=== PATIENT | female | born 1935 | race Caucasian/White ===

== ENCOUNTER 2018-03-28 20:14 | Observation (INO) | payer MEDICARE ==
[~2018-03-28] VITALS: Ht 162.6 cm; Wt 54.4 kg
[~2018-03-28 20:14] MED LIST: ADULT ASPIRIN81 MG; ALLEGRA ALLERG180 MG PO; AMARYL1 MG PO; AMLODIPINE BESYL5 MG PO; ASPIR 8181 MG PO; ATORVASTATIN CA10 MG PO; CYANOCOBAL1000 MCG/M PO; DYNACIRC; FISH OIL 1,0001 EAC2 PO; FISH OIL OMEGA1 EACH PO; GABAPENTIN100 MG PO; INTEGRA PLUS C1 EACH PO; LEVOTHROID75 MCG PO; LOSARTAN POTASS25 MG PO; METOPROLOL SUCC50 MG PO; OMEPRAZOLE40 MG PO; PAROXETINE HCL20 MG PO; STOOL SOFTENER1 EAC2; STOOL SOFTENER100 MG PO; TRICOR48 MG PO; Z.0.AMARYL1 MG; Z.0.LIPITOR10 MG; Z.0.PRILOSEC20 MG; Z.0.SYNTHROID75 MCG; Z.0.TOPROL XL50 MG; Z.0.TRICOR48 MG; ZOFRAN PO; [UNRECOGNIZED DRUG - OTHER]
[2018-03-28 20:47] VITALS: BP 158/70
[2018-03-28 20:59] VITALS: BP 158/70
[2018-03-28] MEDS ORDERED: FAMOTIDINE20 MG PO (21:05)
[2018-03-28] MEDS ORDERED: PROLIA60 MG/1 ML IM (21:05)
[2018-03-28] MEDS ORDERED: CALCITRIOL0.25 MCG PO (21:05)
[2018-03-28] MEDS ORDERED: RENAGEL800 MG PO (21:05)
[2018-03-28] MEDS ORDERED: BUMETANIDE1 MG PO (21:05)
[2018-03-28] MEDS ORDERED: ACETAMINOPHEN 325 MG TAB PO PRN (21:15)
[2018-03-28] MEDS ORDERED: DENOSUMAB 60 MG IM SCH (21:15)
[2018-03-28 21:29] VITALS: BP 158/70
[2018-03-29] VITALS (8 sets, daily range): BP systolic 143–163; BP diastolic 65–70
[2018-03-29] MEDS: LEVOTHYROXINE SODIUM 75 MCG TAB PO SCH (06:26)
[2018-03-29] MEDS ORDERED: DENOSUMAB 60 MG IM SCH (06:30)
[2018-03-29 08:03] LABS: BASOPHILS % 0.6 % (0.0-1.0); EOSINOPHILS # (AUTO) 0.3 (0.0-0.4); EOSINOPHILS % 4.2 % (0.0-6.0); HEMATOCRIT 34.4 % (34.2-44.1); HEMOGLOBIN 11.6 g/dL (12.0-16.0); LYMPHOCYTES # (AUTO) 1.5 (1.0-3.2); LYMPHOCYTES % 22.9 % (18.0-39.1); MEAN CORPUSCULAR HEMOGLOBIN 30.2 pg (28-32); MEAN CORPUSCULAR HGB CONC 33.7 g/dL (31-35); MEAN CORPUSCULAR VOLUME 89.6 fL (81-99); MONOCYTES # (AUTO) 0.7 (0.2-0.8); MONOCYTES % 10.8 % (4.4-11.3); NEUTROPHILS # (AUTO) 4.1 (2.1-6.9); NEUTROPHILS % 61.2 % (38.7-80.0); PLATELET COUNT 94 x10e3/uL (140-360); RED BLOOD COUNT 3.84 x10e6/uL (3.6-5.1); RED CELL DISTRIBUTION WIDTH 13.2 % (11.7-14.4)
[2018-03-29 08:18] LABS: CREATININE, SERUM 6.02 mg/dL (0.57-1.11)
[2018-03-29] MEDS ORDERED: CALCITRIOL 0.25 MCG CAP PO SCH (09:00)
[2018-03-29] MEDS ORDERED: LORATADINE 10 MG TAB PO PRN (09:00)
[2018-03-29] MEDS: SEVELAMER CARBONATE 800 MG TAB PO SCH ×3 (09:16→17:07)
[2018-03-29] MEDS: AMLODIPINE BESYLATE 5 MG TAB PO SCH (09:16)
[2018-03-29] MEDS: OMEGA 3 POLYUNSAT FATTY ACIDS 1000 MG SOFTGEL PO SCH ×2 (09:16→17:07)
[2018-03-29] MEDS: BUMETANIDE 1 MG TAB PO SCH (09:16)
[2018-03-29] MEDS: PAROXETINE HCL 20 MG TAB PO SCH (09:16)
[2018-03-29] MEDS: FAMOTIDINE 20 MG TAB PO SCH (09:16)
[2018-03-29] MEDS ORDERED: PANTOPRAZOLE SOD 40 MG TABEC PO ONE (10:15)
[2018-03-29] MEDS ORDERED: CLOPIDOGREL BISULFATE 75 MG TAB PO ONE (12:15)
--- NOTE | 2018-03-29 13:25 | Consultation ---
DATE OF CONSULTATION: March 29, 2018 CARDIAC CONSULTATION REASON FOR CONSULTATION: Chest pain. HISTORY: This is a delightful, 82-year-old lady, who is known to me over the years. She is known with coronary artery disease, hypertension, hypercholesterolemia, diabetes mellitus, chronic kidney disease. The patient in 2014 had PD dialysis. It was stopped in June 2015 and then restarted again in November 2016. Patient is followed in my office. Her latest nuclear stress test was in early January 2018 which was an adenosine nuclear stress test, and it showed only presence of a small defect. We elected to treat her medically. Patient is maintained on appropriate medical therapy. However, for the last 3 days, she is having repetitive severe chest pain radiating to the back associated with diaphoresis and dizzy spells. She came to the emergency room and subsequently admitted to this institution with unstable coronary syndrome. Cardiac consultation is obtained. The patient's symptoms are as per above. There are no congestive heart failure-like symptoms although sometimes she gets easy fatigability and shortness of breath on exertion. Patient is on appropriate medical therapy with beta ilan, calcium channel ilan, statin and aspirin. REVIEW OF SYSTEMS GENERAL: No fever. No chills. HEENT: Unremarkable. PULMONARY: Moderate shortness of breath on exertion. Cough. No pleuritic chest pain. CARDIAC: As per acute illness. GI: No hematemesis. No melena. HEMATOLOGY: Easy bruising but no bleeding. : Patient on PD dialysis. MUSCULOSKELETAL: Stiffness in the morning. PERIPHERAL VASCULAR: No claudication. NEUROLOGICAL: No headache. No seizure activity. SOCIAL HISTORY: She is . She never smoked. She is a nonalcohol-drinker. 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 HOME MEDICATIONS: Include: 1. Aspirin 81 mg a day. 2. Metoprolol succinate 50 mg a day. 3. Amlodipine 5 mg twice a day. 4. Atorvastatin 20 mg a day. 5. Fish oil 1 capsule twice a day. 6. Levothyroxine 75 mcg a day. 7. Sodium bicarbonate. 8. Pepcid. 9. Vitamin D. 10. Paroxetine 10 mg a day. 11. Vitamin B12 monthly. 12. Calcitriol. 13. Terazosin. 14. Nubia. 15. Prolia. 16. P.R.N. Zofran. ALLERGIES: PLAVIX IN THE PAST, PATIENT HAD RASH. ATORVASTATIN IN THE PAST, PATIENT ALSO HAD A RASH, BUT CURRENTLY SHE IS TOLERATING HER ATORVASTATIN. SOCIAL HISTORY: She is . She is a nonsmoker. She does not drink alcohol. 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 PAST MEDICAL HISTORY 1. Coronary artery disease. 2. Peritoneal dialysis in 2014 and restarted again in November 2016, and since then she is on. 3. Anemia. 4. Diabetes mellitus. 5. Hypertension. 6. Hypercholesterolemia. 7. Hypothyroidism. 8. Palpitations. 9. Osteoporosis. 10. Partial hysterectomy. 11. Cholecystectomy. 12. [place] PD dialysis placement in February 2015, removal in June 2015, replacement in December 2016. PHYSICAL EXAMINATION GENERAL: Nice built lady in no acute distress. Height 5 feet 4 inches, weight of 120 pounds. VITALS: Blood pressure 160/70. Heart rate of 60. Respiratory rate of 18. HEENT: Pupils are reactive. NECK: No elevation of jugular venous pulsation. CHEST: Decreased air entry in bases. HEART: PMI at 5th left intercostal space. Normal 1st and 2nd heart sounds. ABDOMEN: Soft, with good bowel sounds. No organomegaly. PD catheter noted in place. EXTREMITIES: No cyanosis. No clubbing. No signs of deep venous thrombosis. NEUROLOGIC: Nonfocal. IMPRESSION AND PLAN 1. Coronary artery disease with angina, unstable coronary syndrome. 2. Positive stress test in January 2018, treated medically. 3. Mild aortic stenosis documented by echocardiogram showing mean gradient of 10 mmHg with mild aortic regurgitation. 4. Hypercholesterolemia. 5. End-stage renal disease on peritoneal dialysis. Since the patient had already noninvasive cardiac workup and her other health problems, plan will be for cardiac catheterization in the morning. The procedure, risks, benefits, and alternatives are discussed and explained. Will continue her beta ilan. Will continue her statin. Will give her a loading dose of Plavix with observation for her rash. Depending on her course, further steps to be done. Job#: [id number]
--- NOTE | 2018-03-29 15:11 | Consultation ---
DATE OF CONSULTATION: March 29, 2018 HISTORY OF PRESENT ILLNESS: Patient is known to our nephrology service. She is an 82-year-old white female with underlying history of end-stage renal disease, presented with heartburn which was lasting intermittently for the last 24 hours. Got worse with some chest tightness. Subsequently came into the hospital. Her manager hydraulic is Dr. Man. She has had past history of end-stage renal disease, hypertension, secondary hyperparathyroidism, history of hyperlipidemia, hypothyroidism, history of type 2 diabetes, history of prior cholecystectomy, history of positive stress test, mild aortic stenosis, history of coronary artery disease. ALLERGIES: TO LANSOPRAZOLE. CURRENT MEDICATIONS 1. Patient is on normal saline which I have stopped. 2. She is on amlodipine 10 mg daily. 3. Aspirin 81 mg bedtime. 4. Atorvastatin 20 mg bedtime. 5. Bumex 2 mg daily. 6. She is on calcitriol 0.25 mg daily. 7. Famotidine. 8. Levothyroxine 75 mcg daily. 9. Metoprolol 50 mg p.o. nightly. 10. [place]-3 fatty acid. 11. Pantoprazole. 12. Paxil 10 mg daily. 13. Renagel 800 mg p.o. t.i.d. with meals. 14. Denosumab (Prolia) 60 mg IM p.r.n. SOCIAL HISTORY: Does not smoke or drink. . FAMILY HISTORY: Significant for hypertension. PHYSICAL EXAMINATION GENERAL: Awake, alert, lying supine. No apparent distress. VITALS: Blood pressure 160/67, pulse rate 66, afebrile. HEAD AND NECK: Cornea clear. Mucosa dry. Neck veins flat. LUNGS: Relatively clear. HEART: S1 and S2 audible. ABDOMEN: Soft, nontender. Peritoneal dialysis exit site satisfactory. Dressing noted, dry. LOWER EXTREMITY EXAMINATION: No edema. LABORATORY DATA: White count 6.69, hemoglobin 11.6. Potassium 4, creatinine 6, calcium 10. IMPRESSION AND PLAN: End-stage renal disease with angina. Workup deferred to Dr. Man. Calcium upper limit of normal. I will discontinue calcitriol. Arrange for peritoneal dialysis. She does 1.5% dextrose alternating with 2.5%. She does 5 exchanges with 500 mL of last bag option. Will do 5 cycles tonight and with a 1,000-mL last bag option in the morning. Volume status appears stable. Blood pressure stable. Electrolytes noted. Calcitriol discontinued. Please see orders. Job#: [id number] TA
[2018-03-29] MEDS: METOPROLOL SUCCINATE 50 MG TAB XL PO SCH (20:51)
[2018-03-29] MEDS: ASPIRIN 81 MG CHEW TAB PO SCH (20:51)
[2018-03-29] MEDS ORDERED: ATORVASTATIN 10 MG TAB PO SCH (21:00)
[2018-03-30] VITALS (14 sets, daily range): BP systolic 132–169; BP diastolic 51–71
[2018-03-30] MEDS: LEVOTHYROXINE SODIUM 75 MCG TAB PO SCH (05:21)
[2018-03-30 05:33] LABS: BASOPHILS % 0.3 % (0.0-1.0); EOSINOPHILS # (AUTO) 0.3 (0.0-0.4); EOSINOPHILS % 3.8 % (0.0-6.0); HEMATOCRIT 34.8 % (34.2-44.1); HEMOGLOBIN 11.6 g/dL (12.0-16.0); LYMPHOCYTES # (AUTO) 0.5 (1.0-3.2); MEAN CORPUSCULAR HEMOGLOBIN 30.2 pg (28-32); MEAN CORPUSCULAR HGB CONC 33.3 g/dL (31-35); MEAN CORPUSCULAR VOLUME 90.6 fL (81-99); MONOCYTES # (AUTO) 0.7 (0.2-0.8); MONOCYTES % 10.7 % (4.4-11.3); NEUTROPHILS % 76.4 % (38.7-80.0); PLATELET COUNT 92 x10e3/uL (140-360); RED BLOOD COUNT 3.84 x10e6/uL (3.6-5.1); RED CELL DISTRIBUTION WIDTH 13.3 % (11.7-14.4)
[2018-03-30 05:55] LABS: CHOL/HDL RATIO 3.6 (3.0-3.6)
[2018-03-30 06:19] LABS: THYROID STIMULATING HORMONE 1.496 uIU/mL (0.350-4.940)
[2018-03-30] MEDS ORDERED: SODIUM CHLORIDE 0.9% 1000ML 1,000 ML IV SCH (07:30)
[2018-03-30] MEDS: PANTOPRAZOLE SOD 40 MG TABEC PO SCH (07:30)
[2018-03-30] MEDS: FAMOTIDINE 20 MG TAB PO SCH (07:30)
[2018-03-30] MEDS: SEVELAMER CARBONATE 800 MG TAB PO SCH ×3 (07:41→17:00)
[2018-03-30] MEDS: OMEGA 3 POLYUNSAT FATTY ACIDS 1000 MG SOFTGEL PO SCH ×2 (07:41→17:00)
[2018-03-30] MEDS: PAROXETINE HCL 20 MG TAB PO SCH (07:42)
[2018-03-30] MEDS: AMLODIPINE BESYLATE 5 MG TAB PO SCH (08:25)
[2018-03-30] MEDS: BUMETANIDE 1 MG TAB PO SCH (08:25)
[2018-03-30 08:41] LABS: EOSINOPHILS % (MANUAL) 2 % (0-7); LYMPHOCYTES % (MANUAL) 7 % (19-48); MONOCYTES % (MANUAL) 10 % (3.4-9.0); NEUTROPHILS % (MANUAL) 81 % (40-74)
[2018-03-30 08:42] LABS: ANISOCYTOSIS SLIGHT; HYPOCHROMASIA SLIGHT; PLATELET ESTIMATE ADEQUATE; PLATELET MORPHOLOGY COMMENT NORMAL; RBC MORPHOLOGY COMMENT NORMAL
[2018-03-30] MEDS ORDERED: CALCITRIOL 0.25 MCG CAP PO SCH (09:00)
[2018-03-30] MEDS ORDERED: LIDOCAINE HCL 2% LOCAL 20 ML VIAL ONE (10:22)
[2018-03-30] MEDS ORDERED: IOPAMIDOL 370 MG/ML 200 ML INFUS..BTL INJ ONE (10:22)
[2018-03-30] MEDS ORDERED: HEPARIN SOD/SOD CHLORIDE 2,000 ML ONE (10:22)
[2018-03-30] MEDS ORDERED: SODIUM CHLORIDE 0.9% 1000ML 1,000 ML ONE (10:23)
[2018-03-30] MEDS ORDERED: FENTANYL CITRATE/PF 100MCG/2 ML INJ ONE (10:23)
[2018-03-30] MEDS ORDERED: MIDAZOLAM HCL 2 MG/2 ML VIAL ONE (10:23)
--- NOTE | 2018-03-30 12:33 | Operative Report ---
DATE OF PROCEDURE: TITLE OF PROCEDURE: Left cardiac catheterization. INDICATIONS: Patient with renal failure. Had adenosine nuclear stress test 3 months ago which was low to moderate risk study, was treated medically. Patient is known with moderate LAD disease many years ago. Patient came to this institution with repeated chest pain, chest pressure, chest tightness, dizziness and diaphoresis. Because of that and because patient already had noninvasive workup, we decided to proceed with the cardiac catheterization. TECHNICAL DETAILS: After the usual sterile preparation and draping procedure, intravenous Versed and fentanyl given for sedation, local Xylocaine for anesthesia, a 4-Bengali sheath established in place. Whit left 4 and 3DRC catheter to engage coronaries. Pigtail for hemodynamic measurement and left ventriculogram. At the end of the procedure, sheath was removed. Hemostasis achieved manually. No complication and no blood loss. RESULTS A. Coronary angiogram. 1. Left main. Minimal plaquing. 2. LAD. LAD having very high 1st diagonal uptake with 70% lesion. The artery is approximately 2 mm in diameter. There is 40% to 50% LAD disease. 3. Circumflex coronary artery. Minimal plaquing. 4. Right coronary artery 40% lesion. 5. B. Hemodynamics. Aorta pressure 130/80. LV pressure 130/20. 6. C. Left ventriculogram in the right anterior oblique view showed normal size ventricle with an ejection fraction of 60% to 70%. Other finding: Heavily, heavily calcified aorta. IMPRESSION: Moderate coronary artery disease with the worst lesion in the high diagonal, 60% to 70%, a 2 mm artery. There is 40% to 50% left anterior descending and right coronary artery disease. Left ventricular ejection fraction is preserved at 60% to 70%. RECOMMENDATION: Aggressive medical therapy. COMPLICATION: None. BLOOD LOSS: None. Job#: [id number] EV
[2018-03-30] MEDS: METOPROLOL SUCCINATE 50 MG TAB XL PO SCH (21:00)
[2018-03-30] MEDS ORDERED: ATORVASTATIN 20 MG TAB PO SCH (21:00)
[2018-03-30] MEDS: ASPIRIN 81 MG CHEW TAB PO SCH (21:15)
[2018-03-31 00:14] VITALS: BP 127/62
[2018-03-31 05:42] VITALS: BP 138/60
[2018-03-31] MEDS: LEVOTHYROXINE SODIUM 75 MCG TAB PO SCH (05:44)
[2018-03-31 07:37] VITALS: BP 161/70
[2018-03-31 08:35] VITALS: BP 161/70
[2018-03-31] MEDS: OMEGA 3 POLYUNSAT FATTY ACIDS 1000 MG SOFTGEL PO SCH (08:35)
[2018-03-31] MEDS: PAROXETINE HCL 20 MG TAB PO SCH (08:35)
[2018-03-31] MEDS: FAMOTIDINE 20 MG TAB PO SCH (08:35)
[2018-03-31] MEDS: BUMETANIDE 1 MG TAB PO SCH (08:35)
[2018-03-31] MEDS: PANTOPRAZOLE SOD 40 MG TABEC PO SCH (08:35)
[2018-03-31] MEDS: SEVELAMER CARBONATE 800 MG TAB PO SCH ×2 (08:35→12:33)
[2018-03-31] MEDS ORDERED: AMLODIPINE BESYLATE 10 MG TAB PO SCH (09:00)
[2018-03-31] MEDS ORDERED: PROTONIX40 MG/ML PO (09:23)
--- NOTE | 2018-03-31 10:04 | Discharge Summary ---
DISCHARGE DIAGNOSES 1. Coronary artery disease, stable. 2. End-stage renal disease, on peritoneal dialysis. 3. Hypertension, controlled. 4. Gastroesophageal reflux disease. HOSPITAL COURSE: Ms. Ling is a very pleasant 82-year-old lady, well known to me from the office and prior hospital admissions. She was in her usual state of health until the night of her admission when she experienced significant discomfort, localized in the epigastric and chest areas. She thought she was having indigestion but this was not resolving and then decided to come to the ED for evaluation. She had 3 sets of cardiac enzymes all negative. Her EKG was negative for any acute changes and she was then admitted and evaluated by her bottle blower, Dr. Man. Due to a prior abnormal nuclear stress test, she was scheduled for cardiac catheterization. This was carried out with findings of established but stable coronary artery disease. No culprit vessel was found and recommendation was made to discharge with intensification of her medical therapy. The patient had been asked to stop taking her proton pump inhibitor by apparently her renal provider. This will be restarted and the patient is to follow up in my office 1 week after discharge. VANI ROSADO MD Job#: [id number]
[2018-03-31 12:28] VITALS: BP 125/59
== END 2018-03-31 13:56 | disposition home or self-care (01) ==
LOC: IMCU 20:30 → MED/SURG 03-31 07:12
PROVIDERS: ADMIT Internal Medicine; ATTEND Internal Medicine
DX: I25.10 Atherosclerotic heart disease of native coronary artery without angina pectoris (principal); R07.89 Other chest pain; E11.22 Type 2 diabetes mellitus with diabetic chronic kidney disease; I12.0 Hypertensive chronic kidney disease with stage 5 chronic kidney disease or end stage renal disease; N18.6 End stage renal disease; Z99.2 Dependence on renal dialysis; Z86.73 Personal history of transient ischemic attack (TIA), and cerebral infarction without residual deficits; E78.00 Pure hypercholesterolemia, unspecified; I35.0 Nonrheumatic aortic (valve) stenosis; N25.81 Secondary hyperparathyroidism of renal origin; E78.5 Hyperlipidemia, unspecified; E03.9 Hypothyroidism, unspecified; K21.9 Gastro-esophageal reflux disease without esophagitis
CPT/HCPCS: 36415 ×2; 77002; 80048; 80061; 82550; 82553; 84443; 84484; 85025 ×2; 93458; C1766; G0378 ×4; J2001; J2250; J7030; Q9967; S0164 ×2; 90945

== ENCOUNTER 2018-05-15 09:25 | Inpatient (IN) | payer MEDICARE ==
[2018-05-15] VITALS (7 sets, daily range): BP systolic 107–152; BP diastolic 53–59
[~2018-05-15] VITALS: Ht 162.6 cm; Wt 57.8 kg
[~2018-05-15 09:25] MED LIST changes: +BUMETANIDE1 MG PO; +CALCITRIOL0.25 MCG PO; +FAMOTIDINE20 MG PO; +PROLIA60 MG/1 ML IM; +PROTONIX40 MG/ML PO; +RENAGEL800 MG PO
[2018-05-15 10:25] LABS: BASOPHILS % 0.5 % (0.0-1.0); EOSINOPHILS # (AUTO) 0.2 (0.0-0.4); EOSINOPHILS % 4.1 % (0.0-6.0); HEMOGLOBIN 7.5 g/dL (12.0-16.0); LYMPHOCYTES # (AUTO) 0.8 (1.0-3.2); LYMPHOCYTES % 13.5 % (18.0-39.1); MEAN CORPUSCULAR HEMOGLOBIN 30.6 pg (28-32); MEAN CORPUSCULAR HGB CONC 33.2 g/dL (31-35); MEAN CORPUSCULAR VOLUME 92.2 fL (81-99); MONOCYTES # (AUTO) 0.6 (0.2-0.8); MONOCYTES % 10.7 % (4.4-11.3); NEUTROPHILS % 70.3 % (38.7-80.0); PLATELET COUNT 174 x10e3/uL (140-360); RED BLOOD COUNT 2.45 x10e6/uL (3.6-5.1); RED CELL DISTRIBUTION WIDTH 14.5 % (11.7-14.4)
[2018-05-15 10:28] LABS: INR 1.22; PROTHROMBIN TIME 14.5 seconds (11.9-14.5)
[2018-05-15 10:31] LABS: HEMATOCRIT 22.6 % (34.2-44.1)
[2018-05-15 10:41] LABS: ALBUMIN 2.5 g/dL (3.5-5.0); ALBUMIN/GLOBULIN RATIO 0.7 (0.8-2.0); CALCIUM 8.6 mg/dL (8.4-10.2); CREATININE, SERUM 4.79 mg/dL (0.57-1.11); MAGNESIUM 1.5 MG/DL (1.3-2.1)
[2018-05-15 10:47] LABS: CREATINE KINASE MB 0.8 ng/mL (0-5.0)
--- NOTE | 2018-05-15 10:56 | Diagnostic Imaging Report ---
EXAMINATION: Head CT HISTORY: Slurred speech, stroke symptoms COMPARISON: Head CT on 07/03/2017 TECHNIQUE: Multidetector axial images were obtained without contrast from the foramen magnum to the vertex . The images were reconstructed using brain and bone algorithms. Thin section brain images were reformatted into coronal and sagittal planes. Image quality: Motion/streaking artifact limits the evaluation of the skull base and posterior cranial fossa. Dose modulation, iterative reconstruction, and/or weight based adjustment of the mA/kV was utilized to reduce the radiation dose to as low as reasonably achievable. FINDINGS: Parenchyma: 1. Unchanged minimal chronic microvascular ischemic changes. 2. No mass or hemorrhage. No CT evidence of acute territorial vascular insult. Extra-axial spaces:No abnormal density. No extra-axial fluid collections Brain volume: Persistent mild generalized brain volume loss, within normal limits for the gestational. Ventricles: No hydrocephalus or displacement. Arteries: No density suggestive of thrombus. Dural sinuses: No abnormal density. Extra-axial spaces: No abnormal density. Foramen magnum: No mass, Chiari malformation, or basilar invagination. Sella: No obvious mass. Paranasal/mastoid sinuses: Imaged portions unremarkable. Skull/Scalp: No lytic or blastic lesions. No fractures. IMPRESSION: 1. No acute intracranial hemorrhage or cortical infarct. 2. Stable mild chronic microvascular ischemic changes changes. Signed by: Dr. Jeane Rosario M.D. on 05/15/2018 10:52 AM
[2018-05-15 12:27] LABS: CLARITY,URINE HAZY (CLEAR); COLOR,URINE YELLOW (YELLOW); KETONES,URINE NEGATIVE (NEGATIVE); LEUKOCYTE ESTERASE ,URINE NEGATIVE (NEGATIVE); NITRITE,URINE NEGATIVE (NEGATIVE); PROTEIN,URINE DIPSTICK 2+ (NEGATIVE); URINE UROBILINOGEN 0.2 mg/dL (0.2 - 1)
[2018-05-15 12:28] LABS: BILIRUBIN,URINE NEGATIVE (NEGATIVE)
[2018-05-15 12:45] LABS: RBC,URINE 0-5 /HPF (0-5); WBC,URINE (MAN) 0-5 /HPF (0-5)
[2018-05-15 12:46] LABS: EPITHELIAL CELLS,URINE MANY /LPF; TRANSITIONAL EPI CELLS,URINE MANY
[2018-05-15] MEDS ORDERED: SODIUM CHLORIDE FLUSH 10 ML SYR INJ PRN (13:15)
[2018-05-15] MEDS ORDERED: FUROSEMIDE INJ 10 MG/ML 4 ML VIAL IV ONE (13:15)
[2018-05-15] MEDS ORDERED: TERAZOSIN HCL1 MG PO (15:38)
[2018-05-15] MEDS ORDERED: SODIUM CHLORIDE 0.9% 250ML 250 ML ONE (15:58)
[2018-05-15] MEDS ORDERED: HYDRALAZINE HCL 20 MG/ML VIAL IV STA (17:16)
[2018-05-15] MEDS: SEVELAMER CARBONATE 800 MG TAB PO SCH (18:22)
[2018-05-15] MEDS ORDERED: ACETAMINOPHEN 325 MG TAB PO PRN (20:30)
[2018-05-15] MEDS ORDERED: PROMETHAZINE 12.5MG/ NACL 0.9% 12.5 MG/50 ML BAG IV PRN (20:30)
[2018-05-15] MEDS ORDERED: MAGNESIUM HYDROXIDE 30 ML UDC PO PRN (20:30)
[2018-05-15] MEDS ORDERED: MAGNESIUM/ALUMINUM/SIMETHICONE 30 ML UDC PO PRN (20:30)
[2018-05-15] MEDS ORDERED: ZOLPIDEM TARTRATE 5 MG TAB PO PRN (20:30)
[2018-05-15] MEDS: METOPROLOL SUCCINATE 50 MG TAB XL PO SCH (20:56)
[2018-05-15] MEDS ORDERED: ATORVASTATIN 10 MG TAB PO SCH (21:00)
[2018-05-15] MEDS: ATORVASTATIN 20 MG TAB PO SCH (21:42)
[2018-05-15] MEDS: ASPIRIN 81 MG CHEW TAB PO SCH (21:42)
[2018-05-16] VITALS (7 sets, daily range): BP systolic 105–144; BP diastolic 47–70
[2018-05-16 05:29] LABS: BASOPHILS % 0.4 % (0.0-1.0); EOSINOPHILS # (AUTO) 0.2 (0.0-0.4); EOSINOPHILS % 3.4 % (0.0-6.0); LYMPHOCYTES # (AUTO) 1.1 (1.0-3.2); LYMPHOCYTES % 20.2 % (18.0-39.1); MEAN CORPUSCULAR HEMOGLOBIN 30.2 pg (28-32); MEAN CORPUSCULAR HGB CONC 32.6 g/dL (31-35); MEAN CORPUSCULAR VOLUME 92.7 fL (81-99); MONOCYTES # (AUTO) 0.6 (0.2-0.8); MONOCYTES % 11.8 % (4.4-11.3); NEUTROPHILS # (AUTO) 3.4 (2.1-6.9); NEUTROPHILS % 63.8 % (38.7-80.0); PLATELET COUNT 178 x10e3/uL (140-360); RED BLOOD COUNT 2.32 x10e6/uL (3.6-5.1); RED CELL DISTRIBUTION WIDTH 14.8 % (11.7-14.4)
[2018-05-16 05:38] LABS: HEMATOCRIT 21.5 % (34.2-44.1)
[2018-05-16] MEDS: LEVOTHYROXINE SODIUM 75 MCG TAB PO SCH (06:07)
[2018-05-16 07:06] LABS: ANION GAP 16.2 mmol/L (8-16); CALCIUM 8.2 mg/dL (8.4-10.2); CREATININE, SERUM 4.94 mg/dL (0.57-1.11); POTASSIUM 3.2 mmol/L (3.5-5.1)
[2018-05-16] MEDS: SEVELAMER CARBONATE 800 MG TAB PO SCH ×3 (08:23→17:50)
[2018-05-16] MEDS: PANTOPRAZOLE SOD 40 MG TABEC PO SCH (08:26)
[2018-05-16] MEDS: FAMOTIDINE 20 MG TAB PO SCH (08:27)
[2018-05-16] MEDS ORDERED: AMLODIPINE BESYLATE 5 MG TAB PO SCH (09:00)
[2018-05-16] MEDS: PAROXETINE HCL 20 MG TAB PO SCH (09:58)
[2018-05-16] MEDS: AMLODIPINE BESYLATE 10 MG TAB PO SCH (09:58)
[2018-05-16] MEDS: BUMETANIDE 1 MG TAB PO SCH (09:58)
[2018-05-16 10:08] LABS: % IRON SATURATION 17 % (15-50); IRON 37 ug/dL (50-170); TOTAL IRON BINDING CAPACITY 217 ug/dL (261-478); TRANSFERRIN 155 mg/dL (180-382)
--- NOTE | 2018-05-16 10:11 | History and Physical ---
Ms. Ling is a complex and elderly 82-year-old woman who presents to the emergency room today with a complaint of "weakness and trembling." HISTORY OF PRESENT ILLNESS: The patient reports that she was treated with IV antibiotics for peritonitis twice last week; but on Tuesday, Tuesday and Tuesday each day she felt weakness and trembling. She denies any fever. PAST MEDICAL HISTORY: Significant for hypertension and kidney failure. She reports she has been on peritoneal dialysis for about the past 1 year. HOME MEDICATIONS: Include: 1. Amlodipine 5 mg daily. 2. Aspirin 81 mg daily. 3. Atorvastatin 10 mg daily. 4. Bumetanide 2 mg daily. 5. Calcitriol 0.25 mg daily. 6. Prolia 60-mg injection monthly. 7. Famotidine 20 mg daily. 8. Nubia 180 mg daily. 9. Levothyroxine 75 mcg daily. 10. Metoprolol succinate XL 50 mg each evening. 11. [place] 3 fish oil. 12. Protonix 40 mg daily. 13. Paroxetine 10 mg daily. 14. Renagel 800 mg t.i.d. 15. Terazosin 2 mg at bedtime. PAST SURGICAL HISTORY: She had a peritoneal dialysis catheter placed about a year ago. FAMILY HISTORY: Noncontributory. PERSONAL AND SOCIAL HISTORY: She does not smoke or drink. She lives with her . PHYSICAL EXAMINATION GENERAL: Exam at this time shows an elderly white woman who is alert and responsive. VITAL SIGNS: Blood pressure 130/60. She is afebrile. HEENT: Unremarkable. NECK: No jugular venous distention. THORAX: Heart sounds S1, S2 are equal. No murmurs. LUNGS: Clear. ABDOMEN: Protuberant with a catheter in the right lower quadrant without visible erythema. Abdomen has no significant tenderness. EXTREMITIES: No cyanosis, clubbing or edema. PERTINENT LABORATORY STUDIES: Hemoglobin of 7.5, hematocrit 22.6, white count 5.6. BNP is 321. BUN 16, creatinine 4.79, and glucose 135. ASSESSMENT 1. Weakness and trembling, etiology not clear. 2. Anemia with hemoglobin 7.5, likely anemia of chronic disease from renal failure. 3. History of recent peritonitis with peritoneal dialysis for end-stage renal failure. PLAN: The patient has already been ordered a transfusion by the ER doctor. Will monitor and ask for consultation with Dr. Turner for further management of kidney failure and previous diagnosis of peritonitis. Further management will be based on clinical course. Job#: [id number] cc:MD SALUD PERKINS MD
[2018-05-16 10:44] LABS: FOLATE 7.3 ng/mL (7.0-15.4)
[2018-05-16] MEDS ORDERED: POTASSIUM CHLORIDE 20 MEQ TAB CR PO STA (11:37)
--- NOTE | 2018-05-16 12:18 | Diagnostic Imaging Report ---
PROCEDURE: A single AP view of the chest. COMPARISON: Chest radiograph 07/03/17. INDICATIONS: POSSIBLE STROKE FINDINGS: Lines/tubes: None. Lungs: Patchy consolidation in the left lower lobe. Right lung is clear. No evidence of pulmonary edema. Pleura: There is no pleural effusion or pneumothorax. Heart and mediastinum: Cardiomediastinal silhouette is unchanged accounting for portable technique. Atherosclerotic calcifications of the aortic arch. Bones: No acute bony abnormality. IMPRESSION: Patchy consolidation in the left lower lobe which could represent aspiration or pneumonia in the appropriate clinical setting. Follow-up radiograph in 6-8 weeks to assess for resolution is suggested. Dictated by: JAZMYN ANDRES M.D. on 05/15/2018 at 10:46 Electronically approved by: JAZMYN ANDRES M.D. on 05/15/2018 at 10:46
--- NOTE | 2018-05-16 13:11 | Consultation ---
DATE OF CONSULTATION: May 16, 2018. HISTORY OF PRESENT ILLNESS: Ms. Eloina Ling is well known to me. She is a delightful 82-year-old female, underlying history of end-stage renal disease, hypertension with stable coronary artery disease and GERD, presented with anemia. She is on peritoneal dialysis. She recently had a left cardiac cath shows moderate coronary artery disease with worse lesion in the high diagonal 60% to 70%. There is a 40% to 50% left anterior descending right coronary artery disease, left ventricular ejection fraction preserved at 60% to 70%. She also has a history of underlying hypothyroidism, hypertension, and hyperlipidemia. She has had prior cholecystectomy and mild aortic stenosis. SOCIAL HISTORY: She does not smoke or drink. She has got a very supportive . FAMILY HISTORY: Significant for hypertension. ALLERGIES: LANSOPRAZOLE. CURRENT MEDICATIONS: Patient is on: 1. Amlodipine 10 mg daily. 2. Aspirin 81 mg daily. 3. Atorvastatin 20 mg bedtime. 4. Bumex 2 mg daily. 5. Levothyroxine 75 mcg daily. 6. Metoprolol 50 mg at bedtime. 7. Pantoprazole 40 mg p.o. q.a.c. 8. Paxil 10 mg daily. 9. Renagel 800 mg p.o. t.i.d. with meals. PHYSICAL EXAMINATION GENERAL: Awake, alert, laying supine, in no apparent distress. VITALS: Blood pressure 131/75, pulse rate 73, afebrile, oxygen saturation 96% on room air. HEAD AND NECK: Cornea clear. Oral mucosa dry. LUNGS: Relatively clear. No rales or rhonchi. HEART: S1 and S2 audible. ABDOMEN: Otherwise, soft and nontender. LOWER EXTREMITY: Shows no edema. LABORATORY DATA: Show white count of 5.3 and hemoglobin 7. She was given 1 unit of packed RBC yesterday, but she developed chest pressure during transfusion. Transfusion was stopped. Today, potassium 3.2 and creatinine 4.9. She has got a serum iron of 37, transferrin sat 17. She has got a BNP of 321. AST and ALT normal. Folic acid 7.3. B12 of 539. IMPRESSION 1. Hypokalemia. 2. End-stage renal disease, on peritoneal dialysis. Peritoneal dialysis catheter site satisfactory. Abdomen soft. PLAN: On continuing her prescription of 1.5% dextrose alternating with 2.5% 2 liter fill, 5 exchanges. I will give IV iron and erythropoietin at 10,000 units subcu every Tuesday, , Tuesday and IV iron. Hopefully, we will be able to avoid packed RBC transfusions. We will send for stool guaiacs. She may need GI evaluation and possible endoscopy. Defer to primary care physician. Please see orders. Job#: [id number] SUB
[2018-05-16] MEDS ORDERED: SODIUM CHLORIDE 0.9% 250ML 0 ML ONE (13:22)
[2018-05-16] MEDS: IRON SUCROSE 100 MG in SODIUM CHLORIDE 0.9% 100 ML 100 ML IV SCH (13:38)
[2018-05-16] MEDS: ASPIRIN 81 MG CHEW TAB PO SCH (21:00)
[2018-05-16] MEDS: ATORVASTATIN 20 MG TAB PO SCH (21:00)
[2018-05-16] MEDS: METOPROLOL SUCCINATE 50 MG TAB XL PO SCH (21:00)
[2018-05-17] VITALS: BP 120/58
[2018-05-17 04:00] VITALS: BP 120/54
[2018-05-17 05:26] LABS: BASOPHILS % 0.6 % (0.0-1.0); EOSINOPHILS # (AUTO) 0.2 (0.0-0.4); EOSINOPHILS % 3.5 % (0.0-6.0); HEMOGLOBIN 7.5 g/dL (12.0-16.0); LYMPHOCYTES # (AUTO) 0.9 (1.0-3.2); LYMPHOCYTES % 18.3 % (18.0-39.1); MEAN CORPUSCULAR HEMOGLOBIN 30.9 pg (28-32); MEAN CORPUSCULAR VOLUME 93.4 fL (81-99); MONOCYTES # (AUTO) 0.7 (0.2-0.8); MONOCYTES % 13.6 % (4.4-11.3); NEUTROPHILS # (AUTO) 3.3 (2.1-6.9); NEUTROPHILS % 63.6 % (38.7-80.0); PLATELET COUNT 185 x10e3/uL (140-360); RED BLOOD COUNT 2.43 x10e6/uL (3.6-5.1); RED CELL DISTRIBUTION WIDTH 15.3 % (11.7-14.4)
[2018-05-17 05:31] LABS: HEMATOCRIT 22.7 % (34.2-44.1)
[2018-05-17] MEDS: LEVOTHYROXINE SODIUM 75 MCG TAB PO SCH (05:39)
[2018-05-17 05:44] LABS: ANION GAP 12.9 mmol/L (8-16); CALCIUM 8.3 mg/dL (8.4-10.2); CREATININE, SERUM 4.75 mg/dL (0.57-1.11)
[2018-05-17 05:45] LABS: POTASSIUM 2.9 mmol/L (3.5-5.1)
[2018-05-17] MEDS ORDERED: POTASSIUM CHLORIDE 20 MEQ TAB CR PO ONE (07:15)
[2018-05-17] MEDS: FAMOTIDINE 20 MG TAB PO SCH (07:30)
[2018-05-17] MEDS: PANTOPRAZOLE SOD 40 MG TABEC PO SCH (07:30)
[2018-05-17 08:00] VITALS: BP 139/58
[2018-05-17] MEDS: SEVELAMER CARBONATE 800 MG TAB PO SCH ×3 (08:00→17:24)
[2018-05-17] MEDS ORDERED: SODIUM CHLORIDE 0.9% 250ML 250 ML ONE ×2 (08:22→10:52)
[2018-05-17] MEDS ORDERED: POTASSIUM CHLORIDE 20MEQ/100ML 200 ML IV ONE (08:30)
[2018-05-17 08:31] VITALS: BP 139/58
[2018-05-17] MEDS: PAROXETINE HCL 20 MG TAB PO SCH (09:00)
[2018-05-17] MEDS: AMLODIPINE BESYLATE 10 MG TAB PO SCH (09:00)
[2018-05-17] MEDS: BUMETANIDE 1 MG TAB PO SCH (09:00)
[2018-05-17 12:00] VITALS: BP 113/58
[2018-05-17] MEDS: IRON SUCROSE 100 MG in SODIUM CHLORIDE 0.9% 100 ML 100 ML IV SCH (12:30)
[2018-05-17] MEDS ORDERED: FENTANYL CITRATE/PF 100MCG/2 ML INJ ONE (17:59)
[2018-05-17] MEDS ORDERED: PROPOFOL IV EMULSION 10 MG/ML 50 ML VIAL ONE (19:27)
[2018-05-17] MEDS ORDERED: LIDOCAINE HCL 2% LOCAL INJ 5 ML SDV VIAL INJ ONE (19:27)
[2018-05-17 20:00] VITALS: BP 124/58
[2018-05-17] MEDS: METOPROLOL SUCCINATE 50 MG TAB XL PO SCH (21:00)
[2018-05-17] MEDS: ATORVASTATIN 20 MG TAB PO SCH (21:00)
[2018-05-17] MEDS: ASPIRIN 81 MG CHEW TAB PO SCH (21:00)
[2018-05-18] VITALS: BP 111/47
[2018-05-18 04:00] VITALS: BP 105/49
[2018-05-18] MEDS: LEVOTHYROXINE SODIUM 75 MCG TAB PO SCH (05:32)
[2018-05-18] MEDS: PANTOPRAZOLE SOD 40 MG TABEC PO SCH (07:30)
[2018-05-18] MEDS: SEVELAMER CARBONATE 800 MG TAB PO SCH (07:30)
[2018-05-18] MEDS: FAMOTIDINE 20 MG TAB PO SCH (07:30)
[2018-05-18 08:00] VITALS: BP 135/63
[2018-05-18] MEDS ORDERED: EPOETIN ALFA 10000 UNIT/ML VIAL SC SCH (09:00)
[2018-05-18] MEDS: AMLODIPINE BESYLATE 10 MG TAB PO SCH (09:00)
[2018-05-18] MEDS: PAROXETINE HCL 20 MG TAB PO SCH (09:00)
[2018-05-18] MEDS: BUMETANIDE 1 MG TAB PO SCH (09:00)
--- NOTE | 2018-05-18 11:12 | Discharge Summary ---
HISTORY OF PRESENT ILLNESS: Ms. Ling is a very complex and elderly 82-year-old woman with end-stage renal failure who presented to the emergency room with complaint of weakness and trembling. HOSPITAL COURSE: It was recognized patient had been treated for peritonitis for her peritoneal dialysis in the week before, but then she complained of substernal discomfort and finding of a hemoglobin of 7.5. She was seen in consultation by Dr. Fany Warren for her end-stage renal failure and Dr. Patrick Alvarez for her chest discomfort, as she had recently had a cardiac catheterization that did not suggest any active disease. She was given intravenous iron supplementation as her serum iron was found to be very low. Endoscopy performed on the showed gastritis and hiatal hernia. Today, the patient is more comfortable and having received 2 doses of intravenous iron. She is discharged to home to continue her previous pantoprazole 40 mg daily and will get Epogen injections as well. She will continue all of her other home medications and follow with Dr. Shipman in [address] Turner in 2 weeks and continue her peritoneal dialysis. DISCHARGE DIAGNOSES: 1. Gastritis/hiatal hernia. 2. End-stage renal failure. 3. Iron-deficiency anemia. 4. Previously demonstrated mild single-vessel coronary disease. CHRISTEL HATHAWAY MD Job#: [id number] [place] cc:MD PATRICK PERKINS MD
== END 2018-05-18 11:14 | disposition home or self-care (01) | DRG 682 ==
LOC: ER 09:25 → ERHOLD 13:35 → IMCU 15:11 → OBSVTOIN 05-16 09:48 → MED/SURG3 05-16 10:45
PROVIDERS: ADMIT Internal Medicine Cardiovascular Disease; ATTEND Internal Medicine Cardiovascular Disease
DX: I12.0 Hypertensive chronic kidney disease with stage 5 chronic kidney disease or end stage renal disease (principal); N18.6 End stage renal disease; R53.1 Weakness; E11.22 Type 2 diabetes mellitus with diabetic chronic kidney disease; D63.1 Anemia in chronic kidney disease; Z99.2 Dependence on renal dialysis; E87.6 Hypokalemia; K29.70 Gastritis, unspecified, without bleeding; K44.9 Diaphragmatic hernia without obstruction or gangrene
CPT/HCPCS: 36415; 36430; 43239; 70450; 71045; 80048; 80053; 81001; 82550; 82553; 82607; 82746; 83540; 83735; 83880; 84132; 84466; 84484; 85025; 85045; 85610; 85730; 86078; 86850; 86900; 86920; 87040; 87086; 88305; 88312; 93005; 99284; G0378; J0360; J1756; J2001; J2550; J3480; J7050; P9016; Q4081

== ENCOUNTER 2018-05-19 09:43 | Observation (INO) | payer MEDICARE ==
[~2018-05-19] VITALS: Ht 162.6 cm; Wt 56.3 kg
[~2018-05-19 09:43] MED LIST changes: +TERAZOSIN HCL1 MG PO
[2018-05-19 10:44] LABS: BASOPHILS % 0.5 % (0.0-1.0); EOSINOPHILS # (AUTO) 0.1 (0.0-0.4); EOSINOPHILS % 1.8 % (0.0-6.0); HEMOGLOBIN 8.9 g/dL (12.0-16.0); LYMPHOCYTES # (AUTO) 0.8 (1.0-3.2); LYMPHOCYTES % 10.6 % (18.0-39.1); MEAN CORPUSCULAR HEMOGLOBIN 30.4 pg (28-32); MEAN CORPUSCULAR HGB CONC 31.8 g/dL (31-35); MEAN CORPUSCULAR VOLUME 95.6 fL (81-99); MONOCYTES # (AUTO) 0.4 (0.2-0.8); MONOCYTES % 5.8 % (4.4-11.3); NEUTROPHILS # (AUTO) 6.2 (2.1-6.9); NEUTROPHILS % 80.8 % (38.7-80.0); PLATELET COUNT 200 x10e3/uL (140-360); RED BLOOD COUNT 2.93 x10e6/uL (3.6-5.1); RED CELL DISTRIBUTION WIDTH 17.5 % (11.7-14.4)
[2018-05-19 10:50] LABS: BILIRUBIN,URINE NEGATIVE (NEGATIVE); CLARITY,URINE SL CLOUDY (CLEAR); COLOR,URINE YELLOW (YELLOW); KETONES,URINE NEGATIVE (NEGATIVE); LEUKOCYTE ESTERASE ,URINE NEGATIVE (NEGATIVE); NITRITE,URINE NEGATIVE (NEGATIVE); PROTEIN,URINE DIPSTICK 2+ (NEGATIVE); URINE UROBILINOGEN 0.2 mg/dL (0.2 - 1)
[2018-05-19 10:55] LABS: INR 1.01; PARTIAL THROMBOPLASTIN TIME 28.6 seconds (23.8-35.5); PROTHROMBIN TIME 14.2 seconds (11.9-14.5)
[2018-05-19 10:59] LABS: EPITHELIAL CELLS,URINE MODERATE /LPF
[2018-05-19 11:00] LABS: ALBUMIN 2.8 g/dL (3.5-5.0); ALBUMIN/GLOBULIN RATIO 0.8 (0.8-2.0); ANION GAP 16.7 mmol/L (8-16); CALCIUM 8.9 mg/dL (8.4-10.2); CREATININE, SERUM 5.46 mg/dL (0.57-1.11); MAGNESIUM 1.7 MG/DL (1.3-2.1); POTASSIUM 3.7 mmol/L (3.5-5.1)
[2018-05-19 11:01] LABS: % IRON SATURATION 30 % (15-50); IRON 84 ug/dL (50-170); TOTAL IRON BINDING CAPACITY 280 ug/dL (261-478); TRANSFERRIN 200 mg/dL (180-382)
[2018-05-19 11:09] LABS: CREATINE KINASE MB 0.7 ng/mL (0-5.0)
--- NOTE | 2018-05-19 11:17 | Consultation ---
DATE OF CONSULTATION: May 19, 2018 HISTORY OF PRESENT ILLNESS: Qfsunu-hwi[age]abby-old white female known to our nephrology service, underlying history of end-stage renal disease on peritoneal dialysis, recently admitted with anemia, iron deficiency, underwent EGD. Was receiving packed RBC transfusion when she developed chest pressure. It was unclear whether this was transfusion reaction or not. She has existing coronary artery disease. Please see Dr. Aby Prakash' recent notes on the clinical status of cardiac cath, etc. Patient was given IV iron and erythropoietin. She had her peritoneal dialysis sessions. Remained completely uneventful. Subsequently was discharged. Presents today with weakness, tiredness, fatigue. Denies any hematemesis or melena. PHYSICAL EXAMINATION VITAL SIGNS: She is found to have a blood pressure 139/61, pulse rate 66, afebrile. Oxygen saturation 99% room air. HEAD AND NECK: Cornea clear. Conjunctivae pale. Oral mucosa moist. LUNGS: Relatively clear. HEART: S1, S2 audible. ABDOMEN: Soft, nontender. LOWER EXTREMITY EXAMINATION: No edema. LABORATORY TESTS: Are pending. Discharge hemoglobin was 7.5. HOME MEDICATIONS: Have not been reconciled. PAST MEDICAL HISTORY: She has past history of renal osteodystrophy, anemia, chronic kidney disease, history of hypothyroidism on levothyroxine, history of hyperlipidemia. She also takes a baby aspirin a day and has been on famotidine. ALLERGIES: TO LANSOPRAZOLE. FAMILY HISTORY: Significant for hypertension. IMPRESSION AND PLAN: Anemia. Patient's blood has been drawn, sent out. Discussed with triage nurse, emergency room physician, 2 units packed red blood cells have been typed and cross matched. She needs to get admitted and may need colonoscopy. Will consult Dr. Chung, hematology. Transfuse blood under his supervision. Arrange for peritoneal dialysis. Volume status appears stable. Blood pressure stable. Discussed with patient, ER physician. Job#: [id number] FAUST[place]
[2018-05-19] MEDS ORDERED: ONDANSETRON HCL INJ 2 MG/ML VIAL IV PRN (12:00)
[2018-05-19 13:30] VITALS: BP 148/61
[2018-05-19 13:40] VITALS: BP 148/61
[2018-05-19] MEDS: SODIUM CHLORIDE 0.9% 1000ML 1,000 ML IV SCH (14:45)
[2018-05-19] MEDS ORDERED: IRON DEXTRAN INJ 500 MG in SODIUM CHLORIDE 0.9% 500ML 500 ML IV PRN (15:30)
[2018-05-19] MEDS ORDERED: IRON DEXTRAN INJ 50 MG in SODIUM CHLORIDE 0.9% 100 ML IV ONE (15:30)
[2018-05-19] MEDS ORDERED: DEXAMETHASONE PHOS 10MG INJ 20 MG in SODIUM CHLORIDE 0.9% 50ML 50 ML IV ONE (15:30)
[2018-05-19] MEDS ORDERED: DIPHENHYDRAMINE HCL INJ 25 MG in SODIUM CHLORIDE 0.9% 50ML 50 ML IV ONE (15:30)
[2018-05-19] MEDS ORDERED: FAMOTIDINE INJ 20 MG in SODIUM CHLORIDE 0.9% 50ML 50 ML IV ONE (15:30)
[2018-05-19 15:49] LABS: BASOPHILS % 0.4 % (0.0-1.0); EOSINOPHILS # (AUTO) 0.1 (0.0-0.4); EOSINOPHILS % 1.3 % (0.0-6.0); LYMPHOCYTES # (AUTO) 1.1 (1.0-3.2); LYMPHOCYTES % 15.9 % (18.0-39.1); MEAN CORPUSCULAR HEMOGLOBIN 30.8 pg (28-32); MEAN CORPUSCULAR VOLUME 96.2 fL (81-99); MONOCYTES # (AUTO) 0.6 (0.2-0.8); MONOCYTES % 8.5 % (4.4-11.3); NEUTROPHILS # (AUTO) 5.2 (2.1-6.9); NEUTROPHILS % 73.6 % (38.7-80.0); PLATELET COUNT 176 x10e3/uL (140-360); RED CELL DISTRIBUTION WIDTH 17.3 % (11.7-14.4)
[2018-05-19 16:00] VITALS: BP 115/53
[2018-05-19] MEDS ORDERED: ACETAMINOPHEN 325 MG TAB PO PRN (17:15)
[2018-05-19] MEDS ORDERED: DIPHENHYDRAMINE HCL 25 MG CAP PO PRN (17:15)
[2018-05-19] MEDS ORDERED: MAGNESIUM/ALUMINUM/SIMETHICONE 30 ML UDC PO PRN (17:15)
[2018-05-19] MEDS: MAGNESIUM HYDROXIDE 30 ML UDC PO PRN (17:40)
[2018-05-19 19:49] VITALS: BP 127/61
[2018-05-19 20:00] VITALS: BP 127/61
[2018-05-19] MEDS ORDERED: ATORVASTATIN 10 MG TAB PO SCH (21:00)
[2018-05-19] MEDS: TERAZOSIN HCL 1 MG CAP PO SCH (21:00)
[2018-05-19] MEDS: METOPROLOL SUCCINATE 50 MG TAB XL PO SCH (21:00)
[2018-05-19] MEDS: ATORVASTATIN 20 MG TAB PO SCH (21:04)
[2018-05-19] MEDS: SEVELAMER CARBONATE 800 MG TAB PO SCH (21:05)
[2018-05-20] VITALS (8 sets, daily range): BP systolic 121–142; BP diastolic 56–75
[2018-05-20] MEDS: SODIUM CHLORIDE 0.9% 1000ML 1,000 ML IV SCH ×2 (01:19→14:39)
[2018-05-20 05:06] LABS: HEMATOCRIT 25.8 % (34.2-44.1); HEMOGLOBIN 8.4 g/dL (12.0-16.0); LYMPHOCYTES # (AUTO) 0.4 (1.0-3.2); LYMPHOCYTES % 7.2 % (18.0-39.1); MEAN CORPUSCULAR HEMOGLOBIN 30.5 pg (28-32); MEAN CORPUSCULAR HGB CONC 32.6 g/dL (31-35); MEAN CORPUSCULAR VOLUME 93.8 fL (81-99); MONOCYTES % 0.8 % (4.4-11.3); NEUTROPHILS # (AUTO) 4.7 (2.1-6.9); NEUTROPHILS % 91.4 % (38.7-80.0); PLATELET COUNT 182 x10e3/uL (140-360); RED BLOOD COUNT 2.75 x10e6/uL (3.6-5.1)
[2018-05-20 05:25] LABS: ANION GAP 16.6 mmol/L (8-16); CALCIUM 8.3 mg/dL (8.4-10.2); CREATININE, SERUM 5.17 mg/dL (0.57-1.11); POTASSIUM 3.6 mmol/L (3.5-5.1)
[2018-05-20] MEDS: LEVOTHYROXINE SODIUM 75 MCG TAB PO SCH (06:09)
[2018-05-20] MEDS: PANTOPRAZOLE SOD 40 MG TABEC PO SCH (07:30)
--- NOTE | 2018-05-20 07:41 | Diagnostic Imaging Report ---
CHEST SINGLE (PORTABLE), 05/20/2018 7:00 AM Technique: CHEST SINGLE (PORTABLE) Comparison: 07/03/2017 Clinical history: Dizziness Findings: See Impression Impression: 1. Stable cardiomediastinal silhouette. Aortic calcifications. 2. Apparent lingular opacity likely artifact of rotation. No consolidation or overt edema. 3. No effusion or pneumothorax. Signed by: Dr Parisa Haskins MD on 05/20/2018 6:35 AM
[2018-05-20] MEDS ORDERED: CALCITRIOL 0.25 MCG CAP PO SCH (09:00)
[2018-05-20] MEDS: SEVELAMER CARBONATE 800 MG TAB PO SCH ×3 (09:00→22:05)
[2018-05-20] MEDS: PAROXETINE HCL 20 MG TAB PO SCH (09:00)
[2018-05-20] MEDS: AMLODIPINE BESYLATE 5 MG TAB PO SCH (09:00)
[2018-05-20] MEDS: CALCITRIOL 0.25 MCG CAP PO SCH (09:00)
[2018-05-20] MEDS ORDERED: LEVOTHYROXINE SODIUM 75 MCG TAB PO SCH (09:00)
[2018-05-20] MEDS: BUMETANIDE 1 MG TAB PO SCH (09:00)
[2018-05-20] MEDS: METOPROLOL SUCCINATE 50 MG TAB XL PO SCH (21:00)
[2018-05-20] MEDS: TERAZOSIN HCL 1 MG CAP PO SCH (21:00)
[2018-05-20] MEDS: ATORVASTATIN 20 MG TAB PO SCH (22:05)
[2018-05-21] VITALS (7 sets, daily range): BP systolic 129–150; BP diastolic 58–82
[2018-05-21] MEDS: SODIUM CHLORIDE 0.9% 1000ML 1,000 ML IV SCH ×2 (03:59→17:15)
[2018-05-21 05:06] LABS: BASOPHILS % 0.2 % (0.0-1.0); EOSINOPHILS % 0.2 % (0.0-6.0); HEMATOCRIT 25.1 % (34.2-44.1); LYMPHOCYTES # (AUTO) 1.3 (1.0-3.2); LYMPHOCYTES % 10.2 % (18.0-39.1); MEAN CORPUSCULAR HEMOGLOBIN 30.3 pg (28-32); MEAN CORPUSCULAR HGB CONC 31.9 g/dL (31-35); MEAN CORPUSCULAR VOLUME 95.1 fL (81-99); MONOCYTES # (AUTO) 0.7 (0.2-0.8); MONOCYTES % 5.7 % (4.4-11.3); NEUTROPHILS # (AUTO) 10.3 (2.1-6.9); NEUTROPHILS % 83.1 % (38.7-80.0); RED BLOOD COUNT 2.64 x10e6/uL (3.6-5.1); RED CELL DISTRIBUTION WIDTH 17.4 % (11.7-14.4)
[2018-05-21 05:13] LABS: PLATELET COUNT 192 x10e3/uL (140-360)
[2018-05-21] MEDS: LEVOTHYROXINE SODIUM 75 MCG TAB PO SCH (06:14)
[2018-05-21] MEDS: PANTOPRAZOLE SOD 40 MG TABEC PO SCH (07:30)
[2018-05-21] MEDS: AMLODIPINE BESYLATE 5 MG TAB PO SCH (09:00)
[2018-05-21] MEDS: CALCITRIOL 0.25 MCG CAP PO SCH (09:00)
[2018-05-21] MEDS: BUMETANIDE 1 MG TAB PO SCH (09:00)
[2018-05-21] MEDS: PAROXETINE HCL 20 MG TAB PO SCH (09:00)
[2018-05-21] MEDS: SEVELAMER CARBONATE 800 MG TAB PO SCH ×3 (09:00→21:28)
[2018-05-21] MEDS: TERAZOSIN HCL 1 MG CAP PO SCH (21:28)
[2018-05-21] MEDS: ATORVASTATIN 20 MG TAB PO SCH (21:28)
[2018-05-21] MEDS: METOPROLOL SUCCINATE 50 MG TAB XL PO SCH (21:29)
[2018-05-21] MEDS: MAGNESIUM HYDROXIDE 30 ML UDC PO PRN (21:29)
[2018-05-22] VITALS: BP 112/53
[2018-05-22 04:00] VITALS: BP 117/56
[2018-05-22] MEDS: LEVOTHYROXINE SODIUM 75 MCG TAB PO SCH (05:50)
[2018-05-22] MEDS: SODIUM CHLORIDE 0.9% 1000ML 1,000 ML IV SCH (06:39)
[2018-05-22 07:38] VITALS: BP 130/62
[2018-05-22] MEDS: AMLODIPINE BESYLATE 5 MG TAB PO SCH (08:20)
[2018-05-22] MEDS: CALCITRIOL 0.25 MCG CAP PO SCH (08:22)
[2018-05-22] MEDS: BUMETANIDE 1 MG TAB PO SCH (08:22)
[2018-05-22] MEDS: PANTOPRAZOLE SOD 40 MG TABEC PO SCH (08:22)
[2018-05-22] MEDS: PAROXETINE HCL 20 MG TAB PO SCH (08:22)
[2018-05-22] MEDS: SEVELAMER CARBONATE 800 MG TAB PO SCH (08:22)
[2018-05-22 11:27] VITALS: BP 130/62
[2018-05-22 11:56] VITALS: BP 134/60
--- NOTE | 2018-05-22 12:33 | History and Physical ---
HISTORY OF PRESENT ILLNESS: Mrs. Ling is a very elderly 82-year-old woman who was discharged only yesterday from [facility] where she had previously have presented on the with ?weak and trembly and found to be anemic.? Patient reports she was walking with a dog and felt she had trouble holding the leash and decided to come back to the emergency room. PAST MEDICAL HISTORY: Significant for longstanding hypertension and chest discomfort. She had upper endoscopy showing gastritis and esophagitis. MEDICATIONS: Recent home medications include 1. Amlodipine 5 mg daily. 2. Aspirin 81 mg. 3. Atorvastatin 10 mg daily. 4. Bumetanide 2 mg daily. 5. Calcitriol 0.25 mg daily. 6. She has been instructed to stop Prolia. 7. Famotidine 20 mg daily. 8. Nubia 180 mg daily. 9. Levothyroxine 75 mcg daily. 10. Metoprolol succinate 50 mg daily. 11. [place] 3 fish oil. 12. Protonix 40 mg daily. 13. Paroxetine 10 mg daily. 14. Renagel 800 mg t.i.d. 15. Terazosin 2 mg at bedtime. PHYSICAL EXAMINATION GENERAL: At this shows very elderly woman who is alert, oriented, and comfortable. She is afebrile. HEAD, EYES, EARS, NOSE, AND THROAT: Unremarkable. NECK: No jugular venous distention. Thorax. CARDIOVASCULAR: Heart sounds S1 and S2 are equal. No murmurs. LUNGS: Clear. ABDOMEN: Has a catheter in the right lower quadrant. Abdomen is nontender. EXTREMITIES: No cyanosis, clubbing, or edema. LABORATORY DATA: Pertinent laboratory studies show hemoglobin 8.9, hematocrit 28.0, white count 7.6, and platelets 200,000. Chemistry shows BUN 19 and creatinine 5.46. ASSESSMENT 1. Weak and trembly, etiology not clear. 2. Gastritis. 3. Anemia. 4. End-stage renal failure. PLAN: We will ask for Dr. Keke Alvarez to re-evaluate and she has been seen by renal and we will asked Dr. Chung to evaluate her hematologic status. Further management based on clinical course. Job#: [id number] [place] cc:DR. VANI ROSADO cc:DR. KEKE ALVAREZ cc:DR. SALUD LAMB
--- NOTE | 2018-05-22 13:09 | Discharge Summary ---
Ms. Ling is an elderly, 82-year-old woman with chronic renal failure on peritoneal dialysis. She presented again to the emergency room on the after being discharged only about 24 hours earlier with the complaint that she fell weak and trembly. HOSPITAL COURSE: Patient was found still to be anemic after being given transfusion and intravenous iron supplementation during a previous hospitalization beginning on May 16. She was seen in consultation by Dr. Patrick Alvarez and Dr. Warren. Her peritoneal dialysis was continued. She received additional dose of intravenous iron. She had not had a bowel movement in days and was given a diuretic. Today the patient is feeling better, ambulating, has had a bowel movement. She has told Dr. Patrick Alvarez that she wishes to have a colonoscopy on an outpatient basis. She is discharged to home to continue her previous home medications. Instructed to pursue a nutritious diet and follow up with renal specialist and with Dr. Patrick Alvarez and Dr. Shipman on a regular basis. DISCHARGE DIAGNOSES 1. Anemia. 2. End-stage renal failure. CHRISTEL HATHAWAY MD Job#: [id number] cc:MD PATRICK PERKINS MD VIJAY K. KOKA, MD
[2018-05-23] MEDS ORDERED: AMLODIPINE BESYLATE 10 MG TAB PO SCH (09:00)
== END 2018-05-22 13:43 | disposition home or self-care (01) ==
LOC: ER 09:43 → ERHOLD 12:17 → IMCU 13:24 → MED/SURG2 19:51
PROVIDERS: ADMIT Internal Medicine Cardiovascular Disease; ATTEND Internal Medicine Cardiovascular Disease
DX: I12.0 Hypertensive chronic kidney disease with stage 5 chronic kidney disease or end stage renal disease (principal); N18.6 End stage renal disease; D63.1 Anemia in chronic kidney disease; Z99.2 Dependence on renal dialysis; K29.70 Gastritis, unspecified, without bleeding; Z83.3 Family history of diabetes mellitus; Z82.49 Family history of ischemic heart disease and other diseases of the circulatory system; I25.10 Atherosclerotic heart disease of native coronary artery without angina pectoris; D50.9 Iron deficiency anemia, unspecified; E88.09 Other disorders of plasma-protein metabolism, not elsewhere classified; E03.9 Hypothyroidism, unspecified; E78.5 Hyperlipidemia, unspecified; K59.00 Constipation, unspecified
CPT/HCPCS: 36415 ×3; 71045; 80048; 80053; 81001; 82550; 82553; 83540; 83735; 84466; 84484; 85025 ×3; 85610; 85730; 86704; 86706; 86850; 86900; 87340; 93005 ×2; 99284; G0378 ×4; J1100; J1200; J1750; J7030 ×4; J7040; J7050; S0164 ×3

== ENCOUNTER 2018-08-21 16:37 | Inpatient (IN) | payer MEDICARE ==
[~2018-08-21] VITALS: Ht 162.6 cm; Wt 51.7 kg
--- OUTSIDE RECORDS SUMMARY | 2018-08-21 16:42 | XMS REPORT | Continuity of Care Document ---
Author Author [facility] Interface Address Unknown Phone Unavailable Problems Problem Status Onset Date Classification Date Reported Comments Source CERVICAL Active 05/11/2018 [facility] [place] UNK Active 10/18/2016 [facility] Z12.31 - ENCNTR SCREEN MAMMOGRAM FOR MA Active 07/30/2015 [facility] [place] 585.4 Active 03/04/2015 [facility] 585.2 Active 07/30/2014 [facility] UNK Active 07/30/2014 [facility] Other [facility] drug therapy Active Problem 06/13/2018 Castillo Souza Osteoporosis Active Problem 06/13/2018 Castillo Souza Vitamin D deficiency Active Problem 06/13/2018 Castillo Souza Rheumatoid arthritis of multiple sites without rheumatoid factor Active Problem 06/13/2018 Castillo Souza ESRD Active Problem 06/13/2018 Castillo Souza Muscle spasm Active Problem 06/13/2018 Castillo Souza Long-term use of other medications - High Risk Active Problem 07/23/2015 Castillo Souza Unspecified vitamin D deficiency Active Problem 07/23/2015 Castillo Souza RENAL INSUFFICIENCY Active Problem 07/23/2015 Castillo Souza Osteoporosis, postmenopausal Active Problem 07/23/2015 Castillo Souza Cramp of limb Active Problem 07/23/2015 Castillo Souza Osteoarthrosis, multiple sites Active Problem 07/23/2015 Castillo Souza Rheumatoid arthritis Active Problem 07/23/2015 Castillo Souza Osteopenia Active Problem 09/05/2014 Castillo Souza Age related osteoporosis Active Diagnosis 03/16/2016 Castillo Souza Acid reflux Active Problem 07/19/2017 [facility] [place] Anemia of chronic renal failure Active Problem 07/19/2017 [facility] [place] Anxiety Active Problem 07/19/2017 BOB Hung, BOB Brower,[facility] DM - Diabetes mellitus Active Problem 07/19/2017 [facility] [place] - Hard of hearing Active Problem 07/19/2017 [facility] [place] HTN - Hypertension Active Problem 07/19/2017 [facility] [place] Hypercholesterolemia Active Problem 07/19/2017 [facility] [place] Hypertriglyceridemia Active Problem 07/19/2017 [facility] [place] Hypothyroid Active Problem 07/19/2017 [facility] [place] Renal failure syndrome Active Problem 07/19/2017 [facility] [place] Ventral hernia Active Problem 07/19/2017 [facility] [place] CHRONIC KIDNEY DISEASE, STAGE 4 (SEVERE) Active [facility] END STAGE RENAL DISEASE Active [facility] Medications Medication Details Route Status Patient Instructions Ordering Provider Order Date Source Prolia 60MG SQ Subcutaneous Active 60 MG/ML Subcutaneous Q 6 MONTHS Ozuna 08/31/2017 Castillo Souza Prolia 60MG SQ Subcutaneous Active 60 MG/ML [facility]cutaneous Q [facility] 06/22/2017 Castillo Souza Voltaren Gel apply to affected area Transdermal Active 1% Trans[facility]mal [facility] 04/05/2017 Castillo Souza Vitamin D (Ergocalciferol) 1 capsule Orally Active 50,000 Orally ONCE A WEEK [place] 12/20/2016 Castillo Souza Oxycodone Hydrochloride 5 MG Oral Tablet 5 mg, Route: PO, Drug form: TAB, ONCE, Dosing Weight 59.545, kg, PRN Pain Score 4-6, Start date: 11/04/16 11:10:00 [facility] Inactive 11/04/2016 [facility] labetalol (ANES) Route: IV, Drug form: INJ, ONCE, Stop date: 11/04/16 10:12:00 [facility] [employer] Inactive 11/04/2016 [facility] ePHEDrine (ANES) Route: IV, Drug form: INJ, ONCE, Stop date: 11/04/16 9:58:00 [facility] [employer] [facility] Inactive 11/04/2016 [facility] famotidine (ANES) Route: IV, Drug form: INJ, ONCE, Stop date: 11/04/16 9:58:00 [facility] [employer] Inactive 11/04/2016 [facility] ondansetron (ANES) Route: IV, Drug form: INJ, ONCE, Stop date: 11/04/16 9:58:00 [facility] [employer] Inactive 11/04/2016 [facility] fentaNYL (ANES) Route: IV, Drug form: INJ, ONCE, Stop date: 11/04/16 9:58:00 [facility] [employer] Inactive 11/04/2016 [facility] propofol (ANES) Route: IV, Drug form: INJ, ONCE, Stop date: 11/04/16 9:58:00 [facility] [employer] Inactive 11/04/2016 [facility] lidocaine (ANES) Route: IV, Drug form: INJ, ONCE, Stop date: 11/04/16 9:58:00 [facility] [employer] Inactive 11/04/2016 [facility] rocuronium (ANES) Route: IV, Drug form: INJ, ONCE, Stop date: 11/04/16 9:58:00 [facility] [employer] Inactive 11/04/2016 [facility] neostigmine (ANES) Route: IV, Drug form: INJ, ONCE, Stop date: 11/04/16 9:58:00 [facility]AT[facility] [employer] Inactive 11/04/2016 [facility] glycopyrrolate (ANES) Route: IV, Drug form: INJ, ONCE, Stop date: 11/04/16 9:58:00 [facility]ATORY [employer] Inactive 11/04/2016 [facility] acetaminophen-codeine #3 2 tab, Route: PO, Drug Form: TAB, Dosing Weight 59.545, kg, Q4H, PRN Pain Score 4-6, Start date: 11/04/16 9:53:00 [facility]ATORY [employer], Duration: 30 day, Stop date: 12/04/16 9:52:00 CDT Inactive 11/04/2016 [facility] Morphine 2 mg, Route: IVP, Q3H, Dosing Weight 59.545, kg, PRN Pain Score 1-3, Start date: 11/04/16 9:53:00 [facility] [employer], Duration: 30 day, Stop date: 12/04/16 9:52:00 CDT Inactive 11/04/2016 [facility] vancomycin (ANES) (ANES) Route: IV, Drug form: INJ, Start date: 11/04/16 9:19:00 LABORATORY [employer], Stop date: 11/04/16 10:19:00 LABORATORY [employer] Inactive 11/04/2016 [facility] ceFAZolin (ANES) (ANES) Route: IV, Drug form: INJ, Start date: 11/04/16 9:19:00 LABORATORY [employer], Stop date: 11/04/16 10:19:00 LABORATORY [employer] Inactive 11/04/2016 [facility] sodium chloride 0.9% 500 ml INJ (ANES) Route: IV, Total Volume: 500, Start date: 11/04/16 9:10:00 LABORATORY [employer], Stop date: 11/04/16 10:10:00 LABORATORY [employer] Inactive 11/04/2016 [facility] sodium chloride 0.9% 500 ml INJ 500 mL 500 mL, Rate: 40 ml/hr, Infuse over: 12.5 hr, Route: IV, Dosing Weight 59.545 kg, Total Volume: 500, Start date: 11/04/16 8:04:00 LAB[facility]ATORY [employer], Duration: 1 day, Stop date: 11/05/16 8:03:00 LAB[facility]ATORY [employer] Inactive 11/04/2016 [facility] Lactated Ringers 1,000 mL 1,000 mL, Rate: 40 ml/hr, Infuse over: 25 hr, Route: IV, Dosing Weight 59.545 kg, Total Volume: 1,000, Start date: 11/04/16 8:03:00 LAB[facility]ATORY [employer], Duration: 1 day, Stop date: 11/05/16 8:02:00 [facility] [employer] Inactive 11/04/2016 [facility] Vitamin D3 50,000 intl units oral capsule 50,000 IntlUnit=1 cap, PO, qWeek, # 12 cap, 0 Refill(s) Active 10/28/2016 [facility] glimepiride 1 mg oral tablet 1 mg=1 tab, PO, Daily, 0 Refill(s) Active 10/28/2016 [facility] Ancef 2 gm, 100 mL, Route: IVPB, Drug form: INJ, PRE OP, Dosing Weight 57.784, kg, Start date: 10/28/16 10:00:00 [facility]ATORY [employer], Duration: 30 day, Stop date: 11/27/16 10:59:00 CDTNotes: Same as: Ancef No Longer Active 10/28/2016 [facility] Vancomycin 1 gm, Route: IVPB, PRE OP, Dosing Weight 57.784, kg, Start date: 10/28/16 10:00:00 LABORATORY [employer], Duration: 30 day, Stop date: 11/27/16 10:59:00 CDTNotes: TIME CRITICAL MEDICATION (Same As: Vancocin) Infusion rate 2001 mg: infuse over 2.5 hours MEDICATION WASTE Product Size: 1000 mg Product Wasted: ___ mg No Longer Active 10/28/2016 [facility] Famotidine 10 MG Oral Tablet 10 mg=1 tab, PO, BID, 0 Refill(s) Active 10/28/2016 [facility] Vitamin D (Ergocalciferol) 1 capsule Orally Active 70270 UNIT Orally Once a week [place] 09/10/2016 Castillo Souza PredniSONE 2 tablets with food or milk Orally Active 5 MG Orally Once a day [place] 02/09/2016 Castillo Souza Nexium 1 capsule Orally Active 40 MG Orally Once a day [place] 02/09/2016 Castillo Souza propofol (ANES) Route: IV, Drug form: INJ, ONCE, Stop date: 11/24/15 9:58:00 Inactive 11/24/2015 [facility] lidocaine (ANES) Route: IV, Drug form: INJ, ONCE, Stop date: 11/24/15 9:58:00 Inactive 11/24/2015 [facility] fentaNYL (ANES) Route: IV, Drug form: INJ, ONCE, Stop date: 11/24/15 9:53:00 Inactive 11/24/2015 [facility] midazolam (ANES) Route: IV, Drug form: SOLN, ONCE, Stop date: 11/24/15 9:53:00 Inactive 11/24/2015 [facility] ceFAZolin (ANES) Route: IV, Drug form: INJ, ONCE, Stop date: 11/24/15 9:53:00 Inactive 11/24/2015 [facility] Oxycodone 10 mg, 2 tab, Route: PO, Drug form: TAB, Q4H, Dosing Weight 57.784, kg, PRN Pain Score 7-10, Start date: 11/24/15 9:51:00, Duration: 30 day, Stop date: 12/24/15 9:50:00Notes: (Same as: Roxicodone) Inactive 11/24/2015 [facility] Flumazenil 0.2 mg, 2 mL, Route: IVP, Drug form: INJ, PRN, Dosing Weight 57.784, kg, PRN Benzodiazepine Reversal, Initial dose, Start date: 11/24/15 9:51:00, Duration: 30 day, Stop date: 12/24/15 9:50:00Notes: ( Same as: Romazicon) Inactive 11/24/2015 [facility] Meperidine 12.5 mg, 0.25 mL, Route: IVP, Drug form: INJ, Q30Min, Dosing Weight 57.784, kg, PRN Other -See Comment, For shivering, Start date: 11/24/15 9:51:00, Duration: 2 doses or times, Stop date: Limited # of timesNotes: (Same As: Demerol) Inactive 11/24/2015 [facility] Naloxone 0.04 mg, 0.1 mL, Route: IVP, Drug form: INJ, Q2MIN, Dosing Weight 57.784, kg, PRN Narcotic Reversal, Start date: 11/24/15 9:51:00, Duration: 8 doses or times, Stop date: Limited # of timesNotes: Same as Narcan Inactive 11/24/2015 [facility] Fentanyl 25 microgram, 0.5 mL, Route: IVP, Drug form: INJ, Q5Min, Dosing Weight 57.784, kg, PRN Pain Score 4-6, Start date: 11/24/15 9:51:00, Duration: 4 doses or times, Stop date: Limited # of timesNotes: (Same as: Sublimaze) Preservative free. Inactive 11/24/2015 [facility] Hydromorphone 0.5 mg, 0.5 mL, Route: IVP, Drug form: INJ, Q5Min, Dosing Weight 57.784, kg, PRN Pain Score 7-10, Start date: 11/24/15 9:51:00, Duration: 4 doses or times, Stop date: Limited # of times Inactive 11/24/2015 [facility] Ondansetron 4 mg, 2 mL, Route: IVP, Drug form: INJ, ONCE, Dosing Weight 57.784, kg, PRN Nausea & Vomiting, Start date: 11/24/15 9:51:00Notes: (Same as: Zofran) MEDICATION WASTE Product Size: 4 mg Product Wasted: ___ mg Inactive 11/24/2015 [facility] Hydralazine 10 mg, 0.5 mL, Route: IVP, Drug form: INJ, Q20Min, Dosing Weight 57.784, kg, PRN Elevated BP, Start date: 11/24/15 9:51:00, Duration: 2 doses or times, Stop date: Limited # of timesNotes: (Same as: A presoline) Push over 5 minutes Inactive 11/24/2015 [facility] ondansetron (ANES) Route: IV, Drug form: INJ, ONCE, Stop date: 11/24/15 9:43:00 Inactive 11/24/2015 [facility] vancomycin (ANES) (ANES) Route: IV, Drug form: INJ, Start date: 11/24/15 9:11:00, Stop date: 11/24/15 10:11:00 Inactive 11/24/2015 [facility] Sodium Chloride 0.154 MEQ/ML Injectable Solution 500 mL, Rate: 25 ml/hr, Infuse over: 20 hr, Route: IV, Dosing Weight 57.784 kg, Total Volume: 500, Start date: 11/24/15 9:09:00, Duration: 30 day, Stop date: 12/24/15 9:08:00 Inactive 11/24/2015 [facility] Sodium Chloride 0.9% IV (ANES) (ANES) Route: IV, Total Volume: 500, Start date: 11/24/15 9:08:00, Stop date: 11/24/15 10:08:00 Inactive 11/24/2015 [facility] Calcium Chloride 0.0014 MEQ/ML / Potassium Chloride 0.004 MEQ/ML / Sodium Chloride 0.103 MEQ/ML / Sodium Lactate 0.028 MEQ/ML Injectable Solution 1,000 mL, Rate: 25 ml/hr, Infuse over: 40 hr, Route: IV, Dosing Weight 57.784 kg, Total Volume: 1,000, Start date: 11/24/15 9:08:00, Duration: 30 day, Stop date: 12/24/15 9:07:00 Inactive 11/24/2015 [facility] Vancomycin 1 gm, Route: IVPB, PRE OP, Dosing Weight 59.091, kg, Start date: 11/17/15 17:00:00, Duration: 8 day, Stop date: 11/25/15 16:59:00Notes: TIME CRITICAL MEDICATION (Same As: Vancocin) Infusion rate 2001 mg: infuse over 2.5 hours MEDICATION WASTE Product Size: 1000 mg Product Wasted: ___ mg No Longer Active 11/17/2015 [facility] Ancef 2 gm, 100 mL, Route: IVPB, Drug form: INJ, PRE OP, Dosing Weight 59.091, kg, Start date: 11/17/15 17:00:00, Duration: 8 day, Stop date: 11/25/15 16:59:00Notes: Same as: Ancef No Longer Active 11/17/2015 [facility] Hydralazine 10 mg, Route: IVP, Q20Min, Dosing Weight 60, kg, PRN Elevated BP, Start date: 03/24/15 13:35:00, Duration: 2 doses or times, Stop date: Limited # of times Inactive 03/24/2015 [facility] Glycopyrrolate 0.2 mg, Route: IVP, Q5Min, Dosing Weight 60, kg, PRN Bradycardia, Start date: 03/24/15 13:35:00, Duration: 3 doses or times, Stop date: Limited # of times Inactive 03/24/2015 [facility] Ondansetron 4 mg, Route: IVP, ONCE, Dosing Weight 60, kg, PRN Nausea & Vomiting, Start date: 03/24/15 13:35:00 Inactive 03/24/2015 [facility] Flumazenil 0.2 mg, Route: IVP, PRN, Dosing Weight 60, kg, PRN Benzodiazepine Reversal, Initial dose, Start date: 03/24/15 13:35:00, Duration: 30 day, Stop date: 04/23/15 13:34:00 Inactive 03/24/2015 [facility] Meperidine 12.5 mg, Route: IVP, Q30Min, Dosing Weight 60, kg, PRN Other -See Comment, For shivering, Start date: 03/24/15 13:35:00, Duration: 2 doses or times, Stop date: Limited # of times Inactive 03/24/2015 [facility] Promethazine 6.25 mg, Route: IVPB, ONCE, Dosing Weight 60, kg, PRN Nausea & Vomiting, Start date: 03/24/15 13:35:00 Inactive 03/24/2015 [facility] Naloxone 0.04 mg, Route: IVP, Q2MIN, Dosing Weight 60, kg, PRN Narcotic Reversal, Start date: 03/24/15 13:35:00, Duration: 8 doses or times, Stop date: Limited # of times Inactive 03/24/2015 [facility] Morphine 4 mg, Route: IVP, Q5Min, Dosing Weight 60, kg, PRN Pain Score 7-10, Start date: 03/24/15 13:35:00, Duration: 3 doses or times, Stop date: Limited # of times Inactive 03/24/2015 [facility] Hydromorphone 0.5 mg, Route: IVP, Q5Min, Dosing Weight 60, kg, PRN Pain Score 7-10, Start date: 03/24/15 13:35:00, Duration: 4 doses or times, Stop date: Limited # of times Inactive 03/24/2015 [facility] Diphenhydramine 12.5 mg, Route: IVP, Drug form: INJ, Q6H, Dosing Weight 60, kg, PRN Itching, Start date: 03/24/15 13:35:00, Duration: 30 day, Stop date: 04/23/15 13:34:00 Inactive 03/24/2015 [facility] Fentanyl 25 microgram, Route: IVP, Q5Min, Dosing Weight 60, kg, PRN Pain Score 4-6, Start date: 03/24/15 13:35:00, Duration: 4 doses or times, Stop date: Limited # of times Inactive 03/24/2015 [facility] Ketorolac 30 mg, 1 mL, Route: IVP, Drug form: INJ, ONCE, Dosing Weight 60, kg, Start date: 03/24/15 13:35:00, Duration: 1 doses or times, Stop date: 03/24/15 13:35:00Notes: (Same as:Toradol) IV bolus must be g iven >15 seconds. Give IM administration slowly and deeply into the muscle. Not for use > 4 days MEDICATION WASTE Product Size: 30 mg Product Wasted: ___ mg Inactive 03/24/2015 [facility] Oxycodone 10 mg, Route: PO, Drug form: TAB, Q4H, Dosing Weight 60, kg, PRN Pain Score 7-10, Start date: 03/24/15 13:35:00, Duration: 30 day, Stop date: 04/23/15 13:34:00 Inactive 03/24/2015 [facility] Metoprolol 1 mg, Route: IVP, Q5Min, Dosing Weight 60, kg, PRN Other -See Comment, Start date: 03/24/15 13:35:00, Duration: 5 doses or times, Stop date: Limited # of times Inactive 03/24/2015 [facility] acetaminophen-codeine #3 1 tab, Route: PO, Drug Form: TAB, Dosing Weight 60, kg, Q4H, PRN Pain Score 4-6, Start date: 03/24/15 13:01:00, Duration: 30 day, Stop date: 04/23/15 13:00:00 Inactive 03/24/2015 [facility] Morphine 2 mg, Route: IVP, Q3H, Dosing Weight 60, kg, PRN Pain Score 1-3, Start date: 03/24/15 13:01:00, Duration: 30 day, Stop date: 04/23/15 13:00:00 Inactive 03/24/2015 [facility] Ancef 2 gm, Route: IVPB, ONCE, Dosing Weight 60, kg, Start date: 03/24/15 11:43:00, Duration: 1 doses or times, Stop date: 03/24/15 11:43:00 Inactive 03/24/2015 [facility] Sodium Chloride 0.154 MEQ/ML Injectable Solution 500 mL, Rate: 25 ml/hr, Infuse over: 20 hr, Route: IV, Dosing Weight 60 kg, Total Volume: 500, Start date: 03/23/15 8:26:00, Duration: 2 day, Stop date: 03/25/15 8:25:00 No Longer Active 03/23/2015 [facility] Vancomycin 1 gm, 200 mL, Route: IVPB, Drug form: INJ, PRE OP, Dosing Weight 60, kg, Start date: 03/17/15 15:00:00, Duration: 30 day, Stop date: 04/16/15 14:59:00Notes: TIME CRITICAL MEDICATION No Longer Active 03/17/2015 [facility] Metoprolol Tartrate 1 tablet Orally Active 50 MG Orally Once a day Ranjit Castillo Souza Nubia 1 tablet as needed Orally Active 160 MG Orally Once a day Laith Souza Vitamin D (Ergocalciferol) 1 capsule Orally Active 50,000 Orally ONCE A WEEK Jen Souza Aspir-81 1 tablet Orally Active 81 MG Orally Once a day Ranjit Castillo Souza Prolia 60MG SQ Subcutaneous Active 60 MG/ML Subcutaneous Q 6 MONTHS Ranjit Castillo Souza Calcitriol 1 capsule Orally Active 0.25 MCG Orally Once a day Ranjit Castillo Souza Levothyroxine Sodium 1 tablet Orally Active 75 MCG Orally Once a day Ranjit Castillo Burrowser Paroxetine HCl 1 tablet in the morning Orally Active 10 MG Orally Once a day Ranjit Castillo Burrowser [place] 3 1 capsule Orally Active 1200 mg Orally Once a day Ranjit Castillo Burrowser Sodium Bicarbonate 1 tablet Orally Active 650 MG Orally twice a day Ranjit Castillo Souza Famotidine 1 tablet as needed Orally Active 10 MG Orally Twice a day Ranjit Castillo Burrowser Ergocalciferol 1 capsule Orally Active 1000 mg Orally Once a day Ranjit Castillo Souza Cyanocobalamin 1 ml Injection Active 1000 MCG/ML Injection Once a month Ranjit Castillo Souza Amlodipine Besylate 1/2 tablet Orally Active 5 MG Orally Once a day Ranjit Castillo Souza Amlodipine Besylate 1/2 tablet Orally Active 5 MG Orally Once a day [place] Castillo Souza Levothyroxine Sodium 1 tablet Orally Active 75 MCG Orally Once a day [place] Castillo Souza Tizanidine HCl 1 tablet as needed Orally Active 4 MG Orally Three times a day [place] Castillo Souza Paroxetine HCl 1 tablet in the morning Orally Active 10 MG Orally Once a day [place] Castillo Souza Ergocalciferol 1 capsule Orally Active 1000 mg Orally Once a day Ozuna Castillo Souza [place] 3 1 capsule Orally Active 1200 mg Orally Once a day [place] Castillo Souza Metoprolol Tartrate 1 tablet Orally Active 50 MG Orally Once a day [place] Castillo Souza Cyanocobalamin 1 ml Injection Active 1000 MCG/ML Injection Once a month Oz[place] Castillo Souza Sodium Bicarbonate 1 tablet Orally Active 650 MG Orally twice a day [place] Castillo Souza Famotidine 1 tablet as needed Orally Active 10 MG Orally Twice a day [place] Castillo Souza Aspir-81 1 tablet Orally Active 81 MG Orally Once a day [facility] Castillo Souza Calcitriol 1 capsule Orally Active 0.25 MCG Orally Once a day [facility] Csatillo Souza Prolia 60MG SQ Subcutaneous Active 60 MG/ML Subcutaneous Q 6 MONTHS [facility] Castillo Souza Atorvastatin Calcium 1 tablet Orally Active 10 MG Orally Once a day [place] Castillo Souza Fenofibrate 1 tablet Orally Active 48 MG Orally Once a day [place] Castillo Souza Glimepiride 1 tablet with breakfast or the first main meal of the day Orally Active 1 MG Orally Once a day Souzabecca Souza Losartan Potassium 1 tablet Orally Active 25 MG Orally Once a day Ozunanicole Souza Omeprazole 2 capsules Orally Active 20 MG Orally Once a day Harley Souza Tricor 1 tablet Orally Active 48 MG Orally Once a day Ozunanicole Souza Synthroid 1 tablet every morning on an empty stomach Orally Active 75 MCG Orally Once a day Zounanicole Souza Vitamin B-12 15 ml Orally Active 1000 MCG/15ML Orally Once a day [place] Castillo Souza Nubia 1 tablet as needed Orally Active 160 MG Orally Once a day Souzabecca Souza Allergies, Adverse Reactions, Alerts Substance Category Reaction Severity Reaction type Status Date Reported Comments Source Plavix Adverse Reaction rash Adverse Reaction Active 04/04/2018 Castillo Souza Fosamax Adverse Reaction severe muscle cramping Adverse Reaction Active 04/04/2018 Castillo Souza Immunizations Immunization Date Given Site Status Last Updated Comments Source Prolia 09/10/2016 completed Castillo Souza Prolia 03/11/2016 completed Castillo Souza Results Order Name Results Value Reference Range Date Interpretation Comments Source Breast Mammo Scrn MC incl CAD MA Breast Mammo Scrn MC incl CAD MA BILATERAL DIGITAL SCREENING MAMMOGRAM WITH CAD: 07/17/2018 CLINICAL: Routine/Screening. Current study was evaluated with a Computer Aided Detection (CAD) system. COMPARISON:Comparison is made to exams dated: 07/16/2017 mammogram, 08/19/2015 mammogram - [facility], 06/26/2014 mammogram, 09/28/2013 mammogram, 09/26/2012 mammogram, and 09/17/2011 mammogram - [facility]. TECHNIQUE: Mammographic views were obtained using digital acquisition. Current study was also evaluated with a Computer Aided Detection (CAD) system. FINDINGS: The tissue of both breasts is heterogeneously dense, which could obscure detection of small masses. There are benign vascular calcifications and calcifications in both breasts. No significant masses, calcifications, or other findings are seen in either breast. There has been no significant interval change. IMPRESSION: BENIGN RECOMMENDATION:There is no mammographic evidence of malignancy. A 1 year screening mammogram is recommended.(07/18/2019) This exam was interpreted at [id number] for CHELSEA Sun. Professional services are provided by the [facility]. Deisy Vance M.D. ak/penrad:07/19/2018 10:59:26 Field Operations Supervisor(s): RT Herminio(R)(M), [facility] letter sent: BI-RADS 1/2 Mammogram BI-RADS: 2 Benign 07/17/2018 - - Read by: Deisy Vance MD Dictated Date/time: 07/19/18 10:59 Electronically Signed by: Deisy Vance MD 07/19/18 10:59 FINAL REPORT OPIJamila Hung Spine cervical 2 or 3 view DX Spine cervical 2 or 3 view DX EXAM: XR CERVICAL SPINE 3 VIEWS DATE: 05/02/2018 2:16 PM CDT INDICATION: M54.2 Cervicalgia COMPARISON: None. TECHNIQUE: 3 views of the cervical spine FINDINGS: Vertebral body heights and intervertebral disc spaces are preserved. Mild C4-C5 listhesis is identified. Mild degenerative changes are seen. No prevertebral swelling is appreciated IMPRESSION: Mild C4-C5 listhesis. 05/02/2018 - - This report was dictated by a Children Teacher/Fellow. I have personally reviewed the images as well as the Resident's interpretation and agree with the findings. Read by: Williams Nails MD Resident: Williams Nails MD Dictated Date/time: 05/02/18 16:27 Electronically Signed by: Shira Jaramillo MD 05/02/18 18:42 FINAL REPORT [facility] Breast Mammo Scrn MC incl CAD MA Breast Mammo Scrn MC incl CAD MA BILATERAL DIGITAL SCREENING MAMMOGRAM WITH CAD: 07/16/2017 CLINICAL: /Z12.31 Encounter For Screening Mammogram For Malignant Neoplasm Of Breast. Current study was evaluated with a Computer Aided Detection (CAD) system. COMPARISON:Comparison is made to exams dated: 08/19/2015 mammogram - [facility], 06/26/2014 mammogram, 09/28/2013 mammogram, 09/26/2012 mammogram, and 09/17/2011 mammogram - [facility]. TECHNIQUE: Mammographic views were obtained using digital acquisition. Current study was also evaluated with a Computer Aided Detection (CAD) system. The tissue of both breasts is heterogeneously dense, which could obscure detection of small masses. FINDINGS: There are benign vascular calcifications and calcifications in both breasts. There also are benign scattered calcifications in both breasts. No significant masses, calcifications, or other findings are seen in either breast. There has been no significant interval change. IMPRESSION: BENIGN RECOMMENDATION:There is no mammographic evidence of malignancy. A 1 year screening mammogram is recommended.(07/17/2018) Wili Ribera M.D. rsl/penrad:07/19/2017 09:55:37 Field Operations Supervisor(s): Tejal Lucio [facility] letter sent: BI-RADS 1/2 Dense Mammogram BI-RADS: 2 Benign 07/16/2017 - - Read by: Wili Ribera MD Dictated Date/time: 07/19/17 09:55 Electronically Signed by: Wili Ribera MD 07/19/17 09:55 FINAL REPORT [facility] ELECTROLYTES Potassium Lvl 4.3 meq/L 3.5 - 5.1 11/04/2016 [facility] BLOOD BANK RESULTS Antibody Scrn Negative (10/28/16 10:13 AM) 10/28/2016 [facility] BLOOD [facility] RESULTS ABO/Rh A POS 10/28/2016 [facility] ELECTROLYTES AGAP 12.4 meq/L 10.0 - 20.0 10/28/2016 [facility] ELECTROLYTES eGFR 12 mL/min/1.73m2 10/28/2016 Result Comment: The eGFR is calculated using the CKD-EPI formula. In most young, healthy individuals the eGFR will be >90 mL/min/1.73m2. The eGFR declines with age. An eGFR of 60-89 may be normal in some populations, particularly the elderly, for whom the CKD-EPI formula has not been extensively validated. Use of the eGFR is not recommended in the following populations: Individuals with unstable creatinine concentrations, including patients and those with serious co-morbid conditions. Patients with extremes in muscle mass or diet. The data above are obtained from the National Kidney Disease Education Program (NKDEP) which additionally recommends that when the eGFR is used in patients with extremes of body mass index for purposes of drug dosing, the eGFR should be multiplied by the estimated BMI. [facility] ELECTROLYTES BUN 36 mg/dL 7 - 22 10/28/2016 [facility] ELECTROLYTES Glucose Lvl 95 mg/dL 70 - 99 10/28/2016 [facility] ELECTROLYTES Creatinine Lvl 3.50 mg/dL 0.50 - 1.40 10/28/2016 [facility] ELECTROLYTES Calcium Lvl 9.1 mg/dL 8.5 - 10.5 10/28/2016 [facility] ELECTROLYTES CO2 21 meq/L 24 - 32 10/28/2016 [facility] ELECTROLYTES Potassium Lvl 4.4 meq/L 3.5 - 5.1 10/28/2016 [facility] ELECTROLYTES Chloride Lvl 112 meq/L 95 - 109 10/28/2016 [facility] ELECTROLYTES Sodium Lvl 141 meq/L 135 - 145 10/28/2016 [facility] HEMATOLOGY Lymphocytes 21.2 % 20.0 - 40.0 10/28/2016 [facility] HEMATOLOGY Basophils 1.5 % 0.0 - 1.0 10/28/2016 [facility] HEMATOLOGY Segs-Bands # 4.2 K/CMM 1.5 - 8.1 10/28/2016 [facility] HEMATOLOGY Eosinophils 3.9 % 0.0 - 4.0 10/28/2016 [facility] HEMATOLOGY Monocytes 7.5 % 2.0 - 12.0 10/28/2016 [facility] HEMATOLOGY Eosinophils # 0.2 K/CMM 0.0 - 0.5 10/28/2016 [facility] HEMATOLOGY Lymphocytes # 1.4 K/CMM 1.0 - 5.5 10/28/2016 [facility] HEMATOLOGY Monocytes # 0.5 K/CMM 0.0 - 0.8 10/28/2016 [facility] HEMATOLOGY Basophils # 0.1 K/CMM 0.0 - 0.2 10/28/2016 [facility] HEMATOLOGY Segs 65.9 % 45.0 - 75.0 10/28/2016 [facility] HEMATOLOGY INR 1.04 0.85 - 1.17 10/28/2016 [facility] HEMATOLOGY PT 13.8 s 12.0 - 14.7 10/28/2016 [facility] HEMATOLOGY PTT 30.0 s 22.9 - 35.8 10/28/2016 [facility] MPV 8.3 fL 7.4 - 10.4 10/28/2016 [facility] MCHC 34.0 g/dL 32.0 - 36.0 10/28/2016 [facility] HEMATOLOGY RDW 13.5 % 11.5 - 14.5 10/28/2016 [facility] RBC 3.45 M/CMM 4.20 - 5.40 10/28/2016 [facility] Hct 30.5 % 36.0 - 48.0 10/28/2016 [facility] Hgb 10.4 g/dL 12.0 - 16.0 10/28/2016 [facility] MCV 88.5 fL 80.0 - 98.0 10/28/2016 [facility] MCH 30.1 pg 27.0 - 31.0 10/28/2016 [facility] Platelet 135 K/CMM 133 - 450 10/28/2016 [facility] WBC 6.4 K/CMM 3.7 - 10.4 10/28/2016 [facility] Chest 2 views DX Chest 2 views DX EXAM: XR CHEST 2 VIEWS DATE: 03/03/2016 3:36 PM CDT INDICATION: R05 Cough COMPARISON: 03/17/2015 TECHNIQUE: PA and lateral chest radiographs FINDINGS: There is mild stable bilateral apical pleural thickening. Minimal right infrahilar linear scarring is present on the PA view. No other lung parenchymal or pleural abnormalities are seen Janie and pulmonary vasculature are normal. Cardiac silhouette is normal in size. Stable atherosclerotic calcifications are seen in the thoracic aorta. No acute bony abnormality is identified. Multilevel degenerative changes are present in the cervical and thoracic spine. IMPRESSION: No acute cardiopulmonary abnormality. No significant change with compared with 03/17/2015. 03/03/2016 - - Read by: Librado Crooks MD Dictated Date/time: 03/03/16 15:52 Electronically Signed by: Librado Crooks MD 03/03/16 15:53 FINAL REPORT [facility] ELECTROLYTES Potassium Lvl 5.0 meq/L 3.5 - 5.1 11/24/2015 [facility] CHEM PANEL eGFR 18 mL/min/1.73m2 11/17/2015 Result Comment: The eGFR is calculated using the CKD-EPI formula. In most young, healthy individuals the eGFR will be >90 mL/min/1.73m2. The eGFR declines with age. An eGFR of 60-89 may be normal in some populations, particularly the elderly, for whom the CKD-EPI formula has not been extensively validated. Use of the eGFR is not recommended in the following populations: Individuals with unstable creatinine concentrations, including patients and those with serious co-morbid conditions. Patients with extremes in muscle mass or diet. The data above are obtained from the National Kidney Disease Education Program (NKDEP) which additionally recommends that when the eGFR is used in patients with extremes of body mass index for purposes of drug dosing, the eGFR should be multiplied by the estimated BMI. [facility] CHEM PANEL Calcium Lvl 7.9 mg/dL 8.5 - 10.5 11/17/2015 [facility] CHEM PANEL CO2 20 meq/L 24 - 32 11/17/2015 [facility] CHEM PANEL Chloride Lvl 113 meq/L 95 - 109 11/17/2015 [facility] CHEM PANEL Potassium Lvl 4.8 meq/L 3.5 - 5.1 11/17/2015 [facility] CHEM PANEL Sodium Lvl 140 meq/L 135 - 145 11/17/2015 [facility] CHEM PANEL Creatinine Lvl 2.45 mg/dL 0.50 - 1.40 11/17/2015 [facility] CHEM PANEL BUN 37 mg/dL 7 - 11/17/2015 [facility] CHEM PANEL Glucose Lvl 130 mg/dL 70 - 99 11/17/2015 [facility] CHEM PANEL AGAP 11.8 meq/L 10.0 - 20.0 11/17/2015 [facility] INR 1.15 0.85 - 1.17 11/17/2015 [facility] PT 15.0 s 12.0 - 14.7 11/17/2015 [facility] MCV 89.9 fL 80.0 - 98.0 11/17/2015 [facility] MPV 8.5 fL 7.4 - 10.4 11/17/2015 [facility] MCHC 33.1 g/dL 32.0 - 36.0 11/17/2015 [facility] RDW 14.3 % 11.5 - 14.5 11/17/2015 [facility] MCH 29.7 pg 27.0 - 31.0 11/17/2015 [facility] Platelet 158 K/CMM 133 - 450 11/17/2015 [facility] Hct 27.1 % 36.0 - 48.0 11/17/2015 [facility] RBC 3.01 M/CMM 4.20 - 5.40 11/17/2015 [facility] Hgb 9.0 g/dL 12.0 - 16.0 11/17/2015 [facility] WBC 5.6 K/CMM 3.7 - 10.4 11/17/2015 [facility] PTT 27.1 s 22.9 - 35.8 11/17/2015 [facility] HEMATOLOGY Basophils # 0.1 K/CMM 0.0 - 0.2 11/17/2015 [facility] HEMATOLOGY Segs-Bands # 3.9 K/CMM 1.5 - 8.1 11/17/2015 [facility] HEMATOLOGY Eosinophils # 0.1 K/CMM 0.0 - 0.5 11/17/2015 [facility] HEMATOLOGY Lymphocytes # 1.1 K/CMM 1.0 - 5.5 11/17/2015 [facility] HEMATOLOGY Monocytes # 0.5 K/CMM 0.0 - 0.8 11/17/2015 [facility] HEMATOLOGY Lymphocytes 18.8 % 20.0 - 40.0 11/17/2015 [facility] HEMATOLOGY Basophils 1.4 % 0.0 - 1.0 11/17/2015 [facility] HEMATOLOGY Monocytes 8.0 % 2.0 - 12.0 11/17/2015 [facility] HEMATOLOGY Eosinophils 2.1 % 0.0 - 4.0 11/17/2015 [facility] Segs 69.7 % 45.0 - 75.0 11/17/2015 [facility] Digital Mammo Screening Mc MA Digital Mammo Screening Mc MA - DIGITAL MAMMO SCREENING MC MA BILATERAL DIGITAL SCREENING MAMMOGRAM WITH CAD: 08/19/2015 CLINICAL: Routine. Current study was evaluated with a Computer Aided Detection (CAD) system. Comparison is made to exams dated: 06/26/2014 mammogram, 09/28/2013 mammogram, 09/26/2012 mammogram and 09/17/2011 mammogram - [facility]. The tissue of both breasts is heterogeneously dense, which could obscure detection of small masses. There are benign vascular calcifications in both breasts. There also are benign scattered calcifications in both breasts. No significant masses, calcifications, or other findings are seen in either breast. There has been no significant interval change. IMPRESSION: BENIGN There is no mammographic evidence of malignancy. A 1 year screening mammogram is recommended. Paul Vick M.D., cm/penrad:08/27/2015 11:51:17 Field Operations Supervisor: Anna AGUILAR(R)(M), [facility] This exam was dictated and interpreted by [id number] [facility] sent: Normal exam Mammogram BI-RADS: 2 Benign 08/19/2015 - - Read by: Brennen Lazo MD Dictated Date/time: 08/27/15 11:51 Electronically Signed by: Brennen Lazo MD 08/27/15 11:51 FINAL REPORT [facility] CHEM PANEL Glucose Lvl 100 mg/dL 70 - 99 03/24/2015 [facility] ELECTROLYTES Potassium Lvl 5.4 meq/L 3.5 - 5.1 03/24/2015 [facility] CHEM PANEL BUN 50 mg/dL 7 - 22 03/17/2015 [facility] CHEM PANEL eGFR 13 mL/min/1.73m2 03/17/2015 Result Comment: The eGFR is calculated using the CKD-EPI formula. In most young, healthy individuals the eGFR will be >90 mL/min/1.73m2. The eGFR declines with age. An eGFR of 60-89 may be normal in some populations, particularly the elderly, for whom the CKD-EPI formula has not been extensively validated. Use of the eGFR is not recommended in the following populations: Individuals with unstable creatinine concentrations, including patients and those with serious co-morbid conditions. Patients with extremes in muscle mass or diet. The data above are obtained from the National Kidney Disease Education Program (NKDEP) which additionally recommends that when the eGFR is used in patients with extremes of body mass index for purposes of drug dosing, the eGFR should be multiplied by the estimated BMI. [facility] CHEM PANEL Creatinine Lvl 3.3 mg/dL 0.5 - 1.4 03/17/2015 [facility] CHEM PANEL Sodium Lvl 140 meq/L 135 - 145 03/17/2015 [facility] CHEM PANEL Glucose Lvl 106 mg/dL 70 - 99 03/17/2015 [facility] CHEM PANEL Potassium Lvl 4.7 meq/L 3.5 - 5.1 03/17/2015 [facility] CHEM PANEL Chloride Lvl 109 meq/L 95 - 109 03/17/2015 [facility] CHEM PANEL Calcium Lvl 9.2 mg/dL 8.5 - 10.5 03/17/2015 [facility] CHEM PANEL CO2 20 meq/L 24 - 32 03/17/2015 [facility] CHEM PANEL AGAP 15.7 meq/L 10.0 - 20.0 03/17/2015 [facility] HEMATOLOGY PTT 34.3 s 22.9 - 35.8 03/17/2015 [facility] HEMATOLOGY INR 1.16 0.85 - 1.17 03/17/2015 [facility] HEMATOLOGY PT 14.9 s 12.0 - 14.7 03/17/2015 [facility] MPV 9.0 fL 7.4 - 10.4 03/17/2015 [facility] Platelet 158 K/CMM 133 - 450 03/17/2015 [facility] Hct 27.7 % 36.0 - 48.0 03/17/2015 [facility] MCV 87.9 fL 80.0 - 98.0 03/17/2015 [facility] RBC 3.15 M/CMM 4.20 - 5.40 03/17/2015 [facility] Hgb 9.3 g/dL 12.0 - 16.0 03/17/2015 [facility] MCHC 33.7 g/dL 32.0 - 36.0 03/17/2015 [facility] RDW 14.0 % 11.5 - 14.5 03/17/2015 [facility] MCH 29.6 pg 27.0 - 31.0 03/17/2015 [facility] WBC 5.4 K/CMM 3.7 - 10.4 03/17/2015 [facility] Lymphocytes # 1.2 K/CMM 1.0 - 5.5 03/17/2015 [facility] Segs-Bands # 3.4 K/CMM 1.5 - 8.1 03/17/2015 [facility] Basophils 1.4 % 0.0 - 1.0 03/17/2015 [facility] Eosinophils 3.0 % 0.0 - 4.0 03/17/2015 [facility] Basophils # 0.1 K/CMM 0.0 - 0.2 03/17/2015 [facility] Monocytes # 0.6 K/CMM 0.0 - 0.8 03/17/2015 [facility] Eosinophils # 0.2 K/CMM 0.0 - 0.5 03/17/2015 [facility] Monocytes 10.9 % 2.0 - 12.0 03/17/2015 [facility] Segs 62.7 % 45.0 - 75.0 03/17/2015 [facility] Lymphocytes 22.0 % 20.0 - 40.0 03/17/2015 [facility] Chest 2 views DX Chest 2 views DX PA and LATERAL CHEST (2 views) HISTORY: Coughing Prior studies cannot be recalled from the PACS for review. The report of a chest radiograph of 08/09/2014 was reviewed. FINDINGS: The lungs are clear. There is mild biapical pleural thickening. There is no evidence of an active or acute process. There are no pleural effusions. The heart and pulmonary vasculature are within normal limits. There are extensive atherosclerotic calcifications involving the thoracic aorta. There is minimal thoracic scoliosis. Otherwise, the regional skeleton is unremarkable. CONCLUSION: 1. No active disease. 2. Atherosclerosis. Coding: Chest 2 views CPT Code: 20783 SL: 13 Avni Vazquez M.D. 03/17/2015 - - Read by: Avni Vazquez MD Dictated Date/time: 03/17/15 15:34 Electronically Signed by: Avni Vazquez MD 03/17/15 15:36 FINAL REPORT [facility] Vital Signs Vital Sign Value Date Comments Source Weight 120 04/04/2018 [facility] Height 64 04/04/2018 [facility] Temperature Oral (F) 97.9 F 04/04/2018 [facility] Heart Rate 64 04/04/2018 [facility] Diastolic (mm Hg) 52 04/04/2018 [facility] Systolic (mm Hg) 130 04/04/2018 [facility] Weight 126.2 10/12/2017 [facility] Height 64 10/12/2017 [facility] Temperature Oral (F) 97.4 F 10/12/2017 [facility] Heart Rate 78 10/12/2017 [facility] Diastolic (mm Hg) 60 10/12/2017 [facility] Systolic (mm Hg) 116 10/12/2017 [facility] Weight 125.6 09/22/2017 [facility] Height 64 09/22/2017 [facility] Temperature Oral (F) 97.9 F 09/22/2017 [facility] Heart Rate 80 09/22/2017 [facility] Diastolic (mm Hg) 50 09/22/2017 [facility] Systolic (mm Hg) 110 09/22/2017 [facility] Weight 124 08/01/2017 [facility] Height 63 08/01/2017 [facility] Temperature Oral (F) 98.6 F 08/01/2017 [facility] Heart Rate 64 08/01/2017 [facility] Diastolic (mm Hg) 46 08/01/2017 [facility] Systolic (mm Hg) 98 08/01/2017 [facility] Weight 130 07/07/2017 [facility] Height 64 07/07/2017 [facility] Temperature Oral (F) 100.9 F 07/07/2017 [facility] Heart Rate 70 07/07/2017 [facility] Diastolic (mm Hg) 60 07/07/2017 [facility] Systolic (mm Hg) 138 07/07/2017 [facility] Weight 128 04/05/2017 [facility] Height 64 04/05/2017 [facility] Temperature Oral (F) 98.1 F 04/05/2017 [facility] Heart Rate 80 04/05/2017 [facility] Diastolic (mm Hg) 68 04/05/2017 [facility] Systolic (mm Hg) 160 04/05/2017 [facility] Systolic (mm Hg) 136 11/04/2016 [facility] Diastolic (mm Hg) 40 11/04/2016 [facility] Systolic (mm Hg) 145 11/04/2016 [facility] Diastolic (mm Hg) 37 11/04/2016 [facility] Systolic (mm Hg) 159 11/04/2016 [facility] Diastolic (mm Hg) 46 11/04/2016 [facility] Respitory Rate 14 11/04/2016 [facility] Respitory Rate 17 11/04/2016 [facility] Respitory Rate 17 11/04/2016 [facility] Heart Rate 72 11/04/2016 [facility] Temperature Oral (F) 97.5 F 10/28/2016 [facility] Heart Rate 54 10/28/2016 [facility] Height 162.56 cm 10/28/2016 [facility] Weight 59.545 10/28/2016 [facility] BMI Calculated 22.53 10/28/2016 [facility] Weight 129 09/10/2016 [facility] Height 64 09/10/2016 [facility] Temperature Oral (F) 96.9 F 09/10/2016 [facility] Heart Rate 60 09/10/2016 [facility] Diastolic (mm Hg) 60 09/10/2016 [facility] Systolic (mm Hg) 124 09/10/2016 [facility] Weight 124 03/11/2016 [facility] Height 64 03/11/2016 [facility] Temperature Oral (F) 98.5 F 03/11/2016 [facility] Heart Rate 64 03/11/2016 [facility] Diastolic (mm Hg) 60 03/11/2016 [facility] Systolic (mm Hg) 130 03/11/2016 [facility] Systolic (mm Hg) 124 11/24/2015 [facility] Diastolic (mm Hg) 54 11/24/2015 [facility] Systolic (mm Hg) 121 11/24/2015 [facility] Diastolic (mm Hg) 39 11/24/2015 [facility] Systolic (mm Hg) 114 11/24/2015 [facility] Diastolic (mm Hg) 31 11/24/2015 [facility] Respitory Rate 15 11/24/2015 [facility] Respitory Rate 16 11/24/2015 [facility] Respitory Rate 14 11/24/2015 [facility] Temperature Oral (F) 97.9 F 11/17/2015 [facility] Heart Rate 61 11/17/2015 [facility] BMI Calculated 21.87 11/17/2015 [facility] Weight 57.784 11/17/2015 [facility] Height 162.56 cm 11/17/2015 [facility] Systolic (mm Hg) 142 03/24/2015 [facility] Diastolic (mm Hg) 49 03/24/2015 [facility] Systolic (mm Hg) 133 03/24/2015 [facility] Diastolic (mm Hg) 46 03/24/2015 [facility] Systolic (mm Hg) 142 03/24/2015 [facility] Diastolic (mm Hg) 45 03/24/2015 [facility] Respitory Rate 15 03/24/2015 [facility] Respitory Rate 19 03/24/2015 [facility] Respitory Rate 15 03/24/2015 [facility] Heart Rate 65 03/17/2015 [facility] Temperature Oral (F) 98.4 F 03/17/2015 [facility] Height 162.56 cm 03/17/2015 [facility] BMI Calculated 22.71 03/17/2015 [facility] Weight 60 03/17/2015 [facility] Weight 140 12/12/2014 [facility] Height 64 12/12/2014 [facility] Temperature Oral (F) 98.0 F 12/12/2014 [facility] Heart Rate 70 12/12/2014 [facility] Diastolic (mm Hg) 60 12/12/2014 [facility] Systolic (mm Hg) 140 12/12/2014 [facility] Weight 135 06/13/2014 [facility] Height 64 06/13/2014 [facility] Temperature Oral (F) 98.2 F 06/13/2014 [facility] Heart Rate 72 06/13/2014 [facility] Diastolic (mm Hg) 52 06/13/2014 [facility] Systolic (mm Hg) 140 06/13/2014 [facility] Weight 135 12/12/2013 [facility] Height 64 12/12/2013 [facility] Temperature Oral (F) 97.5 F 12/12/2013 [facility] Heart Rate 72 12/12/2013 [facility] Diastolic (mm Hg) 56 12/12/2013 [facility] Systolic (mm Hg) 114 12/12/2013 [facility] Encounters Location Location Details Encounter Type Encounter Number Reason For Visit Attending Provider ADM Date DC Date Status Source Martin Souza MD 6m fu [id number] 12/12/2013 12/12/2013 Castillo Souza MD 6m fu [id number] 12/12/2013 12/12/2013 [facility] MD fu [id number] 12/12/2013 12/12/2013 [facility] MD fu [id number] 12/12/2013 12/12/2013 [facility] MD fu [id number] 12/12/2013 12/12/2013 Castillo [facility] MD fu [id number] 12/12/2013 12/12/2013 Castillo Souza MD 6m fu [id number] 12/12/2013 12/12/2013 Castillo Souza MD 6m fu [id number] 12/12/2013 12/12/2013 Castillo Souza MD 6m fu [id number] 12/12/2013 12/12/2013 Castillo Souza MD 6m fu [id number] 12/12/2013 12/12/2013 Castillo Souza MD 6m fu [id number] 12/12/2013 12/12/2013 Castillo Souza MD 6m fu [id number] 12/12/2013 12/12/2013 [facility]illo Souza MD 6m fu [id number] 12/12/2013 12/12/2013 [facility]illo [facility] MD 6m fu [id number] 06/13/2014 06/13/2014 [facility] MD 6m fu [id number] 06/13/2014 06/13/2014 [facility] MD 6m fu [id number] 06/13/2014 06/13/2014 [facility] MD 6m fu [id number] 06/13/2014 06/13/2014 [facility] MD 6m fu [id number] 06/13/2014 06/13/2014 [facility] MD 6m fu [id number] 06/13/2014 06/13/2014 [facility]illo [facility] MD 6m fu [id number] 06/13/2014 06/13/2014 Castillo Souza MD [facility] [id number] 06/13/2014 06/13/2014 Castillo Souza MD [facility] [id number] 06/13/2014 06/13/2014 [facility] department [id number] 06/13/2014 06/13/2014 Castillo Souza MD [facility] [id number] 06/13/2014 06/13/2014 Castillo Souza MD [facility] [id number] 06/13/2014 06/13/2014 Castillo Souza MD [facility] [id number] 12/06/2014 12/06/2014 Castillo Souza MD [facility] [id number] 12/06/2014 12/06/2014 Castillo Souza MD [facility] [id number] 12/06/2014 12/06/2014 Castillo Souza MD [facility] [id number] 12/06/2014 12/06/2014 Castillo Souza MD [facility] [id number] 12/06/2014 12/06/2014 Castillo Souza MD [facility] [id number] 12/06/2014 12/06/2014 Castillo Souza MD [facility] [id number] 12/06/2014 12/06/2014 Castillo Souza MD [facility] [id number] 12/06/2014 12/06/2014 Castillo Souza MD [facility] [id number] 12/06/2014 12/06/2014 Castillo Souza MD [facility] [id number] 12/06/2014 12/06/2014 Castillo Souza MD [facility] [id number] 12/06/2014 12/06/2014 Castillo Souza MD 6m fu [id number] 12/12/2014 12/12/2014 Castillo Souza MD 6m fu [id number] 12/12/2014 12/12/2014 Castillo Souza MD 6m fu [id number] 12/12/2014 12/12/2014 Castillo Souza MD 6m fu [id number] 12/12/2014 12/12/2014 Castillo Souza MD 6m fu [id number] 12/12/2014 12/12/2014 Castillo Souza MD [facility] [id number] 12/12/2014 12/12/2014 Castillo Souza MD 6m [id number] 12/12/2014 12/12/2014 Castillo Souza MD [facility] [id number] 12/12/2014 12/12/2014 Castillo Souza MD 6m [id number] 12/12/2014 12/12/2014 Castillo Souza MD [facility] [id number] 12/12/2014 12/12/2014 Castillo Souza MD [facility] [id number] 12/12/2014 12/12/2014 Castillo Souza MD MRI [id number] 12/18/2014 12/18/2014 Castillo Souza MD MRI [id number] 12/18/2014 12/18/2014 Castillo Souza MD MRI [id number] 12/18/2014 12/18/2014 Castillo Souza MD MRI [id number] 12/18/2014 12/18/2014 Castillo Souza MD MRI [id number] 12/18/2014 12/18/2014 Castillo Souza MD MRI [id number] 12/18/2014 12/18/2014 Castillo Souza MD MRI [id number] 12/18/2014 12/18/2014 Castillo oSuza MD MRI [id number] 12/18/2014 12/18/2014 Castillo Souza MD MRI [id number] 12/18/2014 12/18/2014 Castillo Souza MD MRI [id number] 12/18/2014 12/18/2014 Castillo Souza MD MRI [id number] 12/18/2014 12/18/2014 Castillo Souza MD [facility] [id number] 12/20/2014 12/20/2014 Castillo Souza MD [facility] [id number] 12/20/2014 12/20/2014 Castillo Souza MD [facility] [id number] 12/20/2014 12/20/2014 Castillo Souza MD [facility] [id number] 12/20/2014 12/20/2014 Castillo Souza MD [facility] [id number] 12/20/2014 12/20/2014 MD [facility] [id number] 12/20/2014 12/20/2014 MD Catalino Pitts [id number] 12/20/2014 12/20/2014 MD Catalino Pitts [id number] 12/20/2014 12/20/2014 MD Catalino Pitts [id number] 12/20/2014 12/20/2014 MD Catalino Pitts [id number] 12/20/2014 12/20/2014 MD Catalino Pitts [id number] 12/20/2014 12/20/2014 MD Catalino Pitts [id number] 12/31/2014 12/31/2014 MD Catalino Pitts [id number] 12/31/2014 12/31/2014 MD Catalino Pitts [id number] 12/31/2014 12/31/2014 MD Catalino Pitts [id number] 12/31/2014 12/31/2014 MD Catalino Pitts [id number] 12/31/2014 12/31/2014 Castillo Souza MD [facility] [id number] 12/31/2014 12/31/2014 Castillo Souza MD [facility] [id number] 12/31/2014 12/31/2014 Castillo Souza MD [facility] [id number] 12/31/2014 12/31/2014 Castillo Souza MD [facility] [id number] 12/31/2014 12/31/2014 Castillo Souza MD [facility] [id number] 12/31/2014 12/31/2014 Castillo Souza MD [facility] [id number] 12/31/2014 12/31/2014 Castillo Souza MD Appointment [id number] 01/23/2015 01/23/2015 Castillo Souza MD Appointment [id number] 01/23/2015 01/23/2015 Castillo Souza MD Appointment [id number] 01/23/2015 01/23/2015 Castillo Souza MD Appointment [id number] 01/23/2015 01/23/2015 Castillo Souza MD Appointment [id number] 01/23/2015 01/23/2015 Castillo Souza MD Appointment [id number] 01/23/2015 01/23/2015 Castillo Souza MD Appointment [id number] 01/23/2015 01/23/2015 Castillo Souza MD Appointment [id number] 01/23/2015 01/23/2015 Castillo Souza MD Appointment [id number] 01/23/2015 01/23/2015 Castillo Souza [facility] [id number] [facility] 03/24/2015 03/24/2015 [facility] Martin Souza MD 6m fu [id number] 06/13/2015 06/13/2015 Castillo Souza MD 6m fu [id number] 06/13/2015 06/13/2015 Castillo Souza MD 6m fu [id number] 06/13/2015 06/13/2015 Castillo Souza MD 6m fu [id number] 06/13/2015 06/13/2015 Castillo Souza MD 6m fu [id number] 06/13/2015 06/13/2015 Castillo Souza MD 6m fu [id number] 06/13/2015 06/13/2015 Castillo Souza MD [facility] [id number] 06/13/2015 06/13/2015 Castillo Souza MD [facility] [id number] 06/13/2015 06/13/2015 Castillo Souza MD [facility] [id number] 06/13/2015 06/13/2015 Castillo Souza MD [facility] [id number] 06/17/2015 06/17/2015 Castillo Souza MD [facility] [id number] 06/17/2015 06/17/2015 Castillo Souza MD [facility] [id number] 06/17/2015 06/17/2015 Castillo Souza MD [facility] [id number] 06/17/2015 06/17/2015 Castillo Souza MD [facility] [id number] 06/17/2015 06/17/2015 Castillo Souza MD [facility] [id number] 06/17/2015 06/17/2015 Castillo Souza MD [facility] [id number] 06/17/2015 06/17/2015 Castillo Souza MD [facility] [id number] 06/17/2015 06/17/2015 Castillo Souza MD [facility] [id number] 06/17/2015 06/17/2015 Castillo Souza MD DEXA [id number] 07/11/2015 07/11/2015 Castillo Souza MD DEXA [id number] 07/11/2015 07/11/2015 Castillo Souza MD DEXA [id number] 07/11/2015 07/11/2015 Castillo Souza MD DEXA [id number] 07/11/2015 07/11/2015 Castillo Souza MD DEXA [id number] 07/11/2015 07/11/2015 Castillo Souza MD DEXA [id number] 07/11/2015 07/11/2015 Castillo Souza MD DEXA [id number] 07/11/2015 07/11/2015 Castillo Souza MD DEXA [id number] 07/11/2015 07/11/2015 Castillo Souza MD DEXA [id number] 07/11/2015 07/11/2015 Castillo Souza [facility] [id number] Rodney Shipman 08/19/2015 08/20/2015 [facility] [place] [facility] Day Surgery [id number] Dangelo Hand 11/24/2015 11/24/2015 [facility] Martin Souza MD Lab results [id number] 02/04/2016 02/04/2016 Castillo Souza MD Lab results [id number] 02/04/2016 02/04/2016 Castillo Souza MD Lab results [id number] 02/04/2016 02/04/2016 Castillo Souza MD Lab results [id number] 02/04/2016 02/04/2016 Castillo Souza MD Lab results [id number] 02/04/2016 02/04/2016 Castillo Souza MD Lab results [id number] 02/04/2016 02/04/2016 Castillo Souza MD Lab results [id number] 02/04/2016 02/04/2016 Castillo Souza MD Lab results [id number] 02/04/2016 02/04/2016 Castillo Souza MD Update [id number] 02/09/2016 02/09/2016 Castillo Souza MD Update [id number] 02/09/2016 02/09/2016 Castillo Souza MD Update [id number] 02/09/2016 02/09/2016 Castillo Souza MD Update [id number] 02/09/2016 02/09/2016 Castillo Souza MD Update [id number] 02/09/2016 02/09/2016 Castillo Souza MD Update [id number] 02/09/2016 02/09/2016 Castillo Souza MD Update [id number] 02/09/2016 02/09/2016 Castillo Souza MD Update [id number] 02/25/2016 02/25/2016 Castillo Souza MD Update [id number] 02/25/2016 02/25/2016 Castillo Souza MD Update [id number] 02/25/2016 02/25/2016 Castillo Souza MD Update [id number] 02/25/2016 02/25/2016 Castillo Souza MD Update [id number] 02/25/2016 02/25/2016 Castillo Souza MD Update [id number] 02/25/2016 02/25/2016 Castillo Souza [facility] [id number] Rodney Shipman 03/03/2016 03/04/2016 [facility] Martin Souza MD Unknown [id number] 03/11/2016 03/11/2016 Castillo Souza MD Unknown [id number] 03/11/2016 03/11/2016 Castillo Souza MD Unknown [id number] 03/11/2016 03/11/2016 Castillo Souza MD Unknown [id number] 03/11/2016 03/11/2016 Castillo Souza MD Unknown [id number] 03/11/2016 03/11/2016 Castillo Souza MD [facility] [id number] 05/06/2016 05/06/2016 Castillo Souza MD [facility] [id number] 05/06/2016 05/06/2016 Castillo Souza MD [facility] [id number] 05/06/2016 05/06/2016 Castillo Souza MD [facility] [id number] 05/06/2016 05/06/2016 Castillo Souza MD 6 MTH [facility] [id number] 09/10/2016 09/10/2016 Castillo Souza MD Labs [id number] 09/10/2016 09/10/2016 Castillo Souza MD Labs [id number] 09/10/2016 09/10/2016 Castillo Souza MD Labs [id number] 09/10/2016 09/10/2016 Castillo Souza MD Vitamin D [id number] 09/10/2016 09/10/2016 Castillo Souza MD Vitamin D [id number] 09/10/2016 09/10/2016 Castillo Souza MD Vitamin D [id number] 09/10/2016 09/10/2016 Castillo Souza [facility] Day Surgery [id number] Dangelo Hand 11/04/2016 11/04/2016 [facility] [place] [facility] [id number] Rodney Shipman 07/16/2017 07/17/2017 [facility] [place] Procedures Procedure Code Date Perfomer Comments Source Abdominal hysterectomy 736272116 [place] [id number] [place] Cholecystectomy [id number] [place] Colonoscopy 08244718 [place] Excision of ganglion cyst [id number] [place] Abdominal hysterectomy [id number] [facility] [place] Appendectomy [id number] [facility] [place] Cholecystectomy [id number] [facility] [place] Colonoscopy [id number] [facility] [place] Excision of ganglion cyst [id number] [facility] [place] Abdominal hysterectomy [id number] [facility] [place] Appendectomy [id number] [facility] [place] Cholecystectomy [id number] [facility] [place] Colonoscopy [id number] [facility] [place] Excision of ganglion cyst [id number] [facility] [place]
--- OUTSIDE RECORDS SUMMARY | 2018-08-21 16:42 | XMS REPORT ---
Author Author Martin Souza Organization [employer] Address Unknown Phone Unavailable Care Team Providers Care Stock Counter Name Role Phone Martin Souza CP Unavailable Allergies No Known Allergies Problems Problem Type Condition Code Onset Dates Condition Status Problem ESRD (end stage renal disease) N18.6 Active Problem Vitamin D deficiency E55.9 Active Problem Muscle spasm M62.838 Active Problem Rheumatoid arthritis of multiple sites without rheumatoid factor M06.09 Active Problem Osteoporosis M81.0 Active Problem Other jail (current) drug therapy Z79.899 Active Medications No Known Medications Results No Known Results Summary Purpose [employer] Submission
[2018-08-21 17:47] LABS: BASOPHILS % 0.5 % (0.0-1.0); EOSINOPHILS # (AUTO) 0.3 (0.0-0.4); EOSINOPHILS % 4.5 % (0.0-6.0); HEMATOCRIT 36.3 % (34.2-44.1); LYMPHOCYTES # (AUTO) 1.1 (1.0-3.2); LYMPHOCYTES % 18.1 % (18.0-39.1); MEAN CORPUSCULAR HEMOGLOBIN 27.6 pg (28-32); MEAN CORPUSCULAR HGB CONC 33.1 g/dL (31-35); MEAN CORPUSCULAR VOLUME 83.6 fL (81-99); MONOCYTES # (AUTO) 0.7 (0.2-0.8); MONOCYTES % 12.2 % (4.4-11.3); NEUTROPHILS # (AUTO) 3.8 (2.1-6.9); NEUTROPHILS % 64.4 % (38.7-80.0); PLATELET COUNT 112 x10e3/uL (140-360); RED BLOOD COUNT 4.34 x10e6/uL (3.6-5.1)
[2018-08-21 18:06] LABS: INR 0.95; PROTHROMBIN TIME 13.5 seconds (11.9-14.5)
[2018-08-21 18:07] LABS: PARTIAL THROMBOPLASTIN TIME 29.2 seconds (23.8-35.5)
[2018-08-21 18:11] LABS: ALBUMIN 2.7 g/dL (3.5-5.0); ALBUMIN/GLOBULIN RATIO 0.6 (0.8-2.0); CALCIUM 9.8 mg/dL (8.4-10.2); CREATININE, SERUM 5.25 mg/dL (0.57-1.11)
--- NOTE | 2018-08-21 18:51 | NUR ---
VERBAL REPORT GIVEN TO LESLIE LAMBERT.
[2018-08-21] MEDS ORDERED: PANTOPRAZOLE SO40 MG PO (20:10)
--- NOTE | 2018-08-21 20:26 | NUR ---
sterile abd placed over site. tolerated well. awake alert skin w/d resp nonlab. nad noted. went over home meds with patient.
--- NOTE | 2018-08-21 22:02 | NUR ---
ATTEMPTED TO CALL REPORT WITHOUT SUCCESS
[2018-08-21 23:30] VITALS: BP 156/67
--- NOTE | 2018-08-21 23:30 | NUR ---
Pt received from ER. Pt A&O and in no apparent distress. Assessed pt PD site and no leakage currently and dressing in place. All safety measures ensured, bed alarm on, and pt call galarza near. Pt encouraged to use call galarza for assistance.
[2018-08-21 23:59] VITALS: BP 156/67
[2018-08-22 04:00] VITALS: BP 150/66
[2018-08-22] MEDS: LEVOTHYROXINE SODIUM 75 MCG TAB PO SCH (06:34)
--- NOTE | 2018-08-22 06:50 | NUR ---
report given to oncoming nurse
[2018-08-22 08:15] VITALS: BP 162/71
[2018-08-22] MEDS: PANTOPRAZOLE SOD 40 MG TABEC PO SCH (09:06)
[2018-08-22] MEDS: PAROXETINE HCL 20 MG TAB PO SCH (09:06)
[2018-08-22] MEDS: CALCITRIOL 0.25 MCG CAP PO SCH (09:06)
[2018-08-22] MEDS: AMLODIPINE BESYLATE 5 MG TAB PO SCH (09:06)
[2018-08-22 09:10] VITALS: BP 162/71
--- NOTE | 2018-08-22 09:12 | NUR ---
Dr. Warren rounding; Per Dr. Warren, he will be consulting Dr. Sauceda to find out where the malfunction is with the peritoneal dialysis catheter.
[2018-08-22] MEDS ORDERED: DIATRIZOATE MEGL/DIATRIZOA SOD 30 ML BTL PO ONE (09:21)
--- NOTE | 2018-08-22 09:25 | NUR ---
Consent obtained for peritoneal dialysis; pt off unit at this time for STAT CT of abdomen.
--- NOTE | 2018-08-22 09:40 | NUR ---
Pt back on unit from CT Abdomen
--- NOTE | 2018-08-22 09:58 | NUR ---
Orders received for patient to have R IJ Tunneled hemodialysis catheter inserted tomorrow, 08/23/18 in interventional radiology; Orders rec'd for 1 time dose of Narcisa
--- NOTE | 2018-08-22 10:10 | NUR ---
Dr. Sohail ny. Orders rec'd and implemented.
--- NOTE | 2018-08-22 10:12 | Diagnostic Imaging Report ---
ADDENDUM #1 Impression: 7. Lung nodules as described above. Recommend follow-up with dedicated low-dose chest CT in 6 months. Signed by: Dr. Fredrick Cm MD on 08/22/2018 10:37 AM ORIGINAL REPORT EXAM: CT Abdomen and Pelvis WITHOUT contrast INDICATION: ^peritoneal catheter leak COMPARISON: None. TECHNIQUE: Abdomen and pelvis were scanned utilizing a multidetector helical scanner from the lung base to the pubic symphysis without administration of IV contrast. Absence of intravenous contrast decreases sensitivity for detection of focal lesions and vascular pathology. Coronal and sagittal reformations were obtained. Routine protocol was performed. IV CONTRAST: None ORAL CONTRAST: Water COMPLICATIONS: None RADIATION DOSE: Total DLP: 184.71 mGy*cm Estimated effective dose: (DLP x 0.015 x size factor) mSv CTDIvol has been reviewed. It is below the limits set by the Radiation Protocol Committee (RPC). FINDINGS: LINES and TUBES: Peritoneal catheter in place, entering the abdomen slightly to the right of the midline in lower abdomen with tip looped in the right pelvis. LOWER THORAX: Right middle lobe linear atelectasis/scarring. Groundglass 6 mm right lower lobe nodule (series 2, image 5). Another 4 mm right lower lobe nodule (2/6). 3 mm subpleural left lower lobe nodule versus subsegmental atelectasis (series 2, image 2). HEPATOBILIARY: Tiny hepatic dome hypodensity is too small to characterize. Otherwise, unenhanced liver is unremarkable. Common bile duct distention up to 1.3 cm, which could be due to reservoir effect. GALLBLADDER: Not visualized. SPLEEN: No splenomegaly. PANCREAS: No focal masses or ductal dilatation. ADRENALS: No adrenal nodules KIDNEYS/URETERS: Bilateral renal cortical atrophy, left greater than right. There are bilateral renal cysts, the largest on the left superior pole measuring 4.6 cm. Full evaluation of the cysts cannot be done without intravenous contrast. No hydronephrosis. No stones. Renal calcifications are probably vascular. Fat stranding along the left renal pelvis and left ureter. GI TRACT: No abnormal distention, wall thickening, or evidence of bowel obstruction. Colonic diverticulosis without evidence of diverticulitis. Appendix is normal. PELVIC ORGANS/BLADDER: Bladder is under distended, limiting evaluation. Hysterectomy. LYMPH NODES: No lymphadenopathy. VESSELS: There is severe atherosclerotic disease in the aorta and major arterial branches. PERITONEUM / RETROPERITONEUM: No free fluid. Trace pneumoperitoneum anterior to the liver and adjacent to the umbilicus. BONES: Old fracture deformity of the right inferior pubic ramus. SOFT TISSUES: Small fat-containing umbilical hernia. Tiny air bubbles are seen underneath the umbilical hernia (series 2, image 49). IMPRESSION: 1. Limited study without intravenous contrast. 2. No definite evidence of acute inflammatory process in the abdomen/pelvis. 3. Peritoneal catheter in place with tip looped in right pelvis. No evidence of break in the visualized portion. 4. Colonic diverticulosis without evidence of diverticulitis. 5. Small amount of pneumoperitoneum without identifiable radiology on this exam. This could be due to recent procedure/instrumentation. Please correlate clinically. 6. Bilateral renal cysts. There is also fat stranding surrounding the left renal pelvis and left ureter. Urinary tract infection cannot be excluded Signed by: Dr. Fredrick Cm MD on 08/22/2018 10:09 AM
[2018-08-22] MEDS ORDERED: VANCOMYCIN 1GM/NS 250 ML 250 ML IV ONE (10:15)
--- NOTE | 2018-08-22 11:59 | NUR ---
Dressing changed to RLQ.
[2018-08-22] MEDS ORDERED: GENTAMICIN 120MG/NS 100ML 100 ML IV ONE (12:30)
--- NOTE | 2018-08-22 13:23 | Consultation ---
DATE OF CONSULTATION: August 22, 2018 HPI: An 83-year-old lady who is well known to me. She was sent to the emergency room because there was apparently a leak found at the peritoneal dialysis catheter, unclear if there was a leak from the catheter lumen or the exit site. She is comfortable, lying supine, no apparent distress. Denies fever, chills, abdominal pain, nausea vomiting, diarrhea, or constipation. CURRENT MEDICATIONS 1. Amlodipine 5 mg daily. 2. Calcitriol 0.25 mg daily. 3. Paroxetine 10 mg daily. 4. Levothyroxine 75 mcg daily. 5. Terazosin 2 mg bedtime. 6. Atorvastatin. 7. Metoprolol. 8. Pantoprazole. For dose schedule, please see OCT. SOCIAL HISTORY: Does not smoke or drink. PAST MEDICAL HISTORY: Type 2 diabetes, hypertension, end-stage renal disease, anemia, chronic kidney disease, and secondary hypoparathyroidism. PHYSICAL EXAMINATION GENERAL: Awake and alert, lying supine. No apparent distress. VITAL SIGNS: Blood pressure 156/60, pulse rate 77, afebrile, oxygen saturation 96% on room air. HEAD AND NECK: Cornea clear. Mucosa moist. Neck veins flat. LUNGS: Relatively clear. HEART: S1 S2 audible. ABDOMEN: Soft, nontender. PD catheter exit site is in satisfactory condition. There is a clamp noted right at the catheter exit site, I have not removed it. Otherwise, nontender exam. EXTREMITIES: No edema. LABORATORY DATA: Sodium 139, potassium 3, bicarb 24, creatinine 5.25. Hemoglobin 12, white count 5.96. INR is 0.95. LFTs are within normal range. IMPRESSION AND PLAN Peritoneal dialysis catheter leak, etiology unclear. I will have the peritoneal dialysis nurse evaluate, flush and drain and see. At the same token, I will obtain a stat CT of the abdomen and pelvis to check the position of the catheter. We will consult Dr. Nikunj Sauceda. Discuss with RN. Job#: [id number] SHUB[place]
--- NOTE | 2018-08-22 14:22 | Consultation ---
DATE OF CONSULTATION: August 22, 2018 [address] Rodney Shipman. 2. Dr. Fany Warren. HISTORY OF PRESENT ILLNESS: The patient is an 83-year-old female who was admitted to the hospital because her peritoneal dialysis catheter is leaking and found to be broken near the insertion site. She says the peritoneal dialysis catheter was placed about a year ago. She has no fever. No abdominal pain. PAST MEDICAL HISTORY: Significant for end-stage renal disease, hypercholesterolemia, hypertension, and hypothyroidism. HOME MEDICATIONS: Amlodipine, aspirin, atorvastatin, calcitriol, N[place], levothyroxine, metoprolol, pantoprazole, paroxetine, and terazosin. ALLERGIES: SHE HAS AN ALLERGY TO LANSOPRAZOLE. PREVIOUS SURGERIES: Placement of peritoneal dialysis catheter. She has previous endoscopies, previous heart catheterization. FAMILY HISTORY: Noncontributory. SOCIAL HISTORY: The patient does not smoke cigarettes or drink alcohol. REVIEW OF SYSTEMS: As stated above; otherwise, was negative. PHYSICAL EXAMINATION GENERAL: The patient is awake and alert, in no distress. VITAL SIGNS: Normal. HEENT: No scleral icterus. NECK: Has no masses. LUNGS: Equal breath sounds are clear bilaterally. CARDIAC: Regular rate and rhythm with no murmur. ABDOMEN: Soft. There is peritoneal dialysis catheter entering the right lower abdomen. There is no distention. No mass. No tenderness. EXTREMITIES: No edema. NEUROLOGIC: Grossly intact. ASSESSMENT: An 83-year-old female with broken peritoneal dialysis catheter. It will need to be replaced. She will also need probably temporary dialysis catheter while the new catheter is healing. This was explained to the patient. Thank you for asking me to see Ms. Ling. Job#: [id number] [place]
--- NOTE | 2018-08-22 16:10 | NUR ---
Call placed to Dr. Shipman to request pain medication on behalf of the patient. Orders for tylenol 650mg received.
[2018-08-22] MEDS ORDERED: ACETAMINOPHEN 325 MG TAB PO PRN (16:30)
--- NOTE | 2018-08-22 17:39 | NUR ---
Call placed to Dr. Shipman to report pain unrelieved by APAP 650mg.
--- NOTE | 2018-08-22 17:41 | NUR ---
Call back rec'd from Dr. Shipman. Orders rec'd for one time dose of Tramadol 50mg.
[2018-08-22] MEDS ORDERED: TRAMADOL HCL 50 MG TAB PO ONE (17:45)
--- NOTE | 2018-08-22 19:06 | NUR ---
Report received and walking rounds complete. Pt resting in bed and in no apparent distress. Pt at bedside. Pt on RA and no tele. All safety measures ensured, bed alarm on, and pt call galarza near. Pt encouraged to use call galarza for assistance.
[2018-08-22 19:33] VITALS: BP 148/69
--- NOTE | 2018-08-22 20:11 | NUR ---
Dr. Warren called to check on pt stauts; Updated MD on status. stated to contact [facility] after pt has tube replaced.
[2018-08-22] MEDS ORDERED: ATORVASTATIN 10 MG TAB PO SCH (21:00)
[2018-08-22] MEDS: ASPIRIN 81 MG CHEW TAB PO SCH (21:23)
[2018-08-22] MEDS: TERAZOSIN HCL 1 MG CAP PO SCH (21:24)
[2018-08-22] MEDS: METOPROLOL SUCCINATE 50 MG TAB XL PO SCH (21:24)
--- NOTE | 2018-08-22 21:25 | NUR ---
gauze and foam dressing re-applied to site. Pt states she moves around on her stomach when she sleeps and would like to have it covered to prevent further damage.
[2018-08-23] VITALS (8 sets, daily range): BP systolic 96–157; BP diastolic 46–70
[2018-08-23 05:29] LABS: INR 0.96; PROTHROMBIN TIME 13.7 seconds (11.9-14.5)
[2018-08-23] MEDS: LEVOTHYROXINE SODIUM 75 MCG TAB PO SCH (05:30)
--- NOTE | 2018-08-23 05:41 | NUR ---
Pt asked about what time her procedure would be and I told her I would find out. I informed the pt that she will need dialysis and her cath replacement. At this time the pt express that she did not want not does she feel like she needs to have a HD cath placed and she only wants to have the PD cath replaced. I informed the pt that she can talked to the MD before the procedure. No consent was obtained due to pt still having questions and not wanting the HD cath.
--- NOTE | 2018-08-23 06:56 | NUR ---
Report given to oncoming nurse and walking rounds complete
[2018-08-23] MEDS: AMLODIPINE BESYLATE 5 MG TAB PO SCH (08:12)
[2018-08-23] MEDS: PANTOPRAZOLE SOD 40 MG TABEC PO SCH (08:13)
[2018-08-23] MEDS: PAROXETINE HCL 20 MG TAB PO SCH (08:13)
[2018-08-23] MEDS: CALCITRIOL 0.25 MCG CAP PO SCH (08:13)
[2018-08-23] MEDS ORDERED: POTASSIUM CHLORIDE 20MEQ/100ML 200 ML IV ONE (09:15)
[2018-08-23] MEDS ORDERED: SODIUM CHLORIDE 0.9% 250ML 250 ML ONE (09:17)
[2018-08-23] MEDS ORDERED: BUPIVACAINE HCL 0.5% INJ 30 ML VIAL INJ ONE (11:47)
--- NOTE | 2018-08-23 12:00 | NUR ---
PT OFF UNIT FOR PROCEDURE OF PERITONEAL REMOVAL AT THIS TIME VIA BED. SECOND BAG OF POTASSIUM WAS TAKEN WITH PT AT THIS TIME
[2018-08-23] MEDS ORDERED: MORPHINE SULFATE INJ 4 MG/ML INJ IV PRN (13:15)
[2018-08-23] MEDS ORDERED: HYDROCODONE/APAP 5MG-325MG TAB PO PRN (13:15)
--- NOTE | 2018-08-23 13:42 | NUR ---
received report from nadya in pacu. pt has peritoneal catheter exchanged at this time
[2018-08-23] MEDS ORDERED: MORPHINE SULFATE INJ 4 MG/ML INJ ONE (13:51)
[2018-08-23] MEDS ORDERED: SUCCINYLCHOLINE 200 MG/10 ML SYR ONE (13:53)
[2018-08-23] MEDS ORDERED: PROPOFOL IV EMULSION 10 MG/ML 20 ML VIAL ONE (13:53)
[2018-08-23] MEDS ORDERED: LIDOCAINE HCL 2% LOCAL INJ 5 ML SDV VIAL INJ ONE (13:53)
[2018-08-23] MEDS ORDERED: DESFLURANE 240 ML BTL INH ONE (13:53)
--- NOTE | 2018-08-23 14:20 | Operative Report ---
DATE OF PROCEDURE: August 23, 2018 PREOPERATIVE DIAGNOSIS: Malfunctioning peritoneal dialysis catheter. POSTOPERATIVE DIAGNOSIS: Malfunctioning peritoneal dialysis catheter. PROCEDURES 1. Removal of tunneled peritoneal dialysis catheter. 2. Laparoscopic placement of tunneled peritoneal dialysis catheter. CONVENTION MANAGER: None. ANESTHESIA: General endotracheal. INDICATIONS AND FINDINGS: Patient is an 83-year-old female admitted to the hospital with leakage from her peritoneal dialysis catheter, which had been in for about a year because it was found that the catheter was broken. At surgery, the new catheter was placed without difficulty. There were adhesions involving omentum, and the catheter was placed beneath the omentum and positioned so that the end of the catheter was in the pelvis. The old cath was removed without difficulty being removed intact. TECHNIQUE: After adequate general endotracheal anesthesia and with the patient in the supine position, the abdomen was prepped and draped in a sterile fashion with ChloraPrep solution. On left side of the abdomen away from the area of previous surgery, the skin and subcutaneous tissues were infiltrated with 0.5% Marcaine. An incision was made and the abdominal wall was elevated, and Veress needle was introduced. Pneumoperitoneum was then created. A 5-mm trocar and cannula was then passed through this wound. Laparoscopic camera was introduced. Initial laparoscopy revealed adhesions in the midline involving the omentum. A 5-mm trocar and cannula was placed in the left lower quadrant. The omentum on the left side of the abdomen was elevated. It was found that the catheter could be placed beneath the omentum in the pelvis away from the area of adhesions so the adhesions did not need to be disturbed. The old catheter was seen extending into the lower abdomen. An incision was made in the left side of the abdomen just below the level of the umbilicus, and hemostat was tunneled subcutaneously into the peritoneal cavity. The catheter was passed along the stoma into the peritoneal cavity. It was grasped with a grasper and delivered into the peritoneal cavity such that the deep cuff was above the peritoneum while the more superficial cuff was in the subcutaneous tissue. Then the end of the catheter was positioned beneath the omentum in the pelvis. It was flushed with saline and found to flush easily and fluid removed easily. The cannulas were then removed. The trocar site wounds were closed with subcuticular sutures of 4-0 Vicryl. Catheter was held in place at the skin exit site with 2-0 nylon. Incisions were made along the course of the previous catheter. Superficial cuff was in the subcutaneous tissue and was dissected free and freed from the subcutaneous tissue. The catheter was then followed in the deeper tissues and the 2nd cuff was found to be at the level of the fascia, but just above the fascia. This was also freed from the surrounding tissues and the old catheter was removed intact. Hemostasis achieved with electrocautery. The wounds were irrigated with saline. The wound was then closed with 3-0 Vicryl for subcutaneous tissue and 4-0 Vicryl subcuticular to the skin. Sterile dressings applied to each wound. The patient tolerated the procedure well. Estimated blood loss for the entire procedure was 5 mL. There were no complications. All counts were correct. The patient was taken to the recovery room in satisfactory condition. Job#: [id number] RI cc:MD KAMI PERKINS MD
--- NOTE | 2018-08-23 14:28 | NUR ---
PT RETURNED FROM PROCEDURE, INITIAL ASSESSMENT PT STABLE, VS WNL, PAIN 5/10 ABD. SHORTLY AFTER C/O SOB AND CHEST DISCOMFORT. STAT EKG ORDERED, O2 @2LPM NC PLACED, PAGED. PT REPORTS SYMPTOMS HAVE REDUCED BUT NOT SUBSIDED AT THIS TIME. PENDING CALLBACK
--- NOTE | 2018-08-23 14:38 | NUR ---
PER MD, CXR STAT ORDERED
[2018-08-23] MEDS ORDERED: MIDAZOLAM HCL 2 MG/2 ML VIAL ONE (14:57)
[2018-08-23] MEDS ORDERED: FENTANYL CITRATE/PF 100MCG/2 ML INJ ONE (14:57)
[2018-08-23] MEDS ORDERED: LIDOCAINE HCL 2% LOCAL 20 ML VIAL ONE (14:58)
[2018-08-23] MEDS ORDERED: SODIUM CHLORIDE 0.9% 500ML 1,000 ML ONE (14:58)
--- NOTE | 2018-08-23 15:03 | Diagnostic Imaging Report ---
PROCEDURE: CHEST SINGLE (PORTABLE) COMPARISON: Patients [facility], DX, CHEST SINGLE (PORTABLE), 05/20/2018, 6:04. INDICATIONS: CHEST PAIN FINDINGS: LUNGS: Mild pulmonary vascular congestion. PLEURA: No effusions or pneumothorax. HEART & MEDIASTINUM: The heart is enlarged. Tortuosity of the thoracic aorta with calcification present. BONES & SOFT TISSUES: No acute findings. CONCLUSION: Cardiomegaly with mild pulmonary vascular congestion. Xavi Sharma D.O. Dictated by: Xavi Sharma D.O. on 08/23/2018 at 15:15 Electronically approved by: Xavi Sharma D.O. on 08/23/2018 at 15:15
--- NOTE | 2018-08-23 15:28 | NUR ---
pt off unit for procedure.
[2018-08-23] MEDS ORDERED: FUROSEMIDE INJ 10 MG/ML 4 ML VIAL IV ONE (16:00)
[2018-08-23] MEDS ORDERED: NALOXONE HCL INJ 0.4 MG/ML AMP ONE (16:28)
--- NOTE | 2018-08-23 16:39 | NUR ---
dr baltazar on unit, pt to return from cathlab shortly, dialysis nurse on unit. per , dont give iv lasix.
--- NOTE | 2018-08-23 17:24 | NUR ---
SPOKE WITH DOCTOR ABOUT DIALYSIS CHAIR SET UP, LABS ARE PENDING WILL FAX INFORMATION SOON CHOICE LETTER IS SIGNED.
--- NOTE | 2018-08-23 17:55 | NUR ---
pt returned from cathlab with tunnelled cath to right subclavian. pt stable and currently recvn dialysis.
[2018-08-23] MEDS ORDERED: HEPARIN SOD (PORCINE) 1000 UNIT/ML 10ML MDV IV PRN (18:30)
[2018-08-23] MEDS ORDERED: HEPARIN SOD (PORCINE) 1000 UNIT/ML SDV IV PRN (18:30)
[2018-08-23] MEDS ORDERED: SODIUM CHLORIDE 0.9% 1000ML 2,000 ML IV SCH (18:30)
[2018-08-23] MEDS ORDERED: SODIUM CHLORIDE 0.9% 1000ML 2,000 ML IV PRN (18:45)
[2018-08-23] MEDS ORDERED: ALBUMIN 25% 12.5GM 0.25 GM/ML BTL IV PRN (18:45)
--- NOTE | 2018-08-23 18:47 | NUR ---
dialysis meds given to dialysis nurse directly from pharmacy - hep for line, ivf and albumin. per dialysis nurse, currently hypotensive
--- NOTE | 2018-08-23 20:00 | NUR ---
pt received. pt assessed. no ss of distress noted at time. 02 nc noted. dialysis nurse at bedside. tele in place per orders. will cont to follow poc. call galarza within reach. Addendum: 08/23/18 at 2327 by Kerri Marr RN right chest wall tunnel catheter cdi.
[2018-08-23] MEDS: TERAZOSIN HCL 1 MG CAP PO SCH (21:00)
[2018-08-23] MEDS: METOPROLOL SUCCINATE 50 MG TAB XL PO SCH (21:00)
--- NOTE | 2018-08-23 22:00 | NUR ---
dialysis complete at time. bp rechecked at time 135/61, p 71. no distress noted. spoke to dr duvall regarding pm bp meds. stated to hold pm bp meds.
[2018-08-23] MEDS: ATORVASTATIN 20 MG TAB PO SCH (22:10)
[2018-08-23] MEDS: ASPIRIN 81 MG CHEW TAB PO SCH (22:10)
[2018-08-24] VITALS: BP 122/58
[2018-08-24 04:00] VITALS: BP 136/61
--- NOTE | 2018-08-24 04:27 | NUR ---
pt resting. no ss of distress noted. call galarza within reach.
[2018-08-24] MEDS: LEVOTHYROXINE SODIUM 75 MCG TAB PO SCH (06:18)
[2018-08-24 08:13] VITALS: BP 132/62
--- NOTE | 2018-08-24 08:20 | NUR ---
pt resting in bed, no c/o pain or s/s distress. vs stable. will continue to monitor.
[2018-08-24] MEDS: AMLODIPINE BESYLATE 5 MG TAB PO SCH (09:00)
--- NOTE | 2018-08-24 09:47 | NUR ---
SIGNED CHOICE FOR [facility] FILED IN CHART. WOULD LIKE TO HAVE , AND TUESDAY FROM 10AM TO 2PM START TIME IF POSSIBLE.
--- NOTE | 2018-08-24 09:48 | NUR ---
SOCIAL WORK INITIAL ASSESSMENT Supervisor [employer] to bedside to discuss plan of care with patient/family. CM/SW role and care transitions discussed. Anticipated discharge plan discussed along with duration of care. CM/SW discussed patients right to make decisions in care. CM/SW work hours given. Patient lives: IN OWN HOUSE WITH Admit/Transfer: VIA HOME POA/Emergency contact: DAUGHTER HOWARD [phone] Current/Previous Home Health: NONE PCP/Follow-up Care: ALONZO Current/Previous DME: HOME DIALYSIS Other Services: HOME DIALYSIS DAILY Employment Status: RETIRED Areas of Concerns: NONE Referral Needs: DIALYSIS CHAIR Education Needs: NONE IMM/FISHER given and signed (if applicable): FISHER Goal for discharge: RETURN HOME INDEPENDENTLY CM/SW left business card at the bedside with contact information. Name and number was also written on the patients whiteboard. Patient verbalized understanding of discussion. CM will follow-up with ongoing discharge and transition of care needs.
[2018-08-24] MEDS: PANTOPRAZOLE SOD 40 MG TABEC PO SCH (09:59)
[2018-08-24] MEDS: CALCITRIOL 0.25 MCG CAP PO SCH (09:59)
[2018-08-24] MEDS: PAROXETINE HCL 20 MG TAB PO SCH (09:59)
--- NOTE | 2018-08-24 11:03 | Consultation ---
DATE OF CONSULTATION: August 24, 2018 CARDIOLOGY CONSULTATION REASON FOR CONSULTATION: Cardiac evaluation/murmur. CHIEF COMPLAINT: Peritoneal dialysis catheter leakage. HPI: This is an 83-year-old female with a known history of CAD, hypertension, hyperlipidemia, palpitations, diabetes, end-stage renal disease on HD therapy via a peritoneal dialysis catheter. The patient presents to [facility] ER with apparently complaints of leakage around the peritoneal catheter. She was seen by general surgery and had removal of peritoneal dialysis catheter and replacement on August 23. No major event reported. Postoperatively, cardiology consulted given cardiac history. Patient was seen in the room in no acute distress. Abdomen is soft and nontender with new PD catheter, and also right IJ tunneled HD catheter was placed. The patient denies any chest pain, any shortness of breath, any orthopnea, PND, any changes from her cardiac status. She states that she feels fine. PAST MEDICAL HISTORY: CAD. Had a left heart catheterization in March 2018 showing 40% to 50% LAD, small diagonal with about 70% blockage, 40% RCA. EF about 60% to 70%. History of end-stage renal disease on peritoneal dialysis being followed by Dr. Warren. History of TIA, diabetes, hypertension, hypercholesterolemia, hypothyroidism, palpitations, reflux, osteoporosis. SURGICAL HISTORY: Partial hysterectomy, cholecystectomy, several PD catheter placements and removal. FAMILY HISTORY: Mother at the age of 80, apparently from "old age." Father at the age of about 60 with a history of lung cancer. SOCIAL HISTORY: She is . 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 Denies any alcohol use or tobacco use. ALLERGIES: ATORVASTATIN APPARENTLY GIVES HER A RASH. PLAVIX, APPARENTLY COMPLAINS OF A RASH. ALSO, LANSOPRAZOLE. REVIEW OF SYSTEMS GENERAL: Denies any weight changes, any fatigue, fevers, chills, night sweats. SKIN: No rashes or bruises. HEENT: Denies any nausea, vomiting, vision disturbances or changes, any blurred vision, any double vision, any earache or discharge, any stuffiness or epistaxis, any sore throat or stiff neck. CARDIAC: Denies any chest pain. Denies any palpitations, dyspnea on exertion, orthopnea, PND or lower extremity edema. RESPIRATORY: Denies any shortness of breath, any hemoptysis, any coughing. GI: Reports good appetite. No nausea, vomiting, diarrhea, constipation, hematemesis, hematochezia. URINARY: Denies any dysuria. VASCULAR: Denies any lower extremity edema or claudication. MUSCULOSKELETAL: Positive for generalized joint pain. NEUROLOGIC: Denies any numbness, tingling, weakness, paralysis, fainting or blackouts. HEMATOLOGY: Denies any bruising or anemia. ENDOCRINE: Denies any heat or cold intolerance, polyuria, polydipsia. PHYSICAL EXAMINATION VITAL SIGNS: Height 64 inches, weight 116 pounds, BMI 20. Recent vital signs are temperature 98.2, pulse 62, respiratory rate 20, blood pressure 132/62, pulse ox 96% on room air. GENERAL: Reliable informant. Appears her stated age in no acute distress. SKIN: No rashes or bruises. A right tunneled HD catheter. HEENT: Normocephalic. The pupils are equal and round. Extraocular movements are intact. Trachea is midline. Oral mucosa is pink and moist. No JVD. No thyromegaly. Soft carotid bruit noted. HEART: Regular rate and rhythm. Soft systolic murmur heard in the right upper sternal border. LUNGS: Bilateral breath sounds clear to auscultation. ABDOMEN: Soft, nontender and nondistended. There is a PD catheter with dressing clean, dry and intact. No organomegaly noted. MUSCULOSKELETAL: Good muscle strength throughout. No lower extremity swelling or edema. VASCULAR: +2 bilateral radial pulses, +1 DP and PT bilateral pulses. NEUROLOGIC: Cranial nerves II through XII are intact. LABS: White count 5.9, hemoglobin 12, hematocrit 36, platelets 112. Sodium 139, potassium 4, chloride 99, BUN 35, creatinine 5.2. Chest x-ray showing mild pulmonary vascular congestion. Recent CT of the abdomen showing colonic diverticulosis without evidence of diverticulitis. Small amount of pneumoperitoneum. Bilateral renal cysts. ASSESSMENT 1. Malfunction of peritoneal catheter status post tunneled peritoneal dialysis catheter on August 23, 2018, and also placement of right internal jugular vein tunneled hemodialysis catheter. 2. End-stage renal disease. 3. Coronary artery disease. 4. Hypertension. 5. Hyperlipidemia. 6. Diabetes. PLAN 1. Patient presents with nonfunctioning peritoneal catheter. It has been replaced. No major events postoperatively. 2. From a cardiac standpoint, the patient is hemodynamically stable. Would advise to continue home cardiac medications. 3. Volume management. HD therapy as per renal's recommendations. 4. Will continue to follow the patient and adjust cardiac therapy as clinical course dictates. Thank you very much for this consult. Seen and evaluated Agree with note DICTATED BY: Nikunj Andrade NP Job#: [id number] MH MTDD
[2018-08-24 12:49] VITALS: BP 168/72
[2018-08-24 17:08] VITALS: BP 157/71
[2018-08-24 20:00] VITALS: BP 170/71
--- NOTE | 2018-08-24 20:00 | NUR ---
pt received. pt assessed. no ss of distress noted at time. 02 nc noted. right chest wall tunnel catheter cdi. mid abd peritoneal dialysis catheter cdi. tele in place. will cont to follow poc. call galarza within reach.
[2018-08-24] MEDS: ATORVASTATIN 20 MG TAB PO SCH (21:03)
[2018-08-24] MEDS: METOPROLOL SUCCINATE 50 MG TAB XL PO SCH (21:03)
[2018-08-24] MEDS: TERAZOSIN HCL 1 MG CAP PO SCH (21:03)
[2018-08-24] MEDS: ASPIRIN 81 MG CHEW TAB PO SCH (21:03)
[2018-08-25] VITALS (8 sets, daily range): BP systolic 107–154; BP diastolic 45–68
--- NOTE | 2018-08-25 04:46 | NUR ---
pt resting. no ss of distress noted. call galarza within reach.
[2018-08-25] MEDS: LEVOTHYROXINE SODIUM 75 MCG TAB PO SCH (05:28)
[2018-08-25] MEDS: PAROXETINE HCL 20 MG TAB PO SCH (09:00)
[2018-08-25] MEDS: AMLODIPINE BESYLATE 5 MG TAB PO SCH (09:00)
[2018-08-25] MEDS: PANTOPRAZOLE SOD 40 MG TABEC PO SCH (09:00)
[2018-08-25] MEDS: CALCITRIOL 0.25 MCG CAP PO SCH (09:00)
--- NOTE | 2018-08-25 11:40 | NUR ---
CM SPOKE TO DR. ROSADO REGARDING LOC. MD NOT TO MAKE PATIENT INPATIENT AT THIS TIME. PENDING RETURN LABS TO SEND TO CENTER FOR CHAIR PLACEMENT.
--- NOTE | 2018-08-25 16:02 | NUR ---
CM SPOKE TO RN REGARDING PATIENT PLAN OF CARE. PATIENT PENDING PLACEMENT AT [facility].
--- NOTE | 2018-08-25 19:30 | NUR ---
NO RESPIRATORY DISTRESS OBSERVED, PATIENT DENIES PAIN. DRESSING DRY AND INTACT TO THE ABDOMEN WITH PD CATHETER INTACT. CALL LIGHT WITHIN EASY REACH, PATIENT INSTRUCTED TO CALL FOR ASSISTANCE NEEDED.
[2018-08-25] MEDS: TERAZOSIN HCL 1 MG CAP PO SCH (21:45)
[2018-08-25] MEDS: ASPIRIN 81 MG CHEW TAB PO SCH (21:45)
[2018-08-25] MEDS: METOPROLOL SUCCINATE 50 MG TAB XL PO SCH (21:45)
[2018-08-25] MEDS: ATORVASTATIN 20 MG TAB PO SCH (21:45)
[2018-08-26] VITALS (7 sets, daily range): BP systolic 122–164; BP diastolic 62–80
--- NOTE | 2018-08-26 02:58 | NUR ---
PATIENT IS SOUNDLY ASLEEP WITHOUT RESPIRATORY DISTRESS, SHE'S EASY TO AROUSE. NO PAIN VOICED, CALL LIGHT WITHIN EASY REACH.
--- NOTE | 2018-08-26 05:30 | NUR ---
PATIENT IS ASLEEP, SHE'S EASY TO AROUSE. NO ACUTE DISTRESS OBSERVED, SHE DENIES PAIN. CALL LIGHT WITHIN EASY REACH, INSTRUCTED TO CALL FOR ASSISTANCE NEEDED.
[2018-08-26] MEDS: LEVOTHYROXINE SODIUM 75 MCG TAB PO SCH (06:29)
--- NOTE | 2018-08-26 07:00 | NUR ---
Received patient sleeping in bed, easily arousable and no s/s of distress, patient denies pain and no complaints at this time, bed low and locked call galarza in reach will continue to monitor
[2018-08-26 07:39] LABS: ALBUMIN 2.6 g/dL (3.5-5.0); ALBUMIN/GLOBULIN RATIO 0.8 (0.8-2.0); ANION GAP 12.9 mmol/L (8-16); CALCIUM 9.7 mg/dL (8.4-10.2); CREATININE, SERUM 3.58 mg/dL (0.57-1.11); POTASSIUM 3.9 mmol/L (3.5-5.1)
[2018-08-26] MEDS: AMLODIPINE BESYLATE 5 MG TAB PO SCH (08:25)
[2018-08-26] MEDS: PAROXETINE HCL 20 MG TAB PO SCH (08:32)
[2018-08-26] MEDS: PANTOPRAZOLE SOD 40 MG TABEC PO SCH (08:32)
[2018-08-26] MEDS: CALCITRIOL 0.25 MCG CAP PO SCH (08:32)
[2018-08-26 11:10] LABS: BASOPHILS % 0.5 % (0.0-1.0); EOSINOPHILS # (AUTO) 0.3 (0.0-0.4); EOSINOPHILS % 5.8 % (0.0-6.0); HEMATOCRIT 30.3 % (34.2-44.1); HEMOGLOBIN 9.7 g/dL (12.0-16.0); LYMPHOCYTES # (AUTO) 1.2 (1.0-3.2); LYMPHOCYTES % 20.9 % (18.0-39.1); MEAN CORPUSCULAR HEMOGLOBIN 26.9 pg (28-32); MEAN CORPUSCULAR VOLUME 83.9 fL (81-99); MONOCYTES # (AUTO) 0.6 (0.2-0.8); MONOCYTES % 10.5 % (4.4-11.3); NEUTROPHILS # (AUTO) 3.5 (2.1-6.9); NEUTROPHILS % 61.8 % (38.7-80.0); PLATELET COUNT 80 x10e3/uL (140-360); RED BLOOD COUNT 3.61 x10e6/uL (3.6-5.1); RED CELL DISTRIBUTION WIDTH 13.8 % (11.7-14.4)
--- NOTE | 2018-08-26 12:10 | NUR ---
Nutrition Intervention Note RD Recommendation(s) for Physician: Consider liberalizing diet to promote Po intake Plan of Care: RD following, monitoring for tolerance and adequacy Nutrition reason for involvement: LOS RD Assessment 08/26. Initial encounter with patient. Pt with C/O 12-15 pound wt loss over the past 3-4 months. Decreased Po intake/appetite. Pt Does not like any supplements such as Ensure or Nepro. Pt has some nausea and chronic constipation. Pt can feed herself. Pt denies any difficulty chewing or swallowing. Did eat better at breakfast. Principal Problems/Diagnoses: PD catheter removal and replacement PMH: CKD stage 5 T2DM, TIA, diverticulosis, HTN, hyperlipidemia, CAD, cholecystectomy IVF: None GI: constipation Skin: Intact Labs: (08/26/2018) lab results reviewed Meds: (08/26/2018) MAR reviewed Malnutrition Evaluation (08/26/2018) The patient meets criteria for MODERATE protein-calorie malnutrition. Energy intake: <75% of estimated energy requirements for >3 months Weight loss: >7.5% in 3 months (Acute) Fat loss: unable to evaluate Muscle loss: unable to evaluate Supporting Evidence: Fluid accumulation: None Functional Status: no changes Diet Education Needs Assessment: Diet education indicated and patient agreeable. Ht:64 Wt:116lbs BMI:19.9kg/m2 IBW:120 lbs Estimated Nutritional Needs: 25-30 calories/day kcal/kg/BW 1-1.5g protein/day g pro/kg/BW Calories:3635-0241 (-) Weight used : 116lbs Protein : 52-79g(-) Weight used: 116lbs Nutrition Prescription (Diet Order): Renal Diet Food Allergies: No known food allergies Diet Adequacy: Meeting fluid needs, Not meeting calorie needs, Not meeting protein needs) Tolerance: Tolerating PO Nutrition Care Level: Moderate Nutrition Diagnosis: Inadequate oral food and beverage intake related to lack of appetite as evidenced by the patient Goal:Patient will meet 75-100% of estimated needs by follow up Progress: Progressing Monitor: Po intake, lab results, I/Os, Wt Jose Rubin RD, LD, CNSC
--- NOTE | 2018-08-26 19:35 | NUR ---
Received patient in bed. No complain at this time.
[2018-08-26] MEDS: ASPIRIN 81 MG CHEW TAB PO SCH (20:56)
[2018-08-26] MEDS: TERAZOSIN HCL 1 MG CAP PO SCH (20:56)
[2018-08-26] MEDS: ATORVASTATIN 20 MG TAB PO SCH (20:56)
[2018-08-26] MEDS: METOPROLOL SUCCINATE 50 MG TAB XL PO SCH (20:57)
--- NOTE | 2018-08-26 23:40 | NUR ---
Patient is alert and responsive. No complain at this time.
[2018-08-27] VITALS (7 sets, daily range): BP systolic 130–147; BP diastolic 61–67
[2018-08-27] MEDS: LEVOTHYROXINE SODIUM 75 MCG TAB PO SCH (05:08)
[2018-08-27] MEDS: PAROXETINE HCL 20 MG TAB PO SCH (08:08)
[2018-08-27] MEDS: CALCITRIOL 0.25 MCG CAP PO SCH (08:08)
[2018-08-27] MEDS: PANTOPRAZOLE SOD 40 MG TABEC PO SCH (08:08)
[2018-08-27] MEDS: AMLODIPINE BESYLATE 5 MG TAB PO SCH (08:09)
[2018-08-27] MEDS: TERAZOSIN HCL 1 MG CAP PO SCH (21:41)
[2018-08-27] MEDS: ASPIRIN 81 MG CHEW TAB PO SCH (21:41)
[2018-08-27] MEDS: ATORVASTATIN 20 MG TAB PO SCH (21:41)
[2018-08-27] MEDS: METOPROLOL SUCCINATE 50 MG TAB XL PO SCH (21:42)
[2018-08-28] VITALS (7 sets, daily range): BP systolic 117–163; BP diastolic 50–70
[2018-08-28] MEDS: LEVOTHYROXINE SODIUM 75 MCG TAB PO SCH (06:15)
--- NOTE | 2018-08-28 07:00 | NUR ---
Dialysis nurse at the bedside. Patient without any complaints.
--- NOTE | 2018-08-28 07:10 | NUR ---
Report given to oncoming nurse and walking rounds complete. Pt currently receiving HD.
--- NOTE | 2018-08-28 07:18 | NUR ---
Report given to oncoming nurse and walking rounds complete.
--- NOTE | 2018-08-28 08:18 | NUR ---
CALLED LAB DUE TO LABS STILL PENDING. NEED HEP PANEL FOR PLACEMENT. LAB STATES THEY GOT THE RESULTS ON THE BUT DO NOT UNDERSTAND WHY IT DID NOT CROSS OVER ON COMPUTER, WILL [facility] TO [facility]
--- NOTE | 2018-08-28 08:50 | NUR ---
MARC CALLED DR. ROSADO ANSWERING SERVICE @ [phone]. PLACED ON HOLD FOR 22 MINUTES THEN SPOKE WITH DHRUV. DHRUV PAGED MD REGARDING INPATIENT ORDER. PENDING RETURN CALL FROM DR. ROSADO OR COVERING PHYSICIAN.
[2018-08-28] MEDS: AMLODIPINE BESYLATE 5 MG TAB PO SCH (09:00)
[2018-08-28] MEDS: CALCITRIOL 0.25 MCG CAP PO SCH (12:03)
[2018-08-28] MEDS: PAROXETINE HCL 20 MG TAB PO SCH (12:03)
[2018-08-28] MEDS: PANTOPRAZOLE SOD 40 MG TABEC PO SCH (12:03)
[2018-08-28] MEDS ORDERED: SODIUM CHLORIDE 0.9% 250ML 500 ML IV PRN (15:30)
[2018-08-28] MEDS ORDERED: MANNITOL 25% 12.5GM/50 ML VIAL IV PRN (15:30)
[2018-08-28] MEDS ORDERED: HEPARIN SOD (PORCINE) 1000 UNIT/ML SDV IV PRN (16:00)
[2018-08-28] MEDS ORDERED: ALBUMIN 25% 12.5GM 0.25 GM/ML BTL IV PRN (16:00)
[2018-08-28] MEDS ORDERED: SODIUM CHLORIDE 0.9% 1000ML 2,000 ML IV PRN (16:00)
--- NOTE | 2018-08-28 19:04 | NUR ---
Report given to oncoming shift. Call galarza within reach.
[2018-08-28] MEDS: ASPIRIN 81 MG CHEW TAB PO SCH (22:36)
[2018-08-28] MEDS: METOPROLOL SUCCINATE 50 MG TAB XL PO SCH (22:36)
[2018-08-28] MEDS: TERAZOSIN HCL 1 MG CAP PO SCH (22:36)
[2018-08-28] MEDS: ATORVASTATIN 20 MG TAB PO SCH (22:36)
[2018-08-29] VITALS (7 sets, daily range): BP systolic 131–179; BP diastolic 57–72
[2018-08-29] MEDS: LEVOTHYROXINE SODIUM 75 MCG TAB PO SCH (06:03)
[2018-08-29] MEDS: AMLODIPINE BESYLATE 5 MG TAB PO SCH (09:48)
[2018-08-29] MEDS: PAROXETINE HCL 20 MG TAB PO SCH (09:48)
[2018-08-29] MEDS: CALCITRIOL 0.25 MCG CAP PO SCH (09:48)
[2018-08-29] MEDS: PANTOPRAZOLE SOD 40 MG TABEC PO SCH (09:48)
--- NOTE | 2018-08-29 09:48 | NUR ---
PT RECEIVED SITTING UP IN BED, AA/O X3. NO C/O AT PRESENT. NEWLY PLACED PD CATH TO ABDOMEN IN PLACE. DRESSING C/D/I. ASSESSMENT COMPLETE, VSS. DISCUSSED PLAN FOR THE DAY.
--- NOTE | 2018-08-29 18:27 | NUR ---
REPORT CALLED TO RN, PT NOTIFIED OF ROOM CHANGE TO [phone]
--- NOTE | 2018-08-29 18:30 | NUR ---
PT LEFT FLOOR VIA W/C WITH ALL BELONGINGS
--- NOTE | 2018-08-29 18:31 | NUR ---
received pt via wheelchair, safely transferred into bed. bed in low and locked position. AAOx4. denies pain. Resp even and unlabored. oriented to room and use of call light. call light placed within reach. instructed to call for assistance.
--- NOTE | 2018-08-29 19:30 | NUR ---
patient recieved awake, alert, lying quietly in bed. vss. no c/o pain noted. pm assessment complete. patient instructed to call for assistance when needed.
[2018-08-29] MEDS: METOPROLOL SUCCINATE 50 MG TAB XL PO SCH (21:00)
[2018-08-29] MEDS: ATORVASTATIN 20 MG TAB PO SCH (21:00)
[2018-08-29] MEDS: TERAZOSIN HCL 1 MG CAP PO SCH (21:00)
[2018-08-29] MEDS: ASPIRIN 81 MG CHEW TAB PO SCH (21:00)
[2018-08-30] VITALS (7 sets, daily range): BP systolic 133–168; BP diastolic 57–71
--- NOTE | 2018-08-30 05:00 | NUR ---
patient appears to be resting quietly. no c/o pain noted throughout the night.
[2018-08-30] MEDS: LEVOTHYROXINE SODIUM 75 MCG TAB PO SCH (05:26)
--- NOTE | 2018-08-30 07:06 | NUR ---
received pt lying in bed with eyes closed, resp even and unlabored. call light within reach. bed in low and locked position. bed alarm on. room door open and RR light on.
[2018-08-30] MEDS: PANTOPRAZOLE SOD 40 MG TABEC PO SCH (08:49)
[2018-08-30] MEDS: AMLODIPINE BESYLATE 5 MG TAB PO SCH (08:49)
[2018-08-30] MEDS: CALCITRIOL 0.25 MCG CAP PO SCH (08:49)
[2018-08-30] MEDS: PAROXETINE HCL 20 MG TAB PO SCH (08:49)
--- NOTE | 2018-08-30 13:14 | NUR ---
CALLED [facility] THEY TRANSFERRED ME TO THE [facility] OFFICE AND STATES HER CM IS JEREMY. SHE STATES THEY RECEIVED THE DOCUMENTS ON TUESDAY, SHE STATES SHE WILL VIEW THE DOCUMENTS AND CALL BACK WITH A CHAIR TIME IF THE CLINIC CAN ACCOMMODATE THE PT.
--- NOTE | 2018-08-30 19:40 | NUR ---
walking rounds done with oncoming nurse. call light within reach.
--- NOTE | 2018-08-30 19:50 | NUR ---
RECEIVED PATIENT ALERT AND VERBAL LYING ON BED. NO COMPLAINTS.
[2018-08-30] MEDS: ASPIRIN 81 MG CHEW TAB PO SCH (20:58)
[2018-08-30] MEDS: TERAZOSIN HCL 1 MG CAP PO SCH (20:59)
[2018-08-30] MEDS: METOPROLOL SUCCINATE 50 MG TAB XL PO SCH (20:59)
[2018-08-30] MEDS: ATORVASTATIN 20 MG TAB PO SCH (20:59)
[2018-08-31] VITALS (8 sets, daily range): BP systolic 113–151; BP diastolic 43–108
--- NOTE | 2018-08-31 00:46 | NUR ---
BLOOD PRESSURE RECHECKED, IMPROVED 146/64. PT IS ASYMPTOMATIC.
[2018-08-31] MEDS: LEVOTHYROXINE SODIUM 75 MCG TAB PO SCH (06:11)
--- NOTE | 2018-08-31 07:18 | NUR ---
Report given to oncoming nurse.
[2018-08-31 08:37] LABS: BASOPHILS # (AUTO) 0.1 (0.0-0.1); BASOPHILS % 0.7 % (0.0-1.0); EOSINOPHILS # (AUTO) 0.3 (0.0-0.4); EOSINOPHILS % 3.2 % (0.0-6.0); HEMATOCRIT 27.7 % (34.2-44.1); HEMOGLOBIN 9.1 g/dL (12.0-16.0); LYMPHOCYTES # (AUTO) 1.3 (1.0-3.2); LYMPHOCYTES % 16.6 % (18.0-39.1); MEAN CORPUSCULAR HEMOGLOBIN 27.6 pg (28-32); MEAN CORPUSCULAR HGB CONC 32.9 g/dL (31-35); MEAN CORPUSCULAR VOLUME 83.9 fL (81-99); MONOCYTES # (AUTO) 0.5 (0.2-0.8); MONOCYTES % 6.7 % (4.4-11.3); NEUTROPHILS # (AUTO) 5.8 (2.1-6.9); NEUTROPHILS % 72.3 % (38.7-80.0); PLATELET COUNT 105 x10e3/uL (140-360); RED CELL DISTRIBUTION WIDTH 14.7 % (11.7-14.4)
[2018-08-31] MEDS: AMLODIPINE BESYLATE 5 MG TAB PO SCH (09:00)
[2018-08-31 09:06] LABS: ANION GAP 12.9 mmol/L (8-16); CALCIUM 10.1 mg/dL (8.4-10.2); CREATININE, SERUM 6.32 mg/dL (0.57-1.11); POTASSIUM 4.9 mmol/L (3.5-5.1)
[2018-08-31] MEDS: PANTOPRAZOLE SOD 40 MG TABEC PO SCH (09:24)
[2018-08-31] MEDS: PAROXETINE HCL 20 MG TAB PO SCH (09:24)
[2018-08-31] MEDS: CALCITRIOL 0.25 MCG CAP PO SCH (09:24)
--- NOTE | 2018-08-31 13:00 | NUR ---
CALLED [facility] TO SEE WHAT THE DELAY FOR CHAIR WAS, EXPLAINED ALL ACTIONS TAKEN TO TODAY AND LET KNOW DR KING IS UPSET AND WANTS THE CHAIR IMMEDIATELY. SPOKE WITH DANN SHE STATES SHE HAS A CHAIR FOR AND SAT FOR 6 PM AND NEEDS TO BE AT FACILITY TOMORROW AT 4 TO COMPLETE PAPERWORK SHE GOES TO STATE THAT THEY WILL FAX LETTER FOR CHAIR TIME TO [phone].
--- NOTE | 2018-08-31 13:51 | Diagnostic Imaging Report ---
ADDENDUM #1 Addendum: The right internal jugular vein is patent. Ultrasound was utilized for vascular access. A permanent image was saved to the medical record. Procedure performed using maximal sterile barrier technique. Signed by: Dr. Xavi Sharma DO on 09/04/2018 10:23 AM ORIGINAL REPORT Procedure: Tunneled hemodialysis catheter placement dated 08/23/2018. Data Analytics Chief Scientist: None. Medications: Versed 2 mg intravenous, Fentanyl 50 mcg intravenous. Patient did have an episode of diminished O2 saturation. She also was difficult to arouse. A dose of 0.4 mg of Narcan and was administered with subsequent rise of the O2 saturation. The patient's vital signs, including pulse oximetry, were continuously monitored by the interventional radiology nurse. Fluoroscopy time: 2.3 minutes. Dose area product: 106.7 cGycm2 Contrast used: None Estimated blood loss: 5-10 cc Complications: No immediate. Procedure in detail: Informed consent for the procedure was obtained from the patient after discussion of risks and benefits. The right neck and upper chest was prepped and draped in the standard sterile fashion after the patient was placed in the supine position on the fluoroscopic table. 1% lidocaine was administered into the skin and subcutaneous tissues of the right lower neck for local anesthesia. Then, under continuous sonographic guidance, a 21-gauge micropuncture needle was advanced into the right internal jugular vein. A 0.018 inch wire was advanced centrally under fluoroscopic guidance. The needle was then removed and access was secured with a micropuncture sheath. A 0.035 inch Amplatz superstiff was advanced through the micropuncture sheath into the inferior vena cava under fluoroscopic guidance. Attention was then turned to the right upper chest. A suitable catheter exit site was determined, approximately 3 fingerbreadths inferior to the clavicle. The skin was marked. 1% lidocaine was epinephrine was used to anesthetize a subcutaneous tract extending from the planned catheter exit site to the venotomy at the right lower neck. A stab incision was made on the right upper chest. Subsequently, the catheter was tunneled from the exit site of the right upper chest to the venotomy at the right lower neck. The retention cuff of the catheter was advanced well into the subcutaneous tunnel. The micropuncture sheath was then removed over the wire and the tract was serially dilated. Finally, a 16.5-Ukrainian peel-away sheath was advanced over the wire under fluoroscopic guidance. A 16 Ukrainian Bard 23 cm tip to cuff split tip catheter was then advanced through the peel-away sheath. This was noted to be too long. At this point 2 Amplatz superstiff wires were then placed through the two lumens and a new 16 Ukrainian Bard split tip 19 cm long tip to cuff catheter was then placed. The catheter tips were positioned in the upper right atrium. Each catheter lumen showed good bidirectional flow. Each lumen was then packed with 2000 units of heparin. The catheter was secured at the exit site on the right upper chest with a pursestring 4-0 Vicryl suture. The venotomy at the right lower neck was closed with interrupted 40 Vicryl sutures. The retention phalange was sutured to the skin with 3-0 Ethilon. A sterile dressing was applied. The patient tolerated the procedure well without immediate complication. Impression: Successful placement of a tunneled dual-lumen hemodialysis catheter (16-Ukrainian Bard split tip, 19-cm tip-cuff length) by a right internal jugular approach. The catheter is OK for immediate use. Signed by: Dr. Xavi Sharma DO on 08/24/2018 4:30 PM
--- NOTE | 2018-08-31 16:00 | NUR ---
pt had dialysis today 1 liter taken removed per dialysis nurse
--- NOTE | 2018-08-31 16:10 | NUR ---
PLACED A CALL TO DR ROSADO FOR DISCHARGED ORDERS , AWAITING CALL BACK.
--- NOTE | 2018-08-31 16:12 | NUR ---
GAVE INFORMATION FOR DIALYSIS TO PT, SHE WILL GO , AND SAT AT 6 PM, SHE WILL NEED TO GO TOMORROW AT 4 TO DO PAPERWORK AND START ON TUESDAY. GAVE ADMISSION LETTER TO PATIENT AND FILED ONE IN CHART LET NURSE KNOW PT WAS READY FOR DISCHARGE FROM CM STANDPOINT TO PLEASE CALL DR ROSADO AND GET ORDER AND DISCHARGE.
--- NOTE | 2018-08-31 17:34 | NUR ---
DR. ROSADO PAGED FOR THE SECOND TIME , CLINIC IS CLOSED, SPOKE WITH ANSWERING SERVICE. AWAITING CALL BACK
--- NOTE | 2018-08-31 18:42 | NUR ---
STILL AWAITING CALL FOR DISCHARGED ORDERS FROM DR. ROSADO. WILL PASSED ON NEXT SHIFT.
--- NOTE | 2018-08-31 18:46 | NUR ---
CALL PLACED THROUGH [facility] IN ANSWERING SERVICE FOR DR. ROSADO. AWAITING CALL BACK
--- NOTE | 2018-08-31 19:30 | NUR ---
patient recieved awake, alert, lying quietly in bed. vss. no c/o pain noted. pm assessment complete. patient made aware of discharge order. patient states, " well i can't go home tonight. i don't have a way home and it's to late. " patient to discharge home in am per . patient instructed to call for assistance when needed.
[2018-08-31] MEDS: METOPROLOL SUCCINATE 50 MG TAB XL PO SCH (21:00)
[2018-08-31] MEDS: TERAZOSIN HCL 1 MG CAP PO SCH (21:00)
[2018-08-31] MEDS: ATORVASTATIN 20 MG TAB PO SCH (21:00)
[2018-08-31] MEDS: ASPIRIN 81 MG CHEW TAB PO SCH (21:00)
[2018-09-01] VITALS: BP 137/60
[2018-09-01 04:00] VITALS: BP 132/58
[2018-09-01] MEDS: LEVOTHYROXINE SODIUM 75 MCG TAB PO SCH (06:00)
[2018-09-01 08:00] VITALS: BP 126/58
[2018-09-01 08:15] VITALS: BP 126/58
[2018-09-01] MEDS: PANTOPRAZOLE SOD 40 MG TABEC PO SCH (09:05)
[2018-09-01] MEDS: CALCITRIOL 0.25 MCG CAP PO SCH (09:05)
[2018-09-01] MEDS: AMLODIPINE BESYLATE 5 MG TAB PO SCH (09:05)
[2018-09-01] MEDS: PAROXETINE HCL 20 MG TAB PO SCH (09:05)
--- NOTE | 2018-09-01 10:40 | NUR ---
PT DISCHARGED HOME WITH WRITTEN DOCUMENTATIONS AND VERBALISED UNDERSTANDING OF D/C TEACHING. IV LINE D/C ON RT FA, NO S/S OF REDNESS , BLEEDING OR SWELLING NOTED. DIALYSIS PORT ON RT SIDE OF NECK INTACT , DRESSING CLEAN AND DRY. PT TO GO FOR DIALYSIS TODAY AT 4PM AND AWARE OF APPOINTMENT.ACCOMPANIED BY STAFF VIA W/C TO PRIVATE AUTO DRIVEN BY FAMILY.
== END 2018-09-01 10:31 | disposition home or self-care (01) | DRG 981 ==
LOC: ER 16:37 → ERHOLD 21:56 → IMCU 23:26 → OBSVTOIN 08-28 09:56 → MED/SURG3 08-29 19:01
PROVIDERS: ADMIT Internal Medicine; ATTEND Internal Medicine
PROC: 0WHG43Z Insertion of Infusion Device into Peritoneal Cavity, Percutaneous Endoscopic Approach (ICD-10-PCS; 2018-08-23)
PROC: 0WPG43Z Removal of Infusion Device from Peritoneal Cavity, Percutaneous Endoscopic Approach (ICD-10-PCS; principal; 2018-08-23 12:30)
PROC: 5A1D70Z Performance of Urinary Filtration, Intermittent, Less than 6 Hours Per Day (ICD-10-PCS; 2018-08-24)
PROC: 0JH63XZ Insertion of Tunneled Vascular Access Device into Chest Subcutaneous Tissue and Fascia, Percutaneous Approach (ICD-10-PCS; 2018-08-24)
PROC: 02HV33Z Insertion of Infusion Device into Superior Vena Cava, Percutaneous Approach (ICD-10-PCS; 2018-08-24)
PROC: B548ZZA Ultrasonography of Superior Vena Cava, Guidance (ICD-10-PCS; 2018-08-24)
PROC: 5A1D70Z Performance of Urinary Filtration, Intermittent, Less than 6 Hours Per Day (ICD-10-PCS; 2018-08-25)
PROC: 5A1D70Z Performance of Urinary Filtration, Intermittent, Less than 6 Hours Per Day (ICD-10-PCS; 2018-08-31)
DX: T85.611A Breakdown (mechanical) of intraperitoneal dialysis catheter, initial encounter (principal); N18.6 End stage renal disease; I12.0 Hypertensive chronic kidney disease with stage 5 chronic kidney disease or end stage renal disease; E11.22 Type 2 diabetes mellitus with diabetic chronic kidney disease; Z99.2 Dependence on renal dialysis; E78.5 Hyperlipidemia, unspecified; F41.9 Anxiety disorder, unspecified; Z82.49 Family history of ischemic heart disease and other diseases of the circulatory system; E87.6 Hypokalemia; Z86.73 Personal history of transient ischemic attack (TIA), and cerebral infarction without residual deficits; E78.00 Pure hypercholesterolemia, unspecified; E20.8 Other hypoparathyroidism; I25.10 Atherosclerotic heart disease of native coronary artery without angina pectoris; I35.0 Nonrheumatic aortic (valve) stenosis
CPT/HCPCS: 36415; 36558; 71045; 74176; 74470; 80048; 80053; 84132; 85025; 85610; 85730; 86704; 86705; 86706; 87340; 90962; 93005; 99284; C1750; C1769; G0378; J1580; J1644; J2001; J2250; J2270; J2310; J3370; J3480; J7030; J7040; J7050

== ENCOUNTER 2018-11-12 15:27 | Inpatient (IN) | payer MEDICARE ==
[~2018-11-12] VITALS: Ht 162.6 cm; Wt 50.8 kg
[~2018-11-12 15:27] MED LIST changes: +PANTOPRAZOLE SO40 MG PO
--- OUTSIDE RECORDS SUMMARY | 2018-11-12 15:32 | XMS REPORT | Continuity of Care Document ---
Author Author [facility] Interface Address Unknown Phone Unavailable Problems Problem Status Onset Date Classification Date Reported Comments Source CERVICAL Active 05/11/2018 SMR Nicholson UNK Active 10/18/2016 [facility] Z12.31 - ENCNTR SCREEN MAMMOGRAM FOR MA Active 07/30/2015 OPID Nicholson 585.4 Active 03/04/2015 [facility] UNK Active 07/30/2014 [facility] 585.2 Active 07/30/2014 [facility] Vitamin D deficiency Active Problem 10/27/2018 Castillo Souza Osteoporosis Active Problem 10/27/2018 Castillo Souza ESRD Active Problem 10/27/2018 Castillo Souza 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 10/27/2018 Castillo Souza Rheumatoid arthritis of multiple sites without rheumatoid factor Active Problem 10/27/2018 Castillo Souza Muscle spasm Active Problem 10/27/2018 Castillo Souza Long-term use of other medications - High Risk Active Problem 07/23/2015 Castillo Souza Unspecified vitamin D deficiency Active Problem 07/23/2015 Castillo Souza RENAL INSUFFICIENCY Active Problem 07/23/2015 Castillo Souza Osteoporosis, postmenopausal Active Problem 07/23/2015 Castillo oSuza Cramp of limb Active Problem 07/23/2015 Castillo Souza Osteoarthrosis, multiple sites Active Problem 07/23/2015 Castillo Souza Rheumatoid arthritis Active Problem 07/23/2015 Castillo Souza Osteopenia Active Problem 09/05/2014 Castillo Souza Osteopenia of multiple sites Active Problem 10/27/2018 Castillo Souza Age related osteoporosis Active Diagnosis 03/16/2016 Castillo Souza Acid reflux Active Problem 07/19/2017 OPID Nicholson, OPID [place] Anemia of chronic renal failure Active Problem 07/19/2017 OPID Nicholson, OPID [place] Anxiety Active Problem 07/19/2017 OPID Nicholson, BOB [place] DM - Diabetes mellitus Active Problem 07/19/2017 [facility] [place] [place] - Hard of hearing Active Problem 07/19/2017 [facility] [place] HTN - Hypertension Active Problem 07/19/2017 [facility] [place] Hypercholesterolemia Active Problem 07/19/2017 [facility] [place] Hypertriglyceridemia Active Problem 07/19/2017 OPID Nicholson, OPID [place] Hypothyroid Active Problem 07/19/2017 OPID Nicholson, OPID [place] Renal failure syndrome Active Problem 07/19/2017 OPID Nicholson, OPID [place] Ventral hernia Active Problem 07/19/2017 OPID Nicholson, OPID [place] CHRONIC KIDNEY DISEASE, STAGE 4 (SEVERE) Active [facility] END STAGE RENAL DISEASE Active [facility] Medications Medication Details Route Status Patient Instructions Ordering Provider Order Date Source Prolia 60MG SQ Subcutaneous Active 60 MG/ML Subcutaneous Q 6 MONTHS Ozuna 08/31/2017 Castillo Souza Prolia 60MG SQ Subcutaneous Active 60 MG/ML [facility] 06/22/2017 Castillo Souza Voltaren Gel apply to affected area Transdermal Active 1% Transdermal Four times a day [place] 04/05/2017 Castillo Souza Vitamin D (Ergocalciferol) 1 capsule Orally Active 50,000 Orally ONCE A WEEK [place] 12/20/2016 Castillo Souza Oxycodone Hydrochloride 5 MG Oral Tablet 5 mg, Route: PO, Drug form: TAB, ONCE, Dosing Weight 59.545, kg, PRN Pain Score 4-6, Start date: 11/04/16 11:10:00 [employer] Inactive 11/04/2016 [facility] labetalol (ANES) Route: IV, Drug form: INJ, ONCE, Stop date: 11/04/16 10:12:00 [employer] INST[employer] Inactive 11/04/2016 [facility] ePHEDrine (ANES) Route: IV, Drug form: INJ, ONCE, Stop date: 11/04/16 9:58:00 [employer]OVE INST[employer]ER Inactive 11/04/2016 [facility] famotidine (ANES) Route: IV, Drug form: INJ, ONCE, Stop date: 11/04/16 9:58:00 [employer]OVE INST[employer]ER Inactive 11/04/2016 [facility] ondansetron (ANES) Route: IV, Drug form: INJ, ONCE, Stop date: 11/04/16 9:58:00 [employer]OVE INST[employer]ER Inactive 11/04/2016 [facility] fentaNYL (ANES) Route: IV, Drug form: INJ, ONCE, Stop date: 11/04/16 9:58:00 [employer]OVE INST[employer]ER Inactive 11/04/2016 [facility] propofol (ANES) Route: IV, Drug form: INJ, ONCE, Stop date: 11/04/16 9:58:00 [employer]LECTR[employer]OVE INST[employer]ER Inactive 11/04/2016 [facility] lidocaine (ANES) Route: IV, Drug form: INJ, ONCE, Stop date: 11/04/16 9:58:00 [employer]OVE INST[employer]ER Inactive 11/04/2016 [facility] rocuronium (ANES) Route: IV, Drug form: INJ, ONCE, Stop date: 11/04/16 9:58:00 [employer]RIC [employer]OVE INST[employer]ER Inactive 11/04/2016 [facility] neostigmine (ANES) Route: IV, Drug form: INJ, ONCE, Stop date: 11/04/16 9:58:00 [employer]LECTRIC [employer]OVE INST[employer]ER Inactive 11/04/2016 [facility] glycopyrrolate (ANES) Route: IV, Drug form: INJ, ONCE, Stop date: 11/04/16 9:58:00 [employer]OVE INST[employer] Inactive 11/04/2016 [facility] acetaminophen-codeine #3 2 tab, Route: PO, Drug Form: TAB, Dosing Weight 59.545, kg, Q4H, PRN Pain Score 4-6, Start date: 11/04/16 9:53:00 [employer]OVE INST[employer]ER, Duration: 30 day, Stop date: 12/04/16 9:52:00 CDT Inactive 11/04/2016 [facility] Morphine 2 mg, Route: IVP, Q3H, Dosing Weight 59.545, kg, PRN Pain Score 1-3, Start date: 11/04/16 9:53:00 ELECTRIC [employer]OVE INST[employer]ER, Duration: 30 day, Stop date: 12/04/16 9:52:00 CDT Inactive 11/04/2016 [facility] vancomycin (ANES) (ANES) Route: IV, Drug form: INJ, Start date: 11/04/16 9:19:00 [employer]OVE INST[employer]ER, Stop date: 11/04/16 10:19:00 [employer]LECT[employer]IC [employer]OVE INST[employer]ER Inactive 11/04/2016 [facility] ceFAZolin (ANES) (ANES) Route: IV, Drug form: INJ, Start date: 11/04/16 9:19:00 ELECTRIC [employer]OVE INST[employer]ER, Stop date: 11/04/16 10:19:00 ELECTRIC [employer]OVE INST[employer]ER Inactive 11/04/2016 [facility] sodium chloride 0.9% 500 ml INJ (ANES) Route: IV, Total Volume: 500, Start date: 11/04/16 9:10:00 ELECTRIC [employer]OVE INST[employer]ER, Stop date: 11/04/16 10:10:00 ELECTRIC [employer]OVE INST[employer]ER Inactive 11/04/2016 [facility] sodium chloride 0.9% 500 ml INJ 500 mL 500 mL, Rate: 40 ml/hr, Infuse over: 12.5 hr, Route: IV, Dosing Weight 59.545 kg, Total Volume: 500, Start date: 11/04/16 8:04:00 ELECTRIC [employer]OVE INST[employer]ER, Duration: 1 day, Stop date: 11/05/16 8:03:00 [employer]LECTRIC [employer]OVE INST[employer]ER Inactive 11/04/2016 [facility] Lactated Ringers 1,000 mL 1,000 mL, Rate: 40 ml/hr, Infuse over: 25 hr, Route: IV, Dosing Weight 59.545 kg, Total Volume: 1,000, Start date: 11/04/16 8:03:00 [employer]OVE INST[employer]ER, Duration: 1 day, Stop date: 11/05/16 8:02:00 ELECTRIC [employer]OVE INST[employer]ER Inactive 11/04/2016 [facility] Vitamin D3 50,000 intl units oral capsule 50,000 IntlUnit=1 cap, PO, qWeek, # 12 cap, 0 Refill(s) Active 10/28/2016 [facility] glimepiride 1 mg oral tablet 1 mg=1 tab, PO, Daily, 0 Refill(s) Active 10/28/2016 [facility] Ancef 2 gm, 100 mL, Route: IVPB, Drug form: INJ, PRE OP, Dosing Weight 57.784, kg, Start date: 10/28/16 10:00:00 [employer] IN[employer]ER, Duration: 30 day, Stop date: 11/27/16 10:59:00 CDTNotes: Same as: Ancef No Longer Active 10/28/2016 [facility] Vancomycin 1 gm, Route: IVPB, PRE OP, Dosing Weight 57.784, kg, Start date: 10/28/16 10:00:00 [employer]OVE INST[employer], Duration: 30 day, Stop date: 11/27/16 10:59:00 CDTNotes: TIME CRITICAL MEDICATION (Same As: Vancocin) Infusion rate 2001 mg: infuse over 2.5 hours MEDICATION WASTE Product Size: 1000 mg Product Wasted: ___ mg No Longer Active 10/28/2016 [facility] Famotidine 10 MG Oral Tablet 10 mg=1 tab, PO, BID, 0 Refill(s) Active 10/28/2016 [facility] Vitamin D (Ergocalciferol) 1 capsule Orally Active 25995 UNIT Orally Once a week [place] 09/10/2016 Castillo Burrowser PredniSONE 2 tablets with food or milk Orally Active 5 MG Orally Once a day [place] 02/09/2016 Castillo Souza Nexium 1 capsule Orally Active 40 MG Orally Once a day [place] 02/09/2016 [facility] propofol (ANES) Route: IV, Drug form: INJ, ONCE, Stop date: 11/24/15 9:58:00 Inactive 11/24/2015 [facility] lidocaine (ANES) Route: IV, Drug form: INJ, ONCE, Stop date: 11/24/15 9:58:00 Inactive 11/24/2015 [facility] fentaNYL (ANES) Route: IV, Drug form: INJ, ONCE, Stop date: 11/24/15 9:53:00 Inactive 11/24/2015 [facility] midazolam (ANES) Route: IV, Drug form: SOLN, ONCE, Stop date: 11/24/15 9:53:00 Inactive 11/24/2015 [facility] ceFAZolin (ANES) Route: IV, Drug form: INJ, ONCE, Stop date: 11/24/15 9:53:00 Inactive 11/24/2015 [facility] Oxycodone 10 mg, 2 tab, Route: PO, Drug form: TAB, Q4H, Dosing Weight 57.784, kg, PRN Pain Score 7-10, Start date: 11/24/15 9:51:00, Duration: 30 day, Stop date: 12/24/15 9:50:00Notes: (Same as: Roxicodone) Inactive 11/24/2015 [facility] Flumazenil 0.2 mg, 2 mL, Route: IVP, Drug form: INJ, PRN, Dosing Weight 57.784, kg, PRN Benzodiazepine Reversal, Initial dose, Start date: 11/24/15 9:51:00, Duration: 30 day, Stop date: 12/24/15 9:50:00Notes: ( Same as: Romazicon) Inactive 11/24/2015 [facility] Meperidine 12.5 mg, 0.25 mL, Route: IVP, Drug form: INJ, Q30Min, Dosing Weight 57.784, kg, PRN Other -See Comment, For shivering, Start date: 11/24/15 9:51:00, Duration: 2 doses or times, Stop date: Limited # of timesNotes: (Same As: Demerol) Inactive 11/24/2015 [facility] Naloxone 0.04 mg, 0.1 mL, Route: IVP, Drug form: INJ, Q2MIN, Dosing Weight 57.784, kg, PRN Narcotic Reversal, Start date: 11/24/15 9:51:00, Duration: 8 doses or times, Stop date: Limited # of timesNotes: Same as Narcan Inactive 11/24/2015 [facility] Fentanyl 25 microgram, 0.5 mL, Route: IVP, Drug form: INJ, Q5Min, Dosing Weight 57.784, kg, PRN Pain Score 4-6, Start date: 11/24/15 9:51:00, Duration: 4 doses or times, Stop date: Limited # of timesNotes: (Same as: Sublimaze) Preservative free. Inactive 11/24/2015 [facility] Hydromorphone 0.5 mg, 0.5 mL, Route: IVP, Drug form: INJ, Q5Min, Dosing Weight 57.784, kg, PRN Pain Score 7-10, Start date: 11/24/15 9:51:00, Duration: 4 doses or times, Stop date: Limited # of times Inactive 11/24/2015 [facility] Ondansetron 4 mg, 2 mL, Route: IVP, Drug form: INJ, ONCE, Dosing Weight 57.784, kg, PRN Nausea & Vomiting, Start date: 11/24/15 9:51:00Notes: (Same as: Zofran) MEDICATION WASTE Product Size: 4 mg Product Wasted: ___ mg Inactive 11/24/2015 [facility] Hydralazine 10 mg, 0.5 mL, Route: IVP, Drug form: INJ, Q20Min, Dosing Weight 57.784, kg, PRN Elevated BP, Start date: 11/24/15 9:51:00, Duration: 2 doses or times, Stop date: Limited # of timesNotes: (Same as: A presoline) Push over 5 minutes Inactive 11/24/2015 [facility] ondansetron (ANES) Route: IV, Drug form: INJ, ONCE, Stop date: 11/24/15 9:43:00 Inactive 11/24/2015 [facility] vancomycin (ANES) (ANES) Route: IV, Drug form: INJ, Start date: 11/24/15 9:11:00, Stop date: 11/24/15 10:11:00 Inactive 11/24/2015 [facility] Sodium Chloride 0.154 MEQ/ML Injectable Solution 500 mL, Rate: 25 ml/hr, Infuse over: 20 hr, Route: IV, Dosing Weight 57.784 kg, Total Volume: 500, Start date: 11/24/15 9:09:00, Duration: 30 day, Stop date: 12/24/15 9:08:00 Inactive 11/24/2015 [facility] Sodium Chloride 0.9% IV (ANES) (ANES) Route: IV, Total Volume: 500, Start date: 11/24/15 9:08:00, Stop date: 11/24/15 10:08:00 Inactive 11/24/2015 [facility] Calcium Chloride 0.0014 MEQ/ML / Potassium Chloride 0.004 MEQ/ML / Sodium Chloride 0.103 MEQ/ML / Sodium Lactate 0.028 MEQ/ML Injectable Solution 1,000 mL, Rate: 25 ml/hr, Infuse over: 40 hr, Route: IV, Dosing Weight 57.784 kg, Total Volume: 1,000, Start date: 11/24/15 9:08:00, Duration: 30 day, Stop date: 12/24/15 9:07:00 Inactive 11/24/2015 [facility] Vancomycin 1 gm, Route: IVPB, PRE OP, Dosing Weight 59.091, kg, Start date: 11/17/15 17:00:00, Duration: 8 day, Stop date: 11/25/15 16:59:00Notes: TIME CRITICAL MEDICATION (Same As: Vancocin) Infusion rate 2001 mg: infuse over 2.5 hours MEDICATION WASTE Product Size: 1000 mg Product Wasted: ___ mg No Longer Active 11/17/2015 [facility] Ancef 2 gm, 100 mL, Route: IVPB, Drug form: INJ, PRE OP, Dosing Weight 59.091, kg, Start date: 11/17/15 17:00:00, Duration: 8 day, Stop date: 11/25/15 16:59:00Notes: Same as: Ancef No Longer Active 11/17/2015 [facility] Hydralazine 10 mg, Route: IVP, Q20Min, Dosing Weight 60, kg, PRN Elevated BP, Start date: 03/24/15 13:35:00, Duration: 2 doses or times, Stop date: Limited # of times Inactive 03/24/2015 [facility] Glycopyrrolate 0.2 mg, Route: IVP, Q5Min, Dosing Weight 60, kg, PRN Bradycardia, Start date: 03/24/15 13:35:00, Duration: 3 doses or times, Stop date: Limited # of times Inactive 03/24/2015 [facility] Ondansetron 4 mg, Route: IVP, ONCE, Dosing Weight 60, kg, PRN Nausea & Vomiting, Start date: 03/24/15 13:35:00 Inactive 03/24/2015 [facility] Flumazenil 0.2 mg, Route: IVP, PRN, Dosing Weight 60, kg, PRN Benzodiazepine Reversal, Initial dose, Start date: 03/24/15 13:35:00, Duration: 30 day, Stop date: 04/23/15 13:34:00 Inactive 03/24/2015 [facility] Meperidine 12.5 mg, Route: IVP, Q30Min, Dosing Weight 60, kg, PRN Other -See Comment, For shivering, Start date: 03/24/15 13:35:00, Duration: 2 doses or times, Stop date: Limited # of times Inactive 03/24/2015 [facility] Promethazine 6.25 mg, Route: IVPB, ONCE, Dosing Weight 60, kg, PRN Nausea & Vomiting, Start date: 03/24/15 13:35:00 Inactive 03/24/2015 [facility] Naloxone 0.04 mg, Route: IVP, Q2MIN, Dosing Weight 60, kg, PRN Narcotic Reversal, Start date: 03/24/15 13:35:00, Duration: 8 doses or times, Stop date: Limited # of times Inactive 03/24/2015 [facility] Morphine 4 mg, Route: IVP, Q5Min, Dosing Weight 60, kg, PRN Pain Score 7-10, Start date: 03/24/15 13:35:00, Duration: 3 doses or times, Stop date: Limited # of times Inactive 03/24/2015 [facility] Hydromorphone 0.5 mg, Route: IVP, Q5Min, Dosing Weight 60, kg, PRN Pain Score 7-10, Start date: 03/24/15 13:35:00, Duration: 4 doses or times, Stop date: Limited # of times Inactive 03/24/2015 [facility] Diphenhydramine 12.5 mg, Route: IVP, Drug form: INJ, Q6H, Dosing Weight 60, kg, PRN Itching, Start date: 03/24/15 13:35:00, Duration: 30 day, Stop date: 04/23/15 13:34:00 Inactive 03/24/2015 [facility] Fentanyl 25 microgram, Route: IVP, Q5Min, Dosing Weight 60, kg, PRN Pain Score 4-6, Start date: 03/24/15 13:35:00, Duration: 4 doses or times, Stop date: Limited # of times Inactive 03/24/2015 [facility] Ketorolac 30 mg, 1 mL, Route: [...] mg Product Wasted: ___ mg Inactive 03/24/2015 [facility] Oxycodone 10 mg, Route: PO, Drug form: TAB, Q4H, Dosing Weight 60, kg, PRN Pain Score 7-10, Start date: 03/24/15 13:35:00, Duration: 30 day, Stop date: 04/23/15 13:34:00 Inactive 03/24/2015 [facility] Metoprolol 1 mg, Route: IVP, Q5Min, Dosing Weight 60, kg, PRN Other -See Comment, Start date: 03/24/15 13:35:00, Duration: 5 doses or times, Stop date: Limited # of times Inactive 03/24/2015 [facility] acetaminophen-codeine #3 1 tab, Route: PO, Drug Form: TAB, Dosing Weight 60, kg, Q4H, PRN Pain Score 4-6, Start date: 03/24/15 13:01:00, Duration: 30 day, Stop date: 04/23/15 13:00:00 Inactive 03/24/2015 [facility] Morphine 2 mg, Route: IVP, Q3H, Dosing Weight 60, kg, PRN Pain Score 1-3, Start date: 03/24/15 13:01:00, Duration: 30 day, Stop date: 04/23/15 13:00:00 Inactive 03/24/2015 [facility] Ancef 2 gm, Route: IVPB, ONCE, Dosing Weight 60, kg, Start date: 03/24/15 11:43:00, Duration: 1 doses or times, Stop date: 03/24/15 11:43:00 Inactive 03/24/2015 [facility] Sodium Chloride 0.154 MEQ/ML Injectable Solution 500 mL, Rate: 25 ml/hr, Infuse over: 20 hr, Route: IV, Dosing Weight 60 kg, Total Volume: 500, Start date: 03/23/15 8:26:00, Duration: 2 day, Stop date: 03/25/15 8:25:00 No Longer Active 03/23/2015 [facility] Vancomycin 1 gm, 200 mL, Route: IVPB, Drug form: INJ, PRE OP, Dosing Weight 60, kg, Start date: 03/17/15 15:00:00, Duration: 30 day, Stop date: 04/16/15 14:59:00Notes: TIME CRITICAL MEDICATION No Longer Active 03/17/2015 [facility] Metoprolol Tartrate 1 tablet Orally Active 50 MG Orally Once a day Ranjit Souza Nubia 1 tablet as needed Orally Active 160 MG Orally Once a day Laith Souza Vitamin D (Ergocalciferol) 1 capsule Orally Active 50,000 Orally ONCE A WEEK [facility] Castillo Harley Aspir-81 1 tablet Orally Active 81 MG Orally Once a day Ranjit Castillo Souza Prolia 60MG SQ Subcutaneous Active 60 MG/ML Subcutaneous Q 6 MONTHS Castillo Souza Calcitriol 1 capsule Orally Active 0.25 MCG Orally Once a day Castillo Souza Levothyroxine Sodium 1 tablet Orally Active 75 MCG Orally Once a day Castillo Souza Paroxetine HCl 1 tablet in the morning Orally Active 10 MG Orally Once a day Castillo Souza [place] 3 1 capsule Orally Active 1200 mg Orally Once a day Castillo Souza Sodium Bicarbonate 1 tablet Orally Active 650 MG Orally twice a day Castillo Souza Famotidine 1 tablet as needed Orally Active 10 MG Orally Twice a day Castillo Souza Ergocalciferol 1 capsule Orally Active 1000 mg Orally Once a day Castillo Souza Cyanocobalamin 1 ml Injection Active 1000 MCG/ML Injection Once a month Castillo Souza Amlodipine Besylate 1/2 tablet Orally Active 5 MG Orally Once a day Castillo Souza Amlodipine Besylate 1/2 tablet Orally [...] Orally Once a day Ozuna Castillo Souza [place] 3 1 capsule Orally Active 1200 mg [...] Active 10 MG Orally Twice a day Ozuna Castillo Souza Aspir-81 1 tablet Orally Active 81 MG Orally Once a day [facility] Castillo Souza Calcitriol 1 capsule Orally Active 0.25 MCG Orally Once a day Jen Souza Prolia 60MG SQ Subcutaneous Active 60 MG/ML Subcutaneous Q 6 MONTHS Jen Souza Atorvastatin Calcium 1 tablet Orally Active 10 MG Orally Once a day Harley Souza Fenofibrate 1 tablet Orally Active 48 MG Orally Once a day Souza Castillo Souza Glimepiride 1 tablet with breakfast or the first main meal of the day Orally Active 1 MG Orally Once a day Souza Castillo Souza Losartan Potassium 1 tablet Orally Active 25 MG Orally Once a day Ozunanicole Souza Omeprazole 2 capsules Orally Active 20 MG Orally Once a day Souza Castillo Souza Tricor 1 tablet Orally Active 48 MG Orally Once a day Ozunanicole Souza Synthroid 1 tablet every morning on an empty stomach Orally Active 75 MCG Orally Once a day Ozunanicole Souza Vitamin B-12 15 ml Orally Active 1000 MCG/15ML Orally Once a day Souza Castillo Souza Nubia 1 tablet as needed Orally Active 160 MG Orally Once a day Harley Souza Allergies, Adverse Reactions, Alerts Substance Category [...] exams dated: 07/16/2017 mammogram, 08/19/[address] - [facility], 06/26/2014 mammogram, 09/28/2013 mammogram, 09/26/2012 mammogram, and 09/17/[address] - [facility]. TECHNIQUE: Mammographic views were obtained using digital [...] is recommended.(07/18/2019) This exam was interpreted at [id number] for CHELSEA Mac Dino. Professional services are provided by the [facility]. Deisy Vance M.D. ak/penrad:07/19/2018 10:59:26 Operations Planner(s): Miranda Briggs, RT(R)(M), [facility] letter sent: BI-RADS 1/2 Mammogram BI-RADS: 2 Benign 07/17/2018 - - Read by: Deisy Vance MD Dictated Date/time: 07/19/18 10:59 Electronically Signed by: Deisy Vance MD 07/19/18 10:59 FINAL REPORT [facility] Spine cervical 2 or 3 view [...] - This report was dictated by a Sail Repair Person/Fellow. I have personally reviewed the images as well as the Resident's interpretation and agree with the findings. Read by: Williams Nails MD Resident: Williams Nails MD Dictated Date/time: 05/02/18 16:27 Electronically Signed by: Shira Jaramillo MD 05/02/18 18:42 FINAL REPORT [facility] Breast Mammo Scrn MC incl CAD MA Breast Mammo Scrn MC incl CAD MA BILATERAL DIGITAL SCREENING MAMMOGRAM WITH CAD: 07/16/2017 CLINICAL: /Z12.31 Encounter For Screening Mammogram For Malignant Neoplasm Of Breast. Current study was evaluated with a Computer Aided Detection (CAD) system. COMPARISON:Comparison is made to exams dated: 08/19/2015 mammogram - [facility], 06/26/2014 mammogram, 09/28/2013 mammogram, 09/26/2012 mammogram, and 09/17/2011 mammogram - [facility]. TECHNIQUE: Mammographic views were obtained using digital [...] is recommended.(07/17/2018) Wili Ribera M.D. rsl/penrad:07/19/2017 09:55:37 Operations Planner(s): Tejal Lucio [facility] letter sent: BI-RADS 1/2 Dense Mammogram BI-RADS: 2 Benign 07/16/2017 - - Read by: Wili Ribera MD Dictated Date/time: 07/19/17 09:55 Electronically Signed by: Wili Ribera MD 07/19/17 09:55 FINAL REPORT [facility] ELECTROLYTES Potassium Lvl 4.3 meq/L 3.5 - 5.1 11/04/2016 [facility] BLOOD [facility] RESULTS Antibody Scrn Negative (10/28/16 10:13 AM) 10/28/2016 [facility] BLOOD [facility] RESULTS ABO/Rh A POS 10/28/2016 [facility] ELECTROLYTES AGAP 12.4 meq/L 10.0 - 20.0 10/28/2016 [facility] ELECTROLYTES eGFR 12 mL/min/1.73m2 10/28/2016 Result [...] should be multiplied by the estimated BMI. [facility] ELECTROLYTES BUN 36 mg/dL 7 - 22 10/28/2016 [facility] ELECTROLYTES Glucose Lvl 95 mg/dL 70 - 99 10/28/2016 [facility] ELECTROLYTES Creatinine Lvl 3.50 mg/dL 0.50 - 1.40 10/28/2016 [facility] ELECTROLYTES Calcium Lvl 9.1 mg/dL 8.5 - 10.5 10/28/2016 [facility] ELECTROLYTES CO2 21 meq/L 24 - 32 10/28/2016 [facility] ELECTROLYTES Potassium Lvl 4.4 meq/L 3.5 - 5.1 10/28/2016 [facility] ELECTROLYTES Chloride Lvl 112 meq/L 95 - 109 10/28/2016 [facility] ELECTROLYTES Sodium Lvl 141 meq/L 135 - 145 10/28/2016 [facility] HEMATOLOGY Lymphocytes 21.2 % 20.0 - 40.0 10/28/2016 [facility] HEMATOLOGY Basophils 1.5 % 0.0 - 1.0 10/28/2016 [facility] HEMATOLOGY Segs-Bands # 4.2 K/CMM 1.5 - 8.1 10/28/2016 [facility] HEMATOLOGY Eosinophils 3.9 % 0.0 - 4.0 10/28/2016 [facility] HEMATOLOGY Monocytes 7.5 % 2.0 - 12.0 10/28/2016 [facility] HEMATOLOGY Eosinophils # 0.2 K/CMM 0.0 - 0.5 10/28/2016 [facility] HEMATOLOGY Lymphocytes # 1.4 K/CMM 1.0 - 5.5 10/28/2016 [facility] HEMATOLOGY Monocytes # 0.5 K/CMM 0.0 - 0.8 10/28/2016 [facility] Basophils # 0.1 K/CMM 0.0 - 0.2 10/28/2016 [facility] HEMATOLOGY Segs 65.9 % 45.0 - 75.0 10/28/2016 [facility] HEMATOLOGY INR 1.04 0.85 - 1.17 10/28/2016 [facility] HEMATOLOGY PT 13.8 s 12.0 - 14.7 10/28/2016 [facility] [facility] PTT 30.0 s 22.9 - 35.8 10/28/2016 [facility] MPV 8.3 fL 7.4 - 10.4 10/28/2016 [facility] MCHC 34.0 g/dL 32.0 - 36.0 10/28/2016 [facility] RDW 13.5 % 11.5 - 14.5 10/28/2016 [facility] RBC 3.45 M/CMM 4.20 - 5.40 10/28/2016 [facility] Hct 30.5 % 36.0 - 48.0 10/28/2016 [facility] Hgb 10.4 g/dL 12.0 - 16.0 10/28/2016 [facility] MCV 88.5 fL 80.0 - 98.0 10/28/2016 [facility] MCH 30.1 pg 27.0 - 31.0 10/28/2016 [facility] Platelet 135 K/CMM 133 - 450 10/28/2016 [facility] WBC 6.4 K/CMM 3.7 - 10.4 10/28/2016 [facility] Chest 2 views DX Chest 2 [...] MD 03/03/16 15:53 FINAL REPORT [facility] ELECTROLYTES Potassium Lvl 5.0 meq/L 3.5 - 5.1 11/24/2015 [facility] CHEM PANEL eGFR 18 mL/min/1.73m2 11/17/2015 [...] should be multiplied by the estimated BMI. [facility] CHEM PANEL Calcium Lvl 7.9 mg/dL 8.5 - 10.5 11/17/2015 [facility] CHEM PANEL CO2 20 meq/L 24 - 32 11/17/2015 [facility] CHEM PANEL Chloride Lvl 113 meq/L 95 - 109 11/17/2015 [facility] CHEM PANEL Potassium Lvl 4.8 meq/L 3.5 - 5.1 11/17/2015 [facility] CHEM PANEL Sodium Lvl 140 meq/L 135 - 145 11/17/2015 [facility] CHEM PANEL Creatinine Lvl 2.45 mg/dL 0.50 - 1.40 11/17/2015 [facility] CHEM PANEL BUN 37 mg/dL 7 - 22 11/17/2015 [facility] CHEM PANEL Glucose Lvl 130 mg/dL 70 - 99 11/17/2015 [facility] CHEM PANEL AGAP 11.8 meq/L 10.0 - 20.0 11/17/2015 [facility] HEMATOLOGY INR 1.15 0.85 - 1.17 11/17/2015 [facility] PT 15.0 s 12.0 - 14.7 11/17/2015 [facility] MCV 89.9 fL 80.0 - 98.0 11/17/2015 [facility] MPV 8.5 fL 7.4 - 10.4 11/17/2015 [facility] MCHC 33.1 g/dL 32.0 - 36.0 11/17/2015 [facility] RDW 14.3 % 11.5 - 14.5 11/17/2015 [facility] MCH 29.7 pg 27.0 - 31.0 11/17/2015 [facility] Platelet 158 K/CMM 133 - 450 11/17/2015 [facility] Hct 27.1 % 36.0 - 48.0 11/17/2015 [facility] RBC 3.01 M/CMM 4.20 - 5.40 11/17/2015 [facility] Hgb 9.0 g/dL 12.0 - 16.0 11/17/2015 [facility] WBC 5.6 K/CMM 3.7 - 10.4 11/17/2015 [facility] PTT 27.1 s 22.9 - 35.8 11/17/2015 [facility] Basophils # 0.1 K/CMM 0.0 - 0.2 11/17/2015 [facility] Segs-Bands # 3.9 K/CMM 1.5 - 8.1 11/17/2015 [facility] Eosinophils # 0.1 K/CMM 0.0 - 0.5 11/17/2015 [facility] Lymphocytes # 1.1 K/CMM 1.0 - 5.5 11/17/2015 [facility] Monocytes # 0.5 K/CMM 0.0 - 0.8 11/17/2015 [facility] Lymphocytes 18.8 % 20.0 - 40.0 11/17/2015 [facility] Basophils 1.4 % 0.0 - 1.0 11/17/2015 [facility] Monocytes 8.0 % 2.0 - 12.0 11/17/2015 [facility] Eosinophils 2.1 % 0.0 - 4.0 11/17/2015 [facility] Segs 69.7 % 45.0 - 75.0 11/17/2015 [facility] Digital Mammo Screening Mc MA Digital Mammo Screening Mc MA - DIGITAL MAMMO SCREENING MC MA BILATERAL DIGITAL SCREENING MAMMOGRAM WITH CAD: 08/19/2015 CLINICAL: Routine. Current study was evaluated with a Computer Aided Detection (CAD) system. Comparison is made to exams dated: 06/26/2014 mammogram, 09/28/2013 mammogram, 09/26/2012 mammogram and 09/17/2011 mamm[address] - [facility]. The tissue of both breasts is heterogeneously [...] is recommended. Paul Vick M.D., cm/penrad:08/27/2015 11:51:17 Operations Planner: Anna AMARO)(Kyle), [facility] This exam was dictated and interpreted by [id number] for Melody. letter sent: Normal exam Mammogram BI-RADS: 2 Benign 08/19/2015 - - Read by: Brennen Lazo MD Dictated Date/time: 08/27/15 11:51 Electronically Signed by: Brennen Lazo MD 08/27/15 11:51 FINAL REPORT [facility] CHEM PANEL Glucose Lvl 100 mg/dL 70 - 99 03/24/2015 [facility] ELECTROLYTES Potassium Lvl 5.4 meq/L 3.5 - 5.1 03/24/2015 [facility] CHEM PANEL BUN 50 mg/dL 7 - 03/17/2015 [facility] CHEM PANEL eGFR 13 mL/min/1.73m2 03/17/2015 [...] should be multiplied by the estimated BMI. [facility] CHEM PANEL Creatinine Lvl 3.3 mg/dL 0.5 - 1.4 03/17/2015 [facility] CHEM PANEL Sodium Lvl 140 meq/L 135 - 145 03/17/2015 [facility] CHEM PANEL Glucose Lvl 106 mg/dL 70 - 99 03/17/2015 [facility] CHEM PANEL Potassium Lvl 4.7 meq/L 3.5 - 5.1 03/17/2015 [facility] CHEM PANEL Chloride Lvl 109 meq/L 95 - 109 03/17/2015 [facility] CHEM PANEL Calcium Lvl 9.2 mg/dL 8.5 - 10.5 03/17/2015 [facility] CHEM PANEL CO2 20 meq/L 24 - 32 03/17/2015 [facility] CHEM PANEL AGAP 15.7 meq/L 10.0 - 20.0 03/17/2015 [facility] HEMATOLOGY PTT 34.3 s 22.9 - 35.8 03/17/2015 [facility] HEMATOLOGY INR 1.16 0.85 - 1.17 03/17/2015 [facility] HEMATOLOGY PT 14.9 s 12.0 - 14.7 03/17/2015 [facility] HEMATOLOGY MPV 9.0 fL 7.4 - 10.4 03/17/2015 [facility] HEMATOLOGY Platelet 158 K/CMM 133 - 450 03/17/2015 [facility] HEMATOLOGY Hct 27.7 % 36.0 - 48.0 03/17/2015 [facility] HEMATOLOGY MCV 87.9 fL 80.0 - 98.0 03/17/2015 [facility] HEMATOLOGY RBC 3.15 M/CMM 4.20 - 5.40 03/17/2015 [facility] Hgb 9.3 g/dL 12.0 - 16.0 03/17/2015 [facility] HEMATOLOGY MCHC 33.7 g/dL 32.0 - 36.0 03/17/2015 [facility] HEMATOLOGY RDW 14.0 % 11.5 - 14.5 03/17/2015 [facility] MCH 29.6 pg 27.0 - 31.0 03/17/2015 [facility] HEMATOLOGY WBC 5.4 K/CMM 3.7 - 10.4 03/17/2015 [facility] HEMATOLOGY Lymphocytes # 1.2 K/CMM 1.0 - 5.5 03/17/2015 [facility] HEMATOLOGY Segs-Bands # 3.4 K/CMM 1.5 - 8.1 03/17/2015 [facility] HEMATOLOGY Basophils 1.4 % 0.0 - 1.0 03/17/2015 [facility] HEMATOLOGY Eosinophils 3.0 % 0.0 - 4.0 03/17/2015 [facility] HEMATOLOGY Basophils # 0.1 K/CMM 0.0 - 0.2 03/17/2015 [facility] HEMATOLOGY Monocytes # 0.6 K/CMM 0.0 - 0.8 03/17/2015 [facility] HEMATOLOGY Eosinophils # 0.2 K/CMM 0.0 - 0.5 03/17/2015 [facility] HEMATOLOGY Monocytes 10.9 % 2.0 - 12.0 03/17/2015 [facility] HEMATOLOGY Segs 62.7 % 45.0 - 75.0 03/17/2015 [facility] HEMATOLOGY Lymphocytes 22.0 % 20.0 - 40.0 03/17/2015 [facility] Chest 2 views DX Chest 2 [...] Atherosclerosis. Coding: Chest 2 views CPT Code: 23622 SL: 13 Avni Vazquez M.D. 03/17/2015 - - Read by: Avni Vazquez MD Dictated Date/time: 03/17/15 15:34 Electronically Signed by: Avni Vazquez MD 03/17/15 15:36 FINAL REPORT [facility] Vital Signs Vital Sign Value Date [...] Castillo Souza Systolic (mm Hg) 136 11/04/2016 [facility] Diastolic (mm Hg) 40 11/04/2016 [facility] Systolic (mm Hg) 145 11/04/2016 [facility] Diastolic (mm Hg) 37 11/04/2016 [facility] Systolic (mm Hg) 159 11/04/2016 [facility] Diastolic (mm Hg) 46 11/04/2016 [facility] Respitory Rate 14 11/04/2016 [facility] Respitory Rate 17 11/04/2016 [facility] Respitory Rate 17 11/04/2016 [facility] Heart Rate 72 11/04/2016 [facility] Temperature Oral (F) 97.5 F 10/28/2016 [facility] Heart Rate 54 10/28/2016 [facility] Height 162.56 cm 10/28/2016 [facility] Weight 59.545 10/28/2016 [facility] BMI Calculated 22.53 10/28/2016 [facility] Weight 129 09/10/2016 [facility] Height [...] Castillo Souza Systolic (mm Hg) 124 11/24/2015 [facility] Diastolic (mm Hg) 54 11/24/2015 [facility] Systolic (mm Hg) 121 11/24/2015 [facility] Diastolic (mm Hg) 39 11/24/2015 [facility] Systolic (mm Hg) 114 11/24/2015 [facility] Diastolic (mm Hg) 31 11/24/2015 [facility] Respitory Rate 15 11/24/2015 [facility] Respitory Rate 16 11/24/2015 [facility] Respitory Rate 14 11/24/2015 [facility] Temperature Oral (F) 97.9 F 11/17/2015 [facility] Heart Rate 61 11/17/2015 [facility] BMI Calculated 21.87 11/17/2015 [facility] Weight 57.784 11/17/2015 [facility] Height 162.56 cm 11/17/2015 [facility] Systolic (mm Hg) 142 03/24/2015 [facility] Diastolic (mm Hg) 49 03/24/2015 [facility] Systolic (mm Hg) 133 03/24/2015 [facility] Diastolic (mm Hg) 46 03/24/2015 [facility] Systolic (mm Hg) 142 03/24/2015 [facility] Diastolic (mm Hg) 45 03/24/2015 [facility] Respitory Rate 15 03/24/2015 [facility] Respitory Rate 19 03/24/2015 [facility] Respitory Rate 15 03/24/2015 [facility] Heart Rate 65 03/17/2015 [facility] Temperature Oral (F) 98.4 F 03/17/2015 [facility] Height 162.56 cm 03/17/2015 [facility] BMI Calculated 22.71 03/17/2015 [facility] Weight 60 03/17/2015 [facility] Weight 140 12/12/2014 [facility] Height 64 [...] Status Source Martin Souza MD 6m fu [id number] 12/12/2013 12/12/2013 Castillo Souza MD 6m fu [id number] 12/12/2013 12/12/2013 Castillo Souza MD 6m fu [id number] 12/12/2013 12/12/2013 Castillo Souza MD 6m fu [id number] 12/12/2013 12/12/2013 Castillo Souza MD 6m fu [id number] 12/12/2013 12/12/2013 Castillo Souza MD 6m fu [id number] 12/12/2013 12/12/2013 Castillo Souza MD 6m fu [id number] 12/12/2013 12/12/2013 Castillo Souza MD 6m fu [id number] 12/12/2013 12/12/2013 Castillo Souza MD 6m fu [id number] 12/12/2013 12/12/2013 Castillo Souza MD 6m fu [id number] 12/12/2013 12/12/2013 Castillo Souza MD 6m fu [id number] 12/12/2013 12/12/2013 Castillo Souza MD 6m fu [id number] 12/12/2013 12/12/2013 Castillo Souza MD 6m fu [id number] 12/12/2013 12/12/2013 Castillo Souza MD 6m fu [id number] 06/13/2014 06/13/2014 Castillo Souza MD 6m fu [id number] 06/13/2014 06/13/2014 Castillo Souza MD 6m fu [id number] 06/13/2014 06/13/2014 Castillo Souza MD 6m fu [id number] 06/13/2014 06/13/2014 Castillo Souza MD 6m fu [id number] 06/13/2014 06/13/2014 Castillo Souza MD 6m fu [id number] 06/13/2014 06/13/2014 Castillo Souza MD 6m fu [id number] 06/13/2014 06/13/2014 Castillo Souza MD 6m fu [id number] 06/13/2014 06/13/2014 Castillo Souza MD 6m fu [id number] 06/13/2014 06/13/2014 Castillo Souza MD 6m fu [id number] 06/13/2014 06/13/2014 Castillo Souza MD 6m fu [id number] 06/13/2014 06/13/2014 Castillo Souza MD 6m fu [id number] 06/13/2014 06/13/2014 Castillo Souza MD [facility] [id number] 12/06/2014 12/06/2014 Castillo Souza MD [facility] [id number] 12/06/2014 12/06/2014 Castillo Souza MD [facility] [id number] 12/06/2014 12/06/2014 Castillo Souza MD [facility] [id number] 12/06/2014 12/06/2014 Castillo Souza MD [facility] [id number] 12/06/2014 12/06/2014 Castillo Souza MD [facility] [id number] 12/06/2014 12/06/2014 Castillo Souza MD [facility] [id number] 12/06/2014 12/06/2014 Castillo Souza MD [facility] [id number] 12/06/2014 12/06/2014 Castillo Souza MD [facility] [id number] 12/06/2014 12/06/2014 Castillo Souza MD [facility] [id number] 12/06/2014 12/06/2014 Castillo Souza MD [facility] [id number] 12/06/2014 12/06/2014 Castillo Souza MD 6m fu [id number] 12/12/2014 12/12/2014 Castillo Souza MD 6m fu [id number] 12/12/2014 12/12/2014 Castillo Souza MD 6m fu [id number] 12/12/2014 12/12/2014 Castillo Souza MD fu [id number] 12/12/2014 12/12/2014 Castillo Souza MD 6m fu [id number] 12/12/2014 12/12/2014 Castillo Souza MD fu [id number] 12/12/2014 12/12/2014 Castillo Souza MD [facility] [id number] 12/12/2014 12/12/2014 Castillo Souza MD [facility] [id number] 12/12/2014 12/12/2014 Castillo Souza MD [facility] [id number] 12/12/2014 12/12/2014 Castillo Souza MD fu [id number] 12/12/2014 12/12/2014 Castillo Souza MD [facility] [id number] 12/12/2014 12/12/2014 Castillo Souza MD MRI [id number] 12/18/2014 12/18/2014 Castillo Souza MD MRI [id number] 12/18/2014 12/18/2014 Castillo Souza MD MRI [id number] 12/18/2014 12/18/2014 Castillo Souza MD MRI [id number] 12/18/2014 12/18/2014 Castillo Souza MD MRI [id number] 12/18/2014 12/18/2014 Castillo Souza MD MRI [id number] 12/18/2014 12/18/2014 Castillo Souza MD MRI [id number] 12/18/2014 12/18/2014 Castillo Souza MD MRI [id number] 12/18/2014 12/18/2014 Castillo Souza MD MRI [id number] 12/18/2014 12/18/2014 Castillo Souza MD MRI [id number] 12/18/2014 12/18/2014 Castillo Souza MD MRI [id number] 12/18/2014 12/18/2014 Castillo Souza MD [facility] [id number] 12/20/2014 12/20/2014 Castillo Souza MD [facility] [id number] 12/20/2014 12/20/2014 Castillo Souza MD [facility] [id number] 12/20/2014 12/20/2014 MD Catal[facility] [id number] 12/20/2014 12/20/2014 MD Catalino Pitts [id number] 12/20/2014 12/20/2014 MD Catalino Pitts [id number] 12/20/2014 12/20/2014 MD Catalino Pitts [id number] 12/20/2014 12/20/2014 MD Catalino Pitts [id number] 12/20/2014 12/20/2014 MD Catalino Pitts [id number] 12/20/2014 12/20/2014 MD Catalino Pitts [id number] 12/20/2014 12/20/2014 MD Catalino Pitts [id number] 12/20/2014 12/20/2014 MD Catalino Pitts [id number] 12/31/2014 12/31/2014 MD Catalino Pitts [id number] 12/31/2014 12/31/2014 MD Catalino Pitts [id number] 12/31/2014 12/31/2014 Castillo Souza MD [facility] [id number] 12/31/2014 12/31/2014 MD Tao [facility]ia [id number] 12/31/2014 12/31/2014 Castillo Souza MD [facility] [id number] 12/31/2014 12/31/2014 Castillo Souza MD [facility] [id number] 12/31/2014 12/31/2014 Castillo Souza MD [facility] [id number] 12/31/2014 12/31/2014 Castillo Souza MD [facility] [id number] 12/31/2014 12/31/2014 Castillo Souza MD [facility] [id number] 12/31/2014 12/31/2014 Castillo Souza MD [facility] [id number] 12/31/2014 12/31/2014 Castillo Souza MD Appointment [id number] 01/23/2015 01/23/2015 Castillo Souza MD [facility] [id number] 01/23/2015 01/23/2015 Castillo Souza MD Appointment [id number] 01/23/2015 01/23/2015 Castillo Souza MD Appointment [id number] 01/23/2015 01/23/2015 Castillo Souza MD Appointment [id number] 01/23/2015 01/23/2015 Castillo Souza MD Appointment [id number] 01/23/2015 01/23/2015 Castillo Souza MD Appointment [id number] 01/23/2015 01/23/2015 Castillo Souza MD Appointment [id number] 01/23/2015 01/23/2015 Castillo Souza MD Appointment [id number] 01/23/2015 01/23/2015 Castillo Souza [facility] OBS Day Surgery [id number] Dangelo Yazan 03/24/2015 03/24/2015 [facility] Martin Souza MD 6m fu [id number] 06/13/2015 06/13/2015 Castillo Souza MD 6m fu [id number] 06/13/2015 06/13/2015 Castillo Souza MD 6m fu [id number] 06/13/2015 06/13/2015 Castillo Souza MD 6m fu [id number] 06/13/2015 06/13/2015 Castillo Souza MD 6m [id number] 06/13/2015 06/13/2015 Castillo Souza MD [facility] [id number] 06/13/2015 06/13/2015 Castillo Souza MD 6m [id number] 06/13/2015 06/13/2015 Castillo Souza MD [facility] [id number] 06/13/2015 06/13/2015 Castillo Souza MD [facility] [id number] 06/13/2015 06/13/2015 Castillo Souza MD [facility] [id number] 06/17/2015 06/17/2015 Castillo Souza MD [facility] [id number] 06/17/2015 06/17/2015 Castillo Souza MD [facility] [id number] 06/17/2015 06/17/2015 Castillo Souza MD [facility] [id number] 06/17/2015 06/17/2015 Castillo Souza MD [facility] [id number] 06/17/2015 06/17/2015 Castillo Souza MD [facility] [id number] 06/17/2015 06/17/2015 Castillo Souza MD [facility] [id number] 06/17/2015 06/17/2015 Castillo Souza MD [facility] [id number] 06/17/2015 06/17/2015 Castillo Souza MD [facility] [id number] 06/17/2015 06/17/2015 Castillo Souza MD [facility] [id number] 07/11/2015 07/11/2015 Castillo Souza MD DEXA [id number] 07/11/2015 07/11/2015 Castillo Souza MD DEXA [id number] 07/11/2015 07/11/2015 Castillo Souza MD DEXA [id number] 07/11/2015 07/11/2015 Castillo Souza MD DEXA [id number] 07/11/2015 07/11/2015 Castillo Souza MD DEXA [id number] 07/11/2015 07/11/2015 Castillo Souza MD DEXA [id number] 07/11/2015 07/11/2015 Castillo Souza MD DEXA [id number] 07/11/2015 07/11/2015 Castillo Souza MD DEXA [id number] 07/11/2015 07/11/2015 Castillo Souza [facility] [id number] Rodney Shipman 08/19/2015 08/20/2015 [facility] OBS Day Surgery [id number] Dangelo Hand 11/24/2015 11/24/2015 [facility] Martin Souza MD Lab results [id number] 02/04/2016 02/04/2016 Castillo Souza MD Lab results [id number] 02/04/2016 02/04/2016 Castillo Souza MD Lab results [id number] 02/04/2016 02/04/2016 Castillo Souza MD Lab results [id number] 02/04/2016 02/04/2016 Castillo Souza MD Lab results [id number] 02/04/2016 02/04/2016 Castillo Souza MD Lab results [id number] 02/04/2016 02/04/2016 Castillo Souza MD Lab results [id number] 02/04/2016 02/04/2016 Castillo Souza MD Lab results [id number] 02/04/2016 02/04/2016 Castillo Souza MD Update [id number] 02/09/2016 02/09/2016 Castillo Souza MD Update [id number] 02/09/2016 02/09/2016 Castillo Souza MD Update [id number] 02/09/2016 02/09/2016 Castillo Souza MD Update [id number] 02/09/2016 02/09/2016 Castillo Souza MD Update [id number] 02/09/2016 02/09/2016 Castillo Souza MD Update [id number] 02/09/2016 02/09/2016 Castillo Souza MD Update [id number] 02/09/2016 02/09/2016 Castillo Souza MD Update [id number] 02/25/2016 02/25/2016 Castillo Souza MD Update [id number] 02/25/2016 02/25/2016 Castillo Souza MD Update [id number] 02/25/2016 02/25/2016 Castillo Souza MD Update [id number] 02/25/2016 02/25/2016 Castillo Souza MD Update [id number] 02/25/2016 02/25/2016 Castillo Souza MD Update [id number] 02/25/2016 02/25/2016 Castillo Souza [facility] Outpatient [facility] [place] [id number] Rodney Shipman 03/03/2016 03/04/2016 [facility] Martin Souza MD Unknown [id number] 03/11/2016 03/11/2016 Castillo Souza MD Unknown [id number] 03/11/2016 03/11/2016 Castillo Souza MD Unknown [id number] 03/11/2016 03/11/2016 Castillo Souza MD Unknown [id number] 03/11/2016 03/11/2016 Castillo Souza MD Unknown [id number] 03/11/2016 03/11/2016 Castillo Souza MD [facility] [id number] 05/06/2016 05/06/2016 Castillo Souza MD [facility] [id number] 05/06/2016 05/06/2016 Castillo Souza MD [facility] [id number] 05/06/2016 05/06/2016 Castillo Souza MD [facility] [id number] 05/06/2016 05/06/2016 Castillo Souza MD [facility] [id number] 09/10/2016 09/10/2016 Castillo Souza MD Labs [id number] 09/10/2016 09/10/2016 Castillo Souza MD Labs [id number] 09/10/2016 09/10/2016 Castillo Souza MD Labs [id number] 09/10/2016 09/10/2016 Castillo Souza MD Vitamin D [id number] 09/10/2016 09/10/2016 Castillo Souza MD Vitamin D [id number] 09/10/2016 09/10/2016 Castillo Souza MD Vitamin D [id number] 09/10/2016 09/10/2016 Castillo Souza [facility] Day Surgery [id number] Dangelo Hand 11/04/2016 11/04/2016 [facility] [id number] Rodney Shipman 07/16/2017 07/17/2017 [facility] Procedures Procedure Code Date Perfomer Comments Source Abdominal hysterectomy [id number] [facility] Appendectomy [id number] [facility] Cholecystectomy [id number] [facility] Colonoscopy [id number] [facility] Excision of ganglion cyst [id number] [facility] Abdominal hysterectomy [id number] [facility] [place] Appendectomy [id number] [facility] [place] Cholecyst[facility] [id number] [facility] [place] [id number] of [id number] Abdominal hysterectomy [id number] [facility] Appendectomy [id number] [facility] Cholecystectomy [id number] [facility] Colonoscopy [id number] [facility] Excision of ganglion cyst [id number] [facility]
--- OUTSIDE RECORDS SUMMARY | 2018-11-12 15:32 | XMS REPORT ---
Author Author Martin Souza Organization [employer] Address Unknown Phone Unavailable Care Team Providers Care Fire Prevention Research Engineer Name Role Phone Martin Souza CP Unavailable Allergies No Known Allergies Problems Problem Type Condition Code Onset Dates Condition Status Problem Muscle spasm M62.838 Active Problem ESRD (end stage renal disease) N18.6 Active Problem Osteopenia of multiple sites M85.89 Active Problem Other joint terminal attack controller (current) drug therapy Z79.899 Active Problem Rheumatoid arthritis of multiple sites without rheumatoid factor M06.09 Active Problem Vitamin D deficiency E55.9 Active Problem Osteoporosis M81.0 Active Medications No Known Medications Results No Known Results Summary Purpose [employer] Submission
[2018-11-12 16:19] LABS: BASOPHILS % 0.6 % (0.0-1.0); EOSINOPHILS # (AUTO) 0.4 (0.0-0.4); HEMATOCRIT 40.8 % (34.2-44.1); HEMOGLOBIN 12.7 g/dL (12.0-16.0); LYMPHOCYTES # (AUTO) 1.2 (1.0-3.2); LYMPHOCYTES % 17.7 % (18.0-39.1); MEAN CORPUSCULAR HEMOGLOBIN 29.3 pg (28-32); MEAN CORPUSCULAR HGB CONC 31.1 g/dL (31-35); MEAN CORPUSCULAR VOLUME 94.2 fL (81-99); MONOCYTES # (AUTO) 0.6 (0.2-0.8); MONOCYTES % 8.6 % (4.4-11.3); NEUTROPHILS # (AUTO) 4.7 (2.1-6.9); PLATELET COUNT 178 x10e3/uL (140-360); RED BLOOD COUNT 4.33 x10e6/uL (3.6-5.1); RED CELL DISTRIBUTION WIDTH 17.7 % (11.7-14.4)
[2018-11-12 16:37] LABS: ALBUMIN 2.3 g/dL (3.5-5.0); ALBUMIN/GLOBULIN RATIO 0.5 (0.8-2.0); CALCIUM 7.9 mg/dL (8.4-10.2); CREATININE, SERUM 5.41 mg/dL (0.57-1.11)
[2018-11-12] MEDS ORDERED: SENSIPAR30 MG PO (17:21)
[2018-11-12] MEDS ORDERED: RENVELA0.8 GM (17:21)
[2018-11-12] MEDS ORDERED: ONDANSETRON HCL INJ 2MG/ML 2ML 2 MG/ML VIAL IV PRN (17:45)
[2018-11-12] MEDS ORDERED: SODIUM CHLORIDE FLUSH 10 ML SYR INJ PRN (17:45)
[2018-11-12] MEDS ORDERED: VANCOMYCIN 1GM/NS 250 ML 250 ML IV ONE (18:00)
[2018-11-12] MEDS: PIPERACILLIN/TAZO 2.25 GM 50 ML IV SCH (18:15)
--- NOTE | 2018-11-12 20:00 | NUR ---
Pt admitted to room 287 via stretcher. Pt alert to name, place, and reason for hospital visit. Rt foot redness and moderate swelling. Denies pain at this time. Skin warm and intact. 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 ROM x4 extremities. Bowel sounds active x4 quads, last BM 11/11/2018. 20g IV right AC, flushed 10ml NS. Glasses affixed to face. Denies dysuria, urine yellow. Oriented to room. Call galarza within reach. Bed low and locked. Will continue to monitor.
[2018-11-12 20:11] VITALS: BP 183/70
[2018-11-12 20:20] VITALS: BP 183/70
[2018-11-12 20:25] VITALS: BP 183/70
--- NOTE | 2018-11-12 20:40 | NUR ---
Spoke with Dr. Turner regarding peritoneal dialysis. Ordered to call [facility] to start dialysis. Informed [facility] order. Will start dialysis tonight.
--- NOTE | 2018-11-12 22:00 | NUR ---
[facility] nurse started Automated Peritoneal Dialysis (APD). Informed dialysis will dialyze for approximately 11 hours. [facility] nurse will arrive in am to disconnect tubing and stop APD.
[2018-11-13] VITALS (8 sets, daily range): BP systolic 135–176; BP diastolic 63–93
[2018-11-13 06:14] LABS: BASOPHILS % 0.5 % (0.0-1.0); EOSINOPHILS # (AUTO) 0.4 (0.0-0.4); EOSINOPHILS % 6.1 % (0.0-6.0); HEMATOCRIT 38.5 % (34.2-44.1); HEMOGLOBIN 11.8 g/dL (12.0-16.0); LYMPHOCYTES # (AUTO) 1.2 (1.0-3.2); LYMPHOCYTES % 19.9 % (18.0-39.1); MEAN CORPUSCULAR HEMOGLOBIN 28.9 pg (28-32); MEAN CORPUSCULAR HGB CONC 30.6 g/dL (31-35); MEAN CORPUSCULAR VOLUME 94.1 fL (81-99); MONOCYTES # (AUTO) 0.5 (0.2-0.8); MONOCYTES % 9.3 % (4.4-11.3); NEUTROPHILS # (AUTO) 3.7 (2.1-6.9); NEUTROPHILS % 63.9 % (38.7-80.0); PLATELET COUNT 144 x10e3/uL (140-360); RED BLOOD COUNT 4.09 x10e6/uL (3.6-5.1); RED CELL DISTRIBUTION WIDTH 17.5 % (11.7-14.4)
[2018-11-13 06:40] LABS: ANION GAP 11.9 mmol/L (8-16); CALCIUM 7.9 mg/dL (8.4-10.2); CREATININE, SERUM 5.3 mg/dL (0.57-1.11); POTASSIUM 3.9 mmol/L (3.5-5.1)
[2018-11-13] MEDS ORDERED: SODIUM CHLORIDE 0.9% 250ML 250 ML ONE (06:53)
[2018-11-13] MEDS: PIPERACILLIN/TAZO 2.25 GM 50 ML IV SCH ×2 (07:00→17:28)
--- NOTE | 2018-11-13 13:10 | NUR ---
CM SPOKE TO PATIENT AT BEDSIDE REGARDING IMM LETTER. IMM LETTER GIVEN WITH EXPLANATION BASED ON ANTICIPATED DISCHARGE DATE. ORIGINAL SIGNED AND PLACED IN CHART; COPY OF ORIGINAL DOCUMENT GIVEN TO PATIENT AT BEDSIDE AND PLACED IN CARE TRANSITION FOLDER. CM CONTACT INFORMATION GIVEN TO PATIENT FOR ANY NEEDS OR CONCERNS. PATIENT WITH NO FURTHER QUESTIONS.
--- NOTE | 2018-11-13 16:26 | NUR ---
CALL PLACED OUT TO DR. ROSADO REGARDING PATIENT'S BP 160/74- AWAITING CALLBACK.
[2018-11-13] MEDS ORDERED: NON-FORMULARY MEDICATION (Fexofenadine Hcl (Allegra Allergy) 180 MG) PO PRN (17:30)
--- NOTE | 2018-11-13 19:40 | NUR ---
PATIENT IS IN STABLE CONDITION WITH NO S/S OF RESPIRATORY DISTRESS. NO PAIN VOICED. PATIENT IS TO START PERITONEAL DIALYSIS THIS EVENING. BED ALARM ON. CALL LIGHT IS WITHIN REACH, PATIENT INSTRUCTED TO CALL FOR ASSISTANCE NEEDED. BEDSIDE REPORT GIVEN TO ONCOMING NURSE.
--- NOTE | 2018-11-13 19:42 | NUR ---
PT IS RESTING IN BED GETTING HER PERITONEAL DIALYSIS SET UP. NO RESPIRATORY DISTRESS NOTED. BED IN THE LOWEST POSITION, LOCKED, AND CALL LIGHT WITHIN REACH. WILL CONTINUE TO MONITOR.
--- NOTE | 2018-11-13 19:48 | Diagnostic Imaging Report ---
RIGHT FOOT - 3 Images HISTORY: Cellulitis COMPARISON: None available. FINDINGS: Bones: No acute displaced fracture. No aggressive osseous lesion. Joints: Mild scattered degenerative changes, most notably the first metatarsophalangeal joint. Soft tissues: Nonspecific curvilinear calcification along the lateral aspect of the third metatarsophalangeal joint, likely the skull of remote trauma. Mild nonspecific soft tissue swelling. IMPRESSION: 1. Nonspecific soft tissue swelling. 2. No radiographic evidence of osteomyelitis. Signed by: Dr. Cameron Sykes D.O., M.M.M. on 11/13/2018 7:44 PM
[2018-11-13] MEDS: ASPIRIN 81 MG CHEW TAB PO SCH (21:27)
[2018-11-13] MEDS: ATORVASTATIN 10 MG TAB PO SCH (21:28)
[2018-11-13] MEDS: TERAZOSIN HCL 1 MG CAP PO SCH (21:28)
[2018-11-13] MEDS: METOPROLOL SUCCINATE 50 MG TAB XL PO SCH (21:28)
[2018-11-14] VITALS (8 sets, daily range): BP systolic 128–164; BP diastolic 59–75
--- NOTE | 2018-11-14 03:34 | Consultation ---
DATE OF CONSULTATION: 11/13/2018 HISTORY OF PRESENT ILLNESS: An 83-year-old female, well-known to our Nephrology Service. Multiple comorbidities including end-stage renal disease, secondary hyperparathyroidism, hyperlipidemia, hypothyroidism, hypertension, history of congestive heart failure, coronary artery disease. Renal consulted for management of underlying kidney failure. She came in with cellulitis infection of the toe. FAMILY HISTORY: Significant for hypertension. ALLERGIES: TO LANSOPRAZOLE. CURRENT MEDICATIONS: Please see MAR for details. She is on ondansetron p.r.n., Hytrin 2 mg at bedtime, Nubia p.r.n., levothyroxine 75 mcg daily, metoprolol 50 mg at bedtime, atorvastatin 20 mg daily, cinacalcet 30 mg daily, aspirin 81 mg, two. She is also on piperacillin-tazobactam. LABORATORY DATA: White count 6.96, hemoglobin 12.7. Potassium 4, bicarb 29, and creatinine 5.4. PHYSICAL EXAMINATION: GENERAL: Awake, alert, lying supine, in no apparent distress. VITAL SIGNS: Blood pressure 176/78, pulse rate 86, afebrile, respiratory rate 17, and oxygen saturation 98% on room air. HEAD AND NECK: Cornea clear. Oral mucosa moist. Neck veins flat. LUNGS: Bilaterally clear. No rales. HEART: S1, S2 audible. ABDOMEN: Otherwise soft, nontender. PD catheter exit site satisfactory, no sign of infection. Nontender exam. EXTREMITIES: Lower extremity examination shows no edema. PLAN: Plan on initiating CCPD. We will continue home prescription. We will follow the patient's chemistries, kidney function, urine output, blood pressure, anemia, and vital signs reviewed. Please see orders. MD AIDA Mccullough/MODL /[id number]
[2018-11-14] MEDS: PIPERACILLIN/TAZO 2.25 GM 50 ML IV SCH ×2 (05:24→17:06)
[2018-11-14] MEDS: LEVOTHYROXINE SODIUM 75 MCG TAB PO SCH (08:32)
[2018-11-14] MEDS: PANTOPRAZOLE SOD 40 MG TABEC PO SCH (08:32)
[2018-11-14] MEDS: CINACALCET 30 MG TAB PO SCH (08:32)
--- NOTE | 2018-11-14 19:19 | NUR ---
PT IS RESTING IN BED RECEIVING HER PERITONEAL DIALYSIS. NO RESPIRATORY DISTRESS NOTED. BED IN THE LOWEST POSITION, LOCKED, AND CALL LIGHT WITHIN REACH. WILL CONTINUE TO MONITOR.
--- NOTE | 2018-11-14 19:20 | NUR ---
PATIENT IS IN STABLE CONDITION WITH NO S/S OF RESPIRATORY DISTRESS. NO PAIN VOICED. PATIENT HAS BEGUN PERITONEAL DIALYSIS. CALL LIGHT IS WITHIN REACH, PATIENT INSTRUCTED TO CALL FOR ASSISTANCE NEEDED. BEDSIDE REPORT GIVEN TO ONCOMING NURSE.
[2018-11-14] MEDS: ASPIRIN 81 MG CHEW TAB PO SCH (21:01)
[2018-11-14] MEDS: TERAZOSIN HCL 1 MG CAP PO SCH (21:02)
[2018-11-14] MEDS: METOPROLOL SUCCINATE 50 MG TAB XL PO SCH (21:02)
[2018-11-14] MEDS: ATORVASTATIN 10 MG TAB PO SCH (21:02)
[2018-11-15] VITALS (7 sets, daily range): BP systolic 117–145; BP diastolic 57–67
[2018-11-15] MEDS: PIPERACILLIN/TAZO 2.25 GM 50 ML IV SCH ×2 (05:40→17:40)
[2018-11-15] MEDS: CINACALCET 30 MG TAB PO SCH (08:49)
[2018-11-15] MEDS: PANTOPRAZOLE SOD 40 MG TABEC PO SCH (08:49)
[2018-11-15] MEDS: LEVOTHYROXINE SODIUM 75 MCG TAB PO SCH (08:49)
--- NOTE | 2018-11-15 09:00 | NUR ---
Pt was disconnected from PD a this time. 1.1L were removed.
--- NOTE | 2018-11-15 14:55 | NUR ---
PT IS FROM HOME WITH Timur Ling [phone]
--- NOTE | 2018-11-15 19:12 | NUR ---
Received change of shift report from AM nurse. Rounds completed.
[2018-11-15] MEDS: TERAZOSIN HCL 1 MG CAP PO SCH (20:58)
[2018-11-15] MEDS: ASPIRIN 81 MG CHEW TAB PO SCH (20:58)
[2018-11-15] MEDS: ATORVASTATIN 10 MG TAB PO SCH (20:59)
[2018-11-15] MEDS: METOPROLOL SUCCINATE 50 MG TAB XL PO SCH (21:00)
--- NOTE | 2018-11-15 23:48 | NUR ---
Dialysis nurse on the floor to dialyze patient.
[2018-11-16] VITALS: BP 133/58
[2018-11-16 04:30] VITALS: BP 122/58
--- NOTE | 2018-11-16 05:04 | NUR ---
Patient resting quitly at this time. Dialysis continue. Pt with no c/o at this time.
[2018-11-16] MEDS: PIPERACILLIN/TAZO 2.25 GM 50 ML IV SCH (05:15)
[2018-11-16 07:55] VITALS: BP 138/70
[2018-11-16 08:05] VITALS: BP 133/70
[2018-11-16] MEDS: CINACALCET 30 MG TAB PO SCH (08:18)
[2018-11-16] MEDS: LEVOTHYROXINE SODIUM 75 MCG TAB PO SCH (08:18)
[2018-11-16] MEDS: PANTOPRAZOLE SOD 40 MG TABEC PO SCH (08:18)
[2018-11-16] MEDS ORDERED: AUGMENTIN 500-1 EACH PO (10:41)
--- NOTE | 2018-11-16 10:50 | NUR ---
Pt discharged at this time. Pt is able to verbalize needs. Denies any pain at this time.
--- NOTE | 2018-11-17 03:24 | Discharge Summary ---
DISCHARGE DIAGNOSES: 1. Left foot cellulitis, now resolving. 2. End-stage renal disease, on peritoneal dialysis. 3. Hypertension, controlled. HOSPITAL COURSE: Ms. Ling is a very pleasant 83-year-old lady well known to me from the office with past medical history significant for hypertension, end-stage renal disease, on peritoneal dialysis. She had a rather fast onset of increased erythema and pain involving the right 5th toe, later on spreading to the lateral aspect and dorsum of the right foot. There was no fever, no chills. She was seen at a 24-hour clinic. She was given oral antibiotic, without much improvement. As her symptoms were not improving, she came to the emergency department for evaluation and she was admitted with a diagnosis of right foot cellulitis. She was started on Zosyn, adjusted for renal function and a single dose of vancomycin. A consult was requested with Renal to continue her peritoneal dialysis. The patient did not have an abnormal WBC count and had no fever during the admission, however, there were significant changes localized at the right foot which have steadily improved after the initiation of IV antibiotics. She is being discharged in a stable condition. She was given a prescription for Augmentin 500 mg once daily for 10 days and she is to follow up in the office 10 days after discharge. MD CORTNEY Rush/ALISA /[id number]
== END 2018-11-16 10:59 | disposition home or self-care (01) | DRG 602 ==
LOC: ER 15:27 → ERHOLD 17:35 → MED/SURG3 19:42
PROVIDERS: ADMIT Internal Medicine; ATTEND Internal Medicine
DX: L03.115 Cellulitis of right lower limb (principal); N18.6 End stage renal disease; N25.81 Secondary hyperparathyroidism of renal origin; I13.2 Hypertensive heart and chronic kidney disease with heart failure and with stage 5 chronic kidney disease, or end stage renal disease; Z99.2 Dependence on renal dialysis; E03.9 Hypothyroidism, unspecified; I50.9 Heart failure, unspecified; I25.10 Atherosclerotic heart disease of native coronary artery without angina pectoris
CPT/HCPCS: 36415; 80048; 80053; 84550; 85025; 87040; 90945; 99284; J2405; J2543; J3370; J7050

== ENCOUNTER 2019-10-05 10:03 | Emergency (ER) | payer MEDICARE ==
[~2019-10-05] VITALS: Ht 162.6 cm; Wt 51.3 kg
[~2019-10-05 10:03] MED LIST changes: +AUGMENTIN 500-1 EACH PO; +RENVELA0.8 GM; +SENSIPAR30 MG PO
[2019-10-05] MEDS ORDERED: ASPIRIN 81 MG CHEW TAB PO ONE (10:30)
--- NOTE | 2019-10-05 11:01 | Diagnostic Imaging Report ---
Chest, 1 view, 10/05/2019. History: Slurred speech, headache. Comparison: 09/22/2019. Findings: The cardiomediastinal silhouette and pulmonary vasculature are within normal limits for a portable exam. There is calcification of the aortic arch. There is no focal consolidation or pleural effusion. There are no acute osseous or soft tissue abnormalities. Impression: No acute cardiopulmonary abnormality. Signed by: Loy Millan on 10/05/2019 10:58 AM
--- NOTE | 2019-10-05 11:04 | Diagnostic Imaging Report ---
EXAMINATION: Head CT HISTORY: Headache, standard speech, TIA COMPARISON: Brain MRI and head CT of 09/22/2019 TECHNIQUE: Multidetector axial images were obtained without contrast from the foramen magnum to the vertex . The images were reconstructed using brain and bone algorithms. Thin section brain images were reformatted into coronal and sagittal planes. Image quality: Motion/streaking artifact limits the evaluation of the skull base and posterior cranial fossa. Dose modulation, iterative reconstruction, and/or weight based adjustment of the mA/kV was utilized to reduce the radiation dose to as low as reasonably achievable. FINDINGS: Parenchyma: 1. Persistent mild to moderate chronic microvascular ischemic changes. 2. No mass or hemorrhage. No CT evidence of acute territorial vascular insult. Extra-axial spaces:No abnormal density. No extra-axial fluid collections . Unchanged small 1 x 0.5 cm extra-axial lesion in the left frontal convexity, most likely a small meningioma without associated mass effect. Brain volume: Normal for age. Ventricles: No hydrocephalus or displacement. Arteries: No density suggestive of thrombus. Dural sinuses: No abnormal density. Foramen magnum: No mass, Chiari malformation, or basilar invagination. Sella: No obvious mass. Paranasal/mastoid sinuses: Imaged portions unremarkable. Skull/Scalp: Diffuse heterogeneous bone marrow density, may be related to osteopenia , unchanged compared to head CT of 09/22/2019. IMPRESSION: 1. No acute intracranial abnormalities. 2. Stable mild chronic microvascular ischemic changes. 3. Unchanged tiny left frontal meningioma without mass effect. Signed by: Dr. Jeane Rosario M.D. on 10/05/2019 11:01 AM
[2019-10-05 11:36] LABS: BASOPHILS % 0.6 % (0.0-1.0); EOSINOPHILS # (AUTO) 0.1 (0.0-0.4); EOSINOPHILS % 1.8 % (0.0-6.0); HEMATOCRIT 43.8 % (34.2-44.1); HEMOGLOBIN 14.1 g/dL (12.0-16.0); LYMPHOCYTES # (AUTO) 1.1 (1.0-3.2); LYMPHOCYTES % 15.8 % (18.0-39.1); MEAN CORPUSCULAR HGB CONC 32.2 g/dL (31-35); MEAN CORPUSCULAR VOLUME 89.9 fL (81-99); MONOCYTES # (AUTO) 0.6 (0.2-0.8); MONOCYTES % 7.9 % (4.4-11.3); NEUTROPHILS # (AUTO) 5.2 (2.1-6.9); NEUTROPHILS % 73.5 % (38.7-80.0); PLATELET COUNT 112 x10e3/uL (140-360); RED BLOOD COUNT 4.87 x10e6/uL (3.6-5.1); RED CELL DISTRIBUTION WIDTH 13.6 % (11.7-14.4)
[2019-10-05 11:49] LABS: INR 1.04; PROTHROMBIN TIME 14.2 seconds (11.9-14.5)
[2019-10-05 11:50] LABS: PARTIAL THROMBOPLASTIN TIME 31.2 seconds (23.8-35.5)
[2019-10-05 11:57] LABS: ALBUMIN 3.3 g/dL (3.5-5.0); ALBUMIN/GLOBULIN RATIO 0.9 (0.8-2.0); ANION GAP 17.9 mmol/L (8-16); CALCIUM 9.5 mg/dL (8.4-10.2); CREATININE, SERUM 6.64 mg/dL (0.57-1.11); POTASSIUM 3.9 mmol/L (3.5-5.1)
[2019-10-05 12:03] LABS: CREATINE KINASE MB 1.1 ng/mL (0-5.0)
[2019-10-05] MEDS ORDERED: CLOPIDOGREL BISULFATE 75 MG TAB PO ONE (14:15)
[2019-10-05 14:24] VITALS: BP 142/74
== END 2019-10-05 14:37 | disposition home or self-care (01) ==
LOC: ER 10:03
DX: G45.9 Transient cerebral ischemic attack, unspecified (principal); Z88.8 Allergy status to other drugs, medicaments and biological substances; Z86.73 Personal history of transient ischemic attack (TIA), and cerebral infarction without residual deficits; I12.0 Hypertensive chronic kidney disease with stage 5 chronic kidney disease or end stage renal disease; N18.6 End stage renal disease; Z99.2 Dependence on renal dialysis
CPT/HCPCS: 36415; 70450; 71045; 80053; 82550; 82553; 83880; 84484; 85025; 85610; 85730; 93005; 99284

== ENCOUNTER 2020-01-27 10:59 | Emergency (ER) | payer MEDICARE ==
[~2020-01-27] VITALS: Ht 162.6 cm; Wt 51.3 kg
--- OUTSIDE RECORDS SUMMARY | 2020-01-27 11:03 | XMS REPORT ---
Author Author MIGUEL ROSADO Organization Unknown Address Unknown Phone Care Team Providers Care Business Education Instructor Name Role Phone VANI ROSADO PP Unavailable Reason for Referral No Reason for Referral was given. History of Present Illness No HPI available. 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 (Active) * Metoprolol Succinate ER 50 MG Oral Tablet Extended Release 24 Hour; TAKE 1 TABLET DAILY. (Active) * Losartan Potassium 25 MG Oral Tablet; TAKE ONE TABLET BY MOUTH EVERY DAY DIRECTED; Start Date: 06/04/2013; End Date: (Active) * Atorvastatin Calcium 10 MG Oral Tablet; TAKE 1 TABLET DAILY. (Active) * Levothyroxine Sodium 75 MCG Oral Tablet; TAKE 1 TABLET DAILY. (Active) * Omeprazole 20 MG Oral Capsule Delayed Release; TAKE 1 CAPSULE DAILY. (Active) * Cyanocobalamin 1000 MCG/ML Injection Solution; INJECT 1 ML INTRAMUSCULARLY ONCE A MONTH (Active) * Fenofibrate 48 MG Oral Tablet; TAKE 1 TABLET DAILY. (Active) * Nubia Allergy 180 MG Oral Tablet; TAKE 1 TABLET DAILY NEEDED. (Active) * AmLODIPine Besylate 5 MG Oral Tablet; TAKE 1 TABLET TWICE DAILY. (Active) * Fish Oil Concentrate 1000 MG Oral Capsule; take 2 capsules daily (Active) * Clopidogrel Bisulfate 75 MG Oral Tablet; TAKE 1 TABLET DAILY. (Active) * PARoxetine HCl 10 MG Oral Tablet; TAKE 1 TABLET DAILY.; Start Date: 07/12/2013 (Active) Allergies and Adverse Reactions * No Known Drug Allergies (Active) Past Medical History * History of Hypertension (401.9); (Resolved) * History of Rheumatoid Arthritis (714.0); (Resolved) * History of Diabetes Mellitus (250.00); (Resolved) * History of Hypothyroidism (244.9); (Resolved) * History of Chronic Renal Failure (585.9); (Resolved) * History of Diverticulosis (562.10); (Resolved) Procedures Procedure Procedure Date Date Completed Status Appendectomy - - Resolved Cholecystectomy - - Resolved Hysterectomy - - Resolved Oophorectomy - Unilateral (Removal Of One Ovary) - - Resolved Immunization * Zoster (Zostavax) * Influenza * Influenza - Administered on: 05/22/2013 Family History * Maternal history of Ovarian Cancer (V16.41); (Active) * Maternal history of Hypertension (V17.49); (Active) * Paternal history of Lung Cancer (V16.1); (Active) Social History * Marital History - Currently (Active) * Never A Smoker (Active) * Never Drank Alcohol (Active) Treatment Plan * Medication Use 06/14/2013 Routine Advance Directives * No Advance Directives available. Encounters * AUDIT 07/12/2013 * [facility], Provider: VANI ROSADO, Status: Ryan, Time: 12:15 PM 08/09/2013 * [facility], Provider: VANI ROSADO, Status: Ryan, Time: 2:15 PM 09/05/2013
--- OUTSIDE RECORDS SUMMARY | 2020-01-27 11:03 | XMS REPORT ---
Author Author MIGUEL Gorman Organization Unknown Address Unknown Phone Care Team Providers Care Vehicle Dynamics Engineer Name Role Phone Aida Gorman PP Unavailable Reason for Referral No Reason for Referral was given. History of Present Illness No HPI available. Problems * Normal Routine History And Physical Senior Citizen (65-80) (V70.0); ( Active) Medication * Glimepiride 1 MG Oral Tablet (Active) * Metoprolol Succinate ER 50 MG Oral Tablet Extended Release 24 Hour (Active) * Levothyroxine Sodium 75 MCG Oral Tablet (Active) * Omeprazole 20 MG Oral Capsule Delayed Release (Active) * Atorvastatin Calcium 10 MG Oral Tablet (Active) * Losartan Potassium 25 MG Oral Tablet; TAKE ONE TABLET BY MOUTH EVERY DAY DIRECTED; Start Date: 06/04/2013 (Active) * AmLODIPine Besylate 5 MG Oral Tablet (Active) * Cyanocobalamin 1000 MCG/ML Injection Solution; INJECT 1 ML INTRAMUSCULARLY ONCE A MONTH (Active) * Fenofibrate 48 MG Oral Tablet (Active) * Allergy TABS (Active) * Fish Oil CAPS (Active) Allergies and Adverse Reactions * No Known Drug Allergies (Active) Past Medical History * History of Hypertension (401.9); (Resolved) * History of Rheumatoid Arthritis (714.0); (Resolved) * History of Diabetes Mellitus (250.00); (Resolved) * History of Hypothyroidism (244.9); (Resolved) Procedures Procedure Procedure Date Date Completed Status Appendectomy - - Resolved Cholecystectomy - - Resolved Hysterectomy - - Resolved Oophorectomy - Unilateral (Removal Of One Ovary) - - Resolved Immunization * Zoster (Zostavax) * Influenza Family History * Maternal history of Ovarian Cancer (V16.41); (Active) * Maternal history of Hypertension (V17.49); (Active) * Paternal history of Lung Cancer (V16.1); (Active) Social History * Marital History - Currently (Active) * Never A Smoker (Active) * Never Drank Alcohol (Active) Advance Directives * No Advance Directives available. Encounters * AUDIT 06/04/2013 * [facility], Provider: VANI ROSADO, Status: Ryan, Time: 11:45 AM 06/07/2013
--- OUTSIDE RECORDS SUMMARY | 2020-01-27 11:03 | XMS REPORT ---
Author Author MIGUEL Gorman Organization Unknown Address Unknown Phone Care Team Providers Care Ranch Helper Name Role Phone Aida Gorman PP Unavailable Reason for Referral No Reason for Referral was given. History of Present Illness No HPI available. 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 (Active) * PARoxetine HCl 10 MG Oral Tablet; TAKE 1 TABLET DAILY.; Start Date: 07/12/2013 (Active) * Atorvastatin Calcium 10 MG Oral Tablet; TAKE 1 TABLET DAILY. (Active) * AmLODIPine Besylate 5 MG Oral Tablet; TAKE 1 TABLET TWICE DAILY. (Active) * Fish Oil Concentrate 1000 MG Oral Capsule; take 2 capsules daily (Active) * Cyanocobalamin 1000 MCG/ML Injection Solution; INJECT 1 ML INTRAMUSCULARLY ONCE A MONTH; Start Date: 08/09/2013 (Active) * Gabapentin 100 MG Oral Capsule; TAKE 1 CAPSULE DAILY (Active) * Fenofibrate 48 MG Oral Tablet; TAKE ONE TABLET BY MOUTH EVERY DAY; Start Date: 08/16/2013; End Date: (Active) * Omeprazole 20 MG Oral Capsule Delayed Release; TAKE 1 CAPSULE DAILY. (Active) * Levothyroxine Sodium 75 MCG Oral Tablet; TAKE 1 TABLET DAILY. (Active) * Metoprolol Succinate ER 50 MG Oral Tablet Extended Release 24 Hour; TAKE 1 TABLET DAILY. (Active) * Glimepiride 1 MG Oral Tablet; TAKE 1 TABLET DAILY. (Active) * Losartan Potassium 25 MG Oral Tablet; TAKE ONE TABLET BY MOUTH EVERY DAY DIRECTED; Start Date: 06/04/2013; End Date: (Active) Allergies and Adverse Reactions * Plavix TABS (Active) Past Medical History * History of [...] No Advance Directives available. Encounters * AUDIT 10/25/2013 * [facility], Provider: VANI ROSADO, Status: Ryan, Time: 2:15 PM 11/06/2013
--- OUTSIDE RECORDS SUMMARY | 2020-01-27 11:03 | XMS REPORT ---
Author Author MIGUEL ROSADO Organization Unknown Address Unknown Phone Care Team Providers Care Cloth Burler Name Role Phone VANI ROSADO PP Unavailable Reason for Referral No Reason for Referral was given. History of Present Illness No HPI available. 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 Encounters * AUDIT 08/09/2013 * [facility], Provider: VANI ROSADO, Status: Ryan, Time: 2:15 PM 09/05/2013 * [facility], Provider: VANI ROSADO, Status: Ryan, Time: 2:15 PM 10/09/2013
--- OUTSIDE RECORDS SUMMARY | 2020-01-27 11:03 | XMS REPORT ---
Author Author MIGUEL ROSADO Organization Unknown Address Unknown Phone Care Team Providers Care Babysitter Name Role Phone VANI ROSADO PP Unavailable [...] Kidney Disease, Stage 2 (585.2); (Active) * Vitamin B12 Deficiency (266.2); (Active) * Essential Hypertension (401.9); (Active) * Diabetes Mellitus Under Control (250.00); (Active) * Hyperlipidemia (272.4); (Active) * Hypothyroidism (244.9); (Active) Medication * Glimepiride 1 MG Oral Tablet; TAKE 1 TABLET DAILY. (Active) * Metoprolol Succinate ER 50 MG Oral Tablet Extended Release 24 Hour; TAKE 1 TABLET DAILY. (Active) * Levothyroxine Sodium 75 MCG Oral Tablet; TAKE 1 TABLET DAILY. (Active) * Omeprazole 20 MG Oral Capsule Delayed Release; TAKE 1 CAPSULE DAILY. (Active) * Atorvastatin Calcium 10 MG Oral Tablet; TAKE 1 TABLET DAILY. (Active) * Losartan Potassium 25 MG Oral Tablet; TAKE ONE TABLET BY MOUTH EVERY DAY DIRECTED; Start Date: 06/04/2013; End Date: (Active) * Nubia Allergy 180 MG Oral Tablet; TAKE 1 TABLET DAILY NEEDED. (Active) * Fish Oil Concentrate 1000 MG Oral Capsule; take 2 capsules daily (Active) * Fenofibrate 48 MG Oral Tablet; TAKE ONE TABLET BY MOUTH EVERY DAY; Start Date: 08/16/2013; End Date: (Active) * AmLODIPine Besylate 5 MG Oral Tablet; TAKE 1 TABLET DAILY. (Active) * PARoxetine HCl 10 MG Oral Tablet; TAKE 1 TABLET DAILY.; Start Date: 07/12/2013 (Active) * Cyanocobalamin 1000 MCG/ML Injection Solution; INJECT 1 ML INTRAMUSCULARLY ONCE A MONTH; Start Date: 08/09/2013 (Active) * Gabapentin 100 MG Oral Capsule; TAKE 1 CAPSULE DAILY (Active) Allergies and Adverse Reactions * Plavix [...] No Advance Directives available. Encounters * AUDIT 11/06/2013 * [facility], Provider: VANI ROSADO, Status: Ryan, Time: 12:45 PM 01/03/2014
--- OUTSIDE RECORDS SUMMARY | 2020-01-27 11:03 | XMS REPORT ---
Author Author MIGUEL Hand Organization Unknown Address Unknown Phone Care Team Providers Care Cook Morning Name Role Phone Maddison Hand PP Unavailable Reason for Referral No Reason for Referral was given. History of Present Illness No HPI available. Problems * Normal Routine History And Physical Senior Citizen (65-80) (V70.0); ( Active) * Anxiety Disorder NOS (300.00); (Active) * Vitamin B12 Deficiency (266.2); (Active) * Hyperlipidemia (272.4); (Active) * Hypothyroidism (244.9); (Active) * Esophageal Reflux (530.81); (Active) * Chronic Kidney Disease, Stage 2 (585.2); (Active) * Diabetes Mellitus Under Control (250.00); (Active) * Essential Hypertension (401.9); (Active) * Urinary Incontinence (788.30); (Active) Medication * Glimepiride 1 MG Oral Tablet; TAKE 1 TABLET DAILY. (Active) * Metoprolol Succinate ER 50 MG Oral Tablet Extended Release 24 Hour; TAKE 1 TABLET DAILY. (Active) * Levothyroxine Sodium 75 MCG Oral Tablet; TAKE 1 TABLET DAILY. (Active) * Omeprazole 20 MG Oral Capsule Delayed Release; TAKE 1 CAPSULE DAILY. (Active) * Losartan Potassium 25 MG Oral Tablet; TAKE ONE TABLET BY MOUTH EVERY DAY DIRECTED; Start Date: 06/04/2013 (Active) * Atorvastatin Calcium 10 MG Oral Tablet; TAKE ONE TABLET BY MOUTH EVERY NIGHT AT BEDTIME; Start Date: 11/08/2013; End Date: (Active) * Nubia Allergy 180 MG Oral Tablet; TAKE 1 TABLET DAILY NEEDED. (Active) * Fenofibrate 48 MG Oral Tablet; TAKE ONE TABLET BY MOUTH EVERY DAY; Start Date: 08/16/2013; End Date: (Active) * AmLODIPine Besylate 5 MG Oral Tablet; TAKE 1 TABLET DAILY. (Active) * Fish Oil Concentrate 1000 MG Oral Capsule; take 2 capsules daily (Active) * PARoxetine HCl 10 MG Oral Tablet; TAKE 1 TABLET DAILY.; Start Date: 07/12/2013 (Active) * Cyanocobalamin 1000 MCG/ML Injection Solution; INJECT 1 ML INTRAMUSCULARLY ONCE A MONTH; Start Date: 08/09/2013 (Active) * Gabapentin 100 MG Oral Capsule; TAKE 1 CAPSULE DAILY (Active) * One Touch Ultra Test Strips; CHECK FBS EVERY AM AND CHECK BS EVERY OTHER DAY IN THE EVENING; Start Date: 12/18/2013 (Active) Allergies and Adverse Reactions * Plavix [...] No Advance Directives available. Encounters * AUDIT 01/03/2014 * HE, Provider: VANI ROSADO, Status: Ryan, Time: 2:00 PM 05/01/2014
--- OUTSIDE RECORDS SUMMARY | 2020-01-27 11:03 | XMS REPORT | Continuity of Care Document ---
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 Name Role Phone PC Network Services Information Exchange Unavailable Un available Problems Problem Status Onset Date Classification Date Reported Comments Source Cervicalgia 08/18/2018 03/01/2019 [facility] [place], [facility] [place] CERVICAL Active 05/11/2018 [facility] [place] UNK Active 0 10/18/2016 [facility] Z12.31 - ENCNTR SCREEN MAMMOGRAM FOR MA Active 07/30/2015 [facility] [place] 585.4 Active 03/04/2015 [place] 585.2 Active 07/30/2014 [facility] Hypothyroidism Active 01/03/2014 [facility] Essential Hypertension Active 01/03/2014 [facility] Chronic Kidney Disease, Stage 2 Active 01/03/2014 [facility] Vaccines Prophylactic Need Against Influenza Active 11/08/2013 [facility] Fainting - Unconscious About 1-5 Minutes Active 06/18/2013 [facility] Diabetes Mellitus Under Control Active 01/03/2014 [facility] Nonspecific Abnormal Results Of Function Studies Active 11/08/2013 [facility] Automatism Active 11/08/2013 [facility] 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 [facility] Anxiety Disorder NOS Active 01/03/2014 [facility] Vitamin B12 Deficiency Active 01/03/2014 [facility] Hyperlipidemia Active 01/03/2014 [facility] Esophageal Reflux Active 01/03/2014 [facility] Urinary Incontinence Active 01/03/2014 [facility] Vitamin D deficiency Active Problem 12/07/2019 [facility] Osteoporosis Active Problem 12/07/2019 Cast[facility] Sou[facility] ESRD (end stage renal disease) Active Problem 05/2020 Cast[facility] Souza 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 Active Problem 05/2020 Cast[facility] Souza Rheumatoid arthritis of multiple sites w [facility] rheumatoid factor Active Prob malvin 12/07/2019 [facility] Har[facility] Muscle spasm Active Problem 12/07/2019 [facility] Osteopenia of multiple sites A ctive Problem 05/2020 Cast[facility] Souza Long-term (current) use of other medicat ions - High Risk Active Prob malvin 07/23/2015 [facility] Sou[facility] Unspecified vitamin D deficiency Active Problem [facility] RENAL INSUFFICIENCY Active Problem 07/23/2015 Cast[facility] Souza Osteoporosis, postmenopausal A ctive Problem [facility] Sou[facility] Cramp of limb Active Problem 07/23/2015 [facility] Sou[facility] Osteoarthrosis, multiple sites Active Problem [facility] Rheumatoid arthritis Active Problem 07/23/2015 [facility] Sou[facility] Osteopenia Active Problem 09/05/2014 [facility] Sou[facility] Age related osteoporosis Active Diagnosis 03/16/2016 [facility] Sou[facility] Trigger finger of left hand, unspecified finger Active Diagnosis 09/15/2019 [facility] Gastroesophageal reflux disease (disorder) Active Problem 07/22/2019 [facility] [place],[facility] [place] [facility] [place] Anemia of chronic renal failure (disorder) Active Problem 07/22/2019 [facility] [place],[facility] [place] [facility] [place] Diabetes mellitus (disorder) A ctive Problem [facility] [place] [place] [facility] [place] Hearing loss (finding) Active Problem 07/22/2019 [facility] [place] [place] [facility] [place] Hypertensive disorder, systemic arterial (disorder) Active Problem 07/22/2019 [facility] [place],[facility] [place] [facility] [place] Hypercholesterolemia (disorder) Active Problem [facility] [place] [place] [facility] [place] Hypertriglyceridemia (disorder) Active Problem [facility] [place] [place] [facility] [place] Hypothyroidism (disorder) Acti ve Problem [facility] [place],[facility] [place] [facility] [place] Renal failure syndrome (disorder) Active Problem [facility] [place] [place] [facility] [place] Incisional hernia of anterior abdominal wall (disorder ) Active Problem 07/22/2019 [facility] [place], [place],[facility] [place] [facility] [place] Anxiety (finding) Active Problem 07/22/2019 [facility] [place],[facility] [place] [facility] [place] Weakness 01/29/2019 [facility] [place] Abnormal posture 03/01/2019 [facility] [place] Encounter for screening mammogram for ma lignant neoplasm of breast 07/22/2019 [facility] [place] Spondylolisthesis, cervical region [facility] [place] Muscle weakness (generalized) 03/01/2019 [facility] [place] CHRONIC KIDNEY DISEASE, STAGE 4 (SEVERE) Active [facility] END STAGE RENAL DISEASE Active [facility] Medications Medication Details Route Status Patient Instructions Ordering Provider Order Date Source Vitamin D (Ergocalciferol) 1 c apsule Orally Active 37279 UNIT Orally once a week [place] 11/13/2018 Castillo Souza Prolia as directed Subcutaneous Active 60 MG/ML Subcutaneous q 6 months [place] 10/05/2018 Castillo Souza Prolia 60MG SQ Subcutaneous Active 60 MG/ML Subcutaneous Q 6 MONTHS [place] 08/31/2017 Castillo Souza Prolia 60MG SQ Subcutaneous Active 60 MG/ML Subcutaneous Q 6 MONTHS [facility] 06/22/2017 Castillo Souza Voltaren Gel apply to affected area Transdermal Active 1% Transdermal Four times a day [place] 04/05/2017 Castillo Souza Vitamin D (Ergocalciferol) 1 c apsule Orally Active 50,000 Orally ONCE A WEEK [place] 12/20/2016 Castillo Souza Oxycodone Hydrochloride 5 MG Oral Tablet 5 mg, Route: PO, Drug form: TAB, ONCE, Dosing Weight 59.545, kg, PRN Pain Score 4-6, Start date: 11/04/16 11:10:00 [facility] Inactive 11/04/2016 [facility] labetalol (ANES) Route: IV, ug form: INJ, ONCE, Stop date: 11/04/16 10:12:00 [facility] Inactive 11/04/2016 [facility] ePHEDrine (ANES) Route: IV, ug form: INJ, ONCE, Stop date: 11/04/16 9:58:00 [facility] Inactive 11/04/2016 [facility] famotidine (ANES) Route: IV, D rug form: INJ, ONCE, Stop date: 11/04/16 9:58:00 [facility] Inactive 11/04/2016 [facility] ondansetron (ANES) Route: IV, Drug form: INJ, ONCE, Stop date: 11/04/16 9:58:00 [facility] Inactive 11/04/2016 [facility] fentaNYL (ANES) Route: IV, Kushal g form: INJ, ONCE, Stop date: 11/04/16 9:58:00 [facility] Inactive 11/04/2016 [facility] propofol (ANES) Route: IV, Kushal g form: INJ, ONCE, Stop date: 11/04/16 9:58:00 [facility] Inactive 11/04/2016 [facility] lidocaine (ANES) Route: IV, Dr ug form: INJ, ONCE, Stop date: 11/04/16 9:58:00 [facility] Inactive 11/04/2016 [facility] rocuronium (ANES) Route: IV, D rug form: INJ, ONCE, Stop date: 11/04/16 9:58:00 [facility] Inactive 11/04/2016 [facility] neostigmine (ANES) Route: IV, Drug form: INJ, ONCE, Stop date: 11/04/16 9:58:00 [facility] Inactive 11/04/2016 [facility] glycopyrrolate (ANES) Route: I V, Drug form: INJ, ONCE, Stop date: 11/04/16 9:58:00 [facility] Inactive 11/04/2016 [facility] acetaminophen-codeine #3 2 tab , Route: PO, Drug Form: TAB, Dosing Weight 59.545, kg, Q4H, PRN Pain Score 4-6, Start date: 11/04/16 9:53:00 [facility], Duration: 30 day, Stop date: 12/04/16 9:52:00 CDT Inactive 11/04/2016 [facility] Morphine 2 mg, Route: IVP, Q3H , Dosing Weight 59.545, kg, PRN Pain Score 1-3, Start date: 11/04/16 9:53:00 [facility], Duration: 30 day, Stop date: 12/04/16 9:52:00 CDT Inactive 11/04/2016 [facility] vancomycin (ANES) (ANES) Route : IV, Drug form: INJ, Start date: 11/04/16 9:19:00 VP CL[facility], Stop date: 11/04/16 10:19:00 [facility] Inactive 11/04/2016 [facility] ceFAZolin (ANES) (ANES) Route: IV, Drug form: INJ, Start date: 11/04/16 9:19:00 [facility], Stop date: 11/04/16 10:19:00 [facility] Inactive 11/04/2016 [facility] sodium chloride 0.9% 500 ml INJ (ANES) Route: IV, Total Volume: 500, Start date: 11/04/16 9:10:00 VP CLIENT SERVICES, Stop date: 11/04/16 10:10:00 [facility] Inactive 11/04/2016 [facility] sodium chloride 0.9% 500 ml INJ 500 mL 500 mL, Rate: 40 ml/hr, Infuse over: 12.5 hr, Route: IV, Dosing Weight 59.545 kg, Total Volume: 500, Start date: 11/04/16 8:04:00 [facility], Duration: 1 day, Stop date: 11/05/16 8:03:00 [facility] Inactive 11/04/2016 [facility] Lactated Ringers 1,000 mL 1,00 0 mL, Rate: 40 ml/hr, Infuse over: 25 hr, Route: IV, Dosing Weight 59.545 kg, Total Volume: 1,000, Start date: 11/04/16 8:03:00 [facility], Duration: 1 day, Stop date: 11/05/16 8:02:00 [facility] Inactive 11/04/2016 [facility] Vitamin D3 50,000 intl units oral capsule 50,000 IntlUnit = 1 cap, PO, qWeek, # 12 cap, 0 Refill(s) Active 10/28/2016 [facility] glimepiride 1 mg oral tablet 1 mg = 1 tab, PO, Daily, 0 Refill(s) Active 10/28/2016 [facility] Ancef Notes: Same as: Ancef No Longer Active 10/28/2016 [facility] Vancomycin 2001 mg: infuse ov er 2.5 hours MEDICATION WASTE Product Size: 1000 mg Product Wasted: ___ mg No Longer Active 10/28/2016 [facility] Famotidine 10 MG Oral Tablet 1 0 mg = 1 tab, PO, BID, 0 Refill(s) Active 10/28/2016 [facility] Vitamin D (Ergocalciferol) 1 c apsule Orally Active 04799 UNIT Orally Once a week [place] 09/10/2016 [facility] Burrowser PredniSONE 2 tablets with food or milk Orally Active 5 MG Orally Once a day [place] 02/09/2016 [facility] Souza Nexium 1 capsule Orally Active 40 MG Orally Once a day [place] 02/09/2016 Castillo Souza propofol (ANES) Route: IV, Kushal g form: INJ, ONCE, Stop date: 11/24/15 9:58:00 Inactiv e 11/24/2015 [facility] lidocaine (ANES) Route: IV, Dr ug form: INJ, ONCE, Stop date: 11/24/15 9:58:00 Inactiv e 11/24/2015 [facility] fentaNYL (ANES) Route: IV, Kushal g form: INJ, ONCE, Stop date: 11/24/15 9:53:00 Inactiv e 11/24/2015 [facility] midazolam (ANES) Route: IV, Dr ug form: SOLN, ONCE, Stop date: 11/24/15 9:53:00 Inactiv e 11/24/2015 [facility] ceFAZolin (ANES) Route: IV, Dr ug form: INJ, ONCE, Stop date: 11/24/15 9:53:00 Inactiv e 11/24/2015 [facility] Oxycodone Notes: (Same as: Odilia icodone) Inactive 11/24/2015 [facility] Flumazenil Notes: (Same as: Ro mazicon) Inactive 11/24/2015 [facility] Meperidine Notes: (Same As: De merol) Inactive 11/24/2015 [facility] Naloxone Notes: Same as Narcan Inactive 11/24/2015 [facility] Fentanyl Notes: (Same as: Subl imaze) Preservative free. Inactive 11/24/2015 [facility] Hydromorphone 0.5 mg, 0.5 mL, Route: IVP, Drug form: INJ, Q5Min, Dosing Weight 57.784, kg, PRN Pain Score 7-10, Start date: 11/24/15 9:51:00, Duration: 4 doses or times, Stop date: Limited # of times Inactive 11/24/2015 [facility] Ondansetron Notes: (Same as: Carolann ardon) MEDICATION WASTE Product Size: 4 mg Product Wasted: ___ mg Inactive 11/24/2015 [facility] Hydralazine Notes: (Same as: A presoline) Push over 5 minutes Inactive 11/24/2015 [facility] ondansetron (ANES) Route: IV, Drug form: INJ, ONCE, Stop date: 11/24/15 9:43:00 Inactiv e 11/24/2015 [facility] vancomycin (ANES) (ANES) Route : IV, Drug form: INJ, Start date: 11/24/15 9:11:00, Stop date: 11/24/15 10:11:00 Inactive 11/24/2015 [facility] Sodium Chloride 0.154 MEQ/ML Injectable Solution 500 mL, Rate: 25 ml/hr, Infuse over: 20 hr, Route: IV, Dosing Weight 57.784 kg, Total Volume: 500, Start date: 11/24/15 9:09:00, Duration: 30 day, Stop date: 12/24/15 9:08:00 Inactive 11/24/2015 [facility] Sodium Chloride 0.9% IV (ANES) (ANES) Route: IV, Total Volume: 500, Start date: 11/24/15 9:08:00, Stop date: 11/24/15 10:08:00 Inactive 11/24/2015 [facility] Calcium Chloride 0.0014 MEQ/ML / Potassi um Chloride 0.004 MEQ/ML / Sodium Chloride 0.103 MEQ/ML / Sodium Lactate 0.028 MEQ/ML Injectable Solution 1,000 mL, Rate: 25 ml/hr, Infuse over: 4 0 hr, Route: IV, Dosing Weight 57.784 kg, Total Volume: 1,000, Start date: 11/24/15 9:08:00, Duration: 30 day, Stop date: 12/24/15 9:07:00 Inactive 11/24/2015 [facility] Vancomycin 2001 mg: infuse ov er 2.5 hours MEDICATION WASTE Product Size: 1000 mg Product Wasted: ___ mg No Longer Active 11/17/2015 [facility] Ancef Notes: Same as: Ancef No Longer Active 11/17/2015 [facility] Hydralazine 10 mg, Route: IVP, Q20Min, Dosing Weight 60, kg, PRN Elevated BP, Start date: 03/24/15 13:35:00, Duration: 2 doses or times, Stop date: Limited # of times Inactive 03/24/2015 [facility] Glycopyrrolate 0.2 mg, Route: IVP, Q5Min, Dosing Weight 60, kg, PRN Bradycardia, Start date: 03/24/15 13:35:00, Duration: 3 doses or times, Stop date: Limited # of times Inactive 03/24/2015 [facility] Ondansetron 4 mg, Route: IVP, ONCE, Dosing Weight 60, kg, PRN Nausea & Vomiting, Start date: 03/24/15 13:35:00 Inactive 03/24/2015 [facility] Flumazenil 0.2 mg, Route: IVP, PRN, Dosing Weight 60, kg, PRN Benzodiazepine Reversal, Initial dose, Start date: 03/24/15 13:35:00, Duration: 30 day, Stop date: 04/23/15 13:34:00 Inactive 03/24/2015 [facility] Meperidine 12.5 mg, Route: IVP , Q30Min, Dosing Weight 60, kg, PRN Other -See Comment, For shivering, Start date: 03/24/15 13:35:00, Duration: 2 doses or times, Stop date: Limited # of times Inactive 03/24/2015 [facility] Promethazine 6.25 mg, Route: I VPB, ONCE, Dosing Weight 60, kg, PRN Nausea & Vomiting, Start date: 03/24/15 13:35:00 Inactive 03/24/2015 [facility] Naloxone 0.04 mg, Route: IVP, Q2MIN, Dosing Weight 60, kg, PRN Narcotic Reversal, Start date: 03/24/15 13:35:00, Duration: 8 doses or times, Stop date: Limited # of times Inactive 03/24/2015 [facility] Morphine 4 mg, Route: IVP, Q5M in, Dosing Weight 60, kg, PRN Pain Score 7-10, Start date: 03/24/15 13:35:00, Duration: 3 doses or times, Stop date: Limited # of times Inactive 03/24/2015 [facility] Hydromorphone 0.5 mg, Route: I MATERIAL MANAGER, Q5Min, Dosing Weight 60, kg, PRN Pain Score 7-10, Start date: 03/24/15 13:35:00, Duration: 4 doses or times, Stop date: Limited # of times Inactive 03/24/2015 [facility] Diphenhydramine 12.5 mg, Route : IVP, Drug form: INJ, Q6H, Dosing Weight 60, kg, PRN Itching, Start date: 03/24/15 13:35:00, Duration: 30 day, Stop date: 04/23/15 13:34:00 Inactive 03/24/2015 [facility] Fentanyl 25 microgram, Route: IVP, Q5Min, Dosing Weight 60, kg, PRN Pain Score 4-6, Start date: 03/24/15 13:35:00, Duration: 4 doses or times, Stop date: Limited # of times Inactive 03/24/2015 [facility] Ketorolac 4 days MEDICA TION WASTE Product Size: 30 mg Product Wasted: ___ mg Inactive 03/24/2015 [facility] Oxycodone 10 mg, Route: PO, Dr ug form: TAB, Q4H, Dosing Weight 60, kg, PRN Pain Score 7-10, Start date: 03/24/15 13:35:00, Duration: 30 day, Stop date: 04/23/15 13:34:00 Inactive 03/24/2015 [facility] Metoprolol 1 mg, Route: IVP, Q 5Min, Dosing Weight 60, kg, PRN Other -See Comment, Start date: 03/24/15 13:35:00, Duration: 5 doses or times, Stop date: Limited # of times Inactive 03/24/2015 [facility] acetaminophen-codeine #3 1 tab , Route: PO, Drug Form: TAB, Dosing Weight 60, kg, Q4H, PRN Pain Score 4-6, Start date: 03/24/15 13:01:00, Duration: 30 day, Stop date: 04/23/15 13:00:00 Inactive 03/24/2015 [facility] Morphine 2 mg, Route: IVP, Q3H , Dosing Weight 60, kg, PRN Pain Score 1-3, Start date: 03/24/15 13:01:00, Duration: 30 day, Stop date: 04/23/15 13:00:00 Inactive 03/24/2015 [facility] Ancef 2 gm, Route: IVPB, ONCE, Dosing Weight 60, kg, Start date: 03/24/15 11:43:00, Duration: 1 doses or times, Stop date: 03/24/15 11:43:00 Inactive 03/24/2015 [facility] Sodium Chloride 0.154 MEQ/ML Injectable Solution 500 mL, Rate: 25 ml/hr, Infuse over: 20 hr, Route: IV, Dosing Weight 60 kg, Total Volume: 500, Start date: 03/23/15 8:26:00, Duration: 2 day, Stop date: 03/25/15 8:25:00 No Longer Active 03/23/2015 [facility] Vancomycin Notes: TIME CRITICA L MEDICATION No Longer Active 03/17/2015 [facility] Atorvastatin Calcium 10 MG Oral Tablet ; Start Date: 11/08/2013; End Date: (Active) Active 11/08/2013 [facility] Fenofibrate 48 MG Oral Tablet ; Start Date: 08/16/2013; End Date: (Active) Active 08/16/2013 [facility] Cyanocobalamin 1000 MCG/ML Injection Solution ; Start Date: 08/09/2013 (Active) Active 08/09/2013 [facility] PARoxetine HCl 10 MG Oral Tablet ; Start Date: 07/12/2013 (Active) Active 07/12/2013 [facility] Losartan Potassium 25 MG Oral Tablet ; Start Date: 06/04/2013 (Active) Active 06/04/2013 [facility] Glimepiride 1 MG Oral Tablet (Active) Active [facility] Metoprolol Succinate ER 50 MG Oral Table t Extended Release 24 Hour (Active) A ctive [facility] Levothyroxine Sodium 75 MCG Oral Tablet (Active) Active [facility] Omeprazole 20 MG Oral Capsule Delayed Release (Active) Active [facility] Atorvastatin Calcium 10 MG Oral Tablet (Active) Active [facility] AmLODIPine Besylate 5 MG Oral Tablet (Active) Active [facility] Cyanocobalamin 1000 MCG/ML Injection Solution (Active) Active [facility] Fenofibrate 48 MG Oral Tablet (Active) Active [facility] Allergy TABS (Active) Active [facility] Fish Oil CAPS (Active) Active [facility] Losartan Potassium 25 MG Oral Tablet (Active) Active [facility] Nubia Allergy 180 MG Oral Tablet (Active) Active [facility] Integra Plus CAPS (Active) Active [facility] Fish Oil Concentrate 1000 MG Oral Capsule (Active) Active [facility] Clopidogrel Bisulfate 75 MG Oral Tablet (Active) Active [facility] Integra Plus Oral Capsule (Ac tive) Active [facility] Metoprolol Succinate ER 50 MG Oral Table t Extended Release 24 Hour (Active) A ctive [facility] Gabapentin 100 MG Oral Capsule (Active) Active [facility] Metoprolol Tartrate 1 tablet Orally Active 50 MG Orally Once a day Ranjit Castillo Souza Nubia 1 tablet as needed Orally Active 160 MG Orally Once a day Chase Souza Vitamin D (Ergocalciferol) 1 c apsule Orally Active 50,000 Orally ONCE A WEEK [facility] Castillo Souza Aspir-81 1 tablet Orally Active 81 MG Orally Once a day Ranjit Farshad Souza Prolia 60MG SQ Subcutaneous Active 60 MG/ML Subcutaneous Q 6 MONTHS Ranjit Castillo Souza Calcitriol 1 capsule Orally Active 0.25 MCG Orally Once a day Ranjit Castillo Souza Levothyroxine Sodium 1 tablet Orally Active 75 MCG Orally Once a day Ranjit Castillo Souza Paroxetine HCl 1 tablet in the morning Orally Active 10 MG Orally Once a day Ranjit Castillo Souza [place] 3 1 capsule Orally Active 1200 mg Orally Once a d ay Ranjit Farshad Souza Sodium Bicarbonate 1 tablet Orally Active 650 MG Orally twice a day Ranjit Castillo Souza Famotidine 1 tablet as needed Orally Active 10 MG Orally Twice a day Ranjit Castillo Souza Ergocalciferol 1 capsule Orally Active 1000 mg Orally Once a d ay Ranjit Castillo Souza Cyanocobalamin 1 ml Injection Active 1000 MCG/ML Injection O nce a month Ranjit Castillo Souza Amlodipine Besylate 1/2 tablet Orally Active 5 MG Orally Once a day Ranjit Castillo Souza [place] 3 1 capsule Orally Active 1200 mg Orally Once a d ay Ozuna [facility] genie Souza Famotidine 1 tablet as needed Orally Active 10 MG Orally Twice a day Laith Souza Amlodipine Besylate 1/2 tablet Orally Active 5 MG Orally Once a day Laith Souza Prolia 60MG SQ Subcutaneous Active 60 MG/ML Subcutaneous Q 6 MONTHS [facility] Castillo Souza Cyanocobalamin 1 ml Injection Active 1000 MCG/ML Injection O nce a month Laith Souza Sodium Bicarbonate 1 tablet Orally Active 650 MG Orally twice a day Laith Souza Paroxetine HCl 1 tablet in the morning Orally Active 10 MG Orally Once a day Laith Souza Levothyroxine Sodium 1 tablet Orally Active 75 MCG Orally Once a day [place] Castillo Souza Ergocalciferol 1 capsule Orally Active 1000 mg Orally Once a d Laith Souza Metoprolol Tartrate 1 tablet Orally Active 50 MG Orally Once a day Chase Souza Aspir-81 1 tablet Orally Active 81 MG Orally Once a day Faka Farshad Souza Calcitriol 1 capsule Orally Active 0.25 MCG Orally [facility] Castillo Souza Tizanidine HCl 1 tablet as nee ded Orally Active 4 MG Orally Three times a day Laith Souza Vitamin B-12 15 ml Orally Active 1000 MCG/15ML Orally On ce a day Souza Castillo Souza Synthroid 1 tablet every morni ng on an empty stomach Orally Active 75 MCG Orally Once a day [facility] Castillo Souza Omeprazole 2 capsules Orally Active 20 MG Orally Once a day Souza Castillo Souza Glimepiride 1 tablet with isiah kfast or the first main meal of the day Orally Active 1 MG Orally Once a day Souza Castillo Souza Losartan Potassium 1 tablet Orally Active 25 MG Orally Once a day Laith Souza Tricor 1 tablet Orally Active 48 MG Orally Once a day [facility] genie Souza Atorvastatin Calcium 1 tablet Orally Active 10 MG Orally Once a day Souza Castillo Souza Fenofibrate 1 tablet Orally Active 48 MG Orally Once a day Souza Farshad Souza Aspirin 2 tablets Orally Active 81 MG Orally every nigh t [place] Farshad Souza Famotidine 1 tablet as needed Orally Active 20 MG Orally Twice a day Chase Souza Atorvastatin Calcium 1 tablet Orally Active 20 MG Orally Once a day Chase Souza Amlodipine Besylate 1 tablet Orally Active 5 MG Orally Once a day Chase Souza Pantoprazole Sodium 1 tablet Orally Active 40 MG Orally Once a day Chase Souza Sensipar 1 tablet with food or after a meal Orally Active 30 MG Orally Once a day Chase Souza Nubia 1 tablet as needed Orally Active 160 MG Orally Once a day Harley Souza Allergies, Adverse Reactions, Alerts Substance Category Reaction Severity Reaction type Status Date Reported Comments Source Plavix Adverse Reaction rash Adverse Reaction Active 07/24/2019 [facility] Fosamax Adverse Reaction severe muscle cramping Adverse Reaction Active 07/24/2019 [facility] No Known Drug Allergies drug a llergy drug aller gy Active [facility] Plavix TABS drug allergy drug allergy Active [facility] Immunizations Immunization Date Given Site Status Last Updated Comments Source Prolia 09/10/2016 completed aCstillo Souza Prolia 03/11/2016 completed [facility] Sou[facility] Influenza 05/22/2013 completed [facility] Zoster (Zostavax) completed [facility] Influenza completed [facility] Results Order Name Results Value Reference Range Date Interpretation Comments Source ELECTROLYTES Potassium Lvl 4.3 3.5 - 5.1 11/04/2016 [facility] BLOOD BANK RESULTS Antibody Scrn Negative (10/28/16 10:13 AM) 10/28/2016 [facility] BLOOD BANK RESULTS ABO/Rh A POS 10/28/2016 [facility] ELECTROLYTES AGAP 12.4 10.0 - 20.0 10/28/2016 [facility] ELECTROLYTES eGFR 12 10/28/2016 Result Comment: The eGFR is calculated [...] should be multiplied by the estimated BMI. [facility] ELECTROLYTES BUN 36 7 - 22 10/28/2016 [facility] ELECTROLYTES Glucose Lvl 95 70 - 99 10/28/2016 [facility] ELECTROLYTES Creatinine Lvl 3.5 0 0.50 - 1.40 10/28/2016 [facility] ELECTROLYTES Calcium Lvl 9.1 8.5 - 10.5 10/28/2016 [facility] ELECTROLYTES CO2 21 24 - 32 10/28/2016 [facility] ELECTROLYTES Potassium Lvl 4.4 3.5 - 5.1 10/28/2016 [facility] ELECTROLYTES Chloride Lvl 112 95 - 109 10/28/2016 [facility] ELECTROLYTES Sodium Lvl 141 135 - 145 10/28/2016 [facility] HEMATOLOGY Lymphocytes 21.2 20.0 - 40.0 10/28/2016 [facility] HEMATOLOGY Basophils 1.5 0.0 - 1.0 10/28/2016 [facility] HEMATOLOGY Segs-Bands # 4.2 1.5 - 8.1 10/28/2016 [facility] HEMATOLOGY Eosinophils 3.9 0.0 - 4.0 10/28/2016 [facility] HEMATOLOGY Monocytes 7.5 2.0 - 12.0 10/28/2016 [facility] [facility] H[facility]ATOLOGY Eosinophils # 0.2 0.0 - 0.5 10/28/2016 [facility] HEMATOLOGY Lymphocytes # 1.4 1.0 - 5.5 10/28/2016 [facility] HEMATOLOGY Monocytes # 0.5 0.0 - 0.8 10/28/2016 [facility] HEMATOLOGY Basophils # 0.1 0.0 - 0.2 10/28/2016 [facility] Segs 65.9 45.0 - 75.0 10/28/2016 [facility] INR 1.04 0.85 - 1.17 10/28/2016 [facility] PT 13.8 12.0 - 14.7 10/28/2016 [facility] PTT 30.0 22.9 - 35.8 10/28/2016 [facility] MPV 8.3 7.4 - 10.4 10/28/2016 [facility] MCHC 34.0 32.0 - 36.0 10/28/2016 [facility] RDW 13.5 11.5 - 14.5 10/28/2016 [facility] RBC 3.45 4.20 - 5.40 10/28/2016 [facility] Hct 30.5 36.0 - 48.0 10/28/2016 [facility] Hgb 10.4 12.0 - 16.0 10/28/2016 [facility] MCV 88.5 80.0 - 98.0 10/28/2016 [facility] MCH 30.1 27.0 - 31.0 10/28/2016 [facility] HEMATOLOGY Platelet 135 133 - 450 10/28/2016 [facility] HEMATOLOGY WBC 6.4 3.7 - 10.4 10/28/2016 [facility] ELECTROLYTES Potassium Lvl 5.0 3.5 - 5.1 11/24/2015 [facility] CHEM PANEL eGFR 18 11/17/2015 Result Comment: The eGFR is calculated [...] should be multiplied by the estimated BMI. [facility] CHEM PANEL Calcium Lvl 7.9 8.5 - 10.5 11/17/2015 [facility] CHEM PANEL CO2 20 24 - 32 11/17/2015 [facility] CHEM PANEL Chloride Lvl 113 95 - 109 11/17/2015 [facility] CHEM PANEL Potassium Lvl 4.8 3.5 - 5.1 11/17/2015 [facility] CHEM PANEL Sodium Lvl 140 135 - 145 11/17/2015 [facility] CHEM PANEL Creatinine Lvl 2.45 0.50 - 1.40 11/17/2015 [facility] CHEM PANEL BUN 37 7 - 22 11/17/2015 [facility] CHEM PANEL Glucose Lvl 130 70 - 99 11/17/2015 [facility] CHEM PANEL AGAP 11.8 10.0 - 20.0 11/17/2015 [facility] HEMATOLOGY INR 1.15 0.85 - 1.17 11/17/2015 [facility] HEMATOLOGY PT 15.0 12.0 - 14.7 11/17/2015 [facility] HEMATOLOGY MCV 89.9 80.0 - 98.0 11/17/2015 [facility] HEMATOLOGY MPV 8.5 7.4 - 10.4 11/17/2015 [facility] MCHC 33.1 32.0 - 36.0 11/17/2015 [facility] HEMATOLOGY RDW 14.3 11.5 - 14.5 11/17/2015 [facility] MCH 29.7 27.0 - 31.0 11/17/2015 [facility] Platelet 158 133 - 450 11/17/2015 [facility] Hct 27.1 36.0 - 48.0 11/17/2015 [facility] HEMATOLOGY RBC 3.01 4.20 - 5.40 11/17/2015 [facility] HEMATOLOGY Hgb 9.0 12.0 - 16.0 11/17/2015 [facility] HEMATOLOGY WBC 5.6 3.7 - 10.4 11/17/2015 [facility] HEMATOLOGY PTT 27.1 22.9 - 35.8 11/17/2015 [facility] HEMATOLOGY Basophils # 0.1 0.0 - 0.2 11/17/2015 [facility] HEMATOLOGY Segs-Bands # 3.9 1.5 - 8.1 11/17/2015 [facility] HEMATOLOGY Eosinophils # 0.1 0.0 - 0.5 11/17/2015 [facility] HEMATOLOGY Lymphocytes # 1.1 1.0 - 5.5 11/17/2015 [facility] HEMATOLOGY Monocytes # 0.5 0.0 - 0.8 11/17/2015 [facility] Lymphocytes 18.8 20.0 - 40.0 11/17/2015 [facility] HEMATOLOGY Basophils 1.4 0.0 - 1.0 11/17/2015 [facility] Monocytes 8.0 2.0 - 12.0 11/17/2015 [facility] HEMATOLOGY Eosinophils 2.1 0.0 - 4.0 11/17/2015 [facility] HEMATOLOGY Segs 69.7 45.0 - 75.0 11/17/2015 [facility] CHEM PANEL Glucose Lvl 100 70 - 99 03/24/2015 [facility] ELECTROLYTES Potassium Lvl 5.4 3.5 - 5.1 03/24/2015 [facility] CHEM PANEL BUN 50 7 - 22 03/17/2015 [facility] CHEM PANEL eGFR 13 03/17/2015 Result Comment: The eGFR is calculated [...] should be multiplied by the estimated BMI. [facility] CHEM PANEL Creatinine Lvl 3.3 0.5 - 1.4 03/17/2015 [facility] CHEM PANEL Sodium Lvl 140 135 - 145 03/17/2015 [facility] CHEM PANEL Glucose Lvl 106 70 - 99 03/17/2015 [facility] CHEM PANEL Potassium Lvl 4.7 3.5 - 5.1 03/17/2015 [facility] CHEM PANEL Chloride Lvl 109 95 - 109 03/17/2015 [facility] CHEM PANEL Calcium Lvl 9.2 8.5 - 10.5 03/17/2015 [facility] CHEM PANEL CO2 20 24 - 32 03/17/2015 [facility] CHEM PANEL AGAP 15.7 10.0 - 20.0 03/17/2015 [facility] HEMATOLOGY PTT 34.3 22.9 - 35.8 03/17/2015 [facility] HEMATOLOGY INR 1.16 0.85 - 1.17 03/17/2015 [facility] HEMATOLOGY PT 14.9 12.0 - 14.7 03/17/2015 [facility] HEMATOLOGY MPV 9.0 7.4 - 10.4 03/17/2015 [facility] HEMATOLOGY Platelet 158 133 - 450 03/17/2015 [facility] HEMATOLOGY Hct 27.7 36.0 - 48.0 03/17/2015 [facility] HEMATOLOGY MCV 87.9 80.0 - 98.0 03/17/2015 [facility] HEMATOLOGY RBC 3.15 4.20 - 5.40 03/17/2015 [facility] Hgb 9.3 12.0 - 16.0 03/17/2015 [facility] MCHC 33.7 32.0 - 36.0 03/17/2015 [facility] HEMATOLOGY RDW 14.0 11.5 - 14.5 03/17/2015 [facility] MCH 29.6 27.0 - 31.0 03/17/2015 [facility] HEMATOLOGY WBC 5.4 3.7 - 10.4 03/17/2015 [facility] HEMATOLOGY Lymphocytes # 1.2 1.0 - 5.5 03/17/2015 [facility] HEMATOLOGY Segs-Bands # 3.4 1.5 - 8.1 03/17/2015 [facility] HEMATOLOGY Basophils 1.4 0.0 - 1.0 03/17/2015 [facility] HEMATOLOGY Eosinophils 3.0 0.0 - 4.0 03/17/2015 [facility] HEMATOLOGY Basophils # 0.1 0.0 - 0.2 03/17/2015 [facility] HEMATOLOGY Monocytes # 0.6 0.0 - 0.8 03/17/2015 [facility] HEMATOLOGY Eosinophils # 0.2 0.0 - 0.5 03/17/2015 [facility] HEMATOLOGY Monocytes 10.9 2.0 - 12.0 03/17/2015 [facility] HEMATOLOGY Segs 62.7 45.0 - 75.0 03/17/2015 [facility] HEMATOLOGY Lymphocytes 22.0 20.0 - 40.0 03/17/2015 [facility] Pathology Reports No Data Provided for This Section Diagnostic Reports Report Value Date Source Breast Mammo Scrn MC incl CAD MA BILATERAL DIGITAL SCREENING MAMMOGRAM WITH CAD: 07/19/2019 CLINICAL: Screening/Screening. Current study was evaluated with a Computer Aided Detection (CAD) system. COMPARISON:Comparison is made to exams dated: 07/17/2018 mammogram, 07/16/2017 mammogram, 08/19/2015 mammogram - [facility], 06/26/2014 mammogram, 09/28/2013 mammogram, and 09/26/2012 mammogram - [facility]. TECHNIQUE: Mammographic views were obtained using digital [...] malignancy. A 1 year screening mammogram is recommended.(07/19/2020) This exam was interpreted at [id number] for Melody, SL 15. Professional services are provided by the [facility]. Kelley Del Rio M.D., ms/osito:07/20/2019 08:33:03 Magazine Publisher(s): RT Celeste(R)(M), [facility] letter sent: BI-RADS 1/2 Dense Mammogram BI-RADS: 2 Benign 07/19/2019 [facility] Breast Mammo Scrn MC incl CAD MA BILATERAL DIGITAL SCREENING MAMMOGRAM WITH CAD: 07/17/2018 CLINICAL: Routine/Screening. Current study was evaluated with a Computer Aided Detection (CAD) system. COMPARISON:Comparison is made to exams dated: 07/16/2017 mammogram, 08/19/2015 mammogram - [facility], 06/26/2014 mammogram, 09/28/2013 mammogram, 09/26/2012 mammogram, and 09/17/2011 mammogram - [facility]. TECHNIQUE: Mammographic views were obtained using digital [...] is recommended.(07/18/2019) This exam was interpreted at [id number] for CHELSEA Sun. Professional services are provided by the [facility] of Diagnostic Imaging. Deisy Vance M.D. ak/penrad:07/19/2018 10:59:26 Magazine Publisher(s): RT Herminio(R)(M), [facility] letter sent: BI-RADS 1/2 Mammogram BI-RADS: 2 Benign 07/17/2018 [facility] Hung Spine cervical 2 or 3 view DX EXAM: XR CERVICAL SPINE 3 VIEWS DATE: 05/02/2018 2:16 PM CDT INDICATION: M54.2 Cervicalgia COMPARISON: None. TECHNIQUE: 3 views of the cervical spine FINDINGS: Vertebral body heights and intervertebral disc spaces are preserved. Mild C4-C5 listhesis is identified. Mild degenerative changes are seen. No prevertebral swelling is appreciated IMPRESSION: Mild C4-C5 listhesis. 05/02/2018 [facility] Breast Mammo Scrn MC incl CAD MA BILATERAL DIGITAL SCREENING MAMMOGRAM WITH CAD: 07/16/2017 CLINICAL: /Z12.31 Encounter For Screening Mammogram For Malignant Neoplasm Of Breast. Current study was evaluated with a Computer Aided Detection (CAD) system. COMPARISON:Comparison is made to exams dated: 08/19/2015 mammogram - [facility], 06/26/2014 mammogram, 09/28/2013 mammogram, 09/26/2012 mammogram, and 09/17/2011 mammogram - [facility]. TECHNIQUE: Mammographic views were obtained using digital [...] 1 year screening mammogram is recommended.(07/17/2018) Wili bartlett/osito:07/19/2017 09:55:37 Magazine Publisher(s): Tejal Lucio [facility] letter sent: BI-RADS 1/2 Dense Mammogram BI-RADS: 2 Benign 07/16/2017 [facility] Chest 2 views DX EXAM: XR CHES T 2 VIEWS DATE: 03/03/2016 3:36 PM CDT [...] significant change with compared with 03/17/2015. 03/03/2016 [facility] Digital Mammo Screening Mc MA - DIGITAL MAMMO SCREENING MC MA BILATERAL DIGITAL SCREENING MAMMOGRAM WITH CAD: 08/19/2015 CLINICAL: Routine. Current study was evaluated with a Computer Aided Detection (CAD) system. Comparison is made to exams dated: 06/26/2014 mammogram, 09/28/2013 mammogram, 09/26/2012 mammogram and 09/17/2011 mammogram - [facility]. The tissue of both breasts is heterogeneously [...] is recommended. Paul Vick M.D., cm/penrad:08/27/2015 11:51:17 Magazine Publisher: [place] RT(R)(M), [facility] This exam was dictated and interpreted by [id number] for [place]. letter sent: Normal exam Mammogram BI-RADS: 2 Benign 08/19/2015 [facility] [place] Chest 2 views DX PA and LATERA L CHEST (2 views) HISTORY: Coughing Prior studies [...] Atherosclerosis. Coding: Chest 2 views CPT Code: 89954 SL: 13 Avni Vazquez M.D. 03/17/2015 [facility] Consultation Notes No Data Provided for This Section Discharge Summaries No Data Provided for This Section History and Physicals No Data Provided for This Section Vital Signs Vital Sign Value Date Comments Source Weight 117.4 07/24/2019 [facility] Height 63.75 07/24/2019 [facility] Temperature Oral (F) 98.2 F 07/24/2019 [facility] Heart Rate 68 07/24/2019 [facility] Diastolic (mm Hg) 40 07/24/2019 [facility] Systolic (mm Hg) 114 07/24/2019 [facility] Weight 120 04/04/2018 [facility] Height 64 0 04/04/2018 [facility] Temperature Oral (F) 97.9 F 04/04/2018 [facility] Heart Rate 64 04/04/2018 [facility] Diastolic (mm Hg) 52 04/04/2018 [facility] Systolic (mm Hg) 130 04/04/2018 [facility] Weight 126.2 10/12/2017 [facility] Height 64 0 10/12/2017 [facility] Temperature Oral (F) 97.4 F 10/12/2017 [facility] Heart Rate 78 10/12/2017 [facility] Diastolic (mm Hg) 60 10/12/2017 [facility] Systolic (mm Hg) 116 10/12/2017 [facility] Weight 125.6 09/22/2017 [facility] Height 64 0 09/22/2017 [facility] Temperature Oral (F) 97.9 F 09/22/2017 [facility] Heart Rate 80 09/22/2017 [facility] Diastolic (mm Hg) 50 09/22/2017 [facility] Systolic (mm Hg) 110 09/22/2017 [facility] Weight 124 08/01/2017 [facility] Height 63 1 10/02/2016 [facility] Temperature Oral (F) 98.6 F 08/01/2017 [facility] Heart Rate 64 08/01/2017 [facility] Diastolic (mm Hg) 46 08/01/2017 [facility] Systolic (mm Hg) 98 08/01/2017 [facility] Weight 130 07/07/2017 [facility] Height 64 1 09/06/2016 [facility] Temperature Oral (F) 100.9 F 07/07/2017 [facility] Heart Rate 70 07/07/2017 [facility] Diastolic (mm Hg) 60 07/07/2017 [facility] Systolic (mm Hg) 138 07/07/2017 [facility] Weight 128 04/05/2017 [facility] Height 64 0 04/05/2017 [facility] Temperature Oral (F) 98.1 F 04/05/2017 [facility] Heart Rate 80 04/05/2017 [facility] Diastolic (mm Hg) 68 04/05/2017 [facility] Systolic (mm Hg) 160 04/05/2017 [facility] Systolic (mm Hg) 136 11/04/2016 [facility] Diastolic (mm Hg) 40 11/04/2016 [facility] Systolic (mm Hg) 145 11/04/2016 [facility] Diastolic (mm Hg) 37 11/04/2016 [facility] Systolic (mm Hg) 159 11/04/2016 [facility] Diastolic (mm Hg) 46 11/04/2016 [facility] Respitory Rate 14 11/04/2016 [facility] Respitory Rate 17 11/04/2016 [facility] Respitory Rate 17 11/04/2016 [facility] Heart Rate 72 11/04/2016 [facility] Temperature Oral (F) 97.5 F 10/28/2016 [facility] Heart Rate 54 10/28/2016 [facility] Height 162.56 cm 10/28/2016 [facility] Weight 59.545 10/28/2016 [facility] BMI Calculated 22.53 10/28/2016 [facility] Weight 129 09/10/2016 [facility] Height 64 0 09/10/2016 [facility] Temperature Oral (F) 96.9 F 09/10/2016 [facility] Heart Rate 60 09/10/2016 [facility] Diastolic (mm Hg) 60 09/10/2016 [facility] Systolic (mm Hg) 124 09/10/2016 [facility] Weight 124 03/11/2016 [facility] Height 64 0 03/11/2016 [facility] Temperature Oral (F) 98.5 F 03/11/2016 [facility] Heart Rate 64 03/11/2016 [facility] Diastolic (mm Hg) 60 03/11/2016 [facility] Systolic (mm Hg) 130 03/11/2016 [facility] Systolic (mm Hg) 124 11/24/2015 [facility] Diastolic (mm Hg) 54 11/24/2015 [facility] Systolic (mm Hg) 121 11/24/2015 [facility] Diastolic (mm Hg) 39 11/24/2015 [facility] Systolic (mm Hg) 114 11/24/2015 [facility] Diastolic (mm Hg) 31 11/24/2015 [facility] Respitory Rate 15 11/24/2015 [facility] Respitory Rate 16 11/24/2015 [facility] Respitory Rate 14 11/24/2015 [facility] Temperature Oral (F) 97.9 F 11/17/2015 [facility] Heart Rate 61 11/17/2015 [facility] BMI Calculated 21.87 11/17/2015 [facility] Weight 57.784 11/17/2015 [facility] Height 162.56 cm 11/17/2015 [facility] Systolic (mm Hg) 142 03/24/2015 [facility] Diastolic (mm Hg) 49 03/24/2015 [facility] Systolic (mm Hg) 133 03/24/2015 [facility] Diastolic (mm Hg) 46 03/24/2015 [facility] Systolic (mm Hg) 142 03/24/2015 [facility] Diastolic (mm Hg) 45 03/24/2015 [facility] Respitory Rate 15 03/24/2015 [facility] Respitory Rate 19 03/24/2015 [facility] Respitory Rate 15 03/24/2015 [facility] Heart Rate 65 03/17/2015 [facility] Temperature Oral (F) 98.4 F 03/17/2015 [facility] Height 162.56 cm 03/17/2015 [facility] BMI Calculated 22.71 03/17/2015 [facility] Weight 60 0 03/17/2015 [facility] Weight 140 12/12/2014 [facility] Height 64 0 12/12/2014 [facility] Temperature Oral (F) 98.0 F 12/12/2014 [facility] Heart Rate 70 12/12/2014 [facility] Diastolic (mm Hg) 60 12/12/2014 [facility] Systolic (mm Hg) 140 12/12/2014 [facility] Weight 135 06/13/2014 [facility] Height 64 1 [facility] Temperature Oral (F) 98.2 F 06/13/2014 [facility] Heart Rate 72 06/13/2014 [facility] Diastolic (mm Hg) 52 06/13/2014 [facility] Systolic (mm Hg) 140 06/13/2014 [facility] Weight 135 12/12/2013 [facility] Height 64 0 12/12/2013 [facility] Temperature Oral (F) 97.5 F 12/12/2013 [facility] Heart Rate 72 12/12/2013 [facility] Diastolic (mm Hg) 56 12/12/2013 [facility] Systolic (mm Hg) 114 12/12/2013 [facility] Encounters Location Location Details Encounter Type Encounter Number Reason For Visit Attending Provider ADM Date DC Date Status Source AUDIT [id number] 05/29/2013 05/29/2013 [facility] AUDIT [id number] 06/04/2013 06/04/2013 [facility] Sebastian CUTLER dakota: VANI SHIPMAN, Status: Pen, Time: 11:45 AM [id number] 06/07/20 13 06/04/2013 [facility] AUDIT [id number] 06/18/2013 06/18/2013 [facility] AUDIT [id number] 07/12/2013 07/12/2013 [facility] FUP, Provi dakota: VANI SHIPMAN, Status: Pen, Time: 12:15 PM [id number] 08/09/20 13 07/12/2013 [facility] AUDIT [id number] 08/09/2013 08/09/2013 [facility] AUDIT [id number] 08/16/2013 08/16/2013 [facility] FUP, Provi dakota: VANI SHIPMAN, Status: Pen, Time: 2:15 PM [id number] 09/05/19 14 08/16/2013 [facility] FUP, Provi dakota: VANI SHIPMAN, Status: Pen, Time: 2:15 PM [id number] 10/09/19 14 08/16/2013 [facility] AUDIT [id number] 10/09/2013 10/09/2013 [facility] AUDIT [id number] 10/25/2013 10/25/2013 [facility] FUP, Provi dakota: VANI SHIPMAN, Status: Pen, Time: 2:15 PM [id number] 11/07/19 14 10/25/2013 [facility] AUDIT [id number] 11/06/2013 11/06/2013 [facility] AUDIT [id number] 11/08/2013 11/08/2013 [facility] Martin Souza MD 6m fu [id number] 12/12/2013 12/12/2013 [facility] MD 6m fu [id number] 12/12/2013 12/12/2013 [facility] MD 6m fu [id number] 12/12/2013 12/12/2013 [facility] MD 6m fu [id number] 12/12/2013 12/12/2013 [facility] MD 6m fu [id number] 12/12/2013 12/12/2013 [facility] MD 6m fu [id number] 12/12/2013 12/12/2013 [facility] MD 6m fu [id number] 12/12/2013 12/12/2013 [facility] MD 6m fu [id number] 12/12/2013 12/12/2013 [facility] MD 6m fu [id number] 12/12/2013 12/12/2013 [facility] MD 6m fu [id number] 12/12/2013 12/12/2013 [facility] MD 6m fu [id number] 12/12/2013 12/12/2013 [facility] MD 6m fu [id number] 12/12/2013 12/12/2013 [facility] MD 6m fu [id number] 12/12/2013 12/12/2013 [facility] FULesli, Provi dakota: VANI SHIPMAN, Status: Pen, Time: 12:45 PM [id number] 01/04/20 14 11/08/2013 [facility] AUDIT [id number] 01/03/2014 01/03/2014 [facility] HE, Provi dakota: VANI SHIPMAN, Status: Pen, Time: 2:00 PM [id number] 05/01/20 14 01/03/2014 [facility] Martin Souza MD 6m fu [id number] 06/13/2014 06/13/2014 [facility] MD 6m fu [id number] 06/13/2014 06/13/2014 [facility] MD 6m fu [id number] 06/13/2014 06/13/2014 [facility] MD 6m fu [id number] 06/13/2014 06/13/2014 [facility] MD 6m fu [id number] 06/13/2014 06/13/2014 [facility] MD 6m fu [id number] 06/13/2014 06/13/2014 [facility] MD 6m fu [id number] 06/13/2014 06/13/2014 [facility] MD 6m fu [id number] 06/13/2014 06/13/2014 [facility] MD 6m fu [id number] 06/13/2014 06/13/2014 [facility] MD 6m fu [id number] 06/13/2014 06/13/2014 [facility] MD 6m fu [id number] 06/13/2014 06/13/2014 [facility] MD 6m fu [id number] 06/13/2014 06/13/2014 [facility] Souza MD [facility] [id number] 12/07/19 15 12/06/2014 [facility] MD [facility] [id number] 12/07/19 15 12/06/2014 [facility] MD [facility] [id number] 12/07/19 15 12/06/2014 [facility] MD [facility] [id number] 12/07/19 15 12/06/2014 [facility] MD [facility] [id number] 12/07/19 15 12/06/2014 [facility] MD [facility] [id number] 12/07/19 15 12/06/2014 [facility] MD [facility] [id number] 12/07/19 15 12/06/2014 [facility] MD [facility] [id number] 12/07/19 15 12/06/2014 [facility] MD [facility] [id number] 12/07/19 15 12/06/2014 [facility] MD [facility] [id number] 12/07/19 15 12/06/2014 [facility] MD [facility] [id number] 12/07/1912/06/2014 [facility] MD 6m fu [id number] 12/12/2014 12/12/2014 [facility] MD 6m fu [id number] 12/12/2014 12/12/2014 [facility] MD 6m fu [id number] 12/12/2014 12/12/2014 [facility] MD fu [id number] 12/12/2014 12/12/2014 [facility] MD fu [id number] 12/12/2014 12/12/2014 [facility] MD 6m fu [id number] 12/12/2014 12/12/2014 [facility] MD fu [id number] 12/12/2014 12/12/2014 [facility] MD 6m fu [id number] 12/12/2014 12/12/2014 [facility] MD 6m fu [id number] 12/12/2014 12/12/2014 [facility] MD 6m fu [id number] 12/12/2014 12/12/2014 [facility] MD fu [id number] 12/12/2014 12/12/2014 [facility] MD MRI [id number] 12/18/2014 12/18/2014 [facility] MD MRI [id number] 12/18/2014 12/18/2014 [facility] MD MRI [id number] 12/18/2014 12/18/2014 [facility] MD MRI [id number] 12/18/2014 12/18/2014 [facility] MD MRI [id number] 12/18/2014 12/18/2014 [facility] MD MRI [id number] 12/18/2014 12/18/2014 Castillo Souza MD MRI [id number] 12/18/2014 12/18/2014 [facility] MD MRI [id number] 12/18/2014 12/18/2014 [facility] MD MRI [id number] 12/18/2014 12/18/2014 [facility] MD MRI [id number] 12/18/2014 12/18/2014 Castillo Souza MD [facility] [id number] 12/18/2014 12/18/2014 Castillo Souza MD [facility] [id number] 12/21/19 15 12/20/2014 Castillo Souza MD [facility] [id number] 12/21/19 15 12/20/2014 MD Catalino Pitts [id number] 12/21/19 15 12/20/2014 MD Catalino Pitts [id number] 12/21/19 15 12/20/2014 Castillo Souza MD [facility] [id number] 12/21/19 15 12/20/2014 MD Catalino Pitts [id number] 12/21/19 15 12/20/2014 MD Tao Pittsia [id number] 12/21/19 15 12/20/2014 MD Tao Pittsia [id number] 12/21/19 15 12/20/2014 MD Tao Pittsia [id number] 12/21/19 15 12/20/2014 MD Toa Pittsia [id number] 12/21/19 15 12/20/2014 MD Catalino Pitts [id number] 12/21/19 15 12/20/2014 MD Catalino Pitts [id number] 01/01/20 15 12/31/2014 MD Catalino Pitts [id number] 01/01/20 15 12/31/2014 MD Catalino Pitts [id number] 01/01/20 15 12/31/2014 MD Catalino Pitts [id number] 01/01/20 15 12/31/2014 MD Catalino Pitts [id number] 01/01/20 15 12/31/2014 MD Catalino Pitts [id number] 01/01/20 15 12/31/2014 MD Catalino Pitts [id number] 01/01/20 15 12/31/2014 MD Catalino Pitts [id number] 01/01/20 15 12/31/2014 MD Catalino Pitts [id number] 01/01/20 15 12/31/2014 MD Catalino Pitts [id number] 01/01/20 15 12/31/2014 Castillo Souza MD [facility] [id number] 01/01/20 15 12/31/2014 Castillo Souza MD Appointment [id number] 01/24/20 15 01/23/2015 Castillo Souza MD Appointment [id number] 01/24/20 15 01/23/2015 Castillo Souza MD Appointment [id number] 01/24/20 15 01/23/2015 Castillo Souza MD Appointment [id number] 01/24/20 15 01/23/2015 Castillo Souza MD Appointment [id number] 01/24/20 15 01/23/2015 Castillo Souza MD Appointment [id number] 01/24/20 15 01/23/2015 Castillo Souza MD Appointment [id number] 01/24/20 15 01/23/2015 Castillo Souza MD Appointment [id number] 01/24/20 15 01/23/2015 Castillo Souza MD Appointment [id number] 01/24/20 15 01/23/2015 Castillo Souza [facility] OBS Day Surgery [id number] Dangelo Hand 03/24/2015 03/24/2015 [facility] Martin Souza MD 6m fu [id number] 06/13/2015 06/13/2015 Castillo Souza MD 6m fu [id number] 06/13/2015 06/13/2015 Castillo Souza MD 6m fu [id number] 06/13/2015 06/13/2015 Castillo Souza MD 6m fu [id number] 06/13/2015 06/13/2015 Castillo Souza MD 6m fu [id number] 06/13/2015 06/13/2015 Castillo Souza MD 6m fu [id number] 06/13/2015 06/13/2015 Castillo Souza MD 6m fu [id number] 06/13/2015 06/13/2015 Castillo Souza MD 6m fu [id number] 06/13/2015 06/13/2015 Castillo Souza MD 6m fu [id number] 06/13/2015 06/13/2015 MD nasra Pittstera [id number] 06/17/2006/17/2015 Castillo Souza MD mirtera [id number] 06/17/20 15 06/17/2015 Castillo Souza MD mirtera [id number] 06/17/20 15 06/17/2015 Castillo Souza MD mirtera [id number] 06/17/20 15 06/17/2015 Castillo Souza MD mirtera [id number] 06/17/20 15 06/17/2015 Castillo Souza MD mirtera [id number] 06/17/20 15 06/17/2015 Castillo Souza MD mirtera [id number] 06/17/20 15 06/17/2015 Castillo Souza MD mirtera [id number] 06/17/20 15 06/17/2015 Castillo Souza MD mirtera [id number] 06/17/20 15 06/17/2015 Castillo Souza MD DEXA [id number] 07/11/2015 07/11/2015 Castillo Souza MD DEXA [id number] 07/11/2015 07/11/2015 Castillo Souza MD DEXA [id number] 07/11/2015 07/11/2015 Castillo Souza MD DEXA [id number] 07/11/2015 07/11/2015 Castillo Souza MD DEXA [id number] 07/11/2015 07/11/2015 Castillo Souza MD DEXA [id number] 07/11/2015 07/11/2015 Castillo Souza MD DEXA [id number] 07/11/2015 07/11/2015 Castillo Souza MD DEXA [id number] 07/11/2015 07/11/2015 Castillo Souza MD DEXA [id number] 07/11/2015 07/11/2015 Castillo Souza [facility] [place] Out Diag Services [id number] 00 Vani Shipman 08/19/2015 08/20/2015 [facility] OBS Day Surgery [id number] Dangelo Yazan 11/24/2015 11/24/2015 [facility] Martin Souza MD Lab results [id number] 02/04/20 16 02/04/2016 Castillo Souza MD Lab results [id number] 02/04/20 16 02/04/2016 Castillo Souza MD Lab results [id number] 02/04/20 16 02/04/2016 Castillo Souza MD Lab results [id number] 02/04/20 16 02/04/2016 Castillo Souza MD Lab results [id number] 02/04/20 16 02/04/2016 Castillo Souza MD Lab results [id number] 02/04/20 16 02/04/2016 Castillo Souza MD Lab results [id number] 02/04/20 16 02/04/2016 Castillo Souza MD Lab results [id number] 02/04/20 16 02/04/2016 Castillo Souza MD Update [id number] 02/09/20 16 02/09/2016 Castillo Souza MD Update [id number] 02/09/20 16 02/09/2016 Castillo Souza MD Update [id number] 02/09/20 16 02/09/2016 Castillo Souza MD Update [id number] 02/09/20 16 02/09/2016 Castillo Souza MD Update [id number] 02/09/20 16 02/09/2016 Castillo Souza MD Update [id number] 02/09/20 16 02/09/2016 Castillo Souza MD Update [id number] 02/09/20 16 02/09/2016 Castillo Souza MD Update [id number] 02/25/20 16 02/25/2016 Castillo Souza MD Update [id number] 02/25/20 16 02/25/2016 Castillo Souza MD Update [id number] 02/25/20 16 02/25/2016 Castillo Souza MD Update [id number] 02/25/20 16 02/25/2016 Castillo Souza MD Update [id number] 02/25/20 16 02/25/2016 Castillo Souza MD Update [id number] 02/25/20 16 02/25/2016 Castillo Souza [facility] Outpatient [facility] - [place] Outpt Diag Services [id number] 01 Vanigrover Maganaton 03/03/2016 [facility] [place] Martin Souza MD Unknown [id number] 03/11/20 16 03/11/2016 Castillo Souza MD Unknown [id number] 03/11/20 16 03/11/2016 Castillo Souza MD Unknown [id number] 03/11/20 16 03/11/2016 Castillo Souza MD Unknown [id number] 03/11/20 16 03/11/2016 Castillo Souza MD Unknown [id number] 03/11/20 16 03/11/2016 Castillo Souza MD Prolia [id number] 05/06/20 16 05/06/2016 Castillo Souza MD Prolia [id number] 05/06/20 16 05/06/2016 Castillo Souza MD Prolia [id number] 05/06/20 16 05/06/2016 Castillo Souza MD Prolia [id number] 05/06/20 16 05/06/2016 Castillo Souza MD 6 MTH PROLIA [id number] 09/10/19 17 09/10/2016 Castillo Souza MD Labs [id number] 09/10/2016 09/10/2016 Castillo Souza MD Labs [id number] 09/10/2016 09/10/2016 Castillo Souza MD Labs [id number] 09/10/2016 09/10/2016 Castillo Souza MD Vitamin D [id number] 09/10/19 09/10/2016 Castillo Souza MD Vitamin D [id number] 09/10/1909/10/2016 Castillo Souza MD Vitamin D [id number] 09/10/19 17 09/10/2016 Castillo Souza [facility] Day Surgery [id number] Dangelo Hand 11/04/2016 11/04/2016 [facility] Outpatient [facility] - [place] Outpt Diag Services [id number] Vanigrover Maganaton 07/16/2017 07/17/2017 [facility] [place] [facility] Outpatient [facility] - [place] Outpt Diag Services [id number] Vanigrover Maganaton 05/02/2018 05/03/2018 [facility] [place] [facility] [place] OP Therapy Patients [id number] [facility] 05/11/2018 06/10/2018 [facility] [place] [facility] [place] [facility] [id number] [facility] 06/12/2018 07/12/2018 [facility] [place] [facility] [place] [facility] [id number] [facility] 07/13/2018 08/12/2018 [facility] [place] [facility] Out[facility] - [place] Outpt Diag Services [id number] [facility] 07/17/2018 07/18/2018 [facility] [place] [facility] [place] Outpt Diag Services [id number] [facility] 07/19/2019 07/20/2019 [facility] [place] Procedures Procedure Code Date Perfomer Comments Source Abdominal hysterectomy [id number] [facility] [place],[facility] [place], [facility] [place] Appendectomy [id number] RADHAD [place],[facility] [place], [facility] [place] Cholecystectomy [id number] BOB [facility] [place], [facility] [place] Colonoscopy [id number] BOB Hung,[facility] [place], [facility] [place] Excision of ganglion cyst [phone] BOB CHELSEA Hung,[facility] CHELSEA Yu [place] Assessment and Plan No Data Provided for This Section Plan of Care Plan of Care Date Source Medication Use 06/14/2013 Routine 01/03/2014 [facility] Medication Use 06/14/2013 Routine 11/08/2013 [facility] Medication Use 06/14/2013 Routine 11/06/2013 [facility] Medication Use 06/14/2013 Routine 10/25/2013 [facility] Medication Use 06/14/2013 Routine[QLH] T SH, 3RD GENERATION W/REFLEX TO FT4 10/09/2013 Routine[QLH] LIPID PANEL 10/09/2013 Routine[QLH] HEMOGLOBIN A1c 10/09/2013 Routine[QLH] CMP W/EGFR 10/09/2013 Routine[QLH] CBC (INCLUDES DIFF/PLT) 10/09/2013 Routine 10/09/2013 [facility] Medication Use 06/14/2013 Routine 08/16/2013 [facility] Medication Use 06/14/2013 Routine 08/09/2013 [facility] Medication Use 06/14/2013 Routine 07/12/2013 [facility] Medication Use 06/14/2013 RoutineENT Ref erral 06/18/2013 Routine 06/18/2013 [facility] Social History Social History Date Source Social History TypeResponse Alcohol Never Smoking Status Never smoker; Exposure to Tobacco Smoke None; Cigarette Smoking Last 365 Days No; Reg Smoking Cessation Counseling No entered on: 11/04/16 10/28/2016 [facility] [place] Social History TypeResponse Alcohol Never Smoking Status Never smoker; Exposure to Tobacco Smoke None; Cigarette Smoking Last 365 Days No; Reg Smoking Cessation Counseling No entered on: 11/04/16 10/28/2016 [facility] Social History TypeResponse Alcohol Never Smoking Status Never smoker; Exposure to Tobacco Smoke None; Cigarette Smoking Last 365 Days No; Reg Smoking Cessation Counseling No 10/28/2016 [facility] Social History TypeResponse Alcohol Never Smoking Status Never smoker; Exposure to Tobacco Smoke None; Cigarette Smoking Last 365 Days No; Reg Smoking Cessation Counseling No entered on: 11/04/16 10/28/2016 RAMESH Hung Social History ElementQualifiersDate Rep orted Caffeine: yes. frequency:, 1-5 Sep 10, 2016 Exercise: yes. walking Sep 10, 2016 Alcohol: no. Sep 10, 2016 09/10/2016 Castillo Souza Marital History - Currently (Active) Never A Smoker (Active) Never Drank Alcohol (Active) 01/03/2014 [facility] Family History Value Date S ource Maternal history of Ovarian Cancer (V16. 41); (Active) Maternal history of Hypertension (V17.49); (Active) Paternal history of Lung Cancer (V16.1); (Active) 01/03/2014 [facility] Maternal history of Ovarian Cancer (V16. 41); (Active) Maternal history of Hypertension (V17.49); (Active) Paternal history of Lung Cancer (V16.1); (Active) 11/08/2013 [facility] Maternal history of Ovarian Cancer (V16. 41); (Active) Maternal history of Hypertension (V17.49); (Active) Paternal history of Lung Cancer (V16.1); (Active) 11/06/2013 [facility] Maternal history of Ovarian Cancer (V16. 41); (Active) Maternal history of Hypertension (V17.49); (Active) Paternal history of Lung Cancer (V16.1); (Active) 10/25/2013 [facility] Maternal history of Ovarian Cancer (V16. 41); (Active) Maternal history of Hypertension (V17.49); (Active) Paternal history of Lung Cancer (V16.1); (Active) 10/09/2013 [facility] Maternal history of Ovarian Cancer (V16. 41); (Active) Maternal history of Hypertension (V17.49); (Active) Paternal history of Lung Cancer (V16.1); (Active) 08/16/2013 [facility] Maternal history of Ovarian Cancer (V16. 41); (Active) Maternal history of Hypertension (V17.49); (Active) Paternal history of Lung Cancer (V16.1); (Active) 08/09/2013 [facility] Maternal history of Ovarian Cancer (V16. 41); (Active) Maternal history of Hypertension (V17.49); (Active) Paternal history of Lung Cancer (V16.1); (Active) 07/12/2013 [facility] Maternal history of Ovarian Cancer (V16. 41); (Active) Maternal history of Hypertension (V17.49); (Active) Paternal history of Lung Cancer (V16.1); (Active) 06/18/2013 [facility] Maternal history of Ovarian Cancer (V16. 41); (Active) Maternal history of Hypertension (V17.49); (Active) Paternal history of Lung Cancer (V16.1); (Active) 06/04/2013 [facility] Maternal history of Ovarian Cancer (V16. 41); (Active) Maternal history of Hypertension (V17.49); (Active) Paternal history of Lung Cancer (V16.1); (Active) 05/29/2013 [facility] Advance Directives Order Name Results Value Date Source Advance Directives Advance Dir ectives No Advance Directives available. 01/03/2014 [facility] Advance Directives Advance Dir ectives No Advance Directives available. 11/08/2013 [facility] Advance Directives Advance Dir ectives No Advance Directives available. 11/06/2013 [facility] Advance Directives Advance Dir ectives No Advance Directives available. 10/25/2013 [facility] Advance Directives Advance Dir ectives No Advance Directives available. 10/09/2013 [facility] Advance Directives Advance Dir ectives No Advance Directives available. 08/16/2013 [facility] Advance Directives Advance Dir ectives No Advance Directives available. 08/09/2013 [facility] Advance Directives Advance Dir ectives No Advance Directives available. 07/12/2013 [facility] Advance Directives Advance Dir ectives No Advance Directives available. 06/18/2013 [facility] Advance Directives Advance Dir ectives No Advance Directives available. 06/04/2013 [facility] Advance Directives Advance Dir ectives No Advance Directives available. 05/29/2013 [facility] Functional Status No Data Provided for This Section
--- OUTSIDE RECORDS SUMMARY | 2020-01-27 11:03 | XMS REPORT ---
Author Author MIGUEL Gorman Organization Unknown Address Unknown Phone Care Team Providers Care Sustainability Analyst Name Role Phone Aida Gorman PP Unavailable [...] No Advance Directives available. Encounters * AUDIT 11/08/2013 * [facility], Provider: VANI ROSADO, Status: Ryan, Time: 12:45 PM 01/03/2014
--- OUTSIDE RECORDS SUMMARY | 2020-01-27 11:03 | XMS REPORT ---
Author Author MIGUEL Coles Organization Unknown Address Unknown Phone Care Team Providers Care Director Teen Post Name Role Phone VaishaligroveradriannajagPatricia edmond PP Reason for Referral No Reason for Referral [...] MG Oral Capsule Delayed Release (Active) * Losartan Potassium 25 MG Oral Tablet (Active) * Atorvastatin Calcium 10 MG Oral Tablet (Active) * AmLODIPine Besylate 5 MG Oral [...] No Advance Directives available. Encounters * AUDIT 05/29/2013 * [facility], Provider: VANI ROSADO, Status: Ryan, Time: 11:45 AM 06/07/2013
--- OUTSIDE RECORDS SUMMARY | 2020-01-27 11:03 | XMS REPORT ---
Author Author Sherif MIGUEL M Organization Unknown Address Unknown Phone Care Team Providers Care Leather Fitter Name Role Phone Aida Gorman PP Unavailable Reason for Referral No Reason for Referral was given. History of Present Illness No HPI available. Problems * Hypothyroidism (244.9); (Active) * Essential Hypertension (401.9); (Active) * Chronic Kidney Disease, Stage 2 (585.2); (Active) * Vaccines Prophylactic Need Against Influenza (V04.81); (Active) * Normal Routine History And Physical Senior Citizen (65-80) (V70.0); ( Active) * Fainting - Unconscious About 1-5 Minutes (780.2); (Active) * Diabetes Mellitus Under Control (250.00); (Active) * Nonspecific Abnormal Results Of Function Studies (794.9); (Active) Medication * Glimepiride 1 MG Oral [...] 1 TABLET DAILY. (Active) * Fish Oil CAPS; TAKE 2 CAPSULE DAILY (Active) * Nubia Allergy 180 MG Oral Tablet; TAKE 1 TABLET DAILY NEEDED. (Active) * Integra Plus CAPS; TAKE 1 CAPSULE DAILY (Active) * AmLODIPine Besylate 5 MG Oral Tablet; TAKE 1 TABLET DAILY. (Active) Allergies and Adverse Reactions * No [...] Treatment Plan * Medication Use 06/14/2013 Routine * ENT Referral 06/18/2013 Routine Advance Directives * No Advance Directives available. Encounters * AUDIT 06/18/2013 * [facility], Provider: VANI ROSADO, Status: Ryan, Time: 2:15 PM 09/05/2013
--- OUTSIDE RECORDS SUMMARY | 2020-01-27 11:03 | XMS REPORT ---
Author Author MIGUEL Harris Organization Unknown Address Unknown Phone Care Team Providers Care Front End Java Developer Name Role Phone Ann Marie Harris PP Unavailable Reason for Referral No Reason [...] Capsule; take 2 capsules daily (Active) * AmLODIPine Besylate 5 MG Oral Tablet; TAKE 1 TABLET TWICE DAILY. (Active) * Fenofibrate 48 MG Oral Tablet; TAKE ONE TABLET BY MOUTH EVERY DAY; Start Date: 08/16/2013; End Date: (Active) * PARoxetine HCl 10 MG Oral [...] Plan * Medication Use 06/14/2013 Routine * [[facility]] TSH, 3RD GENERATION W/REFLEX TO FT4 10/09/2013 Routine * [[facility]] LIPID PANEL 10/09/2013 Routine * [QL] HEMOGLOBIN A1c 10/09/2013 Routine * [QL] CMP W/EGFR 10/09/2013 Routine * [[facility]] CBC (INCLUDES DIFF/PLT) 10/09/2013 Routine Advance Directives * No Advance Directives available. Encounters * AUDIT 10/09/2013
--- OUTSIDE RECORDS SUMMARY | 2020-01-27 11:03 | XMS REPORT ---
Author Author MIGUEL Gorman Organization Unknown Address Unknown Phone Care Team Providers Care Exchange Administrator Name Role Phone Aida Gorman PP Unavailable [...] Start Date: 06/04/2013; End Date: (Active) * Cyanocobalamin 1000 MCG/ML Injection Solution; INJECT 1 ML INTRAMUSCULARLY ONCE A MONTH (Active) * Nubia Allergy 180 MG Oral Tablet; TAKE 1 TABLET DAILY NEEDED. (Active) * AmLODIPine Besylate 5 MG Oral Tablet; TAKE 1 TABLET TWICE DAILY. (Active) * Fish Oil Concentrate 1000 MG Oral Capsule; take 2 capsules daily (Active) * Fenofibrate 48 MG Oral Tablet; TAKE ONE TABLET BY MOUTH EVERY DAY; Start Date: 08/16/2013; End Date: (Active) * Clopidogrel Bisulfate 75 MG Oral [...] No Advance Directives available. Encounters * AUDIT 08/16/2013 * [facility], Provider: VANI ROSADO, Status: Ryan, Time: 2:15 PM 09/05/2013 * [facility], Provider: VANI ROSADO, Status: Ryan, Time: 2:15 PM 10/09/2013
--- OUTSIDE RECORDS SUMMARY | 2020-01-27 11:04 | XMS REPORT ---
Author Author MIGUEL Souza Organization [employer] Address Unknown Phone Unavailable Care Team Providers Care Senior Stack Engineer Name Role Phone Martin Souza CP Unavailable Allergies No Known Allergies Problems Problem Type Condition Code Onset Dates Condition Statu s Problem Muscle spasm M62.838 Active Problem ESRD (end stage renal disease) N18.6 Active Problem Osteopenia of multiple sites M85.89 Active Problem Other long term acute care registered nurse (current) drug therapy Z79.899 Active Problem Rheumatoid arthritis of multiple sites without r heumatoid factor M06.09 Active Problem Vitamin D deficiency E55.9 Active Problem Osteoporosis M81.0 Active Medications No Known Medications Results No Known Results Summary Purpose [employer] Submission
--- OUTSIDE RECORDS SUMMARY | 2020-01-27 11:04 | XMS REPORT ---
Author Author MIGUEL Souza Organization [employer] Address Unknown Phone Unavailable Care Team Providers Care Personnel Analyst Name Role Phone Martin Souza CP Unavailable Allergies No Known Allergies Problems Problem Type Condition Code Onset Dates Condition Statu s Problem Muscle spasm M62.838 Active Problem ESRD (end stage renal disease) N18.6 Active Problem Osteopenia of multiple sites M85.89 Active Problem Other bisque placer (current) drug therapy Z79.899 Active Problem Rheumatoid arthritis of multiple sites without r heumatoid factor M06.09 Active Problem Vitamin D deficiency E55.9 Active Problem Osteoporosis M81.0 Active Medications Medication Code System Code Instructions Start Date End Date Status Dosage Prolia [facility] [id number] 60 MG/ML Subcutaneous q 6 months Oct 05 201 9 Active as directed Results No Known Results Summary Purpose [employer] Submission
--- OUTSIDE RECORDS SUMMARY | 2020-01-27 11:04 | XMS REPORT | Summary of Care ---
Author Author [facility] Address Unknown Phone Unavailable Encounter HQ Uriel_romelia(FIN) [id number] Date(s): 06/12/18 - 07/11/18 [facility] Encounter Diagnosis Cervicalgia (Final) - 07/15/18 Weakness (Final) - Abnormal posture (Final) - Discharge Disposition: Home or Self Care Attending Physician: Rodney Shipman MD Vital Signs No data available for this section Problem List Condition Effective Dates Status Health Status Informan t Acid Active reflux(Confirmed) Anemia of chronic Active renal failure(Confirmed) Anxiety(Confirmed) Active DM - Diabetes Active mellitus(Confirmed) [facility] - Hard of Active hearing(Confirmed) HTN - Active Hypertension(Confirm ed) Hypercholesterolemia Active (Confirmed) Hypertriglyceridemia Active (Confirmed) Hypothyroid(Confirme Active d) Renal failure Active syndrome(Confirmed) Ventral Active hernia(Confirmed) Allergies, Adverse Reactions, Alerts Substance Reaction Severity Status Plavix Active Medications No data available for this section Results No data available for this section Immunizations No data available for this section Procedures Procedure Date Related Diagnosis Body Site Status Abdominal hysterectomy Completed Appendectomy Completed Cholecystectomy Completed Colonoscopy Completed Excision of ganglion cyst Completed Social History Social History Type Response Alcohol Never Smoking Status Never smoker; Exposure to T obacco Smoke None; Cigarette Smoking Last 365 Days No; Reg Smoking Cessation Counseli ng No entered on: 11/04/16 Assessment and Plan No data available for this section
--- OUTSIDE RECORDS SUMMARY | 2020-01-27 11:04 | XMS REPORT ---
Author Author MIGUEL Souza Organization [employer] Address Unknown Phone Unavailable Care Team Providers Care Billposter Name Role Phone Martin Souza CP Unavailable Allergies No Known Allergies Problems Problem Type Condition Code Onset Dates Condition Statu s Assessment Other senior care (current) drug therapy Z79.899 Active Assessment Rheumatoid arthritis of multiple sites w ithout rheumatoid factor M06.09 Active Problem Muscle spasm M62.838 Active Problem ESRD (end stage renal disease) N18.6 Active Problem Osteopenia of multiple sites M85.89 Active Problem Other [employer] customer service (current) drug therapy Z79.899 Active Problem Rheumatoid arthritis of multiple sites without r heumatoid factor M06.09 Active Problem Vitamin D deficiency E55.9 Active Problem Osteoporosis M81.0 Active Assessment Muscle spasm M62.838 Active Assessment ESRD (end stage renal disease) N18.6 Active Assessment Vitamin D deficiency E55.9 Active Assessment Osteopenia of multiple sites M85.89 Active Assessment Osteoporosis M81.0 Active Medications No Known Medications Results No Known Results Summary Purpose [employer] Submission
--- OUTSIDE RECORDS SUMMARY | 2020-01-27 11:04 | XMS REPORT ---
Author MIGUEL Campbell Organization [employer] Address Unknown Phone Unavailable Care Team Providers Care Mechanical Laboratory Technician Name Role Phone Tatianna Stone CP Unavailable Allergies, Adverse Reactions, Alerts Substance Reaction Event Type Plavix rash Drug Allergy Fosamax severe muscle cramping Non Drug Allergy Problems Problem Type Condition Code Onset Dates Condition Statu s Assessment Osteoporosis M81.0 Active Assessment Rheumatoid arthritis of multiple sites w ithout rheumatoid factor M06.09 Active Assessment Vitamin D deficiency E55.9 Active Assessment Trigger finger of left hand, unspecified finger M65.30 Active Problem Muscle spasm M62.838 Active Problem ESRD (end stage renal disease) N18.6 Active Problem Osteopenia of multiple sites M85.89 Active Problem Other fci (current) drug therapy Z79.899 Active Problem Rheumatoid arthritis of multiple sites without r heumatoid factor M06.09 Active Problem Vitamin D deficiency E55.9 Active Problem Osteoporosis M81.0 Active Medications Medication Code System Code Instructions Start Date End Date Status Dosage Aspirin [facility] [address]-06 81 MG Orally every night A ctive 2 tablets Levothyroxine Sodium ND 51349305598 75 MCG Orally Once a day Active 1 tablet Nubia NDC 0 160 MG Orally Once a day Active 1 tablet as needed Metoprolol Tartrate ND 20814070930 50 MG Orally Once a day Active 1 tablet Famotidine ND 62025785396 20 MG Orally Twice a day Active 1 tablet as needed Atorvastatin Calcium ND 25660163776 20 MG Orally Once a day Active 1 [place] [address]-92 5 MG Orally Once a day Active 1 tablet Prolia ND 46966401465 60 MG/ML Subcutaneous q 6 months Oct 05 9 Active as directed Pantoprazole Sodium ND 32696478366 40 MG Orally Once a day Active 1 tablet Sensipar ND 76237702853 30 MG Orally Once a day Act bhavna 1 tablet with food or after a meal Vital Signs Date/Time: Jul 24, 2019 BMI 20.31 Index Weight 117.4 lbs Height 63.75 in Temperature 98.2 F Cardiac Monitoring Heart Rate 68 /min Blood Pressure Diastolic 40 mm Hg Blood Pressure Systolic 114 mm Hg Results No Known Results Summary Purpose [employer] Submission
--- OUTSIDE RECORDS SUMMARY | 2020-01-27 11:04 | XMS REPORT ---
Author Author MIGUEL Souza Organization [employer] Address Unknown Phone Unavailable Care Team Providers Care Packager And Strapper Name Role Phone Martin Souza CP Unavailable Allergies No Known Allergies Problems Problem Type Condition Code Onset Dates Condition Statu s Problem Muscle spasm M62.838 Active Problem ESRD (end stage renal disease) N18.6 Active Problem Osteopenia of multiple sites M85.89 Active Problem Other web applications programmer (current) drug therapy Z79.899 Active Problem Rheumatoid arthritis of multiple sites without r heumatoid factor M06.09 Active Problem Vitamin D deficiency E55.9 Active Problem Osteoporosis M81.0 Active Medications No Known Medications Results No Known Results Summary Purpose [employer] Submission
--- OUTSIDE RECORDS SUMMARY | 2020-01-27 11:04 | XMS REPORT ---
Author Author MIGUEL Souza Organization [employer] Address Unknown Phone Unavailable Care Team Providers Care Spot Billing Clerk Name Role Phone Martin Souza CP Unavailable Allergies No Known Allergies Problems Problem Type Condition Code Onset Dates Condition Statu s Problem Muscle spasm M62.838 Active Problem ESRD (end stage renal disease) N18.6 Active Problem Osteopenia of multiple sites M85.89 Active Problem Other termite inspector (current) drug therapy Z79.899 Active Problem Rheumatoid arthritis of multiple sites without r heumatoid factor M06.09 Active Problem Vitamin D deficiency E55.9 Active Problem Osteoporosis M81.0 Active Medications No Known Medications Results No Known Results Summary Purpose [employer] Submission
--- OUTSIDE RECORDS SUMMARY | 2020-01-27 11:04 | XMS REPORT ---
Author Author MIGUEL Souza Organization [employer] Address Unknown Phone Unavailable Care Team Providers Care [place] Instructor Name Role Phone Martin Souza CP Unavailable Allergies No Known Allergies Problems Problem Type Condition Code Onset Dates Condition Statu s Problem Muscle spasm M62.838 Active Problem ESRD (end stage renal disease) N18.6 Active Problem Osteopenia of multiple sites M85.89 Active Problem Other terminal gauger supervisor (current) drug therapy Z79.899 Active Problem Rheumatoid arthritis of multiple sites without r heumatoid factor M06.09 Active Problem Vitamin D deficiency E55.9 Active Problem Osteoporosis M81.0 Active Medications Medication Code System Code Instructions Start Date End Date Status Dosage Vitamin D (Ergocalciferol) [facility] NAMED [facility] [id number] UNIT Ora lly once a week November 13, 2018 Active 1 capsule Results No Known Results Summary Purpose [employer] Submission
--- OUTSIDE RECORDS SUMMARY | 2020-01-27 11:04 | XMS REPORT | Summary of Care ---
Author Author [facility] Address Unknown Phone Unavailable Encounter HQ Uriel_romelia(FIN) [id number] Date(s): 05/11/18 - 06/09/18 [facility] Encounter Diagnosis Cervicalgia (Final) - 06/15/18 Weakness (Final) - Abnormal posture (Final) - Discharge Disposition: Home or Self Care Attending Physician: Rodney Shipman MD Vital Signs No data available for this section Problem List Condition Effective Dates Status Health Status Informan t Acid Active reflux(Confirmed) Anemia of chronic Active renal failure(Confirmed) Anxiety(Confirmed) Active DM - Diabetes Active mellitus(Confirmed) [place] - Hard of Active hearing(Confirmed) HTN - [...]
--- OUTSIDE RECORDS SUMMARY | 2020-01-27 11:04 | XMS REPORT ---
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
--- OUTSIDE RECORDS SUMMARY | 2020-01-27 11:04 | XMS REPORT | Summary of Care ---
Author Author [facility] Address Unknown Phone Unavailable Encounter HQ Vanr_romelia(FIN) [id number] Date(s): 07/13/18 - 08/11/18 [facility] Encounter Diagnosis Cervicalgia (Final) - 08/17/18 Muscle weakness (generalized) (Final) - Abnormal posture (Final) - Discharge Disposition: Home or Self Care Attending Physician: Rodney Shipman MD Vital Signs No data available for this section Problem List Condition Effective Dates Status Health Status Informan t Acid Active reflux(Confirmed) Anemia of chronic Active renal failure(Confirmed) Anxiety(Confirmed) Active DM - Diabetes Active mellitus(Confirmed) [place] - Hard of Active hearing(Confirmed) HTN - [...]
--- OUTSIDE RECORDS SUMMARY | 2020-01-27 11:04 | XMS REPORT | Summary of Care ---
Author Author [facility] - [facility] Organization [facility] Address Unknown Phone Unavailable Encounter HQ Louie(FIN) [id number] Date(s): 07/19/19 - 07/19/19 [facility] Outpatient Imaging - [place] [address] [place], [place] [address] [phone] Encounter Diagnosis Encounter for screening mammogram for malignant neoplasm of breast (Final) - Discharge Disposition: Home or Self Care Attending Physician: Rodney Shipman MD Referring Physician: Rodney Shipman MD Vital Signs No data available for this section Problem List Condition Effective Dates Status Health Status Informan t Acid Active reflux(Confirmed) Anemia of chronic Active renal failure(Confirmed) Anxiety(Confirmed) Active DM - Diabetes Active mellitus(Confirmed) [place] - Hard of Active hearing(Confirmed) HTN - [...]
--- OUTSIDE RECORDS SUMMARY | 2020-01-27 11:04 | XMS REPORT | Summary of Care ---
Author Author [facility] Outpatient Imaging - [facility] Organization [facility] - [facility] Address Unknown Phone Unavailable Encounter HQ Louie(FIN) [id number] Date(s): 05/02/18 - 05/02/18 [facility] Outpatient Imaging [address], [address] [place] [phone] Encounter Diagnosis Cervicalgia (Final) - 05/08/18 Spondylolisthesis, cervical region (Final) - Discharge Disposition: Home or Self Care Attending Physician: Rodney Shipman MD Referring Physician: Rodney Shipman MD Vital Signs No data available for this section Problem List Condition Effective Dates Status Health Status Informan t Acid Active reflux(Confirmed) Anemia of chronic Active renal failure(Confirmed) Anxiety(Confirmed) Active DM - Diabetes Active mellitus(Confirmed) [place] - Hard of Active hearing(Confirmed) HTN - [...]
--- OUTSIDE RECORDS SUMMARY | 2020-01-27 11:04 | XMS REPORT | Summary of Care ---
Author Author [facility] Outpatient Imaging - [facility] Organization [facility] Address Unknown Phone Unavailable Encounter HQ Louie(FIN) [id number] Date(s): 07/17/18 - 07/17/18 [facility] Outpatient Imaging [facility] [address] [place] [phone] Encounter Diagnosis Encounter for screening mammogram for malignant neoplasm of breast (Final) - 07/19/18 Discharge Disposition: Home or Self Care Attending Physician: Rodney Shipman MD Referring Physician: Rodney Shipman MD Vital Signs No data available for this section Problem List Condition Effective Dates Status Health Status Informan t Acid Active reflux(Confirmed) Anemia of chronic Active renal failure(Confirmed) Anxiety(Confirmed) Active DM - Diabetes Active mellitus(Confirmed) [place] - Hard of Active hearing(Confirmed) HTN - [...]
--- OUTSIDE RECORDS SUMMARY | 2020-01-27 11:04 | XMS REPORT ---
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
--- OUTSIDE RECORDS SUMMARY | 2020-01-27 11:06 | XMS REPORT ---
Author Author [facility] t Organization [facility] t Address [address] [place] [address] Phone Unavailable Care Team Providers Care Jawbone Puller Name Role Phone RODNEY SHIPMAN MD PCP Khadar GREENE Attphys Unavailable RODNEY SHIPMAN Attphys Unavailable Tracey Shipman Attphys Khadar HATHAWAY Attphys Unavailable Jamila DAMON Attphys Unavailable Adan Hand Attphys RODNEY SHIPMAN Admphys Unavailable Khadar HATHAWAY Admphys Unavailable Payers Payer Name Policy Type Policy Number Effective Date Expiration Date S [facility] Medicare [id number] 2013 00:00:00 [facility] Problems Condition Name Condition Details Condition Category Status Onset Date Resolution Date Last Treatment Date Treating Clinician Comments Source CERVICAL CERV ICAL Active 05/11/2018 [facility] Diagnosis Active 2018-05-11 08:00:00 2018-07-13 21:49:00 [facility] UNK UNK Active 10/18/2016 [facility] Active 2016-10-18 00:00:00 2016-11-04 05:56:00 [facility] Z12.31 - ENCNTR SCREEN MAMMOGRAM FOR MA Z12.31 - ENCNTR SCREEN MAMMOGRAM FOR MA Active 07/30/2015 [facility] [place] Diagnosis Active 2015-07-30 00:01:00 2015-08-19 14:20:00 M H [facility] [place] 585.4 585. 4 Active 03/04/2015 [facility] Diagnosis Active 2015-03-04 00:00:00 2015-03-24 09:19:00 [facility] 585.2 585. 2 Active 07/30/2014 [facility] Diagnosis Active 2014-07-30 00:00:00 2014-10-18 13:32:00 [facility] Transient cerebral ischemia TIA (transient ischemic attack) Problem Active [facility] Peritoneal dialysis catheter dysfunction Peritoneal di alysis catheter dysfunction Problem Active [facility] Mechanical complication due to peritoneal dialysis cat heter Peritoneal dialysis catheter mechanical complication Problem Active [facility] Ataxia Ataxia Problem Active [facility] End-stage renal disease on peritoneal dialysis ESRD on perit kincaid dialysis Problem Active [facility] Hypothyroidism Hypo thyroidism Active 01/03/2014 [facility] Problem Active 2014-01-03 19:04:04 [facility] Essential Hypertension Esse ntial Hypertension Active 01/03/2014 [facility] Problem Active 2014-01-03 19:04:04 [facility] Chronic Kidney Disease, Stage 2 Chronic Kidney Disease, Stage 2 Active 01/03/2014 [facility] Problem Active 19:04:04 [facility] Vaccines Prophylactic Need Against Influenza Vaccines Prophylactic Need Against Influenza Active 11/08/2013 [facility] Problem Active 2013-11-08 13:32:05 [facility] Fainting - Unconscious About 1-5 Minutes Fainting - Unconscious About 1-5 Minutes Active 06/18/2013 [facility] Problem Active 2013-06-18 16:04:19 [facility] Diabetes Mellitus Under Control Diabetes Mellitus Under Control Active 01/03/2014 [facility] Problem Active 19:04:04 [facility] Nonspecific Abnormal Results Of Function Studies Nonspecific Abnormal Results Of Function Studies Active 11/08/2013 [facility] Problem Active 2013-11-08 13:32:05 [facility] Automatism Auto matism Active 11/08/2013 [facility] Problem Active 2013-11-08 13:32:05 [facility] Transient Global Amnesia Mejia sient Global Amnesia Active 11/08/2013 [facility] Problem Active 2013-11-08 13:32: 05 [facility] Anxiety Disorder NOS Anxi ety Disorder NOS Active 01/03/2014 [facility] Problem Active 2014-01-03 19:04:04 [facility] Vitamin B12 Deficiency Corinna min B12 Deficiency Active 01/03/2014 [facility] Problem Active 2014-01-03 19:04:04 [facility] Hyperlipidemia Hype rlipidemia Active 01/03/2014 [facility] Problem Active 2014-01-03 19:04:04 [facility] Esophageal Reflux Esop hageal Reflux Active 01/03/2014 [facility] Problem Active 2014-01-03 19:04:04 [facility] Urinary Incontinence Urin kenn Incontinence Active 01/03/2014 [facility] Problem Active 2014-01-03 19:04:04 [facility] Vitamin D deficiency Corinna min D deficiency Active Problem 12/07/2019 [facility] Problem Active 2019-12-07 03:02:17 [facility] Osteoporosis Oste oporosis Active Problem 12/07/2019 [facility] Problem Active 2019-12-07 03:02:17 [facility] ESRD (end stage renal disease) ESRD (end stage renal disease) Active Problem 12/07/2019 [facility] Problem Active 2019-12-07 03:02:17 Castillonuha Souza Other mcfp (current) drug therapy 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 Active Problem 12/07/2019 [facility] Problem Ac tive 2019-12-07 03:02:17 [facility] Burrows becca Rheumatoid arthritis of multiple sites without rheumat oid factor Rheumatoid arthritis of multiple sites without rheumatoid factor Active Problem 12/07/2019 [facility] Problem Active 2019-12-07 03 :02:17 [facility] Muscle spasm Musc le spasm Active Problem 12/07/2019 [facility] Problem Active 2019-12-07 03:02:17 [facility] Osteopenia of multiple sites O steopenia of multiple sites Active Problem 12/07/2019 [facility] Problem Active 2019-12-07 03:02:17 [facility] Long-term (current) use of other medications - High Ri sk Long-term (current) use of other medications - High Risk Active Problem 07/23/2015 [facility] Problem Active 2015-07-23 03:59:37 [facility] Unspecified vitamin D deficiency Unspecified vitamin D deficiency Active Problem 07/23/2015 [facility] Problem Active 2015-07-23 03:59:37 [facility] RENAL INSUFFICIENCY SP L INSUFFICIENCY Active Problem 07/23/2015 [facility] Problem Active 2015-07-23 03:59:37 [facility] Osteoporosis, postmenopausal O steoporosis, postmenopausal Active Problem 07/23/2015 [facility] Problem Active 2015-07-23 03:59:37 [facility] Cramp of limb Cram p of limb Active Problem 07/23/2015 [facility] Problem Active 2015-07-23 03:59:37 [facility] Osteoarthrosis, multiple sites Osteoarthrosis, multiple sites Active Problem 07/23/2015 [facility] Problem Active 2015-07-23 03:59:37 [facility] Rheumatoid arthritis Rheu matoid arthritis Active Problem 07/23/2015 [facility] Problem Active 2015-07-23 03:59:37 [facility] Osteopenia Oste openia Active Problem 09/05/2014 [facility] Problem Active 2014-09-05 06:02:46 [facility] Age related osteoporosis Age related osteoporosis Active Diagnosis 03/16/2016 [facility] Diagnosis Active 2016-03-16 02:55:00 [facility] Trigger finger of left hand, unspecified finger Trigger finger of left hand, unspecified finger Active Diagnosis 09/15/2019 [facility] Diagnosis Active 2019-09-15 03:47:23 Ph eve Souza Gastroesophageal reflux disease (disorder) Gastroesophageal reflux disease (disorder) Active Problem 07/22/2019 BOB Oliver,[facility] Tracy, [facility] [employer] Problem Active 2019-07-22 00:09:36 BOB Oliver, [facility], [facility] Tracy, OP[facility] [employer] Anemia of chronic renal failure (disorder) Anemia of chronic renal failure (disorder) Active Problem 07/22/2019 [facility] Tracy, OP[facility] [employer] Problem Active 2019-07-22 00:09:36 BOB Oliver [facility], [facility] Tracy, OPID [employer] Diabetes mellitus (disorder) D iabetes mellitus (disorder) Active Problem 07/22/2019 [facility] Tracy, OP[facility] [employer] Problem Active 2019-07-22 00:09:36 BOB Oliver [facility], [facility] [employer] Hearing loss (finding) Hear ing loss (finding) Active Problem 07/22/2019 [facility] Tracy, [facility] [employer] Problem Active 2019-07-22 00:09:36 [facility] [place], [facility], [facility] Tracy, [facility] [employer] Hypertensive disorder, systemic arterial (disorder) Hypertensive disorder, systemic arterial (disorder) Active Problem 07/22/2019 [facility] [place], [facility], [facility] Tracy, [facility] [employer] Problem Active 2019-07-22 00:09:36 [facility] [place], [facility], [facility] Tracy, [facility] [employer] Hypercholesterolemia (disorder) Hypercholesterolemia (disorder) Active Problem 07/22/2019 [facility] [place], [facility], [facility] Tracy, [facility] [employer] Problem Active 2019-07-22 00:09:36 [facility] [place], [facility], [facility] [place], [facility] [employer] Hypertriglyceridemia (disorder) Hypertriglyceridemia (disorder) Active Problem 07/22/2019 [facility] [place], [facility], [facility] Tracy, [facility] [employer] Problem Active 2019-07-22 00:09:36 [facility] [place], [facility], [facility] Tracy, OPID [employer] Hypothyroidism (disorder) Hypo thyroidism (disorder) Active Problem 07/22/2019 [facility] [place], [facility], [facility] Tracy, [facility] [employer] Problem Active 2019-07-22 00:09:36 O PID [place], [facility], [facility] Tracy, [facility] [employer] Renal failure syndrome (disorder) Renal failure syndrome (disorder) Active Problem 07/22/2019 [facility] [place], [facility], [facility] Tracy, [facility] [employer] Problem Active 2019-07-22 00:09:36 [facility] [place], [facility], [facility] Tracy, [facility] [employer] Incisional hernia of anterior abdominal wall (disorder ) Incisional hernia of anterior abdominal wall (disorder) Active Problem 07/22/2019 [facility] [place], [facility], [facility] Tracy, [facility] [employer] Problem Active 2019-07-22 00:09:36 [facility] [place], [facility], [facility], [facility] [employer] Anxiety (finding) Anxi ety (finding) Active Problem 07/22/2019 BOB [place], [facility] Tracy, OPID [employer] Problem Active 2019-07-22 00:09:36 BOB [place], [facility], [facility] Tracy, OP[facility] [employer] Weakness Weak ness 01/29/2019 [facility] Tracy Problem 2019-01-29 11:39:50 [facility] [place] Abnormal posture Abno rmal posture 03/01/2019 [facility] Tracy Problem 2019-03-01 11:34:53 [facility] Tracy Encounter for screening mammogram for malignant neopla sm of breast Encounter for screening mammogram for malignant neoplasm of breast 07/22/2019 RADHAD Tracy Problem 2019-07-22 00:09:36 BOB Tracy Spondylolisthesis, cervical region Spondylolisthesis, cervical region 11/19/2018 [facility] [employer] Problem 2018-11-19 14:24:21 [facility] [employer] Muscle weakness (generalized) Muscle weakness (generalized) 03/01/2019 [facility] Tracy Problem 2019-02 11:34:53 [facility] Tracy CHRONIC KIDNEY DISEASE, STAGE 4 (SEVERE) CHRONIC KIDNEY DISEASE, STAGE 4 (SEVERE) Active [facility] Diagnosis Active 2015-12-16 15:02:00 [facility] END STAGE RENAL DISEASE END STAGE RENAL DISEASE Active [facility] Diagnosis Active 2016-11-04 05:56:00 [facility] Cervicalgia Cerv icalgia 08/18/2018 03/01/2019 [facility] Tracy, [place] Problem 2018-08-18 05: 46:36 2019-03-01 11:34:53 2019-03-01 11:34:53 [facility] [place], [facility] [employer] Allergies, Adverse Reactions, Alerts Allergy Name Allergy Type Status Severity Reaction(s) Onset Date Inacti ve Date Treating Clinician Comments Source Plavix Plavix Active rash 2019-07-24 00:00:00 [facility] Fosamax Fosamax Active severe muscle cramping 2019-07-24 00:00:00 [facility] Lansoprazole Allergy to Substance Active Moderate ITCHING 2018-08-21 00 :00:00 [facility] No Known Drug Allergies No Known Drug Allergies Active [facility] Plavix TABS Plavix TABS Active [facility] Social History Social Habit Start Date Stop Date Quantity Comments Source Caffeine: 2016-09-10 00:00:00 2016-09-10 00:00:00 [facility] Social History 2014-01-03 19:04:04 2014-01-03 19:04:04 [facility] Medications Ordered Medication Name Filled Medication Name Start Date Stop Da te Current Medication? Ordering Clinician Indication Dosage Frequency Signature (SIG) Comments Components Source Nubia 2019-09-15 03:47:23 Yes Tatianna Stone 1 t ablet as needed [facility] Levothyroxine Sodium 2019-09-15 03:47:23 Yes Tatianna Stone 1 tablet [facility] Metoprolol Tartrate 2019-09-15 03:47:23 Yes Tatianna Stone 1 tablet [facility]rowser Aspirin 2019-09-15 03:47:23 Yes Tatianna Stone 2 t ablets [facility] Famotidine 2019-09-15 03:47:23 Yes Tatianna Stone 1 tablet as needed [facility] Atorvastatin Calcium 2019-09-15 03:47:23 Yes Tatianna Stone 1 tablet [facility] Amlodipine Besylate 2019-09-15 03:47:23 Yes Tatianna Stone 1 tablet [facility] Pantoprazole Sodium 2019-09-15 03:47:23 Yes Tatianna Stone 1 tablet [facility] Sensipar 2019-09-15 03:47:23 Yes Tatianna Stone 1 tablet with food or after a meal [facility] Vitamin D (Ergocalciferol) 2018-11-13 00:00:00 Yes Frances Burrowser 1 capsule [facility]rowser Prolia 2018-10-05 00:00:00 Yes Tatianna Stone as d irected [facility] [place] 3 2018-04-07 02:47:54 Yes Makedakenyatta Burrowsace 1 capsule [facility] O[facility] Famotidine 2018-04-07 02:47:54 Yes Makedakenyatta Burrowsace 1 tablet as needed [facility] Amlodipine Besylate 2018-04-07 02:47:54 Yes Makedakenyatta Burrowsace 1/2 tablet [facility] Burrowser Cyanocobalamin 2018-04-07 02:47:54 Yes Makeda Ozuna 1 ml [facility] Paroxetine HCl 2018-04-07 02:47:54 Yes Makeda Ozuna 1 tablet in the morning [facility] Ergocalciferol 2018-04-07 02:47:54 Yes Makeda Ozuna 1 capsule [facility] Tizanidine HCl 2018-04-07 02:47:54 Yes Makeda Ozuna 1 tablet as needed [facility] Sodium Bicarbonate 2017-10-17 03:45:34 Yes Makeda Ozuna 1 tablet [facility] Prolia 2017-08-31 00:00:00 Yes Makeda Ozuna 60M G SQ [facility] Prolia 2017-08-02 03:46:45 Yes Latifa Fakoya 60MG SQ [facility] Vitamin D (Ergocalciferol) 2017-07-23 03:45:21 Yes Owen a Fakoya 1 capsule [facility] Aspir-81 2017-07-23 03:45:21 Yes Latifa Fakoya 1 tablet [facility] Calcitriol 2017-07-23 03:45:21 Yes Latifa Fakoya 1 capsule [facility] Prolia 2017-06-22 00:00:00 Yes Latifa Fakoya 60MG SQ [facility] Metoprolol Tartrate 2017-04-14 02:46:16 Yes Wajeeha Ranjit 1 tablet Castillo Black-81 2017-04-14 02:46:16 Yes Wajeeha Ranjit 1 tablet [facility] Prolia 2017-04-14 02:46:16 Yes Wajeeha Ranjit 60M G SQ [facility] Calcitriol 2017-04-14 02:46:16 Yes Wajeeha Ranjit 1 capsule [facility] Levothyroxine Sodium 2017-04-14 02:46:16 Yes Wajeeha Ranjit 1 tablet [facility] Paroxetine HCl 2017-04-14 02:46:16 Yes Wajeeha Ranjit 1 tablet in the morning [facility] [place] 3 2017-04-14 02:46:16 Yes Wajeeha Ranjit 1 capsule [facility] Sodium Bicarbonate 2017-04-14 02:46:16 Yes Wajeeha Ranjit 1 tablet [facility] Famotidine 2017-04-14 02:46:16 Yes Wajeeha Ranjit 1 tablet as needed [facility] Ergocalciferol 2017-04-14 02:46:16 Yes Wajeeha Ranjit 1 capsule [facility] Cyanocobalamin 2017-04-14 02:46:16 Yes Wajeeha Ranjit 1 ml [facility] Amlodipine Besylate 2017-04-14 02:46:16 Yes Wajeeha Ranjit 1/2 tablet [facility] Voltaren Gel 2017-04-05 00:00:00 Yes Latifa Fakoya apply to affected area [facility] Vitamin D (Ergocalciferol) 2016-12-20 00:00:00 Yes Frances Souza 1 capsule [facility] Oxycodone Hydrochloride 5 MG Oral Tablet 2016-11-04 17:10:00 No 5 mg, Route: PO, Drug form: TAB, ONCE, Dosing Weight 59.545, kg, PRN Pain Score 4- 6, Start date: 11/04/16 11:10:00 [employer] [facility] labetalol (ANES) 2016-11-04 16:12:00 No Route: IV, Drug form: INJ, ONCE, Stop date: 11/04/16 10:12:00 ASSOCIATE [employer]LY[employer] [facility] ePHEDrine (ANES) 2016-11-04 15:58:00 No Route: IV, Drug form: INJ, ONCE, Stop date: 11/04/16 9:58:00 [employer] [facility] famotidine (ANES) 2016-11-04 15:58:00 No Route: IV, Drug form: INJ, ONCE, Stop date: 11/04/16 9:58:00 [employer]OC[employer] [facility] ondansetron (ANES) 2016-11-04 15:58:00 No Route: IV, Drug form: INJ, ONCE, Stop date: 11/04/16 9:58:00 [employer] [facility] fentaNYL (ANES) 2016-11-04 15:58:00 No Route: IV, Drug form: INJ, ONCE, Stop date: 11/04/16 9:58:00 [employer] [facility] propofol (ANES) 2016-11-04 15:58:00 No Route: IV, Drug form: INJ, ONCE, Stop date: 11/04/16 9:58:00 [employer] [facility] lidocaine (ANES) 2016-11-04 15:58:00 No Route: IV, Drug form: INJ, ONCE, Stop date: 11/04/16 9:58:00 [employer] [facility] rocuronium (ANES) 2016-11-04 15:58:00 No Route: IV, Drug form: INJ, ONCE, Stop date: 11/04/16 9:58:00 [employer] [facility] neostigmine ([facility]) 2016-11-04 15:58:00 No Route: IV, Drug form: INJ, ONCE, Stop date: 11/04/16 9:58:00 [employer] [facility] glycopyrrolate ([facility]) 2016-11-04 15:58:00 No Route: IV, Drug form: INJ, ONCE, Stop date: 11/04/16 9:58:00 [employer] [facility] acetaminophen-codeine #3 2016-11-04 15:53:00 No 2 tab, Route: PO, Drug Form: TAB, Dosing Weight 59.545, kg, Q4H, PRN Pain Score 4-6, Start date: 11/04/16 9:53:00 [employer], Duration: 30 day, Stop date: 12/04/16 9:52:00 CDT [facility] Morphine 2016-11-04 15:53:00 No 2 mg, Route: IVP, Q3H, Dosing Weight 59.545, kg, PRN Pain Score 1-3, Start date: 11/04/16 9:53:00 [employer], Duration: 30 day, Stop date: 12/04/16 9:52:00 CDT [facility] vancomycin ([facility]) (ANES) 2016-11-04 15:19:00 No Route: IV, Drug form: INJ, Start date: 11/04/16 9:19:00 [facility] [employer], Stop date: 11/04/16 10:19:00 [employer] [facility] ceFAZolin ([facility]) (ANES) 2016-11-04 15:19:00 No Route: IV, Drug form: INJ, Start date: 11/04/16 9:19:00 [employer], Stop date: 11/04/16 10:19:00 [employer] [facility] sodium chloride 0.9% 500 ml INJ (ANES) 2016-11-04 15:10:00 No Route: IV, Total Volume: 500, Start date: 11/04/16 9:10:00 [employer], Stop date: 11/04/16 10:10:00 [facility] [facility] sodium chloride 0.9% 500 ml INJ 500 mL 2016-11-04 14:04:00 No 500 mL, Rate: 40 ml/hr, Infuse over: 12.5 hr, Route: IV, Dosing Weight 59.545 kg, Total Volume: 500, Start date: 11/04/16 8:04:00 [employer], Duration: 1 day, Stop date: 11/05/16 8:03:00 [employer] [facility] Lactated Ringers 1,000 mL 2016-11-04 14:03:00 No 1,000 mL, Rate: 40 ml/hr, Infuse over: 25 hr, Route: IV, Dosing Weight 59.545 kg, Total Volume: 1,000, Start date: 11/04/16 8:03:00 [employer], Duration: 1 day, Stop date: 11/05/16 8:02:00 [facility] [facility] Vitamin D3 50,000 intl units oral capsule 2016-10-28 16:01:00 Yes 50,000 IntlUnit = 1 cap, PO, qWeek, # 12 cap, 0 Refill(s) [facility] glimepiride 1 mg oral tablet 2016-10-28 16:00:00 Yes 1 mg = 1 tab, PO, Daily, 0 Refill(s) [facility] Ancef 2016-10-28 16:00:00 No Notes: Same as : [facility] Vancomycin 2016-10-28 16:00:00 No 2001 mg: infuse over 2.5 hours MEDICATION WASTE Product Size: 1000 mg Product Wasted: ___ mg [facility] Famotidine 10 MG Oral Tablet 2016-10-28 16:00:00 Yes 10 mg = 1 tab, PO, BID, 0 Refill(s) [facility] Nubia 2016-09-14 03:50:08 Yes Martin Souza 1 t ablet as needed [facility] Vitamin D (Ergocalciferol) 2016-09-10 00:00:00 Yes Frances Souza 1 capsule [facility] Synthroid 2016-03-16 02:55:00 Yes Makeda Ozuna 1 tablet every morning on an empty stomach [facility] Losartan Potassium 2016-03-16 02:55:00 Yes Makeda Ozuna 1 tablet [facility] Burrowser Tricor 2016-03-16 02:55:00 Yes Makeda Ozuna 1 t ablet [facility] PredniSONE 2016-02-09 00:00:00 Yes Martin Souza 2 tablets with food or milk [facility]rowser Nexium 2016-02-09 00:00:00 Yes Martin Souza 1 ca psule [facility] propofol ([facility]) 2015-11-24 14:58:00 No Route: IV, Drug form: INJ, ONCE, Stop date: 11/24/15 9:58:00 [facility] lidocaine ([facility]) 2015-11-24 14:58:00 No Route: IV, Drug form: INJ, ONCE, Stop date: 11/24/15 9:58:00 [facility] fentaNYL ([facility]) 2015-11-24 14:53:00 No Route: IV, Drug form: INJ, ONCE, Stop date: 11/24/15 9:53:00 [facility] midazolam ([facility]) 2015-11-24 14:53:00 No Route: IV, Drug form: SOLN, ONCE, Stop date: 11/24/15 9:53:00 [facility] ceFAZolin ([facility]) 2015-11-24 14:53:00 No Route: IV, Drug form: INJ, ONCE, Stop date: 11/24/15 9:53:00 [facility] Oxycodone 2015-11-24 14:51:00 No Notes: (Sa me as: Roxicodone) [facility] Flumazenil 2015-11-24 14:51:00 No Notes: (S juan as: Romazicon) [facility] Meperidine 2015-11-24 14:51:00 No Notes: (S juan As: Demerol) [facility] Naloxone 2015-11-24 14:51:00 No Notes: Same as Narcan [facility] Fentanyl 2015-11-24 14:51:00 No Notes: (Same as: Sublimaze) Preservative free. [facility] Hydromorphone 2015-11-24 14:51:00 No 0.5 mg, 0.5 mL, Route: IVP, Drug form: INJ, Q5Min, Dosing Weight 57.784, kg, PRN Pain Score 7-10, Start date: 11/24/15 9:51:00, Duration: 4 doses or times, Stop date: Limited # of times [facility] Ondansetron 2015-11-24 14:51:00 No Notes: (Same as: Zofran) MEDICATION WASTE Product Size: 4 mg Product Wasted: ___ mg [facility] Hydralazine 2015-11-24 14:51:00 No Notes: (Same as: Apresoline) Push over 5 minutes [facility] ondansetron ([facility]) 2015-11-24 14:43:00 No Route: IV, Drug form: INJ, ONCE, Stop date: 11/24/15 9:43:00 [facility] vancomycin ([facility]) ([facility]) 2015-11-24 14:11:00 No Route: IV, Drug form: INJ, Start date: 11/24/15 9:11:00, Stop date: 11/24/15 10:11:00 [facility] Sodium Chloride 0.154 MEQ/ML Injectable Solution 2015-11-24 14:0 9:00 No 500 mL, Rate: 25 ml/hr, Infu se over: 20 hr, Route: IV, Dosing Weight 57.784 kg, Total Volume: 500, Start date: 11/24/15 9:09:00, Duration: 30 day, Stop date: 12/24/15 9:08:00 [facility] Sodium Chloride 0.9% IV ([facility]) ([facility]) 2015-11-24 14:08:00 N o Route: IV, Total Volume: 500, Start date: 11/24/15 9:08:00, Stop date: 11/24/15 10:08:00 [facility] Calcium Chloride 0.0014 MEQ/ML / Potassi um Chloride 0.004 MEQ/ML / Sodium Chloride 0.103 MEQ/ML / Sodium Lactate 0.028 MEQ/ML Injectable Solution 2015-11-24 14:08:00 No 1,000 mL, Rate: 25 ml/hr, Infuse over: 40 hr, Route: IV, Dosing Weight 57.784 kg, Total Volume: 1,000, Start date: 11/24/15 9:08:00, Duration: 30 day, Stop date: 12/24/15 9:07:00 [facility] Vancomycin 2015-11-17 22:00:00 No 2001 mg: infuse over 2.5 hours MEDICATION WASTE Product Size: 1000 mg Product Wasted: ___ mg [facility] Ancef 2015-11-17 22:00:00 No Notes: Same as : [facility] Hydralazine 2015-03-24 18:35:00 No 10 mg, Route: IVP, Q20Min, Dosing Weight 60, kg, PRN Elevated BP, Start date: 03/24/15 13:35:00, Duration: 2 doses or times, Stop date: Limited # of times [facility] Glycopyrrolate 2015-03-24 18:35:00 No 0.2 mg, Route: IVP, Q5Min, Dosing Weight 60, kg, PRN Bradycardia, Start date: 03/24/15 13:35:00, Duration: 3 doses or times, Stop date: Limited # of times [facility] Ondansetron 2015-03-24 18:35:00 No 4 mg, Route: IVP, ONCE, Dosing Weight 60, kg, PRN Nausea & Vomiting, Start date: 03/24/15 13:35:00 [facility] Flumazenil 2015-03-24 18:35:00 No 0.2 mg, Route: IVP, PRN, Dosing Weight 60, kg, PRN Benzodiazepine Reversal, Initial dose, Start date: 03/24/15 13:35:00, Duration: 30 day, Stop date: 04/23/15 13:34:00 [facility] Meperidine 2015-03-24 18:35:00 No 12.5 mg, Route: IVP, Q30Min, Dosing Weight 60, kg, PRN Other -See Comment, For shivering, Start date: 03/24/15 13:35:00, Duration: 2 doses or times, Stop date: Limited # of times [facility] Promethazine 2015-03-24 18:35:00 No 6.25 mg, Route: IVPB, ONCE, Dosing Weight 60, kg, PRN Nausea & Vomiting, Start date: 03/24/15 13:35:00 [facility] Naloxone 2015-03-24 18:35:00 No 0.04 mg, Route: IVP, Q2MIN, Dosing Weight 60, kg, PRN Narcotic Reversal, Start date: 03/24/15 13:35:00, Duration: 8 doses or times, Stop date: Limited # of times [facility] Morphine 2015-03-24 18:35:00 No 4 mg, Route: IVP, Q5Min, Dosing Weight 60, kg, PRN Pain Score 7-10, Start date: 03/24/15 13:35:00, Duration: 3 doses or times, Stop date: Limited # of times [facility] Hydromorphone 2015-03-24 18:35:00 No 0.5 mg, Route: IVP, Q5Min, Dosing Weight 60, kg, PRN Pain Score 7-10, Start date: 03/24/15 13:35:00, Duration: 4 doses or times, Stop date: Limited # of times [facility] Diphenhydramine 2015-03-24 18:35:00 No 12.5 mg, Route: IVP, Drug form: INJ, Q6H, Dosing Weight 60, kg, PRN Itching, Start date: 03/24/15 13:35:00, Duration: 30 day, Stop date: 04/23/15 13:34:00 [facility] Fentanyl 2015-03-24 18:35:00 No 25 microgram, Route: IVP, Q5Min, Dosing Weight 60, kg, PRN Pain Score 4-6, Start date: 03/24/15 13:35:00, Duration: 4 doses or times, Stop date: Limited # of times [facility] Ketorolac 2015-03-24 18:35:00 Yes 4 days MEDICATION WASTE Product Size: 30 mg Product Wasted: ___ mg [facility] Oxycodone 2015-03-24 18:35:00 No 10 mg, Route: PO, Drug form: TAB, Q4H, Dosing Weight 60, kg, PRN Pain Score 7-10, Start date: 03/24/15 13:35:00, Duration: 30 day, Stop date: 04/23/15 13:34:00 [facility] Metoprolol 2015-03-24 18:35:00 No 1 mg, Route: IVP, Q5Min, Dosing Weight 60, kg, PRN Other -See Comment, Start date: 03/24/15 13:35:00, Duration: 5 doses or times, Stop date: Limited # of times [facility] acetaminophen-codeine #3 2015-03-24 18:01:00 No 1 tab, Route: PO, Drug Form: TAB, Dosing Weight 60, kg, Q4H, PRN Pain Score 4-6, Start date: 03/24/15 13:01:00, Duration: 30 day, Stop date: 04/23/15 13:00:00 [facility] Morphine 2015-03-24 18:01:00 No 2 mg, Route: IVP, Q3H, Dosing Weight 60, kg, PRN Pain Score 1-3, Start date: 03/24/15 13:01:00, Duration: 30 day, Stop date: 04/23/15 [facility]:00[facility]00 [facility] 16:43:00 No 2 gm, Route: IVPB, ONCE, Dosing Weight 60, kg, Start date: 03/24/15 11:43:00, Duration: 1 doses or times, Stop date: 03/24/15 11:43:00 [facility] Sodium Chloride 0.154 MEQ/ML Injectable Solution 2015-03-23 13:2 6:00 No 500 mL, Rate: 25 ml/hr, Infu se over: 20 hr, Route: IV, Dosing Weight 60 kg, Total Volume: 500, Start date: 03/23/15 8:26:00, Duration: 2 day, Stop date: 03/25/15 8:25:00 [facility] Vancomycin 2015-03-17 20:00:00 No N otes: TIME CRITICAL MEDICATION [facility] Vitamin B-12 2015-01-01 02:59:57 Yes Martin Souza 15 ml [facility] Omeprazole 2015-01-01 02:59:57 Yes Martin Souza 2 capsules [facility] Glimepiride 2015-01-01 02:59:57 Yes Martin Souza 1 tablet with breakfast or the first main meal of the day [facility] Atorvastatin Calcium 2015-01-01 02:59:57 Yes Martin Souza 1 tablet [facility] Fenofibrate 2015-01-01 02:59:57 Yes Martin Souza 1 tablet [facility] Sou[facility] Glimepiride 1 MG Oral Tablet 2014-01-03 19:04:04 Yes (Active) [facility] Levothyroxine Sodium 75 MCG Oral Tablet 2014-01-03 19:04:04 Yes (Active) [facility] Omeprazole 20 MG Oral Capsule Delayed Release 2014-01-03 19:04:0 4 Yes (Active) [facility] AmLODIPine Besylate 5 MG Oral Tablet 2014-01-03 19:04:04 Ye s (Active) [facility] Nubia Allergy 180 MG Oral Tablet 2014-01-03 19:04:04 Yes (Active) [facility] Fish Oil Concentrate 1000 MG Oral Capsule 2014-01-03 19:04:04 Yes (Active) [facility] Metoprolol Succinate ER 50 MG Oral Tablet Extended Release 2 4 Hour 2014-01-03 19:04:04 Yes (Active) [facility] Gabapentin 100 MG Oral Capsule 2014-01-03 19:04:04 Yes (Active) [facility] Metoprolol Succinate ER 50 MG Oral Tablet Extended Release 2 4 Hour 2013-11-08 13:32:05 Yes (Active) [facility] Atorvastatin Calcium 10 MG Oral Tablet 2013-11-08 05:00:00 Yes ; Start Date: 11/08/2013; End Date: (Active) [facility] Atorvastatin Calcium 10 MG Oral Tablet 2013-11-06 20:34:17 Yes (Active) [facility] Cyanocobalamin 1000 MCG/ML Injection Solution 2013-08-16 15:31:3 7 Yes (Active) [facility] Clopidogrel Bisulfate 75 MG Oral Tablet 2013-08-16 15:31:37 Yes (Active) [facility] Integra Plus Oral Capsule 2013-08-16 15:31:37 Yes (Active) [facility] Fenofibrate 48 MG Oral Tablet 2013-08-16 06:00:00 Yes ; Start Date: 08/16/2013; End Date: (Active) [facility] Fenofibrate 48 MG Oral Tablet 2013-08-09 20:33:17 Yes (Active) [facility] Cyanocobalamin 1000 MCG/ML Injection Solution 2013-08-09 06:00:0 0 Yes ; Start Date: 08/09/2013 (Active) [facility] PARoxetine HCl 10 MG Oral Tablet 2013-07-12 06:00:00 Yes ; Start Date: 07/12/2013 (Active) [facility] Fish Oil CAPS 2013-06-18 16:04:19 Yes (Acti ve) [facility] Integra Plus CAPS 2013-06-18 16:04:19 Yes ( Active) [facility] Allergy TABS 2013-06-04 15:02:02 Yes (Activ e) [facility] Losartan Potassium 25 MG Oral Tablet 2013-06-04 05:00:00 Ye s ; Start Date: 06/04/2013 (Active) [facility] Losartan Potassium 25 MG Oral Tablet 2013-05-29 15:32:01 Ye s (Active) [facility] Amlodipine Besylate 5 Mg Tablet Amlodipine Besylate 5 Mg Tablet Yes 5 Daily [facility] Aspirin (Aspir 81) 81 Mg Tablet. Aspirin (Aspir 81) 81 Mg Tablet. Yes 81 Bedtime [facility] Atorvastatin Calcium 10 Mg Tablet Atorvastatin Calcium 10 Mg Tablet Yes 20 Bedtime [facility] Cinacalcet Hcl (Sensipar) 30 Mg Tablet Cinacalcet Hcl (Sensipar) 30 Mg Tablet Yes 30 Daily [facility] Fexofenadine Hcl (Nubia Allergy) 180 Mg Tablet Fexof enadine Hcl (Nubia Allergy) 180 Mg Tablet Yes 180 As Needed as ne eded for Allergy [facility] Levothyroxine Sodium (Levothroid) 75 Mcg Tablet Levoth yroxine Sodium (Levothroid) 75 Mcg Tablet Yes 75 Daily [facility] Metoprolol Succinate 50 Mg Tab.er.24h Metoprolol Succinate 50 Mg Ta b.er.24h Yes 50 Bedtime [facility] Pantoprazole Sodium (Protonix) 40 Mg Tablet. Pantopr azole Sodium (Protonix) 40 Mg Tablet. Yes 40 Daily [facility] Sevelamer Carbonate (Renvela) 0.8 Gm Powd.pack Sevelam er Carbonate (Renvela) 0.8 Gm Powd.pack Yes [facility] Terazosin Hcl 1 Mg Capsule Terazosin Hcl 1 Mg Capsule Yes 2 Bedtime [facility] Amoxicillin/Potassium Clav (Augmentin 50 0-125 Tablet) 1 Each Tablet, 500 Mg Oral Amoxicillin/Potassium Clav (Augmentin 50 0-125 Tablet) 1 Each Tablet, 500 Mg Oral 2019-09-23 00:00:00 No 500 Daily [facility] Calcitriol 0.25 Mcg Capsule, 0.25 Mg Oral Calcitriol 0 .25 Mcg Capsule, 0.25 Mg Oral 2018-11-12 00:00:00 No .25 Daily [facility] Paroxetine Hcl 20 Mg Tablet, 10 Mg Oral Paroxetine Hcl 20 Mg Tablet, 10 Mg Oral 2018-11-12 00:00:00 No 10 Daily [facility] Denosumab (Prolia) 60 Mg/1 Ml Disp.syrin, 60 Mg Intram us Denosumab (Prolia) 60 Mg/1 Ml Disp.syrin, 60 Mg Intramusc 2018-05-22 00:00:00 No 60 As Needed [facility] Cyanocobalamin (Cyanocobalamin Injection) 1,000 Mcg/Ml Soln, 1000 Mcg Oral Cyanocobalamin (Cyanocobalamin Injection) 1,000 Mcg/Ml Soln, 1000 Mcg Oral 2018-03-28 00:00:00 No 1000 Monthly [facility] Docusate Sodium (Stool Softener) 100 Mg Capsule, 2 Tab Oral Docusate Sodium (Stool Softener) 100 Mg Capsule, 2 Tab Oral 2018-03-28 00:00:00 No 2 Bedtime [facility] Fenofibrate (Tricor) 48 Mg Tab, 48 Mg Oral Fenofibrate (Tricor) 48 Mg Tab, 48 Mg Oral 2018-03-28 00:00:00 No 48 Bedtime [facility] Gabapentin 100 Mg Capsule, 100 Mg Oral Gabapentin 100 Mg Capsule , 100 Mg Oral 2018-03-28 00:00:00 No 100 Bedtime [facility] Glimepiride (Amaryl) 1 Mg Tablet, 1 Mg Oral Glimepirid e (Amaryl) 1 Mg Tablet, 1 Mg Oral 2018-03-28 00:00:00 No 1 Daily [facility] Iron Fum & P/Fa/Vit B & C No.9 (Integra Plus Capsule) 1 Each Capsule, 1 Cap Oral Iron Fum & P/Fa/Vit B & C No.9 (Integra Plus Capsule) 1 Each Capsule, 1 Cap Oral 2018-03-28 00:00:00 No 1 Bedtime [facility] Losartan Potassium 25 Mg Tablet, 25 Mg Oral Losartan P otassium 25 Mg Tablet, 25 Mg Oral 2018-03-28 00:00:00 No 25 Daily [facility] Omeprazole 40 Mg Capsule., 40 Mg Oral Omeprazole 40 Mg Cap brennan., 40 Mg Oral 2018-03-28 00:00:00 No 40 Daily [facility] Sennosides/Docusate Sodium (Stool Softener Tablet) 1 E ach Tablet, Sennosides/Docusate Sodium (Stool Softener Tablet) 1 Each Tablet, 2018-03-28 00:00:00 No [facility] Zofran , 4 Mg Oral Zofran , 4 Mg Oral 2017-06-15 00:00:00 No 4 Twice A Day as needed for Nausea [facility] [place]-3 Fatty Acids/Fish Oil (Fish Oil 1 ,000 Mg Capsule) 1 Each Capsule, 2000 Mg Oral [place]-3 Fatty Acids/Fish Oil (Fish Oil 1 ,000 Mg Capsule) 1 Each Capsule, 2000 Mg Oral 2014-03-31 00:00:00 No 2000 Daily [facility] Aspirin (Adult Aspirin) 81 Mg Tab.chew, Aspirin (Adult Aspir in) 81 Mg Tab.chew, 2013-05-13 00:00:00 No Daily [facility] Atorvastatin Calcium (Lipitor) 10 Mg Tablet, Atorvasta tin Calcium (Lipitor) 10 Mg Tablet, 2013-05-13 00:00:00 No Qhs [facility] Fenofibrate Nanocrystallized (Tricor) 48 Mg Tablet, Fe nofibrate Nanocrystallized (Tricor) 48 Mg Tablet, 2013-05-13 00:00:00 No Q [facility] Fish Oil/Fat No.8/Hrb Comb.137 ([place] 3-6-9 1,200 Mg S oftgel) 1,200 Mg Capsule, Fish Oil/Fat No.8/Hrb Comb.137 ([place] 3-6-9 1,200 Mg Softgel) 1,200 Mg Capsule, 2013-05-13 00:00:00 No Daily [facility] Glimepiride (Amaryl) 1 Mg Tablet, Glimepiride (Amaryl) 1 Mg Tabl et, 2013-05-13 00:00:00 No Daily [facility] Isradipine (Dynacirc Cr) 5 Mg Tab.er.24, Isradipine (D ynacirc Cr) 5 Mg Tab.er.24, 2013-05-13 00:00:00 No Daily [facility] Levothyroxine Sodium (Synthroid) 75 Mcg Tablet, Levoth yroxine Sodium (Synthroid) 75 Mcg Tablet, 2013-05-13 00:00:00 No Qhs [facility] Metoprolol Succinate (Toprol Xl) 50 Mg Tab.sr.24h, Met oprolol Succinate (Toprol Xl) 50 Mg Tab.sr.24h, 2013-05-13 00:00:00 No Vivek castro [facility] Omeprazole (Prilosec) 20 Mg Capsule., Omeprazole (Prilosec ) 20 Mg Capsule., 2013-05-13 00:00:00 No Daily [facility] Vital Signs Vital Name Observation Time Observation Value Comments Source Weight 2019-07-24 19:00:00 Castillo Souza Height 2019-07-24 19:00:00 Castillo Souza Temperature Oral (F) 2019-07-24 19:00:00 98.2 F Castillo Souza Heart Rate 2019-07-24 19:00:00 Castillo Souza Diastolic (mm Hg) 2019-07-24 19:00:00 Phi llip Souza Systolic (mm Hg) 2019-07-24 19:00:00 Farshad lip Souza Weight 2018-04-04 16:00:00 Castillo Souza Height 2018-04-04 16:00:00 Castillo Souza Temperature Oral (F) 2018-04-04 16:00:00 97.9 F Castillo Souza Heart Rate 2018-04-04 16:00:00 Castillo Souza Diastolic (mm Hg) 2018-04-04 16:00:00 Phi llip Souza Systolic (mm Hg) 2018-04-04 16:00:00 Farshad lip Souza Weight 2017-10-12 15:15:00 Castillo Souza Height 2017-10-12 15:15:00 Castillo Souza Temperature Oral (F) 2017-10-12 15:15:00 97.4 F Castillo Souza Heart Rate 2017-10-12 15:15:00 Castillo Souza Diastolic (mm Hg) 2017-10-12 15:15:00 Phi llip Souza Systolic (mm Hg) 2017-10-12 15:15:00 Farshad lip Souza Weight 2017-09-22 16:30:00 Castillo Souza Height 2017-09-22 16:30:00 Castillo Souza Temperature Oral (F) 2017-09-22 16:30:00 97.9 F Castillo Souza Heart Rate 2017-09-22 16:30:00 Castillo Souza Diastolic (mm Hg) 2017-09-22 16:30:00 Phi llip Souza Systolic (mm Hg) 2017-09-22 16:30:00 Farshad lip Souza Weight 2017-08-01 16:00:00 Castillo Souza Height 2017-08-01 16:00:00 Castillo Souza Temperature Oral (F) 2017-08-01 16:00:00 98.6 F Castillo Souza Heart Rate 2017-08-01 16:00:00 Castillo Souza Diastolic (mm Hg) 2017-08-01 16:00:00 Phi llip Souza Systolic (mm Hg) 2017-08-01 16:00:00 Farshad lip Souza Weight 2017-07-07 22:00:00 Castillo Souza Height 2017-07-07 22:00:00 Castillo Souza Temperature Oral (F) 2017-07-07 22:00:00 100.9 F Castillo Souza Heart Rate 2017-07-07 22:00:00 Castillo Souza Diastolic (mm Hg) 2017-07-07 22:00:00 Phi llip Souza Systolic (mm Hg) 2017-07-07 22:00:00 Farshad lip Osuza Weight 2017-04-05 16:30:00 Castillo Souza Height 2017-04-05 16:30:00 Castillo Souza Temperature Oral (F) 2017-04-05 16:30:00 98.1 F Castillo Souza Heart Rate 2017-04-05 16:30:00 Castillo Souza Diastolic (mm Hg) 2017-04-05 16:30:00 Phi llip Souza Systolic (mm Hg) 2017-04-05 16:30:00 Farshad lip Souza Systolic (mm Hg) 2016-11-04 18:00:00 [facility] Diastolic (mm Hg) 2016-11-04 18:00:00 [facility] Systolic (mm Hg) 2016-11-04 17:30:00 [facility] Diastolic (mm Hg) 2016-11-04 17:30:00 [facility] Systolic (mm Hg) 2016-11-04 17:00:00 [facility] Diastolic (mm Hg) 2016-11-04 17:00:00 [facility] Respitory Rate 2016-11-04 16:45:00 [facility] Respitory Rate 2016-11-04 16:30:00 [facility] Respitory Rate 2016-11-04 16:15:00 [facility] Heart Rate 2016-11-04 14:08:00 [facility] Temperature Oral (F) 2016-10-28 15:29:00 97.5 F [facility] Heart Rate 2016-10-28 15:29:00 [facility] Height 2016-10-28 15:22:00 162.56 cm [facility] Weight 2016-10-28 15:22:00 [facility] BMI Calculated 2016-10-28 15:22:00 [facility] Weight 2016-09-10 16:30:00 Castillo Souza Height 2016-09-10 16:30:00 Castillo Souza Temperature Oral (F) 2016-09-10 16:30:00 96.9 F Castillo Souza Heart Rate 2016-09-10 16:30:00 Castillo Souza Diastolic (mm Hg) 2016-09-10 16:30:00 Phi llip Souza Systolic (mm Hg) 2016-09-10 16:30:00 Farshad lip Souza Weight 2016-03-11 15:45:00 Castillo Souza Height 2016-03-11 15:45:00 Castillo Souza Temperature Oral (F) 2016-03-11 15:45:00 98.5 F Castillo Souza Heart Rate 2016-03-11 15:45:00 Castillo Souza Diastolic (mm Hg) 2016-03-11 15:45:00 Phi llip Souza Systolic (mm Hg) 2016-03-11 15:45:00 Farshad lip Souza Systolic (mm Hg) 2015-11-24 17:30:00 [facility] Diastolic (mm Hg) 2015-11-24 17:30:00 [facility] Systolic (mm Hg) 2015-11-24 17:15:00 [facility] Diastolic (mm Hg) 2015-11-24 17:15:00 [facility] Systolic (mm Hg) 2015-11-24 17:00:00 [facility] Diastolic (mm Hg) 2015-11-24 17:00:00 [facility] Respitory Rate 2015-11-24 15:45:00 [facility] Respitory Rate 2015-11-24 15:30:00 [facility] Respitory Rate 2015-11-24 15:15:00 [facility] Temperature Oral (F) 2015-11-17 21:53:00 97.9 F [facility] Heart Rate 2015-11-17 21:53:00 [facility] BMI Calculated 2015-11-17 21:30:00 [facility] Weight 2015-11-17 21:30:00 [facility] Height 2015-11-17 21:30:00 162.56 cm [facility] Systolic (mm Hg) 2015-03-24 20:15:00 [facility] Diastolic (mm Hg) 2015-03-24 20:15:00 [facility] Systolic (mm Hg) 2015-03-24 20:00:00 [facility] Diastolic (mm Hg) 2015-03-24 20:00:00 [facility] Systolic (mm Hg) 2015-03-24 19:45:00 [facility] Diastolic (mm Hg) 2015-03-24 19:45:00 [place] [facility] Rate 2015-03-24 19:00:00 [facility] Respitory Rate 2015-03-24 18:45:00 [facility] Respitory Rate 2015-03-24 18:30:00 [facility] Heart Rate 2015-03-17 20:07:00 [facility] Temperature Oral (F) 2015-03-17 20:07:00 98.4 F [facility] Height 2015-03-17 19:18:00 162.56 cm [facility] BMI Calculated 2015-03-17 19:18:00 [facility] Weight 2015-03-17 19:18:00 [facility] Weight 2014-12-12 15:00:00 Castillo Souza Height 2014-12-12 15:00:00 Castillo Souza Temperature Oral (F) 2014-12-12 15:00:00 98.0 F Castillo Souza Heart Rate 2014-12-12 15:00:00 Castillo Souza Diastolic (mm Hg) 2014-12-12 15:00:00 Phi llip Souza Systolic (mm Hg) 2014-12-12 15:00:00 Farshad lip Souza Weight 2014-06-13 15:15:00 Castillo Souza Height 2014-06-13 15:15:00 Castillo Souza Temperature Oral (F) 2014-06-13 15:15:00 98.2 F Castillo Souza Heart Rate 2014-06-13 15:15:00 Castillo Souza Diastolic (mm Hg) 2014-06-13 15:15:00 Phi llip Souza Systolic (mm Hg) 2014-06-13 15:15:00 Farshad lip Souza Weight 2013-12-12 15:30:00 Castillo Souza Height 2013-12-12 15:30:00 Castillo Souza Temperature Oral (F) 2013-12-12 15:30:00 97.5 F Castillo Souza Heart Rate 2013-12-12 15:30:00 Castillo Souza Diastolic (mm Hg) 2013-12-12 15:30:00 Phi llip Souza Systolic (mm Hg) 2013-12-12 15:30:00 Farshad lip Souza Procedures Procedure Date / Time Performed Performing Clinician [facility] e Computed tomography of brain without radiopaque contrast 202 00:00:00 [facility] Computed tomography of brain without radiopaque contrast 00:00:00 [facility] Magnetic resonance imaging of brain without contrast 2019-08 00:00:00 ERICKA GREENE [facility] Abdominal hysterectomy [place], [place], [facility] [place], [facility] [employer] Appendectomy OPID [place] , [place], [facility] [place], [facility] [employer] Cholecystectomy OPID [place] , [place], [facility] [place], OPID [employer] Colonoscopy OPID [place] , [facility], [facility] [place], OPID [employer] Excision of ganglion cyst OPI D [place], [facility], [facility] [place], OPID [employer] Plan of Care Planned Activity Planned Date Details Comments Source Future Scheduled Test Plan of Care [code = 99536-5] [facility] Future Scheduled Test Plan of Care [code = 60704-5] [facility] Future Scheduled Test Plan of Care [code = 44954-4] [facility] Future Scheduled Test Plan of Care [code = 61291-9] [facility] Future Scheduled Test Plan of Care [code = 06805-7] [facility] Future Scheduled Test Plan of Care [code = 46728-6] [facility] Future Scheduled Test Plan of Care [code = 60027-8] [facility] Future Scheduled Test Plan of Care [code = 65791-1] [facility] Future Scheduled Test Plan of Care [code = 60035-3] [facility] Encounters Start Date/Time End Date/Time Encounter Type Admission Type Attendi [facility] Care Department Encounter ID Source 2019-10-05 10:03:00 2019-10-05 14:37:00 Departed Emergency Room 1 ERICKA GREENE [facility] [id number] [facility] 2019-09-24 10:14:00 2019-09-24 12:30:00 Departed Emergency Room [facility] [id number] [facility] 2019-09-22 14:23:00 2019-09-23 14:53:00 Discharged Inpatient (obs) 1 RODNEY SHIPMAN [facility] [id number] [facility] 2019-09-10 15:41:00 2019-09-10 15:41:00 Outpatient Martin Souza MD [place] [id number] Castillo Souza MD 2019-07-24 13:00:00 2019-07-24 13:00:00 Outpatient Martin Souza MD [place] [id number] CHELSEA Souza MD 2019-07-19 21:10:00 2019-07-20 05:59:00 Outpt Diag Services [facility] - [place] [id number] MH [facility] 2019-07-19 15:10:00 2019-07-19 23:59:00 Outpatient Melonie Shipman [facility] [place] [id number] 2019-07-19 15:50:00 2019-07-19 15:50:00 Outpatient MD OMID De Jesus MD [place] [id number] CHELSEA Souza MD 2019-07-19 11:02:00 2019-07-19 11:02:00 Outpatient MD OMID De Jesus MD [place] [id number] Castillo Souza MD 2019-07-17 13:57:00 2019-07-17 13:57:00 Outpatient MD OMID De Jesus MD [place] [id number] Castillo Sozua MD 2019-07-13 15:04:00 2019-07-13 15:04:00 Outpatient MD OMID De Jesus MD [place] [id number] Castillo Souza MD 2019-06-27 10:41:00 2019-06-27 10:41:00 Outpatient MD OMID De Jesus MD PA [id number] CHELSEA Souza MD 2019-06-11 14:36:00 2019-06-11 14:36:00 Outpatient MD OMID De Jesus MD [place] [id number] CHELSEA Souza MD 2018-11-12 17:35:00 2018-11-16 10:59:00 Discharged Inpatient 1 RODNEY SHIPMAN [facility] [id number] [facility] 2018-11-13 15:57:00 2018-11-13 15:57:00 Outpatient Martni Souza MD [place] [id number] CHELSEA Souza MD 2018-10-25 10:54:00 2018-10-25 10:54:00 Outpatient Martin Souza MD [place] [id number] Catsillo Souza MD 2018-08-28 09:56:00 2018-09-01 10:31:00 Discharged Inpatient 1 RODNEY SHIPMAN [facility] [id number] [facility] 2018-07-13 17:30:00 2018-08-12 05:59:00 OP Therapy Patients [facility] [place] [id number] [facility] [place] 2018-07-13 11:30:00 2018-08-11 23:59:00 Outpatient Rodney Shipman [id number] 2018-07-17 21:30:00 2018-07-18 05:59:00 Outpt Diag Services [facility] Outpatient Imaging - [place] [id number] MH [place] 2018-07-17 15:30:00 2018-07-17 23:59:00 Outpatient Melonie Shipman MHHOIP MHHOIP [id number] 2018-06-12 18:00:00 2018-07-12 05:59:00 OP Therapy Patients [facility] [place] [id number] [facility] [place] 2018-06-12 13:00:00 2018-07-11 23:59:00 Outpatient Rodney Shipman [id number] 2018-05-11 19:16:00 2018-06-10 04:59:00 OP Therapy Patients [facility] [place] [id number] [facility] [place] 2018-05-11 14:16:00 2018 23:59:00 Outpatient Rodney Shipman [id number] 2018 12:41:00 2018 12:41:00 Outpatient Martin Souza MD [place] [id number] Castillo Souza MD 2018-05-19 12:17:00 2018-05-22 13:43:00 Discharged Inpatient (obs) 1 CHRISTEL HATHAWAY [facility] [id number] [facility] 2018-05-16 09:48:00 2018-05-18 11:14:00 Discharged Inpatient 1 CHRISTEL HATHAWAY [facility] [id number] [facility] 2018-05-02 18:53:00 2018-05-03 04:59:00 Outpt Diag Services [facility] Outpatient [facility] [id number] MH OPID [employer] 2018-05-02 13:53:00 2018-05-02 23:59:00 Outpatient Melonie Shipman MHOIB MHOIB [id number] 2018-04-12 09:19:00 2018-04-12 09:19:00 Outpatient Martin Souza MD PA [id number] Castillo Souza MD 2018-04-04 11:00:00 2018-04-04 11:00:00 Outpatient Martin ANNE [id number] Castillo Souza MD 2018-03-28 20:30:00 2018-03-31 13:56:00 Discharged Inpatient (obs) [facility] [id number] [facility] 2018-02-28 09:58:00 2018-02-28 09:58:00 Outpatient Martin Souza MD PA [id number] Castillo Souza MD 2017-10-12 09:15:00 2017-10-12 09:15:00 Outpatient Martin Souza MD PA [id number] CHELSEA Souza MD 2017-09-22 11:33:00 2017-09-22 11:33:00 Outpatient Martin Souza MD PA [id number] Castillo Souza MD 2017-09-22 10:30:00 2017-09-22 10:30:00 Outpatient Martin Souza MD PA [id number] Castillo Souza MD 2017-08-30 13:51:00 2017-08-30 13:51:00 Outpatient Martin ANNE [id number] Castillo Souza MD 2017-08-01 10:00:00 2017-08-01 10:00:00 Outpatient Martin ANNE [id number] Castillo Souza MD 2017-07-22 12:45:00 2017-07-22 15:00:00 Departed Emergency Room [facility] [id number] [facility] 2017-07-16 21:24:00 2017-07-17 05:59:00 Outpt Diag Services [facility] Outpatient Imaging - [place] [id number] [facility] [place] 2017-07-16 15:24:00 2017-07-16 23:59:00 Outpatient Melonie Shipman [facility] [id number] 2017-07-07 17:32:00 2017-07-07 17:32:00 Outpatient Martin Souza MD [place] [id number] Castillo Souza MD 2017-07-07 16:00:00 2017-07-07 16:00:00 Outpatient Martin ANNE [id number] CHELSEA Souza MD 2017-07-03 12:40:00 2017-07-03 16:25:00 Departed Emergency Room ER PATRICK DAMON [facility] [id number] [facility] 2017-06-22 15:33:00 2017-06-22 15:33:00 Outpatient Martin Souza MD PA [id number] CHELSEA Souza MD 2017-06-13 14:53:00 2017-06-15 12:32:00 Discharged Inpatient (obs) ER RODNEY SHIPMAN [facility] [id number] [facility] 2017-04-05 11:30:00 2017-04-05 11:30:00 Outpatient Martin Souza MD PA [id number] Castillo Souza MD 2017-03-07 11:57:00 2017-03-07 11:57:00 Outpatient Martin Souza MD PA [id number] Castillo Souza MD 2016-12-20 10:55:00 2016-12-20 10:55:00 Outpatient Martin Souza MD PA [id number] Castillo Souza MD 2016-11-04 11:56:00 2016-11-04 18:15:00 Day Surgery IEALT [facility] [id number] [facility] 2016-11-04 05:56:00 2016-11-04 12:15:00 Outpatient Dangelo Hand [facility] [id number] 2016-09-10 17:39:00 2016-09-10 17:39:00 Vitamin D JADENT Martin Souza MD [id number] Castillo Souza 2016-09-10 17:39:00 2016-09-10 17:39:00 Vitamin D JADENT Martin Souza MD [id number] Castillo Souza 2016-09-10 17:39:00 2016-09-10 17:39:00 Vitamin D JADENT Martin Souza MD [id number] Castillo Souza 2016-09-10 17:26:00 2016-09-10 17:26:00 Labs RUTH Souza MD [id number] Castillo Souza 2016-09-10 17:26:00 2016-09-10 17:26:00 Labs RUTH Souza MD [id number] Castillo Souza 2016-09-10 17:26:00 2016-09-10 17:26:00 Labs RUTH Souza MD [id number] Castillo Souza 2016-09-10 16:30:00 2016-09-10 16:30:00 6 [facility] PROLIA RUTH Souza MD [id number] Castillo Souza 2016-09-10 11:39:00 2016-09-10 11:39:00 Outpatient MD Martin De Jesus MD [id number] Castillo Souza MD 2016-09-10 11:26:00 2016-09-10 11:26:00 Outpatient MD Martin De Jesus MD [id number] Castillo Souza MD 2016-09-10 10:30:00 2016-09-10 10:30:00 Outpatient MD Martin De Jesus MD [id number] Castillo Souza MD 2016-05-06 20:34:00 2016-05-06 20:34:00 Prolia RUTH Souza MD [id number] Castillo Souza 2016-05-06 20:34:00 2016-05-06 20:34:00 Prolia RUTH Souza MD [id number] Castillo Souza 2016-05-06 20:34:00 2016-05-06 20:34:00 Prolia RUTH Souza MD [id number] Castillo Souza 2016-05-06 19:34:00 2016-05-06 19:34:00 Prolia RUTH Souza MD [id number] Castillo Souza 2016-05-06 14:34:00 2016-05-06 14:34:00 Outpatient MD Martin De Jesus MD [id number] Castillo Souza MD 2016-03-11 16:45:00 2016-03-11 16:45:00 Unknown MHIE[facility] Martin Souza MD [id number] Castillo Souza 2016-03-11 16:45:00 2016-03-11 16:45:00 Unknown MH[facility] Martin Souza MD [id number] Castillo Souza 2016-03-11 16:45:00 2016-03-11 16:45:00 Unknown MHIE[facility] Martin Souza MD [id number] Castillo Souza 2016-03-11 15:45:00 2016-03-11 15:45:00 Unknown MHIE[facility] Martin Souza MD [id number] Castillo Souza 2016-03-11 15:45:00 2016-03-11 15:45:00 Unknown MHIE[facility] Martin Souza MD [id number] Castillo Souza 2016-03-11 10:45:00 2016-03-11 10:45:00 Outpatient MD Martin De Jesus MD [id number] Castillo Souza MD 2016-03-03 20:18:00 2016-03-04 04:59:00 Outpt Diag Services [facility] Outpatient [facility] [id number] MH OPID [employer] 2016-03-03 15:18:00 2016-03-03 23:59:00 Outpatient Melonie Shipman MHOIB MHOIB [id number] 2016-02-25 18:39:00 2016-02-25 18:39:00 Update RUTH Souza MD [id number] Castillo Souza 2016-02-25 18:39:00 2016-02-25 18:39:00 Update RUTH Souza MD [id number] Castillo Souza 2016-02-25 18:39:00 2016-02-25 18:39:00 Update RUTH Souza MD [id number] Castillo Souza 2016-02-25 17:39:00 2016-02-25 17:39:00 Update RUTH Souza MD [id number] Castillo Souza 2016-02-25 17:39:00 2016-02-25 17:39:00 Update RUTH Souza MD [id number] Castillo Souza 2016-02-25 17:39:00 2016-02-25 17:39:00 Update RUTH Souza MD [id number] Castillo Souza 2016-02-25 12:39:00 2016-02-25 12:39:00 Outpatient MD Martin De Jesus MD [id number] MH Castillo Souza MD 2016-02-09 18:54:00 2016-02-09 18:54:00 Update RUTH Souza MD [id number] Castillo Souza 2016-02-09 18:54:00 2016-02-09 18:54:00 Update RUTH Souza MD [id number] Castilol Souza 2016-02-09 18:54:00 2016-02-09 18:54:00 Update RUTH Souza MD [id number] Castillo Souza 2016-02-09 17:54:00 2016-02-09 17:54:00 Update RUTH Souza MD [id number] Castillo Souza 2016-02-09 17:54:00 2016-02-09 17:54:00 Update RUTH Souza MD [id number] Castillo Souza 2016-02-09 17:54:00 2016-02-09 17:54:00 Update RUTH Souza MD [id number] Castillo Souza 2016-02-09 17:54:00 2016-02-09 17:54:00 Update RUTH Souza MD [id number] Castillo Souza 2016-02-09 12:54:00 2016-02-09 12:54:00 Outpatient MD Martin De Jesus MD [id number] Castillo Souza MD 2016-02-04 20:38:00 2016-02-04 20:38:00 Lab results RUTH Souza MD [id number] Castillo Souza 2016-02-04 20:38:00 2016-02-04 20:38:00 Lab results RUTH Souza MD [id number] Castillo Souza 2016-02-04 20:38:00 2016-02-04 20:38:00 Lab results MARYT Martin Souza MD [id number] Castillo Souza 2016-02-04 19:38:00 2016-02-04 19:38:00 Lab results MARYT Martin Souza MD [id number] Castillo Souza 2016-02-04 19:38:00 2016-02-04 19:38:00 Lab results MARYT Martin Souza MD [id number] Castillo Souza 2016-02-04 19:38:00 2016-02-04 19:38:00 Lab results RUTH Souza MD [id number] Castillo Souza 2016-02-04 19:38:00 2016-02-04 19:38:00 Lab results RUTH Souza MD [id number] Castillo Souza 2016-02-04 19:38:00 2016-02-04 19:38:00 Lab results RUTH Souza MD [id number] Castillo Souza 2016-02-04 14:38:00 2016-02-04 14:38:00 Outpatient MD Martin De Jesus MD [id number] Castillo Souza MD 2015-11-24 10:16:00 2015-11-24 17:30:00 OBS Day Surgery IEALT [facility] [id number] [facility] 2015-11-24 05:16:00 2015-11-24 12:30:00 Outpatient Dangelo Hand [facility] [id number] 2015-08-19 20:11:00 2015-08-20 05:59:00 Outpt Diag Services [facility] Outpatient Imaging - [place] [id number] MH OPID [place] 2015-08-19 14:11:00 2015-08-19 23:59:00 Outpatient Umberto Melonie sanon [place] [facility] [id number] 2015-07-11 01:02:00 2015-07-11 01:02:00 DEXA MHIEALT Martin Souza MD [id number] Castillo Souza 2015-07-11 01:02:00 2015-07-11 01:02:00 DEXA CHELSEAIEALT Martin Souza MD [id number] Castillo Souza 2015-07-11 01:02:00 2015-07-11 01:02:00 DEXA MARYT Martin Souza MD [id number] Castillo Souza 2015-07-11 01:02:00 2015-07-11 01:02:00 DEXA MARYT Martin Souza MD [id number] Castillo Souza 2015-07-11 00:02:00 2015-07-11 00:02:00 DEXA RUTH Souza MD [id number] Castillo Souza 2015-07-11 00:02:00 2015-07-11 00:02:00 DEXA MARYT Martin Souza MD [id number] Castillo Souza 2015-07-11 00:02:00 2015-07-11 00:02:00 DEXA MARYT Martin Souza MD [id number] Castillo Souza 2015-07-11 00:02:00 2015-07-11 00:02:00 DEXA RUTH Souza MD [id number] Castillo Souza 2015-07-11 00:02:00 2015-07-11 00:02:00 CECILLE Souza MD [id number] Castillonuha Souza 2015-07-10 19:02:00 2015-07-10 19:02:00 [facility] MD Martin De Jesus MD [id number] Castillo Souza MD 2015-06-17 21:30:00 2015-06-17 21:30:00 paris Souza MD [id number] Castillo Souza 2015-06-17 21:30:00 2015-06-17 21:30:00 paris Souza MD [id number] Castillo Souza 2015-06-17 21:30:00 2015-06-17 21:30:00 paris Souza MD [id number] Castillo Souza 2015-06-17 21:30:00 2015-06-17 21:30:00 paris Souza MD [id number] Castillo Souza 2015-06-17 20:30:00 2015-06-17 20:30:00 paris Souza MD [id number] Castillo Souza 2015-06-17 20:30:00 2015-06-17 20:30:00 paris Souza MD [id number] Castillo Souza 2015-06-17 20:30:00 2015-06-17 20:30:00 paris Souza MD [id number] Castillo Souza 2015-06-17 20:30:00 2015-06-17 20:30:00 paris Souza MD [id number] Castillo Souza 2015-06-17 20:30:00 2015-06-17 20:30:00 paris Souza MD [id number] Castillo Souza 2015-06-13 16:00:00 2015-06-13 16:00:00 6m fu RUTH Souza MD [id number] Castillo Souza 2015-06-13 16:00:00 2015-06-13 16:00:00 6m fu RUTH Souza MD [id number] Castillo Souza 2015-06-13 16:00:00 2015-06-13 16:00:00 6m fu RUTH Souza MD [id number] Castillo Souza 2015-06-13 16:00:00 2015-06-13 16:00:00 6m fu RUTH Souza MD [id number] Castillonuha Souza 2015-06-13 15:00:00 2015-06-13 15:00:00 6m fu RUTH Souza MD [id number] Castillonuha Souza 2015-06-13 15:00:00 2015-06-13 15:00:00 6m fu RUTH Souza MD [id number] Castillo Souza 2015-06-13 15:00:00 2015-06-13 15:00:00 6m fu RUTH Souza MD [id number] Castillo Souza 2015-06-13 15:00:00 2015-06-13 15:00:00 6m fu RUTH Souza MD [id number] Castillo Souza 2015-06-13 15:00:00 2015-06-13 15:00:00 6m fu RUTH Souza MD [id number] Castillo Souza 2015-03-24 14:18:00 2015-03-24 20:40:00 OBS Day Surgery IEALT [facility] [id number] [facility] 2015-03-24 09:18:00 2015-03-24 15:40:00 Outpatient Dangelo Hand [facility] [id number] 2015-01-23 16:15:00 2015-01-23 16:15:00 Appointment RUTH Souza MD [id number] Castillo Souza 2015-01-23 16:15:00 2015-01-23 16:15:00 Appointment RUTH Souza MD [id number] Castillo Souza 2015-01-23 16:15:00 2015-01-23 16:15:00 Appointment RUTH Souza MD [id number] Castillo Souza 2015-01-23 16:15:00 2015-01-23 16:15:00 Appointment RUTH Souza MD [id number] Castillo Souza 2015-01-23 15:15:00 2015-01-23 15:15:00 Appointment RUTH Souza MD [id number] Castillo Souza 2015-01-23 15:15:00 2015-01-23 15:15:00 Appointment RUTH Souza MD [id number] Castillo Souza 2015-01-23 15:15:00 2015-01-23 15:15:00 Appointment RUTH Souza MD [id number] Castillo Souza 2015-01-23 15:15:00 2015-01-23 15:15:00 Appointment RUTH Souza MD [id number] Castillo Souza 2015-01-23 15:15:00 2015-01-23 15:15:00 Appointment RUTH Souza MD [id number] Castillo Souza 2014-12-31 16:43:00 2014-12-31 16:43:00 Prolia RUTH Souza MD [id number] Castillo Souza 2014-12-31 16:43:00 2014-12-31 16:43:00 Taoia RUTH Souza MD [id number] Castillo Souza 2014-12-31 16:43:00 2014-12-31 16:43:00 Prolia RUTH Souza MD [id number] Castillo Souza 2014-12-31 16:43:00 2014-12-31 16:43:00 Prolia RUTH Souza MD [id number] Castillo Souza 2014-12-31 15:43:00 2014-12-31 15:43:00 Prolia RUTH Souza MD [id number] Castillo Souza 2014-12-31 15:43:00 2014-12-31 15:43:00 Taoia RUTH Souza MD [id number] Castillo Souza 2014-12-31 15:43:00 2014-12-31 15:43:00 Taoia RUTH Souza MD [id number] Castillo Souza 2014-12-31 15:43:00 2014-12-31 15:43:00 Catalino Souza MD [id number] Castillo Souza 2014-12-31 15:43:00 2014-12-31 15:43:00 Taoia RUTH Souza MD [id number] Castillo Souza 2014-12-31 15:43:00 2014-12-31 15:43:00 Taoia RUTH Souza MD [id number] Castillo Souza 2014-12-31 15:43:00 2014-12-31 15:43:00 Taoia RUTH Souza MD [id number] Castillo Souza 2014-12-31 10:43:00 2014-12-31 10:43:00 [facility] MD Martin De Jesus MD [id number] Castillo Souza MD 2014-12-20 20:20:00 2014-12-20 20:20:00 Prolia RUTH Souza MD [id number] Castillo Souza 2014-12-20 20:20:00 2014-12-20 20:20:00 Prolia RUTH Souza MD [id number] Castillo Souza 2014-12-20 20:20:00 2014-12-20 20:20:00 Prolia RUTH Souza MD [id number] Castillo Souza 2014-12-20 20:20:00 2014-12-20 20:20:00 Prolia RUTH Souza MD [id number] Castillo Souza 2014-12-20 19:20:00 2014-12-20 19:20:00 Prolia RUTH Souza MD [id number] Castillo Souza 2014-12-20 19:20:00 2014-12-20 19:20:00 Prolia RUTH Souza MD [id number] Castillo Souza 2014-12-20 19:20:00 2014-12-20 19:20:00 Prolia RUTH Souza MD [id number] Castillo Souza 2014-12-20 19:20:00 2014-12-20 19:20:00 Prolia RUTH Souza MD [id number] Castillo Souza 2014-12-20 19:20:00 2014-12-20 19:20:00 Prolia RUTH Souza MD [id number] Castillo Souza 2014-12-20 19:20:00 2014-12-20 19:20:00 Prolia RUTH Souza MD [id number] Castillo Souza 2014-12-20 19:20:00 2014-12-20 19:20:00 Prolia RUTH Souza MD [id number] Castillo Souza 2014-12-18 16:40:00 2014-12-18 16:40:00 MRI RUTH Souza MD [id number] Castillo Souza 2014-12-18 16:40:00 2014-12-18 16:40:00 MRI RUTH Souza MD [id number] Castillo Souza 2014-12-18 16:40:00 2014-12-18 16:40:00 MRI RUTH Souza MD [id number] Castillo Souza 2014-12-18 16:40:00 2014-12-18 16:40:00 MRI RUTH Souza MD [id number] Castillo Souza 2014-12-18 15:40:00 2014-12-18 15:40:00 MRI RUTH Souza MD [id number] Castillo Souza 2014-12-18 15:40:00 2014-12-18 15:40:00 MRI RUTH Souza MD [id number] Castillo Souza 2014-12-18 15:40:00 2014-12-18 15:40:00 MRI RUTH Souza MD [id number] Castillo Souza 2014-12-18 15:40:00 2014-12-18 15:40:00 MRI RUTH Souza MD [id number] Castillo Souza 2014-12-18 15:40:00 2014-12-18 15:40:00 MRI RUTH Souza MD [id number] Castillo Souza 2014-12-18 15:40:00 2014-12-18 15:40:00 MRI RUTH Souza MD [id number] Castillo Souza 2014-12-18 15:40:00 2014-12-18 15:40:00 MRI RUTH Souza MD [id number] Castillo Souza 2014-12-12 16:00:00 2014-12-12 16:00:00 6m fu RUTH Souza MD [id number] Castillo Souza 2014-12-12 16:00:00 2014-12-12 16:00:00 6m fu RUTH Souza MD [id number] Castillo Souza 2014-12-12 16:00:00 2014-12-12 16:00:00 6m fu RUTH Souza MD [id number] Castillo Souza 2014-12-12 16:00:00 2014-12-12 16:00:00 6m fu RUTH Souza MD [id number] Castillo Souza 2014-12-12 15:00:00 2014-12-12 15:00:00 6m fu RUTH Souza MD [id number] Castillonuha Souza 2014-12-12 15:00:00 2014-12-12 15:00:00 6m fu RUTH Souza MD [id number] Castillo Souza 2014-12-12 15:00:00 2014-12-12 15:00:00 6m fu RUTH Souza MD [id number] Castillonuha Souza 2014-12-12 15:00:00 2014-12-12 15:00:00 6m fu RUTH Souza MD [id number] Castillo Souza 2014-12-12 15:00:00 2014-12-12 15:00:00 6m fu RUTH Souza MD [id number] Castillonuha Souza 2014-12-12 15:00:00 2014-12-12 15:00:00 6m fu RUTH Souza MD [id number] Castillo Souza 2014-12-12 15:00:00 2014-12-12 15:00:00 6m fu RUTH Souza MD [id number] Castillo Souza 2014-12-12 10:00:00 2014-12-12 10:00:00 [facility] MD Martin De Jesus MD [id number] Castillo Souza MD 2014-12-06 15:30:00 2014-12-06 15:30:00 MRI [facility] Martin Souza MD [id number] Castillo Souza 2014-12-06 15:30:00 2014-12-06 15:30:00 MRI [facility] Martin Souza MD [id number] Castillo Souza 2014-12-06 15:30:00 2014-12-06 15:30:00 MRI [facility] Martin Souza MD [id number] [facility] Souza 2014-12-06 15:30:00 2014-12-06 15:30:00 [facility] Martin Souza MD [id number] [facility] Souza 2014-12-06 14:30:00 2014-12-06 14:30:00 [facility] Martin Souza MD [id number] Castillo Souza 2014-12-06 14:30:00 2014-12-06 14:30:00 [facility] Martin Souza MD [id number] [facility] Souza 2014-12-06 14:30:00 2014-12-06 14:30:00 [facility] Martin Souza MD [id number] [facility] Sou[facility] 2014-12-06 14:30:00 2014-12-06 14:30:00 [facility] RUTH Souza MD [id number] [facility] Souza 2014-12-06 14:30:00 2014-12-06 14:30:00 [facility] RUTH Souza MD [id number] [facility] 2014-12-06 14:30:00 2014-12-06 14:30:00 [facility] RUTH Souza MD [id number] [facility] Souza 2014-12-06 14:30:00 2014-12-06 14:30:00 [facility] RUTH Souza MD [id number] [facility] Souza 2014-06-13 15:15:00 2014-06-13 15:15:00 6m fu RUTH Souza MD [id number] [facility] 2014-06-13 15:15:00 2014-06-13 15:15:00 6m fu RUTH Souza MD [id number] [facility] 2014-06-13 15:15:00 2014-06-13 15:15:00 6m fu RUTH Souza MD [id number] [facility] Sou[facility] 2014-06-13 15:15:00 2014-06-13 15:15:00 6m fu RUTH Souza MD [id number] [facility] Souza 2014-06-13 15:15:00 2014-06-13 15:15:00 6m fu DAVIE Souza MD [id number] [facility] 2014-06-13 14:15:00 2014-06-13 14:15:00 6m fu DAVIE Souza MD [id number] [facility] 2014-06-13 14:15:00 2014-06-13 14:15:00 6m fu ZACHAZKatie Souza MD [id number] [facility] 2014-06-13 14:15:00 2014-06-13 14:15:00 6m fu DAVIE Souza MD [id number] [facility] 2014-06-13 14:15:00 2014-06-13 14:15:00 6m fu DAVIE Souza MD [id number] [facility] 2014-06-13 14:15:00 2014-06-13 14:15:00 6m fu DAVIE Souza MD [id number] [facility] 2014-06-13 14:15:00 2014-06-13 14:15:00 6m fu ZACHAZKatie Souza MD [id number] [facility] 2014-06-13 14:15:00 2014-06-13 14:15:00 6m fu RUTH Souza MD [id number] [facility] Sou[facility] 2014-06-13 09:15:00 2014-06-13 09:15:00 [facility] MD Martin De Jesus, [place] [id number] Castillo Souza MD 2014-05-01 14:00:00 2014-01-03 19:04:04 FUP, Provider: RODNEY WHEAT, Status: Ryan, Time: 2:00 PM [facility] [id number] [facility] 2014-01-03 14:04:05 2014-01-03 19:04:04 AUDIT [facility] [id number] [facility] 2014-01-03 14:04:05 2014-01-03 14:04:04 Outpatient MHIEA LT [facility] [id number] 2013-12-12 16:30:00 2013-12-12 16:30:00 6m fu [facility] Martin Souza MD [id number] [facility] 2013-12-12 16:30:00 2013-12-12 16:30:00 6m fu [facility] Martin Souza MD [id number] [facility] Sou[facility] 2013-12-12 16:30:00 2013-12-12 16:30:00 6m fu [facility] Martin Souza MD [id number] Cast[facility] Sou[facility] 2013-12-12 16:30:00 2013-12-12 16:30:00 6m fu [facility] Martin Souza MD [id number] [facility] 2013-12-12 16:30:00 2013-12-12 16:30:00 6m fu [facility] Martin Souza MD [id number] [facility] 2013-12-12 15:30:00 2013-12-12 15:30:00 6m fu [facility] Martin Souza MD [id number] [facility] 2013-12-12 15:30:00 2013-12-12 15:30:00 6m fu DAVIE Souza MD [id number] [facility] 2013-12-12 15:30:00 2013-12-12 15:30:00 6m fu DAVIE Souza MD [id number] [facility] 2013-12-12 15:30:00 2013-12-12 15:30:00 6m fu DAVIE Souza MD [id number] Castillon[facility]ha Souza 2013-12-12 15:30:00 2013-12-12 15:30:00 6m fu DAVIE Souza MD [id number] [facility] 2013-12-12 15:30:00 2013-12-12 15:30:00 6m fu DAVIE Souza MD [id number] [facility] 2013-12-12 15:30:00 2013-12-12 15:30:00 6m fu DAVIE Souza MD [id number] [facility] 2013-12-12 15:30:00 2013-12-12 15:30:00 6m fu DAVIE Souza MD [id number] [facility] 2013-12-12 10:30:00 2013-12-12 10:30:00 Outpatient MD Martin De Jesus MD [id number] Castillo Souza MD 2014-01-03 12:45:00 2013-11-08 13:32:05 FUP, Provider: RODNEY WHEAT, Status: Pen, Time: 12:45 PM [facility] [id number] [facility] 2013-11-08 08:32:06 2013-11-08 13:32:05 AUDIT [facility] [id number] [facility] 2013-11-08 08:32:06 2013-11-08 08:32:05 Outpatient [facility]IEA LT [facility] [id number] 2013-11-06 15:34:17 2013-11-06 20:34:17 AUDIT [facility] [id number] [facility] 2013-11-06 15:34:17 2013-11-06 15:34:17 Outpatient [facility]IE[facility] LT [facility] [id number] 2013-11-06 14:15:00 2013-10-25 15:32:03 FUP, Provider: RODNEY WHEAT, Status: Pen, Time: 2:15 PM [facility] [id number] [facility] 2013-10-25 09:32:03 2013-10-25 15:32:03 AUDIT [facility] [id number] [facility] 2013-10-25 09:32:03 2013-10-25 09:32:03 Outpatient MHIEA LT [facility] [id number] 2013-10-09 14:37:29 2013-10-09 20:37:28 AUDIT [facility] [id number] [facility] 2013-10-09 14:37:29 2013-10-09 14:37:28 Outpatient MHIEA LT [facility] [id number] 2013-10-09 14:15:00 2013-08-16 15:31:37 FUP, Provider: RODNEY WHEAT, Status: Pen, Time: 2:15 PM [facility] [id number] [facility] 2013-09-05 14:15:00 2013-08-16 15:31:37 FUP, Provider: RODNEY WHEAT, Status: Pen, Time: 2:15 PM [facility] [id number] [facility] 2013-08-16 09:31:38 2013-08-16 15:31:37 AUDIT [facility] [id number] [facility] 2013-08-16 09:31:38 2013-08-16 09:31:37 Outpatient [facility]IE[facility] LT [facility] [id number] 2013-08-09 14:33:17 2013-08-09 20:33:17 AUDIT [facility] [id number] [facility] 2013-08-09 14:33:17 2013-08-09 14:33:17 Outpatient MHIEA LT [facility] [id number] 2013-08-09 12:15:00 2013-07-12 19:01:33 FUP, Provider: RODNEY WHEAT, Status: Pen, Time: 12:15 PM [facility] [id number] [facility] 2013-07-12 13:01:33 2013-07-12 19:01:33 AUDIT [facility] [id number] [facility] 2013-07-12 13:01:33 2013-07-12 13:01:33 Outpatient MHIEA LT [facility] [id number] 2013-06-18 11:04:20 2013-06-18 16:04:19 AUDIT [facility] [id number] [facility] 2013-06-18 11:04:20 2013-06-18 11:04:19 Outpatient MHIEA LT [facility] [id number] 2013-06-07 11:45:00 2013-06-04 15:02:02 FUP, Provider: RODNEY WHEAT, Status: Pen, Time: 11:45 AM MHIEALT MHIEALT [id number] [facility] ysicians 2013-06-04 10:02:03 2013-06-04 15:02:02 AUDIT MHIEALT MHIEALT [id number] [place] [facility] 2013-06-04 10:02:03 2013-06-04 10:02:02 Outpatient MHIEA LT MHIEALT [id number] 2013-05-29 10:32:01 2013-05-29 15:32:01 AUDIT MHIEALT MHIEALT [id number] [place] [facility] 2013-05-29 10:32:01 2013-05-29 10:32:01 Outpatient MHIEA LT MHIEALT [id number] Results Test Description Test Time Test Comments Results Result Comments Source B-Type Natriuretic Peptide 2019-10-05 12:05:00 Test Item B-Type Natriuretic Peptide (test code = 44881-3) 199.4 0-100 H [facility] AntonioCreatine Kinase [id number] 12:04:00* Test Item Value Reference Range Interpretation Comments Creatine Kinase MB (test code = 06644-9) 1.10 0-5.0 [facility] AntonioTroponin [id number] 12:04:00* Test Item Value Reference Range Interpretation Comments Troponin I (test code = VMI8162) 0.021 0-0.300 [facility] Ytpee9288-52-20 11:58:00* Test Item Value Reference Range Interpretation Comments Sodium Level (test code = 2951-2) 142 136-145 [facility] AntonioPotassium Gamdf7811-89-29 11:58:00* Test Item Value Reference Range Interpretation Comments Potassium Level (test code = 2823-3) 3.9 3.5-5.1 [facility] AntonioChloride Vtqai8602-22-83 11:58:00* Test Item Value Reference Range Interpretation Comments Chloride Level (test code = 2075-0) 105 98-107 [facility] AntonioCarbon Dioxide Flwcf5748-72-14 11:58:00* Test Item Value Reference Range Interpretation Comments Carbon Dioxide Level (test code = 2028-9) 23 22-29 [facility] AntonioAnion Ulw9838-32-98 11:58:00* Test Item Value Reference Range Interpretation Comments Anion Gap (test code = 56928-4) 17.9 8-16 H [facility] AntonioBlood Urea Ngwytzza9061-64-30 11:58:00* Test Item Value Reference Range Interpretation Comments Blood Urea Nitrogen (test code = 3094-0) 37 7-26 H [facility] AntonioCreatinine2020-02-07 11:58:00* Test Item Value Reference Range Interpretation Comments Creatinine (test code = 2160-0) 6.64 0.57-1.11 H [facility] AntonioBUN/Creatinine Augyd2545-82-34 11:58:00* Test Item Value Reference Range Interpretation Comments BUN/Creatinine Ratio (test code = 3097-3) 6 6-25 [facility] AntonioEstimat Glomerular Filtration Rate 2019-10-05 11:58:00* Test Item Value Reference Range Interpretation Comments Estimat Glomerular Filtration Rate (test code = 765663866) 6 >60 L Ranges were taken from the National Kidney Disease Education Program and the Replaced by [facility] literature.Reference ranges:60 or greater: Nsazpv80-92 ( for 3 consecutive months): Chronic kidney disease 15 or less: Kidney failureChildren[facility] Hospital of San AntonioGlucose Jodse4091-62-64 11:58:00* Test Item Value Reference Range Interpretation Comments Glucose Level (test code = ZWM2891) 117 74-118 [facility] AntonioCalcium Mxuuu0880-55-61 11:58:00* Test Item Value Reference Range Interpretation Comments Calcium Level (test code = 98175-6) 9.5 8.4-10.2 [facility] AntonioTotal Xnlkskbst5516-42-48 11:58:00* Test Item Value Reference Range Interpretation Comments Total Bilirubin (test code = 1975-2) 0.5 0.2-1.2 [facility] AntonioAspartate Amino Transf (AST/SGOT) 2019-10-05 11:58:00* Test Item Value Reference Range Interpretation Comments Aspartate Amino Transf (AST/SGOT) (test code = Aspartate Amino Transf (AST/SGOT)) 15 5-34 [facility] AntonioAlanine Aminotransferase (ALT/SGPT) 2019-10-05 11:58:00* Test Item Value Reference Range Interpretation Comments Alanine Aminotransferase (ALT/SGPT) (test code = 1742-6) 10 0-55 [facility] AntonioTotal Aozwaaq3084-12-93 11:58:00* Test Item Value Reference Range Interpretation Comments Total Protein (test code = 2885-2) 7.0 6.5-8.1 [facility] AntonioAlbumin2020-02-07 11:58:00* Test Item Value Reference Range Interpretation Comments Albumin (test code = 1751-7) 3.3 3.5-5.0 L [facility] AntonioGlobulin2020-02-07 11:58:00* Test Item Value Reference Range Interpretation Comments Globulin (test code = 98183-3) 3.7 2.3-3.5 H [facility] AntonioAlbumin/Globulin Xtgry7511-43-76 11:58:00 * Test Item Value Reference Range Interpretation Comments Albumin/Globulin Ratio (test code = 1759-0) 0.9 0.8-2.0 [facility] AntonioAlkaline Ltglahvuxco3908-59-75 11:58:00* Test Item Value Reference Range Interpretation Comments Alkaline Phosphatase (test code = 6768-6) 108 40-150 [facility] AntonioCreatine Yyutav0674-45-25 11:58:00* Test Item Value Reference Range Interpretation Comments Creatine Kinase (test code = 2157-6) 33 29-168 [facility] AntonioProthrombin Xhyn1936-16-81 11:50:00* Test Item Value Reference Range Interpretation Comments Prothrombin Time (test code = 5902-2) 14.2 11.9-14.5 [facility] AntonioProthromb Time International Ratio 2019-10-05 11:50:00* Test Item Value Reference Range Interpretation Comments Prothromb Time International Ratio (test code = 6301-6) 1.04 Oral Anticoagulant Therapy INR Values:1. Low Intensity Therapy 1.5 - 2.02 . Moderate Intensity Therapy 2.0 - 3.03. High Intensity Therapy(1) 2.5 - 3. 54. High Intensity Therapy(2) 3.0 - 4.05. Panic Value INR > 5.0 [facility] AntonioActivated Partial Thromboplast Time 2019-10-05 11:50:00* Test Item Value Reference Range Interpretation Comments Activated Partial Thromboplast Time (test code = 69426-2) 31.2 23.8-35.5 [facility] AntonioWhite Blood Cvzdo9740-91-66 11:38:00* Test Item Value Reference Range Interpretation Comments White Blood Count (test code = 6690-2) 7.09 4.8-10.8 [facility] AntonioRed Blood Qhcke4177-50-70 11:38:00* Test Item Value Reference Range Interpretation Comments Red Blood Count (test code = 789-8) 4.87 3.6-5.1 [facility] AntonioHemoglobin2020-02-07 11:38:00* Test Item Value Reference Range Interpretation Comments Hemoglobin (test code = 38544-4) 14.1 12.0-16.0 [facility] AntonioHematocrit2020-02-07 11:38:00* Test Item Value Reference Range Interpretation Comments Hematocrit (test code = 4544-3) 43.8 34.2-44.1 [facility] AntonioMean Corpuscular Ssftbi6398-43-24 11:38:00* Test Item Value Reference Range Interpretation Comments Mean Corpuscular Volume (test code = 787-2) 89.9 81-99 [facility] AntonioMean Corpuscular Wxesxkjzre7284-20-89 11:38:00* Test Item Value Reference Range Interpretation Comments Mean Corpuscular Hemoglobin (test code = 785-6) 29.0 28-32 [facility] AntonioMean Corpuscular Hemoglobin Concent 2019-10-05 11:38:00* Test Item Value Reference Range Interpretation Comments Mean Corpuscular Hemoglobin Concent (test code = 786-4) 32.2 31-35 [facility] AntonioRed Cell Distribution Cdtdt3957-39-57 11:38:00* Test Item Value Reference Range Interpretation Comments Red Cell Distribution Width (test code = 04426-3) 13.6 11.7 -14.4 [facility] AntonioPlatelet Vtkva0009-01-87 11:38:00* Test Item Value Reference Range Interpretation Comments Platelet Count (test code = 777-3) 112 140-360 L [facility] AntonioNeutrophils (%) (Auto)2019-10-05 11:38:00 * Test Item Value Reference Range Interpretation Comments Neutrophils (%) (Auto) (test code = 09250-5) 73.5 38.7-80.0 [facility] AntonioLymphocytes (%) (Auto)2019-10-05 11:38:00 * Test Item Value Reference Range Interpretation Comments Lymphocytes (%) (Auto) (test code = 736-9) 15.8 18.0-39.1 L [facility] AntonioMonocytes (%) (Auto)2019-10-05 11:38:00* Test Item Value Reference Range Interpretation Comments Monocytes (%) (Auto) (test code = 5905-5) 7.9 4.4-11.3 [facility] AntonioEosinophils (%) (Auto)2019-10-05 11:38:00 * Test Item Value Reference Range Interpretation Comments Eosinophils (%) (Auto) (test code = 713-8) 1.8 0.0-6.0 [facility] AntonioBasophils (%) (Auto)2019-10-05 11:38:00* Test Item Value Reference Range Interpretation Comments Basophils (%) (Auto) (test code = 706-2) 0.6 0.0-1.0 [facility] AntonioIM GRANULOCYTES %2019-10-05 11:38:00* Test Item Value Reference Range Interpretation Comments IM GRANULOCYTES % (test code = IM GRANULOCYTES %) 0.4 0.0- 1.0 [facility] AntonioNeutrophils # (Auto)2019-10-05 11:38:00* Test Item Value Reference Range Interpretation Comments Neutrophils # (Auto) (test code = 751-8) 5.2 2.1-6.9 [facility] AntonioLymphocytes # (Auto)2019-10-05 11:38:00* Test Item Value Reference Range Interpretation Comments Lymphocytes # (Auto) (test code = 09903-0) 1.1 1.0-3.2 [facility] AntonioMonocytes # (Auto)2019-10-05 11:38:00* Test Item Value Reference Range Interpretation Comments Monocytes # (Auto) (test code = 742-7) 0.6 0.2-0.8 [facility] AntonioEosinophils # (Auto)2019-10-05 11:38:00* Test Item Value Reference Range Interpretation Comments Eosinophils # (Auto) (test code = 711-2) 0.1 0.0-0.4 [facility] AntonioBasophils # (Auto)2019-10-05 11:38:00* Test Item Value Reference Range Interpretation Comments Basophils # (Auto) (test code = 704-7) 0.0 0.0-0.1 [facility] AntonioAbsolute Immature Granulocyte (auto 2019-10-05 11:38:00* Test Item Value Reference Range Interpretation Comments Absolute Immature Granulocyte (auto (karo t code = Absolute Immature Granulocyte (auto) 0.03 0-0.1 [facility] AntonioCHEST SINGLE (PORTABLE)2019-10-05 10:58:00 [place] [id number] Patient Name: MIGUEL FONTENOT MR #: [id number] : 1935 Age/Sex: 84/F Req #: [id number] Adm Physician: Ordered by: LOY SO SNUFF MAKER Report #: [id number] Location: ER Room/Bed: Procedure: 0207-0 034 DX/CHEST SINGLE (PORTABLE) Exam Date: 10/05/19 E xam Time: 1025 REPORT STATUS: Velia soto Chest, 1 view, 10/05/2019. History: Slurred speech, headache. Comparison: 09/22/2019. Findings: The cardiomediastinal silhouette and pu lmonary vasculature are within normal limits for a portable exam. There is daria cification of the aortic arch. There is no focal consolidation or pleural effu serenity. There are no acute osseous or soft tissue abnormalities. Impressio n: No acute cardiopulmonary abnormality. Signed by: Loy Millan on 10/05 10:58 AM Dictated By: LOY MILLAN MD 105 Transcribed By: YAQUELIN on 10/05/191057 COPY TO: LOY SO SNUFF MAKER CT BRAIN WS6253-39-05 10:55:00 [place] [address] Patient Name: MIGUEL FONTENOT MR #: [id number] : 07/1935 Age/Sex: 84/F Req #: [id number] Adm Physician: Ordered by: LOY SO NP Report #: [id number] Location: ER Room/Bed: Procedure: 0207-[address]/CT BRAIN WO Exam Date: 10/05/19 Exam Time: 06 22 REPORT STATUS: Signed EXAMINA TION: Head CT HISTORY: Headache, standard speech, TIA COMPARISON: Brain MRI and head CT of 09/22/2019 TECHNIQUE: Multidetector axial images were obtai walter without contrast from the foramen magnum to the vertex . The images were r econstructed using brain and bone algorithms. Thin section brain images were reformatted into coronal and sagittal planes. Image quality: Motion/streakin g artifact limits the evaluation of the skull base and posterior cranial fossa . Dose modulation, iterative reconstruction, and/or weight based adjustment of the mA/kV was utilized to reduce the radiation dose to as low as reasonably achievable. FINDINGS: Parenchyma: 1. Persistent mild to m oderate chronic microvascular ischemic changes. 2. No mass or hemorrhage. No CT evidence of acute territorial vascular insult. Extra-axial s paces:No abnormal density. No extra-axial fluid collections . Unchanged small 1 x 0.5 cm extra-axial lesion in the left frontal convexity, most likely a sma ll meningioma without associated mass effect. Brain volume: Normal for ag e. Ventricles: No hydrocephalus or displacement. Arteries: No d ensity suggestive of thrombus. Dural sinuses: No abnormal density. Foramen magnum: No mass, Chiari malformation, or basilar invagination. Sella: No obvious mass. Paranasal/mastoid sinuses: Imaged portions un remarkable. Skull/Scalp: Diffuse heterogeneous bone marrow density, may be related to osteopenia , unchanged compared to head CT of 09/22/2019. IM PRESSION: 1. No acute intracranial abnormalities. 2. Stable mild chroni c microvascular ischemic changes. 3. Unchanged tiny left frontal meningioma w ithout mass effect. Signed by: Dr. Cezar Rosario M.D. on 10/05/2019 11:01 AM Dictated By: CEZAR ROSARIO MD 1101 COPY TO: AUGUSTO SO SNUFF MAKER Sodium Townd5496-25-70 07:12:00* Test Item Value Reference Range Interpretation Comments Sodium Level (test code = 2951-2) 138 136-145 [facility] AntonioPotassium Wnfbp7150-74-87 07:12:00* Test Item Value Reference Range Interpretation Comments Potassium Level (test code = 2823-3) 3.6 3.5-5.1 [facility] AntonioChloride Slxnj2250-20-75 07:12:00* Test Item Value Reference Range Interpretation Comments Chloride Level (test code = 2075-0) 105 98-107 [facility] AntonioCarbon Dioxide Egkvv0466-96-71 07:12:00* Test Item Value Reference Range Interpretation Comments Carbon Dioxide Level (test code = 2028-9) 21 22-29 L [facility] AntonioAnion Dav8649-86-33 07:12:00* Test Item Value Reference Range Interpretation Comments Anion Gap (test code = 11310-9) 15.6 8-16 [facility] AntonioBlood Urea Lnngwdwk7914-39-88 07:12:00* Test Item Value Reference Range Interpretation Comments Blood Urea Nitrogen (test code = 3094-0) 32 7-26 H [facility] AntonioCreatinine2020-01-26 07:12:00* Test Item Value Reference Range Interpretation Comments Creatinine (test code = 2160-0) 5.68 0.57-1.11 H [facility] AntonioBUN/Creatinine Wasks5872-37-26 07:12:00* Test Item Value Reference Range Interpretation Comments BUN/Creatinine Ratio (test code = 3097-3) 6 6-25 [facility] AntonioEstimat Glomerular Filtration Rate 2019-09-23 07:12:00* Test Item Value Reference Range Interpretation Comments Estimat Glomerular Filtration Rate (test code = 126345688) 7 >60 L Ranges were taken from the National Kidney Disease Education Program and the Replaced by [facility] literature.Reference ranges:60 or greater: Obcwwg06-62 ( for 3 consecutive months): Chronic kidney disease 15 or less: Kidney failureCHI Peterson Regional Medical CenterGlucose Bucrw7534-67-50 07:12:00* Test Item Value Reference Range Interpretation Comments Glucose Level (test code = UBR5839) 108 74-118 [facility] AntonioCalcium Rarwo4600-77-47 07:12:00* Test Item Value Reference Range Interpretation Comments Calcium Level (test code = 88732-1) 9.6 8.4-10.2 [facility] AntonioTotal Ztxmqpohn7728-49-39 07:12:00* Test Item Value Reference Range Interpretation Comments Total Bilirubin (test code = 1975-2) 0.3 0.2-1.2 [facility] AntonioAspartate Amino Transf (AST/SGOT) 2019-09-23 07:12:00* Test Item Value Reference Range Interpretation Comments Aspartate Amino Transf (AST/SGOT) (test code = Aspartate Amino Transf (AST/SGOT)) 12 5-34 [facility] AntonioAlanine Aminotransferase (ALT/SGPT) 2019-09-23 07:12:00* Test Item Value Reference Range Interpretation Comments Alanine Aminotransferase (ALT/SGPT) (test code = 1742-6) 11 0-55 [facility] AntonioTotal Peoldye3366-42-58 07:12:00* Test Item Value Reference Range Interpretation Comments Total Protein (test code = 2885-2) 6.2 6.5-8.1 L [facility] AntonioAlbumin2020-01-26 07:12:00* Test Item Value Reference Range Interpretation Comments Albumin (test code = 1751-7) 2.3 3.5-5.0 L [facility] AntonioGlobulin2020-01-26 07:12:00* Test Item Value Reference Range Interpretation Comments Globulin (test code = 80695-4) 3.9 2.3-3.5 H [facility] AntonioAlbumin/Globulin Mpcuz3194-24-90 07:12:00 * Test Item Value Reference Range Interpretation Comments Albumin/Globulin Ratio (test code = 1759-0) 0.6 0.8-2.0 L [facility] AntonioAlkaline Vgalngtpadh7662-79-38 07:12:00* Test Item Value Reference Range Interpretation Comments Alkaline Phosphatase (test code = 6768-6) 99 40-150 [facility] AntonioTriglycerides Znqof5697-97-65 07:12:00* Test Item Value Reference Range Interpretation Comments Triglycerides Level (test code = 2571-8) 95 0-149 [facility] AntonioCholesterol Lhogy7736-57-22 07:12:00* Test Item Value Reference Range Interpretation Comments Cholesterol Level (test code = 2093-3) 120 0-199 Less than 200 mg/dL Low Xypa082 - 239 mg/dL Borderline Xrjf102 m g/dl and greater High Risk [facility] AntonioLDL Vneuyoocnhl6036-69-09 07:12:00* Test Item Value Reference Range Interpretation Comments LDL Cholesterol (test code = 2089-1) 59 60-130 L [facility] AntonioHDL Rsaedznodec1289-57-69 07:12:00* Test Item Value Reference Range Interpretation Comments HDL Cholesterol (test code = 2085-9) 42 40-60 [facility] AntonioCholesterol/HDL Zcbyk2625-86-80 07:12:00 * Test Item Value Reference Range Interpretation Comments Cholesterol/HDL Ratio (test code = 9830-1) 2.9 3.0-3.6 L [facility]odium Rekty4530-74-58 07:12:00* Test Item Value Reference Range Interpretation Comments Sodium Level (test code = 2951-2) 138 136-145 [facility] AntonioPotassium Zphtp6849-74-91 07:12:00* Test Item Value Reference Range Interpretation Comments Potassium Level (test code = 2823-3) 3.6 3.5-5.1 [facility] AntonioChloride Vbktf2661-57-77 07:12:00* Test Item Value Reference Range Interpretation Comments Chloride Level (test code = 2075-0) 105 98-107 [facility] AntonioCarbon Dioxide Lzoly2206-43-36 07:12:00* Test Item Value Reference Range Interpretation Comments Carbon Dioxide Level (test code = 2028-9) 21 22-29 L [facility] AntonioAnion Faj6168-23-72 07:12:00* Test Item Value Reference Range Interpretation Comments Anion Gap (test code = 25254-0) 15.6 8-16 [facility] AntonioBlood Urea Bqujfgbv3181-93-03 07:12:00* Test Item Value Reference Range Interpretation Comments Blood Urea Nitrogen (test code = 3094-0) 32 7-26 H [facility] AntonioCreatinine2020-01-26 07:12:00* Test Item Value Reference Range Interpretation Comments Creatinine (test code = 2160-0) 5.68 0.57-1.11 H [facility] AntonioBUN/Creatinine Gzynf4674-24-41 07:12:00* Test Item Value Reference Range Interpretation Comments BUN/Creatinine Ratio (test code = 3097-3) 6 6-25 [facility] AntonioEstimat Glomerular Filtration Rate 2019-09-23 07:12:00* Test Item Value Reference Range Interpretation Comments Estimat Glomerular Filtration Rate (test code = 827918150) 7 >60 L Ranges were taken from the National Kidney Disease Education Program and the [facility] literature.Reference ranges:60 or greater: Nfmjsg04-69 ( for 3 consecutive months): Chronic kidney disease 15 or less: Kidney failureChildren's Hospital of San AntonioGlucose Gtgkp8244-14-56 07:12:00* Test Item Value Reference Range Interpretation Comments Glucose Level (test code = KOD5926) 108 74-118 [facility] AntonioCalcium Ejjop2082-11-23 07:12:00* Test Item Value Reference Range Interpretation Comments Calcium Level (test code = 71824-9) 9.6 8.4-10.2 [facility] AntonioTotal Bfenyqill7480-46-71 07:12:00* Test Item Value Reference Range Interpretation Comments Total Bilirubin (test code = 1975-2) 0.3 0.2-1.2 [facility] AntonioAspartate Amino Transf (AST/SGOT) 2019-09-23 07:12:00* Test Item Value Reference Range Interpretation Comments Aspartate Amino Transf (AST/SGOT) (test code = Aspartate Amino Transf (AST/SGOT)) 12 5-34 [facility] AntonioAlanine Aminotransferase (ALT/SGPT) 2019-09-23 07:12:00* Test Item Value Reference Range Interpretation Comments Alanine Aminotransferase (ALT/SGPT) (test code = 1742-6) 11 0-55 [facility] AntonioTotal Qkglmxn5051-37-08 07:12:00* Test Item Value Reference Range Interpretation Comments Total Protein (test code = 2885-2) 6.2 6.5-8.1 L [facility] AntonioAlbumin2020-01-26 07:12:00* Test Item Value Reference Range Interpretation Comments Albumin (test code = 1751-7) 2.3 3.5-5.0 L [facility] AntonioGlobulin2020-01-26 07:12:00* Test Item Value Reference Range Interpretation Comments Globulin (test code = 98433-5) 3.9 2.3-3.5 H [facility] AntonioAlbumin/Globulin Htysl9041-72-24 07:12:00 * Test Item Value Reference Range Interpretation Comments Albumin/Globulin Ratio (test code = 1759-0) 0.6 0.8-2.0 L [facility] AntonioAlkaline Gzmxzwrnmaa9094-28-37 07:12:00* Test Item Value Reference Range Interpretation Comments Alkaline Phosphatase (test code = 6768-6) 99 40-150 [facility] AntonioTriglycerides Zxutv4518-03-73 07:12:00* Test Item Value Reference Range Interpretation Comments Triglycerides Level (test code = 2571-8) 95 0-149 [facility] AntonioCholesterol Fiyow7408-77-97 07:12:00* Test Item Value Reference Range Interpretation Comments Cholesterol Level (test code = 2093-3) 120 0-199 Less than 200 mg/dL Low Sbnc369 - 239 mg/dL Borderline Rfcy447 m g/dl and greater High Risk [facility] AntonioLDL Edjivsrlltx1819-50-43 07:12:00* Test Item Value Reference Range Interpretation Comments LDL Cholesterol (test code = 2089-1) 59 60-130 L [facility] Xyjwkclgozd2786-71-52 07:12:00* Test Item Value Reference Range Interpretation Comments HDL Cholesterol (test code = 2085-9) 42 40-60 [facility] AntonioCholesterol/HDL Scuwh3488-70-17 07:12:00 * Test Item Value Reference Range Interpretation Comments Cholesterol/HDL Ratio (test code = 9830-1) 2.9 3.0-3.6 L [facility] AntonioTriglycerides Iuahj4631-16-53 07:12:00* Test Item Value Reference Range Interpretation Comments Triglycerides Level (test code = 2571-8) 95 0-149 [facility] AntonioCholesterol Tgogt0728-86-07 07:12:00* Test Item Value Reference Range Interpretation Comments Cholesterol Level (test code = 2093-3) 120 0-199 Less than 200 mg/dL Low Phbt804 - 239 mg/dL Borderline Boja744 m g/dl and greater High Risk [facility] AntonioLDL Qqbxqbhaqgl5914-81-67 07:12:00* Test Item Value Reference Range Interpretation Comments LDL Cholesterol (test code = 2089-1) 59 60-130 L [facility] Auqsrkycqzm2085-35-37 07:12:00* Test Item Value Reference Range Interpretation Comments HDL Cholesterol (test code = 2085-9) 42 40-60 [facility] AntonioCholesterol/HDL Qbbwr8070-84-50 07:12:00 * Test Item Value Reference Range Interpretation Comments Cholesterol/HDL Ratio (test code = 9830-1) 2.9 3.0-3.6 L [facility] AntonioCreatine Knzjuj9933-87-20 07:10:00* Test Item Value Reference Range Interpretation Comments Creatine Kinase (test code = 2157-6) 82 29-168 [facility] AntonioCreatine Kinase UW3621-76-81 07:10:00* Test Item Value Reference Range Interpretation Comments Creatine Kinase MB (test code = 49599-9) 1.50 0-5.0 [facility] AntonioTroponin G4692-16-04 07:10:00* Test Item Value Reference Range Interpretation Comments Troponin I (test code = LBT6001) 0.007 0-0.300 [facility] Rpwoxh7709-76-05 07:10:00* Test Item Value Reference Range Interpretation Comments Creatine Kinase (test code = 2157-6) 82 29-168 [facility] AntonioCreatine Kinase KE1164-24-33 07:10:00* Test Item Value Reference Range Interpretation Comments Creatine Kinase MB (test code = 68285-2) 1.50 0-5.0 [facility] AntonioTroponin S0117-10-07 07:10:00* Test Item Value Reference Range Interpretation Comments Troponin I (test code = WFF7804) 0.007 0-0.300 [facility] Blood Ydtaw4485-18-69 06:42:00* Test Item Value Reference Range Interpretation Comments White Blood Count (test code = 6690-2) 7.78 4.8-10.8 [facility] AntonioRed Blood Odemy9494-92-48 06:42:00* Test Item Value Reference Range Interpretation Comments Red Blood Count (test code = 789-8) 4.80 3.6-5.1 [facility]Hemoglobin2020-01-26 06:42:00* Test Item Value Reference Range Interpretation Comments Hemoglobin (test code = 78831-3) 13.9 12.0-16.0 [facility] AntonioHematocrit2020-01-26 06:42:00* Test Item Value Reference Range Interpretation Comments Hematocrit (test code = 4544-3) 42.5 34.2-44.1 [facility] AntonioMean Corpuscular Rwiobd1004-28-98 06:42:00* Test Item Value Reference Range Interpretation Comments Mean Corpuscular Volume (test code = 787-2) 88.5 81-99 [facility] AntonioMean Corpuscular Mujffoalyq6142-74-21 06:42:00* Test Item Value Reference Range Interpretation Comments Mean Corpuscular Hemoglobin (test code = 785-6) 29.0 28-32 [facility] AntonioMean Corpuscular Hemoglobin Concent 2019-09-23 06:42:00* Test Item Value Reference Range Interpretation Comments Mean Corpuscular Hemoglobin Concent (test code = 786-4) 32.7 31-35 [facility] AntonioRed Cell Distribution Wuiqs5219-32-85 06:42:00* Test Item Value Reference Range Interpretation Comments Red Cell Distribution Width (test code = 95383-7) 13.7 11.7 -14.4 [facility] AntonioPlatelet Gsldz2306-63-78 06:42:00* Test Item Value Reference Range Interpretation Comments Platelet Count (test code = 777-3) 147 140-360 [facility] AntonioNeutrophils (%) (Auto)2019-09-23 06:42:00 * Test Item Value Reference Range Interpretation Comments Neutrophils (%) (Auto) (test code = 87073-2) 72.4 38.7-80.0 [facility] AntonioLymphocytes (%) (Auto)2019-09-23 06:42:00 * Test Item Value Reference Range Interpretation Comments Lymphocytes (%) (Auto) (test code = 736-9) 13.4 18.0-39.1 L [facility] AntonioMonocytes (%) (Auto)2019-09-23 06:42:00* Test Item Value Reference Range Interpretation Comments Monocytes (%) (Auto) (test code = 5905-5) 10.3 4.4-11.3 [facility] AntonioEosinophils (%) (Auto)2019-09-23 06:42:00 * Test Item Value Reference Range Interpretation Comments Eosinophils (%) (Auto) (test code = 713-8) 3.0 0.0-6.0 [facility] Antonio[facility]ophils (%) (Auto)2019-09-23 06:42:00* Test Item Value Reference Range Interpretation Comments Basophils (%) (Auto) (test code = 706-2) 0.6 0.0-1.0 [facility] AntonioIM GRANULOCYTES %2019-09-23 06:42:00* Test Item Value Reference Range Interpretation Comments IM GRANULOCYTES % (test code = IM GRANULOCYTES %) 0.3 0.0- 1.0 [facility] AntonioNeutrophils # (Auto)2019-09-23 06:42:00* Test Item Value Reference Range Interpretation Comments Neutrophils # (Auto) (test code = 751-8) 5.6 2.1-6.9 [facility] AntonioLymphocytes # (Auto)2019-09-23 06:42:00* Test Item Value Reference Range Interpretation Comments Lymphocytes # (Auto) (test code = 29540-7) 1.0 1.0-3.2 [facility] AntonioMonocytes # (Auto)2019-09-23 06:42:00* Test Item Value Reference Range Interpretation Comments Monocytes # (Auto) (test code = 742-7) 0.8 0.2-0.8 [facility] AntonioEosinophils # (Auto)2019-09-23 06:42:00* Test Item Value Reference Range Interpretation Comments Eosinophils # (Auto) (test code = 711-2) 0.2 0.0-0.4 [facility] AntonioBasophils # (Auto)2019-09-23 06:42:00* Test Item Value Reference Range Interpretation Comments Basophils # (Auto) (test code = 704-7) 0.1 0.0-0.1 [facility] AntonioAbsolute Immature Granulocyte (auto 2019-09-23 06:42:00* Test Item Value Reference Range Interpretation Comments Absolute Immature Granulocyte (auto (karo t code = Absolute Immature Granulocyte (auto) 0.02 0-0.1 [facility] AntonioWhite Blood Gfstj1393-67-33 06:42:00* Test Item Value Reference Range Interpretation Comments White Blood Count (test code = 6690-2) 7.78 4.8-10.8 [facility] AntonioRed Blood Niohw2710-70-93 06:42:00* Test Item Value Reference Range Interpretation Comments Red Blood Count (test code = 789-8) 4.80 3.6-5.1 [facility] AntonioHemoglobin2020-01-26 06:42:00* Test Item Value Reference Range Interpretation Comments Hemoglobin (test code = 05843-8) 13.9 12.0-16.0 [facility] AntonioHematocrit2020-01-26 06:42:00* Test Item Value Reference Range Interpretation Comments Hematocrit (test code = 4544-3) 42.5 34.2-44.1 [facility] AntonioMean Corpuscular Nghlxl1944-79-07 06:42:00* Test Item Value Reference Range Interpretation Comments Mean Corpuscular Volume (test code = 787-2) 88.5 81-99 [facility] AntonioMean Corpuscular Btxgewjjnz4737-62-34 06:42:00* Test Item Value Reference Range Interpretation Comments Mean Corpuscular Hemoglobin (test code = 785-6) 29.0 28-32 [facility] AntonioMean Corpuscular Hemoglobin Concent 2019-09-23 06:42:00* Test Item Value Reference Range Interpretation Comments Mean Corpuscular Hemoglobin Concent (test code = 786-4) 32.7 31-35 [facility] AntonioRed Cell Distribution Iodot0458-23-84 06:42:00* Test Item Value Reference Range Interpretation Comments Red Cell Distribution Width (test code = 75905-0) 13.7 11.7 -14.4 [facility] AntonioPlatelet Nplec9152-23-19 06:42:00* Test Item Value Reference Range Interpretation Comments Platelet Count (test code = 777-3) 147 140-360 [facility] AntonioNeutrophils (%) (Auto)2019-09-23 06:42:00 * Test Item Value Reference Range Interpretation Comments Neutrophils (%) (Auto) (test code = 82036-9) 72.4 38.7-80.0 [facility] AntonioLymphocytes (%) (Auto)2019-09-23 06:42:00 * Test Item Value Reference Range Interpretation Comments Lymphocytes (%) (Auto) (test code = 736-9) 13.4 18.0-39.1 L [facility] AntonioMonocytes (%) (Auto)2019-09-23 06:42:00* Test Item Value Reference Range Interpretation Comments Monocytes (%) (Auto) (test code = 5905-5) 10.3 4.4-11.3 [facility] AntonioEosinophils (%) (Auto)2019-09-23 06:42:00 * Test Item Value Reference Range Interpretation Comments Eosinophils (%) (Auto) (test code = 713-8) 3.0 0.0-6.0 [facility] AntonioBasophils (%) (Auto)2019-09-23 06:42:00* Test Item Value Reference Range Interpretation Comments Basophils (%) (Auto) (test code = 706-2) 0.6 0.0-1.0 [facility] AntonioIM GRANULOCYTES %2019-09-23 06:42:00* Test Item Value Reference Range Interpretation Comments IM GRANULOCYTES % (test code = IM GRANULOCYTES %) 0.3 0.0- 1.0 [facility] AntonioNeutrophils # (Auto)2019-09-23 06:42:00* Test Item Value Reference Range Interpretation Comments Neutrophils # (Auto) (test code = 751-8) 5.6 2.1-6.9 [facility] AntonioLymphocytes # (Auto)2019-09-23 06:42:00* Test Item Value Reference Range Interpretation Comments Lymphocytes # (Auto) (test code = 26264-4) 1.0 1.0-3.2 [facility] AntonioMonocytes # (Auto)2019-09-23 06:42:00* Test Item Value Reference Range Interpretation Comments Monocytes # (Auto) (test code = 742-7) 0.8 0.2-0.8 [facility] AntonioEosinophils # (Auto)2019-09-23 06:42:00* Test Item Value Reference Range Interpretation Comments Eosinophils # (Auto) (test code = 711-2) 0.2 0.0-0.4 [facility] AntonioBasophils # (Auto)2019-09-23 06:42:00* Test Item Value Reference Range Interpretation Comments Basophils # (Auto) (test code = 704-7) 0.1 0.0-0.1 [facility] AntonioAbsolute Immature Granulocyte (auto 2019-09-23 06:42:00* Test Item Value Reference Range Interpretation Comments Absolute Immature Granulocyte (auto (karo t code = Absolute Immature Granulocyte (auto) 0.02 0-0.1 [facility] AntonioUrine Lznso8066-38-27 18:05:00* Test Item Value Reference Range Interpretation Comments Urine Color (test code = 5778-6) YELLOW YELLOW [facility] AntonioU[facility] Ejnrewa1195-99-02 18:05:00* Test Item Value Reference Range Interpretation Comments Urine Clarity (test code = 77742-7) CLEAR CLEAR [facility] AntonioU[facility] Specific Lbaadho9381-42-98 18:05:00 * Test Item Value Reference Range Interpretation Comments Urine Specific [place] (test code = 5811-5) 1.010 1.010-1.02 5 [facility] AntonioU[facility] tU6009-36-72 18:05:00* Test Item Value Reference Range Interpretation Comments Urine pH (test code = 94591-7) 7 5-7 [facility] Leukocyte Okhggith2210-10-60 18:05:00* Test Item Value Reference Range Interpretation Comments Urine Leukocyte Esterase (test code = 5799-2) NEGATIVE NEGATIVE [facility] AntonioU[facility] Rsmifxy8664-96-99 18:05:00* Test Item Value Reference Range Interpretation Comments Urine Nitrite (test code = 31650-9) NEGATIVE NEGATIVE [facility] AntonioU[facility] Danwrkq0217-48-30 18:05:00* Test Item Value Reference Range Interpretation Comments Urine Protein (test code = 5804-0) 1+ NEGATIVE H [facility] AntonioU[facility] Glucose (UA)2019-09-22 18:05:00* Test Item Value Reference Range Interpretation Comments Urine Glucose (UA) (test code = 2349-9) NEGATIVE NEGATIVE [facility] AntonioU[facility] Wujqvtn3470-17-30 18:05:00* Test Item Value Reference Range Interpretation Comments Urine Ketones (test code = 56150-4) NEGATIVE NEGATIVE [facility] Qoqlrnjdryqe1446-13-84 18:05:00* Test Item Value Reference Range Interpretation Comments Urine Urobilinogen (test code = 04020-8) 0.2 0.2-1 [facility] Ixbyyybef4636-36-31 18:05:00* Test Item Value Reference Range Interpretation Comments Urine Bilirubin (test code = 1978-6) NEGATIVE NEGATIVE [facility] Wnxvk6989-46-17 18:05:00* Test Item Value Reference Range Interpretation Comments Urine Blood (test code = 52300-3) 1+ NEGATIVE [facility] FOA9902-77-32 18:05:00* Test Item Value Reference Range Interpretation Comments Urine WBC (test code = 5821-4) 6-10 0-5 H [facility] UAV3417-07-27 18:05:00* Test Item Value Reference Range Interpretation Comments Urine RBC (test code = 62932-0) 0-5 0-5 [facility] Whgxluhb8043-72-57 18:05:00* Test Item Value Reference Range Interpretation Comments Urine Bacteria (test code = 87659-4) RARE NONE [facility] Epithelial Tqbza9696-17-97 18:05:00 * Test Item Value Reference Range Interpretation Comments Urine Epithelial Cells (test code = 76927-3) FEW NONE [facility] Fctfz2877-58-71 18:05:00* Test Item Value Reference Range Interpretation Comments Urine Color (test code = 5778-6) YELLOW YELLOW [facility] Fuaipoh7294-93-10 18:05:00* Test Item Value Reference Range Interpretation Comments Urine Clarity (test code = 40809-6) CLEAR CLEAR [facility] Specific Mwzzycw3541-50-16 18:05:00 * Test Item Value Reference Range Interpretation Comments Urine Specific [place] (test code = 5811-5) 1.010 1.010-1.02 5 [facility] AntonioU[facility] lD4957-49-98 18:05:00* Test Item Value Reference Range Interpretation Comments Urine pH (test code = 05980-4) 7 5-7 [facility] Leukocyte Legjynwd6716-05-68 18:05:00* Test Item Value Reference Range Interpretation Comments Urine Leukocyte Esterase (test code = 5799-2) NEGATIVE NEGATIVE [facility] Sgrrbpe3245-59-39 18:05:00* Test Item Value Reference Range Interpretation Comments Urine Nitrite (test code = 96158-3) NEGATIVE NEGATIVE [facility] Ypnsljq1608-53-09 18:05:00* Test Item Value Reference Range Interpretation Comments Urine Protein (test code = 5804-0) 1+ NEGATIVE H [facility] AntonioU[facility] Glucose (UA)2019-09-22 18:05:00* Test Item Value Reference Range Interpretation Comments Urine Glucose (UA) (test code = 2349-9) NEGATIVE NEGATIVE [facility] Wyplpsi1202-93-48 18:05:00* Test Item Value Reference Range Interpretation Comments Urine Ketones (test code = 43032-0) NEGATIVE NEGATIVE [facility] Kkrizmbpwisf5123-02-94 18:05:00* Test Item Value Reference Range Interpretation Comments Urine Urobilinogen (test code = 46696-9) 0.2 0.2-1 [facility] Cinezibpl8718-12-12 18:05:00* Test Item Value Reference Range Interpretation Comments Urine Bilirubin (test code = 1978-6) NEGATIVE NEGATIVE [facility] Epzgv6209-79-53 18:05:00* Test Item Value Reference Range Interpretation Comments Urine Blood (test code = 59602-6) 1+ NEGATIVE [facility] ECE9555-84-63 18:05:00* Test Item Value Reference Range Interpretation Comments Urine WBC (test code = 5821-4) 6-10 0-5 H [facility] QRI9084-14-70 18:05:00* Test Item Value Reference Range Interpretation Comments Urine RBC (test code = 85410-6) 0-5 0-5 [facility] Zuusgibw4453-44-09 18:05:00* Test Item Value Reference Range Interpretation Comments Urine Bacteria (test code = 01983-9) RARE NONE [facility] Epithelial Dqnjr8365-73-68 18:05:00 * Test Item Value Reference Range Interpretation Comments Urine Epithelial Cells (test code = 29094-1) FEW NONE [facility] Antonio[facility] Hstde1948-73-69 18:05:00* Test Item Value Reference Range Interpretation Comments Urine Color (test code = 5778-6) YELLOW YELLOW [facility] Cffbrra5351-62-01 18:05:00* Test Item Value Reference Range Interpretation Comments Urine Clarity (test code = 92447-4) CLEAR CLEAR [facility] Specific Dsplfbd5983-61-93 18:05:00 * Test Item Value Reference Range Interpretation Comments Urine Specific [place] (test code = 5811-5) 1.010 1.010-1.02 5 [facility] xL2498-57-56 18:05:00* Test Item Value Reference Range Interpretation Comments Urine pH (test code = 50685-6) 7 5-7 [facility] Leukocyte Kmzlutxt2472-79-07 18:05:00* Test Item Value Reference Range Interpretation Comments Urine Leukocyte Esterase (test code = 5799-2) NEGATIVE NEGATIVE [facility] Hzabgcl2244-02-70 18:05:00* Test Item Value Reference Range Interpretation Comments Urine Nitrite (test code = 78444-6) NEGATIVE NEGATIVE [facility] Kiymaym2193-07-56 18:05:00* Test Item Value Reference Range Interpretation Comments Urine Protein (test code = 5804-0) 1+ NEGATIVE H [facility] Antonio[facility] Glucose (UA)2019-09-22 18:05:00* Test Item Value Reference Range Interpretation Comments Urine Glucose (UA) (test code = 2349-9) NEGATIVE NEGATIVE [facility] Btjekjw4033-35-69 18:05:00* Test Item Value Reference Range Interpretation Comments Urine Ketones (test code = 85859-1) NEGATIVE NEGATIVE [facility] Rkkuaqfquekp4355-52-00 18:05:00* Test Item Value Reference Range Interpretation Comments Urine Urobilinogen (test code = 77478-0) 0.2 0.2-1 [facility] Bmlghkzsx0973-71-99 18:05:00* Test Item Value Reference Range Interpretation Comments Urine Bilirubin (test code = 1978-6) NEGATIVE NEGATIVE [facility] Uqjmh8576-28-97 18:05:00* Test Item Value Reference Range Interpretation Comments Urine Blood (test code = 29217-5) 1+ NEGATIVE [facility] KQS6415-61-52 18:05:00* Test Item Value Reference Range Interpretation Comments Urine WBC (test code = 5821-4) 6-10 0-5 H [facility] Antonio[facility] LWB2448-76-59 18:05:00* Test Item Value Reference Range Interpretation Comments Urine RBC (test code = 78449-0) 0-5 0-5 [facility] Gqyugjdp8730-96-85 18:05:00* Test Item Value Reference Range Interpretation Comments Urine Bacteria (test code = 15075-3) RARE NONE [facility] Epithelial Zvefu5456-58-60 18:05:00 * Test Item Value Reference Range Interpretation Comments Urine Epithelial Cells (test code = 12277-9) FEW NONE [facility] AntonioMRI BRAIN GF6550-02-02 16:23:00 [place] [address] Patient Name: MIGUEL FONTENOT MR #: [id number] : 07/1935 Age/Sex: 84/F Req #: [id number] [facility] Physician: RODNEY SHIPMAN MD Ordered by: ERICKA GREENE MD Report #: [id number] Location: MED/SURG2 Room/Bed: [facility] [place] Procedure: 0125-00 03 MRI/MRI BRAIN WO Exam Date: Exam Time: REPORT STATUS: Signed History: Stroke, w eakness, slurred speech Comparison studies: Prior brain MRI 06/14/2017. Same-d ay head CT 09/22/2019 at 12:31 hours Technique: Sagittal and axial T2 F S, axial DWI, axial T2*GRE, axial T1 FLAIR and axial and coronal T2 FLAIR. I ntravenous contrast: None Findings: Scalp: Normal in signal. No masses . Bone marrow: Normal in signal intensity. Brain sulci: Prominent. Vent ricles: Mild compensatory dilatation. No hydrocephalus. Extra axial spaces: Incidental unchanged 13 mm x 5 mm extra-axial mass at the left frontal convex ity without mass effect, likely meningioma. No other mass or fluid collection. Parenchyma: No mass, hemorrhage or acute ischemia. A few scattered and m ildly confluent T2 FLAIR hyperintense foci in the supratentorial white matter and in the catina are nonspecific but are most compatible with chronic microvasc ular ischemic changes. Suprasellar region: No abnormalities. Craniocerv ical junction: Patent foramen magnum. No Chiari malformation. Vessels: Normal flow-voids in the arteries and sinuses. Incidental findings: Intraocular l ens replacements for previous cataract surgery. IMPRESSION: No acute intracranial abnormalities. Chronic findings: 1. Mild to moderate gener alized parenchymal volume loss. 2. Mild microvascular ischemic changes. 3. Small left frontal meningioma without mass effect. Signed by: Dr. Atilio Estes M.D. on 09/22/2019 4:36 PM Dictated By: ATILIO ABARCA MD Electro nically Signed By: ATILIO ABARCA MD on 09/22/191635 Transcribed By: YAQUELIN on 09/22/191635 COPY TO: ERICKA GREENE MD CHEST SINGLE (PORTABLE)2019-09-22 13:34:00 [place] [address] Patient Name: MIGUEL FONTENOT MR #: [id number] : 1935 Age/Sex: 84/F Req #: [id number] Adm Physician: Ordered by: LOY SO SNUFF MAKER Report #: [id number] Location: ER Room/Bed: Procedure: 0125-0 021 DX/CHEST SINGLE (PORTABLE) Exam Date: 09/22/19 E xam Time: 1315 REPORT STATUS: Velia d Chest, AP. History: Having a stroke. Comparison: Portable chest 1 10/24/2017. Discussion: Lines and support catheters: None. Cardiova scular: The cardiomediastinal silhouette and pulmonary vasculature are within normal limits. Scattered atherosclerotic changes of the aortic arch. Media stinum: No mediastinal, hilar, or axillary mass or lymphadenopathy. Lungs : No parenchymal mass. No focal consolidation. Bibasilar atelectasis. Pleu ra: No pleural effusion or pneumothorax. Bones: No acute osseous abnorma lity. Degenerative changes of the thoracic spine. Impression: Bibasil ar subsegmental atelectasis. Signed by: Dr. Barron Ngo i, M.D. on 09/22/2019 1:36 PM Dictated By: QUE JACKSON MD, MD [facility] Signed By: QUE JACKSON MD, MD on 09/22/191335 Transcribed By: YAQUELIN on 09/22/191335 COPY TO: LOY SO SNUFF MAKER Prothrombin Time 2019-09-22 13:06:00* Test Item Value Reference Range Interpretation Comments Prothrombin Time (test code = 5902-2) 14.0 11.9-14.5 [facility] AntonioProthromb Time International Ratio 2019-09-22 13:06:00* Test Item Value Reference Range Interpretation Comments Prothromb Time International Ratio (test code = 6301-6) 1.03 Oral Anticoagulant Therapy INR Values:1. Low Intensity Therapy 1.5 - 2.02 . Moderate Intensity Therapy 2.0 - 3.03. High Intensity Therapy(1) 2.5 - 3. 54. High Intensity Therapy(2) 3.0 - 4.05. Panic Value INR > 5.0 [facility] AntonioActivated Partial Thromboplast Time 2019-09-22 13:06:00* Test Item Value Reference Range Interpretation Comments Activated Partial Thromboplast Time (test code = 85168-7) 35.5 23.8-35.5 [facility] AntonioProthrombin Nxur3614-48-63 13:06:00* Test Item Value Reference Range Interpretation Comments Prothrombin Time (test code = 5902-2) 14.0 11.9-14.5 [facility] AntonioProthromb Time International Ratio 2019-09-22 13:06:00* Test Item Value Reference Range Interpretation Comments Prothromb Time International Ratio (test code = 6301-6) 1.03 Oral Anticoagulant Therapy INR Values:1. Low Intensity Therapy 1.5 - 2.02 . Moderate Intensity Therapy 2.0 - 3.03. High Intensity Therapy(1) 2.5 - 3. 54. High Intensity Therapy(2) 3.0 - 4.05. Panic Value INR > 5.0 [facility] AntonioActivated Partial Thromboplast Time 2019-09-22 13:06:00* Test Item Value Reference Range Interpretation Comments Activated Partial Thromboplast Time (test code = 18548-5) 35.5 23.8-35.5 [facility] AntonioCT BRAIN [id number] 12:42:00 [facility] [address] [place] [address] Patient Name: MIGUEL FONTENOT MR #: [id number] : 07/1935 Age/Sex: 84/F Req #: [id number] Adm Physician: Ordered by: LOY SO NP Report #: [id number] Location: ER Room/Bed: Procedure: 0125-[address]/CT BRAIN WO Exam Date: Exam Time: REPORT STATUS: Signed Exam: Head CT witho ut contrast History: Stroke Comparison studies: Head CT 05/15/2018 Brandon hnique: Axial images were obtained from the skull base to the vertex. Glynn l and sagittal images reconstructed from the axial data. Dose modulation, ite rative reconstruction, and/or weight based adjustment of the mA/kV was utilize d to reduce the radiation dose to as low as reasonably achievable. Radi ation dose: Total DLP: 921.4 mGy*cm. Estimated effective dose: DLP x 0.015 Intravenous contrast: None Findings: Scalp: No abnormalities. Dilip radha: No fractures, blastic or lytic lesions. Brain sulci: Mild prominent. Ventricles: Mild compensatory dilatation. No hydrocephalus. Extra-axial space s: Unchanged incidental small left frontal extra axial lesion without mass eff ect, likely meningioma. Parenchyma: No mass, acute hemorrhage or acute or chronic cortical insults. A few subtle hypodensities in the supratentorial white matter are nonspecific but are most compatible with chronic microvascula r ischemic changes. Sellar/suprasellar region: No abnormalities. Cranioce rvical junction: Patent foramen magnum. No Chiari one malformation. Inciden talat findings: Bilateral intraocular lens replacement for previous cataract haylie donaldo. Atherosclerotic calcifications in the carotid siphons and intradural ve rtebral arteries. IMPRESSION: No acute intracranial abnormalities. Chronic findings: 1. Generalized parenchymal volume loss. 2. Mild mi crovascular ischemic changes. 3. Unchanged small left frontal extra-axial les ion, likely meningioma. Signed by: Dr. Atilio Abarca M.D. on 09/22/2019 12: 46 PM Dictated By: ATILIO ABARCA MD 45 Transcribed By: YAQUELIN on 09/22/191245 COPY TO: LOY OS SNUFF MAKER Blood Jvdhudf2239-49-48 17:23:00* Test Item Value Reference Range Interpretation Comments Blood Culture (test code = 96078180) NO GROWTH AFTER 72 HOURS [facility] HQHJOXOZ9545-38-75 19:38:00 [facility] [address] [place] [address] Patient Name: MIGUEL FONTENOT MR #: [id number] : 07/1935 Age/Sex: 83/F Req #: [id number] Adm Physician: RODNEY SHIPMAN MD Ordered by: RODNEY SHIPMAN MD Report #: [id number] Location: MED/SURG3 Room/Bed: [facility] Procedure: 0318- 0062 DX/FOOT RIGHT COMPLETE Exam Date: 11/13/18 Exam Time: 1839 REPORT STATUS: Signed RIGHT FOOT - 3 Images HISTORY: Cellulitis COMPARISON: None meg ilable. FINDINGS: Bones: No acute displaced fracture. No aggre ssive osseous lesion. Joints: Mild scattered degenerative changes, m ost notably the first metatarsophalangeal joint. Soft tissues: Nonspeci fic curvilinear calcification along the lateral aspect of the third metatarsop halangeal joint, likely the skull of remote trauma. Mild nonspecific soft tiss ue swelling. IMPRESSION: 1. Nonspecific soft tissue swelling. 2. No radiographic evidence of osteomyelitis. Signed by: Lana ShelleyOGloria , M.M.M. on 11/13/2018 7:44 PM Dictated By: YOJANA STEVENS DO 43 Transcribed By: YAQUELIN on 11/13/181943 COPY TO: RODNEY SHIPMAN MD Uric Bafx1392-25-03 18:28:00* Test Item Value Reference Range Interpretation Comments Uric Acid (test code = 3084-1) 6.3 2.6-8.0 [facility] Mvgzj4410-84-82 06:42:00* Test Item Value Reference Range Interpretation Comments Sodium Level (test code = 2951-2) 142 136-145 [facility] Mvdyi5873-75-49 06:42:00* Test Item Value Reference Range Interpretation Comments Potassium Level (test code = 2823-3) 3.9 3.5-5.1 [facility] AntonioChloride Wvljx4315-17-84 06:42:00* Test Item Value Reference Range Interpretation Comments Chloride Level (test code = 2075-0) 108 98-107 H [facility] AntonioCarbon Dioxide Uiaju7788-85-20 06:42:00* Test Item Value Reference Range Interpretation Comments Carbon Dioxide Level (test code = 2028-9) 26 22-29 [facility] AntonioAnion Lrd5335-36-47 06:42:00* Test Item Value Reference Range Interpretation Comments Anion Gap (test code = 18194-3) 11.9 8-16 [facility] AntonioBlood Urea Snprbqpn0318-65-32 06:42:00* Test Item Value Reference Range Interpretation Comments Blood Urea Nitrogen (test code = 3094-0) 24 7-26 [facility] AntonioCreatinine2019-03-18 06:42:00* Test Item Value Reference Range Interpretation Comments Creatinine (test code = 2160-0) 5.30 0.57-1.11 H [facility] AntonioBUN/Creatinine Lwqsd5549-78-52 06:42:00* Test Item Value Reference Range Interpretation Comments BUN/Creatinine Ratio (test code = 3097-3) 5 6-25 L [facility] AntonioEstimat Glomerular Filtration Rate 2018-11-13 06:42:00* Test Item Value Reference Range Interpretation Comments Estimat Glomerular Filtration Rate (test code = 295860159) 8 >60 L Ranges were taken from the National Kidney Disease Education Program and the Replaced by [facility] Foundation literature.Reference ranges:60 or greater: Qzdppu89-76 ( for 3 consecutive months): Chronic kidney disease 15 or less: Kidney failureChildren[facility] Hospital of San AntonioGlucose Nyttu0176-11-31 06:42:00* Test Item Value Reference Range Interpretation Comments Glucose Level (test code = SFO6518) 104 74-118 [facility] AntonioCalcium Lceng9588-65-11 06:42:00* Test Item Value Reference Range Interpretation Comments Calcium Level (test code = 75907-2) 7.9 8.4-10.2 L [facility] AntonioWhite Blood Vwfpe5477-11-79 06:30:00* Test Item Value Reference Range Interpretation Comments White Blood Count (test code = 6690-2) 5.78 4.8-10.8 [facility] AntonioRed Blood Ivxab9696-32-84 06:30:00* Test Item Value Reference Range Interpretation Comments Red Blood Count (test code = 789-8) 4.09 3.6-5.1 [facility] AntonioHemoglobin2019-03-18 06:30:00* Test Item Value Reference Range Interpretation Comments Hemoglobin (test code = 73740-1) 11.8 12.0-16.0 L [facility] AntonioHematocrit2019-03-18 06:30:00* Test Item Value Reference Range Interpretation Comments Hematocrit (test code = 4544-3) 38.5 34.2-44.1 [facility] AntonioMean Corpuscular Xbdize6655-02-35 06:30:00* Test Item Value Reference Range Interpretation Comments Mean Corpuscular Volume (test code = 787-2) 94.1 81-99 [facility] AntonioMean Corpuscular Ilsegkznbc8815-07-66 06:30:00* Test Item Value Reference Range Interpretation Comments Mean Corpuscular Hemoglobin (test code = 785-6) 28.9 28-32 [facility] AntonioMean Corpuscular Hemoglobin Concent 2018-11-13 06:30:00* Test Item Value Reference Range Interpretation Comments Mean Corpuscular Hemoglobin Concent (test code = 786-4) 30.6 31-35 L [facility] AntonioRed Cell Distribution Axyet1328-41-19 06:30:00* Test Item Value Reference Range Interpretation Comments Red Cell Distribution Width (test code = 11111-7) 17.5 11.7 -14.4 H [facility] AntonioPlatelet Pmqrp9716-60-04 06:30:00* Test Item Value Reference Range Interpretation Comments Platelet Count (test code = 777-3) 144 140-360 [facility] AntonioNeutrophils (%) (Auto)2018-11-13 06:30:00 * Test Item Value Reference Range Interpretation Comments Neutrophils (%) (Auto) (test code = 10332-3) 63.9 38.7-80.0 [facility] AntonioLymphocytes (%) (Auto)2018-11-13 06:30:00 * Test Item Value Reference Range Interpretation Comments Lymphocytes (%) (Auto) (test code = 736-9) 19.9 18.0-39.1 [facility] AntonioMonocytes (%) (Auto)2018-11-13 06:30:00* Test Item Value Reference Range Interpretation Comments Monocytes (%) (Auto) (test code = 5905-5) 9.3 4.4-11.3 [facility] AntonioEosinophils (%) (Auto)2018-11-13 06:30:00 * Test Item Value Reference Range Interpretation Comments Eosinophils (%) (Auto) (test code = 713-8) 6.1 0.0-6.0 H [facility] AntonioBasophils (%) (Auto)2018-11-13 06:30:00* Test Item Value Reference Range Interpretation Comments Basophils (%) (Auto) (test code = 706-2) 0.5 0.0-1.0 [facility] AntonioIM GRANULOCYTES %2018-11-13 06:30:00* Test Item Value Reference Range Interpretation Comments IM GRANULOCYTES % (test code = IM GRANULOCYTES %) 0.3 0.0- 1.0 [facility] AntonioNeutrophils # (Auto)2018-11-13 06:30:00* Test Item Value Reference Range Interpretation Comments Neutrophils # (Auto) (test code = 751-8) 3.7 2.1-6.9 [facility] AntonioLymphocytes # (Auto)2018-11-13 06:30:00* Test Item Value Reference Range Interpretation Comments Lymphocytes # (Auto) (test code = 43377-2) 1.2 1.0-3.2 [facility] AntonioMonocytes # (Auto)2018-11-13 06:30:00* Test Item Value Reference Range Interpretation Comments Monocytes # (Auto) (test code = 742-7) 0.5 0.2-0.8 [facility] AntonioEosinophils # (Auto)2018-11-13 06:30:00* Test Item Value Reference Range Interpretation Comments Eosinophils # (Auto) (test code = 711-2) 0.4 0.0-0.4 [facility] AntonioBasophils # (Auto)2018-11-13 06:30:00* Test Item Value Reference Range Interpretation Comments Basophils # (Auto) (test code = 704-7) 0.0 0.0-0.1 [facility] AntonioAbsolute Immature Granulocyte (auto 2018-11-13 06:30:00* Test Item Value Reference Range Interpretation Comments Absolute Immature Granulocyte (auto (karo t code = Absolute Immature Granulocyte (auto) 0.02 0-0.1 [facility] AntonioTotal Ketnulcov3526-66-48 16:40:00* Test Item Value Reference Range Interpretation Comments Total Bilirubin (test code = 1975-2) 0.3 0.2-1.2 [facility] AntonioAspartate Amino Transf (AST/SGOT) 2018-11-12 16:40:00* Test Item Value Reference Range Interpretation Comments Aspartate Amino Transf (AST/SGOT) (test code = Aspartate Amino Transf (AST/SGOT)) 16 5-34 [facility] AntonioAlanine Aminotransferase (ALT/SGPT) 2018-11-12 16:40:00* Test Item Value Reference Range Interpretation Comments Alanine Aminotransferase (ALT/SGPT) (test code = 1742-6) 9 0-55 [facility] AntonioTotal Xvixzlr2499-12-22 16:40:00* Test Item Value Reference Range Interpretation Comments Total Protein (test code = 2885-2) 7.0 6.5-8.1 [facility] AntonioAlbumin2019-03-17 16:40:00* Test Item Value Reference Range Interpretation Comments Albumin (test code = 1751-7) 2.3 3.5-5.0 L [facility] AntonioGlobulin2019-03-17 16:40:00* Test Item Value Reference Range Interpretation Comments Globulin (test code = 05985-6) 4.7 2.3-3.5 H [facility] AntonioAlbumin/Globulin Rqwbu7729-06-90 16:40:00 * Test Item Value Reference Range Interpretation Comments Albumin/Globulin Ratio (test code = 1759-0) 0.5 0.8-2.0 L [facility] AntonioAlkaline Auppchhtzrl7271-92-92 16:40:00* Test Item Value Reference Range Interpretation Comments Alkaline Phosphatase (test code = 6768-6) 75 40-150 [facility] Eeneo9220-18-29 09:12:00* Test Item Value Reference Range Interpretation Comments Sodium Level (test code = 2951-2) 135 136-145 L [facility] AntonioPotassium Xjblg8960-51-35 09:12:00* Test Item Value Reference Range Interpretation Comments Potassium Level (test code = 2823-3) 4.9 3.5-5.1 [facility] AntonioChloride Hxajw5759-11-22 09:12:00* Test Item Value Reference Range Interpretation Comments Chloride Level (test code = 2075-0) 104 98-107 [facility] AntonioCarbon Dioxide Dojqc5500-02-83 09:12:00* Test Item Value Reference Range Interpretation Comments Carbon Dioxide Level (test code = 2028-9) 23 22-29 [facility] AntonioAnion Jpi6373-54-25 09:12:00* Test Item Value Reference Range Interpretation Comments Anion Gap (test code = 28764-2) 12.9 8-16 [facility] AntonioBlood Urea Tfzsdzwe0214-67-38 09:12:00* Test Item Value Reference Range Interpretation Comments Blood Urea Nitrogen (test code = 3094-0) 55 7-26 H [facility] AntonioCreatinine2019-01-03 09:12:00* Test Item Value Reference Range Interpretation Comments Creatinine (test code = 2160-0) 6.32 0.57-1.11 H [facility] AntonioBUN/Creatinine Sjfvh0622-29-95 09:12:00* Test Item Value Reference Range Interpretation Comments BUN/Creatinine Ratio (test code = 3097-3) 9 6-25 [facility] AntonioEstimat Glomerular Filtration Rate 2018-08-31 09:12:00* Test Item Value Reference Range Interpretation Comments Estimat Glomerular Filtration Rate (test code = 872040509) 6 >60 L Ranges were taken from the National Kidney Disease Education Program and the [facility] literature.Reference ranges:60 or greater: Mccbzz00-94 ( for 3 consecutive months): Chronic kidney disease 15 or less: Kidney failureChildren's Hospital of San AntonioGlucose Pxnym2010-16-40 09:12:00* Test Item Value Reference Range Interpretation Comments Glucose Level (test code = WNM8756) 108 74-118 [facility] AntonioCalcium Sbkwd5781-49-84 09:12:00* Test Item Value Reference Range Interpretation Comments Calcium Level (test code = 66066-7) 10.1 8.4-10.2 [facility] AntonioWhite Blood Ikdmt5217-84-85 08:38:00* Test Item Value Reference Range Interpretation Comments White Blood Count (test code = 6690-2) 8.05 4.8-10.8 [facility] AntonioRed Blood Johvf4360-29-14 08:38:00* Test Item Value Reference Range Interpretation Comments Red Blood Count (test code = 789-8) 3.30 3.6-5.1 L [facility] AntonioHemoglobin2019-01-03 08:38:00* Test Item Value Reference Range Interpretation Comments Hemoglobin (test code = 81779-9) 9.1 12.0-16.0 L [facility] AntonioHematocrit2019-01-03 08:38:00* Test Item Value Reference Range Interpretation Comments Hematocrit (test code = 4544-3) 27.7 34.2-44.1 L [facility] AntonioMean Corpuscular Tflzzo4146-65-23 08:38:00* Test Item Value Reference Range Interpretation Comments Mean Corpuscular Volume (test code = 787-2) 83.9 81-99 [facility] AntonioMean Corpuscular Mhxkoudsjt4042-55-47 08:38:00* Test Item Value Reference Range Interpretation Comments Mean Corpuscular Hemoglobin (test code = 785-6) 27.6 28-32 L [facility] AntonioMean Corpuscular Hemoglobin Concent 2018-08-31 08:38:00* Test Item Value Reference Range Interpretation Comments Mean Corpuscular Hemoglobin Concent (test code = 786-4) 32.9 31-35 [facility] AntonioRed Cell Distribution Cxytp4114-62-86 08:38:00* Test Item Value Reference Range Interpretation Comments Red Cell Distribution Width (test code = 61451-4) 14.7 11.7 -14.4 H [facility] AntonioPlatelet Ffszg0162-89-71 08:38:00* Test Item Value Reference Range Interpretation Comments Platelet Count (test code = 777-3) 105 140-360 L [facility] AntonioNeutrophils (%) (Auto)2018-08-31 08:38:00 * Test Item Value Reference Range Interpretation Comments Neutrophils (%) (Auto) (test code = 87828-2) 72.3 38.7-80.0 [facility] AntonioLymphocytes (%) (Auto)2018-08-31 08:38:00 * Test Item Value Reference Range Interpretation Comments Lymphocytes (%) (Auto) (test code = 736-9) 16.6 18.0-39.1 L [facility] AntonioMonocytes (%) (Auto)2018-08-31 08:38:00* Test Item Value Reference Range Interpretation Comments Monocytes (%) (Auto) (test code = 5905-5) 6.7 4.4-11.3 [facility] AntonioEosinophils (%) (Auto)2018-08-31 08:38:00 * Test Item Value Reference Range Interpretation Comments Eosinophils (%) (Auto) (test code = 713-8) 3.2 0.0-6.0 [facility] AntonioBasophils (%) (Auto)2018-08-31 08:38:00* Test Item Value Reference Range Interpretation Comments Basophils (%) (Auto) (test code = 706-2) 0.7 0.0-1.0 [facility] AntonioIM GRANULOCYTES %2018-08-31 08:38:00* Test Item Value Reference Range Interpretation Comments IM GRANULOCYTES % (test code = IM GRANULOCYTES %) 0.5 0.0- 1.0 [facility] AntonioNeutrophils # (Auto)2018-08-31 08:38:00* Test Item Value Reference Range Interpretation Comments Neutrophils # (Auto) (test code = 751-8) 5.8 2.1-6.9 [facility] AntonioLymphocytes # (Auto)2018-08-31 08:38:00* Test Item Value Reference Range Interpretation Comments Lymphocytes # (Auto) (test code = 02548-0) 1.3 1.0-3.2 [facility] AntonioMonocytes # (Auto)2018-08-31 08:38:00* Test Item Value Reference Range Interpretation Comments Monocytes # (Auto) (test code = 742-7) 0.5 0.2-0.8 [facility] AntonioEosinophils # (Auto)2018-08-31 08:38:00* Test Item Value Reference Range Interpretation Comments Eosinophils # (Auto) (test code = 711-2) 0.3 0.0-0.4 [facility] AntonioBasophils # (Auto)2018-08-31 08:38:00* Test Item Value Reference Range Interpretation Comments Basophils # (Auto) (test code = 704-7) 0.1 0.0-0.1 [facility] AntonioAbsolute Immature Granulocyte (auto 2018-08-31 08:38:00* Test Item Value Reference Range Interpretation Comments Absolute Immature Granulocyte (auto (karo t code = Absolute Immature Granulocyte (auto) 0.04 0-0.1 [facility] B Surface Antibody, Quant 2018-08-29 08:17:00* Test Item Value Reference Range Interpretation Comments Hepatitis B Surface Antibody, Quant (test code = 5194-6) 863.2 Status of Immunity Anti-HBs Level Inconsistent with Immunity 0.0 - 9.9Consistent with Immunity >9.9[facility] Core Total Myltlqlr3071-76-44 08:17:00* Test Item Value Reference Range Interpretation Comments Hepatitis B Core Total Antibody (test code = 77017-6) Negative [facility] B Surface Jsmgrjp8858-51-88 08:17:00* Test Item Value Reference Range Interpretation Comments Hepatitis B Surface Antigen (test code = 5196-1) Negative [facility] B Core IgM Guuwhxhm3675-45-50 08:17:00* Test Item Value Reference Range Interpretation Comments Hepatitis B Core IgM Antibody (test code = 58107-6) Negative [facility] B Surface Antibody, Quant 2018-08-29 08:17:00* Test Item Value Reference Range Interpretation Comments Hepatitis B Surface Antibody, Quant (test code = 5194-6) 863.2 Status of Immunity Anti-HBs Level Inconsistent with Immunity 0.0 - 9.9Consistent with Immunity >9.9[facility] Core Total Vqxfampy6828-47-33 08:17:00* Test Item Value Reference Range Interpretation Comments Hepatitis B Core Total Antibody (test code = 06900-3) Negative [facility] B Surface Pswvetp1793-06-63 08:17:00* Test Item Value Reference Range Interpretation Comments Hepatitis B Surface Antigen (test code = 5196-1) Negative [facility] B Core IgM Rpmuhfzp0703-96-11 08:17:00* Test Item Value Reference Range Interpretation Comments Hepatitis B Core IgM Antibody (test code = 75252-2) Negative [facility] Kkpbjzwyr2322-59-04 07:47:00* Test Item Value Reference Range Interpretation Comments Total Bilirubin (test code = 1975-2) 0.9 0.2-1.2 [facility] AntonioAspartate Amino Transf (AST/SGOT) 2018-08-26 07:47:00* Test Item Value Reference Range Interpretation Comments Aspartate Amino Transf (AST/SGOT) (test code = Aspartate Amino Transf (AST/SGOT)) 21 5-34 [facility] AntonioAlanine Aminotransferase (ALT/SGPT) 2018-08-26 07:47:00* Test Item Value Reference Range Interpretation Comments Alanine Aminotransferase (ALT/SGPT) (test code = 1742-6) 15 0-55 [facility] AntonioTotal Xvytctw7762-09-92 07:47:00* Test Item Value Reference Range Interpretation Comments Total Protein (test code = 2885-2) 5.8 6.5-8.1 L [facility] AntonioAlbumin2018-12-29 07:47:00* Test Item Value Reference Range Interpretation Comments Albumin (test code = 1751-7) 2.6 3.5-5.0 L [facility] AntonioGlobulin2018-12-29 07:47:00* Test Item Value Reference Range Interpretation Comments Globulin (test code = 44535-6) 3.2 2.3-3.5 [facility] AntonioAlbumin/Globulin Fuxnq8221-08-69 07:47:00 * Test Item Value Reference Range Interpretation Comments Albumin/Globulin Ratio (test code = 1759-0) 0.8 0.8-2.0 [facility] AntonioAlkaline Ezkrsvitkja4874-80-73 07:47:00* Test Item Value Reference Range Interpretation Comments Alkaline Phosphatase (test code = 6768-6) 67 40-150 [facility] BCV1994-[facility] 16:21:00 [facility] [address] [address] Patient Name: MIGUEL FONTENOT MR #: [id number] : 1935 Age/Sex: 83/F Req #: [id number] [facility] Physician: RODNEY SHIPMAN MD Ordered by: ABRAM WADDELL, KAMI WADDELL Report #: [id number] Location: [facility] Room/Bed: [facility] Procedure: 1226-0 005 IR/SPECIAL PROCEDURE IN DISPLAY DECORATOR Exam Date: Time: REPORT STATUS: Signed ADDENDUM #1 Addendum: The right internal jugular vein is patent. Ultrasound was utilized for vascular access. A permanent image wa s saved to the medical record. Procedure performed using maximal sterile ba rrier technique. Signed by: Dr. Clifton Friedman DO on 09/04/2018 10:23 AM ORIGINAL REPORT Procedure: Tunneled hemodialysis catheter p lacement dated 08/23/2018. Psychiatric Security Nurse: None. Medications: Versed 2 mg i ntravenous, Fentanyl 50 mcg intravenous. Patient did have an episode of dimin ished O2 saturation. She also was difficult to arouse. A dose of 0.4 mg of Stevo can and was administered with subsequent rise of the O2 saturation. The patien t's vital signs, including pulse oximetry, were continuously monitored by the interventional radiology nurse. Fluoroscopy time: 2.3 minutes. Dose area product: 106.7 cGycm2 Contrast used: None Estimated blood loss: 5-10 cc Complications: No immediate. Procedure in detail: Informed consent for the procedure was obtained from the patient after discussion of risks and be nefits. The right neck and upper chest was prepped and draped in the standard sterile fashion after the patient was placed in the supine position on the la uoroscopic table. 1% lidocaine was administered into the skin and subcutane ous tissues of the right lower neck for local anesthesia. Then, under continu ous sonographic guidance, a 21-gauge micropuncture needle was advanced into th e right internal jugular vein. A 0.018 inch wire was advanced centrally under fluoroscopic guidance. The needle was then removed and access was secured wi th a micropuncture sheath. A 0.035 inch Amplatz superstiff was advanced throu gh the micropuncture sheath into the inferior vena cava under fluoroscopic regina dance. Attention was then turned to the right upper chest. A suitable cath eter exit site was determined, approximately 3 fingerbreadths inferior to the clavicle. The skin was marked. 1% lidocaine was epinephrine was used to anes thetize a subcutaneous tract extending from the planned catheter exit site to the venotomy at the right lower neck. A stab incision was made on the right u pper chest. Subsequently, the catheter was tunneled from the exit site of the right upper chest to the venotomy at the right lower neck. The retention cuff of the catheter was advanced well into the subcutaneous tunnel. The terry ropuncture sheath was then removed over the wire and the tract was serially di lated. Finally, a 16.5-[place] peel-away sheath was advanced over the wire und er fluoroscopic guidance. A 16 [place] Bard 23 cm tip to cuff split tip cathet er was then advanced through the peel-away sheath. This was noted to be too lo ng. At this point 2 Amplatz superstiff wires were then placed through the two lumens and a new 16 [place] Bard split tip 19 cm long tip to cuff catheter was then placed. The catheter tips were positioned in the upper right atrium. Each catheter lumen showed good bidirectional flow. Each lumen was then packed with 2000 units of heparin. The catheter was secured at the exit site on the right upper chest with a pursestring 4-0 Vicryl suture. The venotomy at the right lower neck was closed with interrupted 40 Vicryl sutures. The retention phalange was sutured to the skin with 3-0 Ethilon. A sterile dressing was applied. The patient tolerated the procedure well without immediate complica tion. Impression: Successful placement of a tunneled dual-lumen hemodi alysis catheter (16-[place]izen [place] Bard split tip, 19-cm tip-cuff length) by a right i nternal jugular approach. The catheter is OK for immediate use. Signed b y: Dr. Clifton Friedman DO on 08/24/2018 4:30 PM Dictated By: CLIFTON FRIEDMAN DO 1023 Transcribed By: YAQUELIN on 08/31/18 1348 COPY TO: KAMI VALVERDE CHEST SINGLE (PORTABLE)2018-08-23 15:15:[address] [address] Patient Name: MIGUEL FONTENOT MR #: [id number] : 1935 Age/Sex: 83/F Req #: [id number] Adm Physician: RODNEY SHIPMAN MD Ordered by: RODNEY SHIPMAN MD Report #: [id number] Location: [facility] Room/Bed: [address] [address] Procedure: [id number] DX/CHEST SINGLE (PORTABLE) Exam Date: 08/23/18 Exam Time: 1435 REPORT STATUS: Sign ed PROCEDURE: CHEST SINGLE (PORTABLE) COMPARISON: [facility], DX, CHEST SINGLE (PORTABLE), 05/20/2018, 6:04. INDICATIONS: CHEST PAIN FINDINGS: LUNGS: Mild pulmonary vascular congestion. PLEURA: No e ffusions or pneumothorax. HEART MEDIASTINUM: The heart is enlarged. T ortuosity of the thoracic aorta with calcification present. BONES S OFT TISSUES: No acute findings. CONCLUSION: Cardiomegaly with mi ld pulmonary vascular congestion. Clifton Friedman D.O. Dictated by : Clifton Friedman D.O. on 08/23/2018 at 15:15 Electronically approved by: Clifton Friedman D.O. on 08/23/2018 at 15:15 Dictated By: CLIFTON FRIEDMAN DO 14 Trans cribed By: PENELOPE on 08/23/18 1515 COPY TO: RODNEY SHIPMAN MD Prothrombin Gyfo6213-92-23 05:30:00* Test Item Value Reference Range Interpretation Comments Prothrombin Time (test code = 5902-2) 13.7 11.9-14.5 [facility] AntonioProthromb Time International Ratio 2018-08-23 05:30:00* Test Item Value Reference Range Interpretation Comments Prothromb Time International Ratio (test code = 6301-6) 0.96 Oral Anticoagulant Therapy INR Values:1. Low Intensity Therapy 1.5 - 2.02 . Moderate Intensity Therapy 2.0 - 3.03. High Intensity Therapy(1) 2.5 - 3. 54. High Intensity Therapy(2) 3.0 - 4.05. Panic Value INR > 5.0 [facility] [facility] AntonioProthrombin Wlfo6111-82-78 05:30:00* Test Item Value Reference Range Interpretation Comments Prothrombin Time (test code = 5902-2) 13.7 11.9-14.5 [facility] AntonioProthromb Time International Ratio 2018-08-23 05:30:00* Test Item Value Reference Range Interpretation Comments Prothromb Time International Ratio (test code = 6301-6) 0.96 Oral Anticoagulant Therapy INR Values:1. Low Intensity Therapy 1.5 - 2.02 . Moderate Intensity Therapy 2.0 - 3.03. High Intensity Therapy(1) 2.5 - 3. 54. High Intensity Therapy(2) 3.0 - 4.05. Panic Value INR > 5.0 [facility]1411-24-03 09:50:00 [facility] [address] [address] Patient Name: MIGUEL FONTENOT MR #: [id number] : 07/1935 Age/Sex: 83/F Req #: [id number] Adm Physician: RODNEY SHIPMAN MD Ordered by: ABRAM WADDELL, KAMI WADDELL Report #: [id number] Location: [facility] Room/Bed: [address] [address] Procedure: 1225-[address]/CT ABDOMEN/PELVIS WO Exam Date: Exam Time: REPORT STATUS: Signed ADDENDUM #1 Impression: 7. Lung nodules as described above. Re commend follow-up with dedicated low-dose chest CT in 6 months. Signed by : Dr. Griffin Trivedi MD on 08/22/2018 10:37 AM ORIGINAL REPORT EXAM: CT Abdomen and Pelvis WITHOUT contrast INDICATION: pe ritoneal catheter leak COMPARISON: None. TECHNIQUE: Abdomen and pelvis were scanned utilizing a multidetector helical scanner from the lung base to the p ubic symphysis without administration of IV contrast. Absence of intravenous c ontrast decreases sensitivity for detection of focal lesions and vascular path ology. Coronal and sagittal reformations were obtained. Routine protocol was p erformed. IV CONTRAST: None ORAL CONTRAST: Water COMPLICATIONS: None RADIATION DOSE: Total DLP: 184.71 mGy*cm Estimated effective dose: (DLP x 0.015 x size factor) mSv CTDIvol has be en reviewed. It is below the limits set by the Radiation Protocol Committee (R PC). FINDINGS: LINES and TUBES: Peritoneal catheter in place, entering the abdomen slightly to the right of the midline in lower abdomen with tip lo oped in the right pelvis. LOWER THORAX: Right middle lobe linear atelectas is/scarring. Groundglass 6 mm right lower lobe nodule (series 2, image 5). Ano ther 4 mm right lower lobe nodule (2/6). 3 mm subpleural left lower lobe nodul e versus subsegmental atelectasis (series 2, image 2). HEPATOBILIARY: Tiny hepatic dome hypodensity is too small to characterize. Otherwise, unenh anced liver is unremarkable. Common bile duct distention up to 1.3 cm, which c ould be due to reservoir effect. GALLBLADDER: Not visualized. SPLEEN: No splenomegaly. PANCREAS: No focal masses or ductal dilatation. A DRENALS: No adrenal nodules KIDNEYS/URETERS: Bilateral renal cortical a trophy, left greater than right. There are bilateral renal cysts, the largest on the left superior pole measuring 4.6 cm. Full evaluation of the cysts canno t be done without intravenous contrast. No hydronephrosis. No stones. Renal ca lcifications are probably vascular. Fat stranding along the left renal pelvis and left ureter. GI TRACT: No abnormal distention, wall thickening, or evid ence of bowel obstruction. Colonic diverticulosis without evidence of diverti culitis. Appendix is normal. PELVIC ORGANS/BLADDER: Bladder is under dis tended, limiting evaluation. Hysterectomy. LYMPH NODES: No lymphadenopath y. VESSELS: There is severe atherosclerotic disease in the aorta and major arterial branches. PERITONEUM / RETROPERITONEUM: No free fluid. Trace pne umoperitoneum anterior to the liver and adjacent to the umbilicus. BONES: Old fracture deformity of the right inferior pubic ramus. SOFT TISSUES: Sm all fat-containing umbilical hernia. Tiny air bubbles are seen underneath the umbilical hernia (series 2, image 49). IMPRESSION: 1. Limit ed study without intravenous contrast. 2. No definite evidence of acute infla mmatory process in the abdomen/pelvis. 3. Peritoneal catheter in place with t ip looped in right pelvis. No evidence of break in the visualized portion. 4 . Colonic diverticulosis without evidence of diverticulitis. 5. Small amount of pneumoperitoneum without identifiable radiology on this exam. This could be due to recent procedure/instrumentation. Please correlate clinically. 6. Bilateral renal cysts. There is also fat stranding surrounding the left renal pelvis and left ureter. Urinary tract infection cannot be excluded Signed b y: Dr. Griffin Trivedi MD on 08/22/2018 10:09 AM Dictated By: GRIFFIN Byers MD 1037 Transcribed B y: YAQUELIN on 08/22/18 1009 COPY TO: KAMI VALVERDE Activated Partial Thromboplast Jkhw4636-76-04 18:07:00* Test Item Value Reference Range Interpretation Comments Activated Partial Thromboplast Time (test code = 54368-9) 29.2 23.8-35.5 [facility] AntonioActivated Partial Thromboplast Time 2018-08-21 18:07:00* Test Item Value Reference Range Interpretation Comments Activated Partial Thromboplast Time (test code = 97818-7) 29.2 23.8-35.5 [facility] B Surface Antibody, Quant 2018-05-21 14:59:00* Test Item Value Reference Range Interpretation Comments Hepatitis B Surface Antibody, Quant (test code = 5194-6) 828.4 Immunity>9.9 Status of Immunity Anti-HBs Level Inconsistent with Immunity 0.0 - 9.9Consistent with Immunity >9.9[facility] Core Total Clxekeag7448-73-57 14:59:00* Test Item Value Reference Range Interpretation Comments Hepatitis B Core Total Antibody (test code = 02040-5) Negative Negative Performed at: [facility] [id number] Director: Winston Mcmillan MD, Phone: [phone]'s Hospital of [facility] AntonioHelakeside hospital B Surface Ibyzenn0600-32-32 14:59:00* Test Item Value Reference Range Interpretation Comments Hepatitis B Surface Antigen (test code = 5196-1) Negative Negat bhavna [facility] AntonioWhite Blood Mepah9741-79-84 05:13:00* Test Item Value Reference Range Interpretation Comments White Blood Count (test code = 6690-2) 12.40 4.8-10.8 H VERIFIED PREVIOUS RESULTSChildren's Hospital of San AntonioRed Blood Count 2018-05-21 05:13:00* Test Item Value Reference Range Interpretation Comments Red Blood Count (test code = 789-8) 2.64 3.6-5.1 L [facility] AntonioHemoglobin2018-09-23 05:13:00* Test Item Value Reference Range Interpretation Comments Hemoglobin (test code = 25990-1) 8.0 12.0-16.0 L [facility] AntonioHematocrit2018-09-23 05:13:00* Test Item Value Reference Range Interpretation Comments Hematocrit (test code = 4544-3) 25.1 34.2-44.1 L [facility] AntonioMean Corpuscular Lnjgkz8178-43-35 05:13:00* Test Item Value Reference Range Interpretation Comments Mean Corpuscular Volume (test code = 787-2) 95.1 81-99 [facility] AntonioMean Corpuscular Xkhllqyoow8738-36-32 05:13:00* Test Item Value Reference Range Interpretation Comments Mean Corpuscular Hemoglobin (test code = 785-6) 30.3 28-32 [facility] AntonioMean Corpuscular Hemoglobin Concent 2018-05-21 05:13:00* Test Item Value Reference Range Interpretation Comments Mean Corpuscular Hemoglobin Concent (test code = 786-4) 31.9 31-35 [facility] AntonioRed Cell Distribution Hzyay5757-02-52 05:13:00* Test Item Value Reference Range Interpretation Comments Red Cell Distribution Width (test code = 16932-7) 17.4 11.7 -14.4 H [facility] AntonioPlatelet Ghgor8279-06-39 05:13:00* Test Item Value Reference Range Interpretation Comments Platelet Count (test code = 777-3) 192 140-360 VERIFIED PREVIOUS RESULTSChildren's Hospital of San AntonioNeutrophils (%) (Auto)2018-05-21 05:13:00* Test Item Value Reference Range Interpretation Comments Neutrophils (%) (Auto) (test code = 80510-0) 83.1 38.7-80.0 H [facility] AntonioLymphocytes (%) (Auto)2018-05-21 05:13:00 * Test Item Value Reference Range Interpretation Comments Lymphocytes (%) (Auto) (test code = 736-9) 10.2 18.0-39.1 L [facility] AntonioMonocytes (%) (Auto)2018-05-21 05:13:00* Test Item Value Reference Range Interpretation Comments Monocytes (%) (Auto) (test code = 5905-5) 5.7 4.4-11.3 [facility] AntonioEosinophils (%) (Auto)2018-05-21 05:13:00 * Test Item Value Reference Range Interpretation Comments Eosinophils (%) (Auto) (test code = 713-8) 0.2 0.0-6.0 [facility] AntonioBasophils (%) (Auto)2018-05-21 05:13:00* Test Item Value Reference Range Interpretation Comments Basophils (%) (Auto) (test code = 706-2) 0.2 0.0-1.0 [facility] AntonioIM GRANULOCYTES %2018-05-21 05:13:00* Test Item Value Reference Range Interpretation Comments IM GRANULOCYTES % (test code = IM GRANULOCYTES %) 0.6 0.0- 1.0 [facility] AntonioNeutrophils # (Auto)2018-05-21 05:13:00* Test Item Value Reference Range Interpretation Comments Neutrophils # (Auto) (test code = 751-8) 10.3 2.1-6.9 H [facility] AntonioLymphocytes # (Auto)2018-05-21 05:13:00* Test Item Value Reference Range Interpretation Comments Lymphocytes # (Auto) (test code = 60102-7) 1.3 1.0-3.2 [facility] AntonioMonocytes # (Auto)2018-05-21 05:13:00* Test Item Value Reference Range Interpretation Comments Monocytes # (Auto) (test code = 742-7) 0.7 0.2-0.8 [facility] AntonioEosinophils # (Auto)2018-05-21 05:13:00* Test Item Value Reference Range Interpretation Comments Eosinophils # (Auto) (test code = 711-2) 0.0 0.0-0.4 [facility] AntonioBasophils # (Auto)2018-05-21 05:13:00* Test Item Value Reference Range Interpretation Comments Basophils # (Auto) (test code = 704-7) 0.0 0.0-0.1 [facility] AntonioAbsolute Immature Granulocyte (auto 2018-05-21 05:13:00* Test Item Value Reference Range Interpretation Comments Absolute Immature Granulocyte (auto (karo t code = Absolute Immature Granulocyte (auto) 0.08 0-0.1 [facility] AntonioBlood Konscfl1549-90-74 12:15:00* Test Item Value Reference Range Interpretation Comments Blood Culture (test code = 70741695) NO GROWTH AFTER 5 DAYS, FINAL REPORT [facility] AntonioBlwestbrook [facility] center Qnxjefj8554-33-43 12:15:00* Test Item Value Reference Range Interpretation Comments Blood Culture (test code = 25043218) NO GROWTH AFTER 5 DAYS, FINAL REPORT [facility] AntonioCHEST SINGLE (PORTABLE)2018-05-20 06:33:[address] [address] Patient Name: MIGUEL FONTENOT MR #: [id number] : 1935 Age/Sex: 82/F Req #: [id number] Adm Physician: CHRISTEL HATHAWAY MD Ordered by: ZEINA ALBRIGHT NP Report #: [id number] Location: MED/SURG2 Room/Bed: [facility] Procedure: 921-0 003 DX/CHEST SINGLE (PORTABLE) Exam Date: 05/20/18 E xam Time: 0530 REPORT STATUS: Signed CHEST SINGLE (PORTABLE), 05/20/2018 7:00 AM Technique: CHEST SINGLE (PORTABLE) Comparison: 07/03/2017 Clini daria history: Dizziness Findings: See Impression Impression: 1. Sta ble cardiomediastinal silhouette. Aortic calcifications. 2. Apparent lingular opacity likely artifact of rotation. No consolidation or overt edema. 3. No effusion or pneumothorax. Signed by: Dr Deshawn Apple MD on 05/20/2018 6:35 AM Dictated By: DESHAWN APPLE MD 4 Transcribed By: YAQUELIN on 05/20/18634 COPY T O: ZEINA ALBRIGHT SNUFF MAKER Sodium Xpcnz4193-06-15 05:27:00* Test Item Value Reference Range Interpretation Comments Sodium Level (test code = 2951-2) 139 136-145 [facility] AntonioPotassium Wzkro0396-38-76 05:27:00* Test Item Value Reference Range Interpretation Comments Potassium Level (test code = 2823-3) 3.6 3.5-5.1 [facility] AntonioChloride Jbqjb1360-94-52 05:27:00* Test Item Value Reference Range Interpretation Comments Chloride Level (test code = 2075-0) 104 98-107 [facility] AntonioCarbon Dioxide Xrwzj5039-81-78 05:27:00* Test Item Value Reference Range Interpretation Comments Carbon Dioxide Level (test code = 2028-9) 22 22-29 [facility] AntonioAnion Iip0696-35-20 05:27:00* Test Item Value Reference Range Interpretation Comments Anion Gap (test code = 61745-9) 16.6 8-16 H [facility] AntonioBlood Urea Lucphniy3055-16-43 05:27:00* Test Item Value Reference Range Interpretation Comments Blood Urea Nitrogen (test code = 3094-0) 20 7-26 [facility] AntonioCreatinine2018-09-22 05:27:00* Test Item Value Reference Range Interpretation Comments Creatinine (test code = 2160-0) 5.17 0.57-1.11 H [facility] AntonioBUN/Creatinine Lkjun7496-66-50 05:27:00* Test Item Value Reference Range Interpretation Comments BUN/Creatinine Ratio (test code = 3097-3) 4 6-25 L [facility] San AntonioEstimat Glomerular Filtration Rate 2018-05-20 05:27:00* Test Item Value Reference Range Interpretation Comments Estimat Glomerular Filtration Rate (test code = 038490822) 8 >60 L Ranges were taken from the National Kidney Disease Education Program and the Replaced by [facility] literature.Reference ranges:60 or greater: Sxpkqo03-20 ( for 3 consecutive months): Chronic kidney disease 15 or less: Kidney failureChildren's Hospital of San AntonioGlucose Iigln7644-43-10 05:27:00* Test Item Value Reference Range Interpretation Comments Glucose Level (test code = XXX8563) 194 74-118 H [facility] AntonioCalcium Kigim4852-42-87 05:27:00* Test Item Value Reference Range Interpretation Comments Calcium Level (test code = 33044-5) 8.3 8.4-10.2 L [facility] AntonioCreatine Kinase QF7902-27-92 11:10:00* Test Item Value Reference Range Interpretation Comments Creatine Kinase MB (test code = 99539-5) 0.70 0-5.0 [facility] AntonioTroponin E8447-55-77 11:10:00* Test Item Value Reference Range Interpretation Comments Troponin I (test code = OUI5756) 0.006 0-0.300 [facility] AntonioCreatine Kinase VN1029-70-02 11:10:00* Test Item Value Reference Range Interpretation Comments Creatine Kinase MB (test code = 89116-9) 0.70 0-5.0 [facility] AntonioTrmorrist[facility] [place] N0720-92-32 11:10:00* Test Item Value Reference Range Interpretation Comments Troponin I (test code = DER5339) 0.006 0-0.300 [facility] AntonioCreatine Kinase XT9802-31-56 11:10:00* Test Item Value Reference Range Interpretation Comments Creatine Kinase MB (test code = 02850-4) 0.70 0-5.0 [facility] AntonioTroponin Q1941-55-28 11:10:00* Test Item Value Reference Range Interpretation Comments Troponin I (test code = LFJ8409) 0.006 0-0.300 [facility] AntonioMagnesium Tymwh3731-66-40 11:07:00* Test Item Value Reference Range Interpretation Comments Magnesium Level (test code = 94941-6) 1.7 1.3-2.1 [facility] Dsqyyqdiz9165-32-12 11:07:00* Test Item Value Reference Range Interpretation Comments Total Bilirubin (test code = 1975-2) 0.9 0.2-1.2 [facility] AntonioAspartate Amino Transf (AST/SGOT) 2018-05-19 11:07:00* Test Item Value Reference Range Interpretation Comments Aspartate Amino Transf (AST/SGOT) (test code = Aspartate Amino Transf (AST/SGOT)) 18 5-34 [facility] AntonioAlanine Aminotransferase (ALT/SGPT) 2018-05-19 11:07:00* Test Item Value Reference Range Interpretation Comments Alanine Aminotransferase (ALT/SGPT) (test code = 1742-6) 12 0-55 [facility] AntonioTotal Thycwmh7674-38-83 11:07:00* Test Item Value Reference Range Interpretation Comments Total Protein (test code = 2885-2) 6.5 6.5-8.1 [facility] AntonioAlbumin2018-09-21 11:07:00* Test Item Value Reference Range Interpretation Comments Albumin (test code = 1751-7) 2.8 3.5-5.0 L [facility] AntonioGlobulin2018-09-21 11:07:00* Test Item Value Reference Range Interpretation Comments Globulin (test code = 49289-2) 3.7 2.3-3.5 H [facility] AntonioAlbumin/Globulin Otqas3085-53-94 11:07:00 * Test Item Value Reference Range Interpretation Comments Albumin/Globulin Ratio (test code = 1759-0) 0.8 0.8-2.0 [facility] AntonioAlkaline Bqjrpfgonwf6272-57-21 11:07:00* Test Item Value Reference Range Interpretation Comments Alkaline Phosphatase (test code = 6768-6) 109 40-150 [facility] AntonioCreatine Ufofkh0421-83-67 11:07:00* Test Item Value Reference Range Interpretation Comments Creatine Kinase (test code = 2157-6) 44 29-168 [facility] AntonioMagnesium Qrkdl8784-63-08 11:07:00* Test Item Value Reference Range Interpretation Comments Magnesium Level (test code = 76375-6) 1.7 1.3-2.1 [facility] AntonioCreatine Zbtjqc3424-57-89 11:07:00* Test Item Value Reference Range Interpretation Comments Creatine Kinase (test code = 2157-6) 44 29-168 [facility] AntonioMagnesium Qrdhk2270-06-86 11:07:00* Test Item Value Reference Range Interpretation Comments Magnesium Level (test code = 14743-8) 1.7 1.3-2.1 [facility] AntonioCreatine Igwncr4857-74-73 11:07:00* Test Item Value Reference Range Interpretation Comments Creatine Kinase (test code = 2157-6) 44 29-168 [facility] AntonioIron Zmypa5110-83-37 11:06:00* Test Item Value Reference Range Interpretation Comments Iron Level (test code = 2498-4) 84 50-170 [facility] AntonioTotal Iron Binding Bgyffeot2320-99-13 11:06:00* Test Item Value Reference Range Interpretation Comments Total Iron Binding Capacity (test code = 2500-7) 280 261-4 78 [facility] AntonioPercent Iron Atwewyqokg3286-02-73 11:06:00* Test Item Value Reference Range Interpretation Comments Percent Iron Saturation (test code = 2502-3) 30 15-50 [facility] AntonioTransferrin2018-09-21 11:06:00* Test Item Value Reference Range Interpretation Comments Transferrin (test code = 3034-6) 200 180-382 [facility] Pkpxo6056-63-45 11:06:00* Test Item Value Reference Range Interpretation Comments Iron Level (test code = 2498-4) 84 50-170 [facility] AntonioTotal Iron Binding Yqderczz1269-90-90 11:06:00* Test Item Value Reference Range Interpretation Comments Total Iron Binding Capacity (test code = 2500-7) 280 261-4 78 [facility] AntonioPercent Iron Uvjlooypaf9378-60-90 11:06:00* Test Item Value Reference Range Interpretation Comments Percent Iron Saturation (test code = 2502-3) 30 15-50 [facility] AntonioTransferrin2018-09-21 11:06:00* Test Item Value Reference Range Interpretation Comments Transferrin (test code = 3034-6) 200 180-382 [facility] Myeek4709-16-54 11:06:00* Test Item Value Reference Range Interpretation Comments Iron Level (test code = 2498-4) 84 50-170 [facility] Iron Binding Dimuduhl1466-91-40 11:06:00* Test Item Value Reference Range Interpretation Comments Total Iron Binding Capacity (test code = 2500-7) 280 261-4 78 [facility] AntonioPercent Iron Wfdpqrapqq9658-01-39 11:06:00* Test Item Value Reference Range Interpretation Comments Percent Iron Saturation (test code = 2502-3) 30 15-50 [facility] AntonioTransferrin2018-09-21 11:06:00* Test Item Value Reference Range Interpretation Comments Transferrin (test code = 3034-6) 200 180-382 [facility] AntonioProthrombin Xsgv7356-72-06 11:05:00* Test Item Value Reference Range Interpretation Comments Prothrombin Time (test code = 5902-2) 14.2 11.9-14.5 [facility] AntonioProthromb Time International Ratio 2018-05-19 11:05:00* Test Item Value Reference Range Interpretation Comments Prothromb Time International Ratio (test code = 6301-6) 1.01 Oral Anticoagulant Therapy INR Values:1. Low Intensity Therapy 1.5 - 2.02 . Moderate Intensity Therapy 2.0 - 3.03. High Intensity Therapy(1) 2.5 - 3. 54. High Intensity Therapy(2) 3.0 - 4.05. Panic Value INR > 5.0 [facility] AntonioActivated Partial Thromboplast Time 2018-05-19 11:05:00* Test Item Value Reference Range Interpretation Comments Activated Partial Thromboplast Time (test code = 25783-4) 28.6 23.8-35.5 [facility] AntonioUrine KPD9674-73-34 10:59:00* Test Item Value Reference Range Interpretation Comments Urine WBC (test code = 5821-4) NONE 0-5 [facility] AntonioUrine TKI3593-31-45 10:59:00* Test Item Value Reference Range Interpretation Comments Urine RBC (test code = 93220-0) NONE 0-5 [facility] AntonioUrine Izwkzvlj9105-80-86 10:59:00* Test Item Value Reference Range Interpretation Comments Urine Bacteria (test code = 41654-3) NONE NONE [facility] AntonioUrine Epithelial Kwpwr2996-66-03 10:59:00 * Test Item Value Reference Range Interpretation Comments Urine Epithelial Cells (test code = 78875-5) MODERATE NONE [facility] AntonioUrine PMR4248-78-12 10:59:00* Test Item Value Reference Range Interpretation Comments Urine WBC (test code = 5821-4) NONE 0-5 [facility] AntonioUrine BIG8392-26-78 10:59:00* Test Item Value Reference Range Interpretation Comments Urine RBC (test code = 35215-7) NONE 0-5 [facility] AntonioUrine Hzobykaw0432-16-50 10:59:00* Test Item Value Reference Range Interpretation Comments Urine Bacteria (test code = 17437-0) NONE NONE [facility] AntonioUrine Epithelial Xncnq7185-57-44 10:59:00 * Test Item Value Reference Range Interpretation Comments Urine Epithelial Cells (test code = 56278-2) MODERATE NONE [facility] AntonioUrine PPP0927-13-15 10:59:00* Test Item Value Reference Range Interpretation Comments Urine WBC (test code = 5821-4) NONE 0-5 [facility] AntonioUrine XFI8339-80-48 10:59:00* Test Item Value Reference Range Interpretation Comments Urine RBC (test code = 13159-3) NONE 0-5 [facility] AntonioUrine Asjxfvti6159-01-82 10:59:00* Test Item Value Reference Range Interpretation Comments Urine Bacteria (test code = 83523-0) NONE NONE [facility] AntonioUrine Epithelial Kosoq7749-16-54 10:59:00 * Test Item Value Reference Range Interpretation Comments Urine Epithelial Cells (test code = 79432-0) MODERATE NONE [facility] AntonioUrine Dthgl5085-27-67 10:51:00* Test Item Value Reference Range Interpretation Comments Urine Color (test code = 5778-6) YELLOW YELLOW [facility] AntonioUrine Wtwuhvl2341-86-98 10:51:00* Test Item Value Reference Range Interpretation Comments Urine Clarity (test code = 74510-4) SL CLOUDY CLEAR [facility] AntonioUrine Specific Xvrrozx7682-56-75 10:51:00 * Test Item Value Reference Range Interpretation Comments Urine Specific [place] (test code = 5811-5) 1.010 1.010-1.02 5 [facility] AntonioUrine lI1870-62-66 10:51:00* Test Item Value Reference Range Interpretation Comments Urine pH (test code = 17817-1) 7 5-7 [facility] AntonioUrine Leukocyte Lwxqlwry5556-64-92 10:51:00* Test Item Value Reference Range Interpretation Comments Urine Leukocyte Esterase (test code = 5799-2) NEGATIVE NEGATIVE [facility] AntonioUrine Baodyth4113-18-83 10:51:00* Test Item Value Reference Range Interpretation Comments Urine Nitrite (test code = 20530-3) NEGATIVE NEGATIVE [facility] AntonioUrine Vfxtecn3240-35-15 10:51:00* Test Item Value Reference Range Interpretation Comments Urine Protein (test code = 5804-0) 2+ NEGATIVE H [facility] AntonioUrine Glucose (UA)2018-05-19 10:51:00* Test Item Value Reference Range Interpretation Comments Urine Glucose (UA) (test code = 2349-9) NEGATIVE NEGATIVE [facility] AntonioUrine Oaflgix9357-60-80 10:51:00* Test Item Value Reference Range Interpretation Comments Urine Ketones (test code = 78853-5) NEGATIVE NEGATIVE [facility] AntonioUrine Ucxbsgcpszwb2535-67-78 10:51:00* Test Item Value Reference Range Interpretation Comments Urine Urobilinogen (test code = 24328-8) 0.2 0.2-1 [facility] Antonio[facility] Npsbxkuxr9010-62-43 10:51:00* Test Item Value Reference Range Interpretation Comments Urine Bilirubin (test code = 1978-6) NEGATIVE NEGATIVE [facility] Bhpyn0743-93-43 10:51:00* Test Item Value Reference Range Interpretation Comments Urine Blood (test code = 98328-8) NEGATIVE NEGATIVE [facility] Syfau7726-55-57 10:51:00* Test Item Value Reference Range Interpretation Comments Urine Color (test code = 5778-6) YELLOW YELLOW [facility] Aqutrio4750-80-36 10:51:00* Test Item Value Reference Range Interpretation Comments Urine Clarity (test code = 70013-1) SL CLOUDY CLEAR [facility] Specific Eefcnyx4178-79-02 10:51:00 * Test Item Value Reference Range Interpretation Comments Urine Specific [place] (test code = 5811-5) 1.010 1.010-1.02 5 [facility] Antonio[facility] wK1630-51-33 10:51:00* Test Item Value Reference Range Interpretation Comments Urine pH (test code = 28931-9) 7 5-7 [facility] Leukocyte Tcwflcda0305-99-58 10:51:00* Test Item Value Reference Range Interpretation Comments Urine Leukocyte Esterase (test code = 5799-2) NEGATIVE NEGATIVE [facility] Yuendgk6779-23-68 10:51:00* Test Item Value Reference Range Interpretation Comments Urine Nitrite (test code = 66428-2) NEGATIVE NEGATIVE [facility] Fneyfcz6849-06-68 10:51:00* Test Item Value Reference Range Interpretation Comments Urine Protein (test code = 5804-0) 2+ NEGATIVE H [facility] Glucose (UA)2018-05-19 10:51:00* Test Item Value Reference Range Interpretation Comments Urine Glucose (UA) (test code = 2349-9) NEGATIVE NEGATIVE [facility] Tdhoxgb8884-91-47 10:51:00* Test Item Value Reference Range Interpretation Comments Urine Ketones (test code = 57637-6) NEGATIVE NEGATIVE [facility] Rybvicoblelo9247-74-39 10:51:00* Test Item Value Reference Range Interpretation Comments Urine Urobilinogen (test code = 14436-1) 0.2 0.2-1 [facility] Hqczycpza1424-90-51 10:51:00* Test Item Value Reference Range Interpretation Comments Urine Bilirubin (test code = 1978-6) NEGATIVE NEGATIVE [facility] Mcjee6471-85-72 10:51:00* Test Item Value Reference Range Interpretation Comments Urine Blood (test code = 44071-3) NEGATIVE NEGATIVE [facility] Fqrrs0656-99-95 10:51:00* Test Item Value Reference Range Interpretation Comments Urine Color (test code = 5778-6) YELLOW YELLOW [facility] Xrobiyd9873-30-78 10:51:00* Test Item Value Reference Range Interpretation Comments Urine Clarity (test code = 26037-9) SL CLOUDY CLEAR [facility] Specific Sfklyzz4507-35-34 10:51:00 * Test Item Value Reference Range Interpretation Comments Urine Specific [place] (test code = 5811-5) 1.010 1.010-1.02 5 [facility] Antonio[facility] qJ5130-66-19 10:51:00* Test Item Value Reference Range Interpretation Comments Urine pH (test code = 07788-7) 7 5-7 [facility] Leukocyte Riqyzupt3644-02-50 10:51:00* Test Item Value Reference Range Interpretation Comments Urine Leukocyte Esterase (test code = 5799-2) NEGATIVE NEGATIVE [facility] Ekoboez9407-09-00 10:51:00* Test Item Value Reference Range Interpretation Comments Urine Nitrite (test code = 25627-9) NEGATIVE NEGATIVE [facility] Apmcwup8437-16-85 10:51:00* Test Item Value Reference Range Interpretation Comments Urine Protein (test code = 5804-0) 2+ NEGATIVE H [facility] Glucose (UA)2018-05-19 10:51:00* Test Item Value Reference Range Interpretation Comments Urine Glucose (UA) (test code = 2349-9) NEGATIVE NEGATIVE [facility] Xgyxahr9639-06-33 10:51:00* Test Item Value Reference Range Interpretation Comments Urine Ketones (test code = 41382-1) NEGATIVE NEGATIVE [facility] Corxrltvsdze7741-11-03 10:51:00* Test Item Value Reference Range Interpretation Comments Urine Urobilinogen (test code = 92532-3) 0.2 0.2-1 [facility] Clncwfpir3660-34-59 10:51:00* Test Item Value Reference Range Interpretation Comments Urine Bilirubin (test code = 1978-6) NEGATIVE NEGATIVE [facility] Urton6421-05-85 10:51:00* Test Item Value Reference Range Interpretation Comments Urine Blood (test code = 66750-6) NEGATIVE NEGATIVE [facility] AntonioBlood Xxaduxo6532-36-36 10:07:00* Test Item Value Reference Range Interpretation Comments Blood Culture (test code = 08581081) NO GROWTH AFTER 72 HOURS [facility] AntonioPotassium Vklvi1915-45-83 15:49:00* Test Item Value Reference Range Interpretation Comments Potassium Level (test code = 2823-3) 4.2 3.5-5.1 [facility] Avfcs7100-14-83 05:45:00* Test Item Value Reference Range Interpretation Comments Sodium Level (test code = 2951-2) 144 136-145 [facility] AntonioChloride Vzfim8742-68-53 05:45:00* Test Item Value Reference Range Interpretation Comments Chloride Level (test code = 2075-0) 107 98-107 [facility] AntonioCarbon Dioxide Ptbgf8620-94-06 05:45:00* Test Item Value Reference Range Interpretation Comments Carbon Dioxide Level (test code = 2028-9) 27 22-29 [facility] AntonioAnion Qzz0922-87-44 05:45:00* Test Item Value Reference Range Interpretation Comments Anion Gap (test code = 29728-5) 12.9 8-16 [facility] AntonioBlood Urea Mnpdffwr3114-86-70 05:45:00* Test Item Value Reference Range Interpretation Comments Blood Urea Nitrogen (test code = 3094-0) 15 7-26 [facility] AntonioCreatinine2018-09-19 05:45:00* Test Item Value Reference Range Interpretation Comments Creatinine (test code = 2160-0) 4.75 0.57-1.11 H [facility] AntonioBUN/Creatinine Wvpnl9506-31-40 05:45:00* Test Item Value Reference Range Interpretation Comments BUN/Creatinine Ratio (test code = 3097-3) 3 6-25 L [facility] AntonioEstimat Glomerular Filtration Rate 2018-05-17 05:45:00* Test Item Value Reference Range Interpretation Comments Estimat Glomerular Filtration Rate (test code = 513084156) 9 >60 L Ranges were taken from the National Kidney Disease Education Program and the [facility] literature.Reference ranges:60 or greater: Vnrnac52-09 ( for 3 consecutive months): Chronic kidney disease 15 or less: Kidney failureChildren's Hospital of San AntonioGlucose Yfdai3959-96-65 05:45:00* Test Item Value Reference Range Interpretation Comments Glucose Level (test code = UCB4802) 123 74-118 H [facility] AntonioCalcium Jzlyf6099-98-70 05:45:00* Test Item Value Reference Range Interpretation Comments Calcium Level (test code = 39321-1) 8.3 8.4-10.2 L [facility] AntonioWhite Blood Wgzhc8317-20-87 05:31:00* Test Item Value Reference Range Interpretation Comments White Blood Count (test code = 6690-2) 5.15 4.8-10.8 [facility] AntonioRed Blood Dzhum7598-72-94 05:31:00* Test Item Value Reference Range Interpretation Comments Red Blood Count (test code = 789-8) 2.43 3.6-5.1 L [facility] AntonioHemoglobin2018-09-19 05:31:00* Test Item Value Reference Range Interpretation Comments Hemoglobin (test code = 33064-3) 7.5 12.0-16.0 L [facility] AntonioHematocrit2018-09-19 05:31:00* Test Item Value Reference Range Interpretation Comments Hematocrit (test code = 4544-3) 22.7 34.2-44.1 L Results called to BLANCHE GUTIÉRREZ RN at 0529 on 05/17/18 by Finn Alexis. RB [place]. [facility] AntonioMean Corpuscular Xccoud8695-03-53 05:31:00* Test Item Value Reference Range Interpretation Comments Mean Corpuscular Volume (test code = 787-2) 93.4 81-99 [facility] AntonioMean Corpuscular Zksmuqmgxw5418-05-42 05:31:00* Test Item Value Reference Range Interpretation Comments Mean Corpuscular Hemoglobin (test code = 785-6) 30.9 28-32 [facility] AntonioMean Corpuscular Hemoglobin Concent 2018-05-17 05:31:00* Test Item Value Reference Range Interpretation Comments Mean Corpuscular Hemoglobin Concent (test code = 786-4) 33.0 31-35 [facility] AntonioRed Cell Distribution Bzyls8790-45-90 05:31:00* Test Item Value Reference Range Interpretation Comments Red Cell Distribution Width (test code = 58588-9) 15.3 11.7 -14.4 H [facility] AntonioPlatelet Mbjih1901-69-92 05:31:00* Test Item Value Reference Range Interpretation Comments Platelet Count (test code = 777-3) 185 140-360 [facility] AntonioNeutrophils (%) (Auto)2018-05-17 05:31:00 * Test Item Value Reference Range Interpretation Comments Neutrophils (%) (Auto) (test code = 38506-0) 63.6 38.7-80.0 [facility] AntonioLymphocytes (%) (Auto)2018-05-17 05:31:00 * Test Item Value Reference Range Interpretation Comments Lymphocytes (%) (Auto) (test code = 736-9) 18.3 18.0-39.1 [facility] AntonioMonocytes (%) (Auto)2018-05-17 05:31:00* Test Item Value Reference Range Interpretation Comments Monocytes (%) (Auto) (test code = 5905-5) 13.6 4.4-11.3 H [facility] AntonioEosinophils (%) (Auto)2018-05-17 05:31:00 * Test Item Value Reference Range Interpretation Comments Eosinophils (%) (Auto) (test code = 713-8) 3.5 0.0-6.0 [facility] AntonioBasophils (%) (Auto)2018-05-17 05:31:00* Test Item Value Reference Range Interpretation Comments Basophils (%) (Auto) (test code = 706-2) 0.6 0.0-1.0 [facility] AntonioIM GRANULOCYTES %2018-05-17 05:31:00* Test Item Value Reference Range Interpretation Comments IM GRANULOCYTES % (test code = IM GRANULOCYTES %) 0.4 0.0- 1.0 [facility] AntonioNeutrophils # (Auto)2018-05-17 05:31:00* Test Item Value Reference Range Interpretation Comments Neutrophils # (Auto) (test code = 751-8) 3.3 2.1-6.9 [facility] AntonioLymphocytes # (Auto)2018-05-17 05:31:00* Test Item Value Reference Range Interpretation Comments Lymphocytes # (Auto) (test code = 77729-7) 0.9 1.0-3.2 L [facility] AntonioMonocytes # (Auto)2018-05-17 05:31:00* Test Item Value Reference Range Interpretation Comments Monocytes # (Auto) (test code = 742-7) 0.7 0.2-0.8 [facility] AntonioEosinophils # (Auto)2018-05-17 05:31:00* Test Item Value Reference Range Interpretation Comments Eosinophils # (Auto) (test code = 711-2) 0.2 0.0-0.4 [facility] AntonioBasophils # (Auto)2018-05-17 05:31:00* Test Item Value Reference Range Interpretation Comments Basophils # (Auto) (test code = 704-7) 0.0 0.0-0.1 [facility] AntonioAbsolute Immature Granulocyte (auto 2018-05-17 05:31:00* Test Item Value Reference Range Interpretation Comments Absolute Immature Granulocyte (auto (karo t code = Absolute Immature Granulocyte (auto) 0.02 0-0.1 [facility] AntonioVitamin B12 Lthrd4990-06-72 10:46:00* Test Item Value Reference Range Interpretation Comments Vitamin B12 Level (test code = 10358-3) 539 213-816 [facility] AntonioFolate2018-09-18 10:46:00* Test Item Value Reference Range Interpretation Comments Folate (test code = 2284-8) 7.3 7.0-15.4 [facility] AntonioVitamin B12 Zpwio9716-94-99 10:46:00* Test Item Value Reference Range Interpretation Comments Vitamin B12 Level (test code = 83465-3) 539 213-816 [facility] AntonioFolate2018-09-18 10:46:00* Test Item Value Reference Range Interpretation Comments Folate (test code = 2284-8) 7.3 7.0-15.4 [facility] AntonioVitamin B12 Twffg9762-33-05 10:46:00* Test Item Value Reference Range Interpretation Comments Vitamin B12 Level (test code = 09688-5) 539 213-816 [facility] AntonioFolate2018-09-18 10:46:00* Test Item Value Reference Range Interpretation Comments Folate (test code = 2284-8) 7.3 7.0-15.4 [facility] AntonioVitamin B12 Ogjwu3156-52-64 10:46:00* Test Item Value Reference Range Interpretation Comments Vitamin B12 Level (test code = 14946-2) 539 213-816 [facility] AntonioFolate2018-09-18 10:46:00* Test Item Value Reference Range Interpretation Comments Folate (test code = 2284-8) 7.3 7.0-15.4 [facility] AntonioIron Sdmoh7080-12-31 10:12:00* Test Item Value Reference Range Interpretation Comments Iron Level (test code = 2498-4) 37 50-170 L [facility] AntonioTotal Iron Binding Enbkztzw6210-41-04 10:12:00* Test Item Value Reference Range Interpretation Comments Total Iron Binding Capacity (test code = 2500-7) 217 261-4 78 L [facility] AntonioPercent Iron Wlhijgrrgh9296-90-48 10:12:00* Test Item Value Reference Range Interpretation Comments Percent Iron Saturation (test code = 2502-3) 17 15-50 [facility] AntonioTransferrin2018-09-18 10:12:00* Test Item Value Reference Range Interpretation Comments Transferrin (test code = 3034-6) 155 180-382 L [facility] AntonioPercent Reticulocyte Bibgi6186-46-39 09:58:00* Test Item Value Reference Range Interpretation Comments Percent Reticulocyte Count (test code = 80766-8) 4.5 0.8-2 .2 H [facility] AntonioPercent Reticulocyte Xzrka3571-02-40 09:58:00* Test Item Value Reference Range Interpretation Comments Percent Reticulocyte Count (test code = 12145-6) 4.5 0.8-2 .2 H [facility] AntonioPercent Reticulocyte Ttnto3119-99-82 09:58:00* Test Item Value Reference Range Interpretation Comments Percent Reticulocyte Count (test code = 40442-3) 4.5 0.8-2 .2 H [facility] AntonioPercent Reticulocyte Wpiah6186-49-75 09:58:00* Test Item Value Reference Range Interpretation Comments Percent Reticulocyte Count (test code = 20418-8) 4.5 0.8-2 .2 H [facility] AntonioUrine TKR5641-71-79 12:46:00* Test Item Value Reference Range Interpretation Comments Urine WBC (test code = 5821-4) 0-5 0-5 [facility] AntonioUrine NYY7220-97-97 12:46:00* Test Item Value Reference Range Interpretation Comments Urine RBC (test code = 21540-0) 0-5 0-5 [facility] AntonioUrine Hjrbrslg5830-19-17 12:46:00* Test Item Value Reference Range Interpretation Comments Urine Bacteria (test code = 37048-8) NONE NONE [facility] Epithelial Fridp5038-64-90 12:46:00 * Test Item Value Reference Range Interpretation Comments Urine Epithelial Cells (test code = 34595-4) MANY NONE [facility] Transitional Epithelial Cells 2018-05-15 12:46:00* Test Item Value Reference Range Interpretation Comments Urine Transitional Epithelial Cells (test code = 8249-5) MANY NONE H [facility] AntonioU[facility] Transitional Epithelial Cells 2018-05-15 12:46:00* Test Item Value Reference Range Interpretation Comments Urine Transitional Epithelial Cells (test code = 8249-5) MANY NONE [facility] Epithelial [facility] 2018-05-15 12:46:00* Test Item Value Reference Range Interpretation Comments Urine Transitional Epithelial Cells (test code = 8249-5) MANY NONE [facility] Transitional Epithelial Cells 2018-05-15 12:46:00* Test Item Value Reference Range Interpretation Comments Urine Transitional Epithelial Cells (test code = 8249-5) MANY NONE H [facility] AntonioUrine Qhdlm5637-37-42 12:28:00* Test Item Value Reference Range Interpretation Comments Urine Color (test code = 5778-6) YELLOW YELLOW [facility] AntonioUrine Hrthksu8620-13-70 12:28:00* Test Item Value Reference Range Interpretation Comments Urine Clarity (test code = 06703-2) HAZY CLEAR [facility] AntonioU[facility] Specific Aligjrg1694-68-63 12:28:00 * Test Item Value Reference Range Interpretation Comments Urine Specific [place] (test code = 5811-5) 1.010 1.010-1.02 5 [facility] AntonioUrine pM9864-37-06 12:28:00* Test Item Value Reference Range Interpretation Comments Urine pH (test code = 82849-7) 8 5-7 H [facility] AntonioU[facility] Leukocyte Gzhdjcug5059-63-07 12:28:00* Test Item Value Reference Range Interpretation Comments Urine Leukocyte Esterase (test code = 5799-2) NEGATIVE NEGATIVE [facility] AntonioU[facility] Ilquvcy2986-50-11 12:28:00* Test Item Value Reference Range Interpretation Comments Urine Nitrite (test code = 77743-3) NEGATIVE NEGATIVE [facility] AntonioU[facility] Elogsrn5130-78-20 12:28:00* Test Item Value Reference Range Interpretation Comments Urine Protein (test code = 5804-0) 2+ NEGATIVE H [facility] Glucose (UA)2018-05-15 12:28:00* Test Item Value Reference Range Interpretation Comments Urine Glucose (UA) (test code = 2349-9) NEGATIVE NEGATIVE [facility] AntonioU[facility] Cxtarzs1909-15-39 12:28:00* Test Item Value Reference Range Interpretation Comments Urine Ketones (test code = 63013-7) NEGATIVE NEGATIVE [facility] AntonioU[facility] Safigohnrsxb0523-13-61 12:28:00* Test Item Value Reference Range Interpretation Comments Urine Urobilinogen (test code = 80451-1) 0.2 0.2-1 [facility] AntonioU[facility] Fmeqyxgoj6858-58-02 12:28:00* Test Item Value Reference Range Interpretation Comments Urine Bilirubin (test code = 1978-6) NEGATIVE NEGATIVE [facility] AntonioU[facility] Talzq2955-54-79 12:28:00* Test Item Value Reference Range Interpretation Comments Urine Blood (test code = 83075-2) 1+ NEGATIVE H [facility] AntonioB-Type Natriuretic Zebpxks5135-54-04 11:23:00* Test Item Value Reference Range Interpretation Comments B-Type Natriuretic Peptide (test code = 11343-4) 321.1 0-100 H [facility] AntonioB-Type Natriuretic Fadmmtq9582-66-60 11:23:00* Test Item Value Reference Range Interpretation Comments B-Type Natriuretic Peptide (test code = 91412-9) 321.1 0-100 H [facility] AntonioB-Type Natriuretic Powkhfv3678-22-26 11:23:00* Test Item Value Reference Range Interpretation Comments B-Type Natriuretic Peptide (test code = 75155-3) 321.1 0-100 H [facility] AntonioB-Type Natriuretic Kmwvgnt4359-98-34 11:23:00* Test Item Value Reference Range Interpretation Comments B-Type Natriuretic Peptide (test code = 69215-4) 321.1 0-100 H [facility] AntonioCT BRAIN UX3577-93-24 10:50:00 [facility] [address] [address] Patient Name: MIGUEL FONTENOT MR #: [id number] : 1935 Age/Sex: 82/F Req #: [id number] Adm Physician: Ordered by: CHANDANA DOMINGO SNUFF MAKER Report #: [id number] Location: ER Room/Bed: Procedure: [id number] CT/CT BRAIN WO Exam Date: 05/15/18 Exam Time: 0950 REPORT STATUS: S igned EXAMINATION: Head CT HISTORY: Slurred speech, stroke symptoms C OMPARISON: Head CT on 07/03/2017 TECHNIQUE: Multidetector axial images were obt ained without contrast from the foramen magnum to the vertex . The images were reconstructed using brain and bone algorithms. Thin section brain images were reformatted into coronal and sagittal planes. Image quality: Motion/streak ing artifact limits the evaluation of the skull base and posterior cranial fos sa. Dose modulation, iterative reconstruction, and/or weight based adjustme nt of the mA/kV was utilized to reduce the radiation dose to as low as reasona capo achievable. FINDINGS: Parenchyma: 1. Unchanged minim al chronic microvascular ischemic changes. 2. No mass or hemorrhage. No CT ev idence of acute territorial vascular insult. Extra-axial spaces :No abnormal density. No extra-axial fluid collections Brain volume: Per sistent mild generalized brain volume loss, within normal limits for the gesta tional. Ventricles: No hydrocephalus or displacement. Arteries: No density suggestive of thrombus. Dural sinuses: No abnormal density. Extra-axial spaces: No abnormal density. Foramen magnum: No mass, Chiari malformation, or basilar invagination. Sella: No obvious mass. Paranasal/mastoid sinuses: Imaged portions unremarkable. Skull/ Scalp: No lytic or blastic lesions. No fractures. IMPRESSION: 1. No acute intracranial hemorrhage or cortical infarct. 2. Stable mild chronic mi crovascular ischemic changes changes. Signed by: Dr. Cezar Rosario M.D. on 10:52 AM Dictated By: CEZAR ROSARIO MD 1052 Transcribed By: YAQUELIN on 05/15/18 1052 COPY TO: CHANDANA DOMINGO NP Creatine Kinase MH9616-68-27 10:49:00* Test Item Value Reference Range Interpretation Comments Creatine Kinase MB (test code = 87551-1) 0.80 0-5.0 [facility] AntonioTroponin E2062-35-10 10:49:00* Test Item Value Reference Range Interpretation Comments Troponin I (test code = SBO6769) 0.013 0-0.300 [facility] AntonioCHEST SINGLE (PORTABLE)2018-05-15 10:46:00 [address] [address] Patient Name: MIGUEL FONTENOT MR #: [id number] : 1935 Age/Sex: 82/F Req #: [id number] Adm Physician: CHRISTEL HATHAWAY MD Ordered by: CHANDANA DOMINGO [employer]UFF MAKER Report #: [id number] Location: MED/SURG3 Room/Bed: 298-1 Procedure: DX/CHEST SINGLE (PORTABLE) Exam Date: 05/15/18 Exam Time: 1005 REPORT STATUS: Signed PROCEDURE: A single AP view of the chest. COMPARISON: Chest radiograph 07/03/17. INDICATIONS: P OSSIBLE STROKE FINDINGS: Lines/tubes: None. Lungs: Patchy c onsolidation in the left lower lobe. Right lung is clear. No evidence of pulm onary edema. Pleura: There is no pleural effusion or pneumothorax. Heart and mediastinum: Cardiomediastinal silhouette is unchanged accounting for portable technique. Atherosclerotic calcifications of the aortic arch. Bones: No acute bony abnormality. IMPRESSION: Patchy consolidation in the left lower lobe which could represent aspiration or pneumonia in the appropriate clinical setting. Follow-up radiograph in 6-8 weeks to assess for resolution is suggested. Dictated by: JAZMYN ANDRES M.D. on 2017 at 10:46 Electronically approved by: JAZMYN ANDRES M.D. on 05/15/2018 at 10:46 Dictated By: JAZMYN ANDRES MD 1046 Transcribed By: PENELOPE on 05/15/18 1046 COPY TO: CHANDANA DOMINGO SNUFF MAKER Magnesium Iaeil1721-60-09 10:43:00* Test Item Value Reference Range Interpretation Comments Magnesium Level (test code = 87116-6) 1.5 1.3-2.1 [facility] AntonioTotal Bzpdybpdx9867-27-96 10:43:00* Test Item Value Reference Range Interpretation Comments Total Bilirubin (test code = 1975-2) 0.5 0.2-1.2 [facility] AntonioAspartate Amino Transf (AST/SGOT) 2018-05-15 10:43:00* Test Item Value Reference Range Interpretation Comments Aspartate Amino Transf (AST/SGOT) (test code = Aspartate Amino Transf (AST/SGOT)) 19 5-34 [facility] AntonioAlanine Aminotransferase (ALT/SGPT) 2018-05-15 10:43:00* Test Item Value Reference Range Interpretation Comments Alanine Aminotransferase (ALT/SGPT) (test code = 1742-6) 17 0-55 [facility] AntonioTotal Arlbkoj4036-12-10 10:43:00* Test Item Value Reference Range Interpretation Comments Total Protein (test code = 2885-2) 6.2 6.5-8.1 L [facility] AntonioAlbumin2018-09-17 10:43:00* Test Item Value Reference Range Interpretation Comments Albumin (test code = 1751-7) 2.5 3.5-5.0 L [facility] AntonioGlobulin2018-09-17 10:43:00* Test Item Value Reference Range Interpretation Comments Globulin (test code = 24279-0) 3.7 2.3-3.5 H [facility] AntonioAlbumin/Globulin Iyqek5766-98-60 10:43:00 * Test Item Value Reference Range Interpretation Comments Albumin/Globulin Ratio (test code = 1759-0) 0.7 0.8-2.0 L [facility] AntonioAlkaline Hacwncazbgf0600-01-48 10:43:00* Test Item Value Reference Range Interpretation Comments Alkaline Phosphatase (test code = 6768-6) 79 40-150 [facility] AntonioCreatine Qknavc2126-85-68 10:43:00* Test Item Value Reference Range Interpretation Comments Creatine Kinase (test code = 2157-6) 63 29-168 [facility] AntonioProthrombin Vhqc1935 10:34:00* Test Item Value Reference Range Interpretation Comments Prothrombin Time (test code = 5902-2) 14.5 11.9-14.5 [facility] AntonioProthromb Time International Ratio 2018-05-15 10:34:00* Test Item Value Reference Range Interpretation Comments Prothromb Time International Ratio (test code = 6301-6) 1.22 Oral Anticoagulant Therapy INR Values:1. Low Intensity Therapy 1.5 - 2.02 . Moderate Intensity Therapy 2.0 - 3.03. High Intensity Therapy(1) 2.5 - 3. 54. High Intensity Therapy(2) 3.0 - 4.05. Panic Value INR > 5.0 [facility] AntonioActivated Partial Thromboplast Time 2018-05-15 10:34:00* Test Item Value Reference Range Interpretation Comments Activated Partial Thromboplast Time (test code = 93554-5) 29.0 23.8-35.5 [facility] AntonioDifferential Total Cells Counted 2018-03-30 08:42:00* Test Item Value Reference Range Interpretation Comments Differential Total Cells Counted (test code = Luis Alfredo tial Total Cells Counted) 100 [facility] AntonioNeutrophils % (Manual)2018-03-30 08:42:00 * Test Item Value Reference Range Interpretation Comments Neutrophils % (Manual) (test code = 44208-3) 81 40-74 H [facility] AntonioLymphocytes % (Manual)2018-03-30 08:42:00 * Test Item Value Reference Range Interpretation Comments Lymphocytes % (Manual) (test code = 737-7) 7 19-48 L [facility] AntonioMonocytes % (Manual)2018-03-30 08:42:00* Test Item Value Reference Range Interpretation Comments Monocytes % (Manual) (test code = 744-3) 10 3.4-9.0 H [facility] AntonioEosinophils % (Manual)2018-03-30 08:42:00 * Test Item Value Reference Range Interpretation Comments Eosinophils % (Manual) (test code = 714-6) 2 0-7 [facility] AntonioPlatelet Lzdryhme9413-35-57 08:42:00* Test Item Value Reference Range Interpretation Comments Platelet Estimate (test code = 83354-1) ADEQUATE [facility] AntonioPlatelet Morphology Sqvbwen7621-58-32 08:42:00* Test Item Value Reference Range Interpretation Comments Platelet Morphology Comment (test code = 32942-1) NORMAL [facility] AntonioHypochromasia2018-08-02 08:42:00* Test Item Value Reference Range Interpretation Comments Hypochromasia (test code = 728-6) SLIGHT [facility] AntonioAnisocytosis2018-08-02 08:42:00* Test Item Value Reference Range Interpretation Comments Anisocytosis (test code = 702-1) SLIGHT [facility] AntonioRed Cell Morphology Telyzpl0057-71-80 08:42:00* Test Item Value Reference Range Interpretation Comments Red Cell Morphology Comment (test code = 6742-1) NORMAL [facility] AntonioDifferential Total Cells Counted 2018-03-30 08:42:00* Test Item Value Reference Range Interpretation Comments Differential Total Cells Counted (test code = Luis Alfredo tial Total Cells Counted) 100 [facility] AntonioNeutrophils % (Manual)2018-03-30 08:42:00 * Test Item Value Reference Range Interpretation Comments Neutrophils % (Manual) (test code = 79197-4) 81 40-74 H [facility] AntonioLymphocytes % (Manual)2018-03-30 08:42:00 * Test Item Value Reference Range Interpretation Comments Lymphocytes % (Manual) (test code = 737-7) 7 19-48 L [facility] AntonioMonocytes % (Manual)2018-03-30 08:42:00* Test Item Value Reference Range Interpretation Comments Monocytes % (Manual) (test code = 744-3) 10 3.4-9.0 H [facility] AntonioEosinophils % (Manual)2018-03-30 08:42:00 * Test Item Value Reference Range Interpretation Comments Eosinophils % (Manual) (test code = 714-6) 2 0-7 [facility] AntonioPlatelet Fxjeqltv7657-80-79 08:42:00* Test Item Value Reference Range Interpretation Comments Platelet Estimate (test code = 77286-7) ADEQUATE [facility] AntonioPlatelet Morphology Cmpftsd0635-67-99 08:42:00* Test Item Value Reference Range Interpretation Comments Platelet Morphology Comment (test code = 27086-6) NORMAL [facility] AntonioHypochromasia2018-08-02 08:42:00* Test Item Value Reference Range Interpretation Comments Hypochromasia (test code = 728-6) SLIGHT [facility] AntonioAnisocytosis2018-08-02 08:42:00* Test Item Value Reference Range Interpretation Comments Anisocytosis (test code = 702-1) SLIGHT [facility] AntonioRed Cell Morphology Lwglpph2851-12-93 08:42:00* Test Item Value Reference Range Interpretation Comments Red Cell Morphology Comment (test code = 6742-1) NORMAL [facility] AntonioDifferential Total Cells Counted 2018-03-30 08:42:00* Test Item Value Reference Range Interpretation Comments Differential Total Cells Counted (test code = Differen tial Total Cells Counted) 100 [facility] AntonioNeutrophils % (Manual)2018-03-30 08:42:00 * Test Item Value Reference Range Interpretation Comments Neutrophils % (Manual) (test code = 03417-3) 81 40-74 H [facility] AntonioLymphocytes % (Manual)2018-03-30 08:42:00 * Test Item Value Reference Range Interpretation Comments Lymphocytes % (Manual) (test code = 737-7) 7 19-48 L [facility] AntonioMonocytes % (Manual)2018-03-30 08:42:00* Test Item Value Reference Range Interpretation Comments Monocytes % (Manual) (test code = 744-3) 10 3.4-9.0 H [facility] AntonioEosinophils % (Manual)2018-03-30 08:42:00 * Test Item Value Reference Range Interpretation Comments Eosinophils % (Manual) (test code = 714-6) 2 0-7 [facility] AntonioPlatelet Lrwecteo0079-25-02 08:42:00* Test Item Value Reference Range Interpretation Comments Platelet Estimate (test code = 16053-7) ADEQUATE [facility] AntonioPlatelet Morphology Xzwxifj5652-37-05 08:42:00* Test Item Value Reference Range Interpretation Comments Platelet Morphology Comment (test code = 05245-7) NORMAL [facility] AntonioHypochromasia2018-08-02 08:42:00* Test Item Value Reference Range Interpretation Comments Hypochromasia (test code = 728-6) SLIGHT [facility] AntonioAnisocytosis2018-08-02 08:42:00* Test Item Value Reference Range Interpretation Comments Anisocytosis (test code = 702-1) SLIGHT [facility] AntonioRed Cell Morphology Jitqjlf4522-57-74 08:42:00* Test Item Value Reference Range Interpretation Comments Red Cell Morphology Comment (test code = 6742-1) NORMAL [facility] AntonioDifferential Total Cells Counted 2018-03-30 08:42:00* Test Item Value Reference Range Interpretation Comments Differential Total Cells Counted (test code = Differen tial Total Cells Counted) 100 [facility] AntonioNeutrophils % (Manual)2018-03-30 08:42:00 * Test Item Value Reference Range Interpretation Comments Neutrophils % (Manual) (test code = 66398-1) 81 40-74 H [facility] AntonioLymphocytes % (Manual)2018-03-30 08:42:00 * Test Item Value Reference Range Interpretation Comments Lymphocytes % (Manual) (test code = 737-7) 7 19-48 L [facility] AntonioMonocytes % (Manual)2018-03-30 08:42:00* Test Item Value Reference Range Interpretation Comments Monocytes % (Manual) (test code = 744-3) 10 3.4-9.0 H [facility] AntonioEosinophils % (Manual)2018-03-30 08:42:00 * Test Item Value Reference Range Interpretation Comments Eosinophils % (Manual) (test code = 714-6) 2 0-7 [facility] AntonioPlatelet Xqihoqvf4794-69-47 08:42:00* Test Item Value Reference Range Interpretation Comments Platelet Estimate (test code = 35064-8) ADEQUATE [facility] AntonioPlatelet Morphology Hybhmrs1946-06-70 08:42:00* Test Item Value Reference Range Interpretation Comments Platelet Morphology Comment (test code = 20904-3) NORMAL [facility] AntonioHypochromasia2018-08-02 08:42:00* Test Item Value Reference Range Interpretation Comments Hypochromasia (test code = 728-6) SLIGHT [facility] AntonioAnisocytosis2018-08-02 08:42:00* Test Item Value Reference Range Interpretation Comments Anisocytosis (test code = 702-1) SLIGHT [facility] AntonioRed Cell Morphology Dwdljet4065-68-82 08:42:00* Test Item Value Reference Range Interpretation Comments Red Cell Morphology Comment (test code = 6742-1) NORMAL [facility] AntonioDifferential Total Cells Counted 2018-03-30 08:42:00* Test Item Value Reference Range Interpretation Comments Differential Total Cells Counted (test code = Differen tial Total Cells Counted) 100 [facility] AntonioNeutrophils % (Manual)2018-03-30 08:42:00 * Test Item Value Reference Range Interpretation Comments Neutrophils % (Manual) (test code = 12207-8) 81 40-74 H [facility] AntonioLymphocytes % (Manual)2018-03-30 08:42:00 * Test Item Value Reference Range Interpretation Comments Lymphocytes % (Manual) (test code = 737-7) 7 19-48 L [facility] AntonioMonocytes % (Manual)2018-03-30 08:42:00* Test Item Value Reference Range Interpretation Comments Monocytes % (Manual) (test code = 744-3) 10 3.4-9.0 H [facility] AntonioEosinophils % (Manual)2018-03-30 08:42:00 * Test Item Value Reference Range Interpretation Comments Eosinophils % (Manual) (test code = 714-6) 2 0-7 [facility] AntonioPlatelet Xqgkoktu9719-92-66 08:42:00* Test Item Value Reference Range Interpretation Comments Platelet Estimate (test code = 40233-7) ADEQUATE [facility] AntonioPlatelet Morphology Zmpvqwr0892-74-59 08:42:00* Test Item Value Reference Range Interpretation Comments Platelet Morphology Comment (test code = 84070-9) NORMAL [facility] AntonioHypochromasia2018-08-02 08:42:00* Test Item Value Reference Range Interpretation Comments Hypochromasia (test code = 728-6) SLIGHT [facility] AntonioAnisocytosis2018-08-02 08:42:00* Test Item Value Reference Range Interpretation Comments Anisocytosis (test code = 702-1) SLIGHT [facility] AntonioRed Cell Morphology Fdfgzmj1433-65-06 08:42:00* Test Item Value Reference Range Interpretation Comments Red Cell Morphology Comment (test code = 6742-1) NORMAL [facility] AntonioThyroid Stimulating Hormone (TSH) 2018-03-30 06:23:00* Test Item Value Reference Range Interpretation Comments Thyroid Stimulating Hormone (TSH) (test code = 53206-8) 1.496 0.350-4.940 [facility] AntonioThyroid Stimulating Hormone (TSH) 2018-03-30 06:23:00* Test Item Value Reference Range Interpretation Comments Thyroid Stimulating Hormone (TSH) (test code = 50502-7) 1.496 0.350-4.940 [facility] AntonioThyroid Stimulating Hormone (TSH) 2018-03-30 06:23:00* Test Item Value Reference Range Interpretation Comments Thyroid Stimulating Hormone (TSH) (test code = 93636-3) 1.496 0.350-4.940 [facility] AntonioThyroid Stimulating Hormone (TSH) 2018-03-30 06:23:00* Test Item Value Reference Range Interpretation Comments Thyroid Stimulating Hormone (TSH) (test code = 06361-4) 1.496 0.350-4.940 [facility] AntonioThyroid Stimulating Hormone (TSH) 2018-03-30 06:23:00* Test Item Value Reference Range Interpretation Comments Thyroid Stimulating Hormone (TSH) (test code = 62826-5) 1.496 0.350-4.940 [facility] AntonioTriglycerides Wrzrc1842-40-95 06:00:00* Test Item Value Reference Range Interpretation Comments Triglycerides Level (test code = 2571-8) 152 0-149 H [facility] AntonioCholesterol Sjokm6444-57-24 06:00:00* Test Item Value Reference Range Interpretation Comments Cholesterol Level (test code = 2093-3) 157 0-199 Less than 200 mg/dL Low Nynd842 - 239 mg/dL Borderline Nnjx532 m g/dl and greater High Risk [facility] AntonioLDL Ixzdsfxzxqz2623-83-63 06:00:00* Test Item Value Reference Range Interpretation Comments LDL Cholesterol (test code = 2089-1) 83 60-130 [facility] Nahcayunzgv2720-94-11 06:00:00* Test Item Value Reference Range Interpretation Comments HDL Cholesterol (test code = 2085-9) 44 40-60 [facility] AntonioCholesterol/HDL Karxo5093-40-79 06:00:00 * Test Item Value Reference Range Interpretation Comments Cholesterol/HDL Ratio (test code = 9830-1) 3.6 3.0-3.6 [facility] AntonioTriglycerides Nccgr7298-19-88 06:00:00* Test Item Value Reference Range Interpretation Comments Triglycerides Level (test code = 2571-8) 152 0-149 H [facility] AntonioCholesterol Ghnyk4173-84-94 06:00:00* Test Item Value Reference Range Interpretation Comments Cholesterol Level (test code = 2093-3) 157 0-199 Less than 200 mg/dL Low Amto713 - 239 mg/dL Borderline Akgs722 m g/dl and greater High Risk [facility] AntonioLDL Yhnkcrapahd1261-63-70 06:00:00* Test Item Value Reference Range Interpretation Comments LDL Cholesterol (test code = 2089-1) 83 60-130 [facility] Bvbgmbotmbt9256-38-23 06:00:00* Test Item Value Reference Range Interpretation Comments HDL Cholesterol (test code = 2085-9) 44 40-60 [facility] AntonioCholesterol/HDL Kmkki8457-10-53 06:00:00 * Test Item Value Reference Range Interpretation Comments Cholesterol/HDL Ratio (test code = 9830-1) 3.6 3.0-3.6 [facility] AntonioTriglycerides Iugcf0241-40-58 06:00:00* Test Item Value Reference Range Interpretation Comments Triglycerides Level (test code = 2571-8) 152 0-149 H [facility] AntonioCholesterol Myauh3548-01-87 06:00:00* Test Item Value Reference Range Interpretation Comments Cholesterol Level (test code = 2093-3) 157 0-199 Less than 200 mg/dL Low Zjgc878 - 239 mg/dL Borderline Ftrt931 m g/dl and greater High Risk [facility] AntonioLDL Wdstxxpucep9794-31-00 06:00:00* Test Item Value Reference Range Interpretation Comments LDL Cholesterol (test code = 2089-1) 83 60-130 [facility] Axbgkpuhsgb5119-05-69 06:00:00* Test Item Value Reference Range Interpretation Comments HDL Cholesterol (test code = 2085-9) 44 40-60 [facility] AntonioCholesterol/HDL Wksww0374-98-60 06:00:00 * Test Item Value Reference Range Interpretation Comments Cholesterol/HDL Ratio (test code = 9830-1) 3.6 3.0-3.6 [facility] AntonioTriglycerides Jsoop3477-41-49 06:00:00* Test Item Value Reference Range Interpretation Comments Triglycerides Level (test code = 2571-8) 152 0-149 H [facility] AntonioCholesterol Qlizz2719-03-86 06:00:00* Test Item Value Reference Range Interpretation Comments Cholesterol Level (test code = 2093-3) 157 0-199 Less than 200 mg/dL Low Bdfh385 - 239 mg/dL Borderline Gztn882 m g/dl and greater High Risk [facility] AntonioLDL Nglexetcbnc5077-50-40 06:00:00* Test Item Value Reference Range Interpretation Comments LDL Cholesterol (test code = 2089-1) 83 60-130 [facility] Cvphuyoitdq5605-65-33 06:00:00* Test Item Value Reference Range Interpretation Comments HDL Cholesterol (test code = 2085-9) 44 40-60 [facility] AntonioCholesterol/HDL Wrtqz2866-07-79 06:00:00 * Test Item Value Reference Range Interpretation Comments Cholesterol/HDL Ratio (test code = 9830-1) 3.6 3.0-3.6 [facility] AntonioTriglycerides Sxkag2232-31-09 06:00:00* Test Item Value Reference Range Interpretation Comments Triglycerides Level (test code = 2571-8) 152 0-149 H [facility] AntonioCholesterol Arjbx3008-50-98 06:00:00* Test Item Value Reference Range Interpretation Comments Cholesterol Level (test code = 2093-3) 157 0-199 Less than 200 mg/dL Low Jkgt900 - 239 mg/dL Borderline Jywl997 m g/dl and greater High Risk [facility] AntonioLDL Xzsimzgudeg0203-35-57 06:00:00* Test Item Value Reference Range Interpretation Comments LDL Cholesterol (test code = 2089-1) 83 60-130 [facility] AntonioHDL Ppxduwdxcis6105-38-99 06:00:00* Test Item Value Reference Range Interpretation Comments HDL Cholesterol (test code = 2085-9) 44 40-60 [facility] AntonioCholesterol/HDL Ttemq7525-06-87 06:00:00 * Test Item Value Reference Range Interpretation Comments Cholesterol/HDL Ratio (test code = 9830-1) 3.6 3.0-3.6 [facility] AntonioWhite Blood Pzhxt1459-59-70 05:52:00* Test Item Value Reference Range Interpretation Comments White Blood Count (test code = 6690-2) 6.53 4.8-10.8 [facility] AntonioRed Blood Ucoog5064-25-08 05:52:00* Test Item Value Reference Range Interpretation Comments Red Blood Count (test code = 789-8) 3.84 3.6-5.1 [facility] AntonioHemoglobin2018-08-02 05:52:00* Test Item Value Reference Range Interpretation Comments Hemoglobin (test code = 00246-7) 11.6 12.0-16.0 L [facility] AntonioHematocrit2018-08-02 05:52:00* Test Item Value Reference Range Interpretation Comments Hematocrit (test code = 4544-3) 34.8 34.2-44.1 [facility] AntonioMean Corpuscular Dbfafh4523-12-10 05:52:00* Test Item Value Reference Range Interpretation Comments Mean Corpuscular Volume (test code = 787-2) 90.6 81-99 [facility] AntonioMean Corpuscular Zhgbhcjfbg1532-05-22 05:52:00* Test Item Value Reference Range Interpretation Comments Mean Corpuscular Hemoglobin (test code = 785-6) 30.2 28-32 [facility] AntonioMean Corpuscular Hemoglobin Concent 2018-03-30 05:52:00* Test Item Value Reference Range Interpretation Comments Mean Corpuscular Hemoglobin Concent (test code = 786-4) 33.3 31-35 [facility] AntonioRed Cell Distribution Bwpas6896-26-32 05:52:00* Test Item Value Reference Range Interpretation Comments Red Cell Distribution Width (test code = 82089-7) 13.3 11.7 -14.4 [facility] AntonioPlatelet Sbxru9870-95-49 05:52:00* Test Item Value Reference Range Interpretation Comments Platelet Count (test code = 777-3) 92 140-360 L [facility] AntonioNeutrophils (%) (Auto)2018-03-30 05:52:00 * Test Item Value Reference Range Interpretation Comments Neutrophils (%) (Auto) (test code = 18728-9) 76.4 38.7-80.0 [facility] AntonioLymphocytes (%) (Auto)2018-03-30 05:52:00 * Test Item Value Reference Range Interpretation Comments Lymphocytes (%) (Auto) (test code = 736-9) 8.0 18.0-39.1 L [facility] AntonioMonocytes (%) (Auto)2018-03-30 05:52:00* Test Item Value Reference Range Interpretation Comments Monocytes (%) (Auto) (test code = 5905-5) 10.7 4.4-11.3 [facility] AntonioEosinophils (%) (Auto)2018-03-30 05:52:00 * Test Item Value Reference Range Interpretation Comments Eosinophils (%) (Auto) (test code = 713-8) 3.8 0.0-6.0 [facility] AntonioBasophils (%) (Auto)2018-03-30 05:52:00* Test Item Value Reference Range Interpretation Comments Basophils (%) (Auto) (test code = 706-2) 0.3 0.0-1.0 [facility] AntonioIM GRANULOCYTES %2018-03-30 05:52:00* Test Item Value Reference Range Interpretation Comments IM GRANULOCYTES % (test code = IM GRANULOCYTES %) 0.8 0.0- 1.0 [facility] AntonioNeutrophils # (Auto)2018-03-30 05:52:00* Test Item Value Reference Range Interpretation Comments Neutrophils # (Auto) (test code = 751-8) 5.0 2.1-6.9 [facility] AntonioLymphocytes # (Auto)2018-03-30 05:52:00* Test Item Value Reference Range Interpretation Comments Lymphocytes # (Auto) (test code = 57376-1) 0.5 1.0-3.2 L [facility] AntonioMonocytes # (Auto)2018-03-30 05:52:00* Test Item Value Reference Range Interpretation Comments Monocytes # (Auto) (test code = 742-7) 0.7 0.2-0.8 [facility] AntonioEosinophils # (Auto)2018-03-30 05:52:00* Test Item Value Reference Range Interpretation Comments Eosinophils # (Auto) (test code = 711-2) 0.3 0.0-0.4 [facility] AntonioBasophils # (Auto)2018-03-30 05:52:00* Test Item Value Reference Range Interpretation Comments Basophils # (Auto) (test code = 704-7) 0.0 0.0-0.1 [facility] AntonioAbsolute Immature Granulocyte (auto 2018-03-30 05:52:00* Test Item Value Reference Range Interpretation Comments Absolute Immature Granulocyte (auto (karo t code = Absolute Immature Granulocyte (auto) 0.05 0-0.1 [facility] AntonioTroponin T3361-56-05 08:35:00* Test Item Value Reference Range Interpretation Comments Troponin I (test code = JYD4297) 0.021 0-0.300 [facility] AntonioCreatine Kinase HT6253-97-96 08:30:00* Test Item Value Reference Range Interpretation Comments Creatine Kinase MB (test code = 96506-8) 1.00 0-5.0 [facility] AntonioCreatine Elsgko2319-79-62 08:23:00* Test Item Value Reference Range Interpretation Comments Creatine Kinase (test code = 2157-6) 64 29-168 [facility] Evtfb0405-78-54 08:20:00* Test Item Value Reference Range Interpretation Comments Sodium Level (test code = 2951-2) 142 136-145 [facility] AntonioPotassium Uugbk0984-49-55 08:20:00* Test Item Value Reference Range Interpretation Comments Potassium Level (test code = 2823-3) 4.0 3.5-5.1 [facility] AntonioChloride Ancyb7308-73-59 08:20:00* Test Item Value Reference Range Interpretation Comments Chloride Level (test code = 2075-0) 110 98-107 H [facility] AntonioCarbon Dioxide Ffgxr8001-48-86 08:20:00* Test Item Value Reference Range Interpretation Comments Carbon Dioxide Level (test code = 2028-9) 22 22-29 [facility] AntonioAnion Eeb6161-59-90 08:20:00* Test Item Value Reference Range Interpretation Comments Anion Gap (test code = 18726-3) 14.0 8-16 [facility] AntonioBlood Urea Lywxjqcj6661-85-05 08:20:00* Test Item Value Reference Range Interpretation Comments Blood Urea Nitrogen (test code = 3094-0) 50 7-26 H [facility] AntonioCreatinine2018-08-01 08:20:00* Test Item Value Reference Range Interpretation Comments Creatinine (test code = 2160-0) 6.02 0.57-1.11 H [facility] AntonioBUN/Creatinine Oagvj9834-47-11 08:20:00* Test Item Value Reference Range Interpretation Comments BUN/Creatinine Ratio (test code = 3097-3) 8 6-25 [facility] AntonioEstimat Glomerular Filtration Rate 2018-03-29 08:20:00* Test Item Value Reference Range Interpretation Comments Estimat Glomerular Filtration Rate (test code = 68032-0) 7 >60 L Ranges were taken from the National Kidney Disease Education Program and the [facility] [employer] literature.Reference ranges:60 or greater: Iwouqy41-03 ( for 3 consecutive months): Chronic kidney disease 15 or less: Kidney failureChildren's Hospital of San AntonioGlucose Doqfd2278-96-83 08:20:00* Test Item Value Reference Range Interpretation Comments Glucose Level (test code = JGQ8094) 108 74-118 [facility] AntonioCalcium Ycoqo5234-02-69 08:20:00* Test Item Value Reference Range Interpretation Comments Calcium Level (test code = 90219-5) 10.0 8.4-10.2 [facility] AntonioMagnesium Cevyf4110-42-80 15:53:00* Test Item Value Reference Range Interpretation Comments Magnesium Level (test code = 45731-1) 1.8 1.3-2.1 [facility] AntonioB-Type Natriuretic Swynqro6769-82-24 15:04:00* Test Item Value Reference Range Interpretation Comments B-Type Natriuretic Peptide (test code = 98446-7) 68.0 0-100 [facility] AntonioLactic Acid Lrnqz0749-87-68 14:57:00* Test Item Value Reference Range Interpretation Comments Lactic Acid Level (test code = Lactic Acid Level) 12.2 4.5- 19.8 [facility] AntonioTotal Ngoxrltlb4294-94-02 14:57:00* Test Item Value Reference Range Interpretation Comments Total Bilirubin (test code = 1975-2) 0.5 0.2-1.2 [facility] AntonioAspartate Amino Transf (AST/SGOT) 2017-07-03 14:57:00* Test Item Value Reference Range Interpretation Comments Aspartate Amino Transf (AST/SGOT) (test code = Aspartate Amino Transf (AST/SGOT)) 21 5-34 [facility]/SGPT[facility] 2017-07-03 14:57:00* Test Item Value Reference Range Interpretation Comments Alanine Aminotransferase (ALT/SGPT) (test code = 1742-6) 19 0-55 [facility] Antonio[facility] Ihpjxmy5385-08-69 14:57:00* Test Item Value Reference Range Interpretation Comments Total Protein (test code = 2885-2) 7.4 6.5-8.1 [facility]2017-[facility] 14:57:00* Test Item Value Reference Range Interpretation Comments Albumin (test code = 1751-7) 3.1 3.5-5.0 L [facility]ulin2017-11-05 14:57:00* Test Item Value Reference Range Interpretation Comments Globulin (test code = 75138-0) 4.3 2.3-3.5 H [facility] AntonioAlbum[facility]/Globulin Bxrpg6763-60-85 14:57:00 * Test Item Value Reference Range Interpretation Comments Albumin/Globulin Ratio (test code = 1759-0) 0.7 0.8-2.0 L [facility] AntonioAlkaline Bqgloasiart0669-17-07 14:57:00* Test Item Value Reference Range Interpretation Comments Alkaline Phosphatase (test code = 6768-6) 91 40-150 [facility] Antonio[facility]ase2017-11-05 14:57:00* Test Item Value Reference Range Interpretation Comments Lipase (test code = 3040-3) 35 8-78 [facility] AntonioProthrombin Tvos7247-31-81 14:47:00* Test Item Value Reference Range Interpretation Comments Prothrombin Time (test code = 5902-2) 13.8 11.9-14.5 [facility] AntonioProthromb Time International Ratio 2017-07-03 14:47:00* Test Item Value Reference Range Interpretation Comments Prothromb Time International Ratio (test code = 6301-6) 1.01 Oral Anticoagulant Therapy INR Values:1. Low Intensity Therapy 1.5 - 2.02 . Moderate Intensity Therapy 2.0 - 3.03. High Intensity Therapy(1) 2.5 - 3. 54. High Intensity Therapy(2) 3.0 - 4.05. Panic Value INR > 5.0 [facility] AntonioAct[facility] Partial Thromboplast Time 2017-07-03 14:47:00* Test Item Value Reference Range Interpretation Comments Activated Partial Thromboplast Time (test code = 09679-0) 30.6 23.8-35.5 [facility] Antonio[facility] PVN4056-47-25 14:44:00* Test Item Value Reference Range Interpretation Comments Urine WBC (test code = 5821-4) 11-20 0-5 H [facility] Antonio[facility] YKA5846-04-10 14:44:00* Test Item Value Reference Range Interpretation Comments Urine RBC (test code = 78265-7) 11-20 0-5 H [facility] Gsvycuoh7792-26-81 14:44:00* Test Item Value Reference Range Interpretation Comments Urine Bacteria (test code = 46922-2) MODERATE NONE H [facility] Epithelial Ynotg7394-64-33 14:44:00 * Test Item Value Reference Range Interpretation Comments Urine Epithelial Cells (test code = 26427-3) MODERATE NONE [facility] Zizud2799-27-02 14:29:00* Test Item Value Reference Range Interpretation Comments Urine Color (test code = 5778-6) YELLOW YELLOW [facility] Ddydfxl0147-74-78 14:29:00* Test Item Value Reference Range Interpretation Comments Urine Clarity (test code = 35871-5) SL CLOUDY CLEAR [facility] Specific Mbxijdf4847-40-42 14:29:00 * Test Item Value Reference Range Interpretation Comments Urine Specific [place] (test code = 5811-5) 1.020 1.010-1.02 5 [facility] iD4716-41-80 14:29:00* Test Item Value Reference Range Interpretation Comments Urine pH (test code = 39909-1) 5 5-7 [facility] Leukocyte Tjrhhizt7609-86-54 14:29:00* Test Item Value Reference Range Interpretation Comments Urine Leukocyte Esterase (test code = 5799-2) 1+ NEGATIVE H [facility] Jsghypm8530-79-13 14:29:00* Test Item Value Reference Range Interpretation Comments Urine Nitrite (test code = 42593-7) NEGATIVE NEGATIVE [facility] Iczlspb0926-80-61 14:29:00* Test Item Value Reference Range Interpretation Comments Urine Protein (test code = 5804-0) 3+ NEGATIVE H [facility] Glucose (UA)2017-07-03 14:29:00* Test Item Value Reference Range Interpretation Comments Urine Glucose (UA) (test code = 2349-9) 1+ NEGATIVE H [facility] Ammzywf5937-34-79 14:29:00* Test Item Value Reference Range Interpretation Comments Urine Ketones (test code = 40398-5) NEGATIVE NEGATIVE [facility] Zxfkwjvfifxh6529-49-32 14:29:00* Test Item Value Reference Range Interpretation Comments Urine Urobilinogen (test code = 15126-3) 0.2 0.2-1 [facility] Pgqvpnodu4221-17-55 14:29:00* Test Item Value Reference Range Interpretation Comments Urine Bilirubin (test code = 1978-6) 1+ NEGATIVE H [facility] Caaut5236-98-85 14:29:00* Test Item Value Reference Range Interpretation Comments Urine Blood (test code = 48522-7) 2+ NEGATIVE H [facility] AntonioBedside Ncilxpe8534-24-16 07:22:00* Test Item Value Reference Range Interpretation Comments Bedside Glucose (test code = 38408-2) 96 70-120 Meter ID: [id number] [facility] Hwaud6963-95-26 17:08:00* Test Item Value Reference Range Interpretation Comments Urine Mucus (test code = 8247-9) FEW RARE H [facility] AntonioELECTROLYTES2017-03-09 12:03:004.3[facility] VZWZCEQ5594-84-18 16:13:00Negative (10/28/16 10:13 AM)[facility] HospitalBmysupcmjJDGLOVZTELIO3944-74-33 16:13:0012.4[facility] HospitalIddpuooucVSOUHJTZTKIQ6154-39-84 16:13:0012[facility] HospitalKfixwnunaOJNHJMIUHJOB1313-22-41 16:13:0036 SoutheastELECTROLYTES 2016-10-28 16:13:0095[facility] HospitalPkyvdtohtDUFXBRCAOEBF3882-62-98 16:13:003.50 [facility] XPLXZIXHXGPQ9882-94-83 16:13:009.1M VgremjwudPREAHDJXDQAZ0630-65-50 16:13:0021 [facility] HospitalYekwsodbaWPGAOOWEKOFL2450-22-16 16:13:004.4[facility] HospitalAyjmgzrlkRXNPJGQCIUUJ0664-12-65 16:13:87812DCGro[facility] HospitalFnizthgarGNXIDXNXXBMF2691-13-69 16:13:98940SP SoutheastHEMATOLOGY 2016-10-28 16:13:0021.2M TssnsueftXJHCQTSTBY4909-90-44 16:13:001.5[facility] IDKQZIBSXG1435-91-53 16:13:004.2M DmvokhlqeEVKGAMPKJZ5411-06-60 16:13:003.9 RsfjxtjyoCADSBQXRVF5199-33-19 16:13:007.5 YasmtcivgYJDGBUULNN1046-47-20 16:13:000.2M XytqvcfjqRNXATQSZWI7041-61-10 16:13:001.4 [facility] 2016-10-28 16:13:000.[address]UFHTCJAN8133-62-40 16:13:000.[address] [place] [address] DQUDSSKKLB9750-34-13 16:13:0065.9 IhdxgkarrNPXUKJNITK9667-32-59 16:13:001.04[facility] HospitalBqnrinuxbWFSEYZGCRB7152-63-62 16:13:00* Test Item Value Reference Range Interpretation Comments PT (test code = PT) 13.8 s 12.0-14.7 TbwcxtnbwHZETMNFYDK5107-59-99 16:13:00* Test Item Value Reference Range Interpretation Comments PTT (test code = PTT) 30.0 s 22.9-35.8 FqqmojzgvHLFZGRAFMU6044-28-30 16:13:008.3M JsgdravqrECNSJTLMKO0630-14-38 16:13:0034.0 TbbsjeuxqJDDAGKOHBM6580-88-99 16:13:0013.5 [facility] 2016-10-28 16:13:003.45 SldplgiouBIXZFRYACC6144-06-29 16:13:0030.5[facility] XMGBIQUBOZ2761-25-68 16:13:0010.4 BcssmkntlITLPTNZEOZ9595-53-32 16:13:0088.5 AxaxrwrqiOHNCLCLBKI4533-24-11 16:13:00* Test Item Value Reference Range Interpretation Comments MCH (test code = MCH) 30.1 pg 27.0-31.0 KafpsrjrzJSHKTGXXYZ5401-92-23 16:13:64936GE GjvmzhibxDWIIQAQRUO2599-58-61 16:13:006.4 ThugcqnoyFOVKRFEEUGTY7511-46-88 12:54:475.0 SoutheastCHEM PANEL 2015-11-17 21:43:0018 [facility]CHEM RYINN9827-84-54 21:43:007.9 [facility] DLTXY7145-11-13 21:43:0020 SoutheastCHEM WHQVX5609-87-89 21:43:28558IR [facility]CHEM HZRZI4517-26-05 21:43:004.8 [facility]CHE[facility] SQPUY7169-61-18 21:43:68791YD SoutheastCHEM FMDFZ4431-01-29 21:43:002.45 [facility]CHEM PANEL 2015-11-17 21:43:0037 [facility]CHE[facility] TCVEQ9638-49-77 21:43:86465VG [facility] BOKZD5139-27-37 21:43:0011.8 TpoabxoghOIXIGQQPYG1404-02-94 21:43:001.15 FomcmeomnBCFPMXYUYH5149-39-26 21:43:00* Test Item Value Reference Range Interpretation Comments PT (test code = PT) 15.0 s 12.0-14.7 DfncodqmiCHGGZPTXYI3472-31-67 21:43:0089.9 NltcgenryXKNBIBSLST0512-30-31 21:43:008.5 DmdvxqfjpZZQBEYMGGL1430-10-11 21:43:0033.1M [facility]HEMAT[facility]Y 2015-11-17 21:43:0014.3M LxyncxqdrJEQPYCZIGE5640-56-25 21:43:00* Test Item Value Reference Range Interpretation Comments MCH (test code = MCH) 29.7 pg 27.0-31.0 OwcegmbmkYVUXSAUSGK8154-28-90 21:43:63980KR QpvieskfcZNDFBVGTVI1471-51-58 21:43:0027.1M CugyvhhvbAWNMHWIWCU7652-86-19 21:43:003.01 [facility] 2015-11-17 21:43:009.0 BxuyiesqkDJSXQTVYGO2074-69-75 21:43:005.6MH [facility] BIKKLQPIUR5906-81-44 21:43:00* Test Item Value Reference Range Interpretation Comments PTT (test code = PTT) 27.1 s 22.9-35.8 UvkhmxsvqTIVCVXFCJF2471-07-58 21:43:000.1M JvhfpjnghVOISVHLOWV1902-13-20 21:43:003.9 JjvbmpsxaXCPCDBTBJC0383-51-56 21:43:000.1M [facility] 2015-11-17 21:43:001.1M WvalkqvkvRMAHRYZIOY3309-20-31 21:43:000.5[facility] ZKNDGMQXEM6595-83-18 21:43:0018.8 XygerjcgvXGAMUTGWYT1638-41-60 21:43:001.4 AjosarhjuHLIROWLWJL4821-55-37 21:43:008.0 XqcbubmiiRFEUGKVEMS2027-61-18 21:43:002.1M ZllxhatqkAEGQYVKFVQ7383-36-33 21:43:0069.7 [facility]CHE[facility] PANEL 2015-03-24 14:14:06316CJ YcdsvmbtwLLEOAFLWFEPE6272-16-90 14:14:005.4 [facility] FZQKX3031-03-15 19:57:0050 [facility]CHEM RNFAH4603-14-31 19:57:0013 [facility]CHEM UFOYR4080-03-68 19:57:003.3M [facility] NKFJF2370-03-96 19:57:50817VP [facility]CHEM KNATZ3396-34-90 19:57:45079UD SoutheastCHEM PANEL 2015-03-17 19:57:004.7 [facility]CHEM VULUC8169-01-09 19:57:26543SU [facility] DOWCN6804-55-78 19:57:009.2M [facility]CHEM CMVBX9877-34-50 19:57:0020 [facility] SSZUP7565-90-02 19:57:0015.7 OdxdlshwaHXAVOGRTEA4227-16-20 19:57:00* Test Item Value Reference Range Interpretation Comments PTT (test code = PTT) 34.3 s 22.9-35.8 VeuvirfycADLKPCQYMN5386-92-94 19:57:001.16 KberprpujCWPJXWOBHI4505-52-04 19:57:00* Test Item Value Reference Range Interpretation Comments PT (test code = PT) 14.9 s 12.0-14.7 XmlulfreaMMIPMOECYK8775-33-03 19:57:009.0 CwwqlznabBTKEHDGZSI6765-35-39 19:57:51045QQ YucibvmvaGJYUVJTLNA7794-33-48 19:57:0027.7 [facility] 2015-03-17 19:57:0087.9 VfnynhtniAQPFNTJVFK4775-27-08 19:57:003.15[facility] IJHYXLOJJY1198-04-53 19:57:009.3M XhfnbbfbcFJBWYGJVHA7008-43-97 19:57:0033.7 YgocmuozlOSPQXAZRYJ0356-17-61 19:57:0014.0 AnzlwshapQKLESSIUNT1452-09-58 19:57:00* Test Item Value Reference Range Interpretation Comments MCH (test code = MCH) 29.6 pg 27.0-31.0 CbfzejbcqYGUNJYULCE8695-53-90 19:57:005.4 JcbmsymdgTEPNODCDRV0154-28-91 19:57:001.2M NofsptvmhPTAEBGTYWF2282-29-91 19:57:003.4 [facility] 2015-03-17 19:57:001.4 WvbjfcjljMHFQAILOWO5777-76-12 19:57:003.0[facility] ISNFOGCZPE3504-49-37 19:57:000.1MH YvspnpxouYDVCVRRQJM2686-11-70 19:57:000.6MH KvrpxnsfaAQKPISOWDW5602-21-88 19:57:000.2M MwhhhanhwYRBFODKOUS7872-22-23 19:57:0010.9 XbageprmyLYYUSGNXVX3318-56-99 19:57:0062.7 [facility]HEMAT[facility] 2015-03-17 19:57:0022.0[facility] [address] [place] [address] Patient Name: MIGUEL FONTENOT MR #: [id number] : 1935 Age/Sex: 82/F Req #: [id number] Adm Physician: Ordered by: LOY SO SNUFF MAKER Report #: [id number] Location: Room/Bed: Procedure: [id number] CT/CT BRAIN WO Exam Da te: 07/03/17 Exam Time: 1315 REPORT STATUS: Sig walter History:Numbness right hand and leg Comparison studies:CT head 7 and 06/13/2017. MRI brain 06/14/2017 Technique: Axial images were obtai walter from the skull base to the vertex. Coronal and sagittal images reconstruct ed from the axial data. Intravenous contrast: None Findings: Scalp/s kull: No abnormalities. Extra-axial spaces: Stable left frontal 1 cm extra-axial lesion. No fluid collections. Brain sulci: Mildly prominent. Ventricles: Mild compensatory dilatation. No hydrocephalus. Parenchyma: Scattered small hypodensities in the supratentorial white matter are small ves padmini ischemic changes. No masses, hemorrhage, acute or chronic cortical vascula r insults. Sellar/suprasellar region: No abnormalities. Craniocervical ju nction: Patent foramen magnum. No Chiari one malformation. Incidental find ings: Atherosclerotic calcifications in the carotid siphons and vertebral dany jessica . Impression: No acute abnormalities. Chronic findings: 1. Mild generalized volume loss. 2. Mild supratentorial white matter small ves padmini ischemic changes. 3. Left frontal extra-axial lesion, likely meningioma Signed by: DR Severiano Weeks M.D. on 07/03/2017 1:56 PM Dictated By: SEVERIANO DE AL ROSA MD 1352 Transcribed By: YAQUELIN on 07/03/17 1356 COPY TO: Corey SO NP CHEST SINGLE (PORTABLE) [place] [address] Patient Name: MIGUEL FONTENOT MR #: [id number] : 1935 Age/Sex: 82/F Req #: [id number] Adm Physician: Ordered by: LOY SO SNUFF MAKER Report #: [id number] Location: ER Room/Bed: Procedure: [id number] DX/CHEST SINGLE (PORTAB LE) Exam Date: 07/03/17 Exam Time: 1329 REPORT STATUS: Signed Portable chest x-ray INDICATION: Arm numbness COMP ARISON: Chest x-ray 03/27/2012 FINDINGS: Frontal view of the chest obtained at 1312 hours. The cardiac silhouette is top normal in size but stable. Calci fications of the aorta are stable. There are calcifications throughout the tra cheobronchial tree. The pulmonary vascular markings are normal. The lung s demonstrate no infiltrate or mass. The costophrenic angles are sharp. Ther e is no pneumothorax. The osseous structures are stable with mild levoscolios is of the thoracic spine. IMPRESSION: No acute cardiopulmonary process . Signed by: Dr. Sisi Rodriguez MD on 07/03/2017 2:12 PM Dictated By: SISI RODRIGUEZ MD 1412 COPY TO: MARLA SO SNUFF MAKER MRI BRAIN WO [place] [address] Patient Name: MIGUEL FONTENOT MR #: [id number] : 1935 Age/Sex: 82/F Req #: [id number] Adm Physician: RODNEY SHIPMAN MD Ordered by: RODNEY SHIPMAN MD Report #: [id number] Location: [facility] Room/Bed: [facility] 1831 Procedure: [id number] MRI/MRI BRAIN WO Exam Date: Exam Time: REPORT STATUS: Signed Exam: Brain MRI without IV contrast History: TIA, right arm weakness, facial drooping. Comparison studies: Head CTs of 07/05/2013 and 06/13/2017. Technique: Sagittal T2; axial DWI, FLAIR, T2*GRE, T1, C oronal T2 FLAIR. Intravenous contrast: None Findings: Scalp: Normal in signal. No masses. Bone marrow: Normal in signal intensity. Brain sulc i: Mild to moderately prominent. Ventricles: Mild to moderately prominent. No hydrocephalus. Extra-axial spaces: A 13 mm AP x 5 mm TV extra-axial mass a t the left frontal, just posterior to the left coronal suture without mass eff ect edema or associated edema in the underlying parenchyma is likely an incide ntal meningioma. This lesion was likely subtly present retrospectively on the previous CTs which date to 07/05/2013. Parenchyma: No mass, hemorrhage or acute ischemia. A few scattered and mildly confluent-appearing ventricular T2 FLAIR hyperintense foci as well as a few subtle T2 hyperintense foci within the catina are nonspecific but most compatible with chronic microvascular ischem ic changes. Suprasellar region: No abnormalities. Craniocervical junction : Patent foramen magnum. No Chiari malformation. Vessels: Normal flow-voids i n the arteries and sinuses. IMPRESSION: No acute ischemia. No change s from the previous head CT of 07/14/2017. Chronic findings: 1. Mild to moderate generalized volume loss. 2. Mild chronic microvascular ischemic bogdan nges. 3. Unchanged small left frontal extra-axial lesion is presumably an inc idental meningioma. Signed by: Dr. Atilio Abarca M.D. on 06/14/2017 10:0 5 AM Dictated By: ATILIO ABARCA MD 1005 Transcribed By: YAQUELIN on 06/14/17 1005 COPY TO: RODNEY SHIPMAN MD CT BRAIN WO [facility] [address] [address] Patient Name: MIGUEL FONTENOT MR #: [id number] : 1935 Age/Sex: 82/F Req #: [id number] Adm Physician: Ordered by: PATRICK DAMON MD Report #: [id number] Location: ER Room/Bed: Procedure: [id number] CT/CT BRAIN WO Exam Date: 06/13/17 Exam Time: 1217 REPORT STATUS: Signed EXAMINATION: Head CT HISTORY: Evaluate for stroke, right-sided weakness COMPARISON: Head CT of 05/15/2017 TECHNIQUE: Multidetector axial images were obtained without contrast from the foramen magnum to the vertex . The images were reconstructed using brain and bone algorithms. Thin section brain images were reformatted into coronal and sagittal planes. Intravenous contrast: N one. Motion/streaking artifact limits the evaluation of the skull base and po sterior cranial fossa. FINDINGS: Parenchyma: 1. Unchanged m ild chronic microvascular ischemic changes. Otherwise no abnormal density. 2 . No mass or hemorrhage. No CT evidence of acute territorial vascular insult. Extra-axial spaces:No abnormal density. No extra-axial fluid col lections Brain volume: Mild generalized brain volume loss Ventri cles: No hydrocephalus or displacement. Arteries: No density suggestive of thrombus. Dural sinuses: No abnormal density. Extra-axial sp aces: No abnormal density. Foramen magnum: No mass, Chiari malformation, or basilar invagination. Sella: No obvious mass. Paranasal/mas toid sinuses: Imaged portions unremarkable. Skull/Scalp: No lytic or lissy stic lesions. No fractures. IMPRESSION: 1. No acute intracranial he morrhage or cortical infarct. 2. Unchanged mild chronic microvascular isch emic changes and volume loss compare to head CT on 05/15/2017. Signed by: Dr. Cezar Rosario M.D. on 06/13/2017 1:17 PM Dictated By: CEZAR ROSARIO MD 16 Transcribed By: MARY KATE SHAH on 06/13/171316 COPY TO: PATRICK DAMON MD CT BRAIN WO [place] [address] Patient Name: MIGUEL FONTENOT MR #: [id number] : 1935 Age/Sex: 81/F Req #: [id number] Adm Physician: Ordered by: PATRICK DAMON MD Report #: [id number] Location: ER Room/Bed: Procedure: [id number] CT/CT BRAIN WO Exam Date: Exam Time: REPORT STATUS: Signed Exam: He ad CT without contrast History: Right hand weakness Comparison studies: Pr evious head CT of 07/05/2013 is unavailable on the PACS for comparison the time of dictation. Technique: Axial images were obtained from the skull base to the vertex. Coronal and sagittal images reconstructed from the axial data. Intravenous contrast: None Findings: Scalp: No abnormalities. Bone s: No fractures, blastic or lytic lesions. Brain sulci: Mild to moderately prominent. Ventricles: Mild to moderate compensatory dilatation. No hydrocepha mayra. Extra-axial spaces: No masses, no fluid collection. Parenchyma: No mass, acute hemorrhage or acute or chronic cortical vascular insults. A few scattered subtle hypodensities in the supratentorial white matter are nonspec ific but most compatible with chronic small vessel ischemic changes. Sellar/guzman prasellar region: No abnormalities. Craniocervical junction: Patent foramen magnum. No Chiari one malformation. Incidental findings: Atherosclerotic calcifications in the carotid siphons and intradural vertebral arteries. IMPRESSION: No acute intracranial abnormalities. Chronic findings: 1. Mild to moderate generalized volume loss. 2. Mild chronic microvascular ischemic changes. Signed by: Dr. Atilio Abarca M.D. on 05/15/2017 3:57 PM Dictated By: ATILIO ABARCA MD 1557 Transcribed By: YAQUELIN on 05/15/17 0757 COPY TO: PATRICK DAMON MD
--- NOTE | 2020-01-27 11:15 | NUR ---
rec'd pt in rm7 with c/o "stroke like symptoms". placed on the monitor. labs drawn. ekg done
[2020-01-27] MEDS ORDERED: SODIUM CHLORIDE FLUSH 10 ML SYR INJ PRN (12:00)
[2020-01-27 12:11] LABS: BASOPHILS % 0.6 % (0.0-1.0); EOSINOPHILS # (AUTO) 0.2 (0.0-0.4); EOSINOPHILS % 4.5 % (0.0-6.0); HEMATOCRIT 53.1 % (34.2-44.1); HEMOGLOBIN 16.5 g/dL (12.0-16.0); LYMPHOCYTES # (AUTO) 0.8 (1.0-3.2); LYMPHOCYTES % 14.4 % (18.0-39.1); MEAN CORPUSCULAR HEMOGLOBIN 29.9 pg (28-32); MEAN CORPUSCULAR HGB CONC 31.1 g/dL (31-35); MEAN CORPUSCULAR VOLUME 96.2 fL (81-99); MONOCYTES # (AUTO) 0.6 (0.2-0.8); MONOCYTES % 11.2 % (4.4-11.3); NEUTROPHILS # (AUTO) 3.7 (2.1-6.9); NEUTROPHILS % 69.1 % (38.7-80.0); PLATELET COUNT 87 x10e3/uL (140-360); RED BLOOD COUNT 5.52 x10e6/uL (3.6-5.1); RED CELL DISTRIBUTION WIDTH 13.7 % (11.7-14.4)
--- NOTE | 2020-01-27 12:15 | NUR ---
LAB JUST CALLED TO STATE BLOOD ALL HEMOLYZED EXCEPT PURPLE TOP. PRIMARY NURSE NOTIFIED.
--- NOTE | 2020-01-27 12:20 | NUR ---
marking machine tender in rm with pt to re-draw.
--- NOTE | 2020-01-27 12:56 | NUR ---
pt informed the transportation worker that '" i have an inoperable brain tumor " . dr an informed
[2020-01-27 12:57] LABS: ALBUMIN 2.8 g/dL (3.5-5.0); ALBUMIN/GLOBULIN RATIO 0.7 (0.8-2.0); ANION GAP 16.3 mmol/L (8-16); CALCIUM 10.9 mg/dL (8.4-10.2); CREATININE, SERUM 7.08 mg/dL (0.57-1.11); MAGNESIUM 1.9 MG/DL (1.3-2.1); POTASSIUM 4.3 mmol/L (3.5-5.1)
[2020-01-27 13:04] LABS: CREATINE KINASE MB 1.3 ng/mL (0-5.0)
--- NOTE | 2020-01-27 13:47 | Diagnostic Imaging Report ---
EXAMINATION: CHEST SINGLE (PORTABLE) INDICATION: tia COMPARISON: Chest radiograph 10/05/2019. FINDINGS: TUBES and LINES: None. LUNGS: Lungs are well inflated. Calcified granulomas in the right lung. Mild patchy left basilar opacity, likely atelectasis. No evidence of lobar consolidation or pulmonary edema. PLEURA: No pleural effusion or pneumothorax. HEART AND MEDIASTINUM: The cardiomediastinal silhouette is unremarkable. There are atherosclerotic calcifications within the aorta. BONES AND SOFT TISSUES: No acute osseous lesion. Soft tissues are unremarkable. UPPER ABDOMEN: No free air under the diaphragm. IMPRESSION: Mild patchy left basilar opacity, likely atelectasis. Infection is possible in the appropriate clinical setting. Signed by: Dr. Polo Floyd MD on 01/27/2020 1:44 PM
--- NOTE | 2020-01-27 13:47 | Diagnostic Imaging Report ---
History:Weakness in right arm. Comparison studies:CT head 10/05/2019 Technique: Axial images were obtained from the skull base to the vertex. Coronal and sagittal images reconstructed from the axial data. Intravenous contrast: None Dose modulation, iterative reconstruction, and/or weight based adjustment of the mA/kV was utilized to reduce the radiation dose to as low as reasonably achievable. Findings: Scalp/skull: No abnormalities. Extra-axial spaces: No masses. No fluid collections. Brain sulci: Mildly prominent. Ventricles: Mild compensatory dilatation. No hydrocephalus. Parenchyma: Subcentimeter hypodensity with associated volume loss at the right frontal deep white matter, not seen on previous exam, secondary to chronic lacunar infarct. Other small hypodensities in the supratentorial white matter are small vessel ischemic changes. No masses, hemorrhage, acute or chronic cortical vascular insults. Sellar/suprasellar region: No abnormalities. Craniocervical junction: Patent foramen magnum. No Chiari one malformation. Incidental findings: Atherosclerotic calcifications in the carotid siphons and vertebral arteries . Impression: No acute abnormalities. Chronic findings: 1. Mild generalized volume loss. 2. Mild supratentorial white matter small vessel ischemic changes. 3. Chronic lacunar infarct at the left frontal centrum semiovale, not seen on previous exam. Signed by: DR Severiano Weeks M.D. on 01/27/2020 1:44 PM
--- NOTE | 2020-01-27 14:38 | Emergency Department Note ---
History of Present Illnes History of Present Illness Chief Complaint: rue weakness History of Present Illness This is a 84 year old female. was doing well prior to this. 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 History limited by: condition of the patient (normal) Onset (how long ago): day(s) (1) Location: rue Quality: weakness Radiation: non-radiation Severity: moderate Onset quality: sudden Timing of current episode: intermittent Progression: resolved Context: recent illness, recent surgery, recent immobilization, recent travel, trauma/injury, new medications, hx of DVT/PE, non-compliance w/ medications Relieving factors: none Exacerbating factors: none Associated symptoms: weakness Treatments prior to arrival: none Past Medical/Family History Physician Review I have reviewed the patient's past medical and family history. Any updates have been documented here. Past Medical History Recent Fever: No Clinical Suspicion of Infectio: No New/Unexplained Change in Ment: No Past Medical History: Hypertension, TIA, Hypothyroidism, UTI's, ESRD, Anemia, Hyperlipedemia, Chronic Kidney Disease, Osteoarthritis Other Medical History: PERITONEAL DIALYSIS Past Surgical History: Appendectomy, Hysterectomy Other Surgery: PERITONEAL DIALYSIS ACCESS CATARACT Social History Smoking Cessation: Never Smoker Counseling Performed: No Alcohol Use: None Any Illegal Drug Use: No TB Exposure/Symptoms: No Physically hurt or threatened: No Other Last Tetanus: UNKNOWN Any Pre-Existing Lines (PICC,: No Is patient up to date on immun: Yes Last Flu: utd Last Pneumovax: utd Review of Systems Review of Systems Constitutional: no symptoms EENTM: no symptoms Cardiovascular: no symptoms Respiratory: no symptoms Gastrointestinal: no symptoms Genitourinary: no symptoms Musculoskeletal: as per HPI Neurological: as per HPI Psychological: no symptoms Endocrine: no symptoms Hematological/Lymphatic: no symptoms Review of other systems All other systems reviewed and negative. Physical Exam Related Data Allergies: Coded Allergies: lansoprazole (Verified Allergy, Intermediate, ITCHING, 08/21/18) Triage Vital Signs Vital Signs Date Time Temp Pulse Resp B/P (MAP) Pulse Ox O2 Delivery O2 Flow Rate FiO2 01/27/20 11:15 98.4 66 18 144/56 100 Vital signs reviewed: Yes Physical Exam CONSTITUTIONAL Constitutional: well-developed, well-nourished HENT HENT: normocephalic, atraumatic, oropharynx clear/moist, nose normal HENT L/R: left ext ear normal, right ext ear normal EYES Eyes: PERRL, conjunctivae normal NECK Neck: ROM normal PULMONARY Pulmonary: effort normal, breath sounds normal CARDIOVASCULAR Cardiovascular: regular rhythm, heart sounds normal, capillary refill normal, normal rate GASTROINTESTINAL Abdominal: soft, nontender, bowel sounds normal GENITOURINARY Genitourinary: exam deferred SKIN Skin: warm, dry MUSCULOSKELETAL Musculoskeletal: ROM normal NEUROLOGICAL Neurological: alert, oriented x 3, no gross motor or sensory deficits PSYCHOLOGICAL Psychological: mood/affect normal, judgement normal Results Laboratory Result Diagram: 01/27/20 1155 01/27/20 1230 Laboratory Laboratory Tests Test 01/27/20 12:30 01/27/20 11:55 Sodium Level 141 mmol/L (136-145) Potassium Level 4.3 mmol/L (3.5-5.1) Chloride Level 110 mmol/L (98-107) Carbon Dioxide Level 19 mmol/L (22-29) Anion Gap 16.3 mmol/L (8-16) Blood Urea Nitrogen 34 mg/dL (7-26) Creatinine 7.08 mg/dL (0.57-1.11) Estimat Glomerular Filtration Rate 6 ML/MIN (60-) BUN/Creatinine Ratio 5 (6-25) Glucose Level 108 mg/dL (74-118) Calcium Level 10.9 mg/dL (8.4-10.2) Magnesium Level 1.9 MG/DL (1.3-2.1) Total Bilirubin 0.3 mg/dL (0.2-1.2) Aspartate Amino Transf (AST/SGOT) 14 IU/L (5-34) Alanine Aminotransferase (ALT/SGPT) 15 IU/L (0-55) Alkaline Phosphatase 95 IU/L (40-150) Creatine Kinase 36 IU/L (29-168) Creatine Kinase MB 1.30 ng/mL (0-5.0) Troponin I 0.496 ng/mL (0-0.300) Total Protein 6.7 g/dL (6.5-8.1) Albumin 2.8 g/dL (3.5-5.0) Globulin 3.9 g/dL (2.3-3.5) Albumin/Globulin Ratio 0.7 (0.8-2.0) White Blood Count 5.35 x10e3/uL (4.8-10.8) Red Blood Count 5.52 x10e6/uL (3.6-5.1) Hemoglobin 16.5 g/dL (12.0-16.0) Hematocrit 53.1 % (34.2-44.1) Mean Corpuscular Volume 96.2 fL (81-99) Mean Corpuscular Hemoglobin 29.9 pg (28-32) Mean Corpuscular Hemoglobin Concent 31.1 g/dL (31-35) Red Cell Distribution Width 13.7 % (11.7-14.4) Platelet Count 87 x10e3/uL (140-360) Neutrophils (%) (Auto) 69.1 % (38.7-80.0) Lymphocytes (%) (Auto) 14.4 % (18.0-39.1) Monocytes (%) (Auto) 11.2 % (4.4-11.3) Eosinophils (%) (Auto) 4.5 % (0.0-6.0) Basophils (%) (Auto) 0.6 % (0.0-1.0) Neutrophils # (Auto) 3.7 (2.1-6.9) Lymphocytes # (Auto) 0.8 (1.0-3.2) Monocytes # (Auto) 0.6 (0.2-0.8) Eosinophils # (Auto) 0.2 (0.0-0.4) Basophils # (Auto) 0.0 (0.0-0.1) Absolute Immature Granulocyte (auto 0.01 x10e3/uL (0-0.1) Lab results reviewed: Yes Imaging Imaging results reviewed: Yes (cxr left atelectasis) Diagnostics Tests Diagnostic test(s) reviewed: Yes (ekg= nsr, lad, poor r wave progression anterior/inerior/lateral leads, hr = 72, normal st segments/ t waves) Critical Care Time Subsequent provider I assumed direction of critical care for this patient from another provider of my specialty. Assessment & Plan Reassessment Reassessment spoke to dr katlyn miranda at 1230pm and agreed to see pt in office if there's no indiction for pt to be admitted Assessment & Plan Final Impression: (1) TRANSIENT CEREBRAL ISCHEMIC ATTACK, UNSPECIFIED Assessment & Plan additional dx crf(pt is on peritoneal dialysis). continue aspirin and clopidogrel. follow up with dr potts -neurologist- (cell [phone]. office [phone]) Depart Disposition: HOME, SELF-CARE Last Vital Signs Date Time Temp Pulse Resp B/P (MAP) Pulse Ox O2 Delivery O2 Flow Rate FiO2 01/27/20 12:30 63 16 149/60 98 01/27/20 11:15 98.4 Home Meds Reported Medications Sevelamer Carbonate (RENVELA) 0.8 Gm Powd.pack 11/12/18 Cinacalcet Hcl (SENSIPAR) 30 Mg Tablet, 30 MG PO DAILY, #30 TAB 11/12/18 Pantoprazole Sodium* (PROTONIX) 40 Mg Tablet.dr, 40 MG PO DAILY 08/21/18 Terazosin Hcl (TERAZOSIN HCL) 1 Mg Capsule, 2 MG PO HS, #30 CAP 05/15/18 Fexofenadine Hcl (SADIQ ALLERGY) 180 Mg Tablet, 180 MG PO PRN PRN for ALLERGY 03/31/14 Aspirin (ASPIR 81) 81 Mg Tablet.dr, 81 MG PO HS 03/31/14 Atorvastatin Calcium (ATORVASTATIN CALCIUM) 10 Mg Tablet, 20 MG PO HS 05/13/13 Metoprolol Succinate (METOPROLOL SUCCINATE) 50 Mg Tab.er.24h, 50 MG PO HS 05/13/13 Levothyroxine Sodium (LEVOTHROID) 75 Mcg Tablet, 75 MCG PO DAILY 05/13/13 Amlodipine Besylate (AMLODIPINE BESYLATE) 5 Mg Tablet, 5 MG PO DAILY 05/13/13 Medications in the ED Sodium Chloride 10 ml PRN PRN INJ IV SITE FLUSH; Start 01/27/20 at 12:00; Stop 02/26/20 at 11:59 VADIM MUNOZ January 27, 2020 14:38
[2020-01-27 15:02] VITALS: BP 149/66
== END 2020-01-27 15:07 | disposition home or self-care (01) ==
LOC: ER 10:59
DX: R53.1 Weakness (principal); G45.9 Transient cerebral ischemic attack, unspecified; I12.0 Hypertensive chronic kidney disease with stage 5 chronic kidney disease or end stage renal disease; E11.22 Type 2 diabetes mellitus with diabetic chronic kidney disease; N18.6 End stage renal disease; Z99.2 Dependence on renal dialysis; Z79.84 Long term (current) use of oral hypoglycemic drugs
CPT/HCPCS: 36415; 70450; 71045; 80053; 82550; 82553; 83735; 84484; 85025; 93005; 99284

== ENCOUNTER 2020-01-28 10:50 | Observation (INO) | payer MEDICARE, OTHER ==
[~2020-01-28] VITALS: Ht 162.6 cm; Wt 51.3 kg
--- OUTSIDE RECORDS SUMMARY | 2020-01-28 10:54 | XMS REPORT | Continuity of Care Document ---
Author Author [employer], MIGUEL Wright Organization [employer] Address Unknown Phone Unavailable Care Team Providers Care Mimeographer Name Role Phone Data Storage Group Information Exchange Unavailable Un available Problems Problem Status Onset Date Classification Date Reported Comments Source Cervicalgia 08/18/2018 03/01/2019 [facility] [place], [facility] [place] CERVICAL Active 05/11/2018 [facility] [place] UNK Active 0 10/18/2016 [facility] Z12.31 - ENCNTR SCREEN MAMMOGRAM FOR MA Active 07/30/2015 [facility] [place] 585.4 Active 03/04/2015 [place] 585.2 Active 07/30/2014 [facility] Hypothyroidism Active 01/03/2014 [facility] Essential [...] disease) Active Problem 05/2020 Castillo Souza 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 Active Problem 05/2020 Castillo Souza Rheumatoid arthritis of multiple sites w [facility] rheumatoid factor Active Prob malvin 12/07/2019 Castillo Harley Muscle spasm Active Problem 12/07/2019 Castillo Souza Osteopenia of multiple sites A ctive Problem 05/2020 Castillo Souza Long-term (current) use of other medicat ions - High Risk Active Prob malvin 07/23/2015 Castillo Souza Unspecified vitamin D deficiency Active Problem Castillo Souza RENAL INSUFFICIENCY Active Problem 07/23/2015 Castillo oSuza Osteoporosis, postmenopausal A ctive Problem Castillo Souza Cramp of limb Active Problem 07/23/2015 Castillo Souza Osteoarthrosis, multiple sites Active Problem Castillo Souza Rheumatoid arthritis Active Problem 07/23/2015 Castillo Souza Osteopenia Active Problem 09/05/2014 Castillo Souza Age related osteoporosis Active Diagnosis 03/16/2016 Castillo Souza Trigger finger of left hand, unspecified finger Active Diagnosis 09/15/2019 Castillo Souza Gastroesophageal reflux disease (disorder) Active Problem 07/22/2019 [facility] [place],[facility] [place] [facility] [place] Anemia of chronic renal failure (disorder) Active Problem 07/22/2019 [facility] [place],[facility] [place] [facility] [place] Diabetes mellitus (disorder) A ctive Problem [facility] [place] [place] [facility] [place] Hearing loss (finding) Active Problem 07/22/2019 [facility] [place] [place] [facility] [place] Hypertensive disorder, systemic arterial (disorder) Active Problem 07/22/2019 [facility] [place],[facility] [place] [facility] [place] Hypercholesterolemia (disorder) Active Problem [facility] [place] [place] [facility] [place] Hypertriglyceridemia (disorder) Active Problem [facility] [place] [place] [facility] [place] Hypothyroidism (disorder) Acti ve Problem [facility] [place] [place] [facility] [place] Renal failure syndrome (disorder) Active Problem [facility] [place] [place] [facility] [place] Incisional hernia of anterior abdominal wall (disorder ) Active Problem 07/22/2019 [facility] [place], [place],[facility] [place] [facility] [place] Anxiety (finding) Active Problem 07/22/2019 [facility] [place] [place] [facility] [place] Weakness 01/29/2019 [facility] [place] Abnormal posture 03/01/2019 [facility] [place] Encounter for screening mammogram for ma lignant neoplasm of breast 07/22/2019 [facility] [place] Spondylolisthesis, cervical region [facility] [place] Muscle weakness (generalized) 03/01/2019 [facility] [place] CHRONIC KIDNEY DISEASE, STAGE 4 (SEVERE) Active [facility] END STAGE RENAL DISEASE Active [facility] Medications Medication Details Route Status Patient Instructions Ordering Provider Order Date Source Vitamin D (Ergocalciferol) 1 c apsule Orally Active 59978 UNIT Orally once a week [place] 11/13/2018 Castillo Souza Prolia as directed Subcutaneous Active 60 MG/ML Subcutaneous q 6 months [place] 10/05/2018 Castillo Souza Prolia 60MG SQ Subcutaneous Active 60 MG/ML Subcutaneous Q 6 MONTHS [facility] 08/31/2017 Castillo Souza Prolia 60MG SQ Subcutaneous Active 60 MG/ML Subcutaneous [facility] 06/22/2017 Castillo Souza Voltaren Gel apply to affected area Transdermal Active 1% Transdermal Four times a day [place] 04/05/2017 Castillo Souza Vitamin D (Ergocalciferol) 1 c apsule Orally Active 50,000 Orally ONCE A WEEK [place] 12/20/2016 Castillo Souza Oxycodone Hydrochloride 5 MG Oral Tablet 5 mg, Route: PO, Drug form: TAB, ONCE, Dosing Weight 59.545, kg, PRN Pain Score 4-6, Start date: 11/04/16 11:10:00 CHECKOUT OPERATOR Inactive 11/04/2016 [facility] labetalol (ANES) Route: IV, ug form: INJ, ONCE, Stop date: 11/04/16 10:12:00 CHECKOUT OPERATOR Inactive 11/04/2016 [facility] ePHEDrine (ANES) Route: IV, ug form: INJ, ONCE, Stop date: 11/04/16 9:58:00 CHECKOUT OPERATOR Inactive 11/04/2016 [facility] famotidine (ANES) Route: IV, D rug form: INJ, ONCE, Stop date: 11/04/16 9:58:00 CHECKOUT OPERATOR Inactive 11/04/2016 [facility] ondansetron (ANES) Route: IV, Drug form: INJ, ONCE, Stop date: 11/04/16 9:58:00 CHECKOUT OPERATOR Inactive 11/04/2016 [facility] fentaNYL (ANES) Route: IV, Kushal g form: INJ, ONCE, Stop date: 11/04/16 9:58:00 CHECKOUT OPERATOR Inactive 11/04/2016 [facility] propofol (ANES) Route: IV, Kushal g form: INJ, ONCE, Stop date: 11/04/16 9:58:00 CHECKOUT OPERATOR Inactive 11/04/2016 [facility] lidocaine (ANES) Route: IV, Dr ug form: INJ, ONCE, Stop date: 11/04/16 9:58:00 CHECKOUT OPERATOR Inactive 11/04/2016 [facility] rocuronium (ANES) Route: IV, D rug form: INJ, ONCE, Stop date: 11/04/16 9:58:00 CHECKOUT OPERATOR Inactive 11/04/2016 [facility] neostigmine (ANES) Route: IV, Drug form: INJ, ONCE, Stop date: 11/04/16 9:58:00 CHECKOUT OPERATOR Inactive 11/04/2016 [facility] glycopyrrolate (ANES) Route: I V, Drug form: INJ, ONCE, Stop date: 11/04/16 9:58:00 CHECKOUT OPERATOR Inactive 11/04/2016 [facility] acetaminophen-codeine #3 2 tab , Route: PO, Drug Form: TAB, Dosing Weight 59.545, kg, Q4H, PRN Pain Score 4-6, Start date: 11/04/16 9:53:00 CHECKOUT OPERATOR, Duration: 30 day, Stop date: 12/04/16 9:52:00 CDT Inactive 11/04/2016 [facility] Morphine 2 mg, Route: IVP, Q3H , Dosing Weight 59.545, kg, PRN Pain Score 1-3, Start date: 11/04/16 9:53:00 CHECKOUT OPERATOR, Duration: 30 day, Stop date: 12/04/16 9:52:00 CDT Inactive 11/04/2016 [facility] vancomycin (ANES) (ANES) Route : IV, Drug form: INJ, Start date: 11/04/16 9:19:00 CHECKOUT OPERATOR, Stop date: 11/04/16 10:19:00 CHECKOUT OPERATOR Inactive 11/04/2016 [facility] ceFAZolin (ANES) (ANES) Route: IV, Drug form: INJ, Start date: 11/04/16 9:19:00 CHECKOUT OPERATOR, Stop date: 11/04/16 10:19:00 CHECKOUT OPERATOR Inactive 11/04/2016 [facility] sodium chloride 0.9% 500 ml INJ (ANES) Route: IV, Total Volume: 500, Start date: 11/04/16 9:10:00 CHECKOUT OPERATOR, Stop date: 11/04/16 10:10:00 CHECKOUT OPERATOR Inactive 11/04/2016 [facility] sodium chloride 0.9% 500 ml INJ 500 mL 500 mL, Rate: 40 ml/hr, Infuse over: 12.5 hr, Route: IV, Dosing Weight 59.545 kg, Total Volume: 500, Start date: 11/04/16 8:04:00 CHECKOUT OPERATOR, Duration: 1 day, Stop date: 11/05/16 8:03:00 CHECKOUT OPERATOR Inactive 11/04/2016 [facility] Lactated Ringers 1,000 mL 1,00 0 mL, Rate: 40 ml/hr, Infuse over: 25 hr, Route: IV, Dosing Weight 59.545 kg, Total Volume: 1,000, Start date: 11/04/16 8:03:00 CHECKOUT OPERATOR, Duration: 1 day, Stop date: 11/05/16 8:02:00 CHECKOUT OPERATOR Inactive 11/04/2016 [facility] Vitamin D3 50,000 intl units oral capsule 50,000 IntlUnit = 1 cap, PO, qWeek, # 12 cap, 0 Refill(s) Active 10/28/2016 [facility] glimepiride 1 mg oral tablet 1 mg = 1 tab, PO, Daily, 0 Refill(s) Active 10/28/2016 [facility] Ancef Notes: Same as: Ancef No Longer Active 10/28/2016 [facility] Vancomycin 2001 mg: infuse ov er 2.5 hours MEDICATION WASTE Product Size: 1000 mg Product Wasted: ___ mg No Longer Active 10/28/2016 [facility] Famotidine 10 MG Oral Tablet 1 0 mg = 1 tab, PO, BID, 0 Refill(s) Active 10/28/2016 [facility] Vitamin D (Ergocalciferol) 1 c apsule Orally Active 73358 UNIT Orally Once a week [place] 09/10/2016 Castillo Burrowser PredniSONE 2 tablets with food or milk Orally Active 5 MG Orally Once a day [place] 02/09/2016 Castillo Souza Nexium 1 capsule Orally Active 40 MG Orally Once a day [place] 02/09/2016 Castillo Souza propofol (ANES) Route: IV, Kushal g form: INJ, ONCE, Stop date: 11/24/15 9:58:00 Inactiv e 11/24/2015 [facility] lidocaine (ANES) Route: IV, Dr ug form: INJ, ONCE, Stop date: 11/24/15 9:58:00 Inactiv e 11/24/2015 [facility] fentaNYL (ANES) Route: IV, Kushal g form: INJ, ONCE, Stop date: 11/24/15 9:53:00 Inactiv e 11/24/2015 [facility] midazolam (ANES) Route: IV, Dr ug form: SOLN, ONCE, Stop date: 11/24/15 9:53:00 Inactiv e 11/24/2015 [facility] ceFAZolin (ANES) Route: IV, Dr ug form: INJ, ONCE, Stop date: 11/24/15 9:53:00 Inactiv e 11/24/2015 [facility] Oxycodone Notes: (Same as: Odilia icodone) Inactive 11/24/2015 [facility] Flumazenil Notes: (Same as: Ro mazicon) Inactive 11/24/2015 [facility] Meperidine Notes: (Same As: De merol) Inactive 11/24/2015 [facility] Naloxone Notes: Same as Narcan Inactive 11/24/2015 [facility] Fentanyl Notes: (Same as: Subl imaze) Preservative free. Inactive 11/24/2015 [facility] Hydromorphone 0.5 mg, 0.5 mL, Route: IVP, Drug form: INJ, Q5Min, Dosing Weight 57.784, kg, PRN Pain Score 7-10, Start date: 11/24/15 9:51:00, Duration: 4 doses or times, Stop date: Limited # of times Inactive 11/24/2015 [facility] Ondansetron Notes: (Same as: Carolann ardon) MEDICATION WASTE Product Size: 4 mg Product Wasted: ___ mg Inactive 11/24/2015 [facility] Hydralazine Notes: (Same as: A presoline) Push over 5 minutes Inactive 11/24/2015 [facility] ondansetron (ANES) Route: IV, Drug form: INJ, ONCE, Stop date: 11/24/15 9:43:00 Inactiv e 11/24/2015 [facility] vancomycin (ANES) (ANES) Route : IV, Drug form: INJ, Start date: 11/24/15 9:11:00, Stop date: 11/24/15 10:11:00 Inactive 11/24/2015 [facility] Sodium Chloride 0.154 MEQ/ML Injectable Solution 500 mL, Rate: 25 ml/hr, Infuse over: 20 hr, Route: IV, Dosing Weight 57.784 kg, Total Volume: 500, Start date: 11/24/15 9:09:00, Duration: 30 day, Stop date: 12/24/15 9:08:00 Inactive 11/24/2015 [facility] Sodium Chloride 0.9% IV (ANES) (ANES) Route: IV, Total Volume: 500, Start date: 11/24/15 9:08:00, Stop date: 11/24/15 10:08:00 Inactive 11/24/2015 [facility] Calcium Chloride 0.0014 MEQ/ML / Potassi um Chloride 0.004 MEQ/ML / Sodium Chloride 0.103 MEQ/ML / Sodium Lactate 0.028 MEQ/ML Injectable Solution 1,000 mL, Rate: 25 ml/hr, Infuse over: 4 0 hr, Route: IV, Dosing Weight 57.784 kg, Total Volume: 1,000, Start date: 11/24/15 9:08:00, Duration: 30 day, Stop date: 12/24/15 9:07:00 Inactive 11/24/2015 [facility] Vancomycin 2001 mg: infuse ov er 2.5 hours MEDICATION WASTE Product Size: 1000 mg Product Wasted: ___ mg No Longer Active 11/17/2015 [facility] Ancef Notes: Same as: Ancef No Longer Active 11/17/2015 [facility] Hydralazine 10 mg, Route: IVP, Q20Min, Dosing Weight 60, kg, PRN Elevated BP, Start date: 03/24/15 13:35:00, Duration: 2 doses or times, Stop date: Limited # of times Inactive 03/24/2015 [facility] Glycopyrrolate 0.2 mg, Route: IVP, Q5Min, Dosing Weight 60, kg, PRN Bradycardia, Start date: 03/24/15 13:35:00, Duration: 3 doses or times, Stop date: Limited # of times Inactive 03/24/2015 [facility] Ondansetron 4 mg, Route: IVP, ONCE, Dosing Weight 60, kg, PRN Nausea & Vomiting, Start date: 03/24/15 13:35:00 Inactive 03/24/2015 [facility] Flumazenil 0.2 mg, Route: IVP, PRN, Dosing Weight 60, kg, PRN Benzodiazepine Reversal, Initial dose, Start date: 03/24/15 13:35:00, Duration: 30 day, Stop date: 04/23/15 13:34:00 Inactive 03/24/2015 [facility] Meperidine 12.5 mg, Route: IVP , Q30Min, Dosing Weight 60, kg, PRN Other -See Comment, For shivering, Start date: 03/24/15 13:35:00, Duration: 2 doses or times, Stop date: Limited # of times Inactive 03/24/2015 [facility] Promethazine 6.25 mg, Route: I VPB, ONCE, Dosing Weight 60, kg, PRN Nausea & Vomiting, Start date: 03/24/15 13:35:00 Inactive 03/24/2015 [facility] Naloxone 0.04 mg, Route: IVP, Q2MIN, Dosing Weight 60, kg, PRN Narcotic Reversal, Start date: 03/24/15 13:35:00, Duration: 8 doses or times, Stop date: Limited # of times Inactive 03/24/2015 [facility] Morphine 4 mg, Route: IVP, Q5M in, Dosing Weight 60, kg, PRN Pain Score 7-10, Start date: 03/24/15 13:35:00, Duration: 3 doses or times, Stop date: Limited # of times Inactive 03/24/2015 [facility] Hydromorphone 0.5 mg, Route: I FACILITY DESIGNER, Q5Min, Dosing Weight 60, kg, PRN Pain Score 7-10, Start date: 03/24/15 13:35:00, Duration: 4 doses or times, Stop date: Limited # of times Inactive 03/24/2015 [facility] Diphenhydramine 12.5 mg, Route : IVP, Drug form: INJ, Q6H, Dosing Weight 60, kg, PRN Itching, Start date: 03/24/15 13:35:00, Duration: 30 day, Stop date: 04/23/15 13:34:00 Inactive 03/24/2015 [facility] Fentanyl 25 microgram, Route: IVP, Q5Min, Dosing Weight 60, kg, PRN Pain Score 4-6, Start date: 03/24/15 13:35:00, Duration: 4 doses or times, Stop date: Limited # of times Inactive 03/24/2015 [facility] Ketorolac 4 days MEDICA TION WASTE Product Size: 30 mg Product Wasted: ___ mg Inactive 03/24/2015 [facility] Oxycodone 10 mg, Route: PO, Dr ug form: TAB, Q4H, Dosing Weight 60, kg, PRN Pain Score 7-10, Start date: 03/24/15 13:35:00, Duration: 30 day, Stop date: 04/23/15 13:34:00 Inactive 03/24/2015 [facility] Metoprolol 1 mg, Route: IVP, Q 5Min, Dosing Weight 60, kg, PRN Other -See Comment, Start date: 03/24/15 13:35:00, Duration: 5 doses or times, Stop date: Limited # of times Inactive 03/24/2015 [facility] acetaminophen-codeine #3 1 tab , Route: PO, Drug Form: TAB, Dosing Weight 60, kg, Q4H, PRN Pain Score 4-6, Start date: 03/24/15 13:01:00, Duration: 30 day, Stop date: 04/23/15 13:00:00 Inactive 03/24/2015 [facility] Morphine 2 mg, Route: IVP, Q3H , Dosing Weight 60, kg, PRN Pain Score 1-3, Start date: 03/24/15 13:01:00, Duration: 30 day, Stop date: 04/23/15 13:00:00 Inactive 03/24/2015 [facility] Ancef 2 gm, Route: IVPB, ONCE, Dosing Weight 60, kg, Start date: 03/24/15 11:43:00, Duration: 1 doses or times, Stop date: 03/24/15 11:43:00 Inactive 03/24/2015 [facility] Sodium Chloride 0.154 MEQ/ML Injectable Solution 500 mL, Rate: 25 ml/hr, Infuse over: 20 hr, Route: IV, Dosing Weight 60 kg, Total Volume: 500, Start date: 03/23/15 8:26:00, Duration: 2 day, Stop date: 03/25/15 8:25:00 No Longer Active 03/23/2015 [facility] Vancomycin Notes: TIME CRITICA L MEDICATION No Longer Active 03/17/2015 [facility] Atorvastatin Calcium 10 MG Oral Tablet [...] Orally Active 50,000 Orally ONCE A WEEK [facility] Castillo Souza Aspir-81 1 tablet Orally Active [...] Orally Once a day Ranjit Castillo Souza [place] 3 1 capsule Orally Active 1200 mg [...] Orally Once a day Ranjit Castillo Souza [place] 3 1 capsule Orally Active 1200 mg Orally Once a d ay Ozuna [facility] genie Souza Famotidine 1 tablet as needed Orally Active 10 MG Orally Twice a day Laith Souza Amlodipine Besylate 1/2 tablet Orally Active 5 MG Orally Once a day Laith Souza Prolia 60MG SQ Subcutaneous Active 60 MG/ML Subcutaneous Q 6 MONTHS [facility] Castillo Souza Cyanocobalamin 1 ml Injection Active 1000 MCG/ML Injection O nce a month Laith Souza Sodium Bicarbonate 1 tablet Orally Active 650 MG Orally twice a day Laith Souza Paroxetine HCl 1 tablet in the morning Orally Active 10 MG Orally Once a day Laith Souza Levothyroxine Sodium 1 tablet Orally Active 75 MCG Orally Once a day [place] Castillo Souza Ergocalciferol 1 capsule Orally Active 1000 mg Orally Once a d Laith Souza Metoprolol Tartrate 1 tablet Orally Active 50 MG Orally Once a day [place] Souza Aspir-81 1 tablet Orally Active 81 MG Orally Once a day [place] Farshad Souza Calcitriol 1 capsule Orally Active 0.25 MCG Or[facility] a [facility] Castillo Souza Tizanidine HCl 1 tablet as nee ded Orally Active 4 MG Orally Three times a day Laith Souza Vitamin B-12 15 ml Orally Active 1000 MCG/15ML Orally On ce a day Souza Castillo Souza Synthroid 1 tablet every morni ng on an empty stomach Orally Active 75 MCG Orally Once a day [facility] Castillo Souza Omeprazole 2 capsules Orally Active [...] Active 48 MG Orally Once a day [facility] genie Souza Atorvastatin Calcium 1 tablet Orally Active 10 MG Orally Once a day Souza Castillo Souza Fenofibrate 1 tablet Orally Active 48 MG Orally Once a day Souza Farshad Souza Aspirin 2 tablets Orally Active 81 MG Orally every nigh t [place] Farshad Souza Famotidine 1 tablet as needed [...] Castillo Souza Prolia 03/11/2016 completed Castillo Souza Influenza 05/22/2013 completed [facility] Zoster (Zostavax) completed [facility] Influenza completed [facility] Results Order Name Results Value Reference Range Date Interpretation Comments Source ELECTROLYTES Potassium Lvl 4.3 3.5 - 5.1 11/04/2016 [facility] BLOOD BANK RESULTS Antibody Scrn Negative (10/28/16 10:13 AM) 10/28/2016 [facility] BLOOD BANK RESULTS ABO/Rh A POS 10/28/2016 [facility] ELECTROLYTES AGAP 12.4 10.0 - 20.0 10/28/2016 [facility] ELECTROLYTES eGFR 12 10/28/2016 Result Comment: [...] should be multiplied by the estimated BMI. [facility] ELECTROLYTES BUN 36 7 - 22 10/28/2016 [facility] ELECTROLYTES Glucose Lvl 95 70 - 99 10/28/2016 [facility] ELECTROLYTES Creatinine Lvl 3.5 0 0.50 - 1.40 10/28/2016 [facility] ELECTROLYTES Calcium Lvl 9.1 8.5 - 10.5 10/28/2016 [facility] ELECTROLYTES CO2 21 24 - 32 10/28/2016 [facility] ELECTROLYTES Potassium Lvl 4.4 3.5 - 5.1 10/28/2016 [facility] ELECTROLYTES Chloride Lvl 112 95 - 109 10/28/2016 [facility] ELECTROLYTES Sodium Lvl 141 135 - 145 10/28/2016 [facility] HEMATOLOGY Lymphocytes 21.2 20.0 - 40.0 10/28/2016 [facility] HEMATOLOGY Basophils 1.5 0.0 - 1.0 10/28/2016 [facility] HEMATOLOGY Segs-Bands # 4.2 1.5 - 8.1 10/28/2016 [facility] HEMATOLOGY Eosinophils 3.9 0.0 - 4.0 10/28/2016 [facility] HEMATOLOGY Monocytes 7.5 2.0 - 12.0 10/28/2016 [facility] HEMATOLOGY Eosinophils # 0.2 0.0 - 0.5 10/28/2016 [facility] HEMATOLOGY Lymphocytes # 1.4 1.0 - 5.5 10/28/2016 [facility] HEMATOLOGY Monocytes # 0.5 0.0 - 0.8 10/28/2016 [facility] HEMATOLOGY Basophils # 0.1 0.0 - 0.2 10/28/2016 [facility] Segs 65.9 45.0 - 75.0 10/28/2016 [facility] INR 1.04 0.85 - 1.17 10/28/2016 [facility] PT 13.8 12.0 - 14.7 10/28/2016 [facility] PTT 30.0 22.9 - 35.8 10/28/2016 [facility] MPV 8.3 7.4 - 10.4 10/28/2016 [facility] MCHC 34.0 32.0 - 36.0 10/28/2016 [facility] RDW 13.5 11.5 - 14.5 10/28/2016 [facility] RBC 3.45 4.20 - 5.40 10/28/2016 [facility] Hct 30.5 36.0 - 48.0 10/28/2016 [facility] Hgb 10.4 12.0 - 16.0 10/28/2016 [facility] MCV 88.5 80.0 - 98.0 10/28/2016 [facility] MCH 30.1 27.0 - 31.0 10/28/2016 [facility] HEMATOLOGY Platelet 135 133 - 450 10/28/2016 [facility] HEMATOLOGY WBC 6.4 3.7 - 10.4 10/28/2016 [facility] ELECTROLYTES Potassium Lvl 5.0 3.5 - 5.1 11/24/2015 [facility] CHEM PANEL eGFR 18 11/17/2015 Result [...] should be multiplied by the estimated BMI. [facility] CHEM PANEL Calcium Lvl 7.9 8.5 - 10.5 11/17/2015 [facility] CHEM PANEL CO2 20 24 - 32 11/17/2015 [facility] CHEM PANEL Chloride Lvl 113 95 - 109 11/17/2015 [facility] CHEM PANEL Potassium Lvl 4.8 3.5 - 5.1 11/17/2015 [facility] CHEM PANEL Sodium Lvl 140 135 - 145 11/17/2015 [facility] CHEM PANEL Creatinine Lvl 2.45 0.50 - 1.40 11/17/2015 [facility] CHEM PANEL BUN 37 7 - 22 11/17/2015 [facility] CHEM PANEL Glucose Lvl 130 70 - 99 11/17/2015 [facility] CHEM PANEL AGAP 11.8 10.0 - 20.0 11/17/2015 [facility] HEMATOLOGY INR 1.15 0.85 - 1.17 11/17/2015 [facility] HEMATOLOGY PT 15.0 12.0 - 14.7 11/17/2015 [facility] HEMATOLOGY MCV 89.9 80.0 - 98.0 11/17/2015 [facility] HEMATOLOGY MPV 8.5 7.4 - 10.4 11/17/2015 [facility] MCHC 33.1 32.0 - 36.0 11/17/2015 [facility] HEMATOLOGY RDW 14.3 11.5 - 14.5 11/17/2015 [facility] MCH 29.7 27.0 - 31.0 11/17/2015 [facility] Platelet 158 133 - 450 11/17/2015 [facility] Hct 27.1 36.0 - 48.0 11/17/2015 [facility] HEMATOLOGY RBC 3.01 4.20 - 5.40 11/17/2015 [facility] HEMATOLOGY Hgb 9.0 12.0 - 16.0 11/17/2015 [facility] HEMATOLOGY WBC 5.6 3.7 - 10.4 11/17/2015 [facility] HEMATOLOGY PTT 27.1 22.9 - 35.8 11/17/2015 [facility] HEMATOLOGY Basophils # 0.1 0.0 - 0.2 11/17/2015 [facility] HEMATOLOGY Segs-Bands # 3.9 1.5 - 8.1 11/17/2015 [facility] HEMATOLOGY Eosinophils # 0.1 0.0 - 0.5 11/17/2015 [facility] HEMATOLOGY Lymphocytes # 1.1 1.0 - 5.5 11/17/2015 [facility] HEMATOLOGY Monocytes # 0.5 0.0 - 0.8 11/17/2015 [facility] Lymphocytes 18.8 20.0 - 40.0 11/17/2015 [facility] HEMATOLOGY Basophils 1.4 0.0 - 1.0 11/17/2015 [facility] Monocytes 8.0 2.0 - 12.0 11/17/2015 [facility] HEMATOLOGY Eosinophils 2.1 0.0 - 4.0 11/17/2015 [facility] HEMATOLOGY Segs 69.7 45.0 - 75.0 11/17/2015 [facility] CHEM PANEL Glucose Lvl 100 70 - 99 03/24/2015 [facility] ELECTROLYTES Potassium Lvl 5.4 3.5 - 5.1 03/24/2015 [facility] CHEM PANEL BUN 50 7 - 22 03/17/2015 [facility] CHEM PANEL eGFR 13 03/17/2015 Result [...] should be multiplied by the estimated BMI. [facility] CHEM PANEL Creatinine Lvl 3.3 0.5 - 1.4 03/17/2015 [facility] CHEM PANEL Sodium Lvl 140 135 - 145 03/17/2015 [facility] CHEM PANEL Glucose Lvl 106 70 - 99 03/17/2015 [facility] CHEM PANEL Potassium Lvl 4.7 3.5 - 5.1 03/17/2015 [facility] CHEM PANEL Chloride Lvl 109 95 - 109 03/17/2015 [facility] CHEM PANEL Calcium Lvl 9.2 8.5 - 10.5 03/17/2015 [facility] CHEM PANEL CO2 20 24 - 32 03/17/2015 [facility] CHEM PANEL AGAP 15.7 10.0 - 20.0 03/17/2015 [facility] HEMATOLOGY PTT 34.3 22.9 - 35.8 03/17/2015 [facility] HEMATOLOGY INR 1.16 0.85 - 1.17 03/17/2015 [facility] HEMATOLOGY PT 14.9 12.0 - 14.7 03/17/2015 [facility] HEMATOLOGY MPV 9.0 7.4 - 10.4 03/17/2015 [facility] HEMATOLOGY Platelet 158 133 - 450 03/17/2015 [facility] HEMATOLOGY Hct 27.7 36.0 - 48.0 03/17/2015 [facility] HEMATOLOGY MCV 87.9 80.0 - 98.0 03/17/2015 [facility] HEMATOLOGY RBC 3.15 4.20 - 5.40 03/17/2015 [facility] Hgb 9.3 12.0 - 16.0 03/17/2015 [facility] MCHC 33.7 32.0 - 36.0 03/17/2015 [facility] HEMATOLOGY RDW 14.0 11.5 - 14.5 03/17/2015 [facility] MCH 29.6 27.0 - 31.0 03/17/2015 [facility] HEMATOLOGY WBC 5.4 3.7 - 10.4 03/17/2015 [facility] HEMATOLOGY Lymphocytes # 1.2 1.0 - 5.5 03/17/2015 [facility] HEMATOLOGY Segs-Bands # 3.4 1.5 - 8.1 03/17/2015 [facility] HEMATOLOGY Basophils 1.4 0.0 - 1.0 03/17/2015 [facility] HEMATOLOGY Eosinophils 3.0 0.0 - 4.0 03/17/2015 [facility] HEMATOLOGY Basophils # 0.1 0.0 - 0.2 03/17/2015 [facility] HEMATOLOGY Monocytes # 0.6 0.0 - 0.8 03/17/2015 [facility] HEMATOLOGY Eosinophils # 0.2 0.0 - 0.5 03/17/2015 [facility] HEMATOLOGY Monocytes 10.9 2.0 - 12.0 03/17/2015 [facility] [facility] HEMATOLOGY Segs 62.7 45.0 - 75.0 03/17/2015 [facility] HEMATOLOGY Lymphocytes 22.0 20.0 - 40.0 03/17/2015 [facility] Pathology Reports No Data Provided for This Section Diagnostic Reports Report Value Date Source Breast Mammo Scrn MC incl CAD MA BILATERAL DIGITAL SCREENING MAMMOGRAM WITH CAD: 07/19/2019 CLINICAL: Screening/Screening. Current study was evaluated with a Computer Aided Detection (CAD) system. COMPARISON:Comparison is made to exams dated: 07/17/2018 mammogram, 07/16/2017 mammogram, 08/19/2015 mammogram - [facility], 06/26/2014 mammogram, 09/28/2013 mammogram, and 09/26/2012 mammogram - [facility]. TECHNIQUE: Mammographic views were obtained using digital [...] is recommended.(07/19/2020) This exam was interpreted at [id number] for Melody, SL 15. Professional services are provided by the [facility]. Kelley Del Rio M.D., ms/osito:07/20/2019 08:33:03 Installment Dealer(s): RT Celeste(R)(M), [facility] letter sent: BI-RADS 1/2 Dense Mammogram BI-RADS: 2 Benign 07/19/2019 [facility] Breast Mammo Scrn MC incl CAD MA BILATERAL DIGITAL SCREENING MAMMOGRAM WITH CAD: 07/17/2018 CLINICAL: Routine/Screening. Current study was evaluated with a Computer Aided Detection (CAD) system. COMPARISON:Comparison is made to exams dated: 07/16/2017 mammogram, 08/19/2015 mammogram - [facility], 06/26/2014 mammogram, 09/28/2013 mammogram, 09/26/2012 mammogram, and 09/17/2011 mammogram - [facility]. TECHNIQUE: Mammographic views were obtained using digital [...] is recommended.(07/18/2019) This exam was interpreted at [id number] for CHELSEA Sun. Professional services are provided by the [facility] Diagnostic Imaging. Deisy Vance M.D. ak/penrad:07/19/2018 10:59:26 Installment Dealer(s): RT Herminio(R)(M), [facility] letter sent: BI-RADS 1/2 Mammogram BI-RADS: [...] is appreciated IMPRESSION: Mild C4-C5 listhesis. 05/02/2018 [facility] Breast Mammo Scrn MC incl CAD MA BILATERAL DIGITAL SCREENING MAMMOGRAM WITH CAD: 07/16/2017 CLINICAL: /Z12.31 Encounter For Screening Mammogram For Malignant Neoplasm Of Breast. Current study was evaluated with a Computer Aided Detection (CAD) system. COMPARISON:Comparison is made to exams dated: 08/19/2015 mammogram - [facility], 06/26/2014 mammogram, 09/28/2013 mammogram, 09/26/2012 mammogram, and 09/17/2011 mammogram - [facility]. TECHNIQUE: Mammographic views were obtained using digital [...] screening mammogram is recommended.(07/17/2018) Wili bartlett/osito:07/19/2017 09:55:37 Installment Dealer(s): Tejal Lucio [facility] letter sent: BI-RADS 1/2 Dense Mammogram BI-RADS: 2 Benign 07/16/2017 [facility] Chest 2 views DX EXAM: XR CHES [...] significant change with compared with 03/17/2015. 03/03/2016 [facility] Digital Mammo Screening Mc MA - DIGITAL MAMMO SCREENING MC MA BILATERAL DIGITAL SCREENING MAMMOGRAM WITH CAD: 08/19/2015 CLINICAL: Routine. Current study was evaluated with a Computer Aided Detection (CAD) system. Comparison is made to exams dated: 06/26/2014 mammogram, 09/28/2013 mammogram, 09/26/2012 mammogram and 09/17/2011 mammogram - [facility]. The tissue of both breasts is heterogeneously [...] is recommended. Paul Vick M.D., cm/penrad:08/27/2015 11:51:17 Installment Dealer: Anna [place] RT(R)(M), [facility] This exam was dictated and interpreted by [id number] for [place]. letter sent: Normal exam Mammogram BI-RADS: 2 Benign 08/19/2015 [facility] [place] Chest 2 views DX PA and LATERA [...] Atherosclerosis. Coding: Chest 2 views CPT Code: 50119 SL: 13 Avni Vazquez M.D. 03/17/2015 [facility] Consultation Notes No Data Provided for [...] 17 11/04/2016 [facility] Rate 72 11/04/2016 [facility] Temperature Oral (F) 97.5 F 10/28/2016 [facility] Rate 54 10/28/2016 [facility] Height 162.56 cm 10/28/2016 [facility] Weight 59.545 10/28/2016 [facility] BMI Calculated 22.53 10/28/2016 [facility] Weight [...] 16 11/24/2015 [facility] Respitory Rate 14 11/24/2015 [facility] Temperature Oral (F) 97.9 F 11/17/2015 [facility] Heart Rate 61 11/17/2015 [facility] BMI Calculated 21.87 11/17/2015 [facility] Weight 57.784 11/17/2015 [facility] Height 162.56 cm 11/17/2015 [facility] Systolic (mm Hg) 142 03/24/2015 [facility] Diastolic (mm Hg) 49 03/24/2015 [facility] Systolic (mm Hg) 133 03/24/2015 [facility] Diastolic (mm Hg) 46 03/24/2015 [facility] Systolic (mm Hg) 142 03/24/2015 [facility] Diastolic (mm Hg) 45 03/24/2015 [facility] Respitory Rate 15 03/24/2015 [facility] Respitory Rate 19 03/24/2015 [facility] Respitory Rate 15 03/24/2015 [facility] Heart Rate 65 03/17/2015 [facility] Temperature Oral (F) 98.4 F 03/17/2015 [facility] Height 162.56 cm 03/17/2015 [facility] BMI Calculated 22.71 03/17/2015 [facility] Weight 60 0 03/17/2015 [facility] Weight 140 12/12/2014 Castillo Souza Height [...] ADM Date DC Date Status Source AUDIT [id number] 05/29/2013 05/29/2013 [facility] AUDIT [id number] 06/04/2013 06/04/2013 [facility] Sebastian CUTLER dakota: VANI SHIPMAN, Status: Pen, Time: 11:45 AM [id number] 06/07/20 13 06/04/2013 [facility] AUDIT [id number] 06/18/2013 06/18/2013 [facility] AUDIT [id number] 07/12/2013 07/12/2013 [facility] FUP, Provi dakota: VANI SHIPMAN, Status: Pen, Time: 12:15 PM [id number] 08/09/20 13 07/12/2013 [facility] AUDIT [id number] 08/09/2013 08/09/2013 [facility] AUDIT [id number] 08/16/2013 08/16/2013 [facility] FUP, Provi dakota: VANI SHIPMAN, Status: Pen, Time: 2:15 PM [id number] 09/05/19 14 08/16/2013 [facility] FUP, Provi dakota: VANI SHIPMAN, Status: Pen, Time: 2:15 PM [id number] 10/09/19 14 08/16/2013 [facility] AUDIT [id number] 10/09/2013 10/09/2013 [facility] AUDIT [id number] 10/25/2013 10/25/2013 [facility] FUP, Provi dakota: VANI SHIPMAN, Status: Pen, Time: 2:15 PM [id number] 11/07/19 14 10/25/2013 [facility] AUDIT [id number] 11/06/2013 11/06/2013 [facility] AUDIT [id number] 11/08/2013 11/08/2013 [facility] Martin Souza MD 6m fu [id number] 12/12/2013 12/12/2013 Castillo Souza MD 6m fu [id number] 12/12/2013 12/12/2013 Castillo Souza MD 6m fu [id number]-8t5c27ozwt1f 12/12/2013 12/12/2013 aCstillo Souza MD 6m fu [id number]-4470-v22w-sq7p57n0708u 12/12/2013 12/12/2013 Castillo Souza MD 6m fu [id number]-7m96-3h2g-x337-3e4y79211w3p 12/12/2013 12/12/2013 Castillo Souza MD 6m fu 16c4iru6-09zy-5c28-i0l0-zrc39440i920 12/12/2013 12/12/2013 Castillo Souza MD 6m fu [id number]-1c24-165t52ul5816 12/12/2013 12/12/2013 Castillo Souza MD 6m fu 122qw13t-nz54-5p09-34p2-07d786yrix4x 12/12/2013 12/12/2013 Castillo Souza MD 6m fu [id number]-jk50m6554k4t 12/12/2013 12/12/2013 Castillo Souza MD 6m fu 08cunv9r-c7y6-1ty6-4926-1c0zj56t8h9i 12/12/2013 12/12/2013 Castillo Souza MD 6m fu [id number]-0trv-5km85w270989 12/12/2013 12/12/2013 Castillo Souza MD 6m fu 3h2q08q3-v141-32o6-7023-39e9u6f5vng7 12/12/2013 12/12/2013 Castillo Souza MD 6m fu [id number] 12/12/2013 12/12/2013 Castillo Souza FULesli, Provi dakota: VANI SHIPMAN, Status: Pen, Time: 12:45 PM [id number] 01/04/20 14 11/08/2013 [facility] AUDIT [id number] 01/03/2014 01/03/2014 [facility] HE, Provi dakota: VANI SHIPMAN, Status: Pen, Time: 2:00 PM [id number] 05/01/20 14 01/03/2014 [facility] Martin Souza MD 6m fu [id number] 06/13/2014 06/13/2014 Castillo Souza MD 6m fu [id number] 06/13/2014 06/13/2014 Castillo Souza MD 6m fu [id number]-43d4-n85u-fx8lo09c271m 06/13/2014 06/13/2014 Castillo Souza MD 6m fu [id number]-q922-2r9wt855m27k 06/13/2014 06/13/2014 Castillo Souza MD 6m fu 56kt5lm8-444n-1035-u338-03e16o71c924 06/13/2014 06/13/2014 Castillo Souza MD 6m fu [id number]-9j95-79ro-857q4e2o9k81 06/13/2014 06/13/2014 Castillo Souza MD 6m fu [id number]-7ej04mxgc395 06/13/2014 06/13/2014 Castillo Souza MD 6m fu [id number]-90gw-25m3-vy23w04w29e4 06/13/2014 06/13/2014 Castillo Souza MD 6m fu 257f0hm0-dpko-13q5-iw42-2q7uwcb088r6 06/13/2014 06/13/2014 Castillo Souza MD 6m fu i5609o6r-cx7v-27gb-58b3-a125v9b4y23n 06/13/2014 06/13/2014 Castillo Souza MD 6m fu 4snl73kw-m893-6a4j-0es1-722x2m67u785 06/13/2014 06/13/2014 Castillo Souza MD 6m fu [id number]-m8ra-4184-74b6-4791231xk32c 06/13/2014 06/13/2014 Castilol Souza MD [facility] [id number]-62le-9751-1805-5qnv657tf6u0 12/07/19 15 12/06/2014 Castillo Souza MD [facility] Bi Hands 2s0272t0-et98-4194-v6j4-7z3kc221rfw8 12/07/19 15 12/06/2014 Castillo Souza MD MRI Bi Hands f088u2vr-l948-6275-e22e-3jkb7nj313oi 12/07/19 15 12/06/2014 Castillo Souza MD MRI Bi Hands 96311s12-h9mw-184k-4682-76p5dp60701m 12/07/19 15 12/06/2014 Castillo Souza MD MRI Bi Hands 5p65m4h6-qufd-0q5u-gr40-h61308n0052k 12/07/19 15 12/06/2014 Castillo Souza MD [facility] k7l6h309-o4c3-780n-c879-353v284882z7 12/07/19 15 12/06/2014 Castillo Souza MD MRI Bi Hands 538pum2j-90s6-26z2-8a4b-3lm2y2453x72 12/07/19 15 12/06/2014 Castillo Souza MD MRI Bi Hands 20i80wy2-4o01-60kt-276q-7iw4i8a32i40 12/07/19 15 12/06/2014 Castillo Souza MD MRI Bi Hands 350qk41h-5880-29d0-h75q-n07714tuqf3c 12/07/19 15 12/06/2014 Castillo Souza MD MRI Bi Hands t2tr2786-3b0q-3573-g9wf-4p3s36szc0x2 12/07/19 15 12/06/2014 Castillo Souza MD MRI Bi Hands 3i04a2or-25mf-503t-i8n7-5z6b552qk200 12/07/1912/06/2014 Castillo Souza MD 6m fu f6ywz7g1-h353-81it-x210-72q118i0q1i9 12/12/2014 12/12/2014 Castillo Souza MD 6m fu [id number]-a1u8-1m15kpm01683 12/12/2014 12/12/2014 Castillo Souza MD 6m fu [id number]-3fzu-2i125i992396 12/12/2014 12/12/2014 Castillo Souza MD fu 8s6jma89-t738-3d1s-4og7-tv1872q18h4x 12/12/2014 12/12/2014 Castillo Souza MD fu 95rfl761-2174-3547-09ic-66h9v218g645 12/12/2014 12/12/2014 Castillo Souza MD 6m fu [id number]-62rs-u154-07u604q15996 12/12/2014 12/12/2014 Castillo Souza MD fu [id number]-87p7-2d56-27726sc87oq9 12/12/2014 12/12/2014 Castillo Souza MD 6m fu 988p9qg3-5x0g-69m2-0a6n-77f201554bf5 12/12/2014 12/12/2014 Castillo Souza MD 6m fu m9xo821y-u1lg-63l4-5724-8193a81a3558 12/12/2014 12/12/2014 Castillo Souza MD 6m fu 58y87w1g-98pt-61q5-v052-0f8527cbef51 12/12/2014 12/12/2014 Castillo Souza MD fu 1541s950-63hl-7y5a-j6s5-75j9vp42t350 12/12/2014 12/12/2014 Castillo Souza MD MRI f8ht8798-9kqm-3256-z7s4-2k386bt94j5q 12/18/2014 12/18/2014 Castillo Souza MD MRI 4i9jhywm-fzb1-577d-ya4w-u2248w079exl 12/18/2014 12/18/2014 Castillo Souza MD MRI q423737r-271i-5w14-0j75-68g1k23837q1 12/18/2014 12/18/2014 Castillo Souza MD MRI -ox52-50nn-41tn-b1283575o8q5 12/18/2014 12/18/2014 Castillo Souza MD MRI 3k4r2ht2-sp30-7g60-vp1g-dg362o5vum64 12/18/2014 12/18/2014 Castillo Souza MD MRI 4713g5e1-5110-8252-y41h-6p7306m4cq5v 12/18/2014 12/18/2014 Castillo Souza MD MRI [id number]-0n87-7q50-623z-6399l569f198 12/18/2014 12/18/2014 Castillo Souza MD MRI 3pv666n0-3512-9ttw-6772-b31zfs66twk5 12/18/2014 12/18/2014 Castillo Souza MD MRI jk54b0rb-i54f-499o-2zw1-6ng61748z28z 12/18/2014 12/18/2014 Castillo Souza MD MRI 7s616p4v-26b4-756a-uow3-30r6c9a221mq 12/18/2014 12/18/2014 Castillo Souza MD [facility] 9t3emcu9-1983-80yp-1f63-59qm646807qb 12/18/2014 12/18/2014 Castillo Souza MD [facility] 1257ynor-k3d6-1psrd2m4-9dhb-o367-5r42tpd11h01 12/21/19 15 12/20/2014 Castillo Souza MD [facility] [id number]-rmxm-2tj630380y15 12/21/19 15 12/20/2014 MD Catalino Pitts k08az774-l4jo-95k6-9677-6t749e2460x8 12/21/19 15 12/20/2014 MD Catalino Pitts 2716057i-322u-0z10-wk44-q816h4hb13ci 12/21/19 15 12/20/2014 Castillo Souza MD Prolsharmila i927nk0f-k29x-010v-8872-185wcm7z04o4 12/21/19 15 12/20/2014 MD Catalino Pitts 34i91089-te39-4dtg-71w1-64i4o6w1870b 12/21/19 15 12/20/2014 MD Tao Pittsia 7tdxk147-0ags-41l6-a20a-6qo5ct6cr126 12/21/19 15 12/20/2014 MD Tao Pittsia 6oetn948-574t-77g5-2661-556wy453547p 12/21/19 15 12/20/2014 MD Tao Pittsia 6i65552w-9374-44q4-43n2-9866ssis4190 12/21/19 15 12/20/2014 MD Tao Pittsia 4p6r9dn9-6q70-51p3-q851-39e7sj965361 12/21/19 15 12/20/2014 MD Catalino Pitts 344s9k02-390p-3u3t-zo13-1a8jvx3b8r5r 12/21/19 15 12/20/2014 MD Catalino Pitts 3y81ay4o-1ky1-474t-78fq-cz0u8208x6qa 01/01/20 15 12/31/2014 MD Catalino Pitts goa96a14-9409-448b-589x-4iv99313y2s7 01/01/20 15 12/31/2014 MD Catalino Pitts 308b42gi-4401-3fz3-g71x-isa58389780w 01/01/20 15 12/31/2014 MD Catalino Pitts 5k3s0484-0lhx-72a0-75i1-k93592qvfh88 01/01/20 15 12/31/2014 MD Catalino Pitts t980a0sl-7978-9y1d-97y3-yjb6q76874a4 01/01/20 15 12/31/2014 MD Catalino Pitts w18s50tn-259c-1364-8nlj-28vo588e9s02 01/01/20 15 12/31/2014 MD Catalino Pitts 7x38ds9p-re45-3dlz-3idz-8zrp979su8p5 01/01/20 15 12/31/2014 MD Catalino Pitts 922r3993-7f6m-0crg-401i-7i0719c36u9y 01/01/20 15 12/31/2014 MD Catalino Pitts jg13k354-8820-0q26-3fim-680a8b093hc0 01/01/20 15 12/31/2014 MD Catalino Pitts g19t8gr8-8102-866z-r4db-b8499713u924 01/01/20 15 12/31/2014 Castillo Souza MD [facility] 92l39orm-kp4m-580d-cgm4-80a2bwe3655t 01/01/20 15 12/31/2014 Castillo Souza MD Appointment r75l79pz-285k-2288-9fa3-150w61kc65nw 01/24/20 15 01/23/2015 Castillo Souza MD Appointment 7g04sg55-l81q-0v90-44r8-8wp27hy7i84o 01/24/20 15 01/23/2015 Castillo Souza MD Appointment [id number] 01/24/20 15 01/23/2015 Castillo Souza MD Appointment 25281uz2-k5wc-69b5-20b3-7h0gijzlg187 01/24/20 15 01/23/2015 Castillo Souza MD Appointment [id number]-o6r9-3pq0-gm5w-67y0753gg8vc 01/24/20 15 01/23/2015 Castillo Souza MD Appointment 6f95ypb5-4344-5703-d532-7s5tv3d588jl 01/24/20 15 01/23/2015 Castillo Souza MD Appointment 43ycr7c3-dv47-1431-3d8r-8489s4r459a4 01/24/20 15 01/23/2015 Castillo Souza MD Appointment rg67v32a-ml2v-9824-851q-4r7p0t55op4u 01/24/20 15 01/23/2015 Castillo Souza MD Appointment q546y0os-t6qs-1t8x-0623-916r0049k512 01/24/20 15 01/23/2015 Castillo Souza [facility] OBS Day Surgery [id number] Dangelo Hand 03/24/2015 03/24/2015 [facility] Martin Souza MD 6m fu zjr4kw08-f981-703o-y3vv-6478c1t65913 06/13/2015 06/13/2015 Castillo Souza MD 6m fu g69409mo-bhl3-1n57-29r4-7gw6ux113q06 06/13/2015 06/13/2015 Castillo Souza MD 6m fu wr3e5c3f-sbrv-89o5-hlq7-847h6x4v6160 06/13/2015 06/13/2015 Castillo Souza MD 6m fu otjp81s5-2r46-0kpl-5996-641m407a3p6y 06/13/2015 06/13/2015 Castillo Souza MD 6m fu 689j1sy4-675o-23op-ymw7-72um7l4u2u29 06/13/2015 06/13/2015 Castillo Souza MD 6m fu bl3415oe-t2u2-2m90-j3y7-185d0873699j 06/13/2015 06/13/2015 Castillo Souza MD 6m fu kr4806od-49d0-3723-u9f8-s5x0xcer9b2e 06/13/2015 06/13/2015 Castillo Souza MD 6m fu [id number]-62s6-00f0u6261ki6 06/13/2015 06/13/2015 Castillo Souza MD 6m fu 8w2j75m6-173t-385a-6049-627g1mm07908 06/13/2015 06/13/2015 MD nasra Pittstera n2c81692-88wt-15gt-8w1r-pjaq9z26rt40 06/17/2006/17/2015 Castillo Souza MD mirtera vq45110g-3708-9191-r56l-465105t87l02 06/17/20 15 06/17/2015 Castillo Souza MD mirtera 2858k13g-d547-4cao-813s-400g74w16685 06/17/20 15 06/17/2015 Castillo Souza MD mirtera 445r52cy-h404-76n6-p084-296n0m85867u 06/17/20 15 06/17/2015 Castillo Souza MD mirtera q9g102f0-p3jr-04yc-71c5-2g17074ddc2i 06/17/20 15 06/17/2015 Castillo Souza MD mirtera 8936r414-h908-47g0-4u2x-4s285qoo491r 06/17/20 15 06/17/2015 Castillo Souza MD mirtera [id number]-jrew-5h8j-8wk4-1p70573d3lsy 06/17/20 15 06/17/2015 Castillo Souza MD mirtera 89i9jh47-7315-5r84-j4d9-17z8z596900q 06/17/20 15 06/17/2015 Castillo Souza MD mirtera i4vydd8s-649o-13sj-8uw6-87u32cld2e3j 06/17/20 15 06/17/2015 Castillo Souza MD DEXA 0w9k36d4-53h6-5006-975y-87q981v33fza 07/11/2015 07/11/2015 Castillo Souza MD DEXA [id number] 07/11/2015 07/11/2015 Castillo Souza MD DEXA 40izo260-12uc-6h53-04z5-0n231hc94vo3 07/11/2015 07/11/2015 Castillo Souza MD DEXA 5qe246ge-031m-537t-k0fe-2jp595r5d299 07/11/2015 07/11/2015 Castillo Souza MD DEXA [id number]-l690k960ciq6 07/11/2015 07/11/2015 Castillo Souza MD DEXA 0l8gg5c9-56ku-07e1-4c8z-376pzpc50t64 07/11/2015 07/11/2015 Castillo Souza MD DEXA [id number]515 07/11/2015 07/11/2015 Castillo Souza MD DEXA [id number]-[id number] 07/11/2015 07/11/2015 Castillo Souza MD DEXA [id number] 07/11/2015 07/11/2015 Castillo Souza [facility] Out[facility] - [place] [facility] Services [id number] 00 Vani Shipman 08/19/2015 08/20/2015 [facility] OBS Day Surgery [id number] Dangelo Yazan 11/24/2015 11/24/2015 [facility] Martin Souza MD Lab results [id number] 02/04/20 16 02/04/2016 Castillo Souza MD Lab results qjvb2vdx-[id number]-xm84-8lrhf932q047 02/04/20 16 02/04/2016 Castillo Souza MD Lab results [id number]-82127ces61kj 02/04/20 16 02/04/2016 Castillo Souza MD Lab results i5nv1j7j-t860-19po-z1h2-6z38696cutj2 02/04/20 16 02/04/2016 Castillo Souza MD Lab results [id number] 02/04/20 16 02/04/2016 Castillo Souza MD Lab results [id number] 02/04/20 16 02/04/2016 Castillo Souza MD Lab results 448of4u2-[id number]-[id number] 02/04/20 16 02/04/2016 Castillo Souza MD Lab results [id number] 02/04/20 16 02/04/2016 Castillo Souza MD Update [id number]-l1sh-40g9-g8h9-0067q7z0cvo3 02/09/20 16 02/09/2016 Castillo Souza MD Update 3p5at378-st3v-99x3-2c39-581rt85mj81l 02/09/20 16 02/09/2016 Castillo Souza MD Update 9jxd6270-hn1z-21d2-802l-034891s7c242 02/09/20 16 02/09/2016 Castillo Souza MD Update 8679v1hs-gs77-8yi2-008u-t90jf42q1vqf 02/09/20 16 02/09/2016 Castillo Souza MD Update [id number]-[id number] 02/09/20 16 02/09/2016 Castillo Souza MD Update eb3p5sr9-1c14-247m-m382-3u8g57q314lw 02/09/20 16 02/09/2016 Castillo Souza MD Update 30lez900-063c-2p8j-5lf8-x73645bu6y3i 02/09/20 16 02/09/2016 Castillo Souza MD Update [id number]-a6dc-9xp5h90l1u04 02/25/20 16 02/25/2016 Castillo Souza MD Update [id number]-82pj-[id number] 02/25/20 16 02/25/2016 Castillo Souza MD Update alqj37l4-8v5d-707z-4f4x-31b82106o90p 02/25/20 16 02/25/2016 Castillo Souza MD Update hu0ih0t9-3i2j-6137-lbd7-9843x324y00p 02/25/20 16 02/25/2016 Castillo Souza MD Update 84uoe8d4-k184-54pw-34i5-8m6p7b2w3764 02/25/20 16 02/25/2016 Castillo Souza MD Update [id number]-9190-k82g-796vw4dhw140 02/25/20 16 02/25/2016 Castillo Souza [facility] Outpatient Imaging - [place] Outpt Diag Services [id number] 01 Vanigrover Maganaton 03/03/2016 03/04/[facility] [place] Martin Souza MD Unknown [id number] 03/11/20 16 03/11/2016 Castillo Souza MD Unknown [id number] 03/11/20 16 03/11/2016 Castillo Souza MD Unknown [id number] 03/11/20 16 03/11/2016 Castillo Souza MD Unknown [id number] 03/11/20 16 03/11/2016 Castillo Souza MD Unknown [id number] 03/11/20 16 03/11/2016 Castillo Souza MD Prolia [id number] 05/06/20 16 05/06/2016 Castillo Souza MD Prolia [id number] 05/06/20 16 05/06/2016 Castillo Souza MD Prolia [id number] 05/06/20 16 05/06/2016 Castillo Souza MD Prolia [id number] 05/06/20 16 05/06/2016 Castillo Souza MD 6 MTH PROLIA [id number] 09/10/19 17 09/10/2016 Castillo Souza MD Labs [id number] 09/10/2016 09/10/2016 Castillo Souza MD Labs [id number] 09/10/2016 09/10/2016 Castillo Souza MD Labs [id number] 09/10/2016 09/10/2016 Castillo Souza MD Vitamin D [id number] 09/10/19 09/10/2016 Castillo Souza MD Vitamin D [id number] 09/10/1909/10/2016 Castillo Souza MD Vitamin D [id number] 09/10/19 17 09/10/2016 Castillo Souza [facility] [id number] [facility] 11/04/2016 11/04/2016 [facility] [place] [facility] [id number] Vanigrover [place] 07/16/2017 07/17/2017 [facility] [place] [facility] [place] [facility] [id number] Vanigrover [place] 05/02/2018 05/03/2018 [facility] [place] [facility] [place] [facility] [id number] [facility] 05/11/2018 06/10/2018 [facility] [place] [facility] [place] [facility] [id number] [facility] 06/12/2018 07/12/2018 [facility] [place] [facility] [place] [facility] [id number] [facility] 07/13/2018 08/12/2018 [facility] [place] [facility] [place] [facility] [id number] [facility] 07/17/2018 07/18/2018 [facility] [place] [facility] [place] [facility] [id number] [facility] 07/19/2019 07/20/2019 [facility] [place] Procedures Procedure Code Date Perfomer Comments Source Abdominal hysterectomy [id number] [facility] [place],[facility] [place], [facility] [place] Appendectomy [id number] RADHAD [place],[facility] [place] [facility] [place] Cholecystectomy [id number] BOB [facility] [place] [facility] [place] Colonoscopy [id number] BOB Hung,[facility] [place], [facility] [place] Excision of ganglion cyst [id number] BOB CHELSEA Hung,[facility] [place] Assessment and Plan No Data Provided for [...] No; Reg Smoking Cessation Counseling No 10/28/2016 [facility] Social History TypeResponse Alcohol Never Smoking [...]
--- OUTSIDE RECORDS SUMMARY | 2020-01-28 10:56 | XMS REPORT ---
Author Author [facility] t Organization [facility] Address 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 Name Role Phone ALONZO WADDELL, MD LUDWIG PCP Mine MUNOZ Attphys Unavailable Khadar GREENE Attphys Unavailable RODNEY SHIPMAN Attphys Unavailable Tracey Shipman Attphys Khadar HATHAWAY Attphys Unavailable Jamila DAMON Attphys Unavailable Adan Hand Attphys RODNEY SHIPMAN Admphys Unavailable Khadar HATHAWAY Admphys Unavailable Payers Payer Name Policy Type Policy Number Effective Date Expiration Date S [facility] Medicare NA 2013 00:00:00 [facility] Problems Condition Name Condition Details Condition Category Status Onset Date Resolution Date Last Treatment Date Treating Clinician Comments Source CERVICAL CERV ICAL Active 05/11/2018 [facility] Diagnosis Active 2018-05-11 08:00:00 2018-07-13 21:49:00 [facility]ine UNK UNK Active 10/18/2016 [facility] Active 2016-10-18 00:00:00 2016-11-04 05:56:00 [facility] Z12.31 - ENCNTR SCREEN MAMMOGRAM FOR MA Z12.31 - ENCNTR SCREEN MAMMOGRAM FOR MA Active 07/30/2015 [facility] Diagnosis Active 2015-07-30 00:01:00 2015-08-19 14:20:00 M H [facility] Saline 585.4 585. 4 Active 03/04/2015 [facility] Diagnosis Active 2015-03-04 00:00:00 2015-03-24 09:19:00 [facility] 585.2 585. 2 Active 07/30/2014 [facility] Active 2014-07-30 00:00:00 2014-10-18 13:32:00 [facility] Mechanical complication due to peritoneal dialysis cat heter Peritoneal dialysis catheter mechanical complication Problem Active [facility] Ataxia Ataxia Problem Active [facility] Transient cerebral ischemia Problem Active [facility] Peritoneal dialysis catheter dysfunction Problem Active [facility] End-stage renal disease on peritoneal dialysis Problem Active [facility] Hypothyroidism Hypo thyroidism Active 01/03/2014 [facility] [...] Castillo Souza Problem Active 2019-12-07 03:02:17 Castillo Burrowser Osteoporosis Oste oporosis Active Problem 12/07/2019 Castillo Souza Problem Active 2019-12-07 03:02:17 Castillo Souza ESRD (end stage renal disease) ESRD (end stage renal disease) Active Problem 12/07/2019 Castillo Souza Problem Active 2019-12-07 03:02:17 Castillo Souza Other longterm (current) drug therapy 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 Active Problem 12/07/2019 Castillo Burrowser Problem Ac tive 2019-12-07 03:02:17 Castillo Burrows [...] reflux disease (disorder) Active Problem 07/22/2019 BOB Hung,[facility] [place] Problem Active 2019-07-22 00:09:36 BOB Hung, [facility], [facility] Saline, [facility] [place] Anemia of chronic renal failure (disorder) Anemia of chronic renal failure (disorder) Active Problem 07/22/2019 BOB Hung,[facility] Saline, [facility] [place] Problem Active 2019-07-22 00:09:36 BOB Saline, [facility], [facility] Sal[facility], [facility] [place] Diabetes mellitus (disorder) D iabetes mellitus (disorder) Active Problem 07/22/2019 BOB Hung,[facility] Saline, [facility] [place] Problem Active 2019-07-22 00:09:36 BOB Hung, [facility], [facility] Sal[facility], [facility] [place] Hearing loss (finding) Hear ing loss (finding) Active Problem 07/22/2019 [facility], [facility], [facility], [facility] [place] Problem Active 2019-07-22 00:09:36 [facility], [facility], [facility], [facility] [place] Hypertensive disorder, systemic arterial (disorder) Hypertensive disorder, systemic arterial (disorder) Active Problem 07/22/2019 [facility], [facility], [facility], [facility] [place] Problem Active 2019-07-22 00:09:36 [facility], [facility], [facility], [facility] [place] Hypercholesterolemia (disorder) Hypercholesterolemia (disorder) Active Problem 07/22/2019 [facility], [facility], [facility], [facility] [place] Problem Active 2019-07-22 00:09:36 [facility], [facility], [facility], [facility] [place] Hypertriglyceridemia (disorder) Hypertriglyceridemia (disorder) Active Problem 07/22/2019 [facility], [facility], [facility], [facility] [place] Problem Active 2019-07-22 00:09:36 [facility], [facility], [facility], [facility] [place] Hypothyroidism (disorder) Hypo thyroidism (disorder) Active Problem 07/22/2019 [facility], [facility], [facility], [facility] [place] Problem Active 2019-07-22 00:09:36 O PID [facility], [facility], [facility], [facility] [place] Renal failure syndrome (disorder) Renal failure syndrome (disorder) Active Problem 07/22/2019 [facility], [facility], [facility], [facility] [place] Problem Active 2019-07-22 00:09:36 [facility], [facility], [facility], [facility] [place] Incisional hernia of anterior abdominal wall (disorder ) Incisional hernia of anterior abdominal wall (disorder) Active Problem 07/22/2019 [facility], [facility], [facility], [facility] [place] Problem Active 2019-07-22 00:09:36 [facility], [facility], [facility], BOB [place] Anxiety (finding) Anxi ety (finding) Active Problem 07/22/2019 [facility] Saline, [facility] Saline, [facility] [place] Problem Active 2019-07-22 00:09:36 [facility], [facility], [facility] Saline, [facility] [place] Weakness Weak ness 01/29/2019 [facility] Saline Problem 2019-01-29 11:39:50 [facility] [place] Abnormal posture Abno rmal posture 03/01/2019 [facility] Saline Problem 2019-03-01 11:34:53 [facility] Saline Encounter for screening mammogram for malignant neopla sm of breast Encounter for screening mammogram for malignant neoplasm of breast 07/22/2019 [facility] Problem 2019-07-22 00:09:36 [facility] Spondylolisthesis, cervical region Spondylolisthesis, cervical region 11/19/2018 [facility] [place] Problem 2018-11-19 14:24:21 [facility] [place] Muscle weakness (generalized) Muscle weakness (generalized) 03/01/2019 [facility] Saline Problem 2019-02 11:34:53 [facility] Saline CHRONIC KIDNEY DISEASE, STAGE 4 (SEVERE) CHRONIC KIDNEY DISEASE, STAGE 4 (SEVERE) Active [facility] Diagnosis Active 2015-12-16 15:02:00 [facility] END STAGE RENAL DISEASE END STAGE RENAL DISEASE Active [facility] Diagnosis Active 2016-11-04 05:56:00 [facility] Cervicalgia Cerv icalgia 08/18/2018 03/01/2019 [facility] Saline, [facility] [place] Problem 2018-08-18 05: 46:36 2019-03-01 11:34:53 2019-03-01 11:34:53 [facility] [place], [facility] [place] Allergies, Adverse Reactions, Alerts Allergy Name Allergy Type Status Severity Reaction(s) Onset Date Inacti ve Date Treating Clinician Comments Source Plavix Plavix Active rash 2019-07-24 00:00:00 [facility] Fosamax Fosamax Active severe muscle cramping 2019-07-24 00:00:00 [facility] Lansoprazole Allergy to substance Active Moderate ITCHING 2018-08-21 00 :00:00 [facility] No Known Drug Allergies No Known Drug Allergies Active [facility] Plavix TABS Plavix TABS Active [facility] Social History Social Habit Start Date Stop Date Quantity Comments Source Caffeine: 2016-09-10 00:00:00 2016-09-10 00:00:00 [facility] Social History 2014-01-03 19:04:04 2014-01-03 19:04:04 [facility] Sex Assigned At 1935 00:00:00 1935 00:00:00 Female [facility] Medications Ordered Medication Name Filled Medication Name Start Date Stop Da te Current Medication? Ordering Clinician Indication Dosage Frequency Signature (SIG) Comments Components Source Nubia 2019-09-15 03:47:23 Yes Tatianna Stone 1 t ablet as needed Castillo Burrowser Levothyroxine Sodium 2019-09-15 03:47:23 Yes Tatianna Stone [...] Vitamin D (Ergocalciferol) 2018-11-13 00:00:00 Yes Frances Souza 1 capsule Castillo Souza Prolia 2018-10-05 00:00:00 Yes Tatianna ortiz d irected Castillo Souza [place] 3 2018-04-07 02:47:54 Yes Makeda Ozuna 1 capsule Castillo Souza Famotidine 2018-04-07 02:47:54 Yes Makeda Ozuna 1 tablet as needed Castillo Souza Amlodipine Besylate 2018-04-07 02:47:54 Yes Makeda Ozuna 1/2 tablet Castillo Souza Cyanocobalamin 2018-04-07 02:47:54 Yes Makeda Ozuna 1 [...] Yes Wajeeha Ranjit 1 tablet Castillo Souza Aspir-81 2017-04-14 02:46:16 Yes Wajeeha Ranjit 1 tablet Castillo Souza Prolia 2017-04-14 02:46:16 Yes Wajeeha Ranjit 60M G SQ Castillo Souza Calcitriol 2017-04-14 02:46:16 Yes Wajeeha Ranjit 1 capsule Castillo Souza Levothyroxine Sodium 2017-04-14 02:46:16 Yes Wajeeha Ranjit 1 tablet Castillo Souza Paroxetine HCl 2017-04-14 02:46:16 Yes Wajeeha Ranjit 1 tablet in the morning Castillo Souza [place] 3 2017-04-14 02:46:16 Yes Wajeeha Ranjit 1 capsule Casitllo Souza Sodium Bicarbonate 2017-04-14 02:46:16 Yes Wajeeha [...] Score 4- 6, Start date: 11/04/16 11:10:00 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 [facility] labetalol (ANES) 2016-11-04 16:12:00 No Route: IV, Drug form: INJ, ONCE, Stop date: 11/04/16 10:12:00 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 [facility] ePHEDrine (ANES) 2016-11-04 15:58:00 No Route: IV, Drug form: INJ, ONCE, Stop date: 11/04/16 9:58:00 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 [facility] famotidine (ANES) 2016-11-04 15:58:00 No Route: IV, Drug form: INJ, ONCE, Stop date: 11/04/16 9:58:00 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 [facility] ondansetron (ANES) 2016-11-04 15:58:00 No Route: IV, Drug form: INJ, ONCE, Stop date: 11/04/16 9:58:00 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 [facility] fentaNYL (ANES) 2016-11-04 15:58:00 No Route: IV, Drug form: INJ, ONCE, Stop date: 11/04/16 9:58:00 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 [facility] propofol (ANES) 2016-11-04 15:58:00 No Route: IV, Drug form: INJ, ONCE, Stop date: 11/04/16 9:58:00 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 [facility] lidocaine (ANES) 2016-11-04 15:58:00 No Route: IV, Drug form: INJ, ONCE, Stop date: 11/04/16 9:58:00 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) 2016-11-04 15:58:00 No Route: IV, Drug form: INJ, ONCE, Stop date: 11/04/16 9:58:00 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 [facility] glycopyrrolate ([facility]) 2016-11-04 15:58:00 No Route: IV, Drug form: INJ, ONCE, Stop date: 11/04/16 9:58:00 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 [facility] acetaminophen-codeine #3 2016-11-04 15:53:00 No 2 tab, Route: PO, Drug Form: TAB, Dosing Weight 59.545, kg, Q4H, PRN Pain Score 4-6, Start date: 11/04/16 9:53:00 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, Duration: 30 day, Stop date: 12/04/16 9:52:00 CDT [facility] Morphine 2016-11-04 15:53:00 No 2 mg, Route: IVP, Q3H, Dosing Weight 59.545, kg, PRN Pain Score 1-3, Start date: 11/04/16 9:53:00 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, Duration: 30 day, Stop date: 12/04/16 9:52:00 CDT [facility] vancomycin (ANES) (ANES) 2016-11-04 15:19:00 No Route: IV, Drug form: INJ, Start date: 11/04/16 9:19:00 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, Stop date: 11/04/16 10:19:00 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 [facility] ceFAZolin (ANES) (ANES) 2016-11-04 15:19:00 No Route: IV, Drug form: INJ, Start date: 11/04/16 9:19:00 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, Stop date: 11/04/16 10:19:00 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 [facility] sodium chloride 0.9% 500 ml INJ (ANES) 2016-11-04 15:10:00 No Route: IV, Total Volume: 500, Start date: 11/04/16 9:10:00 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, Stop date: 11/04/16 10:10:00 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 [facility] sodium chloride 0.9% 500 ml INJ 500 mL 2016-11-04 14:04:00 No 500 mL, Rate: 40 ml/hr, Infuse over: 12.5 hr, Route: IV, Dosing Weight 59.545 kg, Total Volume: 500, Start date: 11/04/16 8:04:00 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, Duration: 1 day, Stop date: 11/05/16 8:03:00 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 [facility] Lactated Ringers 1,000 mL 2016-11-04 14:03:00 No 1,000 mL, Rate: 40 ml/hr, Infuse over: 25 hr, Route: IV, Dosing Weight 59.545 kg, Total Volume: 1,000, Start date: 11/04/16 8:03:00 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, Duration: 1 day, Stop date: 11/05/16 8:02:00 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 [facility] Vitamin D3 50,000 intl units oral capsule 2016-10-28 16:01:00 Yes 50,000 IntlUnit = 1 cap, PO, qWeek, # 12 cap, 0 Refill(s) [facility] glimepiride 1 mg oral tablet 2016-10-28 16:00:00 Yes 1 mg = 1 tab, PO, Daily, 0 Refill(s) [facility] Ancef 2016-10-28 16:00:00 No Notes: Same as : [facility] Vancomycin 2016-10-28 16:00:00 No 2001 mg: infuse over 2.5 hours MEDICATION WASTE Product Size: 1000 mg Product Wasted: ___ mg [facility] Famotidine 10 MG Oral Tablet 2016-10-28 16:00:00 Yes 10 mg = 1 tab, PO, BID, 0 Refill(s) [facility] Nubia 2016-09-14 03:50:08 Yes Martin Souza 1 t ablet as needed Castillo Souza Vitamin D (Ergocalciferol) 2016-09-10 00:00:00 Yes Farshadi p Souza 1 capsule Castillo Souza Synthroid 2016-03-16 02:55:00 Yes Makeda Ozuna 1 tablet every morning on an empty stomach [facility]illo Wall er Losartan Potassium 2016-03-16 02:55:00 Yes Makeda Ozuna 1 tablet Castillo Souza Tricor 2016-03-16 02:55:00 Yes Makeda Ozuna 1 t ablet Castillo Souza PredniSONE 2016-02-09 00:00:00 Yes Martin Souza 2 tablets with food or milk Castillo Souza Nexium 2016-02-09 00:00:00 Yes Martin Souza 1 ca psule Castillo Souza propofol (ANES) 2015-11-24 14:58:00 No Route: IV, Drug form: INJ, ONCE, Stop date: 11/24/15 9:58:00 [facility] lidocaine ([facility]) 2015-11-24 14:58:00 No Route: IV, Drug form: INJ, ONCE, Stop date: 11/24/15 9:58:00 [facility] fentaNYL ([facility]) 2015-11-24 14:53:00 No Route: IV, Drug form: INJ, ONCE, Stop date: 11/24/15 9:53:00 [facility] midazolam ([facility]) 2015-11-24 14:53:00 No Route: IV, Drug form: SOLN, ONCE, Stop date: 11/24/15 9:53:00 [facility] the[facility] ceFAZolin ([facility]) 2015-11-24 14:53:00 No Route: IV, Drug form: INJ, ONCE, Stop date: 11/24/15 9:53:00 [facility] Oxycodone 2015-11-24 14:51:00 No Notes: (Sa me as: Roxicodone) [facility] Flumazenil 2015-11-24 14:51:00 No Notes: (S juan as: Romazicon) [facility] Meperidine 2015-11-24 14:51:00 No Notes: (S juan As: Demerol) [facility] Naloxone 2015-11-24 14:51:00 No Notes: Same as Narcan [facility] Fentanyl 2015-11-24 14:51:00 No Notes: (Same as: Sublimaze) Preservative free. [facility] Hydromorphone 2015-11-24 14:51:00 No 0.5 mg, 0.5 mL, Route: IVP, Drug form: INJ, Q5Min, Dosing Weight 57.784, kg, PRN Pain Score 7-10, Start date: 11/24/15 9:51:00, Duration: 4 doses or times, Stop date: Limited # of times [facility] Ondansetron 2015-11-24 14:51:00 No Notes: (Same as: Zofran) MEDICATION WASTE Product Size: 4 mg Product Wasted: ___ mg [facility] Hydralazine 2015-11-24 14:51:00 No Notes: (Same as: Apresoline) Push over 5 minutes [facility] ondansetron ([facility]) 2015-11-24 14:43:00 No Route: IV, Drug form: INJ, ONCE, Stop date: 11/24/15 9:43:00 [facility] vancomycin (ELENITA) (ELENITAS) 2015-11-24 14:11:00 No Route: IV, Drug form: INJ, Start date: 11/24/15 9:11:00, Stop date: 11/24/15 10:11:00 [facility] Sodium Chloride 0.154 MEQ/ML Injectable Solution 2015-11-24 14:0 9:00 No 500 mL, Rate: 25 ml/hr, Infu se over: 20 hr, Route: IV, Dosing Weight 57.784 kg, Total Volume: 500, Start date: 11/24/15 9:09:00, Duration: 30 day, Stop date: 12/24/15 9:08:00 [facility] Sodium Chloride 0.9% IV ([facility]) (ELENITAS) 2015-11-24 14:08:00 N o Route: IV, Total Volume: 500, Start date: 11/24/15 9:08:00, Stop date: 11/24/15 10:08:00 [facility] Calcium Chloride 0.0014 MEQ/ML / Potassi um Chloride 0.004 MEQ/ML / Sodium Chloride 0.103 MEQ/ML / Sodium Lactate 0.028 MEQ/ML Injectable Solution 2015-11-24 14:08:00 No 1,000 mL, Rate: 25 ml/hr, Infuse over: 40 hr, Route: IV, Dosing Weight 57.784 kg, Total Volume: 1,000, Start date: 11/24/15 9:08:00, Duration: 30 day, Stop date: 12/24/15 9:07:00 [facility] Vancomycin 2015-11-17 22:00:00 No 2001 mg: infuse over 2.5 hours MEDICATION WASTE Product Size: 1000 mg Product Wasted: ___ mg [facility] Ancef 2015-11-17 22:00:00 No Notes: Same as : [facility] Hydralazine 2015-03-24 18:35:00 No 10 mg, Route: IVP, Q20Min, Dosing Weight 60, kg, PRN Elevated BP, Start date: 03/24/15 13:35:00, Duration: 2 doses or times, Stop date: Limited # of times [facility] Glycopyrrolate 2015-03-24 18:35:00 No 0.2 mg, Route: IVP, Q5Min, Dosing Weight 60, kg, PRN Bradycardia, Start date: 03/24/15 13:35:00, Duration: 3 doses or times, Stop date: Limited # of times [facility] Ondansetron 2015-03-24 18:35:00 No 4 mg, Route: IVP, ONCE, Dosing Weight 60, kg, PRN Nausea & Vomiting, Start date: 03/24/15 13:35:00 [facility] Flumazenil 2015-03-24 18:35:00 No 0.2 mg, Route: IVP, PRN, Dosing Weight 60, kg, PRN Benzodiazepine Reversal, Initial dose, Start date: 03/24/15 13:35:00, Duration: 30 day, Stop date: 04/23/15 13:34:00 [facility] Meperidine 2015-03-24 18:35:00 No 12.5 mg, Route: IVP, Q30Min, Dosing Weight 60, kg, PRN Other -See Comment, For shivering, Start date: 03/24/15 13:35:00, Duration: 2 doses or times, Stop date: Limited # of times [facility] Promethazine 2015-03-24 18:35:00 No 6.25 mg, Route: IVPB, ONCE, Dosing Weight 60, kg, PRN Nausea & Vomiting, Start date: 03/24/15 13:35:00 [facility] Naloxone 2015-03-24 18:35:00 No 0.04 mg, Route: IVP, Q2MIN, Dosing Weight 60, kg, PRN Narcotic Reversal, Start date: 03/24/15 13:35:00, Duration: 8 doses or times, Stop date: Limited # of times [facility] Morphine 2015-03-24 18:35:00 No 4 mg, Route: IVP, Q5Min, Dosing Weight 60, kg, PRN Pain Score 7-10, Start date: 03/24/15 13:35:00, Duration: 3 doses or times, Stop date: Limited # of times [facility] Hydromorphone 2015-03-24 18:35:00 No 0.5 mg, Route: IVP, Q5Min, Dosing Weight 60, kg, PRN Pain Score 7-10, Start date: 03/24/15 13:35:00, Duration: 4 doses or times, Stop date: Limited # of times [facility] Diphenhydramine 2015-03-24 18:35:00 No 12.5 mg, Route: IVP, Drug form: INJ, Q6H, Dosing Weight 60, kg, PRN Itching, Start date: 03/24/15 13:35:00, Duration: 30 day, Stop date: 04/23/15 13:34:00 [facility] Fentanyl 2015-03-24 18:35:00 No 25 microgram, Route: IVP, Q5Min, Dosing Weight 60, kg, PRN Pain Score 4-6, Start date: 03/24/15 13:35:00, Duration: 4 doses or times, Stop date: Limited # of times [facility] Ketorolac 2015-03-24 18:35:00 Yes 4 days MEDICATION WASTE Product Size: 30 mg Product Wasted: ___ mg [facility] Oxycodone 2015-03-24 18:35:00 No 10 mg, Route: PO, Drug form: TAB, Q4H, Dosing Weight 60, kg, PRN Pain Score 7-10, Start date: 03/24/15 13:35:00, Duration: 30 day, Stop date: 04/23/15 13:34:00 [facility] Metoprolol 2015-03-24 18:35:00 No 1 mg, Route: IVP, Q5Min, Dosing Weight 60, kg, PRN Other -See Comment, Start date: 03/24/15 13:35:00, Duration: 5 doses or times, Stop date: Limited # of times [facility] acetaminophen-codeine #3 2015-03-24 18:01:00 No 1 tab, Route: PO, Drug Form: TAB, Dosing Weight 60, kg, Q4H, PRN Pain Score 4-6, Start date: 03/24/15 13:01:00, Duration: 30 day, Stop date: 04/23/15 13:00:00 [facility] Morphine 2015-03-24 18:01:00 No 2 mg, Route: IVP, Q3H, Dosing Weight 60, kg, PRN Pain Score 1-3, Start date: 03/24/15 13:01:00, Duration: 30 day, Stop date: 04/23/15 [facility] 16:43:00 No 2 gm, Route: IVPB, ONCE, Dosing Weight 60, kg, Start date: 03/24/15 11:43:00, Duration: 1 doses or times, Stop date: 03/24/15 11:43:00 [facility] Sodium Chloride 0.154 MEQ/ML Injectable Solution 2015-03-23 13:2 6:00 No 500 mL, Rate: 25 ml/hr, Infu se over: 20 hr, Route: IV, Dosing Weight 60 kg, Total Volume: 500, Start date: 03/23/15 8:26:00, Duration: 2 day, Stop date: 03/25/15 8:25:00 [facility] Vancomycin 2015-03-17 20:00:00 No N otes: TIME CRITICAL MEDICATION [facility] Vitamin B-12 2015-01-01 02:59:57 Yes Martin Souza 15 ml [facility] Sou[facility] Omeprazole 2015-01-01 02:59:57 Yes Martin Souza 2 capsules [facility] Sou[facility] Glimepiride 2015-01-01 02:59:57 Yes Martin Souza 1 tablet with breakfast or the first main meal of the day [facility] Atorvastatin Calcium 2015-01-01 02:59:57 Yes Martin Souza 1 tablet [facility] Sozua Fenofibrate 2015-01-01 02:59:57 Yes Martin Burrowser 1 tablet Castillo Souza Glimepiride 1 MG Oral Tablet 2014-01-03 19:04:04 Yes (Active) [facility] Levothyroxine Sodium 75 MCG Oral [...] MG Oral Capsule 2014-01-03 19:04:04 Yes (Active) [facility] Metoprolol Succinate ER 50 MG Oral [...] ; Start Date: 11/08/2013; End Date: (Active) [facility] Atorvastatin Calcium 10 MG Oral Tablet 2013-11-06 20:34:17 Yes (Active) [facility] Cyanocobalamin 1000 MCG/ML Injection Solution 2013-08-16 15:31:3 7 Yes (Active) [facility] Clopidogrel Bisulfate 75 MG Oral Tablet 2013-08-16 15:31:37 Yes (Active) [facility] Integra Plus Oral Capsule 2013-08-16 15:31:37 Yes (Active) [facility] Fenofibrate 48 MG Oral Tablet 2013-08-16 06:00:00 Yes ; Start Date: 08/16/2013; End Date: (Active) [facility] Fenofibrate 48 MG Oral Tablet 2013-08-09 20:33:17 Yes (Active) [facility] Cyanocobalamin 1000 MCG/ML Injection Solution 2013-08-09 06:00:0 0 Yes ; Start Date: 08/09/2013 (Active) [facility] PARoxetine HCl 10 MG Oral Tablet 2013-07-12 06:00:00 Yes ; Start Date: 07/12/2013 (Active) [facility] Fish Oil CAPS 2013-06-18 16:04:19 Yes (Acti ve) [facility] Integra Plus CAPS 2013-06-18 16:04:19 Yes ( Active) [facility] Allergy TABS 2013-06-04 15:02:02 Yes (Activ e) [facility] Losartan Potassium 25 MG Oral Tablet 2013-06-04 05:00:00 Ye s ; Start Date: 06/04/2013 (Active) [facility] Losartan Potassium 25 MG Oral Tablet 2013-05-29 15:32:01 Ye s (Active) [facility] Amlodipine Besylate Amlodipine Besylate Yes 5 Daily [facility] Aspirin (Aspir 81) 81 Mg TABLET. Aspirin (Aspir 81) 81 Mg TABLET. Yes 81 Bedtime [facility] Atorvastatin Calcium Atorvastatin Calcium Yes 20 Bedtime [facility] Cinacalcet Hcl (Sensipar) 30 Mg TABLET Cinacalcet Hcl (Sensipar) 30 Mg TABLET Yes 30 Daily [facility] Fexofenadine Hcl (Nubia Allergy) 180 Mg TABLET Fexof enadine Hcl ([place]ia Allergy) 180 Mg TABLET Yes 180 As Needed as ne eded for Allergy [facility] Levothyroxine Sodium (Levothroid) 75 Mcg TABLET Levoth yroxine Sodium (Levothroid) 75 Mcg TABLET Yes 75 Daily [facility] Metoprolol Succinate Metoprolol Succinate Yes 50 Bedtime [facility] Pantoprazole Sodium (Protonix) 40 Mg TABLET. Pantopr azole Sodium (Protonix) 40 Mg TABLET. Yes 40 Daily [facility] Sevelamer Carbonate (Renvela) 0.8 Gm POWD.PACK Sevelam er Carbonate (Renvela) 0.8 Gm POWD.PACK Yes [facility] Terazosin Hcl Terazosin Hcl Yes 2 Bedtime [facility] Amoxicillin/Potassium Clav (Augmentin 500-125 Tablet) 1 Each TABLET Amoxicillin/Potassium Clav (Augmentin 500-125 Tablet) 1 Each TABLET 2019-09-23 00:00:00 No 500 Daily [facility] Calcitriol Calcitriol 2018-11-12 00:00:00 No .25 Fozuia ly [facility] Paroxetine Hcl Paroxetine Hcl 2018-11-12 00:00:00 No 10 Daily [facility] Denosumab (Prolia) 60 Mg/1 Ml DISP.SYRIN Denosumab (Pr michelle) 60 Mg/1 Ml DISP.SYRIN 2018-05-22 00:00:00 No 60 As Needed [facility] Cyanocobalamin (Cyanocobalamin Injection) 1,000 Mcg/Ml SOLN Cyanocobalamin (Cyanocobalamin Injection) 1,000 Mcg/Ml SOLN 2018-03-28 00:00:00 No 1000 Monthly [facility] Docusate Sodium (Stool Softener) 100 Mg CAPSULE Docusa te Sodium (Stool Softener) 100 Mg CAPSULE 2018-03-28 00:00:00 No 2 Bedtime [facility] Fenofibrate (Tricor) 48 Mg TAB Fenofibrate (Tricor) 48 Mg TAB 2018-03-28 00:00:00 No 48 Bedtime [facility] Gabapentin Gabapentin 2018-03-28 00:00:00 No 100 Bed time [facility] Glimepiride (Amaryl) 1 Mg TABLET Glimepiride (Amaryl) 1 Mg TABLE T 2018-03-28 00:00:00 No 1 Daily [facility] Iron Fum & P/Fa/Vit B & C No.9 (Integra Plus Capsule) 1 Each CAPSULE Iron Fum & P/Fa/Vit B & C No.9 (Integra Plus Capsule) 1 Each CAPSULE 20 15-03-31 00:00:00 No 1 Bedtime [facility] Losartan Potassium Losartan Potassium 2018-03-28 00:00:00 No 25 Daily [facility] Omeprazole Omeprazole 2018-03-28 00:00:00 No 40 Fouzia ly [facility] Sennosides/Docusate Sodium (Stool Softener Tablet) 1 E ach TABLET Sennosides/Docusate Sodium (Stool Softener Tablet) 1 Each TABLET 2018-03-28 00:00:00 No [facility] Sparkle Villagran 2017-06-15 00:00:00 No 4 Twic e A Day as needed for Nausea [facility] [place]-3 Fatty Acids/Fish Oil (Fish Oil 1,000 Mg Capsul e) 1 Each CAPSULE [place]-3 Fatty Acids/Fish Oil (Fish Oil 1,000 Mg Capsule) 1 Each CAPSULE 2014-03-31 00:00:00 No 2000 Daily [facility] Aspirin (Adult Aspirin) 81 Mg TAB.CHEW Aspirin (Adult Aspirin) 8 1 Mg TAB.CHEW 2013-05-13 00:00:00 No Daily [facility] Atorvastatin Calcium (Lipitor) 10 Mg TABLET Atorvastat in Calcium (Lipitor) 10 Mg TABLET 2013-05-13 00:00:00 No Qhs [facility] Fenofibrate Nanocrystallized (Tricor) 48 Mg TABLET Fen ofibrate Nanocrystallized (Tricor) 48 Mg TABLET 2013-05-13 00:00:00 No Qh s [facility] Fish Oil/Fat No.8/Hrb Comb.137 ([place] 3-6-9 1,200 Mg S oftgel) 1,200 Mg CAPSULE Fish Oil/Fat No.8/Hrb Comb.137 ([place] 3-6-9 1,200 Mg Softgel) 1,200 Mg CAPSULE 2013-05-13 00:00:00 No Daily [facility] Glimepiride (Amaryl) 1 Mg TABLET Glimepiride (Amaryl) 1 Mg TABLE T 2013-05-13 00:00:00 No Daily [facility] Isradipine (Dynacirc Cr) 5 Mg TAB.ER.24 Isradipine (Dynacirc Cr) 5 Mg TAB.ER.24 2013-05-13 00:00:00 No Daily [facility] Levothyroxine Sodium (Synthroid) 75 Mcg TABLET Levothy roxine Sodium (Synthroid) 75 Mcg TABLET 2013-05-13 00:00:00 No Qhs [facility] Metoprolol Succinate (Toprol Xl) 50 Mg TAB.SR.24H Meto prolol Succinate (Toprol Xl) 50 Mg TAB.SR.24H 2013-05-13 00:00:00 No Fouzia ly [facility] Omeprazole (Prilosec) 20 Mg CAPSULE. Omeprazole (Prilosec) 20 Mg CAPSULE. 2013-05-13 00:00:00 No Daily [facility] Vital Signs Vital Name Observation Time Observation Value Comments Source Body Temperature 2020-01-27 15:02:00 98.0 [degF] [facility] Weight 2020-01-27 11:15:00 113 [lb_av] [facility] BMI (Body Mass Index) 2020-01-27 11:15:00 19.4 kg/m2 [facility] Weight 2019-07-24 19:00:00 Castillo Souza Height 2019-07-24 19:00:00 Castillo Souza Temperature Oral (F) 2019-07-24 19:00:00 98.2 F Castillo Souza Heart Rate 2019-07-24 19:00:00 Castillo Souza Diastolic (mm Hg) 2019-07-24 19:00:00 Phi llip Souza Systolic (mm Hg) 2019-07-24 19:00:00 Farshad Burrowser Weight 2018-04-04 16:00:00 Castillo Souza Height 2018-04-04 16:00:00 Castillo Souza Temperature Oral (F) 2018-04-04 16:00:00 97.9 F Castillo Souza Heart Rate 2018-04-04 16:00:00 Castillo Souza Diastolic (mm Hg) 2018-04-04 16:00:00 Phi llip Souza Systolic (mm Hg) 2018-04-04 16:00:00 Farshad ashia Souza Weight 2017-10-12 15:15:00 Castillo Souza Height [...] Systolic (mm Hg) 2017-07-07 22:00:00 Farshad lip Souza Weight 2017-04-05 16:30:00 Castillo Souza Height 2017-04-05 [...] [facility] Respitory Rate 2016-11-04 16:30:00 [facility] Respitory Rate 2016-11-04 16:15:00 [facility] Heart Rate 2016-11-04 14:08:00 [facility] Temperature Oral (F) 2016-10-28 15:29:00 97.5 F [facility] Heart Rate 2016-10-28 15:29:00 [facility] Height 2016-10-28 15:22:00 162.56 cm [facility] Weight 2016-10-28 15:22:00 [facility] BMI Calculated 2016-10-28 15:22:00 [facility] Weight 2016-09-10 16:30:00 Castillo Souza [...] outheast Diastolic (mm Hg) 2015-11-24 17:15:00 [facility] Systolic (mm Hg) 2015-11-24 17:00:00 [facility] Diastolic (mm Hg) 2015-11-24 17:00:00 [facility] Respitory Rate 2015-11-24 15:45:00 [facility] Respitory Rate 2015-11-24 15:30:00 [facility] Respitory Rate 2015-11-24 15:15:00 [facility] Temperature Oral (F) 2015-11-17 21:53:00 97.9 F [facility] Heart Rate 2015-11-17 21:53:00 [facility] BMI Calculated 2015-11-17 21:30:00 [facility] Weight 2015-11-17 21:30:00 [facility] Height 2015-11-17 21:30:00 162.56 cm [facility] Systolic (mm Hg) 2015-03-24 20:15:00 [facility] Diastolic (mm Hg) 2015-03-24 20:15:00 [facility] Systolic (mm Hg) 2015-03-24 20:00:00 [facility] Diastolic (mm Hg) 2015-03-24 20:00:00 [facility] Systolic (mm Hg) 2015-03-24 19:45:00 [facility] Diastolic (mm Hg) 2015-03-24 19:45:00 [facility] Respitory Rate 2015-03-24 19:00:00 [facility] Respitory Rate 2015-03-24 18:45:00 [facility] Respitory Rate 2015-03-24 18:30:00 [facility] Heart Rate 2015-03-17 20:07:00 [facility] Temperature Oral (F) 2015-03-17 20:07:00 98.4 F [facility] Height 2015-03-17 19:18:00 162.56 cm [facility] BMI Calculated 2015-03-17 19:18:00 [facility] Weight 2015-03-17 19:18:00 [facility] Weight 2014-12-12 15:00:00 Castillo Souza Height 2014-12-12 [...] Procedure Date / Time Performed Performing Clinician [facility] Computed tomography of brain without radiopaque contrast 2019-12 00:00:00 [facility] Computed tomography of brain without radiopaque contrast 202 00:00:00 LOY SO [facility] Computed tomography of brain without radiopaque contrast 202 00:00:00 LOY SO [facility] Magnetic resonance imaging of brain without contrast 2019-08 00:00:00 ERICKA GREENE [facility] Abdominal hysterectomy [facility] [place], [facility], [facility] [place] [place] Appendectomy [facility] [place] , [facility], [facility] [place] Cholecystectomy [facility]ID [place] , [facility] [place], [facility] [place] Colonoscopy OPID [place] , [facility], [facility] [place], [facility] [place] Excision of ganglion cyst OPI D [place], [facility], [facility] [place], CHELSEA ROJAS [place] Plan of Care Planned Activity Planned Date Details Comments Source Future Scheduled Test Plan of Care [code = 93481-4] [facility] Future Scheduled Test Plan of Care [code = 74877-6] [facility] Future Scheduled Test Plan of Care [code = 04817-8] [facility] Future Scheduled Test Plan of Care [code = 03127-5] [facility] Future Scheduled Test Plan of Care [code = 16336-4] [facility] Future Scheduled Test Plan of Care [code = 07815-4] [facility] Future Scheduled Test Plan of Care [code = 72798-9] [facility] Future Scheduled Test Plan of Care [code = 01410-5] [facility] Future Scheduled Test Plan of Care [code = 58604-3] [facility] Instructions TIA [facility]. [facility] Encounters Start Date/Time End Date/Time Encounter Type Admission Type [facility] Care Department Encounter ID Source 2020-01-27 10:59:00 2020-01-27 15:07:00 Departed Emergency Room 1 VADIM MUNOZ [facility] [id number] [facility]. [facility] 2019-10-05 09:03:00 2019-10-05 13:37:00 Departed Emergency Room 1 [facility]ICKA GREENE [facility] [id number] [facility] 2019-09-24 09:14:00 2019-09-24 11:30:00 Departed Emergency Room [facility] [id number] [facility] 2019-09-22 13:23:00 2019-09-23 13:53:00 Discharged Inpatient (obs) 1 RODNEY SHIPMAN [facility] [id number] [facility] 2019-09-10 15:41:00 2019-09-10 15:41:00 Outpatient Martin Souza MD PA Martin Souza MD PA [id number] Castillo Souza MD 2019-07-24 13:00:00 2019-07-24 13:00:00 Outpatient Martin Souza MD PA [id number] Castillo Souza MD 2019-07-19 21:10:00 2019-07-20 05:59:00 Outpt Diag Services [facility] Outpatient Imaging - [place] [id number] [facility] [place] 2019-07-19 15:10:00 2019-07-19 23:59:00 Outpatient Melonie Shipman [facility] [id number] 2019-07-19 15:50:00 2019-07-19 15:50:00 Outpatient MD OMID De Jesus MD PA [id number] Castillo Souza MD 2019-07-19 11:02:00 2019-07-19 11:02:00 Outpatient MD OMID De Jesus MD PA [id number] Castillo Souza MD 2019-07-17 13:57:00 2019-07-17 13:57:00 Outpatient MD OMID De Jesus MD PA [id number] CHELSEA Souza MD 2019-07-13 15:04:00 2019-07-13 15:04:00 Outpatient MD OMID De Jesus MD PA [id number] Castillo Souza MD 2019-06-27 10:41:00 2019-06-27 10:41:00 Outpatient MD OMID De Jesus MD [place] [id number] Castillo Souza MD 2019-06-11 14:36:00 2019-06-11 14:36:00 Outpatient MD OMID De Jesus MD [place] [id number] CHELSEA Souza MD 2018-11-12 17:35:00 2018-11-16 10:59:00 Discharged Inpatient 1 RODNEY SHIPMAN [facility] [id number] [facility] 2018-11-13 15:57:00 2018-11-13 15:57:00 Outpatient Martin Souza MD PA [id number] Castillo Souza MD 2018-10-25 10:54:00 2018-10-25 10:54:00 Outpatient Martin Souza MD PA [id number] Castillo Souza MD 2018-08-28 09:56:00 2018-09-01 10:31:00 Discharged Inpatient 1 RODNEY SHIPMAN [facility] [id number] [facility] 2018-07-13 17:30:00 2018-08-12 05:59:00 OP Therapy Patients [facility]ALT [facility] [place] [id number] [facility] 2018-07-13 11:30:00 2018-08-11 23:59:00 Outpatient Rodney Shipman [id number] 2018-07-17 21:30:00 2018-07-18 05:59:00 Outpt Diag Services [facility] Outpatient Imaging - [place] [id number] MH [facility] [place] 2018-07-17 15:30:00 2018-07-17 23:59:00 Outpatient Melonie Shipman [facility] M[facility] [id number] 2018-06-12 18:00:00 2018-07-12 05:59:00 OP Therapy Patients [facility]ALT [facility] [place] [id number] [facility] 2018-06-12 13:00:00 2018-07-11 23:59:00 Outpatient Rodney Shipman [id number] 2018-05-11 19:16:00 2018-06-10 04:59:00 OP Therapy Patients [facility] [place] [id number] [facility] 2018-05-11 14:16:00 2018 23:59:00 Outpatient Rodney Shipman [id number] 2018 12:41:00 2018 12:41:00 Outpatient Martin Souza MD PA [id number] Castillo Souza MD 2018-05-19 12:17:00 2018-05-22 13:43:00 Discharged Inpatient (obs) 1 CHRISTEL HATHAWAY [facility] [id number] [facility] 2018-05-16 09:48:00 2018-05-18 11:14:00 Discharged Inpatient 1 HATHAWAYCHRISTEL BROWN [facility] [id number] [facility] 2018-05-02 18:53:00 2018-05-03 04:59:00 Outpt Diag Services [facility] Outpatient [facility] [id number] MH [place] [place] 2018-05-02 13:53:00 2018-05-02 23:59:00 Outpatient Melonie Shipman MHOIB MHOIB [id number] 2018-04-12 09:19:00 2018-04-12 09:19:00 Outpatient Martin ANNE [id number] Castillo Souza MD 2018-04-04 11:00:00 2018-04-04 11:00:00 Outpatient Martin ANNE [id number] Castillo Souza MD 2018-03-28 20:30:00 2018-03-31 13:56:00 Discharged Inpatient (obs) [facility] [id number] [facility] 2018-02-28 09:58:00 2018-02-28 09:58:00 Outpatient Martin Suoza MD PA [id number] Castillo Souza MD 2017-10-12 09:15:00 2017-10-12 09:15:00 Outpatient Martin Souza MD PA [id number] Castillo Souza MD 2017-09-22 11:33:00 2017-09-22 11:33:00 Outpatient Martin ANNE [id number] Castillo Souza MD 2017-09-22 10:30:00 2017-09-22 10:30:00 Outpatient Martin ANNE [id number] Castillo Souza MD 2017-08-30 13:51:00 2017-08-30 13:51:00 Outpatient Martin ANNE [id number] Castillo Souza MD 2017-08-01 10:00:00 2017-08-01 10:00:00 Outpatient Martin ANNE [id number] Castillo Souza MD 2017-07-22 12:45:00 2017-07-22 15:00:00 Departed Emergency Room [facility] [id number] [facility] 2017-07-16 21:24:00 2017-07-17 05:59:00 Outpt Diag Services [facility]ALT [facility] Outpatient Imaging - [place] [id number] MH [facility] [place] 2017-07-16 15:24:00 2017-07-16 23:59:00 Outpatient Melonie Shipman HOIP HOIP [id number] 2017-07-07 17:32:00 2017-07-07 17:32:00 Outpatient Martin Souza MD PA [id number] Castillo Souza MD 2017-07-07 16:00:00 2017-07-07 16:00:00 Outpatient Martin Souza MD PA [id number] CHELSEA Souza MD 2017-07-03 12:40:00 2017-07-03 16:25:00 Departed Emergency Room PATRICK LEMONS [facility] [id number] [facility] 2017-06-22 15:33:00 2017-06-22 15:33:00 Outpatient Martin Souza MD PA [id number] Castillo Souza MD 2017-06-13 14:53:00 2017-06-15 12:32:00 Discharged Inpatient (obs) RODNEY POLO [facility] [id number] [facility] 2017-04-05 11:30:00 2017-04-05 11:30:00 Outpatient Martin Souza MD PA [id number] Castillo Souza MD 2017-03-07 11:57:00 2017-03-07 11:57:00 Outpatient Martin Souza MD PA [id number] Castillo Souza MD 2016-12-20 10:55:00 2016-12-20 10:55:00 Outpatient Martin Souza MD PA [id number] Castillo Souza MD 2016-11-04 11:56:00 2016-11-04 18:15:00 Day Surgery IEALT [facility] [id number] [facility] 2016-11-04 05:56:00 2016-11-04 12:15:00 Outpatient Dangelo Hand [facility] [id number] 2016-09-10 17:39:00 2016-09-10 17:39:00 Vitamin D RUTH Souza MD [id number] Castillo Souza 2016-09-10 17:39:00 2016-09-10 17:39:00 Vitamin D RUTH Souza MD [id number] Castillo Souza 2016-09-10 17:39:00 2016-09-10 17:39:00 Vitamin D RUTH Souza MD [id number] Castillo Souza 2016-09-10 17:26:00 2016-09-10 17:26:00 Labs RUTH Souza MD [id number] Castillo Souza 2016-09-10 17:26:00 2016-09-10 17:26:00 Labs RUTH Souza MD [id number] Castillo Souza 2016-09-10 17:26:00 2016-09-10 17:26:00 Labs RUTH Souza MD [id number] Castillo Souza 2016-09-10 16:30:00 2016-09-10 16:30:00 6 MTH PROLIA RUTH Souza MD [id number] Castillo Souza 2016-09-10 11:39:00 2016-09-10 11:39:00 Outpatient MD Martin De Jesus MD [id number] Castillo Souza MD 2016-09-10 11:26:00 2016-09-10 11:26:00 Outpatient MD Martin De Jesus MD [id number] Castillo Souza MD 2016-09-10 10:30:00 2016-09-10 10:30:00 Outpatient MD Martin De Jesus MD [id number] Castillo Souza MD 2016-05-06 20:34:00 2016-05-06 20:34:00 Prolia RUTH Souza MD [id number] Castillo Souza 2016-05-06 20:34:00 2016-05-06 20:34:00 Prolia RUTH Souza MD [id number] Castillo Souza 2016-05-06 20:34:00 2016-05-06 20:34:00 Prolia RUTH Souza MD [id number] Castillo Souza 2016-05-06 19:34:00 2016-05-06 19:34:00 Prolia MHIEALT Martin Souza MD [id number] Castillo Souza 2016-05-06 14:34:00 2016-05-06 14:34:00 Outpatient MD Martin De Jesus MD [id number] Castillo Souza MD 2016-03-11 16:45:00 2016-03-11 16:45:00 Unknown MHIEALT Martin Souza MD [id number] Castillo Souza 2016-03-11 16:45:00 2016-03-11 16:45:00 Unknown MHIEALT Martin Souza MD [id number] Castillo Souza 2016-03-11 16:45:00 2016-03-11 16:45:00 Unknown MHIEALT Martin Souza MD [id number] Castillo Souza 2016-03-11 15:45:00 2016-03-11 15:45:00 Unknown MHIEALT Martin Souza MD [id number] Castillo Souza 2016-03-11 15:45:00 2016-03-11 15:45:00 Unknown MHZACHALT Martin Souza MD [id number] Castillo Souza 2016-03-11 10:45:00 2016-03-11 10:45:00 Outpatient MD Martin De Jesus MD [id number] Castillo Souza MD 2016-03-03 20:18:00 2016-03-04 04:59:00 Outpt Diag Services [facility]ALT [facility] Outpatient [facility] [place] [id number] [facility] [place] 2016-03-03 15:18:00 2016-03-03 23:59:00 Outpatient Melonie Shipman MHOIB MHOIB [id number] 2016-02-25 18:39:00 2016-02-25 18:39:00 Update RUTH Souza MD [id number] Castillo Souza 2016-02-25 18:39:00 2016-02-25 18:39:00 Update RUTH Souza MD [id number] Castillo Souza 2016-02-25 18:39:00 2016-02-25 18:39:00 Update RUTH Souza MD [id number] Castillo Souza 2016-02-25 17:39:00 2016-02-25 17:39:00 Update RUTH Souza MD [id number] Castillo Souza 2016-02-25 17:39:00 2016-02-25 17:39:00 Update RUTH Souza MD [id number] Castillo Souza 2016-02-25 17:39:00 2016-02-25 17:39:00 Update RUTH Souza MD [id number] Castillo Souza 2016-02-25 12:39:00 2016-02-25 12:39:00 Outpatient MD Martin De Jesus MD [id number] Castillo Souza MD 2016-02-09 18:54:00 2016-02-09 18:54:00 Update RUTH Souza MD [id number] Castillo Souza 2016-02-09 18:54:00 2016-02-09 18:54:00 Update RUTH Souza MD [id number] Castillo Souza 2016-02-09 18:54:00 2016-02-09 18:54:00 Update RUTH Souza MD [id number] Castillo Souza 2016-02-09 17:54:00 2016-02-09 17:54:00 Update RUTH Souza MD [id number] Castillo Souza 2016-02-09 17:54:00 2016-02-09 17:54:00 Update RUTH Suoza MD [id number] Castillo Souza 2016-02-09 17:54:00 2016-02-09 17:54:00 Update RUTH Souza MD [id number] aCstillo Souza 2016-02-09 17:54:00 2016-02-09 17:54:00 Update RUTH Souza MD [id number] Castillo Souza 2016-02-09 12:54:00 2016-02-09 12:54:00 Outpatient MD Martin De Jesus MD [id number] Castillo Souza MD 2016-02-04 20:38:00 2016-02-04 20:38:00 Lab results RUTH Souza MD [id number] Castillo Souza 2016-02-04 20:38:00 2016-02-04 20:38:00 Lab results RUTH Souza MD [id number] Castillo Souza 2016-02-04 20:38:00 2016-02-04 20:38:00 Lab results RUTH Souza MD [id number] Castillo Souza 2016-02-04 19:38:00 2016-02-04 19:38:00 Lab results RUTH Souza MD [id number] Castillo Souza 2016-02-04 19:38:00 2016-02-04 19:38:00 Lab results RUTH Souza MD [id number] Castillo Souza 2016-02-04 19:38:00 2016-02-04 19:38:00 Lab results RUTH Souza MD [id number] Castillo Souza 2016-02-04 19:38:00 2016-02-04 19:38:00 Lab results RUTH Souza MD [id number] Castillo Souza 2016-02-04 19:38:00 2016-02-04 19:38:00 Lab results RUTH Souza MD [id number] Castillo Souza 2016-02-04 14:38:00 2016-02-04 14:38:00 Outpatient MD Martin De Jesus MD [id number] Castillo Souza MD 2015-11-24 10:16:00 2015-11-24 17:30:00 OBS Day Surgery [facility] [id number] [facility] 2015-11-24 05:16:00 2015-11-24 12:30:00 Outpatient Dangelo Hand [facility] [id number] 2015-08-19 20:11:00 2015-08-20 05:59:00 Outpt Diag Services [facility] Outpatient Imaging - [place] [id number] MH OPID [place] 2015-08-19 14:11:00 2015-08-19 23:59:00 Out[facility]onie Ship[id number] 2015-07-11 01:02:00 2015-07-11 01:02:00 DEXA RUTH Souza MD [id number] Castillo Souza 2015-07-11 01:02:00 2015-07-11 01:02:00 DEXA RUTH Souza MD [id number] [facility] 2015-07-11 01:02:00 2015-07-11 01:02:00 DEXA RUTH Souza MD [id number] [facility] 2015-07-11 01:02:00 2015-07-11 01:02:00 DEXA RUTH Souza MD [id number] [facility] 2015-07-11 00:02:00 2015-07-11 00:02:00 DEXA RUTH Souza MD [id number] [facility] 2015-07-11 00:02:00 2015-07-11 00:02:00 CECILLE Souza MD [id number] [facility] 2015-07-11 00:02:00 2015-07-11 00:02:00 DEXKhadar Souza MD [id number] [facility] 2015-07-11 00:02:00 2015-07-11 00:02:00 DOMENICOA RUTH Souza MD [id number] [facility] 2015-07-11 00:02:00 2015-07-11 00:02:00 DOMENICOA RUTH Souza MD [id number] [facility] 2015-07-10 19:02:00 2015-07-10 19:02:00 [facility] MD Martin De Jesus MD [id number] [facility] Souza MD 2015-06-17 21:30:00 2015-06-17 21:30:00 paris Souza MD [id number] [facility] 2015-06-17 21:30:00 2015-06-17 21:30:00 paris Souza MD [id number] [facility] 2015-06-17 21:30:00 2015-06-17 21:30:00 paris Souza MD [id number] [facility] 2015-06-17 21:30:00 2015-06-17 21:30:00 paris Souza MD [id number] [facility] 2015-06-17 20:30:00 2015-06-17 20:30:00 paris Souza MD [id number] [facility] 2015-06-17 20:30:00 2015-06-17 20:30:00 paris Souza MD [id number] [facility] 2015-06-17 20:30:00 2015-06-17 20:30:00 paris Souza MD [id number] [facility] 2015-06-17 20:30:00 2015-06-17 20:30:00 paris Souza MD [id number] [facility] 2015-06-17 20:30:00 2015-06-17 20:30:00 paris Souza MD [id number] [facility] 2015-06-13 16:00:00 2015-06-13 16:00:00 6m fu RUTH Souza MD [id number] [facility] 2015-06-13 16:00:00 2015-06-13 16:00:00 6m fu RUTH Souza MD [id number] [facility] 2015-06-13 16:00:00 2015-06-13 16:00:00 6m fu RUTH Souza MD [id number] [facility] 2015-06-13 16:00:00 2015-06-13 16:00:00 6m fu RUTH Souza MD [id number] [facility] 2015-06-13 15:00:00 2015-06-13 15:00:00 6m fu RUTH Souza MD [id number] [facility] 2015-06-13 15:00:00 2015-06-13 15:00:00 6m fu RUTH Souza MD [id number] Castillo Souza 2015-06-13 15:00:00 2015-06-13 15:00:00 6m fu RUTH Souza MD [id number] Castillo Souza 2015-06-13 15:00:00 2015-06-13 15:00:00 6m fu RUTH Souza MD [id number] Castillo Souza 2015-06-13 15:00:00 2015-06-13 15:00:00 6m fu RUTH Souza MD [id number] Castillo Souza 2015-03-24 14:18:00 2015-03-24 20:40:00 [facility] [id number] [facility] 2015-03-24 09:18:00 2015-03-24 15:40:00 Outpatient Dangelo Hand [facility] [id number] 2015-01-23 16:15:00 2015-01-23 16:15:00 Appointment RUTH Souza MD [id number] Cast[facility] Souza 2015-01-23 16:15:00 2015-01-23 16:15:00 Appointment RUTH Souza MD [id number] Castillo Souza 2015-01-23 16:15:00 2015-01-23 16:15:00 Appointment RUTH Souza MD [id number] [facility] Souza 2015-01-23 16:15:00 2015-01-23 16:15:00 Appointment RUTH Souza MD [id number] Cast[facility] Souza 2015-01-23 15:15:00 2015-01-23 15:15:00 Appointment RUTH Souza MD [id number] [facility] Souza 2015-01-23 15:15:00 2015-01-23 15:15:00 Appointment RUTH Souza MD [id number] Cast[facility] Souza 2015-01-23 15:15:00 2015-01-23 15:15:00 Appointment RUTH Souza MD [id number] Castillo Souza 2015-01-23 15:15:00 2015-01-23 15:15:00 Appointment RUTH Souza MD [id number] Castillo Souza 2015-01-23 15:15:00 2015-01-23 15:15:00 Appointment RUTH Souza MD [id number] Castillo Souza 2014-12-31 16:43:00 2014-12-31 16:43:00 Prolia RUTH Souza MD [id number] [facility] Souza 2014-12-31 16:43:00 2014-12-31 16:43:00 Prolia RUTH Souza MD [id number] Cast[facility] Souza 2014-12-31 16:43:00 2014-12-31 16:43:00 Prolia RUTH Souza MD [id number] [facility] Souza 2014-12-31 16:43:00 2014-12-31 16:43:00 Prolia RUTH Souza MD [id number] [facility] Sou[facility] 2014-12-31 15:43:00 2014-12-31 15:43:00 Prolia RUTH Souza MD [id number] [facility] Souza 2014-12-31 15:43:00 2014-12-31 15:43:00 Prolia RUTH Souza MD [id number] Cast[facility] Souza 2014-12-31 15:43:00 2014-12-31 15:43:00 Prolia RUTH Souza MD [id number] Castillo Souza 2014-12-31 15:43:00 2014-12-31 15:43:00 Catalino Souza MD [id number] [facility] Souza 2014-12-31 15:43:00 2014-12-31 15:43:00 Prolia RUTH Souza MD [id number] Castillo Suoza 2014-12-31 15:43:00 2014-12-31 15:43:00 Taoia RUHT Souza MD [id number] [facility] Souza 2014-12-31 15:43:00 2014-12-31 15:43:00 Prolia RUTH Souza MD [id number] Cast[facility] Souza 2014-12-31 10:43:00 2014-12-31 10:43:00 [facility] MD Martin De Jesus MD [id number] Castillo Souza MD 2014-12-20 20:20:00 2014-12-20 20:20:00 Prolia RUTH Souza MD [id number] Castillo Souza 2014-12-20 20:20:00 2014-12-20 20:20:00 Prolia RUTH Souza MD [id number] Cast[facility] Souza 2014-12-20 20:20:00 2014-12-20 20:20:00 Prolia RUTH Souza MD [id number] [facility] Souza 2014-12-20 20:20:00 2014-12-20 20:20:00 Taoia RUTH Souza MD [id number] Cast[facility] Souza 2014-12-20 19:20:00 2014-12-20 19:20:00 Prolia RUTH Souza MD [id number] Cast[facility] Souza 2014-12-20 19:20:00 2014-12-20 19:20:00 Prolia RUTH Souza MD [id number] Cast[facility] Souza 2014-12-20 19:20:00 2014-12-20 19:20:00 Prolia RUTH Souza MD [id number] [facility] Souza 2014-12-20 19:20:00 2014-12-20 19:20:00 Prolia RUTH Souza MD [id number] Castillo Souza 2014-12-20 19:20:00 2014-12-20 19:20:00 Prolia RUTH Souza MD [id number] [facility] Souza 2014-12-20 19:20:00 2014-12-20 19:20:00 Prolia RUTH Souza MD [id number] [facility] Souza 2014-12-20 19:20:00 2014-12-20 19:20:00 Prolia RUTH Souza MD [id number] [facility] Souza 2014-12-18 16:40:00 2014-12-18 16:40:00 MRI RUTH Souza MD [id number] [facility] Souza 2014-12-18 16:40:00 2014-12-18 16:40:00 MRI RUTH Souza MD [id number] [facility] 2014-12-18 16:40:00 2014-12-18 16:40:00 MRI RUTH Souza MD [id number] [facility] Souza 2014-12-18 16:40:00 2014-12-18 16:40:00 MRI RUTH Souza MD [id number] [facility] Souza 2014-12-18 15:40:00 2014-12-18 15:40:00 MRI RUTH Souza MD [id number] [facility] Souza 2014-12-18 15:40:00 2014-12-18 15:40:00 MRI RUTH Souza MD [id number] Cast[facility] Souza 2014-12-18 15:40:00 2014-12-18 15:40:00 MRI RUTH Souza MD [id number] [facility] Souza 2014-12-18 15:40:00 2014-12-18 15:40:00 MRI RUTH Souza MD [id number] [facility] Souza 2014-12-18 15:40:00 2014-12-18 15:40:00 MRI RUTH Souza MD [id number] Cast[facility] Souza 2014-12-18 15:40:00 2014-12-18 15:40:00 MRI RUTH Souza MD [id number] Cast[facility] Souza 2014-12-18 15:40:00 2014-12-18 15:40:00 MRI RUTH Souza MD [id number] Castillo Souza 2014-12-12 16:00:00 2014-12-12 16:00:00 6m fu RUTH Souza MD [id number] [facility] Souza 2014-12-12 16:00:00 2014-12-12 16:00:00 6m fu RUTH Souza MD [id number] [facility] Souza 2014-12-12 16:00:00 2014-12-12 16:00:00 6m fu RUTH Souza MD [id number] [facility] Souza 2014-12-12 16:00:00 2014-12-12 16:00:00 6m fu RUTH Souza MD [id number] [facility] Souza 2014-12-12 15:00:00 2014-12-12 15:00:00 6m fu RUTH Souza MD [id number] [facility] Souza 2014-12-12 15:00:00 2014-12-12 15:00:00 6m fu RUTH Souza MD [id number] [facility] Souza 2014-12-12 15:00:00 2014-12-12 15:00:00 6m fu RUTH Souza MD [id number] [facility] Souza 2014-12-12 15:00:00 2014-12-12 15:00:00 6m fu RUTH Souza MD [id number] [facility] Souza 2014-12-12 15:00:00 2014-12-12 15:00:00 6m fu RUTH Souza MD [id number] [facility] Souza 2014-12-12 15:00:00 2014-12-12 15:00:00 6m fu RUTH Souza MD [id number] [facility]za 2014-12-12 15:00:00 2014-12-12 15:00:00 6m fu MHIEALT Martin Souza MD [id number] Cast[facility] Souza 2014-12-12 10:00:00 2014-12-12 10:00:00 [facility] MD Martin De Jesus MD [id number] Castillo Souza MD 2014-12-06 15:30:00 2014-12-06 15:30:00 [facility] IEALT Martin Souza MD [id number] Castillo Souza 2014-12-06 15:30:00 2014-12-06 15:30:00 [facility] ZACHALT Martin Souza MD [id number] Castillo Souza 2014-12-06 15:30:00 2014-12-06 15:30:00 [facility] IEALT Martin Souza MD [id number] Castillo Souza 2014-12-06 15:30:00 2014-12-06 15:30:00 [facility] ZACHALT Martin Souza MD [id number] Cast[facility] Souza 2014-12-06 14:30:00 2014-12-06 14:30:00 MRI [facility] IEALT Martin Souza MD [id number] Castillo Souza 2014-12-06 14:30:00 2014-12-06 14:30:00 MRI [facility] IEALT Martin Souza MD [id number] [facility] Souza 2014-12-06 14:30:00 2014-12-06 14:30:00 MRI [facility] IEALT Martin Souza MD [id number] Cast[facility] Souza 2014-12-06 14:30:00 2014-12-06 14:30:00 MRI [facility] Hands RUTH Souza MD [id number] Castillo Souza 2014-12-06 14:30:00 2014-12-06 14:30:00 MRI [facility] RUTH Souza MD [id number] Cast[facility] Souza 2014-12-06 14:30:00 2014-12-06 14:30:00 MRI [facility] RUTH Souza MD [id number] Cast[facility] Souza 2014-12-06 14:30:00 2014-12-06 14:30:00 MRI [facility] RUTH Souza MD [id number] Castillo Souza 2014-06-13 15:15:00 2014-06-13 15:15:00 6m fu RUTH Souza MD [id number] Castillo Souza 2014-06-13 15:15:00 2014-06-13 15:15:00 6m fu RUTH Souza MD [id number] Cast[facility] Souza 2014-06-13 15:15:00 2014-06-13 15:15:00 6m fu RUTH Souza MD [id number] Cast[facility] Souza 2014-06-13 15:15:00 2014-06-13 15:15:00 6m fu RUTH Souza MD [id number] Cast[facility] Souza 2014-06-13 15:15:00 2014-06-13 15:15:00 6m fu RUTH Souza MD [id number] [facility] Souza 2014-06-13 14:15:00 2014-06-13 14:15:00 6m fu RUTH Souza MD [id number] [facility] Souza 2014-06-13 14:15:00 2014-06-13 14:15:00 6m fu RUTH Souza MD [id number] [facility] Souza 2014-06-13 14:15:00 2014-06-13 14:15:00 6m fu RUTH Souza MD [id number] [facility] Souza 2014-06-13 14:15:00 2014-06-13 14:15:00 6m fu RUTH Souza MD [id number] [facility] Souza 2014-06-13 14:15:00 2014-06-13 14:15:00 6m fu RUTH Souza MD [id number] Cast[facility] Souza 2014-06-13 14:15:00 2014-06-13 14:15:00 6m fu RUTH Souza MD [id number] [facility] Souza 2014-06-13 14:15:00 2014-06-13 14:15:00 6m fu RUTH Souza MD [id number] [facility] Souza 2014-06-13 09:15:00 2014-06-13 09:15:00 Outpatient MD Martin De Jesus MD [id number] Castillo Souza MD 2014-05-01 14:00:00 2014-01-03 19:04:04 FUP, Provider: RODNEY WHEAT, Status: Pen, Time: 2:00 PM MHIEALT MHIEALT [id number] [facility] Phy s[facility] 2014-01-03 14:04:05 2014-01-03 19:04:04 AUDIT MHIEALT MHIEALT [id number] [facility] Physicians 2014-01-03 14:04:05 2014-01-03 14:04:04 Outpatient MHIEA LT MHIEALT [id number] 2013-12-12 16:30:00 2013-12-12 16:30:00 6m fu MHIEALT Martin Souza MD [id number] Cast[facility] Souza 2013-12-12 16:30:00 2013-12-12 16:30:00 6m fu MHIEALT Martin Souza MD [id number] Castillo Souza 2013-12-12 16:30:00 2013-12-12 16:30:00 6m fu MHIEALT Martin Souza MD [id number] Castillo Souza 2013-12-12 16:30:00 2013-12-12 16:30:00 6m fu MHIEALT Martin Souza MD [id number] Castillo Souza 2013-12-12 16:30:00 2013-12-12 16:30:00 6m fu MHIEALT Martin Souza MD [id number] Castillo Souza 2013-12-12 15:30:00 2013-12-12 15:30:00 6m fu MHIEALT Martin Souza MD [id number] Castillo Souza 2013-12-12 15:30:00 2013-12-12 15:30:00 6m fu RUTH Souza MD [id number] Castillo Souza 2013-12-12 15:30:00 2013-12-12 15:30:00 6m fu RUTH Souza MD [id number] Castillo Souza 2013-12-12 15:30:00 2013-12-12 15:30:00 6m fu RUTH Souza MD [id number] [facility] Souza 2013-12-12 15:30:00 2013-12-12 15:30:00 6m fu RUTH Souza MD [id number] Cast[facility] Souza 2013-12-12 15:30:00 2013-12-12 15:30:00 6m fu RUTH Souza MD [id number] Cast[facility] Souza 2013-12-12 15:30:00 2013-12-12 15:30:00 6m fu RUTH Souza MD [id number] Cast[facility] Souza 2013-12-12 15:30:00 2013-12-12 15:30:00 6m fu RUTH Souza MD [id number] Cast[facility] Souza 2013-12-12 10:30:00 2013-12-12 10:30:00 [facility] MD Martin De Jesus MD [id number] Castillo Souza MD 2014-01-03 12:45:00 2013-11-08 13:32:05 FUP, Provider: RODNEY WHEAT, Status: Pen, Time: 12:45 PM [facility]IEALT MHIEALT [id number] [facility] 2013-11-08 08:32:06 2013-11-08 13:32:05 AUDIT MHIEALT MHIEALT [id number] [facility] Physicians 2013-11-08 08:32:06 2013-11-08 08:32:05 Outpatient MHIEA LT MHIEALT [id number] 2013-11-06 15:34:17 2013-11-06 20:34:17 AUDIT MHIEALT MHIEALT [id number] [facility] 2013-11-06 15:34:17 2013-11-06 15:34:17 Outpatient MHIEA LT MHIEALT [id number] 2013-11-06 14:15:00 2013-10-25 15:32:03 FUP, Provider: RODNEY WHEAT, Status: Ryan, Time: 2:15 PM MHIEALT MHIEALT [id number] [facility] 2013-10-25 09:32:03 2013-10-25 15:32:03 AUDIT MHIEALT MHIEALT [id number] [facility] 2013-10-25 09:32:03 2013-10-25 09:32:03 Outpatient MHIEA LT MHIEALT [id number] 2013-10-09 14:37:29 2013-10-09 20:37:28 AUDIT MHIEALT MHIEALT [id number] [facility] 2013-10-09 14:37:29 2013-10-09 14:37:28 Outpatient MHIEA LT MHIEALT [id number] 2013-10-09 14:15:00 2013-08-16 15:31:37 FUP, Provider: RODNEY WHEAT, Status: Pen, Time: 2:15 PM MHIEALT MHIEALT [id number] [facility] 2013-09-05 14:15:00 2013-08-16 15:31:37 FUP, Provider: RODNEY WHEAT, Status: Pen, Time: 2:15 PM MHIEALT MHIEALT [id number] [facility] 2013-08-16 09:31:38 2013-08-16 15:31:37 AUDIT MHIEALT MHIEALT [id number] [facility] 2013-08-16 09:31:38 2013-08-16 09:31:37 Outpatient MHIEA LT MHIEALT [id number] 2013-08-09 14:33:17 2013-08-09 20:33:17 AUDIT MHIEALT MHIEALT [id number] [facility] 2013-08-09 14:33:17 2013-08-09 14:33:17 Outpatient MHIEA LT MHIEALT [id number] 2013-08-09 12:15:00 2013-07-12 19:01:33 FUP, Provider: RODNEY WHEAT, Status: Pen, Time: 12:15 PM MHIEALT MHIEALT [id number] OR Ph ysicians 2013-07-12 13:01:33 2013-07-12 19:01:33 AUDIT MHIEALT MHIEALT [id number] [facility] 2013-07-12 13:01:33 2013-07-12 13:01:33 Outpatient MHIEA LT MHIEALT [id number] 2013-06-18 11:04:20 2013-06-18 16:04:19 AUDIT MHIEALT MHIEALT [id number] [facility] 2013-06-18 11:04:20 2013-06-18 11:04:19 Outpatient MHIEA LT MHIEALT [id number] 2013-06-07 11:45:00 2013-06-04 15:02:02 FUP, Provider: RODNEY WHEAT, Status: Pen, Time: 11:45 AM MHIEALT MHIEALT [id number] [facility] Ph ysicians 2013-06-04 10:02:03 2013-06-04 15:02:02 AUDIT MHIEALT MHIEALT [id number] [facility] 2013-06-04 10:02:03 2013-06-04 10:02:02 Outpatient MHIEA LT MHIEALT [id number] 2013-05-29 10:32:01 2013-05-29 15:32:01 AUDIT MHIEALT MHIEALT [id number] [facility] 2013-05-29 10:32:01 2013-05-29 10:32:01 Outpatient MHIEA MHIEALT [id number] Results Test Description Test Time Test Comments Results Result Comments Source CHEST SINGLE (PORTABLE) 2020-01-27 13:39:00 [place] [address] Patient Name: MIGUEL FONTENOT MR #: [id number] : 1935 Age/Sex: 84/F Req #: [id number] Adm Physician: Ordered by: VADIM MUNOZ Report #: [id number] Location: ER Room/Bed: Procedure: [id number] DX/CHEST SINGLE (PORTABLE) Exam Date: 01/27/20 Exam Time: 1244 REPORT STATUS: Signed EXAMINATION: CHEST SINGLE (PORTABLE) INDICATION: tia COMPARISON: Chest radiograph 10/05/2019. FINDINGS: TUBES and LINES: None. LUNGS: Lungs are well inflated. Calcified granulomas in the right lung. Mild patchy left basilar o pacity, likely atelectasis. No evidence of lobar consolidation or pulmonary edema. PLEURA: No pleural effusion or pneumothorax. HEART AND MEDIASTINUM: The cardiomediastinal silhouette is unremarkable. There are atherosclerotic calcifications within the aorta. BONES AND SOFT TISSUES: No acute osseous lesion. Soft tissues are unremarkable. UPPER ABDOMEN: No free air under the diaphragm. IMPRESSION: Mild patchy left basilar opacity, likely atelectasis. Infection is possible in the appropriate clinical setting. Signed by: Dr. Jazmyn Andres MD on 01/27/2020 1:44 PM Dictated By: JAZMYN ANDRES MD 1344 Transcribed By: YAQUELIN on 01/27/20 1344 COPY TO: VADIM MUNOZ CT BRAIN WO 2020-01-27 13:34:00 [facility] [address] [address] Patient Name: MIGUEL FONTENOT MR #: [id number] : 1935 Age/Sex: 84/F Req #: [id number] Adm Physician: Ordered by: VADIM MUNOZ Report #: [id number] Location: ER Room/Bed: Procedure: [id number] CT/CT BRAIN WO Exam Date: 01/27/20 Exam Time: 1247 REPORT STATUS: Signed History:Weakness in right arm. Comparison studies:CT head 10/05/2019 Technique: Axial images were obtained from the skull base to the vertex. Coronal and sagittal images reconstructed from the axial data. Intravenous contrast: None Dose modulation, iterative reconstruction, and/or weight based adjustment of the mA/kV was utilized to reduce the radiation dose to as low as reasonably achievable. Findings: Scalp/skull: No abnormalities. Extra-axial spaces: No masses. No fluid collections. Brain sulci: Mildly prominent. Ventricles: Mild compensatory dilatation. No hydrocephalus. Parenchyma: Subcentimeter hypodensity with associated volume loss at the right frontal deep white matter, not seen on previous exam, secondary to chronic lacunar infarct. Other small hypodensities in the supratentorial white matter are small vessel ischemic changes. No masses, hemorrhage, acute or chronic cortical vascular insults. Sellar/suprasellar region: No abnormalities. Craniocervical junction: Patent foramen magnum. No Chiari one malformation. Incidental findings: Atherosclerotic calcifications in the carotid siphons and vertebral arteries . Impression: No acute abnormalities. Chronic findings: 1. Mild generalized volume loss. 2. Mild supratentorial white matter small vessel ischemic changes. 3. Chronic lacunar infarct at the left frontal centrum semiovale, not seen on previous exam. Signed by: DR Severiano Weeks M.D. on 01/27/2020 1:44 PM Dictated By: SEVERIANO DE LA ROSA MD 1344 Transcribed By: YAQUELIN on 01/27/20 1344 COPY TO: VADIM MUNOZ Serum or plasma sodium measurement (moles/volume) 2020-01-27 12:30:00 Test Item Sodium Level (test code = 2951-2) 141 136-145 [facility]/volume[facility]2020-01-27 12:30:00* Test Item Value Reference Range Interpretation Comments Potassium Level (test code = 2823-3) 4.3 3.5-5.1 [facility] chloride measurement (moles/volume)2020-01-27 12:30:00* Test Item Value Reference Range Interpretation Comments Chloride Level (test code = 2075-0) 110 98-107 [facility] carbon dioxide, total measurement (moles/volume)2020-01-27 12:30:00* Test Item Value Reference Range Interpretation Comments Carbon Dioxide Level (test code = 2028-9) 19 22-29 [facility] anion mno0895-72-14 12:30:00* Test Item Value Reference Range Interpretation Comments Anion Gap (test code = 07839-7) 16.3 8-16 [facility] urea nitrogen measurement (mass/volume)2020-01-27 12:30:00* Test Item Value Reference Range Interpretation Comments Blood Urea Nitrogen (test code = 3094-0) 34 7-26 [facility] creatinine measurement (mass/volume)2020-01-27 12:30:00* Test Item Value Reference Range Interpretation Comments Creatinine (test code = 2160-0) 7.08 0.57-1.11 [facility] urea nitrogen/creatinine mass lwoer0527-50-38 12:30:00* Test Item Value Reference Range Interpretation Comments BUN/Creatinine Ratio (test code = 3097-3) 5 6-25 [facility]ie[facility]ated glomerular filtration rate (GFR) iqcjhtbetwinh6610-07-97 12:30:00* Test Item Value Reference Range Interpretation Comments Estimat Glomerular Filtration Rate (test code = 475372682) 6 >60 Ranges were taken from the National Kidney Disease Education Program and the [facility] literature.Reference ranges:60 or greater: Omicrw25-31 ( for 3 consecutive months): Chronic kidney disease 15 or less: Kidney failureB[facility] & [facility] WaxahachieGlucose [id number] 12:30:00* Test Item Value Reference Range Interpretation Comments Glucose Level (test code = QEK0065) 108 74-118 [facility] calcium measurement (mass/volume)2020-01-27 12:30:00* Test Item Value Reference Range Interpretation Comments Calcium Level (test code = 64007-1) 10.9 8.4-10.2 [facility] magnesium measurement (mass/volume)2020-01-27 12:30:00* Test Item Value Reference Range Interpretation Comments Magnesium Level (test code = 34940-8) 1.9 1.3-2.1 [facility] total bilirubin measurement (mass/volume)2020-01-27 12:30:00* Test Item Value Reference Range Interpretation Comments Total Bilirubin (test code = 1975-2) 0.3 0.2-1.2 [facility]ieFluoroscopic procedure less than one hour [id number] 12:30:00* Test Item Value Reference Range Interpretation Comments Aspartate Amino Transf (AST/SGOT) (test code = Aspartate Amino Transf (AST/SGOT)) 14 5-34 [facility] alanine aminotransferase measurement (enzymatic activity/volume)2020-01-27 12:30:00* Test Item Value Reference Range Interpretation Comments Alanine Aminotransferase (ALT/SGPT) (test code = 1742-6) 15 0-55 [facility] protein measurement (mass/volume)2020-01-27 12:30:00* Test Item Value Reference Range Interpretation Comments Total Protein (test code = 2885-2) 6.7 6.5-8.1 [facility]ere[facility] albumin measurement (mass/volume)2020-01-27 12:30:00* Test Item Value Reference Range Interpretation Comments Albumin (test code = 1751-7) 2.8 3.5-5.0 [facility]iePlasma globulin measurement (mass/volume) 2020-01-27 12:30:00* Test Item Value Reference Range Interpretation Comments Globulin (test code = 68483-3) 3.9 2.3-3.5 [facility] albumin/globulin mass [id number] 12:30:00* Test Item Value Reference Range Interpretation Comments Albumin/Globulin Ratio (test code = 1759-0) 0.7 0.8-2.0 [facility] alkaline phosphatase measurement (enzymatic activity/volume)2020-01-27 12:30:00* Test Item Value Reference Range Interpretation Comments Alkaline Phosphatase (test code = 6768-6) 95 40-150 [facility] creatine kinase measurement (enzymatic activity/volume)2020-01-27 12:30:00* Test Item Value Reference Range Interpretation Comments Creatine Kinase (test code = 2157-6) 36 29-168 [facility] plasma creatine kinase MB measurement (mass/volume)2020-01-27 12:30:00* Test Item Value Reference Range Interpretation Comments Creatine Kinase MB (test code = 08271-0) 1.30 0-5.0 [facility]ieTroponin I measurement by highly sensitive enzyme [id number] 12:30:00* Test Item Value Reference Range Interpretation Comments Troponin I (test code = 47842-4) 0.496 0-0.300 [facility]ieBlood leukocytes automated count (number/volume)2020-01-27 11:55:00* Test Item Value Reference Range Interpretation Comments White Blood Count (test code = 6690-2) 5.35 4.8-10.8 [facility]ieBlood erythrocytes automated count (number/volume)2020-01-27 11:55:00* Test Item Value Reference Range Interpretation Comments Red Blood Count (test code = 789-8) 5.52 3.6-5.1 [facility]ieBlood hemoglobin measurement (moles/volume)2020-01-27 11:55:00* Test Item Value Reference Range Interpretation Comments Hemoglobin (test code = 15903-8) 16.5 12.0-16.0 [facility]ieAutomated blood hematocrit (volume fraction)2020-01-27 11:55:00* Test Item Value Reference Range Interpretation Comments Hematocrit (test code = 4544-3) 53.1 34.2-44.1 [facility]ieAutomated erythrocyte mean corpuscular [id number] 11:55:00* Test Item Value Reference Range Interpretation Comments Mean Corpuscular Volume (test code = 787-2) 96.2 81-99 [facility]ieAutomated erythrocyte mean corpuscular hemoglobin (mass per erythrocyte)2020-01-27 11:55:00* Test Item Value Reference Range Interpretation Comments Mean Corpuscular Hemoglobin (test code = 785-6) 29.9 28-32 [facility]achieAutomated erythrocyte mean corpuscular hemoglobin concentration measurement (mass/volume)2020-01-27 11:55:00* Test Item Value Reference Range Interpretation Comments Mean Corpuscular Hemoglobin Concent (test code = 786-4) 31.1 31-35 [facility] FpqZo-Ess4537-64-31 11:55:00* Test Item Value Reference Range Interpretation Comments Red Cell Distribution Width (test code = 54141-4) 13.7 11.7 -14.4 [facility]achieAutomated blood platelet count (count/volume)2020-01-27 11:55:00* Test Item Value Reference Range Interpretation Comments Platelet Count (test code = 777-3) 87 140-360 NO CLOTThis test has been rerun and double checked for accuracy.[facility]achieAutomated blood segmented neutrophil count as percentage of total qualtwbkvx1176-35-02 11:55:00* Test Item Value Reference Range Interpretation Comments Neutrophils (%) (Auto) (test code = 99710-2) 69.1 38.7-80.0 [facility]achieAutomated blood lymphocyte count as percentage ot total edfhfcjtat5353-10-45 11:55:00* Test Item Value Reference Range Interpretation Comments Lymphocytes (%) (Auto) (test code = 736-9) 14.4 18.0-39.1 [facility]ieAutomated blood monocyte count as percentage of total ciajnmoyfl5902-12-48 11:55:00* Test Item Value Reference Range Interpretation Comments Monocytes (%) (Auto) (test code = 5905-5) 11.2 4.4-11.3 [facility]ieAutomated blood eosinophil count as percentage of total gvghmtcmka7225-32-49 11:55:00* Test Item Value Reference Range Interpretation Comments Eosinophils (%) (Auto) (test code = 713-8) 4.5 0.0-6.0 [facility]ieAutomated blood basophil count as percentage of total hwggzkgchx2742-67-83 11:55:00* Test Item Value Reference Range Interpretation Comments Basophils (%) (Auto) (test code = 706-2) 0.6 0.0-1.0 [facility]achieFluoroscopic procedure less than one hour jirbahdc5054-76-70 11:55:00* Test Item Value Reference Range Interpretation Comments IM GRANULOCYTES % (test code = IM GRANULOCYTES %) 0.2 0.0- 1.0 [facility]achieAutomated blood neutrophil count 2020-01-27 11:55:00* Test Item Value Reference Range Interpretation Comments Neutrophils # (Auto) (test code = 751-8) 3.7 2.1-6.9 [facility]ieBlood lymphocytes count (number/volume) 2020-01-27 11:55:00* Test Item Value Reference Range Interpretation Comments Lymphocytes # (Auto) (test code = 42180-8) 0.8 1.0-3.2 [facility]ieB[facility] monocytes automated count (number/volume)2020-01-27 11:55:00* Test Item Value Reference Range Interpretation Comments Monocytes # (Auto) (test code = 742-7) 0.6 0.2-0.8 [facility]ieAutomated blood eosinophil count 2020-01-27 11:55:00* Test Item Value Reference Range Interpretation Comments Eosinophils # (Auto) (test code = 711-2) 0.2 0.0-0.4 [facility]ieAutomated blood basophil count (count/volume)2020-01-27 11:55:00* Test Item Value Reference Range Interpretation Comments Basophils # (Auto) (test code = 704-7) 0.0 0.0-0.1 [facility]ieFluoroscopic procedure less than one hour mhqspawl6800-68-91 11:55:00* Test Item Value Reference Range Interpretation Comments Absolute Immature Granulocyte (auto (karo t code = Absolute Immature Granulocyte (auto) 0.01 0-0.1 [facility]ieB-Type Natriuretic Dogjuzn0809-02-24 12:05:00* Test Item Value Reference Range Interpretation Comments B-Type Natriuretic Peptide (test code = 58401-0) 199.4 0-100 H [facility]achieCreatine Kinase TY7390-35-63 12:04:00* Test Item Value Reference Range Interpretation Comments Creatine Kinase MB (test code = 87878-6) 1.10 0-5.0 [facility]ieTroponin C1099-61-90 12:04:00* Test Item Value Reference Range Interpretation Comments Troponin I (test code = HPD3592) 0.021 0-0.300 [facility]odium Pvknf3633-85-35 11:58:00* Test Item Value Reference Range Interpretation Comments Sodium Level (test code = 2951-2) 142 136-145 [facility]iePotassium Ecdbx4037-37-90 11:58:00* Test Item Value Reference Range Interpretation Comments Potassium Level (test code = 2823-3) 3.9 3.5-5.1 [facility]ieChloride Wfcer6543-68-31 11:58:00* Test Item Value Reference Range Interpretation Comments Chloride Level (test code = 2075-0) 105 98-107 [facility]achieCarbon Dioxide Xflmj9274-52-00 11:58:00* Test Item Value Reference Range Interpretation Comments Carbon Dioxide Level (test code = 2028-9) 23 22-29 [facility] W[facility]achieAnion Yoh5081-70-60 11:58:00* Test Item Value Reference Range Interpretation Comments Anion Gap (test code = 06637-5) 17.9 8-16 H [facility]ieBlood Urea Zigqbjfo7130-17-26 11:58:00* Test Item Value Reference Range Interpretation Comments Blood Urea Nitrogen (test code = 3094-0) 37 7-26 H [facility]ieCreatinine2020-02-07 11:58:00* Test Item Value Reference Range Interpretation Comments Creatinine (test code = 2160-0) 6.64 0.57-1.11 H [facility]ieBUN/Creatinine Seexy9536-81-25 11:58:00* Test Item Value Reference Range Interpretation Comments BUN/Creatinine Ratio (test code = 3097-3) 6 6-25 [facility]achieEstimat Glomerular Filtration Rate 2019-10-05 11:58:00* Test Item Value Reference Range Interpretation Comments Estimat Glomerular Filtration Rate (test code = 600988514) 6 >60 L Ranges were taken from the National Kidney Disease Education Program and the [facility] Kidney Foundation literature.Reference ranges:60 or greater: Pdxluh87-68 ( for 3 consecutive months): Chronic kidney disease 15 or less: Kidney failureBaylor Scott & [facility] Center – WaxahachieGlucose Rthyr3780-43-23 11:58:00* Test Item Value Reference Range Interpretation Comments Glucose Level (test code = RON3107) 117 74-118 [facility]achieCalcium Hchcn5596-73-41 11:58:00* Test Item Value Reference Range Interpretation Comments Calcium Level (test code = 56207-7) 9.5 8.4-10.2 [facility]ieTotal Nlccajowb3481-71-91 11:58:00* Test Item Value Reference Range Interpretation Comments Total Bilirubin (test code = 1975-2) 0.5 0.2-1.2 [facility]achieAspartate Amino Transf (AST/SGOT) 2019-10-05 11:58:00* Test Item Value Reference Range Interpretation Comments Aspartate Amino Transf (AST/SGOT) (test code = Aspartate Amino Transf (AST/SGOT)) 15 5-34 [facility]achieAlanine Aminotransferase (ALT/SGPT) 2019-10-05 11:58:00* Test Item Value Reference Range Interpretation Comments Alanine Aminotransferase (ALT/SGPT) (test code = 1742-6) 10 0-55 [facility]achieTotal Yoszwch8155-04-74 11:58:00* Test Item Value Reference Range Interpretation Comments Total Protein (test code = 2885-2) 7.0 6.5-8.1 [facility]achieAlbumin2020-02-07 11:58:00* Test Item Value Reference Range Interpretation Comments Albumin (test code = 1751-7) 3.3 3.5-5.0 L [facility] WaxahachieGlobulin2020-02-07 11:58:00* Test Item Value Reference Range Interpretation Comments Globulin (test code = 31393-7) 3.7 2.3-3.5 H [facility]achieAlbumin/Globulin Zbjrp9020-41-00 11:58:00 * Test Item Value Reference Range Interpretation Comments Albumin/Globulin Ratio (test code = 1759-0) 0.9 0.8-2.0 [facility]achieAlkaline Vokqozzkbsn2909-51-08 11:58:00* Test Item Value Reference Range Interpretation Comments Alkaline Phosphatase (test code = 6768-6) 108 40-150 [facility]achieCreatine Tctjfg3352-59-81 11:58:00* Test Item Value Reference Range Interpretation Comments Creatine Kinase (test code = 2157-6) 33 29-168 [facility]achieProthrombin Hqwp1078-51-50 11:50:00* Test Item Value Reference Range Interpretation Comments Prothrombin Time (test code = 5902-2) 14.2 11.9-14.5 [facility] Wax[facility]achieProthromb Time International Ratio 2019-10-05 11:50:00* Test Item Value Reference Range Interpretation Comments Prothromb Time International Ratio (test code = 6301-6) 1.04 Oral Anticoagulant Therapy INR Values:1. Low Intensity Therapy 1.5 - 2.02 . Moderate Intensity Therapy 2.0 - 3.03. High Intensity Therapy(1) 2.5 - 3. 54. High Intensity Therapy(2) 3.0 - 4.05. Panic Value INR > 5.0 [facility]achieActivated Partial Thromboplast Time 2019-10-05 11:50:00* Test Item Value Reference Range Interpretation Comments Activated Partial Thromboplast Time (test code = 07013-9) 31.2 23.8-35.5 [facility]achieWhite Blood Sugbf6904-49-55 11:38:00* Test Item Value Reference Range Interpretation Comments White Blood Count (test code = 6690-2) 7.09 4.8-10.8 [facility] W[facility]achieRed Blood Wzvue5262-35-69 11:38:00* Test Item Value Reference Range Interpretation Comments Red Blood Count (test code = 789-8) 4.87 3.6-5.1 [facility]ieHemoglobin2020-02-07 11:38:00* Test Item Value Reference Range Interpretation Comments Hemoglobin (test code = 24508-4) 14.1 12.0-16.0 [facility]achieHematocrit2020-02-07 11:38:00* Test Item Value Reference Range Interpretation Comments Hematocrit (test code = 4544-3) 43.8 34.2-44.1 [facility] WaxahachieMean Corpuscular Sylgig4644-49-96 11:38:00* Test Item Value Reference Range Interpretation Comments Mean Corpuscular Volume (test code = 787-2) 89.9 81-99 [facility] W[facility]achieMean Corpuscular Wgxlftzieg9513-51-66 11:38:00* Test Item Value Reference Range Interpretation Comments Mean Corpuscular Hemoglobin (test code = 785-6) 29.0 28-32 [facility] WaxahachieMean Corpuscular Hemoglobin Concent 2019-10-05 11:38:00* Test Item Value Reference Range Interpretation Comments Mean Corpuscular Hemoglobin Concent (test code = 786-4) 32.2 31-35 [facility] Wax[facility]achieRed Cell Distribution Kdrcg1263-94-62 11:38:00* Test Item Value Reference Range Interpretation Comments Red Cell Distribution Width (test code = 51954-5) 13.6 11.7 -14.4 [facility] WaxahachiePlatelet Obkbc4333-33-60 11:38:00* Test Item Value Reference Range Interpretation Comments Platelet Count (test code = 777-3) 112 140-360 L [facility] WaxahachieNeutrophils (%) (Auto)2019-10-05 11:38:00 * Test Item Value Reference Range Interpretation Comments Neutrophils (%) (Auto) (test code = 01188-1) 73.5 38.7-80.0 [facility] Wax[facility]achieLymphocytes (%) (Auto)2019-10-05 11:38:00 * Test Item Value Reference Range Interpretation Comments Lymphocytes (%) (Auto) (test code = 736-9) 15.8 18.0-39.1 L [facility]achieMonocytes (%) (Auto)2019-10-05 11:38:00* Test Item Value Reference Range Interpretation Comments Monocytes (%) (Auto) (test code = 5905-5) 7.9 4.4-11.3 [facility]ieEosinophils (%) (Auto)2019-10-05 11:38:00 * Test Item Value Reference Range Interpretation Comments Eosinophils (%) (Auto) (test code = 713-8) 1.8 0.0-6.0 [facility]achieBasophils (%) (Auto)2019-10-05 11:38:00* Test Item Value Reference Range Interpretation Comments Basophils (%) (Auto) (test code = 706-2) 0.6 0.0-1.0 [facility]achieIM GRANULOCYTES %2019-10-05 11:38:00* Test Item Value Reference Range Interpretation Comments IM GRANULOCYTES % (test code = IM GRANULOCYTES %) 0.4 0.0- 1.0 [facility]achieNeutrophils # (Auto)2019-10-05 11:38:00* Test Item Value Reference Range Interpretation Comments Neutrophils # (Auto) (test code = 751-8) 5.2 2.1-6.9 [facility]achieLymphocytes # (Auto)2019-10-05 11:38:00* Test Item Value Reference Range Interpretation Comments Lymphocytes # (Auto) (test code = 31042-5) 1.1 1.0-3.2 [facility]achieMonocytes # (Auto)2019-10-05 11:38:00* Test Item Value Reference Range Interpretation Comments Monocytes # (Auto) (test code = 742-7) 0.6 0.2-0.8 [facility]ieEosinophils # (Auto)2019-10-05 11:38:00* Test Item Value Reference Range Interpretation Comments Eosinophils # (Auto) (test code = 711-2) 0.1 0.0-0.4 [facility]ieBasophils # (Auto)2019-10-05 11:38:00* Test Item Value Reference Range Interpretation Comments Basophils # (Auto) (test code = 704-7) 0.0 0.0-0.1 [facility] Wax[facility]achieAbsolute Immature Granulocyte (auto 2019-10-05 11:38:00* Test Item Value Reference Range Interpretation Comments Absolute Immature Granulocyte (auto (karo t code = Absolute Immature Granulocyte (auto) 0.03 0-0.1 [facility]achieCHEST SINGLE (PORTABLE)2019-10-05 10:58:00 [facility] [address] [place] [address] Patient Name: MIGUEL FONTENOT MR #: [id number] : 1935 Age/Sex: 84/F Req #: [id number] Adm Physician: Ordered by: LOY SO NP Report #: [id number] Location: ER Room/Bed: Procedure: 0207-0 034 DX/CHEST SINGLE (PORTABLE) Exam Date: 10/05/19 E xam Time: 1025 REPORT STATUS: Velia jamila Chest, 1 view, 10/05/2019. History: Slurred speech, [...] YAQUELIN on 10/05/191057 COPY TO: LOY SO FORKLIFT PICKER CT BRAIN [id number] 10:55:00 [place] [address] Patient Name: MIGUEL FONTENOT MR #: [id number] : 07/1935 Age/Sex: 84/F Req #: [id number] Adm Physician: Ordered by: LOY SO FORKLIFT PICKER Report #: [id number] Location: ER Room/Bed: Procedure: 0207-[address]/CT [...] ROSARIO MD 1101 COPY TO: AUGUSTO SO NP Prothrombin time (PT) in platelet poor plasma by coagulation strpv7291-36-55 09:48:00* Test Item Value Reference Range Interpretation Comments Prothrombin Time (test code = 5902-2) 14.2 11.9-14.5 [facility]achieINR in Platelet poor plasma by Coagulation nqlkh4352-23-27 09:48:00* Test Item Value Reference Range Interpretation Comments Prothromb Time International Ratio (test code = 6301-6) 1.04 Oral Anticoagulant Therapy INR Values:1. Low Intensity Therapy 1.5 - 2.02 . Moderate Intensity Therapy 2.0 - 3.03. High Intensity Therapy(1) 2.5 - 3. 54. High Intensity Therapy(2) 3.0 - 4.05. Panic Value INR > 5.0 [facility]ahachieActivated partial thromboplastin time (aPTT) in platelet poor plasma by coagulation qqfmd9648-66-33 09:48:00* Test Item Value Reference Range Interpretation Comments Activated Partial Thromboplast Time (test code = 62511-7) 31.2 23.8-35.5 [facility] W[facility]achieBNP Rmm-rPif0237-64-07 09:48:00* Test Item Value Reference Range Interpretation Comments B-Type Natriuretic Peptide (test code = 27313-7) 199.4 0-100 [facility] Centerodium Gddrw7798-01-76 07:12:00* Test Item Value Reference Range Interpretation Comments Sodium Level (test code = 2951-2) 138 136-145 [facility]achiePotassium Imvip9811-07-86 07:12:00* Test Item Value Reference Range Interpretation Comments Potassium Level (test code = 2823-3) 3.6 3.5-5.1 [facility] W[facility]achieChloride Tikgh9459-69-71 07:12:00* Test Item Value Reference Range Interpretation Comments Chloride Level (test code = 2075-0) 105 98-107 [facility] WaxahachieCarbon Dioxide Koohb5126-84-29 07:12:00* Test Item Value Reference Range Interpretation Comments Carbon Dioxide Level (test code = 2028-9) 21 22-29 L [facility] WaxahachieAnion Pwl0785-73-92 07:12:00* Test Item Value Reference Range Interpretation Comments Anion Gap (test code = 08734-1) 15.6 8-16 [facility] W[facility]achieBlood Urea Lcxhqgng3501-35-24 07:12:00* Test Item Value Reference Range Interpretation Comments Blood Urea Nitrogen (test code = 3094-0) 32 7-26 H [facility]achieCreatinine2020-01-26 07:12:00* Test Item Value Reference Range Interpretation Comments Creatinine (test code = 2160-0) 5.68 0.57-1.11 H [facility]achieBUN/Creatinine Vihtz3907-10-18 07:12:00* Test Item Value Reference Range Interpretation Comments BUN/Creatinine Ratio (test code = 3097-3) 6 6-25 [facility] WaxahachieEstimat Glomerular Filtration Rate 2019-09-23 07:12:00* Test Item Value Reference Range Interpretation Comments Estimat Glomerular Filtration Rate (test code = 058395954) 7 >60 L Ranges were taken from the National Kidney Disease Education Program and the [facility] Kidney Foundation literature.Reference ranges:60 or greater: Tgfoyn67-61 ( for 3 consecutive months): Chronic kidney disease 15 or less: Kidney failureBaylor Scott & White Medical Center – WaxahachieGlucose Xlees1362-96-37 07:12:00* Test Item Value Reference Range Interpretation Comments Glucose Level (test code = FXD6621) 108 74-118 [facility]achieCalcium Ksqkq8741-84-75 07:12:00* Test Item Value Reference Range Interpretation Comments Calcium Level (test code = 38003-2) 9.6 8.4-10.2 [facility]achieTotal Zechqlann0754-29-10 07:12:00* Test Item Value Reference Range Interpretation Comments Total Bilirubin (test code = 1975-2) 0.3 0.2-1.2 [facility]ahachieAspartate Amino Transf (AST/SGOT) 2019-09-23 07:12:00* Test Item Value Reference Range Interpretation Comments Aspartate Amino Transf (AST/SGOT) (test code = Aspartate Amino Transf (AST/SGOT)) 12 5-34 [facility]achieAlanine Aminotransferase (ALT/SGPT) 2019-09-23 07:12:00* Test Item Value Reference Range Interpretation Comments Alanine Aminotransferase (ALT/SGPT) (test code = 1742-6) 11 0-55 [facility]achieTotal Lxoybpn4756-02-25 07:12:00* Test Item Value Reference Range Interpretation Comments Total Protein (test code = 2885-2) 6.2 6.5-8.1 L [facility] WaxahachieAlbumin2020-01-26 07:12:00* Test Item Value Reference Range Interpretation Comments Albumin (test code = 1751-7) 2.3 3.5-5.0 L [facility] WaxahachieGlobulin2020-01-26 07:12:00* Test Item Value Reference Range Interpretation Comments Globulin (test code = 10149-1) 3.9 2.3-3.5 H [facility]achieAlbumin/Globulin Dgnbf4696-47-00 07:12:00 * Test Item Value Reference Range Interpretation Comments Albumin/Globulin Ratio (test code = 1759-0) 0.6 0.8-2.0 L [facility]achieAlkaline Tfjbirgaplh9441-12-76 07:12:00* Test Item Value Reference Range Interpretation Comments Alkaline Phosphatase (test code = 6768-6) 99 40-150 [facility]achieTriglycerides Rrtng5693-60-28 07:12:00* Test Item Value Reference Range Interpretation Comments Triglycerides Level (test code = 2571-8) 95 0-149 [facility]achieCholesterol Enmjg7250-64-28 07:12:00* Test Item Value Reference Range Interpretation Comments Cholesterol Level (test code = 2093-3) 120 0-199 Less than 200 mg/dL Low Atdf979 - 239 mg/dL Borderline Khvn063 m g/dl and greater High Risk [facility] W[facility]achieLDL Frpiabexfbs6255-30-60 07:12:00* Test Item Value Reference Range Interpretation Comments LDL Cholesterol (test code = 2089-1) 59 60-130 L [facility] W[facility]achieHDL Nmpjvhtarpq3342-69-68 07:12:00* Test Item Value Reference Range Interpretation Comments HDL Cholesterol (test code = 2085-9) 42 40-60 [facility]achieCholesterol/HDL Apqgj3696-22-17 07:12:00 * Test Item Value Reference Range Interpretation Comments Cholesterol/HDL Ratio (test code = 9830-1) 2.9 3.0-3.6 L [facility] Centerodium Ctzid1323-43-82 07:12:00* Test Item Value Reference Range Interpretation Comments Sodium Level (test code = 2951-2) 138 136-145 [facility]achiePotassium Szwnx6568-08-91 07:12:00* Test Item Value Reference Range Interpretation Comments Potassium Level (test code = 2823-3) 3.6 3.5-5.1 [facility]achieChloride Cxwhb6935-43-60 07:12:00* Test Item Value Reference Range Interpretation Comments Chloride Level (test code = 2075-0) 105 98-107 [facility] WaxahachieCarbon Dioxide Wbppa6707-70-42 07:12:00* Test Item Value Reference Range Interpretation Comments Carbon Dioxide Level (test code = 2028-9) 21 22-29 L [facility] WaxahachieAnion Uuc7062-96-43 07:12:00* Test Item Value Reference Range Interpretation Comments Anion Gap (test code = 55445-7) 15.6 8-16 [facility] W[facility]achieBlood Urea Hgfafauf7479-14-23 07:12:00* Test Item Value Reference Range Interpretation Comments Blood Urea Nitrogen (test code = 3094-0) 32 7-26 H [facility] W[facility]ahachieCreatinine2020-01-26 07:12:00* Test Item Value Reference Range Interpretation Comments Creatinine (test code = 2160-0) 5.68 0.57-1.11 H [facility]achieBUN/Creatinine Dtepd2309-10-05 07:12:00* Test Item Value Reference Range Interpretation Comments BUN/Creatinine Ratio (test code = 3097-3) 6 6-25 [facility] WaxahachieEstimat Glomerular Filtration Rate 2019-09-23 07:12:00* Test Item Value Reference Range Interpretation Comments Estimat Glomerular Filtration Rate (test code = 651743835) 7 >60 L Ranges were taken from the National Kidney Disease Education Program and the [facility] Kidney Foundation literature.Reference ranges:60 or greater: Hiddsl19-61 ( for 3 consecutive months): Chronic kidney disease 15 or less: Kidney failureBaylor Scott & White Medical Center – WaxahachieGlucose Bvhqh1543-61-29 07:12:00* Test Item Value Reference Range Interpretation Comments Glucose Level (test code = GDX6195) 108 74-118 [facility] W[facility]achieCalcium Ozztm5174-70-75 07:12:00* Test Item Value Reference Range Interpretation Comments Calcium Level (test code = 35649-1) 9.6 8.4-10.2 [facility]achieTotal Zgesobcof5072-61-34 07:12:00* Test Item Value Reference Range Interpretation Comments Total Bilirubin (test code = 1975-2) 0.3 0.2-1.2 [facility] WaxahachieAspartate Amino Transf (AST/SGOT) 2019-09-23 07:12:00* Test Item Value Reference Range Interpretation Comments Aspartate Amino Transf (AST/SGOT) (test code = Aspartate Amino Transf (AST/SGOT)) 12 5-34 [facility] WaxahachieAlanine Aminotransferase (ALT/SGPT) 2019-09-23 07:12:00* Test Item Value Reference Range Interpretation Comments Alanine Aminotransferase (ALT/SGPT) (test code = 1742-6) 11 0-55 [facility]achieTotal Lbokypb3696-08-12 07:12:00* Test Item Value Reference Range Interpretation Comments Total Protein (test code = 2885-2) 6.2 6.5-8.1 L [facility] W[facility]ahachieAlbumin2020-01-26 07:12:00* Test Item Value Reference Range Interpretation Comments Albumin (test code = 1751-7) 2.3 3.5-5.0 L [facility] WaxahachieGlobulin2020-01-26 07:12:00* Test Item Value Reference Range Interpretation Comments Globulin (test code = 59053-0) 3.9 2.3-3.5 H [facility] [place]in[place]Globulin Fwvly2047-44-38 07:12:00 * Test Item Value Reference Range Interpretation Comments Albumin/Globulin Ratio (test code = 1759-0) 0.6 0.8-2.0 L [facility] [place]ieAlkaline Vlzyfsldofi9468-20-37 07:12:00* Test Item Value Reference Range Interpretation Comments Alkaline Phosphatase (test code = 6768-6) 99 40-150 [facility] [place]ieTriglycerides Salth5351-41-67 07:12:00* Test Item Value Reference Range Interpretation Comments Triglycerides Level (test code = 2571-8) 95 0-149 [facility] [place]ieCholesterol Kdxsy6177-63-92 07:12:00* Test Item Value Reference Range Interpretation Comments Cholesterol Level (test code = 2093-3) 120 0-199 Less than 200 mg/dL Low Ahvv754 - 239 mg/dL Borderline Ypql138 m g/dl and greater High Risk [facility] [place]ieLDL Mqvskewrnjv6284-15-46 07:12:00* Test Item Value Reference Range Interpretation Comments LDL Cholesterol (test code = 2089-1) 59 60-130 L [facility] Qyghmmeowfl5302-72-16 07:12:00* Test Item Value Reference Range Interpretation Comments HDL Cholesterol (test code = 2085-9) 42 40-60 [facility] [place]ieCholesterol/HDL Ijdpi6090-04-01 07:12:00 * Test Item Value Reference Range Interpretation Comments Cholesterol/HDL Ratio (test code = 9830-1) 2.9 3.0-3.6 L [facility] [place]ieTriglycerides Lcyxp1932-17-01 07:12:00* Test Item Value Reference Range Interpretation Comments Triglycerides Level (test code = 2571-8) 95 0-149 [facility] [place]Cholesterol Vztwf1275-57-09 07:12:00* Test Item Value Reference Range Interpretation Comments Cholesterol Level (test code = 2093-3) 120 0-199 Less than 200 mg/dL Low Frgs440 - 239 mg/dL Borderline Hkuv374 m g/dl and greater High Risk [facility] [place]ieLDL Sicimpvzwxi0202-19-10 07:12:00* Test Item Value Reference Range Interpretation Comments LDL Cholesterol (test code = 2089-1) 59 60-130 L [facility] Gyfhoqdzili8577-32-53 07:12:00* Test Item Value Reference Range Interpretation Comments HDL Cholesterol (test code = 2085-9) 42 40-60 [facility] [place]Cholesterol/HDL Gatdu2981-67-62 07:12:00 * Test Item Value Reference Range Interpretation Comments Cholesterol/HDL Ratio (test code = 9830-1) 2.9 3.0-3.6 L [facility] [place]ieCreatine Brhljs1934-82-24 07:10:00* Test Item Value Reference Range Interpretation Comments Creatine Kinase (test code = 2157-6) 82 29-168 [facility] [place]ieCreatine Kinase QW5833-07-48 07:10:00* Test Item Value Reference Range Interpretation Comments Creatine Kinase MB (test code = 65376-1) 1.50 0-5.0 [facility] [place]ieTroponin Q5643-66-87 07:10:00* Test Item Value Reference Range Interpretation Comments Troponin I (test code = RYW6357) 0.007 0-0.300 [facility]at[facility] Qwjrmw3808-40-88 07:10:00* Test Item Value Reference Range Interpretation Comments Creatine Kinase (test code = 2157-6) 82 29-168 [facility] [place]ieCreatine Kinase AS6190-72-68 07:10:00* Test Item Value Reference Range Interpretation Comments Creatine Kinase MB (test code = 49446-1) 1.50 0-5.0 [facility] [place]ieTroponin E5670-24-75 07:10:00* Test Item Value Reference Range Interpretation Comments Troponin I (test code = SCX4330) 0.007 0-0.300 [facility] [place]ieWhite Blood Rfgsf6380-89-89 06:42:00* Test Item Value Reference Range Interpretation Comments White Blood Count (test code = 6690-2) 7.78 4.8-10.8 [facility] [place]ieRed Blood Rnpao0442-93-96 06:42:00* Test Item Value Reference Range Interpretation Comments Red Blood Count (test code = 789-8) 4.80 3.6-5.1 [facility] [place]ieHemoglobin2020-01-26 06:42:00* Test Item Value Reference Range Interpretation Comments Hemoglobin (test code = 68685-0) 13.9 12.0-16.0 [facility] [place]ieHematocrit2020-01-26 06:42:00* Test Item Value Reference Range Interpretation Comments Hematocrit (test code = 4544-3) 42.5 34.2-44.1 [facility] [place]ieMean Corpuscular Qvwsyl2998-94-58 06:42:00* Test Item Value Reference Range Interpretation Comments Mean Corpuscular Volume (test code = 787-2) 88.5 81-99 [facility] [place]ieMean Corpuscular Aetqjhvnzy2841-74-17 06:42:00* Test Item Value Reference Range Interpretation Comments Mean Corpuscular Hemoglobin (test code = 785-6) 29.0 28-32 [facility] [place]ieMean Corpuscular Hemoglobin Concent 2019-09-23 06:42:00* Test Item Value Reference Range Interpretation Comments Mean Corpuscular Hemoglobin Concent (test code = 786-4) 32.7 31-35 [facility] [place]ieRed Cell Distribution Mpasi7699-57-27 06:42:00* Test Item Value Reference Range Interpretation Comments Red Cell Distribution Width (test code = 21735-2) 13.7 11.7 -14.4 [facility] [place]iePlatelet Txmud0460-03-90 06:42:00* Test Item Value Reference Range Interpretation Comments Platelet Count (test code = 777-3) 147 140-360 [facility] [place]ieNeutrophils (%) (Auto)2019-09-23 06:42:00 * Test Item Value Reference Range Interpretation Comments Neutrophils (%) (Auto) (test code = 07715-5) 72.4 38.7-80.0 [facility] [place]ieLymphocytes (%) (Auto)2019-09-23 06:42:00 * Test Item Value Reference Range Interpretation Comments Lymphocytes (%) (Auto) (test code = 736-9) 13.4 18.0-39.1 L [facility] [place]ieMonocytes (%) (Auto)2019-09-23 06:42:00* Test Item Value Reference Range Interpretation Comments Monocytes (%) (Auto) (test code = 5905-5) 10.3 4.4-11.3 [facility] [place]ieEosinophils (%) (Auto)2019-09-23 06:42:00 * Test Item Value Reference Range Interpretation Comments Eosinophils (%) (Auto) (test code = 713-8) 3.0 0.0-6.0 [facility] [place]ieBasophils (%) (Auto)2019-09-23 06:42:00* Test Item Value Reference Range Interpretation Comments Basophils (%) (Auto) (test code = 706-2) 0.6 0.0-1.0 [facility] [place]ieIM GRANULOCYTES %2019-09-23 06:42:00* Test Item Value Reference Range Interpretation Comments IM GRANULOCYTES % (test code = IM GRANULOCYTES %) 0.3 0.0- 1.0 [facility] [place]ieNeutrophils # (Auto)2019-09-23 06:42:00* Test Item Value Reference Range Interpretation Comments Neutrophils # (Auto) (test code = 751-8) 5.6 2.1-6.9 [facility] [place]ieLymphocytes # (Auto)2019-09-23 06:42:00* Test Item Value Reference Range Interpretation Comments Lymphocytes # (Auto) (test code = 72252-7) 1.0 1.0-3.2 [facility] [place]ieMonocytes # (Auto)2019-09-23 06:42:00* Test Item Value Reference Range Interpretation Comments Monocytes # (Auto) (test code = 742-7) 0.8 0.2-0.8 [facility] [place]ieEosinophils # (Auto)2019-09-23 06:42:00* Test Item Value Reference Range Interpretation Comments Eosinophils # (Auto) (test code = 711-2) 0.2 0.0-0.4 [facility] [place]ieBasophils # (Auto)2019-09-23 06:42:00* Test Item Value Reference Range Interpretation Comments Basophils # (Auto) (test code = 704-7) 0.1 0.0-0.1 [facility] [place]ieAbsolute Immature Granulocyte (auto 2019-09-23 06:42:00* Test Item Value Reference Range Interpretation Comments Absolute Immature Granulocyte (auto (karo t code = Absolute Immature Granulocyte (auto) 0.02 0-0.1 [facility] [place]ieWhite Blood Cbgyq7237-42-60 06:42:00* Test Item Value Reference Range Interpretation Comments White Blood Count (test code = 6690-2) 7.78 4.8-10.8 [facility] [place]ieRed Blood Elwjk0494-73-93 06:42:00* Test Item Value Reference Range Interpretation Comments Red Blood Count (test code = 789-8) 4.80 3.6-5.1 [facility] [place]ieHemoglobin2020-01-26 06:42:00* Test Item Value Reference Range Interpretation Comments Hemoglobin (test code = 35618-2) 13.9 12.0-16.0 [facility] [place]ieHematocrit2020-01-26 06:42:00* Test Item Value Reference Range Interpretation Comments Hematocrit (test code = 4544-3) 42.5 34.2-44.1 [facility] [place]ieMean Corpuscular Rdzxsp4611-59-71 06:42:00* Test Item Value Reference Range Interpretation Comments Mean Corpuscular Volume (test code = 787-2) 88.5 81-99 [facility] [place]ieMean Corpuscular Nfydnwujzh3384-96-79 06:42:00* Test Item Value Reference Range Interpretation Comments Mean Corpuscular Hemoglobin (test code = 785-6) 29.0 28-32 [facility] [place]ieMean Corpuscular Hemoglobin Concent 2019-09-23 06:42:00* Test Item Value Reference Range Interpretation Comments Mean Corpuscular Hemoglobin Concent (test code = 786-4) 32.7 31-35 [facility] [place]ieRed Cell Distribution Yswlt9888-92-31 06:42:00* Test Item Value Reference Range Interpretation Comments Red Cell Distribution Width (test code = 35261-3) 13.7 11.7 -14.4 [facility] [place]iePlatelet Kfgbm4340-14-50 06:42:00* Test Item Value Reference Range Interpretation Comments Platelet Count (test code = 777-3) 147 140-360 [facility] [place]ieNeutrophils (%) (Auto)2019-09-23 06:42:00 * Test Item Value Reference Range Interpretation Comments Neutrophils (%) (Auto) (test code = 61718-0) 72.4 38.7-80.0 [facility] [place]ieLymphocytes (%) (Auto)2019-09-23 06:42:00 * Test Item Value Reference Range Interpretation Comments Lymphocytes (%) (Auto) (test code = 736-9) 13.4 18.0-39.1 L [facility] [place]ieMonocytes (%) (Auto)2019-09-23 06:42:00* Test Item Value Reference Range Interpretation Comments Monocytes (%) (Auto) (test code = 5905-5) 10.3 4.4-11.3 [facility] [place]ieEosinophils (%) (Auto)2019-09-23 06:42:00 * Test Item Value Reference Range Interpretation Comments Eosinophils (%) (Auto) (test code = 713-8) 3.0 0.0-6.0 [facility] [place]ieBasophils (%) (Auto)2019-09-23 06:42:00* Test Item Value Reference Range Interpretation Comments Basophils (%) (Auto) (test code = 706-2) 0.6 0.0-1.0 [facility] [place]ieIM GRANULOCYTES %2019-09-23 06:42:00* Test Item Value Reference Range Interpretation Comments IM GRANULOCYTES % (test code = IM GRANULOCYTES %) 0.3 0.0- 1.0 [facility] [place]ieNeutrophils # (Auto)2019-09-23 06:42:00* Test Item Value Reference Range Interpretation Comments Neutrophils # (Auto) (test code = 751-8) 5.6 2.1-6.9 [facility] [place]ieLymphocytes # (Auto)2019-09-23 06:42:00* Test Item Value Reference Range Interpretation Comments Lymphocytes # (Auto) (test code = 09141-6) 1.0 1.0-3.2 [facility] [place]ieMonocytes # (Auto)2019-09-23 06:42:00* Test Item Value Reference Range Interpretation Comments Monocytes # (Auto) (test code = 742-7) 0.8 0.2-0.8 [facility] [place]ieEosinophils # (Auto)2019-09-23 06:42:00* Test Item Value Reference Range Interpretation Comments Eosinophils # (Auto) (test code = 711-2) 0.2 0.0-0.4 [facility] [place]ieBasophils # (Auto)2019-09-23 06:42:00* Test Item Value Reference Range Interpretation Comments Basophils # (Auto) (test code = 704-7) 0.1 0.0-0.1 [facility] [place]ieAbsolute Immature Granulocyte (auto 2019-09-23 06:42:00* Test Item Value Reference Range Interpretation Comments Absolute Immature Granulocyte (auto (karo t code = Absolute Immature Granulocyte (auto) 0.02 0-0.1 [facility] triglyceride measurement (mass/volume)2019-09-23 04:35:00* Test Item Value Reference Range Interpretation Comments Triglycerides Level (test code = 2571-8) 95 0-149 [facility]ererum or plasma cholesterol measurement (mass/volume)2019-09-23 04:35:00* Test Item Value Reference Range Interpretation Comments Cholesterol Level (test code = 2093-3) 120 0-199 Less than 200 mg/dL Low Lpbq993 - 239 mg/dL Borderline Mduu962 m g/dl and greater High Risk [facility]ererum [facility] plasma cholesterol in LDL measurement (mass/volume) 2019-09-23 04:35:00* Test Item Value Reference Range Interpretation Comments LDL Cholesterol (test code = 2089-1) 59 60-130 [facility]ererum [facility] plasma cholesterol in HDL measurement (mass/volume)2019-09-23 04:35:00* Test Item Value Reference Range Interpretation Comments HDL Cholesterol (test code = 2085-9) 42 40-60 [facility]ererum or plasma total cholesterol/cholesterol in HDL mass rwdka3641-14-50 04:35:00* Test Item Value Reference Range Interpretation Comments Cholesterol/HDL Ratio (test code = 9830-1) 2.9 3.0-3.6 [facility] [place]ieUrine Lbyvu9775-11-44 18:05:00* Test Item Value Reference Range Interpretation Comments Urine Color (test code = 5778-6) YELLOW YELLOW [facility] [place]ieUrine Yfhobta2883-62-71 18:05:00* Test Item Value Reference Range Interpretation Comments Urine Clarity (test code = 68621-7) CLEAR CLEAR [facility] [place]ieUrine Specific Wtgzglo1896-91-47 18:05:00 * Test Item Value Reference Range Interpretation Comments Urine Specific [place] (test code = 5811-5) 1.010 1.010-1.02 5 [facility] [place]ieUrine fW2312-41-54 18:05:00* Test Item Value Reference Range Interpretation Comments Urine pH (test code = 99903-4) 7 5-7 [facility] [place]ieUrine Leukocyte Yszuottd1042-39-71 18:05:00* Test Item Value Reference Range Interpretation Comments Urine Leukocyte Esterase (test code = 5799-2) NEGATIVE NEGATIVE [facility] [place]ieUrine Zmvectb4976-56-01 18:05:00* Test Item Value Reference Range Interpretation Comments Urine Nitrite (test code = 91404-8) NEGATIVE NEGATIVE [facility] [place]ieUrine Oppatln2926-18-70 18:05:00* Test Item Value Reference Range Interpretation Comments Urine Protein (test code = 5804-0) 1+ NEGATIVE H [facility] [place]ieUrine Glucose (UA)2019-09-22 18:05:00* Test Item Value Reference Range Interpretation Comments Urine Glucose (UA) (test code = 2349-9) NEGATIVE NEGATIVE [facility] [place]ieUrine Fqprkdk2663-04-01 18:05:00* Test Item Value Reference Range Interpretation Comments Urine Ketones (test code = 18821-0) NEGATIVE NEGATIVE [facility] [place]ieUrine Xaieasfhvbkl9205-01-42 18:05:00* Test Item Value Reference Range Interpretation Comments Urine Urobilinogen (test code = 89301-4) 0.2 0.2-1 [facility] [place]ieUrine Auvjdkpsd3593-04-56 18:05:00* Test Item Value Reference Range Interpretation Comments Urine Bilirubin (test code = 1978-6) NEGATIVE NEGATIVE [facility] [place]ieUrine Ckgzj9366-45-94 18:05:00* Test Item Value Reference Range Interpretation Comments Urine Blood (test code = 18584-4) 1+ NEGATIVE [facility] [place]ieUrine EXY6803-10-15 18:05:00* Test Item Value Reference Range Interpretation Comments Urine WBC (test code = 5821-4) 6-10 0-5 H [facility] [place]ieUrine FTB6865-07-29 18:05:00* Test Item Value Reference Range Interpretation Comments Urine RBC (test code = 33030-8) 0-5 0-5 [facility] Htncjiuh3254-73-74 18:05:00* Test Item Value Reference Range Interpretation Comments Urine Bacteria (test code = 26645-4) RARE NONE [facility] [place]ieUrine Epithelial Otpdu3243-10-09 18:05:00 * Test Item Value Reference Range Interpretation Comments Urine Epithelial Cells (test code = 27295-5) FEW NONE [facility] [place]ieUrine Oqunr0278-24-30 18:05:00* Test Item Value Reference Range Interpretation Comments Urine Color (test code = 5778-6) YELLOW YELLOW [facility] [place]ieUrine Johgiav2770-48-33 18:05:00* Test Item Value Reference Range Interpretation Comments Urine Clarity (test code = 76579-4) CLEAR CLEAR [facility] [place]ieUrine Specific Qythyvy7528-56-98 18:05:00 * Test Item Value Reference Range Interpretation Comments Urine Specific [place] (test code = 5811-5) 1.010 1.010-1.02 5 [facility] [place]ieUrine kU6244-73-70 18:05:00* Test Item Value Reference Range Interpretation Comments Urine pH (test code = 85177-1) 7 5-7 [facility] [place]ieUrine Leukocyte Ektkhkof4612-96-99 18:05:00* Test Item Value Reference Range Interpretation Comments Urine Leukocyte Esterase (test code = 5799-2) NEGATIVE NEGATIVE [facility] [place]ieUrine Vxggkvk3596-41-69 18:05:00* Test Item Value Reference Range Interpretation Comments Urine Nitrite (test code = 66066-1) NEGATIVE NEGATIVE [facility] [place]ieUrine Hgluetw8978-33-86 18:05:00* Test Item Value Reference Range Interpretation Comments Urine Protein (test code = 5804-0) 1+ NEGATIVE H [facility] Glucose (UA)2019-09-22 18:05:00* Test Item Value Reference Range Interpretation Comments Urine Glucose (UA) (test code = 2349-9) NEGATIVE NEGATIVE [facility] [place]ieUrine Umizbda0668-42-99 18:05:00* Test Item Value Reference Range Interpretation Comments Urine Ketones (test code = 29608-6) NEGATIVE NEGATIVE [facility] Jzflyvusudic0827-56-62 18:05:00* Test Item Value Reference Range Interpretation Comments Urine Urobilinogen (test code = 36928-1) 0.2 0.2-1 [facility] Peqlsjvls3657-78-33 18:05:00* Test Item Value Reference Range Interpretation Comments Urine Bilirubin (test code = 1978-6) NEGATIVE NEGATIVE [facility] Fcedz5702-20-16 18:05:00* Test Item Value Reference Range Interpretation Comments Urine Blood (test code = 78255-5) 1+ NEGATIVE [facility] [place]ieU[facility] NET1749-70-03 18:05:00* Test Item Value Reference Range Interpretation Comments Urine WBC (test code = 5821-4) 6-10 0-5 H [facility] [place]ieUrine EII7290-45-12 18:05:00* Test Item Value Reference Range Interpretation Comments Urine RBC (test code = 18730-2) 0-5 0-5 [facility] [place]ieU[facility] Mgcdyusr2655-82-64 18:05:00* Test Item Value Reference Range Interpretation Comments Urine Bacteria (test code = 74841-2) RARE NONE [facility] [place]ieUrine Epithelial Rqmtd3864-58-88 18:05:00 * Test Item Value Reference Range Interpretation Comments Urine Epithelial Cells (test code = 67398-2) FEW NONE [facility] [place]ieUrine Jqizh4732-96-21 18:05:00* Test Item Value Reference Range Interpretation Comments Urine Color (test code = 5778-6) YELLOW YELLOW [facility] [place]ieUrine Iivxksh0000-32-05 18:05:00* Test Item Value Reference Range Interpretation Comments Urine Clarity (test code = 24664-8) CLEAR CLEAR [facility] [place]ieUrine Specific Lxpsvjn1774-37-56 18:05:00 * Test Item Value Reference Range Interpretation Comments Urine Specific [place] (test code = 5811-5) 1.010 1.010-1.02 5 [facility] [place]ieUrine vZ1348-23-41 18:05:00* Test Item Value Reference Range Interpretation Comments Urine pH (test code = 55138-6) 7 5-7 [facility] [place]ieUrine Leukocyte Fedbhfdc0296-50-41 18:05:00* Test Item Value Reference Range Interpretation Comments Urine Leukocyte Esterase (test code = 5799-2) NEGATIVE NEGATIVE [facility]ieU[facility] Yhuczyv4081-59-80 18:05:00* Test Item Value Reference Range Interpretation Comments Urine Nitrite (test code = 87572-1) NEGATIVE NEGATIVE [facility] [place]ieUrine Wcizgss4545-65-91 18:05:00* Test Item Value Reference Range Interpretation Comments Urine Protein (test code = 5804-0) 1+ NEGATIVE H [facility] [place]ieUrine Glucose (UA)2019-09-22 18:05:00* Test Item Value Reference Range Interpretation Comments Urine Glucose (UA) (test code = 2349-9) NEGATIVE NEGATIVE [facility] [place]ieUrine Rwrohvh0886-27-86 18:05:00* Test Item Value Reference Range Interpretation Comments Urine Ketones (test code = 76363-4) NEGATIVE NEGATIVE [facility] [place]ieUrine Adaunrxlojif8085-84-52 18:05:00* Test Item Value Reference Range Interpretation Comments Urine Urobilinogen (test code = 20223-5) 0.2 0.2-1 [facility]ieU[facility] Hbigwnqer6999-60-56 18:05:00* Test Item Value Reference Range Interpretation Comments Urine Bilirubin (test code = 1978-6) NEGATIVE NEGATIVE [facility] Qmhng6768-92-53 18:05:00* Test Item Value Reference Range Interpretation Comments Urine Blood (test code = 86258-6) 1+ NEGATIVE [facility] [place]ieU[facility] UDM8763-07-06 18:05:00* Test Item Value Reference Range Interpretation Comments Urine WBC (test code = 5821-4) 6-10 0-5 H [facility]ieU[facility] YML9489-90-27 18:05:00* Test Item Value Reference Range Interpretation Comments Urine RBC (test code = 32463-8) 0-5 0-5 [facility]ieU[facility] Gkcnjudp2749-17-31 18:05:00* Test Item Value Reference Range Interpretation Comments Urine Bacteria (test code = 36773-8) RARE NONE [facility]ieUrine Epithelial Nqtso3218-33-33 18:05:00 * Test Item Value Reference Range Interpretation Comments Urine Epithelial Cells (test code = 46729-4) FEW NONE [facility]ieUrine color ywavngoymtaoy0024-68-82 16:40:00* Test Item Value Reference Range Interpretation Comments Urine Color (test code = 5778-6) YELLOW YELLOW [facility]ieUrine zboomxn1063-17-27 16:40:00* Test Item Value Reference Range Interpretation Comments Urine Clarity (test code = 81562-5) CLEAR CLEAR [facility] by Test strip 2019-09-22 16:40:00* Test Item Value Reference Range Interpretation Comments Urine Specific [place] (test code = 5811-5) 1.010 1.010-1.02 5 [facility] [place]ieUrine pH measurement by automated test bbzyn7632-73-75 16:40:00* Test Item Value Reference Range Interpretation Comments Urine pH (test code = 15908-8) 7 5-7 [facility]ieUrine leukocyte esterase detection by wajmbvod4015-64-11 16:40:00* Test Item Value Reference Range Interpretation Comments Urine Leukocyte Esterase (test code = 5799-2) NEGATIVE NEGATIVE [facility]ieUrine nitrite uutltngjh1929-69-47 16:40:00* Test Item Value Reference Range Interpretation Comments Urine Nitrite (test code = 90630-7) NEGATIVE NEGATIVE [facility]ieUrine protein measurement by test strip (mass/volume)2019-09-22 16:40:00* Test Item Value Reference Range Interpretation Comments Urine Protein (test code = 5804-0) 1+ NEGATIVE [facility]ieUrine glucose dmartmmma9657-31-52 16:40:00* Test Item Value Reference Range Interpretation Comments Urine Glucose (UA) (test code = 2349-9) NEGATIVE NEGATIVE [facility]ieUrine ketones detection by automated test zmjzj9602-59-87 16:40:00* Test Item Value Reference Range Interpretation Comments Urine Ketones (test code = 68828-3) NEGATIVE NEGATIVE [facility]ieUrine urobilinogen measurement by test strip (mass/volume)2019-09-22 16:40:00* Test Item Value Reference Range Interpretation Comments Urine Urobilinogen (test code = 61405-0) 0.2 0.2-1 [facility]ieUrine total bilirubin measurement (mass/volume)2019-09-22 16:40:00* Test Item Value Reference Range Interpretation Comments Urine Bilirubin (test code = 1978-6) NEGATIVE NEGATIVE [facility]ieUrine erythrocytes sxvbfxduc4596-20-12 16:40:00* Test Item Value Reference Range Interpretation Comments Urine Blood (test code = 94599-7) 1+ NEGATIVE [facility]ieAutomated urine sediment leukocyte count by microscopy (number/high power field)2019-09-22 16:40:00* Test Item Value Reference Range Interpretation Comments Urine WBC (test code = 5821-4) 6-10 0-5 [facility]ieErythrocytes detection in urine sediment by light litqrabfsf1555-50-66 16:40:00* Test Item Value Reference Range Interpretation Comments Urine RBC (test code = 90094-6) 0-5 0-5 [facility]ieBacteria detection in urine sediment by light mygjqrsllv5989-63-62 16:40:00* Test Item Value Reference Range Interpretation Comments Urine Bacteria (test code = 20235-9) RARE NONE [facility]ieEpithelial cells detection in urine sediment by light zevshpacdf2747-15-66 16:40:00* Test Item Value Reference Range Interpretation Comments Urine Epithelial Cells (test code = 19633-1) FEW NONE [facility]ieMRI BRAIN QX9820-65-89 16:23:00 [facility] [address] [address] Patient Name: MIGUEL FONTENOT MR #: [id number] : 07/1935 Age/Sex: 84/F Req #: [id number] Adm Physician: RODNEY SHIPMAN MD Ordered by: ERICKA GREENE MD Report #: [id number] Location: [facility]/SURG2 Room/Bed: [facility] Procedure: [id number] MRI/MRI BRAIN WO Exam Date: Exam [...] ERICKA GREENE MD CHEST SINGLE (PORTABLE)2019-09-22 13:34:[address] [address] Patient Name: MIGUEL FONTENOT MR #: [id number] : 1935 Age/Sex: 84/F Req #: [id number] Adm Physician: Ordered by: LOY SO FORKLIFT PICKER Report #: [id number] Location: ER Room/Bed: Procedure: 0125-0 021 DX/CHEST SINGLE (PORTABLE) Exam Date: 09/22/19 E xam Time: 1315 REPORT STATUS: Velia soto Chest, AP. History: Having a stroke. Comparison: [...] on 09/22/2019 1:36 PM Dictated By: QUE francis Signed By: QUE JACKSON MD, MD on 09/22/191335 Transcribed By: YAQUELIN on 09/22/191335 COPY TO: LOY SO FORKLIFT PICKER Prothrombin Time 2019-09-22 13:06:00* Test Item Value Reference Range Interpretation Comments Prothrombin Time (test code = 5902-2) 14.0 11.9-14.5 [facility]ieProthromb Time International Ratio 2019-09-22 13:06:00* Test Item Value Reference Range Interpretation Comments Prothromb Time International Ratio (test code = 6301-6) 1.03 Oral Anticoagulant Therapy INR Values:1. Low Intensity Therapy 1.5 - 2.02 . Moderate Intensity Therapy 2.0 - 3.03. High Intensity Therapy(1) 2.5 - 3. 54. High Intensity Therapy(2) 3.0 - 4.05. Panic Value INR > 5.0 [facility]ieActivated Partial Thromboplast Time 2019-09-22 13:06:00* Test Item Value Reference Range Interpretation Comments Activated Partial Thromboplast Time (test code = 08195-0) 35.5 23.8-35.5 [facility]ieProthrombin Ywoe6864-33-23 13:06:00* Test Item Value Reference Range Interpretation Comments Prothrombin Time (test code = 5902-2) 14.0 11.9-14.5 [facility]ieProthromb Time International Ratio 2019-09-22 13:06:00* Test Item Value Reference Range Interpretation Comments Prothromb Time International Ratio (test code = 6301-6) 1.03 Oral Anticoagulant Therapy INR Values:1. Low Intensity Therapy 1.5 - 2.02 . Moderate Intensity Therapy 2.0 - 3.03. High Intensity Therapy(1) 2.5 - 3. 54. High Intensity Therapy(2) 3.0 - 4.05. Panic Value INR > 5.0 [facility]ieActivated Partial Thromboplast Time 2019-09-22 13:06:00* Test Item Value Reference Range Interpretation Comments Activated Partial Thromboplast Time (test code = 23757-1) 35.5 23.8-35.5 [facility]achieCT BRAIN ZO4781-76-83 12:42:00 [facility] [address] [address] Patient Name: MIGUEL FONTENOT MR #: [id number] : 07/1935 Age/Sex: 84/F Req #: [id number] Adm Physician: Ordered by: LOY SO FORKLIFT PICKER Report #: [id number] Location: ER Room/Bed: Procedure: 0125-[address]/CT [...] 46 PM Dictated By: ATILIO ABARCA MD 1246 Transcribed By: YAQUELIN on 09/22/19 1246 COPY TO: LOY SO FORKLIFT PICKER Blood Vqjhmwl4035-57-85 17:23:00* Test Item Value Reference Range Interpretation Comments Blood Culture (test code = 96575900) NO GROWTH AFTER 72 HOURS [facility] Hospital[facility] QVDZJOFS3090-51-42 19:38:00 [facility] [address] [address] Patient Name: MIGUEL FONTENOT MR #: [id number] : 07/1935 Age/Sex: 83/F Req #: [id number] Adm Physician: RODNEY SHIPMAN MD Ordered by: RODNEY SHIPMAN MD Report #: [id number] Location: MED/SURG3 Room/Bed: [facility] Procedure: 0318- 0062 DX/FOOT RIGHT COMPLETE Exam [...] radiographic evidence of osteomyelitis. Signed by: Lana ShelleyO. , M.M.M. on 11/13/2018 7:44 PM Dictated By: YOJANA STEVENS DO 43 Transcribed By: YAQUELIN on 11/13/181943 COPY TO: RODNEY SHIPMAN MD Uric Tynv8325-99-92 18:28:00* Test Item Value Reference Range Interpretation Comments Uric Acid (test code = 3084-1) 6.3 2.6-8.0 [facility] Txkny0543-79-15 06:42:00* Test Item Value Reference Range Interpretation Comments Sodium Level (test code = 2951-2) 142 136-145 [facility]iePotassium Rqtoi7645-49-70 06:42:00* Test Item Value Reference Range Interpretation Comments Potassium Level (test code = 2823-3) 3.9 3.5-5.1 [facility]ieChloride Zpwxo7574-01-29 06:42:00* Test Item Value Reference Range Interpretation Comments Chloride Level (test code = 2075-0) 108 98-107 H [facility]achieCarbon Dioxide Ccuii2846-02-99 06:42:00* Test Item Value Reference Range Interpretation Comments Carbon Dioxide Level (test code = 2028-9) 26 22-29 [facility] W[facility]achieAnion Nwb4338-18-38 06:42:00* Test Item Value Reference Range Interpretation Comments Anion Gap (test code = 86993-7) 11.9 8-16 [facility] W[facility]achieBlood Urea Xlpncctj0629-80-31 06:42:00* Test Item Value Reference Range Interpretation Comments Blood Urea Nitrogen (test code = 3094-0) 24 7-26 [facility]ieCreatinine2019-03-18 06:42:00* Test Item Value Reference Range Interpretation Comments Creatinine (test code = 2160-0) 5.30 0.57-1.11 H [facility]ieBUN/Creatinine Btcvq8121-90-38 06:42:00* Test Item Value Reference Range Interpretation Comments BUN/Creatinine Ratio (test code = 3097-3) 5 6-25 L [facility] WaxahachieEstimat Glomerular Filtration Rate 2018-11-13 06:42:00* Test Item Value Reference Range Interpretation Comments Estimat Glomerular Filtration Rate (test code = 726561261) 8 >60 L Ranges were taken from the National Kidney Disease Education Program and the [facility] Kidney Foundation literature.Reference ranges:60 or greater: Dsvzkw60-88 ( for 3 consecutive months): Chronic kidney disease 15 or less: Kidney failureBaylor Scott & White Medical Center – WaxahachieGlucose Ztczm8379-88-95 06:42:00* Test Item Value Reference Range Interpretation Comments Glucose Level (test code = WUG4362) 104 74-118 [facility]achieCalcium Ygoyc0278-96-66 06:42:00* Test Item Value Reference Range Interpretation Comments Calcium Level (test code = 67572-5) 7.9 8.4-10.2 L [facility]achieWhite Blood Paaur7697-53-38 06:30:00* Test Item Value Reference Range Interpretation Comments White Blood Count (test code = 6690-2) 5.78 4.8-10.8 [facility] W[facility]achieRed Blood Zrzho7133-79-93 06:30:00* Test Item Value Reference Range Interpretation Comments Red Blood Count (test code = 789-8) 4.09 3.6-5.1 [facility]ieHemoglobin2019-03-18 06:30:00* Test Item Value Reference Range Interpretation Comments Hemoglobin (test code = 64126-0) 11.8 12.0-16.0 L [facility]achieHematocrit2019-03-18 06:30:00* Test Item Value Reference Range Interpretation Comments Hematocrit (test code = 4544-3) 38.5 34.2-44.1 [facility] Wax[facility]achieMean Corpuscular Pimioz4123-13-38 06:30:00* Test Item Value Reference Range Interpretation Comments Mean Corpuscular Volume (test code = 787-2) 94.1 81-99 [facility] W[facility]achieMean Corpuscular Hovueefzas9278-16-09 06:30:00* Test Item Value Reference Range Interpretation Comments Mean Corpuscular Hemoglobin (test code = 785-6) 28.9 28-32 [facility] W[facility]achieMean Corpuscular Hemoglobin Concent 2018-11-13 06:30:00* Test Item Value Reference Range Interpretation Comments Mean Corpuscular Hemoglobin Concent (test code = 786-4) 30.6 31-35 L [facility] WaxahachieRed Cell Distribution Rxsty1917-11-73 06:30:00* Test Item Value Reference Range Interpretation Comments Red Cell Distribution Width (test code = 25978-7) 17.5 11.7 -14.4 H [facility] WaxahachiePlatelet Njdwv9761-29-39 06:30:00* Test Item Value Reference Range Interpretation Comments Platelet Count (test code = 777-3) 144 140-360 [facility]achieNeutrophils (%) (Auto)2018-11-13 06:30:00 * Test Item Value Reference Range Interpretation Comments Neutrophils (%) (Auto) (test code = 63066-9) 63.9 38.7-80.0 [facility] Wax[facility]achieLymphocytes (%) (Auto)2018-11-13 06:30:00 * Test Item Value Reference Range Interpretation Comments Lymphocytes (%) (Auto) (test code = 736-9) 19.9 18.0-39.1 [facility]achieMonocytes (%) (Auto)2018-11-13 06:30:00* Test Item Value Reference Range Interpretation Comments Monocytes (%) (Auto) (test code = 5905-5) 9.3 4.4-11.3 [facility]ieEosinophils (%) (Auto)2018-11-13 06:30:00 * Test Item Value Reference Range Interpretation Comments Eosinophils (%) (Auto) (test code = 713-8) 6.1 0.0-6.0 H [facility]achieBasophils (%) (Auto)2018-11-13 06:30:00* Test Item Value Reference Range Interpretation Comments Basophils (%) (Auto) (test code = 706-2) 0.5 0.0-1.0 [facility]ieIM GRANULOCYTES %2018-11-13 06:30:00* Test Item Value Reference Range Interpretation Comments IM GRANULOCYTES % (test code = IM GRANULOCYTES %) 0.3 0.0- 1.0 [facility]ieNeutrophils # (Auto)2018-11-13 06:30:00* Test Item Value Reference Range Interpretation Comments Neutrophils # (Auto) (test code = 751-8) 3.7 2.1-6.9 [facility] W[facility]achieLymphocytes # (Auto)2018-11-13 06:30:00* Test Item Value Reference Range Interpretation Comments Lymphocytes # (Auto) (test code = 58440-1) 1.2 1.0-3.2 [facility]ieMonocytes # (Auto)2018-11-13 06:30:00* Test Item Value Reference Range Interpretation Comments Monocytes # (Auto) (test code = 742-7) 0.5 0.2-0.8 [facility]ieEosinophils # (Auto)2018-11-13 06:30:00* Test Item Value Reference Range Interpretation Comments Eosinophils # (Auto) (test code = 711-2) 0.4 0.0-0.4 [facility]achieBasophils # (Auto)2018-11-13 06:30:00* Test Item Value Reference Range Interpretation Comments Basophils # (Auto) (test code = 704-7) 0.0 0.0-0.1 [facility] W[facility]achieAbsolute Immature Granulocyte (auto 2018-11-13 06:30:00* Test Item Value Reference Range Interpretation Comments Absolute Immature Granulocyte (auto (karo t code = Absolute Immature Granulocyte (auto) 0.02 0-0.1 [facility]achieTotal Otfcbfrac1398-47-20 16:40:00* Test Item Value Reference Range Interpretation Comments Total Bilirubin (test code = 1975-2) 0.3 0.2-1.2 [facility] WaxahachieAspartate Amino Transf (AST/SGOT) 2018-11-12 16:40:00* Test Item Value Reference Range Interpretation Comments Aspartate Amino Transf (AST/SGOT) (test code = Aspartate Amino Transf (AST/SGOT)) 16 5-34 [facility] Wax[facility]achieAlanine Aminotransferase (ALT/SGPT) 2018-11-12 16:40:00* Test Item Value Reference Range Interpretation Comments Alanine Aminotransferase (ALT/SGPT) (test code = 1742-6) 9 0-55 [facility] W[facility]achieTotal Kpcmgrb7855-65-54 16:40:00* Test Item Value Reference Range Interpretation Comments Total Protein (test code = 2885-2) 7.0 6.5-8.1 [facility] W[facility]achieAlbumin2019-03-17 16:40:00* Test Item Value Reference Range Interpretation Comments Albumin (test code = 1751-7) 2.3 3.5-5.0 L [facility] Wax[facility]achieGlobulin2019-03-17 16:40:00* Test Item Value Reference Range Interpretation Comments Globulin (test code = 76227-1) 4.7 2.3-3.5 H [facility]achieAlbumin/Globulin Cxiyu3218-95-98 16:40:00 * Test Item Value Reference Range Interpretation Comments Albumin/Globulin Ratio (test code = 1759-0) 0.5 0.8-2.0 L [facility]achieAlkaline Driaidlyjuk4877-40-48 16:40:00* Test Item Value Reference Range Interpretation Comments Alkaline Phosphatase (test code = 6768-6) 75 40-150 [facility] Centerodium Gustj4775-31-63 09:12:00* Test Item Value Reference Range Interpretation Comments Sodium Level (test code = 2951-2) 135 136-145 L [facility]achiePotassium Srqcn9063-50-93 09:12:00* Test Item Value Reference Range Interpretation Comments Potassium Level (test code = 2823-3) 4.9 3.5-5.1 [facility]achieChloride Mlxqk7470-33-40 09:12:00* Test Item Value Reference Range Interpretation Comments Chloride Level (test code = 2075-0) 104 98-107 [facility] W[facility]achieCarbon Dioxide Ukomn7399-74-42 09:12:00* Test Item Value Reference Range Interpretation Comments Carbon Dioxide Level (test code = 2028-9) 23 22-29 [facility] Wax[facility]achieAnion Wqn0819-67-24 09:12:00* Test Item Value Reference Range Interpretation Comments Anion Gap (test code = 15868-5) 12.9 8-16 [facility] W[facility]achieBlood Urea Uqydsjed9654-91-68 09:12:00* Test Item Value Reference Range Interpretation Comments Blood Urea Nitrogen (test code = 3094-0) 55 7-26 H [facility]achieCreatinine2019-01-03 09:12:00* Test Item Value Reference Range Interpretation Comments Creatinine (test code = 2160-0) 6.32 0.57-1.11 H [facility]ieBUN/Creatinine Mxbhw3963-98-01 09:12:00* Test Item Value Reference Range Interpretation Comments BUN/Creatinine Ratio (test code = 3097-3) 9 6-25 [facility] WaxahachieEstimat Glomerular Filtration Rate 2018-08-31 09:12:00* Test Item Value Reference Range Interpretation Comments Estimat Glomerular Filtration Rate (test code = 116293423) 6 >60 L Ranges were taken from the National Kidney Disease Education Program and the [facility] Kidney Foundation literature.Reference ranges:60 or greater: Efkopl73-47 ( for 3 consecutive months): Chronic kidney disease 15 or less: Kidney failureCHI [facility] Saint [facility]'S HospitalGlucose Dxptb4144-17-66 09:12:00* Test Item Value Reference Range Interpretation Comments Glucose Level (test code = NRT3660) 108 74-118 [facility]achieCalcium Gwnoa7018-33-67 09:12:00* Test Item Value Reference Range Interpretation Comments Calcium Level (test code = 62002-3) 10.1 8.4-10.2 [facility]ieWhite Blood Vafit9947-88-47 08:38:00* Test Item Value Reference Range Interpretation Comments White Blood Count (test code = 6690-2) 8.05 4.8-10.8 [facility] W[facility]achieRed Blood Wivvy3996-64-42 08:38:00* Test Item Value Reference Range Interpretation Comments Red Blood Count (test code = 789-8) 3.30 3.6-5.1 L [facility]achieHemoglobin2019-01-03 08:38:00* Test Item Value Reference Range Interpretation Comments Hemoglobin (test code = 62650-1) 9.1 12.0-16.0 L [facility]achieHematocrit2019-01-03 08:38:00* Test Item Value Reference Range Interpretation Comments Hematocrit (test code = 4544-3) 27.7 34.2-44.1 L [facility]achieMean Corpuscular Lrxnvl2848-95-30 08:38:00* Test Item Value Reference Range Interpretation Comments Mean Corpuscular Volume (test code = 787-2) 83.9 81-99 [facility]achieMean Corpuscular Nguqejtmsv3268-15-93 08:38:00* Test Item Value Reference Range Interpretation Comments Mean Corpuscular Hemoglobin (test code = 785-6) 27.6 28-32 L [facility] W[facility]achieMean Corpuscular Hemoglobin Concent 2018-08-31 08:38:00* Test Item Value Reference Range Interpretation Comments Mean Corpuscular Hemoglobin Concent (test code = 786-4) 32.9 31-35 [facility]achieRed Cell Distribution Dbbhu2078-72-33 08:38:00* Test Item Value Reference Range Interpretation Comments Red Cell Distribution Width (test code = 45149-5) 14.7 11.7 -14.4 H [facility] W[facility]achiePlatelet Cqnlk5007-84-28 08:38:00* Test Item Value Reference Range Interpretation Comments Platelet Count (test code = 777-3) 105 140-360 L [facility]achieNeutrophils (%) (Auto)2018-08-31 08:38:00 * Test Item Value Reference Range Interpretation Comments Neutrophils (%) (Auto) (test code = 60327-1) 72.3 38.7-80.0 [facility]achieLymphocytes (%) (Auto)2018-08-31 08:38:00 * Test Item Value Reference Range Interpretation Comments Lymphocytes (%) (Auto) (test code = 736-9) 16.6 18.0-39.1 L [facility]ieMonocytes (%) (Auto)2018-08-31 08:38:00* Test Item Value Reference Range Interpretation Comments Monocytes (%) (Auto) (test code = 5905-5) 6.7 4.4-11.3 [facility]ieEosinophils (%) (Auto)2018-08-31 08:38:00 * Test Item Value Reference Range Interpretation Comments Eosinophils (%) (Auto) (test code = 713-8) 3.2 0.0-6.0 [facility]ieBasophils (%) (Auto)2018-08-31 08:38:00* Test Item Value Reference Range Interpretation Comments Basophils (%) (Auto) (test code = 706-2) 0.7 0.0-1.0 [facility]ieIM GRANULOCYTES %2018-08-31 08:38:00* Test Item Value Reference Range Interpretation Comments IM GRANULOCYTES % (test code = IM GRANULOCYTES %) 0.5 0.0- 1.0 [facility]ieNeutrophils # (Auto)2018-08-31 08:38:00* Test Item Value Reference Range Interpretation Comments Neutrophils # (Auto) (test code = 751-8) 5.8 2.1-6.9 [facility]achieLymphocytes # (Auto)2018-08-31 08:38:00* Test Item Value Reference Range Interpretation Comments Lymphocytes # (Auto) (test code = 67024-2) 1.3 1.0-3.2 [facility]ieMonocytes # (Auto)2018-08-31 08:38:00* Test Item Value Reference Range Interpretation Comments Monocytes # (Auto) (test code = 742-7) 0.5 0.2-0.8 [facility]ieEosinophils # (Auto)2018-08-31 08:38:00* Test Item Value Reference Range Interpretation Comments Eosinophils # (Auto) (test code = 711-2) 0.3 0.0-0.4 [facility]ieBasophils # (Auto)2018-08-31 08:38:00* Test Item Value Reference Range Interpretation Comments Basophils # (Auto) (test code = 704-7) 0.1 0.0-0.1 [facility]achieAbsolute Immature Granulocyte (auto 2018-08-31 08:38:00* Test Item Value Reference Range Interpretation Comments Absolute Immature Granulocyte (auto (karo t code = Absolute Immature Granulocyte (auto) 0.04 0-0.1 [facility]ieHesan [facility] B Surface Antibody, Quant 2018-08-29 08:17:00* Test Item Value Reference Range Interpretation Comments Hepatitis B Surface Antibody, Quant (test code = 5194-6) 863.2 Status of Immunity Anti-HBs Level Inconsistent with Immunity 0.0 - 9.9Consistent with Immunity >9.9[facility] HospitalHesan [facility] B Core Total Xaoxofrp7987-40-72 08:17:00* Test Item Value Reference Range Interpretation Comments Hepatitis B Core Total Antibody (test code = 72841-9) Negative [facility] B Surface Fhlmpwq3954-22-70 08:17:00* Test Item Value Reference Range Interpretation Comments Hepatitis B Surface Antigen (test code = 5196-1) Negative [facility] B Core IgM Bvuxqfgg9920-75-70 08:17:00* Test Item Value Reference Range Interpretation Comments Hepatitis B Core IgM Antibody (test code = 24955-7) Negative [facility]ieHesan [facility] B Surface Antibody, Quant 2018-08-29 08:17:00* Test Item Value Reference Range Interpretation Comments Hepatitis B Surface Antibody, Quant (test code = 5194-6) 863.2 Status of Immunity Anti-HBs Level Inconsistent with Immunity 0.0 - 9.9Consistent with Immunity >9.9[facility] B Core Total Dkvfbrke3324-46-47 08:17:00* Test Item Value Reference Range Interpretation Comments Hepatitis B Core Total Antibody (test code = 44112-2) Negative [facility] B Surface Uhxkhhb4635-41-18 08:17:00* Test Item Value Reference Range Interpretation Comments Hepatitis B Surface Antigen (test code = 5196-1) Negative [facility] B Core IgM Rnqvowts2580-66-16 08:17:00* Test Item Value Reference Range Interpretation Comments Hepatitis B Core IgM Antibody (test code = 03045-3) Negative [facility]ieT[facility] Cidiaypks9239-55-14 07:47:00* Test Item Value Reference Range Interpretation Comments Total Bilirubin (test code = 1975-2) 0.9 0.2-1.2 [facility]achieAspartate Amino Transf (AST/SGOT) 2018-08-26 07:47:00* Test Item Value Reference Range Interpretation Comments Aspartate Amino Transf (AST/SGOT) (test code = Aspartate Amino Transf (AST/SGOT)) 21 5-34 [facility]achieAlanine Aminotransferase (ALT/SGPT) 2018-08-26 07:47:00* Test Item Value Reference Range Interpretation Comments Alanine Aminotransferase (ALT/SGPT) (test code = 1742-6) 15 0-55 [facility]ieTotal Tnkrbdp3308-15-08 07:47:00* Test Item Value Reference Range Interpretation Comments Total Protein (test code = 2885-2) 5.8 6.5-8.1 L [facility]achieAlbumin2018-12-29 07:47:00* Test Item Value Reference Range Interpretation Comments Albumin (test code = 1751-7) 2.6 3.5-5.0 L [facility] W[facility]achieGlobulin2018-12-29 07:47:00* Test Item Value Reference Range Interpretation Comments Globulin (test code = 46265-1) 3.2 2.3-3.5 [facility]achieAlbumin/Globulin Yruna2115-57-03 07:47:00 * Test Item Value Reference Range Interpretation Comments Albumin/Globulin Ratio (test code = 1759-0) 0.8 0.8-2.0 [facility]achieAlkaline Iovnzocyvuv0993-78-74 07:47:00* Test Item Value Reference Range Interpretation Comments Alkaline Phosphatase (test code = 6768-6) 67 40-150 [facility] EAB2513-22-00 16:21:00 [place] [address] Patient Name: MIGUEL FONTENOT MR #: [id number] : 1935 Age/Sex: 83/F Req #: [id number] Adm Physician: RODNEY SHIPMAN MD Ordered by: ABRAM WADDELL, KAMI WADDELL Report #: [id number] Location: [facility] Room/Bed: [facility] [place] Procedure: 1226-0 005 IR/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 Ultrasound was utilized for vascular access. A permanent image wa s saved to the medical record. Procedure performed using maximal sterile ba rrier technique. Signed by: Dr. Clifton Friedman DO on 09/04/2018 10:23 AM ORIGINAL REPORT Procedure: Tunneled hemodialysis catheter p lacement dated 08/23/2018. Automated Logistics Specialist: None. Medications: Versed 2 mg i ntravenous, [...] placed in the supine position on the ar uoroscopic table. 1% lidocaine was administered into [...] tract was serially di lated. Finally, a 16.5-Tristanian peel-away sheath was advanced over the wire und er fluoroscopic guidance. A 16 Tristanian Bard 23 cm tip to cuff split tip cathet er was then advanced through the peel-away sheath. This was noted to be too lo ng. At this point 2 Amplatz superstiff wires were then placed through the two lumens and a new 16 Tristanian Bard split tip 19 cm long tip [...] of a tunneled dual-lumen hemodi alysis catheter (16-Tristanian Bard split tip, 19-cm tip-cuff length) by a right i nternal jugular approach. The catheter is OK for immediate use. Signed b y: Dr. Clifton Friedman DO on 08/24/2018 4:30 PM Dictated By: CLIFTON FRIEDMAN DO 1023 Transcribed By: YAQUELIN on 08/31/18 1348 COPY TO: KAMI VALVERDE CHEST SINGLE (PORTABLE)2018-08-23 15:15:00 [place] [address] Patient Name: MIGUEL FONTENOT MR #: [id number] : 1935 Age/Sex: 83/F Req #: [id number] Adm Physician: RODNEY SHIPMAN MD Ordered by: RODNEY SHIPMAN MD Report #: [id number] Location: [facility] Room/Bed: IMCU 184-1 Procedure: 1226- 0061 DX/CHEST SINGLE (PORTABLE) Exam Date: 08/23/18 Exam Time: 1435 REPORT STATUS: Sign ed PROCEDURE: CHEST SINGLE (PORTABLE) COMPARISON: [facility], DX, CHEST SINGLE (PORTABLE), 05/20/2018, 6:04. INDICATIONS: [...] at 15:15 Dictated By: CLIFTON FRIEDMAN DO 1515 Trans cribed By: PENELOPE on 08/23/18 1515 COPY TO: RODNEY SHIPMAN MD Prothrombin Rikt7146-15-01 05:30:00* Test Item Value Reference Range Interpretation Comments Prothrombin Time (test code = 5902-2) 13.7 11.9-14.5 [facility]achieProthromb Time International Ratio 2018-08-23 05:30:00* Test Item Value Reference Range Interpretation Comments Prothromb Time International Ratio (test code = 6301-6) 0.96 Oral Anticoagulant Therapy INR Values:1. Low Intensity Therapy 1.5 - 2.02 . Moderate Intensity Therapy 2.0 - 3.03. High Intensity Therapy(1) 2.5 - 3. 54. High Intensity Therapy(2) 3.0 - 4.05. Panic Value INR > 5.0 [facility]achieProthrombin Klzr3672-39-76 05:30:00* Test Item Value Reference Range Interpretation Comments Prothrombin Time (test code = 5902-2) 13.7 11.9-14.5 [facility]ieProthromb Time International Ratio 2018-08-23 05:30:00* Test Item Value Reference Range Interpretation Comments Prothromb Time International Ratio (test code = 6301-6) 0.96 Oral Anticoagulant Therapy INR Values:1. Low Intensity Therapy 1.5 - 2.02 . Moderate Intensity Therapy 2.0 - 3.03. High Intensity Therapy(1) 2.5 - 3. 54. High Intensity Therapy(2) 3.0 - 4.05. Panic Value INR > 5.0 [facility]achieCT ABDOMEN/PELVIS FK1548-07-33 09:50:00 [place] [address] Patient Name: MIGUEL FONTENOT MR #: [id number] : 07/1935 Age/Sex: 83/F Req #: [id number] Adm Physician: RODNEY SHIPMAN MD Ordered by: ABRAM WADDELL, KAMI WADDELL Report #: [id number] Location: [facility] Room/Bed: [place] [address] Procedure: 1225-[address]/CT ABDOMEN/PELVIS WO Exam [...] COPY TO: KAMI VALVERDE Activated Partial Thromboplast Ubva3553-14-73 18:07:00* Test Item Value Reference Range Interpretation Comments Activated Partial Thromboplast Time (test code = 35142-9) 29.2 23.8-35.5 [facility]achieActivated Partial Thromboplast Time 2018-08-21 18:07:00* Test Item Value Reference Range Interpretation Comments Activated Partial Thromboplast Time (test code = 42071-8) 29.2 23.8-35.5 [facility]achieHepatibaptist memorial hospital for women B Surface Antibody, Quant 2018-05-21 14:59:00* Test Item Value Reference Range Interpretation Comments Hepatitis B Surface Antibody, Quant (test code = 5194-6) 828.4 Immunity>9.9 Status of Immunity Anti-HBs Level Inconsistent with Immunity 0.0 - 9.9Consistent with Immunity >9.9[facility]Hep[facility] Core Total Iracclor8084-04-63 14:59:00* Test Item Value Reference Range Interpretation Comments Hepatitis B Core Total Antibody (test code = 29038-0) Negative Negative Performed at: [facility] Lab[address] [id number] Director: Winston Mcmillan MD, Phone: [phone] Scott & [facility] Center – WaxahachieHepatitis B Surface Moflbxo7281-39-47 14:59:00* Test Item Value Reference Range Interpretation Comments Hepatitis B Surface Antigen (test code = 5196-1) Negative Negat bhavna [facility]achieWhite Blood Vwbas6397-96-12 05:13:00* Test Item Value Reference Range Interpretation Comments White Blood Count (test code = 6690-2) 12.40 4.8-10.8 H VERIFIED PREVIOUS RESULTSBaylor Scott & [facility] Medical Center – WaxahachieRed Blood Count 2018-05-21 05:13:00* Test Item Value Reference Range Interpretation Comments Red Blood Count (test code = 789-8) 2.64 3.6-5.1 L [facility] W[facility]achieHemoglobin2018-09-23 05:13:00* Test Item Value Reference Range Interpretation Comments Hemoglobin (test code = 32755-8) 8.0 12.0-16.0 L [facility]achieHematocrit2018-09-23 05:13:00* Test Item Value Reference Range Interpretation Comments Hematocrit (test code = 4544-3) 25.1 34.2-44.1 L [facility]ahachieMean Corpuscular Fwlbzq8376-16-70 05:13:00* Test Item Value Reference Range Interpretation Comments Mean Corpuscular Volume (test code = 787-2) 95.1 81-99 [facility] Wax[facility]achieMean Corpuscular Okvzhwdtjz3320-20-82 05:13:00* Test Item Value Reference Range Interpretation Comments Mean Corpuscular Hemoglobin (test code = 785-6) 30.3 28-32 [facility] Wax[facility]achieMean Corpuscular Hemoglobin Concent 2018-05-21 05:13:00* Test Item Value Reference Range Interpretation Comments Mean Corpuscular Hemoglobin Concent (test code = 786-4) 31.9 31-35 [facility] WaxahachieRed Cell Distribution Rrwzd6682-79-64 05:13:00* Test Item Value Reference Range Interpretation Comments Red Cell Distribution Width (test code = 46658-8) 17.4 11.7 -14.4 H [facility] WaxahachiePlatelet Nmwni2090-88-33 05:13:00* Test Item Value Reference Range Interpretation Comments Platelet Count (test code = 777-3) 192 140-360 VERIFIED PREVIOUS RESULTSBaylor Scott & White Medical Center – WaxahachieNeutrophils (%) (Auto)2018-05-21 05:13:00* Test Item Value Reference Range Interpretation Comments Neutrophils (%) (Auto) (test code = 69115-5) 83.1 38.7-80.0 H [facility]achieLymphocytes (%) (Auto)2018-05-21 05:13:00 * Test Item Value Reference Range Interpretation Comments Lymphocytes (%) (Auto) (test code = 736-9) 10.2 18.0-39.1 L [facility]ieMonocytes (%) (Auto)2018-05-21 05:13:00* Test Item Value Reference Range Interpretation Comments Monocytes (%) (Auto) (test code = 5905-5) 5.7 4.4-11.3 [facility]ieEosinophils (%) (Auto)2018-05-21 05:13:00 * Test Item Value Reference Range Interpretation Comments Eosinophils (%) (Auto) (test code = 713-8) 0.2 0.0-6.0 [facility]achieBasophils (%) (Auto)2018-05-21 05:13:00* Test Item Value Reference Range Interpretation Comments Basophils (%) (Auto) (test code = 706-2) 0.2 0.0-1.0 [facility]achieIM GRANULOCYTES %2018-05-21 05:13:00* Test Item Value Reference Range Interpretation Comments IM GRANULOCYTES % (test code = IM GRANULOCYTES %) 0.6 0.0- 1.0 [facility]ieNeutrophils # (Auto)2018-05-21 05:13:00* Test Item Value Reference Range Interpretation Comments Neutrophils # (Auto) (test code = 751-8) 10.3 2.1-6.9 H [facility]achieLymphocytes # (Auto)2018-05-21 05:13:00* Test Item Value Reference Range Interpretation Comments Lymphocytes # (Auto) (test code = 87737-1) 1.3 1.0-3.2 [facility]achieMonocytes # (Auto)2018-05-21 05:13:00* Test Item Value Reference Range Interpretation Comments Monocytes # (Auto) (test code = 742-7) 0.7 0.2-0.8 [facility]ieEosinophils # (Auto)2018-05-21 05:13:00* Test Item Value Reference Range Interpretation Comments Eosinophils # (Auto) (test code = 711-2) 0.0 0.0-0.4 [facility]achieBasophils # (Auto)2018-05-21 05:13:00* Test Item Value Reference Range Interpretation Comments Basophils # (Auto) (test code = 704-7) 0.0 0.0-0.1 [facility] W[facility]achieAbsolute Immature Granulocyte (auto 2018-05-21 05:13:00* Test Item Value Reference Range Interpretation Comments Absolute Immature Granulocyte (auto (karo t code = Absolute Immature Granulocyte (auto) 0.08 0-0.1 [facility] W[facility]achieBlood Eidoksh7602-92-51 12:15:00* Test Item Value Reference Range Interpretation Comments Blood Culture (test code = 13715288) NO GROWTH AFTER 5 DAYS, FINAL REPORT [facility] WaxahachieBlood Tysunnj1816-30-15 12:15:00* Test Item Value Reference Range Interpretation Comments Blood Culture (test code = 20177649) NO GROWTH AFTER 5 DAYS, FINAL REPORT [facility] WaxahachieCHEST SINGLE (PORTABLE)2018-05-20 06:33:00 [place] [address] Patient Name: MIGUEL FONTENOT MR #: [id number] : 1935 Age/Sex: 82/F Req #: [id number] Adm Physician: CHRISTEL HATHAWAY MD Ordered by: ZEINA ALBRIGHT NP Report #: [id number] Location: MED/SURG2 Room/Bed: [facility] Procedure: 0922-0 003 DX/CHEST SINGLE (PORTABLE) Exam Date: 05/20/18 [...] on 05/20/18634 COPY T O: ZEINA ALBRIGHT NP Sodium Zprhb3823-21-80 05:27:00* Test Item Value Reference Range Interpretation Comments Sodium Level (test code = 2951-2) 139 136-145 [facility] WaxahachiePotassium Mdblk7848-66-55 05:27:00* Test Item Value Reference Range Interpretation Comments Potassium Level (test code = 2823-3) 3.6 3.5-5.1 [facility] W[facility]achieChloride Ykxly0267-30-12 05:27:00* Test Item Value Reference Range Interpretation Comments Chloride Level (test code = 2075-0) 104 98-107 [facility] Wax[facility]achieCarbon Dioxide Trgfd7391-42-74 05:27:00* Test Item Value Reference Range Interpretation Comments Carbon Dioxide Level (test code = 2028-9) 22 -29 [facility] WaxahachieAnion Uam0257-07-51 05:27:00* Test Item Value Reference Range Interpretation Comments Anion Gap (test code = 72624-2) 16.6 8-16 H [facility] W[facility]achieBlood Urea Ywpefxky9711-29-02 05:27:00* Test Item Value Reference Range Interpretation Comments Blood Urea Nitrogen (test code = 3094-0) 20 7-26 [facility] WaxahachieCreatinine2018-09-22 05:27:00* Test Item Value Reference Range Interpretation Comments Creatinine (test code = 2160-0) 5.17 0.57-1.11 H [facility] WaxahachieBUN/Creatinine Qljzt0746-87-92 05:27:00* Test Item Value Reference Range Interpretation Comments BUN/Creatinine Ratio (test code = 3097-3) 4 6-25 L [facility] WaxahachieEstimat Glomerular Filtration Rate 2018-05-20 05:27:00* Test Item Value Reference Range Interpretation Comments Estimat Glomerular Filtration Rate (test code = 115566362) 8 >60 L Ranges were taken from the National Kidney Disease Education Program and the [facility] cent[facility] Kidney Foundation literature.Reference ranges:60 or greater: Vqepyx72-87 ( for 3 consecutive months): Chronic kidney disease 15 or less: Kidney failureBaylor Scott & White Medical Center – WaxahachieGlucose Rtukr5030-78-97 05:27:00* Test Item Value Reference Range Interpretation Comments Glucose Level (test code = NVQ4907) 194 74-118 H [facility] WaxahachieCalcium Ocgwu6710-26-44 05:27:00* Test Item Value Reference Range Interpretation Comments Calcium Level (test code = 28484-5) 8.3 8.4-10.2 L [facility] WaxahachieCreatine Kinase IJ2343-41-06 11:10:00* Test Item Value Reference Range Interpretation Comments Creatine Kinase MB (test code = 64490-7) 0.70 0-5.0 [facility] WaxahachieTrfort [facility]oun [facility] [place]nin L1376-84-42 11:10:00* Test Item Value Reference Range Interpretation Comments Troponin I (test code = FRW8564) 0.006 0-0.300 [facility] WaxahachieCreatine Kinase VN6915-33-63 11:10:00* Test Item Value Reference Range Interpretation Comments Creatine Kinase MB (test code = 74952-6) 0.70 0-5.0 [facility] WaxahachieTroponin J2581-37-19 11:10:00* Test Item Value Reference Range Interpretation Comments Troponin I (test code = CHD9740) 0.006 0-0.300 [facility] WaxahachieCreatine Kinase QE4432-21-95 11:10:00* Test Item Value Reference Range Interpretation Comments Creatine Kinase MB (test code = 79862-4) 0.70 0-5.0 [facility] W[place]ahachieTrErica [place]ille [address]Q4110-06-17 11:10:00* Test Item Value Reference Range Interpretation Comments Troponin I (test code = KJV8271) 0.006 0-0.300 [facility] WaxahachieMagnesium Ckmzc9419-40-34 11:07:00* Test Item Value Reference Range Interpretation Comments Magnesium Level (test code = 57788-6) 1.7 1.3-2.1 [facility] W[facility]achieTotal Cpoeanlbo7207-07-67 11:07:00* Test Item Value Reference Range Interpretation Comments Total Bilirubin (test code = 1975-2) 0.9 0.2-1.2 [facility] WaxahachieAspartate Amino Transf (AST/SGOT) 2018-05-19 11:07:00* Test Item Value Reference Range Interpretation Comments Aspartate Amino Transf (AST/SGOT) (test code = Aspartate Amino Transf (AST/SGOT)) 18 5-34 [facility] WaxahachieAlanine Aminotransferase (ALT/SGPT) 2018-05-19 11:07:00* Test Item Value Reference Range Interpretation Comments Alanine Aminotransferase (ALT/SGPT) (test code = 1742-6) 12 0-55 [facility]achieTotal Davaecg4110-98-01 11:07:00* Test Item Value Reference Range Interpretation Comments Total Protein (test code = 2885-2) 6.5 6.5-8.1 [facility] WaxahachieAlbumin2018-09-21 11:07:00* Test Item Value Reference Range Interpretation Comments Albumin (test code = 1751-7) 2.8 3.5-5.0 L [facility] WaxahachieGlobulin2018-09-21 11:07:00* Test Item Value Reference Range Interpretation Comments Globulin (test code = 65362-0) 3.7 2.3-3.5 H [facility] WaxahachieAlbumin/Globulin Pjgsi9307-99-73 11:07:00 * Test Item Value Reference Range Interpretation Comments Albumin/Globulin Ratio (test code = 1759-0) 0.8 0.8-2.0 [facility]achieAlkaline Cfnqtbusqan0464-73-76 11:07:00* Test Item Value Reference Range Interpretation Comments Alkaline Phosphatase (test code = 6768-6) 109 40-150 [facility]achieCreatine Fqtflx5043-74-76 11:07:00* Test Item Value Reference Range Interpretation Comments Creatine Kinase (test code = 2157-6) 44 29-168 [facility] WaxahachieMagnesium Muqsy1080-26-69 11:07:00* Test Item Value Reference Range Interpretation Comments Magnesium Level (test code = 88347-3) 1.7 1.3-2.1 [facility]achieCreatine Dqeqzx1485-87-79 11:07:00* Test Item Value Reference Range Interpretation Comments Creatine Kinase (test code = 2157-6) 44 29-168 [facility] WaxahachieMagnesium Xmhwt3002-88-89 11:07:00* Test Item Value Reference Range Interpretation Comments Magnesium Level (test code = 40350-2) 1.7 1.3-2.1 [facility]achieCreatine Qjvolx6059-28-61 11:07:00* Test Item Value Reference Range Interpretation Comments Creatine Kinase (test code = 2157-6) 44 29-168 [facility] W[facility]achieIron Fqzqv4262-69-53 11:06:00* Test Item Value Reference Range Interpretation Comments Iron Level (test code = 2498-4) 84 50-170 [facility]achieTotal Iron Binding Zafzfaxz0229-24-93 11:06:00* Test Item Value Reference Range Interpretation Comments Total Iron Binding Capacity (test code = 2500-7) 280 261-4 78 [facility] W[facility]achiePercent Iron Wfelvnnlrp4352-78-32 11:06:00* Test Item Value Reference Range Interpretation Comments Percent Iron Saturation (test code = 2502-3) 30 15-50 [facility] WaxahachieTransferrin2018-09-21 11:06:00* Test Item Value Reference Range Interpretation Comments Transferrin (test code = 3034-6) 200 180-382 [facility] Nlmnf5575-23-64 11:06:00* Test Item Value Reference Range Interpretation Comments Iron Level (test code = 2498-4) 84 50-170 [facility] Iron Binding Tlhppvjo5697-39-58 11:06:00* Test Item Value Reference Range Interpretation Comments Total Iron Binding Capacity (test code = 2500-7) 280 261-4 78 [facility] Texascent Iron Erotbhapmm1568-24-54 11:06:00* Test Item Value Reference Range Interpretation Comments Percent Iron Saturation (test code = 2502-3) 30 15-50 [facility] W[facility]achieTransferrin2018-09-21 11:06:00* Test Item Value Reference Range Interpretation Comments Transferrin (test code = 3034-6) 200 180-382 [facility] Ntlca2937-69-35 11:06:00* Test Item Value Reference Range Interpretation Comments Iron Level (test code = 2498-4) 84 50-170 [facility] Iron Binding Agwrowex5829-13-15 11:06:00* Test Item Value Reference Range Interpretation Comments Total Iron Binding Capacity (test code = 2500-7) 280 261-4 78 [facility]cent Iron Csspafpxpg4611-38-24 11:06:00* Test Item Value Reference Range Interpretation Comments Percent Iron Saturation (test code = 2502-3) 30 15-50 [facility] W[facility]achieTransferrin2018-09-21 11:06:00* Test Item Value Reference Range Interpretation Comments Transferrin (test code = 3034-6) 200 180-382 [facility] Wax[facility]achieProthrombin Iwds7570-49-95 11:05:00* Test Item Value Reference Range Interpretation Comments Prothrombin Time (test code = 5902-2) 14.2 11.9-14.5 [facility] WaxahachieProthromb Time International Ratio 2018-05-19 11:05:00* Test Item Value Reference Range Interpretation Comments Prothromb Time International Ratio (test code = 6301-6) 1.01 Oral Anticoagulant Therapy INR Values:1. Low Intensity Therapy 1.5 - 2.02 . Moderate Intensity Therapy 2.0 - 3.03. High Intensity Therapy(1) 2.5 - 3. 54. High Intensity Therapy(2) 3.0 - 4.05. Panic Value INR > 5.0 [facility] WaxahachieActivated Partial Thromboplast Time 2018-05-19 11:05:00* Test Item Value Reference Range Interpretation Comments Activated Partial Thromboplast Time (test code = 16102-5) 28.6 23.8-35.5 [facility] WaxahachieUrine XYX5449-81-29 10:59:00* Test Item Value Reference Range Interpretation Comments Urine WBC (test code = 5821-4) NONE 0-5 [facility] WaxahachieUrine GUW3765-32-72 10:59:00* Test Item Value Reference Range Interpretation Comments Urine RBC (test code = 67766-7) NONE 0-5 [facility] WaxahachieUrine Hpdgeqce2018-27-80 10:59:00* Test Item Value Reference Range Interpretation Comments Urine Bacteria (test code = 65157-3) NONE NONE [facility] WaxahachieUrine Epithelial Pzndn7374-38-18 10:59:00 * Test Item Value Reference Range Interpretation Comments Urine Epithelial Cells (test code = 78697-0) MODERATE NONE [facility] WaxahachieUrine LAW9947-51-23 10:59:00* Test Item Value Reference Range Interpretation Comments Urine WBC (test code = 5821-4) NONE 0-5 [facility] Wax[facility]achieUrine TMA9659-71-79 10:59:00* Test Item Value Reference Range Interpretation Comments Urine RBC (test code = 24182-1) NONE 0-5 [facility] W[facility]achieUrine Hdophnxr9263-42-28 10:59:00* Test Item Value Reference Range Interpretation Comments Urine Bacteria (test code = 49011-3) NONE NONE [facility] WaxahachieUrine Epithelial Dsuho6054-08-58 10:59:00 * Test Item Value Reference Range Interpretation Comments Urine Epithelial Cells (test code = 23246-1) MODERATE NONE [facility] W[facility]achieUrine VZE4811-21-86 10:59:00* Test Item Value Reference Range Interpretation Comments Urine WBC (test code = 5821-4) NONE 0-5 [facility] W[facility]achieUrine JFN3185-51-38 10:59:00* Test Item Value Reference Range Interpretation Comments Urine RBC (test code = 34551-9) NONE 0-5 [facility]achieUrine Xdtdpagk9607-02-21 10:59:00* Test Item Value Reference Range Interpretation Comments Urine Bacteria (test code = 99241-6) NONE NONE [facility] WaxahachieUrine Epithelial Fgndr3041-68-24 10:59:00 * Test Item Value Reference Range Interpretation Comments Urine Epithelial Cells (test code = 93995-2) MODERATE NONE [facility] W[facility]achieUrine Hjcdg8241-70-33 10:51:00* Test Item Value Reference Range Interpretation Comments Urine Color (test code = 5778-6) YELLOW YELLOW [facility]achieUrine Sqmwaxw8705-98-26 10:51:00* Test Item Value Reference Range Interpretation Comments Urine Clarity (test code = 64508-2) SL CLOUDY CLEAR [facility] W[facility]achieUrine Specific Fflyokw1714-66-76 10:51:00 * Test Item Value Reference Range Interpretation Comments Urine Specific [place] (test code = 5811-5) 1.010 1.010-1.02 5 [facility]achieUrine vS7205-23-67 10:51:00* Test Item Value Reference Range Interpretation Comments Urine pH (test code = 69826-2) 7 5-7 [facility]ieUrine Leukocyte Agoqyhlk5831-60-28 10:51:00* Test Item Value Reference Range Interpretation Comments Urine Leukocyte Esterase (test code = 5799-2) NEGATIVE NEGATIVE [facility]achieUrine Wblbxaz3742-37-53 10:51:00* Test Item Value Reference Range Interpretation Comments Urine Nitrite (test code = 55614-6) NEGATIVE NEGATIVE [facility]achieUrine Snxroub0839-46-03 10:51:00* Test Item Value Reference Range Interpretation Comments Urine Protein (test code = 5804-0) 2+ NEGATIVE H [facility] WaxahachieUrine Glucose (UA)2018-05-19 10:51:00* Test Item Value Reference Range Interpretation Comments Urine Glucose (UA) (test code = 2349-9) NEGATIVE NEGATIVE [facility] Ahyqmxe8413-81-65 10:51:00* Test Item Value Reference Range Interpretation Comments Urine Ketones (test code = 74863-4) NEGATIVE NEGATIVE [facility] Lfqrhnmjgrcl2723-45-33 10:51:00* Test Item Value Reference Range Interpretation Comments Urine Urobilinogen (test code = 19110-9) 0.2 0.2-1 [facility] Ouhahzvut7723-70-51 10:51:00* Test Item Value Reference Range Interpretation Comments Urine Bilirubin (test code = 1978-6) NEGATIVE NEGATIVE [facility] Znlgi5165-38-54 10:51:00* Test Item Value Reference Range Interpretation Comments Urine Blood (test code = 10280-0) NEGATIVE NEGATIVE [facility] Pghhj0249-71-51 10:51:00* Test Item Value Reference Range Interpretation Comments Urine Color (test code = 5778-6) YELLOW YELLOW [facility] Lxffsrp7647-09-51 10:51:00* Test Item Value Reference Range Interpretation Comments Urine Clarity (test code = 20574-8) SL CLOUDY CLEAR [facility] Specific Eiefrcd1275-57-01 10:51:00 * Test Item Value Reference Range Interpretation Comments Urine Specific Sterling (test code = 5811-5) 1.010 1.010-1.02 5 [facility] kE7661-65-47 10:51:00* Test Item Value Reference Range Interpretation Comments Urine pH (test code = 66145-9) 7 5-7 [facility] Leukocyte Lfhsiswp5802-77-43 10:51:00* Test Item Value Reference Range Interpretation Comments Urine Leukocyte Esterase (test code = 5799-2) NEGATIVE NEGATIVE [facility] Jsgmqkc0445-16-43 10:51:00* Test Item Value Reference Range Interpretation Comments Urine Nitrite (test code = 51763-8) NEGATIVE NEGATIVE [facility] Jnygvls9525-07-60 10:51:00* Test Item Value Reference Range Interpretation Comments Urine Protein (test code = 5804-0) 2+ NEGATIVE H [facility] Glucose (UA)2018-05-19 10:51:00* Test Item Value Reference Range Interpretation Comments Urine Glucose (UA) (test code = 2349-9) NEGATIVE NEGATIVE [facility] Aopocsh1587-20-57 10:51:00* Test Item Value Reference Range Interpretation Comments Urine Ketones (test code = 30495-2) NEGATIVE NEGATIVE [facility] Hyiebooeywjg9358-22-26 10:51:00* Test Item Value Reference Range Interpretation Comments Urine Urobilinogen (test code = 77393-8) 0.2 0.2-1 [facility] Xgdkzsigj6846-85-70 10:51:00* Test Item Value Reference Range Interpretation Comments Urine Bilirubin (test code = 1978-6) NEGATIVE NEGATIVE [facility] Kgbpb3156-42-50 10:51:00* Test Item Value Reference Range Interpretation Comments Urine Blood (test code = 89168-9) NEGATIVE NEGATIVE [facility] Xwshu3316-10-96 10:51:00* Test Item Value Reference Range Interpretation Comments Urine Color (test code = 5778-6) YELLOW YELLOW [facility] Hfdovsi2406-00-93 10:51:00* Test Item Value Reference Range Interpretation Comments Urine Clarity (test code = 21856-3) SL CLOUDY CLEAR [facility] Specific Pibmtmi7731-05-01 10:51:00 * Test Item Value Reference Range Interpretation Comments Urine Specific Sterling (test code = 5811-5) 1.010 1.010-1.02 5 [facility] mV8865-04-79 10:51:00* Test Item Value Reference Range Interpretation Comments Urine pH (test code = 01123-4) 7 5-7 [facility] Leukocyte Bafvhkds7772-45-72 10:51:00* Test Item Value Reference Range Interpretation Comments Urine Leukocyte Esterase (test code = 5799-2) NEGATIVE NEGATIVE [facility] Qszcroh2629-21-29 10:51:00* Test Item Value Reference Range Interpretation Comments Urine Nitrite (test code = 88274-5) NEGATIVE NEGATIVE [facility] Mpmoiei8796-16-47 10:51:00* Test Item Value Reference Range Interpretation Comments Urine Protein (test code = 5804-0) 2+ NEGATIVE H [facility] Glucose (UA)2018-05-19 10:51:00* Test Item Value Reference Range Interpretation Comments Urine Glucose (UA) (test code = 2349-9) NEGATIVE NEGATIVE [facility] Pxlbjxm3001-02-43 10:51:00* Test Item Value Reference Range Interpretation Comments Urine Ketones (test code = 18791-5) NEGATIVE NEGATIVE [facility] Znfclprwzhqm3069-72-85 10:51:00* Test Item Value Reference Range Interpretation Comments Urine Urobilinogen (test code = 40461-1) 0.2 0.2-1 [facility] Ftfksvsko8701-50-67 10:51:00* Test Item Value Reference Range Interpretation Comments Urine Bilirubin (test code = 1978-6) NEGATIVE NEGATIVE [facility] Juwnn3278-24-94 10:51:00* Test Item Value Reference Range Interpretation Comments Urine Blood (test code = 52546-8) NEGATIVE NEGATIVE [facility]ieBlood Gzpwits9003-23-25 10:07:00* Test Item Value Reference Range Interpretation Comments Blood Culture (test code = 90425197) NO GROWTH AFTER 72 HOURS [facility]iePotassium Glwzy1459-59-04 15:49:00* Test Item Value Reference Range Interpretation Comments Potassium Level (test code = 2823-3) 4.2 3.5-5.1 [facility] Zurti0709-02-87 05:45:00* Test Item Value Reference Range Interpretation Comments Sodium Level (test code = 2951-2) 144 136-145 [facility]ieChloride Gqdbz3696-25-48 05:45:00* Test Item Value Reference Range Interpretation Comments Chloride Level (test code = 2075-0) 107 98-107 [facility]ieCarbon Dioxide Iqerk9405-37-19 05:45:00* Test Item Value Reference Range Interpretation Comments Carbon Dioxide Level (test code = 2028-9) 27 22-29 [facility]ieAnion Yrh1193-71-32 05:45:00* Test Item Value Reference Range Interpretation Comments Anion Gap (test code = 93208-2) 12.9 8-16 [facility]ieBlood Urea Oeawyjok8211-65-40 05:45:00* Test Item Value Reference Range Interpretation Comments Blood Urea Nitrogen (test code = 3094-0) 15 7-26 [facility]ieCreatinine2018-09-19 05:45:00* Test Item Value Reference Range Interpretation Comments Creatinine (test code = 2160-0) 4.75 0.57-1.11 H [facility]ieBUN/Creatinine Jccch1771-94-28 05:45:00* Test Item Value Reference Range Interpretation Comments BUN/Creatinine Ratio (test code = 3097-3) 3 6-25 L [facility]achieEstimat Glomerular Filtration Rate 2018-05-17 05:45:00* Test Item Value Reference Range Interpretation Comments Estimat Glomerular Filtration Rate (test code = 782524145) 9 >60 L Ranges were taken from the National Kidney Disease Education Program and the [facility] literature.Reference ranges:60 or greater: Foqgbb86-58 ( for 3 consecutive months): Chronic kidney disease 15 or less: Kidney failureBaylor [facility] & [facility] – WaxahachieGlucose Ovskd0197-80-27 05:45:00* Test Item Value Reference Range Interpretation Comments Glucose Level (test code = ILI7831) 123 74-118 H [facility]ieCalcium Thvjw1097-96-90 05:45:00* Test Item Value Reference Range Interpretation Comments Calcium Level (test code = 55946-6) 8.3 8.4-10.2 L [facility]ieWhite Blood Pmipg7864-17-01 05:31:00* Test Item Value Reference Range Interpretation Comments White Blood Count (test code = 6690-2) 5.15 4.8-10.8 [facility]ieRed Blood Aqtov7539-68-66 05:31:00* Test Item Value Reference Range Interpretation Comments Red Blood Count (test code = 789-8) 2.43 3.6-5.1 L [facility]ieHemoglobin2018-09-19 05:31:00* Test Item Value Reference Range Interpretation Comments Hemoglobin (test code = 83510-0) 7.5 12.0-16.0 L [facility]ieHematocrit2018-09-19 05:31:00* Test Item Value Reference Range Interpretation Comments Hematocrit (test code = 4544-3) 22.7 34.2-44.1 L Results called to BLANCHE GUTIÉRREZRN at 0529 on 05/17/18 by Finn Alexis. RB [place]. [facility]achieMean Corpuscular Lgklmh9043-81-90 05:31:00* Test Item Value Reference Range Interpretation Comments Mean Corpuscular Volume (test code = 787-2) 93.4 81-99 [facility]ieMean Corpuscular Piugunhvuh0654-61-35 05:31:00* Test Item Value Reference Range Interpretation Comments Mean Corpuscular Hemoglobin (test code = 785-6) 30.9 28-32 [facility]ieMean Corpuscular Hemoglobin Concent 2018-05-17 05:31:00* Test Item Value Reference Range Interpretation Comments Mean Corpuscular Hemoglobin Concent (test code = 786-4) 33.0 31-35 [facility]ieRed Cell Distribution Zwqjy1747-94-62 05:31:00* Test Item Value Reference Range Interpretation Comments Red Cell Distribution Width (test code = 93082-4) 15.3 11.7 -14.4 H [facility]iePlatelet Amebf9397-62-99 05:31:00* Test Item Value Reference Range Interpretation Comments Platelet Count (test code = 777-3) 185 140-360 [facility]ieNeutrophils (%) (Auto)2018-05-17 05:31:00 * Test Item Value Reference Range Interpretation Comments Neutrophils (%) (Auto) (test code = 15378-1) 63.6 38.7-80.0 [facility]ieLymphocytes (%) (Auto)2018-05-17 05:31:00 * Test Item Value Reference Range Interpretation Comments Lymphocytes (%) (Auto) (test code = 736-9) 18.3 18.0-39.1 [facility]ieMonocytes (%) (Auto)2018-05-17 05:31:00* Test Item Value Reference Range Interpretation Comments Monocytes (%) (Auto) (test code = 5905-5) 13.6 4.4-11.3 H [facility]ieEosinophils (%) (Auto)2018-05-17 05:31:00 * Test Item Value Reference Range Interpretation Comments Eosinophils (%) (Auto) (test code = 713-8) 3.5 0.0-6.0 [facility]ieBasophils (%) (Auto)2018-05-17 05:31:00* Test Item Value Reference Range Interpretation Comments Basophils (%) (Auto) (test code = 706-2) 0.6 0.0-1.0 [facility]ieIM GRANULOCYTES %2018-05-17 05:31:00* Test Item Value Reference Range Interpretation Comments IM GRANULOCYTES % (test code = IM GRANULOCYTES %) 0.4 0.0- 1.0 [facility]ieNeutrophils # (Auto)2018-05-17 05:31:00* Test Item Value Reference Range Interpretation Comments Neutrophils # (Auto) (test code = 751-8) 3.3 2.1-6.9 [facility]ieLymphocytes # (Auto)2018-05-17 05:31:00* Test Item Value Reference Range Interpretation Comments Lymphocytes # (Auto) (test code = 06459-7) 0.9 1.0-3.2 L [facility]ieMonocytes # (Auto)2018-05-17 05:31:00* Test Item Value Reference Range Interpretation Comments Monocytes # (Auto) (test code = 742-7) 0.7 0.2-0.8 [facility]ieEosinophils # (Auto)2018-05-17 05:31:00* Test Item Value Reference Range Interpretation Comments Eosinophils # (Auto) (test code = 711-2) 0.2 0.0-0.4 [facility]ieBasophils # (Auto)2018-05-17 05:31:00* Test Item Value Reference Range Interpretation Comments Basophils # (Auto) (test code = 704-7) 0.0 0.0-0.1 [facility]achieAbsolute Immature Granulocyte (auto 2018-05-17 05:31:00* Test Item Value Reference Range Interpretation Comments Absolute Immature Granulocyte (auto (karo t code = Absolute Immature Granulocyte (auto) 0.02 0-0.1 [facility]ieVitamin B12 Vthld6639-05-43 10:46:00* Test Item Value Reference Range Interpretation Comments Vitamin B12 Level (test code = 31703-8) 539 213-816 [facility] W[facility]achieFolate2018-09-18 10:46:00* Test Item Value Reference Range Interpretation Comments Folate (test code = 2284-8) 7.3 7.0-15.4 [facility]achieVitamin B12 Disty0726-83-66 10:46:00* Test Item Value Reference Range Interpretation Comments Vitamin B12 Level (test code = 81935-9) 539 213-816 [facility] W[facility]achieFolate2018-09-18 10:46:00* Test Item Value Reference Range Interpretation Comments Folate (test code = 2284-8) 7.3 7.0-15.4 [facility]ieVitamin B12 Ntrsw0042-82-45 10:46:00* Test Item Value Reference Range Interpretation Comments Vitamin B12 Level (test code = 89310-6) 539 213-816 [facility]achieFolate2018-09-18 10:46:00* Test Item Value Reference Range Interpretation Comments Folate (test code = 2284-8) 7.3 7.0-15.4 [facility]ieVitamin B12 Stxgj4388-26-05 10:46:00* Test Item Value Reference Range Interpretation Comments Vitamin B12 Level (test code = 89388-0) 539 213-816 [facility]ieFolate2018-09-18 10:46:00* Test Item Value Reference Range Interpretation Comments Folate (test code = 2284-8) 7.3 7.0-15.4 [facility]ieIron Ughoz5182-56-41 10:12:00* Test Item Value Reference Range Interpretation Comments Iron Level (test code = 2498-4) 37 50-170 L [facility]ieTotal Iron Binding Nyerjibx1236-89-72 10:12:00* Test Item Value Reference Range Interpretation Comments Total Iron Binding Capacity (test code = 2500-7) 217 261-4 78 L [facility]iePercent Iron Szpepugjok6666-95-42 10:12:00* Test Item Value Reference Range Interpretation Comments Percent Iron Saturation (test code = 2502-3) 17 15-50 [facility]ieTransferrin2018-09-18 10:12:00* Test Item Value Reference Range Interpretation Comments Transferrin (test code = 3034-6) 155 180-382 L [facility] W[facility]achiePercent Reticulocyte Brnpw2113-91-34 09:58:00* Test Item Value Reference Range Interpretation Comments Percent Reticulocyte Count (test code = 13772-5) 4.5 0.8-2 .2 H [facility]iePercent Reticulocyte Txdsl5598-05-03 09:58:00* Test Item Value Reference Range Interpretation Comments Percent Reticulocyte Count (test code = 74426-0) 4.5 0.8-2 .2 H [facility]iePercent Reticulocyte Hmjoy0281-62-76 09:58:00* Test Item Value Reference Range Interpretation Comments Percent Reticulocyte Count (test code = 50354-1) 4.5 0.8-2 .2 H [facility]iePercent Reticulocyte Ygoex3888-37-29 09:58:00* Test Item Value Reference Range Interpretation Comments Percent Reticulocyte Count (test code = 89220-1) 4.5 0.8-2 .2 H [facility]ieUrine QXK4211-98-00 12:46:00* Test Item Value Reference Range Interpretation Comments Urine WBC (test code = 5821-4) 0-5 0-5 [facility]ieUrine OOF0735-60-09 12:46:00* Test Item Value Reference Range Interpretation Comments Urine RBC (test code = 99866-8) 0-5 0-5 [facility]ieUrine Ncntofcj0600-64-62 12:46:00* Test Item Value Reference Range Interpretation Comments Urine Bacteria (test code = 01331-0) NONE [facility]udaUrine Epithelial Gzqbl8966-14-89 12:46:00 * Test Item Value Reference Range Interpretation Comments Urine Epithelial Cells (test code = 73776-6) MANY NONE [facility]ieUrine Transitional Epithelial Cells 2018-05-15 12:46:00* Test Item Value Reference Range Interpretation Comments Urine Transitional Epithelial Cells (test code = 8249-5) [facility] 2018-05-15 12:46:00* Test Item Value Reference Range Interpretation Comments Urine Transitional Epithelial Cells (test code = 8249-5) MANY NONE [facility] Trans[facility] Ep[facility]helial Cells 2018-05-15 12:46:00* Test Item Value Reference Range Interpretation Comments Urine Transitional Epithelial Cells (test code = 8249-5) MANY NONE [facility] Trans[facility] Ep[facility] Cells 2018-05-15 12:46:00* Test Item Value Reference Range Interpretation Comments Urine Transitional Epithelial Cells (test code = 8249-5) MANY NONE H [facility]ieUrine Qgxhn3113-44-15 12:28:00* Test Item Value Reference Range Interpretation Comments Urine Color (test code = 5778-6) YELLOW YELLOW [facility]ieUrine Slfuspq6149-10-98 12:28:00* Test Item Value Reference Range Interpretation Comments Urine Clarity (test code = 20348-4) HAZY CLEAR [facility] Specific Zzqmrkh8126-09-26 12:28:00 * Test Item Value Reference Range Interpretation Comments Urine Specific Sterling (test code = 5811-5) 1.010 1.010-1.02 5 [facility]ieUrine qF5455-85-55 12:28:00* Test Item Value Reference Range Interpretation Comments Urine pH (test code = 61615-2) 8 5-7 H [facility] Leukocyte Onomylzi5033-25-16 12:28:00* Test Item Value Reference Range Interpretation Comments Urine Leukocyte Esterase (test code = 5799-2) NEGATIVE NEGATIVE [facility] Galgzrx6632-96-78 12:28:00* Test Item Value Reference Range Interpretation Comments Urine Nitrite (test code = 06654-9) NEGATIVE NEGATIVE [facility] Tvqesgp8917-48-81 12:28:00* Test Item Value Reference Range Interpretation Comments Urine Protein (test code = 5804-0) 2+ NEGATIVE H [facility] Glucose (UA)2018-05-15 12:28:00* Test Item Value Reference Range Interpretation Comments Urine Glucose (UA) (test code = 2349-9) NEGATIVE NEGATIVE [facility]ieUrine Xwpaoae4956-47-93 12:28:00* Test Item Value Reference Range Interpretation Comments Urine Ketones (test code = 16501-3) NEGATIVE NEGATIVE [facility] Tqmjohttrvns8328-29-25 12:28:00* Test Item Value Reference Range Interpretation Comments Urine Urobilinogen (test code = 31103-1) 0.2 0.2-1 [facility]ieUrine Znsdlnqax7415-22-46 12:28:00* Test Item Value Reference Range Interpretation Comments Urine Bilirubin (test code = 1978-6) NEGATIVE NEGATIVE [facility]ieUrine Xwrxu9139-34-09 12:28:00* Test Item Value Reference Range Interpretation Comments Urine Blood (test code = 90075-7) 1+ NEGATIVE H [facility]achieB-Type Natriuretic Vqgeqzq0343-25-31 11:23:00* Test Item Value Reference Range Interpretation Comments B-Type Natriuretic Peptide (test code = 08570-0) 321.1 0-100 H [facility]ieB-Type Natriuretic Dxpmeal2888-34-61 11:23:00* Test Item Value Reference Range Interpretation Comments B-Type Natriuretic Peptide (test code = 89463-2) 321.1 0-100 H [facility]ieB-Type Natriuretic Opqegeh1669-65-15 11:23:00* Test Item Value Reference Range Interpretation Comments B-Type Natriuretic Peptide (test code = 21420-7) 321.1 0-100 H [facility]ieB-Type Natriuretic Nisoulk2498-14-99 11:23:00* Test Item Value Reference Range Interpretation Comments B-Type Natriuretic Peptide (test code = 27275-6) 321.1 0-100 H [facility]achieCT BRAIN YG4604-86-92 10:50:00 [facility] [address] [place] [address] Patient Name: MIGUEL FONTENOT MR #: [id number] : 1935 Age/Sex: 82/F Req #: [id number] Adm Physician: Ordered by: CHANDANA DOMINGO FORKLIFT PICKER Report #: [id number] Location: Room/Bed: Procedure: [id number] CT/CT BRAIN WO Exam Date: 05/15/18 Exam [...] COPY TO: CHANDANA DOMINGO NP Creatine Kinase LO0481-61-14 10:49:00* Test Item Value Reference Range Interpretation Comments Creatine Kinase MB (test code = 13259-0) 0.80 0-5.0 [facility] X6374-08-14 10:49:00* Test Item Value Reference Range Interpretation Comments Troponin I (test code = VOW2402) 0.013 0-0.300 [facility] SINGLE (PORTABLE)2018-05-15 10:46:00 [facility] [address] [address] Patient Name: MIGUEL FONTENOT MR #: [id number] : 1935 Age/Sex: 82/F Req #: [id number] Adm Physician: CHRISTEL HATHAWAY MD Ordered by: CHANDANA DOMINGO FORKLIFT PICKER Report #: [id number] Location: MED/SURG3 Room/Bed: [facility] Procedure: DX/CHEST SINGLE (PORTABLE) Exam Date: 05/15/18 [...] on 05/15/18 1046 COPY TO: CHANDANA DOMINGO FORKLIFT PICKER Magnesium Oycyr2882-34-02 10:43:00* Test Item Value Reference Range Interpretation Comments Magnesium Level (test code = 06730-3) 1.5 1.3-2.1 [facility]ieTotal Uhxlsutmd9485-44-73 10:43:00* Test Item Value Reference Range Interpretation Comments Total Bilirubin (test code = 1975-2) 0.5 0.2-1.2 [facility]achieAspartate Amino Transf (AST/SGOT) 2018-05-15 10:43:00* Test Item Value Reference Range Interpretation Comments Aspartate Amino Transf (AST/SGOT) (test code = Aspartate Amino Transf (AST/SGOT)) 19 5-34 [facility]ieAlanine Aminotransferase (ALT/SGPT) 2018-05-15 10:43:00* Test Item Value Reference Range Interpretation Comments Alanine Aminotransferase (ALT/SGPT) (test code = 1742-6) 17 0-55 [facility]ieTotal Zfhsjei5191-31-07 10:43:00* Test Item Value Reference Range Interpretation Comments Total Protein (test code = 2885-2) 6.2 6.5-8.1 L [facility]achieAlbumin2018-09-17 10:43:00* Test Item Value Reference Range Interpretation Comments Albumin (test code = 1751-7) 2.5 3.5-5.0 L [facility]ieGlobulin2018-09-17 10:43:00* Test Item Value Reference Range Interpretation Comments Globulin (test code = 65617-8) 3.7 2.3-3.5 H [facility]achieAlbumin/Globulin Zgcbx3570-23-96 10:43:00 * Test Item Value Reference Range Interpretation Comments Albumin/Globulin Ratio (test code = 1759-0) 0.7 0.8-2.0 L [facility]ieAlkaline Vwdsmpbmljh6261-17-57 10:43:00* Test Item Value Reference Range Interpretation Comments Alkaline Phosphatase (test code = 6768-6) 79 40-150 [facility]ieCreatine Knvnqy2023-05-45 10:43:00* Test Item Value Reference Range Interpretation Comments Creatine Kinase (test code = 2157-6) 63 29-168 [facility]achieProthrombin Yiee8821-66-96 10:34:00* Test Item Value Reference Range Interpretation Comments Prothrombin Time (test code = 5902-2) 14.5 11.9-14.5 [facility]ieProthromb Time International Ratio 2018-05-15 10:34:00* Test Item Value Reference Range Interpretation Comments Prothromb Time International Ratio (test code = 6301-6) 1.22 Oral Anticoagulant Therapy INR Values:1. Low Intensity Therapy 1.5 - 2.02 . Moderate Intensity Therapy 2.0 - 3.03. High Intensity Therapy(1) 2.5 - 3. 54. High Intensity Therapy(2) 3.0 - 4.05. Panic Value INR > 5.0 [facility] [facility]ieActivated Partial Thromboplast Time 2018-05-15 10:34:00* Test Item Value Reference Range Interpretation Comments Activated Partial Thromboplast Time (test code = 51625-2) 29.0 23.8-35.5 [facility]ieDifferential Total Cells Counted 2018-03-30 08:42:00* Test Item Value Reference Range Interpretation Comments Differential Total Cells Counted (test code = Differgary tial Total Cells Counted) 100 [facility]ieNeutrophils % (Manual)2018-03-30 08:42:00 * Test Item Value Reference Range Interpretation Comments Neutrophils % (Manual) (test code = 06097-2) 81 40-74 H [facility]ieLymphocytes % (Manual)2018-03-30 08:42:00 * Test Item Value Reference Range Interpretation Comments Lymphocytes % (Manual) (test code = 737-7) 7 19-48 L [facility]ieMonocytes % (Manual)2018-03-30 08:42:00* Test Item Value Reference Range Interpretation Comments Monocytes % (Manual) (test code = 744-3) 10 3.4-9.0 H [facility]Eosinophils % (Manual)2018-03-30 08:42:00 * Test Item Value Reference Range Interpretation Comments Eosinophils % (Manual) (test code = 714-6) 2 0-7 [facility]iePlatelet Dwwefuaq5912-09-84 08:42:00* Test Item Value Reference Range Interpretation Comments Platelet Estimate (test code = 21331-9) ADEQUATE [facility]iePlatelet Morphology Cpxqxkf1384-75-43 08:42:00* Test Item Value Reference Range Interpretation Comments Platelet Morphology Comment (test code = 50601-9) NORMAL [facility]ieHypochromasia2018-08-02 08:42:00* Test Item Value Reference Range Interpretation Comments Hypochromasia (test code = 728-6) SLIGHT [facility]ieAnisocytosis2018-08-02 08:42:00* Test Item Value Reference Range Interpretation Comments Anisocytosis (test code = 702-1) SLIGHT [facility]ieRed Cell Morphology Yyrfqib2878-11-46 08:42:00* Test Item Value Reference Range Interpretation Comments Red Cell Morphology Comment (test code = 6742-1) NORMAL [facility]ieDifferential Total Cells Counted 2018-03-30 08:42:00* Test Item Value Reference Range Interpretation Comments Differential Total Cells Counted (test code = Luis Alfredo tial Total Cells Counted) 100 [facility]ieNeutrophils % (Manual)2018-03-30 08:42:00 * Test Item Value Reference Range Interpretation Comments Neutrophils % (Manual) (test code = 81351-7) 81 40-74 H [facility]ieLymphocytes % (Manual)2018-03-30 08:42:00 * Test Item Value Reference Range Interpretation Comments Lymphocytes % (Manual) (test code = 737-7) 7 19-48 L [facility]ieMonocytes % (Manual)2018-03-30 08:42:00* Test Item Value Reference Range Interpretation Comments Monocytes % (Manual) (test code = 744-3) 10 3.4-9.0 H [facility]ieEosinophils % (Manual)2018-03-30 08:42:00 * Test Item Value Reference Range Interpretation Comments Eosinophils % (Manual) (test code = 714-6) 2 0-7 [facility]iePlatelet Ocegqscw7400-45-21 08:42:00* Test Item Value Reference Range Interpretation Comments Platelet Estimate (test code = 58338-0) ADEQUATE [facility]iePlatelet Morphology Wkemdur3559-64-89 08:42:00* Test Item Value Reference Range Interpretation Comments Platelet Morphology Comment (test code = 06037-6) NORMAL [facility]ieHypochromasia2018-08-02 08:42:00* Test Item Value Reference Range Interpretation Comments Hypochromasia (test code = 728-6) SLIGHT [facility]ieAnisocytosis2018-08-02 08:42:00* Test Item Value Reference Range Interpretation Comments Anisocytosis (test code = 702-1) SLIGHT [facility]ieRed Cell Morphology Ynwmued8423-22-09 08:42:00* Test Item Value Reference Range Interpretation Comments Red Cell Morphology Comment (test code = 6742-1) NORMAL [facility]ieDifferential Total Cells Counted 2018-03-30 08:42:00* Test Item Value Reference Range Interpretation Comments Differential Total Cells Counted (test code = Luis Alfredo florinda Total Cells Counted) 100 [facility]ieNeutrophils % (Manual)2018-03-30 08:42:00 * Test Item Value Reference Range Interpretation Comments Neutrophils % (Manual) (test code = 25846-7) 81 40-74 H [facility]ieLymphocytes % (Manual)2018-03-30 08:42:00 * Test Item Value Reference Range Interpretation Comments Lymphocytes % (Manual) (test code = 737-7) 7 19-48 L [facility]ieMonocytes % (Manual)2018-03-30 08:42:00* Test Item Value Reference Range Interpretation Comments Monocytes % (Manual) (test code = 744-3) 10 3.4-9.0 H [facility]Eosinophils % (Manual)2018-03-30 08:42:00 * Test Item Value Reference Range Interpretation Comments Eosinophils % (Manual) (test code = 714-6) 2 0-7 [facility]iePlatelet Nxccmxbp1417-88-78 08:42:00* Test Item Value Reference Range Interpretation Comments Platelet Estimate (test code = 99164-1) ADEQUATE [facility]iePlatelet Morphology Cahefuu0433-09-66 08:42:00* Test Item Value Reference Range Interpretation Comments Platelet Morphology Comment (test code = 71997-7) NORMAL [facility]ieHypochromasia2018-08-02 08:42:00* Test Item Value Reference Range Interpretation Comments Hypochromasia (test code = 728-6) SLIGHT [facility]ieAnisocytosis2018-08-02 08:42:00* Test Item Value Reference Range Interpretation Comments Anisocytosis (test code = 702-1) SLIGHT [facility]ieRed Cell Morphology Xvjgafj9466-76-98 08:42:00* Test Item Value Reference Range Interpretation Comments Red Cell Morphology Comment (test code = 6742-1) NORMAL [facility]ieDifferential Total Cells Counted 2018-03-30 08:42:00* Test Item Value Reference Range Interpretation Comments Differential Total Cells Counted (test code = Luis Alfredo tial Total Cells Counted) 100 [facility]ieNeutrophils % (Manual)2018-03-30 08:42:00 * Test Item Value Reference Range Interpretation Comments Neutrophils % (Manual) (test code = 50374-0) 81 40-74 H [facility]ieLymphocytes % (Manual)2018-03-30 08:42:00 * Test Item Value Reference Range Interpretation Comments Lymphocytes % (Manual) (test code = 737-7) 7 19-48 L [facility]ieMonocytes % (Manual)2018-03-30 08:42:00* Test Item Value Reference Range Interpretation Comments Monocytes % (Manual) (test code = 744-3) 10 3.4-9.0 H [facility]ieEosinophils % (Manual)2018-03-30 08:42:00 * Test Item Value Reference Range Interpretation Comments Eosinophils % (Manual) (test code = 714-6) 2 0-7 [facility]iePlatelet Gayyyljh5161-05-30 08:42:00* Test Item Value Reference Range Interpretation Comments Platelet Estimate (test code = 06821-0) ADEQUATE [facility]iePlatelet Morphology Rsdsxez5375-77-58 08:42:00* Test Item Value Reference Range Interpretation Comments Platelet Morphology Comment (test code = 41380-9) NORMAL [facility]ieHypochromasia2018-08-02 08:42:00* Test Item Value Reference Range Interpretation Comments Hypochromasia (test code = 728-6) SLIGHT [facility]ieAnisocytosis2018-08-02 08:42:00* Test Item Value Reference Range Interpretation Comments Anisocytosis (test code = 702-1) SLIGHT [facility]ieRed Cell Morphology Svkaeju0637-09-91 08:42:00* Test Item Value Reference Range Interpretation Comments Red Cell Morphology Comment (test code = 6742-1) NORMAL [facility]ieDifferential Total Cells Counted 2018-03-30 08:42:00* Test Item Value Reference Range Interpretation Comments Differential Total Cells Counted (test code = Differen tial Total Cells Counted) 100 [facility]ieNeutrophils % (Manual)2018-03-30 08:42:00 * Test Item Value Reference Range Interpretation Comments Neutrophils % (Manual) (test code = 01681-5) 81 40-74 H [facility]ieLymphocytes % (Manual)2018-03-30 08:42:00 * Test Item Value Reference Range Interpretation Comments Lymphocytes % (Manual) (test code = 737-7) 7 19-48 L [facility]ieMonocytes % (Manual)2018-03-30 08:42:00* Test Item Value Reference Range Interpretation Comments Monocytes % (Manual) (test code = 744-3) 10 3.4-9.0 H [facility]Eosinophils % (Manual)2018-03-30 08:42:00 * Test Item Value Reference Range Interpretation Comments Eosinophils % (Manual) (test code = 714-6) 2 0-7 [facility]iePlatelet Lpmkxasv6885-63-42 08:42:00* Test Item Value Reference Range Interpretation Comments Platelet Estimate (test code = 15200-5) ADEQUATE [facility]iePlatelet Morphology Vxfaimn7523-23-49 08:42:00* Test Item Value Reference Range Interpretation Comments Platelet Morphology Comment (test code = 88032-3) NORMAL [facility]ieHypochromasia2018-08-02 08:42:00* Test Item Value Reference Range Interpretation Comments Hypochromasia (test code = 728-6) SLIGHT [facility]ieAnisocytosis2018-08-02 08:42:00* Test Item Value Reference Range Interpretation Comments Anisocytosis (test code = 702-1) SLIGHT [facility]ieRed Cell Morphology Idmkdbf0775-12-00 08:42:00* Test Item Value Reference Range Interpretation Comments Red Cell Morphology Comment (test code = 6742-1) NORMAL [facility]ieThyroid Stimulating Hormone (TSH) 2018-03-30 06:23:00* Test Item Value Reference Range Interpretation Comments Thyroid Stimulating Hormone (TSH) (test code = 95501-2) 1.496 0.350-4.940 [facility]ieThyroid Stimulating Hormone (TSH) 2018-03-30 06:23:00* Test Item Value Reference Range Interpretation Comments Thyroid Stimulating Hormone (TSH) (test code = 49633-2) 1.496 0.350-4.940 [facility]ieThyroid Stimulating Hormone (TSH) 2018-03-30 06:23:00* Test Item Value Reference Range Interpretation Comments Thyroid Stimulating Hormone (TSH) (test code = 57196-0) 1.496 0.350-4.940 [facility]ieThyroid Stimulating Hormone (TSH) 2018-03-30 06:23:00* Test Item Value Reference Range Interpretation Comments Thyroid Stimulating Hormone (TSH) (test code = 54301-0) 1.496 0.350-4.940 [facility]ieThyroid Stimulating Hormone (TSH) 2018-03-30 06:23:00* Test Item Value Reference Range Interpretation Comments Thyroid Stimulating Hormone (TSH) (test code = 70187-3) 1.496 0.350-4.940 [facility]ieTriglycerides Vvkkn6457-48-76 06:00:00* Test Item Value Reference Range Interpretation Comments Triglycerides Level (test code = 2571-8) 152 0-149 H [facility]ieCholesterol Smsca7498-24-48 06:00:00* Test Item Value Reference Range Interpretation Comments Cholesterol Level (test code = 2093-3) 157 0-199 Less than 200 mg/dL Low Tlvy147 - 239 mg/dL Borderline Vkpz573 m g/dl and greater High Risk [facility] Ohowzruibbv0330-31-97 06:00:00* Test Item Value Reference Range Interpretation Comments LDL Cholesterol (test code = 2089-1) 83 60-130 [facility] Zagotiwotvr9270-03-36 06:00:00* Test Item Value Reference Range Interpretation Comments HDL Cholesterol (test code = 2085-9) 44 40-60 [facility]ieCholesterol/HDL Uhdns3053-87-44 06:00:00 * Test Item Value Reference Range Interpretation Comments Cholesterol/HDL Ratio (test code = 9830-1) 3.6 3.0-3.6 [facility]ieTriglycerides Smufg2485-30-87 06:00:00* Test Item Value Reference Range Interpretation Comments Triglycerides Level (test code = 2571-8) 152 0-149 H [facility]ieCholesterol Czefn9892-16-02 06:00:00* Test Item Value Reference Range Interpretation Comments Cholesterol Level (test code = 2093-3) 157 0-199 Less than 200 mg/dL Low Cqlm271 - 239 mg/dL Borderline Ncaq556 m g/dl and greater High Risk [facility]ieLDL Wflkyzyjvus6335-41-53 06:00:00* Test Item Value Reference Range Interpretation Comments LDL Cholesterol (test code = 2089-1) 83 60-130 [facility] Tqsyvwqjexn4785-92-81 06:00:00* Test Item Value Reference Range Interpretation Comments HDL Cholesterol (test code = 2085-9) 44 40-60 [facility]ieCholesterol/HDL Sizys3920-28-25 06:00:00 * Test Item Value Reference Range Interpretation Comments Cholesterol/HDL Ratio (test code = 9830-1) 3.6 3.0-3.6 [facility]ieTriglycerides Daymv8326-43-17 06:00:00* Test Item Value Reference Range Interpretation Comments Triglycerides Level (test code = 2571-8) 152 0-149 H [facility]ieCholesterol Mbppz7268-50-35 06:00:00* Test Item Value Reference Range Interpretation Comments Cholesterol Level (test code = 2093-3) 157 0-199 Less than 200 mg/dL Low Hqpx362 - 239 mg/dL Borderline Eooc277 m g/dl and greater High Risk [facility] [place]ieLDL Coelgwhvuzl0566-43-83 06:00:00* Test Item Value Reference Range Interpretation Comments LDL Cholesterol (test code = 2089-1) 83 60-130 [facility]ieHDL Ojagzmbzjwo6404-32-72 06:00:00* Test Item Value Reference Range Interpretation Comments HDL Cholesterol (test code = 2085-9) 44 40-60 [facility]ieCholesterol/HDL Ifxmb6236-48-17 06:00:00 * Test Item Value Reference Range Interpretation Comments Cholesterol/HDL Ratio (test code = 9830-1) 3.6 3.0-3.6 [facility]ieTriglycerides Khtgc4965-59-08 06:00:00* Test Item Value Reference Range Interpretation Comments Triglycerides Level (test code = 2571-8) 152 0-149 H [facility]ieCholesterol Tzlkw3729-57-96 06:00:00* Test Item Value Reference Range Interpretation Comments Cholesterol Level (test code = 2093-3) 157 0-199 Less than 200 mg/dL Low Lnqu230 - 239 mg/dL Borderline Zizd212 m g/dl and greater High Risk [facility]ieLDL Kebqnqxnyik2241-94-63 06:00:00* Test Item Value Reference Range Interpretation Comments LDL Cholesterol (test code = 2089-1) 83 60-130 [facility]ieHDL Mxznqdrzusq0015-90-76 06:00:00* Test Item Value Reference Range Interpretation Comments HDL Cholesterol (test code = 2085-9) 44 40-60 [facility]ieCholesterol/HDL Pxocp5986-92-13 06:00:00 * Test Item Value Reference Range Interpretation Comments Cholesterol/HDL Ratio (test code = 9830-1) 3.6 3.0-3.6 [facility]ieTriglycerides Fdhuk8926-59-61 06:00:00* Test Item Value Reference Range Interpretation Comments Triglycerides Level (test code = 2571-8) 152 0-149 H [facility]ieCholesterol Wzbvz6099-67-36 06:00:00* Test Item Value Reference Range Interpretation Comments Cholesterol Level (test code = 2093-3) 157 0-199 Less than 200 mg/dL Low Kplh475 - 239 mg/dL Borderline Wwpg384 m g/dl and greater High Risk [facility] [place]ieLDL Lnaeifutwpr8924-57-64 06:00:00* Test Item Value Reference Range Interpretation Comments LDL Cholesterol (test code = 2089-1) 83 60-130 [facility] Qyvtujuqmqm9599-23-76 06:00:00* Test Item Value Reference Range Interpretation Comments HDL Cholesterol (test code = 2085-9) 44 40-60 [facility]ieCholesterol/HDL Hxedj0829-11-64 06:00:00 * Test Item Value Reference Range Interpretation Comments Cholesterol/HDL Ratio (test code = 9830-1) 3.6 3.0-3.6 [facility]ieWhite Blood Wptrr5439-86-78 05:52:00* Test Item Value Reference Range Interpretation Comments White Blood Count (test code = 6690-2) 6.53 4.8-10.8 [facility]ieRed Blood Wdfyq6404-69-00 05:52:00* Test Item Value Reference Range Interpretation Comments Red Blood Count (test code = 789-8) 3.84 3.6-5.1 [facility]ieHemoglobin2018-08-02 05:52:00* Test Item Value Reference Range Interpretation Comments Hemoglobin (test code = 56222-2) 11.6 12.0-16.0 L [facility]ieHematocrit2018-08-02 05:52:00* Test Item Value Reference Range Interpretation Comments Hematocrit (test code = 4544-3) 34.8 34.2-44.1 [facility]ieMean Corpuscular Dagzmw7385-94-45 05:52:00* Test Item Value Reference Range Interpretation Comments Mean Corpuscular Volume (test code = 787-2) 90.6 81-99 [facility]ieMean Corpuscular Dxlgsnhdiv7952-91-73 05:52:00* Test Item Value Reference Range Interpretation Comments Mean Corpuscular Hemoglobin (test code = 785-6) 30.2 28-32 [facility]ieMean Corpuscular Hemoglobin Concent 2018-03-30 05:52:00* Test Item Value Reference Range Interpretation Comments Mean Corpuscular Hemoglobin Concent (test code = 786-4) 33.3 31-35 [facility]ieRed Cell Distribution Celqe0711-87-55 05:52:00* Test Item Value Reference Range Interpretation Comments Red Cell Distribution Width (test code = 28407-5) 13.3 11.7 -14.4 [facility]iePlatelet Pxpxz4075-34-30 05:52:00* Test Item Value Reference Range Interpretation Comments Platelet Count (test code = 777-3) 92 140-360 L [facility]ieNeutrophils (%) (Auto)2018-03-30 05:52:00 * Test Item Value Reference Range Interpretation Comments Neutrophils (%) (Auto) (test code = 23359-2) 76.4 38.7-80.0 [facility]ieLymphocytes (%) (Auto)2018-03-30 05:52:00 * Test Item Value Reference Range Interpretation Comments Lymphocytes (%) (Auto) (test code = 736-9) 8.0 18.0-39.1 L [facility]ieMonocytes (%) (Auto)2018-03-30 05:52:00* Test Item Value Reference Range Interpretation Comments Monocytes (%) (Auto) (test code = 5905-5) 10.7 4.4-11.3 [facility]ieEosinophils (%) (Auto)2018-03-30 05:52:00 * Test Item Value Reference Range Interpretation Comments Eosinophils (%) (Auto) (test code = 713-8) 3.8 0.0-6.0 [facility]ieBasophils (%) (Auto)2018-03-30 05:52:00* Test Item Value Reference Range Interpretation Comments Basophils (%) (Auto) (test code = 706-2) 0.3 0.0-1.0 [facility]ieIM GRANULOCYTES %2018-03-30 05:52:00* Test Item Value Reference Range Interpretation Comments IM GRANULOCYTES % (test code = IM GRANULOCYTES %) 0.8 0.0- 1.0 [facility]ieNeutrophils # (Auto)2018-03-30 05:52:00* Test Item Value Reference Range Interpretation Comments Neutrophils # (Auto) (test code = 751-8) 5.0 2.1-6.9 [facility]ieLymphocytes # (Auto)2018-03-30 05:52:00* Test Item Value Reference Range Interpretation Comments Lymphocytes # (Auto) (test code = 33612-4) 0.5 1.0-3.2 L [facility]ieMonocytes # (Auto)2018-03-30 05:52:00* Test Item Value Reference Range Interpretation Comments Monocytes # (Auto) (test code = 742-7) 0.7 0.2-0.8 [facility]ieEosinophils # (Auto)2018-03-30 05:52:00* Test Item Value Reference Range Interpretation Comments Eosinophils # (Auto) (test code = 711-2) 0.3 0.0-0.4 [facility]ieBasophils # (Auto)2018-03-30 05:52:00* Test Item Value Reference Range Interpretation Comments Basophils # (Auto) (test code = 704-7) 0.0 0.0-0.1 [facility]ieAbsolute Immature Granulocyte (auto 2018-03-30 05:52:00* Test Item Value Reference Range Interpretation Comments Absolute Immature Granulocyte (auto (karo t code = Absolute Immature Granulocyte (auto) 0.05 0-0.1 [facility]ieTroponin H7812-06-02 08:35:00* Test Item Value Reference Range Interpretation Comments Troponin I (test code = QKU1378) 0.021 0-0.300 [facility]achieCreatine Kinase TA0324-38-02 08:30:00* Test Item Value Reference Range Interpretation Comments Creatine Kinase MB (test code = 46362-8) 1.00 0-5.0 [facility]ieCreatine Bihzho4276-59-68 08:23:00* Test Item Value Reference Range Interpretation Comments Creatine Kinase (test code = 2157-6) 64 29-168 [facility] Centerodium Dasyw0287-65-60 08:20:00* Test Item Value Reference Range Interpretation Comments Sodium Level (test code = 2951-2) 142 136-145 [facility]iePotassium Brmov7839-64-95 08:20:00* Test Item Value Reference Range Interpretation Comments Potassium Level (test code = 2823-3) 4.0 3.5-5.1 [facility]ieChloride Xmdrh0715-16-32 08:20:00* Test Item Value Reference Range Interpretation Comments Chloride Level (test code = 2075-0) 110 98-107 H [facility]achieCarbon Dioxide Rwdrf9639-77-05 08:20:00* Test Item Value Reference Range Interpretation Comments Carbon Dioxide Level (test code = 2028-9) 22 22-29 [facility] W[facility]achieAnion Kob6153-38-25 08:20:00* Test Item Value Reference Range Interpretation Comments Anion Gap (test code = 66645-1) 14.0 8-16 [facility]ieBlood Urea Hsmntomo0160-99-23 08:20:00* Test Item Value Reference Range Interpretation Comments Blood Urea Nitrogen (test code = 3094-0) 50 7-26 H [facility]ieCreatinine2018-08-01 08:20:00* Test Item Value Reference Range Interpretation Comments Creatinine (test code = 2160-0) 6.02 0.57-1.11 H [facility]ieBUN/Creatinine Hlolm7816-99-51 08:20:00* Test Item Value Reference Range Interpretation Comments BUN/Creatinine Ratio (test code = 3097-3) 8 6-25 [facility] W[facility]ahachieEstimat Glomerular Filtration Rate 2018-03-29 08:20:00* Test Item Value Reference Range Interpretation Comments Estimat Glomerular Filtration Rate (test code = 53993-4) 7 >60 L Ranges were taken from the National Kidney Disease Education Program and the [facility] Kidney Foundation literature.Reference ranges:60 or greater: Hxnuju53-45 ( for 3 consecutive months): Chronic kidney disease 15 or less: Kidney failureBaylor Scott & [facility] – WaxahachieGlucose Vooqn7603-78-15 08:20:00* Test Item Value Reference Range Interpretation Comments Glucose Level (test code = AAD0341) 108 74-118 [facility] W[facility]achieCalcium Nyalp5393-58-17 08:20:00* Test Item Value Reference Range Interpretation Comments Calcium Level (test code = 66485-0) 10.0 8.4-10.2 [facility] W[facility]achieMagnesium Bcyeh6465-79-68 15:53:00* Test Item Value Reference Range Interpretation Comments Magnesium Level (test code = 06894-2) 1.8 1.3-2.1 [facility] Natriuretic Wefafle4620-54-17 15:04:00* Test Item Value Reference Range Interpretation Comments B-Type Natriuretic Peptide (test code = 66138-2) 68.0 0-100 [facility]ieLactic Acid Elkwo7077-18-50 14:57:00* Test Item Value Reference Range Interpretation Comments Lactic Acid Level (test code = Lactic Acid Level) 12.2 4.5- 19.8 [facility]ieTotal Khrkxtytc9895-43-99 14:57:00* Test Item Value Reference Range Interpretation Comments Total Bilirubin (test code = 1975-2) 0.5 0.2-1.2 [facility]ieAspartate Amino Transf (AST/SGOT) 2017-07-03 14:57:00* Test Item Value Reference Range Interpretation Comments Aspartate Amino Transf (AST/SGOT) (test code = Aspartate Amino Transf (AST/SGOT)) 21 5-34 [facility]ieAlanine Aminotransferase (ALT/SGPT) 2017-07-03 14:57:00* Test Item Value Reference Range Interpretation Comments Alanine Aminotransferase (ALT/SGPT) (test code = 1742-6) 19 0-55 [facility]ieTotal Mkxages1210-14-16 14:57:00* Test Item Value Reference Range Interpretation Comments Total Protein (test code = 2885-2) 7.4 6.5-8.1 [facility]ieAlbumin2017-11-05 14:57:00* Test Item Value Reference Range Interpretation Comments Albumin (test code = 1751-7) 3.1 3.5-5.0 L [facility]ieGlobulin2017-11-05 14:57:00* Test Item Value Reference Range Interpretation Comments Globulin (test code = 31208-8) 4.3 2.3-3.5 H [facility]ieAlbumin/Globulin Nvaij1752-59-71 14:57:00 * Test Item Value Reference Range Interpretation Comments Albumin/Globulin Ratio (test code = 1759-0) 0.7 0.8-2.0 L [facility]ieAlkaline Wgtmnrvrvzo5324-22-22 14:57:00* Test Item Value Reference Range Interpretation Comments Alkaline Phosphatase (test code = 6768-6) 91 40-150 [facility]ieLipase2017-11-05 14:57:00* Test Item Value Reference Range Interpretation Comments Lipase (test code = 3040-3) 35 8-78 [facility]ieProthrombin Yrbx4535-42-87 14:47:00* Test Item Value Reference Range Interpretation Comments Prothrombin Time (test code = 5902-2) 13.8 11.9-14.5 [facility]ieProthromb Time International Ratio 2017-07-03 14:47:00* Test Item Value Reference Range Interpretation Comments Prothromb Time International Ratio (test code = 6301-6) 1.01 Oral Anticoagulant Therapy INR Values:1. Low Intensity Therapy 1.5 - 2.02 . Moderate Intensity Therapy 2.0 - 3.03. High Intensity Therapy(1) 2.5 - 3. 54. High Intensity Therapy(2) 3.0 - 4.05. Panic Value INR > 5.0 [facility]ieActivated Partial Thromboplast Time 2017-07-03 14:47:00* Test Item Value Reference Range Interpretation Comments Activated Partial Thromboplast Time (test code = 99129-1) 30.6 23.8-35.5 [facility]ieUrine AFW2790-89-65 14:44:00* Test Item Value Reference Range Interpretation Comments Urine WBC (test code = 5821-4) 11-20 0-5 H [facility]ieUrine RNN7108-10-47 14:44:00* Test Item Value Reference Range Interpretation Comments Urine RBC (test code = 10379-5) 11-20 0-5 H [facility]ieUrine Ethgzxhe2457-61-38 14:44:00* Test Item Value Reference Range Interpretation Comments Urine Bacteria (test code = 98089-5) MODERATE NONE H [facility]ieUrine Epithelial Fwwxv2771-35-64 14:44:00 * Test Item Value Reference Range Interpretation Comments Urine Epithelial Cells (test code = 88130-4) MODERATE NONE [facility]ieU[facility] Vdfxb0877-21-98 14:29:00* Test Item Value Reference Range Interpretation Comments Urine Color (test code = 5778-6) YELLOW YELLOW [facility]ieUrine Avxqdpp1828-71-08 14:29:00* Test Item Value Reference Range Interpretation Comments Urine Clarity (test code = 39447-5) SL CLOUDY CLEAR [facility]ieUrine Specific Hdsgjfj8913-87-31 14:29:00 * Test Item Value Reference Range Interpretation Comments Urine Specific [place] (test code = 5811-5) 1.020 1.010-1.02 5 [facility]ieUrine uO9834-87-51 14:29:00* Test Item Value Reference Range Interpretation Comments Urine pH (test code = 95221-7) 5 5-7 [facility]ieU[facility] Leukocyte Gdoohmsw5022-48-96 14:29:00* Test Item Value Reference Range Interpretation Comments Urine Leukocyte Esterase (test code = 5799-2) 1+ NEGATIVE H [facility]ieUrine Ehgsnlc1574-74-61 14:29:00* Test Item Value Reference Range Interpretation Comments Urine Nitrite (test code = 74154-7) NEGATIVE NEGATIVE [facility]ieUrine Mvfqrkv6950-59-70 14:29:00* Test Item Value Reference Range Interpretation Comments Urine Protein (test code = 5804-0) 3+ NEGATIVE H [facility] Glucose (UA)2017-07-03 14:29:00* Test Item Value Reference Range Interpretation Comments Urine Glucose (UA) (test code = 2349-9) 1+ NEGATIVE H [facility] Qsqjtli2550-80-36 14:29:00* Test Item Value Reference Range Interpretation Comments Urine Ketones (test code = 89911-6) NEGATIVE NEGATIVE [facility] Kwdeksydrqov0260-22-43 14:29:00* Test Item Value Reference Range Interpretation Comments Urine Urobilinogen (test code = 32484-0) 0.2 0.2-1 [facility] Sykvumumc2954-08-28 14:29:00* Test Item Value Reference Range Interpretation Comments Urine Bilirubin (test code = 1978-6) 1+ NEGATIVE H [facility] Lthln2418-78-81 14:29:00* Test Item Value Reference Range Interpretation Comments Urine Blood (test code = 17728-8) 2+ NEGATIVE H [facility]ieBedside Dyheqeq2777-67-33 07:22:00* Test Item Value Reference Range Interpretation Comments Bedside Glucose (test code = 08431-5) 96 70-120 Meter ID: [id number] [facility] Iojxh3999-01-63 17:08:00* Test Item Value Reference Range Interpretation Comments Urine Mucus (test code = 8247-9) FEW RARE H [facility] HospitalELECTROLYTES2017-03-09 12:03:004.3MH [facility] BHPKTFZ9297-27-52 16:13:00Negative (10/28/16 10:13 AM)[facility] HospitalRzydbbdqfQTFXBNEISQXZ4646-74-81 16:13:0012.4[facility] HospitalKnxmmfjixLJGJBWOENTCK3805-30-58 16:13:0012[facility] HospitalMpbdtxhduELXGQDABFOST9927-13-74 16:13:0036 [facility]ELECTROLYTES 2016-10-28 16:13:0095[facility] HospitalThijqhzifZSCTEKMRZSSW0848-03-63 16:13:003.50 [facility] UVGBQBCERDZV5849-84-31 16:13:009.[address] [place], [place] [address]EywfjumlsYQYYZYQOYFCA2942-76-12 16:13:0021 [facility] HospitalUsisgsqswBPKNBXWKCZLV9675-87-39 16:13:004.4[facility] HospitalErxygukfjFQPBSUXCUZWB0413-71-69 16:13:16211SYB[facility]pate HospitalIxuqnqaawRLFNTURGVMYD4899-78-74 16:13:09998PB SoutheastHEMATOLOGY 2016-10-28 16:13:0021.2M CahbjjszhUINGFNMNDT2158-43-29 16:13:001.5[facility] MOKGGXJIUE8895-00-83 16:13:004.2MLeon[facility] HospitalJilxmvtsrNHWADTSSEC4943-42-13 16:13:003.9[facility] HospitalWdzskgvxoCSTHAJZPNO4750-66-77 16:13:007.5 RrznfsfxfCWLZBJJMFB8305-41-64 16:13:000.2M JvutqatnyWXUIGSIGRS4763-21-69 16:13:001.4 [facility] 2016-10-28 16:13:000.[address]zkQTTAQFULUZ4148-07-47 16:13:000.[address] [place] [address] KURQPSTWCY1744-90-65 16:13:0065.9 WjuwwpbgoNTWZEXSCCS7387-25-50 16:13:001.04 SgkxgzftiMEFCSXJEWL4748-93-04 16:13:00* Test Item Value Reference Range Interpretation Comments PT (test code = PT) 13.8 s 12.0-14.7 XiibdtbreICNJLCFPGE2297-89-81 16:13:00* Test Item Value Reference Range Interpretation Comments PTT (test code = PTT) 30.0 s 22.9-35.8 WlqsdjmpdSEFYVTKXKD7590-41-31 16:13:008.3M CugecaojgCAZXANICVV1692-31-27 16:13:0034.0 ArcjjetmnNCUSRAWLBJ6572-55-92 16:13:0013.5 [facility] 2016-10-28 16:13:003.45 QbtfpxdduUJDVXCVLWX4036-17-06 16:13:0030.5 [facility] QXEQTGWFGK6014-82-68 16:13:0010.4 KmcmwrykeJQCSYYNCYR6567-94-87 16:13:0088.5 IifgrkdplKRYSSVWYSW2773-84-89 16:13:00* Test Item Value Reference Range Interpretation Comments MCH (test code = MCH) 30.1 pg 27.0-31.0 BfnjaxqybJKDGCLWTKT1517-52-57 16:13:13234MW GldvpveguLNVKHSIKIP6316-84-27 16:13:006.4 JplrqghlxZFCJLULJBNGM2831-67-84 12:54:475.0 SoutheastCHEM PANEL 2015-11-17 21:43:0018 [facility]CHEM KLSDE4909-04-03 21:43:007.9 [facility] LBVCG7169-65-59 21:43:0020 [facility]CHEM UMKGM1530-78-32 21:43:00309AZ SoutheastCHEM ETXXE7296-64-91 21:43:004.8 [facility] XLDDA6753-55-41 21:43:12759TM [facility] FLXUR0183-75-92 21:43:002.45 [facility]CHEM PANEL 2015-11-17 21:43:0037 [facility]CHEM XOXRD6925-64-36 21:43:69034DM [facility] MIWTV5185-19-16 21:43:0011.8 VcouwcfmeYSSMEQOEYM6077-29-07 21:43:001.15 IbipnqhplPVUPANVPIC6752-42-08 21:43:00* Test Item Value Reference Range Interpretation Comments PT (test code = PT) 15.0 s 12.0-14.7 HltbnawreCIRERLJBWU8379-42-74 21:43:0089.9 DecaukfzeBWIGQCPFUD0571-24-89 21:43:008.5 CdjxignjoGTHKTPMAGK9676-12-37 21:43:0033.1M [facility] 2015-11-17 21:43:0014.3M GuobthdruRFTEXTTFJZ2212-65-63 21:43:00* Test Item Value Reference Range Interpretation Comments MCH (test code = MCH) 29.7 pg 27.0-31.0 NrxnerzhuSGTXZNAVTT6303-18-29 21:43:03850AM UlfobzqibHNNXORCFXO9598-80-23 21:43:0027.1M EhqhfczqoBYSKPFVVAU4478-95-59 21:43:003.01 [facility] 2015-11-17 21:43:009.0 OzckkcjzwERQYTLTHHH7742-31-20 21:43:005.6M [facility] WBOJOUDFDP1809-58-70 21:43:00* Test Item Value Reference Range Interpretation Comments PTT (test code = PTT) 27.1 s 22.9-35.8 KxptgjmvvBVWKPOABEQ0694-56-71 21:43:000.1M RepgoveufFSSCKKTRKS4536-92-26 21:43:003.9 DsdfebgqkXLHFAYLSMA6369-08-14 21:43:000.1M [facility] 2015-11-17 21:43:001.1M MuhuopchsXPPRHGQPTB1233-04-89 21:43:000.5[facility] KTBUFUXXSP6396-70-06 21:43:0018.8 PeblhymgjGQIHZSCYPV0220-68-28 21:43:001.4 BqgnhkifwDTOBSSWPQH6941-52-19 21:43:008.0 QzbzowmtbPPXWFHVANF0108-25-32 21:43:002.1M IwhsagbedSOQYMHSHYI6730-78-34 21:43:0069.7 [facility]CHE[facility] PANEL 2015-03-24 14:14:80482BY NeqnbgfwqYBTPZKIVMPLJ2099-99-85 14:14:005.4 [facility] UXJTZ4233-67-57 19:57:0050 [facility]CHE[facility] DEIVX2643-93-65 19:57:0013 [facility] QHNGK2137-57-06 19:57:003.3M [facility] RNFGO4371-34-43 19:57:33848JQ [facility] PKQJW7701-96-49 19:57:95271MI SoutheastCHEM PANEL 2015-03-17 19:57:004.7 [facility] XJVBK2590-20-25 19:57:23660GI [facility] OGNXY3366-91-62 19:57:009.2MLeon[facility] HospitalCHEM FJWVK1296-40-57 19:57:0020[facility] HospitalCHEM CFHUX9539-96-25 19:57:0015.7 WbiusmotbJQYBZYHVBP1594-97-31 19:57:00* Test Item Value Reference Range Interpretation Comments PTT (test code = PTT) 34.3 s 22.9-35.8 RpmphbirnSXFUHHXIWX6271-21-11 19:57:001.16 FplzubaewCFGJSNRRVP0185-82-16 19:57:00* Test Item Value Reference Range Interpretation Comments PT (test code = PT) 14.9 s 12.0-14.7 LkkglqbilFLUSDARKJZ6361-80-59 19:57:009.0 QsmplmkfeVZHAQVIORH8261-14-70 19:57:05614MF CfrmlqanmZHWJLMOKFK8412-52-99 19:57:0027.7 [facility] 2015-03-17 19:57:0087.9 WwhmnouikYKKODBLCEY6563-80-71 19:57:003.15[facility] JKGVUFXIXV5389-53-77 19:57:009.3M QwowuzhknTZCFGJPXHY0026-25-09 19:57:0033.7 AqudpcmqzHVSGEVOBHK7055-76-72 19:57:0014.0 KnrmwuxlzJCTGMIEHFM2038-36-57 19:57:00* Test Item Value Reference Range Interpretation Comments MCH (test code = MCH) 29.6 pg 27.0-31.0 AidgwbexoTGEMYMMOKN4290-13-61 19:57:005.4 HqrsmbxbrPVFWBWEQCU5329-74-00 19:57:001.2M TvviidshhGSWLSIPTSU6468-53-32 19:57:003.4 [facility] 2015-03-17 19:57:001.4 XiweyxvabYQWREDKDCD7705-57-60 19:57:003.0[facility] ECFLRURQCI0535-25-34 19:57:000.1MH MdvknvpccGCCUBFTQGK0398-29-01 19:57:000.6MH CvoewzxqgYBZJMLTGAK2773-84-00 19:57:000.2M IheypukiyKSGCJCNYDR7932-33-60 19:57:0010.9 SyyhcrqcmGCDQUSKXGI0167-62-61 19:57:0062.7 [facility] 2015-03-17 19:57:0022.0MH SoutheastCT BRAIN WO [facility] [address] [address] Patient Name: MIGUEL FONTENOT MR #: [id number] : 1935 Age/Sex: 82/F Req #: [id number] Adm Physician: Ordered by: LOY SO FORKLIFT PICKER Report #: [id number] Location: ER Room/Bed: Procedure: [id number] CT/CT BRAIN WO Exam Da te: 07/03/17 [...] 07/03/2017 1:56 PM Dictated By: SEVERIANO DE LA ROSA MD 1356 Transcribed By: YAQUELIN on 07/03/17 1356 COPY TO: Corey SO NP CHEST SINGLE (PORTABLE) [address] [place] [address] Patient Name: MIGUEL FONTENOT MR #: [id number] : 1935 Age/Sex: 82/F Req #: [id number] Adm Physician: Ordered by: LOY SO NP Report #: [id number] Location: ER Room/Bed: Procedure: [id number] DX/CHEST SINGLE (PORTAB LE) Exam Date: 07/03/17 [...] RODRIGUEZ MD 1412 COPY TO: MARLA SO NP MRI BRAIN WO [id number] [address] Patient Name: MIGUEL FONTENOT MR #: [id number] : 1935 Age/Sex: 82/F Req #: [id number] Adm Physician: RODNEY SHIPMAN MD Ordered by: RODNEY SHIPMAN MD Report #: [id number] Location: [facility] Room/Bed: [address] [place] [address] Procedure: [id number] MRI/MRI BRAIN WO Exam [...] TO: RODNEY SHIPMAN MD CT BRAIN WO [address] [place] [address] Patient Name: MIGUEL FONTENOT MR #: [id number] : 1935 Age/Sex: 82/F Req #: [id number] Adm Physician: Ordered by: PATRICK DAMON MD Report #: [id number] Location: ER Room/Bed: Procedure: [id number] CT/CT BRAIN WO Exam Date: 06/13/17 Exam [...] TO: PATRICK DAMON MD CT BRAIN WO [place] [address] Patient Name: MIGUEL FONTENOT MR #: [id number] : 1935 Age/Sex: 81/F Req #: [id number] Adm Physician: Ordered by: PATRICK DAMON MD Report #: [id number] Location: ER Room/Bed: Procedure: [id number] CT/CT BRAIN WO Exam Date: Exam Time: [...] 3:57 PM Dictated By: ATILIO ABARCA MD 1373 Transcribed By: YAQUELIN on 05/15/17 8387 COPY TO: PATRICK DAMON MD
[2020-01-28 11:34] LABS: BASOPHILS % 0.8 % (0.0-1.0); EOSINOPHILS # (AUTO) 0.2 (0.0-0.4); EOSINOPHILS % 3.8 % (0.0-6.0); HEMATOCRIT 53.8 % (34.2-44.1); HEMOGLOBIN 16.7 g/dL (12.0-16.0); LYMPHOCYTES # (AUTO) 0.7 (1.0-3.2); LYMPHOCYTES % 13.7 % (18.0-39.1); MEAN CORPUSCULAR HEMOGLOBIN 29.6 pg (28-32); MEAN CORPUSCULAR VOLUME 95.2 fL (81-99); MONOCYTES # (AUTO) 0.4 (0.2-0.8); MONOCYTES % 8.2 % (4.4-11.3); NEUTROPHILS # (AUTO) 3.7 (2.1-6.9); NEUTROPHILS % 73.3 % (38.7-80.0); PLATELET COUNT 91 x10e3/uL (140-360); RED BLOOD COUNT 5.65 x10e6/uL (3.6-5.1); RED CELL DISTRIBUTION WIDTH 13.5 % (11.7-14.4)
[2020-01-28 11:51] LABS: ALBUMIN 2.9 g/dL (3.5-5.0); ALBUMIN/GLOBULIN RATIO 0.7 (0.8-2.0); CALCIUM 10.9 mg/dL (8.4-10.2); CREATININE, SERUM 7.02 mg/dL (0.57-1.11)
[2020-01-28 11:59] LABS: CREATINE KINASE MB 1.9 ng/mL (0-5.0)
--- NOTE | 2020-01-28 12:32 | Emergency Department Note ---
History of Present Illnes History of Present Illness Chief Complaint: Neurological History of Present Illness This is a 84 year old female arrives to the ED with complaints of difficulty speaking and right hand weakness and numbness. Patient states she can't hold anything up. Patient states the numbness began today but the weakness present since yesterday. Patient states the numbness began on waking up this morning. Chief Complaint Comment PATIENT IN FROM HOME WITH COMPLAINTS OF SLURRED SPEECH AND RIGHT HAND NUMBNESS. PATIENT STATES SHE WOKE UP WITH SLURRED SPEECH THIS MORNING. STATES SHE WAS SEEN HERE IN THE ER YESTERDAY AND DIAGNOSED WITH A TIA AND DISCHARGED. PATIENT ALERT AND ORIENTED, RESP EVEN AND NONLABORED, DENIES PAIN, AMBULATORY WITH STEADY GAIT Historian: Patient, Family Member Arrival Mode: Car Onset (how long ago): hour(s) Severity: mild Duration (how long): day(s) Relieving factors: none Past Medical/Family History Physician Review I have reviewed the patient's past medical and family history. Any updates have been documented here. Past Medical History Recent Fever: No Clinical Suspicion of Infectio: No New/Unexplained Change in Ment: Yes Past Medical History: Hypertension, TIA, Hypothyroidism, UTI's, ESRD, Anemia, Hyperlipedemia, Chronic Kidney Disease, Osteoarthritis Other Medical History: PERITONEAL DIALYSIS Past Surgical History: Appendectomy, Hysterectomy Other Surgery: PERITONEAL DIALYSIS ACCESS CATARACT Family History Family history of heart diseas: No Other Last Tetanus: UNKNOWN Review of Systems Review of Systems Constitutional: no symptoms EENTM: no symptoms Cardiovascular: no symptoms Respiratory: no symptoms Gastrointestinal: no symptoms Genitourinary: no symptoms Musculoskeletal: no symptoms Neurological: weakness Psychological: no symptoms Endocrine: no symptoms Hematological/Lymphatic: no symptoms Review of other systems All other systems reviewed and negative. Physical Exam Related Data Allergies: Coded Allergies: lansoprazole (Verified Allergy, Intermediate, ITCHING, 08/21/18) Triage Vital Signs Vital Signs Date Time Temp Pulse Resp B/P (MAP) Pulse Ox O2 Delivery O2 Flow Rate FiO2 01/28/20 11:00 97.1 77 16 165/63 97 Vital signs reviewed: Yes Physical Exam CONSTITUTIONAL Constitutional: well-developed, well-nourished HENT HENT: normocephalic, atraumatic, oropharynx clear/moist, nose normal HENT L/R: left ext ear normal, right ext ear normal EYES Eyes: PERRL, conjunctivae normal NECK Neck: ROM normal PULMONARY Pulmonary: effort normal, breath sounds normal CARDIOVASCULAR Cardiovascular: regular rhythm, heart sounds normal, capillary refill normal, normal rate GASTROINTESTINAL Abdominal: soft, nontender, bowel sounds normal GENITOURINARY Genitourinary: exam deferred SKIN Skin: warm, dry MUSCULOSKELETAL Musculoskeletal: ROM normal NEUROLOGICAL Neurological: alert, oriented x 3, sensory deficit; no gross motor or sensory deficits PSYCHOLOGICAL Psychological: mood/affect normal, judgement normal Results Laboratory Result Diagram: 01/28/20 1111 01/28/20 1111 Laboratory Laboratory Tests Test 01/28/20 11:11 White Blood Count 5.03 x10e3/uL (4.8-10.8) Red Blood Count 5.65 x10e6/uL (3.6-5.1) Hemoglobin 16.7 g/dL (12.0-16.0) Hematocrit 53.8 % (34.2-44.1) Mean Corpuscular Volume 95.2 fL (81-99) Mean Corpuscular Hemoglobin 29.6 pg (28-32) Mean Corpuscular Hemoglobin Concent 31.0 g/dL (31-35) Red Cell Distribution Width 13.5 % (11.7-14.4) Platelet Count 91 x10e3/uL (140-360) Neutrophils (%) (Auto) 73.3 % (38.7-80.0) Lymphocytes (%) (Auto) 13.7 % (18.0-39.1) Monocytes (%) (Auto) 8.2 % (4.4-11.3) Eosinophils (%) (Auto) 3.8 % (0.0-6.0) Basophils (%) (Auto) 0.8 % (0.0-1.0) Neutrophils # (Auto) 3.7 (2.1-6.9) Lymphocytes # (Auto) 0.7 (1.0-3.2) Monocytes # (Auto) 0.4 (0.2-0.8) Eosinophils # (Auto) 0.2 (0.0-0.4) Basophils # (Auto) 0.0 (0.0-0.1) Absolute Immature Granulocyte (auto 0.01 x10e3/uL (0-0.1) Sodium Level 142 mmol/L (136-145) Potassium Level 4.0 mmol/L (3.5-5.1) Chloride Level 108 mmol/L (98-107) Carbon Dioxide Level 22 mmol/L (22-29) Anion Gap 16.0 mmol/L (8-16) Blood Urea Nitrogen 33 mg/dL (7-26) Creatinine 7.02 mg/dL (0.57-1.11) Estimat Glomerular Filtration Rate 6 ML/MIN (60-) BUN/Creatinine Ratio 5 (6-25) Glucose Level 122 mg/dL (74-118) Calcium Level 10.9 mg/dL (8.4-10.2) Total Bilirubin 0.3 mg/dL (0.2-1.2) Aspartate Amino Transf (AST/SGOT) 15 IU/L (5-34) Alanine Aminotransferase (ALT/SGPT) 15 IU/L (0-55) Alkaline Phosphatase 96 IU/L (40-150) Creatine Kinase 42 IU/L (29-168) Creatine Kinase MB 1.90 ng/mL (0-5.0) Troponin I 0.317 ng/mL (0-0.300) Total Protein 7.0 g/dL (6.5-8.1) Albumin 2.9 g/dL (3.5-5.0) Globulin 4.1 g/dL (2.3-3.5) Albumin/Globulin Ratio 0.7 (0.8-2.0) Lab results reviewed: Yes Imaging Imaging results reviewed: Yes Impressions Impression: No acute abnormalities. Chronic findings: 1. Mild generalized volume loss. 2. Mild supratentorial white matter small vessel ischemic changes. 3. 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 Critical Care Time Subsequent provider I assumed direction of critical care for this patient from another provider of my specialty. Clinical Decision Tools NIH Stroke Scale Interval: baselline NIH Stroke Score: NIH Stroke Score Response (Comments) Value Level of Consciousness Alert, Keenly Responsive 0 Level of Consciousness Questions Answers Both Correctly 0 Level of Consciousness Commands Performs Both Tasks 0 Lateral Gaze Paresis Normal 0 Visual Field Loss No Visual Loss 0 Facial Palsy Normal Symmetrical Move 0 Motor Left Arm No Drift, Arm Stays 45/90 0 Motor Right Arm Drift, Does Not Hit Bed 1 Motor Left Leg No Drift, Arm Stays 45/90 0 Motor Right Leg Drift, Does Not Hit Bed 1 Limb Ataxia Absent 0 Sensory Loss Mild/Mod Sensory Loss 1 Language Aphasia No Aphasia, Normal 0 Dysarthria Mild/Mod Slurs Words 1 Extinction and Inattention No Abnormality 0 Total 4 Baseline increased by 4: No Assessment & Plan Assessment & Plan Final Impression: (1) TRANSIENT CEREBRAL ISCHEMIC ATTACK, UNSPECIFIED (2) CVA (cerebral vascular accident) Assessment & Plan CBC, CMP CT brain Patient out of the window for TPA, admitted for telemetry monitoring and neuro checks. Admission for CVA workup In pt patient carotid ultrasound, CT angiogram and possible MRI Neurology consult per primary medicine team Depart Disposition: ADMITTED Last Vital Signs Date Time Temp Pulse Resp B/P (MAP) Pulse Ox O2 Delivery O2 Flow Rate FiO2 01/28/20 11:00 97.1 77 16 165/63 97 Home Meds Active Scripts Warfarin Sodium (COUMADIN) 5 Mg Tablet, 5 MG PO QD17 for 30 Days Prov:SHELTON HATFIELD Kyle [employer]NAGER [employer] 01/31/20 Reported Medications Ondansetron Hcl* (ZOFRAN*) 4 Mg Tablet, 4 MG PO PRN 01/29/20 Alprazolam (ALPRAZOLAM) 0.25 Mg Tab.rapdis, 0.25 MG PO PRN 01/29/20 Ubidecarenone (Coenzyme Q-10) 50 Mg Capsule, 100 MG PO DAILY 01/29/20 Mirtazapine (MIRTAZAPINE) 7.5 Mg Tablet, 7.5 MG PO HS, TAB 01/29/20 Famotidine (FAMOTIDINE) 20 Mg Tab, 20 MG PO DAILY, #30 TAB 01/29/20 Calcitriol (CALCITRIOL) 0.25 Mcg Capsule, 0.25 MG PO DAILY, #30 TAB 01/29/20 [proliva] No Conflict Check, 160 MG PO q6 months 01/29/20 Sevelamer Carbonate (RENVELA) 0.8 Gm Powd.pack 11/12/18 Cinacalcet Hcl (SENSIPAR) 30 Mg Tablet, 60 MG PO 2100, #30 TAB 11/12/18 Pantoprazole Sodium* (PROTONIX) 40 Mg Tablet.dr, 40 MG PO DAILY 08/21/18 Terazosin Hcl (TERAZOSIN HCL) 1 Mg Capsule, 2 MG PO HS, #30 CAP 05/15/18 Fexofenadine Hcl (SADIQ ALLERGY) 180 Mg Tablet, 160 MG PO PRN PRN for ALLERGY 03/31/14 Aspirin (ASPIR 81) 81 Mg Tablet.dr, 81 MG PO HS 03/31/14 Atorvastatin Calcium (ATORVASTATIN CALCIUM) 10 Mg Tablet, 20 MG PO HS 05/13/13 Metoprolol Succinate (METOPROLOL SUCCINATE) 50 Mg Tab.er.24h, 50 MG PO HS 05/13/13 Levothyroxine Sodium (LEVOTHROID) 75 Mcg Tablet, 75 MCG PO DAILY 05/13/13 Amlodipine Besylate (AMLODIPINE BESYLATE) 5 Mg Tablet, 5 MG PO DAILY 05/13/13 Discontinued Reported Medications Clopidogrel Bisulfate (CLOPIDOGREL) 75 Mg Tablet, 75 MG PO DAILY, #30 TAB 01/29/20 AVA FENTON, Jan 28, 2020 12:32
--- NOTE | 2020-01-28 12:38 | Diagnostic Imaging Report ---
EXAM: CHEST SINGLE (PORTABLE) DATE: 01/28/2020 12:00 PM INDICATION: CVA COMPARISON: None FINDINGS: The trachea is midline. The lungs are symmetrically expanded without evidence for large focal consolidation, pneumothorax, or significant pleural effusion. The cardiomediastinal silhouette and pulmonary vasculature are within normal limits. Atherosclerotic calcifications calcifications are noted within the thoracic aorta. No acute osseous abnormality is identified. The surrounding soft tissues are unremarkable. IMPRESSION: No acute cardiopulmonary process identified. Signed by: Dr. Neno Villalobos MD on 01/28/2020 12:35 PM
--- NOTE | 2020-01-28 12:45 | Diagnostic Imaging Report ---
History:Hand numbness Comparison studies:CT head 01/27/[address] head 10/05/2019 Technique: Axial images were obtained from the skull base to the vertex. Coronal and sagittal images reconstructed from the axial data. Intravenous contrast: None Dose modulation, iterative reconstruction, and/or weight based adjustment of the mA/kV was utilized to reduce the radiation dose to as low as reasonably achievable. Findings: Scalp/skull: No abnormalities. Extra-axial spaces: No masses. No fluid collections. Brain sulci: Mildly prominent. Ventricles: Mild compensatory dilatation. No hydrocephalus. Parenchyma: Scattered subtle hypodensities in the supratentorial white matter are small vessel ischemic changes. Small hypodensity at the left frontal deep white matter with volume loss, stable. Small cortical hypodensity at the left mid frontal gyrus with associated volume loss, stable. No masses, hemorrhage or acute cortical vascular insults. Sellar/suprasellar region: No abnormalities. Craniocervical junction: Patent foramen magnum. No Chiari one malformation. Incidental findings: Atherosclerotic calcifications in the carotid siphons . Impression: No acute abnormalities. Chronic findings: 1. Mild generalized volume loss. 2. Mild supratentorial white matter small vessel ischemic changes. 3. 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 Signed by: DR Severiano Weeks M.D. on 01/28/2020 12:42 PM
--- OUTSIDE RECORDS SUMMARY | 2020-01-28 13:15 | XMS REPORT | Continuity of Care Document ---
Author Author [employer], MIGUEL Wright Organization [employer] Address Unknown Phone Unavailable Care Team Providers Care Reed Dipper Name Role Phone [employer] Information Exchange Unavailable Un available Problems Problem Status Onset Date Classification Date Reported Comments Source Cervicalgia 08/18/2018 03/01/2019 [facility] [place], [facility] [employer] [place] CERVICAL Active 05/11/2018 [facility] [place] UNK Active 0 10/18/2016 [facility] Z12.31 - ENCNTR SCREEN MAMMOGRAM FOR MA Active 07/30/2015 [facility] [place] 585.4 Active 03/04/2015 [place] 585.2 Active 07/30/2014 [facility] Hypothyroidism Active 01/03/2014 [facility] Essential Hypertension Active 01/03/2014 [facility] Chronic Kidney Disease, Stage 2 Active 01/03/2014 [facility] Vaccines Prophylactic Need Against Influenza Active 11/08/2013 [facility] Fainting - Unconscious About 1-5 Minutes Active 06/18/2013 [facility] Diabetes Mellitus Under Control Active 01/03/2014 [facility] Nonspecific Abnormal Results Of Function Studies Active 11/08/2013 [facility] Automatism Active 11/08/2013 [facility] 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 [facility] Anxiety Disorder NOS Active 01/03/2014 [facility] Vitamin B12 Deficiency Active 01/03/2014 [facility] Hyperlipidemia Active 01/03/2014 [facility] Esophageal Reflux Active 01/03/2014 [facility] Urinary Incontinence Active 01/03/2014 [facility] Vitamin D deficiency Active Problem 12/07/2019 [facility] Osteoporosis Active Problem 12/07/2019 [facility] ESRD (end stage renal disease) Active Problem 05/2020 [facility] 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 Active Problem 05/2020 [facility] Rheumatoid arthritis of multiple sites w [facility] rheumatoid factor Active Prob malvin 12/07/2019 [...] reflux disease (disorder) Active Problem 07/22/2019 [facility] [place],[facility] [place], [facility] [employer] Anemia of chronic renal failure (disorder) Active Problem 07/22/2019 [facility] [place],[facility] [place], [facility] [employer] Diabetes mellitus (disorder) A ctive Problem [facility] [place] [place] [employer] [place] Hearing loss (finding) Active Problem 07/22/2019 [facility] [place] [place], [facility] [employer] Hypertensive disorder, systemic arterial (disorder) Active Problem 07/22/2019 [facility] [place],[facility] [place], [facility] [employer] [place] Hypercholesterolemia (disorder) Active Problem [facility] [place] [place], [facility] [employer] Hypertriglyceridemia (disorder) Active Problem [facility] [place] [place], [facility] [employer] Hypothyroidism (disorder) Acti ve Problem [facility] [place] [place], [facility] [employer] [place] Renal failure syndrome (disorder) Active Problem [facility] [place] [place], [facility] [employer] Incisional hernia of anterior abdominal wall (disorder ) Active Problem 07/22/2019 [facility] [place], [place],[facility] [place], [facility] [employer] Anxiety (finding) Active Problem 07/22/2019 [facility] [place] [place], [facility] [employer] Weakness 01/29/2019 [facility] [place] Abnormal posture 03/01/2019 [facility] [place] Encounter for screening mammogram for ma lignant neoplasm of breast 07/22/2019 [facility] [place] Spondylolisthesis, cervical region 11/19/2018 [facility] [place] Muscle weakness (generalized) 03/01/2019 [facility] [place] CHRONIC KIDNEY DISEASE, STAGE 4 (SEVERE) Active [facility] END STAGE RENAL DISEASE Active [facility] Medications Medication Details Route Status Patient Instructions Ordering Provider Order Date Source Vitamin D (Ergocalciferol) 1 c apsule Orally Active 36463 UNIT Orally once a week [place] 11/13/2018 [facility] Prolia as directed Subcutaneous Active 60 MG/ML Subcutaneous q 6 months [place] 10/05/2018 [facility] Prolia 60MG SQ Subcutaneous Active 60 MG/ML Subcutaneous Q 6 MONTHS [place] 08/31/2017 [facility] Prolia 60MG SQ Subcutaneous Active 60 MG/ML Subcutaneous Q [facility] 06/22/2017 [facility] Voltaren Gel apply to affected area Transdermal Active 1% Transdermal Four times a day [place] 04/05/2017 [facility] Vitamin D (Ergocalciferol) 1 c apsule Orally Active 50,000 Orally ONCE A WEEK [place] 12/20/2016 [facility] Oxycodone Hydrochloride 5 MG Oral Tablet 5 mg, Route: PO, Drug form: TAB, ONCE, Dosing Weight 59.545, kg, PRN Pain Score 4-6, Start date: 11/04/16 11:10:00 BUSINESS REPRESENTATIVE Inactive 11/04/2016 [facility] labetalol (ANES) Route: IV, ug form: INJ, ONCE, Stop date: 11/04/16 10:12:00 BUSINESS REPRESENTATIVE Inactive 11/04/2016 [facility] ePHEDrine (ANES) Route: IV, ug form: INJ, ONCE, Stop date: 11/04/16 9:58:00 BUSINESS REPRESENTATIVE Inactive 11/04/2016 [facility] famotidine (ANES) Route: IV, D rug form: INJ, ONCE, Stop date: 11/04/16 9:58:00 BUSINESS REPRESENTATIVE Inactive 11/04/2016 [facility] ondansetron (ANES) Route: IV, Drug form: INJ, ONCE, Stop date: 11/04/16 9:58:00 BUSINESS REPRESENTATIVE Inactive 11/04/2016 [facility] fentaNYL (ANES) Route: IV, Kushal g form: INJ, ONCE, Stop date: 11/04/16 9:58:00 BUSINESS REPRESENTATIVE Inactive 11/04/2016 [facility] propofol (ANES) Route: IV, Kushal g form: INJ, ONCE, Stop date: 11/04/16 9:58:00 BUSINESS REPRESENTATIVE Inactive 11/04/2016 [facility] lidocaine (ANES) Route: IV, Dr ug form: INJ, ONCE, Stop date: 11/04/16 9:58:00 BUSINESS REPRESENTATIVE Inactive 11/04/2016 [facility] rocuronium (ANES) Route: IV, D rug form: INJ, ONCE, Stop date: 11/04/16 9:58:00 BUSINESS REPRESENTATIVE Inactive 11/04/2016 [facility] neostigmine (ANES) Route: IV, Drug form: INJ, ONCE, Stop date: 11/04/16 9:58:00 BUSINESS REPRESENTATIVE Inactive 11/04/2016 [facility] glycopyrrolate (ANES) Route: I V, Drug form: INJ, ONCE, Stop date: 11/04/16 9:58:00 BUSINESS REPRESENTATIVE Inactive 11/04/2016 [facility] acetaminophen-codeine #3 2 tab , Route: PO, Drug Form: TAB, Dosing Weight 59.545, kg, Q4H, PRN Pain Score 4-6, Start date: 11/04/16 9:53:00 BUSINESS REPRESENTATIVE, Duration: 30 day, Stop date: 12/04/16 9:52:00 CDT Inactive 11/04/2016 [facility] Morphine 2 mg, Route: IVP, Q3H , Dosing Weight 59.545, kg, PRN Pain Score 1-3, Start date: 11/04/16 9:53:00 BUSINESS REPRESENTATIVE, Duration: 30 day, Stop date: 12/04/16 9:52:00 CDT Inactive 11/04/2016 [facility] vancomycin (ANES) (ANES) Route : IV, Drug form: INJ, Start date: 11/04/16 9:19:00 BUSINESS REPRESENTATIVE, Stop date: 11/04/16 10:19:00 BUSINESS REPRESENTATIVE Inactive 11/04/2016 [facility] ceFAZolin (ANES) (ANES) Route: IV, Drug form: INJ, Start date: 11/04/16 9:19:00 BUSINESS REPRESENTATIVE, Stop date: 11/04/16 10:19:00 BUSINESS REPRESENTATIVE Inactive 11/04/2016 [facility] sodium chloride 0.9% 500 ml INJ (ANES) Route: IV, Total Volume: 500, Start date: 11/04/16 9:10:00 BUSINESS REPRESENTATIVE, Stop date: 11/04/16 10:10:00 BUSINESS REPRESENTATIVE Inactive 11/04/2016 [facility] sodium chloride 0.9% 500 ml INJ 500 mL 500 mL, Rate: 40 ml/hr, Infuse over: 12.5 hr, Route: IV, Dosing Weight 59.545 kg, Total Volume: 500, Start date: 11/04/16 8:04:00 BUSINESS REPRESENTATIVE, Duration: 1 day, Stop date: 11/05/16 8:03:00 BUSINESS REPRESENTATIVE Inactive 11/04/2016 [facility] Lactated Ringers 1,000 mL 1,00 0 mL, Rate: 40 ml/hr, Infuse over: 25 hr, Route: IV, Dosing Weight 59.545 kg, Total Volume: 1,000, Start date: 11/04/16 8:03:00 BUSINESS REPRESENTATIVE, Duration: 1 day, Stop date: 11/05/16 8:02:00 BUSINESS REPRESENTATIVE Inactive 11/04/2016 [facility] Vitamin D3 50,000 intl units oral capsule 50,000 IntlUnit = 1 cap, PO, qWeek, # 12 cap, 0 Refill(s) Active 10/28/2016 [facility] glimepiride 1 mg oral tablet 1 mg = 1 tab, PO, Daily, 0 Refill(s) Active 10/28/2016 [facility] Ancef Notes: Same as: Ancef No Longer Active 10/28/2016 [facility] Vancomycin 2001 mg: infuse ov er 2.5 hours MEDICATION WASTE Product Size: 1000 mg Product Wasted: ___ mg No Longer Active 10/28/2016 [facility] Famotidine 10 MG Oral Tablet 1 0 mg = 1 tab, PO, BID, 0 Refill(s) Active 10/28/2016 [facility] Vitamin D (Ergocalciferol) 1 c apsule Orally Active 02223 UNIT Orally Once a week [place] 09/10/2016 [facility] PredniSONE 2 tablets with food or milk Orally Active 5 MG Orally Once a day [place] 02/09/2016 [facility] Nexium 1 capsule Orally Active 40 MG Orally Once a day [place] 02/09/2016 [facility] propofol (ANES) Route: IV, Kushal g form: INJ, ONCE, Stop date: 11/24/15 9:58:00 Inactiv e 11/24/2015 [facility] lidocaine (ANES) Route: IV, Dr ug form: INJ, ONCE, Stop date: 11/24/15 9:58:00 Inactiv e 11/24/2015 [facility] fentaNYL (ANES) Route: IV, Kushal g form: INJ, ONCE, Stop date: 11/24/15 9:53:00 Inactiv e 11/24/2015 [facility] midazolam (ANES) Route: IV, Dr ug form: SOLN, ONCE, Stop date: 11/24/15 9:53:00 Inactiv e 11/24/2015 [facility] ceFAZolin (ANES) Route: IV, Dr ug form: INJ, ONCE, Stop date: 11/24/15 9:53:00 Inactiv e 11/24/2015 [facility] Oxycodone Notes: (Same as: Odilia icodone) Inactive 11/24/2015 [facility] Flumazenil Notes: (Same as: Ro mazicon) Inactive 11/24/2015 [facility] Meperidine Notes: (Same As: De merol) Inactive 11/24/2015 [facility] Naloxone Notes: Same as Narcan Inactive 11/24/2015 [facility] Fentanyl Notes: (Same as: Subl imaze) Preservative free. Inactive 11/24/2015 [facility] Hydromorphone 0.5 mg, 0.5 mL, Route: IVP, Drug form: INJ, Q5Min, Dosing Weight 57.784, kg, PRN Pain Score 7-10, Start date: 11/24/15 9:51:00, Duration: 4 doses or times, Stop date: Limited # of times Inactive 11/24/2015 [facility] Ondansetron Notes: (Same as: Carolann ardon) MEDICATION WASTE Product Size: 4 mg Product Wasted: ___ mg Inactive 11/24/2015 [facility] Hydralazine Notes: (Same as: A presoline) Push over 5 minutes Inactive 11/24/2015 [facility] ondansetron (ANES) Route: IV, Drug form: INJ, ONCE, Stop date: 11/24/15 9:43:00 Inactiv e 11/24/2015 [facility] vancomycin (ANES) (ANES) Route : IV, Drug form: INJ, Start date: 11/24/15 9:11:00, Stop date: 11/24/15 10:11:00 Inactive 11/24/2015 [facility] Sodium Chloride 0.154 MEQ/ML Injectable Solution 500 mL, Rate: 25 ml/hr, Infuse over: 20 hr, Route: IV, Dosing Weight 57.784 kg, Total Volume: 500, Start date: 11/24/15 9:09:00, Duration: 30 day, Stop date: 12/24/15 9:08:00 Inactive 11/24/2015 [facility] Sodium Chloride 0.9% IV (ANES) (ANES) Route: IV, Total Volume: 500, Start date: 11/24/15 9:08:00, Stop date: 11/24/15 10:08:00 Inactive 11/24/2015 [facility] Calcium Chloride 0.0014 MEQ/ML / Potassi um Chloride 0.004 MEQ/ML / Sodium Chloride 0.103 MEQ/ML / Sodium Lactate 0.028 MEQ/ML Injectable Solution 1,000 mL, Rate: 25 ml/hr, Infuse over: 4 0 hr, Route: IV, Dosing Weight 57.784 kg, Total Volume: 1,000, Start date: 11/24/15 9:08:00, Duration: 30 day, Stop date: 12/24/15 9:07:00 Inactive 11/24/2015 [facility] Vancomycin 2001 mg: infuse ov er 2.5 hours MEDICATION WASTE Product Size: 1000 mg Product Wasted: ___ mg No Longer Active 11/17/2015 [facility] Ancef Notes: Same as: Ancef No Longer Active 11/17/2015 [facility] Hydralazine 10 mg, Route: IVP, Q20Min, Dosing Weight 60, kg, PRN Elevated BP, Start date: 03/24/15 13:35:00, Duration: 2 doses or times, Stop date: Limited # of times Inactive 03/24/2015 [facility] Glycopyrrolate 0.2 mg, Route: IVP, Q5Min, Dosing Weight 60, kg, PRN Bradycardia, Start date: 03/24/15 13:35:00, Duration: 3 doses or times, Stop date: Limited # of times Inactive 03/24/2015 [facility] Ondansetron 4 mg, Route: IVP, ONCE, Dosing Weight 60, kg, PRN Nausea & Vomiting, Start date: 03/24/15 13:35:00 Inactive 03/24/2015 [facility] Flumazenil 0.2 mg, Route: IVP, PRN, Dosing Weight 60, kg, PRN Benzodiazepine Reversal, Initial dose, Start date: 03/24/15 13:35:00, Duration: 30 day, Stop date: 04/23/15 13:34:00 Inactive 03/24/2015 [facility] Meperidine 12.5 mg, Route: IVP , Q30Min, Dosing Weight 60, kg, PRN Other -See Comment, For shivering, Start date: 03/24/15 13:35:00, Duration: 2 doses or times, Stop date: Limited # of times Inactive 03/24/2015 [facility] Promethazine 6.25 mg, Route: I VPB, ONCE, Dosing Weight 60, kg, PRN Nausea & Vomiting, Start date: 03/24/15 13:35:00 Inactive 03/24/2015 [facility] Naloxone 0.04 mg, Route: IVP, Q2MIN, Dosing Weight 60, kg, PRN Narcotic Reversal, Start date: 03/24/15 13:35:00, Duration: 8 doses or times, Stop date: Limited # of times Inactive 03/24/2015 [facility] Morphine 4 mg, Route: IVP, Q5M in, Dosing Weight 60, kg, PRN Pain Score 7-10, Start date: 03/24/15 13:35:00, Duration: 3 doses or times, Stop date: Limited # of times Inactive 03/24/2015 [facility] Hydromorphone 0.5 mg, Route: 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, Q5Min, Dosing Weight 60, kg, PRN Pain Score 7-10, Start date: 03/24/15 13:35:00, Duration: 4 doses or times, Stop date: Limited # of times Inactive 03/24/2015 [facility] Diphenhydramine 12.5 mg, Route : IVP, Drug form: INJ, Q6H, Dosing Weight 60, kg, PRN Itching, Start date: 03/24/15 13:35:00, Duration: 30 day, Stop date: 04/23/15 13:34:00 Inactive 03/24/2015 [facility] Fentanyl 25 microgram, Route: IVP, Q5Min, Dosing Weight 60, kg, PRN Pain Score 4-6, Start date: 03/24/15 13:35:00, Duration: 4 doses or times, Stop date: Limited # of times Inactive 03/24/2015 [facility] Ketorolac 4 days MEDICA TION WASTE Product Size: 30 mg Product Wasted: ___ mg Inactive 03/24/2015 [facility] Oxycodone 10 mg, Route: PO, Dr ug form: TAB, Q4H, Dosing Weight 60, kg, PRN Pain Score 7-10, Start date: 03/24/15 13:35:00, Duration: 30 day, Stop date: 04/23/15 13:34:00 Inactive 03/24/2015 [facility] Metoprolol 1 mg, Route: IVP, Q 5Min, Dosing Weight 60, kg, PRN Other -See Comment, Start date: 03/24/15 13:35:00, Duration: 5 doses or times, Stop date: Limited # of times Inactive 03/24/2015 [facility] acetaminophen-codeine #3 1 tab , Route: PO, Drug Form: TAB, Dosing Weight 60, kg, Q4H, PRN Pain Score 4-6, Start date: 03/24/15 13:01:00, Duration: 30 day, Stop date: 04/23/15 13:00:00 Inactive 03/24/2015 [facility] Morphine 2 mg, Route: IVP, Q3H , Dosing Weight 60, kg, PRN Pain Score 1-3, Start date: 03/24/15 13:01:00, Duration: 30 day, Stop date: 04/23/15 13:00:00 Inactive 03/24/2015 [facility] Ancef 2 gm, Route: IVPB, ONCE, Dosing Weight 60, kg, Start date: 03/24/15 11:43:00, Duration: 1 doses or times, Stop date: 03/24/15 11:43:00 Inactive 03/24/2015 [facility] Sodium Chloride 0.154 MEQ/ML Injectable Solution 500 mL, Rate: 25 ml/hr, Infuse over: 20 hr, Route: IV, Dosing Weight 60 kg, Total Volume: 500, Start date: 03/23/15 8:26:00, Duration: 2 day, Stop date: 03/25/15 8:25:00 No Longer Active 03/23/2015 [facility] Vancomycin Notes: TIME CRITICA L MEDICATION No Longer Active 03/17/2015 [facility] Atorvastatin Calcium 10 MG Oral Tablet ; Start Date: 11/08/2013; End Date: (Active) Active 11/08/2013 [facility] Fenofibrate 48 MG Oral Tablet ; [...] Cyanocobalamin 1000 MCG/ML Injection Solution (Active) Active [facility] Fenofibrate 48 MG Oral Tablet (Active) Active [facility] TABS (Active) Active [facility] Fish Oil CAPS (Active) Active [facility] Losartan Potassium 25 MG Oral Tablet (Active) Active [facility] Nubia Allergy 180 MG Oral Tablet (Active) Active [facility] Integra Plus CAPS (Active) Active [facility] Fish Oil Concentrate 1000 MG Oral Capsule (Active) Active [facility] Clopidogrel Bisulfate 75 MG Oral Tablet [...] Orally Active 50,000 Orally ONCE A WEEK [facility] Aspir-81 1 tablet Orally [...] Orally Once a day Ranjit [facility] 3 1 capsule Orally Active 1200 mg [...] Orally Once a day Ranjit [facility] 3 1 capsule Orally Active 1200 mg Orally Once a d ay Oz[facility] genie Souza Famotidine 1 tablet as needed Orally Active 10 MG Orally Twice a day Laith Souza Amlodipine Besylate 1/2 tablet Orally Active 5 MG Orally Once a day Laith Souza Prolia 60MG SQ Subcutaneous Active 60 MG/ML Subcutaneous Q 6 MONTHS [facility] Cyanocobalamin 1 ml Injection Active 1000 MCG/ML Injection O nce a month Laith Souza Sodium Bicarbonate 1 tablet Orally Active 650 MG Orally twice a day Laith Souza Paroxetine HCl 1 tablet in the morning Orally Active 10 MG Orally Once a day Laith Souza Levothyroxine Sodium 1 tablet Orally Active 75 MCG Orally Once a day [place] [facility] Ergocalciferol 1 capsule Orally Active 1000 mg Orally Once a d Laith [facility] Metoprolol Tartrate 1 tablet Orally Active 50 MG Orally Once a day [place] [facility] Aspir-81 1 tablet Orally Active 81 MG Orally Once a day [place] Farshad [facility] Calcitriol 1 capsule Orally Active 0.25 MCG Orally [facility] Tizanidine HCl 1 tablet as nee ded Orally Active 4 MG Orally Three times a day Laith Souza Vitamin B-12 15 ml Orally Active 1000 MCG/15ML Orally On ce a day [facility] Synthroid 1 tablet every morni ng on an empty stomach Orally Active 75 MCG Orally Once a day [facility] Omeprazole 2 capsules Orally Active [...] Active 48 MG Orally Once a day [facility] genie Souza Atorvastatin Calcium 1 tablet Orally Active 10 MG Orally Once a day [facility] Fenofibrate 1 tablet Orally Active 48 MG Orally Once a day Souza Farshad Souza Aspirin 2 tablets Orally Active 81 MG Orally every nigh t [place] Farshad Souza Famotidine 1 tablet as needed [...] drug a llergy drug aller gy Active [facility] Plavix TABS drug allergy drug allergy Active [facility] Immunizations Immunization Date Given Site Status Last Updated Comments Source Prolia 09/10/2016 completed [facility] Prolia 03/11/2016 completed [facility] Influenza 05/22/2013 completed [facility] Zoster (Zostavax) completed [facility] Influenza completed [facility] Results Order Name Results Value Reference Range Date Interpretation Comments Source ELECTROLYTES Potassium Lvl 4.3 3.5 - 5.1 11/04/2016 [facility] BLOOD BANK RESULTS Antibody Scrn Negative (10/28/16 10:13 AM) 10/28/2016 [facility] BLOOD BANK RESULTS ABO/Rh A POS 10/28/2016 [facility] ELECTROLYTES AGAP 12.4 10.0 - 20.0 10/28/2016 [facility] ELECTROLYTES eGFR 12 10/28/2016 Result Comment: [...] should be multiplied by the estimated BMI. [facility] ELECTROLYTES BUN 36 7 - 22 10/28/2016 [facility] ELECTROLYTES Glucose Lvl 95 70 - 99 10/28/2016 [facility] ELECTROLYTES Creatinine Lvl 3.5 0 0.50 - 1.40 10/28/2016 [facility] ELECTROLYTES Calcium Lvl 9.1 8.5 - 10.5 10/28/2016 [facility] ELECTROLYTES CO2 21 24 - 32 10/28/2016 [facility] ELECTROLYTES Potassium Lvl 4.4 3.5 - 5.1 10/28/2016 [facility] ELECTROLYTES Chloride Lvl 112 95 - 109 10/28/2016 [facility] ELECTROLYTES Sodium Lvl 141 135 - 145 10/28/2016 [facility] HEMATOLOGY Lymphocytes 21.2 20.0 - 40.0 10/28/2016 [facility] HEMATOLOGY Basophils 1.5 0.0 - 1.0 10/28/2016 [facility] HEMATOLOGY Segs-Bands # 4.2 1.5 - 8.1 10/28/2016 [facility] HEMATOLOGY Eosinophils 3.9 0.0 - 4.0 10/28/2016 [facility] HEMATOLOGY Monocytes 7.5 2.0 - 12.0 10/28/2016 [facility] HEMATOLOGY Eosinophils # 0.2 0.0 - 0.5 10/28/2016 [facility] HEMATOLOGY Lymphocytes # 1.4 1.0 - 5.5 10/28/2016 [facility] HEMATOLOGY Monocytes # 0.5 0.0 - 0.8 10/28/2016 [facility] HEMATOLOGY Basophils # 0.1 0.0 - 0.2 10/28/2016 [facility] Segs 65.9 45.0 - 75.0 10/28/2016 [facility] INR 1.04 0.85 - 1.17 10/28/2016 [facility] PT 13.8 12.0 - 14.7 10/28/2016 [facility] PTT 30.0 22.9 - 35.8 10/28/2016 [facility] MPV 8.3 7.4 - 10.4 10/28/2016 [facility] MCHC 34.0 32.0 - 36.0 10/28/2016 [facility] RDW 13.5 11.5 - 14.5 10/28/2016 [facility] RBC 3.45 4.20 - 5.40 10/28/2016 [facility] Hct 30.5 36.0 - 48.0 10/28/2016 [facility] Hgb 10.4 12.0 - 16.0 10/28/2016 [facility] MCV 88.5 80.0 - 98.0 10/28/2016 [facility] MCH 30.1 27.0 - 31.0 10/28/2016 [facility] HEMATOLOGY Platelet 135 133 - 450 10/28/2016 [facility] HEMATOLOGY WBC 6.4 3.7 - 10.4 10/28/2016 [facility] ELECTROLYTES Potassium Lvl 5.0 3.5 - 5.1 11/24/2015 [facility] CHEM PANEL eGFR 18 11/17/2015 Result [...] should be multiplied by the estimated BMI. [facility] CHEM PANEL Calcium Lvl 7.9 8.5 - 10.5 11/17/2015 [facility] CHEM PANEL CO2 20 24 - 32 11/17/2015 [facility] CHEM PANEL Chloride Lvl 113 95 - 109 11/17/2015 [facility] CHEM PANEL Potassium Lvl 4.8 3.5 - 5.1 11/17/2015 [facility] CHEM PANEL Sodium Lvl 140 135 - 145 11/17/2015 [facility] CHEM PANEL Creatinine Lvl 2.45 0.50 - 1.40 11/17/2015 [facility] CHEM PANEL BUN 37 7 - 22 11/17/2015 [facility] CHEM PANEL Glucose Lvl 130 70 - 99 11/17/2015 [facility] CHEM PANEL AGAP 11.8 10.0 - 20.0 11/17/2015 [facility] HEMATOLOGY INR 1.15 0.85 - 1.17 11/17/2015 [facility] HEMATOLOGY PT 15.0 12.0 - 14.7 11/17/2015 [facility] HEMATOLOGY MCV 89.9 80.0 - 98.0 11/17/2015 [facility] HEMATOLOGY MPV 8.5 7.4 - 10.4 11/17/2015 [facility] MCHC 33.1 32.0 - 36.0 11/17/2015 [facility] HEMATOLOGY RDW 14.3 11.5 - 14.5 11/17/2015 [facility] MCH 29.7 27.0 - 31.0 11/17/2015 [facility] Platelet 158 133 - 450 11/17/2015 [facility] Hct 27.1 36.0 - 48.0 11/17/2015 [facility] HEMATOLOGY RBC 3.01 4.20 - 5.40 11/17/2015 [facility] HEMATOLOGY Hgb 9.0 12.0 - 16.0 11/17/2015 [facility] HEMATOLOGY WBC 5.6 3.7 - 10.4 11/17/2015 [facility] HEMATOLOGY PTT 27.1 22.9 - 35.8 11/17/2015 [facility] HEMATOLOGY Basophils # 0.1 0.0 - 0.2 11/17/2015 [facility] HEMATOLOGY Segs-Bands # 3.9 1.5 - 8.1 11/17/2015 [facility] HEMATOLOGY Eosinophils # 0.1 0.0 - 0.5 11/17/2015 [facility] HEMATOLOGY Lymphocytes # 1.1 1.0 - 5.5 11/17/2015 [facility] HEMATOLOGY Monocytes # 0.5 0.0 - 0.8 11/17/2015 [facility] Lymphocytes 18.8 20.0 - 40.0 11/17/2015 [facility] HEMATOLOGY Basophils 1.4 0.0 - 1.0 11/17/2015 [facility] Monocytes 8.0 2.0 - 12.0 11/17/2015 [facility] HEMATOLOGY Eosinophils 2.1 0.0 - 4.0 11/17/2015 [facility] HEMATOLOGY Segs 69.7 45.0 - 75.0 11/17/2015 [facility] CHEM PANEL Glucose Lvl 100 70 - 99 03/24/2015 [facility] ELECTROLYTES Potassium Lvl 5.4 3.5 - 5.1 03/24/2015 [facility] CHEM PANEL BUN 50 7 - 22 03/17/2015 [facility] CHEM PANEL eGFR 13 03/17/2015 Result [...] should be multiplied by the estimated BMI. [facility] CHEM PANEL Creatinine Lvl 3.3 0.5 - 1.4 03/17/2015 [facility] CHEM PANEL Sodium Lvl 140 135 - 145 03/17/2015 [facility] CHEM PANEL Glucose Lvl 106 70 - 99 03/17/2015 [facility] CHEM PANEL Potassium Lvl 4.7 3.5 - 5.1 03/17/2015 [facility] CHEM PANEL Chloride Lvl 109 95 - 109 03/17/2015 [facility] CHEM PANEL Calcium Lvl 9.2 8.5 - 10.5 03/17/2015 [facility] CHEM PANEL CO2 20 24 - 32 03/17/2015 [facility] CHEM PANEL AGAP 15.7 10.0 - 20.0 03/17/2015 [facility] HEMATOLOGY PTT 34.3 22.9 - 35.8 03/17/2015 [facility] HEMATOLOGY INR 1.16 0.85 - 1.17 03/17/2015 [facility] HEMATOLOGY PT 14.9 12.0 - 14.7 03/17/2015 [facility] HEMATOLOGY MPV 9.0 7.4 - 10.4 03/17/2015 [facility] HEMATOLOGY Platelet 158 133 - 450 03/17/2015 [facility] HEMATOLOGY Hct 27.7 36.0 - 48.0 03/17/2015 [facility] HEMATOLOGY MCV 87.9 80.0 - 98.0 03/17/2015 [facility] HEMATOLOGY RBC 3.15 4.20 - 5.40 03/17/2015 [facility] Hgb 9.3 12.0 - 16.0 03/17/2015 [facility] MCHC 33.7 32.0 - 36.0 03/17/2015 [facility] HEMATOLOGY RDW 14.0 11.5 - 14.5 03/17/2015 [facility] MCH 29.6 27.0 - 31.0 03/17/2015 [facility] HEMATOLOGY WBC 5.4 3.7 - 10.4 03/17/2015 [facility] HEMATOLOGY Lymphocytes # 1.2 1.0 - 5.5 03/17/2015 [facility] HEMATOLOGY Segs-Bands # 3.4 1.5 - 8.1 03/17/2015 [facility] HEMATOLOGY Basophils 1.4 0.0 - 1.0 03/17/2015 [facility] HEMATOLOGY Eosinophils 3.0 0.0 - 4.0 03/17/2015 [facility] HEMATOLOGY Basophils # 0.1 0.0 - 0.2 03/17/2015 [facility] HEMATOLOGY Monocytes # 0.6 0.0 - 0.8 03/17/2015 [facility] HEMATOLOGY Eosinophils # 0.2 0.0 - 0.5 03/17/2015 [facility] HEMATOLOGY Monocytes 10.9 2.0 - 12.0 03/17/2015 [facility] HEMATOLOGY Segs 62.7 45.0 - 75.0 03/17/2015 [facility] HEMATOLOGY Lymphocytes 22.0 20.0 - 40.0 03/17/2015 [facility] Pathology Reports No Data Provided for This Section Diagnostic Reports Report Value Date Source Breast Mammo Scrn MC incl CAD MA BILATERAL DIGITAL SCREENING MAMMOGRAM WITH CAD: 07/19/2019 CLINICAL: Screening/Screening. Current study was evaluated with a Computer Aided Detection (CAD) system. COMPARISON:Comparison is made to exams dated: 07/17/2018 mammogram, 07/16/2017 mammogram, 08/19/2015 mammogram - [facility], 06/26/2014 mammogram, 09/28/2013 mammogram, and 09/26/2012 mammogram - [facility]. TECHNIQUE: Mammographic views were obtained using [...] is recommended.(07/19/2020) This exam was interpreted at [id number] for Melody, SL 15. Professional services are provided by the [facility]. Kelley Del Rio M.D., ms/osito:07/20/2019 08:33:03 Employee Benefits Director(s): RT Celeste(R)(M), [facility] letter sent: BI-RADS 1/2 Dense Mammogram BI-RADS: 2 Benign 07/19/2019 [facility] Breast Mammo Scrn MC incl CAD MA BILATERAL DIGITAL SCREENING MAMMOGRAM WITH CAD: 07/17/2018 CLINICAL: Routine/Screening. Current study was evaluated with a Computer Aided Detection (CAD) system. COMPARISON:Comparison is made to exams dated: 07/16/2017 mammogram, 08/19/2015 mammogram - [facility], 06/26/2014 mammogram, 09/28/2013 mammogram, 09/26/2012 mammogram, and 09/17/2011 mammogram - [facility]. TECHNIQUE: Mammographic views were obtained using [...] is recommended.(07/18/2019) This exam was interpreted at [id number] for CHELSEA Sun. Professional services are provided by the [facility] Diagnostic Imaging. Deisy Vance M.D. ak/penrad:07/19/2018 10:59:26 Employee Benefits Director(s): RT Herminio(R)(M), [facility] letter sent: BI-RADS 1/2 Mammogram BI-RADS: [...] is appreciated IMPRESSION: Mild C4-C5 listhesis. 05/02/2018 [facility] Breast Mammo Scrn MC incl CAD MA BILATERAL DIGITAL SCREENING MAMMOGRAM WITH CAD: 07/16/2017 CLINICAL: /Z12.31 Encounter For Screening Mammogram For Malignant Neoplasm Of Breast. Current study was evaluated with a Computer Aided Detection (CAD) system. COMPARISON:Comparison is made to exams dated: 08/19/2015 mammogram - [facility], 06/26/2014 mammogram, 09/28/2013 mammogram, 09/26/2012 mammogram, and 09/17/2011 mammogram - [facility]. TECHNIQUE: Mammographic views were obtained using [...] screening mammogram is recommended.(07/17/2018) Wili bartlett/osito:07/19/2017 09:55:37 Employee Benefits Director(s): Tejal Lucio [facility] letter sent: BI-RADS 1/2 Dense Mammogram BI-RADS: 2 Benign 07/16/2017 [facility] Chest 2 views DX EXAM: XR [...] significant change with compared with 03/17/2015. 03/03/2016 [facility] Digital Mammo Screening Mc MA - DIGITAL MAMMO SCREENING MC MA BILATERAL DIGITAL SCREENING MAMMOGRAM WITH CAD: 08/19/2015 CLINICAL: Routine. Current study was evaluated with a Computer Aided Detection (CAD) system. Comparison is made to exams dated: 06/26/2014 mammogram, 09/28/2013 mammogram, 09/26/2012 mammogram and 09/17/2011 mammogram - [facility]. The tissue of both breasts is [...] is recommended. Paul Vick M.D., cm/penrad:08/27/2015 11:51:17 Employee Benefits Director: Anna Bay RT(R)(M), [facility] This exam was dictated and interpreted by [id number] for [place]. letter sent: Normal exam Mammogram BI-RADS: 2 Benign 08/19/2015 [facility] [place] Chest 2 views DX PA and LATERA [...] Atherosclerosis. Coding: Chest 2 views CPT Code: 45328 SL: 13 Avni Vazquez M.D. 03/17/2015 [facility] Consultation Notes No Data Provided for [...] 17 11/04/2016 [facility] 72 11/04/2016 [facility] Temperature Oral (F) 97.5 F 10/28/2016 [facility] Rate 54 10/28/2016 [facility] Height 162.56 cm 10/28/2016 [facility] Weight 59.545 10/28/2016 [facility] BMI Calculated 22.53 10/28/2016 [facility] Weight 129 09/10/2016 [facility] Height 64 0 09/10/2016 [facility] Temperature Oral (F) 96.9 F 09/10/2016 [facility] Heart Rate 60 09/10/2016 [facility] Diastolic (mm Hg) 60 09/10/2016 [facility] Systolic (mm Hg) 124 09/10/2016 [facility] Weight 124 03/11/2016 [facility] Height 64 0 03/11/2016 [facility] [...] 16 11/24/2015 [facility] Respitory Rate 14 11/24/2015 [facility] Temperature Oral (F) 97.9 F 11/17/2015 [facility] Heart Rate 61 11/17/2015 [facility] BMI Calculated 21.87 11/17/2015 [facility] Weight 57.784 11/17/2015 [facility] Height 162.56 cm 11/17/2015 [facility] Systolic (mm Hg) 142 03/24/2015 [facility] Diastolic (mm Hg) 49 03/24/2015 [facility] Systolic (mm Hg) 133 03/24/2015 [facility] Diastolic (mm Hg) 46 03/24/2015 [facility] Systolic (mm Hg) 142 03/24/2015 [facility] Diastolic (mm Hg) 45 03/24/2015 [facility] Respitory Rate 15 03/24/2015 [facility] Respitory Rate 19 03/24/2015 [facility] Respitory Rate 15 03/24/2015 [facility] Heart Rate 65 03/17/2015 [facility] Temperature Oral (F) 98.4 F 03/17/2015 [facility] Height 162.56 cm 03/17/2015 [facility] BMI Calculated 22.71 03/17/2015 [facility] Weight 60 0 03/17/2015 [facility] Weight 140 12/12/2014 [facility] Height [...] ADM Date DC Date Status Source AUDIT [id number] 05/29/2013 05/29/2013 [facility] AUDIT [id number] 06/04/2013 06/04/2013 [facility] Sebastian CUTLER dakota: VANI SHIPMAN, Status: Pen, Time: 11:45 AM [id number] 06/07/20 13 06/04/2013 [facility] AUDIT [id number] 06/18/2013 06/18/2013 [facility] AUDIT [id number] 07/12/2013 07/12/2013 [facility] FUP, Provi dakota: VANI SHIPMAN, Status: Pen, Time: 12:15 PM [id number] 08/09/20 13 07/12/2013 [facility] AUDIT [id number] 08/09/2013 08/09/2013 [facility] AUDIT [id number] 08/16/2013 08/16/2013 [facility] FUP, Provi dakota: VANI SHIPMAN, Status: Pen, Time: 2:15 PM [id number] 09/05/19 14 08/16/2013 [facility] FUP, Provi dakota: VANI SHIPMAN, Status: Pen, Time: 2:15 PM [id number] 10/09/19 14 08/16/2013 [facility] AUDIT [id number] 10/09/2013 10/09/2013 [facility] AUDIT [id number] 10/25/2013 10/25/2013 [facility] FUP, Provi dakota: VANI SHIPMAN, Status: Pen, Time: 2:15 PM [id number] 11/07/19 14 10/25/2013 [facility] AUDIT [id number] 11/06/2013 11/06/2013 [facility] AUDIT [id number] 11/08/2013 11/08/2013 [facility] Martin Souza MD 6m fu [id number] 12/12/2013 12/12/2013 [facility] MD 6m fu [id number] 12/12/2013 12/12/2013 [facility] MD 6m fu [id number] 12/12/2013 12/12/2013 [facility] MD 6m fu [id number] 12/12/2013 12/12/2013 Castillo Sou[facility] MD 6m fu [id number] 12/12/2013 12/12/2013 Castillo Sou[facility] MD 6m fu [id number]-d7j0-[id number] 12/12/2013 12/12/2013 Castillo Souza MD 6m fu [id number] 12/12/2013 12/12/2013 Castillo Souza MD 6m fu [id number] 12/12/2013 12/12/2013 Castillo Souza MD 6m fu [id number]-rm39t4975y1z 12/12/2013 12/12/2013 [facility] MD 6m fu 13bmlg9a-f1h4-8dt7-6101-9a0mg20g4z5m 12/12/2013 12/12/2013 Castillo Sou[facility] MD 6m fu [id number] 12/12/2013 12/12/2013 Castillo Souza MD 6m fu [id number] 12/12/2013 12/12/2013 [facility] MD 6m fu [id number] 12/12/2013 12/12/2013 [facility] FULesli, Provi dakota: VANI SHIPMAN, Status: Pen, Time: 12:45 PM [id number] 01/04/20 14 11/08/2013 [facility] AUDIT [id number] 01/03/2014 01/03/2014 [facility] HE, Provi dakota: VANI SHIPMAN, Status: Pen, Time: 2:00 PM [id number] 05/01/20 14 01/03/2014 [facility] Martin Souza MD 6m fu [id number] 06/13/2014 06/13/2014 [facility] MD 6m fu [id number] 06/13/2014 06/13/2014 [facility] MD 6m fu [id number]-[id number] 06/13/2014 06/13/2014 Castillo Souza MD 6m fu [id number] 06/13/2014 06/13/2014 Castillo Souza MD 6m fu [id number] 06/13/2014 06/13/2014 Castillo Souza MD 6m fu [id number] 06/13/2014 06/13/2014 Castillo [facility] MD 6m fu [id number] 06/13/2014 06/13/2014 Castillo Souza MD 6m fu [id number]-83c7-vl00s32m40y0 06/13/2014 06/13/2014 [facility] MD 6m fu [id number]-[id number] 06/13/2014 06/13/2014 [facility] MD 6m fu [id number]-17br-58q0-j329v2m2f72c 06/13/2014 06/13/2014 [facility]illo [facility] MD 6m fu [id number] 06/13/2014 06/13/2014 [facility] MD 6m fu [id number]-1548-64y8-7921076ix73p 06/13/2014 06/13/2014 Castillo Souza MD [facility] [id number] 12/07/19 15 12/06/2014 [facility] MD [facility] [id number] 12/07/19 15 12/06/2014 [facility] MD MRI Bi Hands [id number] 12/07/19 15 12/06/2014 Castillo Souza MD MRI Bi Hands [id number] 12/07/19 15 12/06/2014 [facility]illo [facility] MD MRI Bi Hands [id number]-[id number]-[id number] 12/07/19 15 12/06/2014 [facility] MD [facility] Bi Hands [id number] 12/07/19 15 12/06/2014 Castillo Sou[facility] MD MRI Bi Hands [id number]-6tj2r1387j27 12/07/19 15 12/06/2014 [facility] MD MRI Bi Hands [id number]-[id number] 12/07/19 15 12/06/2014 [facility] MD MRI Bi Hands [id number]-[id number]-m36h-e89516ytgd4f 12/07/19 15 12/06/2014 [facility]illo [facility] MD MRI Bi Hands [id number] 12/07/19 15 12/06/2014 [facility] MD MRI Bi Hands 0s38v6ou-[id number]-e0x9-9h5o045wn301 12/07/1912/06/2014 [facility] MD 6m fu z2gle5b0-[id number]-f809-06v655u4s3q7 12/12/2014 12/12/2014 Castillo Souza MD 6m fu [id number]-s0a3-5c86crh94302 12/12/2014 12/12/2014 [facility] Sou[facility] MD 6m fu [id number]-2scp-0s169p909273 12/12/2014 12/12/2014 [facility] MD fu 7a9wie17-[id number]-yw0367k94p4i 12/12/2014 12/12/2014 Castillo oSuza MD fu [id number] 12/12/2014 12/12/2014 Castillo Sou[facility] MD 6m fu [id number]-43mg-y784-65u152g76461 12/12/2014 12/12/2014 Castillo Souza MD fu [id number] 12/12/2014 12/12/2014 Castillo Souza MD 6m fu [id number]-48j592852iq3 12/12/2014 12/12/2014 [facility] MD 6m fu [id number]-[id number] 12/12/2014 12/12/2014 Castillo Sou[facility] MD 6m fu 25x23s9v-31ja-21x1-h872-2s2924cxhy51 12/12/2014 12/12/2014 Castillo Souza MD fu [id number]-q9d6-43m4zb13i920 12/12/2014 12/12/2014 Castillo Souza MD MRI [id number] 12/18/2014 12/18/2014 Castillo Sou[facility] MD MRI [id number]-u8057y438zoi 12/18/2014 12/18/2014 Castillo Souza MD MRI [id number] 12/18/2014 12/18/2014 Castillo Souza MD MRI [id number]-35nn-[id number] 12/18/2014 12/18/2014 Castillo Sou[facility] MD MRI [id number]-[id number]-qz037n7goi14 12/18/2014 12/18/2014 Castillo Souza MD MRI [id number] 12/18/2014 12/18/2014 Castillo Souza MD MRI [id number] 12/18/2014 12/18/2014 Castillo Souza MD MRI [id number]-[id number] 12/18/2014 12/18/2014 [facility] MD MRI [id number]-6kf5-8qp94067s73d 12/18/2014 12/18/2014 Castillo [facility] MD MRI [id number]-ttx4-06q3q5l794ns 12/18/2014 12/18/2014 Castillo Souza MD [facility] [id number] 12/18/2014 12/18/2014 Castillo Souza MD Prolia [id number]-[id number]-m769-8k69icb66x66 12/21/19 15 12/20/2014 Castillo [facility] MD Prolia [id number]-[id number] 12/21/19 15 12/20/2014 MD Catalino Pitts [id number] 12/21/19 15 12/20/2014 MD Catalino Pitts [id number]-u123s9ks53xi 12/21/19 15 12/20/2014 [facility] MD Prolsharmila k770hm6o-[id number] 12/21/19 15 12/20/2014 MD Catalino Pitts [id number] 12/21/19 15 12/20/2014 MD Tao Pittsia [id number]-61s9-g77e-9kt5nu3yz853 12/21/19 15 12/20/2014 MD Tao Pittsia 5ofzd636-995t-33j8-1238-885nr585092x 12/21/19 15 12/20/2014 MD Toa Pittsia [id number] 12/21/19 15 12/20/2014 MD Tao Pittsia [id number]-m467-95p1rz719219 12/21/19 15 12/20/2014 MD Catalino Pitts [id number]-gk63-4u4vut4s3a9v 12/21/19 15 12/20/2014 MD Catalino Pitts [id number]-41yc-sd5e1815c8ha 01/01/20 15 12/31/2014 MD Catalino Pitts [id number]-190y-[id number] 01/01/20 15 12/31/2014 MD Ctaalino Pitts [id number]-q32w-mro25094448d 01/01/20 15 12/31/2014 MD Catalino Pitts [id number]-74n9-09n4-z99849dsnl58 01/01/20 15 12/31/2014 MD Catalino Pitts t720g6nf-[id number]-04x4-mbk1h65668d9 01/01/20 15 12/31/2014 MD Catalino Pitts [id number]-455l-[id number]-30ps494a8g66 01/01/20 15 12/31/2014 MD Catalino Pitts 8y72xf7h-[id number]-7qqp-6brb524zh6i8 01/01/20 15 12/31/2014 MD Catalino Pitts [id number]-1wey-117m-7s0023j46d8m 01/01/20 15 12/31/2014 MD Catalino Pitts [id number]-857y1m568lk8 01/01/20 15 12/31/2014 MD Catalino Pitts [id number]-[id number]-[id number] 01/01/20 15 12/31/2014 Castillo [facility]za MD Prolia 14d72eal-np0j-707q-kzt9-55n3jlx2065w 01/01/20 15 12/31/2014 Castillo Souza MD Appointment [id number] 01/24/20 15 01/23/2015 Castillo Souza MD Appointment [id number] 01/24/20 15 01/23/2015 Castillo Souza MD Appointment [id number] 01/24/20 15 01/23/2015 Castillo Souza MD Appointment [id number] 01/24/20 15 01/23/2015 Castillo Souza MD Appointment [id number]-[id number] 01/24/20 15 01/23/2015 Castillo Souza MD Appointment [id number] 01/24/20 15 01/23/2015 Castillo Souza MD Appointment 67wyw1g5-[id number]-3291u2n461l6 01/24/20 15 01/23/2015 Castillo Souza MD Appointment [id number]-kq0c-[id number] 01/24/20 15 01/23/2015 Castillo Souza MD Appointment [id number] 01/24/20 15 01/23/2015 Castillo Souza [facility] OBS Day Surgery [id number] Dangelo Hand 03/24/2015 03/24/2015 [facility] Martin Souza MD 6m fu [id number] 06/13/2015 06/13/2015 Castillo Souza MD 6m fu [id number] 06/13/2015 06/13/2015 Castillo Souza MD 6m fu [id number]-23t4-ekf7-899g1l5z7760 06/13/2015 06/13/2015 Castillo Souza MD 6m fu [id number] 06/13/2015 06/13/2015 Castillo Souza MD 6m fu [id number]-[id number] 06/13/2015 06/13/2015 Castillo Souza MD 6m fu [id number] 06/13/2015 06/13/2015 Castillo Souza MD 6m fu [id number]-u8s6xbpx5e0z 06/13/2015 06/13/2015 Castillo Souza MD 6m fu [id number] 06/13/2015 06/13/2015 Castillo Souza MD 6m fu [id number] 06/13/2015 06/13/2015 MD nasra Pittstera [id number]-otvu5k25nn38 06/17/2006/17/2015 Castillo [facility]za MD mirtera [id number] 06/17/20 15 06/17/2015 Castillo Souza MD mirtera [id number]-[id number] 06/17/20 15 06/17/2015 Castillo Souza MD mirtera [id number]-[id number] 06/17/20 15 06/17/2015 Castillo Souza MD mirtera [id number]-[id number] 06/17/20 15 06/17/2015 Castillo Souza MD mirtera [id number]-7v371ttz192y 06/17/20 15 06/17/2015 Castillo Souza MD mirtera [id number] 06/17/20 15 06/17/2015 Castillo Souza MD mirtera [id number] 06/17/20 15 06/17/2015 Castillo Souza MD mirtera [id number] 06/17/20 15 06/17/2015 Castillo Souza MD DEXA [id number] 07/11/2015 07/11/2015 Castillo Souza MD DEXA [id number] 07/11/2015 07/11/2015 Castillo Souza MD DEXA [id number] 07/11/2015 07/11/2015 Castillo Souza MD DEXA [id number] 07/11/2015 07/11/2015 Castillo Souza MD DEXA [id number] 07/11/2015 07/11/2015 Castillo Souza MD DEXA [id number] 07/11/2015 07/11/2015 Castillo Souza MD DEXA [id number] 07/11/2015 07/11/2015 Castillo Souza MD DEXA [id number] 07/11/2015 07/11/2015 Castillo Souza MD DEXA [id number] 07/11/2015 07/11/2015 Castillo Souza [facility] Outpatient Imaging - [place] [facility] Di[facility] Services [id number] 00 Vani Shipman 08/19/2015 08/20/2015 [facility] OBS Day Surgery [id number] Dangelo Yazan 11/24/2015 11/24/2015 [facility] Martin Souza MD Lab results [id number] 02/04/20 16 02/04/2016 Castillo Souza MD Lab results [id number] 02/04/20 16 02/04/2016 Castillo Souza MD Lab results [id number] 02/04/20 16 02/04/2016 Castillo Souza MD Lab results [id number] 02/04/20 16 02/04/2016 Castillo Souza MD Lab results [id number] 02/04/20 16 02/04/2016 Castillo Souza MD Lab results [id number] 02/04/20 16 02/04/2016 Castillo Souza MD Lab results [id number] 02/04/20 16 02/04/2016 Castillo Souza MD Lab results [id number] 02/04/20 16 02/04/2016 Castillo Souza MD Update [id number] 02/09/20 16 02/09/2016 Castillo Souza MD Update [id number] 02/09/20 16 02/09/2016 Castillo Souza MD Update [id number] 02/09/20 16 02/09/2016 Castillo Souza MD Update [id number] 02/09/20 16 02/09/2016 Castillo Souza MD Update [id number] 02/09/20 16 02/09/2016 Castillo Souza MD Update [id number] 02/09/20 16 02/09/2016 Castillo Souza MD Update [id number] 02/09/20 16 02/09/2016 Castillo Souza MD Update [id number] 02/25/20 16 02/25/2016 Castillo Souza MD Update [id number] 02/25/20 16 02/25/2016 Castillo Souza MD Update [id number] 02/25/20 16 02/25/2016 Castillo Souza MD Update [id number] 02/25/20 16 02/25/2016 Castillo Souza MD Update [id number] 02/25/20 16 02/25/2016 Castillo Souza MD Update [id number] 02/25/20 16 02/25/2016 Castillo Souza [facility] Outpatient Imaging - [place] Outpt Diag Services [id number] Vanigrover Maganaton 03/03/2016 03/04/2016 [facility] [place] Martin Souza MD Unknown [id number] 03/11/20 16 03/11/2016 Castillo Souza MD Unknown [id number] 03/11/20 16 03/11/2016 Castillo Souza MD Unknown [id number] 03/11/20 16 03/11/2016 Castillo Souza MD Unknown [id number] 03/11/20 16 03/11/2016 Castillo Souza MD Unknown [id number] 03/11/20 16 03/11/2016 Castillo Souza MD Prolia [id number] 05/06/20 16 05/06/2016 Castillo Souza MD Prolia [id number] 05/06/20 16 05/06/2016 Castillo Souza MD Prolia [id number] 05/06/20 16 05/06/2016 Castillo Souza MD Prolia [id number] 05/06/20 16 05/06/2016 Castillo Souza MD 6 MTH PROLIA [id number] 09/10/19 17 09/10/2016 Castillo Souza MD Labs [id number] 09/10/2016 09/10/2016 Castillo Souza MD Labs [id number] 09/10/2016 09/10/2016 Castillo Souza MD Labs [id number] 09/10/2016 09/10/2016 Castillo Souza MD Vitamin D [id number] 09/10/19 09/10/2016 Castillo Souza MD Vitamin D [id number] 09/10/1909/10/2016 Castillo Souza MD Vitamin D [id number] 09/10/19 17 09/10/2016 Castillo Souza [facility] Day Surgery [id number] Dangelo Hand 11/04/2016 11/04/2016 [facility] Outpatient Imaging - [place] Outpt Diag Services [id number] Vanigrover Maganaton 07/16/2017 07/17/2017 [facility] [place] [facility] Outpatient Imaging - [place] Outpt Diag Services [id number] Vanigrover Maganaton 05/02/2018 05/03/2018 [facility] [place] [facility] [place] OP Therapy Patients [id number] [facility] 05/11/2018 06/10/2018 [facility] [place] [facility] [place] [facility] [id number] [facility] 06/12/2018 07/12/2018 [facility] [place] [facility] [place] [facility] [id number] [facility] 07/13/2018 08/12/2018 [facility] [place] [facility] Out[facility] - [place] Outpt Diag Services [id number] [facility] 07/17/2018 07/18/2018 [facility] [place] [facility] Out[facility] - [place] Outpt Diag Services [id number] [facility] 07/19/2019 07/20/2019 [facility] [place] Procedures Procedure Code Date Perfomer Comments Source Abdominal hysterectomy [id number] [facility]ID [place],[facility] [place], [facility] [place] Appendectomy [id number] RADHAD [place],[facility] [place], [facility] [employer] [place] Cholecystectomy [id number] BOB Hung,[facility] [place], [facility] [employer] [place] Colonoscopy [id number] BOB Hung,[facility] [place], [facility] [employer] Excision of ganglion cyst [phone] BOB CHELSEA Hung,[facility] C[facility]SEA [facility] [employer] Assessment and Plan No Data Provided for This Section Plan of Care Plan of Care Date Source Medication Use 06/14/2013 Routine 01/03/2014 [facility] Medication Use 06/14/2013 Routine 11/08/2013 [facility] Medication Use 06/14/2013 Routine 11/06/2013 [facility] Medication Use 06/14/2013 Routine 10/25/2013 [facility] Medication Use 06/14/2013 Routine[QLH] T SH, 3RD GENERATION W/REFLEX TO FT4 10/09/2013 Routine[QLH] LIPID PANEL 10/09/2013 Routine[QLH] HEMOGLOBIN A1c 10/09/2013 Routine[QLH] CMP W/EGFR 10/09/2013 Routine[QLH] CBC (INCLUDES DIFF/PLT) 10/09/2013 Routine 10/09/2013 [facility] Medication Use 06/14/2013 Routine 08/16/2013 [facility] Medication Use 06/14/2013 Routine 08/09/2013 [facility] Medication Use 06/14/2013 Routine 07/12/2013 [facility] Medication Use 06/14/2013 RoutineENT Ref erral 06/18/2013 Routine 06/18/2013 [facility] Social History Social History Date Source [...] No; Reg Smoking Cessation Counseling No 10/28/2016 [facility] Social History TypeResponse Alcohol Never Smoking [...] Smoker (Active) Never Drank Alcohol (Active) 01/03/2014 [facility] Family History Value Date S ource Maternal history of Ovarian Cancer (V16. 41); (Active) Maternal history of Hypertension (V17.49); (Active) Paternal history of Lung Cancer (V16.1); (Active) 01/03/2014 [facility] Maternal history of Ovarian Cancer (V16. 41); (Active) Maternal history of Hypertension (V17.49); (Active) Paternal history of Lung Cancer (V16.1); (Active) 11/08/2013 [facility] Maternal history of Ovarian Cancer (V16. 41); (Active) Maternal history of Hypertension (V17.49); (Active) Paternal history of Lung Cancer (V16.1); (Active) 11/06/2013 [facility] Maternal history of Ovarian Cancer (V16. 41); (Active) Maternal history of Hypertension (V17.49); (Active) Paternal history of Lung Cancer (V16.1); (Active) 10/25/2013 [facility] Maternal history of Ovarian Cancer (V16. 41); (Active) Maternal history of Hypertension (V17.49); (Active) Paternal history of Lung Cancer (V16.1); (Active) 10/09/2013 [facility] Maternal history of Ovarian Cancer (V16. 41); (Active) Maternal history of Hypertension (V17.49); (Active) Paternal history of Lung Cancer (V16.1); (Active) 08/16/2013 [facility] Maternal history of Ovarian Cancer (V16. 41); (Active) Maternal history of Hypertension (V17.49); (Active) Paternal history of Lung Cancer (V16.1); (Active) 08/09/2013 [facility] Maternal history of Ovarian Cancer (V16. 41); (Active) Maternal history of Hypertension (V17.49); (Active) Paternal history of Lung Cancer (V16.1); (Active) 07/12/2013 [facility] Maternal history of Ovarian Cancer (V16. 41); (Active) Maternal history of Hypertension (V17.49); (Active) Paternal history of Lung Cancer (V16.1); (Active) 06/18/2013 [facility] Maternal history of Ovarian Cancer (V16. 41); (Active) Maternal history of Hypertension (V17.49); (Active) Paternal history of Lung Cancer (V16.1); (Active) 06/04/2013 [facility] Maternal history of Ovarian Cancer (V16. 41); (Active) Maternal history of Hypertension (V17.49); (Active) Paternal history of Lung Cancer (V16.1); (Active) 05/29/2013 [facility] Advance Directives Order Name Results Value Date Source Advance Directives Advance Dir ectives No Advance Directives available. 01/03/2014 [facility] Advance Directives Advance Dir ectives No Advance Directives available. 11/08/2013 [facility] Advance Directives Advance Dir ectives No Advance Directives available. 11/06/2013 [facility] Advance Directives Advance Dir ectives No Advance Directives available. 10/25/2013 [facility] Advance Directives Advance Dir ectives No Advance Directives available. 10/09/2013 [facility] Advance Directives Advance Dir ectives No Advance Directives available. 08/16/2013 [facility] Advance Directives Advance Dir ectives No Advance Directives available. 08/09/2013 [facility] Advance Directives Advance Dir ectives No Advance Directives available. 07/12/2013 [facility] Advance Directives Advance Dir ectives No Advance Directives available. 06/18/2013 [facility] Advance Directives Advance Dir ectives No Advance Directives available. 06/04/2013 [facility] Advance Directives Advance Dir ectives No Advance Directives available. 05/29/2013 [facility] Functional Status No Data Provided for This Section
--- OUTSIDE RECORDS SUMMARY | 2020-01-28 13:17 | XMS REPORT ---
Author Author [facility] t Organization [facility] Address [address] [place] [address] Phone Unavailable Care Team Providers Care Electrical Prospecting Observer Name Role Phone ALONZO WADDELL, MD LUDWIG PCP Faustino FENTONICA Attphys Unavailable Mine MUNOZ Attphys Unavailable Khadar GREENE Attphys Unavailable RODNEY SHIPMAN Attphys Unavailable Tracey Shipman Attphys Khadar HATHAWAY Attphys Unavailable Jamila DAMON Attphys Unavailable Adan Hand Attphys RODNEY SHIPMAN Admphys Unavailable Khadar HATHAWAY Admphys Unavailable Payers Payer Name Policy Type Policy Number Effective Date Expiration Date S efra [employer] NA 2013 00:00:00 [facility] Problems Condition Name Condition Details Condition Category Status Onset Date Resolution Date Last Treatment Date Treating Clinician Comments Source CERVICAL CERV ICAL Active 05/11/2018 [facility] Diagnosis Active 2018-05-11 08:00:00 2018-07-13 21:49:00 [facility] UNK UNK Active 10/18/2016 [facility] Active 2016-10-18 00:00:00 2016-11-04 05:56:00 M H [facility] Z12.31 - ENCNTR SCREEN MAMMOGRAM FOR MA Z12.31 - ENCNTR SCREEN MAMMOGRAM FOR MA Active 07/30/2015 [facility] Diagnosis Active 2015-07-30 00:01:00 2015-08-19 14:20:00 M Melonie Hung 585.4 585. 4 Active 03/04/2015 [facility] Active 2015-03-04 00:00:00 2015-03-24 09:19:00 [facility] 585.2 585. 2 Active 07/30/2014 [facility] Active 2014-07-30 00:00:00 2014-10-18 13:32:00 [facility] Mechanical complication due to peritoneal dialysis cat heter Peritoneal dialysis catheter mechanical complication Problem Active [facility] Ataxia Ataxia Problem Active [facility] Transient cerebral ischemia Problem Active [facility] Peritoneal dialysis catheter dysfunction Problem Active [facility] End-stage renal disease on peritoneal dialysis Problem Active [facility] Hypothyroidism Hypo thyroidism Active 01/03/2014 [facility] Problem Active 2014-01-03 19:04:04 [facility] Essential Hypertension Esse ntial Hypertension Active [...] Problem Active 2019-12-07 03:02:17 Castillo Souza 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 Active Problem 12/07/2019 Castillo Souza Problem Ac tive 2019-12-07 03:02:17 Castillo hudson Rheumatoid arthritis of multiple sites without rheumat [...] Souza Problem Active 2019-12-07 03:02:17 Castillonuha Souza Long-term (current) use of other medications - High Ri sk Long-term (current) use of other medications - High Risk Active Problem 07/23/2015 Castillo Souza Problem Active 2015-07-23 03:59:37 Castillo Burrowser Unspecified vitamin D deficiency Unspecified vitamin D deficiency Active Problem 07/23/2015 Castillo Souza Problem Active 2015-07-23 03:59:37 Castillo Burrowser RENAL INSUFFICIENCY SP L INSUFFICIENCY Active Problem 07/23/2015 Castillo Souza Problem Active 2015-07-23 03:59:37 Castillo Souza Osteoporosis, postmenopausal O steoporosis, postmenopausal Active Problem 07/23/2015 Castillo Souza Problem Active 2015-07-23 03:59:37 Castillo Suoza Cramp of limb Cram p of limb Active Problem 07/23/2015 Castilol Souza Problem Active 2015-07-23 03:59:37 Castillo Souza [...] Castillo Souza Diagnosis Active 2016-03-16 02:55:00 Castillo Souaz Trigger finger of left hand, unspecified finger Trigger finger of left hand, unspecified finger Active Diagnosis 09/15/2019 Castillo Souza Diagnosis Active 2019-09-15 03:47:23 Ph eve Souza Gastroesophageal reflux disease (disorder) Gastroesophageal reflux disease (disorder) Active Problem 07/22/2019 CHELSEA Hnug,[facility] Arnold, [facility] [employer] Problem Active 2019-07-22 00:09:36 BOB Hung, [facility], [facility] Arnold, [facility] [employer] Anemia of chronic renal failure (disorder) Anemia of chronic renal failure (disorder) Active Problem 07/22/2019 BOB Hung,[facility] Arnold, [facility] [employer] Problem Active 2019-07-22 00:09:36 BOB Hung, [facility], [facility] Diabetes mellitus (disorder) D iabetes mellitus (disorder) Active Problem 07/22/2019 BOB Hung,[facility] Arnold, [facility] [employer] Problem Active 2019-07-22 00:09:36 BOB Hung [facility], [facility], [facility] [employer] Hearing loss (finding) Hear ing loss (finding) Active Problem 07/22/2019 [facility], [facility] Arnold, [facility] [employer] Problem Active 2019-07-22 00:09:36 [facility], [facility], [facility], [facility] [employer] Hypertensive disorder, systemic arterial (disorder) Hypertensive disorder, systemic arterial (disorder) Active Problem 07/22/2019 [facility], [facility], [facility], [facility] [employer] Problem Active 2019-07-22 00:09:36 [facility], [facility], [facility] Arnold, [facility] [employer] Hypercholesterolemia (disorder) Hypercholesterolemia (disorder) Active Problem 07/22/2019 [facility], [facility] Arnold, [facility] [employer] Problem Active 2019-07-22 00:09:36 [facility], [facility], [facility] Arnold, [facility] [employer] Hypertriglyceridemia (disorder) Hypertriglyceridemia (disorder) Active Problem 07/22/2019 [facility] Arnold, [facility] Arnold, [facility] [employer] Problem Active 2019-07-22 00:09:36 OP[facility], [facility], [facility] Arnold, [facility] [employer] Hypothyroidism (disorder) Hypo thyroidism (disorder) Active Problem 07/22/2019 [facility], [facility], [facility], [facility] [employer] Problem Active 2019-07-22 00:09:36 O PID Arnold, [facility], [facility], [facility] [employer] Renal failure syndrome (disorder) Renal failure syndrome (disorder) Active Problem 07/22/2019 [facility] Arnold, [facility] Arnold, [facility] [employer] Problem Active 2019-07-22 00:09:36 OP[facility] Arnold, [facility], [facility] Arnold, [facility] [employer] Incisional hernia of anterior abdominal wall (disorder ) Incisional hernia of anterior abdominal wall (disorder) Active Problem 07/22/2019 [facility] Arnold, [facility] Arnold, [facility] [employer] Problem Active 2019-07-22 00:09:36 OP[facility] Arnold, [facility], [facility] Arnold, [facility] [employer] Anxiety (finding) Anxi ety (finding) Active Problem 07/22/2019 RADHAD Arnold, [facility] Arnold, [facility] [employer] Problem Active 2019-07-22 00:09:36 OP[facility] Arnold, [facility], [facility] Arnold, [facility] [employer] Weakness Weak ness 01/29/2019 [facility] Arnold Problem 2019-01-29 11:39:50 [facility] [place] Abnormal posture Abno rmal posture 03/01/2019 [facility] Problem 2019-03-01 11:34:53 [facility] Arnold Encounter for screening mammogram for malignant neopla sm of breast Encounter for screening mammogram for malignant neoplasm of breast 07/22/2019 [facility] Arnold Problem 2019-07-22 00:09:36 [facility] Arnold Spondylolisthesis, cervical region Spondylolisthesis, cervical region 11/19/2018 [facility] [employer] Problem 2018-11-19 14:24:21 RADHAD [facility] Muscle weakness (generalized) Muscle weakness (generalized) 03/01/2019 [facility] Arnold Problem 2019-02 11:34:53 [facility] Arnold CHRONIC KIDNEY DISEASE, STAGE 4 (SEVERE) CHRONIC KIDNEY DISEASE, STAGE 4 (SEVERE) Active [facility] Diagnosis Active 2015-12-16 15:02:00 [facility] END STAGE RENAL DISEASE END STAGE RENAL DISEASE Active [facility] Diagnosis Active 2016-11-04 05:56:00 [facility] Cervicalgia Cerv icalgia 08/18/2018 03/01/2019 [facility] Arnold, [facility] [employer] Problem 2018-08-18 05: 46:36 2019-03-01 11:34:53 2019-03-01 11:34:53 [facility] [place], [facility] [employer] Allergies, Adverse Reactions, Alerts Allergy Name Allergy Type Status Severity Reaction(s) Onset Date Inacti ve Date Treating Clinician Comments Source Plavix Plavix Active rash 2019-07-24 00:00:00 [facility] Fosamax Fosamax Active severe muscle cramping 2019-07-24 00:00:00 [facility] Lansoprazole Allergy to substance Active Moderate ITCHING 2018-08-21 00 :00:00 [facility] No Known Drug Allergies No Known Drug Allergies Active [facility] Plavix TABS Plavix TABS Active [facility] Social History Social Habit Start Date Stop Date Quantity Comments Source Caffeine: 2016-09-10 00:00:00 2016-09-10 00:00:00 [facility] Social History 2014-01-03 19:04:04 2014-01-03 19:04:04 [facility] Sex Assigned At 1935 00:00:00 1935 00:00:00 Female [facility] Medications Ordered Medication Name Filled Medication Name Start Date Stop Da te Current Medication? Ordering Clinician Indication Dosage Frequency Signature (SIG) Comments Components Source Nubia 2019-09-15 03:47:23 Yes Tatianna Stone 1 t ablet as needed Castillo Souza Levothyroxine Sodium 2019-09-15 03:47:23 Yes Tatianna Stone 1 tablet Castillo Souza Metoprolol Tartrate 2019-09-15 03:47:23 Yes Tatianna Stone 1 tablet Castillo Souza Aspirin 2019-09-15 03:47:23 Yes Tatianna Stone 2 t ablets Castillonuha Souza Famotidine 2019-09-15 03:47:23 Yes Tatianna Stone 1 tablet as needed Castillo Souza Atorvastatin Calcium 2019-09-15 03:47:23 Yes Tatianna Stone 1 tablet Castillonuha Souza Amlodipine Besylate 2019-09-15 03:47:23 Yes Tatianna Stone 1 tablet Castillo Souza Pantoprazole Sodium 2019-09-15 03:47:23 Yes Tatianna Stone 1 tablet Castillo Souza Sensipar 2019-09-15 03:47:23 Yes Tatianna Stone 1 tablet with food or after a meal Castillo Souza Vitamin D (Ergocalciferol) 2018-11-13 00:00:00 Yes Frances Souza 1 capsule Castillo Souza Prolia 2018-10-05 00:00:00 Yes Tatianna Stone as d irected Castillo Souza [place] 3 2018-04-07 02:47:54 Yes Makeda Ozuna 1 [...] Castillo Souza Tizanidine HCl 2018-04-07 02:47:54 Yes Mkaeda Ozuna 1 tablet as needed Castillo Souza Sodium Bicarbonate 2017-10-17 03:45:34 Yes Makeda Ozuna 1 tablet Castillo Souza Prolia 2017-08-31 00:00:00 Yes Makeda Ozuna 60M G SQ Castillo Harley Prolia 2017-08-02 03:46:45 Yes Latifa Fakoya 60MG SQ Castillo Souza Vitamin D (Ergocalciferol) 2017-07-23 03:45:21 Yes Owen a Fakoya 1 capsule Castillo Souza Aspir-81 2017-07-23 03:45:21 Yes Latifa Fakoya 1 tablet Castillo Souza Calcitriol 2017-07-23 03:45:21 Yes Latifa Fakoya 1 capsule Castillo Souza Prolia 2017-06-22 00:00:00 Yes [facility] Tart[facility] 2017-04-14 02:46:16 Yes Wajeeha Ranjit 1 tablet Castillo Souza Aspir-81 2017-04-14 02:46:16 Yes Wajeeha Ranjit 1 tablet Castillo Souza Prolia 2017-04-14 02:46:16 Yes Wajeeha Ranjit 60M G SQ Castillo Souza Calcitriol 2017-04-14 02:46:16 Yes Wajeeha Ranjit 1 capsule Castillo Souza Levothyroxine Sodium 2017-04-14 02:46:16 Yes Wajeeha Ranjit [facility] Parox[facility] HCl 2017-04-14 02:46:16 Yes Wajeeha Ranjit 1 tablet in the morning Castillo Souza [place] 3 2017-04-14 02:46:16 Yes Wajeeha Ranjit 1 [...] Score 4- 6, Start date: 11/04/16 11:10:00 NOC ENGINEER [facility] labetalol (ANES) 2016-11-04 16:12:00 No Route: IV, Drug form: INJ, ONCE, Stop date: 11/04/16 10:12:00 NOC ENGINEER [facility] ePHEDrine (ANES) 2016-11-04 15:58:00 No Route: IV, Drug form: INJ, ONCE, Stop date: 11/04/16 9:58:00 NOC ENGINEER [facility] famotidine (ANES) 2016-11-04 15:58:00 No Route: IV, Drug form: INJ, ONCE, Stop date: 11/04/16 9:58:00 NOC ENGINEER [facility] ondansetron (ANES) 2016-11-04 15:58:00 No Route: IV, Drug form: INJ, ONCE, Stop date: 11/04/16 9:58:00 NOC ENGINEER [facility] fentaNYL (ANES) 2016-11-04 15:58:00 No Route: IV, Drug form: INJ, ONCE, Stop date: 11/04/16 9:58:00 NOC ENGINEER [facility] propofol (ANES) 2016-11-04 15:58:00 No Route: IV, Drug form: INJ, ONCE, Stop date: 11/04/16 9:58:00 NOC ENGINEER [facility] lidocaine (ANES) 2016-11-04 15:58:00 No Route: IV, Drug form: INJ, ONCE, Stop date: 11/04/16 9:58:00 NOC ENGINEER [facility] rocuronium ([facility]) 2016-11-04 15:58:00 No Route: IV, Drug form: INJ, ONCE, Stop date: 11/04/16 9:58:00 NOC ENGINEER [facility] neostigmine ([facility]) 2016-11-04 15:58:00 No Route: IV, Drug form: INJ, ONCE, Stop date: 11/04/16 9:58:00 NOC ENGINEER [facility] glycopyrrolate ([facility]) 2016-11-04 15:58:00 No Route: IV, Drug form: INJ, ONCE, Stop date: 11/04/16 9:58:00 NOC ENGINEER [facility] acetaminophen-codeine #3 2016-11-04 15:53:00 No 2 tab, Route: PO, Drug Form: TAB, Dosing Weight 59.545, kg, Q4H, PRN Pain Score 4-6, Start date: 11/04/16 9:53:00 NOC ENGINEER, Duration: 30 day, Stop date: 12/04/16 9:52:00 CDT [facility] Morphine 2016-11-04 15:53:00 No 2 mg, Route: IVP, Q3H, Dosing Weight 59.545, kg, PRN Pain Score 1-3, Start date: 11/04/16 9:53:00 NOC ENGINEER, Duration: 30 day, Stop date: 12/04/16 9:52:00 CDT [facility] vancomycin (ANES) (ANES) 2016-11-04 15:19:00 No Route: IV, Drug form: INJ, Start date: 11/04/16 9:19:00 NOC ENGINEER, Stop date: 11/04/16 10:19:00 NOC ENGINEER [facility] ceFAZolin ([facility]) (ANES) 2016-11-04 15:19:00 No Route: IV, Drug form: INJ, Start date: 11/04/16 9:19:00 NOC ENGINEER, Stop date: 11/04/16 10:19:00 NOC ENGINEER [facility] sodium chloride 0.9% 500 ml INJ (ANES) 2016-11-04 15:10:00 No Route: IV, Total Volume: 500, Start date: 11/04/16 9:10:00 NOC ENGINEER, Stop date: 11/04/16 10:10:00 NOC ENGINEER [facility] sodium chloride 0.9% 500 ml INJ 500 mL 2016-11-04 14:04:00 No 500 mL, Rate: 40 ml/hr, Infuse over: 12.5 hr, Route: IV, Dosing Weight 59.545 kg, Total Volume: 500, Start date: 11/04/16 8:04:00 NOC ENGINEER, Duration: 1 day, Stop date: 11/05/16 8:03:00 NOC ENGINEER [facility] Lactated Ringers 1,000 mL 2016-11-04 14:03:00 No 1,000 mL, Rate: 40 ml/hr, Infuse over: 25 hr, Route: IV, Dosing Weight 59.545 kg, Total Volume: 1,000, Start date: 11/04/16 8:03:00 NOC ENGINEER, Duration: 1 day, Stop date: 11/05/16 8:02:00 NOC ENGINEER [facility] Vitamin D3 50,000 intl units oral capsule 2016-10-28 16:01:00 Yes 50,000 IntlUnit = 1 cap, PO, qWeek, # 12 cap, 0 Refill(s) [facility] glimepiride 1 mg oral tablet 2016-10-28 16:00:00 Yes 1 mg = 1 tab, PO, Daily, 0 Refill(s) [facility] Ancef 2016-10-28 16:00:00 No Notes: Same as : [facility] Vancomycin 2016-10-28 16:00:00 No 2001 mg: infuse over 2.5 hours MEDICATION WASTE Product Size: 1000 mg Product Wasted: ___ mg [facility] Famotidine 10 MG Oral Tablet 2016-10-28 16:00:00 Yes 10 mg = 1 tab, PO, BID, 0 Refill(s) [facility] Nubia 2016-09-14 03:50:08 Yes Martin Souza 1 t ablet as needed Castillo Souza Vitamin D (Ergocalciferol) 2016-09-10 00:00:00 Yes Farshadi p Souza 1 capsule Castillo Souza Synthroid 2016-03-16 02:55:00 Yes Makeda Ozuna 1 tablet every morning on an empty stomach Castillo Burrows er Losartan Potassium 2016-03-16 02:55:00 Yes Makeda Ozuna 1 tablet Castillo Burrowser Tricor 2016-03-16 02:55:00 Yes Makeda Ozuna 1 t ablet Castillo Burrowser PredniSONE 2016-02-09 00:00:00 Yes Martin Souza 2 tablets with food or milk Castillo Souza Nexium 2016-02-09 00:00:00 Yes Martin Souza 1 ca psule Castillo Souza propofol (ANES) 2015-11-24 14:58:00 No Route: IV, Drug form: INJ, ONCE, Stop date: 11/24/15 9:58:00 [facility] lidocaine ([facility]) 2015-11-24 14:58:00 No Route: IV, Drug form: INJ, ONCE, Stop date: 11/24/15 9:58:00 [facility] fentaNYL ([facility]) 2015-11-24 14:53:00 No Route: IV, Drug form: INJ, ONCE, Stop date: 11/24/15 9:53:00 [facility] midazolam ([facility]) 2015-11-24 14:53:00 No Route: IV, Drug form: SOLN, ONCE, Stop date: 11/24/15 9:53:00 [facility] ceFAZolin ([facility]) 2015-11-24 14:53:00 No Route: IV, Drug form: INJ, ONCE, Stop date: 11/24/15 9:53:00 [facility] Oxycodone 2015-11-24 14:51:00 No Notes: (Sa me as: Roxicodone) [facility] Flumazenil 2015-11-24 14:51:00 No Notes: (S juan as: Romazicon) [facility] Meperidine 2015-11-24 14:51:00 No Notes: (S juan As: Demerol) [facility] Naloxone 2015-11-24 14:51:00 No Notes: Same as Narcan [facility] Fentanyl 2015-11-24 14:51:00 No Notes: (Same as: Sublimaze) Preservative free. [facility] Hydromorphone 2015-11-24 14:51:00 No 0.5 mg, 0.5 mL, Route: IVP, Drug form: INJ, Q5Min, Dosing Weight 57.784, kg, PRN Pain Score 7-10, Start date: 11/24/15 9:51:00, Duration: 4 doses or times, Stop date: Limited # of times [facility] Ondansetron 2015-11-24 14:51:00 No Notes: (Same as: Zofran) MEDICATION WASTE Product Size: 4 mg Product Wasted: ___ mg [facility] Hydralazine 2015-11-24 14:51:00 No Notes: (Same as: Apresoline) Push over 5 minutes [facility] ondansetron (ANES) 2015-11-24 14:43:00 No Route: IV, Drug form: INJ, ONCE, Stop date: 11/24/15 9:43:00 [facility] vancomycin (ANES) (ANES) 2015-11-24 14:11:00 No Route: IV, Drug form: INJ, Start date: 11/24/15 9:11:00, Stop date: 11/24/15 10:11:00 [facility] Sodium Chloride 0.154 MEQ/ML Injectable Solution 2015-11-24 14:0 9:00 No 500 mL, Rate: 25 ml/hr, Infu se over: 20 hr, Route: IV, Dosing Weight 57.784 kg, Total Volume: 500, Start date: 11/24/15 9:09:00, Duration: 30 day, Stop date: 12/24/15 9:08:00 [facility] Sodium Chloride 0.9% IV (ANES) (ANES) 2015-11-24 14:08:00 N o Route: IV, Total Volume: 500, Start date: 11/24/15 9:08:00, Stop date: 11/24/15 10:08:00 [facility] Calcium Chloride 0.0014 MEQ/ML / Potassi um Chloride 0.004 MEQ/ML / Sodium Chloride 0.103 MEQ/ML / Sodium Lactate 0.028 MEQ/ML Injectable Solution 2015-11-24 14:08:00 No 1,000 mL, Rate: 25 ml/hr, Infuse over: 40 hr, Route: IV, Dosing Weight 57.784 kg, Total Volume: 1,000, Start date: 11/24/15 9:08:00, Duration: 30 day, Stop date: 12/24/15 9:07:00 [facility] Vancomycin 2015-11-17 22:00:00 No 2001 mg: infuse over 2.5 hours MEDICATION WASTE Product Size: 1000 mg Product Wasted: ___ mg [facility] Ancef 2015-11-17 22:00:00 No Notes: Same as : [facility] Hydralazine 2015-03-24 18:35:00 No 10 mg, Route: IVP, Q20Min, Dosing Weight 60, kg, PRN Elevated BP, Start date: 03/24/15 13:35:00, Duration: 2 doses or times, Stop date: Limited # of times [facility] Glycopyrrolate 2015-03-24 18:35:00 No 0.2 mg, Route: IVP, Q5Min, Dosing Weight 60, kg, PRN Bradycardia, Start date: 03/24/15 13:35:00, Duration: 3 doses or times, Stop date: Limited # of times [facility] Ondansetron 2015-03-24 18:35:00 No 4 mg, Route: IVP, ONCE, Dosing Weight 60, kg, PRN Nausea & Vomiting, Start date: 03/24/15 13:35:00 [facility] Flumazenil 2015-03-24 18:35:00 No 0.2 mg, Route: IVP, PRN, Dosing Weight 60, kg, PRN Benzodiazepine Reversal, Initial dose, Start date: 03/24/15 13:35:00, Duration: 30 day, Stop date: 04/23/15 13:34:00 [facility] Meperidine 2015-03-24 18:35:00 No 12.5 mg, Route: IVP, Q30Min, Dosing Weight 60, kg, PRN Other -See Comment, For shivering, Start date: 03/24/15 13:35:00, Duration: 2 doses or times, Stop date: Limited # of times [facility] Promethazine 2015-03-24 18:35:00 No 6.25 mg, Route: IVPB, ONCE, Dosing Weight 60, kg, PRN Nausea & Vomiting, Start date: 03/24/15 13:35:00 [facility] Naloxone 2015-03-24 18:35:00 No 0.04 mg, Route: IVP, Q2MIN, Dosing Weight 60, kg, PRN Narcotic Reversal, Start date: 03/24/15 13:35:00, Duration: 8 doses or times, Stop date: Limited # of times [facility] Morphine 2015-03-24 18:35:00 No 4 mg, Route: IVP, Q5Min, Dosing Weight 60, kg, PRN Pain Score 7-10, Start date: 03/24/15 13:35:00, Duration: 3 doses or times, Stop date: Limited # of times [facility] Hydromorphone 2015-03-24 18:35:00 No 0.5 mg, Route: IVP, Q5Min, Dosing Weight 60, kg, PRN Pain Score 7-10, Start date: 03/24/15 13:35:00, Duration: 4 doses or times, Stop date: Limited # of times [facility] Diphenhydramine 2015-03-24 18:35:00 No 12.5 mg, Route: IVP, Drug form: INJ, Q6H, Dosing Weight 60, kg, PRN Itching, Start date: 03/24/15 13:35:00, Duration: 30 day, Stop date: 04/23/15 13:34:00 [facility] Fentanyl 2015-03-24 18:35:00 No 25 microgram, Route: IVP, Q5Min, Dosing Weight 60, kg, PRN Pain Score 4-6, Start date: 03/24/15 13:35:00, Duration: 4 doses or times, Stop date: Limited # of times [facility] Ketorolac 2015-03-24 18:35:00 Yes 4 days MEDICATION WASTE Product Size: 30 mg Product Wasted: ___ mg [facility] Oxycodone 2015-03-24 18:35:00 No 10 mg, Route: PO, Drug form: TAB, Q4H, Dosing Weight 60, kg, PRN Pain Score 7-10, Start date: 03/24/15 13:35:00, Duration: 30 day, Stop date: 04/23/15 13:34:00 [facility] Metoprolol 2015-03-24 18:35:00 No 1 mg, Route: IVP, Q5Min, Dosing Weight 60, kg, PRN Other -See Comment, Start date: 03/24/15 13:35:00, Duration: 5 doses or times, Stop date: Limited # of times [facility] acetaminophen-codeine #3 2015-03-24 18:01:00 No 1 tab, Route: PO, Drug Form: TAB, Dosing Weight 60, kg, Q4H, PRN Pain Score 4-6, Start date: 03/24/15 13:01:00, Duration: 30 day, Stop date: 04/23/15 13:00:00 [facility] Morphine 2015-03-24 18:01:00 No 2 mg, Route: IVP, Q3H, Dosing Weight 60, kg, PRN Pain Score 1-3, Start date: 03/24/15 13:01:00, Duration: 30 day, Stop date: 04/23/15 [facility] 16:43:00 No 2 gm, Route: IVPB, ONCE, Dosing Weight 60, kg, Start date: 03/24/15 11:43:00, Duration: 1 doses or times, Stop date: 03/24/15 11:43:00 [facility] Sodium Chloride 0.154 MEQ/ML Injectable Solution 2015-03-23 13:2 6:00 No 500 mL, Rate: 25 ml/hr, Infu se over: 20 hr, Route: IV, Dosing Weight 60 kg, Total Volume: 500, Start date: 03/23/15 8:26:00, Duration: 2 day, Stop date: 03/25/15 8:25:00 [facility] Vancomycin 2015-03-17 20:00:00 No N otes: TIME CRITICAL MEDICATION [facility] Vitamin B-12 2015-01-01 02:59:57 Yes Martin [...] 06:00:00 Yes ; Start Date: 07/12/2013 (Active) [facility] Fish Oil CAPS 2013-06-18 16:04:19 Yes (Acti ve) [facility] Integra Plus CAPS 2013-06-18 16:04:19 Yes ( Active) [facility] Allergy TABS 2013-06-04 15:02:02 Yes (Activ e) [facility] Losartan Potassium 25 MG Oral Tablet 2013-06-04 05:00:00 Ye s ; Start Date: 06/04/2013 (Active) [facility] Losartan Potassium 25 MG Oral Tablet 2013-05-29 15:32:01 Ye s (Active) [facility] Amlodipine Besylate Amlodipine Besylate Yes 5 Daily [facility] Aspirin (Aspir 81) 81 Mg TABLET. Aspirin (Aspir 81) 81 Mg TABLET. Yes 81 Bedtime [facility] Atorvastatin Calcium Atorvastatin Calcium Yes 20 Bedtime [facility] Cinacalcet Hcl (Sensipar) 30 Mg TABLET Cinacalcet Hcl (Sensipar) 30 Mg TABLET Yes 30 Daily [facility] Fexofenadine Hcl ([place] Allergy) 180 Mg TABLET Fexof enadine Hcl (Nubia Allergy) 180 Mg TABLET Yes 180 As Needed as ne eded for Allergy [facility] Levothyroxine Sodium (Levothroid) 75 Mcg TABLET Levoth yroxine Sodium (Levothroid) 75 Mcg TABLET Yes 75 Daily [facility] Metoprolol Succinate Metoprolol Succinate Yes 50 Bedtime [facility] Pantoprazole Sodium (Protonix) 40 Mg TABLET. Pantopr azole Sodium (Protonix) 40 Mg TABLET. Yes 40 Daily [facility] Sevelamer Carbonate (Renvela) 0.8 Gm POWD.PACK Sevelam er Carbonate (Renvela) 0.8 Gm POWD.PACK Yes [facility] Terazosin Hcl Terazosin Hcl Yes 2 Bedtime [facility] Amoxicillin/Potassium Clav (Augmentin 500-125 Tablet) 1 Each TABLET Amoxicillin/Potassium Clav (Augmentin 500-125 Tablet) 1 Each TABLET 2019-09-23 00:00:00 No 500 Daily [facility] Calcitriol Calcitriol 2018-11-12 00:00:00 No .25 Fouzia ly [facility] Paroxetine Hcl Paroxetine Hcl 2018-11-12 00:00:00 No 10 Daily [facility] Denosumab (Prolia) 60 Mg/1 Ml DISP.SYRIN Denosumab (Pr michelle) 60 Mg/1 Ml DISP.SYRIN 2018-05-22 00:00:00 No 60 As Needed [facility] Cyanocobalamin (Cyanocobalamin Injection) 1,000 Mcg/Ml SOLN Cyanocobalamin (Cyanocobalamin Injection) 1,000 Mcg/Ml SOLN 2018-03-28 00:00:00 No 1000 Monthly [facility] Docusate Sodium (Stool Softener) 100 Mg CAPSULE Docusa te Sodium (Stool Softener) 100 Mg CAPSULE 2018-03-28 00:00:00 No 2 Bedtime [facility] Fenofibrate (Tricor) 48 Mg TAB Fenofibrate (Tricor) 48 Mg TAB 2018-03-28 00:00:00 No 48 Bedtime [facility] Gabapentin Gabapentin 2018-03-28 00:00:00 No 100 Bed time [facility] Glimepiride (Amaryl) 1 Mg TABLET Glimepiride (Amaryl) 1 Mg TABLE T 2018-03-28 00:00:00 No 1 Daily [facility] Iron Fum & P/Fa/Vit B & C No.9 (Integra Plus Capsule) 1 Each CAPSULE Iron Fum & P/Fa/Vit B & C No.9 (Integra Plus Capsule) 1 Each CAPSULE 20 15-03-31 00:00:00 No 1 Bedtime [facility] Losartan Potassium Losartan Potassium 2018-03-28 00:00:00 No 25 Daily [facility] Omeprazole Omeprazole 2018-03-28 00:00:00 No 40 Fouzia ly [facility] Sennosides/Docusate Sodium (Stool Softener Tablet) 1 E ach TABLET Sennosides/Docusate Sodium (Stool Softener Tablet) 1 Each TABLET 2018-03-28 00:00:00 No [facility] Sparkle Villagran 2017-06-15 00:00:00 No 4 Twic e A Day as needed for Nausea [facility] [place]-3 Fatty Acids/Fish Oil (Fish Oil 1,000 Mg Capsul e) 1 Each CAPSULE [place]-3 Fatty Acids/Fish Oil (Fish Oil 1,000 Mg Capsule) 1 Each CAPSULE 2014-03-31 00:00:00 No 2000 Daily [facility] Aspirin (Adult Aspirin) 81 Mg TAB.CHEW Aspirin (Adult Aspirin) 8 1 Mg TAB.CHEW 2013-05-13 00:00:00 No Daily [facility] Atorvastatin Calcium (Lipitor) 10 Mg TABLET Atorvastat in Calcium (Lipitor) 10 Mg TABLET 2013-05-13 00:00:00 No Qhs [facility] Fenofibrate Nanocrystallized (Tricor) 48 Mg TABLET Fen ofibrate Nanocrystallized (Tricor) 48 Mg TABLET 2013-05-13 00:00:00 No Qh s [facility] Fish Oil/Fat No.8/Hrb Comb.137 ([place] 3-6-9 1,200 Mg S oftgel) 1,200 Mg CAPSULE Fish Oil/Fat No.8/Hrb Comb.137 ([place] 3-6-9 1,200 Mg Softgel) 1,200 Mg CAPSULE 2013-05-13 00:00:00 No Daily [facility] Glimepiride (Amaryl) 1 Mg TABLET Glimepiride (Amaryl) 1 Mg TABLE T 2013-05-13 00:00:00 No Daily [facility] Isradipine (Dynacirc Cr) 5 Mg TAB.ER.24 Isradipine (Dynacirc Cr) 5 Mg TAB.ER.24 2013-05-13 00:00:00 No Daily [facility] Levothyroxine Sodium (Synthroid) 75 Mcg TABLET Levothy roxine Sodium (Synthroid) 75 Mcg TABLET 2013-05-13 00:00:00 No Qhs [facility] Metoprolol Succinate (Toprol Xl) 50 Mg TAB.SR.24H Meto prolol Succinate (Toprol Xl) 50 Mg TAB.SR.24H 2013-05-13 00:00:00 No Fouzia ly [facility] Omeprazole (Prilosec) 20 Mg CAPSULE. Omeprazole (Prilosec) 20 Mg CAPSULE. 2013-05-13 00:00:00 No Daily [facility] Vital Signs Vital Name Observation Time Observation Value Comments Source Body Temperature 2020-01-27 15:02:00 98.0 [degF] [facility] Weight 2020-01-27 11:15:00 113 [lb_av] [facility] BMI (Body Mass Index) 2020-01-27 11:15:00 19.4 kg/m2 [facility] Weight 2019-07-24 19:00:00 Castillo Souza Height 2019-07-24 [...] Souza Systolic (mm Hg) 2018-04-04 16:00:00 Farshad ang Souza Weight 2017-10-12 15:15:00 Castillo Souza Height [...] Systolic (mm Hg) 2017-09-22 16:30:00 Farshad lip Osuza Weight 2017-08-01 16:00:00 Castillo Souza Height 2017-08-01 [...] [facility] Heart Rate 2016-11-04 14:08:00 [facility] Temperature Oral (F) 2016-10-28 15:29:00 97.5 F [facility] Heart Rate 2016-10-28 15:29:00 [facility] Height 2016-10-28 15:22:00 162.56 cm [facility] Weight 2016-10-28 15:22:00 [facility] BMI Calculated 2016-10-28 15:22:00 MH [facility] [...] outheast Diastolic (mm Hg) 2015-11-24 17:15:[address] [facility] Systolic (mm Hg) 2015-11-24 17:00:00 [facility] Diastolic (mm Hg) 2015-11-24 17:00:00 [facility] Rate 2015-11-24 15:45:00 [facility] Respitory Rate 2015-11-24 15:30:00 [facility] Respitory Rate 2015-11-24 15:15:00 [facility] Temperature Oral (F) 2015-11-17 21:53:00 97.9 F [facility] Heart Rate 2015-11-17 21:53:00 [facility] BMI Calculated 2015-11-17 21:30:00 [facility] Weight 2015-11-17 21:30:00 [facility] Height 2015-11-17 21:30:00 162.56 cm [facility] Systolic (mm Hg) 2015-03-24 20:15:00 [facility] Diastolic (mm Hg) 2015-03-24 20:15:00 [facility] Systolic (mm Hg) 2015-03-24 20:00:00 [facility] Diastolic (mm Hg) 2015-03-24 20:00:00 [facility] Systolic (mm Hg) 2015-03-24 19:45:00 [facility] Diastolic (mm Hg) 2015-03-24 19:45:00 [facility] Resp[facility] Rate 2015-03-24 19:00:00 [facility] Respitory Rate 2015-03-24 18:45:00 [facility] Respitory Rate 2015-03-24 18:30:00 [facility] Heart Rate 2015-03-17 20:07:00 [facility] Temperature Oral (F) 2015-03-17 20:07:00 98.4 F [facility] Height 2015-03-17 19:18:00 162.56 cm [facility] BMI Calculated 2015-03-17 19:18:00 [facility] Weight 2015-03-17 19:18:00 [facility] Weight 2014-12-12 15:00:00 Castillo Souza Height [...] Procedure Date / Time Performed Performing Clinician [facility] e Computed tomography of brain without radiopaque contrast 2019-12 00:00:00 [facility] Computed tomography of brain without radiopaque contrast 202 00:00:00 LOY SO [facility] Computed tomography of brain without radiopaque contrast 202 00:00:00 LOY SO [facility] Magnetic resonance imaging of brain without contrast 2019-08 00:00:00 ERICKA GREENE [facility] Abdominal hysterectomy OPID [place], [facility], [facility] [place], [facility] [place] Appendectomy OPID [place] , [facility], [facility], [facility] [place] Cholecystectomy [facility] , [facility], [facility] [place], [facility] [place] Colonoscopy OPID [place] , [facility], [facility] [place], [facility] Excision of ganglion cyst OPI D [place], [facility], [facility] [place], OPID [place] Plan of Care Planned Activity Planned Date Details Comments Source Future Scheduled Test Plan of Care [code = 91472-5] [facility] Future Scheduled Test Plan of Care [code = 78723-2] [facility] Future Scheduled Test Plan of Care [code = 70865-5] [facility] Future Scheduled Test Plan of Care [code = 43668-3] [facility] Future Scheduled Test Plan of Care [code = 58612-1] [facility] Future Scheduled Test Plan of Care [code = 61806-1] [facility] Future Scheduled Test Plan of Care [code = 30635-8] [facility] Future Scheduled Test Plan of Care [code = 39888-5] [facility] Future Scheduled Test Plan of Care [code = 99718-6] [facility] Instructions [facility] Encounters Start Date/Time End Date/Time Encounter Type Admission Type Attendi [facility] Care Department Encounter ID Source 2020-01-27 10:59:00 2020-01-27 15:07:00 Departed Emergency Room 1 VADIM MUNOZ [facility] [id number] [facility] 2019-10-05 09:03:00 2019-10-05 13:37:00 Departed Emergency [facility] [id number] [facility] Patients [facility] 2019-09-24 09:14:00 2019-09-24 11:30:00 Departed Emergency Room [facility] [id number] [facility] 2019-09-22 13:23:00 2019-09-23 13:53:00 Discharged Inpatient (obs) 1 [facility] [id number] [facility] 2019-09-10 15:41:00 2019-09-10 15:41:00 Outpatient Martin Souza MD PA Martin Souza MD PA [id number] Castillo Souza MD 2019-07-24 13:00:00 2019-07-24 13:00:00 Outpatient Martin Souza MD [place] [id number] Castillo Souza MD 2019-07-19 21:10:00 2019-07-20 05:59:00 Outpt Diag Services [facility] - [place] [id number] MH OPID [place] 2019-07-19 15:10:00 2019-07-19 23:59:00 Outpatient Melonie Shipman HOIP [facility] [id number] 2019-07-19 15:50:00 2019-07-19 15:50:00 Outpatient MD OMID De Jesus MD [place] [id number] Castillo Souza MD 2019-07-19 11:02:00 2019-07-19 11:02:00 Outpatient MD OMID De Jesus MD PA [id number] Castillo Souza MD 2019-07-17 13:57:00 2019-07-17 13:57:00 Outpatient MD OMID De Jesus MD PA [id number] Castillo Souza MD 2019-07-13 15:04:00 2019-07-13 15:04:00 Outpatient MD OMID De Jesus MD PA [id number] CHELSEA Souza MD 2019-06-27 10:41:00 2019-06-27 10:41:00 Outpatient MD OMID De Jesus MD PA [id number] CHELSEA Souza MD 2019-06-11 14:36:00 2019-06-11 14:36:00 Outpatient MD OMID De Jesus MD PA [id number] Castillo Souza MD 2018-11-12 17:35:00 2018-11-16 10:59:00 Discharged Inpatient 1 SHIPMANRODNEY DURAN [facility] [id number] [facility] 2018-11-13 15:57:00 2018-11-13 15:57:00 Outpatient Martin ANNE [id number] Castillo Souza MD 2018-10-25 10:54:00 2018-10-25 10:54:00 Outpatient Martin Souza MD PA [id number] Castillo Souza MD 2018-08-28 09:56:00 2018-09-01 10:31:00 Discharged Inpatient 1 RODNEY SHIPMAN [facility] [id number] [facility] 2018-07-13 17:30:00 2018-08-12 05:59:00 OP Therapy Patients MHIEALT [facility] [id number] [facility] 2018-07-13 11:30:00 2018-08-11 23:59:00 Outpatient Rodney Shipman [id number] 2018-07-17 21:30:00 2018-07-18 05:59:00 Outpt Diag Services [facility] - [place] [id number] MH OPID [place] 2018-07-17 15:30:00 2018-07-17 23:59:00 Outpatient Melonie Shipman MHHOIP M[facility]OIP [id number] 2018-06-12 18:00:00 2018-07-12 05:59:00 OP Therapy Patients MHIEALT [facility] [place] [id number] [facility] 2018-06-12 13:00:00 2018-07-11 23:59:00 Outpatient Rodney Shipman [id number] 2018-05-11 19:16:00 2018-06-10 04:59:00 OP Therapy Patients MHIEALT [facility] [place] [id number] [facility] 2018-05-11 14:16:00 2018 23:59:00 Outpatient Rodney Shipman [id number] 2018 12:41:00 2018 12:41:00 Outpatient Martin ANNE [id number] Castlilo Souza MD 2018-05-19 12:17:00 2018-05-22 13:43:00 Discharged Inpatient (obs) 1 CHRISTEL HATHAWAY [facility] [id number] [facility] 2018-05-16 09:48:00 2018-05-18 11:14:00 Discharged Inpatient 1 CHRISTEL HATHAWAY [facility] [id number] [facility] 2018-05-02 18:53:00 2018-05-03 04:59:00 Outpt Diag Services [facility]IEALT [facility] Outpatient [facility] [id number] OPID [place] 2018-05-02 13:53:00 2018-05-02 23:59:00 Outpatient Melonie Shipman MHOIB MHOIB [id number] 2018-04-12 09:19:00 2018-04-12 09:19:00 Outpatient Martin Souza MD PA [id number] Castillo Souza MD 2018-04-04 11:00:00 2018-04-04 11:00:00 Outpatient Martin Souza MD PA [id number] Castillo Souza MD 2018-03-28 20:30:00 2018-03-31 13:56:00 Discharged Inpatient (obs) [facility] [id number] [facility] 2018-02-28 09:58:00 2018-02-28 09:58:00 Outpatient Martin Souza MD PA [id number] Castillo Souza MD 2017-10-12 09:15:00 2017-10-12 09:15:00 Outpatient Martin Souza MD PA [id number] Castillo Souza MD 2017-09-22 11:33:00 2017-09-22 11:33:00 Outpatient Martin Souza MD PA [id number] Castillo Souza MD 2017-09-22 10:30:00 2017-09-22 10:30:00 Outpatient Martin Souza MD PA [id number] Castillo Souza MD 2017-08-30 13:51:00 2017-08-30 13:51:00 Outpatient Martin Souza MD PA [id number] Castillo Souza MD 2017-08-01 10:00:00 2017-08-01 10:00:00 Outpatient Martin Souza MD PA [id number] Castillo Souza MD 2017-07-22 12:45:00 2017-07-22 15:00:00 Departed Emergency Room [facility] [id number] [facility] 2017-07-16 21:24:00 2017-07-17 05:59:00 Outpt Diag Services MHIEALT [facility] Out[facility] - [place] [id number] MH OPID [place] 2017-07-16 15:24:00 2017-07-16 23:59:00 Outpatient Melonie Shipamn HOIP HOIP [id number] 2017-07-07 17:32:00 2017-07-07 17:32:00 Outpatient Martin Souza MD PA [id number] Castillo Souza MD 2017-07-07 16:00:00 2017-07-07 16:00:00 Outpatient Martin Souza MD PA [id number] CHELSEA Souza MD 2017-07-03 12:40:00 2017-07-03 16:25:00 Departed Emergency Room ER PATRICK DAMON [facility] [id number] [facility] 2017-06-22 15:33:00 2017-06-22 15:33:00 Outpatient Martin Souza MD PA [id number] Castillo Souza MD 2017-06-13 14:53:00 2017-06-15 12:32:00 Discharged Inpatient (obs) RODNEY POLO [facility] [id number] [facility] 2017-04-05 11:30:00 2017-04-05 11:30:00 Outpatient Matrin Souza MD PA [id number] Castillo Souza MD 2017-03-07 11:57:00 2017-03-07 11:57:00 Outpatient Martin Souza MD PA [id number] Castillo Souza MD 2016-12-20 10:55:00 2016-12-20 10:55:00 Outpatient Martin Souza MD PA [id number] Castillo Souza MD 2016-11-04 11:56:00 2016-11-04 18:15:00 Day Surgery IEALT [facility] [id number] [facility] 2016-11-04 05:56:00 2016-11-04 12:15:00 Outpatient Dangelo Hand [facility] [id number] 2016-09-10 17:39:00 2016-09-10 17:39:00 Vitamin D JADENT Martin Souza MD [id number] Castillo Souza 2016-09-10 17:39:00 2016-09-10 17:39:00 Vitamin D RUTH Souza MD [id number] Castillo Souza 2016-09-10 17:39:00 2016-09-10 17:39:00 Vitamin D RUTH Souza MD [id number] Castillo Souza 2016-09-10 17:26:00 2016-09-10 17:26:00 Labs RUTH Souza MD [id number] Castillo Souza 2016-09-10 17:26:00 2016-09-10 17:26:00 Labs RUTH Souza MD [id number] Castillo Souza 2016-09-10 17:26:00 2016-09-10 17:26:00 Labs RUTH Souza MD [id number] Castillo Souza 2016-09-10 16:30:00 2016-09-10 16:30:00 6 MTH PROLIA RUTH Souza MD [id number] Castillo Souza 2016-09-10 11:39:00 2016-09-10 11:39:00 Outpatient MD Martin De Jesus MD [id number] Castillo Souza MD 2016-09-10 11:26:00 2016-09-10 11:26:00 Outpatient MD Martin De Jesus MD [id number] Castillo Souza MD 2016-09-10 10:30:00 2016-09-10 10:30:00 Outpatient MD Martin De Jesus MD [id number] Castillo Souza MD 2016-05-06 20:34:00 2016-05-06 20:34:00 Prolia RUTH Souza MD [id number] Castillo Souza 2016-05-06 20:34:00 2016-05-06 20:34:00 Prolia RUTH Souza MD [id number] Castillo Souza 2016-05-06 20:34:00 2016-05-06 20:34:00 Prolia RUTH Souza MD [id number] Castillo Souza 2016-05-06 19:34:00 2016-05-06 19:34:00 Prolia CHELSEAIEALT Martin Souza MD [id number] Castillo Souza 2016-05-06 14:34:00 2016-05-06 14:34:00 Outpatient MD Martin De Jesus MD [id number] Castillo Souza MD 2016-03-11 16:45:00 2016-03-11 16:45:00 Unknown MHIEALT Martin Souza MD [id number] Castillo Souza 2016-03-11 16:45:00 2016-03-11 16:45:00 Unknown JUNEALT Martin Souza MD [id number] Castillo Souza 2016-03-11 16:45:00 2016-03-11 16:45:00 Unknown MHIEALT Martin Souza MD [id number] Castillo Souza 2016-03-11 15:45:00 2016-03-11 15:45:00 Unknown MHIEALT Martin Souza MD [id number] Castillo Souza 2016-03-11 15:45:00 2016-03-11 15:45:00 Unknown MHIEALT Martin Souza MD [id number] Castillo Souza 2016-03-11 10:45:00 2016-03-11 10:45:00 Outpatient MD Martin De Jesus MD [id number] Castillo Souza MD 2016-03-03 20:18:00 2016-03-04 04:59:00 Outpt Diag Services MHIEALT [facility] Outpatient [facility] [place] [id number] [facility] [place] 2016-03-03 15:18:00 2016-03-03 23:59:00 Outpatient ShipmanMelonie MHOIB MHOIB [id number] 2016-02-25 18:39:00 2016-02-25 18:39:00 Update RUTH Souza MD [id number] Castillo Souza 2016-02-25 18:39:00 2016-02-25 18:39:00 Update RUTH Souza MD [id number] Castillo Souza 2016-02-25 18:39:00 2016-02-25 18:39:00 Update RUTH Souza MD [id number] Castillo Souza 2016-02-25 17:39:00 2016-02-25 17:39:00 Update RUTH Souza MD [id number] Castillo Souza 2016-02-25 17:39:00 2016-02-25 17:39:00 Update RUTH Souza MD [id number] Castillo Souza 2016-02-25 17:39:00 2016-02-25 17:39:00 Update RUTH Souza MD [id number] Castillo Souza 2016-02-25 12:39:00 2016-02-25 12:39:00 Outpatient MD Martin De Jesus MD [id number] Castillo Souza MD 2016-02-09 18:54:00 2016-02-09 18:54:00 Update RUTH Souza MD [id number] Castillo Souza 2016-02-09 18:54:00 2016-02-09 18:54:00 Update RUTH Souza MD [id number] Castillo Souza 2016-02-09 18:54:00 2016-02-09 18:54:00 Update RUTH Souza MD [id number] Castillo Souza 2016-02-09 17:54:00 2016-02-09 17:54:00 Update RUTH Souza MD [id number] Castillo Souza 2016-02-09 17:54:00 2016-02-09 17:54:00 Update RUTH Souza MD [id number] Castillo Souza 2016-02-09 17:54:00 2016-02-09 17:54:00 Update RUTH Souza MD [id number] Castillo Souza 2016-02-09 17:54:00 2016-02-09 17:54:00 Update RUTH Souza MD [id number] Castillo Souza 2016-02-09 12:54:00 2016-02-09 12:54:00 Outpatient MD Martin De Jesus MD [id number] Castillo Souza MD 2016-02-04 20:38:00 2016-02-04 20:38:00 Lab results RUTH Souza MD [id number] Castillo Souza 2016-02-04 20:38:00 2016-02-04 20:38:00 Lab results RUTH Souza MD [id number] Castillo Souza 2016-02-04 20:38:00 2016-02-04 20:38:00 Lab results RUTH Souza MD [id number] Castillo Souza 2016-02-04 19:38:00 2016-02-04 19:38:00 Lab results RUTH Souza MD [id number] Castillo Souza 2016-02-04 19:38:00 2016-02-04 19:38:00 Lab results RUTH Souza MD [id number] Castillo Souza 2016-02-04 19:38:00 2016-02-04 19:38:00 Lab results RUTH Souza MD [id number] Castillo Souza 2016-02-04 19:38:00 2016-02-04 19:38:00 Lab results RUTH Souza MD [id number] Castillo Souza 2016-02-04 19:38:00 2016-02-04 19:38:00 Lab results RUTH Souza MD [id number] Castillo Souza 2016-02-04 14:38:00 2016-02-04 14:38:00 Outpatient MD Martin De Jesus MD [id number] Castillo Souza MD 2015-11-24 10:16:00 2015-11-24 17:30:00 OBS Day Surgery IEALT [facility] [id number] [facility] 2015-11-24 05:16:00 2015-11-24 12:30:00 Outpatient Dangelo Hand [facility] [id number] 2015-08-19 20:11:00 2015-08-20 05:59:00 Outpt Diag Services MHIEALT [facility] Outpatient Imaging - [place] [id number] MH OPID [facility] 2015-08-19 14:11:00 2015-08-19 23:59:00 Outpatient Melonie Shipman Tracey MHHOIP M[facility]IP [id number] 2015-07-11 01:02:00 2015-07-11 01:02:00 DEXA RUTH Souza MD [id number] Castillo Souza 2015-07-11 01:02:00 2015-07-11 01:02:00 DEXA RUTH Souza MD [id number] Castillo Souza 2015-07-11 01:02:00 2015-07-11 01:02:00 DEXA RUTH Souza MD [id number] Castillo Souza 2015-07-11 01:02:00 2015-07-11 01:02:00 CECILLE Souza MD [id number] Castillo Souza 2015-07-11 00:02:00 2015-07-11 00:02:00 CECILLE Souza MD [id number] Casitllo Souza 2015-07-11 00:02:00 2015-07-11 00:02:00 CECILLE Souza MD [id number] Castillo Souza 2015-07-11 00:02:00 2015-07-11 00:02:00 CECILLE Souza MD [id number] [facility] Souza 2015-07-11 00:02:00 2015-07-11 00:02:00 DOMENICOA RUTH Souza MD [id number] [facility] Souza 2015-07-11 00:02:00 2015-07-11 00:02:00 CECILLE Souza MD [id number] Castillon[facility] Souza 2015-07-10 19:02:00 2015-07-10 19:02:[address] [facility] MD Martin De Jesus MD [id number] Castillo Souza MD 2015-06-17 21:30:00 2015-06-17 21:30:00 paris Souza MD [id number] [facility] Souza 2015-06-17 21:30:00 2015-06-17 21:30:00 paris Souza MD [id number] [facility] Souza 2015-06-17 21:30:00 2015-06-17 21:30:00 paris Souza MD [id number] [facility] Souza 2015-06-17 21:30:00 2015-06-17 21:30:00 paris Souza MD [id number] [facility] Souza 2015-06-17 20:30:00 2015-06-17 20:30:00 paris Souza MD [id number] [facility] Souza 2015-06-17 20:30:00 2015-06-17 20:30:00 paris Souza MD [id number] aCstillo Souza 2015-06-17 20:30:00 2015-06-17 20:30:00 paris Souza MD [id number] [facility] Souza 2015-06-17 20:30:00 2015-06-17 20:30:00 paris Souza MD [id number] [facility] Sou[facility] 2015-06-17 20:30:00 2015-06-17 20:30:00 paris Souza MD [id number] [facility] Souza 2015-06-13 16:00:00 2015-06-13 16:00:00 6m fu RUTH Souza MD [id number] [facility] Souza 2015-06-13 16:00:00 2015-06-13 16:00:00 6m fu RUTH Souza MD [id number] [facility] Souza 2015-06-13 16:00:00 2015-06-13 16:00:00 6m fu RUTH Sozua MD [id number] [facility] Souza 2015-06-13 16:00:00 2015-06-13 16:00:00 6m fu RUTH Souza MD [id number] [facility] Souza 2015-06-13 15:00:00 2015-06-13 15:00:00 6m fu RUTH Souza MD [id number] [facility] Sou[facility] 2015-06-13 15:00:00 2015-06-13 15:00:00 6m fu RUTH Souza MD [id number] Castillo Souza 2015-06-13 15:00:00 2015-06-13 15:00:00 6m fu RUTH Souza MD [id number] Cast[facility] Souza 2015-06-13 15:00:00 2015-06-13 15:00:00 6m fu RUTH Souza MD [id number] [facility] Souza 2015-06-13 15:00:00 2015-06-13 15:00:00 6m fu RUTH Souza MD [id number] Castillo Souza 2015-03-24 14:18:00 2015-03-24 20:40:00 OBS Day Surgery [facility] [id number] [facility] 2015-03-24 09:18:00 2015-03-24 15:40:00 Outpatient Yazan Dangelo Adan [facility] [id number] 2015-01-23 16:15:00 2015-01-23 16:15:00 Appointment RUTH Souza MD [id number] [facility] 2015-01-23 16:15:00 2015-01-23 16:15:00 Appointment RUTH Souza MD [id number] Cast[facility] Souza 2015-01-23 16:15:00 2015-01-23 16:15:00 Appointment RUTH Souza MD [id number] [facility] Souza 2015-01-23 16:15:00 2015-01-23 16:15:00 Appointment RUTH Souza MD [id number] [facility] Sou[facility] 2015-01-23 15:15:00 2015-01-23 15:15:00 Appointment RUTH Souza MD [id number] [facility] Souza 2015-01-23 15:15:00 2015-01-23 15:15:00 Appointment RUTH Souza MD [id number] Cast[facility] Souza 2015-01-23 15:15:00 2015-01-23 15:15:00 Appointment RUTH Souaz MD [id number] Cast[facility] Souza 2015-01-23 15:15:00 2015-01-23 15:15:00 Appointment RUTH Souza MD [id number] Castillo Souza 2015-01-23 15:15:00 2015-01-23 15:15:00 Appointment RUTH Souza MD [id number] Castillo Souza 2014-12-31 16:43:00 2014-12-31 16:43:00 Prolia RUTH Souza MD [id number] Cast[facility] Souza 2014-12-31 16:43:00 2014-12-31 16:43:00 Prolia RUTH Souza MD [id number] Cast[facility] Souza 2014-12-31 16:43:00 2014-12-31 16:43:00 Prolia RUTH Souza MD [id number] Cast[facility] Souza 2014-12-31 16:43:00 2014-12-31 16:43:00 Prolia RUTH Souza MD [id number] [facility] Souza 2014-12-31 15:43:00 2014-12-31 15:43:00 Prolia RUTH Souza MD [id number] [facility] 2014-12-31 15:43:00 2014-12-31 15:43:00 Taoia RUTH Souza MD [id number] [facility] Souza 2014-12-31 15:43:00 2014-12-31 15:43:00 Prolia RUTH Souza MD [id number] [facility] Souza 2014-12-31 15:43:00 2014-12-31 15:43:00 Prolia RUTH Souza MD [id number] [facility] Souza 2014-12-31 15:43:00 2014-12-31 15:43:00 Prolia RUTH Souza MD [id number] [facility] Souza 2014-12-31 15:43:00 2014-12-31 15:43:00 Taoia RUTH Souza MD [id number] [facility] Souza 2014-12-31 15:43:00 2014-12-31 15:43:00 Prolia MHDAVIE Souza MD [id number] Cast[facility] Souza 2014-12-31 10:43:00 2014-12-31 10:43:[address] [facility] MD Martin De Jesus MD [id number] Castillo Souza MD 2014-12-20 20:20:00 2014-12-20 20:20:00 Prolia RUTH Souza MD [id number] Castillo Suoza 2014-12-20 20:20:00 2014-12-20 20:20:00 Prolia RUTH Souza MD [id number] Cast[facility] Souza 2014-12-20 20:20:00 2014-12-20 20:20:00 Prolia RUTH Souza MD [id number] [facility] Souza 2014-12-20 20:20:00 2014-12-20 20:20:00 Prolia RUTH Souza MD [id number] [facility] Souza 2014-12-20 19:20:00 2014-12-20 19:20:00 Prolia RUTH Souza MD [id number] [facility] Souza 2014-12-20 19:20:00 2014-12-20 19:20:00 Prolia RUTH Souza MD [id number] [facility] Souza 2014-12-20 19:20:00 2014-12-20 19:20:00 Prolia RUTH Souza MD [id number] [facility] Souza 2014-12-20 19:20:00 2014-12-20 19:20:00 Prolia RUTH Souza MD [id number] [facility] Sou[facility] 2014-12-20 19:20:00 2014-12-20 19:20:00 Prolia RUTH Souza MD [id number] [facility] 2014-12-20 19:20:00 2014-12-20 19:20:00 Prolia RUTH Souza MD [id number] [facility] 2014-12-20 19:20:00 2014-12-20 19:20:00 Prolia RUTH Souza MD [id number] [facility] 2014-12-18 16:40:00 2014-12-18 16:40:00 MRI RUTH Souza MD [id number] [facility] Souza 2014-12-18 16:40:00 2014-12-18 16:40:00 MRI RUTH Souza MD [id number] [facility] 2014-12-18 16:40:00 2014-12-18 16:40:00 MRI RUTH Souza MD [id number] [facility] 2014-12-18 16:40:00 2014-12-18 16:40:00 MRI RUTH Souza MD [id number] [facility] 2014-12-18 15:40:00 2014-12-18 15:40:00 MRI RUTH Souza MD [id number] [facility] Souza 2014-12-18 15:40:00 2014-12-18 15:40:00 MRI RUTH Souza MD [id number] [facility] 2014-12-18 15:40:00 2014-12-18 15:40:00 MRI RUTH Souza MD [id number] [facility] Souza 2014-12-18 15:40:00 2014-12-18 15:40:00 MRI RUTH Souza MD [id number] [facility] 2014-12-18 15:40:00 2014-12-18 15:40:00 MRI URTH Souza MD [id number] [facility] 2014-12-18 15:40:00 2014-12-18 15:40:00 MRI RUTH Souza MD [id number] Cast[facility] Souza 2014-12-18 15:40:00 2014-12-18 15:40:00 MRI RUTH Souza MD [id number] Cast[facility] Souza 2014-12-12 16:00:00 2014-12-12 16:00:00 6m fu RUTH Souza MD [id number] Cats[facility] Souza 2014-12-12 16:00:00 2014-12-12 16:00:00 6m fu RUTH Souza MD [id number] [facility] Souza 2014-12-12 16:00:00 2014-12-12 16:00:00 6m fu RUTH Souza MD [id number] [facility] Souza 2014-12-12 16:00:00 2014-12-12 16:00:00 6m fu RUTH Souza MD [id number] [facility] Souza 2014-12-12 15:00:00 2014-12-12 15:00:00 6m fu RUTH Souza MD [id number] [facility] Souza 2014-12-12 15:00:00 2014-12-12 15:00:00 6m fu RUTH Souza MD [id number] [facility] Souza 2014-12-12 15:00:00 2014-12-12 15:00:00 6m fu RUTH Souza MD [id number] [facility] Souza 2014-12-12 15:00:00 2014-12-12 15:00:00 6m fu RUTH Souza MD [id number] [facility] Souza 2014-12-12 15:00:00 2014-12-12 15:00:00 6m fu RUTH Souza MD [id number] [facility] Souza 2014-12-12 15:00:00 2014-12-12 15:00:00 6m fu RUTH Souza MD [id number] Cast[facility] Souza 2014-12-12 15:00:00 2014-12-12 15:00:00 fu MHIEALT Martin Souza MD [id number] Castillo Souza 2014-12-12 10:00:00 2014-12-12 10:00:[address] [facility] MD Martin De Jesus MD [id number] Castillo Souza MD 2014-12-06 15:30:00 2014-12-06 15:30:00 [facility] Martin Souza MD [id number] Castillo Souza 2014-12-06 15:30:00 2014-12-06 15:30:00 [facility] Martin Souza MD [id number] Cast[facility] Souza 2014-12-06 15:30:00 2014-12-06 15:30:00 [facility] Martin Souza MD [id number] Castillo Souza 2014-12-06 15:30:00 2014-12-06 15:30:00 [facility] Martin Souza MD [id number] [facility] Souza 2014-12-06 14:30:00 2014-12-06 14:30:00 [facility] Martin Souza MD [id number] Cast[facility] Souza 2014-12-06 14:30:00 2014-12-06 14:30:00 [facility] Martin Souza MD [id number] [facility] Souza 2014-12-06 14:30:00 2014-12-06 14:30:00 [facility] Martin Burrowser, MD [id number] [facility] 2014-12-06 14:30:00 2014-12-06 14:30:00 [facility] MARYT Martin Souza MD [id number] Castillo Souza 2014-12-06 14:30:00 2014-12-06 14:30:00 [facility] MARYT Martin Souza MD [id number] [facility] Souza 2014-12-06 14:30:00 2014-12-06 14:30:00 [facility] RUTH Souza MD [id number] [facility] Souza 2014-12-06 14:30:00 2014-12-06 14:30:00 [facility] RUTH Souza MD [id number] Cast[facility] Souza 2014-06-13 15:15:00 2014-06-13 15:15:00 6m fu RUTH Souza MD [id number] [facility] Souza 2014-06-13 15:15:00 2014-06-13 15:15:00 6m fu RUTH Souza MD [id number] Cast[facility] Souza 2014-06-13 15:15:00 2014-06-13 15:15:00 6m fu RUTH Souza MD [id number] [facility] Souza 2014-06-13 15:15:00 2014-06-13 15:15:00 6m fu RUTH Souza MD [id number] Cast[facility] Souza 2014-06-13 15:15:00 2014-06-13 15:15:00 6m fu RUTH Souza MD [id number] [facility] Souza 2014-06-13 14:15:00 2014-06-13 14:15:00 6m fu RUTH Souza MD [id number] Cast[facility] Souza 2014-06-13 14:15:00 2014-06-13 14:15:00 6m fu RUTH Souza MD [id number] Cast[facility] Souza 2014-06-13 14:15:00 2014-06-13 14:15:00 6m fu RUTH Souza MD [id number] Cast[facility] Souza 2014-06-13 14:15:00 2014-06-13 14:15:00 6m fu RUTH Souza MD [id number] Cast[facility] Souza 2014-06-13 14:15:00 2014-06-13 14:15:00 6m fu RUTH Souza MD [id number] Cast[facility] Souza 2014-06-13 14:15:00 2014-06-13 14:15:00 6m fu RUTH Souza MD [id number] [facility] Souza 2014-06-13 14:15:00 2014-06-13 14:15:00 6m fu RUTH Souza MD [id number] [facility]za 2014-06-13 09:15:00 2014-06-13 09:15:00 Outpatient MD Martin De Jesus MD [id number] Castillo Souza MD 2014-05-01 14:00:00 2014-01-03 19:04:04 FUP, Provider: RODNEY WHEAT, Status: Pen, Time: 2:00 PM [facility] [id number] [facility] 2014-01-03 14:04:05 2014-01-03 19:04:04 AUDIT MHIEALT MHIEALT [id number] [facility] 2014-01-03 14:04:05 2014-01-03 14:04:04 Outpatient MHIEA LT MHIEALT [id number] 2013-12-12 16:30:00 2013-12-12 16:30:00 6m fu MHIEALT Martin Souza MD [id number] [facility] 2013-12-12 16:30:00 2013-12-12 16:30:00 6m fu MHIEALT Martin Souza MD [id number] Cast[facility] Souza 2013-12-12 16:30:00 2013-12-12 16:30:00 6m fu MHIEALT Martin Souza MD [id number] Cast[facility] Souza 2013-12-12 16:30:00 2013-12-12 16:30:00 6m fu MHIEALT Martin Souza MD [id number] [facility] 2013-12-12 16:30:00 2013-12-12 16:30:00 6m fu MHIEALT Martin Souza MD [id number] Cast[facility] Souza 2013-12-12 15:30:00 2013-12-12 15:30:00 6m fu MHDAVIE Souza MD [id number] [facility]za 2013-12-12 15:30:00 2013-12-12 15:30:00 6m fu RUTH Souza MD [id number] [facility]za 2013-12-12 15:30:00 2013-12-12 15:30:00 6m fu DAVIE Souza MD [id number] [facility] 2013-12-12 15:30:00 2013-12-12 15:30:00 6m fu RUTH Souza MD [id number] [facility] 2013-12-12 15:30:00 2013-12-12 15:30:00 6m fu RUTH Souza MD [id number] [facility] 2013-12-12 15:30:00 2013-12-12 15:30:00 6m fu RUTH Souza MD [id number] [facility]za 2013-12-12 15:30:00 2013-12-12 15:30:00 6m fu RUTH Souza MD [id number] [facility]za 2013-12-12 15:30:00 2013-12-12 15:30:00 6m fu RUTH Souza MD [id number] [facility] 2013-12-12 10:30:00 2013-12-12 10:30:[address] [facility] MD Martin De Jesus MD [id number] Castillo Souza MD 2014-01-03 12:45:00 2013-11-08 13:32:05 FUP, Provider: RODNEY WHEAT, Status: Pen, Time: 12:45 PM MHIEALT MHIEALT [id number] [facility] 2013-11-08 08:32:06 2013-11-08 13:32:05 AUDIT MHIEALT [facility]ALT [id number] [facility] 2013-11-08 08:32:06 2013-11-08 08:32:05 Outpatient MHIEA LT MHIEALT [id number] 2013-11-06 15:34:17 2013-11-06 20:34:17 AUDIT [facility]IEALT [facility]ALT [id number] [facility] 2013-11-06 15:34:17 2013-11-06 15:34:17 Outpatient MHIEA LT [facility]ALT [id number] 2013-11-06 14:15:00 2013-10-25 15:32:03 FUP, Provider: RODNEY WHEAT, Status: Ryan, Time: 2:15 PM MHIEALT MHIEALT [id number] [facility] sicians 2013-10-25 09:32:03 2013-10-25 15:32:03 AUDIT MHIEALT [facility]ALT [id number] [facility] 2013-10-25 09:32:03 2013-10-25 09:32:03 Outpatient MHIEA LT MHIEALT [id number] 2013-10-09 14:37:29 2013-10-09 20:37:28 AUDIT MHIEALT [facility]ALT [id number] [facility] 2013-10-09 14:37:29 2013-10-09 14:37:28 Outpatient MHIEA LT MHIEALT [id number] 2013-10-09 14:15:00 2013-08-16 15:31:37 FUP, Provider: RODNEY WHEAT, Status: Pen, Time: 2:15 PM MHIEALT MHIEALT [id number] [facility] 2013-09-05 14:15:00 2013-08-16 15:31:37 FUP, Provider: RODNEY WHEAT, Status: Pen, Time: 2:15 PM [facility] [id number] [facility] 2013-08-16 09:31:38 2013-08-16 15:31:37 AUDIT MHIEALT MH[facility]ALT [id number] [facility] 2013-08-16 09:31:38 2013-08-16 09:31:37 Outpatient MHIEA LT MHIEALT [id number] 2013-08-09 14:33:17 2013-08-09 20:33:17 AUDIT MHIEALT MH[facility]ALT [id number] [facility] 2013-08-09 14:33:17 2013-08-09 14:33:17 Outpatient MHIEA LT MHIEALT [id number] 2013-08-09 12:15:00 2013-07-12 19:01:33 FUP, Provider: RODNEY WHEAT, Status: Ryan, Time: 12:15 PM [facility] [id number] [facility] 2013-07-12 13:01:33 2013-07-12 19:01:33 AUDIT MHIEALT MH[facility]ALT [id number] [facility] 2013-07-12 13:01:33 2013-07-12 13:01:33 Outpatient MHIEA LT MHIEALT [id number] 2013-06-18 11:04:20 2013-06-18 16:04:19 AUDIT MHIEALT [facility]ALT [id number] [facility] 2013-06-18 11:04:20 2013-06-18 11:04:19 Outpatient MHIEA LT MHIEALT [id number] 2013-06-07 11:45:00 2013-06-04 15:02:02 FUP, Provider: RODNEY WHEAT, Status: Pen, Time: 11:45 AM MHIE[facility]ALT [id number] [facility] 2013-06-04 10:02:03 2013-06-04 15:02:02 AUDIT MHIEALT MH[facility]ALT [id number] [facility] 2013-06-04 10:02:03 2013-06-04 10:02:02 Outpatient MHIEA LT MHIEALT [id number] 2013-05-29 10:32:01 2013-05-29 15:32:01 AUDIT MHIEALT [facility]ALT [id number] [facility] 2013-05-29 10:32:01 2013-05-29 10:32:01 [id number] Results Test Description Test Time Test Comments Results Result Comments Source CHEST SINGLE (PORTABLE) 2020-01-28 12:34:00 [facility] [address] [address] Patient Name: MIGUEL FONTENOT MR #: [id number] : 1935 Age/Sex: 84/F Req #: [id number] Adm Physician: Ordered by: AVA FENTON DO Report #: [id number] Location: ER Room/Bed: Procedure: [id number] DX/CHEST SINGLE (PORTABLE) Exam Date: 01/28/20 Exam Time: 1200 REPORT STATUS: Signed EXAM: CHEST SINGLE (PORTABLE) DATE: 01/28/2020 12:00 PM INDICATION: CVA COMPARISON: None FINDINGS: The trachea is midline. The lungs are symmetrically expanded without evidence for large focal consolidation, pneumothorax, or significant pleural effusion. The cardiomediastinal silhouette and pulmonary vasculature are within normal limits. Atherosclerotic calcifications calcifications are noted within the thoracic aorta. No acute osseous abnormality is identified. The surrounding soft tissues are unremarkable. IMPRESSION: No acute cardiopulmonary process identified. Signed by: Dr. Neno Villalobos MD on 01/28/2020 12:35 PM Dictated By: NENO VILLALOBOS MD 1235 Transcribed By: YAQUELIN on 01/28/20 1235 COPY TO: AVA FENTON DO CT BRAIN WO 2020-01-28 12:31:00 [facility] [address] [place] [address] Patient Name: MIGUEL FONTENOT MR #: [id number] : 1935 Age/Sex: 84/F Req #: [id number] Adm Physician: Ordered by: AVA FENTON DO Report #: [id number] Location: Room/Bed: Procedure: CT/CT BRAIN WO Exam Date: 01/28/20 Exam Time: 1200 REPORT STATUS: Signed History:Hand numbness Comparison studies:CT head 01/27/[address] head 10/05/2019 Technique: Axial images were obtained [...] Mild compensatory dilatation. No hydrocephalus. Parenchyma: Scattered subtle hypodensities in the supratentorial white matter are small vessel ischemic changes. Small hypodensity at the left frontal deep white matter with volume loss, stable. Small cortical hypodensity at the left mid frontal gyrus with associated volume loss, stable. No masses, hemorrhage or acute cortical vascular insults. Sellar/suprasellar region: No abnormalities. Craniocervical junction: Patent foramen magnum. No Chiari one malformation. Incidental findings: Atherosclerotic calcifications in the carotid siphons . Impression: No acute abnormalities. Chronic findings: 1. Mild generalized volume loss. 2. Mild supratentorial white matter small vessel ischemic changes. 3. 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 Signed by: DR Severiano Weeks M.D. on 01/28/2020 12:42 PM Dictated By: SEVERIANO WEEKS MD 1242 Transcribed By: YAQUELIN on 01/28/20 1242 COPY TO: AVA FENTON DO CHEST SINGLE (PORTABLE) 2020-01-27 13:39:[address] [address] Patient Name: MIGUEL FONTENOT MR #: [id number] : 1935 Age/Sex: 84/F Req #: [id number] Adm Physician: Ordered by: VADIM MUNOZ Report #: [id number] Location: ER Room/Bed: Procedure: [id number] DX/CHEST SINGLE (PORTABLE) Exam Date: 01/27/20 Exam [...] VADIM MUNOZ CT BRAIN WO 2020-01-27 13:34:00 [facility] [address] [address] Patient Name: MIGUEL FONTENOT MR #: [id number] : 1935 Age/Sex: 84/F Req #: [id number] Adm Physician: Ordered by: VADIM MUNOZ Report #: [id number] Location: ER Room/Bed: Procedure: [id number] CT/CT BRAIN WO Exam Date: 01/27/20 Exam [...] Level (test code = 2951-2) 141 136-145 [facility] potassium [facility] (moles/volume)2020-01-27 12:30:00* Test Item Value Reference Range Interpretation Comments Potassium Level (test code = 2823-3) 4.3 3.5-5.1 [facility] plasma chloride measurement (moles/volume)2020-01-27 12:30:00* Test Item Value Reference Range Interpretation Comments Chloride Level (test code = 2075-0) 110 98-107 [facility] or plasma carbon dioxide, total measurement (moles/volume)2020-01-27 12:30:00* Test Item Value Reference Range Interpretation Comments Carbon Dioxide Level (test code = 2028-9) 19 22-29 [facility] or plasma anion gtx2864-81-22 12:30:00* Test Item Value Reference Range Interpretation Comments Anion Gap (test code = 61781-3) 16.3 8-16 [facility] or plasma urea nitrogen measurement (mass/volume)2020-01-27 12:30:00* Test Item Value Reference Range Interpretation Comments Blood Urea Nitrogen (test code = 3094-0) 34 7-26 [facility] or plasma creatinine measurement (mass/volume)2020-01-27 12:30:00* Test Item Value Reference Range Interpretation Comments Creatinine (test code = 2160-0) 7.08 0.57-1.11 [facility] or plasma urea nitrogen/creatinine mass pthbb0588-45-94 12:30:00* Test Item Value Reference Range Interpretation Comments BUN/Creatinine Ratio (test code = 3097-3) 5 6-25 [facility] CenterEstimated glomerular filtration rate (GFR) [id number] 12:30:00* Test Item Value Reference Range Interpretation Comments Estimat Glomerular Filtration Rate (test code = 028571626) 6 >60 Ranges were taken from the National Kidney Disease Education Program and the [facility] Kid[facility] Foundation literature.Reference ranges:60 or greater: Ktsaph63-05 ( for 3 consecutive months): Chronic kidney disease 15 or less: Kidney failureWoodland Heights Medical CenterGlucose [id number] 12:30:00* Test Item Value Reference Range Interpretation Comments Glucose Level (test code = EKY9108) 108 74-118 [facility] or plasma calcium measurement (mass/volume)2020-01-27 12:30:00* Test Item Value Reference Range Interpretation Comments Calcium Level (test code = 74641-5) 10.9 8.4-10.2 [facility] plasma magnesium measurement (mass/volume)2020-01-27 12:30:00* Test Item Value Reference Range Interpretation Comments Magnesium Level (test code = 28095-2) 1.9 1.3-2.1 [facility] plasma total bilirubin measurement (mass/volume)2020-01-27 12:30:00* Test Item Value Reference Range Interpretation Comments Total Bilirubin (test code = 1975-2) 0.3 0.2-1.2 [facility] CenterFluoroscopic procedure less than one hour [id number] 12:30:00* Test Item Value Reference Range Interpretation Comments Aspartate Amino Transf (AST/SGOT) (test code = Aspartate Amino Transf (AST/SGOT)) 14 5-34 [facility] or plasma alanine aminotransferase measurement (enzymatic activity/volume)2020-01-27 12:30:00* Test Item Value Reference Range Interpretation Comments Alanine Aminotransferase (ALT/SGPT) (test code = 1742-6) 15 0-55 [facility] or plasma protein measurement (mass/volume)2020-01-27 12:30:00* Test Item Value Reference Range Interpretation Comments Total Protein (test code = 2885-2) 6.7 6.5-8.1 [facility] or [facility] albumin measurement (mass/volume)2020-01-27 12:30:00* Test Item Value Reference Range Interpretation Comments Albumin (test code = 1751-7) 2.8 3.5-5.0 [facility] CenterPlasma globulin measurement (mass/volume) 2020-01-27 12:30:00* Test Item Value Reference Range Interpretation Comments Globulin (test code = 76957-2) 3.9 2.3-3.5 [facility] or [facility] albumin/globulin mass [id number] 12:30:00* Test Item Value Reference Range Interpretation Comments Albumin/Globulin Ratio (test code = 1759-0) 0.7 0.8-2.0 [facility] or [facility] alkaline phosphatase measurement (enzymatic activity/volume)2020-01-27 12:30:00* Test Item Value Reference Range Interpretation Comments Alkaline Phosphatase (test code = 6768-6) 95 40-150 [facility] or plasma creatine kinase measurement (enzymatic activity/volume)2020-01-27 12:30:00* Test Item Value Reference Range Interpretation Comments Creatine Kinase (test code = 2157-6) 36 29-168 [facility] or plasma creatine kinase MB measurement (mass/volume)2020-01-27 12:30:00* Test Item Value Reference Range Interpretation Comments Creatine Kinase MB (test code = 00564-8) 1.30 0-5.0 [facility] CenterTroponin I measurement by highly sensitive enzyme [id number] 12:30:00* Test Item Value Reference Range Interpretation Comments Troponin I (test code = 84997-6) 0.496 0-0.300 [facility] CenterBlood leukocytes automated count (number/volume)2020-01-27 11:55:00* Test Item Value Reference Range Interpretation Comments White Blood Count (test code = 6690-2) 5.35 4.8-10.8 [facility] CenterBlood erythrocytes automated count (number/volume)2020-01-27 11:55:00* Test Item Value Reference Range Interpretation Comments Red Blood Count (test code = 789-8) 5.52 3.6-5.1 [facility] CenterBlood hemoglobin measurement (moles/volume)2020-01-27 11:55:00* Test Item Value Reference Range Interpretation Comments Hemoglobin (test code = 00567-9) 16.5 12.0-16.0 [facility] CenterAutomated blood hematocrit (volume fraction)2020-01-27 11:55:00* Test Item Value Reference Range Interpretation Comments Hematocrit (test code = 4544-3) 53.1 34.2-44.1 [facility] CenterAutomated erythrocyte mean corpuscular [id number] 11:55:00* Test Item Value Reference Range Interpretation Comments Mean Corpuscular Volume (test code = 787-2) 96.2 81-99 [facility] CenterAutomated erythrocyte mean corpuscular hemoglobin (mass per erythrocyte)2020-01-27 11:55:00* Test Item Value Reference Range Interpretation Comments Mean Corpuscular Hemoglobin (test code = 785-6) 29.9 28-32 [facility] CenterAutomated erythrocyte mean corpuscular hemoglobin concentration measurement (mass/volume)2020-01-27 11:55:00* Test Item Value Reference Range Interpretation Comments Mean Corpuscular Hemoglobin Concent (test code = 786-4) 31.1 31-35 [facility] CenterRDW FuiAq-Wxu4696-69-31 11:55:00* Test Item Value Reference Range Interpretation Comments Red Cell Distribution Width (test code = 05896-4) 13.7 11.7 -14.4 [facility] CenterAutomated blood platelet count (count/volume)2020-01-27 11:55:00* Test Item Value Reference Range Interpretation Comments Platelet Count (test code = 777-3) 87 140-360 NO CLOTThis test has been rerun and double checked for accuracy.[facility] CenterAutomated blood segmented neutrophil count as percentage of total kxjklevywo2128-98-53 11:55:00* Test Item Value Reference Range Interpretation Comments Neutrophils (%) (Auto) (test code = 59829-2) 69.1 38.7-80.0 [facility] CenterAutomated blood lymphocyte count as percentage ot total gopfkmvzcg0756-49-56 11:55:00* Test Item Value Reference Range Interpretation Comments Lymphocytes (%) (Auto) (test code = 736-9) 14.4 18.0-39.1 [facility] CenterAutomated blood monocyte count as percentage of total rxgubsbvjf9660-32-55 11:55:00* Test Item Value Reference Range Interpretation Comments Monocytes (%) (Auto) (test code = 5905-5) 11.2 4.4-11.3 [facility] CenterAutomated blood eosinophil count as percentage of total ahtzahntoa8911-18-41 11:55:00* Test Item Value Reference Range Interpretation Comments Eosinophils (%) (Auto) (test code = 713-8) 4.5 0.0-6.0 [facility] CenterAutomated blood basophil count as percentage of total obxoyjzzrn5504-95-20 11:55:00* Test Item Value Reference Range Interpretation Comments Basophils (%) (Auto) (test code = 706-2) 0.6 0.0-1.0 [facility] CenterFluoroscopic procedure less than one hour ypnbwavg9682-60-05 11:55:00* Test Item Value Reference Range Interpretation Comments IM GRANULOCYTES % (test code = IM GRANULOCYTES %) 0.2 0.0- 1.0 [facility] CenterAutomated blood neutrophil count 2020-01-27 11:55:00* Test Item Value Reference Range Interpretation Comments Neutrophils # (Auto) (test code = 751-8) 3.7 2.1-6.9 [facility] CenterBlood lymphocytes count (number/volume) 2020-01-27 11:55:00* Test Item Value Reference Range Interpretation Comments Lymphocytes # (Auto) (test code = 44572-1) 0.8 1.0-3.2 [facility] CenterBlood monocytes automated count (number/volume)2020-01-27 11:55:00* Test Item Value Reference Range Interpretation Comments Monocytes # (Auto) (test code = 742-7) 0.6 0.2-0.8 [facility] CenterAutomated blood eosinophil count 2020-01-27 11:55:00* Test Item Value Reference Range Interpretation Comments Eosinophils # (Auto) (test code = 711-2) 0.2 0.0-0.4 [facility] CenterAutomated blood basophil count (count/volume)2020-01-27 11:55:00* Test Item Value Reference Range Interpretation Comments Basophils # (Auto) (test code = 704-7) 0.0 0.0-0.1 [facility] CenterFluoroscopic procedure less than one hour oylqleqp6433-26-84 11:55:00* Test Item Value Reference Range Interpretation Comments Absolute Immature Granulocyte (auto (karo t code = Absolute Immature Granulocyte (auto) 0.01 0-0.1 [facility] CenterB-Type Natriuretic Gtyulhk1719-30-32 12:05:00* Test Item Value Reference Range Interpretation Comments B-Type Natriuretic Peptide (test code = 97160-4) 199.4 0-100 H [facility] CenterCreatine Kinase MH3334-14-73 12:04:00* Test Item Value Reference Range Interpretation Comments Creatine Kinase MB (test code = 26062-5) 1.10 0-5.0 [facility] CenterTroponin N6500-98-53 12:04:00* Test Item Value Reference Range Interpretation Comments Troponin I (test code = CPI2708) 0.021 0-0.300 [facility] Tnked4513-55-48 11:58:00* Test Item Value Reference Range Interpretation Comments Sodium Level (test code = 2951-2) 142 136-145 [facility] CenterPotassium Lpqmr8011-14-25 11:58:00* Test Item Value Reference Range Interpretation Comments Potassium Level (test code = 2823-3) 3.9 3.5-5.1 [facility] CenterChloride Dtfsr0128-77-55 11:58:00* Test Item Value Reference Range Interpretation Comments Chloride Level (test code = 2075-0) 105 98-107 [facility] CenterCarbon Dioxide Fxgzj2375-84-06 11:58:00* Test Item Value Reference Range Interpretation Comments Carbon Dioxide Level (test code = 2028-9) 23 22-29 [facility] CenterAnion Xod6748-90-98 11:58:00* Test Item Value Reference Range Interpretation Comments Anion Gap (test code = 34666-5) 17.9 8-16 H [facility] CenterBlood Urea Hjovgeyu2923-48-79 11:58:00* Test Item Value Reference Range Interpretation Comments Blood Urea Nitrogen (test code = 3094-0) 37 7-26 H [facility] CenterCreatinine2020-02-07 11:58:00* Test Item Value Reference Range Interpretation Comments Creatinine (test code = 2160-0) 6.64 0.57-1.11 H [facility] CenterBUN/Creatinine Cwtbc0420-75-99 11:58:00* Test Item Value Reference Range Interpretation Comments BUN/Creatinine Ratio (test code = 3097-3) 6 6-25 [facility] CenterEstimat Glomerular Filtration Rate 2019-10-05 11:58:00* Test Item Value Reference Range Interpretation Comments Estimat Glomerular Filtration Rate (test code = 905282676) 6 >60 L Ranges were taken from the National Kidney Disease Education Program and the [facility] Kidney Foundation literature.Reference ranges:60 or greater: Ubpykg33-41 ( for 3 consecutive months): Chronic kidney disease 15 or less: Kidney failureWoodland Heights Medical CenterGlucose Aiiki8697-69-76 11:58:00* Test Item Value Reference Range Interpretation Comments Glucose Level (test code = CBJ3637) 117 74-118 [facility] CenterCalcium Tbvsd7622-80-95 11:58:00* Test Item Value Reference Range Interpretation Comments Calcium Level (test code = 70946-7) 9.5 8.4-10.2 [facility] CenterTotal Yflfojher6501-99-64 11:58:00* Test Item Value Reference Range Interpretation Comments Total Bilirubin (test code = 1975-2) 0.5 0.2-1.2 [facility] CenterAspartate Amino Transf (AST/SGOT) 2019-10-05 11:58:00* Test Item Value Reference Range Interpretation Comments Aspartate Amino Transf (AST/SGOT) (test code = Aspartate Amino Transf (AST/SGOT)) 15 5-34 [facility] CenterAlanine Aminotransferase (ALT/SGPT) 2019-10-05 11:58:00* Test Item Value Reference Range Interpretation Comments Alanine Aminotransferase (ALT/SGPT) (test code = 1742-6) 10 0-55 [facility] Hqiakru9462-33-60 11:58:00* Test Item Value Reference Range Interpretation Comments Total Protein (test code = 2885-2) 7.0 6.5-8.1 [facility] CenterAlbumin2020-02-07 11:58:00* Test Item Value Reference Range Interpretation Comments Albumin (test code = 1751-7) 3.3 3.5-5.0 L [facility] CenterGlobulin2020-02-07 11:58:00* Test Item Value Reference Range Interpretation Comments Globulin (test code = 36837-3) 3.7 2.3-3.5 H [facility] CenterAlbumin/Globulin Igegx3586-54-43 11:58:00 * Test Item Value Reference Range Interpretation Comments Albumin/Globulin Ratio (test code = 1759-0) 0.9 0.8-2.0 [facility] CenterAlkaline Fbxbbaviqgr9711-68-12 11:58:00* Test Item Value Reference Range Interpretation Comments Alkaline Phosphatase (test code = 6768-6) 108 40-150 [facility] CenterCreatine Vqyrcj6510-64-26 11:58:00* Test Item Value Reference Range Interpretation Comments Creatine Kinase (test code = 2157-6) 33 29-168 [facility] CenterProthrombin Rcjn2835-62-22 11:50:00* Test Item Value Reference Range Interpretation Comments Prothrombin Time (test code = 5902-2) 14.2 11.9-14.5 [facility] CenterProthromb Time International Ratio 2019-10-05 11:50:00* Test Item Value Reference Range Interpretation Comments Prothromb Time International Ratio (test code = 6301-6) 1.04 Oral Anticoagulant Therapy INR Values:1. Low Intensity Therapy 1.5 - 2.02 . Moderate Intensity Therapy 2.0 - 3.03. High Intensity Therapy(1) 2.5 - 3. 54. High Intensity Therapy(2) 3.0 - 4.05. Panic Value INR > 5.0 [facility] CenterActivated Partial Thromboplast Time 2019-10-05 11:50:00* Test Item Value Reference Range Interpretation Comments Activated Partial Thromboplast Time (test code = 21103-5) 31.2 23.8-35.5 [facility] CenterWhite Blood Vttjn8738-04-03 11:38:00* Test Item Value Reference Range Interpretation Comments White Blood Count (test code = 6690-2) 7.09 4.8-10.8 [facility] CenterRed Blood Eezqw9380-58-52 11:38:00* Test Item Value Reference Range Interpretation Comments Red Blood Count (test code = 789-8) 4.87 3.6-5.1 [facility] CenterHemoglobin2020-02-07 11:38:00* Test Item Value Reference Range Interpretation Comments Hemoglobin (test code = 32052-3) 14.1 12.0-16.0 [facility] CenterHematocrit2020-02-07 11:38:00* Test Item Value Reference Range Interpretation Comments Hematocrit (test code = 4544-3) 43.8 34.2-44.1 [facility] CenterMean Corpuscular Slbbet9919-01-73 11:38:00* Test Item Value Reference Range Interpretation Comments Mean Corpuscular Volume (test code = 787-2) 89.9 81-99 [facility] CenterMean Corpuscular Npsbwpdvuj7588-52-47 11:38:00* Test Item Value Reference Range Interpretation Comments Mean Corpuscular Hemoglobin (test code = 785-6) 29.0 28-32 [facility] CenterMean Corpuscular Hemoglobin Concent 2019-10-05 11:38:00* Test Item Value Reference Range Interpretation Comments Mean Corpuscular Hemoglobin Concent (test code = 786-4) 32.2 31-35 [facility] CenterRed Cell Distribution Urosa8254-86-88 11:38:00* Test Item Value Reference Range Interpretation Comments Red Cell Distribution Width (test code = 25632-7) 13.6 11.7 -14.4 [facility] CenterPlatelet Easdh6619-76-09 11:38:00* Test Item Value Reference Range Interpretation Comments Platelet Count (test code = 777-3) 112 140-360 L [facility] CenterNeutrophils (%) (Auto)2019-10-05 11:38:00 * Test Item Value Reference Range Interpretation Comments Neutrophils (%) (Auto) (test code = 74201-6) 73.5 38.7-80.0 [facility] CenterLymphocytes (%) (Auto)2019-10-05 11:38:00 * Test Item Value Reference Range Interpretation Comments Lymphocytes (%) (Auto) (test code = 736-9) 15.8 18.0-39.1 L [facility] CenterMonocytes (%) (Auto)2019-10-05 11:38:00* Test Item Value Reference Range Interpretation Comments Monocytes (%) (Auto) (test code = 5905-5) 7.9 4.4-11.3 [facility] CenterEosinophils (%) (Auto)2019-10-05 11:38:00 * Test Item Value Reference Range Interpretation Comments Eosinophils (%) (Auto) (test code = 713-8) 1.8 0.0-6.0 [facility] CenterBasophils (%) (Auto)2019-10-05 11:38:00* Test Item Value Reference Range Interpretation Comments Basophils (%) (Auto) (test code = 706-2) 0.6 0.0-1.0 [facility] CenterIM GRANULOCYTES %2019-10-05 11:38:00* Test Item Value Reference Range Interpretation Comments IM GRANULOCYTES % (test code = IM GRANULOCYTES %) 0.4 0.0- 1.0 [facility] CenterNeutrophils # (Auto)2019-10-05 11:38:00* Test Item Value Reference Range Interpretation Comments Neutrophils # (Auto) (test code = 751-8) 5.2 2.1-6.9 [facility] CenterLymphocytes # (Auto)2019-10-05 11:38:00* Test Item Value Reference Range Interpretation Comments Lymphocytes # (Auto) (test code = 06990-0) 1.1 1.0-3.2 [facility] CenterMonocytes # (Auto)2019-10-05 11:38:00* Test Item Value Reference Range Interpretation Comments Monocytes # (Auto) (test code = 742-7) 0.6 0.2-0.8 [facility] CenterEosinophils # (Auto)2019-10-05 11:38:00* Test Item Value Reference Range Interpretation Comments Eosinophils # (Auto) (test code = 711-2) 0.1 0.0-0.4 [facility] CenterBasophils # (Auto)2019-10-05 11:38:00* Test Item Value Reference Range Interpretation Comments Basophils # (Auto) (test code = 704-7) 0.0 0.0-0.1 [facility] CenterAbsolute Immature Granulocyte (auto 2019-10-05 11:38:00* Test Item Value Reference Range Interpretation Comments Absolute Immature Granulocyte (auto (karo t code = Absolute Immature Granulocyte (auto) 0.03 0-0.1 [facility] CenterCHEST SINGLE (PORTABLE)2019-10-05 10:58:00 [place] [address] Patient Name: MIGUEL FONTENOT MR #: [id number] : 1935 Age/Sex: 84/F Req #: [id number] Adm Physician: Ordered by: LOY SO [employer]TER Report #: [id number] Location: ER Room/Bed: Procedure: 0207-0 034 DX/CHEST SINGLE (PORTABLE) Exam Date: 10/05/19 E xam Time: 1025 REPORT STATUS: Velia d Chest, 1 view, 10/05/2019. History: Slurred speech, [...] YAQUELIN on 10/05/191057 COPY TO: LOY SO [employer] SE[employer]TER CT BRAIN WT1065-69-22 10:55:00 [place] [address] Patient Name: MIGUEL FONTENOT MR #: [id number] : 07/1935 Age/Sex: 84/F Req #: [id number] Adm Physician: Ordered by: LOY SO [employer]TER Report #: [id number] Location: ER Room/Bed: Procedure: 0207-[address]/CT [...] (PT) in platelet poor plasma by coagulation nybzw1787-49-04 09:48:00* Test Item Value Reference Range Interpretation Comments Prothrombin Time (test code = 5902-2) 14.2 11.9-14.5 [facility] CenterINR in Platelet poor plasma by Coagulation hsokm5376-13-41 09:48:00* Test Item Value Reference Range Interpretation Comments Prothromb Time International Ratio (test code = 6301-6) 1.04 Oral Anticoagulant Therapy INR Values:1. Low Intensity Therapy 1.5 - 2.02 . Moderate Intensity Therapy 2.0 - 3.03. High Intensity Therapy(1) 2.5 - 3. 54. High Intensity Therapy(2) 3.0 - 4.05. Panic Value INR > 5.0 [facility] CenterActivated partial thromboplastin time (aPTT) in platelet poor plasma by coagulation gxksi3447-92-76 09:48:00* Test Item Value Reference Range Interpretation Comments Activated Partial Thromboplast Time (test code = 02327-9) 31.2 23.8-35.5 [facility] CenterBNP Vlk-oJom9671-75-07 09:48:00* Test Item Value Reference Range Interpretation Comments B-Type Natriuretic Peptide (test code = 52096-8) 199.4 0-100 [facility] Mkgfv5211-85-61 07:12:00* Test Item Value Reference Range Interpretation Comments Sodium Level (test code = 2951-2) 138 136-145 [facility] CenterPotassium Avyin4568-33-39 07:12:00* Test Item Value Reference Range Interpretation Comments Potassium Level (test code = 2823-3) 3.6 3.5-5.1 [facility] CenterChloride Ijhnt2874-89-86 07:12:00* Test Item Value Reference Range Interpretation Comments Chloride Level (test code = 2075-0) 105 98-107 [facility] CenterCarbon Dioxide Swjim3878-76-54 07:12:00* Test Item Value Reference Range Interpretation Comments Carbon Dioxide Level (test code = 2028-9) 21 22-29 L [facility] CenterAnion Pyv5776-68-40 07:12:00* Test Item Value Reference Range Interpretation Comments Anion Gap (test code = 74449-5) 15.6 8-16 [facility] CenterBlood Urea Nxzqorip4776-26-44 07:12:00* Test Item Value Reference Range Interpretation Comments Blood Urea Nitrogen (test code = 3094-0) 32 7-26 H [facility] CenterCreatinine2020-01-26 07:12:00* Test Item Value Reference Range Interpretation Comments Creatinine (test code = 2160-0) 5.68 0.57-1.11 H [facility] CenterBUN/Creatinine Snikq6732-11-09 07:12:00* Test Item Value Reference Range Interpretation Comments BUN/Creatinine Ratio (test code = 3097-3) 6 6-25 [facility] CenterEstimat Glomerular Filtration Rate 2019-09-23 07:12:00* Test Item Value Reference Range Interpretation Comments Estimat Glomerular Filtration Rate (test code = 450511424) 7 >60 L Ranges were taken from the National Kidney Disease Education Program and the [facility] Kidney Foundation literature.Reference ranges:60 or greater: Iveqxg13-17 ( for 3 consecutive months): Chronic kidney disease 15 or less: Kidney failureWoodland Heights Medical CenterGlucose Lakqc5684-40-30 07:12:00* Test Item Value Reference Range Interpretation Comments Glucose Level (test code = JAP1242) 108 74-118 [facility] CenterCalcium Kcqvv5760-49-98 07:12:00* Test Item Value Reference Range Interpretation Comments Calcium Level (test code = 57061-1) 9.6 8.4-10.2 [facility] CenterTotal Bjhybgsgu8551-94-63 07:12:00* Test Item Value Reference Range Interpretation Comments Total Bilirubin (test code = 1975-2) 0.3 0.2-1.2 [facility] CenterAspartate Amino Transf (AST/SGOT) 2019-09-23 07:12:00* Test Item Value Reference Range Interpretation Comments Aspartate Amino Transf (AST/SGOT) (test code = Aspartate Amino Transf (AST/SGOT)) 12 5-34 [facility] CenterAlanine Aminotransferase (ALT/SGPT) 2019-09-23 07:12:00* Test Item Value Reference Range Interpretation Comments Alanine Aminotransferase (ALT/SGPT) (test code = 1742-6) 11 0-55 [facility] CenterTotal Tnmolfv0986-97-77 07:12:00* Test Item Value Reference Range Interpretation Comments Total Protein (test code = 2885-2) 6.2 6.5-8.1 L [facility] CenterAlbumin2020-01-26 07:12:00* Test Item Value Reference Range Interpretation Comments Albumin (test code = 1751-7) 2.3 3.5-5.0 L [facility] CenterGlobulin2020-01-26 07:12:00* Test Item Value Reference Range Interpretation Comments Globulin (test code = 68485-4) 3.9 2.3-3.5 H [facility] CenterAlbumin/Globulin Cbdqj0962-50-90 07:12:00 * Test Item Value Reference Range Interpretation Comments Albumin/Globulin Ratio (test code = 1759-0) 0.6 0.8-2.0 L [facility] CenterAlkaline Pxjkzmijwba9415-96-10 07:12:00* Test Item Value Reference Range Interpretation Comments Alkaline Phosphatase (test code = 6768-6) 99 40-150 [facility] CenterTriglycerides Nhcni2332-69-26 07:12:00* Test Item Value Reference Range Interpretation Comments Triglycerides Level (test code = 2571-8) 95 0-149 [facility] CenterCholesterol Kyyiv4111-90-41 07:12:00* Test Item Value Reference Range Interpretation Comments Cholesterol Level (test code = 2093-3) 120 0-199 Less than 200 mg/dL Low Faqg583 - 239 mg/dL Borderline Ibmy055 m g/dl and greater High Risk [facility] CenterLDL Nlgilfarsvm0249-36-11 07:12:00* Test Item Value Reference Range Interpretation Comments LDL Cholesterol (test code = 2089-1) 59 60-130 L [facility] CenterHDL Snjrtlykkqo8337-69-80 07:12:00* Test Item Value Reference Range Interpretation Comments HDL Cholesterol (test code = 2085-9) 42 40-60 [facility] CenterCholesterol/HDL Rttan3978-50-40 07:12:00 * Test Item Value Reference Range Interpretation Comments Cholesterol/HDL Ratio (test code = 9830-1) 2.9 3.0-3.6 L [facility] Jfuvy5072-78-10 07:12:00* Test Item Value Reference Range Interpretation Comments Sodium Level (test code = 2951-2) 138 136-145 [facility] CenterPotassium Ybqtv1567-16-26 07:12:00* Test Item Value Reference Range Interpretation Comments Potassium Level (test code = 2823-3) 3.6 3.5-5.1 [facility] CenterChloride Srpea8797-39-01 07:12:00* Test Item Value Reference Range Interpretation Comments Chloride Level (test code = 2075-0) 105 98-107 [facility] CenterCarbon Dioxide Zwmbi0333-01-64 07:12:00* Test Item Value Reference Range Interpretation Comments Carbon Dioxide Level (test code = 2028-9) 21 22-29 L [facility] CenterAnion Exk9422-39-71 07:12:00* Test Item Value Reference Range Interpretation Comments Anion Gap (test code = 53288-0) 15.6 8-16 [facility] CenterBlood Urea Wkoronjr5237-59-23 07:12:00* Test Item Value Reference Range Interpretation Comments Blood Urea Nitrogen (test code = 3094-0) 32 7-26 H [facility] CenterCreatinine2020-01-26 07:12:00* Test Item Value Reference Range Interpretation Comments Creatinine (test code = 2160-0) 5.68 0.57-1.11 H [facility] CenterBUN/Creatinine Oezno2251-98-16 07:12:00* Test Item Value Reference Range Interpretation Comments BUN/Creatinine Ratio (test code = 3097-3) 6 6-25 [facility] CenterEstimat Glomerular Filtration Rate 2019-09-23 07:12:00* Test Item Value Reference Range Interpretation Comments Estimat Glomerular Filtration Rate (test code = 694140648) 7 >60 L Ranges were taken from the National Kidney Disease Education Program and the [facility] Kidney Foundation literature.Reference ranges:60 or greater: Jyrqzs27-39 ( for 3 consecutive months): Chronic kidney disease 15 or less: Kidney failureWoodland Heights Medical CenterGlucose Dhdxg4697-72-40 07:12:00* Test Item Value Reference Range Interpretation Comments Glucose Level (test code = WPP6760) 108 74-118 [facility] CenterCalcium Rqcll0931-58-27 07:12:00* Test Item Value Reference Range Interpretation Comments Calcium Level (test code = 00830-3) 9.6 8.4-10.2 [facility] CenterTotal Xcyryyllt7471-57-28 07:12:00* Test Item Value Reference Range Interpretation Comments Total Bilirubin (test code = 1975-2) 0.3 0.2-1.2 [facility] CenterAspartate Amino Transf (AST/SGOT) 2019-09-23 07:12:00* Test Item Value Reference Range Interpretation Comments Aspartate Amino Transf (AST/SGOT) (test code = Aspartate Amino Transf (AST/SGOT)) 12 5-34 [facility] CenterAlanine Aminotransferase (ALT/SGPT) 2019-09-23 07:12:00* Test Item Value Reference Range Interpretation Comments Alanine Aminotransferase (ALT/SGPT) (test code = 1742-6) 11 0-55 [facility] CenterTotal Ehwftnc5290-62-37 07:12:00* Test Item Value Reference Range Interpretation Comments Total Protein (test code = 2885-2) 6.2 6.5-8.1 L [facility] CenterAlbumin2020-01-26 07:12:00* Test Item Value Reference Range Interpretation Comments Albumin (test code = 1751-7) 2.3 3.5-5.0 L [facility] CenterGlobulin2020-01-26 07:12:00* Test Item Value Reference Range Interpretation Comments Globulin (test code = 79260-7) 3.9 2.3-3.5 H [facility] CenterAlbumin/Globulin Gygsh2960-91-72 07:12:00 * Test Item Value Reference Range Interpretation Comments Albumin/Globulin Ratio (test code = 1759-0) 0.6 0.8-2.0 L [facility] CenterAlkaline Epjxrdsoocs4207-51-79 07:12:00* Test Item Value Reference Range Interpretation Comments Alkaline Phosphatase (test code = 6768-6) 99 40-150 [facility] CenterTriglycerides Ndcmw0194-71-37 07:12:00* Test Item Value Reference Range Interpretation Comments Triglycerides Level (test code = 2571-8) 95 0-149 [facility] CenterCholesterol Jwoqu5793-38-16 07:12:00* Test Item Value Reference Range Interpretation Comments Cholesterol Level (test code = 2093-3) 120 0-199 Less than 200 mg/dL Low Uqpj599 - 239 mg/dL Borderline Wfla403 m g/dl and greater High Risk [facility] CenterLDL Zsprszxboaw6058-32-21 07:12:00* Test Item Value Reference Range Interpretation Comments LDL Cholesterol (test code = 2089-1) 59 60-130 L [facility] CenterHDL Ggxgqqeqagt4150-95-11 07:12:00* Test Item Value Reference Range Interpretation Comments HDL Cholesterol (test code = 2085-9) 42 40-60 [facility] CenterCholesterol/HDL Fzjnp2782-54-69 07:12:00 * Test Item Value Reference Range Interpretation Comments Cholesterol/HDL Ratio (test code = 9830-1) 2.9 3.0-3.6 L [facility] CenterTriglycerides Cwwtx8912-79-95 07:12:00* Test Item Value Reference Range Interpretation Comments Triglycerides Level (test code = 2571-8) 95 0-149 [facility] CenterCholesterol Sfxwn7494-35-90 07:12:00* Test Item Value Reference Range Interpretation Comments Cholesterol Level (test code = 2093-3) 120 0-199 Less than 200 mg/dL Low Digo537 - 239 mg/dL Borderline Nskz162 m g/dl and greater High Risk [facility] CenterLDL Snvnctgowes6490-93-22 07:12:00* Test Item Value Reference Range Interpretation Comments LDL Cholesterol (test code = 2089-1) 59 60-130 [facility] [facility] CenterHDL Dwmlrubfwya1108-46-13 07:12:00* Test Item Value Reference Range Interpretation Comments HDL Cholesterol (test code = 2085-9) 42 40-60 [facility] CenterCholesterol/HDL Msbec0073-28-24 07:12:00 * Test Item Value Reference Range Interpretation Comments Cholesterol/HDL Ratio (test code = 9830-1) 2.9 3.0-3.6 L [facility] CenterCreatine Dzeobl4525-02-84 07:10:00* Test Item Value Reference Range Interpretation Comments Creatine Kinase (test code = 2157-6) 82 29-168 [facility] CenterCreatine Kinase HT3588-09-43 07:10:00* Test Item Value Reference Range Interpretation Comments Creatine Kinase MB (test code = 66176-7) 1.50 0-5.0 [facility] CenterTroponin W5174-86-09 07:10:00* Test Item Value Reference Range Interpretation Comments Troponin I (test code = LGP9699) 0.007 0-0.300 [facility] CenterCreatine Rbztzy9321-27-18 07:10:00* Test Item Value Reference Range Interpretation Comments Creatine Kinase (test code = 2157-6) 82 29-168 [facility] CenterCreatine Kinase PP8956-95-96 07:10:00* Test Item Value Reference Range Interpretation Comments Creatine Kinase MB (test code = 48814-5) 1.50 0-5.0 [facility] CenterTrerl[facility] systemnin X4888-90-09 07:10:00* Test Item Value Reference Range Interpretation Comments Troponin I (test code = GOM8998) 0.007 0-0.300 [facility] CenterWhite Blood Slopp3706-32-54 06:42:00* Test Item Value Reference Range Interpretation Comments White Blood Count (test code = 6690-2) 7.78 4.8-10.8 [facility] CenterRed Blood Rsfbe8242-50-07 06:42:00* Test Item Value Reference Range Interpretation Comments Red Blood Count (test code = 789-8) 4.80 3.6-5.1 [facility] CenterHemoglobin2020-01-26 06:42:00* Test Item Value Reference Range Interpretation Comments Hemoglobin (test code = 90518-5) 13.9 12.0-16.0 [facility] CenterHematocrit2020-01-26 06:42:00* Test Item Value Reference Range Interpretation Comments Hematocrit (test code = 4544-3) 42.5 34.2-44.1 [facility] CenterMean Corpuscular Xwwsaz1090-57-12 06:42:00* Test Item Value Reference Range Interpretation Comments Mean Corpuscular Volume (test code = 787-2) 88.5 81-99 [facility] CenterMean Corpuscular Qbhcynoyvn1187-47-46 06:42:00* Test Item Value Reference Range Interpretation Comments Mean Corpuscular Hemoglobin (test code = 785-6) 29.0 28-32 [facility] CenterMean Corpuscular Hemoglobin Concent 2019-09-23 06:42:00* Test Item Value Reference Range Interpretation Comments Mean Corpuscular Hemoglobin Concent (test code = 786-4) 32.7 31-35 [facility] CenterRed Cell Distribution Ccdea9796-07-08 06:42:00* Test Item Value Reference Range Interpretation Comments Red Cell Distribution Width (test code = 13490-2) 13.7 11.7 -14.4 [facility] CenterPlatelet Pkmtp6976-70-34 06:42:00* Test Item Value Reference Range Interpretation Comments Platelet Count (test code = 777-3) 147 140-360 [facility] CenterNeutrophils (%) (Auto)2019-09-23 06:42:00 * Test Item Value Reference Range Interpretation Comments Neutrophils (%) (Auto) (test code = 23340-6) 72.4 38.7-80.0 [facility] CenterLymphocytes (%) (Auto)2019-09-23 06:42:00 * Test Item Value Reference Range Interpretation Comments Lymphocytes (%) (Auto) (test code = 736-9) 13.4 18.0-39.1 L [facility] CenterMonocytes (%) (Auto)2019-09-23 06:42:00* Test Item Value Reference Range Interpretation Comments Monocytes (%) (Auto) (test code = 5905-5) 10.3 4.4-11.3 [facility] CenterEosinophils (%) (Auto)2019-09-23 06:42:00 * Test Item Value Reference Range Interpretation Comments Eosinophils (%) (Auto) (test code = 713-8) 3.0 0.0-6.0 [facility] CenterBasophils (%) (Auto)2019-09-23 06:42:00* Test Item Value Reference Range Interpretation Comments Basophils (%) (Auto) (test code = 706-2) 0.6 0.0-1.0 [facility] CenterIM GRANULOCYTES %2019-09-23 06:42:00* Test Item Value Reference Range Interpretation Comments IM GRANULOCYTES % (test code = IM GRANULOCYTES %) 0.3 0.0- 1.0 [facility] CenterNeutrophils # (Auto)2019-09-23 06:42:00* Test Item Value Reference Range Interpretation Comments Neutrophils # (Auto) (test code = 751-8) 5.6 2.1-6.9 [facility] CenterLymphocytes # (Auto)2019-09-23 06:42:00* Test Item Value Reference Range Interpretation Comments Lymphocytes # (Auto) (test code = 09171-5) 1.0 1.0-3.2 [facility] CenterMonocytes # (Auto)2019-09-23 06:42:00* Test Item Value Reference Range Interpretation Comments Monocytes # (Auto) (test code = 742-7) 0.8 0.2-0.8 [facility] CenterEosinophils # (Auto)2019-09-23 06:42:00* Test Item Value Reference Range Interpretation Comments Eosinophils # (Auto) (test code = 711-2) 0.2 0.0-0.4 [facility] CenterBasophils # (Auto)2019-09-23 06:42:00* Test Item Value Reference Range Interpretation Comments Basophils # (Auto) (test code = 704-7) 0.1 0.0-0.1 [facility] CenterAbsolute Immature Granulocyte (auto 2019-09-23 06:42:00* Test Item Value Reference Range Interpretation Comments Absolute Immature Granulocyte (auto (karo t code = Absolute Immature Granulocyte (auto) 0.02 0-0.1 [facility] CenterWhite Blood Izinj3723-26-87 06:42:00* Test Item Value Reference Range Interpretation Comments White Blood Count (test code = 6690-2) 7.78 4.8-10.8 [facility] CenterRed Blood Kmwtq5623-18-20 06:42:00* Test Item Value Reference Range Interpretation Comments Red Blood Count (test code = 789-8) 4.80 3.6-5.1 [facility] CenterHemoglobin2020-01-26 06:42:00* Test Item Value Reference Range Interpretation Comments Hemoglobin (test code = 95903-5) 13.9 12.0-16.0 [facility] CenterHematocrit2020-01-26 06:42:00* Test Item Value Reference Range Interpretation Comments Hematocrit (test code = 4544-3) 42.5 34.2-44.1 [facility] CenterMean Corpuscular Ozvtxj7974-22-16 06:42:00* Test Item Value Reference Range Interpretation Comments Mean Corpuscular Volume (test code = 787-2) 88.5 81-99 [facility] CenterMean Corpuscular Taobpckper0569-42-71 06:42:00* Test Item Value Reference Range Interpretation Comments Mean Corpuscular Hemoglobin (test code = 785-6) 29.0 28-32 [facility] Corpuscular Hemoglobin Concent 2019-09-23 06:42:00* Test Item Value Reference Range Interpretation Comments Mean Corpuscular Hemoglobin Concent (test code = 786-4) 32.7 31-35 [facility] CenterRed Cell Distribution Dkjgx6420-47-93 06:42:00* Test Item Value Reference Range Interpretation Comments Red Cell Distribution Width (test code = 91359-0) 13.7 11.7 -14.4 [facility] CenterPlatelet Wllpf1834-87-15 06:42:00* Test Item Value Reference Range Interpretation Comments Platelet Count (test code = 777-3) 147 140-360 [facility] CenterNeutrophils (%) (Auto)2019-09-23 06:42:00 * Test Item Value Reference Range Interpretation Comments Neutrophils (%) (Auto) (test code = 51812-1) 72.4 38.7-80.0 [facility] CenterLymphocytes (%) (Auto)2019-09-23 06:42:00 * Test Item Value Reference Range Interpretation Comments Lymphocytes (%) (Auto) (test code = 736-9) 13.4 18.0-39.1 L [facility] CenterMonocytes (%) (Auto)2019-09-23 06:42:00* Test Item Value Reference Range Interpretation Comments Monocytes (%) (Auto) (test code = 5905-5) 10.3 4.4-11.3 [facility] CenterEosinophils (%) (Auto)2019-09-23 06:42:00 * Test Item Value Reference Range Interpretation Comments Eosinophils (%) (Auto) (test code = 713-8) 3.0 0.0-6.0 [facility] CenterBasophils (%) (Auto)2019-09-23 06:42:00* Test Item Value Reference Range Interpretation Comments Basophils (%) (Auto) (test code = 706-2) 0.6 0.0-1.0 [facility] CenterIM GRANULOCYTES %2019-09-23 06:42:00* Test Item Value Reference Range Interpretation Comments IM GRANULOCYTES % (test code = IM GRANULOCYTES %) 0.3 0.0- 1.0 [facility] CenterNeutrophils # (Auto)2019-09-23 06:42:00* Test Item Value Reference Range Interpretation Comments Neutrophils # (Auto) (test code = 751-8) 5.6 2.1-6.9 [facility] CenterLymphocytes # (Auto)2019-09-23 06:42:00* Test Item Value Reference Range Interpretation Comments Lymphocytes # (Auto) (test code = 47798-1) 1.0 1.0-3.2 [facility] CenterMonocytes # (Auto)2019-09-23 06:42:00* Test Item Value Reference Range Interpretation Comments Monocytes # (Auto) (test code = 742-7) 0.8 0.2-0.8 [facility] CenterEosinophils # (Auto)2019-09-23 06:42:00* Test Item Value Reference Range Interpretation Comments Eosinophils # (Auto) (test code = 711-2) 0.2 0.0-0.4 [facility] CenterBasophils # (Auto)2019-09-23 06:42:00* Test Item Value Reference Range Interpretation Comments Basophils # (Auto) (test code = 704-7) 0.1 0.0-0.1 [facility] CenterAbsolute Immature Granulocyte (auto 2019-09-23 06:42:00* Test Item Value Reference Range Interpretation Comments Absolute Immature Granulocyte (auto (karo t code = Absolute Immature Granulocyte (auto) 0.02 0-0.1 [facility] plasma triglyceride measurement (mass/volume)2019-09-23 04:35:00* Test Item Value Reference Range Interpretation Comments Triglycerides Level (test code = 2571-8) 95 0-149 [facility] McAllenerum or plasma cholesterol measurement (mass/volume)2019-09-23 04:35:00* Test Item Value Reference Range Interpretation Comments Cholesterol Level (test code = 2093-3) 120 0-199 Less than 200 mg/dL Low Jhiu157 - 239 mg/dL Borderline Lpqr418 m g/dl and greater High Risk [facility] McAllenerum or plasma cholesterol in LDL measurement (mass/volume) 2019-09-23 04:35:00* Test Item Value Reference Range Interpretation Comments LDL Cholesterol (test code = 2089-1) 59 60-130 [facility] McAllenerum or plasma cholesterol in HDL measurement (mass/volume)2019-09-23 04:35:00* Test Item Value Reference Range Interpretation Comments HDL Cholesterol (test code = 2085-9) 42 40-60 [facility]Allenerum or plasma total cholesterol/cholesterol in HDL mass bdbuy8381-09-74 04:35:00* Test Item Value Reference Range Interpretation Comments Cholesterol/HDL Ratio (test code = 9830-1) 2.9 3.0-3.6 [facility] CenterUrine Zupfk6873-70-86 18:05:00* Test Item Value Reference Range Interpretation Comments Urine Color (test code = 5778-6) YELLOW YELLOW [facility] CenterUrine Fhhiuru3079-38-06 18:05:00* Test Item Value Reference Range Interpretation Comments Urine Clarity (test code = 24298-6) CLEAR CLEAR [facility] CenterUrine Specific Tqntuhh1303-81-17 18:05:00 * Test Item Value Reference Range Interpretation Comments Urine Specific [place] (test code = 5811-5) 1.010 1.010-1.02 5 [facility] CenterUrine hC6232-51-59 18:05:00* Test Item Value Reference Range Interpretation Comments Urine pH (test code = 14245-7) 7 5-7 [facility] CenterUrine Leukocyte Tgetmroo6777-81-50 18:05:00* Test Item Value Reference Range Interpretation Comments Urine Leukocyte Esterase (test code = 5799-2) NEGATIVE NEGATIVE [facility] CenterUrine Eghtwqf1810-96-34 18:05:00* Test Item Value Reference Range Interpretation Comments Urine Nitrite (test code = 62740-7) NEGATIVE NEGATIVE [facility] CenterUrine Fqhzkob0309-83-76 18:05:00* Test Item Value Reference Range Interpretation Comments Urine Protein (test code = 5804-0) 1+ NEGATIVE H [facility] CenterUrine Glucose (UA)2019-09-22 18:05:00* Test Item Value Reference Range Interpretation Comments Urine Glucose (UA) (test code = 2349-9) NEGATIVE NEGATIVE [facility] CenterUrine Fbruabf2556-99-31 18:05:00* Test Item Value Reference Range Interpretation Comments Urine Ketones (test code = 30127-0) NEGATIVE NEGATIVE [facility] Jxyrhzcngtsa0291-75-78 18:05:00* Test Item Value Reference Range Interpretation Comments Urine Urobilinogen (test code = 80308-6) 0.2 0.2-1 [facility] CenterUrine Acpuyebzq7081-68-10 18:05:00* Test Item Value Reference Range Interpretation Comments Urine Bilirubin (test code = 1978-6) NEGATIVE NEGATIVE [facility] Sgbik1272-36-20 18:05:00* Test Item Value Reference Range Interpretation Comments Urine Blood (test code = 48453-7) 1+ NEGATIVE [facility] TFF9749-53-33 18:05:00* Test Item Value Reference Range Interpretation Comments Urine WBC (test code = 5821-4) 6-10 0-5 H [facility] ZWC2874-95-12 18:05:00* Test Item Value Reference Range Interpretation Comments Urine RBC (test code = 07090-2) 0-5 0-5 [facility] CenterU[facility] Xvjybayf8865-78-67 18:05:00* Test Item Value Reference Range Interpretation Comments Urine Bacteria (test code = 95640-6) RARE NONE [facility] CenterUrine Epithelial Vctyu8124-41-23 18:05:00 * Test Item Value Reference Range Interpretation Comments Urine Epithelial Cells (test code = 39153-7) FEW NONE [facility] CenterUrine Ofmmy9420-57-34 18:05:00* Test Item Value Reference Range Interpretation Comments Urine Color (test code = 5778-6) YELLOW YELLOW [facility] CenterUrine Mhjmvpi6256-48-16 18:05:00* Test Item Value Reference Range Interpretation Comments Urine Clarity (test code = 82984-8) CLEAR CLEAR [facility] CenterUrine Specific Unnuncv9861-55-07 18:05:00 * Test Item Value Reference Range Interpretation Comments Urine Specific [place] (test code = 5811-5) 1.010 1.010-1.02 5 [facility] CenterUrine yO4982-99-90 18:05:00* Test Item Value Reference Range Interpretation Comments Urine pH (test code = 01242-2) 7 5-7 [facility] CenterUrine Leukocyte Xggxqsvg1617-36-66 18:05:00* Test Item Value Reference Range Interpretation Comments Urine Leukocyte Esterase (test code = 5799-2) NEGATIVE NEGATIVE [facility] CenterUrine Jdsnxcu7452-77-54 18:05:00* Test Item Value Reference Range Interpretation Comments Urine Nitrite (test code = 74084-5) NEGATIVE NEGATIVE [facility] CenterUrine Wcmeddu3213-99-32 18:05:00* Test Item Value Reference Range Interpretation Comments Urine Protein (test code = 5804-0) 1+ NEGATIVE H [facility] CenterUrine Glucose (UA)2019-09-22 18:05:00* Test Item Value Reference Range Interpretation Comments Urine Glucose (UA) (test code = 2349-9) NEGATIVE NEGATIVE [facility] Fvsidga6981-51-16 18:05:00* Test Item Value Reference Range Interpretation Comments Urine Ketones (test code = 65168-5) NEGATIVE NEGATIVE [facility] CenterU[facility] Asujsorbwstq8425-05-36 18:05:00* Test Item Value Reference Range Interpretation Comments Urine Urobilinogen (test code = 80731-0) 0.2 0.2-1 [facility] CenterU[facility] Swaosrwju7462-48-11 18:05:00* Test Item Value Reference Range Interpretation Comments Urine Bilirubin (test code = 1978-6) NEGATIVE NEGATIVE [facility] CenterU[facility] Zrygd4800-58-97 18:05:00* Test Item Value Reference Range Interpretation Comments Urine Blood (test code = 51250-3) 1+ NEGATIVE [facility] CenterU[facility] SMU9738-73-16 18:05:00* Test Item Value Reference Range Interpretation Comments Urine WBC (test code = 5821-4) 6-10 0-5 H [facility] CenterU[facility] GPI1574-18-44 18:05:00* Test Item Value Reference Range Interpretation Comments Urine RBC (test code = 09882-1) 0-5 0-5 [facility] CenterU[facility] Wukxyepw1999-98-67 18:05:00* Test Item Value Reference Range Interpretation Comments Urine Bacteria (test code = 58760-8) RARE NONE [facility] CenterUrine Epithelial Bjthg7512-15-71 18:05:00 * Test Item Value Reference Range Interpretation Comments Urine Epithelial Cells (test code = 30440-6) FEW NONE [facility] CenterU[facility] Zvbfj0707-74-26 18:05:00* Test Item Value Reference Range Interpretation Comments Urine Color (test code = 5778-6) YELLOW YELLOW [facility] CenterU[facility] Nsvxipa5421-76-95 18:05:00* Test Item Value Reference Range Interpretation Comments Urine Clarity (test code = 54293-3) CLEAR CLEAR [facility] Specific Mcrfpna7044-73-13 18:05:00 * Test Item Value Reference Range Interpretation Comments Urine Specific [place] (test code = 5811-5) 1.010 1.010-1.02 5 [facility] CenterU[facility] bG6811-04-80 18:05:00* Test Item Value Reference Range Interpretation Comments Urine pH (test code = 77064-4) 7 5-7 [facility] CenterU[facility] Leukocyte Czulzheo2590-17-21 18:05:00* Test Item Value Reference Range Interpretation Comments Urine Leukocyte Esterase (test code = 5799-2) NEGATIVE NEGATIVE [facility] CenterU[facility] Ognioal7398-86-28 18:05:00* Test Item Value Reference Range Interpretation Comments Urine Nitrite (test code = 40753-4) NEGATIVE NEGATIVE [facility] CenterU[facility] Mvscxkm6488-01-49 18:05:00* Test Item Value Reference Range Interpretation Comments Urine Protein (test code = 5804-0) 1+ NEGATIVE H [facility] CenterUrine Glucose (UA)2019-09-22 18:05:00* Test Item Value Reference Range Interpretation Comments Urine Glucose (UA) (test code = 2349-9) NEGATIVE NEGATIVE [facility] CenterU[facility] Rfwfjtx0863-14-56 18:05:00* Test Item Value Reference Range Interpretation Comments Urine Ketones (test code = 93061-6) NEGATIVE NEGATIVE [facility] Lthljwfxabtm1872-54-20 18:05:00* Test Item Value Reference Range Interpretation Comments Urine Urobilinogen (test code = 33938-9) 0.2 0.2-1 [facility] CenterU[facility] Rqudivphc2158-57-69 18:05:00* Test Item Value Reference Range Interpretation Comments Urine Bilirubin (test code = 1978-6) NEGATIVE NEGATIVE [facility] CenterU[facility] Elrqq2509-14-52 18:05:00* Test Item Value Reference Range Interpretation Comments Urine Blood (test code = 12866-1) 1+ NEGATIVE [facility] CenterU[facility] SLU9548-41-89 18:05:00* Test Item Value Reference Range Interpretation Comments Urine WBC (test code = 5821-4) 6-10 0-5 H [facility] HXW0543-66-34 18:05:00* Test Item Value Reference Range Interpretation Comments Urine RBC (test code = 14841-9) 0-5 0-5 [facility] CenterU[facility] Acnnhapy4050-07-81 18:05:00* Test Item Value Reference Range Interpretation Comments Urine Bacteria (test code = 24725-4) RARE NONE [facility] CenterUrine Epithelial Gnoir2132-74-57 18:05:00 * Test Item Value Reference Range Interpretation Comments Urine Epithelial Cells (test code = 46071-1) FEW NONE [facility] CenterUrine color raycvxfwyqisn9507-88-18 16:40:00* Test Item Value Reference Range Interpretation Comments Urine Color (test code = 5778-6) YELLOW YELLOW [facility] CenterUrine skscveg0420-81-56 16:40:00* Test Item Value Reference Range Interpretation Comments Urine Clarity (test code = 61687-4) CLEAR CLEAR [facility] of Urine by Test strip 2019-09-22 16:40:00* Test Item Value Reference Range Interpretation Comments Urine Specific [place] (test code = 5811-5) 1.010 1.010-1.02 5 [facility] CenterUrine pH measurement by automated test lrtpz4838-92-12 16:40:00* Test Item Value Reference Range Interpretation Comments Urine pH (test code = 76791-5) 7 5-7 [facility] CenterUrine leukocyte esterase detection by rdwfhbzw4140-70-34 16:40:00* Test Item Value Reference Range Interpretation Comments Urine Leukocyte Esterase (test code = 5799-2) NEGATIVE NEGATIVE [facility] CenterUrine nitrite wwtpluwuz4363-20-54 16:40:00* Test Item Value Reference Range Interpretation Comments Urine Nitrite (test code = 16936-3) NEGATIVE NEGATIVE [facility] CenterUrine protein measurement by test strip (mass/volume)2019-09-22 16:40:00* Test Item Value Reference Range Interpretation Comments Urine Protein (test code = 5804-0) 1+ NEGATIVE [facility] CenterUrine glucose icvdqhukn3662-65-61 16:40:00* Test Item Value Reference Range Interpretation Comments Urine Glucose (UA) (test code = 2349-9) NEGATIVE NEGATIVE [facility] CenterUrine ketones detection by automated test pezmg6263-45-17 16:40:00* Test Item Value Reference Range Interpretation Comments Urine Ketones (test code = 92819-1) NEGATIVE NEGATIVE [facility] CenterUrine urobilinogen measurement by test strip (mass/volume)2019-09-22 16:40:00* Test Item Value Reference Range Interpretation Comments Urine Urobilinogen (test code = 04056-6) 0.2 0.2-1 [facility] CenterUrine total bilirubin measurement (mass/volume)2019-09-22 16:40:00* Test Item Value Reference Range Interpretation Comments Urine Bilirubin (test code = 1978-6) NEGATIVE NEGATIVE [facility] CenterUrine erythrocytes anknkrmqc2818-05-74 16:40:00* Test Item Value Reference Range Interpretation Comments Urine Blood (test code = 02231-1) 1+ NEGATIVE [facility] CenterAutomated urine sediment leukocyte count by microscopy (number/high power field)2019-09-22 16:40:00* Test Item Value Reference Range Interpretation Comments Urine WBC (test code = 5821-4) 6-10 0-5 [facility] CenterErythrocytes detection in urine sediment by light eqcwybqlzq1105-45-05 16:40:00* Test Item Value Reference Range Interpretation Comments Urine RBC (test code = 61664-0) 0-5 0-5 [facility] CenterBacteria detection in urine sediment by light nghcjjvrdw7529-61-66 16:40:00* Test Item Value Reference Range Interpretation Comments Urine Bacteria (test code = 31150-0) RARE NONE [facility] CenterEpithelial cells detection in urine sediment by light hlsxavccwe5583-78-64 16:40:00* Test Item Value Reference Range Interpretation Comments Urine Epithelial Cells (test code = 93106-4) FEW NONE [facility] CenterMRI BRAIN KW2859-04-71 16:23:00 [facility] [address] [place] [address] Patient Name: MIGUEL FONTENOT MR #: [id number] : 07/1935 Age/Sex: 84/F Req #: [id number] Adm Physician: RODNEY SHIPMAN MD Ordered by: ERICKA GREENE MD Report #: [id number] Location: MED/SURG2 Room[place]Bed: [facility] [place] Procedure: 03 MRI/MRI BRAIN WO Exam Date: Exam [...] nically Signed By: ATILIO ABARCA MD on 09/22/19 1636 Transcribed By: YAQUELIN on 09/22/19 1636 COPY TO: ERICKA GREENE MD CHEST SINGLE (PORTABLE)2019-09-22 13:34:00 [place] [address] Patient Name: MIGUEL FONTENOT MR #: [id number] : 1935 Age/Sex: 84/F Req #: [id number] Adm Physician: Ordered by: LOY SO [employer]TER Report #: [id number] Location: ER Room/Bed: Procedure: 0125-0 021 DX/CHEST [...] PM Dictated By: QUE JACKSON MD, MD [facility] Signed By: QUE JACKSON MD, MD on 09/22/191335 Transcribed By: YAQUELIN on 09/22/191335 COPY TO: [employer] Prothrombin Time 2019-09-22 13:06:00* Test Item Value Reference Range Interpretation Comments Prothrombin Time (test code = 5902-2) 14.0 11.9-14.5 [facility] CenterProthromb Time International Ratio 2019-09-22 13:06:00* Test Item Value Reference Range Interpretation Comments Prothromb Time International Ratio (test code = 6301-6) 1.03 Oral Anticoagulant Therapy INR Values:1. Low Intensity Therapy 1.5 - 2.02 . Moderate Intensity Therapy 2.0 - 3.03. High Intensity Therapy(1) 2.5 - 3. 54. High Intensity Therapy(2) 3.0 - 4.05. Panic Value INR > 5.0 [facility] CenterActivated Partial Thromboplast Time 2019-09-22 13:06:00* Test Item Value Reference Range Interpretation Comments Activated Partial Thromboplast Time (test code = 72392-5) 35.5 23.8-35.5 [facility] CenterProthrombin Sesb6582-36-39 13:06:00* Test Item Value Reference Range Interpretation Comments Prothrombin Time (test code = 5902-2) 14.0 11.9-14.5 [facility] CenterProthromb Time International Ratio 2019-09-22 13:06:00* Test Item Value Reference Range Interpretation Comments Prothromb Time International Ratio (test code = 6301-6) 1.03 Oral Anticoagulant Therapy INR Values:1. Low Intensity Therapy 1.5 - 2.02 . Moderate Intensity Therapy 2.0 - 3.03. High Intensity Therapy(1) 2.5 - 3. 54. High Intensity Therapy(2) 3.0 - 4.05. Panic Value INR > 5.0 [facility] CenterActivated Partial Thromboplast Time 2019-09-22 13:06:00* Test Item Value Reference Range Interpretation Comments Activated Partial Thromboplast Time (test code = 89776-3) 35.5 23.8-35.5 [facility] CenterCT BRAIN SA1538-48-47 12:42:00 [facility] [address] [place] [address] Patient Name: MIGUEL FONTENOT MR #: [id number] : 07/1935 Age/Sex: 84/F Req #: [id number] Adm Physician: Ordered by: LOY SO HEEL SEAT FITTER Report #: [id number] Location: ER Room/Bed: Procedure: 0125-[address]/CT [...] on 09/22/19 1246 COPY TO: LOY SO NP Blood Vbwnzqf4702-41-50 17:23:00* Test Item Value Reference Range Interpretation Comments Blood Culture (test code = 35226058) NO GROWTH AFTER 72 HOURS [facility]NAGY1802-26-10 19:38:00 [place] [address] Patient Name: MIGUEL FONTENOT MR #: [id number] : 07/1935 Age/Sex: 83/F Req #: [id number] Adm Physician: RODNEY SHIPMAN MD Ordered by: RODNEY SHIPMAN MD Report #: [id number] Location: MED/SURG3 Room/Bed: [facility] Procedure: 0318- 0062 DX/FOOT RIGHT COMPLETE [...] No radiographic evidence of osteomyelitis. Signed by: Dr. Cameron Stevens D.O. , M.M.M. on 11/13/2018 7:44 PM Dictated By: CAMERON STEVENS DO 43 Transcribed By: YAQUELIN on 11/13/181943 COPY TO: RODNEY SHIPMAN MD Uric Gmkt5247-60-75 18:28:00* Test Item Value Reference Range Interpretation Comments Uric Acid (test code = 3084-1) 6.3 2.6-8.0 [facility] Brkgv9861-71-40 06:42:00* Test Item Value Reference Range Interpretation Comments Sodium Level (test code = 2951-2) 142 136-145 [facility] CenterPotassium Fwqcm3849-57-63 06:42:00* Test Item Value Reference Range Interpretation Comments Potassium Level (test code = 2823-3) 3.9 3.5-5.1 [facility] CenterChloride Cprmd1343-41-58 06:42:00* Test Item Value Reference Range Interpretation Comments Chloride Level (test code = 2075-0) 108 98-107 H [facility] CenterCarbon Dioxide Guzdu1160-82-58 06:42:00* Test Item Value Reference Range Interpretation Comments Carbon Dioxide Level (test code = 2028-9) 26 22-29 [facility] CenterAnion Pwk2348-31-04 06:42:00* Test Item Value Reference Range Interpretation Comments Anion Gap (test code = 94196-3) 11.9 8-16 [facility] CenterBlood Urea Gxklzbpb4917-61-09 06:42:00* Test Item Value Reference Range Interpretation Comments Blood Urea Nitrogen (test code = 3094-0) 24 7-26 [facility] CenterCreatinine2019-03-18 06:42:00* Test Item Value Reference Range Interpretation Comments Creatinine (test code = 2160-0) 5.30 0.57-1.11 H [facility] CenterBUN/Creatinine Ecppr2356-48-16 06:42:00* Test Item Value Reference Range Interpretation Comments BUN/Creatinine Ratio (test code = 3097-3) 5 6-25 L [facility] CenterEstimat Glomerular Filtration Rate 2018-11-13 06:42:00* Test Item Value Reference Range Interpretation Comments Estimat Glomerular Filtration Rate (test code = 515396288) 8 >60 L Ranges were taken from the National Kidney Disease Education Program and the [facility] Kidney Foundation literature.Reference ranges:60 or greater: Tkhsjt36-92 ( for 3 consecutive months): Chronic kidney disease 15 or less: Kidney failureWoodland Heights Medical CenterGlucose Luilk5042-15-34 06:42:00* Test Item Value Reference Range Interpretation Comments Glucose Level (test code = KPH0475) 104 74-118 [facility] CenterCalcium Jqagy6205-97-00 06:42:00* Test Item Value Reference Range Interpretation Comments Calcium Level (test code = 03331-3) 7.9 8.4-10.2 L [facility] CenterWhite Blood Lqmkj4589-29-87 06:30:00* Test Item Value Reference Range Interpretation Comments White Blood Count (test code = 6690-2) 5.78 4.8-10.8 [facility] CenterRed Blood Uusvm6614-41-61 06:30:00* Test Item Value Reference Range Interpretation Comments Red Blood Count (test code = 789-8) 4.09 3.6-5.1 [facility] CenterHemoglobin2019-03-18 06:30:00* Test Item Value Reference Range Interpretation Comments Hemoglobin (test code = 59764-8) 11.8 12.0-16.0 L [facility] CenterHematocrit2019-03-18 06:30:00* Test Item Value Reference Range Interpretation Comments Hematocrit (test code = 4544-3) 38.5 34.2-44.1 [facility] CenterMean Corpuscular Gepzka1303-72-30 06:30:00* Test Item Value Reference Range Interpretation Comments Mean Corpuscular Volume (test code = 787-2) 94.1 81-99 [facility] CenterMean Corpuscular Jhzxkpevvh5772-73-15 06:30:00* Test Item Value Reference Range Interpretation Comments Mean Corpuscular Hemoglobin (test code = 785-6) 28.9 28-32 [facility] CenterMean Corpuscular Hemoglobin Concent 2018-11-13 06:30:00* Test Item Value Reference Range Interpretation Comments Mean Corpuscular Hemoglobin Concent (test code = 786-4) 30.6 31-35 L [facility] CenterRed Cell Distribution Jeooo1013-87-29 06:30:00* Test Item Value Reference Range Interpretation Comments Red Cell Distribution Width (test code = 03186-5) 17.5 11.7 -14.4 H [facility] CenterPlatelet Ycciu7702-33-69 06:30:00* Test Item Value Reference Range Interpretation Comments Platelet Count (test code = 777-3) 144 140-360 [facility] CenterNeutrophils (%) (Auto)2018-11-13 06:30:00 * Test Item Value Reference Range Interpretation Comments Neutrophils (%) (Auto) (test code = 07760-5) 63.9 38.7-80.0 [facility] CenterLymphocytes (%) (Auto)2018-11-13 06:30:00 * Test Item Value Reference Range Interpretation Comments Lymphocytes (%) (Auto) (test code = 736-9) 19.9 18.0-39.1 [facility] CenterMonocytes (%) (Auto)2018-11-13 06:30:00* Test Item Value Reference Range Interpretation Comments Monocytes (%) (Auto) (test code = 5905-5) 9.3 4.4-11.3 [facility] CenterEosinophils (%) (Auto)2018-11-13 06:30:00 * Test Item Value Reference Range Interpretation Comments Eosinophils (%) (Auto) (test code = 713-8) 6.1 0.0-6.0 H [facility] CenterBasophils (%) (Auto)2018-11-13 06:30:00* Test Item Value Reference Range Interpretation Comments Basophils (%) (Auto) (test code = 706-2) 0.5 0.0-1.0 [facility] CenterIM GRANULOCYTES %2018-11-13 06:30:00* Test Item Value Reference Range Interpretation Comments IM GRANULOCYTES % (test code = IM GRANULOCYTES %) 0.3 0.0- 1.0 [facility] CenterNeutrophils # (Auto)2018-11-13 06:30:00* Test Item Value Reference Range Interpretation Comments Neutrophils # (Auto) (test code = 751-8) 3.7 2.1-6.9 [facility] CenterLymphocytes # (Auto)2018-11-13 06:30:00* Test Item Value Reference Range Interpretation Comments Lymphocytes # (Auto) (test code = 96688-4) 1.2 1.0-3.2 [facility] CenterMonocytes # (Auto)2018-11-13 06:30:00* Test Item Value Reference Range Interpretation Comments Monocytes # (Auto) (test code = 742-7) 0.5 0.2-0.8 [facility] CenterEosinophils # (Auto)2018-11-13 06:30:00* Test Item Value Reference Range Interpretation Comments Eosinophils # (Auto) (test code = 711-2) 0.4 0.0-0.4 [facility] CenterBasophils # (Auto)2018-11-13 06:30:00* Test Item Value Reference Range Interpretation Comments Basophils # (Auto) (test code = 704-7) 0.0 0.0-0.1 [facility] CenterAbsolute Immature Granulocyte (auto 2018-11-13 06:30:00* Test Item Value Reference Range Interpretation Comments Absolute Immature Granulocyte (auto (karo t code = Absolute Immature Granulocyte (auto) 0.02 0-0.1 [facility] CenterTotal Thqezlrlk0315-66-50 16:40:00* Test Item Value Reference Range Interpretation Comments Total Bilirubin (test code = 1975-2) 0.3 0.2-1.2 [facility] CenterAspartate Amino Transf (AST/SGOT) 2018-11-12 16:40:00* Test Item Value Reference Range Interpretation Comments Aspartate Amino Transf (AST/SGOT) (test code = Aspartate Amino Transf (AST/SGOT)) 16 5-34 [facility] CenterAlanine Aminotransferase (ALT/SGPT) 2018-11-12 16:40:00* Test Item Value Reference Range Interpretation Comments Alanine Aminotransferase (ALT/SGPT) (test code = 1742-6) 9 0-55 [facility] Szhagst1034-17-93 16:40:00* Test Item Value Reference Range Interpretation Comments Total Protein (test code = 2885-2) 7.0 6.5-8.1 [facility] CenterAlbumin2019-03-17 16:40:00* Test Item Value Reference Range Interpretation Comments Albumin (test code = 1751-7) 2.3 3.5-5.0 L [facility] CenterGlobulin2019-03-17 16:40:00* Test Item Value Reference Range Interpretation Comments Globulin (test code = 79340-9) 4.7 2.3-3.5 H [facility] CenterAlbumin/Globulin Smwts3209-41-24 16:40:00 * Test Item Value Reference Range Interpretation Comments Albumin/Globulin Ratio (test code = 1759-0) 0.5 0.8-2.0 L [facility] CenterAlkaline Yasnyeijubh4925-08-97 16:40:00* Test Item Value Reference Range Interpretation Comments Alkaline Phosphatase (test code = 6768-6) 75 40-150 [facility]Allenodium Enzmw5990-01-38 09:12:00* Test Item Value Reference Range Interpretation Comments Sodium Level (test code = 2951-2) 135 136-145 L [facility] CenterPotassium Yswcu0564-61-76 09:12:00* Test Item Value Reference Range Interpretation Comments Potassium Level (test code = 2823-3) 4.9 3.5-5.1 [facility] CenterChloride Peody3792-51-12 09:12:00* Test Item Value Reference Range Interpretation Comments Chloride Level (test code = 2075-0) 104 98-107 [facility] CenterCarbon Dioxide Ndond2389-28-71 09:12:00* Test Item Value Reference Range Interpretation Comments Carbon Dioxide Level (test code = 2028-9) 23 22-29 [facility] CenterAnion Wrp1720-79-18 09:12:00* Test Item Value Reference Range Interpretation Comments Anion Gap (test code = 74100-6) 12.9 8-16 [facility] CenterBlood Urea Fvnwtxjw6773-36-06 09:12:00* Test Item Value Reference Range Interpretation Comments Blood Urea Nitrogen (test code = 3094-0) 55 7-26 H [facility] CenterCreatinine2019-01-03 09:12:00* Test Item Value Reference Range Interpretation Comments Creatinine (test code = 2160-0) 6.32 0.57-1.11 H [facility] CenterBUN/Creatinine Nvipw6850-89-93 09:12:00* Test Item Value Reference Range Interpretation Comments BUN/Creatinine Ratio (test code = 3097-3) 9 6-25 [facility] CenterEstimat Glomerular Filtration Rate 2018-08-31 09:12:00* Test Item Value Reference Range Interpretation Comments Estimat Glomerular Filtration Rate (test code = 236315554) 6 >60 L Ranges were taken from the National Kidney Disease Education Program and the [facility] Kidney Foundation literature.Reference ranges:60 or greater: Aucfdm44-12 ( for 3 consecutive months): Chronic kidney disease 15 or less: Kidney failureWoodland Heights Medical CenterGlucose Vevit2499-39-96 09:12:00* Test Item Value Reference Range Interpretation Comments Glucose Level (test code = RLO7563) 108 74-118 [facility] CenterCalcium Nhblx8810-21-87 09:12:00* Test Item Value Reference Range Interpretation Comments Calcium Level (test code = 07009-2) 10.1 8.4-10.2 [facility] CenterWhite Blood Momzd8284-05-42 08:38:00* Test Item Value Reference Range Interpretation Comments White Blood Count (test code = 6690-2) 8.05 4.8-10.8 [facility] CenterRed Blood Szdak6474-36-34 08:38:00* Test Item Value Reference Range Interpretation Comments Red Blood Count (test code = 789-8) 3.30 3.6-5.1 L [facility] CenterHemoglobin2019-01-03 08:38:00* Test Item Value Reference Range Interpretation Comments Hemoglobin (test code = 17952-6) 9.1 12.0-16.0 L [facility] CenterHematocrit2019-01-03 08:38:00* Test Item Value Reference Range Interpretation Comments Hematocrit (test code = 4544-3) 27.7 34.2-44.1 L [facility] CenterMean Corpuscular Phdkcd7831-75-05 08:38:00* Test Item Value Reference Range Interpretation Comments Mean Corpuscular Volume (test code = 787-2) 83.9 81-99 [facility] CenterMean Corpuscular Jeugxomvcl8953-28-68 08:38:00* Test Item Value Reference Range Interpretation Comments Mean Corpuscular Hemoglobin (test code = 785-6) 27.6 28-32 L [facility] Corpuscular Hemoglobin Concent 2018-08-31 08:38:00* Test Item Value Reference Range Interpretation Comments Mean Corpuscular Hemoglobin Concent (test code = 786-4) 32.9 31-35 [facility] CenterRed Cell Distribution Vlqyg5183-13-93 08:38:00* Test Item Value Reference Range Interpretation Comments Red Cell Distribution Width (test code = 38797-9) 14.7 11.7 -14.4 H [facility] CenterPlatelet Buegc7634-81-03 08:38:00* Test Item Value Reference Range Interpretation Comments Platelet Count (test code = 777-3) 105 140-360 L [facility] CenterNeutrophils (%) (Auto)2018-08-31 08:38:00 * Test Item Value Reference Range Interpretation Comments Neutrophils (%) (Auto) (test code = 02606-2) 72.3 38.7-80.0 [facility] CenterLymphocytes (%) (Auto)2018-08-31 08:38:00 * Test Item Value Reference Range Interpretation Comments Lymphocytes (%) (Auto) (test code = 736-9) 16.6 18.0-39.1 L [facility] CenterMonocytes (%) (Auto)2018-08-31 08:38:00* Test Item Value Reference Range Interpretation Comments Monocytes (%) (Auto) (test code = 5905-5) 6.7 4.4-11.3 [facility] CenterEosinophils (%) (Auto)2018-08-31 08:38:00 * Test Item Value Reference Range Interpretation Comments Eosinophils (%) (Auto) (test code = 713-8) 3.2 0.0-6.0 [facility] CenterBasophils (%) (Auto)2018-08-31 08:38:00* Test Item Value Reference Range Interpretation Comments Basophils (%) (Auto) (test code = 706-2) 0.7 0.0-1.0 [facility] CenterIM GRANULOCYTES %2018-08-31 08:38:00* Test Item Value Reference Range Interpretation Comments IM GRANULOCYTES % (test code = IM GRANULOCYTES %) 0.5 0.0- 1.0 [facility] CenterNeutrophils # (Auto)2018-08-31 08:38:00* Test Item Value Reference Range Interpretation Comments Neutrophils # (Auto) (test code = 751-8) 5.8 2.1-6.9 [facility] CenterLymphocytes # (Auto)2018-08-31 08:38:00* Test Item Value Reference Range Interpretation Comments Lymphocytes # (Auto) (test code = 41758-6) 1.3 1.0-3.2 [facility] CenterMonocytes # (Auto)2018-08-31 08:38:00* Test Item Value Reference Range Interpretation Comments Monocytes # (Auto) (test code = 742-7) 0.5 0.2-0.8 [facility] CenterEosinophils # (Auto)2018-08-31 08:38:00* Test Item Value Reference Range Interpretation Comments Eosinophils # (Auto) (test code = 711-2) 0.3 0.0-0.4 [facility] CenterBasophils # (Auto)2018-08-31 08:38:00* Test Item Value Reference Range Interpretation Comments Basophils # (Auto) (test code = 704-7) 0.1 0.0-0.1 [facility] CenterAbsolute Immature Granulocyte (auto 2018-08-31 08:38:00* Test Item Value Reference Range Interpretation Comments Absolute Immature Granulocyte (auto (karo t code = Absolute Immature Granulocyte (auto) 0.04 0-0.1 [facility] CenterHepomona valley hospital medical [facility] B Surface Antibody, Quant 2018-08-29 08:17:00* Test Item Value Reference Range Interpretation Comments Hepatitis B Surface Antibody, Quant (test code = 5194-6) 863.2 Status of Immunity Anti-HBs Level Inconsistent with Immunity 0.0 - 9.9Consistent with Immunity >9.9[facility] B Core Total Gzeoskti3529-73-83 08:17:00* Test Item Value Reference Range Interpretation Comments Hepatitis B Core Total Antibody (test code = 15931-5) Negative [facility] B Surface Zkiqxqx4717-40-66 08:17:00* Test Item Value Reference Range Interpretation Comments Hepatitis B Surface Antigen (test code = 5196-1) Negative [facility] B Core IgM Hbhjkleh4305-79-74 08:17:00* Test Item Value Reference Range Interpretation Comments Hepatitis B Core IgM Antibody (test code = 23315-4) Negative [facility] B Surface Antibody, Quant 2018-08-29 08:17:00* Test Item Value Reference Range Interpretation Comments Hepatitis B Surface Antibody, Quant (test code = 5194-6) 863.2 Status of Immunity Anti-HBs Level Inconsistent with Immunity 0.0 - 9.9Consistent with Immunity >9.9[facility] B Core Total Ztfjipcb0936-87-39 08:17:00* Test Item Value Reference Range Interpretation Comments Hepatitis B Core Total Antibody (test code = 10469-0) Negative [facility] B Surface Ylpjjza3267-86-73 08:17:00* Test Item Value Reference Range Interpretation Comments Hepatitis B Surface Antigen (test code = 5196-1) Negative [facility] B Core IgM Mowxsoll9313-51-74 08:17:00* Test Item Value Reference Range Interpretation Comments Hepatitis B Core IgM Antibody (test code = 01905-2) Negative [facility] CenterTotal Klbvotopf8981-22-53 07:47:00* Test Item Value Reference Range Interpretation Comments Total Bilirubin (test code = 1975-2) 0.9 0.2-1.2 [facility] CenterAspartate Amino Transf (AST/SGOT) 2018-08-26 07:47:00* Test Item Value Reference Range Interpretation Comments Aspartate Amino Transf (AST/SGOT) (test code = Aspartate Amino Transf (AST/SGOT)) 21 5-34 [facility] CenterAlanine Aminotransferase (ALT/SGPT) 2018-08-26 07:47:00* Test Item Value Reference Range Interpretation Comments Alanine Aminotransferase (ALT/SGPT) (test code = 1742-6) 15 0-55 [facility] CenterTotal Tjjetii8157-99-47 07:47:00* Test Item Value Reference Range Interpretation Comments Total Protein (test code = 2885-2) 5.8 6.5-8.1 L [facility] CenterAlbumin2018-12-29 07:47:00* Test Item Value Reference Range Interpretation Comments Albumin (test code = 1751-7) 2.6 3.5-5.0 L [facility] CenterGlobulin2018-12-29 07:47:00* Test Item Value Reference Range Interpretation Comments Globulin (test code = 05598-0) 3.2 2.3-3.5 [facility] CenterAlbumin/Globulin Jrkfi5195-77-15 07:47:00 * Test Item Value Reference Range Interpretation Comments Albumin/Globulin Ratio (test code = 1759-0) 0.8 0.8-2.0 [facility] CenterAlkaline Anvitigsquw6571-64-28 07:47:00* Test Item Value Reference Range Interpretation Comments Alkaline Phosphatase (test code = 6768-6) 67 40-150 [facility]AllenPECIAL PROCED[facility] IN [facility] PZP4568-28-12 16:21:00 [place] [address] Patient Name: MIGUEL FONTENOT MR #: [id number] : 1935 Age/Sex: 83/F Req #: [id number] Adm Physician: RODNEY SHIPMAN MD Ordered by: ABRAM WADDELL, KAMI WADDELL Report #: [id number] Location: MED/SURG3 Room/Bed: [facility] Procedure: 1226-0 005 IR/SPECIAL PROCEDURE IN CUTTER WOODWIND REEDS Exam Date: Time: REPORT STATUS: Signed ADDENDUM #1 Addendum: The right internal jugular vein is patent. Ultrasound was utilized for vascular access. A permanent image wa s saved to the medical record. Procedure performed using maximal sterile ba rrier technique. Signed by: Dr. Clifton Friedman DO on 09/04/2018 10:23 AM ORIGINAL REPORT Procedure: Tunneled hemodialysis catheter p lacement dated 08/23/2018. Senior Clinical Sas Programmer: None. Medications: Versed 2 mg i ntravenous, [...] placed in the supine position on the fl uoroscopic table. 1% lidocaine was administered into [...] tract was serially di lated. Finally, a 16.5-[place] peel-away sheath was advanced over the wire und er fluoroscopic guidance. A 16 [place] Bard 23 cm tip to cuff split tip cathet er was then advanced through the peel-away sheath. This was noted to be too lo ng. At this point 2 Amplatz superstiff wires were then placed through the two lumens and a new 16 [place] Bard split tip 19 cm long tip [...] of a tunneled dual-lumen hemodi alysis catheter (16-[place] Bard split tip, 19-cm tip-cuff length) by a right i nternal jugular approach. The catheter is OK for immediate use. Signed b y: Dr. Clifton Friedman DO on 08/24/2018 4:30 PM Dictated By: CLIFTON FRIEDMAN DO 1023 Transcribed By: YAQUELIN on 08/31/18 1348 COPY TO: KAMI VALVERDE CHEST SINGLE (PORTABLE)2018-08-23 15:15:00 [place] [address] Patient Name: MIGUEL FNOTENOT MR #: [id number] : 1935 Age/Sex: 83/F Req #: [id number] Adm Physician: RODNEY SHIPMAN MD Ordered by: RODNEY SHIPMAN MD Report #: [id number] Location: [facility] Room/Bed: [address] Procedure: 1226- 0061 DX/CHEST SINGLE (PORTABLE) Exam Date: 08/23/18 Exam Time: 1435 REPORT STATUS: Sign ed PROCEDURE: CHEST SINGLE (PORTABLE) COMPARISON: [facility], DX, CHEST SINGLE (PORTABLE), 05/20/2018, 6:04. INDICATIONS: [...] DO 1515 Trans cribed By: PENELOPE on 08/23/180 COPY TO: RODNEY SHIPMAN MD Prothrombin Elcg4043-37-67 05:30:00* Test Item Value Reference Range Interpretation Comments Prothrombin Time (test code = 5902-2) 13.7 11.9-14.5 [facility] CenterProthromb Time International Ratio 2018-08-23 05:30:00* Test Item Value Reference Range Interpretation Comments Prothromb Time International Ratio (test code = 6301-6) 0.96 Oral Anticoagulant Therapy INR Values:1. Low Intensity Therapy 1.5 - 2.02 . Moderate Intensity Therapy 2.0 - 3.03. High Intensity Therapy(1) 2.5 - 3. 54. High Intensity Therapy(2) 3.0 - 4.05. Panic Value INR > 5.0 [facility] CenterProthrombin Apmo4510-23-44 05:30:00* Test Item Value Reference Range Interpretation Comments Prothrombin Time (test code = 5902-2) 13.7 11.9-14.5 [facility] CenterProthromb Time International Ratio 2018-08-23 05:30:00* Test Item Value Reference Range Interpretation Comments Prothromb Time International Ratio (test code = 6301-6) 0.96 Oral Anticoagulant Therapy INR Values:1. Low Intensity Therapy 1.5 - 2.02 . Moderate Intensity Therapy 2.0 - 3.03. High Intensity Therapy(1) 2.5 - 3. 54. High Intensity Therapy(2) 3.0 - 4.05. Panic Value INR > 5.0 [facility] CenterCT ABDOMEN/PELVIS JF6266-05-19 09:50:00 [place] [address] Patient Name: MIGUEL FONTENOT MR #: [id number] : 07/1935 Age/Sex: 83/F Req #: [id number] [facility] Physician: RODNEY SHIPMAN MD Ordered by: ABRAM WADDELL, KAMI WADDELL Report #: [id number] Location: [facility] Room/Bed: [place] [address] Procedure: 1225-[address]/CT ABDOMEN/PELVIS WO Exam [...] COPY TO: KAMI VALVERDE Activated Partial Thromboplast Pixf0478-10-10 18:07:00* Test Item Value Reference Range Interpretation Comments Activated Partial Thromboplast Time (test code = 40047-0) 29.2 23.8-35.5 [facility] CenterActivated Partial Thromboplast Time 2018-08-21 18:07:00* Test Item Value Reference Range Interpretation Comments Activated Partial Thromboplast Time (test code = 68118-5) 29.2 23.8-35.5 [facility] CenterHepatitis B Surface Antibody, Quant 2018-05-21 14:59:00* Test Item Value Reference Range Interpretation Comments Hepatitis B Surface Antibody, Quant (test code = 5194-6) 828.4 Immunity>9.9 Status of Immunity Anti-HBs Level Inconsistent with Immunity 0.0 - 9.9Consistent with Immunity >9.9[facility] B Core Total Gjprujpy2633-75-20 14:59:00* Test Item Value Reference Range Interpretation Comments Hepatitis B Core Total Antibody (test code = 19227-7) Negative Negative Performed at: - Lab[address] [id number] Director: Winston Mcmillan MD, Phone: [phone] Heights Medical CenterHepomona valley hospital [facility] Vqwqwto6783-82-49 14:59:00* Test Item Value Reference Range Interpretation Comments Hepatitis B Surface Antigen (test code = 5196-1) Negative Negat bhavna [facility] CenterWhite Blood Tmwny7879-25-26 05:13:00* Test Item Value Reference Range Interpretation Comments White Blood Count (test code = 6690-2) 12.40 4.8-10.8 H VERIFIED PREVIOUS RESULTSWoodland Heights Medical CenterRed Blood Count 2018-05-21 05:13:00* Test Item Value Reference Range Interpretation Comments Red Blood Count (test code = 789-8) 2.64 3.6-5.1 L [facility] CenterHemoglobin2018-09-23 05:13:00* Test Item Value Reference Range Interpretation Comments Hemoglobin (test code = 70290-3) 8.0 12.0-16.0 L [facility] CenterHematocrit2018-09-23 05:13:00* Test Item Value Reference Range Interpretation Comments Hematocrit (test code = 4544-3) 25.1 34.2-44.1 L [facility] CenterMean Corpuscular Uhypje3343-93-27 05:13:00* Test Item Value Reference Range Interpretation Comments Mean Corpuscular Volume (test code = 787-2) 95.1 81-99 [facility] CenterMean Corpuscular Twqpqvlgcq8152-60-34 05:13:00* Test Item Value Reference Range Interpretation Comments Mean Corpuscular Hemoglobin (test code = 785-6) 30.3 28-32 [facility] CenterMean Corpuscular Hemoglobin Concent 2018-05-21 05:13:00* Test Item Value Reference Range Interpretation Comments Mean Corpuscular Hemoglobin Concent (test code = 786-4) 31.9 31-35 [facility] CenterRed Cell Distribution Diebe9464-13-34 05:13:00* Test Item Value Reference Range Interpretation Comments Red Cell Distribution Width (test code = 24461-7) 17.4 11.7 -14.4 H [facility] CenterPlatelet Udabj6370-95-77 05:13:00* Test Item Value Reference Range Interpretation Comments Platelet Count (test code = 777-3) 192 140-360 VERIFIED PREVIOUS RESULTSWoodland Heights Medical CenterNeutrophils (%) (Auto)2018-05-21 05:13:00* Test Item Value Reference Range Interpretation Comments Neutrophils (%) (Auto) (test code = 03760-6) 83.1 38.7-80.0 H [facility] CenterLymphocytes (%) (Auto)2018-05-21 05:13:00 * Test Item Value Reference Range Interpretation Comments Lymphocytes (%) (Auto) (test code = 736-9) 10.2 18.0-39.1 L [facility] CenterMonocytes (%) (Auto)2018-05-21 05:13:00* Test Item Value Reference Range Interpretation Comments Monocytes (%) (Auto) (test code = 5905-5) 5.7 4.4-11.3 [facility] CenterEosinophils (%) (Auto)2018-05-21 05:13:00 * Test Item Value Reference Range Interpretation Comments Eosinophils (%) (Auto) (test code = 713-8) 0.2 0.0-6.0 [facility] CenterBasophils (%) (Auto)2018-05-21 05:13:00* Test Item Value Reference Range Interpretation Comments Basophils (%) (Auto) (test code = 706-2) 0.2 0.0-1.0 [facility] CenterIM GRANULOCYTES %2018-05-21 05:13:00* Test Item Value Reference Range Interpretation Comments IM GRANULOCYTES % (test code = IM GRANULOCYTES %) 0.6 0.0- 1.0 [facility] CenterNeutrophils # (Auto)2018-05-21 05:13:00* Test Item Value Reference Range Interpretation Comments Neutrophils # (Auto) (test code = 751-8) 10.3 2.1-6.9 H [facility] CenterLymphocytes # (Auto)2018-05-21 05:13:00* Test Item Value Reference Range Interpretation Comments Lymphocytes # (Auto) (test code = 83257-4) 1.3 1.0-3.2 [facility] CenterMonocytes # (Auto)2018-05-21 05:13:00* Test Item Value Reference Range Interpretation Comments Monocytes # (Auto) (test code = 742-7) 0.7 0.2-0.8 [facility] CenterEosinophils # (Auto)2018-05-21 05:13:00* Test Item Value Reference Range Interpretation Comments Eosinophils # (Auto) (test code = 711-2) 0.0 0.0-0.4 [facility] CenterBasophils # (Auto)2018-05-21 05:13:00* Test Item Value Reference Range Interpretation Comments Basophils # (Auto) (test code = 704-7) 0.0 0.0-0.1 [facility] CenterAbsolute Immature Granulocyte (auto 2018-05-21 05:13:00* Test Item Value Reference Range Interpretation Comments Absolute Immature Granulocyte (auto (karo t code = Absolute Immature Granulocyte (auto) 0.08 0-0.1 [facility] CenterBlood Gyumqqt3357-88-57 12:15:00* Test Item Value Reference Range Interpretation Comments Blood Culture (test code = 51309631) NO GROWTH AFTER 5 DAYS, FINAL REPORT [facility] Lnlnsum0559-90-22 12:15:00* Test Item Value Reference Range Interpretation Comments Blood Culture (test code = 82531626) NO GROWTH AFTER 5 DAYS, FINAL REPORT [facility] CenterCHEST SINGLE (PORTABLE)2018-05-20 06:33:00 [facility] [address] [place] [address] Patient Name: MIGUEL FONTENOT MR #: [id number] : 1935 Age/Sex: 82/F Req #: [id number] Adm Physician: CHRISTEL HATHAWAY MD Ordered by: ZEINA ALBRIGHT NP Report #: [id number] Location: MED/SURG2 Room/Bed: [facility] Procedure: [id number] DX/CHEST SINGLE (PORTABLE) Exam Date: 05/20/18 E xam Time: 529 REPORT STATUS: Signed CHEST SINGLE (PORTABLE), 05/20/2018 7:00 AM Technique: CHEST SINGLE (PORTABLE) Comparison: 07/03/2017 Clini daria history: Dizziness Findings: See Impression Impression: 1. Sta ble cardiomediastinal silhouette. Aortic calcifications. 2. Apparent lingular opacity likely artifact of rotation. No consolidation or overt edema. 3. No effusion or pneumothorax. Signed by: Dr Deshawn Apple MD on 05/20/2018 6:35 AM Dictated By: DESHAWN APPLE MD Transcribed By: YAQUELIN on 05/20/1835 COPY T O: ZEINA ALBRIGHT HEEL SEAT FITTER Sodium Jmelv2902-69-01 05:27:00* Test Item Value Reference Range Interpretation Comments Sodium Level (test code = 2951-2) 139 136-145 [facility] CenterPotassium Kruzc1053-96-25 05:27:00* Test Item Value Reference Range Interpretation Comments Potassium Level (test code = 2823-3) 3.6 3.5-5.1 [facility] CenterChloride Cvydz4161-48-84 05:27:00* Test Item Value Reference Range Interpretation Comments Chloride Level (test code = 2075-0) 104 98-107 [facility] CenterCarbon Dioxide Hweyp2564-32-24 05:27:00* Test Item Value Reference Range Interpretation Comments Carbon Dioxide Level (test code = 2028-9) 22 22-29 [facility] CenterAnion Akq7853-83-68 05:27:00* Test Item Value Reference Range Interpretation Comments Anion Gap (test code = 85314-9) 16.6 8-16 H [facility] CenterBlood Urea Zlyujxmm3810-39-75 05:27:00* Test Item Value Reference Range Interpretation Comments Blood Urea Nitrogen (test code = 3094-0) 20 7-26 [facility] CenterCreatinine2018-09-22 05:27:00* Test Item Value Reference Range Interpretation Comments Creatinine (test code = 2160-0) 5.17 0.57-1.11 H [facility] CenterBUN/Creatinine Ywlua3283-21-42 05:27:00* Test Item Value Reference Range Interpretation Comments BUN/Creatinine Ratio (test code = 3097-3) 4 6-25 L [facility] CenterEstimat Glomerular Filtration Rate 2018-05-20 05:27:00* Test Item Value Reference Range Interpretation Comments Estimat Glomerular Filtration Rate (test code = 256675707) 8 >60 L Ranges were taken from the National Kidney Disease Education Program and the [facility] literature.Reference ranges:60 or greater: Qjijdl87-91 ( for 3 consecutive months): Chronic kidney disease 15 or less: Kidney failureWoodland Heights Medical CenterGlucose Zyewi5734-81-60 05:27:00* Test Item Value Reference Range Interpretation Comments Glucose Level (test code = TVW1235) 194 74-118 H [facility] CenterCalcium Gepul9974-46-87 05:27:00* Test Item Value Reference Range Interpretation Comments Calcium Level (test code = 88924-2) 8.3 8.4-10.2 L [facility] CenterCreatine Kinase YD9332-49-79 11:10:00* Test Item Value Reference Range Interpretation Comments Creatine Kinase MB (test code = 23397-6) 0.70 0-5.0 [facility] B9685-76-55 11:10:00* Test Item Value Reference Range Interpretation Comments Troponin I (test code = OSS1655) 0.006 0-0.300 [facility] CenterCreatine Kinase QG7560-34-11 11:10:00* Test Item Value Reference Range Interpretation Comments Creatine Kinase MB (test code = 00502-3) 0.70 0-5.0 [facility] CenterTroponin B1800-99-73 11:10:00* Test Item Value Reference Range Interpretation Comments Troponin I (test code = OSW9805) 0.006 0-0.300 [facility] CenterCreatine Kinase CJ6305-27-21 11:10:00* Test Item Value Reference Range Interpretation Comments Creatine Kinase MB (test code = 97852-0) 0.70 0-5.0 [facility] U3843-50-45 11:10:00* Test Item Value Reference Range Interpretation Comments Troponin I (test code = CBY2422) 0.006 0-0.300 [facility] CenterMagnesium Myvig8852-67-28 11:07:00* Test Item Value Reference Range Interpretation Comments Magnesium Level (test code = 62425-2) 1.7 1.3-2.1 [facility] CenterTotal Simfmowfh0046-33-23 11:07:00* Test Item Value Reference Range Interpretation Comments Total Bilirubin (test code = 1975-2) 0.9 0.2-1.2 [facility] CenterAspartate Amino Transf (AST/SGOT) 2018-05-19 11:07:00* Test Item Value Reference Range Interpretation Comments Aspartate Amino Transf (AST/SGOT) (test code = Aspartate Amino Transf (AST/SGOT)) 18 5-34 [facility] CenterAlanine Aminotransferase (ALT/SGPT) 2018-05-19 11:07:00* Test Item Value Reference Range Interpretation Comments Alanine Aminotransferase (ALT/SGPT) (test code = 1742-6) 12 0-55 [facility] CenterTotal Gjamblo9435-76-41 11:07:00* Test Item Value Reference Range Interpretation Comments Total Protein (test code = 2885-2) 6.5 6.5-8.1 [facility] CenterAlbumin2018-09-21 11:07:00* Test Item Value Reference Range Interpretation Comments Albumin (test code = 1751-7) 2.8 3.5-5.0 L [facility] CenterGlobulin2018-09-21 11:07:00* Test Item Value Reference Range Interpretation Comments Globulin (test code = 65318-8) 3.7 2.3-3.5 H [facility] CenterAlbumin/Globulin Gvtwr1041-42-39 11:07:00 * Test Item Value Reference Range Interpretation Comments Albumin/Globulin Ratio (test code = 1759-0) 0.8 0.8-2.0 [facility] CenterAlkaline Cndtbltqxmr4316-62-14 11:07:00* Test Item Value Reference Range Interpretation Comments Alkaline Phosphatase (test code = 6768-6) 109 40-150 [facility] CenterCreatine Mtnqpt3836-49-49 11:07:00* Test Item Value Reference Range Interpretation Comments Creatine Kinase (test code = 2157-6) 44 29-168 [facility] CenterMagnesium Tavqd4279-05-63 11:07:00* Test Item Value Reference Range Interpretation Comments Magnesium Level (test code = 19598-4) 1.7 1.3-2.1 [facility] CenterCreatine Svrqbr5626-31-36 11:07:00* Test Item Value Reference Range Interpretation Comments Creatine Kinase (test code = 2157-6) 44 29-168 [facility] CenterMagnesium Kwrjv1154-88-42 11:07:00* Test Item Value Reference Range Interpretation Comments Magnesium Level (test code = 30319-9) 1.7 1.3-2.1 [facility] CenterCreatine Lnxloq1673-16-03 11:07:00* Test Item Value Reference Range Interpretation Comments Creatine Kinase (test code = 2157-6) 44 29-168 [facility]2018-09-21 11:06:00* Test Item Value Reference Range Interpretation Comments Iron Level (test code = 2498-4) 84 50-170 [facility] Iron Binding Brpnkrbm0971-23-37 11:06:00* Test Item Value Reference Range Interpretation Comments Total Iron Binding Capacity (test code = 2500-7) 280 261-4 78 [facility] Iron Ranacofoik6984-21-37 11:06:00* Test Item Value Reference Range Interpretation Comments Percent Iron Saturation (test code = 2502-3) 30 15-50 [facility] CenterTransferrin2018-09-21 11:06:00* Test Item Value Reference Range Interpretation Comments Transferrin (test code = 3034-6) 200 180-382 [facility]2018-09-21 11:06:00* Test Item Value Reference Range Interpretation Comments Iron Level (test code = 2498-4) 84 50-170 [facility] Iron Binding Efnqhewb1014-52-36 11:06:00* Test Item Value Reference Range Interpretation Comments Total Iron Binding Capacity (test code = 2500-7) 280 261-4 78 [facility] Iron Kdmgpvebep6994-68-61 11:06:00* Test Item Value Reference Range Interpretation Comments Percent Iron Saturation (test code = 2502-3) 30 15-50 [facility] CenterTransferrin2018-09-21 11:06:00* Test Item Value Reference Range Interpretation Comments Transferrin (test code = 3034-6) 200 180-382 [facility]2018-09-21 11:06:00* Test Item Value Reference Range Interpretation Comments Iron Level (test code = 2498-4) 84 50-170 [facility] Iron Binding Iavhghuz1259-01-42 11:06:00* Test Item Value Reference Range Interpretation Comments Total Iron Binding Capacity (test code = 2500-7) 280 261-4 78 [facility] CenterPercent Iron Ztlqqkfdlc7151-84-82 11:06:00* Test Item Value Reference Range Interpretation Comments Percent Iron Saturation (test code = 2502-3) 30 15-50 [facility] CenterTransferrin2018-09-21 11:06:00* Test Item Value Reference Range Interpretation Comments Transferrin (test code = 3034-6) 200 180-382 [facility] CenterProthrombin Tzox2368-70-08 11:05:00* Test Item Value Reference Range Interpretation Comments Prothrombin Time (test code = 5902-2) 14.2 11.9-14.5 [facility] CenterProthromb Time International Ratio 2018-05-19 11:05:00* Test Item Value Reference Range Interpretation Comments Prothromb Time International Ratio (test code = 6301-6) 1.01 Oral Anticoagulant Therapy INR Values:1. Low Intensity Therapy 1.5 - 2.02 . Moderate Intensity Therapy 2.0 - 3.03. High Intensity Therapy(1) 2.5 - 3. 54. High Intensity Therapy(2) 3.0 - 4.05. Panic Value INR > 5.0 [facility] CenterActivated Partial Thromboplast Time 2018-05-19 11:05:00* Test Item Value Reference Range Interpretation Comments Activated Partial Thromboplast Time (test code = 25822-6) 28.6 23.8-35.5 [facility] CenterUrine LEQ9659-31-48 10:59:00* Test Item Value Reference Range Interpretation Comments Urine WBC (test code = 5821-4) NONE 0-5 [facility] CenterUrine WDT7612-06-86 10:59:00* Test Item Value Reference Range Interpretation Comments Urine RBC (test code = 74731-0) NONE 0-5 [facility] CenterUrine Rpczzqem7832-53-00 10:59:00* Test Item Value Reference Range Interpretation Comments Urine Bacteria (test code = 93414-0) NONE NONE [facility] CenterUrine Epithelial Lczrz1319-73-47 10:59:00 * Test Item Value Reference Range Interpretation Comments Urine Epithelial Cells (test code = 49423-9) MODERATE NONE [facility] CenterUrine YEW8908-58-09 10:59:00* Test Item Value Reference Range Interpretation Comments Urine WBC (test code = 5821-4) NONE 0-5 [facility] CenterUrine VQK0022-77-67 10:59:00* Test Item Value Reference Range Interpretation Comments Urine RBC (test code = 41013-8) NONE 0-5 [facility] CenterUrine Cwdnhrhj3369-16-42 10:59:00* Test Item Value Reference Range Interpretation Comments Urine Bacteria (test code = 76166-1) NONE NONE [facility] CenterUrine Epithelial Pcuwd2841-31-34 10:59:00 * Test Item Value Reference Range Interpretation Comments Urine Epithelial Cells (test code = 54252-1) MODERATE NONE [facility] CenterUrine HRW3623-66-36 10:59:00* Test Item Value Reference Range Interpretation Comments Urine WBC (test code = 5821-4) NONE 0-5 [facility] CenterUrine OFE9023-69-61 10:59:00* Test Item Value Reference Range Interpretation Comments Urine RBC (test code = 04117-3) NONE 0-5 [facility] CenterUrine Rminpzzg9955-35-40 10:59:00* Test Item Value Reference Range Interpretation Comments Urine Bacteria (test code = 32352-8) NONE NONE [facility] CenterUrine Epithelial Kmhlb0124-10-73 10:59:00 * Test Item Value Reference Range Interpretation Comments Urine Epithelial Cells (test code = 82154-4) MODERATE NONE [facility] CenterUrine Rnkgx0724-24-11 10:51:00* Test Item Value Reference Range Interpretation Comments Urine Color (test code = 5778-6) YELLOW YELLOW [facility] CenterUrine Jetlkty9072-64-04 10:51:00* Test Item Value Reference Range Interpretation Comments Urine Clarity (test code = 01702-4) SL CLOUDY CLEAR [facility] CenterUrine Specific Brjeskx4233-45-81 10:51:00 * Test Item Value Reference Range Interpretation Comments Urine Specific [place] (test code = 5811-5) 1.010 1.010-1.02 5 [facility] CenterUrine rP5304-44-91 10:51:00* Test Item Value Reference Range Interpretation Comments Urine pH (test code = 20309-4) 7 5-7 [facility] CenterUrine Leukocyte Ozuxwngi9392-72-09 10:51:00* Test Item Value Reference Range Interpretation Comments Urine Leukocyte Esterase (test code = 5799-2) NEGATIVE NEGATIVE [facility] Vdpgojr3940-55-73 10:51:00* Test Item Value Reference Range Interpretation Comments Urine Nitrite (test code = 58295-7) NEGATIVE NEGATIVE [facility] CenterUrine Xxqcnde6170-34-14 10:51:00* Test Item Value Reference Range Interpretation Comments Urine Protein (test code = 5804-0) 2+ NEGATIVE H [facility] Glucose (UA)2018-05-19 10:51:00* Test Item Value Reference Range Interpretation Comments Urine Glucose (UA) (test code = 2349-9) NEGATIVE NEGATIVE [facility] CenterUrine Meaoseh2707-67-82 10:51:00* Test Item Value Reference Range Interpretation Comments Urine Ketones (test code = 36803-2) NEGATIVE NEGATIVE [facility] Vnxkqimxmchw6210-07-53 10:51:00* Test Item Value Reference Range Interpretation Comments Urine Urobilinogen (test code = 05506-2) 0.2 0.2-1 [facility] CenterUrine Wpjzrjpfo3740-52-69 10:51:00* Test Item Value Reference Range Interpretation Comments Urine Bilirubin (test code = 1978-6) NEGATIVE NEGATIVE [facility] CenterUrine Tzqlh2331-14-27 10:51:00* Test Item Value Reference Range Interpretation Comments Urine Blood (test code = 31295-5) NEGATIVE NEGATIVE [facility] CenterUrine Ogtsm1034-54-46 10:51:00* Test Item Value Reference Range Interpretation Comments Urine Color (test code = 5778-6) YELLOW YELLOW [facility] CenterUrine Xgafyzo3710-00-79 10:51:00* Test Item Value Reference Range Interpretation Comments Urine Clarity (test code = 65333-3) SL CLOUDY CLEAR [facility] CenterUrine Specific Kpohjys3778-59-69 10:51:00 * Test Item Value Reference Range Interpretation Comments Urine Specific [place] (test code = 5811-5) 1.010 1.010-1.02 5 [facility] CenterUrine eR3227-65-92 10:51:00* Test Item Value Reference Range Interpretation Comments Urine pH (test code = 33800-7) 7 5-7 [facility] CenterUrine Leukocyte Qjugfwwt2659-61-57 10:51:00* Test Item Value Reference Range Interpretation Comments Urine Leukocyte Esterase (test code = 5799-2) NEGATIVE NEGATIVE [facility] Ijwbrmc3893-74-89 10:51:00* Test Item Value Reference Range Interpretation Comments Urine Nitrite (test code = 82020-3) NEGATIVE NEGATIVE [facility] Czoxonn1116-88-43 10:51:00* Test Item Value Reference Range Interpretation Comments Urine Protein (test code = 5804-0) 2+ NEGATIVE H [facility] Glucose (UA)2018-05-19 10:51:00* Test Item Value Reference Range Interpretation Comments Urine Glucose (UA) (test code = 2349-9) NEGATIVE NEGATIVE [facility] Qwjqdlj5645-47-43 10:51:00* Test Item Value Reference Range Interpretation Comments Urine Ketones (test code = 91406-3) NEGATIVE NEGATIVE [facility] Phrwrnbxsgqe6899-00-43 10:51:00* Test Item Value Reference Range Interpretation Comments Urine Urobilinogen (test code = 94908-6) 0.2 0.2-1 [facility] CenterUrine Eblaoquky4444-55-10 10:51:00* Test Item Value Reference Range Interpretation Comments Urine Bilirubin (test code = 1978-6) NEGATIVE NEGATIVE [facility] Taylf1717-98-44 10:51:00* Test Item Value Reference Range Interpretation Comments Urine Blood (test code = 98940-5) NEGATIVE NEGATIVE [facility] CenterUrine Vanqj5565-98-13 10:51:00* Test Item Value Reference Range Interpretation Comments Urine Color (test code = 5778-6) YELLOW YELLOW [facility] CenterUrine Nwnlggh5368-22-80 10:51:00* Test Item Value Reference Range Interpretation Comments Urine Clarity (test code = 08218-8) SL CLOUDY CLEAR [facility] CenterUrine Specific Bshwhte0832-37-76 10:51:00 * Test Item Value Reference Range Interpretation Comments Urine Specific [place] (test code = 5811-5) 1.010 1.010-1.02 5 [facility] CenterUrine pN9291-53-02 10:51:00* Test Item Value Reference Range Interpretation Comments Urine pH (test code = 04718-2) 7 5-7 [facility] CenterUrine Leukocyte Eutjextv4779-86-55 10:51:00* Test Item Value Reference Range Interpretation Comments Urine Leukocyte Esterase (test code = 5799-2) NEGATIVE NEGATIVE [facility] CenterUrine Sohebev2110-31-32 10:51:00* Test Item Value Reference Range Interpretation Comments Urine Nitrite (test code = 35143-2) NEGATIVE NEGATIVE [facility] CenterUrine Etjpvsu4210-01-43 10:51:00* Test Item Value Reference Range Interpretation Comments Urine Protein (test code = 5804-0) 2+ NEGATIVE H [facility] CenterUrine Glucose (UA)2018-05-19 10:51:00* Test Item Value Reference Range Interpretation Comments Urine Glucose (UA) (test code = 2349-9) NEGATIVE NEGATIVE [facility] CenterUrine Tvtfzrl0839-01-34 10:51:00* Test Item Value Reference Range Interpretation Comments Urine Ketones (test code = 48001-1) NEGATIVE NEGATIVE [facility] CenterUrine Khfqexgajwol4451-41-32 10:51:00* Test Item Value Reference Range Interpretation Comments Urine Urobilinogen (test code = 16932-3) 0.2 0.2-1 [facility] CenterUrine Tlmgnwxdm2806-74-40 10:51:00* Test Item Value Reference Range Interpretation Comments Urine Bilirubin (test code = 1978-6) NEGATIVE NEGATIVE [facility] CenterUrine Xcdvs5014-55-31 10:51:00* Test Item Value Reference Range Interpretation Comments Urine Blood (test code = 17413-7) NEGATIVE NEGATIVE [facility] CenterBlood Gpgkwxf9655-32-17 10:07:00* Test Item Value Reference Range Interpretation Comments Blood Culture (test code = 19345560) NO GROWTH AFTER 72 HOURS [facility] CenterPotassium Siqlc8312-91-69 15:49:00* Test Item Value Reference Range Interpretation Comments Potassium Level (test code = 2823-3) 4.2 3.5-5.1 [facility] Viobb9992-98-11 05:45:00* Test Item Value Reference Range Interpretation Comments Sodium Level (test code = 2951-2) 144 136-145 [facility] CenterChloride Zgyhb3836-72-59 05:45:00* Test Item Value Reference Range Interpretation Comments Chloride Level (test code = 2075-0) 107 98-107 [facility] CenterCarbon Dioxide Onhgx6495-95-93 05:45:00* Test Item Value Reference Range Interpretation Comments Carbon Dioxide Level (test code = 2028-9) 27 22-29 [facility] CenterAnion Lrt7780-74-28 05:45:00* Test Item Value Reference Range Interpretation Comments Anion Gap (test code = 66893-3) 12.9 8-16 [facility] CenterBlood Urea Vbcpkgjh5345-24-21 05:45:00* Test Item Value Reference Range Interpretation Comments Blood Urea Nitrogen (test code = 3094-0) 15 7-26 [facility] CenterCreatinine2018-09-19 05:45:00* Test Item Value Reference Range Interpretation Comments Creatinine (test code = 2160-0) 4.75 0.57-1.11 [facility] CenterBUN/Creatinine Ibhrj6792-05-72 05:45:00* Test Item Value Reference Range Interpretation Comments BUN/Creatinine Ratio (test code = 3097-3) 3 6-25 L [facility] CenterEstimat Glomerular Filtration Rate 2018-05-17 05:45:00* Test Item Value Reference Range Interpretation Comments Estimat Glomerular Filtration Rate (test code = 057784566) 9 >60 L Ranges were taken from the National Kidney Disease Education Program and the [facility] Kidney Foundation literature.Reference ranges:60 or greater: Lcxdtj21-62 ( for 3 consecutive months): Chronic kidney disease 15 or less: Kidney failureWoodland Heights Medical CenterGlucose Mebet9945-53-45 05:45:00* Test Item Value Reference Range Interpretation Comments Glucose Level (test code = LUG1012) 123 74-118 H [facility] CenterCalcium Gwdgo3903-71-82 05:45:00* Test Item Value Reference Range Interpretation Comments Calcium Level (test code = 85550-1) 8.3 8.4-10.2 L [facility] CenterWhite Blood Mtdty2937-54-84 05:31:00* Test Item Value Reference Range Interpretation Comments White Blood Count (test code = 6690-2) 5.15 4.8-10.8 [facility] CenterRed Blood Opivi3623-01-32 05:31:00* Test Item Value Reference Range Interpretation Comments Red Blood Count (test code = 789-8) 2.43 3.6-5.1 L [facility] CenterHemoglobin2018-09-19 05:31:00* Test Item Value Reference Range Interpretation Comments Hemoglobin (test code = 32456-2) 7.5 12.0-16.0 L [facility] CenterHematocrit2018-09-19 05:31:00* Test Item Value Reference Range Interpretation Comments Hematocrit (test code = 4544-3) 22.7 34.2-44.1 L Results called to BLANCHE GUTIÉRREZ RN at 0529 on 05/17/18 by Finn Alexis. RB [place]. [facility] CenterMean Corpuscular Mplzkf5376-55-24 05:31:00* Test Item Value Reference Range Interpretation Comments Mean Corpuscular Volume (test code = 787-2) 93.4 81-99 [facility] CenterMean Corpuscular Mizrrsoqgq8817-31-61 05:31:00* Test Item Value Reference Range Interpretation Comments Mean Corpuscular Hemoglobin (test code = 785-6) 30.9 28-32 [facility] CenterMean Corpuscular Hemoglobin Concent 2018-05-17 05:31:00* Test Item Value Reference Range Interpretation Comments Mean Corpuscular Hemoglobin Concent (test code = 786-4) 33.0 31-35 [facility] CenterRed Cell Distribution Zbsoi3411-49-77 05:31:00* Test Item Value Reference Range Interpretation Comments Red Cell Distribution Width (test code = 83983-3) 15.3 11.7 -14.4 H [facility] CenterPlatelet Zwiyk2569-46-36 05:31:00* Test Item Value Reference Range Interpretation Comments Platelet Count (test code = 777-3) 185 140-360 [facility] CenterNeutrophils (%) (Auto)2018-05-17 05:31:00 * Test Item Value Reference Range Interpretation Comments Neutrophils (%) (Auto) (test code = 28600-7) 63.6 38.7-80.0 [facility] CenterLymphocytes (%) (Auto)2018-05-17 05:31:00 * Test Item Value Reference Range Interpretation Comments Lymphocytes (%) (Auto) (test code = 736-9) 18.3 18.0-39.1 [facility] CenterMonocytes (%) (Auto)2018-05-17 05:31:00* Test Item Value Reference Range Interpretation Comments Monocytes (%) (Auto) (test code = 5905-5) 13.6 4.4-11.3 H [facility] CenterEosinophils (%) (Auto)2018-05-17 05:31:00 * Test Item Value Reference Range Interpretation Comments Eosinophils (%) (Auto) (test code = 713-8) 3.5 0.0-6.0 [facility] CenterBasophils (%) (Auto)2018-05-17 05:31:00* Test Item Value Reference Range Interpretation Comments Basophils (%) (Auto) (test code = 706-2) 0.6 0.0-1.0 [facility] CenterIM GRANULOCYTES %2018-05-17 05:31:00* Test Item Value Reference Range Interpretation Comments IM GRANULOCYTES % (test code = IM GRANULOCYTES %) 0.4 0.0- 1.0 [facility] CenterNeutrophils # (Auto)2018-05-17 05:31:00* Test Item Value Reference Range Interpretation Comments Neutrophils # (Auto) (test code = 751-8) 3.3 2.1-6.9 [facility] CenterLymphocytes # (Auto)2018-05-17 05:31:00* Test Item Value Reference Range Interpretation Comments Lymphocytes # (Auto) (test code = 70632-4) 0.9 1.0-3.2 L [facility] CenterMonocytes # (Auto)2018-05-17 05:31:00* Test Item Value Reference Range Interpretation Comments Monocytes # (Auto) (test code = 742-7) 0.7 0.2-0.8 [facility] CenterEosinophils # (Auto)2018-05-17 05:31:00* Test Item Value Reference Range Interpretation Comments Eosinophils # (Auto) (test code = 711-2) 0.2 0.0-0.4 [facility] CenterBasophils # (Auto)2018-05-17 05:31:00* Test Item Value Reference Range Interpretation Comments Basophils # (Auto) (test code = 704-7) 0.0 0.0-0.1 [facility] CenterAbsolute Immature Granulocyte (auto 2018-05-17 05:31:00* Test Item Value Reference Range Interpretation Comments Absolute Immature Granulocyte (auto (karo t code = Absolute Immature Granulocyte (auto) 0.02 0-0.1 [facility] CenterVitamin B12 Espkn1183-61-59 10:46:00* Test Item Value Reference Range Interpretation Comments Vitamin B12 Level (test code = 32340-3) 642 857-471 [facility] CenterFolate2018-09-18 10:46:00* Test Item Value Reference Range Interpretation Comments Folate (test code = 2284-8) 7.3 7.0-15.4 [facility] CenterVitamin B12 Rqirq1775-29-03 10:46:00* Test Item Value Reference Range Interpretation Comments Vitamin B12 Level (test code = 51626-6) 539 213-816 [facility] CenterFolate2018-09-18 10:46:00* Test Item Value Reference Range Interpretation Comments Folate (test code = 2284-8) 7.3 7.0-15.4 [facility] CenterVitamin B12 Arvdc0183-33-37 10:46:00* Test Item Value Reference Range Interpretation Comments Vitamin B12 Level (test code = 86440-6) 539 213-816 [facility] CenterFolate2018-09-18 10:46:00* Test Item Value Reference Range Interpretation Comments Folate (test code = 2284-8) 7.3 7.0-15.4 [facility] CenterVitamin B12 Kdgvm4689-07-00 10:46:00* Test Item Value Reference Range Interpretation Comments Vitamin B12 Level (test code = 60002-1) 539 213-816 [facility] CenterFolate2018-09-18 10:46:00* Test Item Value Reference Range Interpretation Comments Folate (test code = 2284-8) 7.3 7.0-15.4 [facility] CenterIron Awinw2358-46-73 10:12:00* Test Item Value Reference Range Interpretation Comments Iron Level (test code = 2498-4) 37 50-170 L [facility] CenterTotal Iron Binding Npzhyflc6623-51-89 10:12:00* Test Item Value Reference Range Interpretation Comments Total Iron Binding Capacity (test code = 2500-7) 217 261-4 78 L [facility] CenterPercent Iron Fclbodvuex0287-25-95 10:12:00* Test Item Value Reference Range Interpretation Comments Percent Iron Saturation (test code = 2502-3) 17 15-50 [facility] CenterTransferrin2018-09-18 10:12:00* Test Item Value Reference Range Interpretation Comments Transferrin (test code = 3034-6) 155 180-382 L [facility] CenterPercent Reticulocyte Jgxwa8099-71-04 09:58:00* Test Item Value Reference Range Interpretation Comments Percent Reticulocyte Count (test code = 28708-2) 4.5 0.8-2 .2 H [facility] CenterPercent Reticulocyte Wdzwf0029-23-61 09:58:00* Test Item Value Reference Range Interpretation Comments Percent Reticulocyte Count (test code = 75654-3) 4.5 0.8-2 .2 H [facility] CenterPercent Reticulocyte Eldbu7688-62-93 09:58:00* Test Item Value Reference Range Interpretation Comments Percent Reticulocyte Count (test code = 36091-7) 4.5 0.8-2 .2 H [facility] CenterPercent Reticulocyte Xptng2139-47-56 09:58:00* Test Item Value Reference Range Interpretation Comments Percent Reticulocyte Count (test code = 64604-9) 4.5 0.8-2 .2 H [facility] CenterUrine COD6354-50-06 12:46:00* Test Item Value Reference Range Interpretation Comments Urine WBC (test code = 5821-4) 0-5 0-5 [facility] CenterUrine OWO1485-41-92 12:46:00* Test Item Value Reference Range Interpretation Comments Urine RBC (test code = 55146-8) 0-5 0-5 [facility] CenterUrine Tpixdevm5644-83-37 12:46:00* Test Item Value Reference Range Interpretation Comments Urine Bacteria (test code = 14873-0) NONE NONE [facility] CenterUrine Epithelial Wtdmm9843-45-55 12:46:00 * Test Item Value Reference Range Interpretation Comments Urine Epithelial Cells (test code = 71286-6) MANY NONE [facility] CenterUrine Transitional Epithelial Cells 2018-05-15 12:46:00* Test Item Value Reference Range Interpretation Comments Urine Transitional Epithelial Cells (test code = 8249-5) MANY NONE H [facility] CenterUrine Transitional Epithelial Cells 2018-05-15 12:46:00* Test Item Value Reference Range Interpretation Comments Urine Transitional Epithelial Cells (test code = 8249-5) MANY NONE H [facility] CenterUrine Transitional Epithelial Cells 2018-05-15 12:46:00* Test Item Value Reference Range Interpretation Comments Urine Transitional Epithelial Cells (test code = 8249-5) MANY NONE H [facility] CenterUrine Transitional Epithelial Cells 2018-05-15 12:46:00* Test Item Value Reference Range Interpretation Comments Urine Transitional Epithelial Cells (test code = 8249-5) MANY NONE [facility] CenterUrine Ltnwe9233-63-01 12:28:00* Test Item Value Reference Range Interpretation Comments Urine Color (test code = 5778-6) YELLOW YELLOW [facility] CenterUrine Czexmjl0662-31-13 12:28:00* Test Item Value Reference Range Interpretation Comments Urine Clarity (test code = 47384-4) HAZY CLEAR [facility] Specific Vuhotsp9519-67-88 12:28:00 * Test Item Value Reference Range Interpretation Comments Urine Specific [place] (test code = 5811-5) 1.010 1.010-1.02 5 [facility] CenterUrine oK8979-77-53 12:28:00* Test Item Value Reference Range Interpretation Comments Urine pH (test code = 57152-7) 8 5-7 H [facility] CenterUrine Leukocyte Oziybmlk9253-23-57 12:28:00* Test Item Value Reference Range Interpretation Comments Urine Leukocyte Esterase (test code = 5799-2) NEGATIVE NEGATIVE [facility] Ualawdl1391-19-55 12:28:00* Test Item Value Reference Range Interpretation Comments Urine Nitrite (test code = 00788-2) NEGATIVE NEGATIVE [facility] CenterUrine Upunoca9718-73-22 12:28:00* Test Item Value Reference Range Interpretation Comments Urine Protein (test code = 5804-0) 2+ NEGATIVE H [facility] CenterUrine Glucose (UA)2018-05-15 12:28:00* Test Item Value Reference Range Interpretation Comments Urine Glucose (UA) (test code = 2349-9) NEGATIVE NEGATIVE [facility] CenterUrine Vsxberp3265-77-45 12:28:00* Test Item Value Reference Range Interpretation Comments Urine Ketones (test code = 79196-8) NEGATIVE NEGATIVE [facility] CenterUrine Rqkqnhnfnjlo4337-23-03 12:28:00* Test Item Value Reference Range Interpretation Comments Urine Urobilinogen (test code = 30259-2) 0.2 0.2-1 [facility] CenterUrine Pizocgobn9496-33-98 12:28:00* Test Item Value Reference Range Interpretation Comments Urine Bilirubin (test code = 1978-6) NEGATIVE NEGATIVE [facility] CenterUrine Jdpzl5668-28-57 12:28:00* Test Item Value Reference Range Interpretation Comments Urine Blood (test code = 82708-3) 1+ NEGATIVE H [facility] CenterB-Type Natriuretic Cnrtqbo7639-23-50 11:23:00* Test Item Value Reference Range Interpretation Comments B-Type Natriuretic Peptide (test code = 15972-4) 321.1 0-100 H [facility] CenterB-Type Natriuretic Wifrowm9653-28-32 11:23:00* Test Item Value Reference Range Interpretation Comments B-Type Natriuretic Peptide (test code = 10089-3) 321.1 0-100 H [facility] CenterB-Type Natriuretic Xxbaazd3838-42-64 11:23:00* Test Item Value Reference Range Interpretation Comments B-Type Natriuretic Peptide (test code = 95931-1) 321.1 0-100 H [facility] CenterB-Type Natriuretic Gpsdmyw2407-35-93 11:23:00* Test Item Value Reference Range Interpretation Comments B-Type Natriuretic Peptide (test code = 98683-0) 321.1 0-100 H [facility] CenterCT BRAIN KE8568-33-81 10:50:00 [place] [address] Patient Name: MIGUEL FONTENOT MR #: [id number] : 1935 Age/Sex: 82/F Req #: [id number] Adm Physician: Ordered by: CHANDANA DOMINGO NP Report #: [id number] Location: ER Room/Bed: Procedure: [id number] CT/CT BRAIN WO Exam Date: 05/15/18 Exam [...] 10:52 AM Dictated By: CEZAR ROSARIO MD 105 Transcribed By: YAQUELIN on 05/15/18 105 COPY TO: CHANDANA DOMINGO NP Creatine Kinase MC0870-95-00 10:49:00* Test Item Value Reference Range Interpretation Comments Creatine Kinase MB (test code = 70666-6) 0.80 0-5.0 [facility] CenterTroponin H8325-22-16 10:49:00* Test Item Value Reference Range Interpretation Comments Troponin I (test code = RTT9602) 0.013 0-0.300 [facility] CenterCHES SINGLE (PORTABLE)2018-05-15 10:46:00 [place] [address] Patient Name: MIGUEL FONTENOT MR #: [id number] : 1935 Age/Sex: 82/F Req #: [id number] Adm Physician: CHRISTEL HATHAWAY MD Ordered by: CHANDANA DOMINGO HE[employer]TER Report #: [id number] Location: [facility]: [facility] Procedure: DX/CHEST SINGLE (PORTABLE) Exam Date: 05/15/18 [...] on 05/15/2018 at 10:46 Dictated By: JAZMYN NADRES MD 1046 Transcribed By: PENELOPE on 05/15/18 1046 COPY TO: CHANDANA DOMINGO NP Magnesium Qqdnz2811-69-74 10:43:00* Test Item Value Reference Range Interpretation Comments Magnesium Level (test code = 17905-0) 1.5 1.3-2.1 [facility] CenterTotal Cftrqyqdc7626-21-12 10:43:00* Test Item Value Reference Range Interpretation Comments Total Bilirubin (test code = 1975-2) 0.5 0.2-1.2 [facility] CenterAspartate Amino Transf (AST/SGOT) 2018-05-15 10:43:00* Test Item Value Reference Range Interpretation Comments Aspartate Amino Transf (AST/SGOT) (test code = Aspartate Amino Transf (AST/SGOT)) 19 5-34 [facility] CenterAlanine Aminotransferase (ALT/SGPT) 2018-05-15 10:43:00* Test Item Value Reference Range Interpretation Comments Alanine Aminotransferase (ALT/SGPT) (test code = 1742-6) 17 0-55 [facility] CenterTotal Ohhvtjb4178-37-76 10:43:00* Test Item Value Reference Range Interpretation Comments Total Protein (test code = 2885-2) 6.2 6.5-8.1 L [facility] CenterAlbumin2018-09-17 10:43:00* Test Item Value Reference Range Interpretation Comments Albumin (test code = 1751-7) 2.5 3.5-5.0 L [facility] CenterGlobulin2018-09-17 10:43:00* Test Item Value Reference Range Interpretation Comments Globulin (test code = 48694-6) 3.7 2.3-3.5 H [facility] CenterAlbumin/Globulin Vwllm9307-48-98 10:43:00 * Test Item Value Reference Range Interpretation Comments Albumin/Globulin Ratio (test code = 1759-0) 0.7 0.8-2.0 L [facility] CenterAlkaline Zdhoeaoykrm2115-21-56 10:43:00* Test Item Value Reference Range Interpretation Comments Alkaline Phosphatase (test code = 6768-6) 79 40-150 [facility] CenterCreatine Sfzoxq2919-87-28 10:43:00* Test Item Value Reference Range Interpretation Comments Creatine Kinase (test code = 2157-6) 63 29-168 [facility] CenterProthrombin Wstr4079-74-69 10:34:00* Test Item Value Reference Range Interpretation Comments Prothrombin Time (test code = 5902-2) 14.5 11.9-14.5 [facility] CenterProthromb Time International Ratio 2018-05-15 10:34:00* Test Item Value Reference Range Interpretation Comments Prothromb Time International Ratio (test code = 6301-6) 1.22 Oral Anticoagulant Therapy INR Values:1. Low Intensity Therapy 1.5 - 2.02 . Moderate Intensity Therapy 2.0 - 3.03. High Intensity Therapy(1) 2.5 - 3. 54. High Intensity Therapy(2) 3.0 - 4.05. Panic Value INR > 5.0 [facility] CenterActivated Partial Thromboplast Time 2018-05-15 10:34:00* Test Item Value Reference Range Interpretation Comments Activated Partial Thromboplast Time (test code = 29889-0) 29.0 23.8-35.5 [facility] CenterDifferential Total Cells Counted 2018-03-30 08:42:00* Test Item Value Reference Range Interpretation Comments Differential Total Cells Counted (test code = Differgary tial Total Cells Counted) 100 [facility] CenterNeutrophils % (Manual)2018-03-30 08:42:00 * Test Item Value Reference Range Interpretation Comments Neutrophils % (Manual) (test code = 86347-2) 81 40-74 H [facility] CenterLymphocytes % (Manual)2018-03-30 08:42:00 * Test Item Value Reference Range Interpretation Comments Lymphocytes % (Manual) (test code = 737-7) 7 19-48 L [facility] CenterMonocytes % (Manual)2018-03-30 08:42:00* Test Item Value Reference Range Interpretation Comments Monocytes % (Manual) (test code = 744-3) 10 3.4-9.0 H [facility] CenterEosinophils % (Manual)2018-03-30 08:42:00 * Test Item Value Reference Range Interpretation Comments Eosinophils % (Manual) (test code = 714-6) 2 0-7 [facility] CenterPlatelet Oobpadoy9658-49-60 08:42:00* Test Item Value Reference Range Interpretation Comments Platelet Estimate (test code = 95208-2) ADEQUATE [facility] CenterPlatelet Morphology Kyaewxw7157-44-05 08:42:00* Test Item Value Reference Range Interpretation Comments Platelet Morphology Comment (test code = 39798-1) NORMAL [facility] CenterHypochromasia2018-08-02 08:42:00* Test Item Value Reference Range Interpretation Comments Hypochromasia (test code = 728-6) SLIGHT [facility] CenterAnisocytosis2018-08-02 08:42:00* Test Item Value Reference Range Interpretation Comments Anisocytosis (test code = 702-1) SLIGHT [facility] CenterRed Cell Morphology Euphdzm0335-70-08 08:42:00* Test Item Value Reference Range Interpretation Comments Red Cell Morphology Comment (test code = 6742-1) NORMAL [facility] CenterDifferential Total Cells Counted 2018-03-30 08:42:00* Test Item Value Reference Range Interpretation Comments Differential Total Cells Counted (test code = Differgary tial Total Cells Counted) 100 [facility] CenterNeutrophils % (Manual)2018-03-30 08:42:00 * Test Item Value Reference Range Interpretation Comments Neutrophils % (Manual) (test code = 45058-6) 81 40-74 H [facility] CenterLymphocytes % (Manual)2018-03-30 08:42:00 * Test Item Value Reference Range Interpretation Comments Lymphocytes % (Manual) (test code = 737-7) 7 19-48 L [facility] CenterMonocytes % (Manual)2018-03-30 08:42:00* Test Item Value Reference Range Interpretation Comments Monocytes % (Manual) (test code = 744-3) 10 3.4-9.0 H [facility] CenterEosinophils % (Manual)2018-03-30 08:42:00 * Test Item Value Reference Range Interpretation Comments Eosinophils % (Manual) (test code = 714-6) 2 0-7 [facility] CenterPlatelet Uvzdxvdh4878-39-79 08:42:00* Test Item Value Reference Range Interpretation Comments Platelet Estimate (test code = 24285-7) ADEQUATE [facility] CenterPlatelet Morphology Sjhlggv6363-32-27 08:42:00* Test Item Value Reference Range Interpretation Comments Platelet Morphology Comment (test code = 99017-0) NORMAL [facility] CenterHypochromasia2018-08-02 08:42:00* Test Item Value Reference Range Interpretation Comments Hypochromasia (test code = 728-6) SLIGHT [facility] CenterAnisocytosis2018-08-02 08:42:00* Test Item Value Reference Range Interpretation Comments Anisocytosis (test code = 702-1) SLIGHT [facility] CenterRed Cell Morphology Stlfymi1997-24-74 08:42:00* Test Item Value Reference Range Interpretation Comments Red Cell Morphology Comment (test code = 6742-1) NORMAL [facility] CenterDifferential Total Cells Counted 2018-03-30 08:42:00* Test Item Value Reference Range Interpretation Comments Differential Total Cells Counted (test code = Differen tial Total Cells Counted) 100 [facility] CenterNeutrophils % (Manual)2018-03-30 08:42:00 * Test Item Value Reference Range Interpretation Comments Neutrophils % (Manual) (test code = 59223-1) 81 40-74 H [facility] CenterLymphocytes % (Manual)2018-03-30 08:42:00 * Test Item Value Reference Range Interpretation Comments Lymphocytes % (Manual) (test code = 737-7) 7 19-48 L [facility] CenterMonocytes % (Manual)2018-03-30 08:42:00* Test Item Value Reference Range Interpretation Comments Monocytes % (Manual) (test code = 744-3) 10 3.4-9.0 H [facility] CenterEosinophils % (Manual)2018-03-30 08:42:00 * Test Item Value Reference Range Interpretation Comments Eosinophils % (Manual) (test code = 714-6) 2 0-7 [facility] CenterPlatelet Vgsntsxg5744-42-22 08:42:00* Test Item Value Reference Range Interpretation Comments Platelet Estimate (test code = 65701-2) ADEQUATE [facility] CenterPlatelet Morphology Khamyxo6552-93-64 08:42:00* Test Item Value Reference Range Interpretation Comments Platelet Morphology Comment (test code = 72834-9) NORMAL [facility] CenterHypochromasia2018-08-02 08:42:00* Test Item Value Reference Range Interpretation Comments Hypochromasia (test code = 728-6) SLIGHT [facility] CenterAnisocytosis2018-08-02 08:42:00* Test Item Value Reference Range Interpretation Comments Anisocytosis (test code = 702-1) SLIGHT [facility] CenterRed Cell Morphology Voudpmm3873-30-59 08:42:00* Test Item Value Reference Range Interpretation Comments Red Cell Morphology Comment (test code = 6742-1) NORMAL [facility] CenterDifferential Total Cells Counted 2018-03-30 08:42:00* Test Item Value Reference Range Interpretation Comments Differential Total Cells Counted (test code = Differen tial Total Cells Counted) 100 [facility] CenterNeutrophils % (Manual)2018-03-30 08:42:00 * Test Item Value Reference Range Interpretation Comments Neutrophils % (Manual) (test code = 37603-3) 81 40-74 H [facility] CenterLymphocytes % (Manual)2018-03-30 08:42:00 * Test Item Value Reference Range Interpretation Comments Lymphocytes % (Manual) (test code = 737-7) 7 19-48 L [facility] CenterMonocytes % (Manual)2018-03-30 08:42:00* Test Item Value Reference Range Interpretation Comments Monocytes % (Manual) (test code = 744-3) 10 3.4-9.0 H [facility] CenterEosinophils % (Manual)2018-03-30 08:42:00 * Test Item Value Reference Range Interpretation Comments Eosinophils % (Manual) (test code = 714-6) 2 0-7 [facility] CenterPlatelet Vswvpdyn6245-24-09 08:42:00* Test Item Value Reference Range Interpretation Comments Platelet Estimate (test code = 37741-5) ADEQUATE [facility] CenterPlatelet Morphology Bqejjhs5240-52-05 08:42:00* Test Item Value Reference Range Interpretation Comments Platelet Morphology Comment (test code = 17160-4) NORMAL [facility] CenterHypochromasia2018-08-02 08:42:00* Test Item Value Reference Range Interpretation Comments Hypochromasia (test code = 728-6) SLIGHT [facility] CenterAnisocytosis2018-08-02 08:42:00* Test Item Value Reference Range Interpretation Comments Anisocytosis (test code = 702-1) SLIGHT [facility] CenterRed Cell Morphology Asxaxpd8783-32-89 08:42:00* Test Item Value Reference Range Interpretation Comments Red Cell Morphology Comment (test code = 6742-1) NORMAL [facility] CenterDifferential Total Cells Counted 2018-03-30 08:42:00* Test Item Value Reference Range Interpretation Comments Differential Total Cells Counted (test code = Differgary tial Total Cells Counted) 100 [facility] CenterNeutrophils % (Manual)2018-03-30 08:42:00 * Test Item Value Reference Range Interpretation Comments Neutrophils % (Manual) (test code = 40538-5) 81 40-74 H [facility] CenterLymphocytes % (Manual)2018-03-30 08:42:00 * Test Item Value Reference Range Interpretation Comments Lymphocytes % (Manual) (test code = 737-7) 7 19-48 L [facility] CenterMonocytes % (Manual)2018-03-30 08:42:00* Test Item Value Reference Range Interpretation Comments Monocytes % (Manual) (test code = 744-3) 10 3.4-9.0 H [facility] CenterEosinophils % (Manual)2018-03-30 08:42:00 * Test Item Value Reference Range Interpretation Comments Eosinophils % (Manual) (test code = 714-6) 2 0-7 [facility] CenterPlatelet Aavvjpkl2523-99-13 08:42:00* Test Item Value Reference Range Interpretation Comments Platelet Estimate (test code = 27141-4) ADEQUATE [facility] CenterPlatelet Morphology Rbhambq7873-35-43 08:42:00* Test Item Value Reference Range Interpretation Comments Platelet Morphology Comment (test code = 07673-2) NORMAL [facility] CenterHypochromasia2018-08-02 08:42:00* Test Item Value Reference Range Interpretation Comments Hypochromasia (test code = 728-6) SLIGHT [facility] CenterAnisocytosis2018-08-02 08:42:00* Test Item Value Reference Range Interpretation Comments Anisocytosis (test code = 702-1) SLIGHT [facility] CenterRed Cell Morphology Yguwpzd7416-40-17 08:42:00* Test Item Value Reference Range Interpretation Comments Red Cell Morphology Comment (test code = 6742-1) NORMAL [facility] CenterThyroid Stimulating Hormone (TSH) 2018-03-30 06:23:00* Test Item Value Reference Range Interpretation Comments Thyroid Stimulating Hormone (TSH) (test code = 65904-9) 1.496 0.350-4.940 [facility] CenterThyroid Stimulating Hormone (TSH) 2018-03-30 06:23:00* Test Item Value Reference Range Interpretation Comments Thyroid Stimulating Hormone (TSH) (test code = 49631-1) 1.496 0.350-4.940 [facility] CenterThyroid Stimulating Hormone (TSH) 2018-03-30 06:23:00* Test Item Value Reference Range Interpretation Comments Thyroid Stimulating Hormone (TSH) (test code = 94978-8) 1.496 0.350-4.940 [facility] CenterThyroid Stimulating Hormone (TSH) 2018-03-30 06:23:00* Test Item Value Reference Range Interpretation Comments Thyroid Stimulating Hormone (TSH) (test code = 90758-5) 1.496 0.350-4.940 [facility] CenterThyroid Stimulating Hormone (TSH) 2018-03-30 06:23:00* Test Item Value Reference Range Interpretation Comments Thyroid Stimulating Hormone (TSH) (test code = 72302-7) 1.496 0.350-4.940 [facility] CenterTriglycerides Wzccy2502-15-14 06:00:00* Test Item Value Reference Range Interpretation Comments Triglycerides Level (test code = 2571-8) 152 0-149 H [facility] CenterCholesterol Cfiki0200-30-64 06:00:00* Test Item Value Reference Range Interpretation Comments Cholesterol Level (test code = 2093-3) 157 0-199 Less than 200 mg/dL Low Euym566 - 239 mg/dL Borderline Urbx148 m g/dl and greater High Risk [facility] CenterLDL Kqjvvdivvno2632-51-11 06:00:00* Test Item Value Reference Range Interpretation Comments LDL Cholesterol (test code = 2089-1) 83 60-130 [facility] CenterHDL Qdlgrpawdrh9332-92-35 06:00:00* Test Item Value Reference Range Interpretation Comments HDL Cholesterol (test code = 2085-9) 44 40-60 [facility] CenterCholesterol/HDL Hzdij8373-42-21 06:00:00 * Test Item Value Reference Range Interpretation Comments Cholesterol/HDL Ratio (test code = 9830-1) 3.6 3.0-3.6 [facility] CenterTriglycerides Yihle4830-33-25 06:00:00* Test Item Value Reference Range Interpretation Comments Triglycerides Level (test code = 2571-8) 152 0-149 H [facility] CenterCholesterol Yjhad5541-12-39 06:00:00* Test Item Value Reference Range Interpretation Comments Cholesterol Level (test code = 2093-3) 157 0-199 Less than 200 mg/dL Low Qaia396 - 239 mg/dL Borderline Ulla643 m g/dl and greater High Risk [facility] CenterLDL Tvmojmwjhcs8656-71-21 06:00:00* Test Item Value Reference Range Interpretation Comments LDL Cholesterol (test code = 2089-1) 83 60-130 [facility] Kcugossmcic7367-33-74 06:00:00* Test Item Value Reference Range Interpretation Comments HDL Cholesterol (test code = 2085-9) 44 40-60 [facility] CenterCholesterol/HDL Clnth0173-58-29 06:00:00 * Test Item Value Reference Range Interpretation Comments Cholesterol/HDL Ratio (test code = 9830-1) 3.6 3.0-3.6 [facility] CenterTriglycerides Vtcss0705-76-70 06:00:00* Test Item Value Reference Range Interpretation Comments Triglycerides Level (test code = 2571-8) 152 0-149 H [facility] CenterCholesterol Lruqx4797-88-94 06:00:00* Test Item Value Reference Range Interpretation Comments Cholesterol Level (test code = 2093-3) 157 0-199 Less than 200 mg/dL Low Xaxu818 - 239 mg/dL Borderline Yngu017 m g/dl and greater High Risk [facility] Hbniekijoew3388-52-45 06:00:00* Test Item Value Reference Range Interpretation Comments LDL Cholesterol (test code = 2089-1) 83 60-130 [facility] Ndnxlghwemd4332-22-00 06:00:00* Test Item Value Reference Range Interpretation Comments HDL Cholesterol (test code = 2085-9) 44 40-60 [facility] CenterCholesterol/HDL Rskzt9595-68-50 06:00:00 * Test Item Value Reference Range Interpretation Comments Cholesterol/HDL Ratio (test code = 9830-1) 3.6 3.0-3.6 [facility] CenterTriglycerides Bequd4727-63-79 06:00:00* Test Item Value Reference Range Interpretation Comments Triglycerides Level (test code = 2571-8) 152 0-149 H [facility] CenterCholesterol Bsakd9612-15-32 06:00:00* Test Item Value Reference Range Interpretation Comments Cholesterol Level (test code = 2093-3) 157 0-199 Less than 200 mg/dL Low Nsjw792 - 239 mg/dL Borderline Omho138 m g/dl and greater High Risk [facility] CenterLDL Npremprxbdp9409-71-95 06:00:00* Test Item Value Reference Range Interpretation Comments LDL Cholesterol (test code = 2089-1) 83 60-130 [facility] CenterHDL Hxnexcqhsib5862-40-10 06:00:00* Test Item Value Reference Range Interpretation Comments HDL Cholesterol (test code = 2085-9) 44 40-60 [facility] CenterCholesterol/HDL Vqcdb8225-16-11 06:00:00 * Test Item Value Reference Range Interpretation Comments Cholesterol/HDL Ratio (test code = 9830-1) 3.6 3.0-3.6 [facility] CenterTriglycerides Qukrc7373-84-82 06:00:00* Test Item Value Reference Range Interpretation Comments Triglycerides Level (test code = 2571-8) 152 0-149 H [facility] CenterCholesterol Iacfl8684-62-66 06:00:00* Test Item Value Reference Range Interpretation Comments Cholesterol Level (test code = 2093-3) 157 0-199 Less than 200 mg/dL Low Crwj798 - 239 mg/dL Borderline Epwi627 m g/dl and greater High Risk [facility] CenterLDL Miekwngaiad7900-36-05 06:00:00* Test Item Value Reference Range Interpretation Comments LDL Cholesterol (test code = 2089-1) 83 60-130 [facility] Asyzuaxnwjy6905-20-70 06:00:00* Test Item Value Reference Range Interpretation Comments HDL Cholesterol (test code = 2085-9) 44 40-60 [facility] CenterCholesterol/HDL Ijobm3166-38-88 06:00:00 * Test Item Value Reference Range Interpretation Comments Cholesterol/HDL Ratio (test code = 9830-1) 3.6 3.0-3.6 [facility] CenterWhite Blood Rtdux3738-66-10 05:52:00* Test Item Value Reference Range Interpretation Comments White Blood Count (test code = 6690-2) 6.53 4.8-10.8 [facility] CenterRed Blood Prmjo0113-47-16 05:52:00* Test Item Value Reference Range Interpretation Comments Red Blood Count (test code = 789-8) 3.84 3.6-5.1 [facility] CenterHemoglobin2018-08-02 05:52:00* Test Item Value Reference Range Interpretation Comments Hemoglobin (test code = 50509-9) 11.6 12.0-16.0 L [facility] CenterHematocrit2018-08-02 05:52:00* Test Item Value Reference Range Interpretation Comments Hematocrit (test code = 4544-3) 34.8 34.2-44.1 [facility] CenterMean Corpuscular Aofuck8239-31-95 05:52:00* Test Item Value Reference Range Interpretation Comments Mean Corpuscular Volume (test code = 787-2) 90.6 81-99 [facility] CenterMean Corpuscular Qyjfrvjech0183-12-30 05:52:00* Test Item Value Reference Range Interpretation Comments Mean Corpuscular Hemoglobin (test code = 785-6) 30.2 28-32 [facility] CenterMean Corpuscular Hemoglobin Concent 2018-03-30 05:52:00* Test Item Value Reference Range Interpretation Comments Mean Corpuscular Hemoglobin Concent (test code = 786-4) 33.3 31-35 [facility] CenterRed Cell Distribution Txthj0220-83-31 05:52:00* Test Item Value Reference Range Interpretation Comments Red Cell Distribution Width (test code = 35569-1) 13.3 11.7 -14.4 [facility] CenterPlatelet Qmifh4173-29-85 05:52:00* Test Item Value Reference Range Interpretation Comments Platelet Count (test code = 777-3) 92 140-360 L [facility] CenterNeutrophils (%) (Auto)2018-03-30 05:52:00 * Test Item Value Reference Range Interpretation Comments Neutrophils (%) (Auto) (test code = 31680-4) 76.4 38.7-80.0 [facility] CenterLymphocytes (%) (Auto)2018-03-30 05:52:00 * Test Item Value Reference Range Interpretation Comments Lymphocytes (%) (Auto) (test code = 736-9) 8.0 18.0-39.1 L [facility] CenterMonocytes (%) (Auto)2018-03-30 05:52:00* Test Item Value Reference Range Interpretation Comments Monocytes (%) (Auto) (test code = 5905-5) 10.7 4.4-11.3 [facility] CenterEosinophils (%) (Auto)2018-03-30 05:52:00 * Test Item Value Reference Range Interpretation Comments Eosinophils (%) (Auto) (test code = 713-8) 3.8 0.0-6.0 [facility] CenterBasophils (%) (Auto)2018-03-30 05:52:00* Test Item Value Reference Range Interpretation Comments Basophils (%) (Auto) (test code = 706-2) 0.3 0.0-1.0 [facility] CenterIM GRANULOCYTES %2018-03-30 05:52:00* Test Item Value Reference Range Interpretation Comments IM GRANULOCYTES % (test code = IM GRANULOCYTES %) 0.8 0.0- 1.0 [facility] CenterNeutrophils # (Auto)2018-03-30 05:52:00* Test Item Value Reference Range Interpretation Comments Neutrophils # (Auto) (test code = 751-8) 5.0 2.1-6.9 [facility] CenterLymphocytes # (Auto)2018-03-30 05:52:00* Test Item Value Reference Range Interpretation Comments Lymphocytes # (Auto) (test code = 48090-8) 0.5 1.0-3.2 L [facility] CenterMonocytes # (Auto)2018-03-30 05:52:00* Test Item Value Reference Range Interpretation Comments Monocytes # (Auto) (test code = 742-7) 0.7 0.2-0.8 [facility] CenterEosinophils # (Auto)2018-03-30 05:52:00* Test Item Value Reference Range Interpretation Comments Eosinophils # (Auto) (test code = 711-2) 0.3 0.0-0.4 [facility] CenterBasophils # (Auto)2018-03-30 05:52:00* Test Item Value Reference Range Interpretation Comments Basophils # (Auto) (test code = 704-7) 0.0 0.0-0.1 [facility] CenterAbsolute Immature Granulocyte (auto 2018-03-30 05:52:00* Test Item Value Reference Range Interpretation Comments Absolute Immature Granulocyte (auto (karo t code = Absolute Immature Granulocyte (auto) 0.05 0-0.1 [facility] CenterTroponin O4429-33-07 08:35:00* Test Item Value Reference Range Interpretation Comments Troponin I (test code = NJV5754) 0.021 0-0.300 [facility] CenterCreatine Kinase SW6579-22-76 08:30:00* Test Item Value Reference Range Interpretation Comments Creatine Kinase MB (test code = 58822-5) 1.00 0-5.0 [facility] CenterCreatine Rsnjpi1136-42-28 08:23:00* Test Item Value Reference Range Interpretation Comments Creatine Kinase (test code = 2157-6) 64 29-168 [facility] Vljhu0152-81-60 08:20:00* Test Item Value Reference Range Interpretation Comments Sodium Level (test code = 2951-2) 142 136-145 [facility] CenterPotassium Nimqh4625-24-77 08:20:00* Test Item Value Reference Range Interpretation Comments Potassium Level (test code = 2823-3) 4.0 3.5-5.1 [facility] CenterChloride Xytjr3879-77-90 08:20:00* Test Item Value Reference Range Interpretation Comments Chloride Level (test code = 2075-0) 110 98-107 H [facility] CenterCarbon Dioxide Vsopj2905-90-11 08:20:00* Test Item Value Reference Range Interpretation Comments Carbon Dioxide Level (test code = 2028-9) 22 22-29 [facility] CenterAnion Cil8607-94-54 08:20:00* Test Item Value Reference Range Interpretation Comments Anion Gap (test code = 33965-5) 14.0 8-16 [facility] CenterBlood Urea Aiprxvgh9249-45-44 08:20:00* Test Item Value Reference Range Interpretation Comments Blood Urea Nitrogen (test code = 3094-0) 50 7-26 H [facility] CenterCreatinine2018-08-01 08:20:00* Test Item Value Reference Range Interpretation Comments Creatinine (test code = 2160-0) 6.02 0.57-1.11 H [facility] CenterBUN/Creatinine Vyzlr9922-54-02 08:20:00* Test Item Value Reference Range Interpretation Comments BUN/Creatinine Ratio (test code = 3097-3) 8 6-25 [facility] CenterEstimat Glomerular Filtration Rate 2018-03-29 08:20:00* Test Item Value Reference Range Interpretation Comments Estimat Glomerular Filtration Rate (test code = 18658-6) 7 >60 L Ranges were taken from the National Kidney Disease Education Program and the [facility] literature.Reference ranges:60 or greater: Tjiiaw87-94 ( for 3 consecutive months): Chronic kidney disease 15 or less: Kidney failureWoodland Heights Medical CenterGlucose Frmis0617-49-80 08:20:00* Test Item Value Reference Range Interpretation Comments Glucose Level (test code = OVU8849) 108 74-118 [facility] CenterCalcium Famwf7153-18-33 08:20:00* Test Item Value Reference Range Interpretation Comments Calcium Level (test code = 71948-8) 10.0 8.4-10.2 [facility] CenterMagnesium Yagnx9081-42-31 15:53:00* Test Item Value Reference Range Interpretation Comments Magnesium Level (test code = 17167-4) 1.8 1.3-2.1 [facility] CenterB-Type Natriuretic Tvrsnwh2502-80-70 15:04:00* Test Item Value Reference Range Interpretation Comments B-Type Natriuretic Peptide (test code = 03412-0) 68.0 0-100 [facility] CenterLactic Acid Cswud7650-92-19 14:57:00* Test Item Value Reference Range Interpretation Comments Lactic Acid Level (test code = Lactic Acid Level) 12.2 4.5- 19.8 [facility] CenterTotal Mrnbsoyrw5002-12-08 14:57:00* Test Item Value Reference Range Interpretation Comments Total Bilirubin (test code = 1975-2) 0.5 0.2-1.2 [facility] CenterAspartate Amino Transf (AST/SGOT) 2017-07-03 14:57:00* Test Item Value Reference Range Interpretation Comments Aspartate Amino Transf (AST/SGOT) (test code = Aspartate Amino Transf (AST/SGOT)) 21 5-34 [facility] CenterAlanine Aminotransferase (ALT/SGPT) 2017-07-03 14:57:00* Test Item Value Reference Range Interpretation Comments Alanine Aminotransferase (ALT/SGPT) (test code = 1742-6) 19 0-55 [facility] CenterTotal Rrpsmsz5663-76-10 14:57:00* Test Item Value Reference Range Interpretation Comments Total Protein (test code = 2885-2) 7.4 6.5-8.1 [facility] CenterAlbumin2017-11-05 14:57:00* Test Item Value Reference Range Interpretation Comments Albumin (test code = 1751-7) 3.1 3.5-5.0 L [facility] CenterGlobulin2017-11-05 14:57:00* Test Item Value Reference Range Interpretation Comments Globulin (test code = 90847-9) 4.3 2.3-3.5 H [facility] CenterAlbumin/Globulin Ahjkq8631-43-21 14:57:00 * Test Item Value Reference Range Interpretation Comments Albumin/Globulin Ratio (test code = 1759-0) 0.7 0.8-2.0 L [facility] CenterAlkaline Yzkkmnyrscg5498-92-32 14:57:00* Test Item Value Reference Range Interpretation Comments Alkaline Phosphatase (test code = 6768-6) 91 40-150 [facility] CenterLipase2017-11-05 14:57:00* Test Item Value Reference Range Interpretation Comments Lipase (test code = 3040-3) 35 8-78 [facility] CenterProthrombin Iwfn5875-81-39 14:47:00* Test Item Value Reference Range Interpretation Comments Prothrombin Time (test code = 5902-2) 13.8 11.9-14.5 [facility] CenterProthromb Time International Ratio 2017-07-03 14:47:00* Test Item Value Reference Range Interpretation Comments Prothromb Time International Ratio (test code = 6301-6) 1.01 Oral Anticoagulant Therapy INR Values:1. Low Intensity Therapy 1.5 - 2.02 . Moderate Intensity Therapy 2.0 - 3.03. High Intensity Therapy(1) 2.5 - 3. 54. High Intensity Therapy(2) 3.0 - 4.05. Panic Value INR > 5.0 [facility] CenterActivated Partial Thromboplast Time 2017-07-03 14:47:00* Test Item Value Reference Range Interpretation Comments Activated Partial Thromboplast Time (test code = 70711-4) 30.6 23.8-35.5 [facility] CenterUrine WGX2258-65-52 14:44:00* Test Item Value Reference Range Interpretation Comments Urine WBC (test code = 5821-4) 11-20 0-5 H [facility] CenterUrine XPL4921-85-20 14:44:00* Test Item Value Reference Range Interpretation Comments Urine RBC (test code = 92743-5) 11-20 0-5 H [facility] CenterUrine Wabmohwh1086-89-32 14:44:00* Test Item Value Reference Range Interpretation Comments Urine Bacteria (test code = 04073-3) MODERATE NONE H [facility] CenterUrine Epithelial Zcqql6149-10-42 14:44:00 * Test Item Value Reference Range Interpretation Comments Urine Epithelial Cells (test code = 11809-3) MODERATE NONE [facility] CenterUrine Bslui6242-43-08 14:29:00* Test Item Value Reference Range Interpretation Comments Urine Color (test code = 5778-6) YELLOW YELLOW [facility] CenterUrine Ppowjxe4735-73-72 14:29:00* Test Item Value Reference Range Interpretation Comments Urine Clarity (test code = 15773-8) SL CLOUDY CLEAR [facility] CenterUrine Specific Vcpebya3410-58-93 14:29:00 * Test Item Value Reference Range Interpretation Comments Urine Specific [place] (test code = 5811-5) 1.020 1.010-1.02 5 [facility] CenterUrine hX1344-00-25 14:29:00* Test Item Value Reference Range Interpretation Comments Urine pH (test code = 96916-2) 5 5-7 [facility] Leukocyte Nhlzbhuw4479-51-59 14:29:00* Test Item Value Reference Range Interpretation Comments Urine Leukocyte Esterase (test code = 5799-2) 1+ NEGATIVE H [facility] Uifnajb6354-74-88 14:29:00* Test Item Value Reference Range Interpretation Comments Urine Nitrite (test code = 42366-3) NEGATIVE NEGATIVE [facility] Ygmvvyo6753-40-46 14:29:00* Test Item Value Reference Range Interpretation Comments Urine Protein (test code = 5804-0) 3+ NEGATIVE H [facility] Glucose (UA)2017-07-03 14:29:00* Test Item Value Reference Range Interpretation Comments Urine Glucose (UA) (test code = 2349-9) 1+ NEGATIVE H [facility] Ofazbue0453-69-45 14:29:00* Test Item Value Reference Range Interpretation Comments Urine Ketones (test code = 64507-4) NEGATIVE NEGATIVE [facility] Tgphshnjenvt2641-63-47 14:29:00* Test Item Value Reference Range Interpretation Comments Urine Urobilinogen (test code = 65764-3) 0.2 0.2-1 [facility] CenterUrine Usedjvzgl7006-80-33 14:29:00* Test Item Value Reference Range Interpretation Comments Urine Bilirubin (test code = 1978-6) 1+ NEGATIVE H [facility] Gvdvm2389-11-13 14:29:00* Test Item Value Reference Range Interpretation Comments Urine Blood (test code = 92579-7) 2+ NEGATIVE H [facility] CenterBedside Wkcsksy6210-66-58 07:22:00* Test Item Value Reference Range Interpretation Comments Bedside Glucose (test code = 23100-6) 96 70-120 Meter ID: [id number] [facility] Swihu2068-95-44 17:08:00* Test Item Value Reference Range Interpretation Comments Urine Mucus (test code = 8247-9) FEW RARE H [facility] HospitalELECTROLYTES2017-03-09 12:03:004.3[facility] CenterBL[facility]OD [facility] LNWNPLK2086-23-22 16:13:00Negative (10/28/16 10:13 AM) QcbuxsopjTXRSQWLIBOBC9410-59-27 16:13:0012.4[facility] HospitalMewpzneorSDIPZTMGETVG8883-32-98 16:13:0012[facility] HospitalSimdvaykeBLESCMAVHVOC9210-66-78 16:13:0036 SoutheastELECTROLYTES 2016-10-28 16:13:0095[facility] HospitalQyxijygoaUCPTMTFIENOQ5478-78-85 16:13:003.50[facility] VPKTTNJCQOKG7926-31-70 16:13:[address] [place], [place] [address]SakxudselMRLPAZLBNHFZ5775-62-74 16:13:0021 HfayzqvqvWVMOCDEUPYTN8333-89-35 16:13:004.4[facility] HospitalNkraryoebCLDMGZGINFXC9460-66-19 16:13:64939HGCardinal Cushing HospitalCvecssxhzPQLAXXWHJEBW4197-94-93 16:13:68580FQ SoutheastHEMATOLOGY 2016-10-28 16:13:0021.2M GszavoinaRSPRNMZZYP4046-81-04 16:13:001.[address] [place] [address] RSMZEPGJIJ7003-33-20 16:13:004.2M AzvpyoiufXBCAWPSYXZ7116-05-05 16:13:003.9 BscmyvasfNABCLHSISL7215-59-27 16:13:007.5 QujegdcxqNOLNHKDVDV2737-54-33 16:13:000.2M YhbgrhitbAKZQNVFJXV5408-30-66 16:13:001.4 [facility] 2016-10-28 16:13:000.5 UgdzjytubIIFBBSIYII9072-01-74 16:13:000.[address] [place] [address] VIDZAMZJDS6894-08-01 16:13:0065.[facility] YasjjxfemSPZXMPITWH4516-14-26 16:13:001.04 NjayqtgvmPYHAAQOJCU9002-16-73 16:13:00* Test Item Value Reference Range Interpretation Comments PT (test code = PT) 13.8 s 12.0-14.7 FxllkxrizDNNTKHRUEG8997-99-25 16:13:00* Test Item Value Reference Range Interpretation Comments PTT (test code = PTT) 30.0 s 22.9-35.8 QcdyxpdmoALJRICTMCH6103-86-36 16:13:008.3M IpbtjizemHWTOJLAQVY5457-70-86 16:13:0034.0 YkxtgemocMYJIMTZZAE5430-63-88 16:13:0013.5 [facility] 2016-10-28 16:13:003.45 MvtbhnzluBMCESSBLLH2193-82-52 16:13:0030.5 [facility] SXCYFMLTWB3683-42-61 16:13:0010.4 OmdacjerfMYFAJENTAW3368-89-30 16:13:0088.5 UeltixepvNFOHLIVYVO1607-82-25 16:13:00* Test Item Value Reference Range Interpretation Comments MCH (test code = MCH) 30.1 pg 27.0-31.0 XpekfyvynRKQZACRBAI3702-91-26 16:13:30947IS OfcwozmqeJXDARLABOC1833-58-55 16:13:006.4 RdminycwjCXRWUXHSWKMQ5476-47-30 12:54:475.0 SoutheastCHEM PANEL 2015-11-17 21:43:0018 SoutheastCHEM ZQCIS4196-08-03 21:43:007.9 [facility] CHEM QWAVG6186-19-57 21:43:0020 SoutheastCHEM JABFZ1204-80-27 21:43:57023DW SoutheastCHEM CLPIG7485-68-33 21:43:004.8 [facility]CHEM KHOMM7068-40-95 21:43:86517JA SoutheastCHEM VBMSV3720-81-13 21:43:002.45 SoutheastCHEM PANEL 2015-11-17 21:43:0037 SoutheastCHEM KAEFT3338-61-97 21:43:98459RE [facility] CHE[facility] AKJJK1504-88-53 21:43:0011.8 RedurraguVBUWEMTRKU2083-62-18 21:43:001.15 KaglkthgwNMFURSLWCR5696-03-66 21:43:00* Test Item Value Reference Range Interpretation Comments PT (test code = PT) 15.0 s 12.0-14.7 DatkgddqzPNPMQMNMXQ7323-14-28 21:43:0089.9 UinwvkgvyAXZFABXFXF0407-68-23 21:43:008.5 AyghrexqhGYJUHETFYL4013-12-95 21:43:0033.1M [facility]HEMAT[facility] 2015-11-17 21:43:0014.3M YneoyrsjtKXCCZQIGSS3680-69-21 21:43:00* Test Item Value Reference Range Interpretation Comments MCH (test code = MCH) 29.7 pg 27.0-31.0 HippkvilnJADOCQPNZM1131-75-85 21:43:13660PR ThyuqhgkuPXSZLVPSMI4226-10-26 21:43:0027.1M HxvsqxmgyECMDBZXCQY7963-73-94 21:43:003.01 [facility] 2015-11-17 21:43:009.0 UggcrlpduHSGIEKRYFJ8554-86-98 21:43[facility] JTOTQWLJHA5273-66-14 21:43:00* Test Item Value Reference Range Interpretation Comments PTT (test code = PTT) 27.1 s 22.9-35.8 VinoaggufXZSXGYUISR2983-20-35 21:43:000.1M ItkxzqagyBDVSKCIUZZ1589-51-95 21:43:003.9 XyockcbvrLXVKNCARFG9969-83-47 21:43:000.1M [facility]HE[facility] 2015-11-17 21:43:001.1M DrymqvovvQBBZEYZXQY2835-52-08 21:43:000.5[facility] EJVKUPLRTG6266-56-35 21:43:0018.8[facility] HospitalDohtqbeumUGLJLCKHYT9423-39-16 21:43:001.4 JeedplelsSNBQZROYQX4958-02-22 21:43:008.0 LbxyzyassXBIZDWNDTP2315-47-51 21:43:002.1M DwfzwrjuiPPQWSRHHTJ5892-05-37 21:43:0069.7 [facility]EL 2015-03-24 14:14:45851QV JtpdedjdpQOMQMXDCFXZV2240-60-50 14:14:005.4 [facility] BAGEZ7967-65-89 19:57:0050 [facility] JPFMK5815-90-62 19:57:0013 [facility] EINUQ3775-75-47 19:57:003.3M [facility] XKFJQ5987-54-53 19:57:62481ZQ [facility] PUOXW6758-51-66 19:57:73033SW [facility]CHEM PANEL 2015-03-17 19:57:004.7 [facility] GMCBI5301-69-14 19:57:45758MY [facility] YTAOF5789-32-56 19:57:009.2MH [facility] HQITN0179-90-28 19:57:0020 [facility] TVCKM2150-20-04 19:57:0015.7 FrejdjmrwJXBZEHJKNA5372-49-72 19:57:00* Test Item Value Reference Range Interpretation Comments PTT (test code = PTT) 34.3 s 22.9-35.8 HzsvpaenvQFVNTULTBF8958-93-27 19:57:001.16 NprmhamhgATCOHYKQZG6749-75-31 19:57:00* Test Item Value Reference Range Interpretation Comments PT (test code = PT) 14.9 s 12.0-14.7 AfnzdfticVHJRIRKMCN8850-80-19 19:57:009.0 DnmxeaseyQVZTFVFBRP3656-76-40 19:57:52700DN AxxzoakufNOYCZHGDAM6344-50-61 19:57:0027.7 [facility] 2015-03-17 19:57:0087.9 VqhxcgkflOJBWMJMZKU1901-93-83 19:57:003.15[facility] FTCJCUEYMO7558-49-04 19:57:009.3M KdusrrnodOLNZHHYPBN1020-30-80 19:57:0033.7 YzvyoilqdKMXFYVVKYN0391-21-17 19:57:0014.0 ZvimqpkcsZCGRNPGJZZ7213-57-27 19:57:00* Test Item Value Reference Range Interpretation Comments MCH (test code = MCH) 29.6 pg 27.0-31.0 WqorsdrhgCHHXOGCQET8844-45-07 19:57:005.4 BzaipflciNAPQHTXFVW2140-91-86 19:57:001.2M XhaebowggKDPTHCEQOT9331-12-78 19:57:003.4 [facility] 2015-03-17 19:57:001.4 NrwsbkoaqANDZTWTFQG9164-07-78 19:57:003.0[facility] DUOANIOFBN1807-14-42 19:57:000.1MH SrluujnabUGIJNTLSUE0287-37-49 19:57:000.6MH JlfgtamsxHSBITCKTDX3497-37-75 19:57:000.2MH LhdlceljsMEMHWMGPCD6564-18-30 19:57:0010.9MH GbtudghwuFKNJOUVSMY0551-64-64 19:57:0062.7MH [facility] 2015-03-17 19:57:0022.0MH [facility] BRAIN WO [facility] [address] [address] Patient Name: MIGUEL FONTENOT MR #: [id number] : 1935 Age/Sex: 82/F Req #: [id number] Adm Physician: Ordered by: LOY SO NP Report #: [id number] Location: ER Room/Bed: Procedure: [id number] CT/CT BRAIN WO Exam Da te: 07/03/17 [...] on 07/03/17 1356 COPY TO: Corey SO HEEL SEAT FITTER CHEST SINGLE (PORTABLE) [place] [address] Patient Name: MIGUEL FONTENOT MR #: [id number] : 1935 Age/Sex: 82/F Req #: [id number] Adm Physician: Ordered by: LOY SO HEEL SEAT FITTER Report #: [id number] Location: ER Room/Bed: Procedure: [id number] DX/CHEST SINGLE (PORTAB LE) Exam Date: 07/03/17 [...] 2:12 PM Dictated By: SISI RODRIGUEZ MD 11 COPY TO: MARLA SO NP MRI BRAIN WO [place] [address] Patient Name: MIGUEL FONTENOT MR #: [id number] : 1935 Age/Sex: 82/F Req #: [id number] Adm Physician: RODNEY SHIPMAN MD Ordered by: RODNEY SHIPMAN MD Report #: [id number] Location: [facility] Room/Bed: [place] [address] Procedure: [id number] MRI/MRI BRAIN WO Exam [...] TO: RODNEY SHIPMAN MD CT BRAIN WO [place] [address] Patient Name: MIGUEL FONTENOT MR #: [id number] : 1935 Age/Sex: 82/F Req #: [id number] Adm Physician: Ordered by: PATRICK DAMON MD Report #: [id number] Location: ER Room/Bed: Procedure: [id number] CT/CT BRAIN WO Exam Date: 06/13/17 Exam [...] 16 Transcribed By: MARY KATE SHAH on 06/13/17 131 COPY TO: PATRICK DAMON MD CT BRAIN WO [place] [address] Patient Name: MIGUEL FONTENOT MR #: [id number] : 1935 Age/Sex: 81/F Req #: [id number] Adm Physician: Ordered by: PATRICK DAMON MD Report #: [id number] Location: ER Room/Bed: Procedure: [id number] CT/CT BRAIN WO Exam Date: Exam Time: [...] 3:57 PM Dictated By: ATILIO ABARCA MD [id number] Transcribed By: YAQUELIN on 05/15/17 094 COPY TO: PATRICK DAMON MD
--- NOTE | 2020-01-28 17:19 | Consultation ---
DATE OF CONSULTATION: 01/28/2020 HISTORY OF PRESENT ILLNESS: Ms. Eloina Ling is known to me, 84-year-old female, who apparently developed some numbness and tingling in right arm yesterday, came to the ER. Subsequently was discharged, comes in again with numbness and tingling of the right arm, which lasted for about 7 minutes and then subsequently has subsided. She denies any symptoms right now. She denies any fever, chills, headache, or blurred vision. She states she has had a mini-stroke in the past, but she has been maintained on aspirin and Plavix at home. She follows up with Dr. Man in our group. She has underlying end-stage renal disease, on peritoneal dialysis. She is currently moving all 4 extremities. Awake, alert, and oriented x3. No apparent distress. LABORATORY TEST: Shows white count 5, hemoglobin 16 with a potassium 4, creatinine 7.0, carbon dioxide 22, calcium 10.9. White count is 5 and hemoglobin 16.7. ALLERGIES: SHE IS ALLERGIC TO LANSOPRAZOLE. SOCIAL HISTORY: She is . Does not smoke or drink. by bedside. Her primary care physician is Dr. Shipman. She apparently had a near syncope back in August 2019. She had an MRI at that time. She had some lower extremity weakness and slurred speech at that time. MRI did not confirm anything acute. She does have a history of secondary hyperparathyroidism. She has end-stage renal disease, hyperlipidemia, and history of hypertension. PHYSICAL EXAMINATION: GENERAL: Awake, alert, and oriented x3. No apparent distress. VITAL SIGNS: Blood pressure of 165/63, pulse is 77, afebrile, and oxygen saturation 97%. HEAD AND NECK: Cornea clear. Oral mucosa moist. LUNGS: Relatively clear. HEART: S1 and S2 audible. ABDOMEN: Otherwise soft and nontender. No apparent visceromegaly. EXTREMITIES: Lower extremity examination shows no edema. PD catheter exit site satisfactory. Dressing dry. IMPRESSION AND PLAN: Possible transient ischemic attack. Strongly recommend Neurology consultation, CT brain, Cardiology evaluation, echo Doppler of carotids. I will workup hypercalcemia. Medications reviewed. Discussed with Dr. Heredia, ER physician. We may need to start IV heparin. Defer decision to her. I will arrange for peritoneal dialysis. Blood pressure appears relatively stable. Please see orders. MD AIDA Mccullough/ALISA /[id number]
--- NOTE | 2020-01-28 17:28 | Diagnostic Imaging Report ---
MRI BRAIN WO HISTORY: TIA COMPARISON: Head CT 01/28/2020 and MRI of the brain 09/22/2019 TECHNIQUE: Sagittal T2, axial T2, axial T1, axial T2/FLAIR, axial gradient echo (or susceptibility weighted), coronal T2/FLAIR, and axial diffusion weighted MR images of the brain were obtained without contrast. Susceptibility artifacts obscure some details. DISCUSSION: Scalp/bone marrow: Unremarkable. Brain sulci: Prominent. Ventricles: Compensatory dilatation. Extra-axial spaces: Unchanged 1.3 cm left frontal dural mass, just posterior to the left coronal suture, is likely an incidental meningioma. No additional masses or fluid collections. Parenchyma: Focal mild diffusion restriction (bright on DWI, isointense on ADC) is seen in the left centrum semiovale. This is compatible with subacute ischemia. Questionable additional subcentimeter focus of mild cortical diffusion restriction in the left subcentral gyrus may be an additional area of acute or subacute ischemia. No other diffusion restricting abnormalities are seen. Scattered T2/FLAIR hyperintense foci throughout the supratentorial white matter and catina are likely chronic microvascular ischemic changes. Otherwise, no mass, or hemorrhage. Vessels: Normal flow voids in major arteries and veins. Sellar/Suprasellar region: No abnormalities. Craniocervical junction: No abnormalities. Incidental findings: Bilateral ocular lens replacement. IMPRESSION: Susceptibility artifacts obscure some details. In spite of limitations: 1. Focal subacute ischemia in the left centrum semiovale. 2. Questionable subcentimeter focal area of cortical acute or subacute ischemia in the left subcentral gyrus. 3. No other acute intracranial abnormalities. Chronic findings: 1. Mild supratentorial/pontine chronic microvascular ischemic change. 2. Generalized cerebral volume loss. 3. Small left frontal meningioma without mass effect. Signed by: Dr. Christian Dasilva M.D. on 01/28/2020 5:24 PM
[2020-01-28] MEDS ORDERED: ONDANSETRON HCL INJ 2MG/ML 2ML 2 MG/ML VIAL IV PRN (18:00)
[2020-01-28] MEDS ORDERED: ACETAMINOPHEN 325 MG TAB PO PRN (18:00)
[2020-01-28] MEDS ORDERED: HYDRALAZINE HCL 20 MG/ML VIAL IV PRN (18:00)
[2020-01-28] MEDS: ASPIRIN 81 MG ENTERIC COATED PO SCH (18:04)
[2020-01-28 19:34] VITALS: BP 154/67
--- NOTE | 2020-01-28 19:45 | NUR ---
Patient received sitting up in bed. AAO x 4. Patient had no complaints of pain. Respirations even and non-labored. Admission history obtained. Initial physical assessment performed. Patient oriented to room, call light and plan of care. Safety measures implemented. Patient instructed to call for assistance when needed. Call light within reach.
[2020-01-28 20:00] VITALS: BP 154/67
[2020-01-28 21:00] VITALS: BP 154/67
--- NOTE | 2020-01-28 21:00 | NUR ---
Order received from Dr. Artem Warren for Peritoneal Dialysis.
[2020-01-28] MEDS: ATORVASTATIN 20 MG TAB PO SCH (21:12)
--- NOTE | 2020-01-28 21:12 | NUR ---
Patient informed of order for Peritoneal Dialysis. Patient verbalized understanding and voluntarily signed "Disclosure and Consent" form.
--- NOTE | 2020-01-28 21:35 | Consultation ---
DATE OF CONSULTATION: 01/28/2020 REASON FOR CONSULTATION: CVA and carotid bruit. CHIEF COMPLAINT: Right arm weakness and slurred speech. HISTORY OF PRESENT ILLNESS: This is an 84-year-old female, well known to practice with history of CAD, multiple TIAs, most recent 09/2019, end-stage renal disease on PD therapy, anemia, diabetes, hypertension, hyperlipidemia, hypothyroidism, and reflux disease. The patient presents to [facility] ER with complaints of right-sided arm weakness and slurred speech. Cardiology was consulted to evaluate the patient. CT of the head noted showing no acute abnormalities. Does show small chronic infarct in left small frontal gyrus and left frontal deep white matter. It is unchanged from previous exam. 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 On Tuesday today, the patient woke up with right arm weakness, numbness with slurred speech, lasting for an hour. She took aspirin and then came to the ER for further evaluation. The patient denies any palpitations, dizziness, chest pain, or shortness of breath. No EKG in chart. PAST MEDICAL HISTORY: CAD, status post left heart catheterization March 2018 showing 40% to 50% LAD, 40% RCA, multiple TIAs and most recent in September 2019, end- stage renal disease on PD therapy, history of also diabetes, hypertension, hyperlipidemia, hypothyroidism, palpitations, history of SVT, and reflux. ALLERGIES: TO PREVACID. PAST SURGICAL HISTORY: Left heart catheterization in 2018 and PD catheter. HOME MEDICATIONS: Include aspirin 81 mg daily, metoprolol succinate 50 mg daily, amlodipine 5 mg b.i.d., atorvastatin 20 mg daily, Protonix 40 mg daily, levothyroxine 75 mcg daily, famotidine 20 mg daily, and Plavix 75 mg daily. REVIEW OF SYSTEMS: GENERAL: Denies any weight changes, fatigue, weakness, fevers, chills, or night sweats. SKIN: No rashes or bruises. HEENT: Denies any frequency, nausea, vomiting, vision changes, blurred vision, double vision, epistaxis, sore throat, or swollen neck. CARDIAC: Denies any chest pain or palpitations. Positive for dyspnea on exertion. No orthopnea, PND, or lower extremity edema. RESPIRATORY: Denies any shortness of breath, wheezing, coughing, or hemoptysis. GI: Reports good appetite. No nausea, vomiting, diarrhea, constipation, melena, tarry or bloody stools. URINARY: Denies any frequency or urgency. VASCULAR: Denies any lower extremity edema or claudication. MUSCULOSKELETAL: Does report right-sided weakness, however, it seems to be resolved since coming to the ER. Positive for generalized joint pains and back pains. NEUROLOGIC: Reports numbness and tingling in right arm and right arm weakness, which had resolved since here in the ER. Denies any fainting, blackouts, or seizures. HEMATOLOGY: Denies easy bruising or bleeding. ENDOCRINE: Denies heat or cold intolerance, polyuria, polydipsia, or polyphagia. PHYSICAL EXAMINATION: VITAL SIGNS: Height 64 inches, weight 113 pounds, temperature 97, pulse 77, respiratory rate 18, blood pressure 165/63, and pulse ox 97% on room air. GENERAL: Appears stated age, reliable informant. No acute distress. SKIN: No rashes or bruises noted. HEENT: Normocephalic. Pupils are equal and reactive. Extraocular movement intact. Trachea midline. Positive right carotid bruit. No JVD. HEART: Regular rate and rhythm. Positive systolic murmur over the right upper sternal border. LUNGS: Bilateral breath sounds. Clear to auscultation. No wheezes or rales noted. Good airway entry and exit. ABDOMEN: Soft, nontender, and nondistended. No organomegaly noted. A PD catheter. MUSCULOSKELETAL: Good muscle strength throughout. No lower extremity edema noted. VASCULAR: +2 radial pulses bilaterally, +1 DP/PT pulses bilaterally. NEUROLOGIC: Cranial nerves 2 through 12 seem intact. LABORATORY DATA: White count 5, hemoglobin 16, hematocrit 53, and platelets 91. Sodium 142, potassium 4.0, chloride 108, BUN 33, and creatinine 7.0. CT of the brain showing small chronic infarct in the left mid frontal gyrus and left frontal deep white matter, apparently stable from previous exam. No EKG in chart. ASSESSMENT AND PLAN: 1. Transient ischemic attack, multiple, most recent September 2019. 2. Aortic stenosis. 3. Right carotid bruit. 4. Hypertension. 5. Hyperlipidemia. 6. Hypothyroidism. 7. End-stage renal disease, on PD therapy. 8. History of coronary artery disease. PLAN: The patient presents to [facility] ER with complaints of right arm weakness and numbness off and on since Tuesday. Symptoms have resolved since being here in the ER. We will get an echo to evaluate heart function, structure, and progression of aortic stenosis. We will get a carotid Doppler to evaluate carotid disease. Continue telemonitoring to evaluate any occult arrhythmias. Aspirin, statin therapy. MRI of the brain will be ordered. Given the patient's multiple TIAs, OAC therapy has been discussed with the patient and . We will re-discuss OAC therapy after MRI results. We will continue to monitor the patient. Further recommendations as clinical course dictates. Thank you very much for this consult. Dictated by Nikunj Andrade NP Homar Man MD DC/ALISA /[id number] SVITLANA
--- NOTE | 2020-01-28 22:00 | NUR ---
[place] (HAKAN) aware of inability to change attending MD to Phil PERSAUD).
--- NOTE | 2020-01-28 22:30 | NUR ---
Peritoneal Dialysis in progress.
[2020-01-29] VITALS (8 sets, daily range): BP systolic 143–166; BP diastolic 47–77
[2020-01-29] MEDS ORDERED: [UNRECOGNIZED DRUG - OTHER] PO (02:42)
[2020-01-29] MEDS ORDERED: CLOPIDOGREL75 MG PO (02:42)
[2020-01-29] MEDS ORDERED: ALPRAZOLAM0.25 M1 PO (02:42)
[2020-01-29] MEDS ORDERED: COENZYME Q-1050 MG PO (02:42)
[2020-01-29] MEDS ORDERED: MIRTAZAPINE7.5 MG PO (02:42)
[2020-01-29] MEDS ORDERED: FAMOTIDINE20 MG PO (02:42)
[2020-01-29] MEDS ORDERED: ZOFRAN4 MG PO (02:42)
[2020-01-29] MEDS ORDERED: CALCITRIOL0.25 MCG PO (02:42)
[2020-01-29 05:43] LABS: BASOPHILS % 0.5 % (0.0-1.0); EOSINOPHILS # (AUTO) 0.3 (0.0-0.4); EOSINOPHILS % 5.1 % (0.0-6.0); HEMATOCRIT 50.7 % (34.2-44.1); HEMOGLOBIN 15.9 g/dL (12.0-16.0); LYMPHOCYTES % 16.8 % (18.0-39.1); MEAN CORPUSCULAR HGB CONC 31.4 g/dL (31-35); MEAN CORPUSCULAR VOLUME 95.7 fL (81-99); MONOCYTES # (AUTO) 0.7 (0.2-0.8); MONOCYTES % 12.6 % (4.4-11.3); NEUTROPHILS # (AUTO) 3.6 (2.1-6.9); NEUTROPHILS % 64.6 % (38.7-80.0); PLATELET COUNT 89 x10e3/uL (140-360); RED CELL DISTRIBUTION WIDTH 13.5 % (11.7-14.4)
[2020-01-29] MEDS: LEVOTHYROXINE SODIUM 75 MCG TAB PO SCH (06:14)
[2020-01-29 06:21] LABS: ALBUMIN 2.6 g/dL (3.5-5.0); ALBUMIN/GLOBULIN RATIO 0.7 (0.8-2.0); ANION GAP 15.8 mmol/L (8-16); CALCIUM 10.1 mg/dL (8.4-10.2); CREATININE, SERUM 6.57 mg/dL (0.57-1.11); POTASSIUM 3.8 mmol/L (3.5-5.1)
[2020-01-29 06:45] LABS: CHOL/HDL RATIO 2.6 (3.0-3.6)
[2020-01-29 06:55] LABS: THYROID STIMULATING HORMONE 2.627 uIU/mL (0.350-4.940)
--- NOTE | 2020-01-29 07:00 | NUR ---
Patient resting comfortably. Walking rounds done. Bed-side report given to oncoming nurse.
[2020-01-29] MEDS: METOPROLOL SUCCINATE 50 MG TAB XL PO SCH (08:31)
[2020-01-29] MEDS: ASPIRIN 81 MG ENTERIC COATED PO SCH (08:31)
[2020-01-29] MEDS: PANTOPRAZOLE SOD 40 MG TABEC PO SCH (08:31)
--- NOTE | 2020-01-29 09:15 | NUR ---
ASSESSMENT: Spiritual concern Pt using humor to cope with uncertainty. Pt states the source of her illness hasn't been determined. Intervention: Provided empathic listening and information on how to reach saw sharpener, if needed. Outcome: Pt expressed appreciation for visit. No need to follow at this time. DIANNE GUPTA Delivery Room Supervisor Spiritual Care Department O: [phone]
[2020-01-29 11:57] LABS: INR 0.99; PROTHROMBIN TIME 13.7 seconds (11.9-14.5)
[2020-01-29] MEDS ORDERED: ONDANSETRON HCL 4 MG ORAL DISINTEGRATING TAB PO PRN (13:45)
--- NOTE | 2020-01-29 15:14 | Diagnostic Imaging Report ---
Examination: MRA NECK WO CONTRAST History: Stroke; TIA Comparison studies: None Technique: 2-D xxdi-qe-oubkia MR angiogram of the cervical circulation was obtained. MIP images of the arteries were isolated into the right and left cervical circulations. Degree of stenosis at the carotid bulbs, if present, will be calculated using NASCET criteria where the smallest diameter at the location of stenosis is compared to the diameter of the more distal non-diseased vessel lumen. Findings: Cervical MRA Aortic arch: Normal 3 great vessel origin. Patent. Internal carotid arteries: No flow abnormalities at the origins of the common carotid arteries, the cervical carotid bifurcations or in the cervical segments. Vertebral arteries: No flow abnormalities at the origins of the vertebral arteries or through its cervical segments (V1-V3). IMPRESSION: No cervical arterial stenosis or occlusion or vascular malformation. Signed by: Dr. Yumiko Posada M.D. on 01/29/2020 3:10 PM
--- NOTE | 2020-01-29 17:39 | NUR ---
Nutrition Screen Note RD Recommendation for Physician: - Continue current diet Plan of Care: RD following, monitoring for tolerance and adequacy Nutrition reason for involvement: DX- ESRD Primary Diagnose(s): ESRD on PD, transient cerebral attack PMH: CAD, ESRD on PD, DM, HTN, HLD, hypothyroidism Ht: 64 in Wt: 113 lb BMI: 19.4 kg/m2 IBW: [address] Assessment: (01/28) 84 YOF admitted for CVA, seen today per dx screen. Pt reports fair appetite and intake at baseline, denies any changes. Pt with 75% po intake since admit. Pt reports UBW of 106#, no wt loss noted. Pt denies any N/V/C/D. Pt with no questions or concerns at time of visit. Chart reviewed. Labs and meds reviewed. Will continue to monitor. Current Diet: Cardiac Malnutrition Evaluation (20l) The patient does not meet criteria for a specified degree of malnutrition at this time. Will re-evaluate at follow-up as appropriate. Diet Education Needs Assessment: Diet education not indicated. Diet tolerance: tolerating po Nutrition Care Level: low Signed: Lindsay Hand RD, LD, [facility]
--- NOTE | 2020-01-29 17:51 | Diagnostic Imaging Report ---
MRA HEAD WO HISTORY: Stroke COMPARISON: MRA of the neck 01/29/2020, MRI of the brain 01/28/2020 TECHNIQUE: 3D intracranial hmkx-ne-ozqfeg MRA images were obtained without contrast. Maximum intensity projection images and coronal/sagittal reformatted images were created. FINDINGS: Carotid arteries: No flow abnormalities in the intracranial internal carotid arteries. Normal A1 and M1 segments. Vertebrobasilar Circulation: Right vertebral artery: No flow abnormalities. Left vertebral artery: No flow abnormalities. Basilar artery: No flow abnormalities. Posterior cerebral arteries: No flow abnormalities. Normal Variants: ACom: Not clearly visualized. PComs: Not clearly visualized. Vertebral arteries: Co-dominant. IMPRESSION: No intracranial MRA abnormalities. Signed by: Dr. Christian Dasilva M.D. on 01/29/2020 6:49 PM
[2020-01-29] MEDS: WARFARIN SOD 5 MG TAB PO SCH (17:59)
--- NOTE | 2020-01-29 19:25 | NUR ---
Patient received lying in bed. AAO x 4. Patient undergoing Peritoneal dialysis. Safety measures implemented. Call light within reach.
--- NOTE | 2020-01-29 19:26 | Consultation ---
DATE OF CONSULTATION: Neurology consultation REASON FOR CONSULTATION: The patient with a history of stroke and carotid bruit. Comes in with transient right arm external rotation weakness and dysarthria, which is now resolved. HISTORY OF PRESENT ILLNESS: She is an 84-year-old female, history of multiple TIAs, most recently in September as well as history of coronary artery disease, and end-stage renal disease, on dialysis. She came in with a new onset right-sided weakness which resolved prior to admission. She has a history of small stroke and previous TIAs, multiple admissions for TIAs earlier this year. She is already taking Plavix and aspirin at home without resolution of these recurrent symptoms. She denies history of atrial fibrillation and previous evaluations for atrial fibrillation have been negative. Her heart has been reassuring. 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 MRI which was done shows subacute ischemia in the left Centrum semiovale, which is possibly associated with previous strokes, but rather than new one and some meningioma which is not affecting her symptomatology. SOCIAL HISTORY: Denies tobacco, alcohol, or drugs. PHYSICAL EXAMINATION: VITAL SIGNS: Temperature 98.1, heart rate is 80 and regular, and blood pressure 166/62. HEENT: Eye exam shows extraocular muscles intact. Face symmetric. Tongue is midline. Speech is clear. at this time. Reflexes symmetric. ABDOMEN: Soft and nontender. NEUROLOGIC: The patient able to stand and take two steps with minimal assistance. This is not of her normal symptomatology. ASSESSMENT AND PLAN: The patient comes in with recurrent TIAs. The etiology is not entirely clear. She is already on aspirin and Plavix. We will get a carotid evaluation with the MRA of the head and neck without contrast. Given that she has a history of end-stage renal disease, we were going to get an echocardiogram and given that her symptoms are recurrent hemiparetic, we will also get an EEG to rule out possibility of seizures or neurophysiological disturbances. The question of whether we should upgrade from aspirin and Plavix to full on anticoagulation. From neurological perspective, there is no evidence that is helpful, but there is also possible benefit in terms of stroke prevention and possible diagnosed hypercoagulable state. I will do more hypercoagulable panel from that out and we will see as we go forward. I am not averse to switching her to more aggressive anticoagulation if she is aware of the risks which were I discussed with her at length, the risk of hemorrhage or bleeding disorders with falls. MD KAYLEE ROJO/MODL /[id number]
[2020-01-29] MEDS: ATORVASTATIN 20 MG TAB PO SCH (21:21)
[2020-01-30] VITALS (7 sets, daily range): BP systolic 136–167; BP diastolic 59–71
[2020-01-30] MEDS: LEVOTHYROXINE SODIUM 75 MCG TAB PO SCH (05:37)
[2020-01-30 05:48] LABS: BASOPHILS % 0.7 % (0.0-1.0); EOSINOPHILS # (AUTO) 0.2 (0.0-0.4); EOSINOPHILS % 5.1 % (0.0-6.0); HEMATOCRIT 50.8 % (34.2-44.1); HEMOGLOBIN 16.4 g/dL (12.0-16.0); LYMPHOCYTES # (AUTO) 1.1 (1.0-3.2); LYMPHOCYTES % 24.2 % (18.0-39.1); MEAN CORPUSCULAR HEMOGLOBIN 30.8 pg (28-32); MEAN CORPUSCULAR HGB CONC 32.3 g/dL (31-35); MEAN CORPUSCULAR VOLUME 95.3 fL (81-99); MONOCYTES # (AUTO) 0.6 (0.2-0.8); MONOCYTES % 13.6 % (4.4-11.3); NEUTROPHILS # (AUTO) 2.5 (2.1-6.9); NEUTROPHILS % 56.2 % (38.7-80.0); PLATELET COUNT 89 x10e3/uL (140-360); RED BLOOD COUNT 5.33 x10e6/uL (3.6-5.1); RED CELL DISTRIBUTION WIDTH 13.5 % (11.7-14.4)
[2020-01-30 05:56] LABS: INR 0.97; PROTHROMBIN TIME 13.5 seconds (11.9-14.5)
--- NOTE | 2020-01-30 06:50 | NUR ---
patient stable no symptoms feels well 98.1 64 167/61 ncat no nuchal rigidity rrr cta abd soft nt nd aox3, fluent speech and comprehension eomi perrl face symmetric speech clear motor 4+/5 in bue scheduler conveyor strength symmetric reflexes 1/4 no ataxia a./p tia- recurrent despite ASA+ plavix and statin transition to anticoagultion, discussed risk and benefit with patient, including risk of bleeding spontanously or with falls. patient reports she does not usually fall and is safe at home vascular imaging is normal cardiac eval in progress hypercoag workup sent out. will take approx 5-7 days for full results eeg shows no evidence seizure or focal dysfunction outpt perfusion study and 72 hour eeg neuro stable, ok to dc once stable from cards, anticoagulation transition - defer to cardiology pending cards studies
--- NOTE | 2020-01-30 08:04 | NUR ---
AAOX3. ACYANOTIC. NO DISTRESS NOTED. RESTING IN BED. CALL LIGHT IN REACH. BED LOW AND LOCKED. SIDE RAILS UP X2. DIALYSIS NURSE ENDED PERITONEAL DIALYSIS TREATMENT.
[2020-01-30] MEDS: ASPIRIN 81 MG ENTERIC COATED PO SCH (08:13)
[2020-01-30] MEDS: PANTOPRAZOLE SOD 40 MG TABEC PO SCH (08:13)
[2020-01-30] MEDS: METOPROLOL SUCCINATE 50 MG TAB XL PO SCH (08:15)
--- NOTE | 2020-01-30 09:49 | Electroencephalogram ---
DATE OF STUDY: REQUESTING PHYSICIAN: STUDY: 30-minute EEG. EEG is being done for recurrent left-sided hemiparesis. She shows a posterior dominant rhythm of 10 hertz, high amplitude waves well-formed, and reactive anterior beta frequencies of 18 hertz less than 20 microvolts. EEG is reactive to stimulation in responsivity. No photic stimulations was performed. No hyperventilation was performed. No . EEG INTERPRETATION: This EEG is largely within normal limits. No underlying evidence of epilepsy or seizure activity. HIRAM APPLE MD RR/MODL /[id number]
--- NOTE | 2020-01-30 11:22 | NUR ---
Spoke to pt who said she was going to [facility]. States she has already called them and let them know she will be there tomorrow. Choice letter signed for [facility] and placed in chart. Copy to pt. MARC called and spoke to Chelsea. She asked for us to send DC order and resumption of outpatient therapy. Clinicals faxed to [phone]
[2020-01-30] MEDS: WARFARIN SOD 5 MG TAB PO SCH (17:15)
[2020-01-30] MEDS: ATORVASTATIN 20 MG TAB PO SCH (21:30)
[2020-01-31 00:29] VITALS: BP 128/60
[2020-01-31 05:18] VITALS: BP 142/63
[2020-01-31 05:36] LABS: BASOPHILS # (AUTO) 0.1 (0.0-0.1); BASOPHILS % 0.9 % (0.0-1.0); EOSINOPHILS # (AUTO) 0.3 (0.0-0.4); EOSINOPHILS % 5.1 % (0.0-6.0); HEMATOCRIT 48.6 % (34.2-44.1); HEMOGLOBIN 15.6 g/dL (12.0-16.0); LYMPHOCYTES # (AUTO) 1.3 (1.0-3.2); LYMPHOCYTES % 23.1 % (18.0-39.1); MEAN CORPUSCULAR HGB CONC 32.1 g/dL (31-35); MEAN CORPUSCULAR VOLUME 93.5 fL (81-99); MONOCYTES # (AUTO) 0.7 (0.2-0.8); MONOCYTES % 12.9 % (4.4-11.3); NEUTROPHILS # (AUTO) 3.3 (2.1-6.9); NEUTROPHILS % 57.8 % (38.7-80.0); PLATELET COUNT 90 x10e3/uL (140-360); RED CELL DISTRIBUTION WIDTH 13.6 % (11.7-14.4)
[2020-01-31] MEDS: LEVOTHYROXINE SODIUM 75 MCG TAB PO SCH (06:00)
[2020-01-31 08:21] VITALS: BP 146/59
[2020-01-31] MEDS: ASPIRIN 81 MG ENTERIC COATED PO SCH (08:30)
[2020-01-31] MEDS: PANTOPRAZOLE SOD 40 MG TABEC PO SCH (08:30)
[2020-01-31] MEDS: METOPROLOL SUCCINATE 50 MG TAB XL PO SCH (08:30)
[2020-01-31 09:00] VITALS: BP 146/59
[2020-01-31] MEDS ORDERED: COUMADIN5 MG PO (11:04)
[2020-01-31 11:35] VITALS: BP 146/59
--- NOTE | 2020-01-31 14:00 | Consultation ---
DATE OF CONSULTATION: 01/29/[address] Cardoso. HISTORY OF PRESENT ILLNESS: Eloina Ling is an 84-year-old female referred to me for stroke with an extremely high hemoglobin and hematocrit. The patient was admitted with slurred speech, lasting for an hour, weakness of the right upper extremity, numbness. Subsequently, she took aspirin. They came to the emergency room. Denied any chest pain, some palpitations, subsequently was found to have an acute stroke. HISTORY OF PAST ILLNESS: History of coronary artery disease, history of cardiac catheterization in March 2018 showing lesions, which were between 40%-50%, history of multiple TIAs in the past. The most recent being in September 2019, history of chronic renal failure on peritoneal dialysis, history of diabetes, hypertension, hyperlipidemia, hypothyroidism, history of SVT in the past. SOCIAL HISTORY: Noncontributory. FAMILY HISTORY: Noncontributory. ALLERGIES: REPORTED NONE. MEDICATIONS: At this time: 1. Protonix. 2. Ondansetron. 3. Metoprolol. 4. Synthroid. 5. Hydralazine. 6. Lipitor. 7. Aspirin. REVIEW OF SYSTEMS: HEENT: Normal. CARDIAC: History of hypertension, hyperlipidemia. RESPIRATORY: Normal. GI: Normal. : Chronic renal failure on peritoneal dialysis. MUSCULOSKELETAL: Normal. SKIN AND BREASTS: Normal. NEUROENDOCRINE: History of hypothyroidism. PHYSICAL EXAMINATION: GENERAL: A rather thin built female. No palpable adenopathy. HEART: Within normal limits. LUNGS: Clear. BREASTS: Normal. ABDOMEN: Soft. RECTAL: Vaginal exam is deferred. CENTRAL NERVOUS SYSTEM: At this time are essentially normal. LABORATORY DATA: Hemoglobin of 16.7, hematocrit of 53.8, white count 5300, platelets of 91,000. Chemistry shows a sodium of 142, potassium 4.0, chloride 108, CO2 of 22, BUN 33, creatinine 7.02, glucose 122, calcium initially was reported slightly high at 10.9, however, repeat was 10.1, total protein 7, albumin 2.9, globulin slightly high at 4.1, repeat was reported at 3.8. Parathyroid hormone slightly high at 282. Imaging consists of neck MRA, which was reported essentially normal. Also consists of head MRA, which was also reported normal. MRI of the brain was done, which showed mild supratentorial pontine chronic microvascular ischemic changes, small left frontal meningioma. The CT scan of the brain showed infarct at the left mid frontal gyrus and left frontal deep white matter. IMPRESSION: 1. Recent transient ischemic attack. 2. Ischemia left Centrum ovale. 3. Left frontal meningioma. 4. Chronic renal failure. 5. Hypoalbuminemia. 6. Hyperglobulinemia. 7. [place] syndrome. 8. History of aortic stenosis. 9. Right carotid bruit by physical exam of Dr. Man. 10. Hypothyroidism. PLAN, COMMENTS, AND SUGGESTIONS: Suggest to hold the Procrit add Coumadin. Need to bring the hematocrit down to 45, as there is higher incidence of strokes in people with chronic renal failure if the hemoglobin goes above 12. Phlebotomy was done, the hematocrit was brought down to 48. However, I will do one more phlebotomy to bring the hematocrit down to 45. I will communicate with the shredding machine tender to keep the hemoglobin close to 10 only. Thank you very much for allowing me to participate in the management of this patient. Coumadin was added. I will keep an eye on the INR as outpatient. Rafaela Chung MD MAQ/MODL /[id number] cc: MD Dr. Magda Olivares MD
--- NOTE | 2020-02-04 11:49 | Discharge Summary ---
ADMISSION DIAGNOSES: Left centrum semiovale ischemia, hypertension, hyperlipidemia, end-stage renal disease, hypothyroidism. DISCHARGE DIAGNOSES: Left centrum semiovale ischemia, hypertension, hyperlipidemia, end-stage renal disease, hypothyroidism. HISTORY: Hypertension, hyperlipidemia, hypothyroidism, GERD, end-stage renal disease with peritoneal dialysis, CAD, type 2 diabetes, SVT, TIA. SURGICAL HISTORY: Peritoneal dialysis catheter, hysterectomy, cholecystectomy, appendectomy. FAMILY HISTORY: The patient's mother had a stroke. SOCIAL HISTORY: Noncontributory. HOSPITAL COURSE: An 84-year-old female admits with complaints of right arm numbness and tingling that started on Tuesday. It went away, so she did not worry about it. When it returned on Tuesday, she came to the ER. She was diagnosed with TIA and was sent home. She returned on Tuesday when the symptoms returned. On admission, CT of the brain showed no acute abnormality. Chest x-ray was negative. MRI of the brain showed focal subacute ischemia in the left centrum semiovale, questionable subcentimeter focal area of cortical acute or subacute ischemia in the left subcentral gyrus. No other acute intracranial abnormality. Neurology was consulted as was Cardiology and Hematology. MRA of the head was negative. MRI of the neck showed no cervical arterial stenosis, acute occlusion or vascular malformation. Echo showed an EF of 61% with impaired diastolic relaxation. EEG was largely within normal limits. No evidence of epilepsy or seizure. The patient's parathyroid was found to be 282. She was advised to follow up with Nephrology and primary care regarding that number. Per Hematology recommendation, the patient was stopped on Plavix and started on Coumadin. She had 2 phlebotomy treatments as her hematocrit was over 50. The first phlebotomy treatment, they only pulled 200 mL, so the second day she had an additional one, where they pulled 350 mL. Per Hematology recommendation, the patient is able to discharge home. She was given a prescription for Coumadin 5 mg p.o. daily. She will follow up with primary care, Cardiology, and Hematology in 1 to 2 weeks. The patient and understand discharge instructions and agrees to plan. Her outpatient rehab was resumed per Physical Therapy recommendation. Dictated by Aditi Bautista NP Avni Cardoso MD JESSE/MODL /[id number]
== END 2020-01-31 12:27 | disposition home or self-care (01) ==
LOC: ER 10:50 → INTOOBSV 12:38 → ERHOLD 12:38 → MED/SURG2 18:42
PROVIDERS: ADMIT Internal Medicine; ATTEND Internal Medicine
DX: I63.9 Cerebral infarction, unspecified (principal); I67.82 Cerebral ischemia; E78.5 Hyperlipidemia, unspecified; I12.0 Hypertensive chronic kidney disease with stage 5 chronic kidney disease or end stage renal disease; E11.22 Type 2 diabetes mellitus with diabetic chronic kidney disease; N18.6 End stage renal disease; Z99.2 Dependence on renal dialysis; Z79.4 Long term (current) use of insulin; I25.10 Atherosclerotic heart disease of native coronary artery without angina pectoris; K21.9 Gastro-esophageal reflux disease without esophagitis; Z86.73 Personal history of transient ischemic attack (TIA), and cerebral infarction without residual deficits; I35.0 Nonrheumatic aortic (valve) stenosis; D32.9 Benign neoplasm of meninges, unspecified; D75.1 Secondary polycythemia; R77.1 Abnormality of globulin; E88.09 Other disorders of plasma-protein metabolism, not elsewhere classified
CPT/HCPCS: 36415 ×4; 70450; 70544; 70547; 70551; 71045; 80053 ×2; 80061; 82550; 82553; 83036; 83970; 84443; 84484; 85025 ×4; 85300; 85597; 85598; 85610 ×2; 85613; 85730; 85732; 86146 ×3; 86147; 86148; 86849; 87635; 93005; 93306; 93880; 95812; 97116; 97139; 97161; 99284; G0378 ×4; S0164 ×3

== ENCOUNTER 2020-04-22 11:41 | Emergency (ER) | payer MEDICARE ==
[~2020-04-22] VITALS: Ht 162.6 cm; Wt 51.3 kg
[~2020-04-22 11:41] MED LIST changes: +ALPRAZOLAM0.25 M1 PO; +CLOPIDOGREL75 MG PO; +COENZYME Q-1050 MG PO; +COUMADIN5 MG PO; +MIRTAZAPINE7.5 MG PO; +ZOFRAN4 MG PO; +[UNRECOGNIZED DRUG - OTHER] PO
--- NOTE | 2020-04-22 12:14 | Emergency Department Note ---
History of Present Illnes History of Present Illness Chief Complaint: Neurological History of Present Illness This is a 84 year old female Chief Complaint Comment PATIENT IN FROM HOME WITH COMPLAINTS OF LEFT SHOULDER PAIN, DIFFICULTY HOLDING THINGS, AND SLURRED SPEECH STARTING AT 1055 TODAY. PATIENT STATES THAT DIFFICULTY HOLDING THINGS AND SLURRED SPEECH HAS SINCE RESOLVED. 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 Any updates have been documented here. Past Medical History Recent Fever: No Clinical Suspicion of Infectio: No New/Unexplained Change in Ment: No Past Medical History: Hypertension, TIA, Hypothyroidism, UTI's, ESRD, Anemia, Hyperlipedemia, Chronic Kidney Disease, Osteoarthritis Other Medical History: PERITONEAL DIALYSIS Past Surgical History: Appendectomy, Hysterectomy Other Surgery: PERITONEAL DIALYSIS ACCESS CATARACT Social History Physically hurt or threatened: No Other Last Tetanus: UNKNOWN Review of Systems Review of Systems Constitutional: Reports no symptoms EENTM: Reports no symptoms Cardiovascular: Reports no symptoms Respiratory: Reports no symptoms Gastrointestinal: Reports no symptoms Genitourinary: Reports no symptoms Musculoskeletal: Reports as per HPI Integumentary: Reports no symptoms Neurological: Reports no symptoms Psychological: Reports no symptoms Endocrine: Reports no symptoms Hematological/Lymphatic: Reports no symptoms Physical Exam Related Data Allergies: Coded Allergies: lansoprazole (Verified Allergy, Intermediate, ITCHING, 04/22/20) Triage Vital Signs Vital Signs Date Time Temp Pulse Resp B/P (MAP) Pulse Ox O2 Delivery O2 Flow Rate FiO2 04/22/20 11:47 97.7 61 18 117/57 100 Room Air Vital signs reviewed: Yes Physical Exam CONSTITUTIONAL Constitutional: Present well-developed, Present well-nourished HENT HENT: Present normocephalic, Present atraumatic, Present oropharynx clear/moist, Present nose normal HENT L/R: Present left ext ear normal, Present right ext ear normal EYES Eyes: Reports PERRL, Reports conjunctivae normal NECK Neck: Present ROM normal PULMONARY Pulmonary: Present effort normal, Present breath sounds normal CARDIOVASCULAR Cardiovascular: Present regular rhythm, Present heart sounds normal, Present capillary refill normal, Present normal rate GASTROINTESTINAL Abdominal: Present soft, Present nontender, Present bowel sounds normal GENITOURINARY Genitourinary: Present exam deferred SKIN Skin: Present warm, Present dry MUSCULOSKELETAL Musculoskeletal: Present ROM normal NEUROLOGICAL Neurological: Present alert, Present oriented x 3, Present no gross motor or sensory deficits; Absent cranial nerve deficit, Absent abnormal coordination, Absent weakness PSYCHOLOGICAL Psychological: Present mood/affect normal, Present judgement normal Results Laboratory Lab results reviewed: Yes Imaging Imaging results reviewed: Yes Procedures 12 Lead ECG Interpretation ECG Interpretation : Yard Crane Operator: Interpreted by ED physician Date: Apr 22, 2020 Prior ECG tracings: reviewed Rhythm: sinus rhythm Rate: normal QRS axis: normal ST segment flattening: V4, V5, V6 T waves normal: Yes Clinical Impression: non-specific ECG Assessment & Plan Medical Decision Making MDM 84-year-old female with a history of prior TIAs presents to emergency department for left arm weakness and left shoulder pain. She states she had an episode of slurred speech, left arm weakness and shoulder pain which has largely resolved at this time. She was recently admitted for TIA and discharged home on aspirin and Plavix. Examination shows no focal neurologic deficits patient appears to be baseline. CT head, labs are largely unremarkable. Discussed management with patient and due to her recent extensive workup we will discharge her home to follow up with her primary care provider. Doubt emergent process at this time. I discussed results patient as well as expected disease time course and management. They will follow up with their primary care provider or return to the emergency department for new or worsening symptoms. Patient's appropriate for discharge. Part of this note was dictated with Marcelo and is subject to recognition errors. Reassessment Reassessment time: 14:03 Reassessment Well appearing, NAD Assessment & Plan Final Impression: (1) TIA (transient ischemic attack) Depart Disposition: HOME, SELF-CARE Last Vital Signs Date Time Temp Pulse Resp B/P (MAP) Pulse Ox O2 Delivery O2 Flow Rate FiO2 04/22/20 11:47 97.7 61 18 117/57 100 Room Air Home Meds Active Scripts Warfarin Sodium (COUMADIN) 5 Mg Tablet, 5 MG PO QD17 for 30 Days Prov:SHEL[employer] 01/31/20 Reported Medications Ondansetron Hcl* (ZOFRAN*) 4 Mg Tablet, 4 MG PO PRN 01/29/20 Alprazolam (ALPRAZOLAM) 0.25 Mg Tab.rapdis, 0.25 MG PO PRN 01/29/20 Ubidecarenone (Coenzyme Q-10) 50 Mg Capsule, 100 MG PO DAILY 01/29/20 Mirtazapine (MIRTAZAPINE) 7.5 Mg Tablet, 7.5 MG PO HS, TAB 01/29/20 Famotidine (FAMOTIDINE) 20 Mg Tab, 20 MG PO DAILY, #30 TAB 01/29/20 Calcitriol (CALCITRIOL) 0.25 Mcg Capsule, 0.25 MG PO DAILY, #30 TAB 01/29/20 [proliva] No Conflict Check, 160 MG PO q6 months 01/29/20 Sevelamer Carbonate (RENVELA) 0.8 Gm Powd.pack 11/12/18 Cinacalcet Hcl (SENSIPAR) 30 Mg Tablet, 60 MG PO 2100, #30 TAB 11/12/18 Pantoprazole Sodium* (PROTONIX) 40 Mg Tablet.dr, 40 MG PO DAILY 08/21/18 Terazosin Hcl (TERAZOSIN HCL) 1 Mg Capsule, 2 MG PO HS, #30 CAP 05/15/18 Fexofenadine Hcl (SADIQ ALLERGY) 180 Mg Tablet, 160 MG PO PRN PRN for ALLERGY 03/31/14 Aspirin (ASPIR 81) 81 Mg Tablet.dr, 81 MG PO HS 03/31/14 Atorvastatin Calcium (ATORVASTATIN CALCIUM) 10 Mg Tablet, 20 MG PO HS 05/13/13 Metoprolol Succinate (METOPROLOL SUCCINATE) 50 Mg Tab.er.24h, 50 MG PO HS 05/13/13 Levothyroxine Sodium (LEVOTHROID) 75 Mcg Tablet, 75 MCG PO DAILY 05/13/13 Amlodipine Besylate (AMLODIPINE BESYLATE) 5 Mg Tablet, 5 MG PO DAILY 05/13/13 CLAU MACIAS MD Apr 22, 2020 12:14
--- OUTSIDE RECORDS SUMMARY | 2020-04-22 12:34 | XMS REPORT ---
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 Name Role Phone Jeffry Parker CP Unavailable Allergies, Adverse Reactions, Alerts Substance Reaction Event Type Plavix rash Drug Allergy Fosamax severe muscle cramping Non Drug Allergy Problems Problem Type Condition Code Onset Dates Condition Statu s Assessment Osteopenia of multiple sites M85.89 Active Assessment Rheumatoid arthritis of multiple sites w ithout rheumatoid factor M06.09 Active Problem Muscle spasm M62.838 Active Problem ESRD (end stage renal disease) N18.6 Active Problem Osteopenia of multiple sites M85.89 Active Problem Other jail (current) drug therapy Z79.899 Active Problem Rheumatoid arthritis of multiple sites without r heumatoid factor M06.09 Active Problem Vitamin D deficiency E55.9 Active Problem Osteoporosis M81.0 Active Medications Medication Code System Code Instructions Start Date End Date Status Dosage Aspirin [facility] 32751628736 81 MG Orally every night Act bhavna 2 tablets Terazosin HCl [facility] [address]-12 1 MG Orally Once a day Active 1 null at bedtime Paroxetine HCl ND 07094267914 10 MG Orally Once a day Active 1 tablet in the morning Amlodipine Besylate ND 61979338845 5 MG Orally Once a day Active 1/2 tablet Clopidogrel Bisulfate ND 56713776242 75 MG Orally Once a day Active 1 tablet Prolia [facility] 94919968475 60 MG/ML Subcutaneous q 6 months February 23 20 Active as directed Mirtazapine [facility] 54250581367 7.5 MG Orally Once a day Active 2 tablets at bedtime Metoprolol Tartrate ND 60988127109 50 MG Orally Once a day Active 1 tablet Vitamin D (Ergocalciferol) [facility] 66942291219 28212 UNIT Ora lly once a week November 13, 2018 Active 1 capsule Nubia ND 0 160 MG Orally Once a day Active 1 tablet as needed Famotidine ND 40341107545 20 MG Orally Once a day A ctive 1 tablet Calcitriol [facility] 09788456272 0.25 MCG Orally Once a day Active 1 capsule Co Q 10 [facility] 95097-50744 100 MG Orally Once a day Act bhavna 1 capsule with a meal Levothyroxine Sodium [facility] 70667055198 75 MCG Orally Once a day Active 1 tablet Atorvastatin Calcium [facility] 73081155085 20 MG Orally Once a day Active 1 tablet Alprazolam [facility] 62296371049 0.25 MG Orally Twice a day Active 1 tablet Pantoprazole Sodium [facility] 60968702694 40 MG Orally Once a day Active 1 tablet Sensipar [facility] 15965283469 60 MG Orally Once a day Act bhavna 1 tablet with food or after a meal Vital Signs Date/Time: February 21, 2020 BMI 18.92 Index Weight 106.8 lbs Height 63 in Temperature 97.2 F Cardiac Monitoring Heart Rate 68 /min Blood Pressure Diastolic 48 mm Hg Blood Pressure Systolic 118 mm Hg Results No Known Results Summary Purpose [employer] Submission
--- OUTSIDE RECORDS SUMMARY | 2020-04-22 12:34 | XMS REPORT | Continuity of Care Document ---
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 Role Phone [employer] Unavailable Un available Problems Problem Status Onset Date Classification Date Reported Comments Source Cervicalgia 08/18/2018 03/01/2019 [facility] [place] [place] CERVICAL Active 05/11/2018 [facility] [place] UNK Active 0 10/18/2016 [facility] Z12.31 - ENCNTR SCREEN MAMMOGRAM FOR MA Active 07/30/2015 [facility] [place] 585.4 Active 03/04/2015 [facility] 585.2 Active 07/30/2014 [facility] Gastroesophageal reflux disease (disorder) Active Problem 07/22/2019 [facility] [place],[facility] [place], [facility] [place] Anemia of chronic renal failure (disorder) Active Problem 07/22/2019 [facility] [place],[facility] [place], [facility] [place] Diabetes mellitus (disorder) A ctive Problem [facility] [place] [place], [facility] [place] Hearing loss (finding) Active Problem 07/22/2019 [facility] [place] [place], [facility] [place] Hypertensive disorder, systemic arterial (disorder) Active Problem 07/22/2019 [facility] [place],[facility] [place], [facility] [place] Hypercholesterolemia (disorder) Active Problem [facility] [place],[facility] [place], [facility] [place] Hypertriglyceridemia (disorder) Active Problem [facility] [place],[facility] [place], [facility] [place] Hypothyroidism (disorder) Acti ve Problem [facility] [place],[facility] [place], [facility] [place] Renal failure syndrome (disorder) Active Problem [facility] [place] [place], [facility] [place] Incisional hernia of anterior abdominal wall (disorder ) Active Problem 07/22/2019 [facility] [place] [place], [facility] [place] Anxiety (finding) Active Problem 07/22/2019 [facility] [place], [place] [place], [facility] [place] Weakness 01/29/2019 [facility] [place] Abnormal posture 03/01/2019 [facility] [place] Encounter for screening mammogram for ma lignant neoplasm of breast 07/22/2019 [facility] [place] Spondylolisthesis, cervical region 11/19/2018 [facility] [place] Muscle weakness (generalized) 03/01/2019 [facility] [place] Hypothyroidism Active 01/03/2014 [facility] Essential Hypertension Active 01/03/2014 [facility] Chronic Kidney Disease, Stage 2 Active 01/03/2014 [facility] Vaccines Prophylactic Need Against Influenza Active 11/08/2013 [facility] Fainting - Unconscious About 1-5 Minutes Active 06/18/2013 [facility] Diabetes Mellitus Under Control Active 01/03/2014 [facility] Nonspecific Abnormal Results Of Function Studies Active 11/08/2013 [facility] Automatism Active 11/08/2013 [facility] 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 [facility] Anxiety Disorder NOS Active 01/03/2014 [facility] Vitamin B12 Deficiency Active 01/03/2014 [facility] Hyperlipidemia Active 01/03/2014 [facility] Esophageal Reflux Active 01/03/2014 [facility] Urinary Incontinence Active 01/03/2014 [facility] Vitamin D deficiency Active Problem 03/19/2020 [facility] Osteoporosis Active Problem 03/19/2020 [facility] Sou[facility] ESRD (end stage renal disease) Active Problem [facility] Other retirement (current) drug therapy Active Problem [facility] Active Prob malvin 03/19/2020 [facility] Muscle spasm Active Problem 03/19/2020 [facility] Osteopenia of multiple sites A ctive Problem [facility] Long-term (current) use of other [...] unspecified finger Active Diagnosis 09/15/2019 [facility] Sou[facility] CHRONIC KIDNEY DISEASE, STAGE 4 (SEVERE) Active [facility] END STAGE RENAL DISEASE Active [facility] Medications Medication Details Route Status Patient Instructions Ordering Provider Order Date Source Prolia as directed Subcutaneous Active 60 MG/ML Subcutaneous q 6 months Parker 02/24/2020 Castillo Souza Vitamin D (Ergocalciferol) 1 c apsule Orally Active 71442 UNIT Orally once a week Parker 11/13/2018 Castillo Souza Prolia as directed Subcutaneous Active 60 MG/ML Subcutaneous q 6 months Souza 10/05/2018 Castillo Souza Prolia 60MG SQ Subcutaneous Active 60 MG/ML Subcutaneous Q 6 MONTHS Ozuna 08/31/2017 Castillo Souza Prolia 60MG SQ Subcutaneous Active 60 MG/ML Subcutaneous Q 6 MONTHS Fakoya 06/22/2017 Castillo Souza Voltaren Gel apply to affected area Transdermal Active 1% Transdermal Four times a day Fakoya 04/05/2017 Castillo Souza Vitamin D (Ergocalciferol) 1 c apsule Orally Active 50,000 Orally ONCE A WEEK Souza 12/20/2016 Castillo Sou[facility] Oxycodone Hydrochloride 5 MG Oral Tablet 5 mg, Route: PO, Drug form: TAB, ONCE, Dosing Weight 59.545, kg, PRN Pain Score 4-6, Start date: 11/04/16 11:10:00 ASSISTANT ART DIRECTOR Inactive 11/04/2016 [facility] labetalol (ANES) Route: IVDr sierra form: INJ, ONCE, Stop date: 11/04/16 10:12:00 ASSISTANT ART DIRECTOR Inactive 11/04/2016 [facility] ePHEDrine (ANES) Route: IVDr sierra form: INJ, ONCE, Stop date: 11/04/16 9:58:00 ASSISTANT ART DIRECTOR Inactive 11/04/2016 [facility] famotidine (ANES) Route: IV, D rug form: INJ, ONCE, Stop date: 11/04/16 9:58:00 ASSISTANT ART DIRECTOR Inactive 11/04/2016 [facility] ondansetron (ANES) Route: IV, Drug form: INJ, ONCE, Stop date: 11/04/16 9:58:00 ASSISTANT ART DIRECTOR Inactive 11/04/2016 [facility] fentaNYL (ANES) Route: IV, Kushal g form: INJ, ONCE, Stop date: 11/04/16 9:58:00 ASSISTANT ART DIRECTOR Inactive 11/04/2016 [facility] propofol (ANES) Route: IV, Kushal g form: INJ, ONCE, Stop date: 11/04/16 9:58:00 ASSISTANT ART DIRECTOR Inactive 11/04/2016 [facility] lidocaine (ANES) Route: IV, Dr ug form: INJ, ONCE, Stop date: 11/04/16 9:58:00 ASSISTANT ART DIRECTOR Inactive 11/04/2016 [facility] rocuronium (ANES) Route: IV, D rug form: INJ, ONCE, Stop date: 11/04/16 9:58:00 ASSISTANT ART DIRECTOR Inactive 11/04/2016 [facility] neostigmine (ANES) Route: IV, Drug form: INJ, ONCE, Stop date: 11/04/16 9:58:00 ASSISTANT ART DIRECTOR Inactive 11/04/2016 [facility] glycopyrrolate (ANES) Route: I V, Drug form: INJ, ONCE, Stop date: 11/04/16 9:58:00 ASSISTANT ART DIRECTOR Inactive 11/04/2016 [facility] acetaminophen-codeine #3 2 tab , Route: PO, Drug Form: TAB, Dosing Weight 59.545, kg, Q4H, PRN Pain Score 4-6, Start date: 11/04/16 9:53:00 ASSISTANT ART DIRECTOR, Duration: 30 day, Stop date: 12/04/16 9:52:00 CDT Inactive 11/04/2016 [facility] Morphine 2 mg, Route: IVP, Q3H , Dosing Weight 59.545, kg, PRN Pain Score 1-3, Start date: 11/04/16 9:53:00 ASSISTANT ART DIRECTOR, Duration: 30 day, Stop date: 12/04/16 9:52:00 CDT Inactive 11/04/2016 [facility] vancomycin (ANES) (ANES) Route : IV, Drug form: INJ, Start date: 11/04/16 9:19:00 ASSISTANT ART DIRECTOR, Stop date: 11/04/16 10:19:00 ASSISTANT ART DIRECTOR Inactive 11/04/2016 [facility] ceFAZolin (ANES) (ANES) Route: IV, Drug form: INJ, Start date: 11/04/16 9:19:00 ASSISTANT ART DIRECTOR, Stop date: 11/04/16 10:19:00 ASSISTANT ART DIRECTOR Inactive 11/04/2016 [facility] sodium chloride 0.9% 500 ml INJ (ANES) Route: IV, Total Volume: 500, Start date: 11/04/16 9:10:00 ASSISTANT ART DIRECTOR, Stop date: 11/04/16 10:10:00 ASSISTANT ART DIRECTOR Inactive 11/04/2016 [facility] sodium chloride 0.9% 500 ml INJ 500 mL 500 mL, Rate: 40 ml/hr, Infuse over: 12.5 hr, Route: IV, Dosing Weight 59.545 kg, Total Volume: 500, Start date: 11/04/16 8:04:00 ASSISTANT ART DIRECTOR, Duration: 1 day, Stop date: 11/05/16 8:03:00 ASSISTANT ART DIRECTOR Inactive 11/04/2016 [facility] Lactated Ringers 1,000 mL 1,00 0 mL, Rate: 40 ml/hr, Infuse over: 25 hr, Route: IV, Dosing Weight 59.545 kg, Total Volume: 1,000, Start date: 11/04/16 8:03:00 ASSISTANT ART DIRECTOR, Duration: 1 day, Stop date: 11/05/16 8:02:00 ASSISTANT ART DIRECTOR Inactive 11/04/2016 [facility] Vitamin D3 50,000 intl units oral capsule 50,000 IntlUnit = 1 cap, PO, qWeek, # 12 cap, 0 Refill(s) Active 10/28/2016 [facility] glimepiride 1 mg oral tablet 1 mg = 1 tab, PO, Daily, 0 Refill(s) Active 10/28/2016 [facility] Ancef Notes: Same as: Ancef No Longer Active 10/28/2016 [facility] Vancomycin 2001 mg: infuse ov er 2.5 hours MEDICATION WASTE Product Size: 1000 mg Product Wasted: ___ mg No Longer Active 10/28/2016 [facility] Famotidine 10 MG Oral Tablet 1 0 mg = 1 tab, PO, BID, 0 Refill(s) Active 10/28/2016 [facility] Vitamin D (Ergocalciferol) 1 c apsule Orally Active 93947 UNIT Orally Once a week [place] 09/10/2016 [facility] PredniSONE 2 tablets with food or milk Orally Active 5 MG Orally Once a day Souza 02/09/2016 [facility] Nexium 1 capsule Orally Active 40 MG Orally Once a day [place] 02/09/2016 [facility] propofol (ANES) Route: IV, Kushal g form: INJ, ONCE, Stop date: 11/24/15 9:58:00 Inactiv e 11/24/2015 [facility] lidocaine (ANES) Route: IV, Dr ug form: INJ, ONCE, Stop date: 11/24/15 9:58:00 Inactiv e 11/24/2015 [facility] fentaNYL (ANES) Route: IV, Kushal g form: INJ, ONCE, Stop date: 11/24/15 9:53:00 Inactiv e 11/24/2015 [facility] midazolam (ANES) Route: IV, Dr ug form: SOLN, ONCE, Stop date: 11/24/15 9:53:00 Inactiv e 11/24/2015 [facility] ceFAZolin (ANES) Route: IV, Dr ug form: INJ, ONCE, Stop date: 11/24/15 9:53:00 Inactiv e 11/24/2015 [facility] Oxycodone Notes: (Same as: Odilia icodone) Inactive 11/24/2015 [facility] Flumazenil Notes: (Same as: Ro mazicon) Inactive 11/24/2015 [facility] Meperidine Notes: (Same As: De merol) Inactive 11/24/2015 [facility] Naloxone Notes: Same as Narcan Inactive 11/24/2015 [facility] Fentanyl Notes: (Same as: Subl imaze) Preservative free. Inactive 11/24/2015 [facility] Hydromorphone 0.5 mg, 0.5 mL, Route: IVP, Drug form: INJ, Q5Min, Dosing Weight 57.784, kg, PRN Pain Score 7-10, Start date: 11/24/15 9:51:00, Duration: 4 doses or times, Stop date: Limited # of times Inactive 11/24/2015 [facility] Ondansetron Notes: (Same as: Carolann ardon) MEDICATION WASTE Product Size: 4 mg Product Wasted: ___ mg Inactive 11/24/2015 [facility] Hydralazine Notes: (Same as: A presoline) Push over 5 minutes Inactive 11/24/2015 [facility] ondansetron (ANES) Route: IV, Drug form: INJ, ONCE, Stop date: 11/24/15 9:43:00 Inactiv e 11/24/2015 [facility] vancomycin (ANES) (ANES) Route : IV, Drug form: INJ, Start date: 11/24/15 9:11:00, Stop date: 11/24/15 10:11:00 Inactive 11/24/2015 [facility] Sodium Chloride 0.154 MEQ/ML Injectable Solution 500 mL, Rate: 25 ml/hr, Infuse over: 20 hr, Route: IV, Dosing Weight 57.784 kg, Total Volume: 500, Start date: 11/24/15 9:09:00, Duration: 30 day, Stop date: 12/24/15 9:08:00 Inactive 11/24/2015 [facility] Sodium Chloride 0.9% IV (ANES) (ANES) Route: IV, Total Volume: 500, Start date: 11/24/15 9:08:00, Stop date: 11/24/15 10:08:00 Inactive 11/24/2015 [facility] Calcium Chloride 0.0014 MEQ/ML / Potassi um Chloride 0.004 MEQ/ML / Sodium Chloride 0.103 MEQ/ML / Sodium Lactate 0.028 MEQ/ML Injectable Solution 1,000 mL, Rate: 25 ml/hr, Infuse over: 4 0 hr, Route: IV, Dosing Weight 57.784 kg, Total Volume: 1,000, Start date: 11/24/15 9:08:00, Duration: 30 day, Stop date: 12/24/15 9:07:00 Inactive 11/24/2015 [facility] Vancomycin 2001 mg: infuse ov er 2.5 hours MEDICATION WASTE Product Size: 1000 mg Product Wasted: ___ mg No Longer Active 11/17/2015 [facility] Ancef Notes: Same as: Ancef No Longer Active 11/17/2015 [facility] Hydralazine 10 mg, Route: IVP, Q20Min, Dosing Weight 60, kg, PRN Elevated BP, Start date: 03/24/15 13:35:00, Duration: 2 doses or times, Stop date: Limited # of times Inactive 03/24/2015 [facility] Glycopyrrolate 0.2 mg, Route: IVP, Q5Min, Dosing Weight 60, kg, PRN Bradycardia, Start date: 03/24/15 13:35:00, Duration: 3 doses or times, Stop date: Limited # of times Inactive 03/24/2015 [facility] Ondansetron 4 mg, Route: IVP, ONCE, Dosing Weight 60, kg, PRN Nausea & Vomiting, Start date: 03/24/15 13:35:00 Inactive 03/24/2015 [facility] Flumazenil 0.2 mg, Route: IVP, PRN, Dosing Weight 60, kg, PRN Benzodiazepine Reversal, Initial dose, Start date: 03/24/15 13:35:00, Duration: 30 day, Stop date: 04/23/15 13:34:00 Inactive 03/24/2015 [facility] Meperidine 12.5 mg, Route: IVP , Q30Min, Dosing Weight 60, kg, PRN Other -See Comment, For shivering, Start date: 03/24/15 13:35:00, Duration: 2 doses or times, Stop date: Limited # of times Inactive 03/24/2015 [facility] Promethazine 6.25 mg, Route: I VPB, ONCE, Dosing Weight 60, kg, PRN Nausea & Vomiting, Start date: 03/24/15 13:35:00 Inactive 03/24/2015 [facility] Naloxone 0.04 mg, Route: IVP, Q2MIN, Dosing Weight 60, kg, PRN Narcotic Reversal, Start date: 03/24/15 13:35:00, Duration: 8 doses or times, Stop date: Limited # of times Inactive 03/24/2015 [facility] Morphine 4 mg, Route: IVP, Q5M in, Dosing Weight 60, kg, PRN Pain Score 7-10, Start date: 03/24/15 13:35:00, Duration: 3 doses or times, Stop date: Limited # of times Inactive 03/24/2015 [facility] Hydromorphone 0.5 mg, Route: I GATE PERSON, Q5Min, Dosing Weight 60, kg, PRN Pain Score 7-10, Start date: 03/24/15 13:35:00, Duration: 4 doses or times, Stop date: Limited # of times Inactive 03/24/2015 [facility] Diphenhydramine 12.5 mg, Route : IVP, Drug form: INJ, Q6H, Dosing Weight 60, kg, PRN Itching, Start date: 03/24/15 13:35:00, Duration: 30 day, Stop date: 04/23/15 13:34:00 Inactive 03/24/2015 [facility] Fentanyl 25 microgram, Route: IVP, Q5Min, Dosing Weight 60, kg, PRN Pain Score 4-6, Start date: 03/24/15 13:35:00, Duration: 4 doses or times, Stop date: Limited # of times Inactive 03/24/2015 [facility] Ketorolac 4 days MEDICA TION WASTE Product Size: 30 mg Product Wasted: ___ mg Inactive 03/24/2015 [facility] Oxycodone 10 mg, Route: PO, Dr ug form: TAB, Q4H, Dosing Weight 60, kg, PRN Pain Score 7-10, Start date: 03/24/15 13:35:00, Duration: 30 day, Stop date: 04/23/15 13:34:00 Inactive 03/24/2015 [facility] Metoprolol 1 mg, Route: IVP, Q 5Min, Dosing Weight 60, kg, PRN Other -See Comment, Start date: 03/24/15 13:35:00, Duration: 5 doses or times, Stop date: Limited # of times Inactive 03/24/2015 [facility] acetaminophen-codeine #3 1 tab , Route: PO, Drug Form: TAB, Dosing Weight 60, kg, Q4H, PRN Pain Score 4-6, Start date: 03/24/15 13:01:00, Duration: 30 day, Stop date: 04/23/15 13:00:00 Inactive 03/24/2015 [facility] Morphine 2 mg, Route: IVP, Q3H , Dosing Weight 60, kg, PRN Pain Score 1-3, Start date: 03/24/15 13:01:00, Duration: 30 day, Stop date: 04/23/15 13:00:00 Inactive 03/24/2015 [facility] Ancef 2 gm, Route: IVPB, ONCE, Dosing Weight 60, kg, Start date: 03/24/15 11:43:00, Duration: 1 doses or times, Stop date: 03/24/15 11:43:00 Inactive 03/24/2015 [facility] Sodium Chloride 0.154 MEQ/ML Injectable Solution 500 mL, Rate: 25 ml/hr, Infuse over: 20 hr, Route: IV, Dosing Weight 60 kg, Total Volume: 500, Start date: 03/23/15 8:26:00, Duration: 2 day, Stop date: 03/25/15 8:25:00 No Longer Active 03/23/2015 [facility] Vancomycin Notes: TIME CRITICA L MEDICATION No Longer Active 03/17/2015 [facility] Atorvastatin Calcium 10 MG Oral Tablet ; Start Date: 11/08/2013; End Date: (Active) Active 11/08/2013 [facility] Fenofibrate 48 MG Oral Tablet ; [...] Extended Release 24 Hour (Active) A ctive [facility] Levothyroxine Sodium 75 MCG Oral Tablet (Active) Active [facility] Omeprazole 20 MG Oral Capsule Delayed Release (Active) Active [facility] Atorvastatin Calcium 10 MG Oral Tablet (Active) Active [facility] AmLODIPine Besylate 5 MG Oral Tablet (Active) Active [facility] Cyanocobalamin 1000 MCG/ML Injection Solution (Active) Active [facility] Fenofibrate 48 MG Oral Tablet (Active) Active [facility] Allergy TABS (Active) Active [facility] Fish Oil CAPS (Active) Active [facility] Losartan Potassium 25 MG Oral Tablet (Active) Active [facility] Nubia Allergy 180 MG Oral Tablet (Active) Active [facility] Integra Plus CAPS (Active) Active [facility] Fish Oil Concentrate 1000 MG Oral Capsule (Active) Active [facility] Clopidogrel Bisulfate 75 MG Oral Tablet (Active) Active [facility] Integra Plus Oral Capsule (Ac tive) Active [facility] Metoprolol Succinate ER 50 MG Oral Table t Extended Release 24 Hour (Active) A ctive [facility] Gabapentin 100 MG Oral Capsule (Active) Active [facility] Metoprolol Tartrate 1 tablet Orally Active 50 MG Orally Once a day Ranjit Castillo Souza Nubia 1 tablet as needed Orally Active 160 MG Orally Once a day Elena Souza Vitamin D (Ergocalciferol) 1 c apsule Orally Active 50,000 Orally ONCE A WEEK [facility] Castillo Souza Aspir-81 1 tablet Orally Active 81 MG Orally Once a day [facility] Farshad Souza Prolia 60MG SQ Subcutaneous Active 60 MG/ML Subcutaneous Q 6 MONTHS [facility] Castillo Souza Calcitriol 1 capsule Orally Active 0.25 MCG Orally Once a day [facility] Castillo Souza Levothyroxine Sodium 1 tablet Orally Active 75 MCG Orally Once a day [facility] Castillo Souza Paroxetine HCl 1 tablet in the morning Orally Active 10 MG Orally Once a day [facility] Castillo Souza [place] 3 1 capsule Orally Active 1200 mg Orally Once a d ay [facility] Farshad Souza Sodium Bicarbonate 1 tablet Orally Active 650 MG Orally twice a day [facility] Castillo Souza Famotidine 1 tablet as needed Orally Active 10 MG Orally Twice a day [facility] Castillo Souza Ergocalciferol 1 capsule Orally Active 1000 mg Orally Once a d ay [facility] Castillo Souza Cyanocobalamin 1 ml Injection Active 1000 MCG/ML Injection O nce a month [facility] Castillo Souza Amlodipine Besylate 1/2 tablet Orally Active 5 MG Orally Once a day [facility] Castillo Souza [place] 3 1 capsule Orally Active 1200 mg Orally Once a d ay Laith Souza Famotidine 1 tablet as needed Orally Active 10 MG Orally Twice a day Laith Souza Amlodipine Besylate 1/2 tablet Orally Active 5 MG Orally Once a day Elena Souza Prolia 60MG SQ Subcutaneous Active 60 MG/ML Subcutaneous Q 6 MONTHS [facility] Castillo Souza Cyanocobalamin 1 ml Injection Active 1000 MCG/ML Injection O nce a month Laith Souza Sodium Bicarbonate 1 tablet Orally Active 650 MG Orally twice a day [place]ole Souza Paroxetine HCl 1 tablet in the morning Orally Active 10 MG Orally Once a day Elnea Souza Levothyroxine Sodium 1 tablet Orally Active 75 MCG Orally Once a day [place] Castillo Souza Ergocalciferol 1 capsule Orally Active 1000 mg Orally Once a d ay Laith Souza Metoprolol Tartrate 1 tablet Orally Active 50 MG Orally Once a day [place] Castillo Souza Aspir-81 1 tablet Orally Active 81 MG Orally Once a day Fakoya Farshad Souza Calcitriol 1 capsule Orally Active 0.25 MCG Orally Once a day [place] Castillo Souza Tizanidine HCl 1 tablet as nee ded Orally Active 4 MG Orally Three times a day Laith Souza Vitamin B-12 15 ml Orally Active 1000 MCG/15ML Orally On ce a day Harley Souza Synthroid 1 tablet every morni ng on an empty stomach Orally Active 75 MCG Orally Once a day [facility] Castillo Souza Omeprazole 2 capsules Orally Active [...] Active 81 MG Orally every nigh t [place] Farshad Souza Famotidine 1 tablet Orally Active 20 MG Orally Once a day [facility] ashia Burrowser Atorvastatin Calcium 1 tablet Orally Active 20 MG Orally Once a day Elena Souza Amlodipine Besylate 1 tablet Orally Active 5 MG Orally Once a day Chase Souza Pantoprazole Sodium 1 tablet Orally Active 40 MG Orally Once a day [place] Castillo Souza Sensipar 1 tablet with food or after a meal Orally Active 30 MG Orally Once a day Chase Souza Nubia 1 tablet as needed Orally Active 160 MG Orally Once a day Souza Castillo Souza Aspirin 2 tablets Orally Active 81 MG Orally every nigh t Elena Souza Terazosin HCl 1 null at bedtime Orally Active 1 MG Orally Once a day Elena Souza Clopidogrel Bisulfate 1 tablet Orally Active 75 MG Orally Once a day Elena Souza Mirtazapine 2 tablets at bedti me Orally Active 7.5 MG Orally Once a day Elena Souza Co Q 10 1 capsule with a meal Orally Active 100 MG Orally Once a day Elena Souza Alprazolam 1 tablet Orally Active 0.25 MG Orally Twice a day Parkeraleena Souza Sensipar 1 tablet with food or after a meal Orally Active 60 MG Orally Once a day Elena Souza Allergies, Adverse Reactions, Alerts Substance Category Reaction Severity Reaction type Status Date Reported Comments Source Plavix Adverse Reaction rash Adverse Reaction Active 02/21/2020 [facility] Fosamax Adverse Reaction severe muscle cramping Adverse Reaction Active 02/21/2020 [facility] No Known Drug Allergies drug a llergy drug aller gy Active [facility] Plavix TABS drug allergy drug allergy Active [facility] Immunizations Immunization Date Given Site Status Last Updated Comments Source Prolia 09/10/2016 completed [facility] Prolia 03/11/2016 completed [facility] Influenza 05/22/2013 completed [facility] Zoster (Zostavax) completed [facility] Influenza completed [facility] Results Order Name Results Value Reference Range Date Interpretation Comments Source ELECTROLYTES Potassium Lvl 4.3 3.5 - 5.1 11/04/2016 [facility] BLOOD BANK RESULTS Antibody Scrn Negative (10/28/16 10:13 AM) 10/28/2016 [facility] BLOOD [facility] RESULTS ABO/Rh A POS 10/28/2016 [facility] ELECTROLYTES AGAP 12.4 10.0 - 20.0 10/28/2016 [facility] ELECTROLYTES eGFR 12 10/28/2016 Result Comment: The [...] should be multiplied by the estimated BMI. [facility] ELECTROLYTES BUN 36 7 - 22 10/28/2016 [facility] ELECTROLYTES Glucose Lvl 95 70 - 99 10/28/2016 [facility] ELECTROLYTES Creatinine Lvl 3.5 0 0.50 - 1.40 10/28/2016 [facility] ELECTROLYTES Calcium Lvl 9.1 8.5 - 10.5 10/28/2016 [facility] ELECTROLYTES CO2 21 24 - 32 10/28/2016 [facility] ELECTROLYTES Potassium Lvl 4.4 3.5 - 5.1 10/28/2016 [facility] ELECTROLYTES Chloride Lvl 112 95 - 109 10/28/2016 [facility] ELECTROLYTES Sodium Lvl 141 135 - 145 10/28/2016 [facility] HEMATOLOGY Lymphocytes 21.2 20.0 - 40.0 10/28/2016 [facility] HEMATOLOGY Basophils 1.5 0.0 - 1.0 10/28/2016 [facility] HEMATOLOGY Segs-Bands # 4.2 1.5 - 8.1 10/28/2016 [facility] HEMATOLOGY Eosinophils 3.9 0.0 - 4.0 10/28/2016 [facility] HEMATOLOGY Monocytes 7.5 2.0 - 12.0 10/28/2016 [facility] HEMATOLOGY Eosinophils # 0.2 0.0 - 0.5 10/28/2016 [facility] HEMATOLOGY Lymphocytes # 1.4 1.0 - 5.5 10/28/2016 [facility] HEMATOLOGY Monocytes # 0.5 0.0 - 0.8 10/28/2016 [facility] [place] Basophils # 0.1 0.0 - 0.2 10/28/2016 [facility] Segs 65.9 45.0 - 75.0 10/28/2016 [facility] HEMATOLOGY INR 1.04 0.85 - 1.17 10/28/2016 [facility] HEMATOLOGY PT 13.8 12.0 - 14.7 10/28/2016 [facility] PTT 30.0 22.9 - 35.8 10/28/2016 [facility] MPV 8.3 7.4 - 10.4 10/28/2016 [facility] MCHC 34.0 32.0 - 36.0 10/28/2016 [facility] HEMATOLOGY RDW 13.5 11.5 - 14.5 10/28/2016 [facility] HEMATOLOGY RBC 3.45 4.20 - 5.40 10/28/2016 [facility] HEMATOLOGY Hct 30.5 36.0 - 48.0 10/28/2016 [facility] HEMATOLOGY Hgb 10.4 12.0 - 16.0 10/28/2016 [facility] HEMATOLOGY MCV 88.5 80.0 - 98.0 10/28/2016 [facility] HEMATOLOGY MCH 30.1 27.0 - 31.0 10/28/2016 [facility] HEMATOLOGY Platelet 135 133 - 450 10/28/2016 [facility] HEMATOLOGY WBC 6.4 3.7 - 10.4 10/28/2016 [facility] ELECTROLYTES Potassium Lvl 5.0 3.5 - 5.1 11/24/2015 [facility] CHEM PANEL eGFR 18 11/17/2015 Result Comment: [...] should be multiplied by the estimated BMI. [facility] CHEM PANEL Calcium Lvl 7.9 8.5 - 10.5 11/17/2015 [facility] CHEM PANEL CO2 20 24 - 32 11/17/2015 [facility] CHEM PANEL Chloride Lvl 113 95 - 109 11/17/2015 [facility] CHEM PANEL Potassium Lvl 4.8 3.5 - 5.1 11/17/2015 [facility] CHEM PANEL Sodium Lvl 140 135 - 145 11/17/2015 [facility] CHEM PANEL Creatinine Lvl 2.45 0.50 - 1.40 11/17/2015 [facility] CHEM PANEL BUN 37 7 - 22 11/17/2015 [facility] CHEM PANEL Glucose Lvl 130 70 - 99 11/17/2015 [facility] CHEM PANEL AGAP 11.8 10.0 - 20.0 11/17/2015 [facility] HEMATOLOGY INR 1.15 0.85 - 1.17 11/17/2015 [facility] HEMATOLOGY PT 15.0 12.0 - 14.7 11/17/2015 [facility] HEMATOLOGY MCV 89.9 80.0 - 98.0 11/17/2015 [facility] HEMATOLOGY MPV 8.5 7.4 - 10.4 11/17/2015 [facility] HEMATOLOGY MCHC 33.1 32.0 - 36.0 11/17/2015 [facility] HEMATOLOGY RDW 14.3 11.5 - 14.5 11/17/2015 [facility] HEMATOLOGY MCH 29.7 27.0 - 31.0 11/17/2015 [facility] HEMATOLOGY Platelet 158 133 - 450 11/17/2015 [facility] HEMATOLOGY Hct 27.1 36.0 - 48.0 11/17/2015 [facility] HEMATOLOGY RBC 3.01 4.20 - 5.40 11/17/2015 [facility] HEMATOLOGY Hgb 9.0 12.0 - 16.0 11/17/2015 [facility] HEMATOLOGY WBC 5.6 3.7 - 10.4 11/17/2015 [facility] HEMATOLOGY PTT 27.1 22.9 - 35.8 11/17/2015 [facility] HEMATOLOGY Basophils # 0.1 0.0 - 0.2 11/17/2015 [facility] HEMATOLOGY Segs-Bands # 3.9 1.5 - 8.1 11/17/2015 [facility] HEMATOLOGY Eosinophils # 0.1 0.0 - 0.5 11/17/2015 [facility] HEMATOLOGY Lymphocytes # 1.1 1.0 - 5.5 11/17/2015 [facility] HEMATOLOGY Monocytes # 0.5 0.0 - 0.8 11/17/2015 [facility] HEMATOLOGY Lymphocytes 18.8 20.0 - 40.0 11/17/2015 [facility] HEMATOLOGY Basophils 1.4 0.0 - 1.0 11/17/2015 [facility] HEMATOLOGY Monocytes 8.0 2.0 - 12.0 11/17/2015 [facility] HEMATOLOGY Eosinophils 2.1 0.0 - 4.0 11/17/2015 [facility] HEMATOLOGY Segs 69.7 45.0 - 75.0 11/17/2015 [facility] CHEM PANEL Glucose Lvl 100 70 - 99 03/24/2015 [facility] ELECTROLYTES Potassium Lvl 5.4 3.5 - 5.1 03/24/2015 [facility] CHEM PANEL BUN 50 7 - 22 03/17/2015 [facility] CHEM PANEL eGFR 13 03/17/2015 Result Comment: [...] should be multiplied by the estimated BMI. [facility] CHEM PANEL Creatinine Lvl 3.3 0.5 - 1.4 03/17/2015 [facility] CHEM PANEL Sodium Lvl 140 135 - 145 03/17/2015 [facility] CHEM PANEL Glucose Lvl 106 70 - 99 03/17/2015 [facility] CHEM PANEL Potassium Lvl 4.7 3.5 - 5.1 03/17/2015 [facility] CHEM PANEL Chloride Lvl 109 95 - 109 03/17/2015 [facility] CHEM PANEL Calcium Lvl 9.2 8.5 - 10.5 03/17/2015 [facility] CHEM PANEL CO2 20 24 - 32 03/17/2015 [facility] CHEM PANEL AGAP 15.7 10.0 - 20.0 03/17/2015 [facility] HEMATOLOGY PTT 34.3 22.9 - 35.8 03/17/2015 [facility] HEMATOLOGY INR 1.16 0.85 - 1.17 03/17/2015 [facility] HEMATOLOGY PT 14.9 12.0 - 14.7 03/17/2015 [facility] HEMATOLOGY MPV 9.0 7.4 - 10.4 03/17/2015 [facility] HEMATOLOGY Platelet 158 133 - 450 03/17/2015 [facility] HEMATOLOGY Hct 27.7 36.0 - 48.0 03/17/2015 [facility] HEMATOLOGY MCV 87.9 80.0 - 98.0 03/17/2015 [facility] RBC 3.15 4.20 - 5.40 03/17/2015 [facility] Hgb 9.3 12.0 - 16.0 03/17/2015 [facility] MCHC 33.7 32.0 - 36.0 03/17/2015 [facility] RDW 14.0 11.5 - 14.5 03/17/2015 [facility] MCH 29.6 27.0 - 31.0 03/17/2015 [facility] WBC 5.4 3.7 - 10.4 03/17/2015 [facility] Lymphocytes # 1.2 1.0 - 5.5 03/17/2015 [facility] Segs-Bands # 3.4 1.5 - 8.1 03/17/2015 [facility] Basophils 1.4 0.0 - 1.0 03/17/2015 [facility] Eosinophils 3.0 0.0 - 4.0 03/17/2015 [facility] Basophils # 0.1 0.0 - 0.2 03/17/2015 [facility] Monocytes # 0.6 0.0 - 0.8 03/17/2015 [facility] Eosinophils # 0.2 0.0 - 0.5 03/17/2015 [facility] Monocytes 10.9 2.0 - 12.0 03/17/2015 [facility] Segs 62.7 45.0 - 75.0 03/17/2015 [facility] Lymphocytes 22.0 20.0 - 40.0 03/17/2015 [facility] Pathology Reports No Data Provided for This Section Diagnostic Reports Report Value Date Source Breast Mammo Scrn MC incl CAD MA BILATERAL DIGITAL SCREENING MAMMOGRAM WITH CAD: 07/19/2019 CLINICAL: Screening/Screening. Current study was evaluated with a Computer Aided Detection (CAD) system. COMPARISON:Comparison is made to exams dated: 07/17/2018 mammogram, 07/16/2017 mammogram, 08/19/2015 mammogram - [facility], 06/26/2014 mammogram, 09/28/2013 mammogram, and 09/26/2012 mammogram - [facility]. TECHNIQUE: Mammographic views were obtained [...] is recommended.(07/19/2020) This exam was interpreted at [id number] for CHELSEA Hung, SL 15. Professional services are provided by the [facility] Division of Diagnostic Imaging. Kelley Del Rio M.D. ms/penrad:07/20/2019 08:33:03 Ug Designer(s): Maddison Alonso RT(R)(M), [facility] letter sent: BI-RADS 1/2 Dense Mammogram BI-RADS: 2 Benign 07/19/2019 [facility] Breast Mammo Scrn MC incl CAD MA BILATERAL DIGITAL SCREENING MAMMOGRAM WITH CAD: 07/17/2018 CLINICAL: Routine/Screening. Current study was evaluated with a Computer Aided Detection (CAD) system. COMPARISON:Comparison is made to exams dated: 07/16/2017 mammogram, 08/19/2015 mammogram - [facility], 06/26/2014 mammogram, 09/28/2013 mammogram, 09/26/2012 mammogram, and 09/17/2011 mammogram - [facility]. TECHNIQUE: Mammographic views were obtained [...] is recommended.(07/18/2019) This exam was interpreted at [id number] for CHELSEA Sun. Professional services are provided by the [facility] Diagnostic Imaging. Deisy Vance M.D. ak/penrad:07/19/2018 10:59:26 Ug Designer(s): Miranda Briggs RT(R)(M), [facility] letter sent: BI-RADS 1/2 Mammogram BI-RADS: 2 Benign 07/17/2018 CHEL[facility] [place] Spine cervical 2 or 3 view DX EXAM: XR CERVICAL SPINE 3 VIEWS DATE: 05/02/2018 2:16 PM CDT INDICATION: M54.2 Cervicalgia COMPARISON: None. TECHNIQUE: 3 views of the cervical spine FINDINGS: Vertebral body heights and intervertebral disc spaces are preserved. Mild C4-C5 listhesis is identified. Mild degenerative changes are seen. No prevertebral swelling is appreciated IMPRESSION: Mild C4-C5 listhesis. 05/02/2018 [facility] Breast Mammo Scrn MC incl CAD MA BILATERAL DIGITAL SCREENING MAMMOGRAM WITH CAD: 07/16/2017 CLINICAL: /Z12.31 Encounter For Screening Mammogram For Malignant Neoplasm Of Breast. Current study was evaluated with a Computer Aided Detection (CAD) system. COMPARISON:Comparison is made to exams dated: 08/19/2015 mammogram - [facility], 06/26/2014 mammogram, 09/28/2013 mammogram, 09/26/2012 mammogram, and 09/17/2011 mammogram - [facility]. TECHNIQUE: Mammographic views were obtained [...] 1 year screening mammogram is recommended.(07/17/2018) Wili bartlett/penivonne:07/19/2017 09:55:37 Ug Designer(s): Tejal Lucio [facility] letter sent: BI-RADS 1/2 Dense Mammogram BI-RADS: 2 Benign 07/16/2017 [facility] Chest 2 views DX EXAM: XR CHES [...] change with compared with 03/17/2015. 03/03/2016 [facility] Digital Mammo Screening Mc MA - DIGITAL MAMMO SCREENING MC MA BILATERAL DIGITAL SCREENING MAMMOGRAM WITH CAD: 08/19/2015 CLINICAL: Routine. Current study was evaluated with a Computer Aided Detection (CAD) system. Comparison is made to exams dated: 06/26/2014 mammogram, 09/28/2013 mammogram, 09/26/2012 mammogram and 09/17/2011 mammogram - [facility]. The tissue of both breasts [...] year screening mammogram is recommended. Paul Vick M.D. cm/penrad:08/27/2015 11:51:17 Ug Designer: Anna AGUILAR(R)(Kyle), [facility] This exam was dictated and interpreted by [id number] for Melody. letter sent: Normal exam Mammogram BI-RADS: 2 Benign 08/19/2015 [facility] Chest 2 views DX PA and LATERA [...] Atherosclerosis. Coding: Chest 2 views CPT Code: 63515 SL: 13 Avni Vazquez M.D. 03/17/2015 [facility] Consultation Notes No Data Provided for This Section Discharge Summaries No Data Provided for This Section History and Physicals No Data Provided for This Section Vital Signs Vital Sign Value Date Comments Source Weight 106.8 02/21/2020 [facility] Height 63 0 02/21/2020 [facility] Temperature Oral (F) 97.2 F 02/21/2020 [facility] Heart Rate 68 02/21/2020 [facility] Diastolic (mm Hg) 48 02/21/2020 [facility] Systolic (mm Hg) 118 02/21/2020 [facility] Weight 117.4 07/24/2019 [facility] Height 63.75 07/24/2019 [facility] Temperature Oral [...] 07/07/2017 [facility] Weight 128 04/05/2017 [facility] Height 64 0 04/05/2017 [facility] Temperature Oral (F) 98.1 F 04/05/2017 [facility] Heart Rate 80 04/05/2017 [facility] Diastolic (mm Hg) 68 04/05/2017 [facility] Systolic (mm Hg) 160 04/05/2017 [facility] Systolic (mm Hg) 136 11/04/2016 [facility] Diastolic (mm Hg) 40 11/04/2016 [facility] Systolic (mm Hg) 145 11/04/2016 [facility] Diastolic (mm Hg) 37 11/04/2016 [facility] Systolic (mm Hg) 159 11/04/2016 [facility] Diastolic (mm Hg) 46 11/04/2016 [facility] Respitory Rate 14 11/04/2016 [facility] Respitory Rate 17 11/04/2016 [facility] Respitory Rate 17 11/04/2016 [facility] Heart Rate 72 11/04/2016 [facility] Temperature Oral (F) 97.5 F 10/28/2016 [facility] Heart Rate 54 10/28/2016 [facility] Height 162.56 cm 10/28/2016 [facility] Weight 59.545 10/28/2016 [facility] BMI Calculated 22.53 10/28/2016 [facility] Weight 129 09/10/2016 [facility] Height 64 [...] [facility] Systolic (mm Hg) 124 11/24/2015 [facility] Diastolic (mm Hg) 54 11/24/2015 [facility] Systolic (mm Hg) 121 11/24/2015 [facility] Diastolic (mm Hg) 39 11/24/2015 [facility] Systolic (mm Hg) 114 11/24/2015 [facility] Diastolic (mm Hg) 31 11/24/2015 [facility] Respitory Rate 15 11/24/2015 [facility] Respitory Rate 16 11/24/2015 [facility] Respitory Rate 14 11/24/2015 [facility] Temperature Oral (F) 97.9 F 11/17/2015 [facility] Heart Rate 61 11/17/2015 [facility] BMI Calculated 21.87 11/17/2015 [facility] Weight 57.784 11/17/2015 [facility] Height 162.56 cm 11/17/2015 [facility] Systolic (mm Hg) 142 03/24/2015 [facility] Diastolic (mm Hg) 49 03/24/2015 [facility] Systolic (mm Hg) 133 03/24/2015 [facility] Diastolic (mm Hg) 46 03/24/2015 [facility] Systolic (mm Hg) 142 03/24/2015 [facility] Diastolic (mm Hg) 45 03/24/2015 [facility] Respitory Rate 15 03/24/2015 [facility] Respitory Rate 19 03/24/2015 [facility] Respitory Rate 15 03/24/2015 [facility] Heart Rate 65 03/17/2015 [facility] Temperature Oral (F) 98.4 F 03/17/2015 [facility] Height 162.56 cm 03/17/2015 [facility] BMI Calculated 22.71 03/17/2015 [facility] Weight 60 0 03/17/2015 [facility] Weight 140 12/12/2014 [facility] Height 64 0 12/12/2014 [facility] Temperature Oral (F) 98.0 F 12/12/2014 [facility] Heart Rate 70 12/12/2014 [facility] Diastolic (mm Hg) 60 12/12/2014 [facility] Systolic (mm Hg) 140 12/12/2014 [facility] Weight 135 06/13/2014 [facility] Height 64 1 [facility] Temperature Oral (F) 98.2 F 06/13/2014 [facility] Heart Rate 72 06/13/2014 [facility] [...] ADM Date DC Date Status Source AUDIT [id number] 05/29/2013 05/29/2013 [facility] AUDIT [id number] 06/04/2013 06/04/2013 [facility] HE Provi d[place]ota: VANI SHIPMAN, Status: Pen, Time: 11:45 AM [id number] 06/07/20 13 06/04/2013 [facility] AUDIT [id number] 06/18/2013 06/18/2013 [facility] AUDIT [id number] 07/12/2013 07/12/2013 [facility] Sebastian CUTLER dakota: VANI SHIPMAN, Status: Pen, Time: 12:15 PM [id number] 08/09/20 13 07/12/2013 [facility] AUDIT [id number] 08/09/2013 08/09/2013 [facility] AUDIT [id number] 08/16/2013 08/16/2013 [facility] Provi [place]: VANI SHIPMAN, Status: Pen, Time: 2:15 PM [id number] 09/05/19 14 08/16/2013 [facility] Provi [place]: VANI SHIPMAN, Status: Pen, Time: 2:15 PM [id number] 10/09/19 14 08/16/2013 [facility] AUDIT [id number] 10/09/2013 10/09/2013 [facility] AUDIT [id number] 10/25/2013 10/25/2013 [facility] HE Provi [place]: VANI SHIPMAN, Status: Pen, Time: 2:15 PM [id number] 11/07/19 14 10/25/2013 [facility] AUDIT [id number] 11/06/2013 11/06/2013 [facility] AUDIT [id number] 11/08/2013 11/08/2013 [facility] Martin Souza MD 6m fu [id number] 12/12/2013 12/12/2013 [facility] MD 6m fu [id number] 12/12/2013 12/12/2013 [facility] MD 6m fu [id number] 12/12/2013 12/12/2013 Cast[facility] Sou[facility] MD 6m fu [id number] 12/12/2013 12/12/2013 Castillo Sou[facility] MD 6m fu [id number] 12/12/2013 12/12/2013 [facility] MD 6m fu [id number] 12/12/2013 12/12/2013 Castillo Souza MD 6m fu [id number] 12/12/2013 12/12/2013 Castillo Souza MD 6m fu [id number] 12/12/2013 12/12/2013 Castillo Souza MD 6m fu [id number] 12/12/2013 12/12/2013 [facility] MD 6m fu [id number] 12/12/2013 12/12/2013 Cast[facility] MD 6m fu [id number] 12/12/2013 12/12/2013 [facility] MD 6m fu [id number] 12/12/2013 12/12/2013 Castillo Souza MD 6m fu [id number] 12/12/2013 12/12/2013 [facility] FUP, Provi d[place]: VANI SHIPMAN, Status: Pen, Time: 12:45 PM [id number] 01/04/20 14 11/08/2013 [facility] AUDIT [id number] 01/03/2014 01/03/2014 [facility] FU, Provi d[place]: VANI SHIPMAN, Status: Pen, Time: 2:00 PM [id number] 05/01/20 14 01/03/2014 [facility] Martin Souza MD 6m fu [id number] 06/13/2014 06/13/2014 [facility] MD 6m fu [id number] 06/13/2014 06/13/2014 Cast[facility] Sou[facility] MD 6m fu [id number] 06/13/2014 06/13/2014 Castillo Souza MD 6m fu [id number] 06/13/2014 06/13/2014 Castillo Souza MD 6m fu [id number] 06/13/2014 06/13/2014 Castillo Souza MD 6m fu [id number] 06/13/2014 06/13/2014 Castillo Souza MD [facility] [id number] 06/13/2014 06/13/2014 Castillo Souza MD 6m [id number] 06/13/2014 06/13/2014 Castillo Souza MD 6m [id number] 06/13/2014 06/13/2014 Castillo Souza MD [facility] [id number] 06/13/2014 06/13/2014 Castillo Souza MD [facility] [id number] 06/13/2014 06/13/2014 Castillo Souza MD [facility] [id number] 06/13/2014 06/13/2014 Castillo Souza MD [facility] [id number] 12/07/19 15 12/06/2014 Castillo Souza MD [facility] [id number] 12/07/19 15 12/06/2014 [facility] MD [facility] [id number] 12/07/19 15 12/06/2014 Castillo Souza MD [facility] [id number] 12/07/19 15 12/06/2014 Cast[facility] Sou[facility] MD [facility] [id number] 12/07/19 15 12/06/2014 Cast[facility] MD [facility] [id number] 12/07/19 15 12/06/2014 Cast[facility] Sou[facility] MD [facility] [id number] 12/07/19 15 12/06/2014 Castillo Souza MD [facility] [id number] 12/07/19 15 12/06/2014 Castillo Souza MD [facility] [id number] 12/07/19 15 12/06/2014 Castillo Souza MD [facility] [id number] 12/07/19 15 12/06/2014 Castillo Souza MD [facility] [id number] 12/07/19 15 12/06/2014 Castillo Souza MD 6m fu [id number] 12/12/2014 12/12/2014 Castillo Souza MD 6m fu [id number] 12/12/2014 12/12/2014 Castillo Souza MD 6m fu [id number] 12/12/2014 12/12/2014 Castillo Souza MD 6m fu [id number] 12/12/2014 12/12/2014 Castillo Souza MD [facility] [id number] 12/12/2014 12/12/2014 Castillo Souza MD [facility] [id number] 12/12/2014 12/12/2014 Castillo Souza MD [facility] [id number] 12/12/2014 12/12/2014 Castillo Souza MD [facility] [id number] 12/12/2014 12/12/2014 Castillo Souza MD [facility] [id number] 12/12/2014 12/12/2014 Castillo Souza MD [facility] [id number] 12/12/2014 12/12/2014 Castillo Souza MD [facility] [id number] 12/12/2014 12/12/2014 Castillo Souza MD MRI [id number] 12/18/2014 12/18/2014 Castillo Souza MD MRI [id number] 12/18/2014 12/18/2014 Castillo Souza MD MRI [id number] 12/18/2014 12/18/2014 Castillo Souza MD MRI [id number] 12/18/2014 12/18/2014 Castillo Souza MD MRI [id number] 12/18/2014 12/18/2014 Castillo Souza MD MRI [id number] 12/18/2014 12/18/2014 Castillo Souza MD MRI [id number] 12/18/2014 12/18/2014 Castillo Souza MD MRI [id number] 12/18/2014 12/18/2014 Castillo Suoza MD MRI [id number] 12/18/2014 12/18/2014 Castillo Souza MD MRI [id number] 12/18/2014 12/18/2014 Castillo Souza MD MRI [id number] 12/18/2014 12/18/2014 Castillo Souza MD [facility] [id number] 12/21/19 15 12/20/2014 Castillo Souza MD [facility] [id number] 12/21/19 15 12/20/2014 Castillo Souza MD [facility] [id number] 12/21/19 15 12/20/2014 Castillo Souza MD [facility] [id number] 12/21/19 15 12/20/2014 MD Catalino Pitts [id number] 12/21/19 15 12/20/2014 MD Catalino Pitts [id number] 12/21/19 15 12/20/2014 MD Catalino Pitts [id number] 12/21/19 15 12/20/2014 MD Catalino Pitts [id number] 12/21/19 15 12/20/2014 MD Catalino Pitts [id number] 12/21/19 15 12/20/2014 MD Catalino Pitts [id number] 12/21/19 15 12/20/2014 MD Catalino Pitts [id number] 12/21/19 15 12/20/2014 MD Catalino Pitts [id number] 01/01/20 15 12/31/2014 MD Catalino Pitts [id number] 01/01/20 15 12/31/2014 MD Catalino Pitts [id number] 01/01/20 15 12/31/2014 MD Catalino Pitts [id number] 01/01/20 15 12/31/2014 MD Tao Pittsia [id number] 01/01/20 15 12/31/2014 Castillo Souza MD [facility] [id number] 01/01/20 15 12/31/2014 MD Tao Pittsia [id number] 01/01/20 15 12/31/2014 Castillo Souza MD [facility] [id number] 01/01/20 15 12/31/2014 Castillo Souza MD [facility] [id number] 01/01/20 15 12/31/2014 Castillo Souza MD [facility] [id number] 01/01/20 15 12/31/2014 Castillo Souza MD [facility] [id number] 01/01/20 15 12/31/2014 Castillo Souza MD Appointment [id number] 01/24/20 15 01/23/2015 Castillo Souza MD Appointment [id number] 01/24/20 15 01/23/2015 Castillo Souza MD Appointment [id number] 01/24/20 15 01/23/2015 Castillo Souza MD Appointment [id number] 01/24/20 15 01/23/2015 Castillo Suoza MD Appointment [id number] 01/24/20 15 01/23/2015 Castillo Souza MD Appointment [id number] 01/24/20 15 01/23/2015 Castillo Souza MD Appointment [id number] 01/24/20 15 01/23/2015 Castillo Souza MD Appointment [id number] 01/24/20 15 01/23/2015 Castillo Souza MD Appointment [id number] 01/24/20 15 01/23/2015 Castillo Souza [facility] Day Surgery [id number] Dangel[facility] Hand 03/24/2015 03/24/2015 [facility] Martin Souza MD 6m fu [id number] 06/13/2015 06/13/2015 Castillo Souza MD 6m fu [id number] 06/13/2015 06/13/2015 Castillo Souza MD 6m fu [id number] 06/13/2015 06/13/2015 Castillo Souza MD 6m fu [id number] 06/13/2015 06/13/2015 Castillo Souza MD 6m [id number] 06/13/2015 06/13/2015 Castillo Souza MD 6m [id number] 06/13/2015 06/13/2015 Castillo Souza MD 6m [id number] 06/13/2015 06/13/2015 Castillo Souza MD 6m [id number] 06/13/2015 06/13/2015 Castillo Souza MD [facility] [id number] 06/13/2015 06/13/2015 Castillo Souza MD [facility] [id number] 06/17/20 15 06/17/2015 Castillo Souza MD [facility] [id number] 06/17/20 15 06/17/2015 Castillo Souza MD [facility] [id number] 06/17/20 15 06/17/2015 Castillo Souza MD [facility] [id number] 06/17/20 15 06/17/2015 Castillo Souza MD [facility] [id number] 06/17/20 15 06/17/2015 Castillo Souza MD [facility] [id number] 06/17/20 15 06/17/2015 Castillo Souza MD [facility] [id number] 06/17/20 15 06/17/2015 Castillo Souza MD [facility] [id number] 06/17/20 15 06/17/2015 Castillo Souza MD [facility] [id number] 06/17/20 15 06/17/2015 Castillo Souza MD DEXA [id number] 07/11/2015 07/11/2015 Castillo Souza MD DEXA [id number] 07/11/2015 07/11/2015 Castillo Souza MD DEXA [id number] 07/11/2015 07/11/2015 Castillo Souza MD DEXA [id number] 07/11/2015 07/11/2015 Castillo Souza MD DEXA [id number] 07/11/2015 07/11/2015 Castillo Souza MD DEXA [id number] 07/11/2015 07/11/2015 Castillo Souza MD DEXA [id number] 07/11/2015 07/11/2015 Castillo Souza MD DEXA [id number] 07/11/2015 07/11/2015 Castillo Souza MD DEXA [id number] 07/11/2015 07/11/2015 Castillo Souza [facility] Outpatient Imaging - [place] Out[facility] Diag Services [id number] Vani Shimpan 08/19/2015 08/20/2015 [facility] OBS Day Surgery [id number] Dangelo Hand 11/24/2015 11/24/2015 [facility] Martin Souza MD Lab results [id number] 02/04/20 16 02/04/2016 Castillo Souza MD Lab results [id number] 02/04/20 16 02/04/2016 Castillo Souza MD Lab results [id number] 02/04/20 16 02/04/2016 Castillo Souza MD Lab results [id number] 02/04/20 16 02/04/2016 Castillo Souza MD Lab results [id number] 02/04/20 16 02/04/2016 Castillo Souza MD Lab results [id number] 02/04/20 16 02/04/2016 Castillo Souza MD Lab results [id number] 02/04/20 16 02/04/2016 Castillo Souza MD Lab results [id number] 02/04/20 16 02/04/2016 Castillo Souza MD Update [id number] 02/09/20 16 02/09/2016 Castillo Souza MD Update [id number] 02/09/20 16 02/09/2016 Castillo Souza MD Update [id number] 02/09/20 16 02/09/2016 Castillo Souza MD Update [id number] 02/09/20 16 02/09/2016 Castillo Souza MD Update [id number] 02/09/20 16 02/09/2016 Castillo Souza MD Update [id number] 02/09/20 16 02/09/2016 Castillo Souza MD Update [id number] 02/09/20 16 02/09/2016 Castillo Souza MD Update [id number] 02/25/20 16 02/25/2016 Castillo Souza MD Update [id number] 02/25/20 16 02/25/2016 Castillo Souza MD Update [id number] 02/25/20 16 02/25/2016 Castillo Souza MD Update [id number] 02/25/20 16 02/25/2016 Castillo Souza MD Update [id number] 02/25/20 16 02/25/2016 Castillo Souza MD Update [id number] 02/25/20 16 02/25/2016 Castillo Souza [facility] Outpatient Imaging - [place] Outpt Diag Services [id number] Vani Shipman 03/03/2016 03/04/2016 [facility] [place] Martin Souza MD Unknown [id number] 03/11/20 16 03/11/2016 Castillo Souza MD Unknown [id number] 03/11/20 16 03/11/2016 Castillo Souza MD Unknown [id number] 03/11/20 16 03/11/2016 Castillo Souza MD Unknown [id number] 03/11/20 16 03/11/2016 Castillo Souza MD Unknown [id number] 03/11/20 16 03/11/2016 Castillo Souza MD Prolia [id number] 05/06/20 16 05/06/2016 Castillo Souza MD Prolia [id number] 05/06/20 16 05/06/2016 Castillo Souza MD Prolia [id number] 05/06/20 16 05/06/2016 Castillo Souza MD Prolia [id number] 05/06/20 16 05/06/2016 Castillo Souza MD 6 MTH PROLIA [id number] 09/10/19 17 09/10/2016 Castillo Souza MD Labs [id number] 09/10/2016 09/10/2016 Castillo Souza MD Labs [id number] 09/10/2016 09/10/2016 Castillo Souza MD Labs [id number] 09/10/2016 09/10/2016 Castillo Souza MD Vitamin D [id number] 09/10/19 17 09/10/2016 Castillo Souza MD Vitamin D [id number] 09/10/19 17 09/10/2016 Castlilo Souza MD Vitamin D [id number] 09/10/19 17 09/10/2016 Castillo Souza [facility] Day Surgery [id number] Dangelo Hand 11/04/2016 11/04/2016 [facility] Outpatient Imaging - [place] Outpt Diag Services [id number] Vani Shipman 07/16/2017 07/17/2017 [facility] [place] [facility] Outpatient Imaging - [place] Outpt Diag Services [id number] Vani Shipman 05/02/2018 05/03/2018 [facility] [place] [facility] [place] [facility] [id number] Vani Shipman 05/11/2018 06/10/2018 [facility] [place] [facility] [place] [facility] [id number] Vani Shipman 06/12/2018 07/12/2018 [facility] [place] [facility] [place] [facility] [id number] Vani Shipman 07/13/2018 08/12/2018 [facility] [place] [facility] Outpatient Imaging - [place] Outpt Diag Services [id number] Vani Shipman 07/17/2018 07/18/2018 [facility] [place] [facility] Outpatient Imaging - [place] Out[facility] Diag Services [id number] Vani Shipman 07/19/2019 07/20/2019 [facility] [place] Procedures Procedure Code Date Perfomer Comments Source Abdominal hysterectomy [id number] [facility] [place] [place], [facility] [place], [facility] [place] Appendectomy [id number] [facility] [place] [place] [place], [facility] [place] Cholecystectomy [id number] [facility] [place] [place], [facility] [place], [facility] [place] Colonoscopy [id number] [facility] [place] [place] [place], [facility] [place] Excision of ganglion cyst [id number] [facility] [place] [place] [place], [facility] [place] Assessment and Plan No Data Provided for This Section Plan of Care Plan of Care Date Source Medication Use 06/14/2013 Routine 01/03/2014 [facility] Medication Use 06/14/2013 Routine 11/08/2013 [facility] Medication Use 06/14/2013 Routine 11/06/2013 [facility] Medication Use 06/14/2013 Routine 10/25/2013 [facility] Medication Use 06/14/2013 Routine[QLH] T SH, 3RD GENERATION W/REFLEX TO FT4 10/09/2013 Routine[QL] LIPID PANEL 10/09/2013 Routine[QLH] HEMOGLOBIN A1c 10/09/2013 Routine[QL] CMP W/EGFR 10/09/2013 Routine[QL] CBC (INCLUDES DIFF/PLT) 10/09/2013 Routine 10/09/2013 [facility] Medication Use 06/14/2013 Routine 08/16/2013 [facility] Medication Use 06/14/2013 Routine 08/09/2013 [facility] Medication Use 06/14/2013 Routine 07/12/2013 [facility] Medication Use 06/14/2013 RoutineENT Ref erral 06/18/2013 Routine 06/18/2013 [facility] Social History Social History Date Source Social History TypeResponse Alcohol Never Smoking Status Never smoker; Exposure to Tobacco Smoke None; Cigarette Smoking Last 365 Days No; Reg Smoking Cessation Counseling No entered on: 11/04/16 10/28[place] TypeResponse Alcohol Never Smoking Status Never smoker; Exposure to Tobacco Smoke None; Cigarette Smoking Last 365 Days No; Reg Smoking Cessation Counseling No entered on: 11/04/16 10/28/2016 BOB [place] Social History TypeResponse Alcohol Never Smoking Status Never smoker; Exposure to Tobacco Smoke None; Cigarette Smoking Last 365 Days No; Reg Smoking Cessation Counseling No 10/28/2016 [place] Social History TypeResponse Alcohol Never Smoking Status Never smoker; Exposure to Tobacco Smoke None; Cigarette Smoking Last 365 Days No; Reg Smoking Cessation Counseling No entered on: 11/04/16 10/28/2016 [place] Social History ElementQualifiersDate Rep orted Caffeine: yes. frequency:, 1-5 Sep 10, 2016 Exercise: yes. walking Sep 10, 2016 Alcohol: no. Sep 10, 2016 09/10/2016 Castillo Souza Marital History - Currently (Active) Never A Smoker (Active) Never Drank Alcohol (Active) 01/03/2014 [facility] Family History Value Date S ource Maternal history of Ovarian Cancer (V16. 41); (Active) Maternal history of Hypertension (V17.49); (Active) Paternal history of Lung Cancer (V16.1); (Active) 01/03/2014 [facility] Maternal history of Ovarian Cancer (V16. 41); (Active) Maternal history of Hypertension (V17.49); (Active) Paternal history of Lung Cancer (V16.1); (Active) 11/08/2013 [facility] Maternal history of Ovarian Cancer (V16. 41); (Active) Maternal history of Hypertension (V17.49); (Active) Paternal history of Lung Cancer (V16.1); (Active) 11/06/2013 [facility] Maternal history of Ovarian Cancer (V16. 41); (Active) Maternal history of Hypertension (V17.49); (Active) Paternal history of Lung Cancer (V16.1); (Active) 10/25/2013 [facility] Maternal history of Ovarian Cancer (V16. 41); (Active) Maternal history of Hypertension (V17.49); (Active) Paternal history of Lung Cancer (V16.1); (Active) 10/09/2013 [facility] Maternal history of Ovarian Cancer (V16. 41); (Active) Maternal history of Hypertension (V17.49); (Active) Paternal history of Lung Cancer (V16.1); (Active) 08/16/2013 [facility] Maternal history of Ovarian Cancer (V16. 41); (Active) Maternal history of Hypertension (V17.49); (Active) Paternal history of Lung Cancer (V16.1); (Active) 08/09/2013 [facility] Maternal history of Ovarian Cancer (V16. 41); (Active) Maternal history of Hypertension (V17.49); (Active) Paternal history of Lung Cancer (V16.1); (Active) 07/12/2013 [facility] Maternal history of Ovarian Cancer (V16. 41); (Active) Maternal history of Hypertension (V17.49); (Active) Paternal history of Lung Cancer (V16.1); (Active) 06/18/2013 [facility] Maternal history of Ovarian Cancer (V16. 41); (Active) Maternal history of Hypertension (V17.49); (Active) Paternal history of Lung Cancer (V16.1); (Active) 06/04/2013 [facility] Maternal history of Ovarian Cancer (V16. 41); (Active) Maternal history of Hypertension (V17.49); (Active) Paternal history of Lung Cancer (V16.1); (Active) 05/29/2013 [facility] Advance Directives Order Name Results Value Date Source Advance Directives Advance Dir ectives No Advance Directives available. 01/03/2014 [facility] Advance Directives Advance Dir ectives No Advance Directives available. 11/08/2013 [facility] Advance Directives Advance Dir ectives No Advance Directives available. 11/06/2013 [facility] Advance Directives Advance Dir ectives No Advance Directives available. 10/25/2013 [facility] Advance Directives Advance Dir ectives No Advance Directives available. 10/09/2013 [facility] Advance Directives Advance Dir ectives No Advance Directives available. 08/16/2013 [facility] Advance Directives Advance Dir ectives No Advance Directives available. 08/09/2013 [facility] Advance Directives Advance Dir ectives No Advance Directives available. 07/12/2013 [facility] Advance Directives Advance Dir ectives No Advance Directives available. 06/18/2013 [facility] Advance Directives Advance Dir ectives No Advance Directives available. 06/04/2013 [facility] Advance Directives Advance Dir ectives No Advance Directives available. 05/29/2013 [facility] Functional Status No Data Provided for This Section
--- OUTSIDE RECORDS SUMMARY | 2020-04-22 12:34 | XMS REPORT ---
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
--- OUTSIDE RECORDS SUMMARY | 2020-04-22 12:36 | XMS REPORT | Continuity of Care Document ---
Author Author [facility] t Organization [facility] Address [address] [place] [address] Phone Unavailable Care Team Providers Care President And Chief Executive Officer Name Role Phone MD RODNEY ROSADO MD PCP Khadar HATHAWAY Attphys Unavailable Mine MUNOZ Attphys Unavailable Khadar GREENE Attphys Unavailable RODNEY ROSADO Attphys Unavailable Tracey Rosado Attphys Jamila DAMON Attphys Unavailable Adan Hand Attphys Khadar HATHAWAY Admphys Unavailable RODNEY ROSADO Admphyadrianne Unavailable Payers Payer Name Policy Type Policy Number Effective Date Expiration Date S [facility] Medicare [id number] 2013 00:00:00 [facility] Problems Condition Name Condition Details Condition Category Status Onset Date Resolution Date Last Treatment Date Treating Clinician Comments Source CERVICAL CERV ICAL Active 05/11/2018 [facility] [place] Diagnosis Active 2018-05-11 08:00:00 2018-07-13 21:49:00 Joshua ALVAREZK UNK Active 10/18/2016 [facility] Diagnosis Active 2016-10-18 00:00:00 2016-11-04 05:56:00 Kyle Vuong12.31 - ENCNTR SCREEN MAMMOGRAM FOR MA Z12.31 - ENCNTR SCREEN MAMMOGRAM FOR MA Active 07/30/2015 [facility] [place] Diagnosis Active 2015-07-30 00:01:00 2015-08-19 14:20:00 mayte Regulo 585.4 585. 4 Active 03/04/2015 [facility] Active 2015-03-04 00:00:00 2015-03-24 09:19:00 [facility] Regulo 585.2 585. 2 Active 07/30/2014 [facility] Active 2014-07-30 00:00:00 2014-10-18 13:32:00 [facility] Mechanical complication due to peritoneal dialysis cat heter Peritoneal dialysis catheter mechanical complication Problem Active [facility] Ataxia Ataxia Problem Active [facility] Transient cerebral ischemia Problem Active [facility] Peritoneal dialysis catheter dysfunction Problem Active [facility] End-stage renal disease on peritoneal dialysis Problem Active [facility] Weakness Weak ness 01/29/2019 RAMESH [place] Problem 2019-01-29 11:39:50 [facility] Abnormal posture Abno rmal posture 03/01/2019 [facility] [place] Problem 2019-03-01 11:34:53 [facility] Encounter for screening mammogram for malignant neopla sm of breast Encounter for screening mammogram for malignant neoplasm of breast 07/22/2019 [facility] [place] Problem 2019-07-22 00:09:36 [facility] Spondylolisthesis, cervical region Spondylolisthesis, cervical region 11/19/2018 [facility] [place] Problem 2018-11-19 14:24:21 [facility] Muscle weakness (generalized) Muscle weakness (generalized) 03/01/2019 RAMESH [place] Problem 2019-02 11:34:53 [facility] Gastroesophageal reflux disease (disorder) Gastroesophageal reflux disease (disorder) Active Problem 07/22/2019 [facility], [facility] [place] Problem Active 2019-07-22 00:09:36 [facility] Anemia of chronic renal failure (disorder) Anemia of chronic renal failure (disorder) Active Problem 07/22/2019 [facility] [place], [facility] Problem Active 2019-07-22 00:09:36 [facility] Diabetes mellitus (disorder) D iabetes mellitus (disorder) Active Problem 07/22/2019 [facility] [place], [facility] [place], [facility] Problem Active 2019-07-22 00:09:36 [facility] Hearing loss (finding) Hear ing loss (finding) Active Problem 07/22/2019 [facility] [place], [facility] [place], [facility] Problem Active 2019-07-22 00:09:36 [facility] Hypertensive disorder, systemic arterial (disorder) Hypertensive disorder, systemic arterial (disorder) Active Problem 07/22/2019 [facility] [place], [facility] [place], [facility] Problem Active 2019-07-22 00:09:36 [facility] Hypercholesterolemia (disorder) Hypercholesterolemia (disorder) Active Problem 07/22/2019 [facility] [place], [facility] [place], [facility] Problem Active 2019-07-22 00:09:36 [facility] Hypertriglyceridemia (disorder) Hypertriglyceridemia (disorder) Active Problem 07/22/2019 [facility] [place], [facility] [place], [facility] Problem Active 2019-07-22 00:09:36 [facility] Hypothyroidism (disorder) Hypo thyroidism (disorder) Active Problem 07/22/2019 [facility] [place], [facility] [place], [facility] Problem Active 2019-07-22 00:09:36 [facility]igreyson jackson [place] Renal failure syndrome (disorder) Renal failure syndrome (disorder) Active Problem 07/22/2019 [facility] [place], [facility] [place], [facility] Problem Active 2019-07-22 00:09:36 [facility] Incisional hernia of anterior abdominal wall (disorder ) Incisional hernia of anterior abdominal wall (disorder) Active Problem 07/22/2019 [facility] [place], [facility] [place], [facility] Problem Active 2019-07-22 00:09:36 [facility] Anxiety (finding) Anxi ety (finding) Active Problem 07/22/2019 [facility] [place] [place], [facility] Problem Active 2019-07-22 00:09:36 [facility] Hypothyroidism Hypo thyroidism Active 01/03/2014 [facility] Problem Active 2014-01-03 19:04:04 [facility] Essential Hypertension Esse ntial Hypertension Active 01/03/2014 [facility] Problem Active 2014-01-03 19:04:04 [facility] Chronic Kidney Disease, Stage 2 Chronic Kidney Disease, Stage 2 Active 01/03/2014 [facility] Problem Active 19:04:04 [facility] Vaccines Prophylactic Need Against Influenza Vaccines Prophylactic Need Against Influenza Active 11/08/2013 [facility] Problem Active 2013-11-08 13:32:05 Fer Rajput Fainting - Unconscious About 1-5 Minutes Fainting - Unconscious About 1-5 Minutes Active 06/18/2013 [facility] Problem Active 2013-06-18 16:04:19 Joshua Rajptu Diabetes Mellitus Under Control Diabetes Mellitus Under Control Active 01/03/2014 [facility] Problem Active 19:04:04 Joshua Rajput Nonspecific Abnormal Results Of Function Studies Nonspecific Abnormal Results Of Function Studies Active 11/08/2013 [facility] Problem Active 2013-11-08 13:32:05 [facility] Automatism Auto matism Active 11/08/2013 [facility] Problem Active 2013-11-08 13:32:05 [facility] Transient Global Amnesia Mejia sient Global Amnesia Active 11/08/2013 [facility] Problem Active 2013-11-08 13:32: 05 [facility] Anxiety Disorder NOS Anxi ety Disorder NOS Active 01/03/2014 [facility] Problem Active 2014-01-03 19:04:04 [facility] [place] Vitamin B12 Deficiency Corinna min B12 Deficiency Active 01/03/2014 [facility] Problem Active 2014-01-03 19:04:04 [facility] [place] Hyperlipidemia Hype rlipidemia Active 01/03/2014 [facility] Problem Active 2014-01-03 19:04:04 [facility] Esophageal Reflux Esop hageal Reflux Active 01/03/2014 [facility] Problem Active 2014-01-03 19:04:04 [facility] Urinary Incontinence Urin kenn Incontinence Active 01/03/2014 [facility] Problem Active 2014-01-03 19:04:04 [facility] [place] Vitamin D deficiency Corinna min D deficiency Active Problem 03/19/2020 Cast[facility] Problem Active 2020-03-19 02:46:20 Joshua Rajput Osteoporosis Oste oporosis Active Problem 03/19/2020 [facility] Problem Active 2020-03-19 02:46:20 Joshua Rajput ESRD (end stage renal disease) ESRD (end stage renal disease) Active Problem 03/19/2020 [facility] Problem Active 2020-03-19 02:46:20 Joshua Rajput Other fpc (current) drug therapy Other fpc (current) drug therapy Active Problem 03/19/2020 Cast[facility] Problem Ac tive 2020-03-19 02:46:20 Joshua vital Rheumatoid arthritis of multiple sites without rheumat oid factor Rheumatoid arthritis of multiple sites without rheumatoid factor Active Problem 03/19/2020 [facility] Problem Active 2020-03-19 02 :46:20 Joshua Rajput Muscle spasm Musc le spasm Active Problem 03/19/2020 [facility] Problem Active 2020-03-19 02:46:20 Joshua Rajput Osteopenia of multiple sites O steopenia of multiple sites Active Problem 03/19/2020 [facility] Problem Active 2020-03-19 02:46:20 Joshua Rajput Long-term (current) use of other medications - High Ri sk Long-term (current) use of other medications - High Risk Active Problem 07/23/2015 [facility] Problem Active 2015-07-23 03:59:37 Joshua Rajput Unspecified vitamin D deficiency Unspecified vitamin D deficiency Active Problem 07/23/2015 [facility] Problem Active 2015-07-23 03:59:37 Joshua Rajput RENAL INSUFFICIENCY SP L INSUFFICIENCY Active Problem 07/23/2015 [facility] Problem Active 2015-07-23 03:59:37 Joshua Rajput Osteoporosis, postmenopausal O steoporosis, postmenopausal Active Problem 07/23/2015 Cast[facility] Problem Active 2015-07-23 03:59:37 Joshua Rajput Cramp of limb Cram p of limb Active Problem 07/23/2015 Cast[facility] Problem Active 2015-07-23 03:59:37 Joshua Rajput Osteoarthrosis, multiple sites Osteoarthrosis, multiple sites Active Problem 07/23/2015 Cast[facility] Problem Active 2015-07-23 03:59:37 Joshua Rajput Rheumatoid arthritis Rheu matoid arthritis Active Problem 07/23/2015 Cast[facility] Problem Active 2015-07-23 03:59:37 Joshua Rajput Osteopenia Oste openia Active Problem 09/05/2014 Cast[facility] Souza Problem Active 2014-09-05 06:02:46 Joshua Rajput Age related osteoporosis Age related osteoporosis Active Diagnosis 03/16/2016 Castillonu[facility] Diagnosis Active 2016-03-16 02:55:00 Joshua Rajput Trigger finger of left hand, unspecified finger Trigger finger of left hand, unspecified finger Active Diagnosis 09/15/2019 [facility] Diagnosis Active 2019-09-15 03:47:23 Ga nitza Rajput CHRONIC KIDNEY DISEASE, STAGE 4 (SEVERE) CHRONIC KIDNEY DISEASE, STAGE 4 (SEVERE) Active [facility] Diagnosis Active 2015-12-16 15:02:00 Joshua Rajput END STAGE RENAL DISEASE END STAGE RENAL DISEASE Active [facility] Diagnosis Active 2016-11-04 05:56:00 Joshua Rajput Cervicalgia Cerv icalgia 08/18/2018 03/01/2019 RAMESH [place], [facility] Problem 2018-08-18 05: 46:36 2019-03-01 11:34:53 2019-03-01 11:34:53 Joshua vital Allergies, Adverse Reactions, Alerts Allergy Name Allergy Type Status Severity Reaction(s) Onset Date Inacti ve Date Treating Clinician Comments Source No Known Allergies DA Active U 2020-04-15 00:00:00 [facility] No Known Allergies DA Active U 2020-04-08 00:00:00 [facility] Plavix Plavix Active rash 2020-02-21 00:00:00 Joshua Rajput Fosamax Fosamax Active severe muscle cramping 2020-02-21 00:00:00 Joshua Rajput Lansoprazole Allergy to substance Active Moderate ITCHING 2018-08-21 00 :00:00 [facility] clopidogrel DA Active U 2015-11-23 00:00:00 [facility] No Known Drug Allergies No Known Drug Allergies Active [facility] Plavix TABS Plavix TABS Active [facility] Family History Family Member Diagnosis Comments Start Date Stop Date Source Unknown Family Member Family History 2013-05-29 15:32:01 2 15:32:01 Joshua Rajput Social History Social Habit Start Date Stop Date Quantity Comments Source Caffeine: 2016-09-10 00:00:00 2016-09-10 00:00:00 [facility] Social History 2014-01-03 19:04:04 2014-01-03 19:04:04 [facility] Sex Assigned At 1935 00:00:00 1935 00:00:00 Female [facility] Medications Ordered Medication Name Filled Medication Name Start Date Stop Da te Current Medication? Ordering Clinician Indication Dosage Frequency Signature (SIG) Comments Components Source Nubia 2020-02-27 02:46:16 Yes Jeffry Parker 1 ta blet as needed [facility] Amlodipine Besylate 2020-02-27 02:46:16 Yes Jeffry Parker 1/2 tablet [facility] Paroxetine HCl 2020-02-27 02:46:16 Yes Jeffry Parker 1 tablet in the morning [facility] Levothyroxine Sodium 2020-02-27 02:46:16 Yes Jeffry Parker 1 tablet [facility] Metoprolol Tartrate 2020-02-27 02:46:16 Yes Jeffry Parker 1 tablet [facility] Calcitriol 2020-02-27 02:46:16 Yes Jeffry Parker 1 capsule [facility] Famotidine 2020-02-27 02:46:16 Yes Jeffry Parker 1 tablet [facility] Atorvastatin Calcium 2020-02-27 02:46:16 Yes Jeffry Parker 1 tablet [facility] Pantoprazole Sodium 2020-02-27 02:46:16 Yes Jeffry Parker 1 tablet [facility] Aspirin 2020-02-27 02:46:16 Yes Jeffry Parker 2 ta blets [facility] Terazosin HCl 2020-02-27 02:46:16 Yes Jeffry Parker 1 null at bedtime [facility] Clopidogrel Bisulfate 2020-02-27 02:46:16 Yes Jeffry Parker 1 tablet [facility] Mirtazapine 2020-02-27 02:46:16 Yes Jeffry Parker 2 tablets at bedtime [facility] Co Q 10 2020-02-27 02:46:16 Yes Jeffry Parker 1 capsule with a meal [facility] Alprazolam 2020-02-27 02:46:16 Yes Jeffry Parker 1 tablet [facility] Sensipar 2020-02-27 02:46:16 Yes Jeffry Parker 1 tablet with food or after a meal [facility] Prolia 2020-02-24 00:00:00 Yes Jeffry Parker as di rected [facility] Warfarin Sodium (Coumadin) 5 Mg TABLET Warfarin Sodium (Coum rob) 5 Mg TABLET 2020-01-31 11:04:00 Yes 5 Daily At 17[facility] Aspirin 2019-09-15 03:47:23 Yes Tatianna Stone 2 t ablets [facility] Amlodipine Besylate 2019-09-15 03:47:23 Yes Tatianna Stone 1 tablet [facility] Sensipar 2019-09-15 03:47:23 Yes Tatianna Chase 1 tablet with food or after a meal [facility] Vitamin D (Ergocalciferol) 2018-11-13 00:00:00 Yes Jeffry Parker 1 capsule [facility] Prolia 2018-10-05 00:00:00 Yes Martin Souza as d irected [facility] [place] 3 2018-04-07 02:47:54 Yes Makeda Ozuna 1 capsule [facility] Famotidine 2018-04-07 02:47:54 Yes Makeda Ozuna 1 tablet as needed [facility] Cyanocobalamin 2018-04-07 02:47:54 Yes Makeda Ozuna 1 ml [facility] Ergocalciferol 2018-04-07 02:47:54 Yes Makeda Ozuna 1 capsule [facility] Tizanidine HCl 2018-04-07 02:47:54 Yes Makeda Ozuna 1 tablet as needed [facility] Sodium Bicarbonate 2017-10-17 03:45:34 Yes Makeda Ozuna 1 tablet [facility] Prolia 2017-08-31 00:00:00 Yes Makeda Ozuna 60M G SQ [facility] Prolia 2017-08-02 03:46:45 Yes Latifa Fakoya 60MG SQ [facility] Vitamin D (Ergocalciferol) 2017-07-23 03:45:21 Yes Owen a Fakoya 1 capsule [facility] Aspir-81 2017-07-23 03:45:21 Yes Latifa Fakoya 1 tablet [facility] Prolia 2017-06-22 00:00:00 Yes Latifa Fakoya 60MG SQ [facility] Metoprolol Tartrate 2017-04-14 02:46:16 Yes Wajeeha Ranjit 1 tablet [facility] Aspir-81 2017-04-14 02:46:16 Yes Wajeeha Ranjit 1 tablet [facility] Prolia 2017-04-14 02:46:16 Yes Wajeeha Ranjit 60M G SQ [facility] Calcitriol 2017-04-14 02:46:16 Yes Wajeeha Ranjit 1 capsule [facility] Levothyroxine Sodium 2017-04-14 02:46:16 Yes Wajeeha Ranjit 1 tablet [facility] Paroxetine HCl 2017-04-14 02:46:16 Yes Wajeeha Ranjit 1 tablet in the morning [facility] [place] 3 2017-04-14 02:46:16 Yes Wajeeha Ranjit 1 capsule [facility] Sodium Bicarbonate 2017-04-14 02:46:16 Yes Wajeeha Ranjit 1 tablet [facility] Famotidine 2017-04-14 02:46:16 Yes Wajeeha Ranjit 1 tablet as needed [facility] Ergocalciferol 2017-04-14 02:46:16 Yes Wajeeha Ranjit 1 capsule [facility] Cyanocobalamin 2017-04-14 02:46:16 Yes Wajeeha Ranjit 1 ml [facility] Amlodipine Besylate 2017-04-14 02:46:16 Yes Wajeeha Ranjit 1/2 tablet [facility] Voltaren Gel 2017-04-05 00:00:00 Yes Latifa Fakoya apply to affected area [facility] Vitamin D (Ergocalciferol) 2016-12-20 00:00:00 Yes Frances Souza 1 capsule [facility] Oxycodone Hydrochloride 5 MG Oral Tablet 2016-11-04 17:10:00 No 5 mg, Route: PO, Drug form: TAB, ONCE, Dosing Weight 59.545, kg, PRN Pain Score 4- 6, Start date: 11/04/16 11:10:00 [facility] Vadim orimarlena Rajput labetalol (ANES) 2016-11-04 16:12:00 No Route: IV, Drug form: INJ, ONCE, Stop date: 11/04/16 10:12:00 [facility] RES[facility] Kyle verasrimarlena Rajput ePHEDrine (ANES) 2016-11-04 15:58:00 No Route: IV, Drug form: INJ, ONCE, Stop date: 11/04/16 9:58:00 [facility] RESIDENT Ga nitza Rajput famotidine ([facility]) 2016-11-04 15:58:00 No Route: IV, Drug form: INJ, ONCE, Stop date: 11/04/16 9:58:00 [facility] PRO[facility] RESIDENT Ga nitza Rajput ondansetron ([facility]) 2016-11-04 15:58:00 No Route: IV, Drug form: INJ, ONCE, Stop date: 11/04/16 9:58:00 [facility] PRO[facility] RESIDENT Ga nitza Rajput fentaNYL ([facility]) 2016-11-04 15:58:00 No Route: IV, Drug form: INJ, ONCE, Stop date: 11/04/16 9:58:00 [facility] RESIDENT Ga nitza Rajput propofol ([facility]) 2016-11-04 15:58:00 No Route: IV, Drug form: INJ, ONCE, Stop date: 11/04/16 9:58:00 [facility] RESIDENT Ga nitza Rajput lidocaine ([facility]) 2016-11-04 15:58:00 No Route: IV, Drug form: INJ, ONCE, Stop date: 11/04/16 9:58:00 [facility] RESIDENT Ga nitza Rajput rocuronium ([facility]) 2016-11-04 15:58:00 No Route: IV, Drug form: INJ, ONCE, Stop date: 11/04/16 9:58:00 [facility] PRO[facility] RESIDENT Ga nitza Rajput neostigmine ([facility]) 2016-11-04 15:58:00 No Route: IV, Drug form: INJ, ONCE, Stop date: 11/04/16 9:58:00 [facility] RESIDENT Ga nitza Rajput glycopyrrolate ([facility]) 2016-11-04 15:58:00 No Route: IV, Drug form: INJ, ONCE, Stop date: 11/04/16 9:58:00 [facility] RESIDENT Joshua Rajput acetaminophen-codeine #3 2016-11-04 15:53:00 No 2 tab, Route: PO, Drug Form: TAB, Dosing Weight 59.545, kg, Q4H, PRN Pain Score 4-6, Start date: 11/04/16 9:53:00 [facility] RESIDENT, Duration: 30 day, Stop date: 12/04/16 9:52:00 CDT [facility] Morphine 2016-11-04 15:53:00 No 2 mg, Route: IVP, Q3H, Dosing Weight 59.545, kg, PRN Pain Score 1-3, Start date: 11/04/16 9:53:00 [facility] RESIDENT, Duration: 30 day, Stop date: 12/04/16 9:52:[address] [facility] vancomycin ([facility]) ([facility]) 2016-11-04 15:19:00 No Route: IV, Drug form: INJ, Start date: 11/04/16 9:19:00 [facility] RESIDENT, Stop date: 11/04/16 10:19:00 [facility] RESIDENT [facility] ceFAZolin ([facility]) ([facility]) 2016-11-04 15:19:00 No Route: IV, Drug form: INJ, Start date: 11/04/16 9:19:00 [facility] RESIDENT, Stop date: 11/04/16 10:19:00 [facility] RESIDENT [facility] sodium chloride 0.9% 500 ml INJ ([facility]) 2016-11-04 15:10:00 No Route: IV, Total Volume: 500, Start date: 11/04/16 9:10:00 [facility] RESIDENT, Stop date: 11/04/16 10:10:00 [facility] RESIDENT [facility] sodium chloride 0.9% 500 ml INJ 500 mL 2016-11-04 14:04:00 No 500 mL, Rate: 40 ml/hr, Infuse over: 12.5 hr, Route: IV, Dosing Weight 59.545 kg, Total Volume: 500, Start date: 11/04/16 8:04:00 [facility] RESIDENT, Duration: 1 day, Stop date: 11/05/16 8:03:00 [facility] Lactated Ringers 1,000 mL 2016-11-04 14:03:00 No 1,000 mL, Rate: 40 ml/hr, Infuse over: 25 hr, Route: IV, Dosing Weight 59.545 kg, Total Volume: 1,000, Start date: 11/04/16 8:03:00 [facility] RESIDENT, Duration: 1 day, Stop date: 11/05/16 8:02:00 [facility] Vitamin D3 50,000 intl units oral capsule 2016-10-28 16:01:00 Yes 50,000 IntlUnit = 1 cap, PO, qWeek, # 12 cap, 0 Refill(s) [facility] glimepiride 1 mg oral tablet 2016-10-28 16:00:00 Yes 1 mg = 1 tab, PO, Daily, 0 Refill(s) [facility] Ancef 2016-10-28 16:00:00 No Notes: Same as : [facility] Vancomycin 2016-10-28 16:00:00 No 2001 mg: infuse over 2.5 hours MEDICATION WASTE Product Size: 1000 mg Product Wasted: ___ mg [facility] Famotidine 10 MG Oral Tablet 2016-10-28 16:00:00 Yes 10 mg = 1 tab, PO, BID, 0 Refill(s) [facility] Nubia 2016-09-14 03:50:08 Yes Martin Burrowser 1 t ablet as needed [facility] Vitamin D (Ergocalciferol) 2016-09-10 00:00:00 Yes Frances rodriguez Souza 1 capsule [facility] Synthroid 2016-03-16 02:55:00 Yes Makeda Ozuna 1 tablet every morning on an empty stomach [facility] Losartan Potassium 2016-03-16 02:55:00 Yes Makeda Ozuna 1 tablet [facility] Tricor 2016-03-16 02:55:00 Yes Makeda Ozuna 1 t ablet [facility] PredniSONE 2016-02-09 00:00:00 Yes Martin Souza 2 tablets with food or milk [facility] Nexium 2016-02-09 00:00:00 Yes Martin Burrowser 1 ca psule [facility] propofol (ANES) 2015-11-24 14:58:00 No Route: IV, Drug form: INJ, ONCE, Stop date: 11/24/15 9:58:00 Memrichar va [facility] lidocaine (ANES) 2015-11-24 14:58:00 No Route: IV, Drug form: INJ, ONCE, Stop date: 11/24/15 9:58:00 Irene va [facility] fentaNYL (ANES) 2015-11-24 14:53:00 No Route: IV, Drug form: INJ, ONCE, Stop date: 11/24/15 9:53:00 Memrichar Retana midazolam (ANES) 2015-11-24 14:53:00 No Route: IV, Drug form: SOLN, ONCE, Stop date: 11/24/15 9:53:00 Irene Retana ceFAZolin (ANES) 2015-11-24 14:53:00 No Route: IV, Drug form: INJ, ONCE, Stop date: 11/24/15 9:53:00 Irene Retana Oxycodone 2015-11-24 14:51:00 No Notes: (Sa me as: Roxicodone) Joshua Rajput Flumazenil 2015-11-24 14:51:00 No Notes: (S juan as: Romazicon) [facility] Meperidine 2015-11-24 14:51:00 No Notes: (S juan As: Demerol) Joshua Rajput Naloxone 2015-11-24 14:51:00 No Notes: Same as Narcan Joshua Rajput Fentanyl 2015-11-24 14:51:00 No Notes: (Same as: Sublimaze) Preservative free. Joshua Rajput Hydromorphone 2015-11-24 14:51:00 No 0.5 mg, 0.5 mL, Route: IVP, Drug form: INJ, Q5Min, Dosing Weight 57.784, kg, PRN Pain Score 7-10, Start date: 11/24/15 9:51:00, Duration: 4 doses or times, Stop date: Limited # of times Joshua Rajput Ondansetron 2015-11-24 14:51:00 No Notes: (Same as: Zofran) MEDICATION WASTE Product Size: 4 mg Product Wasted: ___ mg Joshua Rajput Hydralazine 2015-11-24 14:51:00 No Notes: (Same as: Apresoline) Push over 5 minutes Joshua Rajput ondansetron ([facility]) 2015-11-24 14:43:00 No Route: IV, Drug form: INJ, ONCE, Stop date: 11/24/15 9:43:00 Irene Rteana vancomycin (ANES) (ANES) 2015-11-24 14:11:00 No Route: IV, Drug form: INJ, Start date: 11/24/15 9:11:00, Stop date: 11/24/15 10:11:00 Joshua Rajput Sodium Chloride 0.154 MEQ/ML Injectable Solution 2015-11-24 14:0 9:00 No 500 mL, Rate: 25 ml/hr, Infu se over: 20 hr, Route: IV, Dosing Weight 57.784 kg, Total Volume: 500, Start date: 11/24/15 9:09:00, Duration: 30 day, Stop date: 12/24/15 9:08:00 [facility] Sodium Chloride 0.9% IV (ANES) (ANES) 2015-11-24 14:08:00 N o Route: IV, Total Volume: 500, Start date: 11/24/15 9:08:00, Stop date: 11/24/15 10:08:00 [facility] Calcium Chloride 0.0014 MEQ/ML / Potassi um Chloride 0.004 MEQ/ML / Sodium Chloride 0.103 MEQ/ML / Sodium Lactate 0.028 MEQ/ML Injectable Solution 2015-11-24 14:08:00 No 1,000 mL, Rate: 25 ml/hr, Infuse over: 40 hr, Route: IV, Dosing Weight 57.784 kg, Total Volume: 1,000, Start date: 11/24/15 9:08:00, Duration: 30 day, Stop date: 12/24/15 9:07:00 [facility] Vancomycin 2015-11-17 22:00:00 No 2001 mg: infuse over 2.5 hours MEDICATION WASTE Product Size: 1000 mg Product Wasted: ___ mg [facility] Ancef 2015-11-17 22:00:00 No Notes: Same as : [facility] Hydralazine 2015-03-24 18:35:00 No 10 mg, Route: IVP, Q20Min, Dosing Weight 60, kg, PRN Elevated BP, Start date: 03/24/15 13:35:00, Duration: 2 doses or times, Stop date: Limited # of times [facility] Glycopyrrolate 2015-03-24 18:35:00 No 0.2 mg, Route: IVP, Q5Min, Dosing Weight 60, kg, PRN Bradycardia, Start date: 03/24/15 13:35:00, Duration: 3 doses or times, Stop date: Limited # of times [facility] Ondansetron 2015-03-24 18:35:00 No 4 mg, Route: IVP, ONCE, Dosing Weight 60, kg, PRN Nausea & Vomiting, Start date: 03/24/15 13:35:00 [facility] Flumazenil 2015-03-24 18:35:00 No 0.2 mg, Route: IVP, PRN, Dosing Weight 60, kg, PRN Benzodiazepine Reversal, Initial dose, Start date: 03/24/15 13:35:00, Duration: 30 day, Stop date: 04/23/15 13:34:00 [facility] Meperidine 2015-03-24 18:35:00 No 12.5 mg, Route: IVP, Q30Min, Dosing Weight 60, kg, PRN Other -See Comment, For shivering, Start date: 03/24/15 13:35:00, Duration: 2 doses or times, Stop date: Limited # of times [facility] Promethazine 2015-03-24 18:35:00 No 6.25 mg, Route: IVPB, ONCE, Dosing Weight 60, kg, PRN Nausea & Vomiting, Start date: 03/24/15 13:35:00 [facility] Naloxone 2015-03-24 18:35:00 No 0.04 mg, Route: IVP, Q2MIN, Dosing Weight 60, kg, PRN Narcotic Reversal, Start date: 03/24/15 13:35:00, Duration: 8 doses or times, Stop date: Limited # of times [facility] Morphine 2015-03-24 18:35:00 No 4 mg, Route: IVP, Q5Min, Dosing Weight 60, kg, PRN Pain Score 7-10, Start date: 03/24/15 13:35:00, Duration: 3 doses or times, Stop date: Limited # of times [facility] Hydromorphone 2015-03-24 18:35:00 No 0.5 mg, Route: IVP, Q5Min, Dosing Weight 60, kg, PRN Pain Score 7-10, Start date: 03/24/15 13:35:00, Duration: 4 doses or times, Stop date: Limited # of times [facility] Diphenhydramine 2015-03-24 18:35:00 No 12.5 mg, Route: IVP, Drug form: INJ, Q6H, Dosing Weight 60, kg, PRN Itching, Start date: 03/24/15 13:35:00, Duration: 30 day, Stop date: 04/23/15 13:34:00 [facility] Fentanyl 2015-03-24 18:35:00 No 25 microgram, Route: IVP, Q5Min, Dosing Weight 60, kg, PRN Pain Score 4-6, Start date: 03/24/15 13:35:00, Duration: 4 doses or times, Stop date: Limited # of times [facility] Ketorolac 2015-03-24 18:35:00 Yes 4 days MEDICATION WASTE Product Size: 30 mg Product Wasted: ___ mg [facility] Oxycodone 2015-03-24 18:35:00 No 10 mg, Route: PO, Drug form: TAB, Q4H, Dosing Weight 60, kg, PRN Pain Score 7-10, Start date: 03/24/15 13:35:00, Duration: 30 day, Stop date: 04/23/15 13:34:00 [facility] Metoprolol 2015-03-24 18:35:00 No 1 mg, Route: IVP, Q5Min, Dosing Weight 60, kg, PRN Other -See Comment, Start date: 03/24/15 13:35:00, Duration: 5 doses or times, Stop date: Limited # of times [facility] acetaminophen-codeine #3 2015-03-24 18:01:00 No 1 tab, Route: PO, Drug Form: TAB, Dosing Weight 60, kg, Q4H, PRN Pain Score 4-6, Start date: 03/24/15 13:01:00, Duration: 30 day, Stop date: 04/23/15 13:00:00 [facility] Morphine 2015-03-24 18:01:00 No 2 mg, Route: IVP, Q3H, Dosing Weight 60, kg, PRN Pain Score 1-3, Start date: 03/24/15 13:01:00, Duration: 30 day, Stop date: 04/23/15 13:00:00 [facility] Ancef 2015-03-24 16:43:00 No 2 gm, Route: IVPB, ONCE, Dosing Weight 60, kg, Start date: 03/24/15 11:43:00, Duration: 1 doses or times, Stop date: 03/24/15 11:43:00 [facility] Sodium Chloride 0.154 MEQ/ML Injectable Solution 2015-03-23 13:2 6:00 No 500 mL, Rate: 25 ml/hr, Infu se over: 20 hr, Route: IV, Dosing Weight 60 kg, Total Volume: 500, Start date: 03/23/15 8:26:00, Duration: 2 day, Stop date: 03/25/15 8:25:00 [facility] Vancomycin 2015-03-17 20:00:00 No N otes: TIME CRITICAL MEDICATION [facility] Vitamin B-12 2015-01-01 02:59:57 Yes Martin Souza 15 ml [facility] Omeprazole 2015-01-01 02:59:57 Yes Martin Souza 2 capsules [facility] Glimepiride 2015-01-01 02:59:57 Yes Martin Souza 1 tablet with breakfast or the first main meal of the day [facility] Atorvastatin Calcium 2015-01-01 02:59:57 Yes Martin Souza 1 tablet [facility] Fenofibrate 2015-01-01 02:59:57 Yes Martin Souza 1 tablet [facility] Glimepiride 1 MG Oral Tablet 2014-01-03 19:04:04 Yes (Active) [facility] Levothyroxine Sodium 75 MCG Oral Tablet 2014-01-03 19:04:04 Yes (Active) [facility] Omeprazole 20 MG Oral Capsule Delayed Release 2014-01-03 19:04:0 4 Yes (Active) [facility] AmLODIPine Besylate 5 MG Oral Tablet 2014-01-03 19:04:04 Ye s (Active) [facility] Nubia Allergy 180 MG Oral Tablet 2014-01-03 19:04:04 Yes (Active) [facility] Fish Oil Concentrate 1000 MG Oral Capsule 2014-01-03 19:04:04 Yes (Active) [facility] Metoprolol Succinate ER 50 MG Oral Tablet Extended Release 2 4 Hour 2014-01-03 19:04:04 Yes (Active) [facility] [place] Gabapentin 100 MG Oral Capsule 2014-01-03 19:04:04 Yes (Active) [facility] Metoprolol Succinate ER 50 MG Oral Tablet Extended Release 2 4 Hour 2013-11-08 13:32:05 Yes (Active) [facility] [place] Atorvastatin Calcium 10 MG Oral Tablet 2013-11-08 05:00:00 Yes ; Start Date: 11/08/2013; End Date: (Active) Joshua Rajput Atorvastatin Calcium 10 MG Oral Tablet 2013-11-06 20:34:17 Yes (Active) Joshua Rajput Cyanocobalamin 1000 MCG/ML Injection Solution 2013-08-16 15:31:3 7 Yes (Active) Joshua Rajput Clopidogrel Bisulfate 75 MG Oral Tablet 2013-08-16 15:31:37 Yes (Active) Joshua Rajput Integra Plus Oral Capsule 2013-08-16 15:31:37 Yes (Active) Joshua Rajput Fenofibrate 48 MG Oral Tablet 2013-08-16 06:00:00 Yes ; Start Date: 08/16/2013; End Date: (Active) Joshua Rajput Fenofibrate 48 MG Oral Tablet 2013-08-09 20:33:17 Yes (Active) Joshua Rajput Cyanocobalamin 1000 MCG/ML Injection Solution 2013-08-09 06:00:0 0 Yes ; Start Date: 08/09/2013 (Active) Joshua Rajput PARoxetine HCl 10 MG Oral Tablet 2013-07-12 06:00:00 Yes ; Start Date: 07/12/2013 (Active) Joshua Giles nn Fish Oil CAPS 2013-06-18 16:04:19 Yes (Acti ve) Joshua Rajput Integra Plus CAPS 2013-06-18 16:04:19 Yes ( Active) Joshua Rajput Allergy TABS 2013-06-04 15:02:02 Yes (Activ e) Joshua Rajput Losartan Potassium 25 MG Oral Tablet 2013-06-04 05:00:00 Ye s ; Start Date: 06/04/2013 (Active) Joshua Giles nn Losartan Potassium 25 MG Oral Tablet 2013-05-29 15:32:01 Ye s (Active) Joshua Rajput Alprazolam Alprazolam Yes .25 As Needed [facility] Amlodipine Besylate Amlodipine Besylate Yes 5 Daily [facility] Aspirin (Aspir 81) 81 Mg TABLET. Aspirin (Aspir 81) 81 Mg TABLET. Yes 81 Bedtime [facility] Atorvastatin Calcium Atorvastatin Calcium Yes 20 Bedtime [facility] Calcitriol Calcitriol Yes .25 Daily [facility] Cinacalcet Hcl (Sensipar) 30 Mg TABLET Cinacalcet Hcl (Sensipar) 30 Mg TABLET Yes 60 Today At 9:00PM [facility] Famotidine Famotidine Yes [address] [facility] Fexofenadine Hcl (Nubia Allergy) 180 Mg TABLET Fexof enadine Hcl (Nubia Allergy) 180 Mg TABLET Yes 160 As Needed as ne eded for Allergy [facility] Levothyroxine Sodium (Levothroid) 75 Mcg TABLET Levoth yroxine Sodium (Levothroid) 75 Mcg TABLET Yes 75 Daily [facility] Metoprolol Succinate Metoprolol Succinate Yes 50 Bedtime [facility] Mirtazapine Mirtazapine Yes 7.5 Bedtime [facility] Ondansetron Hcl (Zofran*) 4 Mg TABLET Ondansetron Hcl (Zofran*) 4 M g TABLET Yes 4 As Needed [facility] Pantoprazole Sodium (Protonix) 40 Mg TABLET. Pantopr azole Sodium (Protonix) 40 Mg TABLET. Yes 40 Daily [facility] Proliva Proliva Yes 160 Q6 Months [facility] Sevelamer Carbonate (Renvela) 0.8 Gm POWD.PACK Sevelam er Carbonate (Renvela) 0.8 Gm POWD.PACK Yes [facility] Terazosin Hcl Terazosin Hcl Yes 2 Bedtime [facility] Ubidecarenone (Coenzyme Q-10) 50 Mg CAPSULE Ubidecaren one (Coenzyme Q-10) 50 Mg CAPSULE Yes 100 Daily [facility] Clopidogrel Bisulfate (Clopidogrel) 75 Mg TABLET Clopi dogrel Bisulfate (Clopidogrel) 75 Mg TABLET 2020-01-30 00:00:00 No 75 Daily [facility] Amoxicillin/Potassium Clav (Augmentin 500-125 Tablet) 1 Each TABLET Amoxicillin/Potassium Clav (Augmentin 500-125 Tablet) 1 Each TABLET 2019-09-23 00:00:00 No 500 Daily [facility] Calcitriol Calcitriol 2018-11-12 00:00:00 No .25 Fouzia ly [facility] Paroxetine Hcl Paroxetine Hcl 2018-11-12 00:00:00 No 10 Daily [facility] Denosumab (Prolia) 60 Mg/1 Ml DISP.SYRIN Denosumab (Pr michelle) 60 Mg/1 Ml DISP.SYRIN 2018-05-22 00:00:00 No 60 As Needed [facility] Cyanocobalamin (Cyanocobalamin Injection) 1,000 Mcg/Ml SOLN Cyanocobalamin (Cyanocobalamin Injection) 1,000 Mcg/Ml SOLN 2018-03-28 00:00:00 No 1000 Monthly [facility] Docusate Sodium (Stool Softener) 100 Mg CAPSULE Docusa te Sodium (Stool Softener) 100 Mg CAPSULE 2018-03-28 00:00:00 No 2 Bedtime [facility] Fenofibrate (Tricor) 48 Mg TAB Fenofibrate (Tricor) 48 Mg TAB 2018-03-28 00:00:00 No 48 Bedtime [facility] Gabapentin Gabapentin 2018-03-28 00:00:00 No 100 Bed time [facility] Glimepiride (Amaryl) 1 Mg TABLET Glimepiride (Amaryl) 1 Mg TABLE T 2018-03-28 00:00:00 No 1 Daily [facility] Iron Fum & P/Fa/Vit B & C No.9 (Integra Plus Capsule) 1 Each CAPSULE Iron Fum & P/Fa/Vit B & C No.9 (Integra Plus Capsule) 1 Each CAPSULE 20 15-03-31 00:00:00 No 1 Bedtime [facility] Losartan Potassium Losartan Potassium 2018-03-28 00:00:00 No 25 Daily [facility] Omeprazole Omeprazole 2018-03-28 00:00:00 No 40 Fouzia ly [facility] Sennosides/Docusate Sodium (Stool Softener Tablet) 1 E ach TABLET Sennosides/Docusate Sodium (Stool Softener Tablet) 1 Each TABLET 2018-03-28 00:00:00 No [facility] Sparkle Villagran 2017-06-15 00:00:00 No 4 Twic e A Day as needed for Nausea [facility] [place]-3 Fatty Acids/Fish Oil (Fish Oil 1,000 Mg Capsul e) 1 Each CAPSULE [place]-3 Fatty Acids/Fish Oil (Fish Oil 1,000 Mg Capsule) 1 Each CAPSULE 2014-03-31 00:00:00 No 2000 Daily [facility] Aspirin (Adult Aspirin) 81 Mg TAB.CHEW Aspirin (Adult Aspirin) 8 1 Mg TAB.CHEW 2013-05-13 00:00:00 No Daily [facility] Atorvastatin Calcium (Lipitor) 10 Mg TABLET Atorvastat in Calcium (Lipitor) 10 Mg TABLET 2013-05-13 00:00:00 No Qhs [facility] Fenofibrate Nanocrystallized (Tricor) 48 Mg TABLET Fen ofibrate Nanocrystallized (Tricor) 48 Mg TABLET 2013-05-13 00:00:00 No Qh s [facility] Fish Oil/Fat No.8/Hrb Comb.137 ([place] 3-6-9 1,200 Mg S oftgel) 1,200 Mg CAPSULE Fish Oil/Fat No.8/Hrb Comb.137 ([place] 3-6-9 1,200 Mg Softgel) 1,200 Mg CAPSULE 2013-05-13 00:00:00 No Daily [facility] Glimepiride (Amaryl) 1 Mg TABLET Glimepiride (Amaryl) 1 Mg TABLE T 2013-05-13 00:00:00 No Daily [facility] Isradipine (Dynacirc Cr) 5 Mg TAB.ER.24 Isradipine (Dynacirc Cr) 5 Mg TAB.ER.24 2013-05-13 00:00:00 No Daily [facility] Levothyroxine Sodium (Synthroid) 75 Mcg TABLET Levothy roxine Sodium (Synthroid) 75 Mcg TABLET 2013-05-13 00:00:00 No Qhs [facility] Metoprolol Succinate (Toprol Xl) 50 Mg TAB.SR.24H Meto prolol Succinate (Toprol Xl) 50 Mg TAB.SR.24H 2013-05-13 00:00:00 No Fouzia ly [facility] Omeprazole (Prilosec) 20 Mg CAPSULE. Omeprazole (Prilosec) 20 Mg CAPSULE. 2013-05-13 00:00:00 No Daily [facility] Vital Signs Vital Name Observation Time Observation Value Comments Source Weight 2020-02-21 20:00:00 [facility] Height 2020-02-21 20:00:00 [facility] Temperature Oral (F) 2020-02-21 20:00:00 97.2 F [facility] Heart Rate 2020-02-21 20:00:00 [facility] [place] Diastolic (mm Hg) 2020-02-21 20:00:00 [facility] [place] Systolic (mm Hg) 2020-02-21 20:00:00 [facility] [place] Body Temperature 2020-01-31 11:35:00 97.8 [degF] [facility] BMI (Body Mass Index) 2020-01-28 19:48:00 19.4 kg/m2 [facility] Weight 2020-01-28 11:00:00 113 [lb_av] [facility] Body Temperature 2020-01-27 15:02:00 98.0 [degF] [facility] Weight 2020-01-27 11:15:00 113 [lb_av] [facility] BMI (Body Mass Index) 2020-01-27 11:15:00 19.4 kg/m2 [facility] Weight 2019-07-24 19:00:00 [facility] Height 2019-07-24 19:00:00 [facility] Temperature Oral (F) 2019-07-24 19:00:00 98.2 F [facility] [place] Heart Rate 2019-07-24 19:00:00 [facility] Diastolic (mm Hg) 2019-07-24 19:00:00 [facility] Systolic (mm Hg) 2019-07-24 19:00:00 [facility] [place] Weight 2018-04-04 16:00:00 [facility] Height 2018-04-04 16:00:00 [facility] [place] Temperature Oral (F) 2018-04-04 16:00:00 97.9 F [facility] [place] Heart Rate 2018-04-04 16:00:00 [facility] Diastolic (mm Hg) 2018-04-04 16:00:00 [facility] Systolic (mm Hg) 2018-04-04 16:00:00 [facility] [place] Weight 2017-10-12 15:15:00 [facility] [place] Height 2017-10-12 15:15:00 [facility] Temperature Oral (F) 2017-10-12 15:15:00 97.4 F [facility] [place] Heart Rate 2017-10-12 15:15:00 [facility] Diastolic (mm Hg) 2017-10-12 15:15:00 [facility] Systolic (mm Hg) 2017-10-12 15:15:00 [facility] Weight 2017-09-22 16:30:00 [facility] [place] Height 2017-09-22 16:30:00 [facility] [place] Temperature Oral (F) 2017-09-22 16:30:00 97.9 F [facility] [place] Heart Rate 2017-09-22 16:30:00 [facility] [place] Diastolic (mm Hg) 2017-09-22 16:30:00 [facility] [place] Systolic (mm Hg) 2017-09-22 16:30:00 [facility] Weight 2017-08-01 16:00:00 [facility] [place] Height 2017-08-01 16:00:00 [facility] Temperature Oral (F) 2017-08-01 16:00:00 98.6 F [facility] Heart Rate 2017-08-01 16:00:00 [facility] Diastolic (mm Hg) 2017-08-01 16:00:00 [facility] [place] Systolic (mm Hg) 2017-08-01 16:00:00 [facility] [place] Weight 2017-07-07 22:00:00 [facility] Height 2017-07-07 22:00:00 [facility] [place] Temperature Oral (F) 2017-07-07 22:00:00 100.9 F [facility] [place] Heart Rate 2017-07-07 22:00:00 [facility] Diastolic (mm Hg) 2017-07-07 22:00:00 [facility] [place] Systolic (mm Hg) 2017-07-07 22:00:00 [facility] [place] Weight 2017-04-05 16:30:00 [facility] Height 2017-04-05 16:30:00 [facility] Temperature Oral (F) 2017-04-05 16:30:00 98.1 F [facility] Heart Rate 2017-04-05 16:30:00 [facility] [place] Diastolic (mm Hg) 2017-04-05 16:30:00 [facility] Systolic (mm Hg) 2017-04-05 16:30:00 [facility] [place] Systolic (mm Hg) 2016-11-04 18:00:00 [facility] Diastolic (mm Hg) 2016-11-04 18:00:00 [facility] Systolic (mm Hg) 2016-11-04 17:30:00 [facility] [place] Diastolic (mm Hg) 2016-11-04 17:30:00 [facility] Systolic (mm Hg) 2016-11-04 17:00:00 [facility] Diastolic (mm Hg) 2016-11-04 17:00:00 [facility] [place] Respitory Rate 2016-11-04 16:45:00 [facility] [place] Respitory Rate 2016-11-04 16:30:00 [facility] Respitory Rate 2016-11-04 16:15:00 [facility] [place] Heart Rate 2016-11-04 14:08:00 [facility] [place] Temperature Oral (F) 2016-10-28 15:29:00 97.5 F [facility] [place] Heart Rate 2016-10-28 15:29:00 [facility] [place] Height 2016-10-28 15:22:00 162.56 cm [facility] [place] Weight 2016-10-28 15:22:00 [facility] [place] BMI Calculated 2016-10-28 15:22:00 [facility] [place] Weight 2016-09-10 16:30:00 [facility] [place] Height 2016-09-10 16:30:00 [facility] [place] Temperature Oral (F) 2016-09-10 16:30:00 96.9 F [facility] [place] Heart Rate 2016-09-10 16:30:00 [facility] Diastolic (mm Hg) 2016-09-10 16:30:00 [facility] Systolic (mm Hg) 2016-09-10 16:30:00 [facility] [place] Weight 2016-03-11 15:45:00 [facility] Height 2016-03-11 15:45:00 [facility] Temperature Oral (F) 2016-03-11 15:45:00 98.5 F [facility] Heart Rate 2016-03-11 15:45:00 [facility] [place] Diastolic (mm Hg) 2016-03-11 15:45:00 [facility] [place] Systolic (mm Hg) 2016-03-11 15:45:00 [facility] [place] Systolic (mm Hg) 2015-11-24 17:30:00 [facility] [place] Diastolic (mm Hg) 2015-11-24 17:30:00 [facility] [place] Systolic (mm Hg) 2015-11-24 17:15:00 [facility] Diastolic (mm Hg) 2015-11-24 17:15:00 [facility] Systolic (mm Hg) 2015-11-24 17:00:00 [facility] [place] Diastolic (mm Hg) 2015-11-24 17:00:00 [facility] Respitory Rate 2015-11-24 15:45:00 [facility] Respitory Rate 2015-11-24 15:30:00 [facility] Respitory Rate 2015-11-24 15:15:00 [facility] Temperature Oral (F) 2015-11-17 21:53:00 97.9 F [facility] Heart Rate 2015-11-17 21:53:00 [facility] BMI Calculated 2015-11-17 21:30:00 [facility] Weight 2015-11-17 21:30:00 [facility] Height 2015-11-17 21:30:00 162.56 cm [facility] [place] Systolic (mm Hg) 2015-03-24 20:15:00 [facility] [place] Diastolic (mm Hg) 2015-03-24 20:15:00 [facility] [place] Systolic (mm Hg) 2015-03-24 20:00:00 [facility] Diastolic (mm Hg) 2015-03-24 20:00:00 [facility] [place] Systolic (mm Hg) 2015-03-24 19:45:00 [facility] Diastolic (mm Hg) 2015-03-24 19:45:00 [facility] Respitory Rate 2015-03-24 19:00:00 [facility] Respitory Rate 2015-03-24 18:45:00 [facility] [place] Respitory Rate 2015-03-24 18:30:00 [facility] [place] Heart Rate 2015-03-17 20:07:00 [facility] Temperature Oral (F) 2015-03-17 20:07:00 98.4 F [facility] Height 2015-03-17 19:18:00 162.56 cm [facility] [place] BMI Calculated 2015-03-17 19:18:00 [facility] [place] Weight 2015-03-17 19:18:00 [facility] [place] Weight 2014-12-12 15:00:00 [facility] Height 2014-12-12 15:00:00 [facility] [place] Temperature Oral (F) 2014-12-12 15:00:00 98.0 F [facility] [place] Heart Rate 2014-12-12 15:00:00 [facility] [place] Diastolic (mm Hg) 2014-12-12 15:00:00 [facility] Systolic (mm Hg) 2014-12-12 15:00:00 [facility] [place] Weight 2014-06-13 15:15:00 [facility] [place] Height 2014-06-13 15:15:00 [facility] Temperature Oral (F) 2014-06-13 15:15:00 98.2 F [facility] [place] Heart Rate 2014-06-13 15:15:00 [facility] [place] Diastolic (mm Hg) 2014-06-13 15:15:00 [facility] Systolic (mm Hg) 2014-06-13 15:15:00 [facility] [place] Weight 2013-12-12 15:30:00 [facility] [place] Height 2013-12-12 15:30:00 [facility] Temperature Oral (F) 2013-12-12 15:30:00 97.5 F [facility] [place] Heart Rate 2013-12-12 15:30:00 [facility] [place] Diastolic (mm Hg) 2013-12-12 15:30:00 [facility] [place] Systolic (mm Hg) 2013-12-12 15:30:00 [facility] [place] Procedures Procedure Date / Time Performed Performing Clinician [facility] e Magnetic resonance angiography of head without contrast 00:00:00 [facility] Magnetic resonance angiography of neck without contrast 00:00:00 [facility] Computed tomography of brain without radiopaque contrast 2020-01 00:00:00 [facility] Magnetic resonance imaging of brain without contrast 2020-01-28 00:00:00 [facility] Computed tomography of brain without radiopaque contrast 2019-12 00:00:00 [facility] Computed tomography of brain without radiopaque contrast 202 00:00:00 LOY SO [facility] Computed tomography of brain without radiopaque contrast 202 00:00:00 LOY SO [facility] Magnetic resonance imaging of brain without contrast 2019-08 00:00:00 ERICKA GREENE [facility] Abdominal hysterectomy [facility] Appendectomy [facility] Cholecystectomy [facility] Colonoscopy [facility] Excision of ganglion cyst Irene [facility] Plan of Care Planned Activity Planned Date Details [facility] Future Scheduled Test 2014-01-03 19:04:04 Plan of Care [code = 1877 6-5] [facility] Scheduled Test 2013-11-08 13:32:05 Plan of Care [code = 1877 6-5] [facility] Scheduled Test 2013-11-06 20:34:17 Plan of Care [code = 1877 6-5] [facility] Scheduled Test 2013-10-25 15:32:03 Plan of Care [code = 1877 6-5] [facility] Scheduled Test 2013-10-09 20:37:28 Plan of Care [code = 1877 6-5] [facility] Scheduled Test 2013-08-16 15:31:37 Plan of Care [code = 1877 6-5] [facility] Scheduled Test 2013-08-09 20:33:17 Plan of Care [code = 1877 6-5] [facility] Scheduled Test 2013-07-12 19:01:33 Plan of Care [code = 1877 6-5] [facility] Scheduled Test 2013-06-18 16:04:19 Plan of Care [code = 1877 6-5] [facility] Instructions Anemia - Oncology [facility] Instructions Infection Control [facility] Instructions Peritoneal Dialysis [facility] Encounters Start Date/Time End Date/Time Encounter Type Admission Type Attendi [facility] Care Department Encounter ID Source 2020-02-21 15:00:00 2020-02-21 15:00:00 Outpatient Martin ANNE [id number] CHELSEA Souza MD 2020-01-28 12:38:00 2020-01-31 12:27:00 Discharged Inpatient (obs) 1 CHRISTEL HATHAWAY [facility] [id number] [facility] 2020-01-27 10:59:00 2020-01-27 15:07:00 Departed Emergency Room 1 VADIM MUNOZ [facility] [id number] [facility] 2020-01-07 10:56:00 2020-01-07 10:56:00 Outpatient Martin Souza MD [place] [id number] Castillo Souza MD 2019-10-05 09:03:00 2019-10-05 13:37:00 Departed Emergency Room 1 ERICKA GREENE [facility] [id number] [facility] 2019-09-24 09:14:00 2019-09-24 11:30:00 Departed Emergency Room [facility] [id number] [facility] 2019-09-22 13:23:00 2019-09-23 13:53:00 Discharged Inpatient (obs) 1 RODNEY ROSADO [facility] [id number] [facility] 2019-09-10 15:41:00 2019-09-10 15:41:00 Outpatient Martin Souza MD PA [id number] CHELSEA Souza MD 2019-07-24 13:00:00 2019-07-24 13:00:00 Outpatient Martin Souza MD [place] [id number] Castillo Souza MD 2019-07-19 15:10:00 2019-07-19 23:59:00 Outpatient Melonie Rosado [facility] [id number] 2019-07-19 15:50:00 2019-07-19 15:50:00 Outpatient MD OMID De Jesus MD [place] [id number] Castillo Souza MD 2019-07-19 11:02:00 2019-07-19 11:02:00 Outpatient MD OMID De Jesus MD [place] [id number] Castillo Souza MD 2019-07-17 13:57:00 2019-07-17 13:57:00 Outpatient MD OMID De Jesus MD [place] [id number] Castillo Souza MD 2019-07-13 15:04:00 2019-07-13 15:04:00 Outpatient MD OMID De Jesus MD PA [id number] Castillo Souza MD 2019-06-27 10:41:00 2019-06-27 10:41:00 Outpatient MD OMID De Jesus MD PA [id number] CHELSEA Souza MD 2019-06-11 14:36:00 2019-06-11 14:36:00 Outpatient MD OMID De Jesus MD [place] [id number] CHELSEA Souza MD 2018-11-12 17:35:00 2018-11-16 10:59:00 Discharged Inpatient 1 RODNEY ROSADO [facility] [id number] [facility] 2018-11-13 15:57:00 2018-11-13 15:57:00 Outpatient Martin Souza MD [place] [id number] CHELSEA Souza MD 2018-10-25 10:54:00 2018-10-25 10:54:00 Outpatient Martin Souza MD [place] [id number] CHELSEA Souza MD 2018-08-28 09:56:00 2018-09-01 10:31:00 Discharged Inpatient 1 RODNEY ROSADO [facility] [id number] [facility] 2018-07-13 11:30:00 2018-08-11 23:59:00 Outpatient Rodney Rosado [id number] 2018-07-17 15:30:00 2018-07-17 23:59:00 Outpatient Melonie Rosado [facility] [id number] 2018-06-12 13:00:00 2018-07-11 23:59:00 Outpatient Rodney Rosado [id number] 2018-05-11 14:16:00 2018 23:59:00 Outpatient Rodney Rosado [id number] 2018 12:41:00 2018 12:41:00 Outpatient Martin Souza MD [place] [id number] Castillo Souza MD 2018-05-19 12:17:00 2018-05-22 13:43:00 Discharged Inpatient (obs) 1 CHRISTEL HATHAWAY [facility] [id number] [facility] 2018-05-16 09:48:00 2018-05-18 11:14:00 Discharged Inpatient 1 CHRISTEL HATHAWAY [facility] [id number] [facility] 2018-05-02 13:53:00 2018-05-02 23:59:00 Outpatient Melonie Rosado [facility] MHOIB [id number] 2018-04-12 09:19:00 2018-04-12 09:19:00 Outpatient Martin Souza MD PA [id number] CHELSEA Souza MD 2018-04-04 11:00:00 2018-04-04 11:00:00 Outpatient Martin Souza MD PA [id number] Castillo Souza MD 2018-03-28 20:30:00 2018-03-31 13:56:00 Discharged Inpatient (obs) [facility] [id number] [facility] 2018-02-28 09:58:00 2018-02-28 09:58:00 Outpatient Martin ANNE [id number] Castillo Souza MD 2017-10-12 09:15:00 2017-10-12 09:15:00 Outpatient Martin Souza MD PA [id number] Castillo Souza MD 2017-09-22 11:33:00 2017-09-22 11:33:00 Outpatient Martin Souza MD PA [id number] Castillo Souza MD 2017-09-22 10:30:00 2017-09-22 10:30:00 Outpatient Martin Souza MD PA [id number] Castillo Souza MD 2017-08-30 13:51:00 2017-08-30 13:51:00 Outpatient Martin Souza MD PA [id number] Castillo Souza MD 2017-08-01 10:00:00 2017-08-01 10:00:00 Outpatient Martin Souza MD PA [id number] Castillo Souza MD 2017-07-22 12:45:00 2017-07-22 15:00:00 Departed Emergency Room [facility] [id number] [facility] 2017-07-16 15:24:00 2017-07-16 23:59:00 Outpatient Melonie Rosado [facility] [id number] 2017-07-07 17:32:00 2017-07-07 17:32:00 Outpatient Martin Souza MD PA [id number] Castillo Souza MD 2017-07-07 16:00:00 2017-07-07 16:00:00 Outpatient Martin Souza MD PA [id number] Castillo Souza MD 2017-07-03 12:40:00 2017-07-03 16:25:00 Departed Emergency Room ER PATRICK DAMON [facility] [id number] [facility] 2017-06-22 15:33:00 2017-06-22 15:33:00 Outpatient Martin Souza MD PA [id number] CHELSEA Souza MD 2017-06-13 14:53:00 2017-06-15 12:32:00 Discharged Inpatient (obs) ER RODNEY ROSADO [facility] [id number] [facility] 2017-04-05 11:30:00 2017-04-05 11:30:00 Outpatient Martin Souza MD PA [id number] Castillo Souza MD 2017-03-07 11:57:00 2017-03-07 11:57:00 Outpatient Martin Souza MD PA [id number] CHELSEA Souza MD 2016-12-20 10:55:00 2016-12-20 10:55:00 Outpatient Martin Souza MD PA [id number] CHELSEA Souza MD 2016-11-04 05:56:00 2016-11-04 12:15:00 Outpatient Isabelle Hand [facility] MHSE [id number] 2016-09-10 11:39:00 2016-09-10 11:39:00 Outpatient MD Martin De Jesus MD [id number] CHELSEA Souza MD 2016-09-10 11:26:00 2016-09-10 11:26:00 Outpatient MD Martin De Jesus MD [id number] CHELSEA Souza MD 2016-09-10 10:30:00 2016-09-10 10:30:00 Outpatient MD Martin De Jesus MD [id number] Castillo Souza MD 2016-05-06 14:34:00 2016-05-06 14:34:00 Outpatient MD Martin De Jesus MD [id number] CHELSEA Souza MD 2016-03-11 10:45:00 2016-03-11 10:45:00 Outpatient MD Martin De Jesus MD [id number] CHELSEA Souza MD 2016-03-03 15:18:00 2016-03-03 23:59:00 Outpatient Melonie Rosado MHOIB MHOIB [id number] 2016-02-25 12:39:00 2016-02-25 12:39:00 Outpatient MD Martin De Jesus MD [id number] Castillo Souza MD 2016-02-09 12:54:00 2016-02-09 12:54:00 Outpatient MD Martin De Jesus MD [id number] CHELSEA Souza MD 2016-02-04 14:38:00 2016-02-04 14:38:00 Outpatient MD Martin De Jesus MD [id number] CHELSEA Souza MD 2015-11-24 05:16:00 2015-11-24 12:30:00 Outpatient Isabelle Hand [facility] MHSE [id number] 2015-08-19 14:11:00 2015-08-19 23:59:00 Outpatient Melonie Rosado [facility]IP M[facility]IP [id number] 2015-07-10 19:02:00 2015-07-10 19:02:00 Outpatient MD Martin De Jesus MD [id number] CHELSEA Souza MD 2015-03-24 09:18:00 2015-03-24 15:40:00 Outpatient Isabelle Hand [facility] [id number] 2014-12-31 10:43:00 2014-12-31 10:43:00 Outpatient MD Martin De Jesus MD [id number] Castillo Souza MD 2014-12-12 10:00:00 2014-12-12 10:00:00 Outpatient MD Martin De Jesus MD [id number] Castillo Souza MD 2014-06-13 09:15:00 2014-06-13 09:15:00 Outpatient MD Martin De Jesus MD [id number] Castillo Souza MD 2014-01-03 14:04:05 2014-01-03 14:04:04 Outpatient MHIE MHIE [id number] 2013-12-12 10:30:00 2013-12-12 10:30:00 Outpatient MD Martin De Jesus MD [id number] Castillo Souza MD 2013-11-08 08:32:06 2013-11-08 08:32:05 Outpatient MHIE MHIE [id number] 2013-11-06 15:34:17 2013-11-06 15:34:17 Outpatient MHIE MHIE [id number] 2013-10-25 09:32:03 2013-10-25 09:32:03 Outpatient MHIE MHIE [id number] 2013-10-09 14:37:29 2013-10-09 14:37:28 Outpatient MHIE MHIE [id number] 2013-08-16 09:31:38 2013-08-16 09:31:37 Outpatient MHIE MHIE [id number] 2013-08-09 14:33:17 2013-08-09 14:33:17 Outpatient MHIE MHIE [id number] 2013-07-12 13:01:33 2013-07-12 13:01:33 Outpatient MHIE MHIE [id number] 2013-06-18 11:04:20 2013-06-18 11:04:19 Outpatient MHIE MHIE [id number] 2013-06-04 10:02:03 2013-06-04 10:02:02 Outpatient MHIE MHIE [id number] 2013-05-29 10:32:01 2013-05-29 10:32:01 Outpatient MHIE MHIE [id number] Results Test Description Test Time Test Comments Results Result Comments Source GLUCOSE BEDSIDE TESTING 2020-04-18 11:05:00 Test Item GLUCOSE BEDSIDE TESTING (test code = GLUBED) 120 MG/DL 60-99 H BASIC METABOLIC [id number] 07:32:00* Test Item Value Reference Range Interpretation Comments SODIUM (test code = NA) 137 MMOL/L 137-145 N POTASSIUM (test code = K) 3.3 MMOL/L 3.5-5.1 L CHLORIDE (test code = CL) 104 MMOL/L 98-107 N CARBON DIOXIDE (test code = CO2) 26 MMOL/L 22-30 N ANION GAP (test code = GAP) 10 MMOL/L 14-24 L GLUCOSE (test code = GLU) 92 MG/DL 74-106 N BLOOD UREA NITROGEN (test code = BUN) 42 MG/DL 7-17 H GLOMERULAR FILTRATION RATE (test code = GFR) 7 Reporting units: ml/min/1.73 m2 (Modified MDRD Formula)Reference Range: > or = 60 ml/min/1.73 m2 CREATININE (test code = CREAT) 6.00 MG/DL 0.52-1.04 H CALCIUM (test code = CA) 8.9 MG/DL 8.4-10.2 N CBC W/AUTO [id number] 07:29:00* Test Item Value Reference Range Interpretation Comments WHITE BLOOD CELL (test code = WBC) 6.0 K/MM3 3.8-9.8 N RED BLOOD CELL (test code = RBC) 3.00 M/MM3 3.58-4.97 L HEMOGLOBIN (test code = HGB) 8.8 G/DL 11.2-14.9 L HEMATOCRIT (test code = HCT) 28.6 % 33.2-43.5 L MEAN CELL VOLUME (test code = MCV) 95 fL 80.7-99.1 N MEAN CELL HGB (test code = MCH) 29.3 pg 27.0-34.1 N MEAN CELL HGB CONCETRATION (test code = MCHC) 30.8 % 32.2-35. 7 L RED CELL DISTRIBUTION WIDTH (test code = RDW) 13.8 % 12.1-15. 2 N PLATELET COUNT (test code = PLT) 103 K/MM3 129-368 L MEAN PLATELET VOLUME (test code = MPV) 11.9 fl 7.4-10.4 H NEUTROPHIL % (test code = NT%) 60.0 % 43-75 N IMMATURE GRANULOCYTE % (test code = IG%) 0.5 % 0.0-2.0 N LYMPHOCYTE % (test code = LY%) 24.2 % 14-44 N MONOCYTE % (test code = MO%) 9.9 % 4-13 N EOSINOPHIL % (test code = EO%) 4.9 % 0-6 N BASOPHIL % (test code = BA%) 0.5 % 0-2 N NUCLEATED RBC % (test code = NRBC%) 0.0 % 0-1.0 N NEUTROPHIL # (test code = NT#) 3.57 K/mm3 2.0-7.6 N IMMATURE GRANULOCYTE # (test code = IG#) 0.03 x10 3/uL 0-0.03 N LYMPHOCYTE # (test code = LY#) 1.44 K/mm3 1.0-3.8 N MONOCYTE # (test code = MO#) 0.59 K/mm3 0.1-0.8 N EOSINOPHIL # (test code = EO#) 0.29 K/mm3 0.0-0.2 H BASOPHIL # (test code = BA#) 0.03 K/mm3 0.0-0.2 N NUCLEATED RBC # (test code = NRBC#) 0.00 K/mm3 0.0-0.1 N - MRA HEAD W/O [id number] 11:39:00 Patient Name: MIGUEL FONTENOT Unit No: [id number] EXAMS: CPT CODE: [id number] MRA HEAD W/O CONT [id number] MRA brain without contrast 04/17/2020 11:34 AM CLINICAL HISTORY: CVA, right approximately weakness, slurred speech COMPARISON: CT head 04/15/2020; MRI brain 04/16/2020. LOCATION: 9 TECHNIQUE: Three-dimensional [id number] intracranial MRA was performed, from which maximal intensity projection 3- D reconstructions of the intracranial arterial vasculatures were created. FINDINGS: The distal segments of the internal carotid arteries demonstrate normal flow signal and caliber with no incidental aneurysms. The distal vertebral arteries and basilar artery are also unremarkable. There is normal flow signal throughout the bilateral anterior, middle, and posterior cerebral arteries with no evidence of flow-limiting stenosis or incidental aneurysm. Flow signal is demonstrated to the distal branch vessels bilaterally. IMPRESSION: No major vessel occlusion, flow-limiting stenosis, or incidental aneurysms noted. at 1139 Reported and signed by: Jose Alberto Car MD CC: Krishna Elizabeth; Rodney Burrows Technologist: Stephan Bernal (RT) George (CT) (MRI) Transcrpt Date/Tm/Trnsp: 04/17/2020 (1136) [id number] Orig Print D/T: S: 04/17/2020 (7341) [facility] NAME: MIGUEL FONTENOT [address] PHYS: [place] [address] : 1935 AGE: 84 SEX: F LOC: Z.512 A PHONE #: [phone] EXAM DATE: 04/17/2020 STATUS: ADM IN FAX #: [phone] RADIOLOGY NO: PAGE 1 Signed Report GLYCOSYLATED HEMOGLOBIN [id number] 07:46:00* Test Item Value Reference Range Interpretation Comments GLYCOSYLATED HEMOGLOBIN (HA1C) (test code = GLYHGB) 5.6 % 4. 8-5.9 N Any condition that shortens erythocyte survival or decreasesmean erythrocyte age (e.g., recovery from acute blood loss,hemolytic anemia) will falsely lower HGBA1c resultsregardless of the method used. HGBA1c results from patientswith HbSS, HbCC, and HbSc must be interpreted with cautiongiven the pathological processes, including anemia,increased red cell turnover, transfusion requirements, thatadversely impact HGBA1c as a marker of long-term glycemiccontrol. Alternative forms of testing such as fructosamineshould be considered for these patients. MEAN BLOOD GLUCOSE (test code = MBG) 114 MG/DL 70-110 H BASIC METABOLIC [id number] 07:27:00* Test Item Value Reference Range Interpretation Comments SODIUM (test code = NA) 138 MMOL/L 137-145 N POTASSIUM (test code = K) 3.3 MMOL/L 3.5-5.1 L CHLORIDE (test code = CL) 104 MMOL/L 98-107 N CARBON DIOXIDE (test code = CO2) 30 MMOL/L 22-30 N ANION GAP (test code = GAP) 7 MMOL/L 14-24 L GLUCOSE (test code = GLU) 91 MG/DL 74-106 N BLOOD UREA NITROGEN (test code = BUN) 35 MG/DL 7-17 H GLOMERULAR FILTRATION RATE (test code = GFR) 7 Reporting units: ml/min/1.73 m2 (Modified MDRD Formula)Reference Range: > or = 60 ml/min/1.73 m2 CREATININE (test code = CREAT) 5.90 MG/DL 0.52-1.04 H CALCIUM (test code = CA) 9.2 MG/DL 8.4-10.2 N LIPID PROFILE (CORONARY RISK)2020-04-17 07:27:00* Test Item Value Reference Range Interpretation Comments TRIGLYCERIDES (test code = TRIG) 153 MG/DL TRIGLYCERIDES REFERENCE RANGE:Normal: <150 mg/dLBorderline High: 150-199 mg/dLHigh: 200-499 mg/dLVery High: >=500 mg/dL CHOLESTEROL (test code = CHOL) 131 MG/DL <200 HDL CHOLESTEROL (test code = HDL) 37 MG/DL 40-59 L LIPOPROTEIN LDL (test code = LDL) 55 MG/DL 0-99 N OPTIMAL.........<100 mg/dLNEAR OPTIMAL/ABOVE OPTIMAL.........100-129 mg/dL BORDERLINE HIGH.........130-159 mg/dL HIGH.........160- 189 mg/dL VERY HIGH.........>/= 190 mg/dL [id number] 07:27:00* Test Item Value Reference Range Interpretation Comments PHOSPHOROUS (test code = PHOS) 3.9 MG/DL 2.5-4.5 N [id number] 07:27:00* Test Item Value Reference Range Interpretation Comments MAGNESIUM (test code = MAG) 1.7 MG/DL 1.6-2.3 N THYROID STIMULATING [id number] 07:27:00* Test Item Value Reference Range Interpretation Comments THYROID STIMULATING HORMONE (test code = TSH) 2.090 MIU/L 0.465-4. 68 Please be aware that bias results for TSH may occur forpatient who are taking Biotin supplements. BASIC METABOLIC [id number] 06:18:00* Test Item Value Reference Range Interpretation Comments SODIUM (test code = NA) 138 MMOL/L 137-145 N POTASSIUM (test code = K) 3.3 MMOL/L 3.5-5.1 L CHLORIDE (test code = CL) 104 MMOL/L 98-107 N CARBON DIOXIDE (test code = CO2) 30 MMOL/L 22-30 N ANION GAP (test code = GAP) 7 MMOL/L 14-24 L GLUCOSE (test code = GLU) 91 MG/DL 74-106 N BLOOD UREA NITROGEN (test code = BUN) 35 MG/DL 7-17 H GLOMERULAR FILTRATION RATE (test code = GFR) 7 Reporting units: ml/min/1.73 m2 (Modified MDRD Formula)Reference Range: > or = 60 ml/min/1.73 m2 CREATININE (test code = CREAT) 5.90 MG/DL 0.52-1.04 H CALCIUM (test code = CA) 9.2 MG/DL 8.4-10.2 N LIPID PROFILE (CORONARY RISK)2020-04-17 06:18:00* Test Item Value Reference Range Interpretation Comments TRIGLYCERIDES (test code = TRIG) 153 MG/DL TRIGLYCERIDES REFERENCE RANGE:Normal: <150 mg/dLBorderline High: 150-199 mg/dLHigh: 200-499 mg/dLVery High: >=500 mg/dL CHOLESTEROL (test code = CHOL) 131 MG/DL <200 HDL CHOLESTEROL (test code = HDL) 37 MG/DL 40-59 L LIPOPROTEIN LDL (test code = LDL) 55 MG/DL 0-99 N OPTIMAL.........<100 mg/dLNEAR OPTIMAL/ABOVE OPTIMAL.........100-129 mg/dL BORDERLINE HIGH.........130-159 mg/dL HIGH.........160- 189 mg/dL VERY HIGH.........>/= 190 mg/dL [id number] 06:18:00* Test Item Value Reference Range Interpretation Comments PHOSPHOROUS (test code = PHOS) 3.9 MG/DL 2.5-4.5 N [id number] 06:18:00* Test Item Value Reference Range Interpretation Comments MAGNESIUM (test code = MAG) 1.7 MG/DL 1.6-2.3 N THYROID STIMULATING [id number] 06:18:00* Test Item Value Reference Range Interpretation Comments THYROID STIMULATING HORMONE (test code = TSH) MIU/L 0.465-4. 68 BASIC METABOLIC [id number] 06:10:00* Test Item Value Reference Range Interpretation Comments SODIUM (test code = NA) 138 MMOL/L 137-145 N POTASSIUM (test code = K) 3.3 MMOL/L 3.5-5.1 L CHLORIDE (test code = CL) 104 MMOL/L 98-107 N CARBON DIOXIDE (test code = CO2) 30 MMOL/L 22-30 N ANION GAP (test code = GAP) 7 MMOL/L 14-24 L GLUCOSE (test code = GLU) 91 MG/DL 74-106 N BLOOD UREA NITROGEN (test code = BUN) 35 MG/DL 7-17 H GLOMERULAR FILTRATION RATE (test code = GFR) 7 Reporting units: ml/min/1.73 m2 (Modified MDRD Formula)Reference Range: > or = 60 ml/min/1.73 m2 CREATININE (test code = CREAT) 5.90 MG/DL 0.52-1.04 H CALCIUM (test code = CA) 9.2 MG/DL 8.4-10.2 N LIPID PROFILE (CORONARY RISK)2020-04-17 06:10:00* Test Item Value Reference Range Interpretation Comments TRIGLYCERIDES (test code = TRIG) 153 MG/DL TRIGLYCERIDES REFERENCE RANGE:Normal: <150 mg/dLBorderline High: 150-199 mg/dLHigh: 200-499 mg/dLVery High: >=500 mg/dL CHOLESTEROL (test code = CHOL) 131 MG/DL <200 HDL CHOLESTEROL (test code = HDL) 37 MG/DL 40-59 L LIPOPROTEIN LDL (test code = LDL) MG/DL 0-99 [id number] 06:10:00* Test Item Value Reference Range Interpretation Comments PHOSPHOROUS (test code = PHOS) 3.9 MG/DL 2.5-4.5 N [id number] 06:10:00* Test Item Value Reference Range Interpretation Comments MAGNESIUM (test code = MAG) 1.7 MG/DL 1.6-2.3 N THYROID STIMULATING [id number] 06:10:00* Test Item Value Reference Range Interpretation Comments THYROID STIMULATING HORMONE (test code = TSH) MIU/L 0.465-4. 68 BASIC METABOLIC [id number] 06:04:00* Test Item Value Reference Range Interpretation Comments SODIUM (test code = NA) 138 MMOL/L 137-145 N POTASSIUM (test code = K) 3.3 MMOL/L 3.5-5.1 L CHLORIDE (test code = CL) 104 MMOL/L 98-107 N CARBON DIOXIDE (test code = CO2) MMOL/L 22-30 GLUCOSE (test code = GLU) MG/DL 74-106 BLOOD UREA NITROGEN (test code = BUN) MG/DL 7-17 GLOMERULAR FILTRATION RATE (test code = GFR) CREATININE (test code = CREAT) MG/DL 0.52-1.04 CALCIUM (test code = CA) MG/DL 8.7-9.7 LIPID PROFILE (CORONARY RISK)2020-04-17 06:04:00* Test Item Value Reference Range Interpretation Comments TRIGLYCERIDES (test code = TRIG) MG/DL CHOLESTEROL (test code = CHOL) MG/DL <200 HDL CHOLESTEROL (test code = HDL) MG/DL 40-59 LIPOPROTEIN LDL (test code = LDL) MG/DL 0-99 [id number] 06:04:00* Test Item Value Reference Range Interpretation Comments PHOSPHOROUS (test code = PHOS) MG/DL 2.5-4.5 [id number] 06:04:00* Test Item Value Reference Range Interpretation Comments MAGNESIUM (test code = MAG) MG/DL 1.6-2.3 THYROID STIMULATING [id number] 06:04:00* Test Item Value Reference Range Interpretation Comments THYROID STIMULATING HORMONE (test code = TSH) MIU/L 0.465-4. 68 BASIC METABOLIC [id number] 06:03:00* Test Item Value Reference Range Interpretation Comments SODIUM (test code = NA) MMOL/L 137-145 POTASSIUM (test code = K) MMOL/L 3.5-5.1 CHLORIDE (test code = CL) 104 MMOL/L 98-107 N CARBON DIOXIDE (test code = CO2) MMOL/L 22-30 GLUCOSE (test code = GLU) MG/DL 74-106 BLOOD UREA NITROGEN (test code = BUN) MG/DL 7-17 GLOMERULAR FILTRATION RATE (test code = GFR) CREATININE (test code = CREAT) MG/DL 0.52-1.04 CALCIUM (test code = CA) MG/DL 8.7-9.7 LIPID PROFILE (CORONARY RISK)2020-04-17 06:03:00* Test Item Value Reference Range Interpretation Comments TRIGLYCERIDES (test code = TRIG) MG/DL CHOLESTEROL (test code = CHOL) MG/DL <200 HDL CHOLESTEROL (test code = HDL) MG/DL 40-59 LIPOPROTEIN LDL (test code = LDL) MG/DL 0-99 [id number] 06:03:00* Test Item Value Reference Range Interpretation Comments PHOSPHOROUS (test code = PHOS) MG/DL 2.5-4.5 [id number] 06:03:00* Test Item Value Reference Range Interpretation Comments MAGNESIUM (test code = MAG) MG/DL 1.6-2.3 THYROID STIMULATING [id number] 06:03:00* Test Item Value Reference Range Interpretation Comments THYROID STIMULATING HORMONE (test code = TSH) MIU/L 0.465-4. 68 CBC W/AUTO [id number] 05:50:00* Test Item Value Reference Range Interpretation Comments WHITE BLOOD CELL (test code = WBC) 5.6 K/MM3 3.8-9.8 N RED BLOOD CELL (test code = RBC) 2.93 M/MM3 3.58-4.97 L HEMOGLOBIN (test code = HGB) 8.6 G/DL 11.2-14.9 L HEMATOCRIT (test code = HCT) 27.7 % 33.2-43.5 L MEAN CELL VOLUME (test code = MCV) 95 fL 80.7-99.1 N MEAN CELL HGB (test code = MCH) 29.4 pg 27.0-34.1 N MEAN CELL HGB CONCETRATION (test code = MCHC) 31.0 % 32.2-35. 7 L RED CELL DISTRIBUTION WIDTH (test code = RDW) 13.5 % 12.1-15. 2 N PLATELET COUNT (test code = PLT) 98 K/MM3 129-368 L MEAN PLATELET VOLUME (test code = MPV) 11.7 fl 7.4-10.4 H NEUTROPHIL % (test code = NT%) 56.6 % 43-75 N IMMATURE GRANULOCYTE % (test code = IG%) 0.7 % 0.0-2.0 N LYMPHOCYTE % (test code = LY%) 25.7 % 14-44 N MONOCYTE % (test code = MO%) 11.5 % 4-13 N EOSINOPHIL % (test code = EO%) 5.1 % 0-6 N BASOPHIL % (test code = BA%) 0.4 % 0-2 N NUCLEATED RBC % (test code = NRBC%) 0.0 % 0-1.0 N NEUTROPHIL # (test code = NT#) 3.19 K/mm3 2.0-7.6 N IMMATURE GRANULOCYTE # (test code = IG#) 0.04 x10 3/uL 0-0.03 H LYMPHOCYTE # (test code = LY#) 1.45 K/mm3 1.0-3.8 N MONOCYTE # (test code = MO#) 0.65 K/mm3 0.1-0.8 N EOSINOPHIL # (test code = EO#) 0.29 K/mm3 0.0-0.2 H BASOPHIL # (test code = BA#) 0.02 K/mm3 0.0-0.2 N NUCLEATED RBC # (test code = NRBC#) 0.00 K/mm3 0.0-0.1 N THYROID STIMULATING [id number] 22:16:00* Test Item Value Reference Range Interpretation Comments THYROID STIMULATING HORMONE (test code = TSH) 1.940 MIU/L 0.465-4. 68 N Please be aware that bias results for TSH may occur forpatient who are taking Biotin supplements. T4 [id number] 21:57:00* Test Item Value Reference Range Interpretation Comments T4 FREE (test code = T4F) 1.2 NG/DL 0.78-2.19 N - MRI BRAIN W/O [id number] 08:54:00 Patient Name: MIGUEL FONTENOT Unit No: [id number] EXAMS: CPT CODE: [id number] MRI BRAIN W/O CONTRAST [id number] Dictation location: U19. MRI BRAIN WITHOUT CONTRAST HISTORY: RUE weakness, slurred speech TECHNIQUE: Multiplanar and multiple pulse sequences were obtained throughout the brain without contrast. COMPARISON: CT head 04/15/20 and MRI brain 06/15/13 FINDINGS: Diffusion weighted imaging shows a small area of increased DWI signal along the left frontal lobe without corresponding decreased ADC to suggest a more chronic area of infarct. No other areas of increased DWI signal to indicate an acute infarct. Adjacent to this area of abnormal signal is a probable extra- axial lesion measuring 11 x 4 x 8 mm. Moderate generalized atrophy. Mild T2 and FLAIR signal hyperintensities in noted within the white matter. No hemorrhage, hydrocephalus, midline shift or extra-axial fluid collection. Minimal thickening of the ethmoid sinuses. [place] of both globes are absent. IMPRESSION: No evidence of acute ischemia. Small 11 mm extra- axial lesion along the left frontal bone noted adjacent to the area of probable chronic infarct. This could relate to a meningioma, not definitely present on prior MRI. Recommend further assessment with an MRI brain without and with contrast. at 0854 Reported and signed by: Chalino Valadez MD CC: Stalin Pollard MD Technologist: Stephan Bernal (RT) George (CT) (MRI) Transcrpt Date/Tm/Trnsp: 04/16/2020 (0854) [id number] Orig Print D/T: S: 04/16/2020 (0857) [facility] NAME: MIGUEL FONTENOT [address] [place] [address] PHYS: [email or web address].[place]ear [place] [address] : 1935 AGE: 84 [id number] LOC: Z.512 A PHONE #: [phone] EXAM DATE: 03/29 STATUS: ADM IN FAX #: [phone] RADIOLOGY NO: PAGE 1 Signed Report COVID 19 Asymptomatic IH [id number] 20:31:00* Test Item Value Reference Range Interpretation Comments COVID 19 Asymptomatic IH AG (test code = COVNONPUIAG) NEGATIVE Negative "Negative results from patients with symptom onset beyondfive days, should be treated as presumptive, andconfirmation with a molecular assay, if necessary forpatient management may be performed. Negative results do notrule out COVID-19 and should not be used as the sole basisfor treatment or patient management decisions, includinginfection control decisions. Negative results should beconsidered in the context of a patients recent exposures,history, and the presence of clinical signs and symptomsconsistent with COVID-19.This test detects both viable andnon-viable SARS-CoV and SARS CoV-2.Test performance dependson the amount of virus (antigen) in the sample." BASIC METABOLIC [id number] 13:48:00* Test Item Value Reference Range Interpretation Comments SODIUM (test code = NA) 140 mmol/L 136-145 N POTASSIUM (test code = K) 2.9 mmol/L 3.5-5.1 L Re sults called to DR. JOHNSON by NATHANB 04/15/20 1347Critical results verified and read back by Nurse? Y CHLORIDE (test code = CL) 101.0 mmol/L 98-107 N CARBON DIOXIDE (test code = CO2) 29.0 mmol/L 21-32 N ANION GAP (test code = GAP) 12.9 10-20 N GLUCOSE (test code = GLU) 150 mg/dL 74-106 H BLOOD UREA NITROGEN (test code = BUN) 30 mg/dL 7-18 H GLOMERULAR FILTRATION RATE (test code = GFR) 6 mL/min >=60 Estimated GFR by using Modified MDRD formula.Chronic kidney disease is defined as either kidney damageor GFR <60 mL/min/1.73 m2 for >3 months. CREATININE (test code = CREAT) 6.50 mg/dL 0.55-1.02 H Note change in reference range due to change in reagent. BUN/CREATININE RATIO (test code = BUN/CREA) 4.6 10-20 L CALCIUM (test code = CA) 10.0 mg/dL 8.5-10.1 N [id number] 13:48:00* Test Item Value Reference Range Interpretation Comments TROPONIN-I (test code = TROPI) 0.026 ng/mL 0-0.045 N - XR CHEST 1 [id number] 13:29:00 FAX: Claribel Gibson [phone] [place]: St: [facility] FAX: Rodney Hernandez MD [phone] Name: FONTENOTMIGUEL [facility] : 1935 Age/S: 84/F [address] Unit #: [id number] Loc: [place], [place] [address] Phys: Claribel Johnson MD Acct: [id number] Dis Date: Status: REG ER PHONE #: [phone] Exam Date: 04/15/2020 1312 FAX #: [phone] Reason: CODE STROKE EXAMS: CPT CODE: [id number] XR CHEST 1 V 13737 HISTORY: Stroke. COMPARISON: June 14, 2009. Location: [facility]. No acute infiltrates, effusion or congestion is noted. Hyperinflation. The cardiac and mediastinal silhouette are within normal limits. IMPRESSION: No acute infiltrates, effusion or congestion. at 132 Reported and signed by: Thom Cagle M.D. CC: Claribel Johnson MD; Rodney Rosado Technologist: RT Jaleel(George) Trnscrd Date/Time/By: 04/15/2020 (1558) : By: [email or web address] Orig Print D/T: S: 04/15/2020 (9400) PAGE 1 Signed Report CBC W/AUTO [id number] 13:19:00* Test Item Value Reference Range Interpretation Comments WHITE BLOOD CELL (test code = WBC) 5.6 K/mm3 4.5-12.5 N RED BLOOD CELL (test code = RBC) 3.64 mill/mm3 3.7-5.2 L HEMOGLOBIN (test code = HGB) 10.7 gram/dL 11.5-15.5 L HEMATOCRIT (test code = HCT) 33.3 % 36.0-46.0 L MEAN CELL VOLUME (test code = MCV) 91.5 fL 80-98 N MEAN CELL HGB (test code = MCH) 29.4 picogram 27.0-33.0 N MEAN CELL HGB CONCETRATION (test code = MCHC) 32.1 gram/dL 33.0-36. 0 L RED CELL DISTRIBUTION WIDTH (test code = RDW) 13.4 % 11.6-16. 2 N RED CELL DISTRIBUTION WIDTH SD (test code = RDW-SD) 45.2 fL 37 .0-51.0 N PLATELET COUNT (test code = PLT) 122 K/mm3 150-450 L MEAN PLATELET VOLUME (test code = MPV) 11.6 fL 6.7-11.0 H NEUTROPHIL % (test code = NT%) 65.2 % 39.0-69.0 N IMMATURE GRANULOCYTE % (test code = IG%) 0.5 % 0.0-5.0 N LYMPHOCYTE % (test code = LY%) 20.7 % 25.0-55.0 L MONOCYTE % (test code = MO%) 9.5 % 0.0-10.0 N EOSINOPHIL % (test code = EO%) 3.4 % 0.0-5.0 N BASOPHIL % (test code = BA%) 0.7 % 0.0-1.0 N NUCLEATED RBC % (test code = NRBC%) 0.0 % 0-0 N NEUTROPHIL # (test code = NT#) 3.62 K/mm3 1.8-7.7 N IMMATURE GRANULOCYTE # (test code = IG#) 0.03 x10 3/uL 0-0.03 N LYMPHOCYTE # (test code = LY#) 1.15 K/mm3 1.0-5.0 N MONOCYTE # (test code = MO#) 0.53 K/mm3 0-0.8 N EOSINOPHIL # (test code = EO#) 0.19 K/mm3 0.0-0.5 N BASOPHIL # (test code = BA#) 0.04 K/mm3 0.0-0.2 N NUCLEATED RBC # (test code = NRBC#) 0.00 K/mm3 0.0-0.1 N PROTHROMBIN [id number] 13:10:00* Test Item Value Reference Range Interpretation Comments PROTHROMBIN TIME PATIENT (test code = PTP) 12.0 seconds 9.0-14.0 N INTERNATIONAL NORMAL RATIO (test code = INR) 1.0 0.8-1.2 N The therapeutic range for oral anticoagulant therapy formost indications is an international normalized ratio (INR)of between 2.0 and 3.0. The recommended therapeutic INRrange for various clinical situations is listed below: Clinical Situation INR range Pulmonary e mbolism treatment (2.0-3.0)Venous thrombosis treatmentVenous thrombosis prophylaxis (high risk surgery)Prevention of systemic embolism from: Acute myocardial infarction Valvular heart disease Atrial fibrillation Mechanical prosthetic heart valves (2.5-3.5) IS PATIENT ON ANTICOAGULANTS? NTHROMBOPLASTIN TIME [id number] 13:10:00* Test Item Value Reference Range Interpretation Comments THROMBOPLASTIN TIME PARTIAL (test code = PTT) 26.5 seconds 23.0-37. 0 N IS PATIENT ON ANTICOAGULANTS? N- CT HEAD/BRAIN W/O [id number] 13:03:00 Name: MIGUEL FONTENOT [facility] : 1935 Age/S: 84 / F [address] [facility] Unit #: [id number] Loc: [place] [address] Phys: Raheem Johnson MD Acct: [id number] Di s Date: Status: PRE ER PHONE #: [phone] Exam Date: 04/15/2020 7620 FAX #: Reason: difficulty with speech, right arm weakneess EXAMS: CPT CODE: [id number] CT HEAD/BRAIN W/O CONT 68778 HISTORY: Difficulty with speech and right arm weakness. COMPARISON: MRI brain from June 15, 2013. Location: [facility]. CT brain without contrast: Automated exposure control. No acute intracranial bleeds or extra- axial collections are noted. No acute territorial vascular infarction is n oted. The sulci, gyri, ventricles and subarachnoid spaces and the basilar cisterns are normal for patient's age. No herniation or hydrocepha mayra or midline shift is noted. Mild periventricular ischemic gliosis is noted. Age-appropriate atrophy is noted as well. Portions of the visualized paranasal sinuses are normal. No obvio us bony calvarial defect is noted. IMPRESSION: No acute intracranial bleeds or extra-axial collections. No a cute territorial vascular infarction. No herniation or hydroce phalus or midline shift. 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 These findings were discussed with Dr. Johnson at 1:03 PM. FOR INTERNAL CODING PURPOSES O NLY RESULT CODE: CVR Antonia ctronically Signed by José Cagle on 04/15/2020 at 1303 Reported and signed by: Thom Cagle M.D. PAGE 1 Signed Report (CONTINUED) Name: CESAR FONTENOTCHAZ PURVIS ZZIJOHANNY [facility] : 1935 Age/S: 84 / F [address] [facility] Unit #: [id number] [place]: [place] [address] Phys: Claribel Johnson MD Acct: [id number] Dis Date: Status: PRE ER PHONE #: [phone] Exam Date: 1305 FAX #: [phone] Reason: difficulty w ith speech, right arm weakneess EXAMS: CPT CODE: [id number] CT HEAD/BRAIN W/O CONT 14127 <Continued> CC: Claribel Johnson MD; Rodney Rosado Technologist:Eulogio Staley RT(R),(MR),(CT) CTDI: DLP: Trnscb Date/Time: 04/15/2020 (6393) t.SDR.TH4 Orig Print D/T: S: 04/15/2020 (9165) PAGE 2 Signed Report Novel Coronavirus 02:06:00* Test Item Value Reference Range Interpretation Comments Novel Coronavirus 2019 Inhouse (test code = [id number]) Negative Negative Positive results are indicative of the presence eaYAZO-YzH-8 RNA, clinical correlation with patient historyand other diagnostic information is necessary to determinepatient infection status. Positive results do not rule outbacterial infection or co-infection with other viruses. Negative results do not preclude SARS-CoV-2 infection andshould not be used as the sole basis for patient managementdecisions. Negative results must be combined with otherclinical observations, patient history, and epidemiologicalinformation. Detection of SARS-CoV-2 RNA may be affected bysample collection methods, storage conditions, and/or stageof infection. Viral RNA mutations, vaccinations, antiviraltherapeutics, antibiotics, chemotherapeutic orimmunosuppressant drugs have not been evaluated for effectson detection. Results are for the identification of SARS-CoV-2 RNA usingthe Black M2000 System under the FDA Emergency UseAuthorization. The testing is performed by personneltrained in the procedures for the Black M2000 moleculardiagnostic SARS-CoV-2 assay in vitro. Novel Coronavirus [id number] 02:05:00* Test Item Value Reference Range Interpretation Comments Novel Coronavirus 2019 Inhouse (test code = [id number]) Negative Negative Positive results are indicative of the presence yqPMAL-WxW-0 RNA, clinical correlation with patient historyand other diagnostic information is necessary to determinepatient infection status. Positive results do not rule outbacterial infection or co-infection with other viruses. Negative results do not preclude SARS-CoV-2 infection andshould not be used as the sole basis for patient managementdecisions. Negative results must be combined with otherclinical observations, patient history, and epidemiologicalinformation. Detection of SARS-CoV-2 RNA may be affected bysample collection methods, storage conditions, and/or stageof infection. Viral RNA mutations, vaccinations, antiviraltherapeutics, antibiotics, chemotherapeutic orimmunosuppressant drugs have not been evaluated for effectson detection. Results are for the identification of SARS-CoV-2 RNA usingthe Black M2000 System under the FDA Emergency UseAuthorization. The testing is performed by personneltrained in the procedures for the Black M2000 moleculardiagnostic SARS-CoV-2 assay in vitro. CBC W/AUTO [id number] 14:34:00* Test Item Value Reference Range Interpretation Comments WHITE BLOOD CELL (test code = WBC) 6.8 K/mm3 4.5-12.5 N RED BLOOD CELL (test code = RBC) 3.71 mill/mm3 3.7-5.2 N HEMOGLOBIN (test code = HGB) 11.0 gram/dL 11.5-15.5 L HEMATOCRIT (test code = HCT) 34.4 % 36.0-46.0 L MEAN CELL VOLUME (test code = MCV) 92.7 fL 80-98 N MEAN CELL HGB (test code = MCH) 29.6 picogram 27.0-33.0 N MEAN CELL HGB CONCETRATION (test code = MCHC) 32.0 gram/dL 33.0-36. 0 L RED CELL DISTRIBUTION WIDTH (test code = RDW) 13.7 % 11.6-16. 2 N RED CELL DISTRIBUTION WIDTH SD (test code = RDW-SD) 47.0 fL 37 .0-51.0 N PLATELET COUNT (test code = PLT) 121 K/mm3 150-450 L MEAN PLATELET VOLUME (test code = MPV) 12.2 fL 6.7-11.0 H NEUTROPHIL % (test code = NT%) 67.9 % 39.0-69.0 N IMMATURE GRANULOCYTE % (test code = IG%) 0.3 % 0.0-5.0 N LYMPHOCYTE % (test code = LY%) 19.6 % 25.0-55.0 L MONOCYTE % (test code = MO%) 8.0 % 0.0-10.0 N EOSINOPHIL % (test code = EO%) 3.6 % 0.0-5.0 N BASOPHIL % (test code = BA%) 0.6 % 0.0-1.0 N NUCLEATED RBC % (test code = NRBC%) 0.0 % 0-0 N NEUTROPHIL # (test code = NT#) 4.59 K/mm3 1.8-7.7 N IMMATURE GRANULOCYTE # (test code = IG#) 0.02 x10 3/uL 0-0.03 N LYMPHOCYTE # (test code = LY#) 1.32 K/mm3 1.0-5.0 N MONOCYTE # (test code = MO#) 0.54 K/mm3 0-0.8 N EOSINOPHIL # (test code = EO#) 0.24 K/mm3 0.0-0.5 N BASOPHIL # (test code = BA#) 0.04 K/mm3 0.0-0.2 N NUCLEATED RBC # (test code = NRBC#) 0.00 K/mm3 0.0-0.1 N BASIC METABOLIC [id number] 12:55:00* Test Item Value Reference Range Interpretation Comments SODIUM (test code = NA) 140 mmol/L 136-145 N POTASSIUM (test code = K) 3.3 mmol/L 3.5-5.1 L CHLORIDE (test code = CL) 105.0 mmol/L 98-107 N CARBON DIOXIDE (test code = CO2) 27.0 mmol/L 21-32 N ANION GAP (test code = GAP) 11.3 10-20 N GLUCOSE (test code = GLU) 118 mg/dL 74-106 H BLOOD UREA NITROGEN (test code = BUN) 37 mg/dL 7-18 H GLOMERULAR FILTRATION RATE (test code = GFR) 6 mL/min >=60 Estimated GFR by using Modified MDRD formula.Chronic kidney disease is defined as either kidney damageor GFR <60 mL/min/1.73 m2 for >3 months. CREATININE (test code = CREAT) 6.60 mg/dL 0.55-1.02 H Note change in reference range due to change in reagent. BUN/CREATININE RATIO (test code = BUN/CREA) 5.6 10-20 L CALCIUM (test code = CA) 9.7 mg/dL 8.5-10.1 N BASIC METABOLIC [id number] 12:49:00* Test Item Value Reference Range Interpretation Comments SODIUM (test code = NA) 140 mmol/L 136-145 N POTASSIUM (test code = K) 3.3 mmol/L 3.5-5.1 L CHLORIDE (test code = CL) 105.0 mmol/L 98-107 N CARBON DIOXIDE (test code = CO2) mmol/L 21-32 ANION GAP (test code = GAP) 10-20 GLUCOSE (test code = GLU) mg/dL 74-106 BLOOD UREA NITROGEN (test code = BUN) mg/dL 7-18 GLOMERULAR FILTRATION RATE (test code = GFR) mL/min >=60 CREATININE (test code = CREAT) mg/dL 0.55-1.02 BUN/CREATININE RATIO (test code = BUN/CREA) 10-20 CALCIUM (test code = CA) mg/dL 8.5-10.1 Blood leukocytes automated count (number/volume)2020-01-31 05:10:00* Test Item Value Reference Range Interpretation Comments White Blood Count (test code = 6690-2) 5.66 4.8-10.8 [facility] count (number/volume)2020-01-31 05:10:00* Test Item Value Reference Range Interpretation Comments Red Blood Count (test code = 789-8) 5.20 3.6-5.1 [facility] measurement (moles/volume)2020-01-31 05:10:00* Test Item Value Reference Range Interpretation Comments Hemoglobin (test code = 14087-3) 15.6 12.0-16.0 [facility] CenterAutomated blood hematocrit (volume fraction)2020-01-31 05:10:00* Test Item Value Reference Range Interpretation Comments Hematocrit (test code = 4544-3) 48.6 34.2-44.1 [facility] CenterAutomated erythrocyte mean corpuscular ilbagj0437-74-95 05:10:00* Test Item Value Reference Range Interpretation Comments Mean Corpuscular Volume (test code = 787-2) 93.5 81-99 [facility] mean corpuscular hemoglobin (mass per erythrocyte)2020-01-31 05:10:00* Test Item Value Reference Range Interpretation Comments Mean Corpuscular Hemoglobin (test code = 785-6) 30.0 28-32 [facility] CenterAutomated erythrocyte mean corpuscular hemoglobin concentration measurement (mass/volume)2020-01-31 05:10:00* Test Item Value Reference Range Interpretation Comments Mean Corpuscular Hemoglobin Concent (test code = 786-4) 32.1 31-35 [facility] CenterRDW PwwXq-Qud5848-80-04 05:10:00* Test Item Value Reference Range Interpretation Comments Red Cell Distribution Width (test code = 62547-8) 13.6 11.7 -14.4 [facility] CenterAutomated blood platelet count (count/volume)2020-01-31 05:10:00* Test Item Value Reference Range Interpretation Comments Platelet Count (test code = 777-3) 90 140-360 [facility] blood segmented neutrophil count as percentage of total qofemtxcot2614-57-47 05:10:00* Test Item Value Reference Range Interpretation Comments Neutrophils (%) (Auto) (test code = 68883-6) 57.8 38.7-80.0 [facility] CenterAutomated blood lymphocyte count as percentage ot total snpewzwpza2720-84-88 05:10:00* Test Item Value Reference Range Interpretation Comments Lymphocytes (%) (Auto) (test code = 736-9) 23.1 18.0-39.1 [facility] CenterAutom[facility] blood monocyte count as percentage of total tcqmkwwisw2527-37-86 05:10:00* Test Item Value Reference Range Interpretation Comments Monocytes (%) (Auto) (test code = 5905-5) 12.9 4.4-11.3 [facility] CenterAutomated blood eosinophil count as percentage of total vfdledfidj1446-85-05 05:10:00* Test Item Value Reference Range Interpretation Comments Eosinophils (%) (Auto) (test code = 713-8) 5.1 0.0-6.0 [facility] basophil count as percentage of total yedmruywve4384-24-35 05:10:00* Test Item Value Reference Range Interpretation Comments Basophils (%) (Auto) (test code = 706-2) 0.9 0.0-1.0 [facility] CenterFluoroscopic procedure less than one hour gqfmbxnm4190-61-93 05:10:00* Test Item Value Reference Range Interpretation Comments IM GRANULOCYTES % (test code = IM GRANULOCYTES %) 0.2 0.0- 1.0 [facility] CenterAutom[facility] blood neutrophil count 2020-01-31 05:10:00* Test Item Value Reference Range Interpretation Comments Neutrophils # (Auto) (test code = 751-8) 3.3 2.1-6.9 [facility] Center[facility] lymphocytes count (number/volume) 2020-01-31 05:10:00* Test Item Value Reference Range Interpretation Comments Lymphocytes # (Auto) (test code = 00578-5) 1.3 1.0-3.2 [facility] CenterBlood monocytes automated count (number/volume)2020-01-31 05:10:00* Test Item Value Reference Range Interpretation Comments Monocytes # (Auto) (test code = 742-7) 0.7 0.2-0.8 [facility] CenterAutomated blood eosinophil count 2020-01-31 05:10:00* Test Item Value Reference Range Interpretation Comments Eosinophils # (Auto) (test code = 711-2) 0.3 0.0-0.4 [facility] CenterAutomated blood basophil count (count/volume)2020-01-31 05:10:00* Test Item Value Reference Range Interpretation Comments Basophils # (Auto) (test code = 704-7) 0.1 0.0-0.1 [facility] CenterFluoroscopic procedure less than one hour pgoszhcx7902-28-70 05:10:00* Test Item Value Reference Range Interpretation Comments Absolute Immature Granulocyte (auto (karo t code = Absolute Immature Granulocyte (auto) 0.01 0-0.1 [facility] CenterProthrombin time (PT) in platelet poor plasma by coagulation qxnia8516-52-24 05:20:00* Test Item Value Reference Range Interpretation Comments Prothrombin Time (test code = 5902-2) 13.5 11.9-14.5 [facility] CenterINR in Platelet poor plasma by Coagulation brlze4455-16-38 05:20:00* Test Item Value Reference Range Interpretation Comments Prothromb Time International Ratio (test code = 6301-6) 0.97 Oral Anticoagulant Therapy INR Values:1. Low Intensity Therapy 1.5 - 2.02 . Moderate Intensity Therapy 2.0 - 3.03. High Intensity Therapy(1) 2.5 - 3. 54. High Intensity Therapy(2) 3.0 - 4.05. Panic Value INR > 5.0 [facility] CenterMRA HEAD [id number] 17:44:00 [facility] [address] [place] [address] Patient Name: MIGUEL FONTENOT MR #: [id number] : 1935 Age/Sex: 84/F Req #: [id number] Adm Physician: CHRISTEL HATHAWAY MD Ordered by: HIRAM APPLE MD Report #: [id number] Location: MED/SURG2 Room/Bed: [facility] Procedure: [id number] MRI/MRA H EAD WO Exam Date: Exam Time: REPORT STATUS: Signed MRA HEAD WO HISTORY: Stroke COMPARISON: MRA of the neck 01/29/2020, MRI of the brain 01/28/2020 BRANDON HNIQUE: 3D intracranial xbmh-xv-goceap MRA images were obtained without contr ast. Maximum intensity projection images and coronal/sagittal reformatted imag es were created. FINDINGS: Carotid arteries: No flow abnormaliti es in the intracranial internal carotid arteries. Normal A1 and M1 segments. Vertebrobasilar Circulation: Right vertebral artery: No flow abnormalities. Left vertebral artery: No flow abnormalities. Basilar artery: No flow ab normalities. Posterior cerebral arteries: No flow abnormalities. Normal Variants: ACom: Not clearly visualized. PComs: Not clearly visualized. Ve rtebral arteries: Co-dominant. IMPRESSION: No intracranial MRA abnormalit ies. Signed by: Dr. Christian Dasilva M.D. on 01/29/2020 6:49 PM Dictate d By: CHRISTIAN DASILVA MD 48 COPY TO: HIRAM APPLE MD MRA NECK [id number] 15:08:00 [place] [address] Patient Name: MIGUEL FONTENOT MR #: [id number] : 1935 Age/Sex: 84/F Req #: [id number] Adm Physician: CHRISTEL HATHAWAY MD Ordered by: HIRAM APPLE MD Report #: [id number] Location: MED/SURG2 Room/Bed: [facility] Procedure: [id number] MRI/MRA N ABBE WO Exam Date: Exam Time: REPORT STATUS: Signed Examination: MRA NECK WO CONTRA ST History: Stroke; TIA Comparison studies: None Technique: 2-D time-of -flight MR angiogram of the cervical circulation was obtained. MIP images of t he arteries were isolated into the right and left cervical circulations. Degree of stenosis at the carotid bulbs, if present, will be calculated using NASCET criteria where the smallest diameter at the location of stenosis is co mpared to the diameter of the more distal non-diseased vessel lumen. Findin gs: Cervical MRA Aortic arch: Normal 3 great vessel origin. Patent. Internal carotid arteries: No flow abnormalities at the origins of the common carotid arteries, the cervical carotid bifurcations or in the cervical segments. Vertebral arteries: No flow abnormalities at the origins of th e vertebral arteries or through its cervical segments (V1-V3). IMPRESSION : No cervical arterial stenosis or occlusion or vascular malformation. Signed by: Dr. Yumiko Posada M.D. on 01/29/2020 3:10 PM Dictated By: YUMIKO DODSON MD 151 Transcribed By: YAQUELIN on 01/29/20 1510 COPY TO: HIRAM MAHONEY MD Serum or plasma sodium measurement (moles/volume) 2020-01-29 04:45:00* Test Item Value Reference Range Interpretation Comments Sodium Level (test code = 2951-2) 142 136-145 [facility] plasma potassium measurement (moles/volume)2020-01-29 04:45:00* Test Item Value Reference Range Interpretation Comments Potassium Level (test code = 2823-3) 3.8 3.5-5.1 [facility] Hospitalerum or plasma chloride measurement (moles/volume)2020-01-29 04:45:00* Test Item Value Reference Range Interpretation Comments Chloride Level (test code = 2075-0) 111 98-107 [facility] Hospitalerum or plasma carbon dioxide, total measurement (moles/volume)2020-01-29 04:45:00* Test Item Value Reference Range Interpretation Comments Carbon Dioxide Level (test code = 2028-9) 19 22-29 [facility] Hospitalerum or plasma anion bca2446-75-36 04:45:00* Test Item Value Reference Range Interpretation Comments Anion Gap (test code = 56211-4) 15.8 8-16 [facility] Hospitalerum or plasma urea nitrogen measurement (mass/volume)2020-01-29 04:45:00* Test Item Value Reference Range Interpretation Comments Blood Urea Nitrogen (test code = 3094-0) 37 7-26 [facility] Hospitalerum or plasma creatinine measurement (mass/volume)2020-01-29 04:45:00* Test Item Value Reference Range Interpretation Comments Creatinine (test code = 2160-0) 6.57 0.57-1.11 [facility] Hospitalerum or plasma urea nitrogen/creatinine mass isugn5886-34-24 04:45:00* Test Item Value Reference Range Interpretation Comments BUN/Creatinine Ratio (test code = 3097-3) 6 6-25 [facility] CenterEstimated glomerular filtration rate (GFR) qarkbaqcrdoft4244-15-79 04:45:00* Test Item Value Reference Range Interpretation Comments Estimat Glomerular Filtration Rate (test code = 140935263) 6 >60 Ranges were taken from the National Kidney Disease Education Program and the [facility] Foundation literature.Reference ranges:60 or greater: Tdzfue93-74 ( for 3 consecutive months): Chronic kidney disease 15 or less: Kidney failureUniversity Medical CenterGlucose zargpncsmjk7029-12-64 04:45:00* Test Item Value Reference Range Interpretation Comments Glucose Level (test code = YZG1557) 103 74-118 [facility] Hospitalerum or plasma calcium measurement (mass/volume)2020-01-29 04:45:00* Test Item Value Reference Range Interpretation Comments Calcium Level (test code = 89944-6) 10.1 8.4-10.2 [facility] CenterFluoroscopic procedure less than one hour eyobrbkc4268-25-76 04:45:00* Test Item Value Reference Range Interpretation Comments Hemoglobin A1c Percent (test code = Hemoglobin A1c Percent) 4.6 4.0-7.0 [facility] Hospitalerum or plasma total bilirubin measurement (mass/volume)2020-01-29 04:45:00* Test Item Value Reference Range Interpretation Comments Total Bilirubin (test code = 1975-2) 0.3 0.2-1.2 [facility] CenterFluoroscopic procedure less than one hour arejdzzn2712-04-35 04:45:00* Test Item Value Reference Range Interpretation Comments Aspartate Amino Transf (AST/SGOT) (test code = Aspartate Amino Transf (AST/SGOT)) 14 5-34 [facility] Hospitalerum or plasma alanine aminotransferase measurement (enzymatic activity/volume)2020-01-29 04:45:00* Test Item Value Reference Range Interpretation Comments Alanine Aminotransferase (ALT/SGPT) (test code = 1742-6) 12 0-55 [facility] Hospitalerum or plasma protein measurement (mass/volume)2020-01-29 04:45:00* Test Item Value Reference Range Interpretation Comments Total Protein (test code = 2885-2) 6.4 6.5-8.1 [facility] Hospitalerum or plasma albumin measurement (mass/volume)2020-01-29 04:45:00* Test Item Value Reference Range Interpretation Comments Albumin (test code = 1751-7) 2.6 3.5-5.0 [facility] CenterPlasma globulin measurement (mass/volume) 2020-01-29 04:45:00* Test Item Value Reference Range Interpretation Comments Globulin (test code = 48360-2) 3.8 2.3-3.5 [facility] Hospitalerum or plasma albumin/globulin mass wared6426-01-50 04:45:00* Test Item Value Reference Range Interpretation Comments Albumin/Globulin Ratio (test code = 1759-0) 0.7 0.8-2.0 [facility]er[facility] or plasma alkaline phosphatase measurement (enzymatic activity/volume)2020-01-29 04:45:00* Test Item Value Reference Range Interpretation Comments Alkaline Phosphatase (test code = 6768-6) 96 40-150 [facility]erum or plasma triglyceride measurement (mass/volume)2020-01-29 04:45:00* Test Item Value Reference Range Interpretation Comments Triglycerides Level (test code = 2571-8) 111 0-149 [facility]erum or plasma cholesterol measurement (mass/volume)2020-01-29 04:45:00* Test Item Value Reference Range Interpretation Comments Cholesterol Level (test code = 2093-3) 104 0-199 Less than 200 mg/dL Low Gjvn208 - 239 mg/dL Borderline Fekn245 m g/dl and greater High Risk [facility]er[facility] or plasma cholesterol in LDL measurement (mass/volume) 2020-01-29 04:45:00* Test Item Value Reference Range Interpretation Comments LDL Cholesterol (test code = 2089-1) 42 60-130 [facility]er[facility] or plasma cholesterol in HDL measurement (mass/volume)2020-01-29 04:45:00* Test Item Value Reference Range Interpretation Comments HDL Cholesterol (test code = 2085-9) 40 40-60 [facility]erum or plasma total cholesterol/cholesterol in HDL mass rneup2261-17-37 04:45:00* Test Item Value Reference Range Interpretation Comments Cholesterol/HDL Ratio (test code = 9830-1) 2.6 3.0-3.6 [facility] Hospitalerum or plasma thyrotropin measurement by detection limit <= 0.005 miu/l (units/volume)2020-01-29 04:45:00* Test Item Value Reference Range Interpretation Comments Thyroid Stimulating Hormone (TSH) (test code = 01803-3) 2.627 0.350-4.940 [facility] [id number] 17:14:00 [facility] [address] [place] [address] Patient Name: MIGUEL FONTENOT MR #: [id number] : 1935 Age/Sex: 84/F Req #: [id number] Adm Physician: KIRIT ALEXANDER MD Ordered by: ATILIO OSBORNE OPERATIONS TRAINER Report #: [id number] Location: [facility] Room/Bed: [place] [address] Procedure: [id number] MRI/MRI B RAIN WO Exam Date: Exam Time: REPORT STATUS: Signed MRI BRAIN WO HISTORY: TIA COMPARISON: Head CT 01/28/2020 and MRI of the brain 09/22/2019 TECHNIQUE: Sagittal T2, axial T2, axial T1, axial T2/FLAIR, axial gradient echo (or susceptibility weighted), coronal T2/FLAIR, and axial diffusion weighted MR i mages of the brain were obtained without contrast. Susceptibility artifacts ob scure some details. DISCUSSION: Scalp/bone marrow: Unremarkable. Bra in sulci: Prominent. Ventricles: Compensatory dilatation. Extra-axial space s: Unchanged 1.3 cm left frontal dural mass, just posterior to the left don l suture, is likely an incidental meningioma. No additional masses or fluid co llections. Parenchyma: Focal mild diffusion restriction (bright on DWI, i sointense on ADC) is seen in the left centrum semiovale. This is compatible wi th subacute ischemia. Questionable additional subcentimeter focus of mild satya ical diffusion restriction in the left subcentral gyrus may be an additional a shameka of acute or subacute ischemia. No other diffusion restricting abnorma lities are seen. Scattered T2/FLAIR hyperintense foci throughout the suprat entorial white matter and catina are likely chronic microvascular ischemic ashley es. Otherwise, no mass, or hemorrhage. Vessels: Normal flow voids in isai r arteries and veins. Sellar/Suprasellar region: No abnormalities. Cranioce rvical junction: No abnormalities. Incidental findings: Bilateral ocular lens replacement. IMPRESSION: Susceptibility artifacts obscure some details. I n spite of limitations: 1. Focal subacute ischemia in the left centrum se miovale. 2. Questionable subcentimeter focal area of cortical acute or subac alyse ischemia in the left subcentral gyrus. 3. No other acute intracranial abnormalities. Chronic findings: 1. Mild supratentorial/pontine chronic microvascular ischemic change. 2. Generalized cerebral volume loss. 3. Sma ll left frontal meningioma without mass effect. Signed by: Dr. Christian anne M.D. on 01/28/2020 5:24 PM Dictated By: CHRISTIAN DASILVA MD Electronic ally Signed By: CHRISTIAN DASILVA MD on 01/28/201723 Transcribed By: YAQUELIN on 01/28/201723 COPY TO: ATILIO OSBORNE NP Serum or plasma intact pararthyroid hormone measurement (mass/volume)2020-01-28 15:53:00* Test Item Value Reference Range Interpretation Comments Parathyroid Hormone (test code = 2731-8) 282 15-65 [facility] or plasma calcium measurement (mass/volume)2020-01-28 15:53:00* Test Item Value Reference Range Interpretation Comments Calcium (Send out) (test code = 88645-0) 10.1 8.7-10.3 [facility] CenterFluoroscopic procedure less than one hour qgtoiizi6128-54-98 15:53:00* Test Item Value Reference Range Interpretation Comments Parathyroid Hormone Interpretation (test code = Parathyroid Hormone Interpretation) Comment . Interpretation Intact PTH Calcium (pg/mL) (mg/dL)Normal 15 - 65 8.6 - 10.2Pr imary Hyperparathyroidism >65 >10.2Secondary Hyperparathyroidism >65 <10.2Non-Parathyroid Hypercalcemia <65 >10.2Hypoparathyroidism <15 < 8.6Non- Parathyroid Hypocalcemia 15 - 65 < 8.6Performed at: - [facility] [id number] Director: Winston Mcmillan MD, Phone: [phone] at: [facility] [employer] [id number] Director: Shivam Swenson MD, Phone: [phone] Medical CenterFluoroscopic procedure less than one hour mqiyangx1519-09-05 15:37:00* Test Item Value Reference Range Interpretation Comments Coronavirus (PCR) (test code = Coronavirus (PCR)) NOT DETECTED NOTD ETECTED SARS-COV-2 (COVID19), HIGHRISK, RT-PCRNegative results do not preclude SARS-CoV- 2 infection and should not be used as the sole basis for patient management deci sions. Negative results must be combined with clinical observations, patient his tory, and epidemiological information. Optimum specimen types and timing for pea k viral levels during infections caused by SARS-CoV-2 have not been determined. Collection of multiple specimens ot types of specimens may be necessary to detec t virus. Improper specimen collection and handling, sequence variability under p rimers/probes, or organism present below the limit of detection may lead to fals e negative results. Positive and negative predictive values of testing are highl y dependent on prevalance. False negative test results are more likely when prev alence is high.The expected result is negative (not detected).The SARS-CoV-2 karo t is intended for the qualitative detection of nucleic acid from SARS-CoV-2 in n asopharyngeal and oropharyngeal swab samples from patients who meet COVID-19 cli nical and or epidemiological criteria. For lower respiratory tract specimens, th e assay is submitted for authoriztion by FDA under an Emergency Use Authorizatio n (EUA). Testing methodology is real time RT-PCR. If received as separate collec tion devices, nasopharygeal and oropharyngeal specimens are combined for analysi s. Additional specimens may be split to a separate accession for analysi and rep orting as this test includes a single unit of service.Test results must be corre lated with clinical presentation and evaluated in the context of other laborator y and epidemiologic data. Test performance can be affected because the epidemiol ogy and clinical spectrum of infection caused by SARS-CoV-2 is not fully known. For example, the optimum types of specimens to collect and when during the cours e of infection these specimens are most likely to contain detectable viral RNA m ay not be known.This test has not been Food and Drug Administration (FDA) cleare d or approved and has been authorized by FDA under an Emergency Use Authorizatio n (EUA). The test is only authorized for the duration of the declaration that ci rcumstances exist justifying the authorization of emergency use of in vitro diag nostic tests for detection and/or diagnosis of SARS-CoV-2 under section 564(b) o f the Act, 21 U.S.C. section 360bbb-3(b)(1), unless the authorization is termina shira or revoked sooner. [facility] are certified under the C linical Laboratory Improvement Amendments of 1988 (CLIA), 42 U.S.C. section 263a , to perform high complexity tests.Testing performed by [facility] [address] [place], [place] [phone] Director: Dirk Lima M.D.CLIA # [id number] [facility] SINGLE (PORTABLE)2020-01-28 12:34:00 [place] [address] Patient Name: MIGUEL FONTENOT MR #: [id number] : 1935 Age/Sex: 84/F Req #: [id number] Adm Physician: Ordered by: AVA FENTON DO Report #: [id number] Location: ER Room/Bed: Procedure: [id number] DX/[facility] SINGLE (PORTABLE) Exam Date: 01/28/20 Exam Time: 1200 REPORT STATUS: Signed EXAM: CHEST SINGLE (PORTABLE) DATE: 01/28/2020 12:00 PM INDICATION: CVA COMPARISON: None FINDINGS: The trachea is midline. The lungs are symm etrically expanded without evidence for large focal consolidation, pneumothora x, or significant pleural effusion. The cardiomediastinal silhouette and pu lmonary vasculature are within normal limits. Atherosclerotic calcifications c alcifications are noted within the thoracic aorta. No acute osseous abnormalit y is identified. The surrounding soft tissues are unremarkable. IMPRES SERENITY: No acute cardiopulmonary process identified. Signed by: Dr. Neno Villalobos MD on 01/28/2020 12:35 PM Dictated By: NENO francis Signed By: NENO VILLALOBOS MD on 01/28/20 1235 Transcribed By: YAQUELIN on 1235 COPY TO: AVA FENTON DO CT BRAIN [id number] 12:31:00 [place] [address] Patient Name: MIGUEL FONTENOT MR #: [id number] : 1935 Age/Sex: 84/F Req #: [id number] Adm Physician: Ordered by: AVA FENTON DO Report #: [id number] Location: ER Room/Bed: Procedure: [id number] CT/CT BRAIN WO Exam Date: 01/28/20 Exam Time: 1200 REPORT STATUS: Signed History:Hand numb ness Comparison studies:CT head 01/27/[address] head 10/05/2019 Technique: Axial images were obtained from the skull base to the vertex. Coronal and s agittal images reconstructed from the axial data. Intravenous contrast: None Dose modulation, iterative reconstruction, and/or weight based adjustment of the mA/kV was utilized to reduce the radiation dose to as low as reasonably ac hievable. Findings: Scalp/skull: No abnormalities. Extra-axial spaces: No masses. No fluid collections. Brain sulci: Mildly prominent. Ventricles: Mild compensatory dilatation. No hydrocephalus. Parenchyma: Scattered subtle hypodensities in the supratentorial white matter are small vessel ischemic changes. Small hypodensity at the left frontal deep white ma tter with volume loss, stable. Small cortical hypodensity at the left mid fron talat gyrus with associated volume loss, stable. No masses, hemorrhage or acute cortical vascular insults. Sellar/suprasellar region: No abnormalities. C raniocervical junction: Patent foramen magnum. No Chiari one malformation. Incidental findings: Atherosclerotic calcifications in the carotid siphons . Impression: No acute abnormalities. Chronic findings: 1. Mild generalized volume loss. 2. Mild supratentorial white matter small vessel isc hemic changes. 3. Small chronic infarct at the left mid frontal gyrus and lef t frontal deep white matter, stable from previous exam. Signed by: DR Bryan Weeks M.D. on 01/28/2020 12:42 PM Dictated By: SEVERIANO JENKINS MD 1242 Transc ribed By: YAQUELIN on 01/28/20 1242 COPY TO: AVA FENTON DO Serum or plasma creatine kinase measurement (enzymatic activity/volume) 2020-01-28 11:11:00* Test Item Value Reference Range Interpretation Comments Creatine Kinase (test code = 2157-6) 42 29-168 [facility] Hospitalerum or plasma creatine kinase MB measurement (mass/volume)2020-01-28 11:11:00* Test Item Value Reference Range Interpretation Comments Creatine Kinase MB (test code = 41893-6) 1.90 0-5.0 [facility] CenterTroponin I measurement by highly sensitive enzyme jmcabjhhxyo2236-12-03 11:11:00* Test Item Value Reference Range Interpretation Comments Troponin I (test code = 36055-8) 0.317 0-0.300 [facility]CHE[facility])2020-01-27 13:39:00 [place] [address] Patient Name: MIGUEL FONTENOT MR #: [id number] : 1935 Age/Sex: 84/F Req #: [id number] Adm Physician: Ordered by: VADIM MUNOZ Report #: [id number] Location: ER Room/Bed: Procedure: [id number] DX/CHEST SINGLE (PORTABLE) Exam Date: 01/27/20 Exam Time: 124 4 REPORT STATUS: Signed EXAMINAT ION: CHEST SINGLE (PORTABLE) INDICATION: tia COMPARISON: Chest r adiograph 10/05/2019. FINDINGS: TUBES and LINES: None. LUNGS: L ungs are well inflated. Calcified granulomas in the right lung. Mild patchy le ft basilar opacity, likely atelectasis. No evidence of lobar consolidation or pulmonary edema. PLEURA: No pleural effusion or pneumothorax. HEART AND MEDIASTINUM: The cardiomediastinal silhouette is unremarkable. There are atherosclerotic calcifications within the aorta. BONES AND SOFT TISSUES: N o acute osseous lesion. Soft tissues are unremarkable. UPPER ABDOMEN: No free air under the diaphragm. IMPRESSION: Mild patchy left basilar opacity, likely atelectasis. Infection is possible in the appropriate clinical setting. Signed by: Dr. Jazmyn Andres MD on 01/27/2020 1:44 PM Dictated By: JAZMYN ANDRES MD 1344 T ranscribed By: YAQUELIN on 01/27/20 1346 COPY TO: VADIM MUNOZ CT BRAIN [id number] 13:34:00 [place] [address] Patient Name: MIGUEL FONTENOT MR #: [id number] : 1935 Age/Sex: 84/F Req #: [id number] Adm Physician: Ordered by: VADIM MUNOZ Report #: [id number] Location: ER Room/Bed: Procedure: [id number] CT/CT BRA IN WO Exam Date: 01/27/20 Exam Time: 1247 REPORT STATUS: Signed History:Weakness in right arm. Comparison studies:CT head 10/05/2019 Technique: Axial images were obtained from the skull base to the vertex. Coronal and sagittal images r econstructed from the axial data. Intravenous contrast: None Dose modulation , iterative reconstruction, and/or weight based adjustment of the mA/kV was ut ilized to reduce the radiation dose to as low as reasonably achievable. F indings: Scalp/skull: No abnormalities. Extra-axial spaces: No m asses. No fluid collections. Brain sulci: Mildly prominent. Ventricles: Mild compensatory dilatation. No hydrocephalus. Parenchyma: Subcentimete r hypodensity with associated volume loss at the right frontal deep white jo er, not seen on previous exam, secondary to chronic lacunar infarct. Other sm all hypodensities in the supratentorial white matter are small vessel ischemic changes. No masses, hemorrhage, acute or chronic cortical vascular insults. Sellar/suprasellar region: No abnormalities. Craniocervical junction: Patent foramen magnum. No Chiari one malformation. Incidental findings: Athe rosclerotic calcifications in the carotid siphons and vertebral arteries . Impression: No acute abnormalities. Chronic findings: 1. Mild gene ralized volume loss. 2. Mild supratentorial white matter small vessel ischemi c changes. 3. Chronic lacunar infarct at the left frontal centrum semiovale, not seen on previous exam. Signed by: DR Severiano Weeks M.D. on 1:44 PM Dictated By: SEVERIANO DE LA ROSA MD 1341 Transcribed By: YAQUELIN on 01/27/20 1341 COPY TO: VADIM MUNOZ Serum or plasma sodium measurement (moles/volume)2020-01-27 12:30:00* Test Item Value Reference Range Interpretation Comments Sodium Level (test code = 2951-2) 141 136-145 [facility]er[facility] or plasma potassium measurement (moles/volume)2020-01-27 12:30:00* Test Item Value Reference Range Interpretation Comments Potassium Level (test code = 2823-3) 4.3 3.5-5.1 [facility] Hospitalerum or plasma chloride measurement (moles/volume)2020-01-27 12:30:00* Test Item Value Reference Range Interpretation Comments Chloride Level (test code = 2075-0) 110 98-107 [facility] Hospitalerum or plasma carbon dioxide, total measurement (moles/volume)2020-01-27 12:30:00* Test Item Value Reference Range Interpretation Comments Carbon Dioxide Level (test code = 2028-9) 19 22-29 [facility] Hospitalerum or plasma anion vcl9956-34-54 12:30:00* Test Item Value Reference Range Interpretation Comments Anion Gap (test code = 88265-5) 16.3 8-16 [facility] Hospitalerum or plasma urea nitrogen measurement (mass/volume)2020-01-27 12:30:00* Test Item Value Reference Range Interpretation Comments Blood Urea Nitrogen (test code = 3094-0) 34 7-26 [facility] Hospitalerum or plasma creatinine measurement (mass/volume)2020-01-27 12:30:00* Test Item Value Reference Range Interpretation Comments Creatinine (test code = 2160-0) 7.08 0.57-1.11 [facility] Hospitalerum or plasma urea nitrogen/creatinine mass fwpel3439-60-88 12:30:00* Test Item Value Reference Range Interpretation Comments BUN/Creatinine Ratio (test code = 3097-3) 5 6-25 [facility] CenterEstimated glomerular filtration rate (GFR) dxcjaxwvsiteb7306-98-88 12:30:00* Test Item Value Reference Range Interpretation Comments Estimat Glomerular Filtration Rate (test code = 422225158) 6 >60 Ranges were taken from the National Kidney Disease Education Program and the [facility] literature.Reference ranges:60 or greater: Bcmrhn03-52 ( for 3 consecutive months): Chronic kidney disease 15 or less: Kidney failureUniversity Medical CenterGlucose dzmlvnxwabg2531-66-86 12:30:00* Test Item Value Reference Range Interpretation Comments Glucose Level (test code = CRQ5885) 108 74-118 [facility] Hospitalerum or plasma calcium measurement (mass/volume)2020-01-27 12:30:00* Test Item Value Reference Range Interpretation Comments Calcium Level (test code = 97857-9) 10.9 8.4-10.2 [facility] Hospitalerum or plasma magnesium measurement (mass/volume)2020-01-27 12:30:00* Test Item Value Reference Range Interpretation Comments Magnesium Level (test code = 32182-3) 1.9 1.3-2.1 [facility] Hospitalerum or plasma total bilirubin measurement (mass/volume)2020-01-27 12:30:00* Test Item Value Reference Range Interpretation Comments Total Bilirubin (test code = 1975-2) 0.3 0.2-1.2 [facility] CenterFluoroscopic procedure less than one hour kwkxryom7106-98-36 12:30:00* Test Item Value Reference Range Interpretation Comments Aspartate Amino Transf (AST/SGOT) (test code = Aspartate Amino Transf (AST/SGOT)) 14 5-34 [facility] Hospitalerum or plasma alanine aminotransferase measurement (enzymatic activity/volume)2020-01-27 12:30:00* Test Item Value Reference Range Interpretation Comments Alanine Aminotransferase (ALT/SGPT) (test code = 1742-6) 15 0-55 [facility] Hospitalerum or plasma protein measurement (mass/volume)2020-01-27 12:30:00* Test Item Value Reference Range Interpretation Comments Total Protein (test code = 2885-2) 6.7 6.5-8.1 [facility] Hospitalerum or plasma albumin measurement (mass/volume)2020-01-27 12:30:00* Test Item Value Reference Range Interpretation Comments Albumin (test code = 1751-7) 2.8 3.5-5.0 [facility] CenterPlasma globulin measurement (mass/volume) 2020-01-27 12:30:00* Test Item Value Reference Range Interpretation Comments Globulin (test code = 30395-3) 3.9 2.3-3.5 [facility] Hospitalerum or plasma albumin/globulin mass mqcfq0776-44-08 12:30:00* Test Item Value Reference Range Interpretation Comments Albumin/Globulin Ratio (test code = 1759-0) 0.7 0.8-2.0 [facility] Hospitalerum or plasma alkaline phosphatase measurement (enzymatic activity/volume)2020-01-27 12:30:00* Test Item Value Reference Range Interpretation Comments Alkaline Phosphatase (test code = 6768-6) 95 40-150 [facility] Hospitalerum or plasma creatine kinase measurement (enzymatic activity/volume)2020-01-27 12:30:00* Test Item Value Reference Range Interpretation Comments Creatine Kinase (test code = 2157-6) 36 29-168 [facility] Hospitalerum or plasma creatine kinase MB measurement (mass/volume)2020-01-27 12:30:00* Test Item Value Reference Range Interpretation Comments Creatine Kinase MB (test code = 04635-9) 1.30 0-5.0 [facility] CenterTroponin I measurement by highly sensitive enzyme xzdqcqkzimm1676-99-33 12:30:00* Test Item Value Reference Range Interpretation Comments Troponin I (test code = 27589-6) 0.496 0-0.300 [facility] Hospitalerum or plasma magnesium measurement (mass/volume)2020-01-27 12:30:00* Test Item Value Reference Range Interpretation Comments Magnesium Level (test code = 44468-7) 1.9 1.3-2.1 [facility] CenterBlood leukocytes automated count (number/volume)2020-01-27 11:55:00* Test Item Value Reference Range Interpretation Comments White Blood Count (test code = 6690-2) 5.35 4.8-10.8 [facility] CenterBlmille [facility] erythrocytes automated count (number/volume)2020-01-27 11:55:00* Test Item Value Reference Range Interpretation Comments Red Blood Count (test code = 789-8) 5.52 3.6-5.1 [facility] CenterBlood hemoglobin measurement (moles/volume)2020-01-27 11:55:00* Test Item Value Reference Range Interpretation Comments Hemoglobin (test code = 02051-1) 16.5 12.0-16.0 [facility] CenterAutomated blood hematocrit (volume fraction)2020-01-27 11:55:00* Test Item Value Reference Range Interpretation Comments Hematocrit (test code = 4544-3) 53.1 34.2-44.1 [facility] CenterAutomated erythrocyte mean corpuscular nkedek4166-26-69 11:55:00* Test Item Value Reference Range Interpretation Comments Mean Corpuscular Volume (test code = 787-2) 96.2 81-99 [facility] CenterAutomated erythrocyte mean corpuscular hemoglobin (mass per erythrocyte)2020-01-27 11:55:00* Test Item Value Reference Range Interpretation Comments Mean Corpuscular Hemoglobin (test code = 785-6) 29.9 28-32 [facility] CenterAutomated erythrocyte mean corpuscular hemoglobin concentration measurement (mass/volume)2020-01-27 11:55:00* Test Item Value Reference Range Interpretation Comments Mean Corpuscular Hemoglobin Concent (test code = 786-4) 31.1 31-35 [facility] CenterRDW FsuSu-Cjo0806-51-31 11:55:00* Test Item Value Reference Range Interpretation Comments Red Cell Distribution Width (test code = 54483-8) 13.7 11.7 -14.4 [facility] CenterAutomated blood platelet count (count/volume)2020-01-27 11:55:00* Test Item Value Reference Range Interpretation Comments Platelet Count (test code = 777-3) 87 140-360 NO CLOTThis test has been rerun and double checked for accuracy.[facility] CenterAutomated blood segmented neutrophil count as percentage of total jhihokllex4032-50-62 11:55:00* Test Item Value Reference Range Interpretation Comments Neutrophils (%) (Auto) (test code = 60671-8) 69.1 38.7-80.0 [facility] CenterAutomated blood lymphocyte count as percentage ot total yzqqjszhmn0929-34-33 11:55:00* Test Item Value Reference Range Interpretation Comments Lymphocytes (%) (Auto) (test code = 736-9) 14.4 18.0-39.1 [facility] CenterAutomated blood monocyte count as percentage of total uoxbcffdkh1896-70-73 11:55:00* Test Item Value Reference Range Interpretation Comments Monocytes (%) (Auto) (test code = 5905-5) 11.2 4.4-11.3 [facility] CenterAutomated blood eosinophil count as percentage of total rdquaaqhxa0985-68-65 11:55:00* Test Item Value Reference Range Interpretation Comments Eosinophils (%) (Auto) (test code = 713-8) 4.5 0.0-6.0 [facility] CenterAutomated blood basophil count as percentage of total upyxsnalco2293-80-30 11:55:00* Test Item Value Reference Range Interpretation Comments Basophils (%) (Auto) (test code = 706-2) 0.6 0.0-1.0 [facility] CenterFluoroscopic procedure less than one hour rdpnxnww2016-80-11 11:55:00* Test Item Value Reference Range Interpretation Comments IM GRANULOCYTES % (test code = IM GRANULOCYTES %) 0.2 0.0- 1.0 [facility] CenterAutomated blood neutrophil count 2020-01-27 11:55:00* Test Item Value Reference Range Interpretation Comments Neutrophils # (Auto) (test code = 751-8) 3.7 2.1-6.9 [facility] CenterBlood lymphocytes count (number/volume) 2020-01-27 11:55:00* Test Item Value Reference Range Interpretation Comments Lymphocytes # (Auto) (test code = 42439-2) 0.8 1.0-3.2 [facility] CenterBlood monocytes automated count (number/volume)2020-01-27 11:55:00* Test Item Value Reference Range Interpretation Comments Monocytes # (Auto) (test code = 742-7) 0.6 0.2-0.8 [facility] CenterAutomated blood eosinophil count 2020-01-27 11:55:00* Test Item Value Reference Range Interpretation Comments Eosinophils # (Auto) (test code = 711-2) 0.2 0.0-0.4 [facility] CenterAutomated blood basophil count (count/volume)2020-01-27 11:55:00* Test Item Value Reference Range Interpretation Comments Basophils # (Auto) (test code = 704-7) 0.0 0.0-0.1 [facility] CenterFluoroscopic procedure less than one hour dkqccjfc0889-04-14 11:55:00* Test Item Value Reference Range Interpretation Comments Absolute Immature Granulocyte (auto (karo t code = Absolute Immature Granulocyte (auto) 0.01 0-0.1 [facility] CenterB-Type Natriuretic Ixgwdvn7073-65-15 12:05:00* Test Item Value Reference Range Interpretation Comments B-Type Natriuretic Peptide (test code = 86614-7) 199.4 0-100 H [facility] CenterCreatine Kinase VL5820-82-40 12:04:00* Test Item Value Reference Range Interpretation Comments Creatine Kinase MB (test code = 37419-3) 1.10 0-5.0 [facility] CenterTroponin J1977-86-82 12:04:00* Test Item Value Reference Range Interpretation Comments Troponin I (test code = HVF3182) 0.021 0-0.300 [facility] Fyhex9053-89-65 11:58:00* Test Item Value Reference Range Interpretation Comments Sodium Level (test code = 2951-2) 142 136-145 [facility]Potassium Lqyag8178-50-54 11:58:00* Test Item Value Reference Range Interpretation Comments Potassium Level (test code = 2823-3) 3.9 3.5-5.1 [facility] CenterChloride Xdizq6227-94-03 11:58:00* Test Item Value Reference Range Interpretation Comments Chloride Level (test code = 2075-0) 105 98-107 [facility] CenterCarbon Dioxide Wgsll6998-29-31 11:58:00* Test Item Value Reference Range Interpretation Comments Carbon Dioxide Level (test code = 2028-9) 23 22-29 [facility] CenterAnion Ill6756-14-37 11:58:00* Test Item Value Reference Range Interpretation Comments Anion Gap (test code = 44090-3) 17.9 8-16 H [facility] CenterBlood Urea Apixxwcb1480-83-32 11:58:00* Test Item Value Reference Range Interpretation Comments Blood Urea Nitrogen (test code = 3094-0) 37 7-26 H [facility] CenterCreatinine2020-02-07 11:58:00* Test Item Value Reference Range Interpretation Comments Creatinine (test code = 2160-0) 6.64 0.57-1.11 H [facility] CenterBUN/Creatinine Dyphs4025-68-05 11:58:00* Test Item Value Reference Range Interpretation Comments BUN/Creatinine Ratio (test code = 3097-3) 6 6-25 [facility] CenterEstimat Glomerular Filtration Rate 2019-10-05 11:58:00* Test Item Value Reference Range Interpretation Comments Estimat Glomerular Filtration Rate (test code = 848519140) 6 >60 L Ranges were taken from the National Kidney Disease Education Program and the [facility] literature.Reference ranges:60 or greater: Kiddks98-10 ( for 3 consecutive months): Chronic kidney disease 15 or less: Kidney failureUniversity Medical CenterGlucose Lvrgp7430-01-52 11:58:00* Test Item Value Reference Range Interpretation Comments Glucose Level (test code = MXZ1654) 117 74-118 [facility] CenterCalcium Ceffc7058-72-44 11:58:00* Test Item Value Reference Range Interpretation Comments Calcium Level (test code = 90822-7) 9.5 8.4-10.2 [facility] CenterTotal Ublkvjyvo1395-56-22 11:58:00* Test Item Value Reference Range Interpretation Comments Total Bilirubin (test code = 1975-2) 0.5 0.2-1.2 [facility] CenterAspartate Amino Transf (AST/SGOT) 2019-10-05 11:58:00* Test Item Value Reference Range Interpretation Comments Aspartate Amino Transf (AST/SGOT) (test code = Aspartate Amino Transf (AST/SGOT)) 15 5-34 [facility] CenterAlanine Aminotransferase (ALT/SGPT) 2019-10-05 11:58:00* Test Item Value Reference Range Interpretation Comments Alanine Aminotransferase (ALT/SGPT) (test code = 1742-6) 10 0-55 [facility] CenterTotal Xubkadg7039-18-04 11:58:00* Test Item Value Reference Range Interpretation Comments Total Protein (test code = 2885-2) 7.0 6.5-8.1 [facility] CenterAlbumin2020-02-07 11:58:00* Test Item Value Reference Range Interpretation Comments Albumin (test code = 1751-7) 3.3 3.5-5.0 L [facility] CenterGlobulin2020-02-07 11:58:00* Test Item Value Reference Range Interpretation Comments Globulin (test code = 66046-0) 3.7 2.3-3.5 H [facility] CenterAlbumin/Globulin Wydet9665-55-51 11:58:00 * Test Item Value Reference Range Interpretation Comments Albumin/Globulin Ratio (test code = 1759-0) 0.9 0.8-2.0 [facility] CenterAlkaline Sszgfhermmh1721-02-43 11:58:00* Test Item Value Reference Range Interpretation Comments Alkaline Phosphatase (test code = 6768-6) 108 40-150 [facility] CenterCreatine Zifdnq9503-91-69 11:58:00* Test Item Value Reference Range Interpretation Comments Creatine Kinase (test code = 2157-6) 33 29-168 [facility] CenterProthrombin Prvv7509-11-87 11:50:00* Test Item Value Reference Range Interpretation Comments Prothrombin Time (test code = 5902-2) 14.2 11.9-14.5 [facility] CenterProthromb Time International Ratio 2019-10-05 11:50:00* Test Item Value Reference Range Interpretation Comments Prothromb Time International Ratio (test code = 6301-6) 1.04 Oral Anticoagulant Therapy INR Values:1. Low Intensity Therapy 1.5 - 2.02 . Moderate Intensity Therapy 2.0 - 3.03. High Intensity Therapy(1) 2.5 - 3. 54. High Intensity Therapy(2) 3.0 - 4.05. Panic Value INR > 5.0 [facility] CenterActivated Partial Thromboplast Time 2019-10-05 11:50:00* Test Item Value Reference Range Interpretation Comments Activated Partial Thromboplast Time (test code = 08772-1) 31.2 23.8-35.5 [facility] CenterWhite Blood Vbyca9190-56-59 11:38:00* Test Item Value Reference Range Interpretation Comments White Blood Count (test code = 6690-2) 7.09 4.8-10.8 [facility] CenterRed Blood Kzohf1400-94-16 11:38:00* Test Item Value Reference Range Interpretation Comments Red Blood Count (test code = 789-8) 4.87 3.6-5.1 [facility] CenterHemoglobin2020-02-07 11:38:00* Test Item Value Reference Range Interpretation Comments Hemoglobin (test code = 72096-1) 14.1 12.0-16.0 [facility] CenterHematocrit2020-02-07 11:38:00* Test Item Value Reference Range Interpretation Comments Hematocrit (test code = 4544-3) 43.8 34.2-44.1 [facility] CenterMean Corpuscular Vbugns0477-40-73 11:38:00* Test Item Value Reference Range Interpretation Comments Mean Corpuscular Volume (test code = 787-2) 89.9 81-99 [facility] CenterMean Corpuscular Xznpzakgpe0190-72-20 11:38:00* Test Item Value Reference Range Interpretation Comments Mean Corpuscular Hemoglobin (test code = 785-6) 29.0 28-32 [facility] Hemoglobin Concent 2019-10-05 11:38:00* Test Item Value Reference Range Interpretation Comments Mean Corpuscular Hemoglobin Concent (test code = 786-4) 32.2 31-35 [facility] CenterRed Cell Distribution Jkfnd4439-96-87 11:38:00* Test Item Value Reference Range Interpretation Comments Red Cell Distribution Width (test code = 04204-8) 13.6 11.7 -14.4 [facility] CenterPlatelet Bxqxw6021-68-66 11:38:00* Test Item Value Reference Range Interpretation Comments Platelet Count (test code = 777-3) 112 140-360 L [facility] CenterNeutrophils (%) (Auto)2019-10-05 11:38:00 * Test Item Value Reference Range Interpretation Comments Neutrophils (%) (Auto) (test code = 23979-3) 73.5 38.7-80.0 [facility] CenterLymphocytes (%) (Auto)2019-10-05 11:38:00 * Test Item Value Reference Range Interpretation Comments Lymphocytes (%) (Auto) (test code = 736-9) 15.8 18.0-39.1 L [facility] CenterMonocytes (%) (Auto)2019-10-05 11:38:00* Test Item Value Reference Range Interpretation Comments Monocytes (%) (Auto) (test code = 5905-5) 7.9 4.4-11.3 [facility] CenterEosinophils (%) (Auto)2019-10-05 11:38:00 * Test Item Value Reference Range Interpretation Comments Eosinophils (%) (Auto) (test code = 713-8) 1.8 0.0-6.0 [facility] CenterBasophils (%) (Auto)2019-10-05 11:38:00* Test Item Value Reference Range Interpretation Comments Basophils (%) (Auto) (test code = 706-2) 0.6 0.0-1.0 [facility] CenterIM GRANULOCYTES %2019-10-05 11:38:00* Test Item Value Reference Range Interpretation Comments IM GRANULOCYTES % (test code = IM GRANULOCYTES %) 0.4 0.0- 1.0 [facility] CenterNeutrophils # (Auto)2019-10-05 11:38:00* Test Item Value Reference Range Interpretation Comments Neutrophils # (Auto) (test code = 751-8) 5.2 2.1-6.9 [facility] CenterLymphocytes # (Auto)2019-10-05 11:38:00* Test Item Value Reference Range Interpretation Comments Lymphocytes # (Auto) (test code = 00215-5) 1.1 1.0-3.2 [facility] CenterMonocytes # (Auto)2019-10-05 11:38:00* Test Item Value Reference Range Interpretation Comments Monocytes # (Auto) (test code = 742-7) 0.6 0.2-0.8 [facility] CenterEosinophils # (Auto)2019-10-05 11:38:00* Test Item Value Reference Range Interpretation Comments Eosinophils # (Auto) (test code = 711-2) 0.1 0.0-0.4 [facility] CenterBasophils # (Auto)2019-10-05 11:38:00* Test Item Value Reference Range Interpretation Comments Basophils # (Auto) (test code = 704-7) 0.0 0.0-0.1 [facility] CenterAbsolute Immature Granulocyte (auto 2019-10-05 11:38:00* Test Item Value Reference Range Interpretation Comments Absolute Immature Granulocyte (auto (karo t code = Absolute Immature Granulocyte (auto) 0.03 0-0.1 [facility] CenterCHEST SINGLE (PORTABLE)2019-10-05 10:58:00 [place] [address] Patient Name: MIGUEL FONTENOT MR #: [id number] : 1935 Age/Sex: 84/F Req #: [id number] Adm Physician: Ordered by: LOY SO OPERATIONS TRAINER Report #: [id number] Location: ER Room/Bed: Procedure: 0207-0 034 DX/CHEST [...] No acute cardiopulmonary abnormality. Signed by: Loy Gomez on 10/05 10:58 AM Dictated By: LOY GOMEZ MD 1058 Transcribed By: YAQUELIN on 10/05/19 1058 COPY TO: LOY SO OPERATIONS TRAINER CT BRAIN MJ1243-61-54 10:55:00 [place] [address] Patient Name: MIGUEL FONTENOT MR #: [id number] : 07/1935 Age/Sex: 84/F Req #: [id number] Adm Physician: Ordered by: LOY SO OPERATIONS TRAINER Report #: [id number] Location: ER Room/Bed: Procedure: 0207-[address]/CT [...] ithout mass effect. Signed by: Dr. Cezar Cabrera M.D. on 10/05/2019 11:01 AM Dictated By: CEZAR CABRERA MD 1101 COPY TO: [place] SO NP Prothrombin time (PT) in platelet poor plasma by coagulation ixmjq0729-13-03 09:48:00* Test Item Value Reference Range Interpretation Comments Prothrombin Time (test code = 5902-2) 14.2 11.9-14.5 [facility] CenterINR in Platelet poor plasma by Coagulation ogyut1364-31-68 09:48:00* Test Item Value Reference Range Interpretation Comments Prothromb Time International Ratio (test code = 6301-6) 1.04 Oral Anticoagulant Therapy INR Values:1. Low Intensity Therapy 1.5 - 2.02 . Moderate Intensity Therapy 2.0 - 3.03. High Intensity Therapy(1) 2.5 - 3. 54. High Intensity Therapy(2) 3.0 - 4.05. Panic Value INR > 5.0 [facility] CenterActivated partial thromboplastin time (aPTT) in platelet poor plasma by coagulation iijea5371-89-90 09:48:00* Test Item Value Reference Range Interpretation Comments Activated Partial Thromboplast Time (test code = 76422-8) 31.2 23.8-35.5 [facility] 09:48:00* Test Item Value Reference Range Interpretation Comments B-Type Natriuretic Peptide (test code = 47639-8) 199.4 0-100 [facility] CenterActivated partial thromboplastin time (aPTT) in platelet poor plasma by coagulation fkpwe9782-82-01 09:48:00* Test Item Value Reference Range Interpretation Comments Activated Partial Thromboplast Time (test code = 08927-0) 31.2 23.8-35.5 [facility]-nGqy4551-86-29 09:48:00* Test Item Value Reference Range Interpretation Comments B-Type Natriuretic Peptide (test code = 25931-6) 199.4 0-100 [facility]odium Txqar4824-02-56 07:12:00* Test Item Value Reference Range Interpretation Comments Sodium Level (test code = 2951-2) 138 136-145 [facility] CenterPotassium Nsldc4726-67-68 07:12:00* Test Item Value Reference Range Interpretation Comments Potassium Level (test code = 2823-3) 3.6 3.5-5.1 [facility] CenterChloride Hblgb0303-48-70 07:12:00* Test Item Value Reference Range Interpretation Comments Chloride Level (test code = 2075-0) 105 98-107 [facility] CenterCarbon Dioxide Upgvx9499-12-25 07:12:00* Test Item Value Reference Range Interpretation Comments Carbon Dioxide Level (test code = 2028-9) 21 22-29 L [facility] CenterAnion Zus6830-75-71 07:12:00* Test Item Value Reference Range Interpretation Comments Anion Gap (test code = 57344-1) 15.6 8-16 [facility] CenterBlood Urea Phaexaqk1467-34-45 07:12:00* Test Item Value Reference Range Interpretation Comments Blood Urea Nitrogen (test code = 3094-0) 32 7-26 H [facility] CenterCreatinine2020-01-26 07:12:00* Test Item Value Reference Range Interpretation Comments Creatinine (test code = 2160-0) 5.68 0.57-1.11 H [facility] CenterBUN/Creatinine Kucir1369-04-43 07:12:00* Test Item Value Reference Range Interpretation Comments BUN/Creatinine Ratio (test code = 3097-3) 6 6-25 [facility] CenterEstimat Glomerular Filtration Rate 2019-09-23 07:12:00* Test Item Value Reference Range Interpretation Comments Estimat Glomerular Filtration Rate (test code = 844004343) 7 >60 L Ranges were taken from the National Kidney Disease Education Program and the [facility] literature.Reference ranges:60 or greater: Avavrx08-11 ( for 3 consecutive months): Chronic kidney disease 15 or less: Kidney failureUniversity Medical CenterGlucose Lhofp9682-35-65 07:12:00* Test Item Value Reference Range Interpretation Comments Glucose Level (test code = ZBL8818) 108 74-118 [facility] CenterCalcium Xxsmq1782-65-69 07:12:00* Test Item Value Reference Range Interpretation Comments Calcium Level (test code = 96802-0) 9.6 8.4-10.2 [facility] CenterTotal Ftakfwgvc2881-63-46 07:12:00* Test Item Value Reference Range Interpretation Comments Total Bilirubin (test code = 1975-2) 0.3 0.2-1.2 [facility] CenterAspartate Amino Transf (AST/SGOT) 2019-09-23 07:12:00* Test Item Value Reference Range Interpretation Comments Aspartate Amino Transf (AST/SGOT) (test code = Aspartate Amino Transf (AST/SGOT)) 12 5-34 [facility] CenterAlanine Aminotransferase (ALT/SGPT) 2019-09-23 07:12:00* Test Item Value Reference Range Interpretation Comments Alanine Aminotransferase (ALT/SGPT) (test code = 1742-6) 11 0-55 [facility] CenterTotal Pdbzdxv8243-28-71 07:12:00* Test Item Value Reference Range Interpretation Comments Total Protein (test code = 2885-2) 6.2 6.5-8.1 L [facility] CenterAlbumin2020-01-26 07:12:00* Test Item Value Reference Range Interpretation Comments Albumin (test code = 1751-7) 2.3 3.5-5.0 L [facility] CenterGlobulin2020-01-26 07:12:00* Test Item Value Reference Range Interpretation Comments Globulin (test code = 99111-0) 3.9 2.3-3.5 H [facility] CenterAlbumin/Globulin Eaiil1639-36-40 07:12:00 * Test Item Value Reference Range Interpretation Comments Albumin/Globulin Ratio (test code = 1759-0) 0.6 0.8-2.0 L [facility] CenterAlkaline Vjwipmqawyx6769-92-65 07:12:00* Test Item Value Reference Range Interpretation Comments Alkaline Phosphatase (test code = 6768-6) 99 40-150 [facility] CenterTriglycerides Jfjir4132-37-72 07:12:00* Test Item Value Reference Range Interpretation Comments Triglycerides Level (test code = 2571-8) 95 0-149 [facility] CenterCholesterol Fgejf5270-22-97 07:12:00* Test Item Value Reference Range Interpretation Comments Cholesterol Level (test code = 2093-3) 120 0-199 Less than 200 mg/dL Low Btks512 - 239 mg/dL Borderline Gksu529 m g/dl and greater High Risk [facility] CenterLDL Uhiexvwxtzv0062-29-09 07:12:00* Test Item Value Reference Range Interpretation Comments LDL Cholesterol (test code = 2089-1) 59 60-130 L [facility] CenterHDL Tcpddhiyjmc2016-54-12 07:12:00* Test Item Value Reference Range Interpretation Comments HDL Cholesterol (test code = 2085-9) 42 40-60 [facility] CenterCholesterol/HDL Pweqm2558-31-32 07:12:00 * Test Item Value Reference Range Interpretation Comments Cholesterol/HDL Ratio (test code = 9830-1) 2.9 3.0-3.6 L [facility]odium Obvqg0701-45-55 07:12:00* Test Item Value Reference Range Interpretation Comments Sodium Level (test code = 2951-2) 138 136-145 [facility] CenterPotassium Cmyjp9951-73-69 07:12:00* Test Item Value Reference Range Interpretation Comments Potassium Level (test code = 2823-3) 3.6 3.5-5.1 [facility] CenterChloride Jugtm6422-97-62 07:12:00* Test Item Value Reference Range Interpretation Comments Chloride Level (test code = 2075-0) 105 98-107 [facility] CenterCarbon Dioxide Ueexs3872-27-24 07:12:00* Test Item Value Reference Range Interpretation Comments Carbon Dioxide Level (test code = 2028-9) 21 22-29 L [facility] CenterAnion Evf4148-03-85 07:12:00* Test Item Value Reference Range Interpretation Comments Anion Gap (test code = 14401-7) 15.6 8-16 [facility] CenterBlood Urea Xfanqexh8861-77-98 07:12:00* Test Item Value Reference Range Interpretation Comments Blood Urea Nitrogen (test code = 3094-0) 32 7-26 H [facility] CenterCreatinine2020-01-26 07:12:00* Test Item Value Reference Range Interpretation Comments Creatinine (test code = 2160-0) 5.68 0.57-1.11 H [facility] CenterBUN/Creatinine Txxoa8140-70-84 07:12:00* Test Item Value Reference Range Interpretation Comments BUN/Creatinine Ratio (test code = 3097-3) 6 6-25 [facility] CenterEstimat Glomerular Filtration Rate 2019-09-23 07:12:00* Test Item Value Reference Range Interpretation Comments Estimat Glomerular Filtration Rate (test code = 198101593) 7 >60 L Ranges were taken from the National Kidney Disease Education Program and the [facility] literature.Reference ranges:60 or greater: Zekozj99-42 ( for 3 consecutive months): Chronic kidney disease 15 or less: Kidney failureUniversity Medical CenterGlucose Oxnls4690-36-51 07:12:00* Test Item Value Reference Range Interpretation Comments Glucose Level (test code = JRC2219) 108 74-118 [facility] CenterCalcium Ppjeo3498-01-03 07:12:00* Test Item Value Reference Range Interpretation Comments Calcium Level (test code = 01379-1) 9.6 8.4-10.2 [facility] CenterTotal Kowqvhyts1116-91-71 07:12:00* Test Item Value Reference Range Interpretation Comments Total Bilirubin (test code = 1975-2) 0.3 0.2-1.2 [facility] CenterAspartate Amino Transf (AST/SGOT) 2019-09-23 07:12:00* Test Item Value Reference Range Interpretation Comments Aspartate Amino Transf (AST/SGOT) (test code = Aspartate Amino Transf (AST/SGOT)) 12 5-34 [facility] CenterAlanine Aminotransferase (ALT/SGPT) 2019-09-23 07:12:00* Test Item Value Reference Range Interpretation Comments Alanine Aminotransferase (ALT/SGPT) (test code = 1742-6) 11 0-55 [facility] CenterTotal Jgefiyn8592-69-17 07:12:00* Test Item Value Reference Range Interpretation Comments Total Protein (test code = 2885-2) 6.2 6.5-8.1 L [facility] CenterAlbumin2020-01-26 07:12:00* Test Item Value Reference Range Interpretation Comments Albumin (test code = 1751-7) 2.3 3.5-5.0 L [facility] CenterGlobulin2020-01-26 07:12:00* Test Item Value Reference Range Interpretation Comments Globulin (test code = 08381-5) 3.9 2.3-3.5 H [facility] CenterAlbumin/Globulin Ihkiu6626-81-95 07:12:00 * Test Item Value Reference Range Interpretation Comments Albumin/Globulin Ratio (test code = 1759-0) 0.6 0.8-2.0 L [facility] CenterAlkaline Kwehzstcwld0251-94-80 07:12:00* Test Item Value Reference Range Interpretation Comments Alkaline Phosphatase (test code = 6768-6) 99 40-150 [facility] CenterTriglycerides Mlagk4511-27-54 07:12:00* Test Item Value Reference Range Interpretation Comments Triglycerides Level (test code = 2571-8) 95 0-149 [facility] CenterCholesterol Guviu6378-35-34 07:12:00* Test Item Value Reference Range Interpretation Comments Cholesterol Level (test code = 2093-3) 120 0-199 Less than 200 mg/dL Low Ouvn362 - 239 mg/dL Borderline Cbfw652 m g/dl and greater High Risk [facility] CenterLDL Geaohpftlpn9249-88-04 07:12:00* Test Item Value Reference Range Interpretation Comments LDL Cholesterol (test code = 2089-1) 59 60-130 L [facility] CenterHDL Fhnhwhtqpns2007-06-05 07:12:00* Test Item Value Reference Range Interpretation Comments HDL Cholesterol (test code = 2085-9) 42 40-60 [facility] CenterCholesterol/HDL Zmxnk6105-15-19 07:12:00 * Test Item Value Reference Range Interpretation Comments Cholesterol/HDL Ratio (test code = 9830-1) 2.9 3.0-3.6 L [facility] CenterTriglycerides Prfcw8055-64-10 07:12:00* Test Item Value Reference Range Interpretation Comments Triglycerides Level (test code = 2571-8) 95 0-149 [facility] CenterCholesterol Cbsli1925-89-42 07:12:00* Test Item Value Reference Range Interpretation Comments Cholesterol Level (test code = 2093-3) 120 0-199 Less than 200 mg/dL Low Wyss789 - 239 mg/dL Borderline Vhvh319 m g/dl and greater High Risk [facility] CenterLDL Nqqemgvgedj5896-30-33 07:12:00* Test Item Value Reference Range Interpretation Comments LDL Cholesterol (test code = 2089-1) 59 60-130 L [facility] CenterHDL Kglywjxnsie1726-59-97 07:12:00* Test Item Value Reference Range Interpretation Comments HDL Cholesterol (test code = 2085-9) 42 40-60 [facility] CenterCholesterol/HDL Doagy9792-02-83 07:12:00 * Test Item Value Reference Range Interpretation Comments Cholesterol/HDL Ratio (test code = 9830-1) 2.9 3.0-3.6 L [facility] CenterCreatine Nvivym5832-40-24 07:10:00* Test Item Value Reference Range Interpretation Comments Creatine Kinase (test code = 2157-6) 82 29-168 [facility] CenterCreatine Kinase UD8126-32-73 07:10:00* Test Item Value Reference Range Interpretation Comments Creatine Kinase MB (test code = 11579-8) 1.50 0-5.0 [facility] CenterTroponin Q7471-08-44 07:10:00* Test Item Value Reference Range Interpretation Comments Troponin I (test code = NPB8577) 0.007 0-0.300 [facility] CenterCreatine Asoueg6082-01-63 07:10:00* Test Item Value Reference Range Interpretation Comments Creatine Kinase (test code = 2157-6) 82 29-168 [facility] CenterCreatine Kinase XK3738-31-21 07:10:00* Test Item Value Reference Range Interpretation Comments Creatine Kinase MB (test code = 60376-3) 1.50 0-5.0 [facility] CenterTroponin U0750-10-04 07:10:00* Test Item Value Reference Range Interpretation Comments Troponin I (test code = UJK8539) 0.007 0-0.300 [facility] CenterWhite Blood Efwni6710-83-57 06:42:00* Test Item Value Reference Range Interpretation Comments White Blood Count (test code = 6690-2) 7.78 4.8-10.8 [facility] CenterRed Blood Ypwrk7921-15-03 06:42:00* Test Item Value Reference Range Interpretation Comments Red Blood Count (test code = 789-8) 4.80 3.6-5.1 [facility] CenterHemoglobin2020-01-26 06:42:00* Test Item Value Reference Range Interpretation Comments Hemoglobin (test code = 09713-3) 13.9 12.0-16.0 [facility] CenterHematocrit2020-01-26 06:42:00* Test Item Value Reference Range Interpretation Comments Hematocrit (test code = 4544-3) 42.5 34.2-44.1 [facility] CenterMean Corpuscular Aucovb2542-64-89 06:42:00* Test Item Value Reference Range Interpretation Comments Mean Corpuscular Volume (test code = 787-2) 88.5 81-99 [facility] CenterMean Corpuscular Roesagijuw5839-83-14 06:42:00* Test Item Value Reference Range Interpretation Comments Mean Corpuscular Hemoglobin (test code = 785-6) 29.0 28-32 [facility] CenterMean Corpuscular Hemoglobin Concent 2019-09-23 06:42:00* Test Item Value Reference Range Interpretation Comments Mean Corpuscular Hemoglobin Concent (test code = 786-4) 32.7 31-35 [facility] CenterRed Cell Distribution Tfksg2207-18-35 06:42:00* Test Item Value Reference Range Interpretation Comments Red Cell Distribution Width (test code = 18473-6) 13.7 11.7 -14.4 [facility] CenterPlatelet Rjykq1835-65-91 06:42:00* Test Item Value Reference Range Interpretation Comments Platelet Count (test code = 777-3) 147 140-360 [facility] CenterNeutrophils (%) (Auto)2019-09-23 06:42:00 * Test Item Value Reference Range Interpretation Comments Neutrophils (%) (Auto) (test code = 78361-6) 72.4 38.7-80.0 [facility] CenterLymphocytes (%) (Auto)2019-09-23 06:42:00 * Test Item Value Reference Range Interpretation Comments Lymphocytes (%) (Auto) (test code = 736-9) 13.4 18.0-39.1 L [facility] CenterMonocytes (%) (Auto)2019-09-23 06:42:00* Test Item Value Reference Range Interpretation Comments Monocytes (%) (Auto) (test code = 5905-5) 10.3 4.4-11.3 [facility] CenterEosinophils (%) (Auto)2019-09-23 06:42:00 * Test Item Value Reference Range Interpretation Comments Eosinophils (%) (Auto) (test code = 713-8) 3.0 0.0-6.0 [facility] (Auto)2019-09-23 06:42:00* Test Item Value Reference Range Interpretation Comments Basophils (%) (Auto) (test code = 706-2) 0.6 0.0-1.0 [facility] CenterIM [facility]ANULOCYTES %2019-09-23 06:42:00* Test Item Value Reference Range Interpretation Comments IM GRANULOCYTES % (test code = IM GRANULOCYTES %) 0.3 0.0- 1.0 [facility] CenterNeutrophils # (Auto)2019-09-23 06:42:00* Test Item Value Reference Range Interpretation Comments Neutrophils # (Auto) (test code = 751-8) 5.6 2.1-6.9 [facility] CenterLymphocytes # (Auto)2019-09-23 06:42:00* Test Item Value Reference Range Interpretation Comments Lymphocytes # (Auto) (test code = 87871-5) 1.0 1.0-3.2 [facility] CenterMonocytes # (Auto)2019-09-23 06:42:00* Test Item Value Reference Range Interpretation Comments Monocytes # (Auto) (test code = 742-7) 0.8 0.2-0.8 [facility] CenterEosinophils # (Auto)2019-09-23 06:42:00* Test Item Value Reference Range Interpretation Comments Eosinophils # (Auto) (test code = 711-2) 0.2 0.0-0.4 [facility] CenterBasophils # (Auto)2019-09-23 06:42:00* Test Item Value Reference Range Interpretation Comments Basophils # (Auto) (test code = 704-7) 0.1 0.0-0.1 [facility] CenterAbsolute Immature Granulocyte (auto 2019-09-23 06:42:00* Test Item Value Reference Range Interpretation Comments Absolute Immature Granulocyte (auto (karo t code = Absolute Immature Granulocyte (auto) 0.02 0-0.1 [facility] CenterWhite Blood Rarjj4152-60-62 06:42:00* Test Item Value Reference Range Interpretation Comments White Blood Count (test code = 6690-2) 7.78 4.8-10.8 [facility] CenterRed Blood Idkrv7749-13-23 06:42:00* Test Item Value Reference Range Interpretation Comments Red Blood Count (test code = 789-8) 4.80 3.6-5.1 [facility] CenterHemoglobin2020-01-26 06:42:00* Test Item Value Reference Range Interpretation Comments Hemoglobin (test code = 75139-5) 13.9 12.0-16.0 [facility] CenterHematocrit2020-01-26 06:42:00* Test Item Value Reference Range Interpretation Comments Hematocrit (test code = 4544-3) 42.5 34.2-44.1 [facility] CenterMean Corpuscular Llgmqq9938-99-93 06:42:00* Test Item Value Reference Range Interpretation Comments Mean Corpuscular Volume (test code = 787-2) 88.5 81-99 [facility] CenterMean Corpuscular Kahshxkoqk2968-96-30 06:42:00* Test Item Value Reference Range Interpretation Comments Mean Corpuscular Hemoglobin (test code = 785-6) 29.0 28-32 [facility] CenterMean Corpuscular Hemoglobin Concent 2019-09-23 06:42:00* Test Item Value Reference Range Interpretation Comments Mean Corpuscular Hemoglobin Concent (test code = 786-4) 32.7 31-35 [facility] CenterRed Cell Distribution Traxt5702-82-81 06:42:00* Test Item Value Reference Range Interpretation Comments Red Cell Distribution Width (test code = 45299-5) 13.7 11.7 -14.4 [facility] CenterPlatelet Uqwwj6661-10-12 06:42:00* Test Item Value Reference Range Interpretation Comments Platelet Count (test code = 777-3) 147 140-360 [facility] CenterNeutrophils (%) (Auto)2019-09-23 06:42:00 * Test Item Value Reference Range Interpretation Comments Neutrophils (%) (Auto) (test code = 22768-9) 72.4 38.7-80.0 [facility] CenterLymphocytes (%) (Auto)2019-09-23 06:42:00 * Test Item Value Reference Range Interpretation Comments Lymphocytes (%) (Auto) (test code = 736-9) 13.4 18.0-39.1 L [facility] CenterMonocytes (%) (Auto)2019-09-23 06:42:00* Test Item Value Reference Range Interpretation Comments Monocytes (%) (Auto) (test code = 5905-5) 10.3 4.4-11.3 [facility] CenterEosinophils (%) (Auto)2019-09-23 06:42:00 * Test Item Value Reference Range Interpretation Comments Eosinophils (%) (Auto) (test code = 713-8) 3.0 0.0-6.0 [facility] CenterBasophils (%) (Auto)2019-09-23 06:42:00* Test Item Value Reference Range Interpretation Comments Basophils (%) (Auto) (test code = 706-2) 0.6 0.0-1.0 [facility] CenterIM GRANULOCYTES %2019-09-23 06:42:00* Test Item Value Reference Range Interpretation Comments IM GRANULOCYTES % (test code = IM GRANULOCYTES %) 0.3 0.0- 1.0 [facility] CenterNeutrophils # (Auto)2019-09-23 06:42:00* Test Item Value Reference Range Interpretation Comments Neutrophils # (Auto) (test code = 751-8) 5.6 2.1-6.9 [facility] CenterLymphocytes # (Auto)2019-09-23 06:42:00* Test Item Value Reference Range Interpretation Comments Lymphocytes # (Auto) (test code = 15677-6) 1.0 1.0-3.2 [facility] CenterMonocytes # (Auto)2019-09-23 06:42:00* Test Item Value Reference Range Interpretation Comments Monocytes # (Auto) (test code = 742-7) 0.8 0.2-0.8 [facility] CenterEosinophils # (Auto)2019-09-23 06:42:00* Test Item Value Reference Range Interpretation Comments Eosinophils # (Auto) (test code = 711-2) 0.2 0.0-0.4 [facility] CenterBasophils # (Auto)2019-09-23 06:42:00* Test Item Value Reference Range Interpretation Comments Basophils # (Auto) (test code = 704-7) 0.1 0.0-0.1 [facility] CenterAbsolute Immature Granulocyte (auto 2019-09-23 06:42:00* Test Item Value Reference Range Interpretation Comments Absolute Immature Granulocyte (auto (karo t code = Absolute Immature Granulocyte (auto) 0.02 0-0.1 [facility] plasma triglyceride measurement (mass/volume)2019-09-23 04:35:00* Test Item Value Reference Range Interpretation Comments Triglycerides Level (test code = 2571-8) 95 0-149 [facility] Hospitaler[facility] or plasma cholesterol measurement (mass/volume)2019-09-23 04:35:00* Test Item Value Reference Range Interpretation Comments Cholesterol Level (test code = 2093-3) 120 0-199 Less than 200 mg/dL Low Jvud945 - 239 mg/dL Borderline Vbjo155 m g/dl and greater High Risk [facility] or plasma cholesterol in LDL measurement (mass/volume) 2019-09-23 04:35:00* Test Item Value Reference Range Interpretation Comments LDL Cholesterol (test code = 2089-1) 59 60-130 [facility] or plasma cholesterol in HDL measurement (mass/volume)2019-09-23 04:35:00* Test Item Value Reference Range Interpretation Comments HDL Cholesterol (test code = 2085-9) 42 40-60 [facility]er[facility] or plasma total cholesterol/cholesterol in HDL mass sxhdb0139-28-12 04:35:00* Test Item Value Reference Range Interpretation Comments Cholesterol/HDL Ratio (test code = 9830-1) 2.9 3.0-3.6 [facility] CenterUrine Jiwem5125-93-32 18:05:00* Test Item Value Reference Range Interpretation Comments Urine Color (test code = 5778-6) YELLOW YELLOW [facility] CenterUrine Zbwkyms5755-18-50 18:05:00* Test Item Value Reference Range Interpretation Comments Urine Clarity (test code = 93574-2) CLEAR CLEAR [facility] CenterUrine Specific Nerxwkt8907-35-56 18:05:00 * Test Item Value Reference Range Interpretation Comments Urine Specific [place] (test code = 5811-5) 1.010 1.010-1.02 5 [facility] CenterUrine bT3069-07-41 18:05:00* Test Item Value Reference Range Interpretation Comments Urine pH (test code = 18087-4) 7 5-7 [facility] CenterUrine Leukocyte Dgmbtvzt3117-11-31 18:05:00* Test Item Value Reference Range Interpretation Comments Urine Leukocyte Esterase (test code = 5799-2) NEGATIVE NEGATIVE [facility] CenterUrine Ttylhvi7661-60-86 18:05:00* Test Item Value Reference Range Interpretation Comments Urine Nitrite (test code = 00610-0) NEGATIVE NEGATIVE [facility] CenterUrine Lfrgvau0572-13-85 18:05:00* Test Item Value Reference Range Interpretation Comments Urine Protein (test code = 5804-0) 1+ NEGATIVE H [facility] CenterUrine Glucose (UA)2019-09-22 18:05:00* Test Item Value Reference Range Interpretation Comments Urine Glucose (UA) (test code = 2349-9) NEGATIVE NEGATIVE [facility] CenterUrine Xzpxdvy2186-54-88 18:05:00* Test Item Value Reference Range Interpretation Comments Urine Ketones (test code = 10171-3) NEGATIVE NEGATIVE [facility] CenterUrine Qhhktmddrhsm6888-38-56 18:05:00* Test Item Value Reference Range Interpretation Comments Urine Urobilinogen (test code = 35339-4) 0.2 0.2-1 [facility] CenterUrine Vczpytqza7912-03-09 18:05:00* Test Item Value Reference Range Interpretation Comments Urine Bilirubin (test code = 1978-6) NEGATIVE NEGATIVE [facility] CenterU[facility] Vrzzh4472-69-71 18:05:00* Test Item Value Reference Range Interpretation Comments Urine Blood (test code = 71926-8) 1+ NEGATIVE [facility] CenterUrine GOM6424-22-87 18:05:00* Test Item Value Reference Range Interpretation Comments Urine WBC (test code = 5821-4) 6-10 0-5 H [facility] LYR1952-16-76 18:05:00* Test Item Value Reference Range Interpretation Comments Urine RBC (test code = 30734-5) 0-5 0-5 [facility] CenterU[facility] Elsbquug3790-51-65 18:05:00* Test Item Value Reference Range Interpretation Comments Urine Bacteria (test code = 58260-4) RARE NONE [facility] CenterUrine Epithelial Ffuvl4629-76-17 18:05:00 * Test Item Value Reference Range Interpretation Comments Urine Epithelial Cells (test code = 17182-7) FEW NONE [facility] CenterU[facility] Phjko1966-96-48 18:05:00* Test Item Value Reference Range Interpretation Comments Urine Color (test code = 5778-6) YELLOW YELLOW [facility] CenterUrine Wxbevbd9609-25-24 18:05:00* Test Item Value Reference Range Interpretation Comments Urine Clarity (test code = 19688-3) CLEAR CLEAR [facility] CenterUrine Specific Qgpygdv3651-37-41 18:05:00 * Test Item Value Reference Range Interpretation Comments Urine Specific [place] (test code = 5811-5) 1.010 1.010-1.02 5 [facility] CenterUrine hP7397-86-38 18:05:00* Test Item Value Reference Range Interpretation Comments Urine pH (test code = 35435-6) 7 5-7 [facility] CenterU[facility] Leukocyte Tznrrmwh6157-82-05 18:05:00* Test Item Value Reference Range Interpretation Comments Urine Leukocyte Esterase (test code = 5799-2) NEGATIVE NEGATIVE [facility] CenterU[facility] Cxljulm7315-04-79 18:05:00* Test Item Value Reference Range Interpretation Comments Urine Nitrite (test code = 64039-5) NEGATIVE NEGATIVE [facility] CenterU[facility] Aljahlh5419-36-58 18:05:00* Test Item Value Reference Range Interpretation Comments Urine Protein (test code = 5804-0) 1+ NEGATIVE H [facility] CenterUrine Glucose (UA)2019-09-22 18:05:00* Test Item Value Reference Range Interpretation Comments Urine Glucose (UA) (test code = 2349-9) NEGATIVE NEGATIVE [facility] CenterUrine Pqruecs2653-73-97 18:05:00* Test Item Value Reference Range Interpretation Comments Urine Ketones (test code = 92243-0) NEGATIVE NEGATIVE [facility] CenterU[facility] Binosikuhjcs2123-73-70 18:05:00* Test Item Value Reference Range Interpretation Comments Urine Urobilinogen (test code = 29292-6) 0.2 0.2-1 [facility] CenterU[facility] Owoihhxdb3651-36-82 18:05:00* Test Item Value Reference Range Interpretation Comments Urine Bilirubin (test code = 1978-6) NEGATIVE NEGATIVE [facility] Vfldc5600-75-98 18:05:00* Test Item Value Reference Range Interpretation Comments Urine Blood (test code = 40440-6) 1+ NEGATIVE [facility] CenterU[facility] IVD1388-61-59 18:05:00* Test Item Value Reference Range Interpretation Comments Urine WBC (test code = 5821-4) 6-10 0-5 H [facility] CenterU[facility] NND9366-11-01 18:05:00* Test Item Value Reference Range Interpretation Comments Urine RBC (test code = 52384-0) 0-5 0-5 [facility] CenterU[facility] Bbmzylby8548-23-71 18:05:00* Test Item Value Reference Range Interpretation Comments Urine Bacteria (test code = 15361-9) RARE NONE [facility] CenterU[facility] Epithelial Ihjkv3613-49-62 18:05:00 * Test Item Value Reference Range Interpretation Comments Urine Epithelial Cells (test code = 68555-4) FEW NONE [facility] CenterU[facility] Vfwze9276-13-31 18:05:00* Test Item Value Reference Range Interpretation Comments Urine Color (test code = 5778-6) YELLOW YELLOW [facility] CenterU[facility] Mfjkkcq2314-54-45 18:05:00* Test Item Value Reference Range Interpretation Comments Urine Clarity (test code = 64362-9) CLEAR CLEAR [facility] Specific Cvcbvdl3354-34-63 18:05:00 * Test Item Value Reference Range Interpretation Comments Urine Specific [place] (test code = 5811-5) 1.010 1.010-1.02 5 [facility] CenterU[facility] hL7157-20-44 18:05:00* Test Item Value Reference Range Interpretation Comments Urine pH (test code = 68246-0) 7 5-7 [facility] CenterU[facility] Leukocyte Mhmnxqtg9688-98-24 18:05:00* Test Item Value Reference Range Interpretation Comments Urine Leukocyte Esterase (test code = 5799-2) NEGATIVE NEGATIVE [facility] CenterU[facility] Coriiob8804-94-48 18:05:00* Test Item Value Reference Range Interpretation Comments Urine Nitrite (test code = 01800-3) NEGATIVE NEGATIVE [facility] CenterU[facility] Jixcbrr2520-94-62 18:05:00* Test Item Value Reference Range Interpretation Comments Urine Protein (test code = 5804-0) 1+ NEGATIVE H [facility] CenterUrine Glucose (UA)2019-09-22 18:05:00* Test Item Value Reference Range Interpretation Comments Urine Glucose (UA) (test code = 2349-9) NEGATIVE NEGATIVE [facility] CenterU[facility] Wojirty4479-88-76 18:05:00* Test Item Value Reference Range Interpretation Comments Urine Ketones (test code = 83653-3) NEGATIVE NEGATIVE [facility] CenterU[facility] Tryfbuqcjgll5603-53-85 18:05:00* Test Item Value Reference Range Interpretation Comments Urine Urobilinogen (test code = 65275-1) 0.2 0.2-1 [facility] Egkhvgtks6811-46-00 18:05:00* Test Item Value Reference Range Interpretation Comments Urine Bilirubin (test code = 1978-6) NEGATIVE NEGATIVE [facility] Cvliy9178-15-36 18:05:00* Test Item Value Reference Range Interpretation Comments Urine Blood (test code = 28824-6) 1+ NEGATIVE [facility] XAY2535-62-46 18:05:00* Test Item Value Reference Range Interpretation Comments Urine WBC (test code = 5821-4) 6-10 0-5 H [facility] CenterU[facility] RTV6063-73-84 18:05:00* Test Item Value Reference Range Interpretation Comments Urine RBC (test code = 21020-8) 0-5 0-5 [facility] CenterU[facility] Ddalpcaf5771-06-32 18:05:00* Test Item Value Reference Range Interpretation Comments Urine Bacteria (test code = 82146-7) RARE NONE [facility] CenterU[facility] Epithelial Wksqv9332-92-32 18:05:00 * Test Item Value Reference Range Interpretation Comments Urine Epithelial Cells (test code = 49476-5) FEW NONE [facility] CenterUrine color cvbqxgctoeocd0059-24-49 16:40:00* Test Item Value Reference Range Interpretation Comments Urine Color (test code = 5778-6) YELLOW YELLOW [facility] CenterUrine wfmwbgg6353-81-27 16:40:00* Test Item Value Reference Range Interpretation Comments Urine Clarity (test code = 84482-9) CLEAR CLEAR [facility] gravity of Urine by Test strip 2019-09-22 16:40:00* Test Item Value Reference Range Interpretation Comments Urine Specific [place] (test code = 5811-5) 1.010 1.010-1.02 5 [facility] CenterU[facility] pH measurement by automated test paljx7252-70-17 16:40:00* Test Item Value Reference Range Interpretation Comments Urine pH (test code = 84839-4) 7 5-7 [facility] CenterUrine leukocyte esterase detection by nypzkckq7451-56-18 16:40:00* Test Item Value Reference Range Interpretation Comments Urine Leukocyte Esterase (test code = 5799-2) NEGATIVE NEGATIVE [facility] CenterU[facility] nitrite uiiyvunji3270-18-23 16:40:00* Test Item Value Reference Range Interpretation Comments Urine Nitrite (test code = 19055-3) NEGATIVE NEGATIVE [facility] CenterUrine protein measurement by test strip (mass/volume)2019-09-22 16:40:00* Test Item Value Reference Range Interpretation Comments Urine Protein (test code = 5804-0) 1+ NEGATIVE [facility] CenterUrine glucose ualjuwwbs0287-49-62 16:40:00* Test Item Value Reference Range Interpretation Comments Urine Glucose (UA) (test code = 2349-9) NEGATIVE NEGATIVE [facility] CenterUrine ketones detection by automated test xtchq5909-33-84 16:40:00* Test Item Value Reference Range Interpretation Comments Urine Ketones (test code = 85369-2) NEGATIVE NEGATIVE [facility] CenterUrine urobilinogen measurement by test strip (mass/volume)2019-09-22 16:40:00* Test Item Value Reference Range Interpretation Comments Urine Urobilinogen (test code = 85869-4) 0.2 0.2-1 [facility] CenterU[facility] total bilirubin measurement (mass/volume)2019-09-22 16:40:00* Test Item Value Reference Range Interpretation Comments Urine Bilirubin (test code = 1978-6) NEGATIVE NEGATIVE [facility] CenterUrine erythrocytes mdifyjjeg1474-77-81 16:40:00* Test Item Value Reference Range Interpretation Comments Urine Blood (test code = 52045-1) 1+ NEGATIVE [facility] CenterAutomated urine sediment leukocyte count by microscopy (number/high power field)2019-09-22 16:40:00* Test Item Value Reference Range Interpretation Comments Urine WBC (test code = 5821-4) 6-10 0-5 [facility] CenterErythrocytes detection in urine sediment by light ymbenwrefc7188-70-74 16:40:00* Test Item Value Reference Range Interpretation Comments Urine RBC (test code = 63146-1) 0-5 0-5 [facility] CenterBacteria detection in urine sediment by light yedrxtupbb7159-95-88 16:40:00* Test Item Value Reference Range Interpretation Comments Urine Bacteria (test code = 00869-0) RARE NONE [facility] CenterEpithelial cells detection in urine sediment by light jhnqsxxstw4289-21-33 16:40:00* Test Item Value Reference Range Interpretation Comments Urine Epithelial Cells (test code = 61676-4) FEW NONE [facility] CenterUrine color cronewskojqag8037-18-58 16:40:00* Test Item Value Reference Range Interpretation Comments Urine Color (test code = 5778-6) YELLOW YELLOW [facility] CenterUrine oopzcad2229-74-00 16:40:00* Test Item Value Reference Range Interpretation Comments Urine Clarity (test code = 38850-7) CLEAR CLEAR [facility] gravity of Urine by Test strip 2019-09-22 16:40:00* Test Item Value Reference Range Interpretation Comments Urine Specific [place] (test code = 5811-5) 1.010 1.010-1.02 5 [facility] CenterUrine pH measurement by automated test cjoeo9459-35-94 16:40:00* Test Item Value Reference Range Interpretation Comments Urine pH (test code = 82381-3) 7 5-7 [facility] CenterUrine leukocyte esterase detection by vebzekrs6325-71-98 16:40:00* Test Item Value Reference Range Interpretation Comments Urine Leukocyte Esterase (test code = 5799-2) NEGATIVE NEGATIVE [facility] CenterUrine nitrite qzfqujsnu7393-43-27 16:40:00* Test Item Value Reference Range Interpretation Comments Urine Nitrite (test code = 61849-7) NEGATIVE NEGATIVE [facility] CenterUrine protein measurement by test strip (mass/volume)2019-09-22 16:40:00* Test Item Value Reference Range Interpretation Comments Urine Protein (test code = 5804-0) 1+ NEGATIVE [facility] CenterUrine glucose tghrigdik7754-60-54 16:40:00* Test Item Value Reference Range Interpretation Comments Urine Glucose (UA) (test code = 2349-9) NEGATIVE NEGATIVE [facility] CenterUrine ketones detection by automated test wbnrq5949-27-54 16:40:00* Test Item Value Reference Range Interpretation Comments Urine Ketones (test code = 69704-0) NEGATIVE NEGATIVE [facility] CenterUrine urobilinogen measurement by test strip (mass/volume)2019-09-22 16:40:00* Test Item Value Reference Range Interpretation Comments Urine Urobilinogen (test code = 26607-9) 0.2 0.2-1 [facility] CenterUrine total bilirubin measurement (mass/volume)2019-09-22 16:40:00* Test Item Value Reference Range Interpretation Comments Urine Bilirubin (test code = 1978-6) NEGATIVE NEGATIVE [facility] CenterUrine erythrocytes xduvrfhns2148-97-64 16:40:00* Test Item Value Reference Range Interpretation Comments Urine Blood (test code = 37740-7) 1+ NEGATIVE [facility] CenterAutomated urine sediment leukocyte count by microscopy (number/high power field)2019-09-22 16:40:00* Test Item Value Reference Range Interpretation Comments Urine WBC (test code = 5821-4) 6-10 0-5 [facility] CenterErythrocytes detection in urine sediment by light ikjeodohrb4448-91-21 16:40:00* Test Item Value Reference Range Interpretation Comments Urine RBC (test code = 68964-2) 0-5 0-5 [facility] CenterBacteria detection in urine sediment by light fkieycgilm8575-28-77 16:40:00* Test Item Value Reference Range Interpretation Comments Urine Bacteria (test code = 93899-6) RARE NONE [facility] CenterEpithelial cells detection in urine sediment by light nbzhjhatuj4130-22-41 16:40:00* Test Item Value Reference Range Interpretation Comments Urine Epithelial Cells (test code = 55676-0) FEW NONE [facility] CenterMRI BRAIN BY2515-29-12 16:23:00 [facility] [place] [address] Patient Name: MIGUEL FONTENOT MR #: [id number] : 07/1935 Age/Sex: 84/F Req #: [id number] [facility] Physician: RODNEY ROSADO MD Ordered by: ERICKA GREENE MD Report #: [id number] Location: MED/SURG2 Room/Bed: [facility] [...] ERICKA GREENE MD CHEST SINGLE (PORTABLE)2019-09-22 13:34:00 [place] [address] Patient Name: MIGUEL FONTENOT MR #: [id number] : 1935 Age/Sex: 84/F Req #: [id number] Adm Physician: Ordered by: LOY SO NP Report #: [id number] Location: ER Room/Bed: Procedure: 0125-0 021 DX/CHEST [...] ar subsegmental atelectasis. Signed by: Dr. Barron Nog i, M.D. on 09/22/2019 1:36 PM Dictated By: QUE francis Signed By: QUE JACKSON MD, MD on 09/22/191335 Transcribed By: YAQUELIN on 09/22/191335 COPY TO: LOY SO [employer]PERATIONS TRAINER Prothrombin Time 2019-09-22 13:06:00* Test Item Value Reference Range Interpretation Comments Prothrombin Time (test code = 5902-2) 14.0 11.9-14.5 [facility] CenterProthromb Time International Ratio 2019-09-22 13:06:00* Test Item Value Reference Range Interpretation Comments Prothromb Time International Ratio (test code = 6301-6) 1.03 Oral Anticoagulant Therapy INR Values:1. Low Intensity Therapy 1.5 - 2.02 . Moderate Intensity Therapy 2.0 - 3.03. High Intensity Therapy(1) 2.5 - 3. 54. High Intensity Therapy(2) 3.0 - 4.05. Panic Value INR > 5.0 [facility] CenterActivated Partial Thromboplast Time 2019-09-22 13:06:00* Test Item Value Reference Range Interpretation Comments Activated Partial Thromboplast Time (test code = 55210-1) 35.5 23.8-35.5 [facility] CenterProthrombin Vbul0047-89-17 13:06:00* Test Item Value Reference Range Interpretation Comments Prothrombin Time (test code = 5902-2) 14.0 11.9-14.5 [facility] CenterProthromb Time International Ratio 2019-09-22 13:06:00* Test Item Value Reference Range Interpretation Comments Prothromb Time International Ratio (test code = 6301-6) 1.03 Oral Anticoagulant Therapy INR Values:1. Low Intensity Therapy 1.5 - 2.02 . Moderate Intensity Therapy 2.0 - 3.03. High Intensity Therapy(1) 2.5 - 3. 54. High Intensity Therapy(2) 3.0 - 4.05. Panic Value INR > 5.0 [facility] CenterActivated Partial Thromboplast Time 2019-09-22 13:06:00* Test Item Value Reference Range Interpretation Comments Activated Partial Thromboplast Time (test code = 24056-2) 35.5 23.8-35.5 [facility] CenterCT BRAIN JK7427-84-38 12:42:00 [facility] [address] [place] [address] Patient Name: MIGUEL FONTENOT MR #: [id number] : 07/1935 Age/Sex: 84/F Req #: [id number] Adm Physician: Ordered by: LOY SO OPERATIONS TRAINER Report #: [id number] Location: ER Room/Bed: Procedure: 0125-[address]/CT BRAIN WO Exam Date: Exam Time: REPORT STATUS: Signed Exam: Head CT witho ut contrast History: Stroke Comparison studies: Head CT 05/15/2018 Brandon hnique: Axial images were obtained from the skull base to the vertex. Don l and sagittal images reconstructed from the [...] By: YAQUELIN on 09/22/191245 COPY TO: LOY SO NP Blood Asczqpr9794-81-29 17:23:00* Test Item Value Reference Range Interpretation Comments Blood Culture (test code = 08158834) NO GROWTH AFTER 72 HOURS [facility] DistrictFO[facility] RIGHT BWAYENUX0431-14-58 19:38:00 [facility] [address] [place] [address] Patient Name: MIGUEL FONTENOT MR #: [id number] : 07/1935 Age/Sex: 83/F Req #: [id number] Adm Physician: RODNEY ROSADO MD Ordered by: RODNEY ROSADO MD Report #: [id number] Location: MED/SURG3 Room/Bed: [facility] Procedure: [id number] DX/FOOT RIGHT COMPLETE Exam Date: 11/13/18 Exam Time: 183 REPORT STATUS: Signed RIGHT FOOT - 3 [...] By: YAQUELIN on 11/13/181943 COPY TO: RODNEY ROSADO MD Uric Wvwp8895-32-86 18:28:00* Test Item Value Reference Range Interpretation Comments Uric Acid (test code = 3084-1) 6.3 2.6-8.0 [facility] Ahnyh0788-07-94 06:42:00* Test Item Value Reference Range Interpretation Comments Sodium Level (test code = 2951-2) 142 136-145 [facility] Hjycu3205-81-68 06:42:00* Test Item Value Reference Range Interpretation Comments Potassium Level (test code = 2823-3) 3.9 3.5-5.1 [facility] CenterChloride Pnurh6284-24-49 06:42:00* Test Item Value Reference Range Interpretation Comments Chloride Level (test code = 2075-0) 108 98-107 H [facility] CenterCarbon Dioxide Bodpf9544-60-85 06:42:00* Test Item Value Reference Range Interpretation Comments Carbon Dioxide Level (test code = 2028-9) 26 22-29 [facility] CenterAnion Tcj7518-05-82 06:42:00* Test Item Value Reference Range Interpretation Comments Anion Gap (test code = 12728-5) 11.9 8-16 [facility] CenterBlood Urea Gglbqvlh5913-09-24 06:42:00* Test Item Value Reference Range Interpretation Comments Blood Urea Nitrogen (test code = 3094-0) 24 7-26 [facility] CenterCreatinine2019-03-18 06:42:00* Test Item Value Reference Range Interpretation Comments Creatinine (test code = 2160-0) 5.30 0.57-1.11 H [facility] CenterBUN/Creatinine Vypaa3211-37-00 06:42:00* Test Item Value Reference Range Interpretation Comments BUN/Creatinine Ratio (test code = 3097-3) 5 6-25 L [facility] CenterEstimat Glomerular Filtration Rate 2018-11-13 06:42:00* Test Item Value Reference Range Interpretation Comments Estimat Glomerular Filtration Rate (test code = 981540853) 8 >60 L Ranges were taken from the National Kidney Disease Education Program and the [facility] Kidney Foundation literature.Reference ranges:60 or greater: Stgxzj14-45 ( for 3 consecutive months): Chronic kidney disease 15 or less: Kidney failureUniversity Medical CenterGlucose Cnmgb8158-09-02 06:42:00* Test Item Value Reference Range Interpretation Comments Glucose Level (test code = OKK6836) 104 74-118 [facility] CenterCalcium Ckklp3429-27-04 06:42:00* Test Item Value Reference Range Interpretation Comments Calcium Level (test code = 46660-5) 7.9 8.4-10.2 L [facility] CenterWhite Blood Igayy5913-07-07 06:30:00* Test Item Value Reference Range Interpretation Comments White Blood Count (test code = 6690-2) 5.78 4.8-10.8 [facility] CenterRed Blood Cngin9555-57-69 06:30:00* Test Item Value Reference Range Interpretation Comments Red Blood Count (test code = 789-8) 4.09 3.6-5.1 [facility] CenterHemoglobin2019-03-18 06:30:00* Test Item Value Reference Range Interpretation Comments Hemoglobin (test code = 50194-8) 11.8 12.0-16.0 L [facility] CenterHematocrit2019-03-18 06:30:00* Test Item Value Reference Range Interpretation Comments Hematocrit (test code = 4544-3) 38.5 34.2-44.1 [facility] CenterMean Corpuscular Dqcvjh4321-37-15 06:30:00* Test Item Value Reference Range Interpretation Comments Mean Corpuscular Volume (test code = 787-2) 94.1 81-99 [facility] CenterMean Corpuscular Cszlmxqljc9686-57-69 06:30:00* Test Item Value Reference Range Interpretation Comments Mean Corpuscular Hemoglobin (test code = 785-6) 28.9 28-32 [facility] CenterMean Corpuscular Hemoglobin Concent 2018-11-13 06:30:00* Test Item Value Reference Range Interpretation Comments Mean Corpuscular Hemoglobin Concent (test code = 786-4) 30.6 31-35 L [facility] CenterRed Cell Distribution Qcpjr4475-65-06 06:30:00* Test Item Value Reference Range Interpretation Comments Red Cell Distribution Width (test code = 85096-0) 17.5 11.7 -14.4 H [facility] CenterPlatelet Vejoi5992-34-30 06:30:00* Test Item Value Reference Range Interpretation Comments Platelet Count (test code = 777-3) 144 140-360 [facility] CenterNeutrophils (%) (Auto)2018-11-13 06:30:00 * Test Item Value Reference Range Interpretation Comments Neutrophils (%) (Auto) (test code = 04129-8) 63.9 38.7-80.0 [facility] CenterLymphocytes (%) (Auto)2018-11-13 06:30:00 * Test Item Value Reference Range Interpretation Comments Lymphocytes (%) (Auto) (test code = 736-9) 19.9 18.0-39.1 [facility] CenterMonocytes (%) (Auto)2018-11-13 06:30:00* Test Item Value Reference Range Interpretation Comments Monocytes (%) (Auto) (test code = 5905-5) 9.3 4.4-11.3 [facility] CenterEosinophils (%) (Auto)2018-11-13 06:30:00 * Test Item Value Reference Range Interpretation Comments Eosinophils (%) (Auto) (test code = 713-8) 6.1 0.0-6.0 H [facility] CenterBasophils (%) (Auto)2018-11-13 06:30:00* Test Item Value Reference Range Interpretation Comments Basophils (%) (Auto) (test code = 706-2) 0.5 0.0-1.0 [facility] CenterIM GRANULOCYTES %2018-11-13 06:30:00* Test Item Value Reference Range Interpretation Comments IM GRANULOCYTES % (test code = IM GRANULOCYTES %) 0.3 0.0- 1.0 [facility] CenterNeutrophils # (Auto)2018-11-13 06:30:00* Test Item Value Reference Range Interpretation Comments Neutrophils # (Auto) (test code = 751-8) 3.7 2.1-6.9 [facility] CenterLymphocytes # (Auto)2018-11-13 06:30:00* Test Item Value Reference Range Interpretation Comments Lymphocytes # (Auto) (test code = 73372-7) 1.2 1.0-3.2 [facility] CenterMonocytes # (Auto)2018-11-13 06:30:00* Test Item Value Reference Range Interpretation Comments Monocytes # (Auto) (test code = 742-7) 0.5 0.2-0.8 [facility] CenterEosinophils # (Auto)2018-11-13 06:30:00* Test Item Value Reference Range Interpretation Comments Eosinophils # (Auto) (test code = 711-2) 0.4 0.0-0.4 [facility] CenterBasophils # (Auto)2018-11-13 06:30:00* Test Item Value Reference Range Interpretation Comments Basophils # (Auto) (test code = 704-7) 0.0 0.0-0.1 [facility] CenterAbsolute Immature Granulocyte (auto 2018-11-13 06:30:00* Test Item Value Reference Range Interpretation Comments Absolute Immature Granulocyte (auto (karo t code = Absolute Immature Granulocyte (auto) 0.02 0-0.1 [facility] CenterTotal Ykvyvolsc2092-56-41 16:40:00* Test Item Value Reference Range Interpretation Comments Total Bilirubin (test code = 1975-2) 0.3 0.2-1.2 [facility] CenterAspartate Amino Transf (AST/SGOT) 2018-11-12 16:40:00* Test Item Value Reference Range Interpretation Comments Aspartate Amino Transf (AST/SGOT) (test code = Aspartate Amino Transf (AST/SGOT)) 16 5-34 [facility] CenterAlanine Aminotransferase (ALT/SGPT) 2018-11-12 16:40:00* Test Item Value Reference Range Interpretation Comments Alanine Aminotransferase (ALT/SGPT) (test code = 1742-6) 9 0-55 [facility] CenterTotal Ihdrhak8712-22-29 16:40:00* Test Item Value Reference Range Interpretation Comments Total Protein (test code = 2885-2) 7.0 6.5-8.1 [facility] CenterAlbumin2019-03-17 16:40:00* Test Item Value Reference Range Interpretation Comments Albumin (test code = 1751-7) 2.3 3.5-5.0 L [facility] CenterGlobulin2019-03-17 16:40:00* Test Item Value Reference Range Interpretation Comments Globulin (test code = 98955-2) 4.7 2.3-3.5 H [facility] CenterAlbumin/Globulin Pttud0962-06-77 16:40:00 * Test Item Value Reference Range Interpretation Comments Albumin/Globulin Ratio (test code = 1759-0) 0.5 0.8-2.0 L [facility] CenterAlkaline Whxtcdckxdr5899-72-22 16:40:00* Test Item Value Reference Range Interpretation Comments Alkaline Phosphatase (test code = 6768-6) 75 40-150 [facility] Hospitalodium Wepfz5589-11-67 09:12:00* Test Item Value Reference Range Interpretation Comments Sodium Level (test code = 2951-2) 135 136-145 L [facility] CenterPotassium Msqac7439-61-66 09:12:00* Test Item Value Reference Range Interpretation Comments Potassium Level (test code = 2823-3) 4.9 3.5-5.1 [facility] CenterChloride Lbnmf4394-91-01 09:12:00* Test Item Value Reference Range Interpretation Comments Chloride Level (test code = 2075-0) 104 98-107 [facility] CenterCarbon Dioxide Osiaz9215-44-11 09:12:00* Test Item Value Reference Range Interpretation Comments Carbon Dioxide Level (test code = 2028-9) 23 22-29 [facility] CenterAnion Ool4625-59-58 09:12:00* Test Item Value Reference Range Interpretation Comments Anion Gap (test code = 09816-1) 12.9 8-16 [facility] CenterBlood Urea Dfbbrjmc1545-36-72 09:12:00* Test Item Value Reference Range Interpretation Comments Blood Urea Nitrogen (test code = 3094-0) 55 7-26 H [facility] CenterCreatinine2019-01-03 09:12:00* Test Item Value Reference Range Interpretation Comments Creatinine (test code = 2160-0) 6.32 0.57-1.11 H [facility] CenterBUN/Creatinine Nxeje3190-38-25 09:12:00* Test Item Value Reference Range Interpretation Comments BUN/Creatinine Ratio (test code = 3097-3) 9 6-25 [facility] CenterEstimat Glomerular Filtration Rate 2018-08-31 09:12:00* Test Item Value Reference Range Interpretation Comments Estimat Glomerular Filtration Rate (test code = 595347792) 6 >60 L Ranges were taken from the National Kidney Disease Education Program and the [facility] Kid[facility] Foundation literature.Reference ranges:60 or greater: Katvxp47-63 ( for 3 consecutive months): Chronic kidney disease 15 or less: Kidney failureUniversity Medical CenterGlucose Yufzi5030-86-47 09:12:00* Test Item Value Reference Range Interpretation Comments Glucose Level (test code = GEA9018) 108 74-118 [facility] CenterCalcium Bgtho5044-66-21 09:12:00* Test Item Value Reference Range Interpretation Comments Calcium Level (test code = 05097-9) 10.1 8.4-10.2 [facility] CenterWhite Blood Anqag9309-78-83 08:38:00* Test Item Value Reference Range Interpretation Comments White Blood Count (test code = 6690-2) 8.05 4.8-10.8 [facility] CenterRed Blood Olpce8694-20-79 08:38:00* Test Item Value Reference Range Interpretation Comments Red Blood Count (test code = 789-8) 3.30 3.6-5.1 L [facility] CenterHemoglobin2019-01-03 08:38:00* Test Item Value Reference Range Interpretation Comments Hemoglobin (test code = 28693-4) 9.1 12.0-16.0 L [facility] CenterHematocrit2019-01-03 08:38:00* Test Item Value Reference Range Interpretation Comments Hematocrit (test code = 4544-3) 27.7 34.2-44.1 L [facility] CenterMean Corpuscular Ksctjd7979-37-33 08:38:00* Test Item Value Reference Range Interpretation Comments Mean Corpuscular Volume (test code = 787-2) 83.9 81-99 [facility] CenterMean Corpuscular Ekuybkdlga0152-29-03 08:38:00* Test Item Value Reference Range Interpretation Comments Mean Corpuscular Hemoglobin (test code = 785-6) 27.6 28-32 L [facility] CenterMean Corpuscular Hemoglobin Concent 2018-08-31 08:38:00* Test Item Value Reference Range Interpretation Comments Mean Corpuscular Hemoglobin Concent (test code = 786-4) 32.9 31-35 [facility] CenterRed Cell Distribution Chbvz6993-53-60 08:38:00* Test Item Value Reference Range Interpretation Comments Red Cell Distribution Width (test code = 16493-3) 14.7 11.7 -14.4 H [facility] CenterPlatelet Fvhoc7873-51-29 08:38:00* Test Item Value Reference Range Interpretation Comments Platelet Count (test code = 777-3) 105 140-360 L [facility] CenterNeutrophils (%) (Auto)2018-08-31 08:38:00 * Test Item Value Reference Range Interpretation Comments Neutrophils (%) (Auto) (test code = 85231-3) 72.3 38.7-80.0 [facility] CenterLymphocytes (%) (Auto)2018-08-31 08:38:00 * Test Item Value Reference Range Interpretation Comments Lymphocytes (%) (Auto) (test code = 736-9) 16.6 18.0-39.1 L [facility] CenterMonocytes (%) (Auto)2018-08-31 08:38:00* Test Item Value Reference Range Interpretation Comments Monocytes (%) (Auto) (test code = 5905-5) 6.7 4.4-11.3 [facility] CenterEosinophils (%) (Auto)2018-08-31 08:38:00 * Test Item Value Reference Range Interpretation Comments Eosinophils (%) (Auto) (test code = 713-8) 3.2 0.0-6.0 [facility] CenterBasophils (%) (Auto)2018-08-31 08:38:00* Test Item Value Reference Range Interpretation Comments Basophils (%) (Auto) (test code = 706-2) 0.7 0.0-1.0 [facility] CenterIM GRANULOCYTES %2018-08-31 08:38:00* Test Item Value Reference Range Interpretation Comments IM GRANULOCYTES % (test code = IM GRANULOCYTES %) 0.5 0.0- 1.0 [facility] CenterNeutrophils # (Auto)2018-08-31 08:38:00* Test Item Value Reference Range Interpretation Comments Neutrophils # (Auto) (test code = 751-8) 5.8 2.1-6.9 [facility] CenterLymphocytes # (Auto)2018-08-31 08:38:00* Test Item Value Reference Range Interpretation Comments Lymphocytes # (Auto) (test code = 41295-7) 1.3 1.0-3.2 [facility] CenterMonocytes # (Auto)2018-08-31 08:38:00* Test Item Value Reference Range Interpretation Comments Monocytes # (Auto) (test code = 742-7) 0.5 0.2-0.8 [facility] CenterEosinophils # (Auto)2018-08-31 08:38:00* Test Item Value Reference Range Interpretation Comments Eosinophils # (Auto) (test code = 711-2) 0.3 0.0-0.4 [facility] CenterBasophils # (Auto)2018-08-31 08:38:00* Test Item Value Reference Range Interpretation Comments Basophils # (Auto) (test code = 704-7) 0.1 0.0-0.1 [facility] CenterAbsolute Immature Granulocyte (auto 2018-08-31 08:38:00* Test Item Value Reference Range Interpretation Comments Absolute Immature Granulocyte (auto (karo t code = Absolute Immature Granulocyte (auto) 0.04 0-0.1 [facility]He[facility] B Surface Antibody, Quant 2018-08-29 08:17:00* Test Item Value Reference Range Interpretation Comments Hepatitis B Surface Antibody, Quant (test code = 5194-6) 863.2 Status of Immunity Anti-HBs Level Inconsistent with Immunity 0.0 - 9.9Consistent with Immunity >9.9[facility] Core Total Otezpidk8696-04-23 08:17:00* Test Item Value Reference Range Interpretation Comments Hepatitis B Core Total Antibody (test code = 01191-5) Negative [facility] B Surface Qoedjtf5828-18-04 08:17:00* Test Item Value Reference Range Interpretation Comments Hepatitis B Surface Antigen (test code = 5196-1) Negative [facility] B Core IgM Wxuzwcop0889-92-21 08:17:00* Test Item Value Reference Range Interpretation Comments Hepatitis B Core IgM Antibody (test code = 98013-3) Negative [facility] B Surface Antibody, Quant 2018-08-29 08:17:00* Test Item Value Reference Range Interpretation Comments Hepatitis B Surface Antibody, Quant (test code = 5194-6) 863.2 Status of Immunity Anti-HBs Level Inconsistent with Immunity 0.0 - 9.9Consistent with Immunity >9.9[facility] Core Total Kjuhunqn5161-31-56 08:17:00* Test Item Value Reference Range Interpretation Comments Hepatitis B Core Total Antibody (test code = 95295-5) Negative [facility] B Surface Enkgeob6526-68-50 08:17:00* Test Item Value Reference Range Interpretation Comments Hepatitis B Surface Antigen (test code = 5196-1) Negative [facility] B Core IgM Pcimarnx5239-13-86 08:17:00* Test Item Value Reference Range Interpretation Comments Hepatitis B Core IgM Antibody (test code = 95507-0) Negative [facility] Hpphujnuv1800-63-42 07:47:00* Test Item Value Reference Range Interpretation Comments Total Bilirubin (test code = 1975-2) 0.9 0.2-1.2 [facility] CenterAspartate Amino Transf (AST/SGOT) 2018-08-26 07:47:00* Test Item Value Reference Range Interpretation Comments Aspartate Amino Transf (AST/SGOT) (test code = Aspartate Amino Transf (AST/SGOT)) 21 5-34 [facility] CenterAlanine Aminotransferase (ALT/SGPT) 2018-08-26 07:47:00* Test Item Value Reference Range Interpretation Comments Alanine Aminotransferase (ALT/SGPT) (test code = 1742-6) 15 0-55 [facility] CenterTotal Etauvwx7741-76-13 07:47:00* Test Item Value Reference Range Interpretation Comments Total Protein (test code = 2885-2) 5.8 6.5-8.1 L [facility] CenterAlbumin2018-12-29 07:47:00* Test Item Value Reference Range Interpretation Comments Albumin (test code = 1751-7) 2.6 3.5-5.0 L [facility] CenterGlobulin2018-12-29 07:47:00* Test Item Value Reference Range Interpretation Comments Globulin (test code = 21240-2) 3.2 2.3-3.5 [facility] CenterAlbumin/Globulin Myuyp1034-76-01 07:47:00 * Test Item Value Reference Range Interpretation Comments Albumin/Globulin Ratio (test code = 1759-0) 0.8 0.8-2.0 [facility] CenterAlkaline Glzyebhorkh2627-08-93 07:47:00* Test Item Value Reference Range Interpretation Comments Alkaline Phosphatase (test code = 6768-6) 67 40-150 [facility] HospitalPECIAL PROCEDURE IN CATH BSN4893-04-41 16:21:00 [facility] [address] [address] Patient Name: MIGUEL FONTENOT MR #: [id number] : 1935 Age/Sex: 83/F Req #: [id number] Adm Physician: RODNEY ROSADO MD Ordered by: ABRAM WADDELL, KAMI WADDELL Report #: [id number] Location: [facility] Room/Bed: 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 Ultrasound was utilized for vascular access. A permanent image wa s saved to the medical record. Procedure performed using maximal sterile ba rrier technique. Signed by: Dr. Clifton Friedman DO on 09/04/2018 10:23 AM ORIGINAL REPORT Procedure: Tunneled hemodialysis catheter p lacement dated 08/23/2018. Document Management Analyst: None. Medications: Versed 2 mg i ntravenous, [...] placed in the supine position on the al uoroscopic table. 1% lidocaine was administered into [...] tract was serially di lated. Finally, a 16.5-German peel-away sheath was advanced over the wire und er fluoroscopic guidance. A 16 German Bard 23 cm tip to cuff split tip cathet er was then advanced through the peel-away sheath. This was noted to be too lo ng. At this point 2 Amplatz superstiff wires were then placed through the two lumens and a new 16 German Bard split tip 19 cm long tip [...] of a tunneled dual-lumen hemodi alysis catheter (16-German Bard split tip, 19-cm tip-cuff length) by a right i nternal jugular approach. The catheter is OK for immediate use. Signed b y: Dr. Clifton Friedman DO on 08/24/2018 4:30 PM Dictated By: CLIFTON FRIEDMAN DO 1023 Transcribed By: YAQUELIN on 08/31/18 1348 COPY TO: KAMI VALVERDE CHEST SINGLE (PORTABLE)2018-08-23 15:15:[address] [address] Patient Name: MIGUEL FONTENOT MR #: [id number] : 1935 Age/Sex: 83/F Req #: [id number] Adm Physician: RODNEY ROSADO MD Ordered by: RODNEY ROSADO MD Report #: [id number] Location: [facility] Room/Bed: [address] [address] Procedure: 1226- 0061 DX/CHEST SINGLE (PORTABLE) Exam Date: 08/23/18 Exam Time: 1435 REPORT STATUS: Sign ed PROCEDURE: CHEST SINGLE (PORTABLE) COMPARISON: Patients [facility], DX, CHEST SINGLE (PORTABLE), 05/20/2018, 6:04. [...] PENELOPE on 08/23/18 1515 COPY TO: RODNEY ROSADO MD Prothrombin Fbre3824-63-50 05:30:00* Test Item Value Reference Range Interpretation Comments Prothrombin Time (test code = 5902-2) 13.7 11.9-14.5 [facility] CenterProthromb Time International Ratio 2018-08-23 05:30:00* Test Item Value Reference Range Interpretation Comments Prothromb Time International Ratio (test code = 6301-6) 0.96 Oral Anticoagulant Therapy INR Values:1. Low Intensity Therapy 1.5 - 2.02 . Moderate Intensity Therapy 2.0 - 3.03. High Intensity Therapy(1) 2.5 - 3. 54. High Intensity Therapy(2) 3.0 - 4.05. Panic Value INR > 5.0 [facility] CenterProthrombin Oowo7831-64-27 05:30:00* Test Item Value Reference Range Interpretation Comments Prothrombin Time (test code = 5902-2) 13.7 11.9-14.5 [facility] CenterProthromb Time International Ratio 2018-08-23 05:30:00* Test Item Value Reference Range Interpretation Comments Prothromb Time International Ratio (test code = 6301-6) 0.96 Oral Anticoagulant Therapy INR Values:1. Low Intensity Therapy 1.5 - 2.02 . Moderate Intensity Therapy 2.0 - 3.03. High Intensity Therapy(1) 2.5 - 3. 54. High Intensity Therapy(2) 3.0 - 4.05. Panic Value INR > 5.0 [facility] CenterCT ABDOMEN/PELVIS EG7803-47-42 09:50:00 [facility] [address] [address] Patient Name: MIGUEL FONTENOT MR #: [id number] : 07/1935 Age/Sex: 83/F Req #: [id number] Adm Physician: RODNEY ROSADO MD Ordered by: ABRAM WADDELL, KAMI WADDELL Report #: [id number] Location: [facility] Room/Bed: [address] [address] Procedure: 1225-[address]/CT ABDOMEN/PELVIS WO Exam Date: Exam Time: REPORT STATUS: Signed ADDENDUM #1 Impression: 7. Lung nodules as described above. Re commend follow-up with dedicated low-dose chest CT in 6 months. Signed by : Dr. Griffin Cm MD on 08/22/2018 10:37 AM ORIGINAL REPORT [...] be excluded Signed b y: Dr. Griffin Cm MD on 08/22/2018 10:09 AM Dictated By: GRIFFIN Byers MD 1037 Transcribed B y: YAQUELIN on 08/22/18 1009 COPY TO: KAMI VALVERDE Activated Partial Thromboplast Jodg0975-51-43 18:07:00* Test Item Value Reference Range Interpretation Comments Activated Partial Thromboplast Time (test code = 67322-9) 29.2 23.8-35.5 [facility] CenterActivated Partial Thromboplast Time 2018-08-21 18:07:00* Test Item Value Reference Range Interpretation Comments Activated Partial Thromboplast Time (test code = 49825-1) 29.2 23.8-35.5 [facility] B Surface Antibody, Quant 2018-05-21 14:59:00* Test Item Value Reference Range Interpretation Comments Hepatitis B Surface Antibody, Quant (test code = 5194-6) 828.4 Immunity>9.9 Status of Immunity Anti-HBs Level Inconsistent with Immunity 0.0 - 9.9Consistent with Immunity >9.9[facility] Core Total Tbtovlfy0845-57-57 14:59:00* Test Item Value Reference Range Interpretation Comments Hepatitis B Core Total Antibody (test code = 08613-7) Negative Negative Performed at: - Lab[address] [id number] Director: Winston Mcmillan MD, Phone: [phone] [facility] B Surface Piokrnf0645-88-96 14:59:00* Test Item Value Reference Range Interpretation Comments Hepatitis B Surface Antigen (test code = 5196-1) Negative Negat bhavna [facility] CenterWhite Blood Lslkr3778-44-67 05:13:00* Test Item Value Reference Range Interpretation Comments White Blood Count (test code = 6690-2) 12.40 4.8-10.8 H VERIFIED PREVIOUS RESULTSUniversity Medical CenterRed Blood Count 2018-05-21 05:13:00* Test Item Value Reference Range Interpretation Comments Red Blood Count (test code = 789-8) 2.64 3.6-5.1 L [facility] CenterHemoglobin2018-09-23 05:13:00* Test Item Value Reference Range Interpretation Comments Hemoglobin (test code = 14936-2) 8.0 12.0-16.0 L [facility] CenterHematocrit2018-09-23 05:13:00* Test Item Value Reference Range Interpretation Comments Hematocrit (test code = 4544-3) 25.1 34.2-44.1 L [facility] CenterMean Corpuscular Mehuvl4115-65-83 05:13:00* Test Item Value Reference Range Interpretation Comments Mean Corpuscular Volume (test code = 787-2) 95.1 81-99 [facility] CenterMean Corpuscular Rsrsbezvon7718-56-75 05:13:00* Test Item Value Reference Range Interpretation Comments Mean Corpuscular Hemoglobin (test code = 785-6) 30.3 28-32 [facility] CenterMean Corpuscular Hemoglobin Concent 2018-05-21 05:13:00* Test Item Value Reference Range Interpretation Comments Mean Corpuscular Hemoglobin Concent (test code = 786-4) 31.9 31-35 [facility] CenterRed Cell Distribution Ycdgv8964-98-64 05:13:00* Test Item Value Reference Range Interpretation Comments Red Cell Distribution Width (test code = 48375-9) 17.4 11.7 -14.4 H [facility] CenterPlatelet Jfbnw5941-34-77 05:13:00* Test Item Value Reference Range Interpretation Comments Platelet Count (test code = 777-3) 192 140-360 VERIFIED PREVIOUS RESULTSUniversity Medical CenterNeutrophils (%) (Auto)2018-05-21 05:13:00* Test Item Value Reference Range Interpretation Comments Neutrophils (%) (Auto) (test code = 05445-2) 83.1 38.7-80.0 H [facility] CenterLymphocytes (%) (Auto)2018-05-21 05:13:00 * Test Item Value Reference Range Interpretation Comments Lymphocytes (%) (Auto) (test code = 736-9) 10.2 18.0-39.1 L [facility] CenterMonocytes (%) (Auto)2018-05-21 05:13:00* Test Item Value Reference Range Interpretation Comments Monocytes (%) (Auto) (test code = 5905-5) 5.7 4.4-11.3 [facility] CenterEosinophils (%) (Auto)2018-05-21 05:13:00 * Test Item Value Reference Range Interpretation Comments Eosinophils (%) (Auto) (test code = 713-8) 0.2 0.0-6.0 [facility] CenterBasophils (%) (Auto)2018-05-21 05:13:00* Test Item Value Reference Range Interpretation Comments Basophils (%) (Auto) (test code = 706-2) 0.2 0.0-1.0 [facility] CenterIM GRANULOCYTES %2018-05-21 05:13:00* Test Item Value Reference Range Interpretation Comments IM GRANULOCYTES % (test code = IM GRANULOCYTES %) 0.6 0.0- 1.0 [facility] CenterNeutrophils # (Auto)2018-05-21 05:13:00* Test Item Value Reference Range Interpretation Comments Neutrophils # (Auto) (test code = 751-8) 10.3 2.1-6.9 H [facility] CenterLymphocytes # (Auto)2018-05-21 05:13:00* Test Item Value Reference Range Interpretation Comments Lymphocytes # (Auto) (test code = 27528-8) 1.3 1.0-3.2 [facility] CenterMonocytes # (Auto)2018-05-21 05:13:00* Test Item Value Reference Range Interpretation Comments Monocytes # (Auto) (test code = 742-7) 0.7 0.2-0.8 [facility] CenterEosinophils # (Auto)2018-05-21 05:13:00* Test Item Value Reference Range Interpretation Comments Eosinophils # (Auto) (test code = 711-2) 0.0 0.0-0.4 [facility] CenterBasophils # (Auto)2018-05-21 05:13:00* Test Item Value Reference Range Interpretation Comments Basophils # (Auto) (test code = 704-7) 0.0 0.0-0.1 [facility] CenterAbsolute Immature Granulocyte (auto 2018-05-21 05:13:00* Test Item Value Reference Range Interpretation Comments Absolute Immature Granulocyte (auto (karo t code = Absolute Immature Granulocyte (auto) 0.08 0-0.1 [facility] CenterBlood Vajnpmb9228-24-56 12:15:00* Test Item Value Reference Range Interpretation Comments Blood Culture (test code = 41870707) NO GROWTH AFTER 5 DAYS, FINAL REPORT [facility] Nelsyvp3230-06-31 12:15:00* Test Item Value Reference Range Interpretation Comments Blood Culture (test code = 31883211) NO GROWTH AFTER 5 DAYS, FINAL REPORT [facility] CenterCHEST SINGLE (PORTABLE)2018-05-20 06:33:00 [place] [address] Patient Name: MIGUEL FONTENOT MR #: [id number] : 1935 Age/Sex: 82/F Req #: [id number] Adm Physician: CHRISTEL HATHAWAY MD Ordered by: ZEINA ALBRIGHT NP Report #: [id number] Location: MED/SURG2 Room/Bed: [facility] [place] Procedure: 0922-0 003 DX/CHEST SINGLE (PORTABLE) Exam [...] on 05/20/18634 COPY T O: ZEINA ALBRIGHT OPERATIONS TRAINER Sodium Mvkfu7812-02-31 05:27:00* Test Item Value Reference Range Interpretation Comments Sodium Level (test code = 2951-2) 139 136-145 [facility] CenterPotassium Brqjo6228-65-58 05:27:00* Test Item Value Reference Range Interpretation Comments Potassium Level (test code = 2823-3) 3.6 3.5-5.1 [facility] CenterChloride Yjbkc2739-66-39 05:27:00* Test Item Value Reference Range Interpretation Comments Chloride Level (test code = 2075-0) 104 98-107 [facility] CenterCarbon Dioxide Kgbsd3369-66-84 05:27:00* Test Item Value Reference Range Interpretation Comments Carbon Dioxide Level (test code = 2028-9) - [facility] CenterAnion Kgr6316-84-04 05:27:00* Test Item Value Reference Range Interpretation Comments Anion Gap (test code = 17979-1) 16.6 8-16 H [facility] CenterBlood Urea Uadctnbj7472-34-93 05:27:00* Test Item Value Reference Range Interpretation Comments Blood Urea Nitrogen (test code = 3094-0) 20 7-26 [facility] CenterCreatinine2018-09-22 05:27:00* Test Item Value Reference Range Interpretation Comments Creatinine (test code = 2160-0) 5.17 0.57-1.11 H [facility] CenterBUN/Creatinine Vsgtb0924-66-78 05:27:00* Test Item Value Reference Range Interpretation Comments BUN/Creatinine Ratio (test code = 3097-3) 4 6-25 L [facility] CenterEstimat Glomerular Filtration Rate 2018-05-20 05:27:00* Test Item Value Reference Range Interpretation Comments Estimat Glomerular Filtration Rate (test code = 987437207) 8 >60 L Ranges were taken from the National Kidney Disease Education Program and the [facility] Kidney Foundation literature.Reference ranges:60 or greater: Cmjpcb73-60 ( for 3 consecutive months): Chronic kidney disease 15 or less: Kidney failureUniversity Medical CenterGlucose Xmutk1408-92-18 05:27:00* Test Item Value Reference Range Interpretation Comments Glucose Level (test code = JQM7411) 194 74-118 H [facility] CenterCalcium Apbkh2590-74-65 05:27:00* Test Item Value Reference Range Interpretation Comments Calcium Level (test code = 16551-7) 8.3 8.4-10.2 L [facility] CenterCreatine Kinase JT7088-14-28 11:10:00* Test Item Value Reference Range Interpretation Comments Creatine Kinase MB (test code = 63298-9) 0.70 0-5.0 [facility] CenterTroponin Z5394-12-66 11:10:00* Test Item Value Reference Range Interpretation Comments Troponin I (test code = MGG3536) 0.006 0-0.300 [facility] CenterCreatine Kinase YO8954-08-55 11:10:00* Test Item Value Reference Range Interpretation Comments Creatine Kinase MB (test code = 03073-7) 0.70 0-5.0 [facility] D4796-99-83 11:10:00* Test Item Value Reference Range Interpretation Comments Troponin I (test code = BUG0152) 0.006 0-0.300 [facility] CenterCreatine Kinase CS2178-95-00 11:10:00* Test Item Value Reference Range Interpretation Comments Creatine Kinase MB (test code = 41353-9) 0.70 0-5.0 [facility] CenterTroponin Q1100-99-36 11:10:00* Test Item Value Reference Range Interpretation Comments Troponin I (test code = XAB9367) 0.006 0-0.300 [facility] CenterMagnesium Ycbcu9555-00-31 11:07:00* Test Item Value Reference Range Interpretation Comments Magnesium Level (test code = 71176-7) 1.7 1.3-2.1 [facility] CenterTotal Axwiihfws5031-69-64 11:07:00* Test Item Value Reference Range Interpretation Comments Total Bilirubin (test code = 1975-2) 0.9 0.2-1.2 [facility] CenterAspartate Amino Transf (AST/SGOT) 2018-05-19 11:07:00* Test Item Value Reference Range Interpretation Comments Aspartate Amino Transf (AST/SGOT) (test code = Aspartate Amino Transf (AST/SGOT)) 18 5-34 [facility] CenterAlanine Aminotransferase (ALT/SGPT) 2018-05-19 11:07:00* Test Item Value Reference Range Interpretation Comments Alanine Aminotransferase (ALT/SGPT) (test code = 1742-6) 12 0-55 [facility] CenterTotal Nicmjoo0908-42-62 11:07:00* Test Item Value Reference Range Interpretation Comments Total Protein (test code = 2885-2) 6.5 6.5-8.1 [facility] CenterAlbumin2018-09-21 11:07:00* Test Item Value Reference Range Interpretation Comments Albumin (test code = 1751-7) 2.8 3.5-5.0 L [facility] CenterGlobulin2018-09-21 11:07:00* Test Item Value Reference Range Interpretation Comments Globulin (test code = 94247-5) 3.7 2.3-3.5 H [facility] CenterAlbumin/Globulin Cbhnp6656-73-54 11:07:00 * Test Item Value Reference Range Interpretation Comments Albumin/Globulin Ratio (test code = 1759-0) 0.8 0.8-2.0 [facility] CenterAlkaline Mexlyfzmcrt0686-68-33 11:07:00* Test Item Value Reference Range Interpretation Comments Alkaline Phosphatase (test code = 6768-6) 109 40-150 [facility] CenterCreatine Jmhgts1163-20-10 11:07:00* Test Item Value Reference Range Interpretation Comments Creatine Kinase (test code = 2157-6) 44 29-168 [facility] CenterMagnesium Xphqq0329-79-93 11:07:00* Test Item Value Reference Range Interpretation Comments Magnesium Level (test code = 53180-9) 1.7 1.3-2.1 [facility] CenterCreatine Zymbhl3322-91-93 11:07:00* Test Item Value Reference Range Interpretation Comments Creatine Kinase (test code = 2157-6) 44 29-168 [facility] CenterMagnesium Aqosi8943-02-31 11:07:00* Test Item Value Reference Range Interpretation Comments Magnesium Level (test code = 06118-9) 1.7 1.3-2.1 [facility] CenterCreatine Ioqqhw4816-46-92 11:07:00* Test Item Value Reference Range Interpretation Comments Creatine Kinase (test code = 2157-6) 44 29-168 [facility] CenterIron Iyger1142-60-45 11:06:00* Test Item Value Reference Range Interpretation Comments Iron Level (test code = 2498-4) 84 50-170 [facility] CenterTotal Iron Binding Sbevajwh8103-75-57 11:06:00* Test Item Value Reference Range Interpretation Comments Total Iron Binding Capacity (test code = 2500-7) 280 261-4 78 [facility] CenterPercent Iron Usjbcyruss6412-92-59 11:06:00* Test Item Value Reference Range Interpretation Comments Percent Iron Saturation (test code = 2502-3) 30 15-50 [facility] CenterTransferrin2018-09-21 11:06:00* Test Item Value Reference Range Interpretation Comments Transferrin (test code = 3034-6) 200 180-382 [facility] Fdrir2118-30-32 11:06:00* Test Item Value Reference Range Interpretation Comments Iron Level (test code = 2498-4) 84 50-170 [facility] CenterTotal Iron Binding Afzwlcoh3808-78-21 11:06:00* Test Item Value Reference Range Interpretation Comments Total Iron Binding Capacity (test code = 2500-7) 280 261-4 78 [facility] CenterPercent Iron Wxflxiwfzc3912-18-78 11:06:00* Test Item Value Reference Range Interpretation Comments Percent Iron Saturation (test code = 2502-3) 30 15-50 [facility] CenterTransferrin2018-09-21 11:06:00* Test Item Value Reference Range Interpretation Comments Transferrin (test code = 3034-6) 200 180-382 [facility] Eccwm6513-19-06 11:06:00* Test Item Value Reference Range Interpretation Comments Iron Level (test code = 2498-4) 84 50-170 [facility]Tom[facility] Iron Binding Yxcskcam1527-13-11 11:06:00* Test Item Value Reference Range Interpretation Comments Total Iron Binding Capacity (test code = 2500-7) 280 261-4 78 [facility]Per[facility] Iron Ypxfwajirz8770-57-48 11:06:00* Test Item Value Reference Range Interpretation Comments Percent Iron Saturation (test code = 2502-3) 30 15-50 [facility] CenterTransferrin2018-09-21 11:06:00* Test Item Value Reference Range Interpretation Comments Transferrin (test code = 3034-6) 200 180-382 [facility] CenterProthrombin Pzky6927-06-43 11:05:00* Test Item Value Reference Range Interpretation Comments Prothrombin Time (test code = 5902-2) 14.2 11.9-14.5 [facility] CenterProthromb Time International Ratio 2018-05-19 11:05:00* Test Item Value Reference Range Interpretation Comments Prothromb Time International Ratio (test code = 6301-6) 1.01 Oral Anticoagulant Therapy INR Values:1. Low Intensity Therapy 1.5 - 2.02 . Moderate Intensity Therapy 2.0 - 3.03. High Intensity Therapy(1) 2.5 - 3. 54. High Intensity Therapy(2) 3.0 - 4.05. Panic Value INR > 5.0 [facility] CenterActivated Partial Thromboplast Time 2018-05-19 11:05:00* Test Item Value Reference Range Interpretation Comments Activated Partial Thromboplast Time (test code = 28889-0) 28.6 23.8-35.5 [facility] EKQ6256-81-88 10:59:00* Test Item Value Reference Range Interpretation Comments Urine WBC (test code = 5821-4) NONE 0-5 [facility] OBQ7520-81-90 10:59:00* Test Item Value Reference Range Interpretation Comments Urine RBC (test code = 94214-0) NONE 0-5 [facility] CenterUrine Yvtsvdza0819-04-01 10:59:00* Test Item Value Reference Range Interpretation Comments Urine Bacteria (test code = 21288-9) NONE NONE [facility] CenterUrine Epithelial Kvvpm4443-18-20 10:59:00 * Test Item Value Reference Range Interpretation Comments Urine Epithelial Cells (test code = 94294-4) MODERATE NONE [facility] CenterUrine JDK1520-51-20 10:59:00* Test Item Value Reference Range Interpretation Comments Urine WBC (test code = 5821-4) NONE 0-5 [facility] WBH4720-57-88 10:59:00* Test Item Value Reference Range Interpretation Comments Urine RBC (test code = 58672-5) NONE 0-5 [facility] Cketrkyo0611-84-96 10:59:00* Test Item Value Reference Range Interpretation Comments Urine Bacteria (test code = 08433-3) NONE NONE [facility] CenterUrine Epithelial Ltanz7877-11-45 10:59:00 * Test Item Value Reference Range Interpretation Comments Urine Epithelial Cells (test code = 02283-9) MODERATE NONE [facility] CenterUrine SUS3619-70-89 10:59:00* Test Item Value Reference Range Interpretation Comments Urine WBC (test code = 5821-4) NONE 0-5 [facility] CenterUrine CBU3984-61-46 10:59:00* Test Item Value Reference Range Interpretation Comments Urine RBC (test code = 63838-8) NONE 0-5 [facility] CenterUrine Todvecys9016-97-39 10:59:00* Test Item Value Reference Range Interpretation Comments Urine Bacteria (test code = 20917-9) NONE NONE [facility] CenterUrine Epithelial Txkum6779-76-09 10:59:00 * Test Item Value Reference Range Interpretation Comments Urine Epithelial Cells (test code = 17729-0) MODERATE NONE [facility] CenterUrine Nydfb3435-96-98 10:51:00* Test Item Value Reference Range Interpretation Comments Urine Color (test code = 5778-6) YELLOW YELLOW [facility] CenterUrine Hefbnxj1171-64-01 10:51:00* Test Item Value Reference Range Interpretation Comments Urine Clarity (test code = 86576-9) SL CLOUDY CLEAR [facility] CenterUrine Specific Kbtpxpn9571-15-88 10:51:00 * Test Item Value Reference Range Interpretation Comments Urine Specific [place] (test code = 5811-5) 1.010 1.010-1.02 5 [facility] CenterUrine dJ2704-75-04 10:51:00* Test Item Value Reference Range Interpretation Comments Urine pH (test code = 48982-4) 7 5-7 [facility] CenterUrine Leukocyte Txzioygw9209-37-49 10:51:00* Test Item Value Reference Range Interpretation Comments Urine Leukocyte Esterase (test code = 5799-2) NEGATIVE NEGATIVE [facility] CenterUrine Ndshcvx3664-86-70 10:51:00* Test Item Value Reference Range Interpretation Comments Urine Nitrite (test code = 94396-3) NEGATIVE NEGATIVE [facility] CenterUrine Pmtcpei4434-16-19 10:51:00* Test Item Value Reference Range Interpretation Comments Urine Protein (test code = 5804-0) 2+ NEGATIVE H [facility] CenterUrine Glucose (UA)2018-05-19 10:51:00* Test Item Value Reference Range Interpretation Comments Urine Glucose (UA) (test code = 2349-9) NEGATIVE NEGATIVE [facility] CenterUrine Uqqgxzg1060-59-68 10:51:00* Test Item Value Reference Range Interpretation Comments Urine Ketones (test code = 98695-4) NEGATIVE NEGATIVE [facility] CenterUrine Eohmvdgqamhx8637-05-17 10:51:00* Test Item Value Reference Range Interpretation Comments Urine Urobilinogen (test code = 63081-8) 0.2 0.2-1 [facility] Fxbreywaj6040-10-31 10:51:00* Test Item Value Reference Range Interpretation Comments Urine Bilirubin (test code = 1978-6) NEGATIVE NEGATIVE [facility] Tgeda5649-15-62 10:51:00* Test Item Value Reference Range Interpretation Comments Urine Blood (test code = 32697-6) NEGATIVE NEGATIVE [facility] CenterUrine Cmppv7773-25-50 10:51:00* Test Item Value Reference Range Interpretation Comments Urine Color (test code = 5778-6) YELLOW YELLOW [facility] CenterUrine Agaoclq1254-21-99 10:51:00* Test Item Value Reference Range Interpretation Comments Urine Clarity (test code = 49974-1) SL CLOUDY CLEAR [facility] CenterUrine Specific Xzdlstd4082-19-71 10:51:00 * Test Item Value Reference Range Interpretation Comments Urine Specific [place] (test code = 5811-5) 1.010 1.010-1.02 5 [facility] CenterUrine mU2349-22-53 10:51:00* Test Item Value Reference Range Interpretation Comments Urine pH (test code = 56286-3) 7 5-7 [facility] CenterUrine Leukocyte Jezjlwnk8203-18-97 10:51:00* Test Item Value Reference Range Interpretation Comments Urine Leukocyte Esterase (test code = 5799-2) NEGATIVE NEGATIVE [facility] CenterUrine Ffysame6679-00-79 10:51:00* Test Item Value Reference Range Interpretation Comments Urine Nitrite (test code = 80943-4) NEGATIVE NEGATIVE [facility] CenterUrine Tzdwrrp1815-02-74 10:51:00* Test Item Value Reference Range Interpretation Comments Urine Protein (test code = 5804-0) 2+ NEGATIVE H [facility] CenterUrine Glucose (UA)2018-05-19 10:51:00* Test Item Value Reference Range Interpretation Comments Urine Glucose (UA) (test code = 2349-9) NEGATIVE NEGATIVE [facility] CenterUrine Pgtrwfi6470-91-95 10:51:00* Test Item Value Reference Range Interpretation Comments Urine Ketones (test code = 16362-1) NEGATIVE NEGATIVE [facility] CenterUrine Ipbvnkqfxktf5138-93-21 10:51:00* Test Item Value Reference Range Interpretation Comments Urine Urobilinogen (test code = 12723-8) 0.2 0.2-1 [facility] CenterUrine Dsaxmcryq0292-74-84 10:51:00* Test Item Value Reference Range Interpretation Comments Urine Bilirubin (test code = 1978-6) NEGATIVE NEGATIVE [facility] CenterUrine Decmj3884-99-87 10:51:00* Test Item Value Reference Range Interpretation Comments Urine Blood (test code = 32348-1) NEGATIVE NEGATIVE [facility] CenterUrine Xaslp4687-45-00 10:51:00* Test Item Value Reference Range Interpretation Comments Urine Color (test code = 5778-6) YELLOW YELLOW [facility] CenterUrine Bepxpqo9503-93-89 10:51:00* Test Item Value Reference Range Interpretation Comments Urine Clarity (test code = 58818-1) SL CLOUDY CLEAR [facility] CenterUrine Specific Jpizybu4693-52-06 10:51:00 * Test Item Value Reference Range Interpretation Comments Urine Specific [place] (test code = 5811-5) 1.010 1.010-1.02 5 [facility] CenterUrine uX1095-03-94 10:51:00* Test Item Value Reference Range Interpretation Comments Urine pH (test code = 74135-7) 7 5-7 [facility] CenterUrine Leukocyte Chxwvhlh5055-95-80 10:51:00* Test Item Value Reference Range Interpretation Comments Urine Leukocyte Esterase (test code = 5799-2) NEGATIVE NEGATIVE [facility] CenterUrine Kmhhnyo9947-06-00 10:51:00* Test Item Value Reference Range Interpretation Comments Urine Nitrite (test code = 12001-3) NEGATIVE NEGATIVE [facility] CenterUrine Nohkoow1389-09-83 10:51:00* Test Item Value Reference Range Interpretation Comments Urine Protein (test code = 5804-0) 2+ NEGATIVE H [facility] CenterUrine Glucose (UA)2018-05-19 10:51:00* Test Item Value Reference Range Interpretation Comments Urine Glucose (UA) (test code = 2349-9) NEGATIVE NEGATIVE [facility] CenterUrine Vtujnrt9425-59-42 10:51:00* Test Item Value Reference Range Interpretation Comments Urine Ketones (test code = 00013-4) NEGATIVE NEGATIVE [facility] CenterUrine Sayavcttnbjq7937-98-78 10:51:00* Test Item Value Reference Range Interpretation Comments Urine Urobilinogen (test code = 36891-3) 0.2 0.2-1 [facility] CenterUrine Hlopifbes3018-83-56 10:51:00* Test Item Value Reference Range Interpretation Comments Urine Bilirubin (test code = 1978-6) NEGATIVE NEGATIVE [facility] CenterUrine Uvoxj9249-83-12 10:51:00* Test Item Value Reference Range Interpretation Comments Urine Blood (test code = 20884-1) NEGATIVE NEGATIVE [facility] CenterBlood Pgkvhod4259-96-89 10:07:00* Test Item Value Reference Range Interpretation Comments Blood Culture (test code = 36568866) NO GROWTH AFTER 72 HOURS [facility] CenterPotassium Bgmfc8484-27-80 15:49:00* Test Item Value Reference Range Interpretation Comments Potassium Level (test code = 2823-3) 4.2 3.5-5.1 [facility] Opmvu8105-28-41 05:45:00* Test Item Value Reference Range Interpretation Comments Sodium Level (test code = 2951-2) 144 136-145 [facility] CenterChloride Vcmlo1794-85-47 05:45:00* Test Item Value Reference Range Interpretation Comments Chloride Level (test code = 2075-0) 107 98-107 [facility] CenterCarbon Dioxide Zvcxy5022-35-96 05:45:00* Test Item Value Reference Range Interpretation Comments Carbon Dioxide Level (test code = 2028-9) 27 22-29 [facility] CenterAnion Lpy9857-60-52 05:45:00* Test Item Value Reference Range Interpretation Comments Anion Gap (test code = 07519-2) 12.9 8-16 [facility] CenterBlood Urea Tdnesfzp3795-86-95 05:45:00* Test Item Value Reference Range Interpretation Comments Blood Urea Nitrogen (test code = 3094-0) 15 7-26 [facility] CenterCreatinine2018-09-19 05:45:00* Test Item Value Reference Range Interpretation Comments Creatinine (test code = 2160-0) 4.75 0.57-1.11 H [facility] CenterBUN/Creatinine Wgxkq5439-87-54 05:45:00* Test Item Value Reference Range Interpretation Comments BUN/Creatinine Ratio (test code = 3097-3) 3 6-25 L [facility] CenterEstimat Glomerular Filtration Rate 2018-05-17 05:45:00* Test Item Value Reference Range Interpretation Comments Estimat Glomerular Filtration Rate (test code = 226175027) 9 >60 L Ranges were taken from the National Kidney Disease Education Program and the [facility] literature.Reference ranges:60 or greater: Bfwwpz40-18 ( for 3 consecutive months): Chronic kidney disease 15 or less: Kidney failureUniversity Medical CenterGlucose Sinmr7596-64-20 05:45:00* Test Item Value Reference Range Interpretation Comments Glucose Level (test code = SUO8501) 123 74-118 H [facility] CenterCalcium Jjmld8139-94-62 05:45:00* Test Item Value Reference Range Interpretation Comments Calcium Level (test code = 52441-5) 8.3 8.4-10.2 L [facility] CenterWhite Blood Kbdcv3351-58-40 05:31:00* Test Item Value Reference Range Interpretation Comments White Blood Count (test code = 6690-2) 5.15 4.8-10.8 [facility] CenterRed Blood Cawxk7261-44-80 05:31:00* Test Item Value Reference Range Interpretation Comments Red Blood Count (test code = 789-8) 2.43 3.6-5.1 L [facility] CenterHemoglobin2018-09-19 05:31:00* Test Item Value Reference Range Interpretation Comments Hemoglobin (test code = 95874-8) 7.5 12.0-16.0 L [facility] CenterHematocrit2018-09-19 05:31:00* Test Item Value Reference Range Interpretation Comments Hematocrit (test code = 4544-3) 22.7 34.2-44.1 L Results called to BLANCHE GUTIÉRREZ RN at 0529 on 05/17/18 by Finn Alexis. [place]. [facility] CenterMean Corpuscular Etepfz2412-76-47 05:31:00* Test Item Value Reference Range Interpretation Comments Mean Corpuscular Volume (test code = 787-2) 93.4 81-99 [facility] CenterMean Corpuscular Ecsnzsyzpk7518-94-55 05:31:00* Test Item Value Reference Range Interpretation Comments Mean Corpuscular Hemoglobin (test code = 785-6) 30.9 28-32 [facility] CenterMean Corpuscular Hemoglobin Concent 2018-05-17 05:31:00* Test Item Value Reference Range Interpretation Comments Mean Corpuscular Hemoglobin Concent (test code = 786-4) 33.0 31-35 [facility] CenterRed Cell Distribution Mgbql7400-35-02 05:31:00* Test Item Value Reference Range Interpretation Comments Red Cell Distribution Width (test code = 22953-1) 15.3 11.7 -14.4 H [facility] CenterPlatelet Rtexu0735-39-22 05:31:00* Test Item Value Reference Range Interpretation Comments Platelet Count (test code = 777-3) 185 140-360 [facility] CenterNeutrophils (%) (Auto)2018-05-17 05:31:00 * Test Item Value Reference Range Interpretation Comments Neutrophils (%) (Auto) (test code = 95670-7) 63.6 38.7-80.0 [facility] CenterLymphocytes (%) (Auto)2018-05-17 05:31:00 * Test Item Value Reference Range Interpretation Comments Lymphocytes (%) (Auto) (test code = 736-9) 18.3 18.0-39.1 [facility] CenterMonocytes (%) (Auto)2018-05-17 05:31:00* Test Item Value Reference Range Interpretation Comments Monocytes (%) (Auto) (test code = 5905-5) 13.6 4.4-11.3 H [facility] CenterEosinophils (%) (Auto)2018-05-17 05:31:00 * Test Item Value Reference Range Interpretation Comments Eosinophils (%) (Auto) (test code = 713-8) 3.5 0.0-6.0 [facility] CenterBasophils (%) (Auto)2018-05-17 05:31:00* Test Item Value Reference Range Interpretation Comments Basophils (%) (Auto) (test code = 706-2) 0.6 0.0-1.0 [facility] CenterIM GRANULOCYTES %2018-05-17 05:31:00* Test Item Value Reference Range Interpretation Comments IM GRANULOCYTES % (test code = IM GRANULOCYTES %) 0.4 0.0- 1.0 [facility] CenterNeutrophils # (Auto)2018-05-17 05:31:00* Test Item Value Reference Range Interpretation Comments Neutrophils # (Auto) (test code = 751-8) 3.3 2.1-6.9 [facility] CenterLymphocytes # (Auto)2018-05-17 05:31:00* Test Item Value Reference Range Interpretation Comments Lymphocytes # (Auto) (test code = 42165-9) 0.9 1.0-3.2 L [facility] CenterMonocytes # (Auto)2018-05-17 05:31:00* Test Item Value Reference Range Interpretation Comments Monocytes # (Auto) (test code = 742-7) 0.7 0.2-0.8 [facility] CenterEosinophils # (Auto)2018-05-17 05:31:00* Test Item Value Reference Range Interpretation Comments Eosinophils # (Auto) (test code = 711-2) 0.2 0.0-0.4 [facility] CenterBasophils # (Auto)2018-05-17 05:31:00* Test Item Value Reference Range Interpretation Comments Basophils # (Auto) (test code = 704-7) 0.0 0.0-0.1 [facility] CenterAbsolute Immature Granulocyte (auto 2018-05-17 05:31:00* Test Item Value Reference Range Interpretation Comments Absolute Immature Granulocyte (auto (karo t code = Absolute Immature Granulocyte (auto) 0.02 0-0.1 [facility] CenterVitamin B12 Faqey8148-96-48 10:46:00* Test Item Value Reference Range Interpretation Comments Vitamin B12 Level (test code = 23490-2) 539 213-816 [facility] CenterFolate2018-09-18 10:46:00* Test Item Value Reference Range Interpretation Comments Folate (test code = 2284-8) 7.3 7.0-15.4 [facility] CenterVitamin B12 Jpzdn4469-60-65 10:46:00* Test Item Value Reference Range Interpretation Comments Vitamin B12 Level (test code = 90246-5) 539 213-816 [facility] CenterFolate2018-09-18 10:46:00* Test Item Value Reference Range Interpretation Comments Folate (test code = 2284-8) 7.3 7.0-15.4 [facility] CenterVitamin B12 Mqwsb0301-85-26 10:46:00* Test Item Value Reference Range Interpretation Comments Vitamin B12 Level (test code = 78601-4) 539 213-816 [facility] CenterFolate2018-09-18 10:46:00* Test Item Value Reference Range Interpretation Comments Folate (test code = 2284-8) 7.3 7.0-15.4 [facility] CenterVitamin B12 Tdjsz2445-94-88 10:46:00* Test Item Value Reference Range Interpretation Comments Vitamin B12 Level (test code = 75887-5) 539 213-816 [facility] CenterFolate2018-09-18 10:46:00* Test Item Value Reference Range Interpretation Comments Folate (test code = 2284-8) 7.3 7.0-15.4 [facility] CenterIron Cyvre4252-75-92 10:12:00* Test Item Value Reference Range Interpretation Comments Iron Level (test code = 2498-4) 37 50-170 L [facility] CenterTotal Iron Binding Ukcuuxdc3390-44-51 10:12:00* Test Item Value Reference Range Interpretation Comments Total Iron Binding Capacity (test code = 2500-7) 217 261-4 78 L [facility] CenterPercent Iron Yznpxctxjr1121-70-03 10:12:00* Test Item Value Reference Range Interpretation Comments Percent Iron Saturation (test code = 2502-3) 17 15-50 [facility] CenterTransferrin2018-09-18 10:12:00* Test Item Value Reference Range Interpretation Comments Transferrin (test code = 3034-6) 155 180-382 L [facility] CenterPercent Reticulocyte Luytb6493-80-19 09:58:00* Test Item Value Reference Range Interpretation Comments Percent Reticulocyte Count (test code = 66435-2) 4.5 0.8-2 .2 H [facility] CenterPercent Reticulocyte Lflzd9788-42-02 09:58:00* Test Item Value Reference Range Interpretation Comments Percent Reticulocyte Count (test code = 62018-9) 4.5 0.8-2 .2 [facility] Bphdx6028-71-06 09:58:00* Test Item Value Reference Range Interpretation Comments Percent Reticulocyte Count (test code = 14466-7) 4.5 0.8-2 .2 H [facility] CenterPercent Reticulocyte Qglml1386-30-71 09:58:00* Test Item Value Reference Range Interpretation Comments Percent Reticulocyte Count (test code = 25819-4) 4.5 0.8-2 .2 H [facility] CenterUrine EJR1637-01-54 12:46:00* Test Item Value Reference Range Interpretation Comments Urine WBC (test code = 5821-4) 0-5 0-5 [facility] CenterUrine EFQ8571-49-44 12:46:00* Test Item Value Reference Range Interpretation Comments Urine RBC (test code = 79036-1) 0-5 0-5 [facility] CenterUrine Zreafsca1627-04-24 12:46:00* Test Item Value Reference Range Interpretation Comments Urine Bacteria (test code = 80543-0) NONE NONE [facility] CenterUrine Epithelial Gxatj7621-26-48 12:46:00 * Test Item Value Reference Range Interpretation Comments Urine Epithelial Cells (test code = 39237-8) MANY NONE [facility] CenterUrine Transitional Epithelial Cells 2018-05-15 12:46:00* Test Item Value Reference Range Interpretation Comments Urine Transitional Epithelial Cells (test code = 8249-5) MANY NONE H [facility] CenterUrine Transitional Epithelial Cells 2018-05-15 12:46:00* Test Item Value Reference Range Interpretation Comments Urine Transitional Epithelial Cells (test code = 8249-5) MANY NONE H [facility] CenterUrine Transitional Epithelial Cells 2018-05-15 12:46:00* Test Item Value Reference Range Interpretation Comments Urine Transitional Epithelial Cells (test code = 8249-5) MANY NONE H [facility] CenterUrine Transitional Epithelial Cells 2018-05-15 12:46:00* Test Item Value Reference Range Interpretation Comments Urine Transitional Epithelial Cells (test code = 8249-5) MANY NONE H [facility] CenterUrine Cadnw4500-82-45 12:28:00* Test Item Value Reference Range Interpretation Comments Urine Color (test code = 5778-6) YELLOW YELLOW [facility] CenterUrine Lstksuz2751-90-66 12:28:00* Test Item Value Reference Range Interpretation Comments Urine Clarity (test code = 66654-6) HAZY CLEAR [facility] CenterUrine Specific Ipbaojt6491-47-05 12:28:00 * Test Item Value Reference Range Interpretation Comments Urine Specific [place] (test code = 5811-5) 1.010 1.010-1.02 5 [facility] CenterUrine fL4901-68-84 12:28:00* Test Item Value Reference Range Interpretation Comments Urine pH (test code = 75421-6) 8 5-7 H [facility] Leukocyte Ldsserpp4913-62-30 12:28:00* Test Item Value Reference Range Interpretation Comments Urine Leukocyte Esterase (test code = 5799-2) NEGATIVE NEGATIVE [facility] Kqsgqbt1988-87-08 12:28:00* Test Item Value Reference Range Interpretation Comments Urine Nitrite (test code = 20977-9) NEGATIVE NEGATIVE [facility] Tkfsmus6630-65-00 12:28:00* Test Item Value Reference Range Interpretation Comments Urine Protein (test code = 5804-0) 2+ NEGATIVE H [facility] Glucose (UA)2018-05-15 12:28:00* Test Item Value Reference Range Interpretation Comments Urine Glucose (UA) (test code = 2349-9) NEGATIVE NEGATIVE [facility] Iywqkta1370-91-04 12:28:00* Test Item Value Reference Range Interpretation Comments Urine Ketones (test code = 08713-1) NEGATIVE NEGATIVE [facility] Mnxnmkpmudlu8169-62-55 12:28:00* Test Item Value Reference Range Interpretation Comments Urine Urobilinogen (test code = 00232-6) 0.2 0.2-1 [facility] Bpaitexsk0109-89-57 12:28:00* Test Item Value Reference Range Interpretation Comments Urine Bilirubin (test code = 1978-6) NEGATIVE NEGATIVE [facility] Rkfth8726-28-35 12:28:00* Test Item Value Reference Range Interpretation Comments Urine Blood (test code = 19370-6) 1+ NEGATIVE H [facility] CenterB-Type Natriuretic Kwboybr7608-36-21 11:23:00* Test Item Value Reference Range Interpretation Comments B-Type Natriuretic Peptide (test code = 93102-7) 321.1 0-100 H [facility] CenterB-Type Natriuretic Xsbjenm1049-68-45 11:23:00* Test Item Value Reference Range Interpretation Comments B-Type Natriuretic Peptide (test code = 96984-9) 321.1 0-100 H [facility] CenterB-Type Natriuretic Yqwaysf3110-56-49 11:23:00* Test Item Value Reference Range Interpretation Comments B-Type Natriuretic Peptide (test code = 41826-7) 321.1 0-100 H [facility] CenterB-Type Natriuretic Jgwusee3704-01-57 11:23:00* Test Item Value Reference Range Interpretation Comments B-Type Natriuretic Peptide (test code = 38959-3) 321.1 0-100 H [facility] CenterCT BRAIN IV8995-18-38 10:50:00 [place] [address] Patient Name: MIGUEL FONTENOT MR #: [id number] : 1935 Age/Sex: 82/F Req #: [id number] Adm Physician: Ordered by: CHANDANA DOMINGO NP Report #: [id number] Location: ER Room/Bed: Procedure: [id number] CT/CT BRAIN WO Exam Date: 05/15/18 Exam [...] ischemic changes changes. Signed by: Dr. Cezar Cabrera M.D. on 10:52 AM Dictated By: CEZAR CABRERA MD 1052 Transcribed By: YAQUELIN on 05/15/18 1052 COPY TO: CHANDANA DOMINGO NP Creatine Kinase YQ6197-67-67 10:49:00* Test Item Value Reference Range Interpretation Comments Creatine Kinase MB (test code = 73803-0) 0.80 0-5.0 [facility] CenterTroponin P7542-20-83 10:49:00* Test Item Value Reference Range Interpretation Comments Troponin I (test code = QOZ1737) 0.013 0-0.300 [facility] CenterCHEST SINGLE (PORTABLE)2018-05-15 10:46:00 [place] [address] Patient Name: MIGUEL FONTENOT MR #: [id number] : 1935 Age/Sex: 82/F Req #: [id number] Adm Physician: CHRISTEL HATHAWAY MD Ordered by: CHANDANA DOMINGO OPERATIONS TRAINER Report #: [id number] Location: MED/SURG3 Room/Bed: [facility] Procedure: DX/CHEST SINGLE (PORTABLE) Exam Date: 05/15/18 [...] 1046 COPY TO: CHANDANA DOMINGO NP Magnesium Zwrkk2819-60-20 10:43:00* Test Item Value Reference Range Interpretation Comments Magnesium Level (test code = 85720-8) 1.5 1.3-2.1 [facility] CenterTotal Lhssyhtpg1736-04-33 10:43:00* Test Item Value Reference Range Interpretation Comments Total Bilirubin (test code = 1975-2) 0.5 0.2-1.2 [facility] CenterAspartate Amino Transf (AST/SGOT) 2018-05-15 10:43:00* Test Item Value Reference Range Interpretation Comments Aspartate Amino Transf (AST/SGOT) (test code = Aspartate Amino Transf (AST/SGOT)) 19 5-34 [facility] CenterAlanine Aminotransferase (ALT/SGPT) 2018-05-15 10:43:00* Test Item Value Reference Range Interpretation Comments Alanine Aminotransferase (ALT/SGPT) (test code = 1742-6) 17 0-55 [facility] CenterTotal [place]3062-21-41 10:43:00* Test Item Value Reference Range Interpretation Comments Total Protein (test code = 2885-2) 6.2 6.5-8.1 L [facility] CenterAlbumin2018-09-17 10:43:00* Test Item Value Reference Range Interpretation Comments Albumin (test code = 1751-7) 2.5 3.5-5.0 L [facility] CenterGlobulin2018-09-17 10:43:00* Test Item Value Reference Range Interpretation Comments Globulin (test code = 76875-7) 3.7 2.3-3.5 H [facility] CenterAlbumin/Globulin Pblpd0540-98-06 10:43:00 * Test Item Value Reference Range Interpretation Comments Albumin/Globulin Ratio (test code = 1759-0) 0.7 0.8-2.0 L [facility] CenterAlkaline Qsuxmsrrprt1512-70-23 10:43:00* Test Item Value Reference Range Interpretation Comments Alkaline Phosphatase (test code = 6768-6) 79 40-150 [facility] CenterCreatine Wwgldn5275-66-13 10:43:00* Test Item Value Reference Range Interpretation Comments Creatine Kinase (test code = 2157-6) 63 29-168 [facility] CenterProthrombin Avjk6271-09-49 10:34:00* Test Item Value Reference Range Interpretation Comments Prothrombin Time (test code = 5902-2) 14.5 11.9-14.5 [facility] CenterProthromb Time International Ratio 2018-05-15 10:34:00* Test Item Value Reference Range Interpretation Comments Prothromb Time International Ratio (test code = 6301-6) 1.22 Oral Anticoagulant Therapy INR Values:1. Low Intensity Therapy 1.5 - 2.02 . Moderate Intensity Therapy 2.0 - 3.03. High Intensity Therapy(1) 2.5 - 3. 54. High Intensity Therapy(2) 3.0 - 4.05. Panic Value INR > 5.0 [facility] CenterActivated Partial Thromboplast Time 2018-05-15 10:34:00* Test Item Value Reference Range Interpretation Comments Activated Partial Thromboplast Time (test code = 39008-1) 29.0 23.8-35.5 [facility] CenterDifferential Total Cells Counted 2018-03-30 08:42:00* Test Item Value Reference Range Interpretation Comments Differential Total Cells Counted (test code = Luis Alfredo tial Total Cells Counted) 100 [facility] CenterNeutrophils % (Manual)2018-03-30 08:42:00 * Test Item Value Reference Range Interpretation Comments Neutrophils % (Manual) (test code = 23029-0) 81 40-74 H [facility] CenterLymphocytes % (Manual)2018-03-30 08:42:00 * Test Item Value Reference Range Interpretation Comments Lymphocytes % (Manual) (test code = 737-7) 7 19-48 L [facility] CenterMonocytes % (Manual)2018-03-30 08:42:00* Test Item Value Reference Range Interpretation Comments Monocytes % (Manual) (test code = 744-3) 10 3.4-9.0 H [facility] CenterEosinophils % (Manual)2018-03-30 08:42:00 * Test Item Value Reference Range Interpretation Comments Eosinophils % (Manual) (test code = 714-6) 2 0-7 [facility] CenterPlatelet Pmcpefir4979-59-89 08:42:00* Test Item Value Reference Range Interpretation Comments Platelet Estimate (test code = 01902-2) ADEQUATE [facility] CenterPlatelet Morphology Fplbcrx4676-01-18 08:42:00* Test Item Value Reference Range Interpretation Comments Platelet Morphology Comment (test code = 59702-2) NORMAL [facility] CenterHypochromasia2018-08-02 08:42:00* Test Item Value Reference Range Interpretation Comments Hypochromasia (test code = 728-6) SLIGHT [facility] CenterAnisocytosis2018-08-02 08:42:00* Test Item Value Reference Range Interpretation Comments Anisocytosis (test code = 702-1) SLIGHT [facility] CenterRed Cell Morphology Yxtgihn2290-52-10 08:42:00* Test Item Value Reference Range Interpretation Comments Red Cell Morphology Comment (test code = 6742-1) NORMAL [facility] CenterDifferential Total Cells Counted 2018-03-30 08:42:00* Test Item Value Reference Range Interpretation Comments Differential Total Cells Counted (test code = Luis Alfredo tial Total Cells Counted) 100 [facility] CenterNeutrophils % (Manual)2018-03-30 08:42:00 * Test Item Value Reference Range Interpretation Comments Neutrophils % (Manual) (test code = 73294-0) 81 40-74 H [facility] CenterLymphocytes % (Manual)2018-03-30 08:42:00 * Test Item Value Reference Range Interpretation Comments Lymphocytes % (Manual) (test code = 737-7) 7 19-48 L [facility] CenterMonocytes % (Manual)2018-03-30 08:42:00* Test Item Value Reference Range Interpretation Comments Monocytes % (Manual) (test code = 744-3) 10 3.4-9.0 H [facility] CenterEosinophils % (Manual)2018-03-30 08:42:00 * Test Item Value Reference Range Interpretation Comments Eosinophils % (Manual) (test code = 714-6) 2 0-7 [facility] CenterPlatelet Vwzdvebs4445-56-95 08:42:00* Test Item Value Reference Range Interpretation Comments Platelet Estimate (test code = 15930-3) ADEQUATE [facility] CenterPlatelet Morphology Aktrorr8403-45-48 08:42:00* Test Item Value Reference Range Interpretation Comments Platelet Morphology Comment (test code = 12824-7) NORMAL [facility] CenterHypochromasia2018-08-02 08:42:00* Test Item Value Reference Range Interpretation Comments Hypochromasia (test code = 728-6) SLIGHT [facility] CenterAnisocytosis2018-08-02 08:42:00* Test Item Value Reference Range Interpretation Comments Anisocytosis (test code = 702-1) SLIGHT [facility] CenterRed Cell Morphology Ybukuqp6994-45-49 08:42:00* Test Item Value Reference Range Interpretation Comments Red Cell Morphology Comment (test code = 6742-1) NORMAL [facility] CenterDifferential Total Cells Counted 2018-03-30 08:42:00* Test Item Value Reference Range Interpretation Comments Differential Total Cells Counted (test code = Luis Alfredo tial Total Cells Counted) 100 [facility] CenterNeutrophils % (Manual)2018-03-30 08:42:00 * Test Item Value Reference Range Interpretation Comments Neutrophils % (Manual) (test code = 71568-6) 81 40-74 H [facility] CenterLymphocytes % (Manual)2018-03-30 08:42:00 * Test Item Value Reference Range Interpretation Comments Lymphocytes % (Manual) (test code = 737-7) 7 19-48 L [facility] CenterMonocytes % (Manual)2018-03-30 08:42:00* Test Item Value Reference Range Interpretation Comments Monocytes % (Manual) (test code = 744-3) 10 3.4-9.0 H [facility] CenterEosinophils % (Manual)2018-03-30 08:42:00 * Test Item Value Reference Range Interpretation Comments Eosinophils % (Manual) (test code = 714-6) 2 0-7 [facility] CenterPlatelet Vowxtrst7109-43-56 08:42:00* Test Item Value Reference Range Interpretation Comments Platelet Estimate (test code = 42949-3) ADEQUATE [facility] CenterPlatelet Morphology Bqimqmu1080-09-43 08:42:00* Test Item Value Reference Range Interpretation Comments Platelet Morphology Comment (test code = 20597-5) NORMAL [facility] CenterHypochromasia2018-08-02 08:42:00* Test Item Value Reference Range Interpretation Comments Hypochromasia (test code = 728-6) SLIGHT [facility] CenterAnisocytosis2018-08-02 08:42:00* Test Item Value Reference Range Interpretation Comments Anisocytosis (test code = 702-1) SLIGHT [facility] CenterRed Cell Morphology Pqakkbu1375-88-41 08:42:00* Test Item Value Reference Range Interpretation Comments Red Cell Morphology Comment (test code = 6742-1) NORMAL [facility] CenterDifferential Total Cells Counted 2018-03-30 08:42:00* Test Item Value Reference Range Interpretation Comments Differential Total Cells Counted (test code = Differen tial Total Cells Counted) 100 [facility] CenterNeutrophils % (Manual)2018-03-30 08:42:00 * Test Item Value Reference Range Interpretation Comments Neutrophils % (Manual) (test code = 67269-4) 81 40-74 H [facility] CenterLymphocytes % (Manual)2018-03-30 08:42:00 * Test Item Value Reference Range Interpretation Comments Lymphocytes % (Manual) (test code = 737-7) 7 19-48 L [facility] CenterMonocytes % (Manual)2018-03-30 08:42:00* Test Item Value Reference Range Interpretation Comments Monocytes % (Manual) (test code = 744-3) 10 3.4-9.0 H [facility] CenterEosinophils % (Manual)2018-03-30 08:42:00 * Test Item Value Reference Range Interpretation Comments Eosinophils % (Manual) (test code = 714-6) 2 0-7 [facility] CenterPlatelet Rmxfjxxf1477-31-72 08:42:00* Test Item Value Reference Range Interpretation Comments Platelet Estimate (test code = 31598-9) ADEQUATE [facility] CenterPlatelet Morphology Pyjdjih2754-12-09 08:42:00* Test Item Value Reference Range Interpretation Comments Platelet Morphology Comment (test code = 71372-4) NORMAL [facility] CenterHypochromasia2018-08-02 08:42:00* Test Item Value Reference Range Interpretation Comments Hypochromasia (test code = 728-6) SLIGHT [facility] CenterAnisocytosis2018-08-02 08:42:00* Test Item Value Reference Range Interpretation Comments Anisocytosis (test code = 702-1) SLIGHT [facility] CenterRed Cell Morphology Jdhtume8274-51-70 08:42:00* Test Item Value Reference Range Interpretation Comments Red Cell Morphology Comment (test code = 6742-1) NORMAL [facility] CenterDifferential Total Cells Counted 2018-03-30 08:42:00* Test Item Value Reference Range Interpretation Comments Differential Total Cells Counted (test code = Luis Alfredo tial Total Cells Counted) 100 [facility] CenterNeutrophils % (Manual)2018-03-30 08:42:00 * Test Item Value Reference Range Interpretation Comments Neutrophils % (Manual) (test code = 86226-8) 81 40-74 H [facility] CenterLymphocytes % (Manual)2018-03-30 08:42:00 * Test Item Value Reference Range Interpretation Comments Lymphocytes % (Manual) (test code = 737-7) 7 19-48 L [facility] CenterMonocytes % (Manual)2018-03-30 08:42:00* Test Item Value Reference Range Interpretation Comments Monocytes % (Manual) (test code = 744-3) 10 3.4-9.0 H [facility] CenterEosinophils % (Manual)2018-03-30 08:42:00 * Test Item Value Reference Range Interpretation Comments Eosinophils % (Manual) (test code = 714-6) 2 0-7 [facility] CenterPlatelet Jarnjskh2099-23-62 08:42:00* Test Item Value Reference Range Interpretation Comments Platelet Estimate (test code = 58484-5) ADEQUATE [facility] CenterPlatelet Morphology Tudzfwm1753-45-03 08:42:00* Test Item Value Reference Range Interpretation Comments Platelet Morphology Comment (test code = 21333-8) NORMAL [facility] CenterHypochromasia2018-08-02 08:42:00* Test Item Value Reference Range Interpretation Comments Hypochromasia (test code = 728-6) SLIGHT [facility] CenterAnisocytosis2018-08-02 08:42:00* Test Item Value Reference Range Interpretation Comments Anisocytosis (test code = 702-1) SLIGHT [facility] CenterRed Cell Morphology Tmxopac7257-50-52 08:42:00* Test Item Value Reference Range Interpretation Comments Red Cell Morphology Comment (test code = 6742-1) NORMAL [facility] CenterThyroid Stimulating Hormone (TSH) 2018-03-30 06:23:00* Test Item Value Reference Range Interpretation Comments Thyroid Stimulating Hormone (TSH) (test code = 69168-3) 1.496 0.350-4.940 [facility] CenterThyroid Stimulating Hormone (TSH) 2018-03-30 06:23:00* Test Item Value Reference Range Interpretation Comments Thyroid Stimulating Hormone (TSH) (test code = 63077-7) 1.496 0.350-4.940 [facility] CenterThyroid Stimulating Hormone (TSH) 2018-03-30 06:23:00* Test Item Value Reference Range Interpretation Comments Thyroid Stimulating Hormone (TSH) (test code = 03595-7) 1.496 0.350-4.940 [facility] CenterThyroid Stimulating Hormone (TSH) 2018-03-30 06:23:00* Test Item Value Reference Range Interpretation Comments Thyroid Stimulating Hormone (TSH) (test code = 36854-9) 1.496 0.350-4.940 [facility] CenterThyroid Stimulating Hormone (TSH) 2018-03-30 06:23:00* Test Item Value Reference Range Interpretation Comments Thyroid Stimulating Hormone (TSH) (test code = 42357-7) 1.496 0.350-4.940 [facility] CenterTriglycerides Ytoez6447-14-54 06:00:00* Test Item Value Reference Range Interpretation Comments Triglycerides Level (test code = 2571-8) 152 0-149 H [facility] CenterCholesterol Wvjhc1416-81-36 06:00:00* Test Item Value Reference Range Interpretation Comments Cholesterol Level (test code = 2093-3) 157 0-199 Less than 200 mg/dL Low Ihen436 - 239 mg/dL Borderline Bumm419 m g/dl and greater High Risk [facility] CenterLDL Oirvtxhasvx3175-23-91 06:00:00* Test Item Value Reference Range Interpretation Comments LDL Cholesterol (test code = 2089-1) 83 60-130 [facility] Nsryqasctpb0180-74-27 06:00:00* Test Item Value Reference Range Interpretation Comments HDL Cholesterol (test code = 2085-9) 44 40-60 [facility] Leclr9977-28-88 06:00:00 * Test Item Value Reference Range Interpretation Comments Cholesterol/HDL Ratio (test code = 9830-1) 3.6 3.0-3.6 [facility] CenterTriglycerides Uvvuw9930-16-62 06:00:00* Test Item Value Reference Range Interpretation Comments Triglycerides Level (test code = 2571-8) 152 0-149 H [facility]Ch[facility] Vycyf3178-31-92 06:00:00* Test Item Value Reference Range Interpretation Comments Cholesterol Level (test code = 2093-3) 157 0-199 Less than 200 mg/dL Low Vrhr976 - 239 mg/dL Borderline Yrne551 m g/dl and greater [facility] Risk [facility] CenterLDL Usaikwvtrih7865-71-43 06:00:00* Test Item Value Reference Range Interpretation Comments LDL Cholesterol (test code = 2089-1) 83 60-130 [facility] Ciqkpefbcfg1832-57-39 06:00:00* Test Item Value Reference Range Interpretation Comments HDL Cholesterol (test code = 2085-9) 44 40-60 [facility]Ch[facility]HDL Oovyo4345-37-11 06:00:00 * Test Item Value Reference Range Interpretation Comments Cholesterol/HDL Ratio (test code = 9830-1) 3.6 3.0-3.6 [facility] CenterTriglycerides Corfx1546-29-57 06:00:00* Test Item Value Reference Range Interpretation Comments Triglycerides Level (test code = 2571-8) 152 0-149 H [facility]Cholesterol Mlrwq8507-78-27 06:00:00* Test Item Value Reference Range Interpretation Comments Cholesterol Level (test code = 2093-3) 157 0-199 Less than 200 mg/dL Low Bjte392 - 239 mg/dL Borderline Gjjk653 m g/dl and greater [facility] Risk [facility] CenterLDL Pjqwhszowxs9187-92-68 06:00:00* Test Item Value Reference Range Interpretation Comments LDL Cholesterol (test code = 2089-1) 83 60-130 [facility] Tzjwkuoqzlg6328-88-52 06:00:00* Test Item Value Reference Range Interpretation Comments HDL Cholesterol (test code = 2085-9) 44 40-60 [facility]Ch[facility]HDL Wuqin8406-35-53 06:00:00 * Test Item Value Reference Range Interpretation Comments Cholesterol/HDL Ratio (test code = 9830-1) 3.6 3.0-3.6 [facility] CenterTriglycerides Ekeoj8012-66-45 06:00:00* Test Item Value Reference Range Interpretation Comments Triglycerides Level (test code = 2571-8) 152 0-149 H [facility]Cholesterol Wswdw5711-39-13 06:00:00* Test Item Value Reference Range Interpretation Comments Cholesterol Level (test code = 2093-3) 157 0-199 Less than 200 mg/dL Low Bhga234 - 239 mg/dL Borderline Wfxg434 m g/dl and greater [facility] Risk [facility] CenterLDL Zflwjzqhiit6750-71-81 06:00:00* Test Item Value Reference Range Interpretation Comments LDL Cholesterol (test code = 2089-1) 83 60-130 [facility] Mkrnidaklub7460-76-36 06:00:00* Test Item Value Reference Range Interpretation Comments HDL Cholesterol (test code = 2085-9) 44 40-60 [facility]Ch[facility]HDL Jpnxt3918-09-81 06:00:00 * Test Item Value Reference Range Interpretation Comments Cholesterol/HDL Ratio (test code = 9830-1) 3.6 3.0-3.6 [facility] CenterTriglycerides Xlsdi1673-24-36 06:00:00* Test Item Value Reference Range Interpretation Comments Triglycerides Level (test code = 2571-8) 152 0-149 H [facility] CenterCholesterol Jwswj5976-43-13 06:00:00* Test Item Value Reference Range Interpretation Comments Cholesterol Level (test code = 2093-3) 157 0-199 Less than 200 mg/dL Low Ldyx308 - 239 mg/dL Borderline Ynne366 m g/dl and greater [facility] Risk [facility] CenterLDL Veuaskkardr9837-44-82 06:00:00* Test Item Value Reference Range Interpretation Comments LDL Cholesterol (test code = 2089-1) 83 60-130 [facility] CenterHDL Lgiucesfnnh7013-79-28 06:00:00* Test Item Value Reference Range Interpretation Comments HDL Cholesterol (test code = 2085-9) 44 40-60 [facility] CenterCh[facility]HDL Txxad0087-56-99 06:00:00 * Test Item Value Reference Range Interpretation Comments Cholesterol/HDL Ratio (test code = 9830-1) 3.6 3.0-3.6 [facility] CenterWhite Blood Yzaqq6778-29-53 05:52:00* Test Item Value Reference Range Interpretation Comments White Blood Count (test code = 6690-2) 6.53 4.8-10.8 [facility] CenterRed Blood Cgaav3243-05-93 05:52:00* Test Item Value Reference Range Interpretation Comments Red Blood Count (test code = 789-8) 3.84 3.6-5.1 [facility] CenterHemoglobin2018-08-02 05:52:00* Test Item Value Reference Range Interpretation Comments Hemoglobin (test code = 14760-4) 11.6 12.0-16.0 L [facility] CenterHematocrit2018-08-02 05:52:00* Test Item Value Reference Range Interpretation Comments Hematocrit (test code = 4544-3) 34.8 34.2-44.1 [facility] CenterMean Corpuscular Aryzrm0258-86-60 05:52:00* Test Item Value Reference Range Interpretation Comments Mean Corpuscular Volume (test code = 787-2) 90.6 81-99 [facility] CenterMean Corpuscular Hscyezhznf1528-91-87 05:52:00* Test Item Value Reference Range Interpretation Comments Mean Corpuscular Hemoglobin (test code = 785-6) 30.2 28-32 [facility] CenterMean Corpuscular Hemoglobin Concent 2018-03-30 05:52:00* Test Item Value Reference Range Interpretation Comments Mean Corpuscular Hemoglobin Concent (test code = 786-4) 33.3 31-35 [facility] CenterRed Cell Distribution Amolk6522-65-16 05:52:00* Test Item Value Reference Range Interpretation Comments Red Cell Distribution Width (test code = 18619-7) 13.3 11.7 -14.4 [facility] CenterPlatelet Uaavy7975-43-64 05:52:00* Test Item Value Reference Range Interpretation Comments Platelet Count (test code = 777-3) 92 140-360 L [facility] CenterNeutrophils (%) (Auto)2018-03-30 05:52:00 * Test Item Value Reference Range Interpretation Comments Neutrophils (%) (Auto) (test code = 56940-2) 76.4 38.7-80.0 [facility] CenterLymphocytes (%) (Auto)2018-03-30 05:52:00 * Test Item Value Reference Range Interpretation Comments Lymphocytes (%) (Auto) (test code = 736-9) 8.0 18.0-39.1 L [facility] CenterMonocytes (%) (Auto)2018-03-30 05:52:00* Test Item Value Reference Range Interpretation Comments Monocytes (%) (Auto) (test code = 5905-5) 10.7 4.4-11.3 [facility] CenterEosinophils (%) (Auto)2018-03-30 05:52:00 * Test Item Value Reference Range Interpretation Comments Eosinophils (%) (Auto) (test code = 713-8) 3.8 0.0-6.0 [facility] CenterBasophils (%) (Auto)2018-03-30 05:52:00* Test Item Value Reference Range Interpretation Comments Basophils (%) (Auto) (test code = 706-2) 0.3 0.0-1.0 [facility] CenterIM GRANULOCYTES %2018-03-30 05:52:00* Test Item Value Reference Range Interpretation Comments IM GRANULOCYTES % (test code = IM GRANULOCYTES %) 0.8 0.0- 1.0 [facility] CenterNeutrophils # (Auto)2018-03-30 05:52:00* Test Item Value Reference Range Interpretation Comments Neutrophils # (Auto) (test code = 751-8) 5.0 2.1-6.9 [facility] CenterLymphocytes # (Auto)2018-03-30 05:52:00* Test Item Value Reference Range Interpretation Comments Lymphocytes # (Auto) (test code = 90574-9) 0.5 1.0-3.2 L [facility] CenterMonocytes # (Auto)2018-03-30 05:52:00* Test Item Value Reference Range Interpretation Comments Monocytes # (Auto) (test code = 742-7) 0.7 0.2-0.8 [facility] CenterEosinophils # (Auto)2018-03-30 05:52:00* Test Item Value Reference Range Interpretation Comments Eosinophils # (Auto) (test code = 711-2) 0.3 0.0-0.4 [facility] CenterBasophils # (Auto)2018-03-30 05:52:00* Test Item Value Reference Range Interpretation Comments Basophils # (Auto) (test code = 704-7) 0.0 0.0-0.1 [facility] CenterAbsolute Immature Granulocyte (auto 2018-03-30 05:52:00* Test Item Value Reference Range Interpretation Comments Absolute Immature Granulocyte (auto (karo t code = Absolute Immature Granulocyte (auto) 0.05 0-0.1 [facility] CenterTroponin N4803-73-20 08:35:00* Test Item Value Reference Range Interpretation Comments Troponin I (test code = BLP7497) 0.021 0-0.300 [facility] CenterCreatine Kinase EC4928-22-15 08:30:00* Test Item Value Reference Range Interpretation Comments Creatine Kinase MB (test code = 42015-5) 1.00 0-5.0 [facility] CenterCreatine Kzkoki4394-95-06 08:23:00* Test Item Value Reference Range Interpretation Comments Creatine Kinase (test code = 2157-6) 64 29-168 [facility] Nlwrg4837-00-03 08:20:00* Test Item Value Reference Range Interpretation Comments Sodium Level (test code = 2951-2) 142 136-145 [facility] CenterPotassium Vfyhe3827-90-62 08:20:00* Test Item Value Reference Range Interpretation Comments Potassium Level (test code = 2823-3) 4.0 3.5-5.1 [facility] CenterChloride Goatf6649-22-55 08:20:00* Test Item Value Reference Range Interpretation Comments Chloride Level (test code = 2075-0) 110 98-107 H [facility] CenterCarbon Dioxide Jyebf9937-91-59 08:20:00* Test Item Value Reference Range Interpretation Comments Carbon Dioxide Level (test code = 2028-9) 22 22-29 [facility] CenterAnion Uso2816-47-35 08:20:00* Test Item Value Reference Range Interpretation Comments Anion Gap (test code = 96093-1) 14.0 8-16 [facility] CenterBlood Urea Yrnkqbbn9518-88-50 08:20:00* Test Item Value Reference Range Interpretation Comments Blood Urea Nitrogen (test code = 3094-0) 50 7-26 H [facility] CenterCreatinine2018-08-01 08:20:00* Test Item Value Reference Range Interpretation Comments Creatinine (test code = 2160-0) 6.02 0.57-1.11 H [facility] CenterBUN/Creatinine Cqtxw6161-33-08 08:20:00* Test Item Value Reference Range Interpretation Comments BUN/Creatinine Ratio (test code = 3097-3) 8 6-25 [facility] CenterEstimat Glomerular Filtration Rate 2018-03-29 08:20:00* Test Item Value Reference Range Interpretation Comments Estimat Glomerular Filtration Rate (test code = 35963-1) 7 >60 L Ranges were taken from the National Kidney Disease Education Program and the [facility] Kid[facility] Foundation literature.Reference ranges:60 or greater: Wbedrn61-11 ( for 3 consecutive months): Chronic kidney disease 15 or less: Kidney failureCHI Ballinger Memorial Hospital DistrictGlucose Imgtx3753-57-14 08:20:00* Test Item Value Reference Range Interpretation Comments Glucose Level (test code = SNN3558) 108 74-118 [facility] CenterCalcium Hgnqw2395-03-27 08:20:00* Test Item Value Reference Range Interpretation Comments Calcium Level (test code = 10343-9) 10.0 8.4-10.2 [facility] CenterMagnesium Qbesq9275-47-82 15:53:00* Test Item Value Reference Range Interpretation Comments Magnesium Level (test code = 61554-6) 1.8 1.3-2.1 [facility] CenterB-Type Natriuretic Puusdfk5588-25-80 15:04:00* Test Item Value Reference Range Interpretation Comments B-Type Natriuretic Peptide (test code = 29384-9) 68.0 0-100 [facility] CenterLactic Acid Urnxj8714-96-38 14:57:00* Test Item Value Reference Range Interpretation Comments Lactic Acid Level (test code = Lactic Acid Level) 12.2 4.5- 19.8 [facility] CenterTotal Scycclqsx7980-88-48 14:57:00* Test Item Value Reference Range Interpretation Comments Total Bilirubin (test code = 1975-2) 0.5 0.2-1.2 [facility] CenterAspartate Amino Transf (AST/SGOT) 2017-07-03 14:57:00* Test Item Value Reference Range Interpretation Comments Aspartate Amino Transf (AST/SGOT) (test code = Aspartate Amino Transf (AST/SGOT)) 21 5-34 [facility] CenterAlanine Aminotransferase (ALT/SGPT) 2017-07-03 14:57:00* Test Item Value Reference Range Interpretation Comments Alanine Aminotransferase (ALT/SGPT) (test code = 1742-6) 19 0-55 [facility] CenterTotal Qreiusc9153-42-14 14:57:00* Test Item Value Reference Range Interpretation Comments Total Protein (test code = 2885-2) 7.4 6.5-8.1 [facility] CenterAlbumin2017-11-05 14:57:00* Test Item Value Reference Range Interpretation Comments Albumin (test code = 1751-7) 3.1 3.5-5.0 L [facility] CenterGlobulin2017-11-05 14:57:00* Test Item Value Reference Range Interpretation Comments Globulin (test code = 46751-4) 4.3 2.3-3.5 H [facility] CenterAlbumin/Globulin Ngdts5312-98-15 14:57:00 * Test Item Value Reference Range Interpretation Comments Albumin/Globulin Ratio (test code = 1759-0) 0.7 0.8-2.0 L [facility] CenterAlkaline Yerthfngojo7524-97-69 14:57:00* Test Item Value Reference Range Interpretation Comments Alkaline Phosphatase (test code = 6768-6) 91 40-150 [facility] CenterLipase2017-11-05 14:57:00* Test Item Value Reference Range Interpretation Comments Lipase (test code = 3040-3) 35 8-78 [facility] CenterProthrombin Acum0585-12-50 14:47:00* Test Item Value Reference Range Interpretation Comments Prothrombin Time (test code = 5902-2) 13.8 11.9-14.5 [facility] CenterProthromb Time International Ratio 2017-07-03 14:47:00* Test Item Value Reference Range Interpretation Comments Prothromb Time International Ratio (test code = 6301-6) 1.01 Oral Anticoagulant Therapy INR Values:1. Low Intensity Therapy 1.5 - 2.02 . Moderate Intensity Therapy 2.0 - 3.03. High Intensity Therapy(1) 2.5 - 3. 54. High Intensity Therapy(2) 3.0 - 4.05. Panic Value INR > 5.0 [facility] CenterActivated Partial Thromboplast Time 2017-07-03 14:47:00* Test Item Value Reference Range Interpretation Comments Activated Partial Thromboplast Time (test code = 23222-5) 30.6 23.8-35.5 [facility] CenterUrine NPL9242-39-17 14:44:00* Test Item Value Reference Range Interpretation Comments Urine WBC (test code = 5821-4) 11-20 0-5 H [facility] CenterUrine URA4101-01-93 14:44:00* Test Item Value Reference Range Interpretation Comments Urine RBC (test code = 56607-2) 11-20 0-5 H [facility] CenterUrine Rxsytpcv1204-46-13 14:44:00* Test Item Value Reference Range Interpretation Comments Urine Bacteria (test code = 74558-3) MODERATE NONE H [facility] CenterUrine Epithelial Bpadx7458-78-24 14:44:00 * Test Item Value Reference Range Interpretation Comments Urine Epithelial Cells (test code = 40924-4) MODERATE NONE [facility] CenterUrine Zulub1047-25-51 14:29:00* Test Item Value Reference Range Interpretation Comments Urine Color (test code = 5778-6) YELLOW YELLOW [facility] CenterUrine Jhtgbyc8137-03-14 14:29:00* Test Item Value Reference Range Interpretation Comments Urine Clarity (test code = 45656-4) SL CLOUDY CLEAR [facility] CenterUrine Specific Rgijyol3977-62-23 14:29:00 * Test Item Value Reference Range Interpretation Comments Urine Specific [place] (test code = 5811-5) 1.020 1.010-1.02 5 [facility] CenterUrine yB1901-38-41 14:29:00* Test Item Value Reference Range Interpretation Comments Urine pH (test code = 50810-5) 5 5-7 [facility] CenterUrine Leukocyte Ikmqpiwn3708-05-16 14:29:00* Test Item Value Reference Range Interpretation Comments Urine Leukocyte Esterase (test code = 5799-2) 1+ NEGATIVE H [facility] CenterUrine Lzipefb5994-39-17 14:29:00* Test Item Value Reference Range Interpretation Comments Urine Nitrite (test code = 29628-8) NEGATIVE NEGATIVE [facility] CenterUrine Oyavldx8671-34-66 14:29:00* Test Item Value Reference Range Interpretation Comments Urine Protein (test code = 5804-0) 3+ NEGATIVE H [facility] CenterUrine Glucose (UA)2017-07-03 14:29:00* Test Item Value Reference Range Interpretation Comments Urine Glucose (UA) (test code = 2349-9) 1+ NEGATIVE H [facility] CenterUrine Ufaxfsa4382-46-24 14:29:00* Test Item Value Reference Range Interpretation Comments Urine Ketones (test code = 11030-5) NEGATIVE NEGATIVE [facility] Uyxvtnblwwyc6129-17-93 14:29:00* Test Item Value Reference Range Interpretation Comments Urine Urobilinogen (test code = 22564-2) 0.2 0.2-1 [facility] CenterUrine Wqcoingkc2396-32-98 14:29:00* Test Item Value Reference Range Interpretation Comments Urine Bilirubin (test code = 1978-6) 1+ NEGATIVE H [facility] Sltfg9684-36-00 14:29:00* Test Item Value Reference Range Interpretation Comments Urine Blood (test code = 85810-2) 2+ NEGATIVE H [facility] CenterBedside Lawmbjw9200-71-32 07:22:00* Test Item Value Reference Range Interpretation Comments Bedside Glucose (test code = 29464-0) 96 70-120 Meter ID: [id number] Regional Medical CenterUrine Vbvow1701-22-16 17:08:00* Test Item Value Reference Range Interpretation Comments Urine Mucus (test code = 8247-9) FEW RARE H [facility] CenterELECTROLYTES2017-03-09 12:03:004.3 [facility] [employer] BANK XPPPJBZ3584-75-69 16:13:00Negative (10/28/16 10:13 AM) [facility] JfkrdkhMBBWWMXHSKYH1448-89-46 16:13:0012.4[facility]annELECTROLYTES 2016-10-28 16:13:0012[facility] EanuvhePPMXPAHNNGHB1002-24-66 16:13:0036[facility] LijngooVZBMXDBOPALK7617-78-03 16:13:0095[facility] AqttaevXKNJQVPCHKJX6296-11-48 16:13:003.50[facility] YmyrhufNAJFSJDECGSA4480-01-04 16:13:009.1[facility] XTEGLGLQQPFM6040-04-97 16:13:0021[facility] VeggfrcHTZRWMZSCKJM1035-48-48 16:13:00 4.4[facility] SvkoxsbITZDFBBFJZJU3434-72-48 16:13:01087Omkbnqkc Regulo ZDIXDTZXIVQD8582-03-13 16:13:42243Msmyolvw CgtxgnhDFWFAMOEUK8972-81-22 16:13:00 21.2[facility] JdibssnBVVYGKTPNV9423-35-87 16:13:001.5[facility] HermannHEMATOLOGY 2016-10-28 16:13:004.2[facility] RukopnnAZTSRPAPFT0256-92-08 16:13:003.9[facility] FzhahmlVWODPKXWGA5674-34-91 16:13:007.5[facility] MimthlvOULQMLGONU9894-89-70 16:13:000.2[facility] QcpqwipAQHYHLAPDJ5476-34-17 16:13:001.4[facility] HFVNZPAPIH4343-72-15 16:13:000.5[facility] JtxubypIJYSQFQRSG2321-74-40 16:13:000.1 [facility] FlnrhasHSHLQYMIVT5212-92-43 16:13:0065.9[facility]annHEMATOLOGY 2016-10-28 16:13:001.04[facility] RjfcpluLTWHCVYJCQ1212-58-15 16:13:00* Test Item Value Reference Range Interpretation Comments PT (test code = PT) 13.8 s 12.0-14.7 [facility] BxprcqhMKZTZWJRYI3643-71-25 16:13:00* Test Item Value Reference Range Interpretation Comments PTT (test code = PTT) 30.0 s 22.9-35.8 [facility] JnuiiljCLCLYZVBYH4603-05-16 16:13:008.3[facility]annHEMATOLOGY 2016-10-28 16:13:0034.0[facility] FkvzxixIOCZCVATIB3768-23-74 16:13:0013.5[facility] EkhyuspNLGTBCYESO5864-73-30 16:13:003.45[facility] BolnufxEOHFANLAAK7274-66-79 16:13:0030.5[facility] NlslgsgASFFLXQHEU2053-04-64 16:13:0010.4[facility] [place] PRQQWWDUDD3793-71-14 16:13:0088.5[facility] IttwoxgDUCWWANIHN1003-79-98 16:13:00* Test Item Value Reference Range Interpretation Comments MCH (test code = MCH) 30.1 pg 27.0-31.0 [facility] QzrpxyfORZXLYYZQT7170-89-74 16:13:24922Khvcsbhn HermannHEMATOLOGY 2016-10-28 16:13:006.4[facility] NnjklydCSUNFDQTMTTS5191-00-81 12:54:475.0[facility] HermannCHEM OYVTO5230-10-50 21:43:0018[facility] HermannCHEM XVOGQ2949-58-78 21:43:007.9[facility] HermannCHEM RKTEP5556-16-76 21:43:0020[facility] HermannCHEM HBWWR8034-61-24 21:43:25740Pftibyqw HermannCHEM VCBCW6006-08-05 21:43:004.8 [facility] HermannCHEM IMCAF3932-25-32 21:43:16324Ybnxonbx HermannCHEM PANEL 2015-11-17 21:43:002.45[facility] HermannCHEM FXDOQ1144-93-85 21:43:0037[facility] HermannCHEM JVGXI1782-37-66 21:43:39383Hgcgjpsv HermannCHEM IISRT6554-53-23 21:43:0011.8[facility] EnnvjfkYTYFMGNMKR6235-52-64 21:43:001.15[facility] [place] YRBSQRFHKG9986-42-38 21:43:00* Test Item Value Reference Range Interpretation Comments PT (test code = PT) 15.0 s 12.0-14.7 [facility] JluemdsDWUHUBKBHB5382-71-41 21:43:0089.9[facility] HermannHEMATOLOGY 2015-11-17 21:43:008.5[facility] ZaykvfbVAWCXGAMDC1872-25-58 21:43:0033.1[facility] LrzlpinLTJTQEKTGZ9395-29-92 21:43:0014.3[facility] ZsdjwisRCLQXWQKRU1798-73-49 21:43:00* Test Item Value Reference Range Interpretation Comments MCH (test code = MCH) 29.7 pg 27.0-31.0 [facility] GuosfuoXYLNYFROVL8557-02-11 21:43:79093Lyatsqfk HermannHEMATOLOGY 2015-11-17 21:43:0027.1[facility] KlnbltmTNIJUBDOHZ5329-49-74 21:43:003.01[facility] HfgpjclCRVIFFYNWE7391-22-51 21:43:009.0[facility] HwisjydIFDYEESZWM4528-32-52 21:43:005.6[facility] AztsldhUAHTODKBVG3182-88-06 21:43:00* Test Item Value Reference Range Interpretation Comments PTT (test code = PTT) 27.1 s 22.9-35.8 [facility] WgobydvMMACKZBYYF3785-70-19 21:43:000.1[facility] HermannHEMATOLOGY 2015-11-17 21:43:003.9[facility] KvihpseEZIHGXXVXR3346-11-68 21:43:000.1[facility] KcyzsnmHXVOBSCMDK5917-97-53 21:43:001.1[facility] BnikuhtVEGEJNRTAI0325-92-83 21:43:000.5[facility] TalzxfkJVYHLRIYAM9709-00-91 21:43:0018.8[facility] IGWGVFNSCI8313-48-76 21:43:001.4[facility] QvvenudXYTHCQXEUZ8640-06-46 21:43:008.0 [facility] WdanfgiYFVPFVBHNE6589-61-03 21:43:002.1[facility] HermannHEMATOLOGY 2015-11-17 21:43:0069.7[facility] HermannCHEM OUKFO0816-21-27 14:14:27014Ofeodeyc XolmzsmYLTSQAIEBFES9092-28-88 14:14:005.4[facility] HermannCHEM LQDFS1236-81-93 19:57:0050[facility] HermannCHEM BTPJP6443-80-97 19:57:0013[facility] HermannCHEM FBMZG6393-06-43 19:57:003.3[facility] HermannCHEM PSCTJ5512-48-96 19:57:47250 [facility] HermannCHEM YBBTS8598-48-11 19:57:71161Uusscrmo HermannCHEM PANEL 2015-03-17 19:57:004.7[facility] HermannCHEM UGFVB7916-87-72 19:57:81663Vigpptmd HermannCHEM KVCIB1160-07-00 19:57:009.2[facility] HermannCHEM EMZNS0923-38-26 19:57:0020[facility] HermannCHEM ZIYUG8778-68-49 19:57:0015.7[facility] WIYVTRHOJZ3039-85-86 19:57:00* Test Item Value Reference Range Interpretation Comments PTT (test code = PTT) 34.3 s 22.9-35.8 [facility] AckohwvBHZTQAKRAC9527-51-48 19:57:001.16[facility] HermannHEMATOLOGY 2015-03-17 19:57:00* Test Item Value Reference Range Interpretation Comments PT (test code = PT) 14.9 s 12.0-14.7 [facility] JoghqpcRFCUVYKBSY5584-60-46 19:57:009.0[facility] HermannHEMATOLOGY 2015-03-17 19:57:51227Ejjitril OlmdpafDLCOMFCPZX6226-91-13 19:57:0027.7[facility] ScwexdtSFABCSJNGE4379-30-92 19:57:0087.9[facility] AbegslnQESRZEVVSE2884-56-90 19:57:003.15[facility] TwjkaqiPSUVTGUKEX3205-64-17 19:57:009.3[facility] [place] YBNCQVPOSG6056-39-69 19:57:0033.7[facility] ZzzktuvGLZKSLNEQC3721-98-87 19:57:00 14.0[facility] IoekxfoOLZPXQPAKB8966-71-54 19:57:00* Test Item Value Reference Range Interpretation Comments MCH (test code = MCH) 29.6 pg 27.0-31.0 [facility] GnwkxoiHSNSLZYCXE7979-11-26 19:57:005.4[facility] HermannHEMATOLOGY 2015-03-17 19:57:001.2[facility] ZmtxmfvMPHDRNXXVG7408-38-38 19:57:003.4[facility] FuyhtuuJYVRJMTYYE1250-92-83 19:57:001.4[facility] YuqkbmwKAESKTWLAE3939-28-88 19:57:003.0[facility] JbyxssjZCBVUXAMTZ6749-89-37 19:57:000.1[facility] YBPIYHPGHO5733-55-64 19:57:000.6[facility] FkumnngUODBHLCXUA4100-07-65 19:57:000.2 Memorial QcqwpwaCDLXJYRKIO6167-92-50 19:57:0010.9[facility] HermannHEMATOLOGY 2015-03-17 19:57:0062.7[facility] SfgnmprLUPMCQQTOL7476-56-74 19:57:0022.0[facility] HermannCT BRAIN WO [place] [address] Patient Name: MIGUEL FONTENOT MR #: [id number] : 1935 Age/Sex: 82/F Req #: [id number] Adm Physician: Ordered by: LOY SO NP Report #: [id number] Location: ER Room/Bed: Procedure: [id number] CT/CT BRAIN WO Exam Da te: 07/03/17 [...] Dictated By: SEVERIANO DE LA ROSA MD 1354 Transcribed By: YAQUELIN on 07/03/17 1352 COPY TO: Corey SO OPERATIONS TRAINER CHEST [facility] (PORTABLE) [place] [address] Patient Name: MIGUEL FONTENOT MR #: [id number] : 1935 Age/Sex: 82/F Req #: [id number] Adm Physician: Ordered by: LOY SO NP Report #: [id number] Location: ER Room/Bed: Procedure: [id number] DX/CHEST SINGLE (PORTAB LE) Exam Date: 07/03/17 Exam Time: 1329 REPORT STATUS: Signed Portable chest x-ray INDICATION: Arm numbness CARLOS MANUEL TUCKER: Chest x-ray 03/27/2012 FINDINGS: Frontal view of [...] RODRIGUEZ MD 11 COPY TO: MARLA SO OPERATIONS TRAINER MRI BRAIN [place] [address] Patient Name: MIGUEL FONTENOT MR #: [id number] : 1935 Age/Sex: 82/F Req #: [id number] [facility] Physician: RDONEY ROSADO MD Ordered by: RODNEY ROSADO MD Report #: [id number] Location: [facility] Room/Bed: [place] [address] Procedure: [id number] MRI/MRI BRAIN WO Exam [...] YAQUELIN on 06/14/17 1005 COPY TO: RODNEY ROSADO MD CT BRAIN WO [place] [address] Patient Name: MIGUEL FONTENOT MR #: [id number] : 1935 Age/Sex: 82/F Req #: [id number] Adm Physician: Ordered by: PATRICK DAMON MD Report #: [id number] Location: Room/Bed: Procedure: [id number] CT/CT BRAIN WO Exam Date: 06/13/17 Exam [...] CT on 05/15/2017. Signed by: Dr. Cezar Cabrera M.D. on 06/13/2017 1:17 PM Dictated By: CEZAR CABRERA MD 16 Transcribed By: MARY KATE SHAH on 06/13/171316 COPY TO: PATRICK DAMON MD CT BRAIN WO [place] [address] Patient Name: MIGUEL FONTENOT MR #: [id number] : 1935 Age/Sex: 81/F Req #: [id number] Adm Physician: Ordered by: PATRICK DAMON MD Report #: [id number] Location: ER Room/Bed: Procedure: [id number] CT/CT BRAIN WO Exam Date: Exam Time: [...] 3:57 PM Dictated By: ATILIO ABARCA MD [id number] Transcribed By: YAQUELIN on 05/15/17 6123 COPY TO: PATRICK DAMON MD
--- NOTE | 2020-04-22 12:58 | Diagnostic Imaging Report ---
Examination: CT head without contrast Clinical Indication: Left arm weakness. Slurred speech.. Technique: Transaxial noncontrast images from the skull base through the vertex were obtained. Sagittal and coronal reformatted images were done. Dose modulation, iterative reconstruction, and/or weight based adjustment of the mA/kV was utilized to reduce the radiation dose to as low as reasonably achievable. Comparison: Brain MRI and head CT performed January 28, 2020. Findings: Scalp: No abnormalities. Bones: Intact. No fractures. No blastic or lytic lesions. Brain sulci: Generalized volume loss for patient's age. Ventricles: No hydrocephalus. Extra-axial space: No acute amounts. Previously described left frontal meningioma on the brain MRI is not discernible on the head CT. Parenchyma: There are patchy areas of low-attenuation within subcortical and periventricular white matter, nonspecific, but could represent microvascular ischemic disease. No masses, hemorrhage, or acute cortical based vascular insults. Cortical-based encephalomalacia is again demonstrated in the left superior and middle frontal gyri and adjacent left frontal deep white matter. Suprasellar region: No abnormalities. Craniocervical junction: The foramen magnum is patent. No Chiari one malformation. Incidental findings: Atherosclerotic calcification of the cavernous and supraclinoid internal carotid and V4 segments of the bilateral vertebral arteries. Impression: 1. No acute intracranial finding when compared to prior brain MRI and head CT performed January 28, 2020. 2. Unchanged chronic microvascular ischemic change. 3. 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 Signed by: Dr. Yumiko Posada M.D. on 04/22/2020 12:54 PM
[2020-04-22 13:40] LABS: BASOPHILS % 0.2 % (0.0-1.0); EOSINOPHILS # (AUTO) 0.2 (0.0-0.4); EOSINOPHILS % 2.6 % (0.0-6.0); HEMATOCRIT 25.9 % (34.2-44.1); HEMOGLOBIN 8.4 g/dL (12.0-16.0); LYMPHOCYTES # (AUTO) 1.1 (1.0-3.2); LYMPHOCYTES % 11.7 % (18.0-39.1); MEAN CORPUSCULAR HEMOGLOBIN 29.4 pg (28-32); MEAN CORPUSCULAR HGB CONC 32.4 g/dL (31-35); MEAN CORPUSCULAR VOLUME 90.6 fL (81-99); MONOCYTES # (AUTO) 0.6 (0.2-0.8); MONOCYTES % 6.3 % (4.4-11.3); NEUTROPHILS # (AUTO) 7.2 (2.1-6.9); NEUTROPHILS % 78.7 % (38.7-80.0); PLATELET COUNT 112 x10e3/uL (140-360); RED BLOOD COUNT 2.86 x10e6/uL (3.6-5.1); RED CELL DISTRIBUTION WIDTH 13.8 % (11.7-14.4)
[2020-04-22 13:56] LABS: ALBUMIN 2.7 g/dL (3.5-5.0); ALBUMIN/GLOBULIN RATIO 0.8 (0.8-2.0); ANION GAP 18.1 mmol/L (8-16); CALCIUM 8.5 mg/dL (8.4-10.2); CREATININE, SERUM 7.03 mg/dL (0.57-1.11); POTASSIUM 4.1 mmol/L (3.5-5.1)
--- NOTE | 2020-04-22 15:23 | NUR ---
repeat troponin drawn and sent.
--- NOTE | 2020-04-22 16:12 | NUR ---
Called primary contact # in computer Timur Ling. No answer.
--- NOTE | 2020-04-22 16:15 | NUR ---
Called Timur Ling to notify that patient needs ride home. Preparing pt for DC.
[2020-04-22 16:33] VITALS: BP 126/46
== END 2020-04-22 16:41 | disposition home or self-care (01) ==
LOC: ER 11:54
DX: G45.9 Transient cerebral ischemic attack, unspecified (principal); M25.512 Pain in left shoulder; I12.0 Hypertensive chronic kidney disease with stage 5 chronic kidney disease or end stage renal disease; N18.6 End stage renal disease; Z99.2 Dependence on renal dialysis; E03.9 Hypothyroidism, unspecified
CPT/HCPCS: 36415; 70450; 80053; 84484; 85025; 93005; 99284

== ENCOUNTER 2020-07-25 12:40 | Emergency (ER) | payer MEDICARE ==
[~2020-07-25] VITALS: Ht 162.6 cm; Wt 51.3 kg
[2020-07-25 13:42] LABS: BASOPHILS % 0.5 % (0.0-1.0); EOSINOPHILS # (AUTO) 0.2 (0.0-0.4); EOSINOPHILS % 3.4 % (0.0-6.0); HEMATOCRIT 50.6 % (34.2-44.1); LYMPHOCYTES # (AUTO) 1.1 (1.0-3.2); LYMPHOCYTES % 16.9 % (18.0-39.1); MEAN CORPUSCULAR HEMOGLOBIN 29.4 pg (28-32); MEAN CORPUSCULAR HGB CONC 31.6 g/dL (31-35); MEAN CORPUSCULAR VOLUME 92.8 fL (81-99); MONOCYTES # (AUTO) 0.5 (0.2-0.8); MONOCYTES % 7.6 % (4.4-11.3); NEUTROPHILS # (AUTO) 4.6 (2.1-6.9); NEUTROPHILS % 71.4 % (38.7-80.0); PLATELET COUNT 103 x10e3/uL (140-360); RED BLOOD COUNT 5.45 x10e6/uL (3.6-5.1); RED CELL DISTRIBUTION WIDTH 13.3 % (11.7-14.4)
[2020-07-25 14:00] LABS: ALANINE AMINOTRANSFERASE 16 IU/L (0-55); ALKALINE PHOSPHATASE 91 IU/L (40-150); ANION GAP 14.7 mmol/L (8-16); BLOOD UREA NITROGEN 39 mg/dL (7-26); BUN/CREATININE RATIO 7 (6-25); CARBON DIOXIDE 28 mmol/L (22-29); CHLORIDE 104 mmol/L (98-107); CREATININE, SERUM 5.81 mg/dL (0.57-1.11); EST GLOMERULAR FILTRATION RATE 7 ML/MIN (60-); GLUCOSE 100 mg/dL (74-118); POTASSIUM 3.7 mmol/L (3.5-5.1); SODIUM 143 mmol/L (136-145)
[2020-07-25 14:02] LABS: ALBUMIN < 0.4 g/dL (3.5-5.0); ALBUMIN/GLOBULIN RATIO 0.1 (0.8-2.0); CALCIUM 10.8 mg/dL (8.4-10.2)
--- OUTSIDE RECORDS SUMMARY | 2020-07-25 14:19 | XMS REPORT | Continuity of Care Document ---
Author Author [facility] Organization [facility] Address Unknown Phone Unavailable Care Team Providers Care Re Dye Hand Name Role Phone [employer] Information [employer] Unavailable Un available Problems Problem Status Onset Date Classification Date Reported Comments Source Cervicalgia 08/18/2018 03/01/2019 [facility] [place] [place] CERVICAL Active 05/11/2018 [facility] [place] UNK Active 0 10/18/2016 [facility] Z12.31 - ENCNTR SCREEN MAMMOGRAM FOR MA Active 07/30/2015 [facility] [place] 585.4 Active 03/04/2015 [facility] 585.2 Active 07/30/2014 [facility] Gastroesophageal reflux disease (disorder) Active Problem 07/22/2019 [facility] [place],[facility] [place], [facility] [place] Anemia of chronic renal failure (disorder) Active Problem 07/22/2019 [facility] [place],[facility] [place], [facility] [place] Diabetes mellitus (disorder) A ctive Problem [facility] [place], [place],[facility] [place], [facility] [place] Hearing loss (finding) Active Problem 07/22/2019 [facility] [place], [place],[facility] [place], [facility] [place] Hypertensive disorder, systemic arterial (disorder) Active Problem 07/22/2019 [facility] [place],[facility] [place], [facility] [place] Hypercholesterolemia (disorder) Active Problem [facility] [place], [place],[facility] [place] [facility] [place] Hypertriglyceridemia (disorder) Active Problem [facility] [place], [place],[facility] [place] [facility] [place] Hypothyroidism (disorder) Acti ve Problem [facility]OB [place], [place],[facility] [place], [facility] [place] Renal failure syndrome (disorder) Active Problem [facility] [place], [place],[facility] [place], [facility] [place] Incisional hernia of anterior abdominal wall (disorder ) Active Problem 07/22/2019 [facility] [place],[facility] [place], [facility] [place] Anxiety (finding) Active Problem 07/22/2019 [facility] [place], [place],[facility] [place], [facility] [place] Weakness 01/29/2019 [facility] [place] Abnormal posture 03/01/2019 [facility] [place] Encounter for screening mammogram for ma lignant neoplasm of breast 07/22/2019 [facility] [place] Spondylolisthesis, cervical region 11/19/2018 [facility] [place] Muscle weakness (generalized) 03/01/2019 [facility] [place] Hypothyroidism Active 01/03/2014 [facility] Essential Hypertension Active 01/03/2014 [facility] Chronic Kidney Disease, Stage 2 Active 01/03/2014 [facility] Vaccines Prophylactic Need Against Influenza Active 11/08/2013 [facility] Fainting - Unconscious About 1-5 Minutes Active 06/18/2013 [facility] Diabetes Mellitus Under Control Active 01/03/2014 [facility] Nonspecific Abnormal Results Of Function Studies Active 11/08/2013 [facility] Automatism Active 11/08/2013 [facility] 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 [facility] Anxiety Disorder NOS Active 01/03/2014 [facility] Vitamin B12 Deficiency Active 01/03/2014 [facility] Hyperlipidemia Active 01/03/2014 [facility] Esophageal Reflux Active 01/03/2014 [facility] Urinary Incontinence Active 01/03/2014 [facility] Vitamin D deficiency Active Problem 06/24/2020 [facility] Osteoporosis Active Problem 06/24/2020 Castillo Souza ESRD (end stage renal disease) Active Problem Castillo Souza Other fci (current) drug therapy Active Diagnosis 06/24/2020 Castillo Sou[facility] Rheumatoid arthritis of multiple sites w ithout rheumatoid factor Active Diag nosis 06/24/2020 Castillo Souza Muscle spasm Active Problem 06/24/2020 Castillo Souza Osteopenia of multiple sites A [...] CHRONIC KIDNEY DISEASE, STAGE 4 (SEVERE) Active [facility] END STAGE RENAL DISEASE Active [facility] Medications Medication Details Route Status Patient Instructions Ordering Provider Order Date Source Prolia as directed Subcutaneous Active 60 MG/ML Subcutaneous q 6 months Souza 05/21/2020 Castillo Souza Prolia as directed Subcutaneous Active 60 MG/ML Subcutaneous q 6 months Parker 02/24/2020 Castillo Souza Vitamin D (Ergocalciferol) 1 c apsule Orally Active 45107 UNIT Orally once a week Parker 11/13/2018 [...] Pain Score 4-6, Start date: 11/04/16 11:10:00 AUTOMATIC CASTING MACHINE OPERATOR Inactive 11/04/2016 [facility] labetalol (ANES) Route: IV, Dr ug form: INJ, ONCE, Stop date: 11/04/16 10:12:00 AUTOMATIC CASTING MACHINE OPERATOR Inactive 11/04/2016 [facility] ePHEDrine (ANES) Route: IV, Dr ug form: INJ, ONCE, Stop date: 11/04/16 9:58:00 AUTOMATIC CASTING MACHINE OPERATOR Inactive 11/04/2016 [facility] famotidine (ANES) Route: IV, D rug form: INJ, ONCE, Stop date: 11/04/16 9:58:00 AUTOMATIC CASTING MACHINE OPERATOR Inactive 11/04/2016 [facility] ondansetron (ANES) Route: IV, Drug form: INJ, ONCE, Stop date: 11/04/16 9:58:00 AUTOMATIC CASTING MACHINE OPERATOR Inactive 11/04/2016 [facility] fentaNYL (ANES) Route: IV, Kushal g form: INJ, ONCE, Stop date: 11/04/16 9:58:00 AUTOMATIC CASTING MACHINE OPERATOR Inactive 11/04/2016 [facility] propofol (ANES) Route: IV, Kushal g form: INJ, ONCE, Stop date: 11/04/16 9:58:00 AUTOMATIC CASTING MACHINE OPERATOR Inactive 11/04/2016 [facility] lidocaine (ANES) Route: IV, Dr ug form: INJ, ONCE, Stop date: 11/04/16 9:58:00 AUTOMATIC CASTING MACHINE OPERATOR Inactive 11/04/2016 [facility] rocuronium (ANES) Route: IV, D rug form: INJ, ONCE, Stop date: 11/04/16 9:58:00 AUTOMATIC CASTING MACHINE OPERATOR Inactive 11/04/2016 [facility] neostigmine (ANES) Route: IV, Drug form: INJ, ONCE, Stop date: 11/04/16 9:58:00 AUTOMATIC CASTING MACHINE OPERATOR Inactive 11/04/2016 [facility] glycopyrrolate (ANES) Route: I V, Drug form: INJ, ONCE, Stop date: 11/04/16 9:58:00 AUTOMATIC CASTING MACHINE OPERATOR Inactive 11/04/2016 [facility] acetaminophen-codeine #3 2 tab , Route: PO, Drug Form: TAB, Dosing Weight 59.545, kg, Q4H, PRN Pain Score 4-6, Start date: 11/04/16 9:53:00 AUTOMATIC CASTING MACHINE OPERATOR, Duration: 30 day, Stop date: 12/04/16 9:52:00 CDT Inactive 11/04/2016 [facility] Morphine 2 mg, Route: IVP, Q3H , Dosing Weight 59.545, kg, PRN Pain Score 1-3, Start date: 11/04/16 9:53:00 AUTOMATIC CASTING MACHINE OPERATOR, Duration: 30 day, Stop date: 12/04/16 9:52:00 CDT Inactive 11/04/2016 [facility] vancomycin (ANES) (ANES) Route : IV, Drug form: INJ, Start date: 11/04/16 9:19:00 AUTOMATIC CASTING MACHINE OPERATOR, Stop date: 11/04/16 10:19:00 AUTOMATIC CASTING MACHINE OPERATOR Inactive 11/04/2016 [facility] ceFAZolin (ANES) (ANES) Route: IV, Drug form: INJ, Start date: 11/04/16 9:19:00 AUTOMATIC CASTING MACHINE OPERATOR, Stop date: 11/04/16 10:19:00 AUTOMATIC CASTING MACHINE OPERATOR Inactive 11/04/2016 [facility] sodium chloride 0.9% 500 ml INJ (ANES) Route: IV, Total Volume: 500, Start date: 11/04/16 9:10:00 AUTOMATIC CASTING MACHINE OPERATOR, Stop date: 11/04/16 10:10:00 AUTOMATIC CASTING MACHINE OPERATOR Inactive 11/04/2016 [facility] sodium chloride 0.9% 500 ml INJ 500 mL 500 mL, Rate: 40 ml/hr, Infuse over: 12.5 hr, Route: IV, Dosing Weight 59.545 kg, Total Volume: 500, Start date: 11/04/16 8:04:00 AUTOMATIC CASTING MACHINE OPERATOR, Duration: 1 day, Stop date: 11/05/16 8:03:00 AUTOMATIC CASTING MACHINE OPERATOR Inactive 11/04/2016 [facility] Lactated Ringers 1,000 mL 1,00 0 mL, Rate: 40 ml/hr, Infuse over: 25 hr, Route: IV, Dosing Weight 59.545 kg, Total Volume: 1,000, Start date: 11/04/16 8:03:00 AUTOMATIC CASTING MACHINE OPERATOR, Duration: 1 day, Stop date: 11/05/16 8:02:00 AUTOMATIC CASTING MACHINE OPERATOR Inactive 11/04/2016 [facility] Vitamin D3 50,000 intl units oral capsule 50,000 IntlUnit = 1 cap, PO, qWeek, # 12 cap, 0 Refill(s) Active 10/28/2016 [facility] glimepiride 1 mg oral tablet 1 mg = 1 tab, PO, Daily, 0 Refill(s) Active 10/28/2016 [facility] Ancef Notes: Same as: Ancef No Longer Active 10/28/2016 [facility] Vancomycin 2001 mg: infuse ov er 2.5 hours MEDICATION WASTE Product Size: 1000 mg Product Wasted: ___ mg No Longer Active 10/28/2016 [facility] Famotidine 10 MG Oral Tablet 1 0 mg = 1 tab, PO, BID, 0 Refill(s) Active 10/28/2016 [facility] Vitamin D (Ergocalciferol) 1 c apsule Orally Active 59648 UNIT Orally Once a week [place] 09/10/2016 [facility] PredniSONE 2 tablets with food or milk Orally Active 5 MG Orally Once a day [place] 02/09/2016 [facility] [place] Nexium 1 capsule Orally Active 40 MG Orally Once a day [place] 02/09/2016 [facility] [place] propofol (ANES) Route: IV, Kushal g form: INJ, ONCE, Stop date: 11/24/15 9:58:00 Inactiv e 11/24/2015 [facility] lidocaine (ANES) Route: IV, ug form: INJ, ONCE, Stop date: 11/24/15 9:58:00 Inactiv e 11/24/2015 [facility] fentaNYL (ANES) Route: IV, Kushal g form: INJ, ONCE, Stop date: 11/24/15 9:53:00 Inactiv e 11/24/2015 [facility] midazolam (ANES) Route: IV, Dr sierra form: SOLN, ONCE, Stop date: 11/24/15 9:53:00 Inactiv e 11/24/2015 [facility] ceFAZolin (ANES) Route: IV, ug form: INJ, ONCE, Stop date: 11/24/15 9:53:00 Inactiv e 11/24/2015 [facility] Oxycodone Notes: (Same as: Odilia icodone) Inactive 11/24/2015 [facility] Flumazenil Notes: (Same as: Ro mazicon) Inactive 11/24/2015 [facility] Meperidine Notes: (Same As: De merol) Inactive 11/24/2015 [facility] Naloxone Notes: Same as Narcan Inactive 11/24/2015 [facility] Fentanyl Notes: (Same as: Subl imaze) Preservative free. Inactive 11/24/2015 [facility] Hydromorphone 0.5 mg, 0.5 mL, Route: IVP, Drug form: INJ, Q5Min, Dosing Weight 57.784, kg, PRN Pain Score 7-10, Start date: 11/24/15 9:51:00, Duration: 4 doses or times, Stop date: Limited # of times Inactive 11/24/2015 [facility] Ondansetron Notes: (Same as: Carolann ardon) MEDICATION WASTE Product Size: 4 mg Product Wasted: ___ mg Inactive 11/24/2015 [facility] Hydralazine Notes: (Same as: A presoline) Push over 5 minutes Inactive 11/24/2015 [facility] ondansetron (ANES) Route: IV, Drug form: INJ, ONCE, Stop date: 11/24/15 9:43:00 Inactiv e 11/24/2015 [facility] vancomycin (ANES) (ANES) Route : IV, Drug form: INJ, Start date: 11/24/15 9:11:00, Stop date: 11/24/15 10:11:00 Inactive 11/24/2015 [facility] Sodium Chloride 0.154 MEQ/ML Injectable Solution 500 mL, Rate: 25 ml/hr, Infuse over: 20 hr, Route: IV, Dosing Weight 57.784 kg, Total Volume: 500, Start date: 11/24/15 9:09:00, Duration: 30 day, Stop date: 12/24/15 9:08:00 Inactive 11/24/2015 [facility] Sodium Chloride 0.9% IV (ANES) (ANES) Route: IV, Total Volume: 500, Start date: 11/24/15 9:08:00, Stop date: 11/24/15 10:08:00 Inactive 11/24/2015 [facility] Calcium Chloride 0.0014 MEQ/ML / Potassi um Chloride 0.004 MEQ/ML / Sodium Chloride 0.103 MEQ/ML / Sodium Lactate 0.028 MEQ/ML Injectable Solution 1,000 mL, Rate: 25 ml/hr, Infuse over: 4 0 hr, Route: IV, Dosing Weight 57.784 kg, Total Volume: 1,000, Start date: 11/24/15 9:08:00, Duration: 30 day, Stop date: 12/24/15 9:07:00 Inactive 11/24/2015 [facility] Vancomycin 2001 mg: infuse ov er 2.5 hours MEDICATION WASTE Product Size: 1000 mg Product Wasted: ___ mg No Longer Active 11/17/2015 [facility] Ancef Notes: Same as: Ancef No Longer Active 11/17/2015 [facility] Hydralazine 10 mg, Route: IVP, Q20Min, Dosing Weight 60, kg, PRN Elevated BP, Start date: 03/24/15 13:35:00, Duration: 2 doses or times, Stop date: Limited # of times Inactive 03/24/2015 [facility] Glycopyrrolate 0.2 mg, Route: IVP, Q5Min, Dosing Weight 60, kg, PRN Bradycardia, Start date: 03/24/15 13:35:00, Duration: 3 doses or times, Stop date: Limited # of times Inactive 03/24/2015 [facility] Ondansetron 4 mg, Route: IVP, ONCE, Dosing Weight 60, kg, PRN Nausea & Vomiting, Start date: 03/24/15 13:35:00 Inactive 03/24/2015 [facility] Flumazenil 0.2 mg, Route: IVP, PRN, Dosing Weight 60, kg, PRN Benzodiazepine Reversal, Initial dose, Start date: 03/24/15 13:35:00, Duration: 30 day, Stop date: 04/23/15 13:34:00 Inactive 03/24/2015 [facility] Meperidine 12.5 mg, Route: IVP , Q30Min, Dosing Weight 60, kg, PRN Other -See Comment, For shivering, Start date: 03/24/15 13:35:00, Duration: 2 doses or times, Stop date: Limited # of times Inactive 03/24/2015 [facility] Promethazine 6.25 mg, Route: I VPB, ONCE, Dosing Weight 60, kg, PRN Nausea & Vomiting, Start date: 03/24/15 13:35:00 Inactive 03/24/2015 [facility] Naloxone 0.04 mg, Route: IVP, Q2MIN, Dosing Weight 60, kg, PRN Narcotic Reversal, Start date: 03/24/15 13:35:00, Duration: 8 doses or times, Stop date: Limited # of times Inactive 03/24/2015 [facility] Morphine 4 mg, Route: IVP, Q5M in, Dosing Weight 60, kg, PRN Pain Score 7-10, Start date: 03/24/15 13:35:00, Duration: 3 doses or times, Stop date: Limited # of times Inactive 03/24/2015 [facility] Hydromorphone 0.5 mg, Route: I LEAF SORTER, Q5Min, Dosing Weight 60, kg, PRN Pain Score 7-10, Start date: 03/24/15 13:35:00, Duration: 4 doses or times, Stop date: Limited # of times Inactive 03/24/2015 [facility] Diphenhydramine 12.5 mg, Route : IVP, Drug form: INJ, Q6H, Dosing Weight 60, kg, PRN Itching, Start date: 03/24/15 13:35:00, Duration: 30 day, Stop date: 04/23/15 13:34:00 Inactive 03/24/2015 [facility] Fentanyl 25 microgram, Route: IVP, Q5Min, Dosing Weight 60, kg, PRN Pain Score 4-6, Start date: 03/24/15 13:35:00, Duration: 4 doses or times, Stop date: Limited # of times Inactive 03/24/2015 [facility] Ketorolac 4 days MEDICA TION WASTE Product Size: 30 mg Product Wasted: ___ mg Inactive 03/24/2015 [facility] Oxycodone 10 mg, Route: PO, Dr ug form: TAB, Q4H, Dosing Weight 60, kg, PRN Pain Score 7-10, Start date: 03/24/15 13:35:00, Duration: 30 day, Stop date: 04/23/15 13:34:00 Inactive 03/24/2015 [facility] Metoprolol 1 mg, Route: IVP, Q 5Min, Dosing Weight 60, kg, PRN Other -See Comment, Start date: 03/24/15 13:35:00, Duration: 5 doses or times, Stop date: Limited # of times Inactive 03/24/2015 [facility] acetaminophen-codeine #3 1 tab , Route: PO, Drug Form: TAB, Dosing Weight 60, kg, Q4H, PRN Pain Score 4-6, Start date: 03/24/15 13:01:00, Duration: 30 day, Stop date: 04/23/15 13:00:00 Inactive 03/24/2015 [facility] Morphine 2 mg, Route: IVP, Q3H , Dosing Weight 60, kg, PRN Pain Score 1-3, Start date: 03/24/15 13:01:00, Duration: 30 day, Stop date: 04/23/15 13:00:00 Inactive 03/24/2015 [facility] Ancef 2 gm, Route: IVPB, ONCE, Dosing Weight 60, kg, Start date: 03/24/15 11:43:00, Duration: 1 doses or times, Stop date: 03/24/15 11:43:00 Inactive 03/24/2015 [facility] Sodium Chloride 0.154 MEQ/ML Injectable Solution 500 mL, Rate: 25 ml/hr, Infuse over: 20 hr, Route: IV, Dosing Weight 60 kg, Total Volume: 500, Start date: 03/23/15 8:26:00, Duration: 2 day, Stop date: 03/25/15 8:25:00 No Longer Active 03/23/2015 [facility] Vancomycin Notes: TIME CRITICA L MEDICATION No Longer Active 03/17/2015 [facility] Atorvastatin Calcium 10 MG Oral Tablet ; Start Date: 11/08/2013; End Date: (Active) Active 11/08/2013 [facility] Fenofibrate 48 MG Oral Tablet ; [...] MG Oral Capsule Delayed Release (Active) Active [facility] Atorvastatin Calcium 10 MG Oral Tablet (Active) Active [facility] AmLODIPine Besylate 5 MG Oral Tablet (Active) Active [facility] Cyanocobalamin 1000 MCG/ML Injection Solution (Active) Active [facility] Fenofibrate 48 MG Oral Tablet (Active) Active [facility] Allergy TABS (Active) Active [facility] Fish Oil CAPS (Active) Active [facility] Losartan Potassium 25 MG Oral Tablet (Active) Active [facility] Nubia Allergy 180 MG Oral Tablet (Active) Active [facility] Integra Plus CAPS (Active) Active [facility] Fish Oil Concentrate 1000 MG Oral Capsule (Active) Active [facility] Clopidogrel Bisulfate 75 MG Oral Tablet (Active) Active [facility] Integra Plus Oral Capsule (Ac tive) Active [facility] Metoprolol Succinate ER 50 MG Oral Table t Extended Release 24 Hour (Active) A ctive [facility] Gabapentin 100 MG Oral Capsule (Active) Active [facility] Metoprolol Tartrate 1 tablet Orally Active 50 MG Orally Once a day Ranjit Castillo Souza Nubia 1 tablet as needed Orally Active 160 MG Orally Once a day Elena Souza Vitamin D (Ergocalciferol) 1 c apsule Orally Active 50,000 Orally ONCE A WEEK Maksim Castillo Souza Aspir-81 1 tablet Orally Active [...] Orally Once a day Ranjit Castillo Souza Mouthcard 3 1 capsule Orally Active 1200 mg Orally Once a d ay Ranjit Farshad Souza Sodium Bicarbonate 1 tablet Orally Active 650 MG Orally twice a day Ranjit Castillo Souza Famotidine 1 tablet as needed Orally Active 10 MG Orally Twice a day Ranjit Castillo Souza Ergocalciferol 1 capsule Orally Active 1000 mg Orally Once a d ay [facility] Castillo Souza Cyanocobalamin 1 ml Injection Active 1000 MCG/ML Injection O nce a month Ranjit Castillo Souza Amlodipine Besylate 1/2 tablet Orally Active 5 MG Orally Once a day Ranjit Castillo Souza Mouthcard 3 1 capsule Orally Active 1200 mg Orally Once a d ay Laith Souza Famotidine 1 tablet as needed Orally Active 10 MG Orally Twice a day Laith Souza Amlodipine Besylate 1/2 tablet Orally Active 5 MG Orally Once a day Parkeraleena Souza Prolia 60MG SQ Subcutaneous Active 60 MG/ML Subcutaneous Q 6 MONTHS [facility] Castillo Souza Cyanocobalamin 1 ml Injection Active 1000 MCG/ML Injection O nce a month [place] Castillo Souza Sodium Bicarbonate 1 tablet Orally Active 650 MG Orally twice a day [place] Castillo Souza Paroxetine HCl 1 tablet in the morning Orally Active 10 MG Orally Once a day [place] Castillo Souza Levothyroxine Sodium 1 tablet Orally Active 75 MCG Orally Once a day [facility] Castillo Souza Ergocalciferol 1 capsule Orally Active 1000 mg Orally Once a d ay [place] Castillo Souza Metoprolol Tartrate 1 tablet Orally Active 50 MG Orally Once a day [facility] Castillo Souza Aspir-81 1 tablet Orally Active 81 MG Orally Once a day Fakoya Farshad Souza Calcitriol 1 capsule Orally Active 0.25 MCG Orally Once a day [facility] Castillo Souza Tizanidine HCl 1 tablet as nee ded Orally Active 4 MG Orally Three times a day Ozuna Castillo Souza Vitamin B-12 15 ml Orally Active 1000 MCG/15ML Orally On ce a day [place] Castillo Souza Synthroid 1 tablet every morni ng on an empty stomach Orally Active 75 MCG Orally Once a day [facility] Castillo Souza Omeprazole 2 capsules Orally Active 20 MG Orally Once a day [place] Castillo Souza Glimepiride 1 tablet with isiah kfast or the first main meal of the day Orally Active 1 MG Orally Once a day Souza Castillo Souza Losartan Potassium 1 tablet Orally Active 25 MG Orally Once a day Ozuna Castillo Souza Tricor 1 tablet Orally Active 48 MG Orally Once a day [facility] genie Souza Atorvastatin Calcium 1 tablet Orally Active 10 MG Orally Once a day [place] Castillo Souza Fenofibrate 1 tablet Orally Active 48 MG Orally Once a day [place] Farshad Souza Aspirin 2 tablets Orally Active 81 MG Orally every nigh t [place] Farshad Souza Famotidine 1 tablet Orally Active 20 MG Orally Once a day [facility] Farshad Souza Atorvastatin Calcium 1 tablet Orally Active 20 MG Orally Once a day [place] Castillo Souza Amlodipine Besylate 1 tablet Orally Active [...] MG Orally Once a day Harley Souza Aspirin 2 tablets Orally Active 81 [...] Active 0.25 MG Orally Twice a day Elena Souza Sensipar 1 tablet with food or [...] drug a llergy drug aller gy Active [facility] Plavix TABS drug allergy drug allergy Active [facility] Immunizations Immunization Date Given Site Status Last Updated Comments Source Prolia 09/10/2016 completed Castillo Souza Prolia 03/11/2016 completed Castillo Sou[facility] Influenza 05/22/2013 completed [facility] Zoster (Zostavax) completed [facility] Influenza completed [facility] Results Order Name Results Value Reference Range Date Interpretation Comments Source ELECTROLYTES Potassium Lvl 4.3 3.5 - 5.1 11/04/2016 [facility] BLOOD [facility] RESULTS Antibody Scrn Negative (10/28/16 10:13 AM) 10/28/2016 [facility] BLOOD [facility] RESULTS ABO/Rh A POS 10/28/2016 [facility] ELECTROLYTES AGAP 12.4 10.0 - 20.0 10/28/2016 [facility] ELECTROLYTES eGFR 12 10/28/2016 Result Comment: The [...] should be multiplied by the estimated BMI. [facility] ELECTROLYTES BUN 36 7 - 22 10/28/2016 [facility] ELECTROLYTES Glucose Lvl 95 70 - 99 10/28/2016 [facility] ELECTROLYTES Creatinine Lvl 3.5 0 0.50 - 1.40 10/28/2016 [facility] ELECTROLYTES Calcium Lvl 9.1 8.5 - 10.5 10/28/2016 [facility] ELECTROLYTES CO2 21 24 - 32 10/28/2016 [facility] ELECTROLYTES Potassium Lvl 4.4 3.5 - 5.1 10/28/2016 [facility] ELECTROLYTES Chloride Lvl 112 95 - 109 10/28/2016 [facility] ELECTROLYTES Sodium Lvl 141 135 - 145 10/28/2016 [facility] HEMATOLOGY Lymphocytes 21.2 20.0 - 40.0 10/28/2016 [facility] HEMATOLOGY Basophils 1.5 0.0 - 1.0 10/28/2016 [facility] HEMATOLOGY Segs-Bands # 4.2 1.5 - 8.1 10/28/2016 [facility] HEMATOLOGY Eosinophils 3.9 0.0 - 4.0 10/28/2016 [facility] HEMATOLOGY Monocytes 7.5 2.0 - 12.0 10/28/2016 [facility] HEMATOLOGY Eosinophils # 0.2 0.0 - 0.5 10/28/2016 [facility] HEMATOLOGY Lymphocytes # 1.4 1.0 - 5.5 10/28/2016 [facility] HEMATOLOGY Monocytes # 0.5 0.0 - 0.8 10/28/2016 [facility] HEMATOLOGY Basophils # 0.1 0.0 - 0.2 10/28/2016 [facility] HEMATOLOGY Segs 65.9 45.0 - 75.0 10/28/2016 [facility] HEMATOLOGY INR 1.04 0.85 - 1.17 10/28/2016 [facility] HEMATOLOGY PT 13.8 12.0 - 14.7 10/28/2016 [facility] HEMATOLOGY PTT 30.0 22.9 - 35.8 10/28/2016 [facility] MPV 8.3 7.4 - 10.4 10/28/2016 [facility] HEMATOLOGY MCHC 34.0 32.0 - 36.0 10/28/2016 [facility] HEMATOLOGY RDW 13.5 11.5 - 14.5 10/28/2016 [facility] HEMATOLOGY RBC 3.45 4.20 - 5.40 10/28/2016 [facility] HEMATOLOGY Hct 30.5 36.0 - 48.0 10/28/2016 [facility] HEMATOLOGY Hgb 10.4 12.0 - 16.0 10/28/2016 [facility] HEMATOLOGY MCV 88.5 80.0 - 98.0 10/28/2016 [facility] MCH 30.1 27.0 - 31.0 10/28/2016 [facility] HEMATOLOGY Platelet 135 133 - 450 10/28/2016 [facility] HEMATOLOGY WBC 6.4 3.7 - 10.4 10/28/2016 [facility] ELECTROLYTES Potassium Lvl 5.0 3.5 - 5.1 11/24/2015 [facility] CHEM PANEL eGFR 18 11/17/2015 Result Comment: [...] should be multiplied by the estimated BMI. [facility] CHEM PANEL Calcium Lvl 7.9 8.5 - 10.5 11/17/2015 [facility] CHEM PANEL CO2 20 24 - 32 11/17/2015 [facility] CHEM PANEL Chloride Lvl 113 95 - 109 11/17/2015 [facility] CHEM PANEL Potassium Lvl 4.8 3.5 - 5.1 11/17/2015 [facility] CHEM PANEL Sodium Lvl 140 135 - 145 11/17/2015 [facility] CHEM PANEL Creatinine Lvl 2.45 0.50 - 1.40 11/17/2015 [facility] CHEM PANEL BUN 37 7 - 22 11/17/2015 [facility] CHEM PANEL Glucose Lvl 130 70 - 99 11/17/2015 [facility] CHEM PANEL AGAP 11.8 10.0 - 20.0 11/17/2015 [facility] HEMATOLOGY INR 1.15 0.85 - 1.17 11/17/2015 [facility] HEMATOLOGY PT 15.0 12.0 - 14.7 11/17/2015 [facility] HEMATOLOGY MCV 89.9 80.0 - 98.0 11/17/2015 [facility] HEMATOLOGY MPV 8.5 7.4 - 10.4 11/17/2015 [facility] HEMATOLOGY MCHC 33.1 32.0 - 36.0 11/17/2015 [facility] HEMATOLOGY RDW 14.3 11.5 - 14.5 11/17/2015 [facility] HEMATOLOGY MCH 29.7 27.0 - 31.0 11/17/2015 [facility] HEMATOLOGY Platelet 158 133 - 450 11/17/2015 [facility] HEMATOLOGY Hct 27.1 36.0 - 48.0 11/17/2015 [facility] HEMATOLOGY RBC 3.01 4.20 - 5.40 11/17/2015 [facility] HEMATOLOGY Hgb 9.0 12.0 - 16.0 11/17/2015 [facility] HEMATOLOGY WBC 5.6 3.7 - 10.4 11/17/2015 [facility] HEMATOLOGY PTT 27.1 22.9 - 35.8 11/17/2015 [facility] HEMATOLOGY Basophils # 0.1 0.0 - 0.2 11/17/2015 [facility] HEMATOLOGY Segs-Bands # 3.9 1.5 - 8.1 11/17/2015 [facility] HEMATOLOGY Eosinophils # 0.1 0.0 - 0.5 11/17/2015 [facility] HEMATOLOGY Lymphocytes # 1.1 1.0 - 5.5 11/17/2015 [facility] HEMATOLOGY Monocytes # 0.5 0.0 - 0.8 11/17/2015 [facility] HEMATOLOGY Lymphocytes 18.8 20.0 - 40.0 11/17/2015 [facility] HEMATOLOGY Basophils 1.4 0.0 - 1.0 11/17/2015 [facility] HEMATOLOGY Monocytes 8.0 2.0 - 12.0 11/17/2015 [facility] HEMATOLOGY Eosinophils 2.1 0.0 - 4.0 11/17/2015 [facility] HEMATOLOGY Segs 69.7 45.0 - 75.0 11/17/2015 [facility] CHEM PANEL Glucose Lvl 100 70 - 99 03/24/2015 [facility] ELECTROLYTES Potassium Lvl 5.4 3.5 - 5.1 03/24/2015 [facility] CHEM PANEL BUN 50 7 - 22 03/17/2015 [facility] CHEM PANEL eGFR 13 03/17/2015 Result Comment: [...] should be multiplied by the estimated BMI. [facility] CHEM PANEL Creatinine Lvl 3.3 0.5 - 1.4 03/17/2015 [facility] CHEM PANEL Sodium Lvl 140 135 - 145 03/17/2015 [facility] CHEM PANEL Glucose Lvl 106 70 - 99 03/17/2015 [facility] CHEM PANEL Potassium Lvl 4.7 3.5 - 5.1 03/17/2015 [facility] CHEM PANEL Chloride Lvl 109 95 - 109 03/17/2015 [facility] CHEM PANEL Calcium Lvl 9.2 8.5 - 10.5 03/17/2015 [facility] CHEM PANEL CO2 20 24 - 32 03/17/2015 [facility] CHEM PANEL AGAP 15.7 10.0 - 20.0 03/17/2015 [facility] HEMATOLOGY PTT 34.3 22.9 - 35.8 03/17/2015 [facility] HEMATOLOGY INR 1.16 0.85 - 1.17 03/17/2015 [facility] HEMATOLOGY PT 14.9 12.0 - 14.7 03/17/2015 [facility] HEMATOLOGY MPV 9.0 7.4 - 10.4 03/17/2015 [facility] HEMATOLOGY Platelet 158 133 - 450 03/17/2015 [facility] HEMATOLOGY Hct 27.7 36.0 - 48.0 03/17/2015 [facility] MCV 87.9 80.0 - 98.0 03/17/2015 [facility] RBC 3.15 4.20 - 5.40 03/17/2015 [facility] Hgb 9.3 12.0 - 16.0 03/17/2015 [facility] MCHC 33.7 32.0 - 36.0 03/17/2015 [facility] RDW 14.0 11.5 - 14.5 03/17/2015 [facility] MCH 29.6 27.0 - 31.0 03/17/2015 [facility] WBC 5.4 3.7 - 10.4 03/17/2015 [facility] Lymphocytes # 1.2 1.0 - 5.5 03/17/2015 [facility] Segs-Bands # 3.4 1.5 - 8.1 03/17/2015 [facility] Basophils 1.4 0.0 - 1.0 03/17/2015 [facility] Eosinophils 3.0 0.0 - 4.0 03/17/2015 [facility] Basophils # 0.1 0.0 - 0.2 03/17/2015 [facility] Monocytes # 0.6 0.0 - 0.8 03/17/2015 [facility] Eosinophils # 0.2 0.0 - 0.5 03/17/2015 [facility] Monocytes 10.9 2.0 - 12.0 03/17/2015 [facility] Segs 62.7 45.0 - 75.0 03/17/2015 [facility] Lymphocytes 22.0 20.0 - 40.0 03/17/2015 [facility] Pathology Reports No Data Provided for This Section Diagnostic Reports Report Value Date Source Breast Mammo Scrn MC incl CAD MA BILATERAL DIGITAL SCREENING MAMMOGRAM WITH CAD: 07/19/2019 CLINICAL: Screening/Screening. Current study was evaluated with a Computer Aided Detection (CAD) system. COMPARISON:Comparison is made to exams dated: 07/17/2018 mammogram, 07/16/2017 mammogram, 08/19/2015 mammogram - [facility], 06/26/2014 mammogram, 09/28/2013 mammogram, and 09/26/2012 mammogram - [facility]. TECHNIQUE: Mammographic views were obtained using digital [...] is recommended.(07/19/2020) This exam was interpreted at [id number] for CHELSEA Hung, SL 15. Professional services are provided by the [facility] Division of Diagnostic Imaging. Kelley Del Rio M.D. ms/penrad:07/20/2019 08:33:03 Zigzag Stitcher(s): RT Celeste(R)(M), [facility] letter sent: BI-RADS 1/2 Dense Mammogram BI-RADS: 2 Benign 07/19/2019 [facility] Breast Mammo Scrn MC incl CAD MA BILATERAL DIGITAL SCREENING MAMMOGRAM WITH CAD: 07/17/2018 CLINICAL: Routine/Screening. Current study was evaluated with a Computer Aided Detection (CAD) system. COMPARISON:Comparison is made to exams dated: 07/16/2017 mammogram, 08/19/2015 mammogram - [facility], 06/26/2014 mammogram, 09/28/2013 mammogram, 09/26/2012 mammogram, and 09/17/2011 mammogram - [facility]. TECHNIQUE: Mammographic views were obtained using digital [...] is recommended.(07/18/2019) This exam was interpreted at [id number] for CHELSEA Sun. Professional services are provided by the [facility] Division of Diagnostic Imaging. Deisy Vance M.D. ak/penrad:07/19/2018 10:59:26 Zigzag Stitcher(s): Miranda Briggs RT(R)(M), [facility] letter sent: BI-RADS 1/2 Mammogram BI-RADS: 2 Benign 07/17/2018 [facility] Spine cervical 2 or 3 [...] listhesis. 05/02/2018 [facility] Breast Mammo Scrn MC incl CAD MA BILATERAL DIGITAL SCREENING MAMMOGRAM WITH CAD: 07/16/2017 CLINICAL: /Z12.31 Encounter For Screening Mammogram For Malignant Neoplasm Of Breast. Current study was evaluated with a Computer Aided Detection (CAD) system. COMPARISON:Comparison is made to exams dated: 08/19/2015 mammogram - [facility], 06/26/2014 mammogram, 09/28/2013 mammogram, 09/26/2012 mammogram, and 09/17/2011 mammogram - [facility]. TECHNIQUE: Mammographic views were obtained using digital [...] 1 year screening mammogram is recommended.(07/17/2018) Wili bartlett/penrad:07/19/2017 09:55:37 Zigzag Stitcher(s): Tejal Lucio [facility] letter sent: BI-RADS 1/2 Dense Mammogram [...] 03/17/2015. 03/03/2016 [facility] Digital Mammo Screening Mc MA - DIGITAL MAMMO SCREENING MC MA BILATERAL DIGITAL SCREENING MAMMOGRAM WITH CAD: 08/19/2015 CLINICAL: Routine. Current study was evaluated with a Computer Aided Detection (CAD) system. Comparison is made to exams dated: 06/26/2014 mammogram, 09/28/2013 mammogram, 09/26/2012 mammogram and 09/17/2011 mammogram - [facility]. The tissue of both breasts is heterogeneously [...] is recommended. Paul Vick M.D., cm/penrad:08/27/2015 11:51:17 Zigzag Stitcher: Anna AGUILAR(George)(Kyle), [facility] This exam was dictated and interpreted by [id number] for Melody. letter sent: Normal exam Mammogram [...] Atherosclerosis. Coding: Chest 2 views CPT Code: 62338 SL: 13 Avni Vazquez M.D. 03/17/2015 [facility] Consultation Notes No Data Provided for This [...] 08/01/2017 [facility] Height 63 1 10/02/2016 [facility] Temperature Oral (F) 98.6 F 08/01/2017 [facility] Heart Rate 64 08/01/2017 [facility] [...] [facility] Systolic (mm Hg) 136 11/04/2016 [facility] Diastolic (mm Hg) 40 11/04/2016 [facility] Systolic (mm Hg) 145 11/04/2016 [facility] Diastolic (mm Hg) 37 11/04/2016 [facility] Systolic (mm Hg) 159 11/04/2016 [facility] Diastolic (mm Hg) 46 11/04/2016 [facility] Respitory Rate 14 11/04/2016 [facility] Respitory Rate 17 11/04/2016 [facility] Respitory Rate 17 11/04/2016 [facility] Heart Rate 72 11/04/2016 [facility] Temperature Oral (F) 97.5 F 10/28/2016 [facility] Heart Rate 54 10/28/2016 [facility] Height 162.56 cm 10/28/2016 [facility] Weight 59.545 10/28/2016 [facility] BMI Calculated 22.53 10/28/2016 [facility] Weight 129 09/10/2016 [facility] Height 64 0 09/10/2016 [facility] Temperature Oral (F) 96.9 F 09/10/2016 [facility] Heart Rate 60 09/10/2016 [facility] Diastolic (mm Hg) 60 09/10/2016 [facility] Systolic (mm Hg) 124 09/10/2016 [facility] Weight 124 03/11/2016 [facility] Height 64 0 03/11/2016 [facility] Temperature Oral (F) 98.5 F 03/11/2016 [facility] Heart Rate 64 03/11/2016 [facility] Diastolic (mm Hg) 60 03/11/2016 [facility] Systolic (mm Hg) 130 03/11/2016 [facility] Systolic (mm Hg) 124 11/24/2015 [facility] Diastolic (mm Hg) 54 11/24/2015 [facility] Systolic (mm Hg) 121 11/24/2015 [facility] Diastolic (mm Hg) 39 11/24/2015 [facility] Systolic (mm Hg) 114 11/24/2015 [facility] Diastolic (mm Hg) 31 11/24/2015 [facility] Respitory Rate 15 11/24/2015 [facility] Respitory Rate 16 11/24/2015 [facility] Respitory Rate 14 11/24/2015 [facility] Temperature Oral (F) 97.9 F 11/17/2015 [facility] Heart Rate 61 11/17/2015 [facility] BMI Calculated 21.87 11/17/2015 [facility] Weight 57.784 11/17/2015 [facility] Height 162.56 cm 11/17/2015 [facility] Systolic (mm Hg) 142 03/24/2015 [facility] Diastolic (mm Hg) 49 03/24/2015 [facility] Systolic (mm Hg) 133 03/24/2015 [facility] Diastolic (mm Hg) 46 03/24/2015 [facility] Systolic (mm Hg) 142 03/24/2015 [facility] Diastolic (mm Hg) 45 03/24/2015 [facility] Respitory Rate 15 03/24/2015 [facility] Respitory Rate 19 03/24/2015 [facility] Respitory Rate 15 03/24/2015 [facility] Heart Rate 65 03/17/2015 [facility] Temperature Oral (F) 98.4 F 03/17/2015 [facility] Height 162.56 cm 03/17/2015 [facility] BMI Calculated 22.71 03/17/2015 [facility] Weight 60 0 03/17/2015 [facility] Weight 140 [...] ADM Date DC Date Status Source AUDIT [id number] 05/29/2013 05/29/2013 [facility] AUDIT [id number] 06/04/2013 06/04/2013 [facility] HE Provlisa dakota: VANI SHIPMAN, Status: Pen, Time: 11:45 AM [id number] 06/07/20 13 06/04/2013 [facility] AUDIT [id number] 06/18/2013 06/18/2013 [facility] AUDIT [id number] 07/12/2013 07/12/2013 [facility] Sebastian CUTLER dakota: VANI SHIPMAN, Status: Pen, Time: 12:15 PM [id number] 08/09/20 13 07/12/2013 [facility] AUDIT [id number] 08/09/2013 08/09/2013 [facility] AUDIT [id number] 08/16/2013 08/16/2013 [facility] Sebastian CUTLER dakota: VANI SHIPMAN, Status: Pen, Time: 2:15 PM [id number] 09/05/19 14 08/16/2013 [facility] Sebastian CUTLER dakota: VANI SHIPMAN, Status: Pen, Time: 2:15 PM [id number] 10/09/19 14 08/16/2013 [facility] AUDIT [id number] 10/09/2013 10/09/2013 [facility] AUDIT [id number] 10/25/2013 10/25/2013 [facility] FUP, Provi dakota: VANI SHIPMAN, Status: Ryan, Time: 2:15 PM [id number] 11/07/19 14 10/25/2013 [facility] AUDIT [id number] 11/06/2013 11/06/2013 [facility] AUDIT [id number] 11/08/2013 11/08/2013 [facility] Martin Souza MD 6m fu [id number] 12/12/2013 12/12/2013 [facility] MD 6m fu [id number] 12/12/2013 12/12/2013 [facility] Souza MD 6m fu [id number] 12/12/2013 12/12/2013 Castillo Souza MD 6m fu [id number] 12/12/2013 12/12/2013 Castillo Souza MD 6m fu [id number] 12/12/2013 12/12/2013 Castillo Souza MD 6m fu [id number] 12/12/2013 12/12/2013 Castillo Souza MD 6m fu [id number] 12/12/2013 12/12/2013 Castillo Souza MD 6m fu [id number] 12/12/2013 12/12/2013 Castillo Souza MD 6m fu [id number] 12/12/2013 12/12/2013 Cast[facility] Souza MD 6m fu [id number] 12/12/2013 12/12/2013 Castillo Souza MD 6m fu [id number] 12/12/2013 12/12/2013 Castillo Souza MD 6m fu [id number] 12/12/2013 12/12/2013 Cast[facility] Souza MD 6m fu [id number] 12/12/2013 12/12/2013 Castillo CUTLER, Provi dakota: VANI SHIPMAN, Status: Ryan, Time: 12:45 PM [id number] 01/04/20 14 11/08/2013 [facility] AUDIT [id number] 01/03/2014 01/03/2014 [facility] HE, Provi dakota: VANI SHIPMAN, Status: Ryan, Time: 2:00 PM [id number] 05/01/20 14 01/03/2014 [facility] Martin Souza MD 6m fu [id number] 06/13/2014 06/13/2014 [facility]illo Sou[facility] MD 6m fu [id number] 06/13/2014 06/13/2014 [facility] Souza MD 6m fu [id number] 06/13/2014 06/13/2014 Castillo Souza MD 6m fu [id number] 06/13/2014 06/13/2014 Castillo Souza MD 6m fu [id number] 06/13/2014 06/13/2014 Castillo Souza MD 6m fu [id number] 06/13/2014 06/13/2014 Castillo Souza MD 6m fu [id number] 06/13/2014 06/13/2014 Castillo Souza MD 6m fu [id number] 06/13/2014 06/13/2014 Castillo Souza MD 6m fu [id number] 06/13/2014 06/13/2014 Castillo Souza MD 6m fu [id number] 06/13/2014 06/13/2014 Castillo Souza MD 6m fu [id number] 06/13/2014 06/13/2014 Castillo Souza MD fu [id number] 06/13/2014 06/13/2014 Castillo Souza MD [facility] [id number] 12/07/19 15 12/06/2014 Castillo Souza MD [facility] [id number] 12/07/19 15 12/06/2014 Castillo Souza MD [facility] [id number] 12/07/19 15 12/06/2014 Castillo Souza MD [facility] [id number] 12/07/19 12/06/2014 Castillo Souza MD [facility] [id number] 12/07/19 15 12/06/2014 Castillo Souza MD [facility] [id number] 12/07/19 15 12/06/2014 Castillo Souza MD [facility] [id number] 12/07/19 15 12/06/2014 Castillo Souza MD [facility] [id number] 12/07/19 15 12/06/2014 Castillo Souza MD [facility] [id number] 12/07/19 15 12/06/2014 Castillo Souza MD [facility] [id number] 12/07/19 15 12/06/2014 Castillo Souza MD [facility] [id number] 12/07/19 15 12/06/2014 Castillo Souza MD 6m fu [id number] 12/12/2014 12/12/2014 Castillo Souza MD 6m fu [id number] 12/12/2014 12/12/2014 Castillo Souza MD 6m fu [id number] 12/12/2014 12/12/2014 Castillo Souza MD 6m fu [id number] 12/12/2014 12/12/2014 Castillo Souza MD fu [id number] 12/12/2014 12/12/2014 Castillo Souza MD [facility] [id number] 12/12/2014 12/12/2014 Castillo Souza MD [facility] [id number] 12/12/2014 12/12/2014 Castillo Souza MD [facility] [id number] 12/12/2014 12/12/2014 Castillo Souza MD [facility] [id number] 12/12/2014 12/12/2014 Castillo Souza MD fu [id number] 12/12/2014 12/12/2014 Castillo Souza MD [facility] [id number] 12/12/2014 12/12/2014 Castillo Souza MD MRI [id number] 12/18/2014 12/18/2014 Castillo Souza MD MRI [id number] 12/18/2014 12/18/2014 Castillo Souza MD MRI [id number] 12/18/2014 12/18/2014 Castillo Souza MD MRI [id number] 12/18/2014 12/18/2014 Castillo Souza MD MRI [id number] 12/18/2014 12/18/2014 Castillo Souza MD MRI [id number] 12/18/2014 12/18/2014 Castillo Souza MD MRI [id number] 12/18/2014 12/18/2014 Castillo Souza MD MRI [id number] 12/18/2014 12/18/2014 Castillo Souza MD MRI [id number] 12/18/2014 12/18/2014 Castillo Souza MD MRI [id number] 12/18/2014 12/18/2014 Castillo Souza MD MRI [id number] 12/18/2014 12/18/2014 MD Tao [facility] [id number] 12/21/19 15 12/20/2014 MD Tao Pittsia [id number] 12/21/19 15 12/20/2014 Castillo Souza MD [facility] [id number] 12/21/19 15 12/20/2014 MD Catalino Pitts [id number] 12/21/19 15 12/20/2014 MD Catalino Pitts [id number] 12/21/19 15 12/20/2014 MD Catalino Pitts [id number] 12/21/19 15 12/20/2014 MD Catalino Pitts [id number] 12/21/19 15 12/20/2014 MD Catalino Pitts [id number] 12/21/19 15 12/20/2014 MD Catalino Pitts [id number] 12/21/19 15 12/20/2014 MD Catalino Pitts [id number] 12/21/19 15 12/20/2014 MD Catalino Pitts [id number] 12/21/19 15 12/20/2014 MD Catalino Pitts [id number] 01/01/20 15 12/31/2014 MD Catalino Pitts [id number] 01/01/20 15 12/31/2014 MD Catalino Pitts [id number] 01/01/20 15 12/31/2014 Castillo Souza MD [facility] [id number] 01/01/20 15 12/31/2014 MD Tao Pittsia [id number] 01/01/20 15 12/31/2014 Castillo Souza MD [facility] [id number] 01/01/20 15 12/31/2014 Castillo Souza MD [facility] [id number] 01/01/20 15 12/31/2014 Castillo Souza MD [facility] [id number] 01/01/20 15 12/31/2014 Castillo Souza MD [facility] [id number] 01/01/20 15 12/31/2014 Castillo Souza MD [facility] [id number] 01/01/20 15 12/31/2014 Castillo Souza MD [facility] [id number] 01/01/20 15 12/31/2014 Castillo Souza MD Appointment [id number] 01/24/20 15 01/23/2015 Castillo Souza MD Appointment [id number] 01/24/20 15 01/23/2015 Castillo Souza MD Appointment [id number] 01/24/20 15 01/23/2015 Castillo Souza MD Appointment [id number] 01/24/20 15 01/23/2015 Castillo Souza MD Appointment [id number] 01/24/20 15 01/23/2015 Castillo Souza MD Appointment [id number] 01/24/20 15 01/23/2015 Castillo Souza MD Appointment [id number] 01/24/20 15 01/23/2015 Castillo Souza MD Appointment [id number] 01/24/20 15 01/23/2015 Castillo Souza MD Appointment [id number] 01/24/20 15 01/23/[address] [facility] Day Surgery [id number] Dangelo Hand 03/24/2015 03/24/2015 [facility] Martin Souza MD 6m fu [id number] 06/13/2015 06/13/2015 Castillo Souza MD 6m fu [id number] 06/13/2015 06/13/2015 Castillo Souza MD 6m fu [id number] 06/13/2015 06/13/2015 Castillo Souza MD 6m fu [id number] 06/13/2015 06/13/2015 Castillo Souza MD 6m [id number] 06/13/2015 06/13/2015 Castillo Souza MD 6m [id number] 06/13/2015 06/13/2015 Castillo Souza MD 6m [id number] 06/13/2015 06/13/2015 Castillo Souza MD 6m [id number] 06/13/2015 06/13/2015 Castillo Souza MD [facility] [id number] 06/13/2015 06/13/2015 Castillo Souza MD [facility] [id number] 06/17/20 15 06/17/2015 Castillo Souza MD [facility] [id number] 06/17/20 15 06/17/2015 Castillo Souza MD [facility] [id number] 06/17/20 15 06/17/2015 Castillo Souza MD [facility] [id number] 06/17/20 15 06/17/2015 Castillo Souza MD [facility] [id number] 06/17/20 15 06/17/2015 Castillo Souza MD [facility] [id number] 06/17/20 15 06/17/2015 Castillo Souza MD [facility] [id number] 06/17/20 15 06/17/2015 Castillo Souza MD [facility] [id number] 06/17/20 15 06/17/2015 Castillo Souza MD [facility] [id number] 06/17/20 15 06/17/2015 Castillo Souza MD [facility] [id number] 07/11/2015 07/11/2015 Castillo Souza MD DEXA [id number] 07/11/2015 07/11/2015 Castillo Souza MD DEXA [id number] 07/11/2015 07/11/2015 Castillo Souza MD DEXA [id number] 07/11/2015 07/11/2015 Castillo Souza MD DEXA [id number] 07/11/2015 07/11/2015 Castillo Souza MD DEXA [id number] 07/11/2015 07/11/2015 Castillo Souza MD DEXA [id number] 07/11/2015 07/11/2015 Castillo Souza MD DEXA [id number] 07/11/2015 07/11/2015 Castillo Souza MD DEXA [id number] 07/11/2015 07/11/2015 Castillo Souza [facility] [id number] Vani Shipman 08/19/2015 08/20/2015 [facility] O[facility] Day Surgery [id number] Dangelo Hand 11/24/2015 11/24/2015 [facility] Martin Souza MD Lab results [id number] 02/04/20 16 02/04/2016 Castillo Souza MD Lab results [id number] 02/04/20 16 02/04/2016 Castillo Souza MD Lab results [id number] 02/04/20 16 02/04/2016 Castillo Souza MD Lab results [id number] 02/04/20 16 02/04/2016 Castillo Souza MD Lab results [id number] 02/04/20 16 02/04/2016 Castillo Souza MD Lab results [id number] 02/04/20 16 02/04/2016 Castillo Souza MD Lab results [id number] 02/04/20 16 02/04/2016 Castillo Souza MD Lab results [id number] 02/04/20 16 02/04/2016 Castillo Souza MD Update [id number] 02/09/20 16 02/09/2016 Castillo Souza MD Update [id number] 02/09/20 16 02/09/2016 Castillo Souza MD Update [id number] 02/09/20 16 02/09/2016 Castillo Souza MD Update [id number] 02/09/20 16 02/09/2016 Castillo Souza MD Update [id number] 02/09/20 16 02/09/2016 Castillo Souza MD Update [id number] 02/09/20 16 02/09/2016 Castillo Souza MD Update [id number] 02/09/20 16 02/09/2016 Castillo Souza MD Update [id number] 02/25/20 16 02/25/2016 Castillo Souza MD Update [id number] 02/25/20 16 02/25/2016 Castillo Souza MD Update [id number] 02/25/20 16 02/25/2016 Castillo Souza MD Update [id number] 02/25/20 16 02/25/2016 Castillo Souza MD Update [id number] 02/25/20 16 02/25/2016 Castillo Souza MD Update [id number] 02/25/20 16 02/25/2016 Castillo Souza [facility] - [place] [facility] [id number] Vani Shipman 03/03/2016 03/04/2016 [facility] Martin Souza MD Unknown [id number] 03/11/20 16 03/11/2016 Castillo Souza MD Unknown [id number] 03/11/20 16 03/11/2016 Castillo Souza MD Unknown [id number] 03/11/20 16 03/11/2016 Castillo Souza MD Unknown [id number] 03/11/20 16 03/11/2016 Castillo Souza MD Unknown [id number] 03/11/20 16 03/11/2016 MD Tao Pittsia [id number] 05/06/20 16 05/06/2016 MD Catalino Pitts [id number] 05/06/20 16 05/06/2016 MD Tao Pittsia [id number] 05/06/20 16 05/06/2016 Castillo Souza MD Prolia [id number] 05/06/20 16 05/06/2016 Castillo Souza MD 6 MTH PROLIA [id number] 09/10/19 17 09/10/2016 Castillo Souza MD Labs [id number] 09/10/2016 09/10/2016 Castillo Souza MD Labs [id number] 09/10/2016 09/10/2016 Castillo Souza MD Labs [id number] 09/10/2016 09/10/2016 Castillo Souza MD Vitamin D [id number] 09/10/19 17 09/10/2016 Castillo Souza MD Vitamin D [id number] 09/10/19 17 09/10/2016 Castillo Souza MD Vitamin D [id number] 09/10/19 17 09/10/2016 Castillo Souza [facility] Day Surgery [id number] Dangel[facility] Hand 11/04/2016 11/04/2016 [facility] - [place] [facility] [id number] 02 Vani Shipman 07/16/2017 07/17/2017 [facility] [place] [facility] - [place] [facility] [id number] 03 Vani Shipman 05/02/2018 05/03/2018 [facility] [place] [facility] [place] [facility] [id number] Vani Shipman 05/11/2018 06/10/2018 [facility] [place] [facility] [place] [facility] [id number] Vani Shipman 06/12/2018 07/12/2018 [facility] [place] [facility] [place] [facility] [id number] Vani Shipman 07/13/2018 08/12/2018 [facility] [place] [facility] Out[facility] - [place] [facility] [id number] 04 Vani Shipman 07/17/2018 07/18/2018 [facility] [place] [facility] Out[facility] - [place] [facility] [id number] 05 Vani Shipman 07/19/2019 07/20/2019 [facility] [place] Procedures Procedure Code Date Perfomer Comments Source Abdominal hysterectomy [id number] [facility] [place] [place] [facility] [place] Appendectomy [id number] [facility] [place] [place] [facility] [place] Cholecystectomy [id number] [facility] [place] [place], [facility] [place] Colonoscopy [id number] [facility] [place] [place], [facility] [place] Excision of ganglion cyst [phone] [facility] [place],[facility] [place], [facility] [place] Assessment and Plan No Data Provided for This Section Plan of Care Plan of Care Date Source Medication Use 06/14/2013 Routine 01/03/2014 [facility] Medication Use 06/14/2013 Routine 11/08/2013 [facility] Medication Use 06/14/2013 Routine 11/06/2013 [facility] Medication Use 06/14/2013 Routine 10/25/2013 [facility] Medication Use 06/14/2013 Routine[QL] T SH, 3RD GENERATION W/REFLEX TO FT4 10/09/2013 Routine[QL] LIPID PANEL 10/09/2013 Routine[QLH] HEMOGLOBIN A1c 10/09/2013 Routine[QLH] CMP W/EGFR 10/09/2013 Routine[QL] CBC (INCLUDES DIFF/PLT) 10/09/2013 Routine 10/09/2013 [facility] Medication Use 06/14/2013 Routine 08/16/2013 [facility] Medication Use 06/14/2013 Routine 08/09/2013 [facility] Medication Use 06/14/2013 Routine 07/12/2013 [facility] Medication Use 06/14/2013 RoutineENT Ref erral 06/18/2013 Routine 06/18/2013 [facility] Social History Social History Date Source Social History TypeResponse Alcohol Never Smoking Status Never smoker; Exposure to Tobacco Smoke None; Cigarette Smoking Last 365 Days No; Reg Smoking Cessation Counseling No entered on: 11/04/16 10/28/2016 [facility] [place] Social History TypeResponse Alcohol Never Smoking Status Never smoker; Exposure to Tobacco Smoke None; Cigarette Smoking Last 365 Days No; Reg Smoking Cessation Counseling No entered on: 11/04/16 10/28/2016 [facility] [place] Social History TypeResponse Alcohol Never Smoking Status Never smoker; Exposure to Tobacco Smoke None; Cigarette Smoking Last 365 Days No; Reg Smoking Cessation Counseling No 10/28/2016 [place] Social History TypeResponse Alcohol Never Smoking Status Never smoker; Exposure to Tobacco Smoke None; Cigarette Smoking Last 365 Days No; Reg Smoking Cessation Counseling No entered on: 11/04/16 10/28/2016 RAMESH Melody Social History ElementQualifiersDate Rep orted Caffeine: yes. frequency:, 1-5 Sep 10, 2016 Exercise: yes. walking Sep 10, 2016 Alcohol: no. Sep 10, 2016 09/10/2016 Castillo Souza Marital History - Currently (Active) Never A Smoker (Active) Never Drank Alcohol (Active) 01/03/2014 [facility] Family History Value Date S ource Maternal history of Ovarian Cancer (V16. 41); (Active) Maternal history of Hypertension (V17.49); (Active) Paternal history of Lung Cancer (V16.1); (Active) 01/03/2014 [facility] Maternal history of Ovarian Cancer (V16. 41); (Active) Maternal history of Hypertension (V17.49); (Active) Paternal history of Lung Cancer (V16.1); (Active) 11/08/2013 [facility] Maternal history of Ovarian Cancer (V16. 41); (Active) Maternal history of Hypertension (V17.49); (Active) Paternal history of Lung Cancer (V16.1); (Active) 11/06/2013 [facility] Maternal history of Ovarian Cancer (V16. 41); (Active) Maternal history of Hypertension (V17.49); (Active) Paternal history of Lung Cancer (V16.1); (Active) 10/25/2013 [facility] Maternal history of Ovarian Cancer (V16. 41); (Active) Maternal history of Hypertension (V17.49); (Active) Paternal history of Lung Cancer (V16.1); (Active) 10/09/2013 [facility] Maternal history of Ovarian Cancer (V16. 41); (Active) Maternal history of Hypertension (V17.49); (Active) Paternal history of Lung Cancer (V16.1); (Active) 08/16/2013 [facility] Maternal history of Ovarian Cancer (V16. [...] history of Lung Cancer (V16.1); (Active) 06/04/2013 [facility] Maternal history of Ovarian Cancer (V16. 41); (Active) Maternal history of Hypertension (V17.49); (Active) Paternal history of Lung Cancer (V16.1); (Active) 05/29/2013 [facility] Advance Directives Order Name Results Value Date Source Advance Directives Advance Dir ectives No Advance Directives available. 01/03/2014 [facility] Advance Directives Advance Dir ectives No Advance Directives available. 11/08/2013 [facility] Advance Directives Advance Dir ectives No Advance Directives available. 11/06/2013 [facility] Advance Directives Advance Dir ectives No Advance Directives available. 10/25/2013 [facility] Advance Directives Advance Dir ectives No Advance Directives available. 10/09/2013 [facility] Advance Directives Advance Dir ectives No Advance Directives available. 08/16/2013 [facility] Advance Directives Advance Dir ectives No Advance Directives available. 08/09/2013 [facility] Advance Directives Advance Dir ectives No Advance Directives available. 07/12/2013 [facility] Advance Directives Advance Dir ectives No Advance Directives available. 06/18/2013 [facility] Advance Directives Advance Dir ectives No Advance Directives available. 06/04/2013 [facility] Advance Directives Advance Dir ectives No Advance Directives available. 05/29/2013 [facility] Functional Status No Data Provided for This Section
--- OUTSIDE RECORDS SUMMARY | 2020-07-25 14:21 | XMS REPORT | Continuity of Care Document ---
Author Author [facility] t Organization [facility] Address [address] [place] [address] Phone Unavailable Care Team Providers Care Development Coordinator Name Role Phone ALONZO WADDELL, MD LUDWIG PCP Tracey Kitchen Attphys Unavailable Khadar HATHAWAY Attphys Unavailable Mine MUNOZ Attphys Unavailable Khadar GREENE Attphys Unavailable RODNEY ROSADO Attphys Unavailable Tracey Rosado Attphys Jamila DAMON Attphys Unavailable Adan Hand Attphys Khadar HATHAWAY Admphys Unavailable RODNEY ROSADO Admphys Unavailable Payers Payer Name Policy Type Policy Number Effective Date Expiration Date S efra [employer] [id number] 2013 00:00:00 [facility] Problems Condition Name Condition Details Condition Category Status Onset Date Resolution Date Last Treatment Date Treating Clinician Comments Source CERVICAL CERV ICAL Active 05/11/2018 RAMESH [place] Diagnosis Active 2018-05-11 08:00:00 2018-07-13 21:49:00 Joshua HARTMANN UNK Active 10/18/2016 [facility] Active 2016-10-18 00:00:00 2016-11-04 05:56:00 Kyle Rajput Z12.31 - ENCNTR SCREEN MAMMOGRAM FOR MA Z12.31 - ENCNTR SCREEN MAMMOGRAM FOR MA Active 07/30/2015 [facility] Diagnosis Active 2015-07-30 00:01:00 2015-08-19 14:20:00 mayte Regulo 585.4 585. 4 Active 03/04/2015 [facility] Diagnosis Active 2015-03-04 00:00:00 2015-03-24 09:19:00 [facility] Regulo 585.2 585. 2 Active 07/30/2014 [facility] Active 2014-07-30 00:00:00 2014-10-18 13:32:00 [facility] Mechanical complication due to peritoneal dialysis cat heter Peritoneal dialysis catheter mechanical complication Problem Active [facility] Ataxia Ataxia Problem Active [facility] Transient cerebral ischemia Problem Active [facility] Peritoneal dialysis catheter dysfunction Problem Active [facility] End-stage renal disease on peritoneal dialysis Problem Active [facility] Cerebrovascular accident (CVA) Problem Active [facility] Weakness Weak ness 01/29/2019 [facility] [place] Problem 2019-01-29 11:39:50 [facility] Abnormal posture Abno rmal posture 03/01/2019 [facility] [place] Problem 2019-03-01 11:34:53 [facility] Encounter for screening mammogram for malignant neopla sm of breast Encounter for screening mammogram for malignant neoplasm of breast 07/22/2019 B[facility] Hung Problem 2019-07-22 00:09:36 [facility] Spondylolisthesis, cervical region Spondylolisthesis, cervical region 11/19/2018 [facility] [place] Problem 2018-11-19 14:24:21 [facility] Muscle weakness (generalized) Muscle weakness (generalized) 03/01/2019 [facility] [place] Problem 2019-02 11:34:53 [facility] Gastroesophageal reflux disease (disorder) Gastroesophageal reflux disease (disorder) Active Problem 07/22/2019 BOB [place], [place], RAMESH [place], [facility] [place] Problem Active 2019-07-22 00:09:36 [facility] Anemia of chronic renal failure (disorder) Anemia of chronic renal failure (disorder) Active Problem 07/22/2019 [facility] [place], [place],[facility] [place], [facility] [place] Problem Active 2019-07-22 00:09:36 [facility] Diabetes mellitus (disorder) D iabetes mellitus (disorder) Active Problem 07/22/2019 [facility] [place], [place],[facility] [place], [facility] [place] Problem Active 2019-07-22 00:09:36 [facility] Hearing loss (finding) Hear ing loss (finding) Active Problem 07/22/2019 [facility] [place], [place],[facility] [place], [facility] [place] Problem Active 2019-07-22 00:09:36 [facility] Hypertensive disorder, systemic arterial (disorder) Hypertensive disorder, systemic arterial (disorder) Active Problem 07/22/2019 [facility] [place], [place],[facility] [place], [facility] [place] Problem Active 2019-07-22 00:09:36 [facility] Hypercholesterolemia (disorder) Hypercholesterolemia (disorder) Active Problem 07/22/2019 [facility] [place], [place],[facility] [place], [facility] [place] Problem Active 2019-07-22 00:09:36 [facility] Hypertriglyceridemia (disorder) Hypertriglyceridemia (disorder) Active Problem 07/22/2019 [facility] [place], [place],[facility] [place], [facility] [place] Problem Active 2019-07-22 00:09:36 [facility] Hypothyroidism (disorder) Hypo thyroidism (disorder) Active Problem 07/22/2019 [facility] [place], [place],[facility] [place], [facility] [place] Problem Active 2019-07-22 00:09:36 Kasi jackson [place] Renal failure syndrome (disorder) Renal failure syndrome (disorder) Active Problem 07/22/2019 [facility] [place], [place],[facility] [place], [facility] [place] Problem Active 2019-07-22 00:09:36 [facility] Incisional hernia of anterior abdominal wall (disorder ) Incisional hernia of anterior abdominal wall (disorder) Active Problem 07/22/2019 [facility] [place], [place],[facility] [place], [facility] [place] Problem Active 2019-07-22 00:09:36 [facility] Anxiety (finding) Anxi ety (finding) Active Problem 07/22/2019 [facility] [place],[facility], [facility] [place] [place] Problem Active 2019-07-22 00:09:36 Jsohua Rajput Hypothyroidism Hypo thyroidism Active 01/03/2014 [facility] Problem Active 2014-01-03 19:04:04 [facility] Essential Hypertension Esse ntial Hypertension Active 01/03/2014 [facility] Problem Active 2014-01-03 19:04:04 Joshua Rajput Chronic Kidney Disease, Stage 2 Chronic Kidney Disease, Stage 2 Active 01/03/2014 [facility] Problem Active 19:04:04 Joshua Rajput Vaccines Prophylactic Need Against Influenza Vaccines Prophylactic Need Against Influenza Active 11/08/2013 [facility] Problem Active 2013-11-08 13:32:05 Fer Rajput Fainting - Unconscious About 1-5 Minutes Fainting - Unconscious About 1-5 Minutes Active 06/18/2013 [facility] Problem Active 2013-06-18 16:04:19 Joshua Rajput Diabetes Mellitus Under Control Diabetes Mellitus Under Control Active 01/03/2014 [facility] Problem Active 19:04:04 Joshua Rajput Nonspecific Abnormal Results Of Function Studies Nonspecific Abnormal Results Of Function Studies Active 11/08/2013 [facility] Problem Active 2013-11-08 13:32:05 [facility] Automatism Auto matism Active 11/08/2013 [facility] Problem Active 2013-11-08 13:32:05 [facility] 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 Active 11/08/2013 [facility] Problem Active 2013-11-08 13:32: 05 [facility] Anxiety Disorder NOS Anxi ety Disorder NOS Active 01/03/2014 [facility] Problem Active 2014-01-03 19:04:04 [facility] Vitamin B12 Deficiency Corinna min B12 Deficiency Active 01/03/2014 [facility] Problem Active 2014-01-03 19:04:04 [facility] Hyperlipidemia Hype rlipidemia Active 01/03/2014 [facility] Problem Active 2014-01-03 19:04:04 [facility] Esophageal Reflux Esop hageal Reflux Active 01/03/2014 [facility] Problem Active 2014-01-03 19:04:04 [facility] Urinary Incontinence Urin kenn Incontinence Active 01/03/2014 [facility] Problem Active 2014-01-03 19:04:04 Joshua Rajput Vitamin D deficiency Corinna min D deficiency Active Problem 06/24/2020 [facility] Problem Active 2020-06-24 02:46:36 Joshua Rajput Osteoporosis Oste oporosis Active Problem 06/24/2020 [facility] Problem Active 2020-06-24 02:46:36 Joshua Rajput ESRD (end stage renal disease) ESRD (end stage renal disease) Active Problem 06/24/2020 [facility] Problem Active 2020-06-24 02:46:36 Joshua Rajput Other chcf (current) drug therapy Other chcf (current) drug therapy Active Diagnosis 06/24/2020 [facility] Diagnosis Active 2020-06-24 02:46:36 [facility] Rheumatoid arthritis of multiple sites without rheumat oid factor Rheumatoid arthritis of multiple sites without rheumatoid factor Active Diagnosis 06/24/2020 [facility] Diagnosis Active 2020-06-24 02:46:36 Joshua Rajput Muscle spasm Musc le spasm Active Problem 06/24/2020 [facility] Problem Active 2020-06-24 02:46:36 Joshua Rajput Osteopenia of multiple sites O steopenia of multiple sites Active Problem 06/24/2020 [facility] Problem Active 2020-06-24 02:46:36 Joshua Rajput Long-term (current) use of other [...] 03/16/2016 [facility] Diagnosis Active 2016-03-16 02:55:00 Joshua Rajput Trigger finger of left hand, unspecified finger Trigger finger of left hand, unspecified finger Active Diagnosis 09/15/2019 [facility] Diagnosis Active 2019-09-15 03:47:23 Al nitza Rajput CHRONIC KIDNEY DISEASE, STAGE 4 (SEVERE) CHRONIC KIDNEY DISEASE, STAGE 4 (SEVERE) Active [facility] Active 2015-12-16 15:02:00 Joshua Rajput END STAGE RENAL DISEASE END STAGE RENAL DISEASE Active [facility] Diagnosis Active 2016-11-04 05:56:00 Joshua Rajput Cervicalgia Cerv icalgia 08/18/2018 03/01/2019 [facility] Melody [facility] [place] Problem 2018-08-18 05: 46:36 2019-03-01 11:34:53 2019-03-01 11:34:53 Joshua vital Allergies, Adverse Reactions, Alerts Allergy Name Allergy Type Status Severity Reaction(s) Onset Date Inacti ve Date Treating Clinician Comments Source No Known Allergies DA Active U 2020-07-19 00:00:00 [facility] Lansoprazole Allergy to substance Active Moderate ITCHING 2020-04-22 00 :00:00 [facility] No Known Allergies DA Active U 2020-04-15 00:00:00 [facility] No Known Allergies DA Active U 2020-04-08 00:00:00 [facility] Plavix Plavix Active rash 2020-02-21 00:00:00 Joshua Rajput Fosamax Fosamax Active severe muscle cramping 2020-02-21 00:00:00 Joshua Rajput clopidogrel DA Active U 2015-11-23 00:00:00 [facility] No Known Drug Allergies No Known Drug Allergies Active [facility] [address] Plavix TABS Plavix TABS Active [facility] Family History Family Member Diagnosis Comments Start Date Stop Date Source Unknown Family Member Family History 2013-05-29 15:32:01 2 15:32:01 [facility] Social History Social Habit Start Date Stop Date Quantity Comments Source Caffeine: 2016-09-10 00:00:00 2016-09-10 00:00:00 [facility] Social History 2014-01-03 19:04:04 2014-01-03 19:04:04 [facility] Sex Assigned At 1935 00:00:00 1935 00:00:00 Female [facility] Medications Ordered Medication Name Filled Medication Name Start Date Stop Da te Current Medication? Ordering Clinician Indication Dosage Frequency Signature (SIG) Comments Components Source Prolia 2020-05-21 00:00:00 Yes Martin Souza as d irected [facility] Nubia 2020-02-27 02:46:16 Yes Jeffry Parker 1 ta blet as needed [facility] Amlodipine Besylate 2020-02-27 02:46:16 Yes Jeffry Parker 1/2 tablet [facility] Paroxetine HCl 2020-02-27 02:46:16 Yes Jeffry Parker 1 tablet in the morning [facility] Levothyroxine Sodium 2020-02-27 02:46:16 Yes Jeffry Parker 1 tablet [facility] Metoprolol Tartrate 2020-02-27 02:46:16 Yes Jeffry Parker 1 tablet [facility] Calcitriol 2020-02-27 02:46:16 Yes Jeffry Parker 1 capsule [facility] Famotidine 2020-02-27 02:46:16 Yes Jeffry Parker 1 tablet [facility] Atorvastatin Calcium 2020-02-27 02:46:16 Yes Jeffry Parker 1 tablet [facility] Pantoprazole Sodium 2020-02-27 02:46:16 Yes Jeffry Parker 1 tablet [facility] Aspirin 2020-02-27 02:46:16 Yes Jeffry Parker 2 ta blets [facility] Terazosin HCl 2020-02-27 02:46:16 Yes Jeffry Parker 1 null at bedtime [facility] Clopidogrel Bisulfate 2020-02-27 02:46:16 Yes Jeffry Parker 1 tablet [facility] Mirtazapine 2020-02-27 02:46:16 Yes Jeffry Parker 2 tablets at bedtime [facility] Co Q 10 2020-02-27 02:46:16 Yes Jeffry Parker 1 capsule with a meal [facility] Alprazolam 2020-02-27 02:46:16 Yes Jeffry Parker 1 tablet [facility] Sensipar 2020-02-27 02:46:16 Yes Jeffry Parker 1 tablet with food or after a meal [facility] Prolia 2020-02-24 00:00:00 Yes Jeffry Parker as di rected [facility] Warfarin Sodium (Coumadin) 5 Mg TABLET Warfarin Sodium (Coum rob) 5 Mg TABLET 2020-01-31 11:04:00 Yes 5 Daily At 1700 [facility] Aspirin 2019-09-15 03:47:23 Yes Tatianna Stone 2 t ablets [facility] Amlodipine Besylate 2019-09-15 03:47:23 Yes Tatianna Stone 1 tablet [facility] Sensipar 2019-09-15 03:47:23 Yes Tatianna Stone 1 tablet with food or after a meal [facility] Vitamin D (Ergocalciferol) 2018-11-13 00:00:00 Yes Jeffry Parker 1 capsule [facility] Prolia 2018-10-05 00:00:00 Yes Martin Souza as d irected [facility] [place] 3 2018-04-07 02:47:54 Yes Makeda Ozuna 1 capsule [facility] Famotidine 2018-04-07 02:47:54 Yes Makeda Ozuna 1 tablet as needed [facility] Cyanocobalamin 2018-04-07 02:47:54 Yes Makeda Ozuna 1 ml [facility] Ergocalciferol 2018-04-07 02:47:54 Yes Makeda Ozuna 1 capsule [facility] Tizanidine HCl 2018-04-07 02:47:54 Yes Makeda Ozuna 1 tablet as needed [facility] Sodium Bicarbonate 2017-10-17 03:45:34 Yes Makeda Ozuna 1 tablet [facility] Prolia 2017-08-31 00:00:00 Yes Makeda Ozuna 60M G SQ [facility] Prolia 2017-08-02 03:46:45 Yes Latifa Fakoya 60MG SQ [facility] Vitamin D (Ergocalciferol) 2017-07-23 03:45:21 Yes Owen a Fakoya 1 capsule [facility] Aspir-81 2017-07-23 03:45:21 Yes Latifa Fakoya 1 tablet [facility] Prolia 2017-06-22 00:00:00 Yes Latifa Fakoya 60MG SQ [facility] Metoprolol Tartrate 2017-04-14 02:46:16 Yes Wajeeha Ranjit 1 tablet [facility] Aspir-81 2017-04-14 02:46:16 Yes Wajeeha Ranjit 1 tablet [facility] Prolia 2017-04-14 02:46:16 Yes Wajeeha Ranjit 60M G SQ [facility] Calcitriol 2017-04-14 02:46:16 Yes Wajeeha Ranjit 1 capsule [facility] Levothyroxine Sodium 2017-04-14 02:46:16 Yes Wajeeha Ranjit 1 tablet [facility] Paroxetine HCl 2017-04-14 02:46:16 Yes Wajeeha Ranjit 1 tablet in the morning [facility] [place] 3 2017-04-14 02:46:16 Yes Wajeeha Ranjit 1 capsule [facility] Sodium Bicarbonate 2017-04-14 02:46:16 Yes Wajeeha Ranjit 1 tablet [facility] Famotidine 2017-04-14 02:46:16 Yes Wajeeha Ranjit 1 tablet as needed [facility] Ergocalciferol 2017-04-14 02:46:16 Yes Wajeeha Ranjit 1 capsule [facility] Cyanocobalamin 2017-04-14 02:46:16 Yes Wajeeha Ranjit 1 ml [facility] Amlodipine Besylate 2017-04-14 02:46:16 Yes Wajeeha Ranjit 1/2 tablet [facility] Voltaren Gel 2017-04-05 00:00:00 Yes Latifa Fakoya apply to affected area [facility] Vitamin D (Ergocalciferol) 2016-12-20 00:00:00 Yes Frances Souza 1 capsule [facility] Oxycodone Hydrochloride 5 MG Oral Tablet 2016-11-04 17:10:00 No 5 mg, Route: PO, Drug form: TAB, ONCE, Dosing Weight 59.545, kg, PRN Pain Score 4- 6, Start date: 11/04/16 11:10:00 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 [facility] orimarlena Rajput labetalol (ANES) 2016-11-04 16:12:00 No Route: IV, Drug form: INJ, ONCE, Stop date: 11/04/16 10:12:00 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 Kyle verasrimarlena Rajput ePHEDrine (ANES) 2016-11-04 15:58:00 No Route: IV, Drug form: INJ, ONCE, Stop date: 11/04/16 9:58:00 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 Al nitza Rajput famotidine (ANES) 2016-11-04 15:58:00 No Route: IV, Drug form: INJ, ONCE, Stop date: 11/04/16 9:58:00 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 Al nitza Rajput ondansetron (ANES) 2016-11-04 15:58:00 No Route: IV, Drug form: INJ, ONCE, Stop date: 11/04/16 9:58:00 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 Al nitza Rajput fentaNYL (ANES) 2016-11-04 15:58:00 No Route: IV, Drug form: INJ, ONCE, Stop date: 11/04/16 9:58:00 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 Al nitza Rajput propofol (ANES) 2016-11-04 15:58:00 No Route: IV, Drug form: INJ, ONCE, Stop date: 11/04/16 9:58:00 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 Al nitza Armijoann lidocaine (ANES) 2016-11-04 15:58:00 No Route: IV, Drug form: INJ, ONCE, Stop date: 11/04/16 9:58:00 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 Al nitza Rajput rocuronium (ANES) 2016-11-04 15:58:00 No Route: IV, Drug form: INJ, ONCE, Stop date: 11/04/16 9:58:00 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 Al nitza Rajput neostigmine (ANES) 2016-11-04 15:58:00 No Route: IV, Drug form: INJ, ONCE, Stop date: 11/04/16 9:58:00 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 Al nitza Rajput glycopyrrolate (ANES) 2016-11-04 15:58:00 No Route: IV, Drug form: INJ, ONCE, Stop date: 11/04/16 9:58:00 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 [facility] acetaminophen-codeine #3 2016-11-04 15:53:00 No 2 tab, Route: PO, Drug Form: TAB, Dosing Weight 59.545, kg, Q4H, PRN Pain Score 4-6, Start date: 11/04/16 9:53:00 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, Duration: 30 day, Stop date: 12/04/16 9:52:00 CDT [facility] Morphine 2016-11-04 15:53:00 No 2 mg, Route: IVP, Q3H, Dosing Weight 59.545, kg, PRN Pain Score 1-3, Start date: 11/04/16 9:53:00 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, Duration: 30 day, Stop date: 12/04/16 9:52:00 CDT [facility] vancomycin (ELENITAS) (ELENITAS) 2016-11-04 15:19:00 No Route: IV, Drug form: INJ, Start date: 11/04/16 9:19:00 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, Stop date: 11/04/16 10:19:00 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 [facility] ceFAZolin (ELENITAS) (ELENITAS) 2016-11-04 15:19:00 No Route: IV, Drug form: INJ, Start date: 11/04/16 9:19:00 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, Stop date: 11/04/16 10:19:00 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 [facility] sodium chloride 0.9% 500 ml INJ (ELENITAS) 2016-11-04 15:10:00 No Route: IV, Total Volume: 500, Start date: 11/04/16 9:10:00 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, Stop date: 11/04/16 10:10:00 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 [facility] sodium chloride 0.9% 500 ml INJ 500 mL 2016-11-04 14:04:00 No 500 mL, Rate: 40 ml/hr, Infuse over: 12.5 hr, Route: IV, Dosing Weight 59.545 kg, Total Volume: 500, Start date: 11/04/16 8:04:00 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, Duration: 1 day, Stop date: 11/05/16 8:03:00 [facility] Lactated Ringers 1,000 mL 2016-11-04 14:03:00 No 1,000 mL, Rate: 40 ml/hr, Infuse over: 25 hr, Route: IV, Dosing Weight 59.545 kg, Total Volume: 1,000, Start date: 11/04/16 8:03:00 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, Duration: 1 day, Stop date: 11/05/16 8:02:00 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 [facility] Vitamin D3 50,000 intl units oral capsule 2016-10-28 16:01:00 Yes 50,000 IntlUnit = 1 cap, PO, qWeek, # 12 cap, 0 Refill(s) [facility] glimepiride 1 mg oral tablet 2016-10-28 16:00:00 Yes 1 mg = 1 tab, PO, Daily, 0 Refill(s) [facility] Ancef 2016-10-28 16:00:00 No Notes: [facility] 2016-10-28 16:00:00 No 2001 mg: infuse over 2.5 hours MEDICATION WASTE Product Size: 1000 mg Product Wasted: ___ mg [facility] Famotidine 10 MG Oral Tablet 2016-10-28 16:00:00 Yes 10 mg = 1 tab, PO, BID, 0 Refill(s) [facility] Nubia 2016-09-14 03:50:08 Yes Martin Souza 1 t ablet as needed [facility] Vitamin D (Ergocalciferol) 2016-09-10 00:00:00 Yes Frances Burrowser 1 capsule [facility] Synthroid 2016-03-16 02:55:00 Yes Makeda Ozuna 1 tablet every morning on an empty stomach [facility] Losartan Potassium 2016-03-16 02:55:00 Yes Makeda Ozuna 1 tablet [facility] Tricor 2016-03-16 02:55:00 Yes Makeda Ozuna 1 t ablet [facility] PredniSONE 2016-02-09 00:00:00 Yes Martin Souza 2 tablets with food or milk [facility] Nexium 2016-02-09 00:00:00 Yes Martin Souza 1 ca psule [facility] propofol (ANES) 2015-11-24 14:58:00 No Route: IV, Drug form: INJ, ONCE, Stop date: 11/24/15 9:58:00 Irene az Regulo lidocaine (ANES) 2015-11-24 14:58:00 No Route: IV, Drug form: INJ, ONCE, Stop date: 11/24/15 9:58:00 Irene Retana fentaNYL (ELENITAS) 2015-11-24 14:53:00 No Route: IV, Drug form: INJ, ONCE, Stop date: 11/24/15 9:53:00 Irene Retana midazolam (ELENITAS) 2015-11-24 14:53:00 No Route: IV, Drug form: SOLN, ONCE, Stop date: 11/24/15 9:53:00 Irene Retana ceFAZolin (ELENITA) 2015-11-24 14:53:00 No Route: IV, Drug form: INJ, ONCE, Stop date: 11/24/15 9:53:00 Irene Retana Oxycodone 2015-11-24 14:51:00 No Notes: (Sa me as: Roxicodone) [facility] Flumazenil 2015-11-24 14:51:00 No Notes: (S juan as: Romazicon) [facility] Meperidine 2015-11-24 14:51:00 No Notes: (S juan As: Demerol) [facility] Naloxone 2015-11-24 14:51:00 No Notes: Same as Narcan [facility] Fentanyl 2015-11-24 14:51:00 No Notes: (Same as: Sublimaze) Preservative free. [facility] Hydromorphone 2015-11-24 14:51:00 No 0.5 mg, 0.5 mL, Route: IVP, Drug form: INJ, Q5Min, Dosing Weight 57.784, kg, PRN Pain Score 7-10, Start date: 11/24/15 9:51:00, Duration: 4 doses or times, Stop date: Limited # of times [facility] Ondansetron 2015-11-24 14:51:00 No Notes: (Same as: Zofran) MEDICATION WASTE Product Size: 4 mg Product Wasted: ___ mg [facility] Hydralazine 2015-11-24 14:51:00 No Notes: (Same as: Apresoline) Push over 5 minutes Joshua Rajput ondansetron (YG) 2015-11-24 14:43:00 No Route: IV, Drug form: INJ, ONCE, Stop date: 11/24/15 9:43:00 Irene Retana vancomycin (ANES) ([facility]) 2015-11-24 14:11:00 No Route: IV, Drug form: INJ, Start date: 11/24/15 9:11:00, Stop date: 11/24/15 10:11:00 [facility] Sodium Chloride 0.154 MEQ/ML Injectable Solution 2015-11-24 14:0 9:00 No 500 mL, Rate: 25 ml/hr, Infu se over: 20 hr, Route: IV, Dosing Weight 57.784 kg, Total Volume: 500, Start date: 11/24/15 9:09:00, Duration: 30 day, Stop date: 12/24/15 9:08:00 [facility] Sodium Chloride 0.9% IV (ELENITAS) ([facility]) 2015-11-24 14:08:00 N o Route: IV, Total Volume: 500, Start date: 11/24/15 9:08:00, Stop date: 11/24/15 10:08:00 [facility] Calcium Chloride 0.0014 MEQ/ML / Potassi um Chloride 0.004 MEQ/ML / Sodium Chloride 0.103 MEQ/ML / Sodium Lactate 0.028 MEQ/ML Injectable Solution 2015-11-24 14:08:00 No 1,000 mL, Rate: 25 ml/hr, Infuse over: 40 hr, Route: IV, Dosing Weight 57.784 kg, Total Volume: 1,000, Start date: 11/24/15 9:08:00, Duration: 30 day, Stop date: 12/24/15 9:07:00 [facility] Vancomycin 2015-11-17 22:00:00 No 2001 mg: infuse over 2.5 hours MEDICATION WASTE Product Size: 1000 mg Product Wasted: ___ mg [facility] Ancef 2015-11-17 22:00:00 No Notes: Same as : Mariam [facility] Hydralazine 2015-03-24 18:35:00 No 10 mg, Route: IVP, Q20Min, Dosing Weight 60, kg, PRN Elevated BP, Start date: 03/24/15 13:35:00, Duration: 2 doses or times, Stop date: Limited # of times [facility] Glycopyrrolate 2015-03-24 18:35:00 No 0.2 mg, Route: IVP, Q5Min, Dosing Weight 60, kg, PRN Bradycardia, Start date: 03/24/15 13:35:00, Duration: 3 doses or times, Stop date: Limited # of times [facility] Ondansetron 2015-03-24 18:35:00 No 4 mg, Route: IVP, ONCE, Dosing Weight 60, kg, PRN Nausea & Vomiting, Start date: 03/24/15 13:35:00 [facility] Flumazenil 2015-03-24 18:35:00 No 0.2 mg, Route: IVP, PRN, Dosing Weight 60, kg, PRN Benzodiazepine Reversal, Initial dose, Start date: 03/24/15 13:35:00, Duration: 30 day, Stop date: 04/23/15 13:34:00 [facility] Meperidine 2015-03-24 18:35:00 No 12.5 mg, Route: IVP, Q30Min, Dosing Weight 60, kg, PRN Other -See Comment, For shivering, Start date: 03/24/15 13:35:00, Duration: 2 doses or times, Stop date: Limited # of times [facility] Promethazine 2015-03-24 18:35:00 No 6.25 mg, Route: IVPB, ONCE, Dosing Weight 60, kg, PRN Nausea & Vomiting, Start date: 03/24/15 13:35:00 [facility] Naloxone 2015-03-24 18:35:00 No 0.04 mg, Route: IVP, Q2MIN, Dosing Weight 60, kg, PRN Narcotic Reversal, Start date: 03/24/15 13:35:00, Duration: 8 doses or times, Stop date: Limited # of times [facility] Morphine 2015-03-24 18:35:00 No 4 mg, Route: IVP, Q5Min, Dosing Weight 60, kg, PRN Pain Score 7-10, Start date: 03/24/15 13:35:00, Duration: 3 doses or times, Stop date: Limited # of times [facility] Hydromorphone 2015-03-24 18:35:00 No 0.5 mg, Route: IVP, Q5Min, Dosing Weight 60, kg, PRN Pain Score 7-10, Start date: 03/24/15 13:35:00, Duration: 4 doses or times, Stop date: Limited # of times [facility] Diphenhydramine 2015-03-24 18:35:00 No 12.5 mg, Route: IVP, Drug form: INJ, Q6H, Dosing Weight 60, kg, PRN Itching, Start date: 03/24/15 13:35:00, Duration: 30 day, Stop date: 04/23/15 13:34:00 [facility] Fentanyl 2015-03-24 18:35:00 No 25 microgram, Route: IVP, Q5Min, Dosing Weight 60, kg, PRN Pain Score 4-6, Start date: 03/24/15 13:35:00, Duration: 4 doses or times, Stop date: Limited # of times [facility] Ketorolac 2015-03-24 18:35:00 Yes 4 days MEDICATION WASTE Product Size: 30 mg Product Wasted: ___ mg [facility] Oxycodone 2015-03-24 18:35:00 No 10 mg, Route: PO, Drug form: TAB, Q4H, Dosing Weight 60, kg, PRN Pain Score 7-10, Start date: 03/24/15 13:35:00, Duration: 30 day, Stop date: 04/23/15 13:34:00 [facility] Metoprolol 2015-03-24 18:35:00 No 1 mg, Route: IVP, Q5Min, Dosing Weight 60, kg, PRN Other -See Comment, Start date: 03/24/15 13:35:00, Duration: 5 doses or times, Stop date: Limited # of times [facility] acetaminophen-codeine #3 2015-03-24 18:01:00 No 1 tab, Route: PO, Drug Form: TAB, Dosing Weight 60, kg, Q4H, PRN Pain Score 4-6, Start date: 03/24/15 13:01:00, Duration: 30 day, Stop date: 04/23/15 13:00:00 [facility] Morphine 2015-03-24 18:01:00 No 2 mg, Route: IVP, Q3H, Dosing Weight 60, kg, PRN Pain Score 1-3, Start date: 03/24/15 13:01:00, Duration: 30 day, Stop date: 04/23/15 13:00:00 [facility] Jeffrey horn Ancef 2015-03-24 16:43:00 No 2 gm, Route: IVPB, ONCE, Dosing Weight 60, kg, Start date: 03/24/15 11:43:00, Duration: 1 doses or times, Stop date: 03/24/15 11:43:00 [facility] Sodium Chloride 0.154 MEQ/ML Injectable Solution 2015-03-23 13:2 6:00 No 500 mL, Rate: 25 ml/hr, Infu se over: 20 hr, Route: IV, Dosing Weight 60 kg, Total Volume: 500, Start date: 03/23/15 8:26:00, Duration: 2 day, Stop date: 03/25/15 8:25:00 [facility] Vancomycin 2015-03-17 20:00:00 No N otes: TIME CRITICAL MEDICATION [facility] Vitamin B-12 2015-01-01 02:59:57 Yes Martin Souza 15 ml [facility] Omeprazole 2015-01-01 02:59:57 Yes Martin Souza 2 capsules [facility] Glimepiride 2015-01-01 02:59:57 Yes Martin Souza 1 tablet with breakfast or the first main meal of the day [facility] Atorvastatin Calcium 2015-01-01 02:59:57 Yes Martin Souza 1 tablet [facility] Fenofibrate 2015-01-01 02:59:57 Yes Martin Souza 1 tablet [facility] Glimepiride 1 MG Oral Tablet 2014-01-03 19:04:04 Yes (Active) [facility] Levothyroxine Sodium 75 MCG Oral Tablet 2014-01-03 19:04:04 Yes (Active) [facility] Omeprazole 20 MG Oral Capsule Delayed Release 2014-01-03 19:04:0 4 Yes (Active) [facility] AmLODIPine Besylate 5 MG Oral Tablet 2014-01-03 19:04:04 Ye s (Active) [facility] Nubia Allergy 180 MG Oral Tablet 2014-01-03 19:04:04 Yes (Active) [facility] Fish Oil Concentrate 1000 MG Oral Capsule 2014-01-03 19:04:04 Yes (Active) [facility] Metoprolol Succinate ER 50 MG Oral Tablet Extended Release 2 4 Hour 2014-01-03 19:04:04 Yes (Active) Fer Rajput Gabapentin 100 MG Oral Capsule 2014-01-03 19:04:04 Yes (Active) Joshua Rajput Metoprolol Succinate ER 50 MG Oral Tablet Extended Release 2 4 Hour 2013-11-08 13:32:05 Yes (Active) Fer Rajput Atorvastatin Calcium 10 MG Oral Tablet 2013-11-08 05:00:00 Yes ; Start Date: 11/08/2013; End Date: (Active) Joshua Rajput Atorvastatin Calcium 10 MG Oral Tablet 2013-11-06 20:34:17 Yes (Active) Joshua Rajupt Cyanocobalamin 1000 MCG/ML Injection Solution 2013-08-16 15:31:3 [...] Yes ; Start Date: 07/12/2013 (Active) Joshua Armijokhadar pappas Fish Oil CAPS 2013-06-18 16:04:19 Yes (Acti ve) [facility] Armijoann Integra Plus CAPS 2013-06-18 16:04:19 Yes ( Active) [facility] Allergy TABS 2013-06-04 15:02:02 Yes (Activ e) Joshua Armijoann Losartan Potassium 25 MG Oral Tablet 2013-06-04 05:00:00 Ye s ; Start Date: 06/04/2013 (Active) Joshua Armijoa nn Losartan Potassium 25 MG Oral Tablet 2013-05-29 15:32:01 Ye s (Active) [facility] Armijoann Alprazolam Alprazolam Yes .25 As Needed [facility] Amlodipine Besylate Amlodipine Besylate Yes 5 Daily [facility] Aspirin (Aspir 81) 81 Mg TABLET. Aspirin (Aspir 81) 81 Mg TABLET. Yes 81 Bedtime [facility] Atorvastatin Calcium Atorvastatin Calcium Yes 20 Bedtime [facility] Calcitriol Calcitriol Yes .25 Daily [facility] Cinacalcet Hcl (Sensipar) 30 Mg TABLET Cinacalcet Hcl (Sensipar) 30 Mg TABLET Yes 60 Today At 9:00PM [facility] Famotidine Famotidine Yes 20 Daily [facility] Fexofenadine Hcl (Nubia Allergy) 180 Mg TABLET Fexof enadine Hcl (Nubia Allergy) 180 Mg TABLET Yes 160 As Needed as ne eded for Allergy [facility] Levothyroxine Sodium (Levothroid) 75 Mcg TABLET Levoth yroxine Sodium (Levothroid) 75 Mcg TABLET Yes 75 Daily [facility] Metoprolol Succinate Metoprolol Succinate Yes 50 Bedtime [facility] Mirtazapine Mirtazapine Yes 7.5 Bedtime [facility] Ondansetron Hcl (Zofran*) 4 Mg TABLET Ondansetron Hcl (Zofran*) 4 M g TABLET Yes 4 As Needed [facility] Pantoprazole Sodium (Protonix) 40 Mg TABLET. Pantopr azole Sodium (Protonix) 40 Mg TABLET. Yes 40 Daily [facility] Proliva Proliva Yes 160 Q6 Months [facility] Sevelamer Carbonate (Renvela) 0.8 Gm POWD.PACK Sevelam er Carbonate (Renvela) 0.8 Gm POWD.PACK Yes [facility] Terazosin Hcl Terazosin Hcl Yes 2 Bedtime [facility] Ubidecarenone (Coenzyme Q-10) 50 Mg CAPSULE Ubidecaren one (Coenzyme Q-10) 50 Mg CAPSULE Yes 100 Daily [facility] Clopidogrel Bisulfate (Clopidogrel) 75 Mg TABLET Clopi dogrel Bisulfate (Clopidogrel) 75 Mg TABLET 2020-01-30 00:00:00 No 75 Daily [facility] Amoxicillin/Potassium Clav (Augmentin 500-125 Tablet) 1 Each TABLET Amoxicillin/Potassium Clav (Augmentin 500-125 Tablet) 1 Each TABLET 2019-09-23 00:00:00 No 500 Daily [facility] Calcitriol Calcitriol 2018-11-12 00:00:00 No .25 Fouzia ly [facility] Paroxetine Hcl Paroxetine Hcl 2018-11-12 00:00:00 No 10 Daily [facility] Denosumab (Prolia) 60 Mg/1 Ml DISP.SYRIN Denosumab (Pr michelle) 60 Mg/1 Ml DISP.SYRIN 2018-05-22 00:00:00 No 60 As Needed [facility] Cyanocobalamin (Cyanocobalamin Injection) 1,000 Mcg/Ml SOLN Cyanocobalamin (Cyanocobalamin Injection) 1,000 Mcg/Ml SOLN 2018-03-28 00:00:00 No 1000 Monthly [facility] Docusate Sodium (Stool Softener) 100 Mg CAPSULE Docusa te Sodium (Stool Softener) 100 Mg CAPSULE 2018-03-28 00:00:00 No 2 Bedtime [facility] Fenofibrate (Tricor) 48 Mg TAB Fenofibrate (Tricor) 48 Mg TAB 2018-03-28 00:00:00 No 48 Bedtime [facility] Gabapentin Gabapentin 2018-03-28 00:00:00 No 100 Bed time [facility] Glimepiride (Amaryl) 1 Mg TABLET Glimepiride (Amaryl) 1 Mg TABLE T 2018-03-28 00:00:00 No 1 Daily [facility] Iron Fum & P/Fa/Vit B & C No.9 (Integra Plus Capsule) 1 Each CAPSULE Iron Fum & P/Fa/Vit B & C No.9 (Integra Plus Capsule) 1 Each CAPSULE 20 15-03-31 00:00:00 No 1 Bedtime [facility] Losartan Potassium Losartan Potassium 2018-03-28 00:00:00 No 25 Daily [facility] Omeprazole Omeprazole 2018-03-28 00:00:00 No 40 Fouzia ly [facility] Sennosides/Docusate Sodium (Stool Softener Tablet) 1 E ach TABLET Sennosides/Docusate Sodium (Stool Softener Tablet) 1 Each TABLET 2018-03-28 00:00:00 No [facility] Sparkle Villagran 2017-06-15 00:00:00 No 4 Twic e A Day as needed for Nausea [facility] [place]-3 Fatty Acids/Fish Oil (Fish Oil 1,000 Mg Capsul e) 1 Each CAPSULE [place]-3 Fatty Acids/Fish Oil (Fish Oil 1,000 Mg Capsule) 1 Each CAPSULE 2014-03-31 00:00:00 No 2000 Daily [facility] Aspirin (Adult Aspirin) 81 Mg TAB.CHEW Aspirin (Adult Aspirin) 8 1 Mg TAB.CHEW 2013-05-13 00:00:00 No Daily [facility] Atorvastatin Calcium (Lipitor) 10 Mg TABLET Atorvastat in Calcium (Lipitor) 10 Mg TABLET 2013-05-13 00:00:00 No Qhs [facility] Fenofibrate Nanocrystallized (Tricor) 48 Mg TABLET Fen ofibrate Nanocrystallized (Tricor) 48 Mg TABLET 2013-05-13 00:00:00 No Qh s [facility] Fish Oil/Fat No.8/Hrb Comb.137 ([place] 3-6-9 1,200 Mg S oftgel) 1,200 Mg CAPSULE Fish Oil/Fat No.8/Hrb Comb.137 ([place] 3-6-9 1,200 Mg Softgel) 1,200 Mg CAPSULE 2013-05-13 00:00:00 No Daily [facility] Glimepiride (Amaryl) 1 Mg TABLET Glimepiride (Amaryl) 1 Mg TABLE T 2013-05-13 00:00:00 No Daily [facility] Isradipine (Dynacirc Cr) 5 Mg TAB.ER.24 Isradipine (Dynacirc Cr) 5 Mg TAB.ER.24 2013-05-13 00:00:00 No Daily [facility] Levothyroxine Sodium (Synthroid) 75 Mcg TABLET Levothy roxine Sodium (Synthroid) 75 Mcg TABLET 2013-05-13 00:00:00 No Qhs [facility] Metoprolol Succinate (Toprol Xl) 50 Mg TAB.SR.24H Meto prolol Succinate (Toprol Xl) 50 Mg TAB.SR.24H 2013-05-13 00:00:00 No Fouzia marcos [facility] Omeprazole (Prilosec) 20 Mg CAPSULE. Omeprazole (Prilosec) 20 Mg CAPSULE. 2013-05-13 00:00:00 No Daily [facility] Vital Signs Vital Name Observation Time Observation Value Comments Source Body Temperature 2020-04-22 16:33:00 98.7 [degF] [facility] Weight 2020-04-22 11:47:00 113 [lb_av] [facility] BMI (Body Mass Index) 2020-04-22 11:47:00 19.4 kg/m2 [facility] Weight 2020-02-21 20:00:00 [facility] [place] Height 2020-02-21 20:00:00 [facility] Temperature Oral (F) 2020-02-21 20:00:00 97.2 F [facility] Heart Rate 2020-02-21 20:00:00 [facility] Diastolic (mm Hg) 2020-02-21 20:00:00 [facility] Systolic (mm Hg) 2020-02-21 20:00:00 [facility] Body Temperature 2020-01-31 11:35:00 97.8 [degF] [facility] BMI (Body Mass Index) 2020-01-28 19:48:00 19.4 kg/m2 [facility] Weight 2020-01-28 11:00:00 113 [lb_av] [facility] Body Temperature 2020-01-27 15:02:00 98.0 [degF] [facility] Weight 2020-01-27 11:15:00 113 [lb_av] [facility] BMI (Body Mass Index) 2020-01-27 11:15:00 19.4 kg/m2 [facility] Weight 2019-07-24 19:00:00 [facility] Height 2019-07-24 19:00:00 [facility] Temperature Oral (F) 2019-07-24 19:00:00 98.2 F [facility] Heart Rate 2019-07-24 19:00:00 [facility] [place] Diastolic (mm Hg) 2019-07-24 19:00:00 [facility] [place] Systolic (mm Hg) 2019-07-24 19:00:00 [facility] Weight 2018-04-04 16:00:00 [facility] Height 2018-04-04 16:00:00 [facility] Temperature Oral (F) 2018-04-04 16:00:00 97.9 F [facility] Heart Rate 2018-04-04 16:00:00 [facility] [place] Diastolic (mm Hg) 2018-04-04 16:00:00 [facility] Systolic (mm Hg) 2018-04-04 16:00:00 [facility] [place] Weight 2017-10-12 15:15:00 [facility] Height 2017-10-12 15:15:00 [facility] Temperature Oral (F) 2017-10-12 15:15:00 97.4 F [facility] Heart Rate 2017-10-12 15:15:00 [facility] Diastolic (mm Hg) 2017-10-12 15:15:00 [facility] [place] Systolic (mm Hg) 2017-10-12 15:15:00 [facility] [place] Weight 2017-09-22 16:30:00 [facility] [place] Height 2017-09-22 16:30:00 [facility] Temperature Oral (F) 2017-09-22 16:30:00 97.9 F [facility] Heart Rate 2017-09-22 16:30:00 [facility] Diastolic (mm Hg) 2017-09-22 16:30:00 [facility] Systolic (mm Hg) 2017-09-22 16:30:00 [facility] [place] Weight 2017-08-01 16:00:00 [facility] [place] Height 2017-08-01 16:00:00 [facility] Temperature Oral (F) 2017-08-01 16:00:00 98.6 F [facility] Heart Rate 2017-08-01 16:00:00 [facility] Diastolic (mm Hg) 2017-08-01 16:00:00 [facility] Systolic (mm Hg) 2017-08-01 16:00:00 [facility] Weight 2017-07-07 22:00:00 [facility] Height 2017-07-07 22:00:00 [facility] [place] Temperature Oral (F) 2017-07-07 22:00:00 100.9 F [facility] Heart Rate 2017-07-07 22:00:00 [facility] [place] Diastolic (mm Hg) 2017-07-07 22:00:00 [facility] Systolic (mm Hg) 2017-07-07 22:00:00 [facility] Weight 2017-04-05 16:30:00 [facility] [place] Height 2017-04-05 16:30:00 [facility] Temperature Oral (F) 2017-04-05 16:30:00 98.1 F [facility] Heart Rate 2017-04-05 16:30:00 [facility] Diastolic (mm Hg) 2017-04-05 16:30:00 [facility] Systolic (mm Hg) 2017-04-05 16:30:00 [facility] [place] Systolic (mm Hg) 2016-11-04 18:00:00 [facility] Diastolic (mm Hg) 2016-11-04 18:00:00 [facility] Systolic (mm Hg) 2016-11-04 17:30:00 [facility] Diastolic (mm Hg) 2016-11-04 17:30:00 [facility] [place] Systolic (mm Hg) 2016-11-04 17:00:00 [facility] [place] Diastolic (mm Hg) 2016-11-04 17:00:00 [facility] Respitory Rate 2016-11-04 16:45:00 [facility] [place] Respitory Rate 2016-11-04 16:30:00 [facility] [place] Respitory Rate 2016-11-04 16:15:00 [facility] [place] Heart Rate 2016-11-04 14:08:00 [facility] [place] Temperature Oral (F) 2016-10-28 15:29:00 97.5 F [facility] Heart Rate 2016-10-28 15:29:00 [facility] Height 2016-10-28 15:22:00 162.56 cm [facility] Weight 2016-10-28 15:22:00 [facility] BMI Calculated 2016-10-28 15:22:00 [facility] Weight 2016-09-10 16:30:00 [facility] [place] Height 2016-09-10 16:30:00 [facility] Temperature Oral (F) 2016-09-10 16:30:00 96.9 F [facility] Heart Rate 2016-09-10 16:30:00 [facility] [place] Diastolic (mm Hg) 2016-09-10 16:30:00 [facility] Systolic (mm Hg) 2016-09-10 16:30:00 [facility] [place] Weight 2016-03-11 15:45:00 [facility] [place] Height 2016-03-11 15:45:00 [facility] Temperature Oral (F) 2016-03-11 15:45:00 98.5 F [facility] Heart Rate 2016-03-11 15:45:00 [facility] [place] Diastolic (mm Hg) 2016-03-11 15:45:00 [facility] [place] Systolic (mm Hg) 2016-03-11 15:45:00 [facility] Systolic (mm Hg) 2015-11-24 17:30:00 [facility] [place] Diastolic (mm Hg) 2015-11-24 17:30:00 [facility] Systolic (mm Hg) 2015-11-24 17:15:00 [facility] Diastolic (mm Hg) 2015-11-24 17:15:00 [facility] [place] Systolic (mm Hg) 2015-11-24 17:00:00 [facility] Diastolic (mm Hg) 2015-11-24 17:00:00 [facility] Respitory Rate 2015-11-24 15:45:00 [facility] Respitory Rate 2015-11-24 15:30:00 [facility] Respitory Rate 2015-11-24 15:15:00 [facility] [place] Temperature Oral (F) 2015-11-17 21:53:00 97.9 F [facility] Heart Rate 2015-11-17 21:53:00 [facility] [place] BMI Calculated 2015-11-17 21:30:00 [facility] Weight 2015-11-17 21:30:00 [facility] [place] Height 2015-11-17 21:30:00 162.56 cm [facility] Systolic (mm Hg) 2015-03-24 20:15:00 [facility] [place] Diastolic (mm Hg) 2015-03-24 20:15:00 [facility] [place] Systolic (mm Hg) 2015-03-24 20:00:00 [facility] [place] Diastolic (mm Hg) 2015-03-24 20:00:00 [facility] Systolic (mm Hg) 2015-03-24 19:45:00 [facility] [place] Diastolic (mm Hg) 2015-03-24 19:45:00 [facility] [place] Respitory Rate 2015-03-24 19:00:00 [facility] [place] Respitory Rate 2015-03-24 18:45:00 [facility] Respitory Rate 2015-03-24 18:30:00 [facility] [place] Heart Rate 2015-03-17 20:07:00 [facility] Temperature Oral (F) 2015-03-17 20:07:00 98.4 F [facility] [place] Height 2015-03-17 19:18:00 162.56 cm [facility] BMI Calculated 2015-03-17 19:18:00 [facility] [place] Weight 2015-03-17 19:18:00 [facility] Weight 2014-12-12 15:00:00 [facility] Height 2014-12-12 15:00:00 [facility] [place] Temperature Oral (F) 2014-12-12 15:00:00 98.0 F [facility] Heart Rate 2014-12-12 15:00:00 [facility] [place] Diastolic (mm Hg) 2014-12-12 15:00:00 [facility] [place] Systolic (mm Hg) 2014-12-12 15:00:00 [facility] Weight 2014-06-13 15:15:00 [facility] [place] Height 2014-06-13 15:15:00 [facility] Temperature Oral (F) 2014-06-13 15:15:00 98.2 F [facility] Heart Rate 2014-06-13 15:15:00 [facility] Diastolic (mm Hg) 2014-06-13 15:15:00 [facility] Systolic (mm Hg) 2014-06-13 15:15:00 [facility] Weight 2013-12-12 15:30:00 [facility] [place] Height 2013-12-12 15:30:00 [facility] Temperature Oral (F) 2013-12-12 15:30:00 97.5 F [facility] Heart Rate 2013-12-12 15:30:00 [facility] Diastolic (mm Hg) 2013-12-12 15:30:00 [facility] Systolic (mm Hg) 2013-12-12 15:30:00 [facility] [place] Procedures Procedure Date / Time Performed Performing Clinician [facility] e Computed tomography of brain without radiopaque contrast 2020-03 00:00:00 [facility] Magnetic resonance angiography of head without contrast 00:00:00 [facility] Magnetic resonance angiography of neck without contrast 00:00:00 [facility] Computed tomography of brain without radiopaque contrast 2020-01 00:00:00 [facility] Magnetic resonance imaging of brain without contrast 2020-01-28 00:00:00 [facility] Computed tomography of brain without radiopaque contrast 2019-12 00:00:00 [facility] Computed tomography of brain without radiopaque contrast 202 00:00:00 LOY SO [facility] Computed tomography of brain without radiopaque contrast 202 00:00:00 LOY SO [facility] Magnetic resonance imaging of brain without contrast 2019-08 00:00:00 ERICKA GREENE [facility] Abdominal hysterectomy [facility] Appendectomy [facility] [place] Cholecystectomy [facility] [place] Colonoscopy [facility] [place] Excision of ganglion cyst Irene al [place] Plan of Care Planned Activity Planned Date Details Comments Source Future Scheduled Test 2014-01-03 19:04:04 Plan of Care [code = 1877 6-5] [facility] Future Scheduled Test 2013-11-08 13:32:05 Plan of Care [code = 1877 6-5] [facility] Future Scheduled Test 2013-11-06 20:34:17 Plan of Care [code = 1877 6-5] [facility] Future Scheduled Test 2013-10-25 15:32:03 Plan of Care [code = 1877 6-5] [facility] Scheduled Test 2013-10-09 20:37:28 Plan of Care [code = 1877 6-5] [facility] Scheduled Test 2013-08-16 15:31:37 Plan of Care [code = 1877 6-5] [facility] Scheduled Test 2013-08-09 20:33:17 Plan of Care [code = 1877 6-5] [facility] Scheduled Test 2013-07-12 19:01:33 Plan of Care [code = 1877 6-5] [facility] Scheduled Test 2013-06-18 16:04:19 Plan of Care [code = 1877 6-5] [facility] Encounters Start Date/Time End Date/Time Encounter Type Admission Type Attendi [facility] Care Department Encounter ID Source 2020-06-16 08:27:00 2020-06-16 08:27:00 Outpatient Martin Souza MD [place] [id number] Castillo Souza MD 2020-05-21 13:30:00 2020-05-21 13:30:00 Outpatient Martin Souza MD [place] [id number] Castillo Souza MD 2020-04-22 11:54:00 2020-04-22 16:41:00 Departed Emergency Room 1 ImtiazClau rodriguez [facility] [id number] [facility] 2020-02-21 15:00:00 2020-02-21 15:00:00 Outpatient Martin Souza MD [place] [id number] Castillo Souza MD 2020-01-28 12:38:00 2020-01-31 12:27:00 Discharged Inpatient (obs) 1 HATHAWAYCHRISTEL BROWN [facility] [id number] [facility] 2020-01-27 10:59:00 2020-01-27 15:07:00 Departed Emergency Room 1 VADIM MUNOZ [facility] [id number] [facility] 2020-01-07 10:56:00 2020-01-07 10:56:00 Outpatient Martin Souza MD [place] [id number] Castillo Souza MD 2019-10-05 09:03:00 2019-10-05 13:37:00 Departed Emergency Room 1 ERICKA GREENE [facility] [id number] [facility] [place] 2019-09-24 09:14:00 2019-09-24 11:30:00 Departed Emergency Room [facility] [id number] [facility] [facility] 2019-09-22 13:23:00 2019-09-23 13:53:00 Discharged Inpatient (obs) 1 RODNEY ROSADO [facility] [id number] [facility] 2019-09-10 15:41:00 2019-09-10 15:41:00 Outpatient Martin Souza MD PA [id number] CHELSEA Souza MD 2019-07-24 13:00:00 2019-07-24 13:00:00 Outpatient Martin Souza MD PA [id number] Castillo Souza MD 2019-07-19 15:10:00 2019-07-19 23:59:00 Outpatient Melonie Rosado [facility] [id number] 2019-07-19 15:50:00 2019-07-19 15:50:00 Outpatient MD OMID De Jesus MD PA [id number] CHELSEA Souza MD 2019-07-19 11:02:00 2019-07-19 11:02:00 Outpatient MD OMID De Jesus MD PA [id number] CHELSEA Souza MD 2019-07-17 13:57:00 2019-07-17 13:57:00 Outpatient MD OMID De Jesus MD PA [id number] Castillo Souza MD 2019-07-13 15:04:00 2019-07-13 15:04:00 Outpatient MD OMID De Jesus MD PA [id number] Castillo Souza MD 2019-06-27 10:41:00 2019-06-27 10:41:00 Outpatient MD OMID De Jesus MD PA [id number] CHELSEA Souza MD 2019-06-11 14:36:00 2019-06-11 14:36:00 Outpatient MD OMID De Jesus MD PA [id number] CHELSEA Souza MD 2018-11-12 17:35:00 2018-11-16 10:59:00 Discharged Inpatient 1 RODNEY ROSADO [facility] [id number] [facility] 2018-11-13 15:57:00 2018-11-13 15:57:00 Outpatient Martin Souza MD PA [id number] Castillo Souza MD 2018-10-25 10:54:00 2018-10-25 10:54:00 Outpatient Martin Souza MD PA [id number] Castillo Souza MD 2018-08-28 09:56:00 2018-09-01 10:31:00 Discharged Inpatient 1 RODNEY ROSADO [facility] [id number] [facility] 2018-07-13 11:30:00 2018-08-11 23:59:00 Outpatient Rodney Rosado [id number] 2018-07-17 15:30:00 2018-07-17 23:59:00 [id number] 2018-06-12 13:00:00 2018-07-11 23:59:00 Outpatient Rodney Rosado [id number] 2018-05-11 14:16:00 2018 23:59:00 Outpatient Rosado Rodney Tracey [id number] 2018 12:41:00 2018 12:41:00 Outpatient Martin ANNE [id number] Castillo Souza MD 2018-05-19 12:17:00 2018-05-22 13:43:00 Discharged Inpatient (obs) 1 HATHAWAY, [facility] [id number] [facility] 2018-05-16 09:48:00 2018-05-18 11:14:00 Discharged Inpatient 1 HATHAWAYCHRISTEL BROWN [facility] [id number] [facility] 2018-05-02 13:53:00 2018-05-02 23:59:00 Outpatient Melonie Rosado [facility] MHOIB [id number] 2018-04-12 09:19:00 2018-04-12 09:19:00 Outpatient Martin Souza MD PA [id number] Castillo Souza MD 2018-04-04 11:00:00 2018-04-04 11:00:00 Outpatient Martin Souza MD PA [id number] Castillo Souza MD 2018-03-28 20:30:00 2018-03-31 13:56:00 Discharged Inpatient (obs) [facility] [id number] [facility] 2018-02-28 09:58:00 2018-02-28 09:58:00 Outpatient Martin Souza MD PA [id number] Castillo Souza MD 2017-10-12 09:15:00 2017-10-12 09:15:00 Outpatient Martin Souza MD PA [id number] Castillo Souza MD 2017-09-22 11:33:00 2017-09-22 11:33:00 Outpatient Martin ANNE [id number] CHELSEA Souza MD 2017-09-22 10:30:00 2017-09-22 10:30:00 Outpatient Martin ANNE [id number] Castillo Souza MD 2017-08-30 13:51:00 2017-08-30 13:51:00 Outpatient Martin ANNE [id number] Castillo Souza MD 2017-08-01 10:00:00 2017-08-01 10:00:00 Outpatient Martin ANNE [id number] Castillo Souza MD 2017-07-22 12:45:00 2017-07-22 15:00:00 Departed Emergency Room [facility] [id number] [facility] 2017-07-16 15:24:00 2017-07-16 23:59:00 Outpatient Melonie Rosado [facility] [id number] 2017-07-07 17:32:00 2017-07-07 17:32:00 Outpatient Martin Souza MD PA [id number] Castillo Souza MD 2017-07-07 16:00:00 2017-07-07 16:00:00 Outpatient Martin Souza MD PA [id number] Castillo Souza MD 2017-07-03 12:40:00 2017-07-03 16:25:00 Departed Emergency Room ER PATRICK DAMON [facility] [id number] [facility] 2017-06-22 15:33:00 2017-06-22 15:33:00 Outpatient Martin Souza MD PA [id number] Castillo Souza MD 2017-06-13 14:53:00 2017-06-15 12:32:00 Discharged Inpatient (obs) ER RODNEY ROSADO [facility] [id number] [facility] 2017-04-05 11:30:00 2017-04-05 11:30:00 Outpatient Martin Souza MD PA [id number] Castillo Souza MD 2017-03-07 11:57:00 2017-03-07 11:57:00 Outpatient Martin Souza MD PA [id number] Castillo Souza MD 2016-12-20 10:55:00 2016-12-20 10:55:00 Outpatient Martin Souza MD PA [id number] Castillo Souza MD 2016-11-04 05:56:00 2016-11-04 12:15:00 Outpatient Isabelle Hand [facility] [id number] 2016-09-10 11:39:00 2016-09-10 11:39:00 Outpatient MD Martin De Jesus MD [id number] Castillo Souza MD 2016-09-10 11:26:00 2016-09-10 11:26:00 Outpatient MD Martin De Jesus MD [id number] Castillo Souza MD 2016-09-10 10:30:00 2016-09-10 10:30:00 Outpatient MD Martin De Jesus MD [id number] CHELSEA Souza MD 2016-05-06 14:34:00 2016-05-06 14:34:00 Outpatient MD Martin De Jesus MD [id number] CHELSEA Souza MD 2016-03-11 10:45:00 2016-03-11 10:45:00 Outpatient MD Martin De Jesus MD [id number] CHELSEA Souza MD 2016-03-03 15:18:00 2016-03-03 23:59:00 Outpatient Melonie Rosado [facility] [id number] 2016-02-25 12:39:00 2016-02-25 12:39:00 Outpatient MD Martin De Jesus MD [id number] Castillo Souza MD 2016-02-09 12:54:00 2016-02-09 12:54:00 Outpatient MD Martin De Jesus MD [id number] Castillo Souza MD 2016-02-04 14:38:00 2016-02-04 14:38:00 Outpatient MD Martin De Jesus MD [id number] Castillo Souza MD 2015-11-24 05:16:00 2015-11-24 12:30:00 Outpatient YazanIsabelle MHSE [facility]SE [id number] 2015-08-19 14:11:00 2015-08-19 23:59:00 [facility] [id number] 2015-07-10 19:02:00 2015-07-10 19:02:00 Outpatient MD Martin De Jesus MD [id number] Castillo Souza MD 2015-03-24 09:18:00 2015-03-24 15:40:00 Outpatient Yazan Isabelle abiodun Arellano [facility] [id number] 2014-12-31 10:43:00 2014-12-31 10:43:00 Outpatient MD Martin De Jesus MD [id number] Castillo Souza MD 2014-12-12 10:00:00 2014-12-12 10:00:00 Outpatient MD Martin De Jesus MD [id number] Castillo Souza MD 2014-06-13 09:15:00 2014-06-13 09:15:00 Outpatient MD Martin De Jesus MD [id number] CHELSEA Souza MD 2014-01-03 14:04:05 2014-01-03 14:04:04 Outpatient MHIE MHIE [id number] 2013-12-12 10:30:00 2013-12-12 10:30:00 Outpatient MD Martin De Jesus MD [id number] Castillo Souza MD 2013-11-08 08:32:06 2013-11-08 08:32:05 Outpatient MHIE MHIE [id number] 2013-11-06 15:34:17 2013-11-06 15:34:17 Outpatient JUNE WATKINS [id number] 2013-10-25 09:32:03 2013-10-25 09:32:03 Outpatient JUNE WATKINS [id number] 2013-10-09 14:37:29 2013-10-09 14:37:28 Outpatient JUNE WATKINS [id number] 2013-08-16 09:31:38 2013-08-16 09:31:37 Outpatient JUNE WATKINS [id number] 2013-08-09 14:33:17 2013-08-09 14:33:17 Outpatient JUNE WATKINS [id number] 2013-07-12 13:01:33 2013-07-12 13:01:33 Outpatient JUNE WATKINS [id number] 2013-06-18 11:04:20 2013-06-18 11:04:19 Outpatient JUNE WATKINS [id number] 2013-06-04 10:02:03 2013-06-04 10:02:02 Outpatient JUNE WATKINS [id number] 2013-05-29 10:32:01 2013-05-29 10:32:01 Outpatient JUNE WATKINS [id number] Results Test Description Test Time Test Comments Results Result Comments Source HGB HCT 2020-07-20 07:11:00 Test Item HEMOGLOBIN (test code = HGB) 14.4 gram/dL 11.5-15.5 N HEMATOCRIT (test code = HCT) 45.3 % 36.0-46.0 N [id number] 05:27:00* Test Item Value Reference Range Interpretation Comments GLUBED (test code = GLUBED) 116 mg/dL 74-106 H Performed by certified rope making machine operator at [facility] HGB [id number] 02:45:00* Test Item Value Reference Range Interpretation Comments HEMOGLOBIN (test code = HGB) 14.1 gram/dL 11.5-15.5 RESULT VERIFIED BY REPEAT ANALYSIS HEMATOCRIT (test code = HCT) 44.7 % 36.0-46.0 N COMPREHENSIVE METABOLIC [id number] 19:53:00* Test Item Value Reference Range Interpretation Comments SODIUM (test code = NA) 143 mmol/L 136-145 N POTASSIUM (test code = K) 4.0 mmol/L 3.5-5.1 N CHLORIDE (test code = CL) 110.0 mmol/L 98-107 H CARBON DIOXIDE (test code = CO2) 24.0 mmol/L 21-32 N ANION GAP (test code = GAP) 13.0 10-20 N GLUCOSE (test code = GLU) 125 mg/dL 74-106 H BLOOD UREA NITROGEN (test code = BUN) 48 mg/dL 7-18 H GLOMERULAR FILTRATION RATE (test code = GFR) 8 mL/min >=60 Estimated GFR by using Modified MDRD formula.Chronic kidney disease is defined as either kidney damageor GFR <60 mL/min/1.73 m2 for >3 months. CREATININE (test code = CREAT) 5.40 mg/dL 0.55-1.02 H Note change in reference range due to change in reagent. BUN/CREATININE RATIO (test code = BUN/CREA) 8.9 10-20 L TOTAL PROTEIN (test code = PROT) 6.5 gram/dL 6.4-8.2 N ALBUMIN (test code = ALB) 3.0 g/dL 3.4-5.0 L GLOBULIN (test code = GLOB) 3.5 gram/dL 2.7-4.2 N ALBUMIN/GLOBULIN RATIO (test code = A/G) 0.9 0.75-1.50 N CALCIUM (test code = CA) 10.2 mg/dL 8.5-10.1 H BILIRUBIN TOTAL (test code = BILT) 0.40 mg/dL 0.0-1.0 N SGOT/AST (test code = AST) 29 IUnit/L 15-37 N SGPT/ALT (test code = ALT) 20 IUnit/L 12-78 N ALKALINE PHOSPHATASE TOTAL (test code = ALKP) 84 IUnit/L 45-117 N Note change in reference range due to change in reagent. COMPREHENSIVE METABOLIC [id number] 19:47:00* Test Item Value Reference Range Interpretation Comments SODIUM (test code = NA) 143 mmol/L 136-145 N POTASSIUM (test code = K) 4.0 mmol/L 3.5-5.1 N CHLORIDE (test code = CL) 110.0 mmol/L 98-107 H CARBON DIOXIDE (test code = CO2) mmol/L 21-32 ANION GAP (test code = GAP) 10-20 GLUCOSE (test code = GLU) mg/dL 74-106 BLOOD UREA NITROGEN (test code = BUN) mg/dL 7-18 GLOMERULAR FILTRATION RATE (test code = GFR) mL/min >=60 CREATININE (test code = CREAT) mg/dL 0.55-1.02 BUN/CREATININE RATIO (test code = BUN/CREA) 10-20 TOTAL PROTEIN (test code = PROT) gram/dL 6.4-8.2 ALBUMIN (test code = ALB) g/dL 3.4-5.0 GLOBULIN (test code = GLOB) gram/dL 2.7-4.2 ALBUMIN/GLOBULIN RATIO (test code = A/G) 0.75-1.50 CALCIUM (test code = CA) mg/dL 8.5-10.1 BILIRUBIN TOTAL (test code = BILT) mg/dL 0.0-1.0 SGOT/AST (test code = AST) IUnit/L 15-37 SGPT/ALT (test code = ALT) IUnit/L 12-78 ALKALINE PHOSPHATASE TOTAL (test code = ALKP) IUnit/L 45-117 THROMBOPLASTIN TIME [id number] 19:39:00* Test Item Value Reference Range Interpretation Comments THROMBOPLASTIN TIME PARTIAL (test code = PTT) 26.6 seconds 23.0-37. 0 N IS PATIENT ON ANTICOAGULANTS? YLIST ANTICOAGULANTS PLAVIXCBC W/AUTO DIFF 2020-07-19 19:37:00* Test Item Value Reference Range Interpretation Comments WHITE BLOOD CELL (test code = WBC) 7.2 K/mm3 4.5-12.5 N RED BLOOD CELL (test code = RBC) 5.32 mill/mm3 3.7-5.2 H HEMOGLOBIN (test code = HGB) 16.2 gram/dL 11.5-15.5 H HEMATOCRIT (test code = HCT) 49.9 % 36.0-46.0 H MEAN CELL VOLUME (test code = MCV) 93.8 fL 80-98 N MEAN CELL HGB (test code = MCH) 30.5 picogram 27.0-33.0 N MEAN CELL HGB CONCETRATION (test code = MCHC) 32.5 gram/dL 33.0-36. 0 L RED CELL DISTRIBUTION WIDTH (test code = RDW) 13.2 % 11.6-16. 2 N RED CELL DISTRIBUTION WIDTH SD (test code = RDW-SD) 44.8 fL 37 .0-51.0 N PLATELET COUNT (test code = PLT) 92 K/mm3 150-450 L RESULT VERIFIED BY REPEAT ANALYSIS MEAN PLATELET VOLUME (test code = MPV) 11.7 fL 6.7-11.0 H NEUTROPHIL % (test code = NT%) 68.2 % 39.0-69.0 N IMMATURE GRANULOCYTE % (test code = IG%) 0.4 % 0.0-5.0 N LYMPHOCYTE % (test code = LY%) 17.6 % 25.0-55.0 L MONOCYTE % (test code = MO%) 8.9 % 0.0-10.0 N EOSINOPHIL % (test code = EO%) 4.1 % 0.0-5.0 N BASOPHIL % (test code = BA%) 0.8 % 0.0-1.0 N NUCLEATED RBC % (test code = NRBC%) 0.0 % 0-0 N NEUTROPHIL # (test code = NT#) 4.88 K/mm3 1.8-7.7 N IMMATURE GRANULOCYTE # (test code = IG#) 0.03 x10 3/uL 0-0.03 N LYMPHOCYTE # (test code = LY#) 1.26 K/mm3 1.0-5.0 N MONOCYTE # (test code = MO#) 0.64 K/mm3 0-0.8 N EOSINOPHIL # (test code = EO#) 0.29 K/mm3 0.0-0.5 N BASOPHIL # (test code = BA#) 0.06 K/mm3 0.0-0.2 N NUCLEATED RBC # (test code = NRBC#) 0.00 K/mm3 0.0-0.1 N CBC W/AUTO [id number] 15:22:00* Test Item Value Reference Range Interpretation Comments WHITE BLOOD CELL (test code = WBC) 6.9 K/mm3 4.5-12.5 N RED BLOOD CELL (test code = RBC) 5.40 mill/mm3 3.7-5.2 H HEMOGLOBIN (test code = HGB) 16.4 gram/dL 11.5-15.5 H HEMATOCRIT (test code = HCT) 49.5 % 36.0-46.0 H MEAN CELL VOLUME (test code = MCV) 91.7 fL 80-98 N MEAN CELL HGB (test code = MCH) 30.4 picogram 27.0-33.0 N MEAN CELL HGB CONCETRATION (test code = MCHC) 33.1 gram/dL 33.0-36. 0 N RED CELL DISTRIBUTION WIDTH (test code = RDW) 13.9 % 11.6-16. 2 N RED CELL DISTRIBUTION WIDTH SD (test code = RDW-SD) 46.4 fL 37 .0-51.0 N PLATELET COUNT (test code = PLT) 100 K/mm3 150-450 L MEAN PLATELET VOLUME (test code = MPV) fL 6.7-11.0 Unable to determine due to platelet abnormality , please seethe platelet morphology. NEUTROPHIL % (test code = NT%) 67.1 % 39.0-69.0 N IMMATURE GRANULOCYTE % (test code = IG%) 0.6 % 0.0-5.0 N LYMPHOCYTE % (test code = LY%) 19.1 % 25.0-55.0 L MONOCYTE % (test code = MO%) 9.3 % 0.0-10.0 N EOSINOPHIL % (test code = EO%) 3.3 % 0.0-5.0 N BASOPHIL % (test code = BA%) 0.6 % 0.0-1.0 N NUCLEATED RBC % (test code = NRBC%) 0.0 % 0-0 N NEUTROPHIL # (test code = NT#) 4.64 K/mm3 1.8-7.7 N IMMATURE GRANULOCYTE # (test code = IG#) 0.04 x10 3/uL 0-0.03 H LYMPHOCYTE # (test code = LY#) 1.32 K/mm3 1.0-5.0 N MONOCYTE # (test code = MO#) 0.64 K/mm3 0-0.8 N EOSINOPHIL # (test code = EO#) 0.23 K/mm3 0.0-0.5 N BASOPHIL # (test code = BA#) 0.04 K/mm3 0.0-0.2 N NUCLEATED RBC # (test code = NRBC#) 0.00 K/mm3 0.0-0.1 N MANUAL DIFF REQUIRED (test code = MDIFF) NO, ONLY SCAN NEEDED DIFFERENTIAL [id number] 15:22:00* Test Item Value Reference Range Interpretation Comments STAIN ACCEPTABILITY (test code = STN ACCEPTABLE) STAIN ACCEPTABLE MORPHOLOGY COMMENT (test code = MOC) NORMAL PLATELET ESTIMATE (test code = PLTEST) ADEQUATE PLATELET MORPHOLOGY (test code = PLTMORPH) CLUMPING PRESENT CBC W/AUTO [id number] 14:51:00* Test Item Value Reference Range Interpretation Comments WHITE BLOOD CELL (test code = WBC) 6.9 K/mm3 4.5-12.5 N RED BLOOD CELL (test code = RBC) 5.40 mill/mm3 3.7-5.2 H HEMOGLOBIN (test code = HGB) 16.4 gram/dL 11.5-15.5 H HEMATOCRIT (test code = HCT) 49.5 % 36.0-46.0 H MEAN CELL VOLUME (test code = MCV) 91.7 fL 80-98 N MEAN CELL HGB (test code = MCH) 30.4 picogram 27.0-33.0 N MEAN CELL HGB CONCETRATION (test code = MCHC) 33.1 gram/dL 33.0-36. 0 N RED CELL DISTRIBUTION WIDTH (test code = RDW) 13.9 % 11.6-16. 2 N RED CELL DISTRIBUTION WIDTH SD (test code = RDW-SD) 46.4 fL 37 .0-51.0 N PLATELET COUNT (test code = PLT) 100 K/mm3 150-450 L MEAN PLATELET VOLUME (test code = MPV) fL 6.7-11.0 Unable to determine due to platelet abnormality , please seethe platelet morphology. NEUTROPHIL % (test code = NT%) 67.1 % 39.0-69.0 N IMMATURE GRANULOCYTE % (test code = IG%) 0.6 % 0.0-5.0 N LYMPHOCYTE % (test code = LY%) 19.1 % 25.0-55.0 L MONOCYTE % (test code = MO%) 9.3 % 0.0-10.0 N EOSINOPHIL % (test code = EO%) 3.3 % 0.0-5.0 N BASOPHIL % (test code = BA%) 0.6 % 0.0-1.0 N NUCLEATED RBC % (test code = NRBC%) 0.0 % 0-0 N NEUTROPHIL # (test code = NT#) 4.64 K/mm3 1.8-7.7 N IMMATURE GRANULOCYTE # (test code = IG#) 0.04 x10 3/uL 0-0.03 H LYMPHOCYTE # (test code = LY#) 1.32 K/mm3 1.0-5.0 N MONOCYTE # (test code = MO#) 0.64 K/mm3 0-0.8 N EOSINOPHIL # (test code = EO#) 0.23 K/mm3 0.0-0.5 N BASOPHIL # (test code = BA#) 0.04 K/mm3 0.0-0.2 N NUCLEATED RBC # (test code = NRBC#) 0.00 K/mm3 0.0-0.1 N MANUAL DIFF REQUIRED (test code = MDIFF) NO, ONLY SCAN NEEDED DIFFERENTIAL [id number] 14:51:00* Test Item Value Reference Range Interpretation Comments STAIN ACCEPTABILITY (test code = STN ACCEPTABLE) CABOT RINGS (test code = CAB) MORPHOLOGY COMMENT (test code = MOC) PLATELET ESTIMATE (test code = PLTEST) PLATELET MORPHOLOGY (test code = PLTMORPH) CBC W/AUTO [id number] 14:51:00* Test Item Value Reference Range Interpretation Comments WHITE BLOOD CELL (test code = WBC) 6.9 K/mm3 4.5-12.5 N RED BLOOD CELL (test code = RBC) 5.40 mill/mm3 3.7-5.2 H HEMOGLOBIN (test code = HGB) 16.4 gram/dL 11.5-15.5 H HEMATOCRIT (test code = HCT) 49.5 % 36.0-46.0 H MEAN CELL VOLUME (test code = MCV) 91.7 fL 80-98 N MEAN CELL HGB (test code = MCH) 30.4 picogram 27.0-33.0 N MEAN CELL HGB CONCETRATION (test code = MCHC) 33.1 gram/dL 33.0-36. 0 N RED CELL DISTRIBUTION WIDTH (test code = RDW) 13.9 % 11.6-16. 2 N RED CELL DISTRIBUTION WIDTH SD (test code = RDW-SD) 46.4 fL 37 .0-51.0 N PLATELET COUNT (test code = PLT) 100 K/mm3 150-450 L MEAN PLATELET VOLUME (test code = MPV) fL 6.7-11.0 Unable to determine due to platelet abnormality , please seethe platelet morphology. NEUTROPHIL % (test code = NT%) 67.1 % 39.0-69.0 N IMMATURE GRANULOCYTE % (test code = IG%) 0.6 % 0.0-5.0 N LYMPHOCYTE % (test code = LY%) 19.1 % 25.0-55.0 L MONOCYTE % (test code = MO%) 9.3 % 0.0-10.0 N EOSINOPHIL % (test code = EO%) 3.3 % 0.0-5.0 N BASOPHIL % (test code = BA%) 0.6 % 0.0-1.0 N NUCLEATED RBC % (test code = NRBC%) 0.0 % 0-0 N NEUTROPHIL # (test code = NT#) 4.64 K/mm3 1.8-7.7 N IMMATURE GRANULOCYTE # (test code = IG#) 0.04 x10 3/uL 0-0.03 H LYMPHOCYTE # (test code = LY#) 1.32 K/mm3 1.0-5.0 N MONOCYTE # (test code = MO#) 0.64 K/mm3 0-0.8 N EOSINOPHIL # (test code = EO#) 0.23 K/mm3 0.0-0.5 N BASOPHIL # (test code = BA#) 0.04 K/mm3 0.0-0.2 N NUCLEATED RBC # (test code = NRBC#) 0.00 K/mm3 0.0-0.1 N MANUAL DIFF REQUIRED (test code = MDIFF) NO, ONLY SCAN NEEDED DIFFERENTIAL [id number] 14:51:00* Test Item Value Reference Range Interpretation Comments STAIN ACCEPTABILITY (test code = STN ACCEPTABLE) CABOT RINGS (test code = CAB) MORPHOLOGY COMMENT (test code = MOC) PLATELET ESTIMATE (test code = PLTEST) PLATELET MORPHOLOGY (test code = PLTMORPH) CBC W/AUTO [id number] 14:51:00* Test Item Value Reference Range Interpretation Comments WHITE BLOOD CELL (test code = WBC) 6.9 K/mm3 4.5-12.5 N RED BLOOD CELL (test code = RBC) 5.40 mill/mm3 3.7-5.2 H HEMOGLOBIN (test code = HGB) 16.4 gram/dL 11.5-15.5 H HEMATOCRIT (test code = HCT) 49.5 % 36.0-46.0 H MEAN CELL VOLUME (test code = MCV) 91.7 fL 80-98 N MEAN CELL HGB (test code = MCH) 30.4 picogram 27.0-33.0 N MEAN CELL HGB CONCETRATION (test code = MCHC) 33.1 gram/dL 33.0-36. 0 N RED CELL DISTRIBUTION WIDTH (test code = RDW) 13.9 % 11.6-16. 2 N RED CELL DISTRIBUTION WIDTH SD (test code = RDW-SD) 46.4 fL 37 .0-51.0 N PLATELET COUNT (test code = PLT) 100 K/mm3 150-450 L MEAN PLATELET VOLUME (test code = MPV) fL 6.7-11.0 Unable to determine due to platelet abnormality , please seethe platelet morphology. NEUTROPHIL % (test code = NT%) 67.1 % 39.0-69.0 N IMMATURE GRANULOCYTE % (test code = IG%) 0.6 % 0.0-5.0 N LYMPHOCYTE % (test code = LY%) 19.1 % 25.0-55.0 L MONOCYTE % (test code = MO%) 9.3 % 0.0-10.0 N EOSINOPHIL % (test code = EO%) 3.3 % 0.0-5.0 N BASOPHIL % (test code = BA%) 0.6 % 0.0-1.0 N NUCLEATED RBC % (test code = NRBC%) 0.0 % 0-0 N NEUTROPHIL # (test code = NT#) 4.64 K/mm3 1.8-7.7 N IMMATURE GRANULOCYTE # (test code = IG#) 0.04 x10 3/uL 0-0.03 H LYMPHOCYTE # (test code = LY#) 1.32 K/mm3 1.0-5.0 N MONOCYTE # (test code = MO#) 0.64 K/mm3 0-0.8 N EOSINOPHIL # (test code = EO#) 0.23 K/mm3 0.0-0.5 N BASOPHIL # (test code = BA#) 0.04 K/mm3 0.0-0.2 N NUCLEATED RBC # (test code = NRBC#) 0.00 K/mm3 0.0-0.1 N MANUAL DIFF REQUIRED (test code = MDIFF) NO, ONLY SCAN NEEDED DIFFERENTIAL [id number] 14:51:00* Test Item Value Reference Range Interpretation Comments STAIN ACCEPTABILITY (test code = STN ACCEPTABLE) MORPHOLOGY COMMENT (test code = MOC) PLATELET ESTIMATE (test code = PLTEST) PLATELET MORPHOLOGY (test code = PLTMORPH) CBC W/AUTO [id number] 14:50:00* Test Item Value Reference Range Interpretation Comments WHITE BLOOD CELL (test code = WBC) 6.9 K/mm3 4.5-12.5 N RED BLOOD CELL (test code = RBC) 5.40 mill/mm3 3.7-5.2 H HEMOGLOBIN (test code = HGB) 16.4 gram/dL 11.5-15.5 H HEMATOCRIT (test code = HCT) 49.5 % 36.0-46.0 H MEAN CELL VOLUME (test code = MCV) 91.7 fL 80-98 N MEAN CELL HGB (test code = MCH) 30.4 picogram 27.0-33.0 N MEAN CELL HGB CONCETRATION (test code = MCHC) 33.1 gram/dL 33.0-36. 0 N RED CELL DISTRIBUTION WIDTH (test code = RDW) 13.9 % 11.6-16. 2 N RED CELL DISTRIBUTION WIDTH SD (test code = RDW-SD) 46.4 fL 37 .0-51.0 N PLATELET COUNT (test code = PLT) 100 K/mm3 150-450 L MEAN PLATELET VOLUME (test code = MPV) fL 6.7-11.0 Unable to determine due to platelet abnormality , please seethe platelet morphology. NEUTROPHIL % (test code = NT%) 67.1 % 39.0-69.0 N IMMATURE GRANULOCYTE % (test code = IG%) 0.6 % 0.0-5.0 N LYMPHOCYTE % (test code = LY%) 19.1 % 25.0-55.0 L MONOCYTE % (test code = MO%) 9.3 % 0.0-10.0 N EOSINOPHIL % (test code = EO%) 3.3 % 0.0-5.0 N BASOPHIL % (test code = BA%) 0.6 % 0.0-1.0 N NUCLEATED RBC % (test code = NRBC%) 0.0 % 0-0 N NEUTROPHIL # (test code = NT#) 4.64 K/mm3 1.8-7.7 N IMMATURE GRANULOCYTE # (test code = IG#) 0.04 x10 3/uL 0-0.03 H LYMPHOCYTE # (test code = LY#) 1.32 K/mm3 1.0-5.0 N MONOCYTE # (test code = MO#) 0.64 K/mm3 0-0.8 N EOSINOPHIL # (test code = EO#) 0.23 K/mm3 0.0-0.5 N BASOPHIL # (test code = BA#) 0.04 K/mm3 0.0-0.2 N NUCLEATED RBC # (test code = NRBC#) 0.00 K/mm3 0.0-0.1 N MANUAL DIFF REQUIRED (test code = MDIFF) NO, ONLY SCAN NEEDED DIFFERENTIAL [id number] 14:50:00* Test Item Value Reference Range Interpretation Comments STAIN ACCEPTABILITY (test code = STN ACCEPTABLE) CABOT RINGS (test code = CAB) MORPHOLOGY COMMENT (test code = MOC) PLATELET ESTIMATE (test code = PLTEST) PLATELET MORPHOLOGY (test code = PLTMORPH) PROTHROMBIN [id number] 13:36:00* Test Item Value Reference Range Interpretation Comments PROTHROMBIN TIME PATIENT (test code = PTP) 10.6 seconds 9.0-14.0 N INTERNATIONAL NORMAL RATIO (test code = INR) 0.9 0.8-1.2 N The therapeutic range for oral [...] heart valves (2.5-3.5) IS PATIENT ON ANTICOAGULANTS? NBASIC METABOLIC [id number] 13:24:00* Test Item Value Reference Range Interpretation Comments SODIUM (test code = NA) 139 mmol/L 136-145 N POTASSIUM (test code = K) 4.8 mmol/L 3.5-5.1 N CHLORIDE (test code = CL) 105.0 mmol/L 98-107 N CARBON DIOXIDE (test code = CO2) 27.0 mmol/L 21-32 N ANION GAP (test code = GAP) 11.8 10-20 N GLUCOSE (test code = GLU) 116 mg/dL 74-106 H BLOOD UREA NITROGEN (test code = BUN) 48 mg/dL 7-18 H GLOMERULAR FILTRATION RATE (test code = GFR) 8 mL/min >=60 Estimated GFR by using Modified MDRD formula.Chronic kidney disease is defined as either kidney damageor GFR <60 mL/min/1.73 m2 for >3 months. CREATININE (test code = CREAT) 5.20 mg/dL 0.55-1.02 H Note change in reference range due to change in reagent. BUN/CREATININE RATIO (test code = BUN/CREA) 9.2 10-20 L CALCIUM (test code = CA) 11.0 mg/dL 8.5-10.1 H HEPATIC FUNCTION [id number] 13:24:00* Test Item Value Reference Range Interpretation Comments TOTAL PROTEIN (test code = PROT) 8.2 gram/dL 6.4-8.2 N ALBUMIN (test code = ALB) 3.0 g/dL 3.4-5.0 L GLOBULIN (test code = GLOB) 5.2 gram/dL 2.7-4.2 H ALBUMIN/GLOBULIN RATIO (test code = A/G) 0.6 0.75-1.50 L BILIRUBIN TOTAL (test code = BILT) 0.40 mg/dL 0.0-1.0 N BILIRUBIN DIRECT (test code = BILD) < 0.05 mg/dL 0.0-0.20 N SGOT/AST (test code = AST) 44 IUnit/L 15-37 H SGPT/ALT (test code = ALT) 22 IUnit/L 12-78 N ALKALINE PHOSPHATASE TOTAL (test code = ALKP) 99 IUnit/L 45-117 N Note change in reference range due to change in reagent. [id number] 13:24:00* Test Item Value Reference Range Interpretation Comments LIPASE (test code = LIP) 267 U/L 73.0-393.0 N BASIC METABOLIC [id number] 13:15:00* Test Item Value Reference Range Interpretation Comments SODIUM (test code = NA) 139 mmol/L 136-145 N POTASSIUM (test code = K) 4.8 mmol/L 3.5-5.1 N CHLORIDE (test code = CL) 105.0 mmol/L [...] CALCIUM (test code = CA) mg/dL 8.5-10.1 HEPATIC FUNCTION [id number] 13:15:00* Test Item Value Reference Range Interpretation Comments TOTAL PROTEIN (test code = PROT) gram/dL 6.4-8.2 ALBUMIN (test code = ALB) g/dL 3.4-5.0 GLOBULIN (test code = GLOB) gram/dL 2.7-4.2 ALBUMIN/GLOBULIN RATIO (test code = A/G) 0.75-1.50 BILIRUBIN TOTAL (test code = BILT) mg/dL 0.0-1.0 BILIRUBIN DIRECT (test code = BILD) mg/dL 0.0-0.20 SGOT/AST (test code = AST) IUnit/L 15-37 SGPT/ALT (test code = ALT) IUnit/L 12-78 ALKALINE PHOSPHATASE TOTAL (test code = ALKP) IUnit/L 45-117 [id number] 13:15:00* Test Item Value Reference Range Interpretation Comments LIPASE (test code = LIP) U/L 73.0-393.0 [id number] 16:46:00 RUN DATE: 05/14/20 [facility] PAGE 1 RUN TIME: 1646 Specimen Inqui ry RUN USER: INTERFACE PATIENT: MIGUEL FONTENOT ACCT #: [id number] LOC: G U #: [id number] AGE/SX: 84/F ROOM: RE05/12/20REG DR: Stan Jennings MD : 35 BED: DIS: STATUS: [facility] TLOC: SPEC #: [id number] RECD: 05/13/20 STATUS: JOSE ADAMS #: [id number] MALIKA: 05/12/20- [facility] DR: Stan Jennings MD ENTERED: 05/13/20 SP TYPE: STOMACH OTHR DR: DOES_N OT KNOW ORDERED: GROSS COPIES TO: DOES_NOT KNOW Stan Jennings MD [address] [address] PROCEDURES: GROSS (05/14/20-2346) TISSUES: CARDIA, NOS - BX CLINICAL HISTORY COLLECTION DATE: 05/12/20 WEIGHT LOSS FINAL DIAGNOSIS Specimen d esignated as cardia biopsy: MILD CHRONIC CARDITIS SQUAMOUS EPITHEL IAL MUCOSA WITH HYPERPLASTIC CHANGES SMALL FRAGMENT OF SQUAMOUS EPITHELIA L MUCOSA WITH REACTIVE ATYPIA AND CELL DEBRIS MILD ACUTE ESOPHAG ITIS SPECIAL STAIN REVEALS NO DEFINITIVE FUNGAL ORGANISMS NO INTES TINAL METAPLASIA PRESENT. KURT/liz D 61060, 9[address]87 MACR OSCOPIC The specimen is received in formalin, labeled with the patient's name , identified as "cardia biopsy", and consists of rice biopsy material measuring 0.25 cm. GROSS PERFORMED AT [facility] CONTINUED ON NEXT PAGE RUN DATE: 0 [facility] PAGE 2 RUN T SYDNI: 1646 Specimen Inquiry RUN USE R: INTERFACE --------- ---SPEC #: [id number] PATIENT: MIGUEL FONTENOTJORGE LUISKhadar #[id number] (Continued) MACROSCOPIC (Continued) [facility] [address] [place] [address], [place] [address] (P) MICROSCOPIC Two slides are examined. Microscopic examina tion of the specimen reveals fragments of squamous epithelial mucosa with hype rplastic changes. Minute fragments of squamous epithelial cells are present w ith reactive atypia admixed with acute inflammatory cells. Inflammatory cells are present within the glandular epithelium. Chronic inflammatory cells also present within cardia. Special stain reveals no definitive fungal organisms. All of the stains, including any controls performed, stain appropriate ly. MICROSCOPIC PERFORMED AT [facility] [address] [place] [address] (P)[phone] P ERFORMING SITE Diagnosis performed at: [facility] [address] [facility] [place] [address] Signed SIGNATURE ON FILE Ashley Bloom MD 05/14/20 1646 END OF REPORT [id number] 14:49:00 * Test Item Value Reference Range Interpretation Comments POTASSIUM (test code = K) 4.8 mmol/L 3.5-5.1 N Novel Coronavirus 07:19:00* Test Item Value Reference Range Interpretation Comments Novel Coronavirus 2019 Inhouse (test code = [id number]) Negative Negative Positive results are indicative of the presence dcRVTZ-TzR-7 RNA, clinical correlation with patient historyand other [...] moleculardiagnostic SARS-CoV-2 assay in vitro. Novel Coronavirus [id number] 07:18:00* Test Item Value Reference Range Interpretation Comments Novel Coronavirus 2019 Inhouse (test code = [id number]) Negative Negative Positive results are indicative of the presence ukOVFZ-ToU-1 RNA, clinical correlation with patient historyand other [...] the identification of SARS-CoV-2 RNA usingthe Black Memoright000 System under the FDA Emergency UseAuthorization. The testing is performed by personneltrained in the procedures for the Black M2000 moleculardiagnostic SARS-CoV-2 assay in vitro. Troponin I measurement by highly sensitive enzyme zpzdsujneot9156-18-09 15:12:00 * Test Item Value Reference Range Interpretation Comments Troponin I (test code = 07458-9) 0.055 0-0.300 [facility] leukocytes automated count (number/volume)2020-04-22 13:25:00* Test Item Value Reference Range Interpretation Comments White Blood Count (test code = 6690-2) 9.11 4.8-10.8 [facility] erythrocytes automated count (number/volume)2020-04-22 13:25:00* Test Item Value Reference Range Interpretation Comments Red Blood Count (test code = 789-8) 2.86 3.6-5.1 [facility] hemoglobin measurement (moles/volume)2020-04-22 13:25:00* Test Item Value Reference Range Interpretation Comments Hemoglobin (test code = 56343-6) 8.4 12.0-16.0 [facility] SouthAutomated blood hematocrit (volume fraction)2020-04-22 13:25:00* Test Item Value Reference Range Interpretation Comments Hematocrit (test code = 4544-3) 25.9 34.2-44.1 [facility] SouthAutomated erythrocyte mean corpuscular jxnmqf1204-31-88 13:25:00* Test Item Value Reference Range Interpretation Comments Mean Corpuscular Volume (test code = 787-2) 90.6 81-99 [facility] South[facility]ated erythrocyte mean corpuscular hemoglobin (mass per erythrocyte)2020-04-22 13:25:00* Test Item Value Reference Range Interpretation Comments Mean Corpuscular Hemoglobin (test code = 785-6) 29.4 28-32 [facility] SouthAutomated erythrocyte mean corpuscular hemoglobin concentration measurement (mass/volume)2020-04-22 13:25:00* Test Item Value Reference Range Interpretation Comments Mean Corpuscular Hemoglobin Concent (test code = 786-4) 32.4 31-35 [facility] SouthRDW NkbWb-Wsv2740-27-25 13:25:00* Test Item Value Reference Range Interpretation Comments Red Cell Distribution Width (test code = 87835-4) 13.8 11.7 -14.4 [facility] SouthAutlifecare hospitals of north carolinaed blood platelet count (count/volume)2020-04-22 13:25:00* Test Item Value Reference Range Interpretation Comments Platelet Count (test code = 777-3) 112 140-360 [facility] neutrophil count as percentage of total vhzmjqqafd6810-94-27 13:25:00* Test Item Value Reference Range Interpretation Comments Neutrophils (%) (Auto) (test code = 47374-9) 78.7 38.7-80.0 [facility] SouthAutomated blood lymphocyte count as percentage ot total schjjuylin2001-27-32 13:25:00* Test Item Value Reference Range Interpretation Comments Lymphocytes (%) (Auto) (test code = 736-9) 11.7 18.0-39.1 [facility] SouthAutomated blood monocyte count as percentage of total tyebhrzmgw4291-66-85 13:25:00* Test Item Value Reference Range Interpretation Comments Monocytes (%) (Auto) (test code = 5905-5) 6.3 4.4-11.3 [facility] SouthAutomated blood eosinophil count as percentage of total wfcisromjv4463-49-27 13:25:00* Test Item Value Reference Range Interpretation Comments Eosinophils (%) (Auto) (test code = 713-8) 2.6 0.0-6.0 [facility] SouthAutomated blood basophil count as percentage of total eekdqnuenf0352-54-05 13:25:00* Test Item Value Reference Range Interpretation Comments Basophils (%) (Auto) (test code = 706-2) 0.2 0.0-1.0 [facility] SouthFluoroscopic procedure less than one hour sbsiuseu4153-89-02 13:25:00* Test Item Value Reference Range Interpretation Comments IM GRANULOCYTES % (test code = IM GRANULOCYTES %) 0.5 0.0- 1.0 [facility] SouthAutomated blood neutrophil count 2020-04-22 13:25:00* Test Item Value Reference Range Interpretation Comments Neutrophils # (Auto) (test code = 751-8) 7.2 2.1-6.9 [facility] South[facility] lymphocytes count (number/volume) 2020-04-22 13:25:00* Test Item Value Reference Range Interpretation Comments Lymphocytes # (Auto) (test code = 22928-2) 1.1 1.0-3.2 [facility] SouthBlood monocytes automated count (number/volume)2020-04-22 13:25:00* Test Item Value Reference Range Interpretation Comments Monocytes # (Auto) (test code = 742-7) 0.6 0.2-0.8 [facility] SouthAutomated blood eosinophil count 2020-04-22 13:25:00* Test Item Value Reference Range Interpretation Comments Eosinophils # (Auto) (test code = 711-2) 0.2 0.0-0.4 [facility] SouthAutomated blood basophil count (count/volume)2020-04-22 13:25:00* Test Item Value Reference Range Interpretation Comments Basophils # (Auto) (test code = 704-7) 0.0 0.0-0.1 [facility] SouthFluoroscopic procedure less than one hour lwcvvwys2070-91-82 13:25:00* Test Item Value Reference Range Interpretation Comments Absolute Immature Granulocyte (auto (karo t code = Absolute Immature Granulocyte (auto) 0.05 0-0.1 [facility] sodium measurement (moles/volume)2020-04-22 13:25:00* Test Item Value Reference Range Interpretation Comments Sodium Level (test code = 2951-2) 140 136-145 [facility] potassium measurement (moles/volume)2020-04-22 13:25:00* Test Item Value Reference Range Interpretation Comments Potassium Level (test code = 2823-3) 4.1 3.5-5.1 [facility] chloride measurement (moles/volume)2020-04-22 13:25:00* Test Item Value Reference Range Interpretation Comments Chloride Level (test code = 2075-0) 103 98-107 [facility] or plasma carbon dioxide, total measurement (moles/volume)2020-04-22 13:25:00* Test Item Value Reference Range Interpretation Comments Carbon Dioxide Level (test code = 2028-9) 23 22-29 [facility] or plasma anion snj5774-93-11 13:25:00* Test Item Value Reference Range Interpretation Comments Anion Gap (test code = 21325-4) 18.1 8-16 [facility] or plasma urea nitrogen measurement (mass/volume)2020-04-22 13:25:00* Test Item Value Reference Range Interpretation Comments Blood Urea Nitrogen (test code = 3094-0) 44 7-26 [facility] or plasma creatinine measurement (mass/volume)2020-04-22 13:25:00* Test Item Value Reference Range Interpretation Comments Creatinine (test code = 2160-0) 7.03 0.57-1.11 [facility] or plasma urea nitrogen/creatinine mass zohpm9396-08-22 13:25:00* Test Item Value Reference Range Interpretation Comments BUN/Creatinine Ratio (test code = 3097-3) 6 6-25 [facility] SouthEstimated glomerular filtration rate (GFR) ohdgxpgixseig3449-20-16 13:25:00* Test Item Value Reference Range Interpretation Comments Estimat Glomerular Filtration Rate (test code = 181171035) 6 >60 Ranges were taken from the National Kidney Disease Education Program and the Danitza alleghany healthal Kid[employer] Foundation literature.Reference ranges:60 or greater: Ntbyqm73-81 ( for 3 consecutive months): Chronic kidney disease 15 or less: Kidney failureTexas [facility] Hospital [facility] SouthGlucose fsdvvnglurb3443-34-42 13:25:00* Test Item Value Reference Range Interpretation Comments Glucose Level (test code = EBA2739) 116 74-118 [facility] or [facility] calcium measurement (mass/volume)2020-04-22 13:25:00* Test Item Value Reference Range Interpretation Comments Calcium Level (test code = 17432-2) 8.5 8.4-10.2 [facility] or plasma total bilirubin measurement (mass/volume)2020-04-22 13:25:00* Test Item Value Reference Range Interpretation Comments Total Bilirubin (test code = 1975-2) 0.6 0.2-1.2 [facility] SouthFluoroscopic procedure less than one hour pjylbojv7363-67-51 13:25:00* Test Item Value Reference Range Interpretation Comments Aspartate Amino Transf (AST/SGOT) (test code = Aspartate Amino Transf (AST/SGOT)) 16 5-34 [facility]ererum or plasma alanine aminotransferase measurement (enzymatic activity/volume)2020-04-22 13:25:00* Test Item Value Reference Range Interpretation Comments Alanine Aminotransferase (ALT/SGPT) (test code = 1742-6) 11 0-55 [facility]ere[facility] or plasma protein measurement (mass/volume)2020-04-22 13:25:00* Test Item Value Reference Range Interpretation Comments Total Protein (test code = 2885-2) 6.0 6.5-8.1 [facility]ererum or plasma albumin measurement (mass/volume)2020-04-22 13:25:00* Test Item Value Reference Range Interpretation Comments Albumin (test code = 1751-7) 2.7 3.5-5.0 [facility] SouthPlasma globulin measurement (mass/volume) 2020-04-22 13:25:00* Test Item Value Reference Range Interpretation Comments Globulin (test code = 77846-4) 3.3 2.3-3.5 [facility]ere[facility] or plasma albumin/globulin mass trfsd7114-53-75 13:25:00* Test Item Value Reference Range Interpretation Comments Albumin/Globulin Ratio (test code = 1759-0) 0.8 0.8-2.0 [facility]ererum or plasma alkaline phosphatase measurement (enzymatic activity/volume)2020-04-22 13:25:00* Test Item Value Reference Range Interpretation Comments Alkaline Phosphatase (test code = 6768-6) 64 40-150 [facility] SouthCT BRAIN FU9279-29-26 12:50:00 [place] [address] Patient Name: MIGUEL FONTENOT MR #: [id number] : 1935 Age/Sex: 84/F Req #: [id number] Adm Physician: Ordered by: Clau Kitchen MD Report #: [id number] Location: Room/Bed: Procedure: [id number] CT/C T BRAIN WO Exam Date: 04/22/20 Exam Time: 1215 REPORT STATUS: Signed Examination: CT head without contrast Clinical Indication: Left arm weakness. Slurred speech.. Technique: Transaxial noncontrast images from the skull base through the earline laxmi were obtained. Sagittal and coronal reformatted images were done. Dose m odulation, iterative reconstruction, and/or weight based adjustment of the mA/ kV was utilized to reduce the radiation dose to as low as reasonably achievabl e. Comparison: Brain MRI and head CT performed January 28, 2020. Findings: Scalp: No abnormalities. Bones: Intact. No fractures. No blastic or lytic lesions. Brain sulci: Generalized volume loss for patient's age. Ventri cles: No hydrocephalus. Extra-axial space: No acute amounts. Previousl y described left frontal meningioma on the brain MRI is not discernible on the head CT. Parenchyma: There are patchy areas of low-attenuation within s ubcortical and periventricular white matter, nonspecific, but could represent microvascular ischemic disease. No masses, hemorrhage, or acute cortical bas ed vascular insults. Cortical-based encephalomalacia is again demonstrated in the left superior and middle frontal gyri and adjacent left frontal deep white matter. Suprasellar region: No abnormalities. Craniocervical junction: T he foramen magnum is patent. No Chiari one malformation. Incidental find ings: Atherosclerotic calcification of the cavernous and supraclinoid interna l carotid and V4 segments of the bilateral vertebral arteries. Impressio n: 1. No acute intracranial finding when compared to prior brain MRI and h ead CT performed January 28, 2020. 2. Unchanged chronic microvascular ischem ic change. 3. 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 Signed by: Dr. Yumiko Posada M.D. on 04/22/2020 12:54 PM Dictated By: YUMIKO DODSON MD Electron ically Signed By: YUMIKO DODSON MD on 04/22/20 1254 Transcribed By: YAQUELIN on 04/22/20 1254 COPY TO: CLAU KITCHEN MD GLUCOSE BEDSIDE XTHKGSP0802-09-31 11:05:00* Test Item Value Reference Range Interpretation Comments GLUCOSE BEDSIDE TESTING (test code = GLUBED) 120 MG/DL 60-99 H BASIC METABOLIC [id number] 07:32:00* Test Item Value Reference Range Interpretation [...] CA) 8.9 MG/DL 8.4-10.2 N CBC W/AUTO [id number] 07:29:00* Test Item Value Reference Range Interpretation [...] K/mm3 0.0-0.1 N - MRA HEAD W/O [id number] 11:39:00 Patient Name: MIGUEL FONTENOT Unit No: [id number] EXAMS: CPT CODE: [id number] MRA HEAD W/O CONT 94116 MRA brain without contrast 04/17/2020 11:34 AM CLINICAL HISTORY: CVA, right approximately weakness, slurred speech COMPARISON: CT head 04/15/2020; MRI brain 04/16/2020. LOCATION: U19 TECHNIQUE: Three-dimensional zlwk-mw-azxuve intracranial MRA was performed, from which maximal [...] (RT) George (CT) (MRI) Transcrpt Date/Tm/Trnsp: 04/17/2020 (113) t.[email or web address].JW22 Orig Print D/T: S: 04/17/2020 (8728) [facility] NAME: MIGUEL FONTENOT [address] PHYS: [place] [address] : 1935 AGE: 84 SEX: F LOC: [id number] A PHONE #: [phone] EXAM DATE: 04/17/2020 STATUS: ADM IN FAX #: [phone] RADIOLOGY NO: PAGE 1 Signed Report GLYCOSYLATED HEMOGLOBIN [id number] 07:46:00* Test Item Value Reference Range Interpretation [...] MBG) 114 MG/DL 70-110 H BASIC METABOLIC [id number] 07:27:00* Test Item Value Reference Range Interpretation [...] HIGH.........160- 189 mg/dL VERY HIGH.........>/= 190 mg/dL [id number] 07:27:00* Test Item Value Reference Range Interpretation Comments PHOSPHOROUS (test code = PHOS) 3.9 MG/DL 2.5-4.5 N [id number] 07:27:00* Test Item Value Reference Range Interpretation Comments MAGNESIUM (test code = MAG) 1.7 MG/DL 1.6-2.3 N THYROID STIMULATING [id number] 07:27:00* Test Item Value Reference Range Interpretation Comments THYROID STIMULATING HORMONE (test code = TSH) 2.090 MIU/L 0.465-4. 68 Please be aware that bias results for TSH may occur forpatient who are taking Biotin supplements. BASIC METABOLIC [id number] 06:18:00* Test Item Value Reference Range Interpretation [...] HIGH.........160- 189 mg/dL VERY HIGH.........>/= 190 mg/dL YUMBHLNAAEN7029-24-95 06:18:00* Test Item Value Reference Range Interpretation Comments PHOSPHOROUS (test code = PHOS) 3.9 MG/DL 2.5-4.5 N [id number] 06:18:00* Test Item Value Reference Range Interpretation Comments MAGNESIUM (test code = MAG) 1.7 MG/DL 1.6-2.3 N THYROID STIMULATING [id number] 06:18:00* Test Item Value Reference Range Interpretation Comments THYROID STIMULATING HORMONE (test code = TSH) MIU/L 0.465-4. 68 BASIC METABOLIC [id number] 06:10:00* Test Item Value Reference Range Interpretation [...] LDL (test code = LDL) MG/DL 0-99 [id number] 06:10:00* Test Item Value Reference Range Interpretation Comments PHOSPHOROUS (test code = PHOS) 3.9 MG/DL 2.5-4.5 N [id number] 06:10:00* Test Item Value Reference Range Interpretation Comments MAGNESIUM (test code = MAG) 1.7 MG/DL 1.6-2.3 N THYROID STIMULATING [id number] 06:10:00* Test Item Value Reference Range Interpretation Comments THYROID STIMULATING HORMONE (test code = TSH) MIU/L 0.465-4. 68 BASIC METABOLIC [id number] 06:04:00* Test Item Value Reference Range Interpretation [...] LDL (test code = LDL) MG/DL 0-99 [id number] 06:04:00* Test Item Value Reference Range Interpretation Comments PHOSPHOROUS (test code = PHOS) MG/DL 2.5-4.5 GULLVYQWC8077-08-80 06:04:00* Test Item Value Reference Range Interpretation Comments MAGNESIUM (test code = MAG) MG/DL 1.6-2.3 THYROID STIMULATING [id number] 06:04:00* Test Item Value Reference Range Interpretation Comments THYROID STIMULATING HORMONE (test code = TSH) MIU/L 0.465-4. 68 BASIC METABOLIC [id number] 06:03:00* Test Item Value Reference Range Interpretation [...] LDL (test code = LDL) MG/DL 0-99 QBPYSTBQOMP6867-94-17 06:03:00* Test Item Value Reference Range Interpretation Comments PHOSPHOROUS (test code = PHOS) MG/DL 2.5-4.5 [id number] 06:03:00* Test Item Value Reference Range Interpretation Comments MAGNESIUM (test code = MAG) MG/DL 1.6-2.3 THYROID STIMULATING [id number] 06:03:00* Test Item Value Reference Range Interpretation Comments THYROID STIMULATING HORMONE (test code = TSH) MIU/L 0.465-4. 68 CBC W/AUTO [id number] 05:50:00* Test Item Value Reference Range Interpretation [...] NRBC#) 0.00 K/mm3 0.0-0.1 N THYROID STIMULATING [id number] 22:16:00* Test Item Value Reference Range Interpretation Comments THYROID STIMULATING HORMONE (test code = TSH) 1.940 MIU/L 0.465-4. 68 N Please be aware that bias results for TSH may occur forpatient who are taking Biotin supplements. T4 [id number] 21:57:00* Test Item Value Reference Range Interpretation Comments T4 FREE (test code = T4F) 1.2 NG/DL 0.78-2.19 N - MRI BRAIN W/O [id number] 08:54:00 Patient Name: MIGUEL FONTENOT Unit No: [id number] EXAMS: CPT CODE: [id number] MRI BRAIN W/O CONTRAST 31636 Dictation location: U19. MRI BRAIN WITHOUT CONTRAST [...] Minimal thickening of the ethmoid sinuses. The [place] lenses of both globes are absent. IMPRESSION: [...] Stalin Pollard MD Technologist: Stephan Bernal (RT) R (CT) (MRI) Transcrpt Date/Tm/Trnsp: 04/16/2020 (0854) t.SDR.SP17 Orig Print D/T: S: 04/16/2020 (0857) [facility] NAME: MIGUEL FONTENOT [address] PHYS: [facility]. [place] [address] : 1935 AGE: 84 SEX: F ACCT NO: [id number] LOC: [id number] A PHONE #: [phone] EXAM DATE: 03/29 STATUS: ADM IN FAX #: [phone] RADIOLOGY NO: PAGE 1 Signed Report COVID 19 Asymptomatic IH [id number] 20:31:00* Test Item Value Reference Range Interpretation [...] virus (antigen) in the sample." BASIC METABOLIC [id number] 13:48:00* Test Item Value Reference Range Interpretation Comments SODIUM (test code = NA) 140 mmol/L 136-145 N POTASSIUM (test code = K) 2.9 mmol/L 3.5-5.1 L Re sults called to DR. JOHNSON by CALVINLDB 04/15/20 1347Critical results verified and read back [...] code = CA) 10.0 mg/dL 8.5-10.1 N [id number] 13:48:00* Test Item Value Reference Range Interpretation Comments TROPONIN-I (test code = TROPI) 0.026 ng/mL 0-0.045 N - XR CHEST 1 [id number] 13:29:00 FAX: Claribel Gibson [phone] [place]: [facility]: [facility] FAX: Rodney Hernandez MD [phone] Name: MIGUEL FONTENOT [facility] : 1935 Age/S: 84/F [facility] Unit #: [id number] Loc: [place] [address] Phys: Claribel Johnson MD Acct: [id number] Dis Date: Status: REG ER PHONE #: [phone] Exam Date: 04/15/2020 1312 FAX #: [phone] Reason: CODE STROKE EXAMS: CPT CODE: [id number] XR CHEST 1 V 12131 HISTORY: Stroke. COMPARISON: June 14, 2009. Location: [facility]. No acute infiltrates, effusion or congestion is noted. Hyperinflation. The cardiac and mediastinal silhouette are within normal limits. IMPRESSION: No acute infiltrates, effusion or congestion. at 1329 Reported and signed by: Thom Cagle M.D. CC: Claribel Johnson MD; Rodney Rosado Technologist: RT Jaleel(R) Trnscrd Date/Time/By: 04/15/2020 (2290) : By: Don.TH4 Orig Print D/T: S: 04/15/2020 (6374) PAGE 1 Signed Report CBC W/AUTO [id number] 13:19:00* Test Item Value Reference Range Interpretation [...] = NRBC#) 0.00 K/mm3 0.0-0.1 N PROTHROMBIN [id number] 13:10:00* Test Item Value Reference Range Interpretation [...] (2.5-3.5) IS PATIENT ON ANTICOAGULANTS? NTHROMBOPLASTIN TIME [id number] 13:10:00* Test Item Value Reference Range Interpretation Comments THROMBOPLASTIN TIME PARTIAL (test code = PTT) 26.5 seconds 23.0-37. 0 N IS PATIENT ON ANTICOAGULANTS? N- CT HEAD/BRAIN W/O [id number] 13:03:00 Name: MIGUEL FONTENOT [facility] : 1935 Age/S: 84 / F [address] [facility] Unit #: [id number] Loc: [place] [address] Phys: Raheem Johnson MD Acct: [id number] Di s Date: Status: PRE ER PHONE #: Exam Date: 04/15/2020 1309 FAX #: Reason: difficulty with speech, right arm weakneess EXAMS: CPT CODE: [id number] CT HEAD/BRAIN W/O CONT 37317 HISTORY: Difficulty with speech and right arm weakness. COMPARISON: MRI brain from June 15, 2013. Location: [facility]. CT brain without contrast: Automated exposure control. [...] Signed by José Cagle on 04/15/2020 at 5485 Reported and signed by: Thom Cagle M.D. PAGE 1 Signed Report (CONTINUED) Name: MIGUEL FONTENOT [facility] : 1935 Age/S: 84 / F [address] [facility] Unit #: [id number] Loc: [place] [place] [address] Phys: Claribel Johnson MD Acct: [id number] Dis Date: Status: PRE ER PHONE #: [phone] Exam Date: 1305 FAX #: [phone] Reason: difficulty w ith speech, right arm weakneess EXAMS: CPT CODE: [id number] CT HEAD/BRAIN W/O CONT 28460 <Continued> CC: Claribel Johnson MD; Rodney Rosado Technologist:Eulogio Staley RT(R),(MR),(CT) CTDI: DLP: Trnscb Date/Time: 04/15/2020 (9673) t.SDR.TH4 Orig Print D/T: S: 04/15/2020 (8392) PAGE 2 Signed Report Novel Coronavirus 02:06:00* Test Item Value Reference Range Interpretation Comments Novel Coronavirus 2019 Inhouse (test code = [id number]) Negative Negative Positive results are indicative of the presence neWVXV-AcX-1 RNA, clinical correlation with patient historyand other [...] moleculardiagnostic SARS-CoV-2 assay in vitro. Novel Coronavirus 02:05:00* Test Item Value Reference Range Interpretation Comments Novel Coronavirus 2019 Inhouse (test code = NSLVH00YB) Negative Negative Positive results are indicative of the presence mbIFSV-CsI-5 RNA, clinical correlation with patient historyand other [...] moleculardiagnostic SARS-CoV-2 assay in vitro. CBC W/AUTO [id number] 14:34:00* Test Item Value Reference Range Interpretation [...] NRBC#) 0.00 K/mm3 0.0-0.1 N BASIC METABOLIC [id number] 12:55:00* Test Item Value Reference Range Interpretation [...] CA) 9.7 mg/dL 8.5-10.1 N BASIC METABOLIC JMCKO0660-79-28 12:49:00* Test Item Value Reference Range Interpretation [...] Count (test code = 6690-2) 5.66 4.8-10.8 [facility] erythrocytes automated count (number/volume)2020-01-31 05:10:00* Test Item Value Reference Range Interpretation Comments Red Blood Count (test code = 789-8) 5.20 3.6-5.1 [facility] South[facility] hemoglobin measurement (moles/volume)2020-01-31 05:10:00* Test Item Value Reference Range Interpretation Comments Hemoglobin (test code = 66496-3) 15.6 12.0-16.0 [facility] SouthAutomated blood hematocrit (volume fraction)2020-01-31 05:10:00* Test Item Value Reference Range Interpretation Comments Hematocrit (test code = 4544-3) 48.6 34.2-44.1 [facility] SouthAutomated erythrocyte mean corpuscular rpmgip5806-49-89 05:10:00* Test Item Value Reference Range Interpretation Comments Mean Corpuscular Volume (test code = 787-2) 93.5 81-99 [facility] SouthAutomated erythrocyte mean corpuscular hemoglobin (mass per erythrocyte)2020-01-31 05:10:00* Test Item Value Reference Range Interpretation Comments Mean Corpuscular Hemoglobin (test code = 785-6) 30.0 28-32 [facility] SouthAutomated erythrocyte mean corpuscular hemoglobin concentration measurement (mass/volume)2020-01-31 05:10:00* Test Item Value Reference Range Interpretation Comments Mean Corpuscular Hemoglobin Concent (test code = 786-4) 32.1 31-35 [facility] SouthRDW HeqMl-Auy6963-01-04 05:10:00* Test Item Value Reference Range Interpretation Comments Red Cell Distribution Width (test code = 32925-7) 13.6 11.7 -14.4 [facility] SouthAutomated blood platelet count (count/volume)2020-01-31 05:10:00* Test Item Value Reference Range Interpretation Comments Platelet Count (test code = 777-3) 90 140-360 [facility] neutrophil count as percentage of total foljwykhom9261-52-70 05:10:00* Test Item Value Reference Range Interpretation Comments Neutrophils (%) (Auto) (test code = 11247-2) 57.8 38.7-80.0 [facility] SouthAutomated blood lymphocyte count as percentage ot total xipyzwppws2385-35-41 05:10:00* Test Item Value Reference Range Interpretation Comments Lymphocytes (%) (Auto) (test code = 736-9) 23.1 18.0-39.1 [facility] SouthAutomated blood monocyte count as percentage of total wscarhvtxz0477-38-46 05:10:00* Test Item Value Reference Range Interpretation Comments Monocytes (%) (Auto) (test code = 5905-5) 12.9 4.4-11.3 [facility] SouthAutomated blood eosinophil count as percentage of total buzqyjmaol4792-57-23 05:10:00* Test Item Value Reference Range Interpretation Comments Eosinophils (%) (Auto) (test code = 713-8) 5.1 0.0-6.0 [facility] SouthAutomated blood basophil count as percentage of total kysackjokv1375-54-20 05:10:00* Test Item Value Reference Range Interpretation Comments Basophils (%) (Auto) (test code = 706-2) 0.9 0.0-1.0 [facility] SouthFluoroscopic procedure less than one hour tuowlygj6433-32-79 05:10:00* Test Item Value Reference Range Interpretation Comments IM GRANULOCYTES % (test code = IM GRANULOCYTES %) 0.2 0.0- 1.0 [facility] SouthAutomated blood neutrophil count 2020-01-31 05:10:00* Test Item Value Reference Range Interpretation Comments Neutrophils # (Auto) (test code = 751-8) 3.3 2.1-6.9 [facility] SouthBlood lymphocytes count (number/volume) 2020-01-31 05:10:00* Test Item Value Reference Range Interpretation Comments Lymphocytes # (Auto) (test code = 93229-2) 1.3 1.0-3.2 [facility] SouthBlood monocytes automated count (number/volume)2020-01-31 05:10:00* Test Item Value Reference Range Interpretation Comments Monocytes # (Auto) (test code = 742-7) 0.7 0.2-0.8 [facility] SouthAutomated blood eosinophil count 2020-01-31 05:10:00* Test Item Value Reference Range Interpretation Comments Eosinophils # (Auto) (test code = 711-2) 0.3 0.0-0.4 [facility] SouthAutomated blood basophil count (count/volume)2020-01-31 05:10:00* Test Item Value Reference Range Interpretation Comments Basophils # (Auto) (test code = 704-7) 0.1 0.0-0.1 [facility] SouthFluoroscopic procedure less than one hour hzhkzrbe2267-26-90 05:10:00* Test Item Value Reference Range Interpretation Comments Absolute Immature Granulocyte (auto (karo t code = Absolute Immature Granulocyte (auto) 0.01 0-0.1 [facility] SouthProthrombin time (PT) in platelet poor plasma by coagulation auefs7362-95-35 05:20:00* Test Item Value Reference Range Interpretation Comments Prothrombin Time (test code = 5902-2) 13.5 11.9-14.5 [facility] SouthINR in Platelet poor plasma by Coagulation mqywd5091-47-02 05:20:00* Test Item Value Reference Range Interpretation Comments Prothromb Time International Ratio (test code = 6301-6) 0.97 Oral Anticoagulant Therapy INR Values:1. Low Intensity Therapy 1.5 - 2.02 . Moderate Intensity Therapy 2.0 - 3.03. High Intensity Therapy(1) 2.5 - 3. 54. High Intensity Therapy(2) 3.0 - 4.05. Panic Value INR > 5.0 [facility] SouthProthrombin time (PT) in platelet poor plasma by coagulation ybwcd5303-92-89 05:20:00* Test Item Value Reference Range Interpretation Comments Prothrombin Time (test code = 5902-2) 13.5 11.9-14.5 [facility] SouthINR in Platelet poor plasma by Coagulation spetp2015-39-25 05:20:00* Test Item Value Reference Range Interpretation Comments Prothromb Time International Ratio (test code = 6301-6) 0.97 Oral Anticoagulant Therapy INR Values:1. Low Intensity Therapy 1.5 - 2.02 . Moderate Intensity Therapy 2.0 - 3.03. High Intensity Therapy(1) 2.5 - 3. 54. High Intensity Therapy(2) 3.0 - 4.05. Panic Value INR > 5.0 [facility] SouthMRA HEAD [id number] 17:44:00 [facility] [address] [address] Patient Name: MIGUEL FONTENOT MR #: [id number] : 1935 Age/Sex: 84/F Req #: [id number] Adm Physician: CHRISTEL HATHAWAY MD Ordered by: HIRAM APPLE MD Report #: [id number] Location: [facility] Room/Bed: [facility] Procedure: [id number] MRI/MRA H EAD WO Exam Date: Exam Time: REPORT STATUS: Signed MRA HEAD WO HISTORY: Stroke COMPARISON: MRA of the neck 01/29/2020, MRI of the brain 01/28/2020 BRANDON HNIQUE: 3D intracranial hyak-lq-yfihhu MRA images were obtained without contr ast. [...] COPY TO: HIRAM APPLE MD MRA NECK [id number] 15:08:00 [address] [place] [address] Patient Name: MIGUEL FONTENOT MR #: [id number] : 1935 Age/Sex: 84/F Req #: [id number] Adm Physician: CHRISTEL HATHAWAY MD Ordered by: HIRAM APPLE MD Report #: [id number] Location: MED/SURG2 Room/Bed: [facility] Procedure: [id number] MRI/MRA N ABBE WO Exam Date: Exam [...] 3:10 PM Dictated By: YUMIKO DODSON MD 09 Transcribed By: YAQUELIN on 01/29/201509 COPY TO: HIRAM MAHONEY MD Antithrombin measurement (units/volume) in platelet poor plasma by chromogenic wzrgck4951-53-24 12:23:00* Test Item Value Reference Range Interpretation Comments Anti-Thrombin III Activity (test code = 3174-0) 102 75-135 Direct Xa inhibitor anticoagulants such as rivaroxaban,apixaban and edoxaban jonnathan l lead to spuriously elevatedantithrombin activity levels possibly masking a def iciency.Performed at: [facility] [place] [address] [id number] Director: Shivam Swenson MD, Phone: [phone] [facility] SouthActivated partial thromboplastin time (aPTT) in platelet poor plasma by coagulation yewka1336-97-37 12:23:00* Test Item Value Reference Range Interpretation Comments Activated PTT (Actin FS) (test code = 14198-1) 29.2 . This test has not been validated for monitoringunfractionated heparin therapy. aPTT-based therapeuticranges for unfractionated heparin therapy have not beenest ablished. Consider ordering Heparin anti-Xa(unfractionated).Reference Range:18 years and older: 22.9 - 30.2[facility]cosaDilute Prabhakar viper venom time (dRVVT) in platelet poor plasma by coagulation assay 2020-01-29 12:23:00* Test Item Value Reference Range Interpretation Comments Dil Prabhakar Viper Venom Time Screen (test code = 6303-2) 69.3 . Reference Range:<= 47.0[facility] SouthDilute Prabhakar viper venom time (dRVVT) excess phospholipid in platelet poor oahoyy5228-83-14 12:23:00* Test Item Value Reference Range Interpretation Comments Prabhakar Viper Venom Confirm Seconds (test code = 82987-2) 44.1 . [facility] SouthDilute Prabhakar viper venom time (dRVVT) actual/normal in platelet poor plasma by coagulation koojk4824-01-90 12:23:00* Test Item Value Reference Range Interpretation Comments Dil Prabhakar Viper Venom Scrn Ratio (test code = 11592-1) 1.4 . Testing while the patient is on anticoagulant therapy,including warfarin, dabiga contreras, or a direct Xa inhibitor maycause a false positive result.Reference Range: 0.8 - 1.2[facility] AtascosaLuus anticoagulant neutralization hexagonal phase phospholipid time in platelet poor plasma by coagulation qzbwf8636-83-12 12:23:00* Test Item Value Reference Range Interpretation Comments Hexagonal Phospholipid Neutralizat (test code = 3282-1) 0 . This value is NEGATIVE.This is a qualitative assay and is therefore reported asp ositive for lupus anticoagulant or negative. Thequantitative value is provided as an aid in diagnosis.Reference Range:0 - 11[facility] AtascosaLuus anticoagulant neutralization platelet time in platelet poor plasma by coagulation lpscy8484-05-11 12:23:00* Test Item Value Reference Range Interpretation Comments Platelet Neutralization (test code = RDV3210) 1.3 . Reference Range:0.0 - 3.0This test was developed and its performance characteris ticsdetermined by [employer]. It has not been cleared or approvedby the Food and Dr ug Administration.[facility] cardiolipin IgG antibody assay by immunoassay (units/volume)2020-01-29 12:23:00* Test Item Value Reference Range Interpretation Comments Anti-Cardiolipin IgG Antibody (test code = 3181-5) <10 . Reference Range:Negative: <15Indeterminate: 15 - 20Low to medium positive: >20 - 80High positive: >80[facility]rum cardiolipin IgM antibody assay by immunoassay (units/volume)2020-01-29 12:23:00* Test Item Value Reference Range Interpretation Comments Anti-Cardiolipin IgM Antibody (test code = 3182-3) 11 . Reference Range:Negative: <13Indeterminate: 13 - 20Low to medium positive: >20 - 80High positive: >80[facility]rum cardiolipin IgA antibody assay by immunoassay (units/volume)2020-01-29 12:23:00* Test Item Value Reference Range Interpretation Comments Anti-Cardiolipin IgA Antibody (test code = 5076-5) <10 . Reference Range:Negative: <12Indeterminate: 12 - 20Low to medium positive: >20 - 80High positive: >80[facility]ererum beta 2 glycoprotein 1 IgG antibody assay (units/volume)2020-01-29 12:23:00* Test Item Value Reference Range Interpretation Comments Pmkd-jcjz-2-Glycoprotein I IgG Ab (test code = 64077-7) <10 . The reference interval reflects a 3SD or 99th percentileinterval, which is thoug ht to represent a potentiallyclinically significant result in accordance with eInternational Consensus Statement on the classificationcriteria for definitive antiphospholipid syndrome (APS). JThromb Fnpa2899;4:295-306.Reference Range:Nega tive: <21[facility] Centererum beta 2 glycoprotein 1 IgM antibody assay (units/volume)2020-01-29 12:23:00* Test Item Value Reference Range Interpretation Comments Dmnk-eyyy-6-Glycoprotein I IgM Ab (test code = 92677-2) <10 . The reference interval reflects a 3SD or 99th percentileinterval, which is thoug ht to represent a potentiallyclinically significant result in accordance with th eInternational Consensus Statement on the classificationcriteria for definitive antiphospholipid syndrome (APS). JThromb Szan6721;4:295-306.Reference Range:Nega tive: <33[facility]ererum beta 2 glycoprotein 1 IgA antibody assay (units/volume)2020-01-29 12:23:00* Test Item Value Reference Range Interpretation Comments Mzbj-euda-8-Glycoprotein I IgA Ab (test code = 86648-9) <10 . The reference interval reflects a 3SD or 99th percentileinterval.Reference Range :Negative: <26[facility]ererum phosphatidylserine IgG antibody assay by immunoassay (units/volume)2020-01-29 12:23:00* Test Item Value Reference Range Interpretation Comments Phosphatidylserine IgG Antibody (test code = 73436-7) 0 . Reference Range:<16Low Positive: 16 - 30Moderate Positive: 31 - 50High Positive: >50[facility]rum phosphatidylserine IgM antibody assay by immunoassay (units/volume)2020-01-29 12:23:00* Test Item Value Reference Range Interpretation Comments Phosphatidylserine IgM Antibody (test code = 03254-2) 7 . Reference Range:<22Low Positive: 22 - 35Moderate Positive: 36 - 50High Positive: >50[facility]ererum or plasma prothrombin IgG antibody assay (units/volume)2020-01-29 12:23:00* Test Item Value Reference Range Interpretation Comments Anti-Prothrombin IgG Antibody (test code = 41455-4) 4 . Reference Range:<21[facility]cosaFluoroscopic procedure less than one hour ktofifqo6826-48-90 12:23:00* Test Item Value Reference Range Interpretation Comments Anti-Phospholipid Antibody Interp (test code = Anti-Phospholipid Antibody Interp) Comment . Results are interpreted as indeterminate for the presenceof a lupus anticoagulan t (LA). Only one phospholipiddependent assay showed evidence of confirmation, wi th theDRVVT ratio falling just above the reference interval. Thistest may be fal sely positive if the sample is collectedwhile the patient is on warfarin, direct Xa inhibitor, ordirect thrombin inhibitor therapy. Only persistent LA meetlabor atory diagnostic criteria for antiphospholipidsyndrome. To confirm or refute the presence of an LA and todetermine persistence, repeat testing in 12 or more we ksis recommended. Ideally, repeat testing should be performedin the absence of a nticoagulant therapy. All JASMIN-basedantiphospholipid antibodies evaluated are n ormal. Pleasecontact [facility] if further clarification isneeded.Perf ormed at: [facility] [address]pk[address] [id number] Director: Junior Cardona MD, Phone: [phone] Mountain Medical Centererum or plasma sodium measurement (moles/volume)2020-01-29 04:45:00* Test Item Value Reference Range Interpretation Comments Sodium Level (test code = 2951-2) 142 136-145 [facility] or plasma potassium measurement (moles/volume)2020-01-29 04:45:00* Test Item Value Reference Range Interpretation Comments Potassium Level (test code = 2823-3) 3.8 3.5-5.1 [facility] or plasma chloride measurement (moles/volume)2020-01-29 04:45:00* Test Item Value Reference Range Interpretation Comments Chloride Level (test code = 2075-0) 111 98-107 [facility] or plasma carbon dioxide, total measurement (moles/volume)2020-01-29 04:45:00* Test Item Value Reference Range Interpretation Comments Carbon Dioxide Level (test code = 2028-9) 19 22-29 [facility] or plasma anion dey7013-32-11 04:45:00* Test Item Value Reference Range Interpretation Comments Anion Gap (test code = 76543-4) 15.8 8-16 [facility] or plasma urea nitrogen measurement (mass/volume)2020-01-29 04:45:00* Test Item Value Reference Range Interpretation Comments Blood Urea Nitrogen (test code = 3094-0) 37 7-26 [facility] or plasma creatinine measurement (mass/volume)2020-01-29 04:45:00* Test Item Value Reference Range Interpretation Comments Creatinine (test code = 2160-0) 6.57 0.57-1.11 [facility] or plasma urea nitrogen/creatinine mass iabtl1661-18-54 04:45:00* Test Item Value Reference Range Interpretation Comments BUN/Creatinine Ratio (test code = 3097-3) 6 6-25 [facility] SouthEstimated glomerular filtration rate (GFR) eekfyulygtzwb2827-42-79 04:45:00* Test Item Value Reference Range Interpretation Comments Estimat Glomerular Filtration Rate (test code = 138603372) 6 >60 Ranges were taken from the National Kidney Disease Education Program and the Danitza alleghany healthal Kid[employer] Foundation literature.Reference ranges:60 or greater: Omvlpg86-22 ( for 3 consecutive months): Chronic kidney disease 15 or less: Kidney failureTexas Health Huguley Hospital [facility] SouthGlucose dtfnsighztu7012-74-47 04:45:00* Test Item Value Reference Range Interpretation Comments Glucose Level (test code = FDF2600) 103 74-118 [facility] or plasma calcium measurement (mass/volume)2020-01-29 04:45:00* Test Item Value Reference Range Interpretation Comments Calcium Level (test code = 24090-9) 10.1 8.4-10.2 [facility] SouthFluoroscopic procedure less than one hour mqljjejo5454-75-57 04:45:00* Test Item Value Reference Range Interpretation Comments Hemoglobin A1c Percent (test code = Hemoglobin A1c Percent) 4.6 4.0-7.0 [facility] or plasma total bilirubin measurement (mass/volume)2020-01-29 04:45:00* Test Item Value Reference Range Interpretation Comments Total Bilirubin (test code = 1975-2) 0.3 0.2-1.2 [facility] SouthFluoroscopic procedure less than one hour snylpecq4470-76-83 04:45:00* Test Item Value Reference Range Interpretation Comments Aspartate Amino Transf (AST/SGOT) (test code = Aspartate Amino Transf (AST/SGOT)) 14 5-34 [facility] or plasma alanine aminotransferase measurement (enzymatic activity/volume)2020-01-29 04:45:00* Test Item Value Reference Range Interpretation Comments Alanine Aminotransferase (ALT/SGPT) (test code = 1742-6) 12 0-55 [facility] or plasma protein measurement (mass/volume)2020-01-29 04:45:00* Test Item Value Reference Range Interpretation Comments Total Protein (test code = 2885-2) 6.4 6.5-8.1 [facility] or plasma albumin measurement (mass/volume)2020-01-29 04:45:00* Test Item Value Reference Range Interpretation Comments Albumin (test code = 1751-7) 2.6 3.5-5.0 [facility] SouthPlasma globulin measurement (mass/volume) 2020-01-29 04:45:00* Test Item Value Reference Range Interpretation Comments Globulin (test code = 41810-3) 3.8 2.3-3.5 [facility] or plasma albumin/globulin mass jnduo1407-27-91 04:45:00* Test Item Value Reference Range Interpretation Comments Albumin/Globulin Ratio (test code = 1759-0) 0.7 0.8-2.0 [facility] or plasma alkaline phosphatase measurement (enzymatic activity/volume)2020-01-29 04:45:00* Test Item Value Reference Range Interpretation Comments Alkaline Phosphatase (test code = 6768-6) 96 40-150 [facility] or plasma triglyceride measurement (mass/volume)2020-01-29 04:45:00* Test Item Value Reference Range Interpretation Comments Triglycerides Level (test code = 2571-8) 111 0-149 [facility] or plasma cholesterol measurement (mass/volume)2020-01-29 04:45:00* Test Item Value Reference Range Interpretation Comments Cholesterol Level (test code = 2093-3) 104 0-199 Less than 200 mg/dL Low Tsiu671 - 239 mg/dL Borderline Vvyl898 m g/dl and greater High Risk [facility] or plasma cholesterol in LDL measurement (mass/volume) 2020-01-29 04:45:00* Test Item Value Reference Range Interpretation Comments LDL Cholesterol (test code = 2089-1) 42 60-130 [facility] or plasma cholesterol in HDL measurement (mass/volume)2020-01-29 04:45:00* Test Item Value Reference Range Interpretation Comments HDL Cholesterol (test code = 2085-9) 40 40-60 [facility] or plasma total cholesterol/cholesterol in HDL mass hnfop0214-70-64 04:45:00* Test Item Value Reference Range Interpretation Comments Cholesterol/HDL Ratio (test code = 9830-1) 2.6 3.0-3.6 [facility] or plasma thyrotropin measurement by detection limit <= 0.005 miu/l (units/volume)2020-01-29 04:45:00* Test Item Value Reference Range Interpretation Comments Thyroid Stimulating Hormone (TSH) (test code = 87384-4) 2.627 0.350-4.940 [facility] SouthFluoroscopic procedure less than one hour qtbmfacf2526-89-89 04:45:00* Test Item Value Reference Range Interpretation Comments Hemoglobin A1c Percent (test code = Hemoglobin A1c Percent) 4.6 4.0-7.0 [facility] or plasma triglyceride measurement (mass/volume)2020-01-29 04:45:00* Test Item Value Reference Range Interpretation Comments Triglycerides Level (test code = 2571-8) 111 0-149 [facility] or plasma cholesterol measurement (mass/volume)2020-01-29 04:45:00* Test Item Value Reference Range Interpretation Comments Cholesterol Level (test code = 2093-3) 104 0-199 Less than 200 mg/dL Low Hpic245 - 239 mg/dL Borderline Jtfi384 m g/dl and greater High Risk [facility] or plasma cholesterol in LDL measurement (mass/volume) 2020-01-29 04:45:00* Test Item Value Reference Range Interpretation Comments LDL Cholesterol (test code = 2089-1) 42 60-130 [facility] or plasma cholesterol in HDL measurement (mass/volume)2020-01-29 04:45:00* Test Item Value Reference Range Interpretation Comments HDL Cholesterol (test code = 2085-9) 40 40-60 [facility] or plasma total cholesterol/cholesterol in HDL mass hvyfy4770-48-05 04:45:00* Test Item Value Reference Range Interpretation Comments Cholesterol/HDL Ratio (test code = 9830-1) 2.6 3.0-3.6 [facility] or plasma thyrotropin measurement by detection limit <= 0.005 miu/l (units/volume)2020-01-29 04:45:00* Test Item Value Reference Range Interpretation Comments Thyroid Stimulating Hormone (TSH) (test code = 33818-9) 2.627 0.350-4.940 [facility] SouthMRI BRAIN [id number] 17:14:00 [facility] [address] [address] Patient Name: MIGUEL FONTENOT MR #: [id number] : 1935 Age/Sex: 84/F Req #: [id number] Adm Physician: KIRIT ALEXANDER MD Ordered by: ATILIO OSBORNE [employer] ENGINEER Report #: [id number] Location: [facility] Room/Bed: [place] [address] Procedure: [id number] MRI/MRI B RAIN WO Exam Date: Exam [...] focal area of cortical acute or subac elem ischemia in the left subcentral gyrus. 3. [...] Hormone (test code = 2731-8) 282 15-65 [facility] calcium measurement (mass/volume)2020-01-28 15:53:00* Test Item Value Reference Range Interpretation Comments Calcium (Send out) (test code = 70545-4) 10.1 8.7-10.3 [facility] SouthFluoroscopic procedure less than one hour dfuaopel0453-09-19 15:53:00* Test Item Value Reference Range Interpretation Comments Parathyroid Hormone Interpretation (test code = Parathyroid Hormone Interpretation) Comment . Interpretation Intact PTH Calcium (pg/mL) (mg/dL)Normal 15 - 65 8.6 - 10.2Pr imary Hyperparathyroidism >65 >10.2Secondary Hyperparathyroidism >65 <10.2Non-Parathyroid Hypercalcemia <65 >10.2Hypoparathyroidism <15 < 8.6Non- Parathyroid Hypocalcemia 15 - 65 < 8.6Performed at: - [facility] [address] [id number] Director: Winston Mcmillan MD, Phone: [phone] at: - [facility] [id number] Director: Shivam Swenson MD, Phone: [phone] Mountain Medical Centererum or plasma intact pararthyroid hormone measurement (mass/volume)2020-01-28 15:53:00* Test Item Value Reference Range Interpretation Comments Parathyroid Hormone (test code = 2731-8) 282 15-65 [facility] plasma calcium measurement (mass/volume)2020-01-28 15:53:00* Test Item Value Reference Range Interpretation Comments Calcium (Send out) (test code = 12483-7) 10.1 8.7-10.3 [facility] SouthFluoroscopic procedure less than one hour wbbalroc1257-25-51 15:53:00* Test Item Value Reference Range Interpretation Comments Parathyroid Hormone Interpretation (test code = Parathyroid Hormone Interpretation) Comment . Interpretation Intact PTH Calcium (pg/mL) (mg/dL)Normal 15 - 65 8.6 - 10.2Pr imary Hyperparathyroidism >65 >10.2Secondary Hyperparathyroidism >65 <10.2Non-Parathyroid Hypercalcemia <65 >10.2Hypoparathyroidism <15 < 8.6Non- Parathyroid Hypocalcemia 15 - 65 < 8.6Performed at: - [facility] [address] [id number] Director: Winston Mcmillan MD, Phone: [phone] at: [facility] [address] [id number] Director: Shivam Swenson MD, Phone: [phone] [facility] SouthFluoroscopic procedure less than one hour emzlyjpn2451-52-14 15:37:00* Test Item Value Reference Range Interpretation [...] complexity tests.Testing performed by [facility] [address] [place], [place] [phone] Director: Dirk Lima M.D.CLIA # [id number] [facility] Fluoroscopic procedure less than one hour edowqeel8522-49-42 15:37:00* Test Item Value Reference Range Interpretation [...] complexity tests.Testing performed by [facility] [address] [place] [address] [phone] Director: Dirk Lima M.D.CLIA # [id number] [facility] SINGLE (PORTABLE)2020-01-28 12:34:00 [place] [address] Patient Name: MIGUEL FONTENOT MR #: [id number] : 1935 Age/Sex: 84/F Req #: [id number] Adm Physician: Ordered by: AVA FENTON DO Report #: [id number] Location: ER Room/Bed: Procedure: [id number] DX/[facility] SINGLE (PORTABLE) Exam Date: 01/28/20 Exam [...] COPY TO: AVA FENTON DO CT BRAIN [id number] 12:31:00 [place] [address] Patient Name: MIGUEL FONTENOT MR #: [id number] : 1935 Age/Sex: 84/F Req #: [id number] Adm Physician: Ordered by: AVA FENTON DO Report #: [id number] Location: ER Room/Bed: Procedure: [id number] CT/CT BRAIN WO Exam Date: 01/28/20 Exam [...] Creatine Kinase (test code = 2157-6) 42 94-168 [facility] or plasma creatine kinase MB measurement (mass/volume)2020-01-28 11:11:00* Test Item Value Reference Range Interpretation Comments Creatine Kinase MB (test code = 81928-5) 1.90 0-5.0 [facility] SouthTroponin I measurement by highly sensitive enzyme tglsrdinafg5432-43-77 11:11:00* Test Item Value Reference Range Interpretation Comments Troponin I (test code = 19685-8) 0.317 0-0.300 [facility]ererum or plasma creatine kinase measurement (enzymatic activity/volume)2020-01-28 11:11:00* Test Item Value Reference Range Interpretation Comments Creatine Kinase (test code = 2157-6) 42 29-168 [facility]ererum or plasma creatine kinase MB measurement (mass/volume)2020-01-28 11:11:00* Test Item Value Reference Range Interpretation Comments Creatine Kinase MB (test code = 61239-7) 1.90 0-5.0 [facility] SouthCHEST SINGLE (PORTABLE)2020-01-27 13:39:00 [place] [address] Patient Name: MIGUEL FONTENOT MR #: [id number] : 1935 Age/Sex: 84/F Req #: [id number] Adm Physician: Ordered by: VADIM MUNOZ Report #: [id number] Location: ER Room/Bed: Procedure: [id number] DX/CHEST SINGLE (PORTABLE) Exam Date: 01/27/20 Exam [...] 1:44 PM Dictated By: JAZMYN ANDRES MD 1342 T ranscribed By: YAQUELIN on 01/27/20 1340 COPY TO: VADIM MUNOZ CT BRAIN [id number] 13:34:00 [facility] [address] [place] [address] Patient Name: MIGUEL FONTENOT MR #: [id number] : 1935 Age/Sex: 84/F Req #: [id number] Adm Physician: Ordered by: VADIM MUNOZ Report #: [id number] Location: ER Room/Bed: Procedure: [id number] CT/CT BRA IN WO Exam Date: 01/27/20 [...] Level (test code = 2951-2) 141 136-145 [facility] potassium measurement (moles/volume)2020-01-27 12:30:00* Test Item Value Reference Range Interpretation Comments Potassium Level (test code = 2823-3) 4.3 3.5-5.1 [facility] or plasma chloride measurement (moles/volume)2020-01-27 12:30:00* Test Item Value Reference Range Interpretation Comments Chloride Level (test code = 2075-0) 110 98-107 [facility]ererum or plasma carbon dioxide, total measurement (moles/volume)2020-01-27 12:30:00* Test Item Value Reference Range Interpretation Comments Carbon Dioxide Level (test code = 2028-9) 19 22-29 [facility]ererum or plasma anion hdg4531-93-67 12:30:00* Test Item Value Reference Range Interpretation Comments Anion Gap (test code = 00803-1) 16.3 8-16 [facility]ererum or plasma urea nitrogen measurement (mass/volume)2020-01-27 12:30:00* Test Item Value Reference Range Interpretation Comments Blood Urea Nitrogen (test code = 3094-0) 34 7-26 [facility]ererum or plasma creatinine measurement (mass/volume)2020-01-27 12:30:00* Test Item Value Reference Range Interpretation Comments Creatinine (test code = 2160-0) 7.08 0.57-1.11 [facility]ererum or plasma urea nitrogen/creatinine mass obzsi7995-46-79 12:30:00* Test Item Value Reference Range Interpretation Comments BUN/Creatinine Ratio (test code = 3097-3) 5 6-25 [facility] SouthEstimated glomerular filtration rate (GFR) hmjhyoknkyqrd6409-33-92 12:30:00* Test Item Value Reference Range Interpretation Comments Estimat Glomerular Filtration Rate (test code = 431017594) 6 >60 Ranges were taken from the National Kidney Disease Education Program and the [facility] Kidney Foundation literature.Reference ranges:60 or greater: Afkdfe36-49 ( for 3 consecutive months): Chronic kidney disease 15 or less: Kidney failureTexas Health Huguley Hospital [facility] SouthGlucose oufzrmrypec7008-48-72 12:30:00* Test Item Value Reference Range Interpretation Comments Glucose Level (test code = RHI8082) 108 74-118 [facility]ere[facility] or plasma calcium measurement (mass/volume)2020-01-27 12:30:00* Test Item Value Reference Range Interpretation Comments Calcium Level (test code = 90293-0) 10.9 8.4-10.2 [facility]ererum or plasma magnesium measurement (mass/volume)2020-01-27 12:30:00* Test Item Value Reference Range Interpretation Comments Magnesium Level (test code = 87713-3) 1.9 1.3-2.1 [facility]ererum or plasma total bilirubin measurement (mass/volume)2020-01-27 12:30:00* Test Item Value Reference Range Interpretation Comments Total Bilirubin (test code = 1975-2) 0.3 0.2-1.2 [facility] SouthFluoroscopic procedure less than one hour qwqrtbap2989-50-36 12:30:00* Test Item Value Reference Range Interpretation Comments Aspartate Amino Transf (AST/SGOT) (test code = Aspartate Amino Transf (AST/SGOT)) 14 5-34 [facility]ererum or plasma alanine aminotransferase measurement (enzymatic activity/volume)2020-01-27 12:30:00* Test Item Value Reference Range Interpretation Comments Alanine Aminotransferase (ALT/SGPT) (test code = 1742-6) 15 0-55 [facility]ererum or plasma protein measurement (mass/volume)2020-01-27 12:30:00* Test Item Value Reference Range Interpretation Comments Total Protein (test code = 2885-2) 6.7 6.5-8.1 [facility]ererum or plasma albumin measurement (mass/volume)2020-01-27 12:30:00* Test Item Value Reference Range Interpretation Comments Albumin (test code = 1751-7) 2.8 3.5-5.0 [facility] SouthPlasma globulin measurement (mass/volume) 2020-01-27 12:30:00* Test Item Value Reference Range Interpretation Comments Globulin (test code = 19222-4) 3.9 2.3-3.5 [facility]ererum or plasma albumin/globulin mass hafgb3763-12-65 12:30:00* Test Item Value Reference Range Interpretation Comments Albumin/Globulin Ratio (test code = 1759-0) 0.7 0.8-2.0 [facility]ererum or plasma alkaline phosphatase measurement (enzymatic activity/volume)2020-01-27 12:30:00* Test Item Value Reference Range Interpretation Comments Alkaline Phosphatase (test code = 6768-6) 95 40-150 [facility]ererum or plasma creatine kinase measurement (enzymatic activity/volume)2020-01-27 12:30:00* Test Item Value Reference Range Interpretation Comments Creatine Kinase (test code = 2157-6) 36 29-168 [facility]ererum or plasma creatine kinase MB measurement (mass/volume)2020-01-27 12:30:00* Test Item Value Reference Range Interpretation Comments Creatine Kinase MB (test code = 59554-8) 1.30 0-5.0 [facility] SouthTroponin I measurement by highly sensitive enzyme ekmlnpqpcjx5412-24-23 12:30:00* Test Item Value Reference Range Interpretation Comments Troponin I (test code = 65724-4) 0.496 0-0.300 [facility]ererum or plasma magnesium measurement (mass/volume)2020-01-27 12:30:00* Test Item Value Reference Range Interpretation Comments Magnesium Level (test code = 84382-7) 1.9 1.3-2.1 [facility]ererum or plasma magnesium measurement (mass/volume)2020-01-27 12:30:00* Test Item Value Reference Range Interpretation Comments Magnesium Level (test code = 21860-9) 1.9 1.3-2.1 [facility] SouthBlood leukocytes automated count (number/volume)2020-01-27 11:55:00* Test Item Value Reference Range Interpretation Comments White Blood Count (test code = 6690-2) 5.35 4.8-10.8 [facility] SouthBlood erythrocytes automated count (number/volume)2020-01-27 11:55:00* Test Item Value Reference Range Interpretation Comments Red Blood Count (test code = 789-8) 5.52 3.6-5.1 [facility] SouthBlood hemoglobin measurement (moles/volume)2020-01-27 11:55:00* Test Item Value Reference Range Interpretation Comments Hemoglobin (test code = 28694-1) 16.5 12.0-16.0 [facility] SouthAutomated blood hematocrit (volume fraction)2020-01-27 11:55:00* Test Item Value Reference Range Interpretation Comments Hematocrit (test code = 4544-3) 53.1 34.2-44.1 [facility] SouthAutomated erythrocyte mean corpuscular dcbhtj4329-39-56 11:55:00* Test Item Value Reference Range Interpretation Comments Mean Corpuscular Volume (test code = 787-2) 96.2 81-99 [facility] SouthAutomated erythrocyte mean corpuscular hemoglobin (mass per erythrocyte)2020-01-27 11:55:00* Test Item Value Reference Range Interpretation Comments Mean Corpuscular Hemoglobin (test code = 785-6) 29.9 28-32 [facility] SouthAutomated erythrocyte mean corpuscular hemoglobin concentration measurement (mass/volume)2020-01-27 11:55:00* Test Item Value Reference Range Interpretation Comments Mean Corpuscular Hemoglobin Concent (test code = 786-4) 31.1 31-35 [facility] SouthRDW SwqLz-Qbb4882-18-31 11:55:00* Test Item Value Reference Range Interpretation Comments Red Cell Distribution Width (test code = 65128-0) 13.7 11.7 -14.4 [facility] SouthAutomated blood platelet count (count/volume)2020-01-27 11:55:00* Test Item Value Reference Range Interpretation Comments Platelet Count (test code = 777-3) 87 140-360 NO CLOTThis test has been rerun and double checked for accuracy.[facility] SouthAutomated blood segmented neutrophil count as percentage of total rtqbbszyxn7440-35-94 11:55:00* Test Item Value Reference Range Interpretation Comments Neutrophils (%) (Auto) (test code = 13818-7) 69.1 38.7-80.0 [facility] blood lymphocyte count as percentage ot total gekjiafukd8144-20-69 11:55:00* Test Item Value Reference Range Interpretation Comments Lymphocytes (%) (Auto) (test code = 736-9) 14.4 18.0-39.1 [facility] SouthAutomated blood monocyte count as percentage of total otnnjefsqa9326-81-50 11:55:00* Test Item Value Reference Range Interpretation Comments Monocytes (%) (Auto) (test code = 5905-5) 11.2 4.4-11.3 [facility] SouthAutlifecare hospitals of north carolinaed blood eosinophil count as percentage of total daqbtbfzkg0260-67-26 11:55:00* Test Item Value Reference Range Interpretation Comments Eosinophils (%) (Auto) (test code = 713-8) 4.5 0.0-6.0 [facility] SouthAutomated blood basophil count as percentage of total rwvvgulxyl5579-48-30 11:55:00* Test Item Value Reference Range Interpretation Comments Basophils (%) (Auto) (test code = 706-2) 0.6 0.0-1.0 [facility] SouthFluoroscopic procedure less than one hour uaqektse2672-35-98 11:55:00* Test Item Value Reference Range Interpretation Comments IM GRANULOCYTES % (test code = IM GRANULOCYTES %) 0.2 0.0- 1.0 [facility] SouthAutomated blood neutrophil count 2020-01-27 11:55:00* Test Item Value Reference Range Interpretation Comments Neutrophils # (Auto) (test code = 751-8) 3.7 2.1-6.9 [facility] SouthBlood lymphocytes count (number/volume) 2020-01-27 11:55:00* Test Item Value Reference Range Interpretation Comments Lymphocytes # (Auto) (test code = 97155-7) 0.8 1.0-3.2 [facility] SouthBlood monocytes automated count (number/volume)2020-01-27 11:55:00* Test Item Value Reference Range Interpretation Comments Monocytes # (Auto) (test code = 742-7) 0.6 0.2-0.8 [facility] SouthAutomated blood eosinophil count 2020-01-27 11:55:00* Test Item Value Reference Range Interpretation Comments Eosinophils # (Auto) (test code = 711-2) 0.2 0.0-0.4 [facility] SouthAutomated blood basophil count (count/volume)2020-01-27 11:55:00* Test Item Value Reference Range Interpretation Comments Basophils # (Auto) (test code = 704-7) 0.0 0.0-0.1 [facility] SouthFluoroscopic procedure less than one hour knrsmclw2794-14-44 11:55:00* Test Item Value Reference Range Interpretation Comments Absolute Immature Granulocyte (auto (karo t code = Absolute Immature Granulocyte (auto) 0.01 0-0.1 [facility] SouthB-Type Natriuretic Cgmooxn0215-42-39 12:05:00* Test Item Value Reference Range Interpretation Comments B-Type Natriuretic Peptide (test code = 02543-0) 199.4 0-100 H [facility] SouthCreatine Kinase JF9188-18-13 12:04:00* Test Item Value Reference Range Interpretation Comments Creatine Kinase MB (test code = 68450-0) 1.10 0-5.0 [facility] SouthTroponin W5729-38-53 12:04:00* Test Item Value Reference Range Interpretation Comments Troponin I (test code = WDH9239) 0.021 0-0.300 [facility] Centerodium Qmpak7052-86-47 11:58:00* Test Item Value Reference Range Interpretation Comments Sodium Level (test code = 2951-2) 142 136-145 [facility] SouthPotassium Xujre5309-48-84 11:58:00* Test Item Value Reference Range Interpretation Comments Potassium Level (test code = 2823-3) 3.9 3.5-5.1 [facility] SouthChloride Qlllj9714-58-07 11:58:00* Test Item Value Reference Range Interpretation Comments Chloride Level (test code = 2075-0) 105 98-107 [facility] SouthCarbon Dioxide Iqnna4421-77-20 11:58:00* Test Item Value Reference Range Interpretation Comments Carbon Dioxide Level (test code = 2028-9) 23 22-29 [facility] SouthAnion Iud5872-36-37 11:58:00* Test Item Value Reference Range Interpretation Comments Anion Gap (test code = 48683-1) 17.9 8-16 H [facility] SouthBlood Urea Rxdcttxt4015-43-57 11:58:00* Test Item Value Reference Range Interpretation Comments Blood Urea Nitrogen (test code = 3094-0) 37 7-26 H [facility] SouthCreatinine2020-02-07 11:58:00* Test Item Value Reference Range Interpretation Comments Creatinine (test code = 2160-0) 6.64 0.57-1.11 H [facility] SouthBUN/Creatinine Pnjug7069-30-13 11:58:00* Test Item Value Reference Range Interpretation Comments BUN/Creatinine Ratio (test code = 3097-3) 6 6-25 [facility] SouthEstimat Glomerular Filtration Rate 2019-10-05 11:58:00* Test Item Value Reference Range Interpretation Comments Estimat Glomerular Filtration Rate (test code = 377875540) 6 >60 L Ranges were taken from the National Kidney Disease Education Program and the [facility] Kidney Foundation literature.Reference ranges:60 or greater: Kweydr55-68 ( for 3 consecutive months): Chronic kidney disease 15 or less: Kidney failureTexas Health [facility]uley Hospital [facility] SouthGlucose Afbum7199-30-26 11:58:00* Test Item Value Reference Range Interpretation Comments Glucose Level (test code = MNM6914) 117 74-118 [facility] SouthCalcium Shcja7167-27-02 11:58:00* Test Item Value Reference Range Interpretation Comments Calcium Level (test code = 78202-3) 9.5 8.4-10.2 [facility] SouthTotal Lplsewoqj2477-29-73 11:58:00* Test Item Value Reference Range Interpretation Comments Total Bilirubin (test code = 1975-2) 0.5 0.2-1.2 [facility] SouthAspartate Amino Transf (AST/SGOT) 2019-10-05 11:58:00* Test Item Value Reference Range Interpretation Comments Aspartate Amino Transf (AST/SGOT) (test code = Aspartate Amino Transf (AST/SGOT)) 15 5-34 [facility] SouthAlanine Aminotransferase (ALT/SGPT) 2019-10-05 11:58:00* Test Item Value Reference Range Interpretation Comments Alanine Aminotransferase (ALT/SGPT) (test code = 1742-6) 10 0-55 [facility] SouthTotal Rohhjco9116-76-67 11:58:00* Test Item Value Reference Range Interpretation Comments Total Protein (test code = 2885-2) 7.0 6.5-8.1 [facility] SouthAlbumin2020-02-07 11:58:00* Test Item Value Reference Range Interpretation Comments Albumin (test code = 1751-7) 3.3 3.5-5.0 L [facility] SouthGlobulin2020-02-07 11:58:00* Test Item Value Reference Range Interpretation Comments Globulin (test code = 42172-8) 3.7 2.3-3.5 H [facility] SouthAlbumin/Globulin Qdgya3465-84-70 11:58:00 * Test Item Value Reference Range Interpretation Comments Albumin/Globulin Ratio (test code = 1759-0) 0.9 0.8-2.0 [facility] SouthAlkaline Zjpwwjlmdxt1894-79-22 11:58:00* Test Item Value Reference Range Interpretation Comments Alkaline Phosphatase (test code = 6768-6) 108 40-150 [facility] SouthCreatine Ylualp2436-47-59 11:58:00* Test Item Value Reference Range Interpretation Comments Creatine Kinase (test code = 2157-6) 33 29-168 [facility] SouthProthrombin Ojbu1330-02-80 11:50:00* Test Item Value Reference Range Interpretation Comments Prothrombin Time (test code = 5902-2) 14.2 11.9-14.5 [facility] SouthProthromb Time International Ratio 2019-10-05 11:50:00* Test Item Value Reference Range Interpretation Comments Prothromb Time International Ratio (test code = 6301-6) 1.04 Oral Anticoagulant Therapy INR Values:1. Low Intensity Therapy 1.5 - 2.02 . Moderate Intensity Therapy 2.0 - 3.03. High Intensity Therapy(1) 2.5 - 3. 54. High Intensity Therapy(2) 3.0 - 4.05. Panic Value INR > 5.0 [facility] SouthActivated Partial Thromboplast Time 2019-10-05 11:50:00* Test Item Value Reference Range Interpretation Comments Activated Partial Thromboplast Time (test code = 77208-9) 31.2 23.8-35.5 [facility] SouthWhite Blood Xurpo6043-92-62 11:38:00* Test Item Value Reference Range Interpretation Comments White Blood Count (test code = 6690-2) 7.09 4.8-10.8 [facility] SouthRed Blood Fkiaq1347-56-88 11:38:00* Test Item Value Reference Range Interpretation Comments Red Blood Count (test code = 789-8) 4.87 3.6-5.1 [facility] SouthHemoglobin2020-02-07 11:38:00* Test Item Value Reference Range Interpretation Comments Hemoglobin (test code = 02061-8) 14.1 12.0-16.0 [facility] SouthHematocrit2020-02-07 11:38:00* Test Item Value Reference Range Interpretation Comments Hematocrit (test code = 4544-3) 43.8 34.2-44.1 [facility] SouthMean Corpuscular Lxmxed4414-97-78 11:38:00* Test Item Value Reference Range Interpretation Comments Mean Corpuscular Volume (test code = 787-2) 89.9 81-99 [facility] SouthMean Corpuscular Ojgupisvnx3138-88-76 11:38:00* Test Item Value Reference Range Interpretation Comments Mean Corpuscular Hemoglobin (test code = 785-6) 29.0 28-32 [facility] SouthMean Corpuscular Hemoglobin Concent 2019-10-05 11:38:00* Test Item Value Reference Range Interpretation Comments Mean Corpuscular Hemoglobin Concent (test code = 786-4) 32.2 31-35 [facility] SouthRed Cell Distribution Youhr9775-11-36 11:38:00* Test Item Value Reference Range Interpretation Comments Red Cell Distribution Width (test code = 40049-8) 13.6 11.7 -14.4 [facility] SouthPlatelet Cfxbd3585-50-30 11:38:00* Test Item Value Reference Range Interpretation Comments Platelet Count (test code = 777-3) 112 140-360 L [facility] SouthNeutrophils (%) (Auto)2019-10-05 11:38:00 * Test Item Value Reference Range Interpretation Comments Neutrophils (%) (Auto) (test code = 11749-2) 73.5 38.7-80.0 [facility] SouthLymphocytes (%) (Auto)2019-10-05 11:38:00 * Test Item Value Reference Range Interpretation Comments Lymphocytes (%) (Auto) (test code = 736-9) 15.8 18.0-39.1 L [facility] SouthMonocytes (%) (Auto)2019-10-05 11:38:00* Test Item Value Reference Range Interpretation Comments Monocytes (%) (Auto) (test code = 5905-5) 7.9 4.4-11.3 [facility] SouthEosinophils (%) (Auto)2019-10-05 11:38:00 * Test Item Value Reference Range Interpretation Comments Eosinophils (%) (Auto) (test code = 713-8) 1.8 0.0-6.0 [facility] SouthBasophils (%) (Auto)2019-10-05 11:38:00* Test Item Value Reference Range Interpretation Comments Basophils (%) (Auto) (test code = 706-2) 0.6 0.0-1.0 [facility] SouthIM GRANULOCYTES %2019-10-05 11:38:00* Test Item Value Reference Range Interpretation Comments IM GRANULOCYTES % (test code = IM GRANULOCYTES %) 0.4 0.0- 1.0 [facility] SouthNeutrophils # (Auto)2019-10-05 11:38:00* Test Item Value Reference Range Interpretation Comments Neutrophils # (Auto) (test code = 751-8) 5.2 2.1-6.9 [facility] SouthLymphocytes # (Auto)2019-10-05 11:38:00* Test Item Value Reference Range Interpretation Comments Lymphocytes # (Auto) (test code = 08243-8) 1.1 1.0-3.2 [facility] SouthMonocytes # (Auto)2019-10-05 11:38:00* Test Item Value Reference Range Interpretation Comments Monocytes # (Auto) (test code = 742-7) 0.6 0.2-0.8 [facility] SouthEosinophils # (Auto)2019-10-05 11:38:00* Test Item Value Reference Range Interpretation Comments Eosinophils # (Auto) (test code = 711-2) 0.1 0.0-0.4 [facility] SouthBasophils # (Auto)2019-10-05 11:38:00* Test Item Value Reference Range Interpretation Comments Basophils # (Auto) (test code = 704-7) 0.0 0.0-0.1 [facility] SouthAbsolute Immature Granulocyte (auto 2019-10-05 11:38:00* Test Item Value Reference Range Interpretation Comments Absolute Immature Granulocyte (auto (karo t code = Absolute Immature Granulocyte (auto) 0.03 0-0.1 [facility] SouthCHEST SINGLE (PORTABLE)2019-10-05 10:58:00 [facility] [address] [address] Patient Name: MIGUEL FONTENOT MR #: [id number] : 1935 Age/Sex: 84/F Req #: [id number] Adm Physician: Ordered by: [employer]Y [employer] Report #: [id number] Location: ER Room/Bed: Procedure: [id number] 034 DX/CHEST [...] on 10/05/19 1058 COPY TO: [employer]INEER CT BRAIN [id number] 10:55:[address] [address] Patient Name: MIGUEL FONTENOT MR #: [id number] : 07/1935 Age/Sex: 84/F Req #: [id number] Adm Physician: Ordered by: [employer]Y [employer] Report #: [id number] Location: Room/Bed: Procedure: [id number]/CT BRAIN WO [...] 11:01 AM Dictated By: CEZAR CABRERA MD 00 COPY TO: AUG[place]O SO NP Prothrombin time (PT) in platelet poor plasma by coagulation vmleu2024-54-33 09:48:00* Test Item Value Reference Range Interpretation Comments Prothrombin Time (test code = 5902-2) 14.2 11.9-14.5 [facility] SouthINR in Platelet poor plasma by Coagulation wvxiz4770-46-47 09:48:00* Test Item Value Reference Range Interpretation Comments Prothromb Time International Ratio (test code = 6301-6) 1.04 Oral Anticoagulant Therapy INR Values:1. Low Intensity Therapy 1.5 - 2.02 . Moderate Intensity Therapy 2.0 - 3.03. High Intensity Therapy(1) 2.5 - 3. 54. High Intensity Therapy(2) 3.0 - 4.05. Panic Value INR > 5.0 [facility] SouthActivated partial thromboplastin time (aPTT) in platelet poor plasma by coagulation hqeds5689-51-22 09:48:00* Test Item Value Reference Range Interpretation Comments Activated Partial Thromboplast Time (test code = 49207-1) 31.2 23.8-35.5 [facility]d-jFax5808-90-41 09:48:00* Test Item Value Reference Range Interpretation Comments B-Type Natriuretic Peptide (test code = 62187-7) 199.4 0-100 [facility] SouthActivated partial thromboplastin time (aPTT) in platelet poor plasma by coagulation ocfui1850-32-38 09:48:00* Test Item Value Reference Range Interpretation Comments Activated Partial Thromboplast Time (test code = 74365-2) 31.2 23.8-35.5 [facility] Centerd-wNgo4348-27-52 09:48:00* Test Item Value Reference Range Interpretation Comments B-Type Natriuretic Peptide (test code = 59867-3) 199.4 0-100 [facility] SouthActivated partial thromboplastin time (aPTT) in platelet poor plasma by coagulation tutfu9953-10-37 09:48:00* Test Item Value Reference Range Interpretation Comments Activated Partial Thromboplast Time (test code = 32581-2) 31.2 23.8-35.5 [facility] SouthBNP Eke-cEli5017-78-07 09:48:00* Test Item Value Reference Range Interpretation Comments B-Type Natriuretic Peptide (test code = 92587-2) 199.4 0-100 [facility]odium Pkyok4694-23-63 07:12:00* Test Item Value Reference Range Interpretation Comments Sodium Level (test code = 2951-2) 138 136-145 [facility] SouthPotassium Ymgeb6926-56-61 07:12:00* Test Item Value Reference Range Interpretation Comments Potassium Level (test code = 2823-3) 3.6 3.5-5.1 [facility] SouthChloride Stuzw0885-57-42 07:12:00* Test Item Value Reference Range Interpretation Comments Chloride Level (test code = 2075-0) 105 98-107 [facility] SouthCarbon Dioxide Blzpe7402-67-59 07:12:00* Test Item Value Reference Range Interpretation Comments Carbon Dioxide Level (test code = 2028-9) 21 22-29 L [facility] SouthAnion Die5305-33-75 07:12:00* Test Item Value Reference Range Interpretation Comments Anion Gap (test code = 49772-0) 15.6 8-16 [facility] SouthBlood Urea Gmqpkclp6097-30-12 07:12:00* Test Item Value Reference Range Interpretation Comments Blood Urea Nitrogen (test code = 3094-0) 32 7-26 H [facility] SouthCreatinine2020-01-26 07:12:00* Test Item Value Reference Range Interpretation Comments Creatinine (test code = 2160-0) 5.68 0.57-1.11 H [facility] SouthBUN/Creatinine Dwnst1089-48-68 07:12:00* Test Item Value Reference Range Interpretation Comments BUN/Creatinine Ratio (test code = 3097-3) 6 6-25 [facility] SouthEstimat Glomerular Filtration Rate 2019-09-23 07:12:00* Test Item Value Reference Range Interpretation Comments Estimat Glomerular Filtration Rate (test code = 648527742) 7 >60 L Ranges were taken from the National Kidney Disease Education Program and the [facility] literature.Reference ranges:60 or greater: Ohubqn98-15 ( for 3 consecutive months): Chronic kidney disease 15 or less: Kidney failureTexas [facility] SouthGlucose Gjdye1223-67-80 07:12:00* Test Item Value Reference Range Interpretation Comments Glucose Level (test code = FRK9725) 108 74-118 [facility] SouthCalcium Nqynq4896-95-98 07:12:00* Test Item Value Reference Range Interpretation Comments Calcium Level (test code = 33130-7) 9.6 8.4-10.2 [facility] SouthTotal Mrenfbfwq2687-97-63 07:12:00* Test Item Value Reference Range Interpretation Comments Total Bilirubin (test code = 1975-2) 0.3 0.2-1.2 [facility] SouthAspartate Amino Transf (AST/SGOT) 2019-09-23 07:12:00* Test Item Value Reference Range Interpretation Comments Aspartate Amino Transf (AST/SGOT) (test code = Aspartate Amino Transf (AST/SGOT)) 12 5-34 [facility] SouthAlanine Aminotransferase (ALT/SGPT) 2019-09-23 07:12:00* Test Item Value Reference Range Interpretation Comments Alanine Aminotransferase (ALT/SGPT) (test code = 1742-6) 11 0-55 [facility] SouthTotal Eccgnnw5801-79-42 07:12:00* Test Item Value Reference Range Interpretation Comments Total Protein (test code = 2885-2) 6.2 6.5-8.1 L [facility] SouthAlbumin2020-01-26 07:12:00* Test Item Value Reference Range Interpretation Comments Albumin (test code = 1751-7) 2.3 3.5-5.0 L [facility] SouthGlobulin2020-01-26 07:12:00* Test Item Value Reference Range Interpretation Comments Globulin (test code = 73136-9) 3.9 2.3-3.5 H [facility] SouthAlbumin/Globulin Jgrvs6163-89-90 07:12:00 * Test Item Value Reference Range Interpretation Comments Albumin/Globulin Ratio (test code = 1759-0) 0.6 0.8-2.0 L [facility] SouthAlkaline Lhgykosqnbr6788-19-67 07:12:00* Test Item Value Reference Range Interpretation Comments Alkaline Phosphatase (test code = 6768-6) 99 40-150 [facility] SouthTriglycerides Gadyg4772-96-75 07:12:00* Test Item Value Reference Range Interpretation Comments Triglycerides Level (test code = 2571-8) 95 0-149 [facility] SouthCholesterol Lcxwo9380-51-43 07:12:00* Test Item Value Reference Range Interpretation Comments Cholesterol Level (test code = 2093-3) 120 0-199 Less than 200 mg/dL Low Blrv859 - 239 mg/dL Borderline Ypzf256 m g/dl and greater High Risk [facility] SouthLDL Hoezhcsynlf9712-99-58 07:12:00* Test Item Value Reference Range Interpretation Comments LDL Cholesterol (test code = 2089-1) 59 60-130 L [facility] SouthHDL Uqflxcyujje9814-39-64 07:12:00* Test Item Value Reference Range Interpretation Comments HDL Cholesterol (test code = 2085-9) 42 40-60 [facility] SouthCholesterol/HDL Lkyxo2825-60-93 07:12:00 * Test Item Value Reference Range Interpretation Comments Cholesterol/HDL Ratio (test code = 9830-1) 2.9 3.0-3.6 L [facility] Centerodium Rqwbr0082-50-28 07:12:00* Test Item Value Reference Range Interpretation Comments Sodium Level (test code = 2951-2) 138 136-145 [facility] SouthPotassium Cdxcu4570-69-86 07:12:00* Test Item Value Reference Range Interpretation Comments Potassium Level (test code = 2823-3) 3.6 3.5-5.1 [facility] SouthChloride Nhjps7882-34-32 07:12:00* Test Item Value Reference Range Interpretation Comments Chloride Level (test code = 2075-0) 105 98-107 [facility] SouthCarbon Dioxide Guubo8199-02-79 07:12:00* Test Item Value Reference Range Interpretation Comments Carbon Dioxide Level (test code = 2028-9) 21 22-29 L [facility] SouthAnion Sho6771-90-82 07:12:00* Test Item Value Reference Range Interpretation Comments Anion Gap (test code = 44189-9) 15.6 8-16 [facility] SouthBlood Urea Goumwzel2412-02-79 07:12:00* Test Item Value Reference Range Interpretation Comments Blood Urea Nitrogen (test code = 3094-0) 32 7-26 H [facility] SouthCreatinine2020-01-26 07:12:00* Test Item Value Reference Range Interpretation Comments Creatinine (test code = 2160-0) 5.68 0.57-1.11 H [facility] SouthBUN/Creatinine Culrq4273-69-55 07:12:00* Test Item Value Reference Range Interpretation Comments BUN/Creatinine Ratio (test code = 3097-3) 6 6-25 [facility] SouthEstimat Glomerular Filtration Rate 2019-09-23 07:12:00* Test Item Value Reference Range Interpretation Comments Estimat Glomerular Filtration Rate (test code = 870520322) 7 >60 L Ranges were taken from the National Kidney Disease Education Program and the [facility] Foundation literature.Reference ranges:60 or greater: Dlyykb77-22 ( for 3 consecutive months): Chronic kidney disease 15 or less: Kidney failureTexas Health [facility] Hospital [facility] SouthGlucose Wggon5547-83-77 07:12:00* Test Item Value Reference Range Interpretation Comments Glucose Level (test code = WKZ0708) 108 74-118 [facility] SouthCalcium Avkgt2714-34-82 07:12:00* Test Item Value Reference Range Interpretation Comments Calcium Level (test code = 55925-1) 9.6 8.4-10.2 [facility] SouthTotal Satkqozdh7924-60-07 07:12:00* Test Item Value Reference Range Interpretation Comments Total Bilirubin (test code = 1975-2) 0.3 0.2-1.2 [facility] SouthAspartate Amino Transf (AST/SGOT) 2019-09-23 07:12:00* Test Item Value Reference Range Interpretation Comments Aspartate Amino Transf (AST/SGOT) (test code = Aspartate Amino Transf (AST/SGOT)) 12 5-34 [facility] SouthAlanine Aminotransferase (ALT/SGPT) 2019-09-23 07:12:00* Test Item Value Reference Range Interpretation Comments Alanine Aminotransferase (ALT/SGPT) (test code = 1742-6) 11 0-55 [facility] SouthTotal Phyftvc6123-18-45 07:12:00* Test Item Value Reference Range Interpretation Comments Total Protein (test code = 2885-2) 6.2 6.5-8.1 L [facility] SouthAlbumin2020-01-26 07:12:00* Test Item Value Reference Range Interpretation Comments Albumin (test code = 1751-7) 2.3 3.5-5.0 L [facility] SouthGlobulin2020-01-26 07:12:00* Test Item Value Reference Range Interpretation Comments Globulin (test code = 69928-5) 3.9 2.3-3.5 H [facility] SouthAlbumin/Globulin Anenl2532-72-95 07:12:00 * Test Item Value Reference Range Interpretation Comments Albumin/Globulin Ratio (test code = 1759-0) 0.6 0.8-2.0 L [facility] SouthAlkaline Vtxcocnfrxl2457-28-95 07:12:00* Test Item Value Reference Range Interpretation Comments Alkaline Phosphatase (test code = 6768-6) 99 40-150 [facility] SouthTriglycerides Zorhk9281-16-03 07:12:00* Test Item Value Reference Range Interpretation Comments Triglycerides Level (test code = 2571-8) 95 0-149 [facility] SouthCholesterol Dunec6664-35-83 07:12:00* Test Item Value Reference Range Interpretation Comments Cholesterol Level (test code = 2093-3) 120 0-199 Less than 200 mg/dL Low Tfxg382 - 239 mg/dL Borderline Obpz344 m g/dl and greater High Risk [facility] SouthLDL Sdrfgurkmtq6841-22-32 07:12:00* Test Item Value Reference Range Interpretation Comments LDL Cholesterol (test code = 2089-1) 59 60-130 L [facility] CenterL Rexnbclusgq0616-68-32 07:12:00* Test Item Value Reference Range Interpretation Comments HDL Cholesterol (test code = 2085-9) 42 40-60 [facility] SouthCholesterol/HDL Hcvgf7524-24-98 07:12:00 * Test Item Value Reference Range Interpretation Comments Cholesterol/HDL Ratio (test code = 9830-1) 2.9 3.0-3.6 L [facility] SouthTriglycerides Qtqlc1411-30-32 07:12:00* Test Item Value Reference Range Interpretation Comments Triglycerides Level (test code = 2571-8) 95 0-149 [facility] SouthCholesterol Fibbx7572-38-67 07:12:00* Test Item Value Reference Range Interpretation Comments Cholesterol Level (test code = 2093-3) 120 0-199 Less than 200 mg/dL Low Obwq654 - 239 mg/dL Borderline Msdp790 m g/dl and greater High Risk [facility] SouthLDL Spnhgfspdpn7751-82-28 07:12:00* Test Item Value Reference Range Interpretation Comments LDL Cholesterol (test code = 2089-1) 59 60-130 L [facility] CenterL Dnujulrahuj2477-02-66 07:12:00* Test Item Value Reference Range Interpretation Comments HDL Cholesterol (test code = 2085-9) 42 40-60 [facility] SouthCholesterol/HDL Hxwrl7515-35-66 07:12:00 * Test Item Value Reference Range Interpretation Comments Cholesterol/HDL Ratio (test code = 9830-1) 2.9 3.0-3.6 L [facility] SouthCreatine Nyshuf2217-98-71 07:10:00* Test Item Value Reference Range Interpretation Comments Creatine Kinase (test code = 2157-6) 82 29-168 [facility] SouthCreatine Kinase ED8426-28-17 07:10:00* Test Item Value Reference Range Interpretation Comments Creatine Kinase MB (test code = 71960-7) 1.50 0-5.0 [facility] SouthTrmusc health [facility] centern E0986-83-78 07:10:00* Test Item Value Reference Range Interpretation Comments Troponin I (test code = EGN7281) 0.007 0-0.300 [facility] SouthCreatine Sqmlin1028-25-65 07:10:00* Test Item Value Reference Range Interpretation Comments Creatine Kinase (test code = 2157-6) 82 29-168 [facility] SouthCreatine Kinase QM0593-26-72 07:10:00* Test Item Value Reference Range Interpretation Comments Creatine Kinase MB (test code = 59659-0) 1.50 0-5.0 [facility] SouthTrglencoe regional health services V9872-25-02 07:10:00* Test Item Value Reference Range Interpretation Comments Troponin I (test code = UQI0059) 0.007 0-0.300 [facility] SouthWhite Blood Rvchc3519-59-48 06:42:00* Test Item Value Reference Range Interpretation Comments White Blood Count (test code = 6690-2) 7.78 4.8-10.8 [facility] SouthRed Blood Xsvmm3988-04-17 06:42:00* Test Item Value Reference Range Interpretation Comments Red Blood Count (test code = 789-8) 4.80 3.6-5.1 [facility] SouthHemoglobin2020-01-26 06:42:00* Test Item Value Reference Range Interpretation Comments Hemoglobin (test code = 84238-9) 13.9 12.0-16.0 [facility] SouthHematocrit2020-01-26 06:42:00* Test Item Value Reference Range Interpretation Comments Hematocrit (test code = 4544-3) 42.5 34.2-44.1 [facility] SouthMean Corpuscular Yqpksa6376-34-91 06:42:00* Test Item Value Reference Range Interpretation Comments Mean Corpuscular Volume (test code = 787-2) 88.5 81-99 [facility] SouthMean Corpuscular Jvluczozdu0028-21-70 06:42:00* Test Item Value Reference Range Interpretation Comments Mean Corpuscular Hemoglobin (test code = 785-6) 29.0 28-32 [facility] SouthMean Corpuscular Hemoglobin Concent 2019-09-23 06:42:00* Test Item Value Reference Range Interpretation Comments Mean Corpuscular Hemoglobin Concent (test code = 786-4) 32.7 31-35 [facility] SouthRed Cell Distribution Yzqnq4545-53-33 06:42:00* Test Item Value Reference Range Interpretation Comments Red Cell Distribution Width (test code = 77799-3) 13.7 11.7 -14.4 [facility] SouthPlatelet Hphrc9603-21-39 06:42:00* Test Item Value Reference Range Interpretation Comments Platelet Count (test code = 777-3) 147 140-360 [facility] SouthNeutrophils (%) (Auto)2019-09-23 06:42:00 * Test Item Value Reference Range Interpretation Comments Neutrophils (%) (Auto) (test code = 18221-3) 72.4 38.7-80.0 [facility] SouthLymphocytes (%) (Auto)2019-09-23 06:42:00 * Test Item Value Reference Range Interpretation Comments Lymphocytes (%) (Auto) (test code = 736-9) 13.4 18.0-39.1 L [facility] SouthMonocytes (%) (Auto)2019-09-23 06:42:00* Test Item Value Reference Range Interpretation Comments Monocytes (%) (Auto) (test code = 5905-5) 10.3 4.4-11.3 [facility] SouthEosinophils (%) (Auto)2019-09-23 06:42:00 * Test Item Value Reference Range Interpretation Comments Eosinophils (%) (Auto) (test code = 713-8) 3.0 0.0-6.0 [facility] SouthBasophils (%) (Auto)2019-09-23 06:42:00* Test Item Value Reference Range Interpretation Comments Basophils (%) (Auto) (test code = 706-2) 0.6 0.0-1.0 [facility] SouthIM GRANULOCYTES %2019-09-23 06:42:00* Test Item Value Reference Range Interpretation Comments IM GRANULOCYTES % (test code = IM GRANULOCYTES %) 0.3 0.0- 1.0 [facility] SouthNeutrophils # (Auto)2019-09-23 06:42:00* Test Item Value Reference Range Interpretation Comments Neutrophils # (Auto) (test code = 751-8) 5.6 2.1-6.9 [facility] SouthLymphocytes # (Auto)2019-09-23 06:42:00* Test Item Value Reference Range Interpretation Comments Lymphocytes # (Auto) (test code = 91748-8) 1.0 1.0-3.2 [facility] SouthMonocytes # (Auto)2019-09-23 06:42:00* Test Item Value Reference Range Interpretation Comments Monocytes # (Auto) (test code = 742-7) 0.8 0.2-0.8 [facility] SouthEosinophils # (Auto)2019-09-23 06:42:00* Test Item Value Reference Range Interpretation Comments Eosinophils # (Auto) (test code = 711-2) 0.2 0.0-0.4 [facility] SouthBasophils # (Auto)2019-09-23 06:42:00* Test Item Value Reference Range Interpretation Comments Basophils # (Auto) (test code = 704-7) 0.1 0.0-0.1 [facility] SouthAbsolute Immature Granulocyte (auto 2019-09-23 06:42:00* Test Item Value Reference Range Interpretation Comments Absolute Immature Granulocyte (auto (karo t code = Absolute Immature Granulocyte (auto) 0.02 0-0.1 [facility] SouthWhite Blood Wjcpm7639-84-85 06:42:00* Test Item Value Reference Range Interpretation Comments White Blood Count (test code = 6690-2) 7.78 4.8-10.8 [facility] SouthRed Blood Onbvi3387-33-96 06:42:00* Test Item Value Reference Range Interpretation Comments Red Blood Count (test code = 789-8) 4.80 3.6-5.1 [facility] SouthHemoglobin2020-01-26 06:42:00* Test Item Value Reference Range Interpretation Comments Hemoglobin (test code = 02051-2) 13.9 12.0-16.0 [facility] SouthHematocrit2020-01-26 06:42:00* Test Item Value Reference Range Interpretation Comments Hematocrit (test code = 4544-3) 42.5 34.2-44.1 [facility] SouthMean Corpuscular Tokxcz9717-50-28 06:42:00* Test Item Value Reference Range Interpretation Comments Mean Corpuscular Volume (test code = 787-2) 88.5 81-99 [facility] SouthMean Corpuscular Plaloswhir3856-48-18 06:42:00* Test Item Value Reference Range Interpretation Comments Mean Corpuscular Hemoglobin (test code = 785-6) 29.0 28-32 [facility] SouthMean Corpuscular Hemoglobin Concent 2019-09-23 06:42:00* Test Item Value Reference Range Interpretation Comments Mean Corpuscular Hemoglobin Concent (test code = 786-4) 32.7 31-35 [facility] SouthRed Cell Distribution Hduav6046-74-05 06:42:00* Test Item Value Reference Range Interpretation Comments Red Cell Distribution Width (test code = 69649-8) 13.7 11.7 -14.4 [facility] SouthPlatelet Vihfz4978-71-55 06:42:00* Test Item Value Reference Range Interpretation Comments Platelet Count (test code = 777-3) 147 140-360 [facility] SouthNeutrophils (%) (Auto)2019-09-23 06:42:00 * Test Item Value Reference Range Interpretation Comments Neutrophils (%) (Auto) (test code = 04206-0) 72.4 38.7-80.0 [facility] SouthLymphocytes (%) (Auto)2019-09-23 06:42:00 * Test Item Value Reference Range Interpretation Comments Lymphocytes (%) (Auto) (test code = 736-9) 13.4 18.0-39.1 L [facility] SouthMonocytes (%) (Auto)2019-09-23 06:42:00* Test Item Value Reference Range Interpretation Comments Monocytes (%) (Auto) (test code = 5905-5) 10.3 4.4-11.3 [facility] SouthEosinophils (%) (Auto)2019-09-23 06:42:00 * Test Item Value Reference Range Interpretation Comments Eosinophils (%) (Auto) (test code = 713-8) 3.0 0.0-6.0 [facility] SouthBasophils (%) (Auto)2019-09-23 06:42:00* Test Item Value Reference Range Interpretation Comments Basophils (%) (Auto) (test code = 706-2) 0.6 0.0-1.0 [facility] SouthIM GRANULOCYTES %2019-09-23 06:42:00* Test Item Value Reference Range Interpretation Comments IM GRANULOCYTES % (test code = IM GRANULOCYTES %) 0.3 0.0- 1.0 [facility] SouthNeutrophils # (Auto)2019-09-23 06:42:00* Test Item Value Reference Range Interpretation Comments Neutrophils # (Auto) (test code = 751-8) 5.6 2.1-6.9 [facility] SouthLymphocytes # (Auto)2019-09-23 06:42:00* Test Item Value Reference Range Interpretation Comments Lymphocytes # (Auto) (test code = 33850-4) 1.0 1.0-3.2 [facility] # (Auto)2019-09-23 06:42:00* Test Item Value Reference Range Interpretation Comments Monocytes # (Auto) (test code = 742-7) 0.8 0.2-0.8 [facility]osinophils # (Auto)2019-09-23 06:42:00* Test Item Value Reference Range Interpretation Comments Eosinophils # (Auto) (test code = 711-2) 0.2 0.0-0.4 [facility] # (Auto)2019-09-23 06:42:00* Test Item Value Reference Range Interpretation Comments Basophils # (Auto) (test code = 704-7) 0.1 0.0-0.1 [facility] SouthAbsolute Immature Granulocyte (auto 2019-09-23 06:42:00* Test Item Value Reference Range Interpretation Comments Absolute Immature Granulocyte (auto (karo t code = Absolute Immature Granulocyte (auto) 0.02 0-0.1 [facility] triglyceride measurement (mass/volume)2019-09-23 04:35:00* Test Item Value Reference Range Interpretation Comments Triglycerides Level (test code = 2571-8) 95 0-149 [facility] cholesterol measurement (mass/volume)2019-09-23 04:35:00* Test Item Value Reference Range Interpretation Comments Cholesterol Level (test code = 2093-3) 120 0-199 Less than 200 mg/dL Low Haqo956 - 239 mg/dL Borderline Rjgx318 m g/dl and greater High Risk [facility] cholesterol in LDL measurement (mass/volume) 2019-09-23 04:35:00* Test Item Value Reference Range Interpretation Comments LDL Cholesterol (test code = 2089-1) 59 60-130 [facility] cholesterol in HDL measurement (mass/volume)2019-09-23 04:35:00* Test Item Value Reference Range Interpretation Comments HDL Cholesterol (test code = 2085-9) 42 40-60 [facility] total cholesterol/cholesterol in HDL mass xkevb5402-47-05 04:35:00* Test Item Value Reference Range Interpretation Comments Cholesterol/HDL Ratio (test code = 9830-1) 2.9 3.0-3.6 [facility] Uzwmt7981-24-72 18:05:00* Test Item Value Reference Range Interpretation Comments Urine Color (test code = 5778-6) YELLOW YELLOW [facility] Xqfnfwj5626-67-18 18:05:00* Test Item Value Reference Range Interpretation Comments Urine Clarity (test code = 50155-3) CLEAR CLEAR [facility] SouthU[facility] Specific Wqmcufs2320-26-57 18:05:00 * Test Item Value Reference Range Interpretation Comments Urine Specific [place] (test code = 5811-5) 1.010 1.010-1.02 5 [facility] [id number] 18:05:00* Test Item Value Reference Range Interpretation Comments Urine pH (test code = 19877-6) 7 5-7 [facility] Leukocyte Nhjwswyg2403-48-42 18:05:00* Test Item Value Reference Range Interpretation Comments Urine Leukocyte Esterase (test code = 5799-2) NEGATIVE NEGATIVE [facility] Baszcko9341-49-85 18:05:00* Test Item Value Reference Range Interpretation Comments Urine Nitrite (test code = 82819-6) NEGATIVE NEGATIVE [facility] SouthU[facility] Duniwdf0115-45-94 18:05:00* Test Item Value Reference Range Interpretation Comments Urine Protein (test code = 5804-0) 1+ NEGATIVE H [facility] Glucose (UA)2019-09-22 18:05:00* Test Item Value Reference Range Interpretation Comments Urine Glucose (UA) (test code = 2349-9) NEGATIVE NEGATIVE [facility] Greskwo2479-48-86 18:05:00* Test Item Value Reference Range Interpretation Comments Urine Ketones (test code = 19639-2) NEGATIVE NEGATIVE [facility] Eocftwlxrxuu0426-08-39 18:05:00* Test Item Value Reference Range Interpretation Comments Urine Urobilinogen (test code = 42873-2) 0.2 0.2-1 [facility] Iylejtyug8728-34-11 18:05:00* Test Item Value Reference Range Interpretation Comments Urine Bilirubin (test code = 1978-6) NEGATIVE NEGATIVE [facility] Xkbwz8790-14-73 18:05:00* Test Item Value Reference Range Interpretation Comments Urine Blood (test code = 22043-8) 1+ NEGATIVE [facility] [id number] 18:05:00* Test Item Value Reference Range Interpretation Comments Urine WBC (test code = 5821-4) 6-10 0-5 H [facility] [id number] 18:05:00* Test Item Value Reference Range Interpretation Comments Urine RBC (test code = 08504-3) 0-5 0-5 [facility] Iuwqlpxr4477-98-79 18:05:00* Test Item Value Reference Range Interpretation Comments Urine Bacteria (test code = 56855-7) RARE NONE [facility] Epithelial Rcsds7921-37-75 18:05:00 * Test Item Value Reference Range Interpretation Comments Urine Epithelial Cells (test code = 86111-9) FEW NONE [facility] Vspoz4293-08-32 18:05:00* Test Item Value Reference Range Interpretation Comments Urine Color (test code = 5778-6) YELLOW YELLOW [facility] Ziavvlx0874-76-65 18:05:00* Test Item Value Reference Range Interpretation Comments Urine Clarity (test code = 05729-2) CLEAR CLEAR [facility] Specific Xajsluc1202-16-05 18:05:00 * Test Item Value Reference Range Interpretation Comments Urine Specific [place] (test code = 5811-5) 1.010 1.010-1.02 5 [facility] [id number] 18:05:00* Test Item Value Reference Range Interpretation Comments Urine pH (test code = 71141-0) 7 5-7 [facility] Leukocyte Zvceqjbj5134-14-29 18:05:00* Test Item Value Reference Range Interpretation Comments Urine Leukocyte Esterase (test code = 5799-2) NEGATIVE NEGATIVE [facility] Fvdwcfw1788-03-76 18:05:00* Test Item Value Reference Range Interpretation Comments Urine Nitrite (test code = 60068-0) NEGATIVE NEGATIVE [facility] Wzgzdjx5345-73-53 18:05:00* Test Item Value Reference Range Interpretation Comments Urine Protein (test code = 5804-0) 1+ NEGATIVE H [facility] Glucose (UA)2019-09-22 18:05:00* Test Item Value Reference Range Interpretation Comments Urine Glucose (UA) (test code = 2349-9) NEGATIVE NEGATIVE [facility] Ngpniad0008-67-83 18:05:00* Test Item Value Reference Range Interpretation Comments Urine Ketones (test code = 39250-4) NEGATIVE NEGATIVE [facility] Ytkidsuhrkwd6197-05-70 18:05:00* Test Item Value Reference Range Interpretation Comments Urine Urobilinogen (test code = 51192-8) 0.2 0.2-1 [facility] Ghcnhhswf6800-81-27 18:05:00* Test Item Value Reference Range Interpretation Comments Urine Bilirubin (test code = 1978-6) NEGATIVE NEGATIVE [facility] Mpspd8692-75-23 18:05:00* Test Item Value Reference Range Interpretation Comments Urine Blood (test code = 92588-0) 1+ NEGATIVE [facility] [id number] 18:05:00* Test Item Value Reference Range Interpretation Comments Urine WBC (test code = 5821-4) 6-10 0-5 H [facility] [id number] 18:05:00* Test Item Value Reference Range Interpretation Comments Urine RBC (test code = 57467-9) 0-5 0-5 [facility] Vulbwucv4660-48-20 18:05:00* Test Item Value Reference Range Interpretation Comments Urine Bacteria (test code = 38323-0) RARE NONE [facility] Epithelial Fvqcf2371-45-50 18:05:00 * Test Item Value Reference Range Interpretation Comments Urine Epithelial Cells (test code = 99168-4) FEW NONE [facility] Dwfrk1518-58-09 18:05:00* Test Item Value Reference Range Interpretation Comments Urine Color (test code = 5778-6) YELLOW YELLOW [facility] Azxsaqo4974-37-66 18:05:00* Test Item Value Reference Range Interpretation Comments Urine Clarity (test code = 53722-3) CLEAR CLEAR [facility] Specific Sgdvzbf1925-58-30 18:05:00 * Test Item Value Reference Range Interpretation Comments Urine Specific [place] (test code = 5811-5) 1.010 1.010-1.02 5 [facility] [id number] 18:05:00* Test Item Value Reference Range Interpretation Comments Urine pH (test code = 89718-6) 7 5-7 [facility] Leukocyte Nyjsvpyj5859-95-37 18:05:00* Test Item Value Reference Range Interpretation Comments Urine Leukocyte Esterase (test code = 5799-2) NEGATIVE NEGATIVE [facility] Ferlyqu7314-96-67 18:05:00* Test Item Value Reference Range Interpretation Comments Urine Nitrite (test code = 67978-9) NEGATIVE NEGATIVE [facility] Tlubcuy1828-17-35 18:05:00* Test Item Value Reference Range Interpretation Comments Urine Protein (test code = 5804-0) 1+ NEGATIVE H [facility] Glucose (UA)2019-09-22 18:05:00* Test Item Value Reference Range Interpretation Comments Urine Glucose (UA) (test code = 2349-9) NEGATIVE NEGATIVE [facility] Ypbpqnh3048-95-44 18:05:00* Test Item Value Reference Range Interpretation Comments Urine Ketones (test code = 48681-3) NEGATIVE NEGATIVE [facility] Azbcesqodanl6162-74-92 18:05:00* Test Item Value Reference Range Interpretation Comments Urine Urobilinogen (test code = 76320-9) 0.2 0.2-1 [facility] Xxtmnfclt5610-06-74 18:05:00* Test Item Value Reference Range Interpretation Comments Urine Bilirubin (test code = 1978-6) NEGATIVE NEGATIVE [facility] Cizyj7960-34-57 18:05:00* Test Item Value Reference Range Interpretation Comments Urine Blood (test code = 60588-4) 1+ NEGATIVE [facility] [id number] 18:05:00* Test Item Value Reference Range Interpretation Comments Urine WBC (test code = 5821-4) 6-10 0-5 H [facility] [id number] 18:05:00* Test Item Value Reference Range Interpretation Comments Urine RBC (test code = 59295-6) 0-5 0-5 [facility] Wpoympkk5676-25-31 18:05:00* Test Item Value Reference Range Interpretation Comments Urine Bacteria (test code = 87300-3) RARE NONE [facility] Epithelial Yyxwx3711-89-62 18:05:00 * Test Item Value Reference Range Interpretation Comments Urine Epithelial Cells (test code = 40299-4) FEW NONE [facility] color pwenufwsgsfkw2982-55-50 16:40:00* Test Item Value Reference Range Interpretation Comments Urine Color (test code = 5778-6) YELLOW YELLOW [facility] jfaznhh6771-38-52 16:40:00* Test Item Value Reference Range Interpretation Comments Urine Clarity (test code = 48887-8) CLEAR CLEAR [facility] by Test strip 2019-09-22 16:40:00* Test Item Value Reference Range Interpretation Comments Urine Specific [place] (test code = 5811-5) 1.010 1.010-1.02 5 [facility] pH measurement by automated test dapkq7237-72-75 16:40:00* Test Item Value Reference Range Interpretation Comments Urine pH (test code = 51130-0) 7 5-7 [facility] leukocyte esterase detection by exkvaqmw8388-79-10 16:40:00* Test Item Value Reference Range Interpretation Comments Urine Leukocyte Esterase (test code = 5799-2) NEGATIVE NEGATIVE [facility] nitrite pwynworen3111-58-17 16:40:00* Test Item Value Reference Range Interpretation Comments Urine Nitrite (test code = 75171-3) NEGATIVE NEGATIVE [facility] protein measurement by test strip (mass/volume)2019-09-22 16:40:00* Test Item Value Reference Range Interpretation Comments Urine Protein (test code = 5804-0) 1+ NEGATIVE [facility] glucose hzjzleitk3136-18-46 16:40:00* Test Item Value Reference Range Interpretation Comments Urine Glucose (UA) (test code = 2349-9) NEGATIVE NEGATIVE [facility] ketones detection by automated test mycii7612-07-06 16:40:00* Test Item Value Reference Range Interpretation Comments Urine Ketones (test code = 45147-0) NEGATIVE NEGATIVE [facility] urobilinogen measurement by test strip (mass/volume)2019-09-22 16:40:00* Test Item Value Reference Range Interpretation Comments Urine Urobilinogen (test code = 00196-3) 0.2 0.2-1 [facility] total bilirubin measurement (mass/volume)2019-09-22 16:40:00* Test Item Value Reference Range Interpretation Comments Urine Bilirubin (test code = 1978-6) NEGATIVE NEGATIVE [facility] erythrocytes txjedmhyt5751-97-00 16:40:00* Test Item Value Reference Range Interpretation Comments Urine Blood (test code = 61401-0) 1+ NEGATIVE [facility] SouthAutomated urine sediment leukocyte count by microscopy (number/high power field)2019-09-22 16:40:00* Test Item Value Reference Range Interpretation Comments Urine WBC (test code = 5821-4) 6-10 0-5 [facility] SouthErythrocytes detection in urine sediment by light mtpljmbwly5689-11-93 16:40:00* Test Item Value Reference Range Interpretation Comments Urine RBC (test code = 11916-9) 0-5 0-5 [facility] SouthBacteria detection in urine sediment by light mcxtylwfle3743-70-53 16:40:00* Test Item Value Reference Range Interpretation Comments Urine Bacteria (test code = 65336-2) RARE NONE [facility] SouthEpithelial cells detection in urine sediment by light mhdsxgjbpp4975-20-30 16:40:00* Test Item Value Reference Range Interpretation Comments Urine Epithelial Cells (test code = 57088-1) FEW NONE [facility] color hccfofzjfczrm6483-33-40 16:40:00* Test Item Value Reference Range Interpretation Comments Urine Color (test code = 5778-6) YELLOW YELLOW [facility] kuxgtlf4518-79-37 16:40:00* Test Item Value Reference Range Interpretation Comments Urine Clarity (test code = 46653-6) CLEAR CLEAR [facility] by Test strip 2019-09-22 16:40:00* Test Item Value Reference Range Interpretation Comments Urine Specific [place] (test code = 5811-5) 1.010 1.010-1.02 5 [facility] pH measurement by automated test tqtpp7556-86-54 16:40:00* Test Item Value Reference Range Interpretation Comments Urine pH (test code = 88308-6) 7 5-7 [facility] leukocyte esterase detection by zpvywnbm8202-07-46 16:40:00* Test Item Value Reference Range Interpretation Comments Urine Leukocyte Esterase (test code = 5799-2) NEGATIVE NEGATIVE [facility] nitrite jzkypwiuu3367-22-00 16:40:00* Test Item Value Reference Range Interpretation Comments Urine Nitrite (test code = 37570-4) NEGATIVE NEGATIVE [facility] protein measurement by test strip (mass/volume)2019-09-22 16:40:00* Test Item Value Reference Range Interpretation Comments Urine Protein (test code = 5804-0) 1+ NEGATIVE [facility] glucose ckixdtkwg1370-85-09 16:40:00* Test Item Value Reference Range Interpretation Comments Urine Glucose (UA) (test code = 2349-9) NEGATIVE NEGATIVE [facility] ketones detection by automated test vcidn4411-87-76 16:40:00* Test Item Value Reference Range Interpretation Comments Urine Ketones (test code = 41834-9) NEGATIVE NEGATIVE [facility] South[facility] urobilinogen measurement by test strip (mass/volume)2019-09-22 16:40:00* Test Item Value Reference Range Interpretation Comments Urine Urobilinogen (test code = 38725-1) 0.2 0.2-1 [facility] total bilirubin measurement (mass/volume)2019-09-22 16:40:00* Test Item Value Reference Range Interpretation Comments Urine Bilirubin (test code = 1978-6) NEGATIVE NEGATIVE [facility] erythrocytes ntgzqfhlc5170-95-47 16:40:00* Test Item Value Reference Range Interpretation Comments Urine Blood (test code = 28335-1) 1+ NEGATIVE [facility] SouthAutomated urine sediment leukocyte count by microscopy (number/high power field)2019-09-22 16:40:00* Test Item Value Reference Range Interpretation Comments Urine WBC (test code = 5821-4) 6-10 0-5 [facility] SouthErythrocytes detection in urine sediment by light wvrehplidj3737-65-23 16:40:00* Test Item Value Reference Range Interpretation Comments Urine RBC (test code = 35721-5) 0-5 0-5 [facility] SouthBacteria detection in urine sediment by light sehlhnyhfd4546-76-39 16:40:00* Test Item Value Reference Range Interpretation Comments Urine Bacteria (test code = 09884-3) RARE NONE [facility] SouthEpithelial cells detection in urine sediment by light nsdgypzalt0204-66-45 16:40:00* Test Item Value Reference Range Interpretation Comments Urine Epithelial Cells (test code = 22161-8) FEW NONE [facility] SouthU[facility] color nyyjardrchkzi5196-46-68 16:40:00* Test Item Value Reference Range Interpretation Comments Urine Color (test code = 5778-6) YELLOW YELLOW [facility] drzrqsn9118-19-23 16:40:00* Test Item Value Reference Range Interpretation Comments Urine Clarity (test code = 36752-7) CLEAR CLEAR [facility]pecific [facility] Urine by Test strip 2019-09-22 16:40:00* Test Item Value Reference Range Interpretation Comments Urine Specific [place] (test code = 5811-5) 1.010 1.010-1.02 5 [facility] pH measurement by automated test qbmst6155-08-54 16:40:00* Test Item Value Reference Range Interpretation Comments Urine pH (test code = 80403-0) 7 5-7 [facility] leukocyte esterase detection by ymqdaxuj3185-68-55 16:40:00* Test Item Value Reference Range Interpretation Comments Urine Leukocyte Esterase (test code = 5799-2) NEGATIVE NEGATIVE [facility] nitrite ftowaejaj2050-29-74 16:40:00* Test Item Value Reference Range Interpretation Comments Urine Nitrite (test code = 27252-6) NEGATIVE NEGATIVE [facility] protein measurement by test strip (mass/volume)2019-09-22 16:40:00* Test Item Value Reference Range Interpretation Comments Urine Protein (test code = 5804-0) 1+ NEGATIVE [facility] glucose mftbpalav9460-38-94 16:40:00* Test Item Value Reference Range Interpretation Comments Urine Glucose (UA) (test code = 2349-9) NEGATIVE NEGATIVE [facility] SouthU[facility] ketones detection by automated test vxhjb5718-86-86 16:40:00* Test Item Value Reference Range Interpretation Comments Urine Ketones (test code = 51475-3) NEGATIVE NEGATIVE [facility] SouthU[facility] urobilinogen measurement by test strip (mass/volume)2019-09-22 16:40:00* Test Item Value Reference Range Interpretation Comments Urine Urobilinogen (test code = 17610-6) 0.2 0.2-1 [facility] total bilirubin measurement (mass/volume)2019-09-22 16:40:00* Test Item Value Reference Range Interpretation Comments Urine Bilirubin (test code = 1978-6) NEGATIVE NEGATIVE [facility] erythrocytes mhqqytcop8459-43-96 16:40:00* Test Item Value Reference Range Interpretation Comments Urine Blood (test code = 09604-2) 1+ NEGATIVE [facility] SouthAutomated urine sediment leukocyte count by microscopy (number/high power field)2019-09-22 16:40:00* Test Item Value Reference Range Interpretation Comments Urine WBC (test code = 5821-4) 6-10 0-5 [facility] SouthErythrocytes detection in urine sediment by light uveaewocnu3042-17-26 16:40:00* Test Item Value Reference Range Interpretation Comments Urine RBC (test code = 25265-2) 0-5 0-5 [facility] SouthBacteria detection in urine sediment by light rpitvgvofu8525-10-69 16:40:00* Test Item Value Reference Range Interpretation Comments Urine Bacteria (test code = 53929-9) RARE NONE [facility] SouthEpithelial cells detection in urine sediment by light fsqprrmeqg7480-04-34 16:40:00* Test Item Value Reference Range Interpretation Comments Urine Epithelial Cells (test code = 82123-8) FEW NONE [facility] SouthMRI BRAIN [id number] 16:23:00 [facility] [address] [address] Patient Name: MIGUEL FONTENOT MR #: [id number] : 07/1935 Age/Sex: 84/F Req #: [id number] Adm Physician: RODNEY ROSADO MD Ordered by: ERICKA GREENE MD Report #: [id number] Location: MED/SURG2 Room/Bed: [facility] Procedure: 0125-00 03 MRI/MRI BRAIN WO Exam [...] ERICKA GREENE MD CHEST SINGLE (PORTABLE)2019-09-22 13:34:00 [address] [address] Patient Name: MIGUEL FONTENOT MR #: [id number] : 1935 Age/Sex: 84/F Req #: [id number] Adm Physician: Ordered by: [employer] Report #: [id number] Location: ER Room/Bed: Procedure: 0125-0 021 DX/CHEST [...] YAQUELIN on 09/22/191335 COPY TO: [employer] Prothrombin Time 2019-09-22 13:06:00* Test Item Value Reference Range Interpretation Comments Prothrombin Time (test code = 5902-2) 14.0 11.9-14.5 [facility] SouthProthromb Time International Ratio 2019-09-22 13:06:00* Test Item Value Reference Range Interpretation Comments Prothromb Time International Ratio (test code = 6301-6) 1.03 Oral Anticoagulant Therapy INR Values:1. Low Intensity Therapy 1.5 - 2.02 . Moderate Intensity Therapy 2.0 - 3.03. High Intensity Therapy(1) 2.5 - 3. 54. High Intensity Therapy(2) 3.0 - 4.05. Panic Value INR > 5.0 [facility] SouthAct[facility] Partial Thromboplast Time 2019-09-22 13:06:00* Test Item Value Reference Range Interpretation Comments Activated Partial Thromboplast Time (test code = 53657-3) 35.5 23.8-35.5 [facility] SouthProthrombin Hzsp8611-63-60 13:06:00* Test Item Value Reference Range Interpretation Comments Prothrombin Time (test code = 5902-2) 14.0 11.9-14.5 [facility] SouthProthromb Time International Ratio 2019-09-22 13:06:00* Test Item Value Reference Range Interpretation Comments Prothromb Time International Ratio (test code = 6301-6) 1.03 Oral Anticoagulant Therapy INR Values:1. Low Intensity Therapy 1.5 - 2.02 . Moderate Intensity Therapy 2.0 - 3.03. High Intensity Therapy(1) 2.5 - 3. 54. High Intensity Therapy(2) 3.0 - 4.05. Panic Value INR > 5.0 [facility] SouthAct[facility] Partial Thromboplast Time 2019-09-22 13:06:00* Test Item Value Reference Range Interpretation Comments Activated Partial Thromboplast Time (test code = 42567-2) 35.5 23.8-35.5 [facility] SouthCT BRAIN [id number] 12:42:00 [facility] [address] [address] Patient Name: MIGUEL FONTENOT MR #: [id number] : 07/1935 Age/Sex: 84/F Req #: [id number] Adm Physician: Ordered by: LOY SO PLANT SAFETY ENGINEER Report #: [id number] Location: ER Room/Bed: Procedure: 0125-[address]/CT [...] intraocular lens replacement for previous cataract haylie donalod. Atherosclerotic calcifications in the carotid siphons and [...] 1246 COPY TO: LOY SO NP Blood Qdwxadn3800-96-88 17:23:00* Test Item Value Reference Range Interpretation Comments Blood Culture (test code = 90630414) NO GROWTH AFTER 72 HOURS [facility] OKCLCVEI0867-58-15 19:38:00 [facility] [address] [address] Patient Name: MIGUEL FONTENOT MR #: [id number] : 07/1935 Age/Sex: 83/F Req #: [id number] Adm Physician: RODNEY ROSADO MD Ordered by: RODNEY ROSADO MD Report #: [id number] Location: MED/SURG3 Room/Bed: [facility] Procedure: 0318- 0062 DX/FOOT RIGHT [...] 11/13/181943 COPY TO: RODNEY ROSADO MD Uric Cxhe3339-98-37 18:28:00* Test Item Value Reference Range Interpretation Comments Uric Acid (test code = 3084-1) 6.3 2.6-8.0 [facility] Giewt4452-78-21 06:42:00* Test Item Value Reference Range Interpretation Comments Sodium Level (test code = 2951-2) 142 136-145 [facility] SouthPotassium Xbysi5489-10-44 06:42:00* Test Item Value Reference Range Interpretation Comments Potassium Level (test code = 2823-3) 3.9 3.5-5.1 [facility] SouthChloride Wywhy0875-67-25 06:42:00* Test Item Value Reference Range Interpretation Comments Chloride Level (test code = 2075-0) 108 98-107 H [facility] SouthCarbon Dioxide Vtehw1394-93-71 06:42:00* Test Item Value Reference Range Interpretation Comments Carbon Dioxide Level (test code = 2028-9) 26 22-29 [facility] SouthAnion Sui0416-13-62 06:42:00* Test Item Value Reference Range Interpretation Comments Anion Gap (test code = 10420-1) 11.9 8-16 [facility] SouthBlood Urea Fvbjxlme3975-02-00 06:42:00* Test Item Value Reference Range Interpretation Comments Blood Urea Nitrogen (test code = 3094-0) 24 7-26 [facility] SouthCreatinine2019-03-18 06:42:00* Test Item Value Reference Range Interpretation Comments Creatinine (test code = 2160-0) 5.30 0.57-1.11 H [facility] SouthBUN/Creatinine Eeenx5945-12-36 06:42:00* Test Item Value Reference Range Interpretation Comments BUN/Creatinine Ratio (test code = 3097-3) 5 6-25 L [facility] SouthEstimat Glomerular Filtration Rate 2018-11-13 06:42:00* Test Item Value Reference Range Interpretation Comments Estimat Glomerular Filtration Rate (test code = 082260520) 8 >60 L Ranges were taken from the National Kidney Disease Education Program and the [facility] Foundation literature.Reference ranges:60 or greater: Ceqyzn23-49 ( for 3 consecutive months): Chronic kidney disease 15 or less: Kidney failureTexas [facility] SouthGlucose Vtqos4479-61-02 06:42:00* Test Item Value Reference Range Interpretation Comments Glucose Level (test code = UZE1911) 104 74-118 [facility] SouthCalcium Athmt4421-52-05 06:42:00* Test Item Value Reference Range Interpretation Comments Calcium Level (test code = 34511-8) 7.9 8.4-10.2 L [facility] SouthWhite Blood Pebdn2153-60-35 06:30:00* Test Item Value Reference Range Interpretation Comments White Blood Count (test code = 6690-2) 5.78 4.8-10.8 [facility] SouthRed Blood Cekuw9370-15-08 06:30:00* Test Item Value Reference Range Interpretation Comments Red Blood Count (test code = 789-8) 4.09 3.6-5.1 [facility] SouthHemoglobin2019-03-18 06:30:00* Test Item Value Reference Range Interpretation Comments Hemoglobin (test code = 47340-3) 11.8 12.0-16.0 L [facility] SouthHematocrit2019-03-18 06:30:00* Test Item Value Reference Range Interpretation Comments Hematocrit (test code = 4544-3) 38.5 34.2-44.1 [facility] SouthMean Corpuscular Bitdqm6033-84-12 06:30:00* Test Item Value Reference Range Interpretation Comments Mean Corpuscular Volume (test code = 787-2) 94.1 81-99 [facility] SouthMean Corpuscular Piojaokxkd1851-78-96 06:30:00* Test Item Value Reference Range Interpretation Comments Mean Corpuscular Hemoglobin (test code = 785-6) 28.9 28-32 [facility] SouthMean Corpuscular Hemoglobin Concent 2018-11-13 06:30:00* Test Item Value Reference Range Interpretation Comments Mean Corpuscular Hemoglobin Concent (test code = 786-4) 30.6 31-35 L [facility] SouthRed Cell Distribution Idfxs1347-79-73 06:30:00* Test Item Value Reference Range Interpretation Comments Red Cell Distribution Width (test code = 71309-2) 17.5 11.7 -14.4 H [facility] SouthPlatelet Khzgu5791-76-55 06:30:00* Test Item Value Reference Range Interpretation Comments Platelet Count (test code = 777-3) 144 140-360 [facility] SouthNeutrophils (%) (Auto)2018-11-13 06:30:00 * Test Item Value Reference Range Interpretation Comments Neutrophils (%) (Auto) (test code = 77214-0) 63.9 38.7-80.0 [facility] SouthLymphocytes (%) (Auto)2018-11-13 06:30:00 * Test Item Value Reference Range Interpretation Comments Lymphocytes (%) (Auto) (test code = 736-9) 19.9 18.0-39.1 [facility] SouthMonocytes (%) (Auto)2018-11-13 06:30:00* Test Item Value Reference Range Interpretation Comments Monocytes (%) (Auto) (test code = 5905-5) 9.3 4.4-11.3 [facility] SouthEosinophils (%) (Auto)2018-11-13 06:30:00 * Test Item Value Reference Range Interpretation Comments Eosinophils (%) (Auto) (test code = 713-8) 6.1 0.0-6.0 H [facility] SouthBasophils (%) (Auto)2018-11-13 06:30:00* Test Item Value Reference Range Interpretation Comments Basophils (%) (Auto) (test code = 706-2) 0.5 0.0-1.0 [facility] SouthIM GRANULOCYTES %2018-11-13 06:30:00* Test Item Value Reference Range Interpretation Comments IM GRANULOCYTES % (test code = IM GRANULOCYTES %) 0.3 0.0- 1.0 [facility] SouthNeutrophils # (Auto)2018-11-13 06:30:00* Test Item Value Reference Range Interpretation Comments Neutrophils # (Auto) (test code = 751-8) 3.7 2.1-6.9 [facility] SouthLymphocytes # (Auto)2018-11-13 06:30:00* Test Item Value Reference Range Interpretation Comments Lymphocytes # (Auto) (test code = 26532-9) 1.2 1.0-3.2 [facility] SouthMonocytes # (Auto)2018-11-13 06:30:00* Test Item Value Reference Range Interpretation Comments Monocytes # (Auto) (test code = 742-7) 0.5 0.2-0.8 [facility] SouthEosinophils # (Auto)2018-11-13 06:30:00* Test Item Value Reference Range Interpretation Comments Eosinophils # (Auto) (test code = 711-2) 0.4 0.0-0.4 [facility] SouthBasophils # (Auto)2018-11-13 06:30:00* Test Item Value Reference Range Interpretation Comments Basophils # (Auto) (test code = 704-7) 0.0 0.0-0.1 [facility] SouthAbsolute Immature Granulocyte (auto 2018-11-13 06:30:00* Test Item Value Reference Range Interpretation Comments Absolute Immature Granulocyte (auto (karo t code = Absolute Immature Granulocyte (auto) 0.02 0-0.1 [facility] SouthTotal Nluovxnol9890-63-74 16:40:00* Test Item Value Reference Range Interpretation Comments Total Bilirubin (test code = 1975-2) 0.3 0.2-1.2 [facility] SouthAspartate Amino Transf (AST/SGOT) 2018-11-12 16:40:00* Test Item Value Reference Range Interpretation Comments Aspartate Amino Transf (AST/SGOT) (test code = Aspartate Amino Transf (AST/SGOT)) 16 5-34 [facility] SouthAlanine Aminotransferase (ALT/SGPT) 2018-11-12 16:40:00* Test Item Value Reference Range Interpretation Comments Alanine Aminotransferase (ALT/SGPT) (test code = 1742-6) 9 0-55 [facility] SouthTotal Xuaufir2979-12-83 16:40:00* Test Item Value Reference Range Interpretation Comments Total Protein (test code = 2885-2) 7.0 6.5-8.1 [facility] SouthAlbumin2019-03-17 16:40:00* Test Item Value Reference Range Interpretation Comments Albumin (test code = 1751-7) 2.3 3.5-5.0 L [facility] SouthGlobulin2019-03-17 16:40:00* Test Item Value Reference Range Interpretation Comments Globulin (test code = 06632-4) 4.7 2.3-3.5 H [facility] SouthAlbumin/Globulin Begqr0254-52-55 16:40:00 * Test Item Value Reference Range Interpretation Comments Albumin/Globulin Ratio (test code = 1759-0) 0.5 0.8-2.0 L [facility] SouthAlkaline Mcfcfbqeifo9842-60-85 16:40:00* Test Item Value Reference Range Interpretation Comments Alkaline Phosphatase (test code = 6768-6) 75 40-150 [facility] Centerodium Zdhmm5544-90-30 09:12:00* Test Item Value Reference Range Interpretation Comments Sodium Level (test code = 2951-2) 135 136-145 L [facility] SouthPotassium Ahtbq6455-56-21 09:12:00* Test Item Value Reference Range Interpretation Comments Potassium Level (test code = 2823-3) 4.9 3.5-5.1 [facility] SouthChloride Oajuz0500-01-98 09:12:00* Test Item Value Reference Range Interpretation Comments Chloride Level (test code = 2075-0) 104 98-107 [facility] SouthCarbon Dioxide Aeutj7357-61-99 09:12:00* Test Item Value Reference Range Interpretation Comments Carbon Dioxide Level (test code = 2028-9) 23 22-29 [facility] SouthAnion Ueb8750-93-91 09:12:00* Test Item Value Reference Range Interpretation Comments Anion Gap (test code = 23675-0) 12.9 8-16 [facility] SouthBlood Urea Yfucukob4197-62-38 09:12:00* Test Item Value Reference Range Interpretation Comments Blood Urea Nitrogen (test code = 3094-0) 55 7-26 H [facility] SouthCreatinine2019-01-03 09:12:00* Test Item Value Reference Range Interpretation Comments Creatinine (test code = 2160-0) 6.32 0.57-1.11 H [facility] SouthBUN/Creatinine Etjfj7101-55-42 09:12:00* Test Item Value Reference Range Interpretation Comments BUN/Creatinine Ratio (test code = 3097-3) 9 6-25 [facility] SouthEstimat Glomerular Filtration Rate 2018-08-31 09:12:00* Test Item Value Reference Range Interpretation Comments Estimat Glomerular Filtration Rate (test code = 738155450) 6 >60 L Ranges were taken from the National Kidney Disease Education Program and the [facility] Kidney Foundation literature.Reference ranges:60 or greater: Rgqhuk59-84 ( for 3 consecutive months): Chronic kidney disease 15 or less: Kidney failureTexas Health [facility] Hospital [facility] SouthGlucose Stuap7267-68-64 09:12:00* Test Item Value Reference Range Interpretation Comments Glucose Level (test code = FDI0624) 108 74-118 [facility] SouthCalcium Jyzae8684-18-37 09:12:00* Test Item Value Reference Range Interpretation Comments Calcium Level (test code = 41704-0) 10.1 8.4-10.2 [facility] SouthWhite Blood Egfef7609-81-15 08:38:00* Test Item Value Reference Range Interpretation Comments White Blood Count (test code = 6690-2) 8.05 4.8-10.8 [facility] SouthRed Blood Hrnck0794-76-38 08:38:00* Test Item Value Reference Range Interpretation Comments Red Blood Count (test code = 789-8) 3.30 3.6-5.1 L [facility] SouthHemoglobin2019-01-03 08:38:00* Test Item Value Reference Range Interpretation Comments Hemoglobin (test code = 30941-4) 9.1 12.0-16.0 L [facility] SouthHematocrit2019-01-03 08:38:00* Test Item Value Reference Range Interpretation Comments Hematocrit (test code = 4544-3) 27.7 34.2-44.1 L [facility] SouthMean Corpuscular Nlvsen4316-94-04 08:38:00* Test Item Value Reference Range Interpretation Comments Mean Corpuscular Volume (test code = 787-2) 83.9 81-99 [facility] SouthMean Corpuscular Sosvbjzknx0886-46-97 08:38:00* Test Item Value Reference Range Interpretation Comments Mean Corpuscular Hemoglobin (test code = 785-6) 27.6 28-32 L [facility] SouthMean Corpuscular Hemoglobin Concent 2018-08-31 08:38:00* Test Item Value Reference Range Interpretation Comments Mean Corpuscular Hemoglobin Concent (test code = 786-4) 32.9 31-35 [facility] SouthRed Cell Distribution Vgfjz1715-81-62 08:38:00* Test Item Value Reference Range Interpretation Comments Red Cell Distribution Width (test code = 10253-3) 14.7 11.7 -14.4 H [facility] SouthPlatelet Gntgj2889-11-34 08:38:00* Test Item Value Reference Range Interpretation Comments Platelet Count (test code = 777-3) 105 140-360 L [facility] SouthNeutrophils (%) (Auto)2018-08-31 08:38:00 * Test Item Value Reference Range Interpretation Comments Neutrophils (%) (Auto) (test code = 30591-2) 72.3 38.7-80.0 [facility] SouthLymphocytes (%) (Auto)2018-08-31 08:38:00 * Test Item Value Reference Range Interpretation Comments Lymphocytes (%) (Auto) (test code = 736-9) 16.6 18.0-39.1 L [facility] SouthMonocytes (%) (Auto)2018-08-31 08:38:00* Test Item Value Reference Range Interpretation Comments Monocytes (%) (Auto) (test code = 5905-5) 6.7 4.4-11.3 [facility] SouthEosinophils (%) (Auto)2018-08-31 08:38:00 * Test Item Value Reference Range Interpretation Comments Eosinophils (%) (Auto) (test code = 713-8) 3.2 0.0-6.0 [facility] SouthBasophils (%) (Auto)2018-08-31 08:38:00* Test Item Value Reference Range Interpretation Comments Basophils (%) (Auto) (test code = 706-2) 0.7 0.0-1.0 [facility] SouthIM GRANULOCYTES %2018-08-31 08:38:00* Test Item Value Reference Range Interpretation Comments IM GRANULOCYTES % (test code = IM GRANULOCYTES %) 0.5 0.0- 1.0 [facility] SouthNeutrophils # (Auto)2018-08-31 08:38:00* Test Item Value Reference Range Interpretation Comments Neutrophils # (Auto) (test code = 751-8) 5.8 2.1-6.9 [facility] SouthLymphocytes # (Auto)2018-08-31 08:38:00* Test Item Value Reference Range Interpretation Comments Lymphocytes # (Auto) (test code = 42795-8) 1.3 1.0-3.2 [facility] SouthMonocytes # (Auto)2018-08-31 08:38:00* Test Item Value Reference Range Interpretation Comments Monocytes # (Auto) (test code = 742-7) 0.5 0.2-0.8 [facility] SouthEosinophils # (Auto)2018-08-31 08:38:00* Test Item Value Reference Range Interpretation Comments Eosinophils # (Auto) (test code = 711-2) 0.3 0.0-0.4 [facility] SouthBasophils # (Auto)2018-08-31 08:38:00* Test Item Value Reference Range Interpretation Comments Basophils # (Auto) (test code = 704-7) 0.1 0.0-0.1 [facility] SouthAbsolute Immature Granulocyte (auto 2018-08-31 08:38:00* Test Item Value Reference Range Interpretation Comments Absolute Immature Granulocyte (auto (karo t code = Absolute Immature Granulocyte (auto) 0.04 0-0.1 [facility] SouthHesan [facility] B Surface Antibody, Quant 2018-08-29 08:17:00* Test Item Value Reference Range Interpretation Comments Hepatitis B Surface Antibody, Quant (test code = 5194-6) 863.2 Status of Immunity Anti-HBs Level Inconsistent with Immunity 0.0 - 9.9Consistent with Immunity >9.9[facility] B Core Total Serztfpx9229-44-28 08:17:00* Test Item Value Reference Range Interpretation Comments Hepatitis B Core Total Antibody (test code = 69467-9) Negative [facility] B Surface Sgtxury8351-19-23 08:17:00* Test Item Value Reference Range Interpretation Comments Hepatitis B Surface Antigen (test code = 5196-1) Negative [facility] B Core IgM Aotxlaqn4294-61-29 08:17:00* Test Item Value Reference Range Interpretation Comments Hepatitis B Core IgM Antibody (test code = 98165-0) Negative [facility] B Surface Antibody, Quant 2018-08-29 08:17:00* Test Item Value Reference Range Interpretation Comments Hepatitis B Surface Antibody, Quant (test code = 5194-6) 863.2 Status of Immunity Anti-HBs Level Inconsistent with Immunity 0.0 - 9.9Consistent with Immunity >9.9[facility] B Core Total Mynombvl5268-77-80 08:17:00* Test Item Value Reference Range Interpretation Comments Hepatitis B Core Total Antibody (test code = 19277-3) Negative [facility] B Surface Rbleafl5786-54-97 08:17:00* Test Item Value Reference Range Interpretation Comments Hepatitis B Surface Antigen (test code = 5196-1) Negative [facility] B Core IgM Xfrylqle8410-62-20 08:17:00* Test Item Value Reference Range Interpretation Comments Hepatitis B Core IgM Antibody (test code = 50195-3) Negative [facility] SouthTotal Ubnwvhgsm2325-61-95 07:47:00* Test Item Value Reference Range Interpretation Comments Total Bilirubin (test code = 1975-2) 0.9 0.2-1.2 [facility] SouthAspartate Amino Transf (AST/SGOT) 2018-08-26 07:47:00* Test Item Value Reference Range Interpretation Comments Aspartate Amino Transf (AST/SGOT) (test code = Aspartate Amino Transf (AST/SGOT)) 21 5-34 [facility] SouthAlanine Aminotransferase (ALT/SGPT) 2018-08-26 07:47:00* Test Item Value Reference Range Interpretation Comments Alanine Aminotransferase (ALT/SGPT) (test code = 1742-6) 15 0-55 [facility] SouthTotal Ceizxoz9314-40-76 07:47:00* Test Item Value Reference Range Interpretation Comments Total Protein (test code = 2885-2) 5.8 6.5-8.1 L [facility] SouthAlbumin2018-12-29 07:47:00* Test Item Value Reference Range Interpretation Comments Albumin (test code = 1751-7) 2.6 3.5-5.0 L [facility] SouthGlobulin2018-12-29 07:47:00* Test Item Value Reference Range Interpretation Comments Globulin (test code = 30756-1) 3.2 2.3-3.5 [facility] SouthAlbumin/Globulin Aazdh8879-15-92 07:47:00 * Test Item Value Reference Range Interpretation Comments Albumin/Globulin Ratio (test code = 1759-0) 0.8 0.8-2.0 [facility] SouthAlkaline Pzbimahrrja7394-61-25 07:47:00* Test Item Value Reference Range Interpretation Comments Alkaline Phosphatase (test code = 6768-6) 67 40-150 [facility]PE[facility] WMA8825-17-48 16:21:[address] [address] Patient Name: MIGUEL FONTENOT MR #: [id number] : 1935 Age/Sex: 83/F Req #: [id number] Adm Physician: RODNEY ROSADO MD Ordered by: ABRAM WADDELL, KAMI WADDELL Report #: [id number] Location: [facility] Room[facility]Bed: [facility] Procedure: 1226-0 005 IR/SPECIAL PROCEDURE IN HOME DESIGNER Exam Date: Time: REPORT STATUS: Signed ADDENDUM #1 Addendum: The right internal jugular vein is patent. Ultrasound was utilized for vascular access. A permanent image wa s saved to the medical record. Procedure performed using maximal sterile ba rrier technique. Signed by: Dr. Clifton Friedman DO on 09/04/2018 10:23 AM ORIGINAL REPORT Procedure: Tunneled hemodialysis catheter p lacement dated 08/23/2018. Developer Automatic: None. Medications: Versed 2 mg i ntravenous, [...] tract was serially di lated. Finally, a 16.5-Bruneian peel-away sheath was advanced over the wire und er fluoroscopic guidance. A 16 Bruneian Bard 23 cm tip to cuff split tip cathet er was then advanced through the peel-away sheath. This was noted to be too lo ng. At this point 2 Amplatz superstiff wires were then placed through the two lumens and a new 16 Bruneian Bard split tip 19 cm long tip [...] of a tunneled dual-lumen hemodi alysis catheter (16-Bruneian Bard split tip, 19-cm tip-cuff length) by a right i nternal jugular approach. The catheter is OK for immediate use. Signed b y: Dr. Clifton Friedman DO on 08/24/2018 4:30 PM Dictated By: CLIFTON FRIEDMAN DO 1023 Transcribed By: YAQUELIN on 08/31/18 1348 COPY TO: KAMI VALVERDE SINGLE (PORTABLE)2018-08-23 15:15:00 [address] [address] Patient Name: MIGUEL FONTENOT MR #: [id number] : 1935 Age/Sex: 83/F Req #: [id number] Adm Physician: RODNEY ROSADO MD Ordered by: RODNEY ROSADO MD Report #: [id number] Location: [facility] Room/Bed: [address] [address] Procedure: 1226- 0061 DX/CHEST SINGLE (PORTABLE) Exam Date: 08/23/18 Exam Time: 1435 REPORT STATUS: Sign ed PROCEDURE: CHEST SINGLE (PORTABLE) COMPARISON: [facility], DX, CHEST SINGLE (PORTABLE), 05/20/2018, 6:04. [...] 1515 COPY TO: RODNEY ROSADO MD Prothrombin Vmki8491-01-59 05:30:00* Test Item Value Reference Range Interpretation Comments Prothrombin Time (test code = 5902-2) 13.7 11.9-14.5 [facility] SouthProthromb Time International Ratio 2018-08-23 05:30:00* Test Item Value Reference Range Interpretation Comments Prothromb Time International Ratio (test code = 6301-6) 0.96 Oral Anticoagulant Therapy INR Values:1. Low Intensity Therapy 1.5 - 2.02 . Moderate Intensity Therapy 2.0 - 3.03. High Intensity Therapy(1) 2.5 - 3. 54. High Intensity Therapy(2) 3.0 - 4.05. Panic Value INR > 5.0 [facility] SouthProthrombin Itay6301-40-19 05:30:00* Test Item Value Reference Range Interpretation Comments Prothrombin Time (test code = 5902-2) 13.7 11.9-14.5 [facility] SouthProthromb Time International Ratio 2018-08-23 05:30:00* Test Item Value Reference Range Interpretation Comments Prothromb Time International Ratio (test code = 6301-6) 0.96 Oral Anticoagulant Therapy INR Values:1. Low Intensity Therapy 1.5 - 2.02 . Moderate Intensity Therapy 2.0 - 3.03. High Intensity Therapy(1) 2.5 - 3. 54. High Intensity Therapy(2) 3.0 - 4.05. Panic Value INR > 5.0 [facility] SouthCT ABDOMEN/PELVIS IJ8983-68-81 09:50:00 [place] [address] Patient Name: MIGUEL FONTENOT MR #: [id number] : 07/1935 Age/Sex: 83/F Req #: [id number] Adm Physician: RODNEY ROSADO MD Ordered by: ABRAM WADDELL, KAMI WADDELL Report #: [id number] Location: [facility] Room/Bed: [place] [address] Procedure: 1225-[address]/CT ABDOMEN/PELVIS WO Exam [...] COPY TO: KAMI VALVERDE Activated Partial Thromboplast Pkcy9293-75-81 18:07:00* Test Item Value Reference Range Interpretation Comments Activated Partial Thromboplast Time (test code = 46191-6) 29.2 23.8-35.5 [facility] SouthActivated Partial Thromboplast Time 2018-08-21 18:07:00* Test Item Value Reference Range Interpretation Comments Activated Partial Thromboplast Time (test code = 18734-9) 29.2 23.8-35.5 [facility] SouthHepatitis B Surface Antibody, Quant 2018-05-21 14:59:00* Test Item Value Reference Range Interpretation Comments Hepatitis B Surface Antibody, Quant (test code = 5194-6) 828.4 Immunity>9.9 Status of Immunity Anti-HBs Level Inconsistent with Immunity 0.0 - 9.9Consistent with Immunity >9.9[facility] B Core Total Dzzznjih5068-44-49 14:59:00* Test Item Value Reference Range Interpretation Comments Hepatitis B Core Total Antibody (test code = 19602-3) Negative Negative Performed at: [facility] [id number] Director: Winston Mcmillan MD, Phone: [phone] Health [facility] SouthHepatitis B Surface Zfhtfgi9356-58-57 14:59:00* Test Item Value Reference Range Interpretation Comments Hepatitis B Surface Antigen (test code = 5196-1) Negative Negat bhavna [facility] SouthWhite Blood Cxbcb7622-26-57 05:13:00* Test Item Value Reference Range Interpretation Comments White Blood Count (test code = 6690-2) 12.40 4.8-10.8 H VERIFIED PREVIOUS RESULTSTexas [facility] SouthRed Blood Count 2018-05-21 05:13:00* Test Item Value Reference Range Interpretation Comments Red Blood Count (test code = 789-8) 2.64 3.6-5.1 L [facility] SouthHemoglobin2018-09-23 05:13:00* Test Item Value Reference Range Interpretation Comments Hemoglobin (test code = 86533-3) 8.0 12.0-16.0 L [facility] SouthHematocrit2018-09-23 05:13:00* Test Item Value Reference Range Interpretation Comments Hematocrit (test code = 4544-3) 25.1 34.2-44.1 L [facility] SouthMean Corpuscular Gtkmmh3528-18-22 05:13:00* Test Item Value Reference Range Interpretation Comments Mean Corpuscular Volume (test code = 787-2) 95.1 81-99 [facility] SouthMean Corpuscular Graoigwtkl8550-70-69 05:13:00* Test Item Value Reference Range Interpretation Comments Mean Corpuscular Hemoglobin (test code = 785-6) 30.3 28-32 [facility] SouthMean Corpuscular Hemoglobin Concent 2018-05-21 05:13:00* Test Item Value Reference Range Interpretation Comments Mean Corpuscular Hemoglobin Concent (test code = 786-4) 31.9 31-35 [facility] SouthRed Cell Distribution Uhpmf6359-99-40 05:13:00* Test Item Value Reference Range Interpretation Comments Red Cell Distribution Width (test code = 21226-6) 17.4 11.7 -14.4 H [facility] SouthPlatelet Zrlvw5125-48-92 05:13:00* Test Item Value Reference Range Interpretation Comments Platelet Count (test code = 777-3) 192 140-360 VERIFIED PREVIOUS RESULTSTexas [facility] SouthNeutrophils (%) (Auto)2018-05-21 05:13:00* Test Item Value Reference Range Interpretation Comments Neutrophils (%) (Auto) (test code = 93419-3) 83.1 38.7-80.0 H [facility] SouthLymphocytes (%) (Auto)2018-05-21 05:13:00 * Test Item Value Reference Range Interpretation Comments Lymphocytes (%) (Auto) (test code = 736-9) 10.2 18.0-39.1 L [facility] SouthMonocytes (%) (Auto)2018-05-21 05:13:00* Test Item Value Reference Range Interpretation Comments Monocytes (%) (Auto) (test code = 5905-5) 5.7 4.4-11.3 [facility] SouthEosinophils (%) (Auto)2018-05-21 05:13:00 * Test Item Value Reference Range Interpretation Comments Eosinophils (%) (Auto) (test code = 713-8) 0.2 0.0-6.0 [facility] SouthBasophils (%) (Auto)2018-05-21 05:13:00* Test Item Value Reference Range Interpretation Comments Basophils (%) (Auto) (test code = 706-2) 0.2 0.0-1.0 [facility] SouthIM GRANULOCYTES %2018-05-21 05:13:00* Test Item Value Reference Range Interpretation Comments IM GRANULOCYTES % (test code = IM GRANULOCYTES %) 0.6 0.0- 1.0 [facility] SouthNeutrophils # (Auto)2018-05-21 05:13:00* Test Item Value Reference Range Interpretation Comments Neutrophils # (Auto) (test code = 751-8) 10.3 2.1-6.9 H [facility] SouthLymphocytes # (Auto)2018-05-21 05:13:00* Test Item Value Reference Range Interpretation Comments Lymphocytes # (Auto) (test code = 36441-3) 1.3 1.0-3.2 [facility] SouthMonocytes # (Auto)2018-05-21 05:13:00* Test Item Value Reference Range Interpretation Comments Monocytes # (Auto) (test code = 742-7) 0.7 0.2-0.8 [facility] SouthEosinophils # (Auto)2018-05-21 05:13:00* Test Item Value Reference Range Interpretation Comments Eosinophils # (Auto) (test code = 711-2) 0.0 0.0-0.4 [facility] SouthBasophils # (Auto)2018-05-21 05:13:00* Test Item Value Reference Range Interpretation Comments Basophils # (Auto) (test code = 704-7) 0.0 0.0-0.1 [facility] SouthAbsolute Immature Granulocyte (auto 2018-05-21 05:13:00* Test Item Value Reference Range Interpretation Comments Absolute Immature Granulocyte (auto (karo t code = Absolute Immature Granulocyte (auto) 0.08 0-0.1 [facility] SouthBlood Ofuqelp5965-99-76 12:15:00* Test Item Value Reference Range Interpretation Comments Blood Culture (test code = 08554319) NO GROWTH AFTER 5 DAYS, FINAL REPORT [facility] Jzimvrt1461-90-38 12:15:00* Test Item Value Reference Range Interpretation Comments Blood Culture (test code = 09722244) NO GROWTH AFTER 5 DAYS, FINAL REPORT [facility] SouthCHEST SINGLE (PORTABLE)2018-05-20 06:33:00 [place] [address] Patient Name: MIGUEL FONTENOT MR #: [id number] : 1935 Age/Sex: 82/F Req #: [id number] Adm Physician: CHRISTEL HATHAWAY MD Ordered by: ZEINA ALBRIGHT NP Report #: [id number] Location: MED/SURG2 Room/Bed: [facility] Procedure: [id number] DX/CHEST SINGLE (PORTABLE) Exam [...] APPLE MD 4 Transcribed By: YAQUELIN on 05/20/1835 COPY T O: ZEINA ALBRIGHT NP Sodium Kwdki9902-89-00 05:27:00* Test Item Value Reference Range Interpretation Comments Sodium Level (test code = 2951-2) 139 136-145 [facility] SouthPotassium Zmqba5339-19-74 05:27:00* Test Item Value Reference Range Interpretation Comments Potassium Level (test code = 2823-3) 3.6 3.5-5.1 [facility] SouthChloride Wqmqt8467-42-69 05:27:00* Test Item Value Reference Range Interpretation Comments Chloride Level (test code = 2075-0) 104 98-107 [facility] SouthCarbon Dioxide Qgljq5756-14-12 05:27:00* Test Item Value Reference Range Interpretation Comments Carbon Dioxide Level (test code = 2028-9) 22 -29 [facility] SouthAnion Yjh1841-37-38 05:27:00* Test Item Value Reference Range Interpretation Comments Anion Gap (test code = 47659-2) 16.6 8-16 H [facility] SouthBlood Urea Jjtbconw7229-44-05 05:27:00* Test Item Value Reference Range Interpretation Comments Blood Urea Nitrogen (test code = 3094-0) 20 7-26 [facility] SouthCreatinine2018-09-22 05:27:00* Test Item Value Reference Range Interpretation Comments Creatinine (test code = 2160-0) 5.17 0.57-1.11 H [facility] SouthBUN/Creatinine Ngryx5586-68-40 05:27:00* Test Item Value Reference Range Interpretation Comments BUN/Creatinine Ratio (test code = 3097-3) 4 6-25 L [facility] SouthEstimat Glomerular Filtration Rate 2018-05-20 05:27:00* Test Item Value Reference Range Interpretation Comments Estimat Glomerular Filtration Rate (test code = 544634839) 8 >60 L Ranges were taken from the National Kidney Disease Education Program and the [employer] allegh[facility] healthal [employer] literature.Reference ranges:60 or greater: Cwhhjb57-21 ( for 3 consecutive months): Chronic kidney disease 15 or less: Kidney failureTexas Health Huguley Hospital [facility] SouthGlucose Tbrbz6069-78-11 05:27:00* Test Item Value Reference Range Interpretation Comments Glucose Level (test code = PKR0235) 194 74-118 H [facility] SouthCalcium Vmojq6259-91-37 05:27:00* Test Item Value Reference Range Interpretation Comments Calcium Level (test code = 30458-9) 8.3 8.4-10.2 L [facility] SouthCreatine Kinase WL2827-64-71 11:10:00* Test Item Value Reference Range Interpretation Comments Creatine Kinase MB (test code = 86091-3) 0.70 0-5.0 [facility] SouthTroponin [id number] 11:10:00* Test Item Value Reference Range Interpretation Comments Troponin I (test code = MCX8422) 0.006 0-0.300 [facility] SouthCreatine Kinase RC1227-62-60 11:10:00* Test Item Value Reference Range Interpretation Comments Creatine Kinase MB (test code = 04054-4) 0.70 0-5.0 [facility] SouthTroponin A7688-96-38 11:10:00* Test Item Value Reference Range Interpretation Comments Troponin I (test code = BSV0362) 0.006 0-0.300 [facility] SouthCreatine Kinase CG6882-43-15 11:10:00* Test Item Value Reference Range Interpretation Comments Creatine Kinase MB (test code = 32728-3) 0.70 0-5.0 [facility] SouthTrDanielle Ville [address]Q0887-41-70 11:10:00* Test Item Value Reference Range Interpretation Comments Troponin I (test code = OWL1744) 0.006 0-0.300 [facility] SouthMagnesium Ektqu2169-61-96 11:07:00* Test Item Value Reference Range Interpretation Comments Magnesium Level (test code = 24566-3) 1.7 1.3-2.1 [facility] SouthTotal Ggjefijxm1716-69-92 11:07:00* Test Item Value Reference Range Interpretation Comments Total Bilirubin (test code = 1975-2) 0.9 0.2-1.2 [facility] SouthAspartate Amino Transf (AST/SGOT) 2018-05-19 11:07:00* Test Item Value Reference Range Interpretation Comments Aspartate Amino Transf (AST/SGOT) (test code = Aspartate Amino Transf (AST/SGOT)) 18 5-34 [facility] SouthAlanine Aminotransferase (ALT/SGPT) 2018-05-19 11:07:00* Test Item Value Reference Range Interpretation Comments Alanine Aminotransferase (ALT/SGPT) (test code = 1742-6) 12 0-55 [facility] SouthTotal Itxjcuo1206-73-33 11:07:00* Test Item Value Reference Range Interpretation Comments Total Protein (test code = 2885-2) 6.5 6.5-8.1 [facility] SouthAlbumin2018-09-21 11:07:00* Test Item Value Reference Range Interpretation Comments Albumin (test code = 1751-7) 2.8 3.5-5.0 L [facility] SouthGlobulin2018-09-21 11:07:00* Test Item Value Reference Range Interpretation Comments Globulin (test code = 57792-1) 3.7 2.3-3.5 H [facility] SouthAlbumin/Globulin Kivth8579-00-14 11:07:00 * Test Item Value Reference Range Interpretation Comments Albumin/Globulin Ratio (test code = 1759-0) 0.8 0.8-2.0 [facility] SouthAlkaline Mybmzhqgtmx7318-02-28 11:07:00* Test Item Value Reference Range Interpretation Comments Alkaline Phosphatase (test code = 6768-6) 109 40-150 [facility] SouthCreatine Wwbixk1411-59-18 11:07:00* Test Item Value Reference Range Interpretation Comments Creatine Kinase (test code = 2157-6) 44 29-168 [facility] SouthMagnesium Lwkzf9438-10-65 11:07:00* Test Item Value Reference Range Interpretation Comments Magnesium Level (test code = 95766-1) 1.7 1.3-2.1 [facility] SouthCreatine Yvylct8891-96-00 11:07:00* Test Item Value Reference Range Interpretation Comments Creatine Kinase (test code = 2157-6) 44 29-168 [facility] SouthMagnesium Dzkgk2516-03-27 11:07:00* Test Item Value Reference Range Interpretation Comments Magnesium Level (test code = 88082-9) 1.7 1.3-2.1 [facility] SouthCreatine Kzdbqj4731-16-39 11:07:00* Test Item Value Reference Range Interpretation Comments Creatine Kinase (test code = 2157-6) 44 29-168 [facility] SouthIron Gsyqa6897-44-88 11:06:00* Test Item Value Reference Range Interpretation Comments Iron Level (test code = 2498-4) 84 50-170 [facility] SouthTotal Iron Binding Algahdcl7045-89-54 11:06:00* Test Item Value Reference Range Interpretation Comments Total Iron Binding Capacity (test code = 2500-7) 280 261-4 78 [facility] SouthPercent Iron Qotdefntzu4111-27-29 11:06:00* Test Item Value Reference Range Interpretation Comments Percent Iron Saturation (test code = 2502-3) 30 15-50 [facility] SouthTransferrin2018-09-21 11:06:00* Test Item Value Reference Range Interpretation Comments Transferrin (test code = 3034-6) 200 180-382 [facility]2018-09-21 11:06:00* Test Item Value Reference Range Interpretation Comments Iron Level (test code = 2498-4) 84 50-170 [facility] Iron Binding Tigkelmu0722-64-60 11:06:00* Test Item Value Reference Range Interpretation Comments Total Iron Binding Capacity (test code = 2500-7) 280 261-4 78 [facility] Zellegowzq7899-11-80 11:06:00* Test Item Value Reference Range Interpretation Comments Percent Iron Saturation (test code = 2502-3) 30 15-50 [facility] SouthTransferrin2018-09-21 11:06:00* Test Item Value Reference Range Interpretation Comments Transferrin (test code = 3034-6) 200 180-382 [facility] Urftx0754-37-43 11:06:00* Test Item Value Reference Range Interpretation Comments Iron Level (test code = 2498-4) 84 50-170 [facility] Iron Binding Wllpawcm6694-47-05 11:06:00* Test Item Value Reference Range Interpretation Comments Total Iron Binding Capacity (test code = 2500-7) 280 261-4 78 [facility] SouthPercent Iron Wxpspogvmz1204-98-39 11:06:00* Test Item Value Reference Range Interpretation Comments Percent Iron Saturation (test code = 2502-3) 30 15-50 [facility] SouthTransferrin2018-09-21 11:06:00* Test Item Value Reference Range Interpretation Comments Transferrin (test code = 3034-6) 200 180-382 [facility] SouthProthrombin Xghh5300-15-72 11:05:00* Test Item Value Reference Range Interpretation Comments Prothrombin Time (test code = 5902-2) 14.2 11.9-14.5 [facility] SouthProthromb Time International Ratio 2018-05-19 11:05:00* Test Item Value Reference Range Interpretation Comments Prothromb Time International Ratio (test code = 6301-6) 1.01 Oral Anticoagulant Therapy INR Values:1. Low Intensity Therapy 1.5 - 2.02 . Moderate Intensity Therapy 2.0 - 3.03. High Intensity Therapy(1) 2.5 - 3. 54. High Intensity Therapy(2) 3.0 - 4.05. Panic Value INR > 5.0 [facility] SouthActivated Partial Thromboplast Time 2018-05-19 11:05:00* Test Item Value Reference Range Interpretation Comments Activated Partial Thromboplast Time (test code = 92540-0) 28.6 23.8-35.5 [facility] SouthUrine YFC9511-21-91 10:59:00* Test Item Value Reference Range Interpretation Comments Urine WBC (test code = 5821-4) NONE 0-5 [facility] SouthUrine QKC0360-43-02 10:59:00* Test Item Value Reference Range Interpretation Comments Urine RBC (test code = 21376-2) NONE 0-5 [facility] SouthUrine Nptbmfks4826-84-24 10:59:00* Test Item Value Reference Range Interpretation Comments Urine Bacteria (test code = 76733-3) NONE NONE [facility] SouthUrine Epithelial Jbuvr7021-11-28 10:59:00 * Test Item Value Reference Range Interpretation Comments Urine Epithelial Cells (test code = 74068-2) MODERATE NONE [facility] SouthUrine SQF3734-95-83 10:59:00* Test Item Value Reference Range Interpretation Comments Urine WBC (test code = 5821-4) NONE 0-5 [facility] SouthUrine REN4390-22-05 10:59:00* Test Item Value Reference Range Interpretation Comments Urine RBC (test code = 72534-3) NONE 0-5 [facility] SouthUrine Fxmjpzii3489-41-76 10:59:00* Test Item Value Reference Range Interpretation Comments Urine Bacteria (test code = 90879-4) NONE NONE [facility] SouthUrine Epithelial Swexm7317-21-15 10:59:00 * Test Item Value Reference Range Interpretation Comments Urine Epithelial Cells (test code = 07456-8) MODERATE NONE [facility] SouthUrine XNP3531-83-11 10:59:00* Test Item Value Reference Range Interpretation Comments Urine WBC (test code = 5821-4) NONE 0-5 [facility] SouthUrine USJ1010-28-97 10:59:00* Test Item Value Reference Range Interpretation Comments Urine RBC (test code = 92330-3) NONE 0-5 [facility] SouthUrine Ciuapbiz4369-81-33 10:59:00* Test Item Value Reference Range Interpretation Comments Urine Bacteria (test code = 68223-7) NONE NONE [facility] SouthUrine Epithelial Fwcuw0196-32-86 10:59:00 * Test Item Value Reference Range Interpretation Comments Urine Epithelial Cells (test code = 66480-2) MODERATE NONE [facility] SouthUrine Gcljy8988-74-64 10:51:00* Test Item Value Reference Range Interpretation Comments Urine Color (test code = 5778-6) YELLOW YELLOW [facility] SouthUrine Riwolwh0558-15-29 10:51:00* Test Item Value Reference Range Interpretation Comments Urine Clarity (test code = 97957-5) SL CLOUDY CLEAR [facility] SouthUrine Specific Iwgimon9674-81-20 10:51:00 * Test Item Value Reference Range Interpretation Comments Urine Specific [place] (test code = 5811-5) 1.010 1.010-1.02 5 [facility] SouthUrine wC8209-80-06 10:51:00* Test Item Value Reference Range Interpretation Comments Urine pH (test code = 34989-9) 7 5-7 [facility] SouthUrine Leukocyte Vaiuofws6492-48-95 10:51:00* Test Item Value Reference Range Interpretation Comments Urine Leukocyte Esterase (test code = 5799-2) NEGATIVE NEGATIVE [facility] SouthUrine Bdttmwo7671-51-31 10:51:00* Test Item Value Reference Range Interpretation Comments Urine Nitrite (test code = 03525-7) NEGATIVE NEGATIVE [facility] SouthUrine Eppenrk0892-68-13 10:51:00* Test Item Value Reference Range Interpretation Comments Urine Protein (test code = 5804-0) 2+ NEGATIVE H [facility] SouthUrine Glucose (UA)2018-05-19 10:51:00* Test Item Value Reference Range Interpretation Comments Urine Glucose (UA) (test code = 2349-9) NEGATIVE NEGATIVE [facility] SouthUrine Sjhmtvr4016-56-26 10:51:00* Test Item Value Reference Range Interpretation Comments Urine Ketones (test code = 17174-8) NEGATIVE NEGATIVE [facility] SouthUrine Nfdpovvyykvz7411-80-02 10:51:00* Test Item Value Reference Range Interpretation Comments Urine Urobilinogen (test code = 73962-0) 0.2 0.2-1 [facility] SouthUrine Rcveutgwq2902-02-97 10:51:00* Test Item Value Reference Range Interpretation Comments Urine Bilirubin (test code = 1978-6) NEGATIVE NEGATIVE [facility] SouthUrine Caoxd3671-32-96 10:51:00* Test Item Value Reference Range Interpretation Comments Urine Blood (test code = 60208-9) NEGATIVE NEGATIVE [facility] SouthUrine Efikj0289-75-17 10:51:00* Test Item Value Reference Range Interpretation Comments Urine Color (test code = 5778-6) YELLOW YELLOW [facility] SouthUrine Riafaqs8110-99-12 10:51:00* Test Item Value Reference Range Interpretation Comments Urine Clarity (test code = 06103-3) SL CLOUDY CLEAR [facility] SouthUrine Specific Fxxpxhv5891-93-81 10:51:00 * Test Item Value Reference Range Interpretation Comments Urine Specific [place] (test code = 5811-5) 1.010 1.010-1.02 5 [facility] SouthUrine pN2423-34-30 10:51:00* Test Item Value Reference Range Interpretation Comments Urine pH (test code = 11454-7) 7 5-7 [facility] SouthUrine Leukocyte Yamzfwrw8911-03-26 10:51:00* Test Item Value Reference Range Interpretation Comments Urine Leukocyte Esterase (test code = 5799-2) NEGATIVE NEGATIVE [facility] SouthUrine Stvkypp1384-59-73 10:51:00* Test Item Value Reference Range Interpretation Comments Urine Nitrite (test code = 42138-5) NEGATIVE NEGATIVE [facility] SouthUrine Inikxbt0625-53-06 10:51:00* Test Item Value Reference Range Interpretation Comments Urine Protein (test code = 5804-0) 2+ NEGATIVE H [facility] Glucose (UA)2018-05-19 10:51:00* Test Item Value Reference Range Interpretation Comments Urine Glucose (UA) (test code = 2349-9) NEGATIVE NEGATIVE [facility] SouthUrine Csaxbtg7466-98-55 10:51:00* Test Item Value Reference Range Interpretation Comments Urine Ketones (test code = 92172-8) NEGATIVE NEGATIVE [facility] Pkjeaqlczvfq0963-07-40 10:51:00* Test Item Value Reference Range Interpretation Comments Urine Urobilinogen (test code = 47428-0) 0.2 0.2-1 [facility] SouthU[facility] Bpdbwotve7322-10-15 10:51:00* Test Item Value Reference Range Interpretation Comments Urine Bilirubin (test code = 1978-6) NEGATIVE NEGATIVE [facility] SouthU[facility] Vtrwo1751-47-97 10:51:00* Test Item Value Reference Range Interpretation Comments Urine Blood (test code = 13345-9) NEGATIVE NEGATIVE [facility] SouthU[facility] Oiadz7076-52-33 10:51:00* Test Item Value Reference Range Interpretation Comments Urine Color (test code = 5778-6) YELLOW YELLOW [facility] SouthU[facility] Wwxkfnl7642-61-26 10:51:00* Test Item Value Reference Range Interpretation Comments Urine Clarity (test code = 49634-0) SL CLOUDY CLEAR [facility] SouthUrine Specific Dfrcmnr8561-07-80 10:51:00 * Test Item Value Reference Range Interpretation Comments Urine Specific [place] (test code = 5811-5) 1.010 1.010-1.02 5 [facility] SouthU[facility] pW9830-02-38 10:51:00* Test Item Value Reference Range Interpretation Comments Urine pH (test code = 15243-5) 7 5-7 [facility] SouthU[facility] Leukocyte Wlusqgyt8787-30-89 10:51:00* Test Item Value Reference Range Interpretation Comments Urine Leukocyte Esterase (test code = 5799-2) NEGATIVE NEGATIVE [facility] SouthU[facility] Scvsicl6690-00-66 10:51:00* Test Item Value Reference Range Interpretation Comments Urine Nitrite (test code = 35251-0) NEGATIVE NEGATIVE [facility] SouthU[facility] Gbhgxiq5207-52-63 10:51:00* Test Item Value Reference Range Interpretation Comments Urine Protein (test code = 5804-0) 2+ NEGATIVE H [facility] SouthU[facility] Glucose (UA)2018-05-19 10:51:00* Test Item Value Reference Range Interpretation Comments Urine Glucose (UA) (test code = 2349-9) NEGATIVE NEGATIVE [facility] SouthU[facility] Lrgvhjp1469-56-80 10:51:00* Test Item Value Reference Range Interpretation Comments Urine Ketones (test code = 53558-3) NEGATIVE NEGATIVE [facility] SouthU[facility] Tvshftvurean8671-63-69 10:51:00* Test Item Value Reference Range Interpretation Comments Urine Urobilinogen (test code = 76718-8) 0.2 0.2-1 [facility] SouthU[facility] Rfxnarpxp7743-07-85 10:51:00* Test Item Value Reference Range Interpretation Comments Urine Bilirubin (test code = 1978-6) NEGATIVE NEGATIVE [facility] SouthU[facility] Lnrpk5011-54-91 10:51:00* Test Item Value Reference Range Interpretation Comments Urine Blood (test code = 39103-7) NEGATIVE NEGATIVE [facility] SouthBlood Mrjliuk7221-32-83 10:07:00* Test Item Value Reference Range Interpretation Comments Blood Culture (test code = 03728898) NO GROWTH AFTER 72 HOURS [facility] SouthPotassium Digpk7885-46-14 15:49:00* Test Item Value Reference Range Interpretation Comments Potassium Level (test code = 2823-3) 4.2 3.5-5.1 [facility] Myhai2005-43-14 05:45:00* Test Item Value Reference Range Interpretation Comments Sodium Level (test code = 2951-2) 144 136-145 [facility] SouthChloride Mhnif4601-27-60 05:45:00* Test Item Value Reference Range Interpretation Comments Chloride Level (test code = 2075-0) 107 98-107 [facility] SouthCarbon Dioxide Lmhhf8113-35-55 05:45:00* Test Item Value Reference Range Interpretation Comments Carbon Dioxide Level (test code = 2028-9) 27 22-29 [facility] SouthAnion Quo7457-05-99 05:45:00* Test Item Value Reference Range Interpretation Comments Anion Gap (test code = 73275-3) 12.9 8-16 [facility] SouthBlood Urea Auvllagt1894-88-66 05:45:00* Test Item Value Reference Range Interpretation Comments Blood Urea Nitrogen (test code = 3094-0) 15 7-26 [facility] SouthCreatinine2018-09-19 05:45:00* Test Item Value Reference Range Interpretation Comments Creatinine (test code = 2160-0) 4.75 0.57-1.11 H [facility] SouthBUN/Creatinine Ethga2657-71-67 05:45:00* Test Item Value Reference Range Interpretation Comments BUN/Creatinine Ratio (test code = 3097-3) 3 6-25 L [facility] SouthEstimat Glomerular Filtration Rate 2018-05-17 05:45:00* Test Item Value Reference Range Interpretation Comments Estimat Glomerular Filtration Rate (test code = 480257755) 9 >60 L Ranges were taken from the National Kidney Disease Education Program and the Danit[facility] alleghany healthal [employer] literature.Reference ranges:60 or greater: Avtams83-95 ( for 3 consecutive months): Chronic kidney disease 15 or less: Kidney failure[facility] SouthGlucose Jloey0983-89-61 05:45:00* Test Item Value Reference Range Interpretation Comments Glucose Level (test code = GWJ5193) 123 74-118 H [facility] SouthCalcium Saaoe7855-88-49 05:45:00* Test Item Value Reference Range Interpretation Comments Calcium Level (test code = 08854-7) 8.3 8.4-10.2 L [facility] SouthWhite Blood Kbobf2027-69-05 05:31:00* Test Item Value Reference Range Interpretation Comments White Blood Count (test code = 6690-2) 5.15 4.8-10.8 [facility] SouthRed Blood Cnayu4906-15-02 05:31:00* Test Item Value Reference Range Interpretation Comments Red Blood Count (test code = 789-8) 2.43 3.6-5.1 L [facility] SouthHemoglobin2018-09-19 05:31:00* Test Item Value Reference Range Interpretation Comments Hemoglobin (test code = 35674-6) 7.5 12.0-16.0 L [facility] SouthHematocrit2018-09-19 05:31:00* Test Item Value Reference Range Interpretation Comments Hematocrit (test code = 4544-3) 22.7 34.2-44.1 L Results called to BLANCHE GUTIÉRREZ RN at 0529 on 05/17/18 by Finn Alexis. RB [place]. [facility] SouthMean Corpuscular Ctjytn2960-75-39 05:31:00* Test Item Value Reference Range Interpretation Comments Mean Corpuscular Volume (test code = 787-2) 93.4 81-99 [facility] SouthMean Corpuscular Vipqrlovjv8853-26-41 05:31:00* Test Item Value Reference Range Interpretation Comments Mean Corpuscular Hemoglobin (test code = 785-6) 30.9 28-32 [facility] SouthMean Corpuscular Hemoglobin Concent 2018-05-17 05:31:00* Test Item Value Reference Range Interpretation Comments Mean Corpuscular Hemoglobin Concent (test code = 786-4) 33.0 31-35 [facility] SouthRed Cell Distribution Vrqoh6640-74-57 05:31:00* Test Item Value Reference Range Interpretation Comments Red Cell Distribution Width (test code = 88396-1) 15.3 11.7 -14.4 H [facility] SouthPlatelet Gtxaq6023-70-77 05:31:00* Test Item Value Reference Range Interpretation Comments Platelet Count (test code = 777-3) 185 140-360 [facility] SouthNeutrophils (%) (Auto)2018-05-17 05:31:00 * Test Item Value Reference Range Interpretation Comments Neutrophils (%) (Auto) (test code = 80929-6) 63.6 38.7-80.0 [facility] SouthLymphocytes (%) (Auto)2018-05-17 05:31:00 * Test Item Value Reference Range Interpretation Comments Lymphocytes (%) (Auto) (test code = 736-9) 18.3 18.0-39.1 [facility] SouthMonocytes (%) (Auto)2018-05-17 05:31:00* Test Item Value Reference Range Interpretation Comments Monocytes (%) (Auto) (test code = 5905-5) 13.6 4.4-11.3 H [facility] SouthEosinophils (%) (Auto)2018-05-17 05:31:00 * Test Item Value Reference Range Interpretation Comments Eosinophils (%) (Auto) (test code = 713-8) 3.5 0.0-6.0 [facility] SouthBasophils (%) (Auto)2018-05-17 05:31:00* Test Item Value Reference Range Interpretation Comments Basophils (%) (Auto) (test code = 706-2) 0.6 0.0-1.0 [facility] SouthIM GRANULOCYTES %2018-05-17 05:31:00* Test Item Value Reference Range Interpretation Comments IM GRANULOCYTES % (test code = IM GRANULOCYTES %) 0.4 0.0- 1.0 [facility] SouthNeutrophils # (Auto)2018-05-17 05:31:00* Test Item Value Reference Range Interpretation Comments Neutrophils # (Auto) (test code = 751-8) 3.3 2.1-6.9 [facility] SouthLymphocytes # (Auto)2018-05-17 05:31:00* Test Item Value Reference Range Interpretation Comments Lymphocytes # (Auto) (test code = 32630-4) 0.9 1.0-3.2 L [facility] SouthMonocytes # (Auto)2018-05-17 05:31:00* Test Item Value Reference Range Interpretation Comments Monocytes # (Auto) (test code = 742-7) 0.7 0.2-0.8 [facility] SouthEosinophils # (Auto)2018-05-17 05:31:00* Test Item Value Reference Range Interpretation Comments Eosinophils # (Auto) (test code = 711-2) 0.2 0.0-0.4 [facility] SouthBasophils # (Auto)2018-05-17 05:31:00* Test Item Value Reference Range Interpretation Comments Basophils # (Auto) (test code = 704-7) 0.0 0.0-0.1 [facility] SouthAbsolute Immature Granulocyte (auto 2018-05-17 05:31:00* Test Item Value Reference Range Interpretation Comments Absolute Immature Granulocyte (auto (karo t code = Absolute Immature Granulocyte (auto) 0.02 0-0.1 [facility] SouthVitamin B12 Tfvzj3000-81-79 10:46:00* Test Item Value Reference Range Interpretation Comments Vitamin B12 Level (test code = 37796-5) 539 213-816 [facility] SouthFolate2018-09-18 10:46:00* Test Item Value Reference Range Interpretation Comments Folate (test code = 2284-8) 7.3 7.0-15.4 [facility] SouthVitamin B12 Dqizv5076-43-57 10:46:00* Test Item Value Reference Range Interpretation Comments Vitamin B12 Level (test code = 99672-4) 539 213-816 [facility] SouthFolate2018-09-18 10:46:00* Test Item Value Reference Range Interpretation Comments Folate (test code = 2284-8) 7.3 7.0-15.4 [facility] SouthVitamin B12 Hfdly8602-08-41 10:46:00* Test Item Value Reference Range Interpretation Comments Vitamin B12 Level (test code = 09021-1) 539 213-816 [facility] SouthFolate2018-09-18 10:46:00* Test Item Value Reference Range Interpretation Comments Folate (test code = 2284-8) 7.3 7.0-15.4 [facility] SouthVitamin B12 Wyarz2619-51-89 10:46:00* Test Item Value Reference Range Interpretation Comments Vitamin B12 Level (test code = 98911-1) 539 213-816 [facility] SouthFolate2018-09-18 10:46:00* Test Item Value Reference Range Interpretation Comments Folate (test code = 2284-8) 7.3 7.0-15.4 [facility] SouthIron Kwqas7789-12-28 10:12:00* Test Item Value Reference Range Interpretation Comments Iron Level (test code = 2498-4) 37 50-170 L [facility] SouthTotal Iron Binding Mbwbshdc4182-95-31 10:12:00* Test Item Value Reference Range Interpretation Comments Total Iron Binding Capacity (test code = 2500-7) 217 261-4 78 L [facility] SouthPercent Iron Oljaabpnky4240-63-79 10:12:00* Test Item Value Reference Range Interpretation Comments Percent Iron Saturation (test code = 2502-3) 17 15-50 [facility] SouthTransferrin2018-09-18 10:12:00* Test Item Value Reference Range Interpretation Comments Transferrin (test code = 3034-6) 155 180-382 L [facility] SouthPercent Reticulocyte Palhf4963-05-11 09:58:00* Test Item Value Reference Range Interpretation Comments Percent Reticulocyte Count (test code = 40716-7) 4.5 0.8-2 .2 H [facility] SouthPercent Reticulocyte Ppikl6143-03-88 09:58:00* Test Item Value Reference Range Interpretation Comments Percent Reticulocyte Count (test code = 71412-1) 4.5 0.8-2 .2 H [facility] SouthPercent Reticulocyte Cfqlj1532-33-52 09:58:00* Test Item Value Reference Range Interpretation Comments Percent Reticulocyte Count (test code = 79676-6) 4.5 0.8-2 .2 H [facility] SouthPercent Reticulocyte Maiog0914-67-77 09:58:00* Test Item Value Reference Range Interpretation Comments Percent Reticulocyte Count (test code = 28199-8) 4.5 0.8-2 .2 H [facility] SouthUrine YHC2451-19-25 12:46:00* Test Item Value Reference Range Interpretation Comments Urine WBC (test code = 5821-4) 0-5 0-5 [facility] SouthUrine WGZ6150-73-24 12:46:00* Test Item Value Reference Range Interpretation Comments Urine RBC (test code = 41010-5) 0-5 0-5 [facility] SouthUrine Skvftspf7550-35-67 12:46:00* Test Item Value Reference Range Interpretation Comments Urine Bacteria (test code = 56174-1) NONE [facility] Epithelial Noffr5333-08-53 12:46:00 * Test Item Value Reference Range Interpretation Comments Urine Epithelial Cells (test code = 64602-1) MANY NONE [facility] SouthUrine Transitional Epithelial Cells 2018-05-15 12:46:00* Test Item Value Reference Range Interpretation Comments Urine Transitional Epithelial Cells (test code = 8249-5) MANY NONE [facility] Transitional Epithelial Cells 2018-05-15 12:46:00* Test Item Value Reference Range Interpretation Comments Urine Transitional Epithelial Cells (test code = 8249-5) MANY NONE [facility]villeUrine Transitional Epithelial Cells 2018-05-15 12:46:00* Test Item Value Reference Range Interpretation Comments Urine Transitional Epithelial Cells (test code = 8249-5) MANY NONE [facility]villeUrine Transitional Epithelial Cells 2018-05-15 12:46:00* Test Item Value Reference Range Interpretation Comments Urine Transitional Epithelial Cells (test code = 8249-5) MANY NONE H [facility] SouthUrine Lcgfr2132-69-14 12:28:00* Test Item Value Reference Range Interpretation Comments Urine Color (test code = 5778-6) YELLOW YELLOW [facility] SouthUrine Crwdkjd9627-24-59 12:28:00* Test Item Value Reference Range Interpretation Comments Urine Clarity (test code = 33516-8) HAZY CLEAR [facility] Specific Tmtwyro8058-93-03 12:28:00 * Test Item Value Reference Range Interpretation Comments Urine Specific [place] (test code = 5811-5) 1.010 1.010-1.02 5 [facility] SouthUrine vJ6480-41-16 12:28:00* Test Item Value Reference Range Interpretation Comments Urine pH (test code = 14271-1) 8 5-7 H [facility] Leukocyte Kdvmdaki8880-38-61 12:28:00* Test Item Value Reference Range Interpretation Comments Urine Leukocyte Esterase (test code = 5799-2) NEGATIVE NEGATIVE [facility] Vbzvswu1354-68-80 12:28:00* Test Item Value Reference Range Interpretation Comments Urine Nitrite (test code = 47922-2) NEGATIVE NEGATIVE [facility] Cdyghqt4388-64-73 12:28:00* Test Item Value Reference Range Interpretation Comments Urine Protein (test code = 5804-0) 2+ NEGATIVE H [facility] SouthUrine Glucose (UA)2018-05-15 12:28:00* Test Item Value Reference Range Interpretation Comments Urine Glucose (UA) (test code = 2349-9) NEGATIVE NEGATIVE [facility] SouthUrine Twhgfxn9389-35-91 12:28:00* Test Item Value Reference Range Interpretation Comments Urine Ketones (test code = 91737-6) NEGATIVE NEGATIVE [facility] SouthUrine Bkkirzzqwvct4031-10-13 12:28:00* Test Item Value Reference Range Interpretation Comments Urine Urobilinogen (test code = 18948-1) 0.2 0.2-1 [facility] SouthUrine Dyrcwwcdt8027-16-63 12:28:00* Test Item Value Reference Range Interpretation Comments Urine Bilirubin (test code = 1978-6) NEGATIVE NEGATIVE [facility] SouthUrine Ozvpw8118-03-41 12:28:00* Test Item Value Reference Range Interpretation Comments Urine Blood (test code = 25369-7) 1+ NEGATIVE H [facility] SouthB-Type Natriuretic Vigbypf2826-94-92 11:23:00* Test Item Value Reference Range Interpretation Comments B-Type Natriuretic Peptide (test code = 43299-9) 321.1 0-100 H [facility] SouthB-Type Natriuretic Sbizukd6847-17-01 11:23:00* Test Item Value Reference Range Interpretation Comments B-Type Natriuretic Peptide (test code = 86377-0) 321.1 0-100 H [facility] SouthB-Type Natriuretic Zaskufg2999-82-05 11:23:00* Test Item Value Reference Range Interpretation Comments B-Type Natriuretic Peptide (test code = 69210-8) 321.1 0-100 H [facility] SouthB-Type Natriuretic Qnjkgrz4260-40-75 11:23:00* Test Item Value Reference Range Interpretation Comments B-Type Natriuretic Peptide (test code = 36950-7) 321.1 0-100 H [facility] SouthCT BRAIN DH7568-17-57 10:50:00 [place] [address] Patient Name: MIGUEL FONTENOT MR #: [id number] : 1935 Age/Sex: 82/F Req #: [id number] Adm Physician: Ordered by: CHANDANA DOMINGO [employer] Report #: [id number] Location: Room/Bed: Procedure: [id number] CT/CT BRAIN WO Exam Date: 05/15/18 Exam [...] COPY TO: CHANDANA DOMINGO NP Creatine Kinase TG7854-15-08 10:49:00* Test Item Value Reference Range Interpretation Comments Creatine Kinase MB (test code = 80826-6) 0.80 0-5.0 [place] [address]2018-09-17 10:49:00* Test Item Value Reference Range Interpretation Comments Troponin I (test code = ICG4048) 0.013 0-0.300 [facility]2018-05-15 10:46:00 [facility] [address] [place] [address] Patient Name: MIGUEL FONTENOT MR #: [id number] : 1935 Age/Sex: 82/F Req #: [id number] Adm Physician: CHRISTEL HATHAWAY MD Ordered by: CHANDANA DOMINGO [employer] S[employer] ENGINEER Report #: [id number] Location: MED/SURG3 Room/Bed: [facility] Procedure: DX/CHEST SINGLE (PORTABLE) Exam Date: 05/15/18 [...] 1046 COPY TO: CHANDANA DOMINGO NP Magnesium Czise2958-70-56 10:43:00* Test Item Value Reference Range Interpretation Comments Magnesium Level (test code = 50896-8) 1.5 1.3-2.1 [facility] SouthTotal Ooolaezku3564-12-30 10:43:00* Test Item Value Reference Range Interpretation Comments Total Bilirubin (test code = 1975-2) 0.5 0.2-1.2 [facility] SouthAspartate Amino Transf (AST/SGOT) 2018-05-15 10:43:00* Test Item Value Reference Range Interpretation Comments Aspartate Amino Transf (AST/SGOT) (test code = Aspartate Amino Transf (AST/SGOT)) 19 5-34 [facility] SouthAlanine Aminotransferase (ALT/SGPT) 2018-05-15 10:43:00* Test Item Value Reference Range Interpretation Comments Alanine Aminotransferase (ALT/SGPT) (test code = 1742-6) 17 0-55 [facility] SouthTotal Lgvwicf7123-13-68 10:43:00* Test Item Value Reference Range Interpretation Comments Total Protein (test code = 2885-2) 6.2 6.5-8.1 L [facility] SouthAlbumin2018-09-17 10:43:00* Test Item Value Reference Range Interpretation Comments Albumin (test code = 1751-7) 2.5 3.5-5.0 L [facility] SouthGlobulin2018-09-17 10:43:00* Test Item Value Reference Range Interpretation Comments Globulin (test code = 05502-5) 3.7 2.3-3.5 H [facility] SouthAlbumin/Globulin Owntz6159-90-24 10:43:00 * Test Item Value Reference Range Interpretation Comments Albumin/Globulin Ratio (test code = 1759-0) 0.7 0.8-2.0 L [facility] SouthAlkaline Rnlkghniwth4308-56-92 10:43:00* Test Item Value Reference Range Interpretation Comments Alkaline Phosphatase (test code = 6768-6) 79 40-150 [facility] SouthCreatine Cxehpy3294-34-78 10:43:00* Test Item Value Reference Range Interpretation Comments Creatine Kinase (test code = 2157-6) 63 29-168 [facility] SouthProthrombin Fvzm9814-14-51 10:34:00* Test Item Value Reference Range Interpretation Comments Prothrombin Time (test code = 5902-2) 14.5 11.9-14.5 [facility] SouthProthromb Time International Ratio 2018-05-15 10:34:00* Test Item Value Reference Range Interpretation Comments Prothromb Time International Ratio (test code = 6301-6) 1.22 Oral Anticoagulant Therapy INR Values:1. Low Intensity Therapy 1.5 - 2.02 . Moderate Intensity Therapy 2.0 - 3.03. High Intensity Therapy(1) 2.5 - 3. 54. High Intensity Therapy(2) 3.0 - 4.05. Panic Value INR > 5.0 [facility] SouthActivated Partial Thromboplast Time 2018-05-15 10:34:00* Test Item Value Reference Range Interpretation Comments Activated Partial Thromboplast Time (test code = 77877-0) 29.0 23.8-35.5 [facility] SouthDifferential Total Cells Counted 2018-03-30 08:42:00* Test Item Value Reference Range Interpretation Comments Differential Total Cells Counted (test code = Differgary tial Total Cells Counted) 100 [facility] SouthNeutrophils % (Manual)2018-03-30 08:42:00 * Test Item Value Reference Range Interpretation Comments Neutrophils % (Manual) (test code = 32064-6) 81 40-74 H [facility] SouthLymphocytes % (Manual)2018-03-30 08:42:00 * Test Item Value Reference Range Interpretation Comments Lymphocytes % (Manual) (test code = 737-7) 7 19-48 L [facility] SouthMonocytes % (Manual)2018-03-30 08:42:00* Test Item Value Reference Range Interpretation Comments Monocytes % (Manual) (test code = 744-3) 10 3.4-9.0 H [facility] SouthEosinophils % (Manual)2018-03-30 08:42:00 * Test Item Value Reference Range Interpretation Comments Eosinophils % (Manual) (test code = 714-6) 2 0-7 [facility] SouthPlatelet Vutfjxkz5315-18-61 08:42:00* Test Item Value Reference Range Interpretation Comments Platelet Estimate (test code = 39550-1) ADEQUATE [facility] SouthPlatelet Morphology Xjeladc4616-43-28 08:42:00* Test Item Value Reference Range Interpretation Comments Platelet Morphology Comment (test code = 29879-0) NORMAL [facility] SouthHypochromasia2018-08-02 08:42:00* Test Item Value Reference Range Interpretation Comments Hypochromasia (test code = 728-6) SLIGHT [facility] SouthAnisocytosis2018-08-02 08:42:00* Test Item Value Reference Range Interpretation Comments Anisocytosis (test code = 702-1) SLIGHT [facility] SouthRed Cell Morphology Okmeygs3251-99-50 08:42:00* Test Item Value Reference Range Interpretation Comments Red Cell Morphology Comment (test code = 6742-1) NORMAL [facility] SouthDifferential Total Cells Counted 2018-03-30 08:42:00* Test Item Value Reference Range Interpretation Comments Differential Total Cells Counted (test code = Differgary tial Total Cells Counted) 100 [facility] SouthNeutrophils % (Manual)2018-03-30 08:42:00 * Test Item Value Reference Range Interpretation Comments Neutrophils % (Manual) (test code = 51483-9) 81 40-74 H [facility] SouthLymphocytes % (Manual)2018-03-30 08:42:00 * Test Item Value Reference Range Interpretation Comments Lymphocytes % (Manual) (test code = 737-7) 7 19-48 L [facility] SouthMonocytes % (Manual)2018-03-30 08:42:00* Test Item Value Reference Range Interpretation Comments Monocytes % (Manual) (test code = 744-3) 10 3.4-9.0 H [facility] SouthEosinophils % (Manual)2018-03-30 08:42:00 * Test Item Value Reference Range Interpretation Comments Eosinophils % (Manual) (test code = 714-6) 2 0-7 [facility] SouthPlatelet Hsubrjvl8374-90-42 08:42:00* Test Item Value Reference Range Interpretation Comments Platelet Estimate (test code = 53376-1) ADEQUATE [facility] SouthPlatelet Morphology Idjviqb6955-45-02 08:42:00* Test Item Value Reference Range Interpretation Comments Platelet Morphology Comment (test code = 90154-9) NORMAL [facility] SouthHypochromasia2018-08-02 08:42:00* Test Item Value Reference Range Interpretation Comments Hypochromasia (test code = 728-6) SLIGHT [facility] SouthAnisocytosis2018-08-02 08:42:00* Test Item Value Reference Range Interpretation Comments Anisocytosis (test code = 702-1) SLIGHT [facility] SouthRed Cell Morphology Qfertlv1588-47-42 08:42:00* Test Item Value Reference Range Interpretation Comments Red Cell Morphology Comment (test code = 6742-1) NORMAL [facility] SouthDifferential Total Cells Counted 2018-03-30 08:42:00* Test Item Value Reference Range Interpretation Comments Differential Total Cells Counted (test code = Luis Alfredo tial Total Cells Counted) 100 [facility] SouthNeutrophils % (Manual)2018-03-30 08:42:00 * Test Item Value Reference Range Interpretation Comments Neutrophils % (Manual) (test code = 84849-1) 81 40-74 H [facility] SouthLymphocytes % (Manual)2018-03-30 08:42:00 * Test Item Value Reference Range Interpretation Comments Lymphocytes % (Manual) (test code = 737-7) 7 19-48 L [facility] SouthMonocytes % (Manual)2018-03-30 08:42:00* Test Item Value Reference Range Interpretation Comments Monocytes % (Manual) (test code = 744-3) 10 3.4-9.0 H [facility] SouthEosinophils % (Manual)2018-03-30 08:42:00 * Test Item Value Reference Range Interpretation Comments Eosinophils % (Manual) (test code = 714-6) 2 0-7 [facility] SouthPlatelet Zxrfxznj2201-71-69 08:42:00* Test Item Value Reference Range Interpretation Comments Platelet Estimate (test code = 88402-9) ADEQUATE [facility] SouthPlatelet Morphology Wlyuckd1114-40-88 08:42:00* Test Item Value Reference Range Interpretation Comments Platelet Morphology Comment (test code = 46505-7) NORMAL [facility] SouthHypochromasia2018-08-02 08:42:00* Test Item Value Reference Range Interpretation Comments Hypochromasia (test code = 728-6) SLIGHT [facility] SouthAnisocytosis2018-08-02 08:42:00* Test Item Value Reference Range Interpretation Comments Anisocytosis (test code = 702-1) SLIGHT [facility] SouthRed Cell Morphology Bdnzcbb7127-69-36 08:42:00* Test Item Value Reference Range Interpretation Comments Red Cell Morphology Comment (test code = 6742-1) NORMAL [facility] SouthDifferential Total Cells Counted 2018-03-30 08:42:00* Test Item Value Reference Range Interpretation Comments Differential Total Cells Counted (test code = Luis Alfredo florinda Total Cells Counted) 100 [facility] SouthNeutrophils % (Manual)2018-03-30 08:42:00 * Test Item Value Reference Range Interpretation Comments Neutrophils % (Manual) (test code = 04999-3) 81 40-74 H [facility] SouthLymphocytes % (Manual)2018-03-30 08:42:00 * Test Item Value Reference Range Interpretation Comments Lymphocytes % (Manual) (test code = 737-7) 7 19-48 L [facility] SouthMonocytes % (Manual)2018-03-30 08:42:00* Test Item Value Reference Range Interpretation Comments Monocytes % (Manual) (test code = 744-3) 10 3.4-9.0 H [facility] SouthEosinophils % (Manual)2018-03-30 08:42:00 * Test Item Value Reference Range Interpretation Comments Eosinophils % (Manual) (test code = 714-6) 2 0-7 [facility] SouthPlatelet Qqfpjjqi8372-80-68 08:42:00* Test Item Value Reference Range Interpretation Comments Platelet Estimate (test code = 78095-4) ADEQUATE [facility] SouthPlatelet Morphology Sihdvzo2011-02-80 08:42:00* Test Item Value Reference Range Interpretation Comments Platelet Morphology Comment (test code = 74610-2) NORMAL [facility] SouthHypochromasia2018-08-02 08:42:00* Test Item Value Reference Range Interpretation Comments Hypochromasia (test code = 728-6) SLIGHT [facility] SouthAnisocytosis2018-08-02 08:42:00* Test Item Value Reference Range Interpretation Comments Anisocytosis (test code = 702-1) SLIGHT [facility] SouthRed Cell Morphology Gxahqyz5489-32-78 08:42:00* Test Item Value Reference Range Interpretation Comments Red Cell Morphology Comment (test code = 6742-1) NORMAL [facility] SouthDifferential Total Cells Counted 2018-03-30 08:42:00* Test Item Value Reference Range Interpretation Comments Differential Total Cells Counted (test code = Differgary tial Total Cells Counted) 100 [facility] SouthNeutrophils % (Manual)2018-03-30 08:42:00 * Test Item Value Reference Range Interpretation Comments Neutrophils % (Manual) (test code = 90984-3) 81 40-74 H [facility] SouthLymphocytes % (Manual)2018-03-30 08:42:00 * Test Item Value Reference Range Interpretation Comments Lymphocytes % (Manual) (test code = 737-7) 7 19-48 L [facility] SouthMonocytes % (Manual)2018-03-30 08:42:00* Test Item Value Reference Range Interpretation Comments Monocytes % (Manual) (test code = 744-3) 10 3.4-9.0 H [facility] SouthEosinophils % (Manual)2018-03-30 08:42:00 * Test Item Value Reference Range Interpretation Comments Eosinophils % (Manual) (test code = 714-6) 2 0-7 [facility] SouthPlatelet Zwiroujg5831-02-10 08:42:00* Test Item Value Reference Range Interpretation Comments Platelet Estimate (test code = 08835-0) ADEQUATE [facility] SouthPlatelet Morphology Wuobwnd4162-93-52 08:42:00* Test Item Value Reference Range Interpretation Comments Platelet Morphology Comment (test code = 66447-5) NORMAL [facility] SouthHypochromasia2018-08-02 08:42:00* Test Item Value Reference Range Interpretation Comments Hypochromasia (test code = 728-6) SLIGHT [facility] SouthAnisocytosis2018-08-02 08:42:00* Test Item Value Reference Range Interpretation Comments Anisocytosis (test code = 702-1) SLIGHT [facility] SouthRed Cell Morphology Oabykps7518-44-18 08:42:00* Test Item Value Reference Range Interpretation Comments Red Cell Morphology Comment (test code = 6742-1) NORMAL [facility] SouthThyroid Stimulating Hormone (TSH) 2018-03-30 06:23:00* Test Item Value Reference Range Interpretation Comments Thyroid Stimulating Hormone (TSH) (test code = 95938-1) 1.496 0.350-4.940 [facility] SouthThyroid Stimulating Hormone (TSH) 2018-03-30 06:23:00* Test Item Value Reference Range Interpretation Comments Thyroid Stimulating Hormone (TSH) (test code = 12058-7) 1.496 0.350-4.940 [facility] SouthThyroid Stimulating Hormone (TSH) 2018-03-30 06:23:00* Test Item Value Reference Range Interpretation Comments Thyroid Stimulating Hormone (TSH) (test code = 78511-8) 1.496 0.350-4.940 [facility] SouthThyroid Stimulating Hormone (TSH) 2018-03-30 06:23:00* Test Item Value Reference Range Interpretation Comments Thyroid Stimulating Hormone (TSH) (test code = 13444-2) 1.496 0.350-4.940 [facility] SouthThyroid Stimulating Hormone (TSH) 2018-03-30 06:23:00* Test Item Value Reference Range Interpretation Comments Thyroid Stimulating Hormone (TSH) (test code = 94008-0) 1.496 0.350-4.940 [facility] SouthTriglycerides Thfkl2766-08-29 06:00:00* Test Item Value Reference Range Interpretation Comments Triglycerides Level (test code = 2571-8) 152 0-149 H [facility] SouthCholesterol Wysmd2815-71-99 06:00:00* Test Item Value Reference Range Interpretation Comments Cholesterol Level (test code = 2093-3) 157 0-199 Less than 200 mg/dL Low Azmq882 - 239 mg/dL Borderline Ouac823 m g/dl and greater High Risk [facility] Dopwcqhffmn0676-25-60 06:00:00* Test Item Value Reference Range Interpretation Comments LDL Cholesterol (test code = 2089-1) 83 60-130 [facility] Wnbtonwewhe4409-31-83 06:00:00* Test Item Value Reference Range Interpretation Comments HDL Cholesterol (test code = 2085-9) 44 40-60 [facility] SouthCholesterol/HDL Jhzwx4265-47-84 06:00:00 * Test Item Value Reference Range Interpretation Comments Cholesterol/HDL Ratio (test code = 9830-1) 3.6 3.0-3.6 [facility] SouthTriglycerides Nrzja0881-04-65 06:00:00* Test Item Value Reference Range Interpretation Comments Triglycerides Level (test code = 2571-8) 152 0-149 H [facility] SouthCholesterol Kzyes2572-73-69 06:00:00* Test Item Value Reference Range Interpretation Comments Cholesterol Level (test code = 2093-3) 157 0-199 Less than 200 mg/dL Low Bdxq760 - 239 mg/dL Borderline Kqto397 m g/dl and greater High Risk [facility] SouthLDL Fffszhlekrr0742-36-06 06:00:00* Test Item Value Reference Range Interpretation Comments LDL Cholesterol (test code = 2089-1) 83 60-130 [facility] Jemioqirqcb8389-12-84 06:00:00* Test Item Value Reference Range Interpretation Comments HDL Cholesterol (test code = 2085-9) 44 40-60 [facility] SouthCholesterol/HDL Dbfpe8196-02-12 06:00:00 * Test Item Value Reference Range Interpretation Comments Cholesterol/HDL Ratio (test code = 9830-1) 3.6 3.0-3.6 [facility] SouthTriglycerides Gekee5341-59-02 06:00:00* Test Item Value Reference Range Interpretation Comments Triglycerides Level (test code = 2571-8) 152 0-149 H [facility] SouthCholesterol Oomfx9313-91-67 06:00:00* Test Item Value Reference Range Interpretation Comments Cholesterol Level (test code = 2093-3) 157 0-199 Less than 200 mg/dL Low Gkar244 - 239 mg/dL Borderline Chok685 m g/dl and greater High Risk [facility] SouthLDL Duvxxfqcifl0827-38-95 06:00:00* Test Item Value Reference Range Interpretation Comments LDL Cholesterol (test code = 2089-1) 83 60-130 [facility] SouthHDL Eoqpcmayyxu7451-04-95 06:00:00* Test Item Value Reference Range Interpretation Comments HDL Cholesterol (test code = 2085-9) 44 40-60 [facility] SouthCholesterol/HDL Curab5413-31-98 06:00:00 * Test Item Value Reference Range Interpretation Comments Cholesterol/HDL Ratio (test code = 9830-1) 3.6 3.0-3.6 [facility] SouthTriglycerides Yfqnr7887-02-28 06:00:00* Test Item Value Reference Range Interpretation Comments Triglycerides Level (test code = 2571-8) 152 0-149 H [facility] SouthCholesterol Gvykz9568-72-59 06:00:00* Test Item Value Reference Range Interpretation Comments Cholesterol Level (test code = 2093-3) 157 0-199 Less than 200 mg/dL Low Wgfj581 - 239 mg/dL Borderline Ztjs963 m g/dl and greater High Risk [facility] SouthLDL Qqjmblwcuhk0739-33-92 06:00:00* Test Item Value Reference Range Interpretation Comments LDL Cholesterol (test code = 2089-1) 83 60-130 [facility] SouthHDL Jtmhlkmnbkg4800-58-26 06:00:00* Test Item Value Reference Range Interpretation Comments HDL Cholesterol (test code = 2085-9) 44 40-60 [facility] SouthCholesterol/HDL Sngtz8652-42-17 06:00:00 * Test Item Value Reference Range Interpretation Comments Cholesterol/HDL Ratio (test code = 9830-1) 3.6 3.0-3.6 [facility] SouthTriglycerides Lhalf0669-38-37 06:00:00* Test Item Value Reference Range Interpretation Comments Triglycerides Level (test code = 2571-8) 152 0-149 H [facility] SouthCholesterol Imday7734-82-31 06:00:00* Test Item Value Reference Range Interpretation Comments Cholesterol Level (test code = 2093-3) 157 0-199 Less than 200 mg/dL Low Uvoi076 - 239 mg/dL Borderline Jhjz387 m g/dl and greater High Risk [facility] SouthLDL Pxxkexlxdlm8310-34-95 06:00:00* Test Item Value Reference Range Interpretation Comments LDL Cholesterol (test code = 2089-1) 83 60-130 [facility] Wngqlyhehui5000-61-34 06:00:00* Test Item Value Reference Range Interpretation Comments HDL Cholesterol (test code = 2085-9) 44 40-60 [facility] SouthCholesterol/HDL Wogsd7191-44-77 06:00:00 * Test Item Value Reference Range Interpretation Comments Cholesterol/HDL Ratio (test code = 9830-1) 3.6 3.0-3.6 [facility] SouthWhite Blood Ftvtv3962-97-71 05:52:00* Test Item Value Reference Range Interpretation Comments White Blood Count (test code = 6690-2) 6.53 4.8-10.8 [facility] SouthRed Blood Fqyoi3765-70-05 05:52:00* Test Item Value Reference Range Interpretation Comments Red Blood Count (test code = 789-8) 3.84 3.6-5.1 [facility] SouthHemoglobin2018-08-02 05:52:00* Test Item Value Reference Range Interpretation Comments Hemoglobin (test code = 76707-7) 11.6 12.0-16.0 L [facility] SouthHematocrit2018-08-02 05:52:00* Test Item Value Reference Range Interpretation Comments Hematocrit (test code = 4544-3) 34.8 34.2-44.1 [facility] SouthMean Corpuscular Vyexjo3770-96-81 05:52:00* Test Item Value Reference Range Interpretation Comments Mean Corpuscular Volume (test code = 787-2) 90.6 81-99 [facility] SouthMean Corpuscular Osfmrjogew2109-33-95 05:52:00* Test Item Value Reference Range Interpretation Comments Mean Corpuscular Hemoglobin (test code = 785-6) 30.2 28-32 [facility] SouthMean Corpuscular Hemoglobin Concent 2018-03-30 05:52:00* Test Item Value Reference Range Interpretation Comments Mean Corpuscular Hemoglobin Concent (test code = 786-4) 33.3 31-35 [facility] SouthRed Cell Distribution Lmrdu5364-02-62 05:52:00* Test Item Value Reference Range Interpretation Comments Red Cell Distribution Width (test code = 02680-7) 13.3 11.7 -14.4 [facility] SouthPlatelet Mhjiy3217-28-76 05:52:00* Test Item Value Reference Range Interpretation Comments Platelet Count (test code = 777-3) 92 140-360 L [facility] SouthNeutrophils (%) (Auto)2018-03-30 05:52:00 * Test Item Value Reference Range Interpretation Comments Neutrophils (%) (Auto) (test code = 44062-9) 76.4 38.7-80.0 [facility] SouthLymphocytes (%) (Auto)2018-03-30 05:52:00 * Test Item Value Reference Range Interpretation Comments Lymphocytes (%) (Auto) (test code = 736-9) 8.0 18.0-39.1 L [facility] SouthMonocytes (%) (Auto)2018-03-30 05:52:00* Test Item Value Reference Range Interpretation Comments Monocytes (%) (Auto) (test code = 5905-5) 10.7 4.4-11.3 [facility] SouthEosinophils (%) (Auto)2018-03-30 05:52:00 * Test Item Value Reference Range Interpretation Comments Eosinophils (%) (Auto) (test code = 713-8) 3.8 0.0-6.0 [facility] SouthBasophils (%) (Auto)2018-03-30 05:52:00* Test Item Value Reference Range Interpretation Comments Basophils (%) (Auto) (test code = 706-2) 0.3 0.0-1.0 [facility] SouthIM GRANULOCYTES %2018-03-30 05:52:00* Test Item Value Reference Range Interpretation Comments IM GRANULOCYTES % (test code = IM GRANULOCYTES %) 0.8 0.0- 1.0 [facility] SouthNeutrophils # (Auto)2018-03-30 05:52:00* Test Item Value Reference Range Interpretation Comments Neutrophils # (Auto) (test code = 751-8) 5.0 2.1-6.9 [facility] SouthLymphocytes # (Auto)2018-03-30 05:52:00* Test Item Value Reference Range Interpretation Comments Lymphocytes # (Auto) (test code = 44577-5) 0.5 1.0-3.2 L [facility] SouthMonocytes # (Auto)2018-03-30 05:52:00* Test Item Value Reference Range Interpretation Comments Monocytes # (Auto) (test code = 742-7) 0.7 0.2-0.8 [facility] SouthEosinophils # (Auto)2018-03-30 05:52:00* Test Item Value Reference Range Interpretation Comments Eosinophils # (Auto) (test code = 711-2) 0.3 0.0-0.4 [facility] SouthBasophils # (Auto)2018-03-30 05:52:00* Test Item Value Reference Range Interpretation Comments Basophils # (Auto) (test code = 704-7) 0.0 0.0-0.1 [facility] SouthAbsolute Immature Granulocyte (auto 2018-03-30 05:52:00* Test Item Value Reference Range Interpretation Comments Absolute Immature Granulocyte (auto (karo t code = Absolute Immature Granulocyte (auto) 0.05 0-0.1 [facility] SouthTroponin Y1876-50-11 08:35:00* Test Item Value Reference Range Interpretation Comments Troponin I (test code = ZPY4529) 0.021 0-0.300 [facility] SouthCreatine Kinase MG5972-50-62 08:30:00* Test Item Value Reference Range Interpretation Comments Creatine Kinase MB (test code = 35889-9) 1.00 0-5.0 [facility] SouthCreatine Cvleae7369-49-12 08:23:00* Test Item Value Reference Range Interpretation Comments Creatine Kinase (test code = 2157-6) 64 29-168 [facility] Centerodium Cwjxg1791-01-35 08:20:00* Test Item Value Reference Range Interpretation Comments Sodium Level (test code = 2951-2) 142 136-145 [facility] SouthPotassium Jgvst7554-05-82 08:20:00* Test Item Value Reference Range Interpretation Comments Potassium Level (test code = 2823-3) 4.0 3.5-5.1 [facility] SouthChloride Fvycb6400-61-85 08:20:00* Test Item Value Reference Range Interpretation Comments Chloride Level (test code = 2075-0) 110 98-107 H [facility] SouthCarbon Dioxide Arswa1292-33-70 08:20:00* Test Item Value Reference Range Interpretation Comments Carbon Dioxide Level (test code = 2028-9) 22 22-29 [facility] SouthAnion Fpf4061-84-59 08:20:00* Test Item Value Reference Range Interpretation Comments Anion Gap (test code = 71417-9) 14.0 8-16 [facility] SouthBlood Urea Gstyjlvj6569-58-35 08:20:00* Test Item Value Reference Range Interpretation Comments Blood Urea Nitrogen (test code = 3094-0) 50 7-26 H [facility] SouthCreatinine2018-08-01 08:20:00* Test Item Value Reference Range Interpretation Comments Creatinine (test code = 2160-0) 6.02 0.57-1.11 H [facility] SouthBUN/Creatinine Ndzqq4350-79-65 08:20:00* Test Item Value Reference Range Interpretation Comments BUN/Creatinine Ratio (test code = 3097-3) 8 6-25 [facility] SouthEstimat Glomerular Filtration Rate 2018-03-29 08:20:00* Test Item Value Reference Range Interpretation Comments Estimat Glomerular Filtration Rate (test code = 12637-9) 7 >60 L Ranges were taken from the National Kidney Disease Education Program and the [facility] Foundation literature.Reference ranges:60 or greater: Xhrxzw24-95 ( for 3 consecutive months): Chronic kidney disease 15 or less: Kidney failureTexas [facility] SouthGlucose Vesdz1133-50-79 08:20:00* Test Item Value Reference Range Interpretation Comments Glucose Level (test code = AGD5792) 108 74-118 [facility] SouthCalcium Hidlz6620-81-93 08:20:00* Test Item Value Reference Range Interpretation Comments Calcium Level (test code = 30032-8) 10.0 8.4-10.2 [facility] SouthMagnesium Bwvko9934-95-92 15:53:00* Test Item Value Reference Range Interpretation Comments Magnesium Level (test code = 97922-2) 1.8 1.3-2.1 [facility] SouthB-Type Natriuretic Abhxdhh5673-55-06 15:04:00* Test Item Value Reference Range Interpretation Comments B-Type Natriuretic Peptide (test code = 62267-9) 68.0 0-100 [facility] SouthLactic Acid Nwqyx0420-85-46 14:57:00* Test Item Value Reference Range Interpretation Comments Lactic Acid Level (test code = Lactic Acid Level) 12.2 4.5- 19.8 [facility] SouthTotal Xabwicocl5148-52-22 14:57:00* Test Item Value Reference Range Interpretation Comments Total Bilirubin (test code = 1975-2) 0.5 0.2-1.2 [facility] SouthAspartate Amino Transf (AST/SGOT) 2017-07-03 14:57:00* Test Item Value Reference Range Interpretation Comments Aspartate Amino Transf (AST/SGOT) (test code = Aspartate Amino Transf (AST/SGOT)) 21 5-34 [facility] SouthAlanine Aminotransferase (ALT/SGPT) 2017-07-03 14:57:00* Test Item Value Reference Range Interpretation Comments Alanine Aminotransferase (ALT/SGPT) (test code = 1742-6) 19 0-55 [facility] SouthTotal Dzsikjz1203-19-19 14:57:00* Test Item Value Reference Range Interpretation Comments Total Protein (test code = 2885-2) 7.4 6.5-8.1 [facility] SouthAlbumin2017-11-05 14:57:00* Test Item Value Reference Range Interpretation Comments Albumin (test code = 1751-7) 3.1 3.5-5.0 L [facility] SouthGlobulin2017-11-05 14:57:00* Test Item Value Reference Range Interpretation Comments Globulin (test code = 30941-0) 4.3 2.3-3.5 H [facility] SouthAlbumin/Globulin Rbhmz3423-49-95 14:57:00 * Test Item Value Reference Range Interpretation Comments Albumin/Globulin Ratio (test code = 1759-0) 0.7 0.8-2.0 L [facility] SouthAlkaline Vvwnvokkucu8879-24-49 14:57:00* Test Item Value Reference Range Interpretation Comments Alkaline Phosphatase (test code = 6768-6) 91 40-150 [facility] SouthLipase2017-11-05 14:57:00* Test Item Value Reference Range Interpretation Comments Lipase (test code = 3040-3) 35 8-78 [facility] SouthProthrombin Vdsz1391-52-25 14:47:00* Test Item Value Reference Range Interpretation Comments Prothrombin Time (test code = 5902-2) 13.8 11.9-14.5 [facility] SouthProthromb Time International Ratio 2017-07-03 14:47:00* Test Item Value Reference Range Interpretation Comments Prothromb Time International Ratio (test code = 6301-6) 1.01 Oral Anticoagulant Therapy INR Values:1. Low Intensity Therapy 1.5 - 2.02 . Moderate Intensity Therapy 2.0 - 3.03. High Intensity Therapy(1) 2.5 - 3. 54. High Intensity Therapy(2) 3.0 - 4.05. Panic Value INR > 5.0 [facility] SouthActivated Partial Thromboplast Time 2017-07-03 14:47:00* Test Item Value Reference Range Interpretation Comments Activated Partial Thromboplast Time (test code = 44528-3) 30.6 23.8-35.5 [facility] SouthUrine RMY5702-73-28 14:44:00* Test Item Value Reference Range Interpretation Comments Urine WBC (test code = 5821-4) 11-20 0-5 H [facility] SouthUrine EFK8099-47-32 14:44:00* Test Item Value Reference Range Interpretation Comments Urine RBC (test code = 12457-9) 11-20 0-5 H [facility] SouthUrine Swutxmva7023-26-02 14:44:00* Test Item Value Reference Range Interpretation Comments Urine Bacteria (test code = 36484-6) MODERATE NONE H [facility] SouthUrine Epithelial Lrjrn1968-34-57 14:44:00 * Test Item Value Reference Range Interpretation Comments Urine Epithelial Cells (test code = 95767-4) MODERATE NONE [facility] SouthUrine Dlshy4274-16-44 14:29:00* Test Item Value Reference Range Interpretation Comments Urine Color (test code = 5778-6) YELLOW YELLOW [facility] SouthUrine Ufmkchv9338-99-36 14:29:00* Test Item Value Reference Range Interpretation Comments Urine Clarity (test code = 73184-2) SL CLOUDY CLEAR [facility] SouthUrine Specific Frxgohg3324-94-51 14:29:00 * Test Item Value Reference Range Interpretation Comments Urine Specific [place] (test code = 5811-5) 1.020 1.010-1.02 5 [facility] SouthUrine uN3976-18-13 14:29:00* Test Item Value Reference Range Interpretation Comments Urine pH (test code = 54527-2) 5 5-7 [facility] SouthUrine Leukocyte Rtxeseut9196-62-40 14:29:00* Test Item Value Reference Range Interpretation Comments Urine Leukocyte Esterase (test code = 5799-2) 1+ NEGATIVE H [facility] SouthUrine Ddcbvdo4469-59-66 14:29:00* Test Item Value Reference Range Interpretation Comments Urine Nitrite (test code = 64636-0) NEGATIVE NEGATIVE [facility] SouthUrine Bhrkshe7926-55-93 14:29:00* Test Item Value Reference Range Interpretation Comments Urine Protein (test code = 5804-0) 3+ NEGATIVE H [facility] Glucose (UA)2017-07-03 14:29:00* Test Item Value Reference Range Interpretation Comments Urine Glucose (UA) (test code = 2349-9) 1+ NEGATIVE H [facility] Ocrwwwr8804-54-02 14:29:00* Test Item Value Reference Range Interpretation Comments Urine Ketones (test code = 29158-0) NEGATIVE NEGATIVE [facility] Mtlphhetfgsq7037-76-62 14:29:00* Test Item Value Reference Range Interpretation Comments Urine Urobilinogen (test code = 77944-9) 0.2 0.2-1 [facility] SouthUrine Kxbgvweov1398-20-64 14:29:00* Test Item Value Reference Range Interpretation Comments Urine Bilirubin (test code = 1978-6) 1+ NEGATIVE H [facility] SouthUrine Uzfpu0288-43-91 14:29:00* Test Item Value Reference Range Interpretation Comments Urine Blood (test code = 06834-6) 2+ NEGATIVE H [facility] Hzuimew5185-12-45 07:22:00* Test Item Value Reference Range Interpretation Comments Bedside Glucose (test code = 21137-6) 96 70-120 Meter ID: [id number] Medical CenterUrine Dqgsf4367-93-61 17:08:00* Test Item Value Reference Range Interpretation Comments Urine Mucus (test code = 8247-9) [facility]W R[facility]2017-[facility]09 12:03:004.3 [facility] HermannBLOOD BANK BDTDSZU7807-40-77 16:13:00Negative (10/28/16 10:13 AM) [facility] NekpfqjIDLEOOSFFSQI4127-75-02 16:13:0012.4[facility] HermannELECTROLYTES 2016-10-28 16:13:0012[facility] LnlmbpqEGCPWODSNPZX4690-86-35 16:13:0036[facility] KjdkcarWFCAMJSCNAXO6433-21-26 16:13:0095[facility] NwifizbCBWLVGQYHXFI8392-97-10 16:13:003.50[facility] VcfvinjIGYJDRZHMBMD9909-29-31 16:13:009.1[facility] KDONMTXGFQIL8011-34-54 16:13:0021[facility] HhhbvlfKRPYSJTMRCXU4146-10-53 16:13:00 4.4[facility] AuqyyhqOKKYUYYCAKJC0051-57-64 16:13:63325Dttahbdj [place] LKRALIYDXNIE2075-29-67 16:13:19806Mrmejfxh MimqplfTJLXBCJSXI5027-04-59 16:13:00 21.2[facility] QglqnwrYCYJQBPHHV0250-11-74 16:13:001.5[facility] HermannHEMATOLOGY 2016-10-28 16:13:004.2[facility] CvftdyxUGNIRHLBML8526-37-86 16:13:003.9[facility] NuvrzwbSEOVDCFAYA3753-63-91 16:13:007.5[facility] AnsbzycTYRAZJOKHS1132-94-85 16:13:000.2[facility] TqkfhcnMHONVBFGMK3237-75-63 16:13:001.4[facility] [place] WCWWMLHTNZ4125-73-23 16:13:000.5[facility] BbadgxwOIGPFLIGPM3926-67-97 16:13:000.1 [facility] XqqkafhKADJJYQELL4916-14-32 16:13:0065.9[facility] HermannHEMATOLOGY 2016-10-28 16:13:001.04[facility] JimouvuTFCUVJQFWQ0567-83-22 16:13:00* Test Item Value Reference Range Interpretation Comments PT (test code = PT) 13.8 s 12.0-14.7 [facility] QvfyoanUJQFAGQSVP5058-01-94 16:13:00* Test Item Value Reference Range Interpretation Comments PTT (test code = PTT) 30.0 s 22.9-35.8 [facility] TocjlqgIKCZVIDQMO5232-81-53 16:13:008.3[facility] HermannHEMATOLOGY 2016-10-28 16:13:0034.0[facility] JdstmdbQJEQHHMUCZ3659-59-01 16:13:0013.5[facility] EdmqncfKXOCGPOOAC0138-27-25 16:13:003.45[facility] SvcfhqmHDLSIQUCWF6471-32-62 16:13:0030.5[facility] WdpojtaKFYMDMPRPG2042-13-91 16:13:0010.4[facility] [place] DCCTVJKZRW6484-22-35 16:13:0088.5[facility] WlxcdbvJKFWRYFPEC5271-70-14 16:13:00* Test Item Value Reference Range Interpretation Comments MCH (test code = MCH) 30.1 pg 27.0-31.0 [facility] QjldgteTQVZXVJLMJ7383-38-13 16:13:34720Snlfiyan HermannHEMATOLOGY 2016-10-28 16:13:006.4[facility] IriokdkPVKOOOFSAIJP9931-67-39 12:54:475.0[facility] HermannCHEM MNCGC0342-84-45 21:43:0018[facility] HermannCHEM LLKOZ8797-27-49 21:43:007.9[facility] HermannCHEM OPPMS5859-08-72 21:43:0020[facility] HermannCHEM TBAPF3512-01-53 21:43:82631Degsduxy HermannCHEM JKIXX1967-88-72 21:43:004.8 [facility] HermannCHEM EXLMX2648-52-19 21:43:06638Iigafvec HermannCHEM PANEL 2015-11-17 21:43:002.45[facility] HermannCHEM BMTTN4052-37-67 21:43:0037[facility] HermannCHEM BDQKP5347-24-60 21:43:03616Pefyhged HermannCHEM HQDXR4967-90-19 21:43:0011.8[facility] CcakmhmRKQVIWKVMI2956-05-67 21:43:001.15[facility] [place] VHCAGCOXAK5903-66-13 21:43:00* Test Item Value Reference Range Interpretation Comments PT (test code = PT) 15.0 s 12.0-14.7 [facility] JalwlndNWPYZJILIU7839-06-06 21:43:0089.9[facility] HermannHEMATOLOGY 2015-11-17 21:43:008.5[facility] DpauywfNXOKBMDLBW5961-37-93 21:43:0033.1[facility] UufwotwFONBDTRGOY0881-17-82 21:43:0014.3[facility] JshrhinYLPDXYUITG6355-73-55 21:43:00* Test Item Value Reference Range Interpretation Comments MCH (test code = MCH) 29.7 pg 27.0-31.0 [facility] HzcreanJKHMFZUFFJ5878-19-54 21:43:99144Pbsrqlxe HermannHEMATOLOGY 2015-11-17 21:43:0027.1[facility] NxeexmtIIGQNNUZIA9750-05-56 21:43:003.01[facility] BpbligtZUNRWJMHRN7621-72-47 21:43:009.0[facility] EgbioasJOFVXKDQMD7634-02-38 21:43:005.6[facility] DplchjaZTHECWJHOE1328-15-79 21:43:00* Test Item Value Reference Range Interpretation Comments PTT (test code = PTT) 27.1 s 22.9-35.8 [facility] KsiifwnKOIEDNXWDU4470-87-09 21:43:000.1[facility] HermannHEMATOLOGY 2015-11-17 21:43:003.9[facility] CvnqiovTCTREMYTSU3120-21-17 21:43:000.1[facility] FjugzdtRRABGTXBAS5084-88-55 21:43:001.1[facility] PcjmzroNSRWJXGQTP4213-41-31 21:43:000.5[facility] WgxxbavUHHDMOZPKF5985-06-57 21:43:0018.8[facility] DQPAPPCUBC7544-74-40 21:43:001.4[facility] OgjxsptRETMWAVBCE2417-23-29 21:43:008.0 [facility] TykwirtJYEUPHBNCI5502-31-85 21:43:002.1[facility] HermannHEMATOLOGY 2015-11-17 21:43:0069.7[facility] HermannCHEM VWVXA9819-28-88 14:14:99200Iqbtvxuf DmtvhulLKXKSMNXQBRI7520-30-67 14:14:005.4[facility] HermannCHEM JHZHE3503-17-37 19:57:0050[facility] HermannCHEM XTSOJ7088-05-75 19:57:0013[facility] HermannCHEM ITFWV1370-69-91 19:57:003.3[facility] HermannCHEM JZKOV4139-75-36 19:57:22262 [facility] HermannCHEM HTJJN9384-11-96 19:57:75473Rmqrwphr HermannCHEM PANEL 2015-03-17 19:57:004.7[facility] HermannCHEM VTDSV7725-41-65 19:57:33521Nbumfply HermannCHEM WFGNC6380-23-02 19:57:009.2[facility] HermannCHEM FINMG0663-81-80 19:57:0020[facility] HermannCHEM MKLUG1943-77-70 19:57:0015.7[facility] [place] QXUBJORZMX2407-35-10 19:57:00* Test Item Value Reference Range Interpretation Comments PTT (test code = PTT) 34.3 s 22.9-35.8 [facility] JufxihcUULKMAAONV2965-75-66 19:57:001.16[facility] HermannHEMATOLOGY 2015-03-17 19:57:00* Test Item Value Reference Range Interpretation Comments PT (test code = PT) 14.9 s 12.0-14.7 [facility] GxomacxTJDJDDFYMJ2287-71-71 19:57:009.0[facility] HermannHEMATOLOGY 2015-03-17 19:57:82073Owrigiri BnjyxrjEUCWXYWSOK2555-79-81 19:57:0027.7[facility] WlgtwmoJGLHRFBKQV8863-34-05 19:57:0087.9[facility] AyjbojhUBVXSCTCNO8885-38-65 19:57:003.15[facility] CrxwrabNZLTDBCCRZ1901-28-46 19:57:009.3[facility] MNFLWHMNCU8489-79-77 19:57:0033.7[facility] GewboplZRQRURSVBE7551-19-66 19:57:00 14.0[facility] BhbdhzqHHQLPECPVJ4354-53-21 19:57:00* Test Item Value Reference Range Interpretation Comments MCH (test code = MCH) 29.6 pg 27.0-31.0 [facility] HyaegrjNARFSIPOAF3867-69-98 19:57:005.4[facility] HermannHEMATOLOGY 2015-03-17 19:57:001.2[facility] LojeyatPIADCMJNOK5060-10-42 19:57:003.4[facility] QqejvurQUJQZFWKNM5747-46-27 19:57:001.4[facility] UlyasmmPHTBDFRIQX3353-88-32 19:57:003.0[facility] FoarzrwQIMNXJNCRO9904-63-70 19:57:000.1[facility] [place] TTFZSZERWD0440-77-19 19:57:000.6[facility] DyiijskOLCOMFAQLW9769-73-33 19:57:000.2 [facility] JefuvyeXNHCFJWZBG4015-12-06 19:57:0010.9[facility] HermannHEMATOLOGY 2015-03-17 19:57:0062.7[facility] ZmogtjuZCGVMXJWUE4242-43-82 19:57:0022.0[facility] HermannCT BRAIN WO [place] [address] Patient Name: MIGUEL FONTENOT MR #: [id number] : 1935 Age/Sex: 82/F Req #: [id number] Adm Physician: Ordered by: LOY SO PLANT SAFETY ENGINEER Report #: [id number] Location: ER Room/Bed: Procedure: [id number] CT/CT BRAIN WO Exam Da te: 07/03/17 [...] Dictated By: SEVERIANO DE LA ROSA MD 1352 Transcribed By: YAQUELIN on 07/03/17 1356 COPY TO: Corey SO NP CHEST SINGLE (PORTABLE) [place] [address] Patient Name: MIGUEL FONTENOT MR #: [id number] : 1935 Age/Sex: 82/F Req #: [id number] Adm Physician: Ordered by: LOY SO NP Report #: [id number] Location: ER Room/Bed: Procedure: [id number] DX/CHEST SINGLE (PORTAB LE) Exam Date: 07/03/17 [...] 2:12 PM Dictated By: SISI RODRIGUEZ MD 141 COPY TO: MARLA SO PLANT SAFETY ENGINEER MRI BRAIN [place] [address] Patient Name: MIGUEL FONTENOT MR #: [id number] : 1935 Age/Sex: 82/F Req #: [id number] Adm Physician: RODNEY ROSADO MD Ordered by: RODNEY ROSADO MD Report #: [id number] Location: [facility] Room/Bed: [facility] 183-1 Procedure: 1017- 0003 MRI/MRI BRAIN WO Exam [...] TO: RODNEY ROSADO MD CT BRAIN WO [place] [address] Patient Name: MIGUEL FONTENOT MR #: [id number] : 1935 Age/Sex: 82/F [facility] #: [id number] Req #: [id number] Adm Physician: Ordered by: PATRICK DAMON MD Report #: [id number] Location: Room/Bed: Procedure: [id number] CT/CT BRAIN WO Exam Date: 06/13/17 Exam [...] TO: PATRICK DAMON MD CT BRAIN WO [place] [address] Patient Name: MIGUEL FONTENOT MR #: [id number] : 1935 Age/Sex: 81/F Req #: [id number] Adm Physician: Ordered by: PATRICK DAMON MD Report #: [id number] Location: ER Room/Bed: Procedure: [id number] CT/CT BRAIN WO Exam Date: Exam Time: [...] ABARCA MD 1557 Transcribed By: YAQUELIN on 05/15/171556 COPY TO: PATRICK DAMON MD
[2020-07-25 14:28] VITALS: BP 146/52
--- NOTE | 2020-07-25 14:31 | Emergency Department Note ---
History of Present Illnes History of Present Illness Chief Complaint: Genitourinary History of Present Illness This is a 85 year old female Chief Complaint Comment Patient in from home with reports of suspected rectal bleeding that started Tuesday. Patient reports that she has had this before and has had multiple colonoscopies that have not shown anything. Patient was seen at [place] Tuesday and was admitted for a couple of days, tests were done and she was discharged. Patient is a peritoneal dialysis patient. Patient then states she has had off and on rectal bleeding for years. Historian: Patient Arrival Mode: Car Propagation Manager Required: No Onset (how long ago): year(s) Location: rectal Quality: bleeding Radiation: Reports non-radiation Severity: mild Onset quality: unable to specify Duration (how long): month(s) Timing of current episode: intermittent Progression: unchanged Chronicity: chronic Context: Denies recent illness, Denies recent surgery Relieving factors: none Exacerbating factors: none Associated symptoms: Reports denies other symptoms Treatments prior to arrival: none Past Medical/Family History Physician Review I have reviewed the patient's past medical and family history. Any updates have been documented here. Past Medical History Recent Fever: No Clinical Suspicion of Infectio: No New/Unexplained Change in Ment: No Past Medical History: Hypertension, TIA, Hypothyroidism, UTI's, ESRD, Anemia, Hyperlipedemia, Chronic Kidney Disease, Osteoarthritis Other Medical History: PERITONEAL DIALYSIS Past Surgical History: Appendectomy, Hysterectomy Other Surgery: PERITONEAL DIALYSIS ACCESS CATARACT Other Last Tetanus: UNKNOWN Review of Systems Review of Systems Constitutional: Reports no symptoms EENTM: Reports no symptoms Cardiovascular: Reports no symptoms Respiratory: Reports no symptoms Gastrointestinal: Reports as per HPI Genitourinary: Reports no symptoms Musculoskeletal: Reports no symptoms Integumentary: Reports no symptoms Neurological: Reports no symptoms Psychological: Reports no symptoms Endocrine: Reports no symptoms Hematological/Lymphatic: Reports no symptoms Physical Exam Related Data Allergies: Coded Allergies: lansoprazole (Verified Allergy, Intermediate, ITCHING, 04/22/20) Triage Vital Signs Vital Signs Date Time Temp Pulse Resp B/P (MAP) Pulse Ox O2 Delivery O2 Flow Rate FiO2 07/25/20 13:09 97.3 86 17 160/97 100 Room Air Vital signs reviewed: Yes Physical Exam CONSTITUTIONAL Constitutional: Present well-developed, Present well-nourished HENT HENT: Present normocephalic, Present atraumatic, Present oropharynx clear/moist, Present nose normal HENT L/R: Present left ext ear normal, Present right ext ear normal EYES Eyes: Reports PERRL, Reports conjunctivae normal NECK Neck: Present ROM normal PULMONARY Pulmonary: Present effort normal, Present breath sounds normal CARDIOVASCULAR Cardiovascular: Present regular rhythm, Present heart sounds normal, Present capillary refill normal, Present normal rate GASTROINTESTINAL Abdominal: Present soft, Present nontender, Present bowel sounds normal, Present other (External hemorrhoid, no bleeding) GENITOURINARY Genitourinary: Present exam deferred SKIN Skin: Present warm, Present dry MUSCULOSKELETAL Musculoskeletal: Present ROM normal NEUROLOGICAL Neurological: Present alert, Present oriented x 3, Present no gross motor or sensory deficits PSYCHOLOGICAL Psychological: Present mood/affect normal, Present judgement normal Results Laboratory Result Diagram: 07/25/20 1331 07/25/20 1331 Laboratory Laboratory Tests Test 07/25/20 13:31 White Blood Count 6.46 x10e3/uL (4.8-10.8) Red Blood Count 5.45 x10e6/uL (3.6-5.1) Hemoglobin 16.0 g/dL (12.0-16.0) Hematocrit 50.6 % (34.2-44.1) Mean Corpuscular Volume 92.8 fL (81-99) Mean Corpuscular Hemoglobin 29.4 pg (28-32) Mean Corpuscular Hemoglobin Concent 31.6 g/dL (31-35) Red Cell Distribution Width 13.3 % (11.7-14.4) Platelet Count 103 x10e3/uL (140-360) Neutrophils (%) (Auto) 71.4 % (38.7-80.0) Lymphocytes (%) (Auto) 16.9 % (18.0-39.1) Monocytes (%) (Auto) 7.6 % (4.4-11.3) Eosinophils (%) (Auto) 3.4 % (0.0-6.0) Basophils (%) (Auto) 0.5 % (0.0-1.0) Neutrophils # (Auto) 4.6 (2.1-6.9) Lymphocytes # (Auto) 1.1 (1.0-3.2) Monocytes # (Auto) 0.5 (0.2-0.8) Eosinophils # (Auto) 0.2 (0.0-0.4) Basophils # (Auto) 0.0 (0.0-0.1) Absolute Immature Granulocyte (auto 0.01 x10e3/uL (0-0.1) Sodium Level 143 mmol/L (136-145) Potassium Level 3.7 mmol/L (3.5-5.1) Chloride Level 104 mmol/L (98-107) Carbon Dioxide Level 28 mmol/L (22-29) Anion Gap 14.7 mmol/L (8-16) Blood Urea Nitrogen 39 mg/dL (7-26) Creatinine 5.81 mg/dL (0.57-1.11) Estimat Glomerular Filtration Rate 7 ML/MIN (60-) BUN/Creatinine Ratio 7 (6-25) Glucose Level 100 mg/dL (74-118) Calcium Level 10.8 mg/dL (8.4-10.2) Total Bilirubin 0.3 mg/dL (0.2-1.2) Aspartate Amino Transf (AST/SGOT) 21 IU/L (5-34) Alanine Aminotransferase (ALT/SGPT) 16 IU/L (0-55) Alkaline Phosphatase 91 IU/L (40-150) Total Protein 7.5 g/dL (6.5-8.1) Albumin < 0.4 g/dL (3.5-5.0) Globulin 7.1 g/dL (2.3-3.5) Albumin/Globulin Ratio 0.1 (0.8-2.0) Assessment & Plan Medical Decision Making MDM 85-year-old female past medical history significant for peritoneal dialysis presents emergency department for rectal bleeding. States this is been off-and-on for the last few years. She is recently worked up at a short with a negative workup. Examination shows external hemorrhoids with no active bleeding. workup shows no anemia. Diagnosis favors external hemorrhoids causing bl eeding. Instructed her to use MiraLAX until she has soft stools and follow up with Dr. Jimenez and [facility]. 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 01/31/20 Reported Medications Ondansetron Hcl* (ZOFRAN*) 4 Mg Tablet, 4 MG PO PRN 01/29/20 Alprazolam (ALPRAZOLAM) 0.25 Mg Tab.rapdis, 0.25 MG PO PRN 01/29/20 Ubidecarenone (Coenzyme Q-10) 50 Mg Capsule, 100 MG PO DAILY 01/29/20 Mirtazapine (MIRTAZAPINE) 7.5 Mg Tablet, 7.5 MG PO HS, TAB 01/29/20 Famotidine (FAMOTIDINE) 20 Mg Tab, 20 MG PO DAILY, #30 TAB 01/29/20 Calcitriol (CALCITRIOL) 0.25 Mcg Capsule, 0.25 MG PO DAILY, #30 TAB 01/29/20 [proliva] No Conflict Check, 160 MG PO q6 months 01/29/20 Sevelamer Carbonate (RENVELA) 0.8 Gm Powd.pack 11/12/18 Cinacalcet Hcl (SENSIPAR) 30 Mg Tablet, 60 MG PO 2100, #30 TAB 11/12/18 Pantoprazole Sodium* (PROTONIX) 40 Mg Tablet.dr, 40 MG PO DAILY 08/21/18 Terazosin Hcl (TERAZOSIN HCL) 1 Mg Capsule, 2 MG PO HS, #30 CAP 05/15/18 Fexofenadine Hcl (SADIQ ALLERGY) 180 Mg Tablet, 160 MG PO PRN PRN for ALLERGY 03/31/14 Aspirin (ASPIR 81) 81 Mg Tablet.dr, 81 MG PO HS 03/31/14 Atorvastatin Calcium (ATORVASTATIN CALCIUM) 10 Mg Tablet, 20 MG PO HS 05/13/13 Metoprolol Succinate (METOPROLOL SUCCINATE) 50 Mg Tab.er.24h, 50 MG PO HS 05/13/13 Levothyroxine Sodium (LEVOTHROID) 75 Mcg Tablet, 75 MCG PO DAILY 05/13/13 Amlodipine Besylate (AMLODIPINE BESYLATE) 5 Mg Tablet, 5 MG PO DAILY 05/13/13 CLAU MACIAS MD Jul 25, 2020 14:31
== END 2020-07-25 14:32 | disposition home or self-care (01) ==
LOC: ER 13:40
DX: K64.4 Residual hemorrhoidal skin tags (principal); I12.0 Hypertensive chronic kidney disease with stage 5 chronic kidney disease or end stage renal disease; N18.6 End stage renal disease; Z99.2 Dependence on renal dialysis; Z86.73 Personal history of transient ischemic attack (TIA), and cerebral infarction without residual deficits; E03.9 Hypothyroidism, unspecified
CPT/HCPCS: 36415; 80053; 85025; 99283

== ENCOUNTER 2020-08-27 12:55 | Observation (INO) | payer MEDICARE ==
[~2020-08-27] VITALS: Ht 165.1 cm; Wt 45.4 kg
[2020-08-27 13:43] LABS: BASOPHILS % 0.5 % (0.0-1.0); EOSINOPHILS # (AUTO) 0.1 (0.0-0.4); EOSINOPHILS % 1.7 % (0.0-6.0); HEMOGLOBIN 13.5 g/dL (12.0-16.0); LYMPHOCYTES # (AUTO) 1.1 (1.0-3.2); LYMPHOCYTES % 14.7 % (18.0-39.1); MEAN CORPUSCULAR HEMOGLOBIN 28.8 pg (28-32); MEAN CORPUSCULAR HGB CONC 32.9 g/dL (31-35); MEAN CORPUSCULAR VOLUME 87.4 fL (81-99); MONOCYTES # (AUTO) 0.7 (0.2-0.8); MONOCYTES % 8.5 % (4.4-11.3); NEUTROPHILS # (AUTO) 5.8 (2.1-6.9); NEUTROPHILS % 74.3 % (38.7-80.0); PLATELET COUNT 163 x10e3/uL (140-360); RED BLOOD COUNT 4.69 x10e6/uL (3.6-5.1); RED CELL DISTRIBUTION WIDTH 13.8 % (11.7-14.4)
[2020-08-27 13:50] LABS: INR 0.98; PROTHROMBIN TIME 13.5 seconds (11.9-14.5)
[2020-08-27 13:51] LABS: PARTIAL THROMBOPLASTIN TIME 32.3 seconds (23.8-35.5)
[2020-08-27 14:01] LABS: ALBUMIN 2.7 g/dL (3.5-5.0); ALBUMIN/GLOBULIN RATIO 0.6 (0.8-2.0); ANION GAP 19.1 mmol/L (8-16); CALCIUM 8.5 mg/dL (8.4-10.2); CREATININE, SERUM 6.23 mg/dL (0.57-1.11); MAGNESIUM 1.9 MG/DL (1.3-2.1); POTASSIUM 3.1 mmol/L (3.5-5.1)
[2020-08-27 14:08] LABS: CREATINE KINASE MB 1.4 ng/mL (0-5.0)
[2020-08-27] MEDS ORDERED: MORPHINE SULFATE INJ 2 MG/ML SYR IV PRN ×2 (15:00→18:45)
[2020-08-27] MEDS ORDERED: NITROGLYCERIN 0.4 MG SUBL SL PRN ×2 (15:00→20:45)
[2020-08-27] MEDS ORDERED: ONDANSETRON HCL INJ 2MG/ML 2ML 2 MG/ML VIAL IV PRN (15:00)
[2020-08-27 17:13] VITALS: BP 146/51
[2020-08-27 17:35] VITALS: BP 146/51
[2020-08-27] MEDS ORDERED: HYDRALAZINE HCL 20 MG/ML VIAL IV PRN (18:45)
[2020-08-27] MEDS ORDERED: ALPRAZOLAM 0.25 MG TAB PO SCH (18:45)
[2020-08-27] MEDS ORDERED: ACETAMINOPHEN 325 MG TAB PO PRN (18:45)
[2020-08-27 20:00] VITALS: BP 127/42
[2020-08-27] MEDS ORDERED: WARFARIN SOD 5 MG TAB PO SCH (20:00)
[2020-08-27 21:00] VITALS: BP 127/62
[2020-08-27] MEDS ORDERED: TERAZOSIN HCL 1 MG CAP PO SCH (21:00)
[2020-08-27] MEDS ORDERED: METOPROLOL SUCCINATE 50 MG TAB XL PO SCH (21:00)
[2020-08-27] MEDS ORDERED: CINACALCET 30 MG TAB PO SCH (21:00)
[2020-08-27] MEDS ORDERED: MIRTAZAPINE 15 MG TAB PO SCH (21:00)
[2020-08-27] MEDS ORDERED: ATORVASTATIN 20 MG TAB PO SCH (21:00)
[2020-08-27] MEDS ORDERED: ASPIRIN 81 MG CHEW TAB PO SCH (21:00)
[2020-08-27 21:30] LABS: CREATINE KINASE MB 1.1 ng/mL (0-5.0)
[2020-08-28] VITALS: BP 116/89
[2020-08-28] MEDS ORDERED: PLAVIX75 MG PO (01:56)
[2020-08-28] MEDS ORDERED: ONDANSETRON ODT8 MG PO (01:56)
[2020-08-28] MEDS ORDERED: PROLIA60 MG/1 ML (01:56)
[2020-08-28] MEDS ORDERED: LEVOTHYROXINE SODIUM 75 MCG TAB PO SCH ×2 (06:00→09:00)
[2020-08-28 06:30] LABS: BASOPHILS % 0.7 % (0.0-1.0); EOSINOPHILS # (AUTO) 0.2 (0.0-0.4); EOSINOPHILS % 3.5 % (0.0-6.0); HEMATOCRIT 33.6 % (34.2-44.1); HEMOGLOBIN 11.1 g/dL (12.0-16.0); LYMPHOCYTES # (AUTO) 1.3 (1.0-3.2); LYMPHOCYTES % 21.9 % (18.0-39.1); MEAN CORPUSCULAR HEMOGLOBIN 28.8 pg (28-32); MONOCYTES # (AUTO) 0.7 (0.2-0.8); MONOCYTES % 11.3 % (4.4-11.3); NEUTROPHILS # (AUTO) 3.6 (2.1-6.9); NEUTROPHILS % 62.3 % (38.7-80.0); PLATELET COUNT 130 x10e3/uL (140-360); RED BLOOD COUNT 3.86 x10e6/uL (3.6-5.1); RED CELL DISTRIBUTION WIDTH 13.7 % (11.7-14.4)
[2020-08-28 06:55] LABS: INR 1.05; PROTHROMBIN TIME 14.2 seconds (11.9-14.5)
[2020-08-28 07:02] LABS: ALBUMIN/GLOBULIN RATIO 0.6 (0.8-2.0); ANION GAP 18.2 mmol/L (8-16); CALCIUM 7.5 mg/dL (8.4-10.2); CREATININE, SERUM 6.41 mg/dL (0.57-1.11); POTASSIUM 3.2 mmol/L (3.5-5.1)
[2020-08-28 07:11] LABS: THYROID STIMULATING HORMONE 0.947 uIU/mL (0.350-4.940)
[2020-08-28 07:19] LABS: CHOL/HDL RATIO 4.5 (3.0-3.6)
[2020-08-28 07:27] LABS: CREATINE KINASE MB 0.9 ng/mL (0-5.0)
[2020-08-28 08:17] VITALS: BP 123/48
[2020-08-28 08:45] VITALS: BP 123/48
[2020-08-28] MEDS ORDERED: AMLODIPINE BESYLATE 5 MG TAB PO SCH (09:00)
[2020-08-28] MEDS ORDERED: CALCITRIOL 0.25 MCG CAP PO SCH (09:00)
[2020-08-28] MEDS ORDERED: FAMOTIDINE 20 MG TAB PO SCH (09:00)
[2020-08-28] MEDS ORDERED: ASPIRIN 81 MG ENTERIC COATED PO SCH ×2 (09:00→21:00)
[2020-08-28] MEDS ORDERED: POTASSIUM CHLORIDE 20 MEQ TAB CR PO SCH (10:00)
[2020-08-28] MEDS ORDERED: SODIUM BICARBONATE 650 MG TAB PO SCH (10:00)
[2020-08-28] MEDS ORDERED: CLOPIDOGREL BISULFATE 75 MG TAB PO SCH (11:45)
[2020-08-28] MEDS ORDERED: POTASSIUM CHLORIDE 10MEQ EA PO ONE (12:00)
[2020-08-28 12:55] VITALS: BP 125/37
[2020-08-28] MEDS ORDERED: ONDANSETRON HCL 4 MG ORAL DISINTEGRATING TAB PO PRN (13:00)
[2020-08-28] MEDS ORDERED: TERAZOSIN HCL 1 MG CAP PO SCH (21:00)
== END 2020-08-28 14:17 | disposition home or self-care (01) ==
LOC: ER 13:14 → ERHOLD 16:49 → MED/SURG2 16:51
PROVIDERS: ADMIT Internal Medicine; ATTEND Internal Medicine
DX: R07.9 Chest pain, unspecified (principal); I12.0 Hypertensive chronic kidney disease with stage 5 chronic kidney disease or end stage renal disease; E11.22 Type 2 diabetes mellitus with diabetic chronic kidney disease; N18.6 End stage renal disease; Z79.899 Other long term (current) drug therapy; I25.10 Atherosclerotic heart disease of native coronary artery without angina pectoris; E03.9 Hypothyroidism, unspecified; Z86.73 Personal history of transient ischemic attack (TIA), and cerebral infarction without residual deficits; Z20.828 Contact with and (suspected) exposure to other viral communicable diseases; E78.5 Hyperlipidemia, unspecified; E87.2 Acidosis; E87.6 Hypokalemia; E87.1 Hypo-osmolality and hyponatremia
CPT/HCPCS: 36415 ×2; 71045; 80053 ×2; 80061; 82550 ×2; 82553 ×2; 83735; 83880; 84443; 84484 ×2; 85025 ×2; 85379; 85610 ×2; 85730; 93005 ×2; 93306; 99284; G0378 ×2; J2270; U0002

== ENCOUNTER 2020-12-19 09:59 | Inpatient (IN) | payer MEDICARE ==
[~2020-12-19] VITALS: Ht 170.2 cm; Wt 45.5 kg
[~2020-12-19 09:59] MED LIST changes: +ONDANSETRON ODT8 MG PO; +PLAVIX75 MG PO; +PROLIA60 MG/1 ML
[2020-12-19 10:59] LABS: BASOPHILS # (AUTO) 0.1 (0.0-0.1); BASOPHILS % 0.9 % (0.0-1.0); EOSINOPHILS # (AUTO) 0.2 (0.0-0.4); EOSINOPHILS % 3.2 % (0.0-6.0); HEMATOCRIT 41.5 % (34.2-44.1); HEMOGLOBIN 13.4 g/dL (12.0-16.0); LYMPHOCYTES % 14.2 % (18.0-39.1); MEAN CORPUSCULAR HEMOGLOBIN 28.6 pg (28-32); MEAN CORPUSCULAR HGB CONC 32.3 g/dL (31-35); MEAN CORPUSCULAR VOLUME 88.7 fL (81-99); MONOCYTES # (AUTO) 0.5 (0.2-0.8); MONOCYTES % 7.7 % (4.4-11.3); NEUTROPHILS # (AUTO) 5.1 (2.1-6.9); NEUTROPHILS % 73.7 % (38.7-80.0); PLATELET COUNT 102 x10e3/uL (140-360); RED BLOOD COUNT 4.68 x10e6/uL (3.6-5.1); RED CELL DISTRIBUTION WIDTH 13.5 % (11.7-14.4)
[2020-12-19 11:21] LABS: ALBUMIN/GLOBULIN RATIO 0.7 (0.8-2.0); ANION GAP 17.6 mmol/L (8-16); CALCIUM 10.7 mg/dL (8.4-10.2); CREATININE, SERUM 7.03 mg/dL (0.57-1.11); POTASSIUM 4.6 mmol/L (3.5-5.1)
[2020-12-19] MEDS ORDERED: GENTAMICIN 120MG/NS 100ML 100 ML IV ONE (12:00)
[2020-12-19] MEDS ORDERED: VANCOMYCIN 1GM/NS 250 ML 250 ML IV ONE (12:00)
[2020-12-19 12:03] LABS: INR 0.95; PROTHROMBIN TIME 13.3 seconds (11.9-14.5)
[2020-12-19] MEDS ORDERED: SODIUM CHLORIDE 0.9% 250ML 250 ML ONE (12:53)
[2020-12-19] MEDS ORDERED: HEPARIN SOD (PORCINE) 1000 UNIT/ML SDV ONE (14:16)
[2020-12-19] MEDS ORDERED: LIDOCAINE HCL 1% LOCAL INJ 20 ML VIAL ONE (14:22)
[2020-12-19 15:06] VITALS: BP 188/84
[2020-12-19 16:16] VITALS: BP 188/84
[2020-12-19 16:17] VITALS: BP 188/61
[2020-12-19] MEDS ORDERED: SODIUM CHLORIDE 0.9% 1000ML 2,000 ML ONE (17:44)
[2020-12-19] MEDS ORDERED: HEPARIN SOD (PORCINE) 1000 UNIT/ML SDV IV PRN (18:00)
[2020-12-19] MEDS ORDERED: ALBUMIN 25% 12.5GM 0.25 GM/ML BTL IV PRN (18:00)
[2020-12-19] MEDS ORDERED: SODIUM CHLORIDE 0.9% 1000ML 2,000 ML IV PRN (18:00)
[2020-12-19] MEDS ORDERED: SODIUM CHLORIDE 0.9% 250ML 500 ML IV PRN (18:00)
[2020-12-19 20:00] VITALS: BP 166/70
[2020-12-19 22:00] VITALS: BP 166/70
[2020-12-20] VITALS (7 sets, daily range): BP systolic 110–169; BP diastolic 52–107
[2020-12-20 05:15] LABS: BASOPHILS % 0.8 % (0.0-1.0); EOSINOPHILS # (AUTO) 0.3 (0.0-0.4); EOSINOPHILS % 5.3 % (0.0-6.0); HEMATOCRIT 37.2 % (34.2-44.1); HEMOGLOBIN 12.1 g/dL (12.0-16.0); LYMPHOCYTES % 21.3 % (18.0-39.1); MEAN CORPUSCULAR HEMOGLOBIN 28.5 pg (28-32); MEAN CORPUSCULAR HGB CONC 32.5 g/dL (31-35); MEAN CORPUSCULAR VOLUME 87.7 fL (81-99); MONOCYTES # (AUTO) 0.6 (0.2-0.8); MONOCYTES % 11.7 % (4.4-11.3); NEUTROPHILS % 60.7 % (38.7-80.0); PLATELET COUNT 83 x10e3/uL (140-360); RED BLOOD COUNT 4.24 x10e6/uL (3.6-5.1); RED CELL DISTRIBUTION WIDTH 13.4 % (11.7-14.4)
[2020-12-20 05:37] LABS: ALBUMIN 2.5 g/dL (3.5-5.0); ALBUMIN/GLOBULIN RATIO 0.7 (0.8-2.0); ANION GAP 12.2 mmol/L (8-16); CALCIUM 9.5 mg/dL (8.4-10.2); CREATININE, SERUM 4.79 mg/dL (0.57-1.11); POTASSIUM 4.2 mmol/L (3.5-5.1)
[2020-12-20] MEDS ORDERED: SODIUM CHLORIDE 0.9% 500ML 500 ML ONE (06:59)
[2020-12-20] MEDS ORDERED: BUPIVACAINE HCL 0.5% INJ 30 ML VIAL INJ ONE (07:20)
[2020-12-20] MEDS ORDERED: HYDROCODONE/APAP 5MG-325MG TAB PO PRN (07:45)
[2020-12-20] MEDS ORDERED: POVIDONE IODINE 0.05% 0.05 % ML PO ONE (13:00)
[2020-12-20] MEDS ORDERED: SEVOFLURANE INHAL SOLN 250 ML PEN BTL ONE (13:00)
[2020-12-20] MEDS ORDERED: PROPOFOL IV EMULSION 10 MG/ML 20 ML VIAL ONE (13:00)
[2020-12-20] MEDS ORDERED: LIDOCAINE HCL 2% LOCAL INJ 5 ML SDV VIAL INJ ONE (13:00)
[2020-12-21] VITALS (9 sets, daily range): BP systolic 137–183; BP diastolic 46–73
[2020-12-21] MEDS ORDERED: ACETAMINOPHEN 325 MG TAB PO PRN (01:00)
[2020-12-21] MEDS ORDERED: ONDANSETRON HCL INJ 2MG/ML 2ML 2 MG/ML VIAL IV PRN (01:00)
[2020-12-21] MEDS ORDERED: HYDRALAZINE HCL 20 MG/ML VIAL IV PRN (01:00)
[2020-12-21 05:48] LABS: BASOPHILS % 0.8 % (0.0-1.0); EOSINOPHILS # (AUTO) 0.3 (0.0-0.4); EOSINOPHILS % 5.8 % (0.0-6.0); HEMATOCRIT 38.8 % (34.2-44.1); HEMOGLOBIN 12.3 g/dL (12.0-16.0); LYMPHOCYTES # (AUTO) 1.4 (1.0-3.2); LYMPHOCYTES % 29.2 % (18.0-39.1); MEAN CORPUSCULAR HEMOGLOBIN 28.3 pg (28-32); MEAN CORPUSCULAR HGB CONC 31.7 g/dL (31-35); MEAN CORPUSCULAR VOLUME 89.2 fL (81-99); MONOCYTES # (AUTO) 0.5 (0.2-0.8); MONOCYTES % 11.2 % (4.4-11.3); NEUTROPHILS # (AUTO) 2.6 (2.1-6.9); NEUTROPHILS % 52.8 % (38.7-80.0); PLATELET COUNT 87 x10e3/uL (140-360); RED BLOOD COUNT 4.35 x10e6/uL (3.6-5.1); RED CELL DISTRIBUTION WIDTH 13.2 % (11.7-14.4)
[2020-12-21 06:32] LABS: ANION GAP 12.1 mmol/L (8-16); CALCIUM 9.7 mg/dL (8.4-10.2); CREATININE, SERUM 4.25 mg/dL (0.57-1.11); PHOSPHORUS 4.6 MG/DL (2.3-4.7); POTASSIUM 4.1 mmol/L (3.5-5.1)
[2020-12-21] MEDS: FAMOTIDINE 20 MG TAB PO SCH (09:00)
[2020-12-21] MEDS ORDERED: MELATONIN 5 MG TABLET PO PRN (09:45)
[2020-12-21] MEDS: MIRTAZAPINE 15 MG TAB PO SCH (21:00)
[2020-12-21] MEDS: TERAZOSIN HCL 1 MG CAP PO SCH (21:00)
[2020-12-21] MEDS: CINACALCET 30 MG TAB PO SCH (21:00)
[2020-12-21] MEDS: METOPROLOL SUCCINATE 50 MG TAB XL PO SCH (21:00)
[2020-12-21] MEDS: ATORVASTATIN 10 MG TAB PO SCH (21:00)
[2020-12-22] VITALS (9 sets, daily range): BP systolic 153–189; BP diastolic 53–72
[2020-12-22 05:10] LABS: BASOPHILS # (AUTO) 0.1 (0.0-0.1); BASOPHILS % 1.1 % (0.0-1.0); EOSINOPHILS # (AUTO) 0.3 (0.0-0.4); EOSINOPHILS % 5.3 % (0.0-6.0); HEMATOCRIT 37.6 % (34.2-44.1); LYMPHOCYTES # (AUTO) 1.4 (1.0-3.2); LYMPHOCYTES % 24.9 % (18.0-39.1); MEAN CORPUSCULAR HEMOGLOBIN 28.5 pg (28-32); MEAN CORPUSCULAR HGB CONC 31.9 g/dL (31-35); MEAN CORPUSCULAR VOLUME 89.3 fL (81-99); MONOCYTES # (AUTO) 0.6 (0.2-0.8); MONOCYTES % 10.6 % (4.4-11.3); NEUTROPHILS # (AUTO) 3.3 (2.1-6.9); NEUTROPHILS % 57.9 % (38.7-80.0); PLATELET COUNT 75 x10e3/uL (140-360); RED BLOOD COUNT 4.21 x10e6/uL (3.6-5.1); RED CELL DISTRIBUTION WIDTH 13.2 % (11.7-14.4)
[2020-12-22 05:21] LABS: ALBUMIN 2.6 g/dL (3.5-5.0); ALBUMIN/GLOBULIN RATIO 0.8 (0.8-2.0); ANION GAP 14.6 mmol/L (8-16); CALCIUM 9.8 mg/dL (8.4-10.2); CREATININE, SERUM 5.81 mg/dL (0.57-1.11); POTASSIUM 4.6 mmol/L (3.5-5.1)
[2020-12-22] MEDS: LEVOTHYROXINE SODIUM 75 MCG TAB PO SCH (05:41)
[2020-12-22] MEDS ORDERED: ONDANSETRON HCL 4 MG ORAL DISINTEGRATING TAB PO PRN (07:15)
[2020-12-22] MEDS: CALCITRIOL 0.25 MCG CAP PO SCH (08:21)
[2020-12-22] MEDS: FAMOTIDINE 20 MG TAB PO SCH (08:21)
[2020-12-22] MEDS: PANTOPRAZOLE SOD 40 MG TABEC PO SCH (08:21)
[2020-12-22] MEDS: NIFEDIPINE CR 30 MG TAB PO SCH ×2 (09:00→16:45)
[2020-12-22] MEDS ORDERED: AMLODIPINE BESYLATE 5 MG TAB PO SCH (09:00)
[2020-12-22] MEDS ORDERED: MIDAZOLAM HCL 2 MG/2 ML VIAL ONE (14:31)
[2020-12-22] MEDS ORDERED: FENTANYL CITRATE/PF 100MCG/2 ML INJ ONE (14:31)
[2020-12-22] MEDS ORDERED: HEPARIN SOD (PORCINE) 1000 UNIT/ML SDV ONE (14:31)
[2020-12-22] MEDS ORDERED: CEFAZOLIN SOD 1 GM/NS 50ML 50 ML IV ONE (14:32)
[2020-12-22] MEDS ORDERED: SODIUM CHLORIDE 0.9% 250ML 250 ML ONE (14:57)
[2020-12-22] MEDS ORDERED: LIDOCAINE HCL 1% LOCAL INJ 20 ML VIAL ONE (14:57)
[2020-12-22] MEDS: METOPROLOL SUCCINATE 50 MG TAB XL PO SCH (22:00)
[2020-12-22] MEDS: CINACALCET 30 MG TAB PO SCH (22:00)
[2020-12-22] MEDS: TERAZOSIN HCL 1 MG CAP PO SCH (22:00)
[2020-12-22] MEDS: ATORVASTATIN 10 MG TAB PO SCH (22:00)
[2020-12-22] MEDS: MIRTAZAPINE 15 MG TAB PO SCH (22:20)
[2020-12-23] VITALS (8 sets, daily range): BP systolic 146–183; BP diastolic 40–110
[2020-12-23] MEDS: LEVOTHYROXINE SODIUM 75 MCG TAB PO SCH (06:24)
[2020-12-23] MEDS: PANTOPRAZOLE SOD 40 MG TABEC PO SCH (07:56)
[2020-12-23] MEDS: NIFEDIPINE CR 30 MG TAB PO SCH ×2 (07:57→16:56)
[2020-12-23] MEDS: CALCITRIOL 0.25 MCG CAP PO SCH (09:00)
[2020-12-23] MEDS: FAMOTIDINE 20 MG TAB PO SCH (09:00)
[2020-12-23] MEDS ORDERED: LORAZEPAM 0.5 MG TAB PO PRN (19:45)
[2020-12-23] MEDS: METOPROLOL SUCCINATE 50 MG TAB XL PO SCH (21:00)
[2020-12-23] MEDS: TERAZOSIN HCL 1 MG CAP PO SCH (21:00)
[2020-12-23] MEDS: MIRTAZAPINE 15 MG TAB PO SCH ×2 (21:14→23:30)
[2020-12-23] MEDS: CINACALCET 30 MG TAB PO SCH (21:14)
[2020-12-23] MEDS: ATORVASTATIN 10 MG TAB PO SCH ×2 (21:14→23:30)
[2020-12-24] VITALS (8 sets, daily range): BP systolic 91–158; BP diastolic 37–94
[2020-12-24] MEDS: LEVOTHYROXINE SODIUM 75 MCG TAB PO SCH (06:00)
[2020-12-24 06:17] LABS: BASOPHILS % 0.5 % (0.0-1.0); EOSINOPHILS # (AUTO) 0.2 (0.0-0.4); EOSINOPHILS % 3.7 % (0.0-6.0); HEMATOCRIT 35.8 % (34.2-44.1); HEMOGLOBIN 11.6 g/dL (12.0-16.0); LYMPHOCYTES # (AUTO) 1.2 (1.0-3.2); LYMPHOCYTES % 19.4 % (18.0-39.1); MEAN CORPUSCULAR HEMOGLOBIN 28.6 pg (28-32); MEAN CORPUSCULAR HGB CONC 32.4 g/dL (31-35); MEAN CORPUSCULAR VOLUME 88.4 fL (81-99); MONOCYTES # (AUTO) 0.7 (0.2-0.8); MONOCYTES % 11.6 % (4.4-11.3); NEUTROPHILS % 64.3 % (38.7-80.0); PLATELET COUNT 83 x10e3/uL (140-360); RED BLOOD COUNT 4.05 x10e6/uL (3.6-5.1); RED CELL DISTRIBUTION WIDTH 13.2 % (11.7-14.4)
[2020-12-24 06:58] LABS: ANION GAP 14.2 mmol/L (8-16); CALCIUM 8.3 mg/dL (8.4-10.2); CREATININE, SERUM 6.24 mg/dL (0.57-1.11); POTASSIUM 4.2 mmol/L (3.5-5.1)
[2020-12-24] MEDS: PANTOPRAZOLE SOD 40 MG TABEC PO SCH (07:30)
[2020-12-24] MEDS: NIFEDIPINE CR 30 MG TAB PO SCH ×2 (09:00→16:58)
[2020-12-24] MEDS: CALCITRIOL 0.25 MCG CAP PO SCH (09:00)
[2020-12-24] MEDS: FAMOTIDINE 20 MG TAB PO SCH (09:00)
[2020-12-24] MEDS ORDERED: BUPIVACAINE HCL 0.5% INJ 30 ML VIAL INJ ONE (13:10)
[2020-12-24] MEDS ORDERED: SODIUM CHLORIDE 0.9% 500ML 500 ML ONE (13:32)
[2020-12-24] MEDS ORDERED: POVIDONE IODINE 0.05% 0.05 % ML PO ONE (13:37)
[2020-12-24] MEDS ORDERED: PROPOFOL IV EMULSION 10 MG/ML 20 ML VIAL ONE (13:37)
[2020-12-24] MEDS ORDERED: DEXAMETHASONE SOD PHOS INJ 4 MG/ML VIAL ONE (13:37)
[2020-12-24] MEDS ORDERED: EPHEDRINE SULFATE INJ 50 MG/ML VIAL ONE (13:37)
[2020-12-24] MEDS ORDERED: ROCURONIUM BROMIDE 10 MG/ML 5ML VIAL IV ONE (13:37)
[2020-12-24] MEDS ORDERED: ONDANSETRON HCL INJ 2MG/ML 2ML 2 MG/ML VIAL ONE (13:37)
[2020-12-24] MEDS ORDERED: SEVOFLURANE INHAL SOLN 250 ML PEN BTL ONE (13:37)
[2020-12-24] MEDS ORDERED: LIDOCAINE HCL 2% LOCAL INJ 5 ML SDV VIAL INJ ONE (13:37)
[2020-12-24] MEDS ORDERED: SUGAMMADEX SODIUM 200 MG/2 ML VIAL IV ONE (14:25)
[2020-12-24] MEDS: METOPROLOL SUCCINATE 50 MG TAB XL PO SCH (21:00)
[2020-12-24] MEDS: TERAZOSIN HCL 1 MG CAP PO SCH (21:00)
[2020-12-24] MEDS: CINACALCET 30 MG TAB PO SCH (23:30)
[2020-12-25] VITALS: BP 126/54
[2020-12-25 04:00] VITALS: BP 150/49
[2020-12-25 04:52] LABS: BASOPHILS # (AUTO) 0.1 (0.0-0.1); BASOPHILS % 0.6 % (0.0-1.0); EOSINOPHILS # (AUTO) 0.1 (0.0-0.4); HEMOGLOBIN 11.8 g/dL (12.0-16.0); LYMPHOCYTES # (AUTO) 1.3 (1.0-3.2); LYMPHOCYTES % 15.9 % (18.0-39.1); MEAN CORPUSCULAR HEMOGLOBIN 28.2 pg (28-32); MEAN CORPUSCULAR HGB CONC 31.9 g/dL (31-35); MEAN CORPUSCULAR VOLUME 88.5 fL (81-99); MONOCYTES # (AUTO) 0.9 (0.2-0.8); MONOCYTES % 10.8 % (4.4-11.3); NEUTROPHILS # (AUTO) 5.7 (2.1-6.9); NEUTROPHILS % 71.4 % (38.7-80.0); PLATELET COUNT 93 x10e3/uL (140-360); RED BLOOD COUNT 4.18 x10e6/uL (3.6-5.1); RED CELL DISTRIBUTION WIDTH 13.2 % (11.7-14.4)
[2020-12-25 05:12] LABS: ANION GAP 15.3 mmol/L (8-16); CREATININE, SERUM 3.46 mg/dL (0.57-1.11); POTASSIUM 4.3 mmol/L (3.5-5.1)
[2020-12-25] MEDS: LEVOTHYROXINE SODIUM 75 MCG TAB PO SCH (06:08)
[2020-12-25 07:50] VITALS: BP 145/39
[2020-12-25 08:27] VITALS: BP 145/39
[2020-12-25] MEDS: FAMOTIDINE 20 MG TAB PO SCH (08:44)
[2020-12-25] MEDS: PANTOPRAZOLE SOD 40 MG TABEC PO SCH (08:44)
[2020-12-25] MEDS: CALCITRIOL 0.25 MCG CAP PO SCH (08:45)
[2020-12-25] MEDS: NIFEDIPINE CR 30 MG TAB PO SCH (08:45)
[2020-12-25 11:40] VITALS: BP 126/52
== END 2020-12-25 14:56 | disposition home or self-care (01) | DRG 907 ==
LOC: ER 10:10 → ERHOLD 11:28 → MED/SURG 12:32
PROVIDERS: ADMIT Internal Medicine; ATTEND Internal Medicine
PROC: 02HV33Z Insertion of Infusion Device into Superior Vena Cava, Percutaneous Approach (ICD-10-PCS; 2020-12-19)
PROC: B548ZZA Ultrasonography of Superior Vena Cava, Guidance (ICD-10-PCS; 2020-12-19)
PROC: 5A1D70Z Performance of Urinary Filtration, Intermittent, Less than 6 Hours Per Day (ICD-10-PCS; 2020-12-19)
PROC: 5A1D70Z Performance of Urinary Filtration, Intermittent, Less than 6 Hours Per Day (ICD-10-PCS; 2020-12-20)
PROC: 0WPG03Z Removal of Infusion Device from Peritoneal Cavity, Open Approach (ICD-10-PCS; principal; 2020-12-20 07:00)
PROC: 02PA33Z Removal of Infusion Device from Heart, Percutaneous Approach (ICD-10-PCS; 2020-12-22)
PROC: 02H633Z Insertion of Infusion Device into Right Atrium, Percutaneous Approach (ICD-10-PCS; 2020-12-22)
PROC: 0JH63XZ Insertion of Tunneled Vascular Access Device into Chest Subcutaneous Tissue and Fascia, Percutaneous Approach (ICD-10-PCS; 2020-12-22)
PROC: B5181ZA Fluoroscopy of Superior Vena Cava using Low Osmolar Contrast, Guidance (ICD-10-PCS; 2020-12-22)
PROC: 5A1D70Z Performance of Urinary Filtration, Intermittent, Less than 6 Hours Per Day (ICD-10-PCS; 2020-12-22)
PROC: 0WHG43Z Insertion of Infusion Device into Peritoneal Cavity, Percutaneous Endoscopic Approach (ICD-10-PCS; 2020-12-24)
PROC: 5A1D70Z Performance of Urinary Filtration, Intermittent, Less than 6 Hours Per Day (ICD-10-PCS; 2020-12-24)
DX: T85.611A Breakdown (mechanical) of intraperitoneal dialysis catheter, initial encounter (principal); N18.6 End stage renal disease; E43 Unspecified severe protein-calorie malnutrition; E87.2 Acidosis; R64 Cachexia; Z68.1 Body mass index [BMI] 19.9 or less, adult; I13.11 Hypertensive heart and chronic kidney disease without heart failure, with stage 5 chronic kidney disease, or end stage renal disease; T85.631A Leakage of intraperitoneal dialysis catheter, initial encounter; Z99.2 Dependence on renal dialysis; E83.52 Hypercalcemia; Z86.73 Personal history of transient ischemic attack (TIA), and cerebral infarction without residual deficits; D64.9 Anemia, unspecified; Z80.1 Family history of malignant neoplasm of trachea, bronchus and lung; D63.1 Anemia in chronic kidney disease; E03.9 Hypothyroidism, unspecified; Z20.822 Contact with and (suspected) exposure to COVID-19; D69.6 Thrombocytopenia, unspecified
CPT/HCPCS: 36415; 36556; 36558; 74470; 76937; 77001; 80048; 80053; 82948; 83970; 84100; 85025; 85610; 86704; 86706; 87350; 90962; 93005; 99152; 99153; 99284; C1752; C1769; J0690; J1100; J1580; J1644; J2001; J2250; J2405; J3010; J3370; J7030; J7040; J7050; U0002

== ENCOUNTER 2021-03-10 14:05 | Emergency (ER) | payer MEDICARE ==
[~2021-03-10] VITALS: Ht 162.6 cm; Wt 47.0 kg
[2021-03-10] MEDS ORDERED: ONDANSETRON HCL INJ 2MG/ML 2ML 2 MG/ML VIAL IV PRN (14:30)
[2021-03-10] MEDS ORDERED: ASPIRIN 81 MG CHEW TAB PO ONE (14:30)
[2021-03-10] MEDS ORDERED: ISOSORBIDE DINI40 M1 PO (15:36)
== END 2021-03-10 15:50 | disposition home or self-care (01) ==
LOC: FSED 14:15
DX: R07.9 Chest pain, unspecified (principal); I16.0 Hypertensive urgency; I12.0 Hypertensive chronic kidney disease with stage 5 chronic kidney disease or end stage renal disease; N18.6 End stage renal disease; Z99.2 Dependence on renal dialysis; E78.5 Hyperlipidemia, unspecified; D64.9 Anemia, unspecified; R94.31 Abnormal electrocardiogram [ECG] [EKG]
CPT/HCPCS: 71046; 80053; 82553; 84484; 85025; 93005; 99284

== ENCOUNTER 2021-04-22 11:10 | Emergency (ER) | payer MEDICARE ==
[~2021-04-22] VITALS: Ht 162.6 cm; Wt 46.7 kg
[~2021-04-22 11:10] MED LIST changes: +ISOSORBIDE DINI40 M1 PO
[2021-04-22] MEDS ORDERED: SODIUM CHLORIDE 0.9% 500ML 500 ML IV ONE (13:30)
[2021-04-22 13:33] LABS: BASOPHILS # (AUTO) 0.1 (0.0-0.1); BASOPHILS % 0.9 % (0.0-1.0); EOSINOPHILS # (AUTO) 0.2 (0.0-0.4); EOSINOPHILS % 2.6 % (0.0-6.0); HEMATOCRIT 34.3 % (34.2-44.1); HEMOGLOBIN 10.4 g/dL (12.0-16.0); LYMPHOCYTES # (AUTO) 0.8 (1.0-3.2); LYMPHOCYTES % 10.2 % (18.0-39.1); MEAN CORPUSCULAR HEMOGLOBIN 28.3 pg (28-32); MEAN CORPUSCULAR HGB CONC 30.3 g/dL (31-35); MEAN CORPUSCULAR VOLUME 93.2 fL (81-99); MONOCYTES # (AUTO) 0.7 (0.2-0.8); MONOCYTES % 8.7 % (4.4-11.3); NEUTROPHILS % 77.1 % (38.7-80.0); PLATELET COUNT 233 x10e3/uL (140-360); RED BLOOD COUNT 3.68 x10e6/uL (3.6-5.1)
[2021-04-22 14:15] LABS: CLARITY,URINE CLEAR (CLEAR); COLOR,URINE YELLOW (YELLOW); KETONES,URINE NEGATIVE (NEGATIVE); LEUKOCYTE ESTERASE ,URINE NEGATIVE (NEGATIVE); NITRITE,URINE NEGATIVE (NEGATIVE); PROTEIN,URINE DIPSTICK >=300 (NEGATIVE); URINE UROBILINOGEN 0.2 mg/dL (0.2 - 1)
[2021-04-22 14:28] LABS: AMORPHOUS SEDIMENT,URINE MODERATE (FEW); BACTERIA,URINE FEW /HPF; RBC,URINE 0-5 /HPF (0-5)
[2021-04-22 14:44] LABS: CREATINE KINASE MB 0.9 ng/mL (0-5.0)
[2021-04-22 14:49] LABS: ALBUMIN 2.8 g/dL (3.5-5.0); ALBUMIN/GLOBULIN RATIO 0.8 (0.8-2.0); ANION GAP 26.1 mmol/L (8-16); CREATININE, SERUM 8.54 mg/dL (0.57-1.11); MAGNESIUM 1.4 MG/DL (1.3-2.1); POTASSIUM 3.1 mmol/L (3.5-5.1)
[2021-04-22 14:50] LABS: CALCIUM 6.6 mg/dL (8.4-10.2)
[2021-04-22 16:00] VITALS: BP 121/62
== END 2021-04-22 16:01 | disposition home or self-care (01) ==
LOC: ER 11:55
DX: E86.0 Dehydration (principal); I12.0 Hypertensive chronic kidney disease with stage 5 chronic kidney disease or end stage renal disease; N18.6 End stage renal disease; Z99.2 Dependence on renal dialysis; E78.5 Hyperlipidemia, unspecified; D64.9 Anemia, unspecified; Z86.73 Personal history of transient ischemic attack (TIA), and cerebral infarction without residual deficits; Z20.822 Contact with and (suspected) exposure to COVID-19
CPT/HCPCS: 36415; 71045; 80053; 81001; 82550; 82553; 83605; 83735; 83880; 84484; 85025; 87040; 87071; 87086; 87205; 93005; 99284; J7040; U0002

== ENCOUNTER 2021-08-10 20:24 | Inpatient (IN) | payer MEDICARE ==
[~2021-08-10] VITALS: Ht 162.6 cm; Wt 39.5 kg
[2021-08-10] MEDS ORDERED: NITROGLYCERIN 2% OINT 1 GM PKT TOP STA (20:46)
[2021-08-10] MEDS ORDERED: ONDANSETRON HCL INJ 2MG/ML 2ML 2 MG/ML VIAL IV STA (21:51)
[2021-08-10] MEDS ORDERED: ONDANSETRON HCL INJ 2MG/ML 2ML 2 MG/ML VIAL ONE (22:04)
[2021-08-10 22:08] LABS: BASOPHILS # (AUTO) 0.1 (0.0-0.1); BASOPHILS % 0.3 % (0.0-1.0); EOSINOPHILS # (AUTO) 0.1 (0.0-0.4); EOSINOPHILS % 0.2 % (0.0-6.0); HEMATOCRIT 34.4 % (34.2-44.1); HEMOGLOBIN 10.6 g/dL (12.0-16.0); LYMPHOCYTES # (AUTO) 1.2 (1.0-3.2); LYMPHOCYTES % 5.1 % (18.0-39.1); MEAN CORPUSCULAR HEMOGLOBIN 28.6 pg (28-32); MEAN CORPUSCULAR HGB CONC 30.8 g/dL (31-35); MONOCYTES # (AUTO) 1.6 (0.2-0.8); NEUTROPHILS # (AUTO) 19.7 (2.1-6.9); NEUTROPHILS % 86.7 % (38.7-80.0); PLATELET COUNT 279 x10e3/uL (140-360); RED CELL DISTRIBUTION WIDTH 17.4 % (11.7-14.4)
[2021-08-10 22:25] LABS: ALBUMIN/GLOBULIN RATIO 0.4 (0.8-2.0); ANION GAP 19.8 mmol/L (8-16); CALCIUM 9.2 mg/dL (8.4-10.2); CREATININE, SERUM 6.52 mg/dL (0.57-1.11)
[2021-08-10 22:28] LABS: POTASSIUM 2.8 mmol/L (3.5-5.1)
[2021-08-10 22:31] LABS: CREATINE KINASE MB 1.7 ng/mL (0-5.0)
[2021-08-10] MEDS ORDERED: ONDANSETRON HCL INJ 2MG/ML 2ML 2 MG/ML VIAL IV PRN (22:45)
[2021-08-10] MEDS ORDERED: PIPERACILLIN/TAZOBACTAM 3.375 GM in SODIUM CHLORIDE 0.9% 50ML 50 ML IV SCH (22:45)
[2021-08-10] MEDS: Morphine 4mg Syringe 4 MG/ML INJ IV PRN (23:00)
[2021-08-10] MEDS ORDERED: PIPERACILLIN/TAZOBACTAM 3.375 GM in SODIUM CHLORIDE 0.9% 50ML 50 ML IV ONE (23:00)
[2021-08-11] MEDS ORDERED: DIPHENHYDRAMINE HCL INJ 50 MG/ML VIAL IV STA (01:06)
[2021-08-11] MEDS ORDERED: DIPHENHYDRAMINE HCL 25 MG CAP ONE (01:06)
[2021-08-11] MEDS ORDERED: DIPHENHYDRAMINE HCL 25 MG CAP PO ONE ×2 (01:15→03:30)
[2021-08-11 05:41] LABS: BASOPHILS # (AUTO) 0.1 (0.0-0.1); BASOPHILS % 0.3 % (0.0-1.0); EOSINOPHILS # (AUTO) 0.1 (0.0-0.4); EOSINOPHILS % 0.6 % (0.0-6.0); HEMATOCRIT 29.5 % (34.2-44.1); HEMOGLOBIN 9.3 g/dL (12.0-16.0); LYMPHOCYTES # (AUTO) 1.3 (1.0-3.2); LYMPHOCYTES % 7.1 % (18.0-39.1); MEAN CORPUSCULAR HEMOGLOBIN 29.4 pg (28-32); MEAN CORPUSCULAR HGB CONC 31.5 g/dL (31-35); MEAN CORPUSCULAR VOLUME 93.4 fL (81-99); MONOCYTES # (AUTO) 1.7 (0.2-0.8); MONOCYTES % 8.9 % (4.4-11.3); NEUTROPHILS # (AUTO) 15.6 (2.1-6.9); NEUTROPHILS % 82.6 % (38.7-80.0); PLATELET COUNT 216 x10e3/uL (140-360); RED BLOOD COUNT 3.16 x10e6/uL (3.6-5.1); RED CELL DISTRIBUTION WIDTH 17.6 % (11.7-14.4)
[2021-08-11] MEDS ORDERED: PIPERACILLIN/TAZOBACTAM 2.25 GM in SODIUM CHLORIDE 0.9% 50ML 50 ML IV SCH (06:00)
[2021-08-11 06:02] LABS: ALBUMIN 1.7 g/dL (3.5-5.0); ALBUMIN/GLOBULIN RATIO 0.4 (0.8-2.0); ANION GAP 18.9 mmol/L (8-16); CALCIUM 8.4 mg/dL (8.4-10.2); CREATININE, SERUM 6.49 mg/dL (0.57-1.11)
[2021-08-11 06:15] LABS: POTASSIUM 2.9 mmol/L (3.5-5.1)
[2021-08-11 06:47] LABS: CREATINE KINASE MB 1.4 ng/mL (0-5.0)
[2021-08-11] MEDS ORDERED: POTASSIUM CHLORIDE 20 MEQ TAB CR PO STA (09:30)
[2021-08-11] MEDS: PIPERACILLIN/TAZOBACTAM 2.25 GM in SODIUM CHLORIDE 0.9% 50ML 50 ML IV SCH ×2 (09:45→17:04)
[2021-08-11 14:00] VITALS: BP 148/44
[2021-08-11 15:32] VITALS: BP 151/40
[2021-08-11 15:59] LABS: CREATINE KINASE MB 1.4 ng/mL (0-5.0)
[2021-08-11] MEDS ORDERED: SODIUM CHLORIDE 0.9% 100 ML ONE (16:36)
[2021-08-11] MEDS: MUPIROCIN 2% OINT 22 GM TUBE TOP SCH (20:00)
[2021-08-11] MEDS: ATORVASTATIN 20 MG TAB PO SCH (20:19)
[2021-08-11 20:29] VITALS: BP 136/52
[2021-08-11 21:00] VITALS: BP 136/52
[2021-08-11 23:52] VITALS: BP 136/52
[2021-08-12] VITALS (7 sets, daily range): BP systolic 120–133; BP diastolic 4–70
[2021-08-12] MEDS: PIPERACILLIN/TAZOBACTAM 2.25 GM in SODIUM CHLORIDE 0.9% 50ML 50 ML IV SCH ×3 (00:09→17:17)
[2021-08-12 04:59] LABS: BASOPHILS # (AUTO) 0.1 (0.0-0.1); BASOPHILS % 0.3 % (0.0-1.0); EOSINOPHILS # (AUTO) 0.2 (0.0-0.4); EOSINOPHILS % 0.9 % (0.0-6.0); HEMATOCRIT 30.8 % (34.2-44.1); HEMOGLOBIN 9.5 g/dL (12.0-16.0); LYMPHOCYTES # (AUTO) 0.8 (1.0-3.2); LYMPHOCYTES % 4.9 % (18.0-39.1); MEAN CORPUSCULAR HEMOGLOBIN 29.1 pg (28-32); MEAN CORPUSCULAR HGB CONC 30.8 g/dL (31-35); MEAN CORPUSCULAR VOLUME 94.2 fL (81-99); MONOCYTES # (AUTO) 1.5 (0.2-0.8); MONOCYTES % 8.9 % (4.4-11.3); NEUTROPHILS # (AUTO) 14.5 (2.1-6.9); NEUTROPHILS % 84.4 % (38.7-80.0); PLATELET COUNT 235 x10e3/uL (140-360); RED BLOOD COUNT 3.27 x10e6/uL (3.6-5.1); RED CELL DISTRIBUTION WIDTH 17.3 % (11.7-14.4)
[2021-08-12 05:23] LABS: ANION GAP 18.7 mmol/L (8-16); CREATININE, SERUM 6.02 mg/dL (0.57-1.11)
[2021-08-12 05:27] LABS: POTASSIUM 2.7 mmol/L (3.5-5.1)
[2021-08-12 05:43] LABS: CHOL/HDL RATIO 3.7 (3.0-3.6)
[2021-08-12 06:04] LABS: THYROID STIMULATING HORMONE 1.406 uIU/mL (0.350-4.940)
[2021-08-12] MEDS ORDERED: POTASSIUM CHLORIDE 20 MEQ TAB CR PO STA (06:10)
[2021-08-12] MEDS: CLOPIDOGREL BISULFATE 75 MG TAB PO SCH (08:14)
[2021-08-12] MEDS: ASPIRIN 81 MG ENTERIC COATED PO SCH (08:14)
[2021-08-12] MEDS: MUPIROCIN 2% OINT 22 GM TUBE TOP SCH (08:15)
[2021-08-12] MEDS: AMLODIPINE BESYLATE 5 MG TAB PO SCH (08:16)
[2021-08-12] MEDS: METOPROLOL SUCCINATE 50 MG TAB XL PO SCH (08:16)
[2021-08-12] MEDS ORDERED: POTASSIUM CHLORIDE 20MEQ/100ML 200 ML IV ONE (10:45)
[2021-08-12] MEDS ORDERED: ONDANSETRON HCL 4 MG ORAL DISINTEGRATING TAB PO PRN (11:15)
[2021-08-12] MEDS ORDERED: SODIUM CHLORIDE 0.9% 500ML 500 ML ONE (11:57)
[2021-08-12] MEDS: Morphine 4mg Syringe 4 MG/ML INJ IV PRN (12:07)
[2021-08-12] MEDS: ATORVASTATIN 20 MG TAB PO SCH (21:23)
[2021-08-13] MEDS: PIPERACILLIN/TAZOBACTAM 2.25 GM in SODIUM CHLORIDE 0.9% 50ML 50 ML IV SCH ×2 (03:15→09:01)
[2021-08-13] MEDS: MUPIROCIN 2% OINT 22 GM TUBE TOP SCH ×2 (03:16→09:01)
[2021-08-13 05:47] VITALS: BP 107/44
[2021-08-13 06:17] LABS: BASOPHILS % 0.2 % (0.0-1.0); EOSINOPHILS # (AUTO) 0.2 (0.0-0.4); EOSINOPHILS % 1.2 % (0.0-6.0); HEMATOCRIT 29.7 % (34.2-44.1); HEMOGLOBIN 9.3 g/dL (12.0-16.0); LYMPHOCYTES % 6.4 % (18.0-39.1); MEAN CORPUSCULAR HEMOGLOBIN 29.3 pg (28-32); MEAN CORPUSCULAR HGB CONC 31.3 g/dL (31-35); MEAN CORPUSCULAR VOLUME 93.7 fL (81-99); MONOCYTES # (AUTO) 1.4 (0.2-0.8); MONOCYTES % 8.7 % (4.4-11.3); NEUTROPHILS # (AUTO) 13.3 (2.1-6.9); NEUTROPHILS % 83.1 % (38.7-80.0); PLATELET COUNT 233 x10e3/uL (140-360); RED BLOOD COUNT 3.17 x10e6/uL (3.6-5.1); RED CELL DISTRIBUTION WIDTH 17.2 % (11.7-14.4)
[2021-08-13 06:54] LABS: ALBUMIN 1.5 g/dL (3.5-5.0); ALBUMIN/GLOBULIN RATIO 0.4 (0.8-2.0); ALKALINE PHOSPHATASE 85 IU/L (40-150); ANION GAP 16.4 mmol/L (8-16); BLOOD UREA NITROGEN 29 mg/dL (7-26); BUN/CREATININE RATIO 5 (6-25); CALCIUM 8.5 mg/dL (8.4-10.2); CARBON DIOXIDE 25 mmol/L (22-29); CHLORIDE 99 mmol/L (98-107); CREATININE, SERUM 5.93 mg/dL (0.57-1.11); EST GLOMERULAR FILTRATION RATE 7 ML/MIN (60-); GLUCOSE 91 mg/dL (74-118); POTASSIUM 3.4 mmol/L (3.5-5.1); SODIUM 137 mmol/L (136-145)
[2021-08-13 07:20] LABS: ALANINE AMINOTRANSFERASE < 6 IU/L (0-55)
[2021-08-13 08:00] VITALS: BP 117/39
[2021-08-13 08:15] VITALS: BP 121/30
[2021-08-13] MEDS: AMLODIPINE BESYLATE 5 MG TAB PO SCH (09:00)
[2021-08-13] MEDS: METOPROLOL SUCCINATE 50 MG TAB XL PO SCH (09:00)
[2021-08-13] MEDS: CLOPIDOGREL BISULFATE 75 MG TAB PO SCH (09:01)
[2021-08-13] MEDS: ASPIRIN 81 MG ENTERIC COATED PO SCH (09:01)
[2021-08-13] MEDS ORDERED: POTASSIUM CHLORIDE 20MEQ/100ML 100 ML IV ONE (10:30)
[2021-08-13 12:03] VITALS: BP 128/40
[2021-08-13] MEDS ORDERED: AUGMENTIN 875-1 EACH PO (13:37)
[2021-08-13] MEDS ORDERED: Morphine 2mg Syringe 2 MG/ML SYR IV ONE (14:15)
== END 2021-08-13 14:37 | disposition home or self-care (01) | DRG 871 ==
LOC: ER 20:40 → ERHOLD 22:47 → IMCU 08-11 14:29 → MED/SURG3 08-12 16:05
PROVIDERS: ADMIT Internal Medicine; ATTEND Internal Medicine
PROC: 3E1M39Z Irrigation of Peritoneal Cavity using Dialysate, Percutaneous Approach (ICD-10-PCS; principal; 2021-08-11)
DX: A41.9 Sepsis, unspecified organism (principal); N18.6 End stage renal disease; I21.A1 Myocardial infarction type 2; E43 Unspecified severe protein-calorie malnutrition; E11.52 Type 2 diabetes mellitus with diabetic peripheral angiopathy with gangrene; I96 Gangrene, not elsewhere classified; I13.11 Hypertensive heart and chronic kidney disease without heart failure, with stage 5 chronic kidney disease, or end stage renal disease; N25.81 Secondary hyperparathyroidism of renal origin; Z68.1 Body mass index [BMI] 19.9 or less, adult; I99.8 Other disorder of circulatory system; I25.10 Atherosclerotic heart disease of native coronary artery without angina pectoris; E11.22 Type 2 diabetes mellitus with diabetic chronic kidney disease; Z99.2 Dependence on renal dialysis; D72.829 Elevated white blood cell count, unspecified; E87.6 Hypokalemia; E11.51 Type 2 diabetes mellitus with diabetic peripheral angiopathy without gangrene; E11.21 Type 2 diabetes mellitus with diabetic nephropathy; Z86.73 Personal history of transient ischemic attack (TIA), and cerebral infarction without residual deficits; E03.9 Hypothyroidism, unspecified; D63.1 Anemia in chronic kidney disease; I35.0 Nonrheumatic aortic (valve) stenosis
CPT/HCPCS: 36415; 71045; 80048; 80053; 80061; 82550; 82553; 83735; 83880; 84443; 84484; 85025; 86705; 86706; 87040; 87340; 93005; 93306; 93925; 94799; 99285; J2270; J2405; J2543; J3480; J7040; J7050; U0002